=== PATIENT | male | born 1945 | race Caucasian/White ===

== ENCOUNTER 2019-04-01 13:31 | Outpatient (REF) | payer MEDICARE, OTHER, SELFPAY ==
[2019-04-01 14:47] LABS: TSH (W/Ref FT4) 1.94 uIU/mL (0.358-3.74)
[2019-04-02 11:17] LABS: Lyme Ab w Rflx to Lyme Confirm Negative
== END 2019-04-01 13:51 ==
LOC: NCHCN 13:31
PROVIDERS: PCP Family Medicine; Visit Provider Family Medicine
DX: R53.83 Other fatigue (principal); W57.XXXA Bitten or stung by nonvenomous insect and other nonvenomous arthropods, initial encounter; T14.8XXA Other injury of unspecified body region, initial encounter
CPT/HCPCS: 84443; 86618

== ENCOUNTER 2019-05-22 12:26 | Emergency (ER) | payer MEDICARE, OTHER, SELFPAY ==
[2019-05-22 12:30] VITALS: BP 161/96; PULSE 77; RESP 14; TEMP 36.2; O2SAT 97
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
[2019-05-22] MEDS: Bacitracin 30 GM TUBE TP (12:43)
[2019-05-22] MEDS: HYDROcodone 5/Acetaminophen 325 TAB PO (12:43)
--- NOTE | 2019-05-22 14:03 | NUR.NOTE ---
Nursing Note: Wound cleaned with sterile soap and water. Excess skin and debris removed. Wound dried, Bacitracin applied followed by sterile Vaseline gauze, sterile ABD pads, and cling. Pt instructed on the use of antibiotic ointment and re-dressing the wound. PT verbalized understanding. DC instructions provided along with prescriptions.
== END 2019-05-22 14:00 | disposition home or self-care (01) ==
PROVIDERS: Emergency Provider Emergency Medicine; PCP Family Medicine
DX: T24.311A Burn of third degree of right thigh, initial encounter (principal); X04.XXXA Exposure to ignition of highly flammable material, initial encounter
CPT/HCPCS: 16020

== ENCOUNTER 2020-11-30 16:25 | Outpatient (REF) | payer MEDICARE, OTHER, SELFPAY ==
[2020-11-30 15:48] LABS: Hemoglobin A1C 5.7 % (<5.7)
[2020-11-30 15:56] LABS: BUN 15 mg/dL (7-18); CREATININE 0.9 mg/dL (0.70-1.30); Calcium 8.9 mg/dL (8.5-10.1); Calculated LDL 147 mg/dL (<100); Chloride 106 mmol/L (98-107); Cholesterol 248 mg/dL (<200); Glucose 109 mg/dL (74-106); HDL Cholesterol 77 mg/dL (40-60); Potassium 3.8 mmol/L (3.5-5.1); Sodium 142 mmol/L (136-145); Triglyceride 120 mg/dL (<150)
[2020-12-01 09:47] LABS: Hepatitis C Ab w Rflx HCV PCR Negative (Negative)
== END 2020-11-30 16:26 | disposition home or self-care (01) ==
LOC: NCHCN 16:25
PROVIDERS: PCP Family Medicine; Visit Provider Family Medicine
DX: R73.01 Impaired fasting glucose (principal); E78.5 Hyperlipidemia, unspecified; Z11.59 Encounter for screening for other viral diseases
CPT/HCPCS: 80048; 80061; 86803; 83036

== ENCOUNTER 2021-09-14 11:13 | Outpatient (REF) | payer MEDICARE, OTHER, SELFPAY ==
[2021-09-14 16:05] LABS: Hemoglobin A1C 5.5 % (<5.7)
[2021-09-14 16:07] LABS: Anion Gap 10.2 mmol/L (3-11); BUN 20 mg/dL (7-18); CO2 24.8 mmol/L (21.0-32.0); CREATININE 0.8 mg/dL (0.70-1.30); Calcium 9.1 mg/dL (8.5-10.1); Chloride 106 mmol/L (98-107); Glucose 114 mg/dL (74-106); Potassium 4.2 mmol/L (3.5-5.1); Sodium 141 mmol/L (136-145)
== END 2021-09-14 11:14 | disposition home or self-care (01) ==
LOC: NCHCN 11:13
PROVIDERS: PCP Family Medicine; Visit Provider Family Medicine
DX: R73.03 Prediabetes (principal); I10 Essential (primary) hypertension; Z00.00 Encounter for general adult medical examination without abnormal findings
CPT/HCPCS: 80048; 83036

== ENCOUNTER 2023-12-11 17:36 | Outpatient (REF) | payer MEDICARE, OTHER, SELFPAY ==
[2023-12-11 18:00] LABS: HCT 36.6 % (40.0-50.0); MCH 29.1 pg (27.0-33.0); MCHC 32.8 % (32.0-36.0); MCV 89 fL (80-95); MPV 9.8 fL (8.0-11.0); Platelet Count 251 10^3/uL (130-400); RBC 4.12 10^6/uL (4.36-5.78); RDW 14.4 % (11.8-14.1); RDW-SD 46.5 fL; WBC 6.41 10^3/uL (4.4-10.8)
[2023-12-11 18:42] LABS: Ferritin 54 ng/mL (26-388); Vitamin B12 172 pg/mL (193-986)
== END 2023-12-11 17:37 | disposition home or self-care (01) ==
LOC: NCHCN 17:36
PROVIDERS: PCP Family Medicine; Visit Provider Family Medicine
DX: D50.9 Iron deficiency anemia, unspecified (principal); E53.8 Deficiency of other specified B group vitamins
CPT/HCPCS: 85027; 82607; 82728

== ENCOUNTER 2024-06-12 16:14 | Outpatient (REF) | payer MEDICARE, OTHER, SELFPAY ==
[2024-06-12 19:27] LABS: HCT 36.1 % (40.0-50.0); HGB 11.2 g/dL (13.5-17.5); MCH 28.7 pg (27.0-33.0); MCV 93 fL (80-95); MPV 9.8 fL (8.0-11.0); Platelet Count 394 10^3/uL (130-400); RDW 14.7 % (11.8-14.1); RDW-SD 49.8 fL; WBC 10.95 10^3/uL (4.4-10.8)
[2024-06-12 20:06] LABS: Vitamin B12 1616 pg/mL (193-986)
[2024-06-17 10:21] LABS: Methylmalonic Acid 0.18 nmol/mL (<=0.40)
== END 2024-06-12 16:15 | disposition home or self-care (01) ==
LOC: NCHCN 16:14
PROVIDERS: PCP Family Medicine; Visit Provider Family Medicine
DX: E53.9 Vitamin B deficiency, unspecified (principal)
CPT/HCPCS: 80186; 85027; 82607

== ENCOUNTER 2024-09-11 15:15 | Outpatient (REF) | payer MEDICARE, OTHER, SELFPAY ==
--- OUTSIDE RECORDS SUMMARY | 2024-09-11 15:18 | XMS_ITS | Encounter Summary ---
Author Organization [place] [address] Care Team Providers Care Preschool Program Director Name Role Phone Kennedi Shaver MD Primary Care Provider [phone] Encounter Details Date Type Department Care Team (Latest Contact Info) Description 07/21/2024 Travel Social History Tobacco Use Types Packs/Day Years Used Date Smoking Tobacco: Former Cigarettes 1977 Smokeless Tobacco: Never Alcohol Use Standard Drinks/Week Comments Yes 14 (1 standard drink = 0.6 oz pu re alcohol) 1 drink a day IPV Inpatient Questions Answer Date Recorded Does Anyone Try to Keep You From Having Contact with Others or Doing Things Outside Your Home? no 05/29/2024 Feels Threatened by Someone no 05/02 Feels Unsafe at Home or Work/School no 05/29/2024 Physical Signs of Abuse Present no 05/29/2024 Sex and Gender Information Value Date Recorded Sex Assigned at Not on file Gender Identity Not on file Sexual Orientation Not on file documented as of this encounter Plan of Treatment Upcoming Encounters Date Type Department Care Team (Latest Contact Info) Description 09/29/2024 4:30 PM [facility] Hospital [facility] [place] [phone] Lizet Wilkes MD [facility] [place] [address] 09/29/2024 4:30 PM EST - 09/29/2024 5:00 PM EST Surgery Gastroenterology at [place] [phone] Lizet Wilkes MD [facility] [place] [address] EGD, UPPER GI ENDOSCOPY (WRVU 2.09) 11/09/2024 10:00 AM EST Laboratory Appointment Lab at [facility] Hematology Oncology [address] [place], [place] [phone] 11/09/2024 11:00 AM EST Office Visit Hematology and Oncology at [place] [phone] Faith Caba MD [facility] DR HEMATOLOGY [place] [address] 11/09/2024 12:00 PM EST Appointment Hematology [place] [phone] Scheduled Procedures Name Priority Associated Diagnoses Date/Ti me EGD, UPPER GI ENDOSCOPY (WRVU 2.09) Gastroesophageal reflux disease with esophagitis, unspecified whether hemorrhage 09/29/2024 4:30 PM EST documented as of this encounter Goals Goal Patient Goal Type Associated Problems Recent Progress Patient-Stated? Author [facility] Medication Compliance and Understanding Patient Facing Action Plan Curly Nicolas, [facility] Note: The patient? s goal is to continue positive results of oral chemotherapy by maintaining improved labs PSA or stable scans in clinic for the upcoming year. documented as of this encounter Visit Diagnoses Not on filedocumented in this encounter Care Teams Preschool Program Director Relationship Specialty Start Date End Date Kennedi Shaver MD [facility] [address] [place] [address] PCP - General Family Medicine 06/25/24 documented as of this encounter
--- OUTSIDE RECORDS SUMMARY | 2024-09-11 15:18 | XMS_ITS | Encounter Summary ---
Author Organization [facility] [place] [address] Care Team Providers Care Wax Coating Machine Tender Name Role Phone Kennedi Sahver MD Primary Care Provider [phone] Reason for Visit * Reason Comments Follow-up Encounter Details Date Type Department Care Team (Late st Contact Info) Description 04/28/2024 2:30 PM EDT Office Visit Hematology [place] [phone] HEMATOLOGY AND ONCOLOGY [place], [place] [id number] Neoplasm of prostate, 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; Androgen deprivation therapy; Osteopenia, unspecified location; Anemia, unspecified type Social History Tobacco Use Types Packs/Day Years Used Date Smoking Tobacco: Former Cigarettes 1977 Smokeless Tobacco: Never Alcohol Use Standard Drinks/Week Comments Yes 14 (1 standard drink = 0.6 oz pu re alcohol) 1 drink a day [facility] Inpatient Questions Answer Date Recorded Does Anyone Try to Keep You From Having Contact with Others or Doing Things Outside Your Home? no 12/19/2022 Feels Threatened by Someone Not on file 11/29 Feels Unsafe at Home Not on file 12/19/2022 Physical Signs of Abuse Present Not on file 12/19/2022 Sex and Gender Information Value Date Recorded Sex Assigned at Not on file Gender Identity Not on file Sexual Orientation Not on file documented as of this encounter Last Filed Vital Signs Vital Sign Reading Time Taken Comments Blood Pressure 122/60 04/28/2024 2:22 PM EDT Pulse 89 04/28/2024 2:22 PM EDT Temperature 37.1 ??C (98.8 ??F) 04/28/2024 2:22 PM ED T Respiratory Rate 18 04/28/2024 2:22 PM EDT Oxygen Saturation 98% 04/28/2024 2:22 PM EDT Inhaled Oxygen Concentration - - Weight 80.5 kg (177 lb 7.5 oz) 04/28/2024 2:22 P M EDT Height 179.2 cm (5' 10.55) 04/28/2024 2:22 PM E DT Body Mass Index 25.07 04/28/2024 2:22 PM EDT documented in this encounter Progress Notes * Deborah Hector, BARTOLO - 04/28/2024 2:30 PM EDT Images from the original note were not included. [facility] Medicine Medical Oncology [place] [id number] ONCOLOGY FOLLOW UP VISIT DIAGNOSIS: Metastatic prostate cancer to bone and LNs ONCOLOGIC HX: P/w years of worsening LUTS initially responsive to finasteride but then progressed In December 2016, p/w L facial tingling and new painless subcut nodule Chest X-ray was normal CBC and on 01/18/2017 was normal US of neck on 02/05/17 showed multiple abnormal LNs largest 4.9 x 2.8 x 1.6 cm. MRi on 02/08/17 corroborated above with node cmpressing and slightly narrowed L jugular v. CT Chest/Abd/Pelvis on 02/19/17 showed enlarged aortocaval and para-aortic nodes (up to 3.9 x 2.8 cm), enlarged irregular prostate gland, and indeterminate small sclerotic focus in theposterior right iliac wing. PSA on 02/19/2016 was 207 (on finasteride). CBC and CMP was normal with AlkPhos 100 and Cr 0.98 Bone Scan on 02/26/17: intensely increased activity in the superolateral aspect of the right orbit, the distal aspect of the shaft of the right femur, and right seventh rib Level V node Bx on 03/04/2017: Clusters of epithelioid cells with NKX 3.1 immunoreactivity compatibe with metastatic prostate. TTF1 was negative Started on casodex and lupron injection 7.5 mg on 03/20/2017 Added abiraterone/pred 04/2017 PSA Ramesh is undetectable (achieved since 09/2018) DXA 10/10/21: osteopenia, referred to Endo 12/2023- stopped taking abiraterone/prednisone due to swallowing difficulties Chart review: > 10 minutes spent reviewing chart prior to visit -03/17/24 Upper endoscopy: large hiatal, esophagitis, and stricture at the GE junction were found, biopsies taken. Alli fundoplication intact. -Colonoscopy:severe diverticulosis from sigmoid to cecum, 5 polyps removed Path: DIAGNOSIS A - GE Junction bx, biopsy (Multiple): - Squamocolumnar junctional mucosa (cardia type) with ulceration, mild chronic inflammation and reactive changes. - There is no evidence of intestinal metaplasia. B - Esophageal bxs, biopsy (Multiple): - Ulcerative esophagitis. C - Ascending colon polyps 10mm, 6mm, resection: - Fragments of sessile serrated polyp/adenoma(s). D - Transverse colon polyp 5mm, 4mm, resection: - Fragments of tubular adenoma(s). E - Sigmoid colon polyp 4mm, resection: - Hyperplastic polyp. HPI: Chidi is here for f/u. He has been off the edmar/pred x 3 months now and is a bit anxious to see what his PSA is. Had the above GI work up. Is supposed to have f/u in a month. Taking pantoprazole BID now. Swallowing is still compromised, but if he's slow and focused, and washes food down, he's okay.No urinary or bowel concerns. Decreased energy. Takes Provigil, helps w/energy, allows him to choose when to write. 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 REVIEW OF SYSTEMS: -Both knees hurting more -Chronic R upper arm/shoulder pain, takes Tylenol, feels it's residual from COVID shot As noted above; all other systems were reviewed and found to be negative. PAST MEDICAL HISTORY: 1. As above 2. GERD and Sol's esophagus S/p Alli Fundoplication 3. ELevated fasting glusoce 4. S/p distant appendectomy 5. S/p tonsilectomy 6. Hypertension MEDS: Medications 04/28/24 4412 Medication Sig Taking? predniSONE (Deltasone) 5 mg tablet Take 1 tablet by mouth daily. Yes irbesartan (AVAPRO) 75 mg Tablet Take 75 mg by mouth every evening. Yes finasteride (Proscar) 5 mg Tablet Take 1 tablet by mouth daily. Yes tamsulosin (Flomax) 0.4 mg Capsule Take 1 capsule by mouth daily. Yes Provigil 100 mg Tablet take 1 tablet by mouth once daily Yes pantoprazole EC (Protonix) 40 mg Tablet, Delayed Release (E.C.) take 1 tablet by mouth twice a day Yes zolpidem (AMBIEN) 10 mg Tablet take 1 tablet by mouth at bedtime Yes leuprolide acetate (LUPRON DEPOT IM) Inject into the muscle. Once every 3 months, dosage unknown Yes abiraterone (Zytiga) 500 mg tablet Take 2 tablets (1,000 mg) by mouth daily. Brand name only. Indications: metastatic castration-sensitive prostate cancer Patient not taking: Reported on 04/28/2024 acetaminophen (Tylenol) 500 mg tablet Take 2 tablets by mouth every 8 hours. Continue the Tylenol around the clock for 10 days after surgery, (12/29/22). Then may take if needed per package insert. Do not take more than 3,000 mg of Tylenol in 24 hours. Patient not taking: Reported on 04/28/2024 ALLERGY: Allergies Allergen Reactions Lisinopril Other (See Comments) FAMILY HX: Reviewed no change SOCIAL HX: Reviewed - no change PHYSICAL EXAM: ECOG PS: 0 General: NAD, pleasant, well-appearing Eyes: Non-injected, anicteric. Resp: Effort normal. No respiratory distress. Skin: Skin is warm and dry. No rash or lesions noted on limited exam. No pallor. Musculoskeletal: Ambulatory without assist. Extremities: No distal edema noted. Neurological: Alert & oriented, no focal deficits. Psych: Conversant, normal mood and affect. Vitals reviewed. BP 122/60 (Patient Position: Sitting) Pulse 89 Temp 37.1 ??C (98.8 ??F) (Temporal) Resp 18 Ht 179.2 cm (5' 10.55) Wt 80.5 kg (177 lb 7.5 oz) SpO2 98% BMI 25.07 kg/m?? Wt Readings from Last 3 Encounters: 04/28/24 80.5 kg (177 lb 7.5 oz) 03/17/24 74.8 kg (165 lb) 01/28/24 80.5 kg (177 lb 7.5 oz) LABS: WBC 10.8, ANC 8.6 (incr), Hb 11.3 (decr), Plts 438 (incr) CMP normal PSA remains undetectable IMAGING STUDIES: No new ASSESSMENT AND PLAN: 78 y.o. M has metastatic prostate cancer with extensive disease involving nodes and bones. He started ADT in February, and added abiraterone in April,. He started having difficulties swallowing the abiraterone in the December,, so has been holding it (and the prednisone) since then due to swallowing issues. Clinically doing well, no sx relatable for cancer. PSA remains undetectable. He was reassured by this. Given swallowing issues, he cannot resume the abiraterone. I will discuss w/Dr. Caba to determine if he should switch therapy or just continue with the Lupron for now and monitoring PSA. Addendum: discussed case w/Dr. Caba who recommends, given pt's persistent swallowing issues, holding off on any additional/alternate oral therapy, continuing w/ADT alone, and monitoring PSA as planned. Anemia: Hb has dipped again. Hx of GI bleed.. No bleeding symptoms. He reports PCP is monitoring. Advise f/u with GI (reports was supposed to be scheduled next month for f/u, but no appts yet). Advised to call and schedule. Osteopenia on DEXA 10/10/2021. Taking Ca/D. Repeat DEXA scheduled for 04/3024/ F/u in 3 months for labs, visit, Lupron Mr. Carbone asked appropriate questions and verbalized good understanding of and agreement with theplan. I encouraged him to call anytime with questions or concerns and he agreed. Deborah Hector APRN Oncology documented in this encounter Plan of Treatment Upcoming Encounters Date Type Department Care Team (Latest Contact Info) Description 09/29/2024 4:30 PM EST Hospital Encounter [place] [phone] Lizet Wilkes MD [facility] [place] [address] 09/29/2024 4:30 PM EST - 09/29/2024 5:00 PM EST Surgery [place] [phone] Lizet Wilkes MD [facility] [place] [place] [address] EGD, UPPER GI ENDOSCOPY (WRVU 2.09) 11/09/2024 10:00 AM EST Laboratory Appointment [place] [facility] [address] [place] [phone] 11/09/2024 11:00 AM EST Office Visit Hematology [place] [phone] Faith Caba MD [facility] DR HEMATOLOGY [place] [address] 11/09/2024 12:00 PM EST Appointment Hematology [place] [phone] Scheduled Procedures Name Priority Associated Diagnoses Date/Ti me EGD, UPPER GI ENDOSCOPY (WRVU 2.09) Gastroesophageal reflux disease with esophagitis, unspecified whether hemorrhage 09/29/2024 4:30 PM EST documented as of this encounter Goals Goal Patient Goal Type Associated Problems Recent Progress Patient-Stated? Author DH Home Medication Compliance and Understanding Patient Facing Action Plan Curly Nicolas, [facility] Note: The patient? s goal is to continue positive results of oral chemotherapy by maintaining improved labs PSA or stable scans in clinic for the upcoming year. documented as of this encounter Results * (ABNORMAL) Testosterone, total (08/04/2024 11:59 AM EST) Pathologist [facility] Testosterone <0.12(L) 1.93 - 7.40 ng/ml 08/04/2024 12:58 PM EST [facility] Blood VENOUS BLOOD SPECIMEN / Unknown Venipuncture / Unknown 08/04/2024 11:59 AM EST 08/04/2024 11:59 AM EST Deborah Hector APRN CHEMISTRY ORDERABL ES Performing Organization Address [facility] Co de Phone Number [facility] [place] [address] * PSA (Ultrasensitive) (08/04/2024 11:59 AM EST) [facility] Prostate Specific Antigen (Ultrasensitive) <0.01 0.00-4.00 ng/mL ng/ml 08/04/2024 1:03 PM EST [facility] Comment:The reference interv al (0 - 4 ng/mL) is applicable to individuals with an intact prostate. Values within this reference interval may indicate recurrence in those who have undergone radical prostatectomy. This result was generated using a Kenneth Paz immunoassay. Results obtained from other methods or manufacturers cannot be used interchangeably with this method. Blood VENOUS BLOOD SPECIMEN / Unknown Venipuncture / Unknown 08/04/2024 11:59 AM EST 08/04/2024 11:59 AM EST Deborah Hector APRN CHEMISTRY ORDERABL ES Performing Organization Address [facility] Co de Phone Number [facility] [place] [address] * Comprehensive metabolic panel (08/04/2024 11:59 AM EST) Pathologist [facility] Glucose 105 65 - 199 mg/dL 08/04/2024 1:03 PM EST [facility] Comment:Glucose Concentratio n >=200 mg/dL plus symptoms is consistent with Diabetes Mellitus. Blood Urea Nitrogen 19 10 - 20 mg/dL 08/04/2024 1:[address] [facility] Creatinine 0.95 0.80 - 1.50 mg/dL 08/04/2024 1:[address] [facility] Sodium 138 135 - 145 mMol/L 08/04/2024 1:[address] [facility] Potassium 4.8 3.5 - 5.0 mMol/L 08/04/2024 1:[address] [facility] Chloride 104 98 - 107 mMol/L 08/04/2024 1:[address] [facility] Carbon Dioxide 24 22 - 31 mMol/L 08/04/2024 1:[address] [facility] Anion Gap 10 5 - 15 mMol/L 08/04/2024 1:[address] [facility] Calcium 9.2 8.5 - 10.5 mg/dL 08/04/2024 1:[address] [facility] Protein, Total 7.5 6.1 - 8.0 g/dL 08/04/2024 1:[address] [facility] Albumin 4.0 3.2 - 5.2 g/dL 08/04/2024 1:[address] [facility] Aspartate Aminotransferase 13 <=39 unit/L 08/04/2024 1:[address] [facility] Alanine Aminotransferase 7 0 - 55 unit/L 08/04/2024 1:[address] [facility] Alkaline Phosphatase 117 40 - 130 unit/L 08/04/2024 1:[address] [facility] Bilirubin, Total 0.3 <=1.3 mg/dL 08/04/2024 1:[address] [facility] Est Glomerular Filtration Rate - Male 81 mL/min/1. 73 m?? 08/04/2024 1:[address] [facility] Comment: This patient's estimated GFR was calculated using the 2020 CKD-EPI equation. The estimated GFR can vary from the measured GFR by up to 30% in the absence of rapidly changing kidney function. Assessment of the estimated GFR is not appropriate when creatinine concentrations are rapidly changing. For clinical situations in which a more precise estimate of GFR is necessary, consider alternative methods of GFR estimation such as a 24-hour urine creatinine clearance. Assignment of CKD stage 1 - 5 for patients with an eGFR near the transition point between stages may be based on clinical assessment of muscle mass and symptoms in addition to eGFR. Link: eGFR Calculator [employer] Fasting Status No 08/04/2024 1:[address] [facility] Blood VENOUS BLOOD SPECIMEN / Unknown Venipuncture / Unknown 08/04/2024 11:59 AM EST 08/04/2024 11:59 AM EST Deborah Hector CNA CAREGIVER CHEMISTRY ORDERABL ES [facility] [place] [address] * (ABNORMAL) CBC (with Diff) (08/04/2024 11:59 AM EST) White Blood Cell 9.63(H) 4.00 - 9.50 x10(3)/mc L 08/04/2024 12:[address] [facility] Red Blood Cell 3.80(L) 4.58 - 5.54 x10(6)/mc L 08/04/2024 12:[address] [facility] Hemoglobin 10.3(L) 13.7 - 16.5 g/dL 08/04/2024 12:[address] [facility] Hematocrit 33.0(L) 40.5 - 48.5 % 08/04/2024 12:[address] [facility] Mean Cell Volume 86.8 82.9 - 93.1 fL 08/04/2024 12:[address] [facility] Mean Cell Hemoglobin 27.1(L) 27.5 - 32.1 pg 08/04/2024 12:[address] [facility] Mean Cell Hemoglobin Concentration 31.2(L) 32.0 - 35.7 g/dL 08/04/2024 12:[address] [facility] Platelet 396(H) 145 - 357 x10(3)/mc L 08/04/2024 12:[address] [facility] Mean Platelet Volume 9.0 7.6 - 12.9 fL 08/04/2024 12:[address] [facility] RDW Standard Deviation 44.9 36.0 - 45.0 fL 08/04/2024 12:[address] [facility] RDW coefficient of variation 14.1(H) 11.4 - 13.8 % 08/04/2024 12:[address] [facility] NRBC% auto 0.0 % 08/04/2024 12:[address] [facility] NRBC Absolute <0.01 <0.01 x10(3)/mc L 08/04/2024 12:[address] [facility] Neutrophil % 71.9 % 08/04/2024 12:[address] [facility] Neutrophil Absolute (ANC) - Automated 6.93(H) 1.70 - 6.10 x10(3)/mc L 08/04/2024 12:[address] [facility] Lymph % 15.5 % 08/04/2024 12:[address] [facility] Lymph Absolute 1.49 0.90 - 3.20 x10(3)/mc L 08/04/2024 12:[address] [facility] Monocyte % 9.7 % 08/04/2024 12:[address] [facility] Monocyte Absolute 0.93(H) 0.30 - 0.90 x10(3)/mc L 08/04/2024 12:[address] [facility] Eos % 2.2 % 08/04/2024 12:[address] [facility] Eos Absolute 0.21 0.00 - 0.40 x10(3)/mc L 08/04/2024 12:[address] [facility] Basophil % 0.4 % 08/04/2024 12:26 PM EST [facility] Baso Absolute 0.04 0.00 - 0.10 x10(3)/mc L 08/04/2024 12:26 PM EST [facility] Immature Gran % 0.3 % 12:26 PM EST [facility] Immature Gran Absolute <0.04 0.00 - 0.04 x10(3)/mc L 08/04/2024 12:26 PM EST [facility] Blood VENOUS BLOOD SPECIMEN / Unknown Venipuncture / Unknown 08/04/2024 11:59 AM EST 08/04/2024 11:59 AM EST Deborah Hector CNA CAREGIVER HEMATOLOGY ORDERAB LES Performing Organization Address City/State/[facility] Co de Phone Number [facility] [place] [address] documented in this encounter Visit Diagnoses Diagnosis Neoplasm of prostate, 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 Androgen deprivation therapy Encounter for therapeutic drug monitoring Osteopenia, unspecified location Anemia, unspecified type Gastroesophageal reflux disease with esophagitis, unspecified whether hemorrhage documented in this encounter Care Teams Wax Coating Machine Tender Relationship Specialty Start Date End Date Kennedi Shaver MD [address] [place] [address] PCP - General Family Medicine 08/02/20 06/24/24 documented as of this encounter
--- OUTSIDE RECORDS SUMMARY | 2024-09-11 15:18 | XMS_ITS | Encounter Summary ---
Author Organization [facility] Address [facility] [place] [address] Care Team Providers Care Furniture Polisher Name Role Phone Kenndei Shaver MD Primary Care Provider Encounter Details Date Type Department Care Team (Latest Contact Info) Description 07/21/2024 3:15 PM EDT - 07/21/2024 11:59 PM EDT Hospital Encounter XRay at [address] [place] [phone] Dev Mathis MD [facility] OR[place]OP[place] [address] Right shoulder pain, unspecified chronicity Discharge Disposition: Home Social History Tobacco Use Types Packs/Day Years Used Date Smoking Tobacco: Former Cigarettes 1977 Smokeless Tobacco: Never Alcohol Use Standard Drinks/Week Comments Yes 14 (1 standard drink = 0.6 oz pu re alcohol) 1 drink a day [facility] Inpatient Questions Answer Date Recorded Does Anyone [...] on file documented as of this encounter Medications at Time of Discharge Medication Sig Dispensed Refills Start Date End Date FeroSuL 325 mg (65 mg iron) tablet Take 1 tablet by mouth Daily at Noon. 07/20/2024 mecobalamin, vitamin B12, 1,000 mcg Tablet, Rapid Dissolve Place 1 tablet under the tongue daily. 02/17/2024 sildenafiL (Viagra) 50 mg tablet Take 50 mg by mouth as needed. 06/14/2014 acetaminophen (Tylenol) 500 mg tablet Take 2 tablets by mouth every 8 hours. Continue the Tylenol around the clock for 10 days after surgery, (12/29/22). Then may take if needed per package insert. Do not take more than 3,000 mg of Tylenol in 24 hours. 12/20/2022 irbesartan (AVAPRO) 75 mg Tablet Take 75 mg by mouth every evening. 09/24/2022 finasteride (Proscar) 5 mg Tablet Take 1 tablet by mouth daily. 90 tablet 3 08/17/2022 tamsulosin (Flomax) 0.4 mg Capsule Take 1 capsule by mouth daily. 90 tablet 3 08/17/2022 Provigil 100 mg Tablet take 1 tablet by mouth once daily 09/22/2020 pantoprazole EC (Protonix) 40 mg Tablet, Delayed Release (E.C.) take 1 tablet by mouth twice a day 08/22/2020 zolpidem (AMBIEN) 10 mg Tablet take 1 tablet by mouth at bedtime 09/15/2020 leuprolide acetate (LUPRON DEPOT IM) Inject into the muscle. Once every 3 months, dosage unknown abiraterone (Zytiga) 500 mg tabletIndications:meta static castration-sensitive prostate cancer Take 2 tablets (1,000 mg) by mouth daily. Brand name only. Indications: metastatic castration-sensitive prostate cancer 60 tablet 11 09/25/2023 08/03/2024 predniSONE (Deltasone) 5 mg tablet Take 1 tablet by mouth daily. 30 tablet 11 09/25/2023 08/03/2024 documented as of this encounter Plan of Treatment Upcoming Encounters Date Type Department Care Team (Latest Contact Info) Description 09/29/2024 4:30 PM EST Hospital Encounter [place] [phone] Lizet Wilkes MD [facility] [place] [address] 09/29/2024 4:30 PM EST - 09/29/2024 5:00 PM EST [place] [phone] Lizet Wilkes MD [facility] [place] [address] EGD, UPPER GI ENDOSCOPY (WRVU 2.09) 11/09/2024 10:00 AM EST Laboratory Appointment Lab [place] [facility] [place] [address] [place] [phone] 11/09/2024 11:00 AM EST Office Visit Hematology [place] [phone] Faith Caba MD [facility] [address] [place] [address] 11/09/2024 12:00 PM EST Appointment Hematology and Oncology at [place] [phone] Scheduled Procedures Name Priority Associated Diagnoses Date/Ti nm EGD, UPPER GI ENDOSCOPY (WRVU 2.09) Gastroesophageal reflux disease with esophagitis, unspecified whether hemorrhage 09/29/2024 4:30 PM EST documented as of this encounter Goals Goal Patient Goal Type Associated Problems Recent Progress Patient-Stated? Author DH Home Medication Compliance and Understanding Patient Facing Action Plan Curly Nicolas, [facility] Note: The patient? s goal is to continue positive results of oral chemotherapy by maintaining improved labs PSA or stable scans in clinic for the upcoming year. 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 The glenohumeral joint is severely involved. Thank you for letting us participate in the care of this patient. ??If you are a health care provider and have any questions regarding this report, please contact the number below. ??For patients who have questions please contact the health home care coordinator that requested your imaging first. ? Narrative 07/21/2024 4:26 PM EDT EXAMINATION: XR SHOULDER RIGHT (GENERIC) CLINICAL HISTORY: right shoulder pain follow up M25.511, Pain in right shoulder TECHNIQUE: AP, Grashey, scapular Y and axillary of the right shoulder COMPARISON: January 17, 2024 FINDINGS: There is severe narrowing of the glenohumeral joint. Also seen is subchondral sclerosis and a large humeral head osteophyte. The acromioclavicular joint is moderately narrowed. There has been no change in appearance of the shoulder. Procedure Note German Hoffman MD - 07/21/2024 EXAMINATION: XR SHOULDER RIGHT (GENERIC) CLINICAL HISTORY: right shoulder pain follow up M25.511, Pain in right shoulder TECHNIQUE: AP, Grashey, scapular Y and axillary of the right shoulder COMPARISON: January 17, 2024 FINDINGS: There is severe narrowing of the glenohumeral joint. Also seen issubchondral sclerosis and a large humeral head osteophyte. The acromioclavicular joint is moderately narrowed. There has been no change in appearance of the shoulder. IMPRESSION Osteoarthritis of the right shoulder is present without change. Theglenohumeral joint is severely involved. Thank you for letting us participate in the care of this patient. If youare a health care provider and have any questions regarding this report,please contact the number below. For patients who have questions please contactthe health home care coordinator that requested your imaging first. Electronically signed by: German Hoffman MD, [facility]([phone]), at 07/21/2024 4:26 PM Dev Mathis MD IMG DX ORDERABLES documented in this encounter Visit Diagnoses Diagnosis Right shoulder pain, unspecified chronicity Gastroesophageal reflux disease with esophagitis, unspecified whether hemorrhage documented in this encounter Care Teams Furniture Polisher Relationship Specialty Start Date End Date Kennedi Shaver MD [address] [place] [address] PCP - General Family Medicine 06/25/24 documented as of this encounter
--- OUTSIDE RECORDS SUMMARY | 2024-09-11 15:18 | XMS_ITS | Encounter Summary ---
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 Social History Tobacco Use Types Packs/Day Years Used Date Smoking Tobacco: Former Cigarettes 1977 Smokeless Tobacco: Never Alcohol Use Standard Drinks/Week Comments Yes 14 (1 standard drink = 0.6 oz pu re alcohol) 1 drink a day [facility] Inpatient Questions Answer Date Recorded Does [...] 4:30 PM EST Hospital En[place] [phone] Lizet Wilkes MD [facility] [place] [address] 09/29/2024 4:30 PM EST - 09/29/2024 5:00 PM EST [place] [phone] Lizet Wilkes MD [facility] [address] EGD, UPPER GI ENDOSCOPY (WRVU 2.09) 11/09/2024 10:00 AM EST Laboratory Appointment Lab [place] [facility] [place] [address] [place] [address] [phone] 11/09/2024 11:00 AM EST Office Visit [place]ology [place] [phone] Faith Caba MD [facility] DR HEMATOLOGY [place] [address] 11/09/2024 12:00 PM EST Appointment [place]ematology [place] [phone] Scheduled Procedures Name Priority Associated Diagnoses Date/Ti ct EGD, UPPER GI ENDOSCOPY (WRVU 2.09) Gastroesophageal reflux disease with esophagitis, unspecified whether hemorrhage 09/29/2024 4:30 PM EST documented as of this encounter Goals Goal Patient Goal Type Associated Problems Recent Progress Patient-Stated? Author DH Home Medication Compliance and Understanding Patient Facing Action Plan Curly Nicolas, [facility] Note: The patient? s goal is to continue positive results of oral chemotherapy by maintaining improved labs PSA or stable scans in clinic for the upcoming year. 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 COMPREHENSIVE METABOLIC PANEL Routine 08/04/2024 11:59 AM EST Neoplasm of prostate, 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 documented in this encounter Results * (ABNORMAL) CBC (with Diff) (08/04/2024 11:59 AM EST) White Blood Cell 9.63(H) 4.00 - 9.50 x10(3)/mc L 08/04/2024 12:26 PM [facility] Red Blood Cell 3.80(L) 4.58 - 5.54 x10(6)/mc L 08/04/2024 12:26 PM [facility] Hemoglobin 10.3(L) 13.7 - 16.5 g/dL 08/04/2024 12:26 PM [facility] Hematocrit 33.0(L) 40.5 - 48.5 % 08/04/2024 12:26 PM [facility] Mean Cell Volume 86.8 82.9 - 93.1 fL 08/04/2024 12:26 PM [facility] Mean Cell Hemoglobin 27.1(L) 27.5 - 32.1 pg 08/04/2024 12:26 PM [facility] Mean Cell Hemoglobin Concentration 31.2(L) 32.0 - 35.7 g/dL 08/04/2024 12:26 PM [facility] Platelet 396(H) 145 - 357 x10(3)/mc L 08/04/2024 12:26 PM [facility] Mean Platelet Volume 9.0 7.6 - 12.9 fL 08/04/2024 12:26 PM [facility] RDW Standard Deviation 44.9 36.0 - 45.0 fL 08/04/2024 12:26 PM [facility] RDW coefficient of variation 14.1(H) 11.4 - 13.8 % 08/04/2024 12:26 PM [facility] NRBC% auto 0.0 % 08/04/2024 12:26 PM [facility] NRBC Absolute <0.01 <0.01 x10(3)/mc L 08/04/2024 12:26 PM [facility] Neutrophil % 71.9 % 08/04/2024 12:26 PM [facility] Neutrophil Absolute (ANC) - Automated 6.93(H) 1.70 - 6.10 x10(3)/mc L 08/04/2024 12:26 PM [facility] Lymph % 15.5 % 08/04/2024 12:26 PM [facility] Lymph Absolute 1.49 0.90 - 3.20 x10(3)/mc L 08/04/2024 12:26 PM [facility] Monocyte % 9.7 % 08/04/2024 12:26 PM [facility] Monocyte Absolute 0.93(H) 0.30 - 0.90 x10(3)/mc L 08/04/2024 12:26 PM [facility] Eos % 2.2 % 08/04/2024 12:26 PM [facility] Eos Absolute 0.21 0.00 - 0.40 x10(3)/mc L 08/04/2024 12:26 PM [facility] Basophil % 0.4 % 08/04/2024 12:26 PM [facility] Baso Absolute 0.04 0.00 - 0.10 x10(3)/mc L 08/04/2024 12:26 PM [facility] Immature Gran % 0.3 % 12:26 PM [facility] Immature Gran Absolute <0.04 0.00 - 0.04 x10(3)/mc L 08/04/2024 12:26 PM [facility] Blood VENOUS BLOOD SPECIMEN / Unknown Venipuncture / Unknown 08/04/2024 11:59 AM EST 08/04/2024 11:59 AM EST Deborah Hector GREENHOUSE WORKER HEMATOLOGY ORDERAB LES [facility] [place] [address] * Comprehensive metabolic panel (08/04/2024 11:59 AM EST) Glucose 105 65 - 199 mg/dL 08/04/2024 1:03 PM [facility] Comment:Glucose Concentratio n >=200 mg/dL plus symptoms is consistent with Diabetes Mellitus. Blood Urea Nitrogen 19 10 - 20 mg/dL 08/04/2024 1:03 PM [facility] Creatinine 0.95 0.80 - 1.50 mg/dL 08/04/2024 1:03 PM [facility] Sodium 138 135 - 145 mMol/L 08/04/2024 1:03 PM [facility] Potassium 4.8 3.5 - 5.0 mMol/L 08/04/2024 1:03 PM [facility] Chloride 104 98 - 107 mMol/L 08/04/2024 1:03 PM [facility] Carbon Dioxide 24 22 - 31 mMol/L 08/04/2024 1:03 PM [facility] Anion Gap 10 5 - 15 mMol/L 08/04/2024 1:03 PM [facility] Calcium 9.2 8.5 - 10.5 mg/dL 08/04/2024 1:03 PM [facility] Protein, Total 7.5 6.1 - 8.0 g/dL 08/04/2024 1:03 PM [facility] Albumin 4.0 3.2 - 5.2 g/dL 08/04/2024 1:03 PM [facility] Aspartate Aminotransferase 13 <=39 unit/L 08/04/2024 1:03 PM [facility] Alanine Aminotransferase 7 0 - 55 unit/L 08/04/2024 1:03 PM [facility] Alkaline Phosphatase 117 40 - 130 unit/L 08/04/2024 1:03 PM [facility] Bilirubin, Total 0.3 <=1.3 mg/dL 08/04/2024 1:03 PM [facility] Est Glomerular Filtration Rate - Male 81 mL/min/1. 73 m?? 08/04/2024 1:03 PM [facility] Comment: This patient's estimated GFR was [...] Foundation Fasting Status No 08/04/2024 1:03 PM [facility] Blood VENOUS BLOOD SPECIMEN / Unknown Venipuncture / Unknown 08/04/2024 11:59 AM EST 08/04/2024 11:59 AM EST Deborah Hector GREENHOUSE WORKER CHEMISTRY ORDERABL ES [facility] [place] [place] [address] * PSA (Ultrasensitive) (08/04/2024 11:59 AM EST) Prostate Specific Antigen (Ultrasensitive) <0.01 0.00-4.00 ng/mL ng/ml 08/04/2024 1:03 PM EST [facility] Comment:The reference interv al (0 [...] APRN CHEMISTRY ORDERABL ES Performing Organization Address [facility] Co de Phone Number [facility] [place] [address] * (ABNORMAL) Testosterone, total (08/04/2024 11:59 AM EST) Testosterone <0.12(L) 1.93 - 7.40 ng/ml 08/04/2024 12:58 PM EST [facility] Blood VENOUS BLOOD SPECIMEN / Unknown Venipuncture / Unknown 08/04/2024 11:59 AM EST 08/04/2024 11:59 AM EST Deborah Hector GREENHOUSE WORKER CHEMISTRY ORDERABL ES Performing Organization Address City/[facility]/ZIP Co de Phone Number [facility] [place] [address] documented in this encounter Visit Diagnoses Diagnosis Neoplasm of prostate, 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
--- OUTSIDE RECORDS SUMMARY | 2024-09-11 15:18 | XMS_ITS | Encounter Summary ---
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 Discharge Disposition: Home Social History Tobacco Use Types Packs/Day Years Used Date Smoking Tobacco: Former Cigarettes 1977 Smokeless Tobacco: Never Alcohol Use Standard Drinks/Week Comments Yes 14 (1 standard drink = 0.6 oz pu re alcohol) 1 drink a day [facility] Inpatient Questions Answer Date Recorded [...] Sig Dispensed Refills Start Date End Date mecobalamin, vitamin B12, 1,000 mcg Tablet, Rapid [...] 4:30 PM EST Hospital Encounter [place] [address] Lizet Wilkes MD [facility] [place] [address] 09/29/2024 4:30 PM EST - 09/29/2024 5:00 PM EST Surgery Gastroenterology at [place] [phone] Lizet Wilkes MD [facility] [place] [address] EGD, UPPER GI ENDOSCOPY (WRVU 2.09) 11/09/2024 10:00 AM EST Laboratory Appointment Lab at [facility] Hematology Oncology [address] [place] [phone] 11/09/2024 11:00 AM EST Office Visit Hematology [place] [phone] Faith Caba MD [facility] [place] [address] 11/09/2024 12:00 PM EST Appointment Hematology and Oncology at [place] [phone] Scheduled Procedures Name Priority Associated Diagnoses Date/Ti me EGD, UPPER GI ENDOSCOPY (WRVU 2.09) Gastroesophageal reflux disease with esophagitis, unspecified whether hemorrhage 09/29/2024 4:30 PM EST documented as of this encounter Goals Goal Patient Goal Type Associated Problems Recent Progress Patient-Stated? Author DH Home Medication Compliance and Understanding Patient Facing Action Plan Curly Nicolas, [facility] Note: The patient? s goal is to continue positive results of oral chemotherapy by maintaining improved labs PSA or stable scans in clinic for the upcoming year. documented as of this encounter Procedures Procedure Name Priority Date/Time Associated Diagnosis Comments HEMOGRAM Routine 04/28/2024 1:17 PM EDT Neoplasm of prostate, 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 DIFFERENTIAL, AUTOMATED Routine 04/28/2024 1:17 PM EDT Neoplasm of prostate, 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 CBC (WITH DIFF) Routine 04/28/2024 1:17 PM EDT Neoplasm of prostate, 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 TESTOSTERONE, TOTAL Routine 04/28/2024 1 :17 PM EDT Neoplasm of prostate, 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 PSA (ULTRASENSITIVE) Routine 04/28/2024 1:17 PM EDT Neoplasm of prostate, 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 COMPREHENSIVE METABOLIC PANEL Routine 04/28/2024 1:17 PM EDT Neoplasm of prostate, 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 documented in this encounter Results * (ABNORMAL) Differential, Automated (04/28/2024 1:17 PM EDT) Neutrophil % 79.8 % [facility] Neutrophil Absolute 8.60(H) 1.70 - 6.10 x10(3)/mc L [facility] Lymph % 9.7 % [facility] Lymphocytes Abs 1.0 0.9 - 3.2 x10(3)/mc L [facility] Monocyte % 7.0 % [facility] Monocyte Abs 0.8 0.3 - 0.9 x10(3)/mc L [facility] Eos % 2.0 % [facility] Eosinophils Abs 0.2 0.0 - 0.4 x10(3)/mc L [facility] Basophil % 0.4 % [facility] Baso Absolute 0.0 0.0 - 0.1 x10(3)/mc L [facility] Immature Gran % 1.10 % [facility] Comment: Immature granulocytes(IG's)percentage and absolute count will include metamyelocytes, myelocytes, and promyelocytes. Blood smears from CBCs yielding IG's will be scanned manually for concordance. If this scan disagrees with the automated IG or if promyelocytes are noted, a manual differential will be performed. Immature Gran Absolute 0.12(H) 0.00 - 0.04 x10(3)/mc L [facility] Blood 04/28/2024 1:17 PM EDT 04/28/2024 1:22 PM EDT Narrative Resulting Agency Comment Spec In Lab Deborah Hector RUBBER PRESS TENDER HEMATOLOGY ORDERAB LES [facility] [address] * (ABNORMAL) Hemogram (04/28/2024 1:17 PM EDT) White Blood Cell 10.8(H) 4.0 - 9.5 x10(3)/mc L [facility] Red Blood Cell 3.75(L) 4.58 - 5.54 x10(6)/mc L [facility] Hemoglobin 11.3(L) 13.7 - 16.5 g/dL [facility] Hematocrit 33.8(L) 40.5 - 48.5 % [facility] Mean Cell Volume 90.1 82.9 - 93.1 fL [facility] Mean Cell Hemoglobin 30.1 27.5 - 32.1 pg [facility] Mean Cell Hemoglobin Concentration 33.4 32.0 - 35.7 g/dL [facility] Platelet 438(H) 145 - 357 x10(3)/mc L [facility] RDW Standard Deviation 43.8 36.0 - 45.0 fL [facility] RDW coefficient of variation 13.2 11.4 - 13.8 % [facility] Mean Platelet Volume 8.2 7.6 - 12.9 fL [facility] NRBC% auto 0.0 % [facility] NRBC Absolute 0.000 0.000 - 0.000 x10(3)/mc L [facility] Blood 04/28/2024 1:17 PM EDT 04/28/2024 1:22 PM EDT Narrative Resulting Agency Comment Spec In Lab Deborah Hector RUBBER PRESS TENDER HEMATOLOGY ORDERAB LES [facility] [place] [address] * (ABNORMAL) Testosterone, total (04/28/2024 1:17 PM EDT) Testosterone <0.12(L) 1.93 - 7.40 ng/mL [facility] Comment: Pediatric Reference Ranges: ? Males (7 - 18 years) ?Females (8 - 18 years) Balwinder Stage ?ng/ml ? ng/ml ? 1 ? <0.03 ? <0.03 to 0.06 ? 2 ? <0.03 to 4.32 ? <0.03 to 0.10 ? 3 ?0.65 to 7.78 ? <0.03 to 0.24 ? 4 ?1.80 to 7.63 ? <0.03 to 0.27 ? 5 ?1.88 to 8.82 ?0.05 to 0.38 Stated reference ranges derived from review of Kenneth Paz Testosterone II 07/2022, v2.0 Blood 04/28/2024 1:17 PM EDT 04/28/2024 1:22 PM EDT Narrative Resulting Agency Comment Spec In Lab Deborah Hector RUBBER PRESS TENDER CHEMISTRY ORDERABL ES Performing Organization Address [facility] de Phone Number [facility] [place] [address] * PSA (Ultrasensitive) (04/28/2024 1:17 PM EDT) Prostate Specific Antigen (Ultrasensitive) <0.01 0.00 - 4.00 ng/mL [facility] Comment: PLEASE NOTE: The above reference interval is intended for healthy males with an intact prostate. Values within this reference interval may indicate recurrence in men who have undergone radical prostatectomy. This result was generated using a Kenneth Paz immunoassay. ??Results obtained from other methods or manufacturers cannot be used interchangeably with this method. Blood 04/28/2024 1:17 PM EDT 04/28/2024 1:22 PM EDT Narrative Resulting Agency Comment Spec In Lab Deborah Hector APRN CHEMISTRY ORDERABL ES Performing Organization Address [facility] de Phone Number [facility] [place] [address] * Comprehensive metabolic panel (non-fasting) (04/28/2024 1:17 PM EDT) Glucose 115 65 - 199 mg/dL [facility] Comment:Diabetes: >=200 mg/d L plus symptoms Blood Urea Nitrogen 13 10 - 20 mg/dL [facility] Creatinine 0.93 0.80 - 1.50 mg/dL [facility] Sodium 137 135 - 145 mmol/L [facility] Potassium 4.4 3.5 - 5.0 mmol/L [facility] Comment: Please note: ??Patients with WBC >100,000 may have falsely elevated Potassium levels. ??For accurate Potassium quantification in these patients send serum separator tube (gold top) for subsequent determinations. ??Contact the Clinical Chemistry Laboratory if there are any questions. Chloride 102 98 - 107 mmol/L [facility] Carbon Dioxide 22 22 - 31 mmol/L [facility] Anion Gap 13 5 - 15 mmol/L [facility] Calcium 9.0 8.5 - 10.5 mg/dL [facility] Protein, Total 6.7 6.1 - 8.0 g/dL [facility] Albumin 3.6 3.2 - 5.2 g/dL [facility] Aspartate Aminotransferase 18 0 - 39 unit/L [facility] Alanine Aminotransferase 10 0 - 55 unit/L [facility] Alkaline Phosphatase 107 40 - 130 unit/L [facility] Bilirubin, Total 0.3 0.2 - 1.3 mg/dL [facility] Est Glomerular Filtration Rate 84 >=60 mL/min/1. 73 m?? [facility] Comment: This patient's estimated GFR [...] urine creatinine clearance. Assignment of CKD stage 1-5 for patients with an eGFR near the transition point between stages may be based on clinical assessment of muscle mass and symptoms in addition to eGFR. Blood 04/28/2024 1:17 PM EDT 04/28/2024 1:22 PM EDT Narrative Resulting Agency Comment Spec In Lab Deborah Hector RUBBER PRESS TENDER CHEMISTRY ORDERABL ES [facility] [place] [address] documented in this encounter Visit Diagnoses Diagnosis Neoplasm of prostate, 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 Gastroesophageal reflux disease with esophagitis, unspecified whether hemorrhage documented in this encounter Care Teams Topper Press Operator Automatic Relationship Specialty Start Date End Date Kennedi Shaver MD [address] [facility] [address] [place] [address] PCP - General Family Medicine 08/02/20 06/24/24 documented as of this encounter
--- OUTSIDE RECORDS SUMMARY | 2024-09-11 15:18 | XMS_ITS | Encounter Summary ---
Author Organization [facility] [place] [address] Care Team Providers Care County Program Technician Name Role Phone Kennedi Shaver MD Primary Care Provider [phone] Encounter Details Date Type Department Care Team (Latest Contact Info) Description 08/04/2024 Travel Social History Tobacco Use Types Packs/Day [...] (Latest Contact Info) Description 09/29/2024 4:30 PM [facility] [place] [phone] Lizet Wilkes MD [facility] [place] [address] 09/29/2024 4:30 PM EST - 09/29/2024 5:00 PM EST Surgery Gastroenterology at [place] [phone] Lizet Wikles MD [facility] [address] EGD, UPPER GI ENDOSCOPY (WRVU 2.09) 11/09/2024 10:00 AM EST Laboratory Appointment Lab at [facility] Hematology Oncology [address] [place], [place] [phone] 11/09/2024 11:00 AM EST Office Visit Hematology and Oncology at [place] [phone] Faith Caba MD [facility] [address] [place] [address] 11/09/2024 12:00 PM EST Appointment Hematology [place] [address] Scheduled Procedures Name Priority Associated Diagnoses Date/Ti me EGD, UPPER GI ENDOSCOPY (WRVU 2.09) Gastroesophageal reflux disease with esophagitis, unspecified whether hemorrhage 09/29/2024 4:30 PM EST documented as of this encounter Goals Goal Patient Goal Type Associated Problems Recent Progress Patient-Stated? Author [facility] Medication Compliance and Understanding Patient Facing Action Plan Curly Nicolas, [facility] Note: The patient? s goal is to continue positive results of oral chemotherapy by maintaining improved labs PSA or stable scans in clinic for the upcoming year. documented as of this encounter Visit Diagnoses Not on filedocumented in this encounter Care Teams County Program Technician Relationship Specialty Start Date End Date Kennedi Shaver MD [facility] [address] [place] [address] PCP - General Family Medicine 06/25/24 documented as of this encounter
--- OUTSIDE RECORDS SUMMARY | 2024-09-11 15:18 | XMS_ITS ---
Author Organization [facility] [place] [address] Care Team Providers Care Route Sales Associate Name Role Phone Kennedi Shaver MD Primary Care Provider [phone] Active Problems Problem Noted Date Diagnosed Date 12/19/22 S/P right total knee arthroplasty (Dr. Tex contreras) 12/19/2022 GIRISH (obstructive sleep apnea) 11/15/2022 Acute blood loss anemia 08/16/2022 GI bleed 08/14/2022 Hypertension 03/14/2020 Hyperglycemia 11/27/2019 Overview (08/12/2024): 11/14/2020 - Comments only - Kennedi Shaver MD - A1C to be drawn in few weeks. Problem Code: R73.9; Problem Code Type: ICD-10; Neoplasm of prostate, distan t metastasis staging category M1c: distant metastasis with or without metastasis to bone 03/11/2017 Erectile dysfunction 10/20/2015 Overview (08/12/2024): Problem Code: N52.9; Problem Code Type: ICD-10; GERD (gastroesophageal reflux disease) 2 Sol's esophagus 01/17/2006 Hyperlipidemia 09/30/1959 Overview (08/12/2024): Problem Code: E78.5; Problem Code Type: ICD-10; Current Oncology Plans ?LEUPROLIDE (LUPRON DEPOT) 22.5 MG EVERY 3 MONTH* Plan Start Date:10/04/2020 Plan Provider:Faith Caba MD Linked Problems Neoplasm of prostate, distan t metastasis staging category M1c: distant metastasis with or without metastasis to bone Treatment Medications No medications scheduled. Past Plans Therapy Plan 1 Plan Name Start Date Discontinue Date Treatment Medications Discontinue Reason Plan Provider LEUPROLIDE (ELIGARD) INJECTION 22.5 MG EVERY 3 MONTH 07/05/2020 09/27/2020 No medications scheduled. Plan is Being Renewed Faith Caba MD ?LEUPROLID E (LUPRON DEPOT) 22.5 MG EVERY 3 MONTH 07/05/2020 06/21/2020 No medications scheduled. Plan is Being Renewed Faith Caba MD ?LEUPROLID E (LUPRON) 22.5 MG EVERY 3 MONTH 07/08/2018 06/07/2020 No medications scheduled. Plan is Being Renewed Faith Caba MD Radiation Treatments * No radiation treatments are documented for this patient in [facility]. Treatments may have been administered in another system.
--- OUTSIDE RECORDS SUMMARY | 2024-09-11 15:18 | XMS_ITS | Encounter Summary ---
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 Procedures TC LEUPROLIDE ACETATE, PER 1MG, INJECTION (LUPRON) Faith Caba MD [facility] [address] HEMATOLOGY [place] [address] [facility] [address] [place] [address] Referral ID Status Reason Start Date Expiration Date V isits Requested Visits Authorized [id number] Authorized 09/27/2020 09/29/2024 99 99 Encounter Details Date Type Department Care Team (Latest Contact Info) Description 04/28/2024 1:09 PM EDT - 04/28/2024 11:59 PM EDT Hospital Encounter [place]ology [place] [address] Neoplasm of prostate, 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 Birthdate: 1945 Admit date: 04/28/2024 Attending Physician: Christina att. providers found Access visit. See MAR and/or flowsheet. documented in this encounter Plan of Treatment Upcoming Encounters Date Type Department Care Team (Latest Contact Info) Description 09/29/2024 4:30 PM EST Hospital [place] [address] Lizet Wilkes MD [facility] [place] [address] 09/29/2024 4:30 PM EST - 09/29/2024 5:00 PM EST [place] [address] Lizet Wilkes MD [facility] [place] [address] EGD, UPPER GI ENDOSCOPY (WRVU 2.09) 11/09/2024 10:00 AM EST Laboratory Appointment Lab at [facility] Hematology Oncology [address] [place] [phone] 11/09/2024 11:00 AM EST Office Visit [place]ology [place] [address] Faith Caba MD [facility] [address] [place] [address] 11/09/2024 12:00 PM EST Appointment Hematology [place] [phone] Scheduled Procedures Name Priority Associated Diagnoses Date/Ti me EGD, UPPER GI ENDOSCOPY (WRVU 2.09) Gastroesophageal reflux disease with esophagitis, unspecified whether hemorrhage 09/29/2024 4:30 PM EST documented as of this encounter Goals Goal Patient Goal Type Associated Problems Recent Progress Patient-Stated? Author [facility] Medication Compliance and Understanding Patient Facing Action Plan Curly Nicolas, [facility] Note: The patient? s goal is to continue positive results of oral chemotherapy by maintaining improved labs PSA or stable scans in clinic for the upcoming year. 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 leuprolide IM injection site: R Gluteal (10/29/2023 12:22 PM), Routine, This agent is restricted to outpatient use. Is this drug being given as an outpatient? Yes Given 04/28/2024 3:14 PM EDT 22.5 mg Right Gluteal documented in this encounter Care Teams Counter Supply Worker Relationship Specialty Start Date End Date Kennedi Shaver MD [address] [place] [address] PCP - General Family Medicine 08/02/20 06/24/24 documented as of this encounter
--- OUTSIDE RECORDS SUMMARY | 2024-09-11 15:18 | XMS_ITS | Encounter Summary ---
[facility] Organization [facility] [place] [address] Care Team Providers Care Mold Holder Name Role Phone Kennedi Shaver MD Primary Care Provider Encounter Details Date Type Department Care Team (Late st Contact Info) Description 04/29/2024 Specialty [place] [phone] Brandt Rogers [facility] Social History Tobacco Use Types Packs/Day Years Used Date Smoking Tobacco: Former Cigarettes 1977 Smokeless Tobacco: Never Alcohol Use Standard Drinks/Week Comments Yes 14 (1 standard drink = 0.6 oz pu re alcohol) 1 drink a day [facility] Inpatient Questions Answer Date Recorded Does Anyone [...] on file documented as of this encounter Progress Notes * Brandt Rogers [facility] - 04/29/2024 1:24 PM EDT Clinical Management Plan: Discontinuation of Therapy Specialty Pharmacy Consultation; Brandt Rogers RPH Comprehensive Medication Management (CMM) Chidi Carbone [address] [place] [phone] Telephone Information: Work Phone Not on file. Is the patient transferring services to a different Specialty Pharmacy, discontinuing the medication, or modifying current Specialty services? Discontinuing Medication Medication: abiraterone Reason for discontinuation or transfer of services: Therapy discontinued Approximate date of discontinuation, modification, or transfer of services: 04/28/24 Patient's response to therapy: difficulty swallowing, condition is stable, has been off medication for past few months Summary of services provided by D- Specialty: Benefits investigation, medication access assistance, initial clinical assessment, follow up clinical assessment(s), refill management, care plan reviewprior to dispensing, and 22/04 access to an on-call specialty pharmacist Summary of on-going needs: None at this time Referral for additional services (if applicable): n/a Is patient aware of referral? N/a Instructions provided to patient about discharge/transfer: yes - discussed unenrollment with Chidi, who told me that at yesterday's appointment he was told he could stop therapy and plan will be reassessed again in 3 months Provider aware of discontinuation or transfer: Yes Patient understands no changes to current drug regimen were made at the appointment and that [facility] (summary located at top of note) for provider review and follow up. Of note, if transferring to another specialty pharmacy, a copy of patient's medication profile was offered to accepting pharmacy. Brandt Rogers RPH 04/29/24 1:24 PM documented in this encounter Miscellaneous Notes * Addendum Note - Brandt Rogers RPH - 04/29/2024 1:24 PM EDTAddended by: BRANDT ROGERS on: 08/03/2024 10:08 AM Modules accepted: Orders documented in this encounter Plan of Treatment Upcoming Encounters Date Type Department Care Team (Latest Contact Info) Description 09/29/2024 4:30 PM EST Hospital Encounter Gastroenterology at [place] [phone] Lizet Wilkes [facility] [place] [address] 09/29/2024 4:30 PM EST - 09/29/2024 5:00 PM EST Surgery [place] [phone] Lizet Wilkes MD [facility] [place] [address] EGD, UPPER GI ENDOSCOPY (WRVU 2.09) 11/09/2024 10:00 AM EST Laboratory Appointment Lab at [facility] Hematology Oncology [address] [place], [place] [phone] 11/09/2024 11:00 AM EST Office Visit Hematology and Oncology at [place] [phone] Faith Caba MD [facility] [address] [place] [address] 11/09/2024 12:00 PM EST Appointment Hematology and Oncology at [place] [phone] Scheduled Procedures Name Priority Associated Diagnoses Date/Ti ri EGD, UPPER GI ENDOSCOPY (WRVU 2.09) Gastroesophageal reflux disease with esophagitis, unspecified whether hemorrhage 09/29/2024 4:30 PM EST documented as of this encounter Goals Goal Patient Goal Type Associated Problems Recent Progress Patient-Stated? Author [facility] Medication Compliance and Understanding Patient Facing Action Plan Curly Nicolas, [facility] Note: The patient? s goal is to continue positive results of oral chemotherapy by maintaining improved labs PSA or stable scans in clinic for the upcoming year. documented as of this encounter Visit Diagnoses Not on filedocumented in this encounter Care Teams Mold Holder Relationship Specialty Start Date End Date Kennedi Shaver MD Joshua [address] [facility] [address] [place] [address] PCP - General Family Medicine 06/25/24 documented as of this encounter
--- OUTSIDE RECORDS SUMMARY | 2024-09-11 15:18 | XMS_ITS | Encounter Summary ---
[facility] Organization [facility] [place] [address] Care Team Providers Care Motor Room Controller Name Role Phone Kennedi Shaver MD Primary Care Provider [phone] Reason for Visit * Reason Comments Elbow Pain Encounter Details Date Type Department Care Team (Late st Contact Info) Description 05/29/2024 2:38 PM EDT - 05/29/2024 3:54 PM EDT [place] [id number] Mass of left upper extremity Discharge Disposition: Home Social History Tobacco Use [...] Sign Reading Time Taken Comments Blood Pressure 138/85 05/29/2024 2:32 PM EDT Pulse 71 05/29/2024 2:32 PM EDT Temperature 36.1 ??C (97 ??F) 05/29/2024 2:32 PM EDT Respiratory Rate 18 05/29/2024 2:32 PM EDT Oxygen Saturation 97% 05/29/2024 2:32 PM EDT Inhaled Oxygen Concentration - - Weight 78 kg (172 lb) 05/29/2024 2:32 PM EDT Height 177.8 cm (5' 10) 05/29/2024 2:32 PM EDT Body Mass Index 24.68 05/29/2024 2:32 PM EDT documented in this encounter Discharge Instructions * Discharge Instructions* Willem Kemp PA - 05/29/2024 3:36 PM EDT You were seen in the ED for a lump on your forearm. The x-ray did not show any evidence of a fracture. I do recommend you follow up with your PCP to consider more advanced imaging of this. Please return to the ED as needed for any concerns. documented in this encounter Medications at Time of Discharge [...] 09/25/2023 08/03/2024 documented as of this encounter ED Notes * Willem Kemp PA - 05/29/2024 3:54 PM EDT ED Provider Note HPI: Chidi Carbone is a 78 y.o. male who presents to the Emergency Department with left forearm swelling. He was getting a bone scan today for his prostate cancer and the provider there noticed the lump on his left forearm and told him come to the emergency department to have it evaluated. He denies any pain associated with the lump. He has full range of motion of his elbow and wrist. Denies any trauma to his forearm or elbow. He says that the swelling and lump has been there for a couple of weeks. ROS as per HPI Vitals: ED Triage Vitals [05/29/24 1432] BP: 138/85 Heart Rate: 71 Resp: 18 Temp: 36.1 ??C (97 ??F) Temp src: Temporal SpO2: 97 % O2 Device: n/a O2 Flow Rate (L/min): n/a Physical Exam Vitals and nursing note reviewed. Constitutional: Appearance: Normal appearance. He is well-developed. HENT: Head: Atraumatic. Eyes: Pupils: Pupils are equal, round, and reactive to light. Neck: Trachea: No tracheal deviation. Cardiovascular: Rate and Rhythm: Normal rate. Pulmonary: Effort: Pulmonary effort is normal. Musculoskeletal: General: Normal range of motion. Comments: Swelling noted to proximal forearm just distal to the elbow on the ulnar side. No overlying erythema or tenderness. Palpable radial pulse felt. Sensation intact to light touch in the fingers. Skin: General: Skin is warm and dry. Findings: No rash. Neurological: General: No focal deficit present. Mental Status: He is alert. Psychiatric: Mood and Affect: Mood normal. XR Forearm Left (Generic) Final Result 1. Insertional triceps calcific tendinopathy. 2. Soft tissue thickening overlying the olecranon process is nonspecific and could represent infectious/inflammatory process, mild olecranon bursitis, or focal soft tissue injury. 3. No underlying fracture or malalignment of the left elbow. No destructive bone lesion of the left elbow. 4. Distal to the olecranon process and the site of focal thickening over the olecranon process is an additional site of focal soft tissue thickening along the dorsal aspect of the proximal ulna. No underlying fracture of the radius or ulna. No underlying destructive bone lesion. This finding could represent focal soft tissue injury or focal infection/inflammation. An underlying soft tissue neoplastic lesion cannot be excluded on the basis of this radiographic appearance alone. If there is concern for an underlying soft tissue mass, MR with contrast is recommended for further evaluation. 5. 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 Thank you for letting us participate in the care of this patient. If you are a health care provider and have any questions regarding this report, please contact the number below. For patients who have questions please contact the health home health care case manager that requested your imaging first. Electronically signed by: Denise Johnson MD, [facility] ([phone]), at 05/29/2024 3:11 PM XR Elbow 3 Views Left (GENERIC) Final Result 1. Insertional triceps calcific tendinopathy. 2. Soft tissue thickening overlying the olecranon process is nonspecific and could represent infectious/inflammatory process, mild olecranon bursitis, or focal soft tissue injury. 3. No underlying fracture or malalignment of the left elbow. No destructive bone lesion of the left elbow. 4. Distal to the olecranon process and the site of focal thickening over the olecranon process is an additional site of focal soft tissue thickening along the dorsal aspect of the proximal ulna. No underlying fracture of the radius or ulna. No underlying destructive bone lesion. This finding could represent focal soft tissue injury or focal infection/inflammation. An underlying soft tissue neoplastic lesion cannot be excluded on the basis of this radiographic appearance alone. If there is concern for an underlying soft tissue mass, MR with contrast is recommended for further evaluation. 5. 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 Thank you for letting us participate in the care of this patient. If you are a health care provider and have any questions regarding this report, please contact the number below. For patients who have questions please contact the health home health care case manager that requested your imaging first. Electronically signed by: Denise Johnson MD, [facility] ([phone]), at 05/29/2024 3:11 PM Procedures Assessment and Plan: 78 y.o. male with hx of metastatic prostate cancer presents to the emergency department with a bumpthat he has noticed on his left proximal forearm on the ulnar side for the last several weeks. He denies any pain associated with the lump. Denies any numbness or tingling in his arm. Patient was getting a DEXA scan today for his prostate cancer and the tech there noticed it and recommended he cometo the ED for evaluation. Overall he has a reassuring exam without any neurologic deficits. His x-ray does not show any evidence of a fracture. I am concerned given his history of metastatic prostatecancer however that he needs further imaging which should be followed up with his primary care provider. Do not see any emergent indication for MRI or CT scan today as the lump has been there for several weeks and he has close follow-up with his primary care provider. Did this case involve critical care? No The visit findings, diagnosis, and care plan were discussed with the patient. The diagnosis and care plans discussions were outlined in the discharge instructions. The patient expressed understanding of the details of the visit, the return precautions and that he should returnto the ER at any time for worsening symptoms, new symptoms, or other concerns. he agrees with the follow- up plan. Willem Kemp PA 05/29/24 [id number] * Willem Kemp PA - 05/29/2024 2:33 PM EDT 78 y/o M presents to the ED with a lump on his left forearm. Was just at a dexascan appointment andwas sent here for evaluation of it. He denies any significant pain with this. No trauma to his leftarm. No redness, fevers or chills. X-ray left forearm and elbow ordered. Willem Kemp PA 05/29/24 1434 documented in this encounter Miscellaneous Notes * ED Triage - Lizet Harris RN - 05/29/2024 2:35 PM EDT Pt arrives ambulatory with stable gait. A&Ox4 speaking in full sentences. Pt reports L elbow mass noticed a week ago. Mild pain. Respirations even and non labored. Skin p/w/d. NAD at this time. documented in this encounter Plan of Treatment Upcoming Encounters Date Type Department Care Team (Latest Contact Info) Description 09/29/2024 4:30 PM EST Hospital Encounter [place] [address] Lizet Wilkes MD [facility] [place] [address] 09/29/2024 4:30 PM EST - 09/29/2024 5:00 PM EST [place] [address] Lizet Wilkes [facility] [place] [address] EGD, UPPER GI ENDOSCOPY (WRVU 2.09) 11/09/2024 10:00 AM EST Laboratory Appointment Lab at [facility] Hematology Oncology [address] [phone] 11/09/2024 11:00 AM EST Office Visit Hematology [place] [phone] Faith Caba MD [facility] HEMATOLOGY [facility]COLOGY [place] [id number] 11/09/2024 12:00 PM EST Appointment Hematology [place] [address] Scheduled Procedures Name Priority Associated Diagnoses Date/Ti me EGD, UPPER GI ENDOSCOPY (WRVU 2.09) Gastroesophageal reflux disease with esophagitis, unspecified whether hemorrhage 09/29/2024 4:30 PM EST documented as of this encounter Goals Goal Patient Goal Type Associated Problems Recent Progress Patient-Stated? Author [facility] Medication Compliance and Understanding Patient Facing Action Plan Curly Nicolas, [facility] Note: The patient? s goal is to continue positive results of oral chemotherapy by maintaining improved labs PSA or stable scans in clinic for the upcoming year. documented as of this encounter Procedures Procedure Name Priority Date/Time Associated Diagnosis Comments XR FOREARM LEFT STAT 05/29/2024 2:49 PM EDT XR ELBOW 3 VIEWS LEFT (GENERIC) STAT 05/29/2024 2:49 PM EDT documented in this encounter Results * XR Elbow 3 Views Left (GENERIC) (05/29/2024 2:49 PM EDT) WORKSTATION ID [id number] RAD Anatomical Region Laterality Modality Elbow Left Digital Radiogra phy Impressions 05/29/2024 3:11 PM EDT 1. ??Insertional triceps calcific tendinopathy. 2. ??Soft tissue thickening overlying the olecranon process is nonspecific and could represent infectious/inflammatory process, mild olecranon bursitis, or focal soft tissue injury. 3. ??No underlying fracture or malalignment of the left elbow. ??No destructive bone lesion of the left elbow. 4. ??Distal to the olecranon process and the site of focal thickening over the olecranon process is an additional site of focal soft tissue thickening along the dorsal aspect of the proximal ulna. ??No underlying fracture of the radius or ulna. ??No underlying destructive bone lesion. ??This finding could represent focal soft tissue injury or focal infection/inflammation. ??An underlying soft tissue neoplastic lesion cannot be excluded on the basis of this radiographic appearance alone. ??If there is concern for an underlying soft tissue mass, MR with contrast is recommended for further evaluation. 5. 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 Thank you for letting us participate in the care of this patient. ??If you are a health care provider and have any questions regarding this report, please contact the number below. ??For patients who have questions please contact the health home health care case manager that requested your imaging first. ? Electronically signed by: Denise Johnson MD, [facility] ([phone]), at 05/29/2024 3:11 PM Narrative 05/29/2024 3:11 PM EDT EXAMINATION: XR ELBOW 3 VIEWS LEFT (GENERIC), XR FOREARM LEFT (GENERIC) CLINICAL HISTORY: left elbow swelling (as entered by ordering provider in the order requisition) TECHNIQUE: AP, oblique, lateral views of the left elbow. PA and lateral views of the left forearm. COMPARISON: None FINDINGS: Elbow: There is soft tissue thickening overlying the olecranon process. ??There are ill-defined calcifications at the insertion of the triceps on the olecranon process. ??No osseous erosion. ??No bone destruction. ??No acute fracture. ??No elbow joint effusion. ??Normal elbow joint spaces. ??Normal alignment of the elbow joint. Forearm: Just distal to the soft tissue thickening overlying the olecranon process, there is an additional site of focal soft tissue thickening along the dorsal aspect of the proximal ulna. ??No underlying fracture of the radius or ulna. ??No underlying destructive bone lesion. 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 ??There is a large geode of the lunate. ??There is 1st carpal metacarpal joint space narrowing with subchondral sclerosis and marginal osteophyte formation. ??Is also joint space narrowing subchondral sclerosis the triscaphe joint. Procedure Note Denise Johnson MD - 05/29/2024 EXAMINATION: XR ELBOW 3 VIEWS LEFT (GENERIC), XR FOREARM LEFT (GENERIC) CLINICAL HISTORY: left elbow swelling (as entered by ordering provider inthe order requisition) TECHNIQUE: AP, oblique, lateral views of the left elbow. PA and lateral views of the left forearm. COMPARISON: None FINDINGS: Elbow: There is soft tissue thickening overlying the olecranon process.There are ill-defined calcifications at the insertion of the triceps on theolecranon process. No osseous erosion. No bone destruction. No acute fracture.No elbow joint effusion. Normal elbow joint spaces. Normal alignment of theelbow joint. Forearm: Just distal to the soft tissue thickening overlying theolecranon process, there is an additional site of focal soft tissue thickening alongthe dorsal aspect of the proximal ulna. No underlying fracture of the radiusor ulna. No underlying destructive bone lesion. There is chondrocalcinosis of the triangular fibrocartilage complex.There is a large geode of the lunate. There is 1st carpal metacarpal joint spacenarrowing with subchondral sclerosis and marginal osteophyte formation. Is alsojoint space narrowing subchondral sclerosis the triscaphe joint. IMPRESSION 1. Insertional triceps calcific tendinopathy. 2. Soft tissue thickening overlying the olecranon process is nonspecificand could represent infectious/inflammatory process, mild olecranon bursitis,or focal soft tissue injury. 3. No underlying fracture or malalignment of the left elbow. Nodestructive bone lesion of the left elbow. 4. Distal to the olecranon process and the site of focal thickening overthe olecranon process is an additional site of focal soft tissue thickeningalong the dorsal aspect of the proximal ulna. No underlying fracture of theradius or ulna. No underlying destructive bone lesion. This finding couldrepresent focal soft tissue injury or focal infection/inflammation. An underlyingsoft tissue neoplastic lesion cannot be excluded on the basis of thisradiographic appearance alone. If there is concern for an underlying soft tissue mass,MR with contrast is recommended for further evaluation. 5. CPPD associated arthropathy of the 1st carpometacarpal and triscaphejoints. Thank you for letting us participate in the care of this patient. If youare a health care provider and have any questions regarding this report,please contact the number below. For patients who have questions please contactthe health home health care case manager that requested your imaging first. Electronically signed by: Denise Johnson MD, [facility]([phone]), at 05/29/2024 3:11 PM Jamison Ugarte DO IMG DX ORDERABLES * XR Forearm Left (Generic) (05/29/2024 2:49 PM EDT) WORKSTATION ID [id number] RAD Anatomical Region Laterality Modality Forearm Left Digital Radiogra phy Impressions 05/29/2024 3:11 PM EDT 1. ??Insertional triceps calcific tendinopathy. 2. ??Soft tissue thickening overlying the olecranon process is nonspecific and could represent infectious/inflammatory process, mild olecranon bursitis, or focal soft tissue injury. 3. ??No underlying fracture or malalignment of the left elbow. ??No destructive bone lesion of the left elbow. 4. ??Distal to the olecranon process and the site of focal thickening over the olecranon process is an additional site of focal soft tissue thickening along the dorsal aspect of the proximal ulna. ??No underlying fracture of the radius or ulna. ??No underlying destructive bone lesion. ??This finding could represent focal soft tissue injury or focal infection/inflammation. ??An underlying soft tissue neoplastic lesion cannot be excluded on the basis of this radiographic appearance alone. ??If there is concern for an underlying soft tissue mass, MR with contrast is recommended for further evaluation. 5. 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 Thank you for letting us participate in the care of this patient. ??If you are a health care provider and have any questions regarding this report, please contact the number below. ??For patients who have questions please contact the health home health care case manager that requested your imaging first. ? Electronically signed by: Denise Johnson MD, [facility] ([phone]), at 05/29/2024 3:11 PM Narrative 05/29/2024 3:11 PM EDT EXAMINATION: XR ELBOW 3 VIEWS LEFT (GENERIC), XR FOREARM LEFT (GENERIC) CLINICAL HISTORY: left elbow swelling (as entered by ordering provider in the order requisition) TECHNIQUE: AP, oblique, lateral views of the left elbow. PA and lateral views of the left forearm. COMPARISON: None FINDINGS: Elbow: There is soft tissue thickening overlying the olecranon process. ??There are ill-defined calcifications at the insertion of the triceps on the olecranon process. ??No osseous erosion. ??No bone destruction. ??No acute fracture. ??No elbow joint effusion. ??Normal elbow joint spaces. ??Normal alignment of the elbow joint. Forearm: Just distal to the soft tissue thickening overlying the olecranon process, there is an additional site of focal soft tissue thickening along the dorsal aspect of the proximal ulna. ??No underlying fracture of the radius or ulna. ??No underlying destructive bone lesion. 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 ??There is a large geode of the lunate. ??There is 1st carpal metacarpal joint space narrowing with subchondral sclerosis and marginal osteophyte formation. ??Is also joint space narrowing subchondral sclerosis the triscaphe joint. Procedure Note Denise Johnson MD - 05/29/2024 EXAMINATION: XR ELBOW 3 VIEWS LEFT (GENERIC), XR FOREARM LEFT (GENERIC) CLINICAL HISTORY: left elbow swelling (as entered by ordering provider inthe order requisition) TECHNIQUE: AP, oblique, lateral views of the left elbow. PA and lateral views of the left forearm. COMPARISON: None FINDINGS: Elbow: There is soft tissue thickening overlying the olecranon process.There are ill-defined calcifications at the insertion of the triceps on theolecranon process. No osseous erosion. No bone destruction. No acute fracture.No elbow joint effusion. Normal elbow joint spaces. Normal alignment of theelbow joint. Forearm: Just distal to the soft tissue thickening overlying theolecranon process, there is an additional site of focal soft tissue thickening alongthe dorsal aspect of the proximal ulna. No underlying fracture of the radiusor ulna. No underlying destructive bone lesion. There is chondrocalcinosis of the triangular fibrocartilage complex.There is a large geode of the lunate. There is 1st carpal metacarpal joint spacenarrowing with subchondral sclerosis and marginal osteophyte formation. Is alsojoint space narrowing subchondral sclerosis the triscaphe joint. IMPRESSION 1. Insertional triceps calcific tendinopathy. 2. Soft tissue thickening overlying the olecranon process is nonspecificand could represent infectious/inflammatory process, mild olecranon bursitis,or focal soft tissue injury. 3. No underlying fracture or malalignment of the left elbow. Nodestructive bone lesion of the left elbow. 4. Distal to the olecranon process and the site of focal thickening overthe olecranon process is an additional site of focal soft tissue thickeningalong the dorsal aspect of the proximal ulna. No underlying fracture of theradius or ulna. No underlying destructive bone lesion. This finding couldrepresent focal soft tissue injury or focal infection/inflammation. An underlyingsoft tissue neoplastic lesion cannot be excluded on the basis of thisradiographic appearance alone. If there is concern for an underlying soft tissue mass,MR with contrast is recommended for further evaluation. 5. CPPD associated arthropathy of the 1st carpometacarpal and triscaphejoints. Thank you for letting us participate in the care of this patient. If youare a health care provider and have any questions regarding this report,please contact the number below. For patients who have questions please contactthe health home health care case manager that requested your imaging first. Electronically signed by: Denise Johnson MD, [facility]([phone]), at 05/29/2024 3:11 PM Jamison Ugarte DO IMG DX ORDERABLES documented in this encounter Visit Diagnoses Diagnosis Mass of left upper extremity Gastroesophageal reflux disease with esophagitis, unspecified whether hemorrhage documented in this encounter Care Teams Motor Room Controller Relationship Specialty Start Date End Date Kennedi Shaver MD [address] [place] [address] PCP - General Family Medicine 08/02/20 06/24/24 documented as of this encounter
--- OUTSIDE RECORDS SUMMARY | 2024-09-11 15:18 | XMS_ITS | Encounter Summary ---
Author Organization [place] [id number] Care Team Providers Care Prize Fighter Name Role Phone Kennedi Shaver MD Primary Care Provider [phone] Reason for Referral * Diagnostic Test (Routine) - Closed Specialty Diagnoses / Procedures Referred By Contac t Referred To Contact Radiology Diagnoses Soft tissue mass Procedures MRI Elbow wwo Contrast Left Regan Baez MD [facility] [place] [address] [place] [address] Referral ID Status Reason Start Date Expiration Date V isits Requested Visits Authorized [id number] Closed Specialty Service Requested 07/01/2024 12/30/2025 1 1 Reason for Visit * Diagnostic Test (Routine) - Closed Specialty Diagnoses / Procedures Referred By Blaine t Referred To Contact Radiology Diagnoses Soft tissue mass Procedures MRI Elbow wwo Contrast Left Regan Baez MD [facility] [place] [address] [facility] [place] [address] Referral ID Status Reason Start Date Expiration Date V isits Requested Visits Authorized [id number] Closed Specialty Service Requested 07/01/2024 12/30/2025 1 1 Encounter Details Date Type Department Care Team (Latest Contact Info) Description 07/08/2024 6:18 PM EDT - 07/08/2024 11:59 PM EDT [place] [address] Regan Baez MD [facility] DR [place] [address] Soft tissue mass Discharge Disposition: Home Social History Tobacco Use Types Packs/Day Years Used Date Smoking Tobacco: Former Cigarettes 1977 Smokeless Tobacco: Never Alcohol Use Standard Drinks/Week Comments Yes 14 (1 standard drink = 0.6 oz pu re alcohol) 1 drink a day [facility] Inpatient Questions Answer Date Recorded Does [...] 4:30 PM EST Hospital En[place] [address] Lizet Wilkes MD [facility] [place] [address] 09/29/2024 4:30 PM EST - 09/29/2024 5:00 PM EST [place] [address] Lizet Wilkes MD [facility] [place] [address] EGD, UPPER GI ENDOSCOPY (WRVU 2.09) 11/09/2024 10:00 AM EST Laboratory Appointment [place] [facility] [place] [address] [place] [phone] 11/09/2024 11:00 AM EST Office Visit Hematology [place] [address] Faith Caba MD [facility] DR HEMATOLOGY [place] [address] 11/09/2024 12:00 PM EST Appointment H[place]ology [place] [phone] Scheduled Procedures Name Priority Associated Diagnoses Date/Ti me EGD, UPPER GI ENDOSCOPY (WRVU 2.09) Gastroesophageal reflux disease with esophagitis, unspecified whether hemorrhage 09/29/2024 4:30 PM EST documented as of this encounter Goals Goal Patient Goal Type Associated Problems Recent Progress Patient-Stated? Author [facility] Medication Compliance and Understanding Patient Facing Action Plan Curly Nicolas, [facility] Note: The patient? s goal is to continue positive results of oral chemotherapy by maintaining improved labs PSA or stable scans in clinic for the upcoming year. documented as of this encounter Procedures Procedure Name Priority Date/Time Associated Diagnosis Comments MRI ELBOW LEFT WITH/WO CONTRAST Routine 07/08/2024 7:31 PM EDT Soft tissue mass documented in this encounter Results * MRI Elbow wwo Contrast Left (07/08/2024 7:31 PM EDT) WORKSTATION ID [id number] RAD Anatomical Region Laterality Modality Elbow Left Magnetic Resonan ce Impressions 07/08/2024 9:48 PM EDT 1. ??Palpable abnormality corresponds to marked olecranon bursitis with adjacent subcutaneous edema. Recommend follow-up to resolution by physical exam. 2. ??Mild tendinosis with low-grade interstitial tears of the common extensor tendon. Thank you for letting us participate in the care of this patient. ??If you are a health care provider and have any questions regarding this report, please contact the number below. ??For patients who have questions please contact the health child care attendant that requested your imaging first. ? Narrative 07/08/2024 9:48 PM EDT EXAMINATION: MRI ELBOW WWO CONTRAST LEFT CLINICAL HISTORY: soft tissue mass, thickening over the olecranon process and then along the dorsal aspect of proximal ulna M79.89, Other specified soft tissue disorders TECHNIQUE: Multiplanar, multisequential MR images were obtained of the left elbow performed before and after the intravenous administration of 16 cc of Dotarem contrast according to standard protocol. COMPARISON: Left elbow radiograph 05/29/2024 FINDINGS: Skin markers overlie the posterior elbow. 6.3 x 1.7 x 4.1 cm subcutaneous lesion posterior to the olecranon (CC x AP x TV, series 11,001 image 37, series 5001 image 16) that contains T2 hyperintense, T1 hypointense nonenhancing fluid. The lesion demonstrates peripheral enhancement, thin enhancing septations, and mild peripheral frond-like enhancement proximally (series 8001 image 57, series 11,001 image 55), most likely reflecting synovial thickening/synovitis. There is adjacent subcutaneous T2 hyperintense signal and enhancement. No abnormal enhancement or T2 hyperintense signal within the adjacent musculature. Minimal T2 hyperintense signal and enhancement at the posterior olecranon, likely reactive. No osseous erosions. No invasion of surrounding structures. Bones/Joints: ??No acute fracture or dislocation. The joint spaces and alignment are maintained without significant degenerative change. No joint effusion. Medial: Intact common flexor tendon. Intact ulnar collateral ligament. Lateral: Mild tendinosis with low-grade interstitial tears of the common extensor tendon. Intact radial collateral ligament, lateral ulnar collateral ligament and annular ligament. Biceps tendon: Intact. Triceps tendon: Intact. Nerves: Grossly normal morphology and signal intensity of the ulnar, median and radial nerves. Musculature: Normal muscle bulk and signal intensity. Subcutaneous tissues: As above. Procedure Note Ann Evans MD - 07/08/2024 EXAMINATION: MRI ELBOW WWO CONTRAST LEFT CLINICAL HISTORY: soft tissue mass, thickening over the olecranon processand then along the dorsal aspect of proximal ulna M79.89, Other specified soft tissue disorders TECHNIQUE: Multiplanar, multisequential MR images were obtained of theleft elbow performed before and after the intravenous administration of 16 ccof Dotarem contrast according to standard protocol. COMPARISON: Left elbow radiograph 05/29/2024 FINDINGS: Skin markers overlie the posterior elbow. 6.3 x 1.7 x 4.1 cm subcutaneous lesion posterior to the olecranon (CC x APx TV, series 11,001 image 37, series 5001 image 16) that contains [id number], T1 hypointense nonenhancing fluid. The lesion demonstrates peripheralenhancement, thin enhancing septations, and mild peripheral frond-like enhancementproximally (series 8001 image 57, series 11,001 image 55), most likely reflectingsynovial thickening/synovitis. There is adjacent subcutaneous T2 hyperintensesignal and enhancement. No abnormal enhancement or T2 hyperintense signal withinthe adjacent musculature. Minimal T2 hyperintense signal and enhancement atthe posterior olecranon, likely reactive. No osseous erosions. No invasionof surrounding structures. Bones/Joints: No acute fracture or dislocation. The joint spaces andalignment are maintained without significant degenerative change. No jointeffusion. Medial: Intact common flexor tendon. Intact ulnar collateral ligament. Lateral: Mild tendinosis with low-grade interstitial tears of the common extensor tendon. Intact radial collateral ligament, lateral ulnarcollateral ligament and annular ligament. Biceps tendon: Intact. Triceps tendon: Intact. Nerves: Grossly normal morphology and signal intensity of the ulnar,median and radial nerves. Musculature: Normal muscle bulk and signal intensity. Subcutaneous tissues: As above. IMPRESSION 1. Palpable abnormality corresponds to marked olecranon bursitis withadjacent subcutaneous edema. Recommend follow-up to resolution by physical exam. 2. Mild tendinosis with low-grade interstitial tears of the commonextensor tendon. Thank you for letting us participate in the care of this patient. If youare a health care provider and have any questions regarding this report,please contact the number below. For patients who have questions please contactthe health child care attendant that requested your imaging first. Regan Baez MD IMG MRI ORDERABLES documented in this encounter Visit Diagnoses Diagnosis Soft tissue mass Disorders of soft tissue, unspecified Gastroesophageal reflux disease with esophagitis, unspecified whether hemorrhage documented in this encounter Administered Medications Inactive Administered Medications - up to 3 most recent administrations Medication Order MAR Action Action Date Dose Rate Site gadoterate meglumine (Dotarem) (0.5 mMol/mL) injection solution 0-100 mL 0-100 mL, Intravenous, ONCE PRN, 1 dose, Starting on Sat07/08/24 at 1915, Until Sat07/08/24 at 191, Per Protocol, Radiology Contrast, Routine Given 07/08/2024 7:15 PM EDT 16 mLs documented in this encounter Care Teams Prize Fighter Relationship Specialty Start Date End Date Kennedi Shaver MD [facility] [address] [place] [address] PCP - General Family Medicine 06/25/24 documented as of this encounter
--- OUTSIDE RECORDS SUMMARY | 2024-09-11 15:18 | XMS_ITS | Encounter Summary ---
Author Organization [facility] [place] [address] Care Team Providers Care Airplane Designer Name Role Phone Kennedi Shaver MD Primary Care Provider [phone] Encounter Details Date Type Department Care Team (Late st Contact Info) Description 06/30/2024 Telephone [place] [address] Regan Baez MD [facility] [place] [address] Social History Tobacco Use Types Packs/Day Years Used Date Smoking Tobacco: Former Cigarettes 1977 Smokeless Tobacco: Never Alcohol Use Standard Drinks/Week Comments Yes 14 (1 standard drink = 0.6 oz pu re alcohol) 1 drink a day [facility] Inpatient Questions Answer Date Recorded [...] on file documented as of this encounter Miscellaneous Notes * Telephone Encounter - Honey Ramirez RN - 07/01/2024 10:38 AM EDT I called Chidi back this am. He would like to proceed with MRI first of Left elbow. Once the MRI is completed we will have Dr. Baez review and then discuss a plan with him. Chidi states he thinks he has an area on his spine that he would like to have looked at. I told Chidi that Dr. Baez doesn't see patients with spine issues. It would be best for Chidi to reach out to his PCP office to have a referral sent to a spine MD toevaluate this. Murillo verbalized agreement. Plan: MRI first, then review results and call Chidi with the a plan. * Telephone Encounter - Valerie Georges - 07/01/2024 10:13 AM EDT Patient returned call and was informed that the team is reaching out to him for discussion. He willbe available for that at # [phone] * Telephone Encounter - Honey Ramirez RN - 06/30/2024 7:20 PM EDT I have tried to contact Chidi several times to discuss his referral that was reviewed on 06/18. I tried again leora, his VM says his mailbox is full and unable to leave a message. Previous calls I was able to leave a message and have him call him in regards to the plan. I will contact the referring MD tomorrow to let them know we have been having difficulty getting a hold of the patient. documented in this encounter Plan of Treatment Upcoming Encounters Date Type Department Care Team (Latest Contact Info) Description 09/29/2024 4:30 PM [facility] Hospital Encounter Gastroenterology at [place] [phone] Lizet Wilkes MD [facility] [place] [address] 09/29/2024 4:30 PM EST - 09/29/2024 5:00 PM EST Surgery Gastroenterology at [place] [phone] Lizet Wilkes MD [facility] [place] [address] EGD, UPPER GI ENDOSCOPY (WRVU 2.09) 11/09/2024 10:00 AM EST Laboratory Appointment Lab at [facility] Hematology Oncology [address] [place] [address] 11/09/2024 11:00 AM EST Office Visit Hematology and Oncology at [place] [phone] Faith Caba MD [facility] DR HEMATOLOGY [place] [address] 11/09/2024 12:00 PM EST Appointment Hematology and Oncology at [address] Scheduled Procedures Name Priority Associated Diagnoses Date/Ti me EGD, UPPER GI ENDOSCOPY (WRVU 2.09) Gastroesophageal reflux disease with esophagitis, unspecified whether hemorrhage 09/29/2024 4:30 PM EST documented as of this encounter Goals Goal Patient Goal Type Associated Problems Recent Progress Patient-Stated? Author [facility] Medication Compliance and Understanding Patient Facing Action Plan Curly Nicolas, [facility] Note: The patient? s goal is to continue positive results of oral chemotherapy by maintaining improved labs PSA or stable scans in clinic for the upcoming year. documented as of this encounter Visit Diagnoses Not on filedocumented in this encounter Care Teams Airplane Designer Relationship Specialty Start Date End Date Kennedi Shaver MD [facility] [address] [place] [address] PCP - General Family Medicine 06/25/24 documented as of this encounter
--- OUTSIDE RECORDS SUMMARY | 2024-09-11 15:18 | XMS_ITS | Encounter Summary ---
Author Organization [facility] [place] [address] Care Team Providers Care Grain Shoveler Name Role Phone Kennedi Shaver MD Primary Care Provider [phone] Encounter Details Date Type Department Care Team (Latest Contact Info) Description 05/29/2024 1:34 PM EDT - 05/29/2024 2:37 PM EDT Hospital Encounter Mammography/[place] [address] Dioni Hector, [address] HEMATOLOGY AND ONCOLOGY [place], [place] [id number] Osteopenia, unspecified location; Age-related osteoporosis without current pathological fracture Discharge Disposition: Home Social History Tobacco Use Types Packs/Day Years Used Date Smoking Tobacco: Former Cigarettes 1977 Smokeless Tobacco: Never Alcohol Use Standard Drinks/Week Comments Yes 14 (1 standard drink = 0.6 oz pu re alcohol) 1 drink a day [facility] Inpatient Questions Answer Date Recorded Does [...] 4:30 PM EST Hospital Encounter Gastroenterology at [place] [phone] Lizet Wilkes MD [facility] [address] 09/29/2024 4:30 PM EST - 09/29/2024 5:00 PM EST Surgery Gastroenterology at [place] [phone] Lizet Wilkes MD [facility] [address] EGD, UPPER GI ENDOSCOPY (WRVU 2.09) 11/09/2024 10:00 AM EST Laboratory Appointment [place] [facility] [place] [address] [place], [place] [phone] 11/09/2024 11:00 AM EST Office Visit Hematology and Oncology at [place] [phone] Faith Caba MD [facility] DR HEMATOLOGY [place] [address] 11/09/2024 12:00 PM EST Appointment Hematology and Oncology at [place] [phone] Scheduled Procedures Name Priority Associated Diagnoses Date/Ti me EGD, UPPER GI ENDOSCOPY (WRVU 2.09) Gastroesophageal reflux disease with esophagitis, unspecified whether hemorrhage 09/29/2024 4:30 PM EST documented as of this encounter Goals Goal Patient Goal Type Associated Problems Recent Progress Patient-Stated? Author DH Home Medication Compliance and Understanding Patient Facing Action Plan Curly Nicolas, [facility] Note: The patient? s goal is to continue positive results of oral chemotherapy by maintaining improved labs PSA or stable scans in clinic for the upcoming year. documented as of this encounter Procedures Procedure Name Priority Date/Time Associated Diagnosis Comments DXA CENTRAL SPINE, HIP, AND/OR WHOLE BODY (GENERIC) Routine 05/29/2024 2:16 PM EDT Osteopenia, unspecified location Age-related osteoporosis without current pathological fracture documented in this encounter Results * DXA Central Spine, Hip, and/or Whole Body (Generic) (05/29/2024 2:16 PM EDT) the[employer]ench WORKSTATION ID [id number] DH RAD Anatomical Region Laterality Modality C-spine, Hip N/A Other Impressions 05/29/2024 2:20 PM EDT Measurements meet WHO criteria for osteoporosis. Bone mineral density measurements are decreased by 12.9% over 2.5 years. Prevent Fractures! PATIENTS NOT ON TREATMENT: For patients with osteopenia, *the fracture risk calculated by FRAX is displayed below*. Offer treatment for osteoporosis (calcium, vitamin D, and medication) if: T less than or equal to -2.5, after excluding or treating secondary causes FRAX gives a 10-year risk of hip fracture greater than or equal to 3% or major osteoporotic fracture (MOF) greater than or equal to 20% Fragility fracture, regardless of T score (fracture without trauma, or from trauma equivalent to falling from standing height or less) If not treating, repeat DXA at the following intervals: T greater than or equal to -1(normal): Repeat DXA in 10-15 years T -1.0 to -1.5 (mild osteopenia): Repeat DXA in 10-15 years T -1.5 to 2.0 (moderate osteopenia): Repeat DXA in 5 years T -2.0 to -2.5 (severe osteopenia): Repeat DXA in 2 years FOR MORE INFORMATION ON ASSESSMENT AND MANAGEMENT: See the Osteoporosis Clinician Guide at the [facility] Knowledge Map weblink (Clinical Resources) or on the intranet website: https://[facility]-intranet.[facility].org/intranet/docs/default-source/i-p-ktpksieee-ma -documents/txmbncuepgyl-xltuggmlg-eezen.pdf?sfvrsn=[email or web address] DXA data sheets with BMD measurements and plots are available in [employer] under the imaging tab. Paper copies will be sent to providers without E- access. If you have received this report without the data sheet and do not have access to [employer], please contact Radiology Bill Adjuster at [phone] Saturday thru Saturday 8am-4pm. ? Bone Density Report ? Name: ?AmandasoraidaChidi Age: ? 78 Sex: ? Male Ethnicity: ? White Date of : 1945 Referring Provider: DIONI HECTOR Study: Bone densitometry was performed. Model: Chogger A (S/N [id number]) FlockTAG version 13.6.0.5 Exam Date: May 29, 2024 Accession number: [id number] Bone Density: Region ? BMD ?T-score ??Z-score ? AP Spine(L1-L4) ?0.757 ?? -2.6 ? -1.9 ? Femoral Neck (Left) ?0.542 ?? -2.8 ? -1.4 ? Total Hip (Left) ? 0.606 ?? -2.8 ? -1.8 ? Total Forearm (Left) ? 0.421 ?? -2.9 ? -3.3 ? 1/3 Forearm (Left) ? 0.566 ?? -2.1 ? -2.8 ? UD Forearm (Left) ?0.292 ?? -2.6 ? -2.6 ? World Health Organization criteria for BMD impression classify patients as: Normal (T-score at or above -1.0), Osteopenia (T-score between -1.0 and -2.5), or Osteoporosis (T-score at or below -2.5). 10-year Fracture Risk: FRAX not reported because: ??Some T-score for Spine Total or Hip Total or Femoral Neck at or below -2.5 Previous Exams: Region ??Exam ? Age ??BMD ?? T-score ??BMD Change ? BMD Change ?Date ?g/cm2 ?vs Baseline ?vs Previous AP Spine (L1-L4) ? 05/29/2024 ??78 ??0.757 ?-2.6 ??-0.113 (-12.9% -0.113 (-12.9% ? 10/10/2021 ??75 ??0.870 ?-1.6 ? Total Hip(Left) ? 05/29/2024 ??78 ??0.606 ?-2.8 ??-0.066 (-9.8%) -0.066 (-9.8%) ? 10/10/2021 ??75 ??0.672 ?-2.2 ? 1/3 Forearm(Left) ? 05/29/2024 ??78 ??0.566 ?-2.1 ??-0.041 (-6.8%) -0.041 (-6.8%) ? 10/10/2021 ??75 ??0.608 ?-1.4 ? Thank you for letting us participate in the care of this patient. ??If you are a health care provider and have any questions regarding this report, please contact the number below. ??For patients who have questions please contact the health care connector that requested your imaging first. ? 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 (as entered by ordering provider) TECHNIQUE: Scans were acquired at the left forearm, lumbar spine and ??left hip using the [employer] Horizon A system. FINDINGS: Femoral neck BMD: 0.542 ? g/cm2 Lowest T-score at the diagnostic region of interest: T-score: -2.8, VIRGIE: left ??total hip, WHO diagnosis: ??osteoporosis ......... Comparison......... Previous scan:10/10/2021 Baseline scan:10/10/2021 Total spine: Compared to the previous, 0.113 ??g/cm2 (12.9 %) decrease. At [facility], least significant change for bone mineral density measurements at the spine region of interest: 0.031 g/cm2. Total hip: Compared to the previous, 0.066 ??g/cm2 (9.8 %) decrease. At [facility], least significant change for bone mineral density measurements at the left total hip region of interest: 0.025 g/cm2. 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 FINDINGS: Femoral neck BMD: 0.542 g/cm2 Lowest T-score at the diagnostic region of interest: T-score: -2.8, VIRGIE: left total hip, WHO diagnosis: osteoporosis ......... Comparison......... Previous scan:10/10/2021 Baseline scan:10/10/2021 Total spine: Compared to the previous, 0.113 g/cm2 (12.9 %) decrease. At [facility], least significant change for bonemineral density measurements at the spine region of interest: 0.031 g/cm2. Total hip: Compared to the previous, 0.066 g/cm2 (9.8 %) decrease. At [facility], least significant change for bonemineral density measurements at the left total hip region of interest: 0.025g/cm2. IMPRESSION Measurements meet WHO criteria for osteoporosis. Bone mineral density measurements are decreased by 12.9% over 2.5 years. Prevent Fractures! PATIENTS NOT ON TREATMENT: For patients with osteopenia, *the fracture risk calculated by FRAX isdisplayed below*. Offer treatment for osteoporosis (calcium, vitamin D, and medication)if: T less than or equal to -2.5, after excluding or treating secondarycauses FRAX gives a 10-year risk of hip fracture greater than or equal to 3% ormajor osteoporotic fracture (MOF) greater than or equal to 20% Fragility fracture, regardless of T score (fracture without trauma, orfrom trauma equivalent to falling from standing height or less) If not treating, repeat DXA at the following intervals: T greater than or equal to -1(normal): Repeat DXA in 10-15 years T -1.0 to -1.5 (mild osteopenia): Repeat DXA in 10-15 years T -1.5 to 2.0 (moderate osteopenia): Repeat DXA in 5 years T -2.0 to -2.5 (severe osteopenia): Repeat DXA in 2 years FOR MORE INFORMATION ON ASSESSMENT AND MANAGEMENT: See the Osteoporosis Clinician Guide at the [facility] Knowledge Map weblink(Clinical Resources) or on the intranet website: https://[facility]-intranet.[facility]una.org/intranet/docs/default-source/n-n-haymvfndb-ma -documents/gdlwjpfpgrzb-jpapvjvjn-ruilm.pdf?sfvrsn=[email or web address] DXA data sheets with BMD measurements and plots are available in [employer] the imaging tab. Paper copies will be sent to providers without [employer] access.If you have received this report without the data sheet and do not haveaccess to [employer], please contact Radiology Bill Adjuster at [phone] Saturday thruFriday 8am-4pm. Bone Density Report Name: Chidi Carbone Age: 78 Sex: Male Ethnicity: White Date of : 1945 Referring Provider: DIONI HECTOR Study: Bone densitometry was performed. Model: Chogger A (S/N [id number]) SW version 13.6.0.5 Exam Date: May 29, 2024 Accession number: [id number] Bone Density: Region BMD T-score Z-score AP Spine(L1-L4) 0.757 -2.6 -1.9 Femoral Neck (Left) 0.542 -2.8 -1.4 Total Hip (Left) 0.606 -2.8 -1.8 Total Forearm (Left) 0.421 -2.9 -3.3 1/3 Forearm (Left) 0.566 -2.1 -2.8 UD Forearm (Left) 0.292 -2.6 -2.6 World Health Organization criteria for BMD impression classify patients as: Normal (T-score at or above -1.0), Osteopenia (T-score between -1.0 and -2.5), or Osteoporosis (T-score at or below -2.5). 10-year Fracture Risk: FRAX not reported because: Some T-score for Spine Total or Hip Total or Femoral Neck at or below -2.5 Previous Exams: Region Exam Age BMD T-score BMD Change BMD Change Date g/cm2 vs Baseline vs Previous AP Spine (L1-L4) 05/29/2024 78 0.757 -2.6 -0.113 (-12.9% -0.113 (-12.9% 10/10/2021 75 0.870 -1.6 Total Hip(Left) 05/29/2024 78 0.606 -2.8 -0.066 (-9.8%) -0.066 (-9.8%) 10/10/2021 75 0.672 -2.2 1/3 Forearm(Left) 05/29/2024 78 0.566 -2.1 -0.041 (-6.8%) -0.041 (-6.8%) 10/10/2021 75 0.608 -1.4 Thank you for letting us participate in the care of this patient. If youare a health care provider and have any questions regarding this report,please contact the number below. For patients who have questions please contactthe health care connector that requested your imaging first. Dioni Hector MANAGER SECURITY AND SAF[employer]Y IMG DEXA ORDERABLE S documented in this encounter Visit Diagnoses Diagnosis Osteopenia, unspecified location Age-related osteoporosis without current pathological fracture Senile osteoporosis Gastroesophageal reflux disease with esophagitis, unspecified whether hemorrhage documented in this encounter Care Teams Grain Shoveler Relationship Specialty Start Date End Date Kennedi Shaver MD [address] [place] [address] PCP - General Family Medicine 08/02/20 06/24/24 documented as of this encounter
--- OUTSIDE RECORDS SUMMARY | 2024-09-11 15:18 | XMS_ITS | Encounter Summary ---
Author Organization [facility] [place] [address] Care Team Providers Care Logistics Planning Engineer Name Role Phone Kennedi Shaver MD Primary Care Provider [phone] Reason for Visit * Reason Comments Follow-up R SHOULDER PAIN Encounter Details Date Type Department Care Team (Late st Contact Info) Description 07/21/2024 2:30 PM EDT Office [place] [address] Marisa Rod PA [facility] [place] [address] Right shoulder pain, unspecified chronicity Social History Tobacco Use Types Packs/Day Years Used Date Smoking Tobacco: Former Cigarettes 1977 Smokeless Tobacco: Never Alcohol Use Standard Drinks/Week Comments Yes 14 (1 standard drink = 0.6 oz pu re alcohol) 1 drink a day [facility] Inpatient Questions Answer Date Recorded [...] Sign Reading Time Taken Comments Blood Pressure - - Pulse - - Temperature - - Respiratory Rate - - Oxygen Saturation - - Inhaled Oxygen Concentration - - Weight 78 kg (172 lb) 07/21/2024 2:29 PM EDT Height 179.1 cm (5' 10.5) 07/21/2024 2:29 PM ED T Body Mass Index 24.33 07/21/2024 2:29 PM EDT documented in this encounter Progress Notes * Marisa Rod PA - 07/21/2024 2:30 PM EDT Images from the original note were not included. Patient Name: Chidi Carbone AGE: 78 y.o. MR#: [id number] Date of Visit: 07/21/2024 Date of Injury/Onset: 1 year Chief Complaint: Right Shoulder Pain History of Present Illness: Mr. Carbone is a right hand dominant 78 y.o. male with a past history of Prostate Cancer in remission, GERD, GI bleed, Anemia, GIRISH, Bilateral TKA (2022, Dr. Melissa) who presents to clinic today for evaluation of the right shoulder. He reports atraumatic onset of shoulder pain x 1 year. Chidi locates their pain deep in the shoulder with associated popping and clicking. Pain is achy in nature. There is some radiation down the lateral arm. Chidi does not have a sense of instability of the shoulder. No numbness or tingling. Denies radiating pain to elbow or wrist. No neck pain. Chidi has tried tylenol daily for symptom relief. He has not had a previous injection. He does not have a history of prior injury or surgery to the shoulder. 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 Active with walking, light yard work. INTERVAL HISTORY 07/21/24: Mr. Carbone had an IR guided glenohumeral joint injection on 02/06. Gave him relief of symptoms for a couple hours however, the pain then swiftly returned. He feels he has also noticed that his superior shoulder protrudes more than it did before. He does not feel excessive pain in his superior shoulder. Most of the pain is in his lateral shoulder with some radiation down the bicep area. Of note, patient was recently seen in the ER for soft tissue swelling in the leftelbow. An MRI was performed which demonstrated likely olecranon bursitis. Patient does have a history of prostate cancer for which he is treated with multiple medications. Patient reports that he stopped his daily Zytiga medication about 3 to 6 months ago. He continues to take his Lupron medicine every 3 months. He is concerned about whether this medication alone is suppressing his prostate cancer. He stopped Zytiga medication as he could not tolerate it with his stomach. Medications and Allergies were reviewed in eD-H ROS: Pertinent items are noted in HPI. Past Medical Hx: Past Medical History: Diagnosis Date HTN (hypertension) Insomnia GIRISH (obstructive sleep apnea) Prostate cancer Past Surgical Hx: Past Surgical History: Procedure Laterality Date IR ARTERIOGRAM MESENTERIC 08/15/2022 IR Arteriogram Mesenteric 08/15/[address] [facility] INTERVENTIONL RAD PRO ARTHROPLASTY KNEE CONDYLE & PLATEAU MEDIAL & LAT COMPARTMENTS Right 12/19/2022 TOTAL KNEE ARTHROPLASTY (WRVU 19.6) performed by Julio Melissa MD at [facility] MAIN OR PRO COLONOSCOPY, DIAGNOSTIC N/A 04/19/2015 COLONOSCOPY, DIAGNOSTIC performed by Nino Rocha MD at [facility] ENDOSCOPY PRO COLONOSCOPY, DIAGNOSTIC N/A 08/16/2022 COLONOSCOPY, DIAGNOSTIC performed by Bubba Wallace MD at [facility] ENDOSCOPY PRO COLONOSCOPY, DIAGNOSTIC N/A 03/17/2024 COLONOSCOPY, DIAGNOSTIC (WRVU 3.26) performed by Marina Gardner MD at [facility] ENDOSCOPY PRO COLONOSCOPY, FLEX, W/CONTROL, BLEEDING 08/16/2022 COLONOSCOPY; W CONTROL OF BLEEDING, ANY METHOD performed by Bubba Wallace MD at [facility] ENDOSCOPY PRO COLONOSCOPY, REMV LESN, SNARE N/A 03/17/2024 COLONOSCOPY, POLYPECTOMY, REMOVAL LESION BY SNARE (WRVU 4.57) performed by Marina Gardnre MD at [facility] ENDOSCOPY PRO DRESSING CHANGE UNDER ANESTHESIA N/A 06/04/2019 DRESSING CHANGE (FOR OTHER THAN RAUSCH) UNDER ANES. (WRVU 0.86) performed by Rodri Villa MD at [facility] MAIN OR PRO EDG FLEXIBLE TRANSORAL ABLATE TUMOR POLYP/LESION W/DILATION & WIRE N/A 04/19/2015 EGD, TRANSORAL; WITH ABLATION OF TUMOR(S), POLYP(S), OR OTHER LESION(S) performed by Nino Rocha MD at [facility] ENDOSCOPY PRO LAPAROSCOPY SURG ESOPHAGOGASTRIC FUNDOPLASTY 03/08/2014 LAPAROSCOPIC MODESTO FUNDOPLASTY performed by Surendra Garcia MD at [facility] MAIN OR PRO PREP SITE TRUNK/ARM/LEG 1ST 100 SQ CM/1PCT Right 06/04/2019 SURGICAL PREP/CREATION RECIPIENT SITE, FIRST 100 SQ CM, LEGS (WRVU 3.65) performed by Rodri Villa MD at [facility] MAIN OR PRO SPLIT GRFT TRUNK, ARM, LEG <100SQCM Right 06/04/2019 SPLIT THICK SKIN GRAFT,100 SQ CM OR LESS, LEGS (WRVU 9.9) performed by Rodri Villa MD at [facility] MAIN OR PRO UPPER GI ENDOSCOPY, BIOPSY 11/27/2011 UPPER GASTROINTESTINAL ENDOSCOPY,WITH BIOPSY SINGLE OR MULTIPLE performed by NINO ROCHA I at [facility] ENDOSCOPY PRO UPPER GI ENDOSCOPY, BIOPSY 04/22/2012 UPPER GASTROINTESTINAL ENDOSCOPY,WITH BIOPSY SINGLE OR MULTIPLE performed by NINO ROCHA I at [facility] ENDOSCOPY PRO UPPER GI ENDOSCOPY, BIOPSY 05/12/2013 UPPER GASTROINTESTINAL ENDOSCOPY,WITH BIOPSY SINGLE OR MULTIPLE performed by Nino Rocha MD at [facility] ENDOSCOPY PRO UPPER GI ENDOSCOPY, BIOPSY 10/20/2013 UPPER GASTROINTESTINAL ENDOSCOPY,WITH BIOPSY SINGLE OR MULTIPLE performed by Nino Rocha MD at [facility] ENDOSCOPY PRO UPPER GI ENDOSCOPY, BIOPSY N/A 06/29/2015 EGD WITH BIOPSY performed by Nino Rocha MD at [facility] ENDOSCOPY PRO UPPER GI ENDOSCOPY, BIOPSY N/A 03/17/2024 EGD WITH BIOPSY (WRVU 2.39) performed by Marina Gardner MD at [facility] ENDOSCOPY PRO UPPER GI ENDOSCOPY, DIAGNOSTIC N/A 08/15/2022 EGD, UPPER GI ENDOSCOPY performed by Bubba Wallace MD at [facility] ENDOSCOPY PRO UPPER GI ENDOSCOPY, DIAGNOSTIC N/A 03/17/2024 EGD, UPPER GI ENDOSCOPY (WRVU 2.09) performed by Marina Gardner MD at [facility] ENDOSCOPY UPPER GI ENDOSCOPY, EXAM 02/13/2011 UPPER GI ENDOSCOPY performed by NINO ROCHA I at [facility] ENDOSCOPY UPPER GI ENDOSCOPY, EXAM 05/12/2013 UPPER GI ENDOSCOPY performed by Nino Rocha MD at [facility] ENDOSCOPY UPPER GI ENDOSCOPY, EXAM N/A 04/19/2015 UPPER GI ENDOSCOPY performed by Nino Rocha MD at [facility] ENDOSCOPY UPPER GI ENDOSCOPY, TUMOR ABLATN 04/22/2012 ENDOSCOPY, UPPER GI, W\ABLATION TUMOR\POLYP\LESION performed by NINO ROCHA I at [facility] ENDOSCOPY XR FLUORO INJECTION DRAINAGE JOINT LG RIGHT Right 02/07/2024 XR Fluoro Guided Joint Injection Large Right 02/07/[address] [facility] RAD XRAY Family Hx: Family History Problem Relation Age of Onset Diabetes Neg Hx Social Hx: Social History Tobacco Use Smoking Status Former Current packs/day: 0.00 Types: Cigarettes Start date: 1962 Quit date: 1977 Years since quittin.8 Smokeless Tobacco Never Social History Substance and Sexual Activity Alcohol Use Yes Alcohol/week: 14.0 standard drinks of alcohol Types: 7 Glasses of wine, 7 Shots of liquor per week Comment: 1 drink a day Objective: Ht 179.1 cm (5' 10.5) Wt 78 kg (172 lb) BMI 24.33 kg/m?? GENERAL: Well appearing, appropriate NEUROVASCULAR: Sensation intact to light touch in the Right upper extremity. Warm and well perfusedhand. SKIN: No significant abrasions or lesions about the shoulder. MUSCULOSKELETAL: Right Shoulder Examination Visible abnormality: yes, protrusion of the right distal clavicle Scapulothoracic Rhythm: Normal Rotator Cuff Atrophy: No Tenderness to palpation: No Palpable crepitus: Yes Range of motion Right Forward Elevation: 90 active, 100 passive with pain and crepitus External Rotation: 10 without lag, 20 passive with crepitus Internal Rotation: Buttock Strength Testing: Abduction: 5-/5 External Rotation: 5-/5 Resisted Internal Rotation: 5-/5 Rotator Cuff Testing Empty Can/Lilly's: Positive Bear Hug: Negative Belly Press: Equivocal Biceps/Labrum Groove TTP: Negative Speeds: Negative [place]'s: Negative AC Joint TTP: Negative Cross-body: Negative Impingement Neer's: limited by ROM Hawkin's: limited by ROM Osteoarthritis: Chondral Shear Test: Positive Cervical Range of motion: Normal Left elbow exam: Posterior elbow with soft tissue edema. No erythema, warmth, or drainage. Questionnaires: 07/21/2024 General Health, Prior Treatments, PreExisting Condition, Health Habits, About You PROMIS-10 General Health Good PROMIS-10 Quality of Life Good PROMIS-10 Physical Health Fair PROMIS-10 Mental Health Good PROMIS-10 Social Activity Good PROMIS-10 Everyday Activities Mostly PROMIS-10 Pain 3 PROMIS-10 Fatigue Moderate PROMIS-10 Social Roles Good PROMIS-10 Anxious or Depressed Rarely PROMIS PHYSICAL SCORE (range 16-68) 42.3 PROMIS MENTAL SCORE (range 21-68) 45.8 Treatments Tried Acetaminophen (e.g. Tylenol) 07/21/2024 [facility] Response ASES VAS-RIGHT 30 ASES ADL-RIGHT ARM 25 ASES RIGHT ARM 55 Diagnostic Studies: no new images today: prior images demonstrate osteoarthritis of the right glenohumeral joint. There is mild arthritis of the AC joint. Assessment/Plan: Chidi is a 78 y.o. year old male with history of Prostate CA with severe right glenohumeral arthritis and left elbow swelling. Unfortunately, he had little to no relief of symptoms from his prior glenohumeral joint injection. I again reviewed the arthritis ladder and patient is aware that the only definitive management that we have for arthritis is a shoulder replacement surgery. Patient is not interested in speaking further about shoulder replacement. We discussed the possibility of a subacromial injection which addresses a different location in the shoulder. We reviewed that this may or may not provide him with additional relief. However, it is a low risk injection overall and could provide him some benefit. Patient elected to move forward with subacromial injection. Please see injection note below. He will continue other conservative measures for arthritis. Regarding the subjective increased protrusion of his superior shoulder, this likely represents arthritis flare given he has AC joint osteoarthritis. However, given his history of prostate cancer, Iwould like to obtain additional x-rays today to rule out a more ominous finding. Regarding the soft tissue swelling in his contralateral elbow, MRI and physical exam are consistentwith olecranon bursitis. He does have a follow-up visit scheduled on August [address] Baez. I encouraged the patient to use compression over his left elbow in the meantime which often suffices to cure olecranon bursitis. I also encouraged him to avoid resting on his left elbow. Provided counseling on alarm symptoms for infection and when to go to ER. Questions solicited and answered. The patient verbalized understanding and agreement of the plan, he knows to contact us if they have any other questions or concerns. Plan as follows: Right shoulder - subacromial injection - xray after visit (will reach out with results and relay to Dr. Baez if any suspicious findings) Left elbow -compression -avoid resting elbow on hard surfaces - pt already has visit scheduled with Dr. Baez on 08/11 PROCEDURE NOTE: right Subacromial Joint Injection A time-out was performed and the right shoulder was confirmed to be the site of injection. The patient was confirmed to have no allergies to betadine, local anesthetics, or corticosteroids. Murillo was counseled about the potential risks of the procedure including infection, bleeding, steroid flare,transient increase in blood glucose, nerve/cartilage/tendon injury, and skin blanching at the injection site. There also is increased risk with repeated injections. The skin was prepped widely over the posterolateral of the shoulder with Chloraprep. Then, using sterile technique, a solution consisting of 4cc 2% lidocaine and 1 cc Kenalog 40 (40 mg) was injected just inferior and medial to the posterolateral corner of the acromion and directed toward the coracoid process using a 22 gauge needle. The needle was felt to slide just inferior to the acromion and the injection flowed freely into the subacromial space. The skin was cleaned with alcohol and a Band-Aid was applied. The patient tolerated the procedure well. Marisa Rod PA-C Department of Orthopaedic Surgery [facility] The above documentation was partially completed using [employer] voice recognition software. * Marisa Rod PA - 07/21/2024 2:30 PM EDT Called Mr. Carbone with post visit xray results which continue to demonstrate severe glenohumeral and AC joint arthritis. There is no evidence of obvious metastatic disease in the shoulder. Tried to leave , however, his mailbox was full. documented in this encounter Plan of Treatment Upcoming Encounters Date Type Department Care Team (Latest Contact Info) Description 09/29/2024 4:30 PM EST Hospital Encounter Gastroenterology at [place] [phone] Lizet Wilkes MD [facility] [place] [address] 09/29/2024 4:30 PM EST - 09/29/2024 5:00 PM EST Surgery [place] [phone] Lizet Wilkes MD [facility] [address] EGD, UPPER GI ENDOSCOPY (WRVU 2.09) 11/09/2024 10:00 AM EST Laboratory Appointment Lab at [facility] Hematology Oncology [address] [place] [phone] 11/09/2024 11:00 AM EST Office Visit Hematology and Oncology at [place] [phone] Faith Caba MD [facility] [address] [place] [address] 11/09/2024 12:00 PM EST Appointment Hematology [place] [phone] Scheduled Procedures Name Priority Associated Diagnoses Date/Ti me EGD, UPPER GI ENDOSCOPY (WRVU 2.09) Gastroesophageal reflux disease with esophagitis, unspecified whether hemorrhage 09/29/2024 4:30 PM EST documented as of this encounter Goals Goal Patient Goal Type Associated Problems Recent Progress Patient-Stated? Author [facility] Medication Compliance and Understanding Patient Facing Action Plan Curly Nicolas, [facility] Note: The patient? s goal is to continue positive results of oral chemotherapy by maintaining improved labs PSA or stable scans in clinic for the upcoming year. documented as of this encounter Results * XR Shoulder Right (Generic) (07/21/2024 3:32 PM EDT) WORKSTATION ID [id number] RAD Anatomical Region Laterality Modality Shoulder Right [...] who have questions please contact the health hospice home care coordinator that requested your imaging [...] patients who have questions please contactthe health hospice home care coordinator that requested your imaging first. Dev Mathis MD IMG DX ORDERABLES documented in this encounter Visit Diagnoses Diagnosis Right shoulder pain, unspecified chronicity Right shoulder pain, unspecified chronicity Gastroesophageal reflux disease with esophagitis, unspecified whether hemorrhage documented in this encounter Administered Medications Inactive Administered Medications - up to 3 most recent administrations Medication Order MAR Action Action Date Dose Rate Site lidocaine (pf) (Xylocaine) (20 mg/mL) 2% injection 4 mg 4 mg, Other, ONCE, 1 dose, On Sat07/21/24 at 1515, Intra-articular injection, Routine Given 07/21/2024 3:28 PM EDT 4 mg triamcinolone acetonide (Kenalog-40) (40 mg/mL) injection 40 mg 40 mg, Intra-articular, ONCE, 1 dose, On Sat07/21/24 at 1515, Routine Given 07/21/2024 3:28 PM EDT 40 mg documented in this encounter Care Teams Logistics Planning Engineer Relationship Specialty Start Date End Date Kennedi Shaver MD [facility] [address] [place] [address] PCP - General Family Medicine 06/25/24 documented as of this encounter
--- OUTSIDE RECORDS SUMMARY | 2024-09-11 15:18 | XMS_ITS | Encounter Summary ---
Author Organization [facility] [place] [address] Care Team Providers Care Security Compliance Specialist Name Role Phone Kennedi Shaver MD Primary Care Provider [phone] Encounter Details Date Type Department Care Team (Latest Contact Info) Description 04/28/2024 Travel Social History Tobacco Use Types Packs/Day [...] (Latest Contact Info) Description 09/29/2024 4:30 PM [facility] Hospital [place] [phone] Lizet Wilkes MD [facility] [place] [address] 09/29/2024 4:30 PM EST - 09/29/2024 5:00 PM EST Surgery Gastroenterology at [place] [phone] Lizet Wilkes MD [facility] [place] [address] EGD, UPPER GI ENDOSCOPY (WRVU 2.09) 11/09/2024 10:00 AM EST Laboratory Appointment Lab at [facility] Hematology Oncology [address] [place], [place] [phone] 11/09/2024 11:00 AM EST Office Visit Hematology and Oncology at [place] [phone] Faith Caba MD [facility] DR [place] [address] 11/09/2024 12:00 PM EST Appointment Hematology and Oncology at [place] [phone] Scheduled Procedures Name Priority Associated Diagnoses Date/Ti me EGD, UPPER GI ENDOSCOPY (WRVU 2.09) Gastroesophageal reflux disease with esophagitis, unspecified whether hemorrhage 09/29/2024 4:30 PM EST documented as of this encounter Goals Goal Patient Goal Type Associated Problems Recent Progress Patient-Stated? Author [facility] Medication Compliance and Understanding Patient Facing Action Plan Curly Nicolas, [facility] Note: The patient? s goal is to continue positive results of oral chemotherapy by maintaining improved labs PSA or stable scans in clinic for the upcoming year. documented as of this encounter Visit Diagnoses Not on filedocumented in this encounter Care Teams Security Compliance Specialist Relationship Specialty Start Date End Date Kennedi Shaver MD [facility] [address] [place] [address] PCP - General Family Medicine 08/02/20 06/24/24 documented as of this encounter
--- OUTSIDE RECORDS SUMMARY | 2024-09-11 15:18 | XMS_ITS | Encounter Summary ---
Author Organization [facility] [place] [address] Care Team Providers Care Bill Of Lading Clerk Name Role Phone Kennedi Shaver MD Primary Care Provider [phone] Encounter Details Date Type Department Care Team (Latest Contact Info) Description 05/29/2024 Travel Social History Tobacco Use Types Packs/Day [...] Contact Info) Description 09/29/2024 4:30 PM [facility] Hospital [facility] [place] [phone] Lizet Wilkes MD [facility] [place] [address] 09/29/2024 4:30 PM EST - 09/29/2024 5:00 PM EST Surgery Gastroenterology at [place] [phone] Lizet Wilkes MD [facility] [place] [address] EGD, UPPER GI ENDOSCOPY (WRVU 2.09) 11/09/2024 10:00 AM EST Laboratory Appointment Lab at [facility] [place] [address] [place], [place] [phone] 11/09/2024 11:00 AM EST Office Visit Hematology and Oncology at [place] [phone] Faith Caba MD [facility] [place] [address] 11/09/2024 12:00 PM EST Appointment Hematology [place] [phone] Scheduled Procedures Name Priority Associated Diagnoses Date/Ti me EGD, UPPER GI ENDOSCOPY (WRVU 2.09) Gastroesophageal reflux disease with esophagitis, unspecified whether hemorrhage 09/29/2024 4:30 PM EST documented as of this encounter Goals Goal Patient Goal Type Associated Problems Recent Progress Patient-Stated? Author [facility] Medication Compliance and Understanding Patient Facing Action Plan Curly Nicolas, [facility] Note: The patient? s goal is to continue positive results of oral chemotherapy by maintaining improved labs PSA or stable scans in clinic for the upcoming year. documented as of this encounter Visit Diagnoses Not on filedocumented in this encounter Care Teams Bill Of Lading Clerk Relationship Specialty Start Date End Date Kennedi Shaver MD [facility] [address] [place] [address] PCP - General Family Medicine 08/02/20 06/24/24 documented as of this encounter
--- OUTSIDE RECORDS SUMMARY | 2024-09-11 15:18 | XMS_ITS | Encounter Summary ---
Author Organization [facility] [place] [address] Care Team Providers Care Marketing Analytics Lead Name Role Phone Kennedi Shaver MD Primary Care Provider [phone] Encounter Details Date Type Department Care Team (Late st Contact Info) Description 08/04/2024 [place]ty [place] [address] Deborah Soares CPHT Social History Tobacco Use Types Packs/Day Years Used Date Smoking Tobacco: Former Cigarettes 1977 Smokeless Tobacco: Never Alcohol Use Standard Drinks/Week Comments Yes 14 (1 standard drink = 0.6 oz pu re alcohol) 1 drink [facility] Questions Answer Date Recorded Does [...] as of this encounter Progress Notes * Deborah Soares CPHT - 08/04/2024 11:59 PM EST The [facility] has completed a benefits investigation for Chidi Carbone to review their eligibility to fill at [facility]. Per patient's medication list they are prescribedAbiraterone and the medication is able to be filled at the [facility]. The patient was filling the medication through Specialty Pharmacy, but has discontinued the medication documented in this encounter Plan of Treatment Upcoming Encounters Date Type Department Care Team (Latest Contact Info) Description 09/29/2024 4:30 PM EST Hospital [place] [phone] Lizet Wilkes MD [facility] [place] [address] 09/29/2024 4:30 PM EST - 09/29/2024 5:00 PM EST [place] [address] Lizet Wilkes MD [facility] [place] [address] EGD, UPPER GI ENDOSCOPY (WRVU 2.09) 11/09/2024 10:00 AM EST Laboratory Appointment Lab at [facility] Hematology Oncology [address] [place] [phone] 11/09/2024 11:00 AM EST Office Visit [place] [phone] Fatih Caba MD [facility] [place] [address] 11/09/2024 12:00 PM EST Appointment [place] [phone] Scheduled Procedures Name Priority Associated Diagnoses Date/Ti me EGD, UPPER GI ENDOSCOPY (WRVU 2.09) Gastroesophageal reflux disease with esophagitis, unspecified whether hemorrhage 09/29/2024 4:30 PM EST documented as of this encounter Goals Goal Patient Goal Type Associated Problems Recent Progress Patient-Stated? Author DH Home Medication Compliance and Understanding Patient Facing Action Plan Curly Nicolas, [facility] Note: The patient? s goal is to continue positive results of oral chemotherapy by maintaining improved labs PSA or stable scans in clinic for the upcoming year. documented as of this encounter Visit Diagnoses Not on filedocumented in this encounter Care Teams Marketing Analytics Lead Relationship Specialty Start Date End Date Kennedi Shaver MD [facility] [address] [place] [address] PCP - General Family Medicine 06/25/24 documented as of this encounter
--- OUTSIDE RECORDS SUMMARY | 2024-09-11 15:18 | XMS_ITS | Encounter Summary ---
[place] [address] Care Team Providers Care Adapted Physical Education Specialist Name Role Phone Kennedi Shaver MD Primary Care Provider Reason for Referral * Diagnostic Test (Routine) - Closed Specialty Diagnoses / Procedures Referred By Blaine peralta Referred To Contact Radiology Diagnoses Soft tissue mass Procedures MRI Elbow wwo Contrast Left Regan Baez MD [facility] [place] [address] [place] [address] Referral ID Status Reason Start Date Expiration Date V isits Requested Visits Authorized [id number] Closed Specialty Service Requested 07/01/2024 12/30/2025 1 1 Encounter Details Date Type Department Care Team (Late st Contact Info) Description 07/01/2024 [place] [phone] Regan Baez MD [facility] [place] [address] Soft tissue mass Social History Tobacco Use Types Packs/Day Years [...] 4:30 PM EST Hospital Encounter Gastroenterology at [place] [phone] Lizet Wilkes MD [facility] [address] 09/29/2024 4:30 PM EST - 09/29/2024 5:00 PM EST [place] [phone] Lizet Wilkes MD [facility] [place] [address] EGD, UPPER GI ENDOSCOPY (WRVU 2.09) 11/09/2024 10:00 AM EST Laboratory Appointment Lab at [facility] Hematology Oncology [address] [place] [phone] 11/09/2024 11:00 AM EST Office Visit Hematology and Oncology at [place] [phone] Faith Caba MD [facility] DR HEMATOLOGY [place] [address] 11/09/2024 12:00 PM EST Appointment [place]ology [place] [phone] Scheduled Procedures Name Priority Associated Diagnoses Date/Ti me EGD, UPPER GI ENDOSCOPY (WRVU 2.09) Gastroesophageal reflux disease with esophagitis, unspecified whether hemorrhage 09/29/2024 4:30 PM EST documented as of this encounter Goals Goal Patient Goal Type Associated Problems Recent Progress Patient-Stated? Author Home Medication Compliance and Understanding Patient Facing Action Plan Curly Nicolas, [facility] Note: The patient? s goal is to continue positive results of oral chemotherapy by maintaining improved labs PSA or stable scans in clinic for the upcoming year. documented as of this encounter Results * MRI Elbow wwo Contrast Left (07/08/2024 7:31 PM EDT) Periscope WORKSTATION ID [id number] RAD Anatomical Region Laterality Modality Elbow Left [...] who have questions please contact the health respiratory care assistant that requested your imaging first. ? Electronically signed by: Ann Evans MD, [facility] ([phone]), at 07/08/2024 9:48 PM Narrative 07/08/2024 9:48 PM EDT EXAMINATION: MRI [...] 37, series 5001 image 16) that contains [id number], T1 hypointense nonenhancing fluid. The lesion demonstrates [...] patients who have questions please contactthe health respiratory care assistant that requested your imaging first. Electronically signed by: Ann Evans MD, [facility]([phone]), at 07/08/2024 9:48 PM Regan Baez MD IMG MRI ORDERABLES documented in this encounter Visit Diagnoses Diagnosis Soft tissue mass Disorders of soft tissue, unspecified Soft tissue mass Disorders of soft tissue, unspecified Gastroesophageal reflux disease with esophagitis, unspecified whether hemorrhage documented in this encounter Care Teams Adapted Physical Education Specialist Relationship Specialty Start Date End Date Kennedi Shaver MD [address] [facility] [address] [place] [address] PCP - General Family Medicine 06/25/24 documented as of this encounter
--- OUTSIDE RECORDS SUMMARY | 2024-09-11 15:18 | XMS_ITS | Encounter Summary ---
Author Organization [facility] [place] [address] Care Team Providers Care Technical Testing Engineer Name Role Phone Kennedi Shaver MD Primary Care Provider [phone] Reason for Visit * Reason Comments Establish Care LEFT ELBOW MASS, rig ht elbow pain * Consultation (Routine) - Authorized Specialty Diagnoses / Procedures Referred By Blaine peralta Referred To Contact Orthopaedics Diagnoses Mass of elbow region Soft mobile mass of left elbow, noted recently. Xrays done at [facility] during ER evaluation- non specific. Also still having pain in the right shoulder despite injection. Kennedi Shaver MD [address] [place] [address] [facility] [address] [place] [address] Regan Baez MD [facility] [place] [address] Referral ID Status Reason Start Date Expiration Date Visits Requested Visits Authorized [id number] Authorized Consult, Test & Treat PCP Updated and/or Approved 06/12/2024 12/13/2024 6 6 Encounter Details Date Type Department Care Team (Late st Contact Info) Description 08/11/2024 11:10 AM EST Office [place] [address] Regan Baez MD [facility] DR [place] [address] Bilateral olecranon bursitis Social History Tobacco Use Types Packs/Day Years [...] - Inhaled Oxygen Concentration - - Weight 75.8 kg (167 lb) 08/11/2024 11:06 AM EST Height 177.8 cm (5' 10) 08/11/2024 11:06 AM EST Body Mass Index 23.96 08/11/2024 11:06 AM EST documented in this encounter Progress Notes * Abby Neff PA - 08/11/2024 11:10 AM EST Images from the original note were not included. Orthopaedic Oncology Outpatient Consultation Note [facility] [place], [place] [address] FAX: [facility] Newsletter This is a consultation for patient Chidi Carbone at the request of Dr. Shaver. Reason for Consultation: soft tissue lesions of the bilateral elbows History of Present Condition: Chidi Carbone is a pleasant 78 y.o. male with a history of metastatic prostate cancer who visits the Orthopaedic Oncology clinic today. This lesion was discovered initially in the left elbow 3 months ago. Chidi reports insidious onset of the development of the lesion in his left elbow about 3 months ago. He went to the emergency room for evaluation of this. He notes that he does not have pain radiating down the arm and denies distal numbness or tingling. He has noticed that the left elbow mass has started decreasing in size. Recently, he has developed a similar mass in the right elbow as well. Hehas right shoulder pain, for which he is currently being treated as well. Mr. Carbone has also recently noticed a bump in his upper back. He cannot see it, but his has noticed it and he can feel it when he is sitting. Pertinent negatives: no weight loss, no fevers or chills, no constitutional symptoms. The intake form for Chidi Carbone was completed by him or his accompanying adult and scanned into the medical record. This form was reviewed in its entirety, please refer to it. Some of the relevantfeatures are included here. Past Medical History: Active Ambulatory Problems Diagnosis Date Noted GERD (gastroesophageal reflux disease) 11/27/2011 Neoplasm of prostate, 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 03/11/2017 Hypertension 03/14/2020 GI bleed 08/14/2022 Acute blood loss anemia 08/16/2022 GIRISH (obstructive sleep apnea) 11/15/2022 12/19/22 S/P right total knee arthroplasty (Dr. Melissa) 12/19/2022 Resolved Ambulatory Problems Diagnosis Date Noted No Resolved Ambulatory Problems Past Medical History: Diagnosis Date HTN (hypertension) Insomnia Prostate cancer Past Surgical History Past Surgical History: Procedure Laterality Date IR ARTERIOGRAM MESENTERIC 08/15/2022 IR Arteriogram Mesenteric 08/15/2022 Santo Duarte MD [facility] INTERVENTIONL RAD PRO ARTHROPLASTY KNEE CONDYLE & PLATEAU MEDIAL & LAT COMPARTMENTS Right 12/19/2022 TOTAL KNEE ARTHROPLASTY (WRVU 19.6) performed by Julio Melissa MD at [facility] MAIN OR PRO COLONOSCOPY, DIAGNOSTIC N/A 04/19/2015 COLONOSCOPY, DIAGNOSTIC performed by Nino Rocha MD at [facility] ENDOSCOPY PRO COLONOSCOPY, DIAGNOSTIC N/A 08/16/2022 COLONOSCOPY, DIAGNOSTIC performed by Bubba Wallace MD at [facility] ENDOSCOPY PRO COLONOSCOPY, DIAGNOSTIC N/A 03/17/2024 COLONOSCOPY, DIAGNOSTIC (WRVU 3.26) performed by Marina Gardner MD at [facility] ENDOSCOPY PRO COLONOSCOPY, FLEXIBLE W CONTROL BLEEDING, ANY METHOD 08/16/2022 COLONOSCOPY; W CONTROL OF BLEEDING, ANY METHOD performed by Bubba Wallace MD at [facility] ENDOSCOPY PRO COLONOSCOPY, REMV LESN, SNARE N/A 03/17/2024 COLONOSCOPY, POLYPECTOMY, REMOVAL LESION BY SNARE (WRVU 4.57) performed by Marina Gardner MD at [facility] ENDOSCOPY PRO DRESSING CHANGE UNDER ANESTHESIA N/A 06/04/2019 DRESSING CHANGE (FOR OTHER THAN RAUSCH) UNDER ANES. (WRVU 0.86) performed by Rodri Villa MD at [facility] MAIN OR [facility] EDG FLEXIBLE TRANSORAL ABLATE TUMOR POLYP/LESION W/DILATION & WIRE N/A 04/19/2015 EGD, TRANSORAL; WITH ABLATION OF TUMOR(S), POLYP(S), OR OTHER LESION(S) performed by Nino Rocha MD at [facility] ENDOSCOPY PRO LAPAROSCOPY SURG ESOPHAGOGASTRIC FUNDOPLASTY 03/08/2014 LAPAROSCOPIC MODESTO FUNDOPLASTY performed by Surendra Garcia MD at [facility] MAIN OR PRO PREP SITE TRUNK/ARM/LEG 1ST 100 SQ CM/1PCT Right 06/04/2019 SURGICAL PREP/CREATION RECIPIENT SITE, FIRST 100 SQ CM, LEGS (WRVU 3.65) performed by Rodri Villa MD at [facility] MAIN OR PRO SPLIT GRFT TRUNK, ARM, LEG <100SQCM Right 06/04/2019 SPLIT THICK SKIN GRAFT,100 SQ CM OR LESS, LEGS (WRVU 9.9) performed by Rodri Villa MD at [facility] MAIN OR PRO UPPER GI ENDOSCOPY, BIOPSY 11/27/2011 UPPER GASTROINTESTINAL ENDOSCOPY,WITH BIOPSY SINGLE OR MULTIPLE performed by NINO ROCHA I at [facility] ENDOSCOPY PRO UPPER GI ENDOSCOPY, BIOPSY 04/22/2012 UPPER GASTROINTESTINAL ENDOSCOPY,WITH BIOPSY SINGLE OR MULTIPLE performed by NINO ROCHA I at [facility] ENDOSCOPY PRO UPPER GI ENDOSCOPY, BIOPSY 05/12/2013 UPPER GASTROINTESTINAL ENDOSCOPY,WITH BIOPSY SINGLE OR MULTIPLE performed by Nino Rocha MD at [facility] ENDOSCOPY PRO UPPER GI ENDOSCOPY, BIOPSY 10/20/2013 UPPER GASTROINTESTINAL ENDOSCOPY,WITH BIOPSY SINGLE OR MULTIPLE performed by Nnio Rocha MD at [facility] ENDOSCOPY PRO UPPER GI ENDOSCOPY, BIOPSY N/A 06/29/2015 EGD WITH BIOPSY performed by Nino Rocha MD at [facility] ENDOSCOPY PRO UPPER GI ENDOSCOPY, BIOPSY N/A 03/17/2024 EGD WITH BIOPSY (WRVU 2.39) performed by Marina Gardner MD at [facility] ENDOSCOPY PRO UPPER GI ENDOSCOPY, DIAGNOSTIC N/A 08/15/2022 EGD, UPPER GI ENDOSCOPY performed by Bubba Wallace MD at [facility] ENDOSCOPY PRO UPPER GI ENDOSCOPY, DIAGNOSTIC N/A 03/17/2024 EGD, UPPER GI ENDOSCOPY (WRVU 2.09) performed by Marina Gardner MD at [facility] ENDOSCOPY UPPER GI ENDOSCOPY, EXAM 02/13/2011 UPPER GI ENDOSCOPY performed by NINO ROCHA I at [facility] ENDOSCOPY UPPER GI ENDOSCOPY, EXAM 05/12/2013 UPPER GI ENDOSCOPY performed by Nino Rocha MD at [facility] ENDOSCOPY UPPER GI ENDOSCOPY, EXAM N/A 04/19/2015 UPPER GI ENDOSCOPY performed by Nino Rocha MD at [facility] ENDOSCOPY UPPER GI ENDOSCOPY, TUMOR ABLATN 04/22/2012 ENDOSCOPY, UPPER GI, W\ABLATION TUMOR\POLYP\LESION performed by NINO ROCHA I at [facility] ENDOSCOPY XR FLUORO INJECTION DRAINAGE JOINT LG RIGHT Right 02/07/2024 XR Fluoro Guided Joint Injection Large Right 02/07/2024 Doris Cordova, [facility] RAD XRAY Social History - Relationship status - he is . Social History Tobacco Use Smoking Status Former Current packs/day: 0.00 Types: Cigarettes Start date: 1962 Quit date: 1977 Years since quittin.8 Smokeless Tobacco Never Social History Substance and Sexual Activity Alcohol Use Yes Alcohol/week: 14.0 standard drinks of alcohol Types: 7 Glasses of wine, 7 Shots of liquor per week Comment: 1 drink a day Family History Family History Problem Relation Age of Onset Diabetes Neg Hx Review of Systems: In addition to the findings in the past medial history and history of present illness, review of 14organ systems was positive for right shoulder pain. All other systems were negative. Physical Examination: Constitutional: BP Readings from Last 1 Encounters: 08/04/24 125/58 Pulse Readings from Last 1 Encounters: 08/04/24 96 Height: 177.8 cm (5' 10) Weight: 75.8 kg (167 lb) 177.8 cm (5' 10) Weight: 75.8 kg (167 lb) Body mass index is 23.96 kg/m??. Neurological/Psychiatric - he is alert and oriented to person, place, time, and situation. he is inno apparent distress. his affect was appropriate. his mood was positive. Sensation in the bilateral lower extremities showed normal sensation to light and dull touch in alldermatomal distributions. Cardiovascular: Peripheral pulses were 2+ (normal) for the radial arteries bilaterally. Capillary refill was <2 second in all the distal digits. There was no distal edema. Integumentary - in general his skin showed only age-appropriate findings. The skin overlying the lesion demonstrated no abnormalities. On exam of the bilateral elbows, there are soft, freely mobile masses over the olecranon. There areminimally tender. Musculoskeletal examination Bilateral elbows with 0 degrees of extension and 145 degrees of flexion. He has full, symmetric pronation and supination. Imaging Studies personally seen and interpreted by me: XR of the left elbow from 05/29/2024 shows soft tissue thickening overlying the olecranon process. There is also evidence of insertional triceps calcific tendinopathy. MRI of the left elbow from 07/08/2024 shows a T2 hyperintense T1 hypointense nonenhancing fluid collection in the subcutaneous tissue posterior to the olecranon. Laboratory Studies: Lab Results Component Value Date WBC 9.63 (H) 08/04/2024 HGB 10.3 (L) 08/04/2024 HCT 33.0 (L) 08/04/2024 PLATELET 396 (H) 08/04/2024 CREATININE 0.95 08/04/2024 BUN 19 08/04/2024 NA 138 08/04/2024 K 4.8 08/04/2024 INR 1.1 11/08/2022 Estimated Creatinine Clearance: 65.1 mL/min (by Cockcroft-Gault based on SCr of 0.95 mg/dL). Impression & Plan: Chidi Carbone is a pleasant 78 y.o. male who based upon his history, physical exam, and imaging studies appears to have bilateral olecranon bursitis. We discussed continued conservative and operative treatment options for him. Following our discussion, he would like to continue rest, ice, compression and elevation. He was given compression sleeves today. We will see him back as needed. Chidi Carbone received teaching today that included the differential diagnosis, natural history, and treatment options for the lesion that initiated this consultation, he demonstrated excellent understanding of the information conveyed. I answered all his questions to the best my ability, he demonstrated good comprehension of the answers, he will call with questions, concerns, or if he experiences any new symptoms or findings. Dr. Baez saw and evaluated the patient and agrees with the assessment and plan. ROSA Warner Please copy this note to: Kennedi Shaver MD [address] [place] [address] Kennedi Shaver MD [address] [place] [address] documented in this encounter Plan of Treatment Upcoming Encounters Date Type Department Care Team (Latest Contact Info) Description 09/29/2024 4:30 PM EST Hospital Encounter Gastroenterology at [place] [phone] Lizet Wilkes MD [facility] [place] [address] 09/29/2024 4:30 PM EST - 09/29/2024 5:00 PM EST Surgery Gastroenterology at [place] [phone] Lizet Wilkes MD [facility] [place] [address] EGD, UPPER GI ENDOSCOPY (WRVU 2.09) 11/09/2024 10:00 AM EST Laboratory Appointment Lab at [facility] Hematology Oncology [address] [place], [place] [phone] 11/09/2024 11:00 AM EST Office Visit Hematology and Oncology at [place] [phone] Faith Caba MD [facility] DR HEMATOLOGY [place] [address] 11/09/2024 12:00 PM EST Appointment [place] [phone] Scheduled Procedures Name Priority Associated [...] as of this encounter Visit Diagnoses Diagnosis Bilateral olecranon bursitis Gastroesophageal reflux disease with esophagitis, unspecified whether hemorrhage documented in this encounter Care Teams Technical Testing Engineer Relationship Specialty Start Date End Date Kennedi Shaver MD [facility] [address] [place] [address] PCP - General Family Medicine 06/25/24 documented as of this encounter
--- OUTSIDE RECORDS SUMMARY | 2024-09-11 15:18 | XMS_ITS | Encounter Summary ---
Author Organization [facility] [place] [address] Care Team Providers Care Manager Lighting Name Role Phone Kennedi Shaver MD Primary Care Provider [phone] Encounter Details Date Type Department Care Team (Late st Contact Info) Description 05/18/2024 Telephone [place]ematology [place] [phone] Michelle Sanchez RN Social History Tobacco Use Types Packs/Day Years Used Date Smoking Tobacco: Former Cigarettes 1977 Smokeless Tobacco: Never Alcohol Use Standard Drinks/Week Comments Yes 14 (1 standard drink = 0.6 oz pu re alcohol) 1 drink a day [facility] Inpatient Questions Answer Date Recorded Does Anyone [...] encounter Miscellaneous Notes * Telephone Encounter - Patricia James, RN - 05/18/2024 12:10 PM EDT Per Blanche Hector APRN: Thanks, Eliud. I don't think this is connected to his prostate cancer/tx. I would advise him to f/u with PCP and/or Urgent Care for evaluation. Above reviewed w/ pt. He had questions regarding DEXA scan which were answered to his apparent satisfaction. Pt verbalized understanding and agreement and knows to call clinic with any concerns and/or questions. * Telephone Encounter - Michelle Sanchez RN - 05/18/2024 8:38 AM EDT Received following message from loan secretary: Pt called and has had a lump appear on his elbow. He would like someone to look at it [phone] Chart review: Metastatic prostate to bone. T/C to patient: Reached voicemail at 0948. Left brief message containing contact information. T/C with patient who returned call: He reports that he felt some pain in his left elbow yesterday and then developed a lump that he nowestimates to extend out from elbow 1/2 and length is 1.5. He states there may be mild heat but heis unsure and thought there was mild redness earlier this am. It now blends in with his skin. No drainage. No bruising. Skin intact. He denies fevers or any other signs of illness. No impact on mobility of elbow joint. He describes it as hard, immobile, and affixed to the bone.He is not aware of any trauma or overuse of the joint. Next appointment is for DXA on 05/29/2024. His PCP is two hours away from him so he has not reached out to be seen yet. Plan: Avoid leaning/pressure on site and apply ice several times daily. Monitor for any signs of infection: redness, heat, drainage, fevers, worsening pain. Provider to be made aware and patient will receive call back to discuss recommendations. documented in this encounter Plan of Treatment Upcoming Encounters Date Type Department Care Team (Latest Contact Info) Description 09/29/2024 4:30 PM EST Hospital En[place] [phone] Lizet Wilkes MD [facility] [place] [address] 09/29/2024 4:30 PM EST - 09/29/2024 5:00 PM EST [place] [phone] Lizet Wilkes MD [facility] [place] [address] EGD, UPPER GI ENDOSCOPY (WRVU 2.09) 11/09/2024 10:00 AM EST Laboratory Appointment Lab at [facility] Hematology Oncology [address] [place] [phone] 11/09/2024 11:00 AM EST Office Visit [place]ology [place] [phone] Faith Caba MD [facility] DR HEMATOLOGY [place] [address] 11/09/2024 12:00 PM EST Appointment [place]ology [place] [phone] Scheduled Procedures Name Priority Associated Diagnoses Date/Ti me EGD, UPPER GI ENDOSCOPY (WRVU 2.09) Gastroesophageal reflux disease with esophagitis, unspecified whether hemorrhage 09/29/2024 4:30 PM EST documented as of this encounter Goals Goal Patient Goal Type Associated Problems Recent Progress Patient-Stated? Author [facility] Medication Compliance and Understanding Patient Facing Action Plan Curly Nicolas, [facility] Note: The patient? s goal is to continue positive results of oral chemotherapy by maintaining improved labs PSA or stable scans in clinic for the upcoming year. documented as of this encounter Visit Diagnoses Not on filedocumented in this encounter Care Teams Manager Lighting Relationship Specialty Start Date End Date Kennedi Shaver MD [facility] [address] [facility] [address] [place] [address] PCP - General Family Medicine 08/02/20 06/24/24 documented as of this encounter
--- OUTSIDE RECORDS SUMMARY | 2024-09-11 15:18 | XMS_ITS | Encounter Summary ---
Author Organization [facility] [place] [address] Care Team Providers Care Cd Manufacturing Supervisor Name Role Phone Kennedi Shaver MD Primary Care Provider [phone] Encounter Details Date Type Department Care Team (Latest Contact Info) Description 08/11/2024 Travel Social History Tobacco Use Types Packs/Day [...] (Latest Contact Info) Description 09/29/2024 4:30 PM [facility] Hospital [facility] [place] [phone] Lizet Wilkes MD [facility] [place] [address] 09/29/2024 4:30 PM EST - 09/29/2024 5:00 PM EST Surgery Gastroenterology at [place] [phone] Lizet Wilkes MD [facility] [place] [address] EGD, UPPER GI ENDOSCOPY (WRVU 2.09) 11/09/2024 10:00 AM EST Laboratory Appointment Lab [place] [facility] [place]ology Oncology [address] [place], [place] [phone] 11/09/2024 11:00 AM EST Office Visit Hematology and Oncology at [place] [phone] Faith Caba MD [facility] [place] [address] 11/09/2024 12:00 PM EST Appointment Hematology [place] [phone] Scheduled Procedures Name Priority Associated Diagnoses Date/Ti me EGD, UPPER GI ENDOSCOPY (WRVU 2.09) Gastroesophageal reflux disease with esophagitis, unspecified whether hemorrhage 09/29/2024 4:30 PM EST documented as of this encounter Goals Goal Patient Goal Type Associated Problems Recent Progress Patient-Stated? Author [facility] Medication Compliance and Understanding Patient Facing Action Plan Curly Nicolas, [facility] Note: The patient? s goal is to continue positive results of oral chemotherapy by maintaining improved labs PSA or stable scans in clinic for the upcoming year. documented as of this encounter Visit Diagnoses Not on filedocumented in this encounter Care Teams Cd Manufacturing Supervisor Relationship Specialty Start Date End Date Kennedi Shaver MD [facility] [address] [place] [address] PCP - General Family Medicine 06/25/24 documented as of this encounter
--- OUTSIDE RECORDS SUMMARY | 2024-09-11 15:18 | XMS_ITS | Encounter Summary ---
Author Organization [facility] [place] [address] Care Team Providers Care Commercial Litigation Paralegal Name Role Phone Kennedi Shaver MD Primary Care Provider [phone] Encounter Details Date Type Department Care Team (Late st Contact Info) Description 08/24/2024 Telephone [place] [phone] Leatha Bobo Social History Tobacco Use Types Packs/Day Years Used Date Smoking Tobacco: Former Cigarettes 1977 Smokeless Tobacco: Never Alcohol Use Standard Drinks/Week Comments Yes 14 (1 standard drink = 0.6 oz pu re alcohol) 1 drink a day [facility] Inpatient Questions Answer Date Recorded Does [...] encounter Miscellaneous Notes * Telephone Encounter - Leatha Bobo - 08/24/2024 2:31 PM EST Chidi Carbone [phone] Diagnosis/Indication: Follow-up severe esophagitis Please review patient chart to confirm if previous Endoscopy procedure was performed within system. If yes, take note of Anesthesia type used. If previous procedure found, and with MAC/propofol Anesthesia support was used, schedule this procedure with Anesthesia and skip the Anesthesia portion of questions. If not performed within system, not performed at all, or performed with IVCS, ask Anesthesia questions. SCHEDULING QUESTIONS (ask all patient these questions) Have you ever had a/an Upper Endoscopy before? Yes: Date 03-17-24 If yes, did you have any problems with the procedure (such as waking up during the procedure, pain or difficulties afterwards, etc.)? No What type of sedation was used: General Anesthesia (ASK ONLY FOR COLONOSCOPY PROCEDURES) Are you aware, or have you ever been told that you had a poor prep or failed prep with a previous colonoscopy? No If yes, assign the Extended MiraLAX Prep (ASK ONLY FOR COLONOSCOPY PROCEDURES) Do you have an ongoing history of constipation? (E.g., hard stools, >2 days without a bowel movement, straining or difficulty passing stool) No If yes, assign the Extended MiraLAX Prep Do you take any blood thinners or have you been diagnosed with a bleeding disorder that increases your risk of bleeding with procedures? No Do you have a Pacemaker or Defibrillator device? If yes, send pool message to Cardiology with patient information and date or procedure. No Do you have diabetes? If yes, call PCP/managing provider to discuss use of prep and any questions or concerns related to. No If yes, assign the Extended MiraLAX Prep Do you take any iron supplements or vitamins that contain iron? Yes Do you take a GLP-1 medication for diabetes and/or weight loss? All patients who say yes, regardless of procedure, must be on clear liquids day prior to procedure. If patient answers yes, you must note which medication and instruct to hold the medication prior to procedure for one dose. Brand names include Wegovy, Ozempic, Trulicity, Mounjaro, Zepbound, Rynelsus, Saxenda, Victoza, Byetta, Bydureon, Soliqua, Xultophy No Do you have a preference regarding the gender of your provider? No ANESTHESIA QUESTIONS (YES to any question, please book with Anesthesia support) Have you ever been diagnosed with Pulmonary Hypertension and/or Congential Heart Disease? No Have you been diagnosed with A-Fib (atrial fibrillation) that is NOT being well controled with medications? No Have you ever had an allergic or adverse reaction to Fentanyl or Versed? No Have you had a problem with sedation or anesthesia? (Waking up during procedure, extreme confusion after, etc.) No Do you have a diagnosis of Obstructive Sleep Apnea that requires the use of a c- pap machine? No Do you use an oxygen tank at home? No Do you use a rescue inhaler more than twice per day? (COPD, severe asthma) No Do you experience breathing problems when you lay flat for a period of time? No Do you regularly take prescription opioid pain medications on a daily basis? (Includes oxycodone, Percocet, Suboxone, methadone, etc.) No If yes, assign the Extended MiraLAX Prep SCHEDULING CONFIRMATIONS: Please note any and all parts of your conversation with the patient here. We offer all new patients an opportunity to have an appointment with one of our associate care providers to learn more about your upcoming procedure, ask questions and get answers. These appointmentsare offered via telehealth. Would you be interested in scheduling this appointment? (Only ask if NEW referral patient; skip this question if DH GI provider ordered the procedure.) No Is there any other information or concerns you would like to us to share with your care team in relation to your upcoming scheduled procedure? No You must have a responsible alliance party who will drive you to your procedure, stay on campus for the entire duration of your procedure, and drive you home from your procedure. Who will likely be your moving van driver for the procedure? *Please Verify the height and weight, and adjust if height and/or weight have changed* Estimated body mass index is 23.96 kg/m?? as calculated from the following: Height as of 08/11/24: 177.8 cm (5' 10). Weight as of 08/11/24: 75.8 kg (167 lb). Age:78 y.o. documented in this encounter Plan of Treatment Upcoming Encounters Date Type Department Care Team (Latest Contact Info) Description 09/29/2024 4:30 PM EST Hospital En[place] [phone] Lizet Wilkes MD [facility] [place] [address] 09/29/2024 4:30 PM EST - 09/29/2024 5:00 PM EST [place] [phone] Lizet Wilkes MD [facility] [place] [address] EGD, UPPER GI ENDOSCOPY (WRVU 2.09) 11/09/2024 10:00 AM EST Laboratory Appointment Lab at [facility] Hematology Oncology [address] [place] [phone] 11/09/2024 11:00 AM EST Office Visit Hematology [place] [phone] Faith Caba MD [facility] DR [place] [address] 11/09/2024 12:00 PM EST Appointment Hematology [place] [phone] Scheduled Procedures Name Priority Associated Diagnoses Date/Ti me EGD, UPPER GI ENDOSCOPY (WRVU 2.09) Gastroesophageal reflux disease with esophagitis, unspecified whether hemorrhage 09/29/2024 4:30 PM EST documented as of this encounter Goals Goal Patient Goal Type Associated Problems Recent Progress Patient-Stated? Author DH Home Medication Compliance and Understanding Patient Facing Action Plan Curly Nicolas, [facility] Note: The patient? s goal is to continue positive results of oral chemotherapy by maintaining improved labs PSA or stable scans in clinic for the upcoming year. documented as of this encounter Visit Diagnoses Not on filedocumented in this encounter Care Teams Commercial Litigation Paralegal Relationship Specialty Start Date End Date Kennedi Shaver MD [facility] [address] [place] [address] PCP - General Family Medicine 06/25/24 documented as of this encounter
--- OUTSIDE RECORDS SUMMARY | 2024-09-11 15:18 | XMS_ITS | Encounter Summary ---
Author Organization [facility] [place] [address] Care Team Providers Care Periodicals Clerk Name Role Phone Kennedi Shaver MD Primary Care Provider [phone] Encounter Details Date Type Department Care Team (Latest Contact Info) Description 07/08/2024 Travel Social History Tobacco Use Types Packs/Day [...] (Latest Contact Info) Description 09/29/2024 4:30 PM [facility] Hospital Encounter [facility]ology [facility] [place] [phone] Lizet Wilkes MD [facility] [place] [address] 09/29/2024 4:30 PM EST - 09/29/2024 5:00 PM EST Surgery Gastroenterology at [place] [phone] Lizet Wilkes MD [facility] [place] [address] EGD, UPPER GI ENDOSCOPY (WRVU 2.09) 11/09/2024 10:00 AM EST Laboratory Appointment Lab at [facility] Hematology Oncology [address] [place], [place] [phone] 11/09/2024 11:00 AM EST Office Visit Hematology and Oncology at [place] [phone] Faith Caba MD [facility] [place] [address] 11/09/2024 12:00 PM EST Appointment Hematology [place] [phone] Scheduled Procedures Name Priority Associated Diagnoses Date/Ti me EGD, UPPER GI ENDOSCOPY (WRVU 2.09) Gastroesophageal reflux disease with esophagitis, unspecified whether hemorrhage 09/29/2024 4:30 PM EST documented as of this encounter Goals Goal Patient Goal Type Associated Problems Recent Progress Patient-Stated? Author [facility] Medication Compliance and Understanding Patient Facing Action Plan Curly Nicolas, [facility] Note: The patient? s goal is to continue positive results of oral chemotherapy by maintaining improved labs PSA or stable scans in clinic for the upcoming year. documented as of this encounter Visit Diagnoses Not on filedocumented in this encounter Care Teams Periodicals Clerk Relationship Specialty Start Date End Date Kennedi Shaver MD [facility] [address] [place] [address] PCP - General Family Medicine 06/25/24 documented as of this encounter
--- OUTSIDE RECORDS SUMMARY | 2024-09-11 15:18 | XMS_ITS | Clinical Summary ---
Author Organization [facility] Address [facility] [place] [address] Care Team Providers Care Mine Technician Name Role Phone Kennedi Shaver MD Primary Care Provider [phone] Allergies Active Allergy Reactions Criticality Noted Date Comments Lisinopril Other (See Comments) High 06/28/2023 Medications Medication Sig Dispensed Refills Start Date End Date Status leuprolide acetate (LUPRON DEPOT IM) Inject into the muscle. Once every 3 months, dosage unknown Active Provigil 100 mg Tablet take 1 tablet by mouth once daily 09/22/2020 Active pantoprazole EC (Protonix) 40 mg Tablet, Delayed Release (E.C.) take 1 tablet by mouth twice a day 08/22/2020 Active zolpidem (AMBIEN) 10 mg Tablet take 1 tablet by mouth at bedtime 09/15/2020 Active finasteride (Proscar) 5 mg Tablet Take 1 tablet by mouth daily. 90 tablet 3 08/17/2022 Active tamsulosin (Flomax) 0.4 mg Capsule Take 1 capsule by mouth daily. 90 tablet 3 08/17/2022 Active irbesartan (AVAPRO) 75 mg Tablet Take 75 mg by mouth every evening. 09/24/2022 Active acetaminophen (Tylenol) 500 mg tablet Take 2 tablets by mouth every 8 hours. Continue the Tylenol around the clock for 10 days after surgery, (12/29/22). Then may take if needed per package insert. Do not take more than 3,000 mg of Tylenol in 24 hours. 12/20/2022 Active mecobalamin, vitamin B12, 1,000 mcg Tablet, Rapid Dissolve Place 1 tablet under the tongue daily. 02/17/2024 Active sildenafiL (Viagra) 50 mg tablet Take 50 mg by mouth as needed. 06/14/2014 Active FeroSuL 325 mg (65 mg iron) tablet Take 1 tablet by mouth Daily at Noon. 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 08/04/2024 12:00 PM EST Laboratory Appointment Lab at [facility] Hematology Oncology [address] [place], [place] [phone] Neoplasm of prostate, 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 08/04/2024 11:54 AM EST - 08/04/2024 11:59 PM EST Hospital Encounter Hematology and Oncology at [place] [phone] Neoplasm of prostate, 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 Discharge Disposition: Home 08/04/2024 Travel 08/04/2024 Specialty Pharmacy Pharmacy at [place] [phone] Deborah Soares [facility] 07/21/2024 3:15 PM EDT - 07/21/2024 11:59 PM EDT Hospital Encounter XRay at [address] [place] [phone] Dev Mathis MD Right shoulder pain, unspecified chronicity Discharge Disposition: Home 07/21/2024 2:30 PM EDT Office Visit Orthopaedics at [place] [phone] Marisa Rod PA Right shoulder pain, unspecified chronicity 07/21/2024 Travel 07/08/2024 6:18 PM EDT - 07/08/2024 11:59 PM EDT Hospital Encounter MRI at [place] [phone] Regan Baez MD Soft tissue mass Discharge Disposition: Home 07/08/2024 Travel 07/01/2024 Orders Only Orthopaedics at [place] [phone] Regan Baez MD Soft tissue mass 06/30/2024 Telephone Orthopaedics at [facility] [address] [place] [phone] Regan Baez MD from Last 3 Months Immunizations Name Administration Dates Next Due Covid-19 (Moderna Spikevax) 12yrs+ (7491-3193) 06/25/2023 Covid-19 Monovalent (Moderna Spikevax) 12yrs+ ([phone]) 07/29/2021,12/01/2020 Covid-19, Unknown Formulation 11/03/2020 Influenza (Fluzone HD) Triva lent High Dose 06/12/2024,08/11/2018 Influenza Adjuvanted (FluAd) Trivalent, PF 65yrs+ 07/03/2019 Influenza Quadrivalent (FluA d) Adjuvanted 05/17/2020 Influenza Quadrivalent with Preservative 06/25/2017 Influenza Unspecified Formulation 2021,07/26/2021,05/17/2020,07/03,07/26/2016,07/29/2015,10/21/2014 Pneumococcal 13-Valent Conju gate (Prevnar 13) 10/20/2015 Pneumococcal 20-Valent Conju gate (Prevnar 20) 12/11/2023 Pneumococcal 23-Valent Polys accharide (Pneumovax 23) 03/09/2014,07/17/2010 Rsv, Unspecified Vaccine 05/31/2023 Td Adult 06/18/2018 Tdap (Adacel, Boostrix) 02/22/2015,05/14/2008 Zoster LIVE (Zostavax) 10/04/2010 Zoster Recombinant (ShingRix) 03/28/2022, 020 Family History Medical History Relation Comments Diabetes Neg Hx Social History Tobacco Use Types Packs/Day Years Used Date Smoking Tobacco: Former Cigarettes 1977 Smokeless Tobacco: Never Tobacco Cessation:Counseling Given: Not Answered Alcohol Use Standard Drinks/Week Comments Yes 14 (1 standard drink = 0.6 oz pu re alcohol) 1 drink a day [facility] Inpatient Questions Answer Date Recorded Does [...] on file Sexual Orientation Not on file Last Filed Vital Signs Vital Sign Reading Time Taken Comments Blood Pressure 125/58 08/04/2024 12:59 PM EST Pulse 96 08/04/2024 12:59 PM EST Temperature 36.3 ??C (97.3 ??F) 08/04/2024 12:[address] Respiratory Rate 18 08/04/2024 12:59 PM EST Oxygen Saturation 98% 08/04/2024 12:59 PM EST Inhaled Oxygen Concentration - - Weight 75.8 kg (167 lb) 08/11/2024 11:06 AM EST Height 177.8 cm (5' 10) 08/11/2024 11:06 AM EST Body Mass Index 23.96 08/11/2024 11:06 AM EST Plan of Treatment Upcoming Encounters Date Type Department Care Team (Latest Contact Info) Description 09/29/2024 4:30 PM EST Hospital En[place] [phone] Lizet Wilkes MD [facility] [place] [address] 09/29/2024 4:30 PM EST - 09/29/2024 5:00 PM EST [place] [phone] Lizet Wilkes MD [facility] [place] [address] EGD, UPPER GI ENDOSCOPY (WRVU 2.09) 11/09/2024 10:00 AM EST Laboratory Appointment Lab at [facility] Hematology Oncology [address] [place] [phone] 11/09/2024 11:00 AM EST Office Visit H[place]ology [place] [phone] Faith Caba MD [facility] DR HEMATOLOGY [place] [address] 11/09/2024 12:00 PM EST Appointment H[place]ology [place] [phone] Scheduled Procedures Name Priority Associated Diagnoses Date/Ti me EGD, UPPER GI ENDOSCOPY (WRVU 2.09) Gastroesophageal reflux disease with esophagitis, unspecified whether hemorrhage 09/29/2024 4:30 PM EST Health Maintenance Due Date Last Done Comments CT Colonography 1945 FIT DNA 1945 FIT 1945 Sigmoidoscopy 1945 Hepatitis C Screening 1962 Colonoscopy 03/17/2027 03/17/2024, 02/28, 03/17/2024, Additional history exists Colorectal Cancer Screening 03/17/2027 Tetanus/Diphtheria/Pertussis Vaccines (4 - Td or Tdap) 06/18/2028 06/18/2018, 02/22/2015, 05/14/2008 Sigmoidoscopy (10 year) with FIT yearly 03/17/2034 03/17/2024, 03/17/2024, 03/17/2024, Additional history exists Zoster vaccine Completed 03/28/2022, 04/30, 10/04/2010 RSV Vaccine Completed 05/31/2023 Pneumoccocal Vaccine: 65+ Completed 2023, 10/20/2015, 03/09/2014, Additional history exists Covid-19 Vaccine Completed 06/12/2024, , 06/25/2023, Additional history exists Influenza (Flu) vaccine Completed 06/12/20, 07/13/2022, 07/26/2021, Additional history exists Goals Goal Patient Goal Type Associated Problems Recent Progress Patient-Stated? Author DH Home Medication Compliance and Understanding Patient Facing Action Plan Curly Nicolas, [facility] Note: The patient? s goal is to continue positive results of oral chemotherapy by maintaining improved labs PSA or stable scans in clinic for the upcoming year. Medical Devices Implanted Type Area Airconditioning Engineer Device Identifier Shelf Expiration Date Model / Serial / Lot Comp Femoral Knee Sz 6+ Right Yoan Ps Cocr ([id number]) (Autoreq) - [id number] Implanted:Qty: 1 on 12/19/2022 by Julio Melissa MD at [facility] IMPLANTS Right: Knee [employer] [place] - [employer] [place] [id number] 09/11/2027 02.12.002 6R / / [id number] Comp Patellar Knee Size 3 Resurfacing Uhmwpe Gmk E Cross ([id number]) (Autoreq) - [id number] Implanted:Qty: 1 on 12/19/2022 by Julio Melissa MD at [facility] IMPLANTS Right: Knee [employer] [place] - [employer] [place] [id number] 08/22/2027 02.12.E00 3RP / / [id number] Insert Tibial 10mm Sz 5 Rt Poly Gmk E Cross ([id number]) (Autoreq) - [id number] Implanted:Qty: 1 on 12/19/2022 by Julio Melissa MD at [facility] IMPLANTS Right: Knee [employer] [place] - [employer] [place] [id number] 08/27/2027 02.12.E05 10FR / / [id number] Baseplate Tibial Sz 5 Right Yoan Cocr Gmk ([id number]) (Autoreq) - [id number] Implanted:Qty: 1 on 12/19/2022 by Julio Melissa MD at [facility] IMPLANTS Right: Knee [employer] [place] - [employer] [id number] 10/01/2027 02.07.120 5R / / [id number] Procedures Procedure Name Priority Date/Time Associated Diagnosis Comments ORDS - PROVIDER CARE SCAN 09/11/2024 12:00 AM EST CBC (WITH DIFF) Routine 08/04/2024 11:59 AM [...] metastasis with or without metastasis to bone XR SHOULDER RIGHT Routine 07/21/2024 3:3 2 PM EDT Right shoulder pain, unspecified chronicity MRI ELBOW LEFT WITH/WO CONTRAST Routine 07/08/2024 7:31 PM EDT Soft tissue mass COLONOSCOPY Routine 03/17/2024 2:31 PM EDT from Last 3 Months or Most Recently Relevant to Health Maintenance Results * Scan Doc: Ords - Provider Care (09/11/2024 12:00 AM EST) Narrative 09/11/2024 12:00 AM EST Ordered by an unspecified provider. Scanning Provider MEDIA MGR SCAN EXT O RDR/RSLT * (ABNORMAL) CBC (with Diff) (08/04/2024 11:59 AM EST) White Blood Cell 9.63(H) 4.00 - 9.50 x10(3)/mc L 08/04/2024 12:26 PM [facility] Red Blood Cell 3.80(L) 4.58 - 5.54 x10(6)/mc L 08/04/2024 12:26 PM [facility] Hemoglobin 10.3(L) 13.7 - 16.5 g/dL 08/04/2024 12:26 PM [facility] Hematocrit 33.0(L) 40.5 - 48.5 % 08/04/2024 12:26 PM [facility] Mean Cell Volume 86.8 82.9 - 93.1 fL 08/04/2024 12:26 PM [facility] Mean Cell Hemoglobin 27.1(L) 27.5 - 32.1 pg 08/04/2024 12:26 PM [facility] Mean Cell Hemoglobin Concentration 31.2(L) 32.0 - 35.7 g/dL 08/04/2024 12:26 PM [facility] Platelet 396(H) 145 - 357 x10(3)/mc L 08/04/2024 12:26 PM [facility] Mean Platelet Volume 9.0 7.6 - 12.9 fL 08/04/2024 12:26 PM [facility] RDW Standard Deviation 44.9 36.0 - 45.0 fL 08/04/2024 12:26 PM [facility] RDW coefficient of variation 14.1(H) 11.4 - 13.8 % 08/04/2024 12:26 PM [facility] NRBC% auto 0.0 % 08/04/2024 12:26 PM [facility] NRBC Absolute <0.01 <0.01 x10(3)/mc L 08/04/2024 12:26 PM [facility] Neutrophil % 71.9 % 08/04/2024 12:26 PM [facility] Neutrophil Absolute (ANC) - Automated 6.93(H) 1.70 - 6.10 x10(3)/mc L 08/04/2024 12:26 PM [facility] Lymph % 15.5 % 08/04/2024 12:26 PM [facility] Lymph Absolute 1.49 0.90 - 3.20 x10(3)/mc L 08/04/2024 12:26 PM [facility] Monocyte % 9.7 % 08/04/2024 12:26 PM [facility] Monocyte Absolute 0.93(H) 0.30 - 0.90 x10(3)/mc L 08/04/2024 12:26 PM [facility] Eos % 2.2 % 08/04/2024 12:26 PM EST [facility] Eos Absolute 0.21 0.00 - 0.40 x10(3)/mc L 08/04/2024 12:26 PM EST [facility] Basophil % 0.4 % 08/04/2024 12:26 PM [facility] Baso Absolute 0.04 0.00 - 0.10 x10(3)/mc L 08/04/2024 12:26 PM EST [facility] Immature Gran % 0.3 % 12:26 PM EST [facility] Immature Gran Absolute <0.04 0.00 - 0.04 x10(3)/mc L 08/04/2024 12:26 PM [facility] Blood VENOUS BLOOD SPECIMEN / Unknown Venipuncture / Unknown 08/04/2024 11:59 AM EST 08/04/2024 11:59 AM EST Deborah Hector APRN [place] [address] * (ABNORMAL) Testosterone, total (08/04/2024 11:59 AM EST) Testosterone <0.12(L) 1.93 - 7.40 ng/ml 08/04/2024 12:58 PM EST [facility] Blood VENOUS BLOOD SPECIMEN / Unknown Venipuncture / Unknown 08/04/2024 11:59 AM EST 08/04/2024 11:59 AM EST Deborah Hector CONSTRUCTION PLANT OPERATOR [place] [address] * PSA (Ultrasensitive) (08/04/2024 11:59 AM EST) Prostate Specific Antigen (Ultrasensitive) <0.01 0.00-4.00 ng/mL ng/ml 08/04/2024 1:03 PM [facility] Comment:The reference interv al (0 [...] EST 08/04/2024 11:59 AM EST Deborah Hector CONSTRUCTION PLANT OPERATOR CHEMISTRY ORDERABL ES [facility] [place] [address] * Comprehensive metabolic panel (08/04/2024 11:59 AM EST) Glucose 105 65 - 199 mg/dL 08/04/2024 1:03 PM [facility] Comment:Glucose Concentratio n >=200 mg/dL plus symptoms is consistent with Diabetes Mellitus. Blood Urea Nitrogen 19 10 - 20 mg/dL 08/04/2024 1:03 PM [facility] Creatinine 0.95 0.80 - 1.50 mg/dL 08/04/2024 1:03 PM [facility] Sodium 138 135 - 145 mMol/L 08/04/2024 1:03 PM [facility] Potassium 4.8 3.5 - 5.0 mMol/L 08/04/2024 1:03 PM [facility] Chloride 104 98 - 107 mMol/L 08/04/2024 1:03 PM [facility] Carbon Dioxide 24 22 - 31 mMol/L 08/04/2024 1:03 PM [facility] Anion Gap 10 5 - 15 mMol/L 08/04/2024 1:03 PM [facility] Calcium 9.2 8.5 - 10.5 mg/dL 08/04/2024 1:03 PM [facility] Protein, Total 7.5 6.1 - 8.0 g/dL 08/04/2024 1:03 PM [facility] Albumin 4.0 3.2 - 5.2 g/dL 08/04/2024 1:03 PM [facility] Aspartate Aminotransferase 13 <=39 unit/L 08/04/2024 1:03 PM [facility] Alanine Aminotransferase 7 0 - 55 unit/L 08/04/2024 1:03 PM [facility] Alkaline Phosphatase 117 40 - 130 unit/L 08/04/2024 1:03 PM [facility] Bilirubin, Total 0.3 <=1.3 mg/dL 08/04/2024 1:03 PM [facility] Est Glomerular Filtration Rate - Male 81 mL/min/1. 73 m?? 08/04/2024 1:03 PM [facility] Comment: This patient's estimated GFR [...] Foundation Fasting Status No 08/04/2024 1:03 PM [facility] Blood VENOUS BLOOD SPECIMEN / Unknown Venipuncture / Unknown 08/04/2024 11:59 AM EST 08/04/2024 11:59 AM EST Deborah Hector CONSTRUCTION PLANT OPERATOR CHEMISTRY ORDERABL ES [facility] [place] [address] * XR Shoulder Right (Generic) (07/21/2024 3:32 PM EDT) WORKSTATION ID [id number] RAD Anatomical Region Laterality Modality Shoulder Right [...] who have questions please contact the health direct care provider that requested your imaging first. ? Electronically signed by: German Hoffman MD, [facility] ([phone]), at 07/21/2024 4:26 PM Narrative 07/21/2024 4:26 PM EDT EXAMINATION: XR [...] patients who have questions please contactthe health direct care provider that requested your imaging first. Electronically signed by: German Hoffman MD, [facility]([phone]), at 07/21/2024 4:26 PM Dev Mathis MD IMG DX ORDERABLES * MRI Elbow wwo Contrast Left (07/08/2024 7:31 PM EDT) [employer] Signature WORKSTATION ID [id number] RAD Anatomical Region Laterality Modality Elbow Left [...] who have questions please contact the health direct care provider that requested your imaging first. ? Narrative [...] 37, series 5001 image 16) that contains [id number], T1 hypointense nonenhancing fluid. The lesion demonstrates [...] patients who have questions please contactthe health direct care provider that requested your imaging first. Regan Baez MD IMG MRI ORDERABLES * COLONOSCOPY (03/17/2024 2:31 PM EDT) COLONOSCOPY [facility] Endoscopy Procedure Date: 03/17/2024 2:31 PM ? Patient Name: Chidi Hughes ? Date of : 1945 ? Age: 78 ? Order #: [id number] ? Instrument Name: [id number] ? Procedure: ? Colonoscopy Indications: ? History of known polyp not removed ? on prior exam. Providers: ? Malia Gardner MD, Sulaiman Thierry ? Isaac Mota Referring MD: ? Medicines: ? Midazolam 1 mg IV, Fentanyl 150 ? micrograms IV, plus residual ? medication from EGD Complications: ? No immediate complications. Procedure: ? Pre-Anesthesia Assessment: ? - Prior to the procedure, a History ? and Physical was performed, and ? patient medications and allergies ? were reviewed. The patient is ? competent. The risks and benefits ? of the procedure and the sedation ? options and risks were discussed ? with the patient. All questions ? were answered and informed consent ? was obtained. Patient ? identification and proposed ? procedure were verified by the ? physician in the pre-procedure area ? in the endoscopy suite. Mental ? Status Examination: alert and ? oriented. Airway Examination: ? normal oropharyngeal airway and ? neck mobility. Respiratory ? Examination: clear to auscultation. ? CV Examination: normal. ASA Grade ? Assessment: II - A patient with ? mild systemic disease. After ? reviewing the risks and benefits, ? the patient was deemed in ? satisfactory condition to undergo ? the procedure. The anesthesia plan ? was to use moderate sedation / ? analgesia (conscious sedation). ? Immediately prior to administration ? of medications, the patient was ? re-assessed for adequacy to receive ? sedatives. The heart rate, ? respiratory rate, oxygen ? saturations, blood pressure, ? adequacy of pulmonary ventilation, ? and response to care were monitored ? throughout the procedure. The ? physical status of the patient was ? re-assessed after the procedure. ? The procedure, indications, ? benefits, risks and alternatives ? were explained to the patient. ? Specifically discussed were ? potential complications including, ? but not limited to, bleeding, ? perforation, infection, missing a ? cancer, and adverse medication ? reactions. The patient was placed ? in the left lateral decubitus ? position, and a digital rectal exam ? was performed. The Colonoscope was ? inserted in the anus and under ? direct visualization, advanced to ? the terminal ileum, with ? identification of the appendiceal ? orifice and IC valve. Careful ? inspection was made as the ? colonoscope was withdrawn. The ? colonoscopy was technically ? difficult and complex due to ? multiple diverticula in the colon ? and significant looping. Successful ? completion of the procedure was ? aided by changing the patient to a ? supine position and applying ? abdominal pressure. The quality of ? the bowel preparation was evaluated ? using the BBPS ([place] Bowel ? Preparation Scale) with scores of: ? Right Colon = 2 (minor amount of ? residual staining, small fragments ? of stool and/or opaque liquid, but ? mucosa seen well) and Transverse ? Colon = 2 (minor amount of residual ? staining, small fragments of stool ? and/or opaque liquid, but mucosa ? seen well). The total BBPS score ? equals 4. The quality of the bowel ? preparation was good. Scope ? withdrawal time was 22 minutes. ? Findings: ? Multiple large-mouthed and medium-mouthed diverticula ? were found from sigmoid to cecum. ? A 4 mm polyp was found in the sigmoid colon. The ? polyp was sessile. The polyp was removed with a cold ? snare. Resection and retrieval were complete. ? Two sessile polyps were found in the transverse ? colon. The polyps were 4 to 5 mm in size. These ? polyps were removed with a cold snare. Resection and ? retrieval were complete. ? Two flat polyps were found in the ascending colon. ? The polyps were 6 to 10 mm in size. These polyps were ? removed with a lift and cut technique using a cold ? snare. Resection and retrieval were complete. ? The terminal ileum appeared normal. ? Moderate Sedation: ? I was present during the intraservice time as ? documented by the sedation RN. Impression: ?- Severe diverticulosis from ? sigmoid to cecum. ? - One 4 mm polyp in the sigmoid ? colon, removed with a cold snare. ? Resected and retrieved. ? - Two 4 to 5 mm polyps in the ? transverse colon, removed with a ? cold snare. Resected and retrieved. ? - Two 6 to 10 mm polyps in the ? ascending colon, removed using lift ? and cut and a cold snare. Resected ? and retrieved. ? - The examined portion of the ileum ? was normal. Recommendation: ?- Await pathology results to ? determine the appropriate interval ? until the next exam. The patient ? will be notified by mail. If ? results are not received within ? three weeks, please call our office ? at [phone]. ? Attending Participation: ? I personally performed the entire procedure. ? __ L. Santos Gardner MD 03/17/2024 4:31:15 PM Number of Addenda: 0 Note Initiated On: 03/17/2024 2:31 PM PROVATION 03/17/2024 2:31 PM EDT Unknown GENERAL SURGICAL ORD ERABLES PROVATION from Last 3 Months or Most Recently Relevant to Health Maintenance Advance Directives Documents on File Type Date Recorded Patient Engraver Steel Plate Expl anation Personal Engraver Steel Plate 03/28/2020 10:10 AM danish hughes Advance Directives and Living Will 05/22/2016 10:00 AM 8.11.16 Personal Engraver Steel Plate 11/09/2022 6:58 AM daughter Personal Engraver Steel Plate 11/09/2022 6:58 AM * Attempt Cardiopulmonary Resuscitation - Inpatient (Latest Code Status on File) Date Activated Date Inactivated Comments 12/19/2022 3:11 PM 12/20/2022 4:49 PM Question Answer Comments Code Status decision made by: Patient * Attempt Cardiopulmonary Resuscitation - Inpatient Date Activated Date Inactivated Comments 08/14/2022 4:21 PM 08/17/2022 7:48 PM Question Answer Comments Code Status decision made by: Patient * Full Code Date Activated Date Inactivated Comments 06/04/2019 5:43 AM 06/04/2019 5:22 PM Question Answer Comments Does patient have capacity to make decision: Yes * Full Code Date Activated Date Inactivated Comments 04/19/2015 3:00 PM 04/19/2015 8:07 PM Question Answer Comments Order Status: Initial Order Does patient have decision m aking capacity? Yes, Order is based on Patients wishes. * Full Code Date Activated Date Inactivated Comments 03/08/2014 7:22 PM 03/09/2014 6:36 PM Question Answer Comments Order Status: Initial Order Does patient have decision m aking capacity? Yes, Order is based on Patients wishes. Healthcare Agents on File Name Relationship Healthcare Agent [facility] Communication [facility] Health Care Agent [facility] C are Agent Care Teams Mine Technician Relationship Specialty Start Date End Date Kennedi Shaver MD [facility] [address] [place] [address] PCP - General Family Medicine 06/25/24
--- OUTSIDE RECORDS SUMMARY | 2024-09-11 15:18 | XMS_ITS | Encounter Summary ---
Author Organization [facility] [place] [address] Care Team Providers Care Global Marketing Operations Manager Name Role Phone Kennedi Shaver MD Primary Care Provider [phone] Reason for Referral * Consultation (Routine) - Closed Specialty Diagnoses / Procedures Referred By Blaine peralta Referred To Contact Endocrinology Diagnoses Osteoporosis, unspecified osteoporosis type, unspecified pathological fracture presence Deborah Hector APRN [address] [place] [address] [place] [address] [facility] [place] [address] [place] [phone] Referral ID Status Reason Start Date Expiration Date V isits Requested Visits Authorized [id number] Closed Consult, Test & Treat 05/29/2024 05/29/2025 1 1 Encounter Details Date Type Department Care Team (Late st Contact Info) Description 05/29/2024 Orders Only Hematology [place] [phone] Deborah Hector APRN [address] [place] [address] DR [place] [address] Osteoporosis, unspecified osteoporosis type, unspecified pathological fracture presence Social History Tobacco Use Types Packs/Day Years Used Date Smoking Tobacco: Former Cigarettes 1977 Smokeless Tobacco: Never Alcohol Use Standard Drinks/Week Comments Yes 14 (1 standard drink = 0.6 oz pu re alcohol) 1 drink a day [facility] Inpatient Questions Answer Date Recorded Does [...] 4:30 PM EST Hospital Encounter Gastroenterology at [place] [phone] Lizet Wilkes MD [facility] [address] 09/29/2024 4:30 PM EST - 09/29/2024 5:00 PM EST Surgery Gastroenterology at [place] [phone] Lizet Wilkes MD [facility] [place] [address] EGD, UPPER GI ENDOSCOPY (WRVU 2.09) 11/09/2024 10:00 AM EST Laboratory Appointment Lab at [facility] [place] [address] [place] [phone] 11/09/2024 11:00 AM EST Office Visit Hematology and Oncology at [place] [phone] Faith Caba MD [facility] HEMATOLOGY [place] [address] 11/09/2024 12:00 PM EST Appointment Hematology and Oncology at [facility] [place] [address] Scheduled Procedures Name Priority Associated Diagnoses Date/Ti me EGD, UPPER GI ENDOSCOPY (WRVU 2.09) Gastroesophageal reflux disease with esophagitis, unspecified whether hemorrhage 09/29/2024 4:30 PM EST Scheduled Referrals Name Type Priority Associated Diagnoses Orde r Schedule Referral to Endocrinology Outpatient Referral Routine Osteoporosis, unspecified osteoporosis type, unspecified pathological fracture presence Ordered: 05/29/2024 documented as of this encounter Goals Goal Patient Goal Type Associated Problems Recent Progress Patient-Stated? Author [facility] Medication Compliance and Understanding Patient Facing Action Plan Curly Nicolas, [facility] Note: The patient? s goal is to continue positive results of oral chemotherapy by maintaining improved labs PSA or stable scans in clinic for the upcoming year. documented as of this encounter Visit Diagnoses Diagnosis Osteoporosis, unspecified osteoporosis type, unspecified pathological fracture presence Gastroesophageal reflux disease with esophagitis, unspecified whether hemorrhage documented in this encounter Care Teams Global Marketing Operations Manager Relationship Specialty Start Date End Date Kennedi Shaver MD [facility] [address] [place] [address] PCP - General Family Medicine 08/02/20 06/24/24 documented as of this encounter
--- OUTSIDE RECORDS SUMMARY | 2024-09-11 15:18 | XMS_ITS | Encounter Summary ---
Author Organization [facility] Address [facility] [place] [address] Care Team Providers Care University Teacher Name Role Phone Kennedi Shaver MD Primary Care Provider [phone] Reason for Visit * Reason Comments Follow-up Encounter Details Date Type Department Care Team (Late st Contact Info) Description 08/04/2024 1:00 PM EST Office Visit Hematology [place] [address] Kenyatta Do APRN [facility] [place] [address] Neoplasm of prostate, 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 Social History Tobacco Use Types Packs/Day Years Used Date Smoking Tobacco: Former Cigarettes 1 1977 Smokeless Tobacco: Never Tobacco Cessation:Counseling Given: Not Answered Alcohol Use Standard Drinks/Week Comments Yes 14 (1 standard drink = 0.6 oz pu re alcohol) 1 drink a day [facility] Inpatient Questions Answer Date Recorded Does Anyone [...] Concentration - - Weight 75.8 kg (167 lb 1.7 oz) 08/04/2024 12:59 PM EST Height 177.4 cm (5' 9.84) 08/04/2024 12:[address] Body Mass Index 24.09 08/04/2024 12:59 PM EST documented in this encounter Progress Notes * Kenyatta Do, CHEMICAL UNIT OPERATOR - 08/04/2024 1:00 PM EST Images from the original note were not included. [facility] Medicine Medical Oncology [place] [id number] ONCOLOGY FOLLOW UP VISIT DIAGNOSIS: Metastatic prostate [...] stopped taking abiraterone/prednisone due to swallowing difficulties HPI: Chidi is here for f/u, unaccompanied. He has been off the edmar/pred for more than 6 months now and is feeling much better than before. He notes swallowing is still difficult with certain textures butis cognizant and washes food down with liquids. No urinary or bowel concerns. Decreased energy is slightly improved. He reports he was seen in ED shortly after his last visit here, for a lump on his f orearm (left). This was not painful and he was not sure where it came from. They did an Xray and I appeared to be inflammatory such as bursitis, there was no bone damage seen. He was referred to Ortho and had an MRI done also and he was able to meet with them a few weeks ago. Review of note shows he has been diagnosed with R glenohumeral arthritis, not much improvement from joint injection and bilat olecranon bursitis, which they advised RICE and compression sleeves. Otherwise, REVIEW OF SYSTEMS: -Both knees hurting more -Chronic R upper arm/shoulder pain, takes Tylenol, feels it's residual from COVID shot As noted above; all other systems were reviewed and found to be negative. PAST MEDICAL HISTORY: 1. As above 2. GERD and Sol's esophagus S/p Alli Fundoplication 3. ELevated fasting glusoce 4. S/p distant appendectomy 5. S/p tonsilectomy 6. Hypertension MEDS: Medications 08/04/24 1259 Medication Sig Taking? mecobalamin, vitamin B12, 1,000 mcg Tablet, Rapid Dissolve Place 1 tablet under the tongue daily. Yes sildenafiL (Viagra) 50 mg tablet Take 50 mg by mouth as needed. Yes acetaminophen (Tylenol) 500 mg tablet Take 2 tablets by mouth every 8 hours. Continue the Tylenol around the clock for 10 days after surgery, (12/29/22). Then may take if needed per package insert. Do not take more than 3,000 mg of Tylenol in 24 hours. Yes irbesartan (AVAPRO) 75 mg Tablet Take [...] Once every 3 months, dosage unknown Yes ALLERGY: Allergies Allergen Reactions Lisinopril Other (See [...] normal mood and affect. Vitals reviewed. BP 125/58 (Patient Position: Sitting) Pulse 96 Temp 36.3 ??C (97.3 ??F) (Temporal) Resp 18 Ht 177.4 cm (5' 9.84) Wt 75.8 kg (167 lb 1.7 oz) SpO2 98% BMI 24.09 kg/m?? Wt Readings from Last 3 Encounters: 08/04/24 75.8 kg (167 lb 1.7 oz) 07/21/24 78 kg (172 lb) 05/29/24 78 kg (172 lb) LABS: Recent Results (from the past 12 hour(s)) Testosterone, total Result Value Testosterone <0.12 (L) PSA (Ultrasensitive) Result Value Prostate Specific Antigen (Ultrasensitive) <0.01 Comprehensive metabolic panel Result Value Glucose 105 Blood Urea Nitrogen 19 Creatinine 0.95 Sodium 138 Potassium 4.8 Chloride 104 Carbon Dioxide 24 Anion Gap 10 Calcium 9.2 Protein, Total 7.5 Albumin 4.0 Aspartate Aminotransferase 13 Alanine Aminotransferase 7 Alkaline Phosphatase 117 Bilirubin, Total 0.3 Est Glomerular Filtration Rate - Male 81 Fasting Status No CBC (with Diff) Result Value White Blood Cell 9.63 (H) Red Blood Cell 3.80 (L) Hemoglobin 10.3 (L) Hematocrit 33.0 (L) Mean Cell Volume 86.8 Mean Cell Hemoglobin 27.1 (L) Mean Cell Hemoglobin Concentration 31.2 (L) Platelet 396 (H) Mean Platelet Volume 9.0 RDW Standard Deviation 44.9 RDW coefficient of variation 14.1 (H) NRBC% auto 0.0 NRBC Absolute <0.01 Neutrophil % 71.9 Neutrophil Absolute (ANC) - Automated 6.93 (H) Lymph % 15.5 Lymph Absolute 1.49 Monocyte % 9.7 Monocyte Absolute 0.93 (H) Eos % 2.2 Eos Absolute 0.21 Basophil % 0.4 Baso Absolute 0.04 Immature Gran % 0.3 Immature Gran Absolute <0.04 IMAGING STUDIES: DXA scan 05/29/24: FINDINGS: Femoral neck BMD: 0.542 g/cm2 Lowest T-score at the diagnostic region of interest: T-score: -2.8, VIRGIE: left total hip, WHO diagnosis: osteoporosis ASSESSMENT AND PLAN: 78 y.o. M has metastatic prostate cancer with extensive disease involving nodes and bones. He started ADT in February, and added abiraterone in April,. He started having difficulties swallowing the abiraterone in the December,, so has been holding it (and the prednisone) since then due to swallowing issues. He continues to do well without obvious signs of progression, various chronic ortho symptoms do notseem to be r/t osseous involvement, PSA remains undetectable. Reports ongoing pain in R shoulder and elbows, he is seeing ortho at for that and is taking Tylenol. He is avoiding NSAIDs given history of GI bleed. # Anemia: Hb has dipped again. Hx of GI bleed.. No bleeding symptoms. He reports PCP is monitoring.Advise f/u with GI (reports was supposed to be scheduled next month for f/u, but no appts yet). Advised to call and schedule. #Osteopenia worsened on recent DEXA in April 2024. It does note appear he has had bisphosphonate in the past- will review visit notes from endocrinology whom he is meeting today. Pt is taking Ca/D. - Proceed with Lupron today - F/u in 3 months for labs, visit with Anahi Zamora after - Consider adding Xgeva to 3 month intervals for osteopenia with history of bone mets, will await endo recs Mr. Carbone asked appropriate questions and verbalized good understanding of and agreement with theplan. I encouraged him to call anytime with questions or concerns and he agreed. Kenyatta Do, MSN, AGACNP-, AOCNP Oncology CHEMICAL UNIT OPERATOR Pager: [phone] documented in this encounter Plan of Treatment Upcoming Encounters Date Type Department Care Team (Latest Contact Info) Description 09/29/2024 4:30 PM EST Hospital Encounter [place] [address] Lizet Wilkes MD [facility] [place] [address] 09/29/2024 4:30 PM EST - 09/29/2024 5:00 PM EST Surgery [place] [address] Lizet Wilkes MD [facility] [place] [address] EGD, UPPER GI ENDOSCOPY (WRVU 2.09) 11/09/2024 10:00 AM EST Laboratory Appointment Lab at [facility] Hematology Oncology [address] [place] [phone] 11/09/2024 11:00 AM EST Office Visit Hematology [place] [phone] Faith Caba MD [facility] DR [place] [address] 11/09/2024 12:00 PM EST Appointment Hematology and Oncology at [facility] [place] [address] Scheduled Orders Name Type Priority Associated Diagnoses Orde r Schedule CBC (with Diff) Lab Routine Neoplasm of prostate, 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 Every 3 months for 4 Occurrences starting 08/04/2024 until 08/04/2025 PSA (Ultrasensitive) Lab Routine Neoplasm of prostate, 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 Every 3 months for 4 Occurrences starting 08/04/2024 until 08/04/2025 Testosterone, total Lab Routine Neoplasm of prostate, 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 Every 3 months for 4 Occurrences starting 08/04/2024 until 08/04/2025 Comprehensive metabolic panel Non-fasting Lab Routine Neoplasm of prostate, 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 Every 3 months for 4 Occurrences starting 08/04/2024 until 08/04/2025 Scheduled Procedures Name Priority Associated Diagnoses Date/Ti me EGD, UPPER GI ENDOSCOPY (WRVU 2.09) Gastroesophageal reflux disease with esophagitis, unspecified whether hemorrhage 09/29/2024 4:30 PM EST documented as of this encounter Goals Goal Patient Goal Type Associated Problems Recent Progress Patient-Stated? Author [facility] Medication Compliance and Understanding Patient Facing Action Plan Curly Nicolas, [facility] Note: The patient? s goal [...] hemorrhage documented in this encounter Care Teams University Teacher Relationship Specialty Start Date End Date Kennedi Shaver MD [facility] [address] [place] [address] PCP - General Family Medicine 06/25/24 documented as of this encounter
--- OUTSIDE RECORDS SUMMARY | 2024-09-11 15:18 | XMS_ITS | Encounter Summary ---
[place] [address] Care Team Providers Care Medical Translator Name Role Phone Kennedi Shaver MD Primary Care Provider [phone] Reason for Visit * Treatment/Therapy Plan Authorization (Routine) - Authorized Specialty Diagnoses / Procedures Referred By Blaine peralta Referred To Contact Diagnoses Neoplasm of prostate, 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 Procedures TC LEUPROLIDE ACETATE, PER 1MG, INJECTION (LUPRON) Faith Caba MD [facility] DR HEMATOLOGY [place] [address] [facility] Hem Onc [address] [place] [address] Referral ID Status Reason Start Date Expiration Date V isits Requested Visits Authorized [id number] Authorized 09/27/2020 09/29/2024 99 99 Encounter Details Date Type Department Care Team (Latest Contact Info) Description 08/04/2024 11:54 AM EST - 08/04/2024 11:59 PM EST Hospital Encounter Hematology [place] [address] Neoplasm of prostate, distant metastasis staging category [...] muscle. Once every 3 months, dosage unknown documented as of this encounter Progress Notes * Stephanie Woodson RN - 08/04/2024 2:05 PM EST Patient Name: Chidi Carbone Patient Age: 78 y.o. Birthdate: 1945 Admit date: 08/04/2024 Attending Physician: No att. providers found Access visit. See MAR and/or flowsheet.lupron given tolerated well. OK to treat per NURSING MANAGER documented in this encounter Plan of Treatment Upcoming Encounters Date Type Department Care Team (Latest Contact Info) Description 09/29/2024 4:30 PM EST Hospital En[place] [phone] Lizet Wilkes MD [facility] [place] [address] 09/29/2024 4:30 PM EST - 09/29/2024 5:00 PM EST [place] [phone] Lizet Wilkes MD [facility] [place] [address] EGD, UPPER GI ENDOSCOPY (WRVU 2.09) 11/09/2024 10:00 AM EST Laboratory Appointment Lab at [facility] Hematology Oncology [address] [place] [phone] 11/09/2024 11:00 AM EST Office Visit Hematology [place] [phone] Faith Caba MD [facility] DR HEMATOLOGY [place] [address] 11/09/2024 12:00 PM EST Appointment Hematology [place] [address] Scheduled Procedures Name Priority Associated Diagnoses Date/Ti me EGD, UPPER GI ENDOSCOPY (WRVU 2.09) Gastroesophageal reflux disease with esophagitis, unspecified whether hemorrhage 09/29/2024 4:30 PM EST documented as of this encounter Goals Goal Patient Goal Type Associated Problems Recent Progress Patient-Stated? Author [facility] Medication Compliance and Understanding Patient Facing Action Plan Curly Nicolas, [facility] Note: The patient? s goal is to [...] 22.5 mg, Intramuscular, ONCE, 1 dose, On Sat08/04/24 at 1415, Routine, This agent is restricted to outpatient use. Is this drug being given as an outpatient? Yes Given 08/04/2024 1:59 PM EST 22.5 mg Left Gluteal documented in this encounter Care Teams Medical Translator Relationship Specialty Start Date End Date Kennedi Shaver MD [facility] [address] [address] [place] [address] PCP - General Family Medicine 06/25/24 documented as of this encounter
--- OUTSIDE RECORDS SUMMARY | 2024-09-11 15:19 | XMS_ITS | Encounter Summary ---
Author Organization [facility] Address [facility] [address] Care Team Providers Care Light Truck Driver Name Role Phone Kennedi Shaver MD Primary Care Provider [phone] Encounter Details Date Type Department Care Team (Late st Contact Info) Description 12/31/2023 Orders [place] [address] Jessica Ramirez PA [facility] [place] [address] Right shoulder pain, unspecified chronicity Social History Tobacco Use Types Packs/Day Years Used Date Smoking Tobacco: Former Cigarettes 1977 Smokeless Tobacco: Never Alcohol Use Standard Drinks/Week Comments Not Currently 14 (1 standard drink = 0.6 oz pu re alcohol) 1 drink a day [facility] Inpatient Questions Answer Date Recorded Does Anyone [...] as of this encounter Progress Notes * Jessica Ramirez PA - 12/31/2023 9:20 PM EDT Based on my personal review of the patient's chart, medical history, and available imaging it is myassessment that new images will need to be obtained for appropriate clinical decision making. documented in this encounter Plan of Treatment Upcoming Encounters Date Type Department Care Team (Latest Contact Info) Description 09/29/2024 4:30 PM EST Hospital Encounter Gastroenterology at [place] [phone] Lizet Wilkes MD [facility] [place] [address] 09/29/2024 4:30 PM EST - 09/29/2024 5:00 PM EST Surgery [place] [phone] Lizet Wilkes MD [facility] [place] [address] EGD, UPPER GI ENDOSCOPY (WRVU 2.09) 11/09/2024 10:00 AM EST Laboratory Appointment Lab at [facility] Hematology Oncology [address] [place] [phone] 11/09/2024 11:00 AM EST Office Visit Hematology [place] [phone] Faith Caba MD [facility] [place] [address] 11/09/2024 12:00 PM EST Appointment Hematology and Oncology at [place] [phone] Scheduled Procedures Name Priority Associated Diagnoses Date/Ti me EGD, UPPER GI ENDOSCOPY (WRVU 2.09) Gastroesophageal reflux disease with esophagitis, unspecified whether hemorrhage 09/29/2024 4:30 PM EST documented as of this encounter Goals Goal Patient Goal Type Associated Problems Recent Progress Patient-Stated? Author Home Medication Compliance and Understanding Patient Facing Action Plan Curly Nicolas, [facility] Note: The patient? s goal is to continue positive results of oral chemotherapy by maintaining improved labs PSA or stable scans in clinic for the upcoming year. documented as of this encounter Results * XR Shoulder Right (Generic) (01/17/2024 2:40 PM EDT) WORKSTATION ID [id number] RAD Anatomical Region Laterality Modality Shoulder Right Digital Radiogra phy Impressions 01/17/2024 3:34 PM EDT 1. ??No acute fracture or dislocation 2. ??AC joint osteoarthropathy 3. ??Eccentric glenoid wear with moderate to severe narrowed glenohumeral joint space. Thank you for letting us participate in the care of this patient. ??If you are a health care provider and have any questions regarding this report, please contact the number below. ??For patients who have questions please contact the health director career services that requested your imaging first. ? Electronically signed by: Annabel Garsia MD, [facility] ([phone]), at 01/17/2024 3:34 PM Narrative 01/17/2024 3:34 PM EDT EXAMINATION: XR SHOULDER RIGHT (GENERIC) CLINICAL HISTORY: right shoulder pain, , entered by ordering service TECHNIQUE: 4 views COMPARISON: None FINDINGS: BONES: No acute fracture is present. Decreased bone mineralization AC JOINT: Normal AC joint alignment ??with lateral down sloped acromium and small osteophytes. GLENOHUMERAL JOINT: ?? Moderate to severely narrowed glenohumeral joint space on the axillary view with osteophyte formation, flattening of bone ends, subchondral cysts and subchondral sclerosis. ??The humeral head is slightly posteriorly translated. SOFT TISSUE: periarticular calcifications- none SURVEY: No opacity seen following brief survey of the soft tissues including lung parenchyma. Procedure Note Annabel Garsia MD - 01/17/2024 EXAMINATION: XR SHOULDER RIGHT (GENERIC) CLINICAL HISTORY: right shoulder pain, , entered by ordering service TECHNIQUE: 4 views COMPARISON: None FINDINGS: BONES: No acute fracture is present. Decreased bone mineralization AC JOINT: Normal AC joint alignment with lateral down sloped acromium and small osteophytes. GLENOHUMERAL JOINT: Moderate to severely narrowed glenohumeral joint space on the axillaryview with osteophyte formation, flattening of bone ends, subchondral cysts andsubchondral sclerosis. The humeral head is slightly posteriorly translated. SOFT TISSUE: periarticular calcifications- none SURVEY: No opacity seen following brief survey of the soft tissues includinglung parenchyma. IMPRESSION 1. No acute fracture or dislocation 2. AC joint osteoarthropathy 3. Eccentric glenoid wear with moderate to severe narrowed glenohumeraljoint space. Thank you for letting us participate in the care of this patient. If youare a health care provider and have any questions regarding this report,please contact the number below. For patients who have questions please contactthe health director career services that requested your imaging first. Electronically signed by: Annabel Garsia MD, [facility]([phone]), at 01/17/2024 3:34 PM Lawanda Swartz MD IMG DX ORDERABLES documented in this encounter Visit Diagnoses Diagnosis Right shoulder pain, unspecified chronicity Right shoulder pain, unspecified chronicity Gastroesophageal reflux disease with esophagitis, unspecified whether hemorrhage documented in this encounter Care Teams Light Truck Driver Relationship Specialty Start Date End Date Kennedi Shaver MD [facility] [address] [place] [address] PCP - General Family Medicine 08/02/20 06/24/24 documented as of this encounter
--- OUTSIDE RECORDS SUMMARY | 2024-09-11 15:19 | XMS_ITS | Encounter Summary ---
Author Organization [facility] [place] [address] Care Team Providers Care Concrete Mixer Truck Driver Name Role Phone Kennedi Shaver MD Primary Care Provider [phone] Encounter Details Date Type Department Care Team (Latest Contact Info) Description 02/07/2024 Travel Social History Tobacco Use Types Packs/Day [...] Contact Info) Description 09/29/2024 4:30 PM [facility] Hospital [place] [phone] Lizet Wilkes MD [facility] [place] [address] 09/29/2024 4:30 PM EST - 09/29/2024 5:00 PM EST [place] [address] Lizet Wilkes MD [facility] [place] [address] EGD, UPPER GI ENDOSCOPY (WRVU 2.09) 11/09/2024 10:00 AM EST Laboratory Appointment Lab at [facility] Hematology Oncology [address] [place] [phone] 11/09/2024 11:00 AM EST Office Visit [place] [phone] Faith Caba MD [facility] DR [place] [address] 11/09/2024 12:00 PM EST Appointment [place] [phone] Scheduled Procedures Name Priority Associated Diagnoses Date/Ti me EGD, UPPER GI ENDOSCOPY (WRVU 2.09) Gastroesophageal reflux disease with esophagitis, unspecified whether hemorrhage 09/29/2024 4:30 PM EST documented as of this encounter Goals Goal Patient Goal Type Associated Problems Recent Progress Patient-Stated? Author [facility] Medication Compliance and Understanding Patient Facing Action Plan Curly Nicolas, [facility] Note: The patient? s goal is to continue positive results of oral chemotherapy by maintaining improved labs PSA or stable scans in clinic for the upcoming year. documented as of this encounter Visit Diagnoses Not on filedocumented in this encounter Care Teams Concrete Mixer Truck Driver Relationship Specialty Start Date End Date Kennedi Shaver MD [facility] [address] [place] [address] PCP - General Family Medicine 08/02/20 06/24/24 documented as of this encounter
--- OUTSIDE RECORDS SUMMARY | 2024-09-11 15:19 | XMS_ITS | Encounter Summary ---
[place] [address] Care Team Providers Care Pool Hall Inspector Name Role Phone Kennedi Shaver MD Primary Care Provider [phone] Reason for Referral * Consultation (Routine) - Closed Specialty Diagnoses / Procedures Referred By Blaine peralta Referred To Contact Gastroenterology Diagnoses Polyp of colon, unspecified part of colon, unspecified type HAS HAD BARRETTS ESOPHAGUS FOR YEARS, W/O DYSPLASIA, LAST EGD/BX WAS 2013, AT THAT TIME RECOMMENDED REFERRAL TO DRU RM BUT NEVER DONE, HAS HAD COLO FOR GI BLEEDING 1-2 YRS AGO, SMALL POLYP NOTED BUT NOT BIOPSIED DUE TO ACUTE BLEEDING Kennedi Shaver MD [address] [place] [address] [facility] Endoscopy [address] [place] [address] Referral ID Status Reason Start Date Expiration Date V isits Requested Visits Authorized [id number] Closed Consult, Test & Treat PCP Updated and/or Approved 01/22/2024 01/21/2025 6 6 Encounter Details Date Type Department Care Team (Latest Contact Info) Description 01/22/2024 Transcribe Orders eDH Incoming Referrals [phone] Kennedi Shaver MD [facility] [address] [place] [address] Polyp of colon, unspecified part of colon, unspecified type Social History Tobacco Use Types Packs/Day Years Used Date Smoking Tobacco: Former Cigarettes 1977 Smokeless Tobacco: Never Alcohol Use Standard Drinks/Week Comments Not Currently 14 (1 standard drink = 0.6 oz pu re alcohol) 1 drink a day [facility] Inpatient Questions Answer Date Recorded Does Anyone [...] 4:30 PM EST Hospital Encounter [place] [phone] Lizet Wilkes MD [facility] [place] [address] 09/29/2024 4:30 PM EST - 09/29/2024 5:00 PM EST [place] [phone] Lizet Wilkes MD [facility] [place] [address] EGD, UPPER GI ENDOSCOPY (WRVU 2.09) 11/09/2024 10:00 AM EST Laboratory Appointment Lab at [facility] [place]ology Oncology [address] [place] [phone] 11/09/2024 11:00 AM EST Office Visit Hematology [place] [address] Faith Caba MD [facility] DR [place] [address] 11/09/2024 12:00 PM EST Appointment Hematology [place] [phone] Scheduled Procedures Name Priority Associated Diagnoses Date/Ti me EGD, UPPER GI ENDOSCOPY (WRVU 2.09) Gastroesophageal reflux disease with esophagitis, unspecified whether hemorrhage 09/29/2024 4:30 PM EST Scheduled Referrals Name Type Priority Associated Diagnoses Order Schedule Referral to Gastroenterology Outpatient Referral Routine Polyp of colon, unspecified part of colon, unspecified type Ordered: 01/22/2024 documented as of this encounter Goals Goal Patient Goal Type Associated Problems Recent Progress Patient-Stated? Author [facility] Medication Compliance and Understanding Patient Facing Action Plan Curly Nicolas, [facility] Note: The patient? s goal is to continue positive results of oral chemotherapy by maintaining improved labs PSA or stable scans in clinic for the upcoming year. documented as of this encounter Visit Diagnoses Diagnosis Polyp of colon, unspecified part of colon, unspecified type Gastroesophageal reflux disease with esophagitis, unspecified whether hemorrhage documented in this encounter Care Teams Pool Hall Inspector Relationship Specialty Start Date End Date Kennedi Shaver MD [facility] [address] [place] [address] PCP - General Family Medicine 08/02/20 06/24/24 documented as of this encounter
--- OUTSIDE RECORDS SUMMARY | 2024-09-11 15:19 | XMS_ITS | Encounter Summary ---
Author Organization [facility] [place] [address] Care Team Providers Care Director Security Management Name Role Phone Kennedi Shaver MD Primary Care Provider Encounter Details Date Type Department Care Team (Late st Contact Info) Description 03/16/2024 Telephone [place] [phone] Wendy Mendez Social History Tobacco Use Types Packs/Day Years [...] 4:30 PM EST Hospital En[place] [phone] Lizet Wilkes MD [facility] [place] [address] 09/29/2024 4:30 PM EST - 09/29/2024 5:00 PM EST [place] [phone] Lizet Wilkes MD [facility] [place] [address] EGD, UPPER GI ENDOSCOPY (WRVU 2.09) 11/09/2024 10:00 AM EST Laboratory Appointment Lab at [facility] Hematology Oncology [address] [place] [phone] 11/09/2024 11:00 AM EST Office Visit [place] [phone] Faith Caba MD [facility] DR HEMATOLOGY [place] [address] 11/09/2024 12:00 PM EST Appointment Hematology and Oncology at [place] [phone] Scheduled Procedures Name Priority Associated Diagnoses Date/Ti [...] on filedocumented in this encounter Care Teams Director Security Management Relationship Specialty Start Date End Date Kennedi Shaver MD [address] [place] [address] PCP - General Family Medicine 08/02/20 06/24/24 documented as of this encounter
--- OUTSIDE RECORDS SUMMARY | 2024-09-11 15:19 | XMS_ITS | Encounter Summary ---
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 Procedures TC LEUPROLIDE ACETATE, PER 1MG, INJECTION (LUPRON) Faith Caba MD [facility] [address] [place] [address] [facility] [address] [place] [address] Referral ID Status Reason Start Date Expiration Date V isits Requested Visits Authorized [id number] Authorized 09/27/2020 09/29/2024 99 99 Encounter Details Date Type Department Care Team (Latest Contact Info) Description 01/28/2024 9:39 AM EDT - 01/28/2024 11:59 PM EDT Hospital Encounter [place]ematology [place] [address] Neoplasm of prostate, distant metastasis staging category [...] Sig Dispensed Refills Start Date End Date sildenafiL (Viagra) 50 mg tablet Take 50 [...] of this encounter Progress Notes * Jessica Duque RN - 01/28/2024 11:54 AM EDT Patient Name: Chidi Carbone Patient Age: 78 y.o. Birthdate: 1945 Admit date: 01/28/2024 Attending Physician: No att. providers found Lupron administered. documented in this encounter Plan of Treatment Upcoming Encounters Date Type Department Care Team (Latest Contact Info) Description 09/29/2024 4:30 PM EST Hospital En[place] [address] Lizet Wilkes MD [facility] [place] [address] 09/29/2024 4:30 PM EST - 09/29/2024 5:00 PM EST [place] [phone] Lizet Wilkes MD [facility] [place] [address] EGD, UPPER GI ENDOSCOPY (WRVU 2.09) 11/09/2024 10:00 AM EST Laboratory Appointment Lab at [facility] Hematology Oncology [address] [place] [phone] 11/09/2024 11:00 AM EST Office Visit [place]ematology [place] [phone] Faith Caba MD [facility] DR [place] [address] 11/09/2024 12:00 PM EST Appointment Hematology [place] [phone] Scheduled Procedures Name Priority Associated Diagnoses Date/Ti me EGD, UPPER GI ENDOSCOPY (WRVU 2.09) Gastroesophageal reflux disease with esophagitis, unspecified whether hemorrhage 09/29/2024 4:30 PM EST documented as of this encounter Goals Goal Patient Goal Type Associated Problems Recent Progress Patient-Stated? Author [facility] Medication Compliance and Understanding Patient Facing Action Plan Curly Nicolas, [facility] Note: The patient? s [...] Date Dose Rate Site leuprolide (Lupron Depot) injection 22.5 mg 22.5 mg, Intramuscular, ONCE, 1 dose, On Sat01/28/24 at 1200, Last injection site was... leuprolide IM injection site: L Gluteal (07/29/2023 11:27 AM), Routine, This agent is restricted to outpatient use. Is this drug being given as an outpatient? Yes Given 01/28/2024 11:54 AM EDT 22.5 mg Left Gluteal documented in this encounter Care Teams Metalizing Machine Operator Relationship Specialty Start Date End Date Kennedi Shaver MD [address] [place] [address] PCP - General Family Medicine 08/02/20 06/24/24 documented as of this encounter
--- OUTSIDE RECORDS SUMMARY | 2024-09-11 15:19 | XMS_ITS | Encounter Summary ---
[place] [address] Care Team Providers Care Activated Sludge Operator Name Role Phone Kennedi Shaver MD Primary Care Provider [phone] Reason for Visit * Reason Comments Specialty Refill Management Encounter Details Date Type Department Care Team (Late st Contact Info) Description 11/14/2023 Specialty Pharm[place] [address] Radha Larson [facility] Social History Tobacco Use Types Packs/Day Years Used Date Smoking Tobacco: Former Cigarettes 1977 Smokeless Tobacco: Never Alcohol Use Standard Drinks/Week Comments Not Currently 14 (1 standard drink = 0.6 oz pu re alcohol) 1 drink a day [facility] Inpatient Questions Answer Date Recorded Does Anyone [...] as of this encounter Progress Notes * Radha Larson RPH - 11/14/2023 11:52 AM EST Clinical Management Plan: Refill Specialty Pharmacy Consultation; Radha Larson [facility] Medication Management (CMM) Chidi Carbone is a 77 y.o. (1945) male who was contacted in regard to a specialty medication refill reminder. The patient requested a refill of Zytiga. A review of the medication therapy was performed. The medication was refilled as scheduled, and all medication related questions and concerns were addressed. The specialty pharmacy staff will follow up with the patient 5-7 days prior to next refill. Was a change made to the Care Plan: no If yes, should the medication be held: No Assessment and Recommendations: Medication Management Method of Contact: Telephone Cognitive Ability: good Cognitive Impairment Status Verified this Year: no Allergies and Drug intolerance: No Known Allergies Medication Reconciliation Discrepancies (compared to [facility] med list) -n/a Specialty Pharmacy Refill Questionnaire More data exists 11/14/2023 Refill Questionnaire What is the name of the specialty medication you are refilling? Zytiga Are you taking any new medications? No Any new medical condition? No Any new allergies? No Any missed doses since your last fill? 1-2 Any new side effects that are bothersome? No What date will you need this fill by? 11/19/2023 Adherence: Specialty Med Adherence Patient Demonstrates Understanding of Importance of Adherence: Yes Educational Information or Adherence Tools Provided: Yes Patient Reported X Missed Doses in the Last Month: 0 Provider-Estimated Medication Adherence Level: 90-100% Adherence Tools Used: calendar Pt understands no changes to current drug regimen were made at the appointment and that [facility] is providing recommendations (summary located at top of note) for provider review and follow up. Radha Larson RPH 11/14/23 11:53 AM documented in this encounter Plan of Treatment Upcoming Encounters Date Type Department Care Team (Latest Contact Info) Description 09/29/2024 4:30 PM EST Hospital Encounter [place] [phone] Lizet Wilkes MD [facility] [place] [address] 09/29/2024 4:30 PM EST - 09/29/2024 5:00 PM EST Surgery Gastroenterology at [place] [phone] Lizet Wilkes MD [facility] [place] [address] EGD, UPPER GI ENDOSCOPY (WRVU 2.09) 11/09/2024 10:00 AM EST Laboratory Appointment Lab at [facility] Hematology Oncology [address] [place] [phone] 11/09/2024 11:00 AM EST Office Visit Hematology and Oncology at [place] [phone] Faith Caba MD [facility] DR HEMATOLOGY [place] [address] 11/09/2024 12:00 PM EST Appointment [place]ematology [place] [address] Scheduled Procedures Name Priority Associated Diagnoses Date/Ti me EGD, UPPER GI ENDOSCOPY (WRVU 2.09) Gastroesophageal reflux disease with esophagitis, unspecified whether hemorrhage 09/29/2024 4:30 PM EST documented as of this encounter Goals Goal Patient Goal Type Associated Problems Recent Progress Patient-Stated? Author [facility] Medication Compliance and Understanding Patient Facing Action Plan Curly Nicolas, [facility] Note: The patient? s goal is to continue positive results of oral chemotherapy by maintaining improved labs PSA or stable scans in clinic for the upcoming year. documented as of this encounter Visit Diagnoses Not on filedocumented in this encounter Care Teams Activated Sludge Operator Relationship Specialty Start Date End Date Kennedi Shaver MD [facility] [address] [place] [address] PCP - General Family Medicine 08/02/20 06/24/24 documented as of this encounter
--- OUTSIDE RECORDS SUMMARY | 2024-09-11 15:19 | XMS_ITS | Encounter Summary ---
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 Discharge Disposition: Home Social History Tobacco Use Types Packs/Day Years Used Date Smoking Tobacco: Former Cigarettes 1977 Smokeless Tobacco: Never Alcohol Use Standard Drinks/Week Comments Not Currently 14 (1 standard drink = 0.6 oz pu re alcohol) 1 drink a day [facility] Inpatient Questions Answer Date Recorded [...] 4:30 PM EST Hospital Encounter [place] [address] Lizet Wilkes MD [facility] [place] [address] 09/29/2024 4:30 PM EST - 09/29/2024 5:00 PM EST Surgery [place] [phone] Lizet Wilkes MD [facility] [place] [address] EGD, UPPER GI ENDOSCOPY (WRVU 2.09) 11/09/2024 10:00 AM EST Laboratory Appointment Lab at [facility] Hematology Oncology [address] [place] [phone] 11/09/2024 11:00 AM EST Office Visit Hematology [place] [address] Faith Caba MD [facility] [place] [address] 11/09/2024 12:00 PM EST Appointment Hematology [place] [phone] Scheduled Procedures Name Priority Associated Diagnoses Date/Ti me EGD, UPPER GI ENDOSCOPY (WRVU 2.09) Gastroesophageal reflux disease with esophagitis, unspecified whether hemorrhage 09/29/2024 4:30 PM EST documented as of this encounter Goals Goal Patient Goal Type Associated Problems Recent Progress Patient-Stated? Author DH Olga Medication Compliance and Understanding Patient Facing Action Plan Curly Nicolas, [facility] Note: The patient? s goal is to continue positive results of oral chemotherapy by maintaining improved labs PSA or stable scans in clinic for the upcoming year. 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 TESTOSTERONE, TOTAL Routine 01/28/2024 9 :48 AM EDT Neoplasm of prostate, 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 PSA (ULTRASENSITIVE) Routine 01/28/2024 9:48 AM EDT Neoplasm of prostate, 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 COMPREHENSIVE METABOLIC PANEL Routine 01/28/2024 9:48 AM EDT Neoplasm of prostate, 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 documented in this encounter Results * Differential, Automated (01/28/2024 9:48 AM EDT) Neutrophil % 64.6 % [facility] Neutrophil Absolute 3.37 1.70 - 6.10 x10(3)/[facility] Lymph % 17.5 % [facility] Lymphocytes Abs 0.9 0.9 - 3.2 x10(3)/[facility] Monocyte % 13.8 % [facility] Monocyte Abs 0.7 0.3 - 0.9 x10(3)/[facility] Eos % 3.5 % [facility] Eosinophils Abs 0.2 0.0 - 0.4 x10(3)/[facility] Basophil % 0.4 % [facility] Baso Absolute 0.0 0.0 - 0.1 x10(3)/[facility] Immature Gran % 0.20 % [facility] Comment: Immature granulocytes(IG's)percentage and absolute count will include metamyelocytes, myelocytes, and promyelocytes. Blood smears from CBCs yielding IG's will be scanned manually for concordance. If this scan disagrees with the automated IG or if promyelocytes are noted, a manual differential will be performed. Immature Gran Absolute 0.01 0.00 - 0.04 x10(3)/mcL [facility] Blood 01/28/2024 9:48 AM EDT 01/28/2024 9:56 AM EDT Narrative Resulting Agency Comment Spec In Lab Faith Caba MD HEMATOLOGY ORDERABLE S [facility] [place] [address] * (ABNORMAL) Hemogram (01/28/2024 9:48 AM EDT) White Blood Cell 5.2 4.0 - 9.5 x10(3)/ L [facility] Red Blood Cell 4.07(L) 4.58 - 5.54 x10(6)/[facility] Hemoglobin 12.6(L) 13.7 - 16.5 g/dL [facility] Hematocrit 36.5(L) 40.5 - 48.5 % [facility] Mean Cell Volume 89.7 82.9 - 93.1 [facility] Mean Cell Hemoglobin 31.0 27.5 - 32.1 pg [facility] Mean Cell Hemoglobin Concentration 34.5 32.0 - 35.7 g/dL [facility] Platelet 276 145 - 357 x10(3)/ L [facility] RDW Standard Deviation 44.6 36.0 - 45.0 [facility] RDW coefficient of variation 13.6 11.4 - 13.8 % [facility] Mean Platelet Volume 9.5 7.6 - 12.9 [facility] NRBC% auto 0.0 % [facility] NRBC Absolute 0.000 0.000 - 0.000 x10(3)/ L [facility] Blood 01/28/2024 9:48 AM EDT 01/28/2024 9:56 AM EDT Narrative Resulting Agency Comment Spec In Lab Faith Caba MD HEMATOLOGY ORDERABLE S [facility] [place] [address] * (ABNORMAL) Testosterone, total (01/28/2024 9:48 AM EDT) Testosterone <0.12(L) 1.93 - 7.40 ng/mL [facility] Comment: Pediatric Reference Ranges: ? Males [...] Kenneth Paz Testosterone II 07/2022, v2.0 Blood 01/28/2024 9:48 AM EDT 01/28/2024 9:56 AM EDT Narrative Resulting Agency Comment Spec In Lab Faith Caba MD CHEMISTRY ORDERABLES Performing Organization Address [facility] Co de Phone Number [facility] [place] [address] * PSA (Ultrasensitive) (01/28/2024 9:48 AM EDT) Prostate Specific Antigen (Ultrasensitive) <0.01 0.00 - 4.00 ng/mL [facility] Comment: PLEASE NOTE: The above reference interval is intended for healthy males with an intact prostate. Values within this reference interval may indicate recurrence in men who have undergone radical prostatectomy. This result was generated using a Kenneth Paz immunoassay. ??Results obtained from other methods or manufacturers cannot be used interchangeably with this method. Blood 01/28/2024 9:48 AM EDT 01/28/2024 9:56 AM EDT Narrative Resulting Agency Comment Spec In Lab Faith Caba MD CHEMISTRY ORDERABLES Performing Organization Address [facility] Co de Phone Number [facility] [place] [address] * Comprehensive metabolic panel (non-fasting) (01/28/2024 9:48 AM EDT) Glucose 112 65 - 199 mg/dL [facility] Comment:Diabetes: >=200 mg/d L plus symptoms Blood Urea Nitrogen 16 10 - 20 mg/dL [facility] Creatinine 0.81 0.80 - 1.50 mg/dL [facility] Sodium 142 135 - 145 mmol/L [facility] Potassium 4.0 3.5 - 5.0 mmol/L [facility] Comment: Please note: ??Patients with WBC >100,000 may have falsely elevated Potassium levels. ??For accurate Potassium quantification in these patients send serum separator tube (gold top) for subsequent determinations. ??Contact the Clinical Chemistry Laboratory if there are any questions. Chloride 106 98 - 107 mmol/L [facility] Carbon Dioxide 23 22 - 31 mmol/L [facility] Anion Gap 13 5 - 15 mmol/L [facility] Calcium 9.1 8.5 - 10.5 mg/dL [facility] Protein, Total 6.5 6.1 - 8.0 g/dL [facility] Albumin 4.2 3.2 - 5.2 g/dL [facility] Aspartate Aminotransferase 13 0 - 39 unit/L [facility] Alanine Aminotransferase 8 0 - 55 unit/L [facility] Alkaline Phosphatase 100 40 - 130 unit/L [facility] Bilirubin, Total 0.5 0.2 - 1.3 mg/dL [facility] Est Glomerular Filtration Rate 90 >=60 mL/min/1. 73 m?? [facility] Comment: This patient's estimated GFR was [...] and symptoms in addition to eGFR. 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
--- OUTSIDE RECORDS SUMMARY | 2024-09-11 15:19 | XMS_ITS | Encounter Summary ---
Author Organization [facility] Address [facility] [place] [address] Care Team Providers Care Manager Truck Name Role Phone Kennedi Shaver MD Primary Care Provider Encounter Details Date Type Department Care Team (Latest Contact Info) Description 03/17/2024 1:15 PM EDT - 03/17/2024 5:08 PM EDT Hospital [place] [phone] Marina Gardner MD [facility] [place] [address] Discharge Disposition: Home Social History Tobacco Use Types Packs/Day Years Used Date Smoking Tobacco: Former Cigarettes 1977 Smokeless Tobacco: Never Tobacco Cessation:Counseling Given: Not Answered Alcohol Use Standard Drinks/Week Comments Yes 14 (1 standard drink = 0.6 oz pu re alcohol) 1 drink a day [facility] Inpatient Questions Answer Date Recorded [...] Sign Reading Time Taken Comments Blood Pressure 157/101 03/17/2024 4:25 PM EDT Pulse 56 03/17/2024 4:10 PM EDT Temperature 36.7 ??C (98 ??F) 03/17/2024 2:08 PM EDT Respiratory Rate 18 03/17/2024 4:23 PM EDT Oxygen Saturation 97% 03/17/2024 4:25 PM EDT Inhaled Oxygen Concentration - - Weight 74.8 kg (165 lb) 03/17/2024 2:08 PM EDT Height 177.8 cm (5' 10) 03/17/2024 2:08 PM EDT Body Mass Index 23.68 03/17/2024 2:08 PM EDT documented in this encounter Discharge Instructions * Discharge Instructions* Sujey Cadena RN - 03/17/2024 4:26 PM EDT Upper Endoscopy (EGD) and Colonoscopy: What to Expect at Home Your Recovery After you have an EGD and colonoscopy, you will stay at the clinic for 1 to 2 hours until the medicines wear off. Then you can go home. But you will need to arrange for a ride. Your doctor will tell you when you can eat and do your other usual activities. Your doctor will talk to you about when you will need your next colonoscopy. Your doctor can help you decide how often you need to be checked. This will depend on the results of your test and your risk for colorectal cancer. You may have a sore throat for a day or two after the test. After the test, you may be bloated or have gas pains. You may need to pass gas. If a biopsy was done or a polyp was removed, you may have streaks of blood in your stool (feces) for a few days. Problems such as heavy rectal bleeding may notoccur until several weeks after the test. This isn't common. But it can happen after polyps are jono alex. This care sheet gives you a general idea about how long it will take for you to recover. But each person recovers at a different pace. Follow the steps below to get better as quickly as possible. How can you care for yourself at home? Activity Rest when you feel tired. You can do your normal activities when it feels okay to do so. Diet Follow your doctor's directions for eating. Unless your doctor has told you not to, drink plenty of fluids. This helps to replace the fluids that were lost during the colon prep. Do not drink alcohol. Medicines If you have a sore throat the day after the test, use an chmo-eba-zygqgbd spray or lozenges to numbyour throat. Warm salt water gargles can also help the discomfort. Your doctor will tell you if and when you can restart your medicines. He or she will also give you instructions about taking any new medicines. If you take blood thinners, such as warfarin (Coumadin), clopidogrel (Plavix), or aspirin, be sure to talk to your doctor. He or she will tell you if and when to start taking those medicines again. Make sure that you understand exactly what your doctor wants you to do. If polyps were removed or a biopsy was done during the test, your doctor may tell you not to take aspirin or other anti-inflammatory medicines for a few days. These include ibuprofen (Advil, Motrin) and naproxen (Aleve). Other instructions for patients who received sedation: You may have received medications during the procedure which effect your judgement and reaction time. For your safety, do not drive or operate machinery until the medicine wears off and you can think clearly. Your doctor may tell you not to drive or operate machinery until the day after your test. Do not sign legal documents or make major decisions until the medicine wears off and you can think clearly. The anesthesia can make it hard for you to fully understand what you are agreeing to. Be careful on stairs and when standing up quickly as you may be unsteady on your feet. IV site: Slight redness or tenderness is normal. You can use a warm compress if you would like. If tenderness and/or redness increase or if foul drainage occurs, please contact your doctor. Please call [phone] before 8pm Mon-Fri with problems, questions, or concerns. If you call after 8pm or on weekends, call the Hospital at [phone] and ask for the Escalator Constructor director oncology and the vending machine operator will contact that person for you. When should you call for help? Call 911 anytime you think you may need emergency care. For example, call if: You passed out (lost consciousness). You pass maroon or bloody stools. You have trouble breathing. Call your doctor now or seek immediate medical care if: You have pain that does not get better after you take pain medicine. You are sick to your stomach or cannot drink fluids. You have new or worse belly pain. You have blood in your stools. You have a fever. You cannot pass stools or gas. Your throat still hurts after a day or two. Your throat still hurts after a day or two. Watch closely for changes in your health, and be sure to contact your doctor if you have any problems. Where can you learn more? You can view health information on [employer], your personal patient account. Log in or sign up today. Content Version: 12.2 ?? 8510-8830 [employer]. Care instructions adapted under license by [facility]. If you have questions about a medical condition or this instruction, always ask your healthcare professional. [employer] disclaims any warranty or liability for your use of this information. 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 Melissa) Z96.651 EXAM: HEENT: Airway examined, oropharynx clear Mallampati Score: II (soft palate, uvula, fauces visible) LUNGS: Clear to auscultation HEART: Regular rate and rhythm, normal S1, S2 ABDOMEN: Normal bowel sounds, soft, non tender, non distended, A/P Proceed with the planned endoscopic procedure. ASA 2 - Patient with mild systemic disease with no functional limitations Sedation Plan: moderate (conscious sedation) Risks and benefits of the procedure explained to the patient. Consent signed. documented in this encounter Plan of Treatment Upcoming Encounters Date Type Department Care Team (Latest Contact Info) Description 09/29/2024 4:30 PM EST Hospital [place] [phone] Lizet Wilkes MD [facility] [place] [address] 09/29/2024 4:30 PM EST - 09/29/2024 5:00 PM EST [place] [phone] Lizet Wilkes MD [facility] [place] [address] EGD, UPPER GI ENDOSCOPY (WRVU 2.09) 11/09/2024 10:00 AM EST Laboratory Appointment Lab at [facility] Hematology Oncology [address] [place] [phone] 11/09/2024 11:00 AM EST Office Visit Hematology [place] [phone] Faith Caba MD [facility] [place] [address] 11/09/2024 12:00 PM EST Appointment Hematology [place] [phone] Scheduled Procedures Name Priority Associated Diagnoses Date/Ti me EGD, UPPER GI ENDOSCOPY (WRVU 2.09) Gastroesophageal reflux disease with esophagitis, unspecified whether hemorrhage 09/29/2024 4:30 PM EST documented as of this encounter Goals Goal Patient Goal Type Associated Problems Recent Progress Patient-Stated? Author [facility] Medication Compliance and Understanding Patient Facing Action Plan Curly Nicolas, [facility] Note: The patient? s goal is to continue positive results of oral chemotherapy by maintaining improved labs PSA or stable scans in clinic for the upcoming year. documented as of this encounter Procedures Procedure Name Priority Date/Time Associated Diagnosis Comments SPECIMEN TO PATHOLOGY Routine 03/17/2024 4:18 PM EDT SPECIMEN TO PATHOLOGY Routine 03/17/2024 4:18 PM EDT SPECIMEN TO PATHOLOGY Routine 03/17/2024 4:18 PM EDT SPECIMEN TO PATHOLOGY Routine 03/17/2024 4:18 PM EDT SPECIMEN TO PATHOLOGY Routine 03/17/2024 4:18 PM EDT SURGICAL PATHOLOGY REPORT Routine 03/17/2024 3:09 PM EDT Colonoscopy, Remv Lesn, Snare ([id number]) 03/17/2024 2:46 PM EDT Gastroesophageal reflux disease, unspecified whether esophagitis present Upper Gi Endoscopy, Biopsy ([id number]) 03/17/2024 2:46 PM EDT Gastroesophageal reflux disease, unspecified whether esophagitis present Colonoscopy, Diagnostic ([id number]) 03/17/2024 2:46 PM EDT Gastroesophageal reflux disease, unspecified whether esophagitis present Upper GI Endoscopy, Diagnostic ([id number]) 03/17/2024 2:46 PM EDT Gastroesophageal reflux disease, unspecified whether esophagitis present COLONOSCOPY Routine 03/17/2024 2:31 PM EDT documented in this encounter Results * Specimen to Pathology (03/17/2024 4:18 PM EDT) AP Specimen 03/17/2024 4:18 PM EDT 03/17/2024 4:18 PM EDT Narrative [facility] - 03/17/2024 4:18 PM EDT Specimen requisition ordered. ??Separate Pathology report to follow Marina Gardner MD PATHOLOGY/CYTOLOGY O RDERABLES [facility] [place] [address] * Specimen to Pathology (03/17/2024 4:18 PM EDT) AP Specimen 03/17/2024 4:18 PM EDT 03/17/2024 4:18 PM EDT Narrative [facility] - 03/17/2024 4:18 PM EDT Specimen requisition ordered. ??Separate Pathology report to follow L Santos Gardner MD PATHOLOGY/CYTOLOGY O LEE ANN Performing Organization Address [facility] Co de Phone Number [facility] [place] [address] * Specimen to Pathology (03/17/2024 4:18 PM EDT) AP Specimen 03/17/2024 4:18 PM EDT 03/17/2024 4:18 PM EDT Narrative [facility] - 03/17/2024 4:18 PM EDT Specimen requisition ordered. ??Separate Pathology report to follow L Santos Gardner MD PATHOLOGY/CYTOLOGY O LEE ANN Performing Organization Address [facility] Co de Phone Number [facility] [place] [address] * Specimen to Pathology (03/17/2024 4:18 PM EDT) AP Specimen 03/17/2024 4:18 PM EDT 03/17/2024 4:18 PM EDT Narrative [facility] - 03/17/2024 4:18 PM EDT Specimen requisition ordered. ??Separate Pathology report to follow L Santos Gardner MD PATHOLOGY/CYTOLOGY O LEE ANN Performing Organization Address [facility] [place] [address] * Specimen to Pathology (03/17/2024 4:18 PM EDT) AP Specimen 03/17/2024 4:18 PM EDT 03/17/2024 4:18 PM EDT Narrative [facility] - 03/17/2024 4:18 PM EDT Specimen requisition ordered. ??Separate Pathology report to follow L Santos Gardner MD PATHOLOGY/CYTOLOGY O LEE ANN [facility] [place] [address] * Surgical Pathology Report (03/17/2024 3:09 PM EDT) Final Diagnosis [id number] ? Location: 4T; EA06; A The signing pathologist has (i) examined the relevant preparation(s) for the specimen(s) and (ii) rendered or confirmed the diagnosis(es). . ?Surgical Pathology DIAGNOSIS A - GE Junction bx, biopsy (Multiple): - ??Squamocolumnar junctional mucosa (cardia type) with ulceration, mild chronic inflammation and reactive changes. - There is no evidence of intestinal metaplasia. B - Esophageal bxs, biopsy (Multiple): - Ulcerative esophagitis. C - Ascending colon polyps 10mm, 6mm, resection: - ??Fragments of sessile serrated polyp/adenoma(s). D - Transverse colon polyp 5mm, 4mm, resection: - ??Fragments of tubular adenoma(s). E - Sigmoid colon polyp 4mm, resection: - ??Hyperplastic polyp. CR-PX Electronically signed by: ?Shen MOON PhD, Cleopatra Verified: ??03/30/2024 15:50 ??Pathologist Performed at: ??-[facility] Dept. of Pathology, [place] [address] Electronic Maintenance Supervisor: Mely Ayala MD, FCAP, ??CLIA Certificate: [id number] ADDITIONAL STUDIES Immunohistochemistry Studies: Formalin-fixed, paraffin-embedded tissue sections are studied using the polymer technique with appropriate positive and negative controls. ?These IHC studies provide the pathologist with adjunctive diagnostic information. Antibody specificity has been verified by testing antibodies on a series of in-house tissues with known immunohistochemical performance characteristics. The clinical interpretation of any antibody positive staining or its absence is evaluated within the context of clinical presentation, morphology, histopathological criteria and other diagnostic tests. Block ? Antibody ?Result (Positive/Negative) B1 ? HSV1 ? Negative B1 ? HSV2 ? Negative B1 ? CMV ?Negative SPECIMEN(S) SUBMITTED A - GE Junction bx, biopsy (Multiple) B - Esophageal bxs, biopsy (Multiple) C - Ascending colon polyps 10mm, 6mm, resection (2) D - Transverse colon polyp 5mm, 4mm, resection (2) E - Sigmoid colon polyp 4mm, resection (1) CLINICAL INFORMATION 78-year-old male/EGD - colo/history of Sol's and known colon polyps . SPECIMEN PROCESSING A - Labeled/Fixative: GE junction BX, formalin. Quantity/Size: Three, ranging from 0.3 to 0.5 cm. Tissue Description: Soft, chamorro-pink tissues. Sections/Processing: Submitted in toto ??in 1 cassette labeled A1. B - Labeled/Fixative: Esophageal biopsies, formalin. Quantity/Size: Multiple, ranging from 0.2 to 0.5 cm. Tissue Description: Soft, chamorro-pink tissues. Sections/Processing: Submitted in toto ??in 2 cassettes labeled B1-B2. C - Labeled/Fixative: Ascending colon polyps 10 mm, 6 mm, formalin. Quantity/Size: Multiple, ranging from 0.4 x 0.3 x 0.1 cm to 0.9 x 0.7 x 0.2 cm. Tissue Description: Chamorro-pink polypoid tissue fragments. Sections/Processing: in 4 cassettes as follows: ?C1: ??Single tissue, inked trisected and entirely submitted ?C2: ??Single tissue inked trisected and entirely submitted ?C3: ??Single tissue, inked bisected and entirely submitted ?C4: ??Remaining tissue fragments submitted in toto D - Labeled/Fixative: Transverse colon polyp 5 mm, 4 mm, formalin. Quantity/Size: Multiple, ranging from 0.3 x 0.3 x 0.1 cm to 1 x 0.5 x 0.2 cm. Tissue Description: Chamorro-pink polypoid tissue fragments. Sections/Processing: in 2 cassettes as follows: ?D1: ??Single tissue, inked quadrisected and entirely submitted ?D2: ??Remaining tissue fragments submitted in toto E - Labeled/Fixative: Sigmoid colon polyp 4 mm, formalin. Quantity/Size: Single, 0.8 x 0.4 x 0.1 cm. Tissue Description: Chamorro-pink polypoid tissue. Sections/Processing: Inked, trisected and entirely submitted in 1 cassette labeled E1. ??SM 03/30/2024 3:50 PM EDT [facility] GI Biopsy 03/17/2024 3:09 PM EDT 03/17/2024 3:09 PM EDT GI Biopsy 03/17/2024 3:09 PM EDT 03/17/2024 3:09 PM EDT GI Biopsy 03/17/2024 3:09 PM EDT 03/17/2024 3:09 PM EDT GI Biopsy 03/17/2024 3:09 PM EDT 03/17/2024 3:09 PM EDT GI Biopsy 03/17/2024 3:09 PM EDT 03/17/2024 3:09 PM EDT L Santos Gardner MD PATHOLOGY/CYTOLOGY O RDERABLES [facility] [place] [address] * COLONOSCOPY (03/17/2024 2:31 PM EDT) COLONOSCOPY [facility] Endoscopy Procedure Date: 03/17/2024 2:31 PM ? Patient Name: Chidi Carbone ? Date of : 1945 ? Age: 78 ? Order #: [id number] ? Instrument Name: [id number] ? Procedure: ? Colonoscopy Indications: ? History of known polyp not removed ? on prior exam. Providers: ? Malia Gardner MD, James Keith ? Isaac Mota Referring : ? Medicines: ? Midazolam 1 mg IV, [...] preparation was evaluated ? using the BBPS ([place] Bowel ? Preparation Scale) with scores of: [...] weeks, please call our office ? at [phone]. ? Attending Participation: ? I personally performed the entire procedure. ? __ L. Santos Gardner MD 03/17/2024 4:31:15 PM Number of Addenda: 0 Note Initiated On: 03/17/2024 2:31 PM PROVATION 03/17/2024 2:31 PM EDT Unknown GENERAL SURGICAL ORD ERABLES PROVATION documented in this encounter Visit Diagnoses Not on filedocumented in this encounter Administered Medications Inactive Administered Medications - up to 3 most recent administrations Medication Order MAR Action Action Date Dose Rate Site lactated ringers infusion 100 mL/hr, Intravenous, CONTINUOUS, Starting on e 03/17/24 at 1430, Until e 03/17/24 at 1659, Endoscopy (Day of Procedure) New Bag 03/17/2024 2:32 PM EDT 100 mL/hr 100 mL/hr documented in this encounter Active and Recently Administered Medications Times are shown in EDT. Continuous Medication Order 03/15/2024 03/16/2024 03/17/2024 lactated ringers infusion (CANCELED) 100 mL/hr, Intravenous, CONTINUOUS, Starting on e 03/17/24 at 1430, Until e 03/17/24 at 1659, Endoscopy (Day of Procedure) 1432 (New Bag - Prov ider: Sally Hernandez LPN) PRN Medication Order 03/15/2024 03/16/2024 03/17/2024 benzocaine (Hurricane One) 20% spray (restricted to salome-procedural use) (CANCELED) PRN, Starting on e 03/17/24 at 1451, Until e 03/17/24 at 1910, Intra-Operative (Intra-Procedure) 1451 (Given - Provid er: Sulaiman Mota RN) fentaNYL (pf) (50 mcg/mL) multi-dose injection (CANCELED) PRN, Starting on e 03/17/24 at 1451, Until 03/17/24 at 1910, Intra-Operative (Intra-Procedure), Routine 1451 (Given - Provid er: Sulaiman Mota RN)1454 (Given - Provider: Sulaiman Mota RN)1503 (Given - Provider: Sulaiman Mota RN)1519 (Given - Provider: Sulaiman Mota, RN)1536 (Given - Provider: Sulaiman Mota RN)1541 (Given - Provider: Sulaiman Mota, RN) midazolam (pf) (Versed) (1 mg/mL) multi-dose injection (CANCELED) PRN, Starting on Sat03/17/24 at 1451, Until Sat03/17/24 at 1910, Intra-Operative (Intra-Procedure), Routine 1451 (Given - Provid er: Sulaiman Mota RN)1454 (Given - Provider: Sulaiman Mota RN)1457 (Given - Provider: Sulaiman Mota RN)1503 (Given - Provider: Sulaiman Mota RN)1508 (Given - Provider: Sulaiman Mota RN)1524 (Given - Provider: Sulaiman Mota RN) documented in this encounter Care Teams Manager Truck Relationship Specialty Start Date End Date Kennedi Shaver MD [address] [place] [address] PCP - General Family Medicine 08/02/20 06/24/24 documented as of this encounter
--- OUTSIDE RECORDS SUMMARY | 2024-09-11 15:19 | XMS_ITS | Encounter Summary ---
Author Organization [place] [address] Care Team Providers Care Oracle Scm Consultant Name Role Phone Kennedi Shaver MD Primary Care Provider [phone] Encounter Details Date Type Department Care Team (Latest Contact Info) Description 01/17/2024 Travel Social History Tobacco Use Types Packs/Day [...] (Latest Contact Info) Description 09/29/2024 4:[address] [facility] Hospital [place] [phone] Lizet Wilkes MD [facility] [place] [address] 09/29/2024 4:30 PM EST - 09/29/2024 5:00 PM EST [place] [phone] Lizet Wilkes MD [facility] [place] [address] EGD, UPPER GI ENDOSCOPY (WRVU 2.09) 11/09/2024 10:00 AM EST Laboratory Appointment Lab at [facility] Hematology Oncology [address] [place] [phone] 11/09/2024 11:00 AM EST Office Visit H[place]ology [place] [phone] Faith Caba MD [facility] DR [place]AT[place] [address] 11/09/2024 12:00 PM EST Appointment Hematology [place] [phone] Scheduled Procedures Name Priority Associated Diagnoses Date/Ti me EGD, UPPER GI ENDOSCOPY (WRVU 2.09) Gastroesophageal reflux disease with esophagitis, unspecified whether hemorrhage 09/29/2024 4:30 PM EST documented as of this encounter Goals Goal Patient Goal Type Associated Problems Recent Progress Patient-Stated? Author [facility] Medication Compliance and Understanding Patient Facing Action Plan Curly Nicolas, [facility] Note: The patient? s goal is to continue positive results of oral chemotherapy by maintaining improved labs PSA or stable scans in clinic for the upcoming year. documented as of this encounter Visit Diagnoses Not on filedocumented in this encounter Care Teams Oracle Scm Consultant Relationship Specialty Start Date End Date Kennedi Shaver MD [facility] [address] [place] [address] PCP - General Family Medicine 08/02/20 06/24/24 documented as of this encounter
--- OUTSIDE RECORDS SUMMARY | 2024-09-11 15:19 | XMS_ITS | Encounter Summary ---
Author Organization [facility] Address [facility] [place] [address] Care Team Providers Care Shopper'S Aide Name Role Phone Kennedi Shaver MD Primary Care Provider [phone] Reason for Referral * Diagnostic Test (Routine) - Closed Specialty Diagnoses / Procedures Referred By Blaine peralta Referred To Contact Radiology Diagnoses Osteoarthritis of right shoulder, unspecified osteoarthritis type Procedures XR Fluoro Guided Joint Injection Large Right Image Guided MSK Joint/Tendon Injection/Aspiration (Generic) Marisa Rod PA [facility] [place] [address] [facility] Rad Xray [address] [place] [address] [place] [address] Referral ID Status Reason Start Date Expiration Date V isits Requested Visits Authorized [id number] Closed Specialty Service Requested 01/17/2024 07/18/2025 1 1 Reason for Visit * Reason Comments Right Shoulder Pain R SHOULDER PAIN, GIVENS ITED VERTICAL MOTION NO KNOWN RECENT INJURY, DID INJURE YANIRA 25 YEARS AGO * Consultation (Routine) - Closed Specialty Diagnoses / Procedures Referred By Blaine peralta Referred To Contact Orthopaedics Diagnoses Right shoulder pain Several years of right shoulder pain, very limited ROM, wishes ortho referral prior to doing PT. No known injury. Thinks that it started after his first covid shot. Kennedi Shaver MD [facility] [address] [place] [address] [facility] [address] [place] [address] Referral ID Status Reason Start Date Expiration Date V isits Requested Visits Authorized [id number] Closed Consult, Test & Treat 12/12/2023 12/11/2024 1 1 Encounter Details Date Type Department Care Team (Latest Contact Info) Description 01/17/2024 3:30 PM EDT Office [place] [address] Lawanda Swartz MD [facility] [place] [address] Marisa Rod PA [facility] [place] [address] Osteoarthritis of right shoulder, unspecified osteoarthritis type Social History Tobacco Use Types Packs/Day Years Used Date Smoking Tobacco: Former Cigarettes 1 1977 Smokeless Tobacco: Never Alcohol Use Standard Drinks/Week Comments Not Currently 14 (1 standard drink = 0.6 oz pu re alcohol) 1 drink a day [facility] Inpatient Questions Answer Date Recorded Does [...] - - Weight 78 kg (172 lb) 01/17/2024 3:14 PM EDT Height 177.8 cm (5' 10) 01/17/2024 3:14 PM EDT Body Mass Index 24.68 01/17/2024 3:14 PM EDT documented in this encounter Progress Notes * Marisa Rod PA - 01/17/2024 3:30 PM EDT Images from the original note were not included. Patient Name: Chidi Carbone AGE: 78 y.o. MR#: [id number] Date of Visit: 01/17/2024 Date of Injury/Onset: 1 year Chief Complaint: [...] shoulder. 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 Active with walking, light yard work. Medications and Allergies were reviewed in eD-H ROS: Pertinent items are noted in HPI. Past Medical Hx: Past Medical History: Diagnosis Date HTN (hypertension) Insomnia GIRISH (obstructive sleep apnea) Prostate cancer Past Surgical Hx: Past Surgical History: Procedure Laterality Date IR ARTERIOGRAM MESENTERIC 08/15/2022 IR Arteriogram Mesenteric 08/15/2022 Santo Duarte MD [facility] INTERVENTIONL RAD PRO ARTHROPLASTY KNEE CONDYLE & PLATEAU MEDIAL & LAT COMPARTMENTS Right 12/19/2022 TOTAL KNEE ARTHROPLASTY (WRVU 19.6) performed by Julio Melissa MD at [facility] MAIN OR PRO COLONOSCOPY, DIAGNOSTIC N/A 04/19/2015 COLONOSCOPY, DIAGNOSTIC performed by Nino Rocha MD at [facility] ENDOSCOPY PRO COLONOSCOPY, DIAGNOSTIC N/A 08/16/2022 COLONOSCOPY, DIAGNOSTIC performed by Bubba Wallace MD at [facility] ENDOSCOPY PRO COLONOSCOPY, FLEX, W/CONTROL, BLEEDING 08/16/2022 COLONOSCOPY; W CONTROL OF BLEEDING, ANY METHOD performed by Bubba Wallace MD at [facility] ENDOSCOPY PRO DRESSING CHANGE UNDER ANESTHESIA N/A 06/04/2019 DRESSING CHANGE (FOR OTHER THAN RAUSCH) UNDER ANES. (WRVU 0.86) performed by Rodri Villa MD at [facility] MAIN OR [facility] EDG FLEXIBLE TRANSORAL ABLATE TUMOR POLYP/LESION W/DILATION & WIRE N/A 04/19/2015 EGD, TRANSORAL; WITH ABLATION OF TUMOR(S), POLYP(S), OR OTHER LESION(S) performed by Nino Rocha MD at [facility] ENDOSCOPY PRO LAPAROSCOPY SURG ESOPHAGOGASTRIC FUNDOPLASTY 03/08/2014 LAPAROSCOPIC MODESTO FUNDOPLASTY performed by Surendra Garcia MD at [facility] MAIN OR PRO PREP SITE TRUNK/ARM/LEG 1ST 100 SQ CM/1PCT Right 06/04/2019 SURGICAL PREP/CREATION RECIPIENT SITE, FIRST 100 SQ CM, LEGS (WRVU 3.65) performed by Rodri Villa MD at [facility] MAIN OR PRO SPLIT GRFT TRUNK, ARM, LEG <100SQCM Right 06/04/2019 SPLIT THICK SKIN GRAFT,100 SQ CM OR LESS, LEGS (WRVU 9.9) performed by Rodri Villa MD at [facility] MAIN OR PRO UPPER GI ENDOSCOPY, BIOPSY 11/27/2011 UPPER GASTROINTESTINAL ENDOSCOPY,WITH BIOPSY SINGLE OR MULTIPLE performed by NINO ROCHA I at [facility] ENDOSCOPY PRO UPPER GI ENDOSCOPY, BIOPSY 04/22/2012 UPPER GASTROINTESTINAL ENDOSCOPY,WITH BIOPSY SINGLE OR MULTIPLE performed by NINO ROCHA I at [facility] ENDOSCOPY PRO UPPER GI ENDOSCOPY, BIOPSY 05/12/2013 UPPER GASTROINTESTINAL ENDOSCOPY,WITH BIOPSY SINGLE OR MULTIPLE performed by Nino Rocha MD at [facility] ENDOSCOPY PRO UPPER GI ENDOSCOPY, BIOPSY 10/20/2013 UPPER GASTROINTESTINAL ENDOSCOPY,WITH BIOPSY SINGLE OR MULTIPLE performed by Nino Rocha MD at [facility] ENDOSCOPY PRO UPPER GI ENDOSCOPY, BIOPSY N/A 06/29/2015 EGD WITH BIOPSY performed by Nino Rocha MD at [facility] ENDOSCOPY PRO UPPER GI ENDOSCOPY, DIAGNOSTIC N/A 08/15/2022 EGD, UPPER GI ENDOSCOPY performed by Bubba Wallace MD at [facility] ENDOSCOPY UPPER GI ENDOSCOPY, EXAM 02/13/2011 UPPER GI ENDOSCOPY performed by NINO ROCHA I at [facility] ENDOSCOPY UPPER GI ENDOSCOPY, EXAM 05/12/2013 UPPER GI ENDOSCOPY performed by Nino Rocha MD at [facility] ENDOSCOPY UPPER GI ENDOSCOPY, EXAM N/A 04/19/2015 UPPER GI ENDOSCOPY performed by Nino Rocha MD at [facility] ENDOSCOPY UPPER GI ENDOSCOPY, TUMOR ABLATN 04/22/2012 ENDOSCOPY, UPPER GI, W\ABLATION TUMOR\POLYP\LESION performed by NINO ROCHA I at [facility] ENDOSCOPY Family Hx: Family History Problem Relation Age of Onset Diabetes Neg Hx Social Hx: Social History Tobacco Use Smoking Status Former Years: 15 Types: Cigarettes Quit date: 1977 Years since quittin.3 Smokeless Tobacco Never Social History Substance and Sexual Activity Alcohol Use Not Currently Alcohol/week: 14.0 standard drinks of alcohol Types: 14 Glasses of wine per week Comment: 1 drink a day Objective: There were no vitals taken for this visit. GENERAL: Well appearing, appropriate NEUROVASCULAR: Sensation intact to light touch in the Right upper extremity. Warm and well perfusedhand. SKIN: No significant abrasions or lesions about the shoulder. MUSCULOSKELETAL: Right Shoulder Examination Visible abnormality: No Scapulothoracic Rhythm: Normal Rotator Cuff Atrophy: No Tenderness to palpation: No Palpable crepitus: Yes Range of motion Right Forward Elevation: 100, 110 passive with pain External Rotation: 10 without lag, 20 passive with crepitus Internal Rotation: Buttock Strength Testing: Abduction: 5-/5 External Rotation: 5-/5 Resisted Internal Rotation: 5-/5 Rotator Cuff Testing Empty Can/Lilly's: Negative Bear Hug: Negative Belly Press: Equivocal Biceps/Labrum Groove TTP: Negative Speeds: Negative Plaquemines's: Negative AC Joint TTP: Negative Cross-body: Negative Impingement Neer's: limited by ROM Hawkin's: limited by ROM Osteoarthritis: Chondral Shear Test: Positive Cervical Range of motion: Normal Questionnaires: 07/19/2022 General Health, Prior Treatments, PreExisting Condition, Health Habits, About You PROMIS-10 General Health Good PROMIS-10 Quality of Life Very Good PROMIS-10 Physical Health Good PROMIS-10 Mental Health Very Good PROMIS-10 Social Activity Very Good PROMIS-10 Everyday Activities Moderately PROMIS-10 Pain 4 PROMIS-10 Fatigue Moderate PROMIS-10 Social Roles Very Good PROMIS-10 Anxious or Depressed Never PROMIS PHYSICAL SCORE (range 16-68) 39.8 PROMIS MENTAL SCORE (range 21-68) 56 Treatments Tried Walking aids (e.g.cane, walker) KOOS JR Scores 50.01 TKA Grade 2 Alzheimers or dementia No Cirrohosis or liver disease No HIV/AIDS No Pain in more than one joint in legs Yes Back or neck pain No Heart attack No Heart failure No Unclog/bypass leg arteries No Stroke, blood clot, TIA No Asthma No Emphysema, chronic bronchities, or COPD No Stomach ulcers/peptic ulcer disease No Diabetes No Poor kidney function No Rheumatic condtions No Cancer Yes Cancer spread Yes Leukemia or polycythemia vera No Lymphoma No Weight (lbs) 180 Height (feet) 6 feet Height (Inches) 0 BMI 24.41 (Normal) Ever used alcoholic beverages Yes Alcohol frequency Daily or almost daily WHO - Alcohol Advice 6 (You are at risk of health and other problems from your current pattern of alcohol use.) Live Alone No Marital situation Combined Household Income $35,000 to less than $50,000 Frisian, , No, not Frisian// Race White Health Literacy Extremely Currently working No Not working because: Retired 07/19/2022 [facility] Response KOOS JR Scores 50.01 Diagnostic Studies: I personally reviewed images which demonstrate osteoarthritis of the right glenohumeral joint. There is mild arthritis of the AC joint. Assessment/Plan: Chidi is a 78 y.o. year old male with 1 year of atraumatic right shoulder pain. His exam and x-rays today demonstrate osteoarthritis of the glenohumeral joint. We had a long discussion regarding the natural history and treatment options for this condition. I discussed the arthritis ladder with the patient. Initial treatment options include rest, ice, heat, voltaren gel, and glenohumeral joint injection. We discussed shoulder replacement which is the only definitive treatment option for glenohumeral arthritis. I provided information surrounding the procedure itself as well as the recovery timeline. As patient has not yet tried injection, he would like to start with glenohumeral injection. I feel this is quite reasonable. I'll follow up with him by phone about 6-8 weeks after injection to assesshis condition. Follow Up: He will follow up about 6 weeks after injection. Questions solicited and answered. The patient verbalized understanding and agreement of the plan, he knows to contact us if they have any other questions or concerns. Marisa Rod PA-C Department of Orthopaedic Surgery [facility] The above documentation was partially completed using [employer] voice recognition software. documented in this encounter Plan of Treatment Upcoming Encounters Date Type Department Care Team (Latest Contact Info) Description 09/29/2024 4:30 PM EST Hospital Encounter [place] [address] Lizet Wilkes MD [facility] [place] [address] 09/29/2024 4:30 PM EST - 09/29/2024 5:00 PM EST Surgery [place] [address] Lizet Wilkes MD [facility] [place] [address] EGD, UPPER GI ENDOSCOPY (WRVU 2.09) 11/09/2024 10:00 AM EST Laboratory Appointment Lab at [facility] Hematology Oncology [address] [place] [phone] 11/09/2024 11:00 AM EST Office Visit Hematology [place] [address] Faith Caba MD [facility] DR HEMATOLOGY [place] [address] 11/09/2024 12:00 PM EST Appointment Hematology [place] [address] Scheduled Procedures Name Priority Associated Diagnoses Date/Ti me EGD, UPPER GI ENDOSCOPY (WRVU 2.09) Gastroesophageal reflux disease with esophagitis, unspecified whether hemorrhage 09/29/2024 4:30 PM EST documented as of this encounter Goals Goal Patient Goal Type Associated Problems Recent Progress Patient-Stated? Author Home Medication Compliance and Understanding Patient Facing Action Plan Curly Nicolas, [facility] Note: The patient? s goal is to continue positive results of oral chemotherapy by maintaining improved labs PSA or stable scans in clinic for the upcoming year. documented as of this encounter Results * XR Fluoro Guided Joint Injection Large Right (02/07/2024 2:35 PM EDT) WORKSTATION ID [id number] RAD Anatomical Region Laterality Modality Right Radio Fluoroscop y Impressions 02/07/2024 3:39 PM EDT Technically successful right glenohumeral joint injection under fluoroscopy. Service Provider: ??Doris Cordova PA-C Attending of Record: Dr. Ann Evans MD Preliminary report signed by: ROSA Ku at 02/07/2024 3:20 PM I have personally reviewed the image(s) and the provider's interpretation and agree with the findings, Ann Evans MD at 02/07/2024 3:39 PM Thank you for letting us participate in the care of this patient. ??If you are a health care provider and have any questions regarding this report, please contact the number below. ??For patients who have questions please contact the health out of school hours care worker that requested your imaging first. ? Narrative 02/07/2024 3:39 PM EDT RIGHT GLENOHUMERAL JOINT INJECTION UNDER FLUOROSCOPY CLINICAL HISTORY: right shoulder oa TECHNIQUE: After an extensive conversation with the patient regarding risks and benefits, including but not limited to: infection, bleeding, an allergic reaction to injected medications, steroid flare, and pain/discomfort due to the procedure, oral and written consent were obtained.?A pre- procedural time-out was performed, including review of the patient's relevant electronic medical record and allergies, as per [facility] protocol. The patient was placed supine with the right arm in external rotation on the fluoroscopic table. ??The skin over the anterior right glenohumeral joint was prepped and draped in the usual sterile manner. 1% Lidocaine was used to achieve local anesthesia. Under fluoroscopic guidance, 22-gauge 1.5 inch needle was advanced into the joint space. ??A small amount of Omnipaque 300 was injected to document needle placement. ??A mixture of lidocaine, ropivacaine, and methyprednisolone was then injected. All needles were removed at the end of the procedure. A dry sterile dressing was placed over the injection site. FINDINGS: 1. ??Small amount of injected Omnipaque 300 in the right glenohumeral joint space. 2. ??PAIN SCORE: ??Before: 01/07. ??After: 0. 3. Fluoroscopy time: 0.08 minutes. 4. Medications: ?Subcutaneous: ??Lidocaine 1% - <5 ml. ?Intra-articular: ?Lidocaine 1% - 1 mL. ??Ropivacaine HCL ??0.5% - 4 mL. ??Methylprednisolone - 40 mg. 5. Images: 4 COMPLICATIONS: ??None immediate. POST-PROCEDURE CARE: Information regarding monitor of infection, post- procedural pain and management of steroid flare were reviewed with and provided to the patient. Procedure Note Ann Evans MD - 02/07/2024 RIGHT GLENOHUMERAL JOINT INJECTION UNDER FLUOROSCOPY CLINICAL HISTORY: right shoulder oa TECHNIQUE: After an extensive conversation with the patient regardingrisks and benefits, including but not limited to: infection, bleeding, an allergic reaction to injected medications, steroid flare, and pain/discomfort dueto the procedure, oral and written consent were obtained.?A pre- proceduraltime-out was performed, including review of the patient's relevant electronicmedical record and allergies, as per [facility] protocol. The patient was placed supine with the right arm in external rotation onthe fluoroscopic table. The skin over the anterior right glenohumeral jointwas prepped and draped in the usual sterile manner. 1% Lidocaine was used toachieve local anesthesia. Under fluoroscopic guidance, 22-gauge 1.5 inch needlewas advanced into the joint space. A small amount of Omnipaque 300 wasinjected to document needle placement. A mixture of lidocaine, ropivacaine, and methyprednisolone was then injected. All needles were removed at the endof the procedure. A dry sterile dressing was placed over the injection site. FINDINGS: 1. Small amount of injected Omnipaque 300 in the right glenohumeraljoint space. 2. PAIN SCORE: Before: 4/10. After: 0/10. 3. Fluoroscopy time: 0.08 minutes. 4. Medications: Subcutaneous: Lidocaine 1% - <5 ml. Intra-articular: Lidocaine 1% - 1 mL. Ropivacaine HCL 0.5% - 4 mL. Methylprednisolone - 40 mg. 5. Images: 4 COMPLICATIONS: None immediate. POST-PROCEDURE CARE: Information regarding monitor of infection, post- procedural pain and management of steroid flare were reviewed with andprovided to the patient. IMPRESSION Technically successful right glenohumeral joint injection under fluoroscopy. Service Provider: Doris Cordova PA-C Attending of Record: Dr. Ann Evans MD Preliminary report signed by: ROSA Ku at 02/07/2024 3:20 PM I have personally reviewed the image(s) and the provider's interpretationand agree with the findings, Ann Evans MD at 02/07/2024 3:39 PM Thank you for letting us participate in the care of this patient. If youare a health care provider and have any questions regarding this report,please contact the number below. For patients who have questions please contactthe health out of school hours care worker that requested your imaging first. Lawanda Swartz MD IMG FLUORO ORDERABLE S documented in this encounter Visit Diagnoses Diagnosis Osteoarthritis of right shoulder, unspecified osteoarthritis type Osteoarthritis of right shoulder, unspecified osteoarthritis type Gastroesophageal reflux disease with esophagitis, unspecified whether hemorrhage documented in this encounter Care Teams Shopper'S Aide Relationship Specialty Start Date End Date Kennedi Shaver MD [address] [facility] [address] [place] [address] PCP - General Family Medicine 08/02/20 06/24/24 documented as of this encounter
--- OUTSIDE RECORDS SUMMARY | 2024-09-11 15:19 | XMS_ITS | Encounter Summary ---
Author Organization [facility] Address [facility] [place] [address] Care Team Providers Care School Inspector Name Role Phone Kennedi Shaver MD Primary Care Provider [phone] Encounter Details Date Type Department Care Team (Late st Contact Info) Description 03/17/2024 2:30 PM EDT - 03/17/2024 3:45 PM EDT Surgery [place] [address] Marina Gardner MD [facility] DR [place] [address] EGD, UPPER GI ENDOSCOPY (WRVU 2.09) Social History Tobacco Use Types Packs/Day Years Used Date Smoking Tobacco: Former Cigarettes 1 - 1977 Smokeless Tobacco: Never Tobacco Cessation:Counseling Given: Not Answered Alcohol Use Standard Drinks/Week Comments Yes 14 (1 standard drink = 0.6 oz pu re alcohol) 1 drink a day [facility] Inpatient Questions Answer Date Recorded [...] Sign Reading Time Taken Comments Blood Pressure 152/76 03/17/2024 3:45 PM EDT Pulse 55 03/17/2024 3:45 PM EDT Temperature 36.7 ??C (98 ??F) 03/17/2024 2:08 PM EDT Respiratory Rate 15 03/17/2024 3:45 PM EDT Oxygen Saturation 99% 03/17/2024 3:45 PM EDT Inhaled Oxygen Concentration - - [...] the day after the test, use an wmsg-pza-yicnsws spray or lozenges to numbyour throat. Warm [...] occurs, please contact your doctor. Please call [phone] before 8pm Mon-Fri with problems, questions, or concerns. If you call after 8pm or on weekends, call the Hospital at [phone] and ask for the [employer] marine engineering consultant and the crusher machine operator will contact that person for [...] more? You can view health information on [employer], your personal patient account. Log in or sign up today. Content Version: 12.2 ?? [id number] [employer]. Care instructions adapted under license by [facility]. If you have questions about a medical condition or this instruction, always ask your healthcare professional. [employer] disclaims any warranty or liability for your [...] 4:30 PM EST Hospital Encounter [place] [phone] Lizet Wilkes MD [facility] [place] [address] 09/29/2024 4:30 PM EST - 09/29/2024 5:00 PM EST Surgery [place] [phone] Lizet Wilkes MD [facility] [place] [address] EGD, UPPER GI ENDOSCOPY (WRVU 2.09) 11/09/2024 10:00 AM EST Laboratory Appointment Lab at [facility] Hematology Oncology [address] [place] [phone] 11/09/2024 11:00 AM EST Office Visit Hematology [place] [phone] Faith Caba MD [facility] [place] [address] 11/09/2024 12:00 PM EST Appointment Hematology [place] [phone] Scheduled Procedures Name Priority Associated Diagnoses Date/Ti ia EGD, UPPER GI ENDOSCOPY (WRVU 2.09) Gastroesophageal reflux disease with esophagitis, unspecified whether hemorrhage 09/29/2024 4:30 PM EST documented as of this encounter Goals Goal Patient Goal Type Associated Problems Recent Progress Patient-Stated? Author DH Piggott Medication Compliance and Understanding Patient Facing Action Plan Curly Nicolas, [facility] Note: The patient? s goal [...] 3:09 PM EDT Colonoscopy, Remv Lesn, Snare ([id number]) 03/17/2024 2:46 PM EDT Gastroesophageal reflux disease, unspecified whether esophagitis present Upper Gi Endoscopy, Biopsy ([id number]) 03/17/2024 2:46 PM EDT Gastroesophageal reflux disease, unspecified whether esophagitis present Colonoscopy, Diagnostic ([id number]) 03/17/2024 2:46 PM EDT Gastroesophageal reflux disease, unspecified whether esophagitis present Upper GI Endoscopy, Diagnostic ([id number]) 03/17/2024 2:46 PM EDT Gastroesophageal reflux disease, unspecified whether esophagitis present COLONOSCOPY Routine 03/17/2024 2:31 PM EDT documented in this encounter Results * Specimen to Pathology (03/17/2024 4:18 PM EDT) AP Specimen 03/17/2024 4:18 PM EDT 03/17/2024 4:18 PM EDT Narrative [facility] - 03/17/2024 4:18 PM EDT Specimen requisition ordered. ??Separate Pathology report to follow Marina Gardner MD PATHOLOGY/CYTOLOGY O RDERABLES [facility] [place] [address] * Specimen to Pathology (03/17/2024 4:18 PM EDT) AP Specimen 03/17/2024 4:18 PM EDT 03/17/2024 4:18 PM EDT Narrative [facility] - 03/17/2024 4:18 PM EDT Specimen requisition ordered. ??Separate Pathology report to follow L Santos Gardner MD PATHOLOGY/CYTOLOGY O LEE ANN Performing Organization Address City/[facility]/[place] [address] * Specimen to Pathology (03/17/2024 4:18 PM EDT) AP Specimen 03/17/2024 4:18 PM EDT 03/17/2024 4:18 PM EDT Narrative [facility] - 03/17/2024 4:18 PM EDT Specimen requisition ordered. ??Separate Pathology report to follow L Santos Gardner MD PATHOLOGY/CYTOLOGY O LEE ANN Performing Organization Address City/[facility]/[place] [address] * Specimen to Pathology (03/17/2024 4:18 PM EDT) AP Specimen 03/17/2024 4:18 PM EDT 03/17/2024 4:18 PM EDT Narrative [facility] - 03/17/2024 4:18 PM EDT Specimen requisition ordered. ??Separate Pathology report to follow L Santos Gardner MD PATHOLOGY/CYTOLOGY O LEE ANN Performing Organization Address [facility]/[place] [address] * Specimen to Pathology (03/17/2024 4:18 PM EDT) AP Specimen 03/17/2024 4:18 PM EDT 03/17/2024 4:18 PM EDT Narrative [facility] - 03/17/2024 4:18 PM EDT Specimen requisition ordered. ??Separate Pathology report to follow L Santos Gardner MD PATHOLOGY/CYTOLOGY Jessica NANCE [facility] [place] [address] * Surgical Pathology Report (03/17/2024 3:09 PM EDT) Final Diagnosis [id number] ? Location: 4T; EA06; A The signing [...] [facility] Dept[facility] of Pathology, [place] [address] Gate Operator: Mely Ayala MD, FCAP, ??CLIA Certificate: [id number] ADDITIONAL STUDIES Immunohistochemistry Studies: Formalin-fixed, paraffin-embedded tissue [...] 0.3 to 0.5 cm. Tissue Description: Soft, vital-pink tissues. Sections/Processing: Submitted in toto ??in 1 cassette labeled A1. B - Labeled/Fixative: Esophageal biopsies, formalin. Quantity/Size: Multiple, ranging from 0.2 to 0.5 cm. Tissue Description: Soft, vital-pink tissues. Sections/Processing: Submitted in toto ??in 2 cassettes labeled B1-B2. C - Labeled/Fixative: Ascending colon polyps 10 mm, 6 mm, formalin. Quantity/Size: Multiple, ranging from 0.4 x 0.3 x 0.1 cm to 0.9 x 0.7 x 0.2 cm. Tissue Description: Vital-pink polypoid tissue fragments. Sections/Processing: in 4 cassettes [...] x 0.5 x 0.2 cm. Tissue Description: Vital-pink polypoid tissue fragments. Sections/Processing: in 2 cassettes as follows: ?D1: ??Single tissue, inked quadrisected and entirely submitted ?D2: ??Remaining tissue fragments submitted in toto E - Labeled/Fixative: Sigmoid colon polyp 4 mm, formalin. Quantity/Size: Single, 0.8 x 0.4 x 0.1 cm. Tissue Description: Vital-pink polypoid tissue. Sections/Processing: Inked, trisected and entirely submitted in 1 cassette labeled E1. ??SM 03/30/2024 3:50 PM EDT [facility] GI Biopsy 03/17/2024 3:09 PM EDT 03/17/2024 3:09 PM EDT GI Biopsy 03/17/2024 3:09 PM EDT 03/17/2024 3:09 PM EDT GI Biopsy 03/17/2024 3:09 PM EDT 03/17/2024 3:09 PM EDT GI Biopsy 03/17/2024 3:09 PM EDT 03/17/2024 3:09 PM EDT GI Biopsy 03/17/2024 3:09 PM EDT 03/17/2024 3:09 PM EDT L Santos Gardner MD PATHOLOGY/CYTOLOGY O RDERABLES [facility] [place] [address] * COLONOSCOPY (03/17/2024 2:31 PM EDT) COLONOSCOPY [facility] Procedure Date: 03/17/2024 2:31 PM ? Patient Name: Chidi Carbone ? Date of : 1945 ? Age: 78 ? Order #: [id number] ? Instrument Name: [id number] ? Procedure: ? Colonoscopy Indications: ? History of known polyp not removed ? on prior exam. Providers: ? Malia Gardner MD, Sulaiman Guadarrama ? Isaac Mota Referring : ? Medicines: [...] preparation was evaluated ? using the BBPS ([place] Bowel ? Preparation Scale) with scores of: [...] weeks, please call our office ? at [phone]. ? Attending Participation: ? I personally performed the entire procedure. ? __ L. Santos Gardner MD 03/17/2024 4:31:15 PM Number of Addenda: 0 Note Initiated On: 03/17/2024 2:31 PM PROVATION 03/17/2024 2:31 PM EDT Unknown GENERAL SURGICAL ORD ERABLES PROVATION documented in this encounter Visit Diagnoses Diagnosis Gastroesophageal reflux disease, unspecified whether esophagitis present Gastroesophageal reflux disease with esophagitis, unspecified whether hemorrhage documented in this encounter Administered Medications Inactive Administered Medications - up to 3 most recent administrations Medication Order MAR Action Action Date Dose Rate Site benzocaine (Hurricane One) 20% spray (restricted to salome-procedural use) PRN, Starting on Sat03/17/24 at 1451, Until Sat03/17/24 at 1910, Intra-Operative (Intra-Procedure) Given 03/17/2024 2:51 PM EDT 1 spray fentaNYL (pf) (50 mcg/mL) multi-dose injection PRN, Starting on Sat03/17/24 at 1451, Until Sat03/17/24 at 1910, Intra-Operative (Intra-Procedure), Routine Given 03/17/2024 3:41 PM EDT 50 mcg Given 03/17/2024 3:36 PM EDT 50 mcg Given 03/17/2024 3:19 PM EDT 50 mcg lactated ringers infusion 100 mL/hr, Intravenous, CONTINUOUS, Starting on Sat03/17/24 at 1430, Until Sat03/17/24 at 1659, Endoscopy (Day of Procedure) New Bag 03/17/2024 2:32 PM EDT 100 mL/hr 100 mL/hr midazolam (pf) (Versed) (1 mg/mL) multi-dose injection PRN, Starting on Sat03/17/24 at 1451, Until Sat03/17/24 at 1910, Intra-Operative (Intra-Procedure), Routine Given 03/17/2024 3:24 PM EDT 1 mg Given 03/17/2024 3:08 PM EDT 1 mg Given 03/17/2024 3:03 PM EDT 1 mg documented in this encounter Active and Recently Administered Medications Times are shown in EDT. Continuous Medication Order 03/15/2024 03/16/2024 03/17/2024 lactated ringers infusion (CANCELED) 100 mL/hr, Intravenous, CONTINUOUS, Starting on Sat03/17/24 at 1430, Until Sat03/17/24 at 1659, Endoscopy (Day of Procedure) 1432 (New Bag - Prov ider: Sally Hernandez LPN) PRN Medication Order 03/15/2024 03/16/2024 03/17/2024 benzocaine (Hurricane One) 20% spray (restricted to salome-procedural use) (CANCELED) PRN, Starting on Sat03/17/24 at 1451, Until Sat03/17/24 at 1910, Intra-Operative (Intra-Procedure) 1451 (Given - Provid er: Sulaiman Mota RN) fentaNYL (pf) (50 mcg/mL) multi-dose injection (CANCELED) PRN, Starting on Sat03/17/24 at 1451, Until Sat03/17/24 at 1910, Intra-Operative (Intra-Procedure), Routine 1451 (Given - Provid er: Sulaiman Mota RN)1454 (Given - Provider: Sulaiman Mota RN)1503 (Given - Provider: Sulaiman Mota RN)1519 (Given - Provider: Sulaiman Mota RN)1536 (Given - Provider: Sulaiman Mota RN)1541 (Given - Provider: Sulaiman Mota RN) midazolam (pf) (Versed) (1 mg/mL) multi-dose injection (CANCELED) PRN, Starting on Sat03/17/24 at 1451, Until Sat03/17/24 at 1910, Intra-Operative (Intra-Procedure), Routine 1451 (Given - Provid er: Sulaiman Mota RN)1454 (Given - Provider: Sulaiman Mota RN)1457 (Given - Provider: Sulaiman Mota RN)1503 (Given - Provider: Sulaiman Mota RN)1508 (Given - Provider: Sulaiman Mota RN)1524 (Given - Provider: Sulaiman Moat RN) documented in this encounter Care Teams School Inspector Relationship Specialty Start Date End Date Kennedi Shaver MD [address] [place] [address] PCP - General Family Medicine 08/02/20 06/24/24 documented as of this encounter
--- OUTSIDE RECORDS SUMMARY | 2024-09-11 15:19 | XMS_ITS | Encounter Summary ---
Author Organization [facility] [place] [address] Care Team Providers Care Glove Operator Name Role Phone Kennedi Shaver MD Primary Care Provider [phone] Encounter Details Date Type Department Care Team (Latest Contact Info) Description 01/28/2024 Travel Social History Tobacco Use Types Packs/Day [...] (Latest Contact Info) Description 09/29/2024 4:30 PM [facility] Hospital En[place] [phone] Lizet Wilkes MD [facility] [place] [address] 09/29/2024 4:30 PM EST - 09/29/2024 5:00 PM EST [place] [phone] Lizet Wilkes MD [facility] [place] [address] EGD, UPPER GI ENDOSCOPY (WRVU 2.09) 11/09/2024 10:00 AM EST Laboratory Appointment Lab at [facility] Hematology Oncology [address] [place] [phone] 11/09/2024 11:00 AM EST Office Visit [place]ology [place] [phone] Faith Caba MD [facility] DR [place] [address] 11/09/2024 12:00 PM EST Appointment Hematology [place] [phone] Scheduled Procedures Name Priority Associated Diagnoses Date/Ti me EGD, UPPER GI ENDOSCOPY (WRVU 2.09) Gastroesophageal reflux disease with esophagitis, unspecified whether hemorrhage 09/29/2024 4:30 PM EST documented as of this encounter Goals Goal Patient Goal Type Associated Problems Recent Progress Patient-Stated? Author [facility] Medication Compliance and Understanding Patient Facing Action Plan Curly Nicolas, [facility] Note: The patient? s goal is to continue positive results of oral chemotherapy by maintaining improved labs PSA or stable scans in clinic for the upcoming year. documented as of this encounter Visit Diagnoses Not on filedocumented in this encounter Care Teams Glove Operator Relationship Specialty Start Date End Date Kennedi Shaver MD [facility] [address] [place] [address] PCP - General Family Medicine 08/02/20 06/24/24 documented as of this encounter
--- OUTSIDE RECORDS SUMMARY | 2024-09-11 15:19 | XMS_ITS | Encounter Summary ---
Author Organization [facility] Address [facility] [place] [address] Care Team Providers Care Airport Operations Officer Name Role Phone Kennedi Shaver MD Primary Care Provider [phone] Reason for Visit * Reason Onset Date Comments Appointment 01/17/2024 Encounter Details Date Type Department Care Team (Late st Contact Info) Description 01/17/2024 Telephone [place] [phone] Marisa Rod PA [facility] [place] [address] Appointment Social History Tobacco Use Types Packs/Day Years Used Date Smoking Tobacco: Former Cigarettes 1977 Smokeless Tobacco: Never Alcohol Use Standard Drinks/Week Comments Not Currently 14 (1 standard drink = 0.6 oz pu re alcohol) 1 drink a day [facility] Inpatient Questions Answer Date Recorded Does Anyone [...] encounter Miscellaneous Notes * Telephone Encounter - Maggy Aguila - 01/17/2024 3:56 PM EDT Answered the safety questions for IMAGE GUIDED INJECTION RIGHT SHOULDER and sent for batch. documented in this encounter Plan of Treatment Upcoming Encounters Date Type Department Care Team (Latest Contact Info) Description 09/29/2024 4:30 PM EST Hospital Encounter Gastroenterology at [place] [phone] Lizet Wilkes MD [facility] [place] [address] 09/29/2024 4:30 PM EST - 09/29/2024 5:00 PM EST [place] [phone] Lizet Wilkes MD [facility] [place] [address] EGD, UPPER GI ENDOSCOPY (WRVU 2.09) 11/09/2024 10:00 AM EST Laboratory Appointment Lab at [facility] Hematology Oncology [address] [place] [phone] 11/09/2024 11:00 AM EST Office Visit Hematology [place] [phone] Faith Caba MD [facility] [place] [address] 11/09/2024 12:00 PM EST Appointment Hematology [place] [phone] Scheduled Procedures Name Priority Associated Diagnoses Date/Ti me EGD, UPPER GI ENDOSCOPY (WRVU 2.09) Gastroesophageal reflux disease with esophagitis, unspecified whether hemorrhage 09/29/2024 4:30 PM EST documented as of this encounter Goals Goal Patient Goal Type Associated Problems Recent Progress Patient-Stated? Author [facility] Home Medication Compliance and Understanding Patient Facing Action Plan Curly Nicolas, [facility] Note: The patient? s goal is to continue positive results of oral chemotherapy by maintaining improved labs PSA or stable scans in clinic for the upcoming year. documented as of this encounter Visit Diagnoses Not on filedocumented in this encounter Care Teams Airport Operations Officer Relationship Specialty Start Date End Date Kennedi Shaver MD [address] [facility] [address] [place] [address] PCP - General Family Medicine 08/02/20 06/24/24 documented as of this encounter
--- OUTSIDE RECORDS SUMMARY | 2024-09-11 15:19 | XMS_ITS | Encounter Summary ---
Author Organization [facility] Address [facility] [place] [address] Care Team Providers Care Edge Sawyer Name Role Phone Kennedi Shaver MD Primary Care Provider [phone] Reason for Referral * Diagnostic Test (Routine) - Closed Specialty Diagnoses / Procedures Referred By Contac t Referred To Contact Radiology Diagnoses Osteoarthritis of right shoulder, unspecified osteoarthritis type Procedures XR Fluoro Guided Joint Injection Large Right Image Guided MSK Joint/Tendon Injection/Aspiration (Generic) Marisa Rod PA [facility] [place] [address] [facility] Rad Xray [address] [place] [address] [place] [address] Referral ID Status Reason Start Date Expiration Date V isits Requested Visits Authorized [id number] Closed Specialty Service Requested 01/17/2024 07/18/2025 1 1 Reason for Visit * Diagnostic Test (Routine) - Closed Specialty Diagnoses / Procedures Referred By Contac t Referred To Contact Radiology Diagnoses Osteoarthritis of right shoulder, unspecified osteoarthritis type Procedures XR Fluoro Guided Joint Injection Large Right Image Guided MSK Joint/Tendon Injection/Aspiration (Generic) Marisa Rod PA [facility] [place] [address] [facility] Rad Xray [address] [place] [address] [place] [address] Referral ID Status Reason Start Date Expiration Date V isits Requested Visits Authorized [id number] Closed Specialty Service Requested 01/17/2024 07/18/2025 1 1 Encounter Details Date Type Department Care Team (Latest Contact Info) Description 02/07/2024 1:44 PM EDT - 02/07/2024 11:59 PM EDT Hospital Encounter XRay at [address] [place] [address] Lawanda Swartz MD [facility] [place] [address] Osteoarthritis of right shoulder, unspecified osteoarthritis type Discharge Disposition: Home Social History Tobacco Use Types Packs/Day Years Used Date Smoking Tobacco: Former Cigarettes 1 1977 Smokeless Tobacco: Never Alcohol Use Standard Drinks/Week Comments Not Currently 14 (1 standard drink = 0.6 oz pu re alcohol) 1 drink a day [facility] Inpatient Questions Answer Date Recorded Does Anyone [...] on file documented as of this encounter Discharge Instructions * Patient Instructions* Sulaiman Zavala - 02/07/2024 2:25 PM EDT Post Injection Patient Instructions You received an injection by Freya Cordova in the diagnostic section of radiology. Procedure: Right shoulder In the days following the injection: Low intensity movement and exercise of the affected joint. Avoid movements that worsen pain. No submersion of the injection site in water for 48 hours (pool/brito/hot tub, etc.), but you may shower as usual. Keep the injection site dry, clean and covered for 48 hours. If the dressing falls off, you may replace it with a Band-aid. During the first 48 hours following the injection you may experience mild discomfort at the injection site. If you experience pain or discomfort in the affected area, do the following: Apply cold compress to the affected area. No submersion of joint in water for 48-72 hours however showering is okay. If allowed by your physician, take an anti-inflammatory medication such as ibuprofen (example: Advil), Acetaminophen (example: Tylenol) or Aspirin. IMPORTANT The risk of infection exists whenever the skin is punctured. The risk can be minimized by keeping the injection site clean. However, be aware of the following signs of an infection: Redness and swelling at the injection site. Increased pain. Fever and/or chills. Decreased range of motion in the joint near the injection site. When to call the Radiology Department: Please call with any questions or concerns. If it is during regular office hours, please call [phone]. If it is after regular office hours, or on weekends or holidays, please call [phone] and ask to speak to the Senior Product Marketing Manager personal computer network engineer. Revised on 10/23/22 documented in this encounter Medications at Time [...] 1 tablet by mouth daily. 30 tablet 09/25/2023 08/03/2024 documented as of this encounter Plan of Treatment Upcoming Encounters Date Type Department Care Team (Latest Contact Info) Description 09/29/2024 4:30 PM EST Hospital Encounter [place] [phone] Lizet Wilkes MD [facility] [place] [address] 09/29/2024 4:30 PM EST - 09/29/2024 5:00 PM EST [place] [phone] Lizet Wilkes MD [facility] [place] [address] EGD, UPPER GI ENDOSCOPY (WRVU 2.09) 11/09/2024 10:00 AM EST Laboratory Appointment Lab at [facility] Hematology Oncology [address] [place] [phone] 11/09/2024 11:00 AM EST Office Visit Hematology [place] [phone] Faith Caba MD [facility] [place] [address] 11/09/2024 12:00 PM EST Appointment Hematology [place] [phone] Scheduled Procedures Name Priority Associated Diagnoses Date/Ti me EGD, UPPER GI ENDOSCOPY (WRVU 2.09) Gastroesophageal reflux disease with esophagitis, unspecified whether hemorrhage 09/29/2024 4:30 PM EST documented as of this encounter Goals Goal Patient Goal Type Associated Problems Recent Progress Patient-Stated? Author Home Medication Compliance and Understanding Patient Facing Action Plan Curly Nicolas, [facility] Note: The patient? s goal is to continue positive results of oral chemotherapy by maintaining improved labs PSA or stable scans in clinic for the upcoming year. documented as of this encounter Procedures Procedure Name Priority Date/Time Associated Diagnosis Comments XR FLUORO INJECTION DRAINAGE JOINT LG RIGHT Routine 02/07/2024 2:35 PM EDT Osteoarthritis of right shoulder, unspecified osteoarthritis type documented in this encounter Results * XR Fluoro Guided Joint Injection Large Right (02/07/2024 2:35 PM EDT) WORKSTATION ID [id number] RAD Anatomical Region Laterality Modality Right Radio [...] who have questions please contact the health patient care that requested your imaging first. ? Narrative [...] electronic medical record and allergies, as per [facility] protocol. The patient was placed supine with [...] relevant electronicmedical record and allergies, as per [facility] protocol. The patient was placed supine with [...] Cordova PA-C Attending of Record: Dr. Ann Eavns MD Preliminary report signed by: ROSA Ku [...] patients who have questions please contactthe health patient care that requested your imaging first. Lawanda Swartz MD IMG FLUORO ORDERABLE S documented in this encounter Visit Diagnoses Diagnosis Osteoarthritis of right shoulder, unspecified osteoarthritis type Gastroesophageal reflux disease with esophagitis, unspecified whether hemorrhage documented in this encounter Administered Medications Inactive Administered Medications - up to 3 most recent administrations Medication Order MAR Action Action Date Dose Rate Site iohexoL (Omnipaque) (300 mg/mL) solution 0-10 mL 0-10 mL, Intra-articular, ONCE, 1 dose, On Sat02/07/24 at 1445, Warning Vesicant/Irritant Medication , Radiology Contrast, Routine Given 02/07/2024 2:45 PM EDT 1 mL lidocaine (Xylocaine) 1% (10 mg/mL) injection 0-100 mg 0-100 mg (0-10 mL), Intra-articular, ONCE, 1 dose, On Sat02/07/24 at 1445, Radiology Protocol Medication, Routine Given 02/07/2024 2:45 PM EDT 1 mL methylPREDNISolone acetate (DEPO-Medrol) (40 mg/mL) injection 0-160 mg 0-160 mg, Intra-articular, ONCE, 1 dose, On Sat02/07/24 at 1445, Radiology Protocol Medication, Routine Given 02/07/2024 2:45 PM EDT 40 mg ROPivacaine (PF) (Naropin) 0.5% (5 mg/mL) injection 0-50 mg 0-50 mg (0-10 mL), Intra-articular, ONCE, 1 dose, On Sat02/07/24 at 1445, Radiology Protocol Medication, Routine Given 02/07/2024 2:45 PM EDT 4 mLs documented in this encounter Care Teams Edge Sawyer Relationship Specialty Start Date End Date Kennedi Shaver MD [address] [place] [address] PCP - General Family Medicine 08/02/20 06/24/24 documented as of this encounter
--- OUTSIDE RECORDS SUMMARY | 2024-09-11 15:19 | XMS_ITS | Encounter Summary ---
Author Organization [facility] [place] [address] Care Team Providers Care Tie Up Worker Name Role Phone Kennedi Shaver MD Primary Care Provider [phone] Encounter Details Date Type Department Care Team (Late st Contact Info) Description 02/19/2024 Specialty [place] [address] Radha Larson [facility] Social History Tobacco Use Types Packs/Day Years Used Date Smoking Tobacco: Former Cigarettes 1977 Smokeless Tobacco: Never Alcohol Use Standard Drinks/Week Comments Not Currently 14 (1 standard drink = 0.6 oz pu re alcohol) 1 drink a day [facility] Inpatient Questions Answer Date Recorded Does Anyone [...] this encounter Progress Notes * Radha Larson [facility] - 02/19/2024 1:02 PM EDT Specialty Pharmacy Consultation; Radha Larson [facility] Comprehensive Medication Management (CMM): Specialty Consult, Intervention Chidi Carbone Diagnosis: Metastatic Prostate Cancer Contact in person or via telephone: telephone Chidi Carbone is a 78 y.o. (1945) male who was contacted in regard to specialty medication intervention. Spoke with patient regarding Abiraterone Acetate. Medication Therapy Recommendations Neoplasm of prostate, 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 Current Medication: abiraterone (Zytiga) 500 mg tablet Rationale: Cannot swallow/administer medication - Adherence Recommendation: Change Medication - Zytiga 250 mg Tablet - uncoated tablets Status: Contact Provider - Awaiting Response Note: Chidi is having difficulty with swallowing the Zytiga 500 mg tablets, which only come as film-coated tablets. Chidi does not have difficulty with swallowing his other medications and does notbelieve his difficulty comes from tablet size. He believes the Zytiga 500 mg tablet is difficult toswallow because of the coating around the outside of the medication. Chidi may benefit from an uncoated formulation -- either the Zytiga 250 mg tablets, abiraterone generic 250 mg tablets, or abiraterone generic 500 mg tablets. The 250 mg tablets are 4 mm smaller than the 500 mg tablet formulations. Radha Larson Yan 02/19/24 1:18 PM documented in this encounter Plan of Treatment Upcoming Encounters Date Type Department Care Team (Latest Contact Info) Description 09/29/2024 4:30 PM EST Hospital Encounter [place] [phone] Lizet Wilkes MD [facility] [place] [address] 09/29/2024 4:30 PM EST - 09/29/2024 5:00 PM EST [place] [phone] Lizet Wilkes MD [facility] [place] [address] EGD, UPPER GI ENDOSCOPY (WRVU 2.09) 11/09/2024 10:00 AM EST Laboratory Appointment Lab at [facility] Hematology Oncology [address] [place] [phone] 11/09/2024 11:00 AM EST Office Visit Hematology [place] [phone] Faith Caba MD [facility] DR [place] [address] 11/09/2024 12:00 PM EST Appointment Hematology [place] [phone] Scheduled Procedures Name Priority Associated Diagnoses Date/Ti me EGD, UPPER GI ENDOSCOPY (WRVU 2.09) Gastroesophageal reflux disease with esophagitis, unspecified whether hemorrhage 09/29/2024 4:30 PM EST documented as of this encounter Goals Goal Patient Goal Type Associated Problems Recent Progress Patient-Stated? Author DH Home Medication Compliance and Understanding Patient Facing Action Plan Curly Nicolas, [facility] Note: The patient? s goal [...] hemorrhage documented in this encounter Care Teams Tie Up Worker Relationship Specialty Start Date End Date Kennedi Shaver MD [employer] [address] [place] [address] PCP - General Family Medicine 08/02/20 06/24/24 documented as of this encounter
--- OUTSIDE RECORDS SUMMARY | 2024-09-11 15:19 | XMS_ITS | Encounter Summary ---
Author Organization [facility] [place] [address] Care Team Providers Care Rubber And Plastics Worker Name Role Phone Kennedi Shaver MD Primary Care Provider [phone] Reason for Visit * Reason Comments Follow-up Encounter Details Date Type Department Care Team (Late st Contact Info) Description 10/29/2023 11:00 AM EST Office Visit Hematology [place] [address] Faith Caba MD [facility] DR [place]AT[place] [address] Neoplasm of prostate, 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 Social History Tobacco Use Types Packs/Day Years Used Date Smoking Tobacco: Former Cigarettes 1977 Smokeless Tobacco: Never Alcohol Use Standard Drinks/Week Comments Not Currently 14 (1 standard drink = 0.6 oz pu re alcohol) 1 drink a day [facility] Inpatient Questions Answer Date Recorded Does Anyone Try to Keep You From Having Contact with Others or Doing Things Outside Your Home? no 12/19/2022 Feels Threatened by Someone Not on file 03/2 10/2022 Feels Unsafe at Home Not on file 12/19/2022 Physical Signs of Abuse Present Not on file 12/19/2022 Sex and Gender Information Value Date Recorded Sex Assigned at Not on file Gender Identity Not on file Sexual Orientation Not on file documented as of this encounter Last Filed Vital Signs Vital Sign Reading Time Taken Comments Blood Pressure 151/63 10/29/2023 11:24 AM EST Pulse 86 10/29/2023 11:24 AM EST Temperature 36.1 ??C (97 ??F) 10/29/2023 11: 24 AM EST Respiratory Rate 13 10/29/2023 11:2 4 AM EST Oxygen Saturation 97% 10/29/2023 11: 24 AM EST Inhaled Oxygen Concentration - - Weight 80.6 kg (177 lb 11.1 oz) 024 11:24 AM EST with shoes Height 180.3 cm (5' 10.98) 10/29/2023 11:24 AM EST with shoes Body Mass Index 24.79 10/29/2023 11:24 AM EST documented in this encounter Progress Notes * Faith Caba MD - 10/29/2023 11:00 AM EST Images from the original note were not included. [facility] Medicine Medical Oncology [place] [phone] ONCOLOGY FOLLOW UP VISIT DIAGNOSIS: Metastatic prostate [...] 09/2018) DXA 10/10/21: osteopenia, referred to Endo HPI: Chidi is here for f/u. He cont to do better with ambulation since knee surgery. Denies any new pain or sx relate to the knee. He is finishing his new boowk in the next month. Has not had persistenceof Has present at his last visit No other pain. Minimal hot flushes. REVIEW OF SYSTEMS: As noted in HPI; all other systems were reviewed and found to be negative. PAST MEDICAL HISTORY: 1. As above 2. GERD and Sol's esophagus S/p Alli Fundoplication 3. ELevated fasting glusoce 4. S/p distant appendectomy 5. S/p tonsilectomy 6. Hypertension MEDS: Medications 11/06/23 1150 Medication Sig Taking? abiraterone (Zytiga) 500 mg tablet Take 2 tablets (1,000 mg) by mouth daily. Brand name only. Indications: metastatic castration-sensitive prostate cancer Yes predniSONE (Deltasone) 5 mg tablet Take 1 tablet by mouth daily. Yes acetaminophen (Tylenol) 500 mg tablet Take [...] every 3 months, dosage unknown Yes ALLERGY: No Known Allergies FAMILY HX: Reviewed no change SOCIAL HX: Reviewed - no change PHYSICAL EXAM: BP 151/63 (Patient Position: Sitting) Pulse 86 Temp 36.1 ??C (97 ??F) (Temporal) Resp 13 Ht180.3 cm (5' 10.98) Comment: with shoes Wt 80.6 kg (177 lb 11.1 oz) Comment: with shoes SpO2 97% BMI 24.79 kg/m?? ECOG PS: 0 General: NAD NCAT No cerval nodes RRR CTAB No rash No spinal tenderness to palpation Musculoskeletal: no spine ttp Neurological: Alert & oriented, no focal deficits. Psych: Conversant, normal mood and affect. LABS: Hb up to 12.5 (improving since surgery) otherwise unremarkable CMP normal PSA undetectable IMAGING STUDIES: No new ASSESSMENT AND PLAN: 77 y.o. M has metastatic prostate cancer with extensive disease involving nodes and bones. He is oncombination lupron+abiraterone in the first line therapy since Apr 2017. Clinically doing well, no sx relatable for cancer Recovering well from recent knee surgery both physically and with RBC coutnsd HE tolerates tx with manageable vasomotor sx PSA remains undetectable Labs reviewed and ok to cont ADT + Iveth/Pred Hb limproving we will monitor Osteoporosis: cont Ca and vit D I will revisit bone scan and consider prolia/reclast later this year F/u in 3 months for next labs/lupron/clinic Mr. Carbone asked appropriate questions and verbalized good understanding of and agreement with theplan. I encouraged him to call anytime with questions or concerns and he agreed. Faith Caba MD Oncology documented in this encounter Plan of Treatment Upcoming Encounters Date Type Department Care Team (Latest Contact Info) Description 09/29/2024 4:30 PM EST Hospital Encounter [place] [address] Lizet Wilkes MD [facility] [place] [address] 09/29/2024 4:30 PM EST - 09/29/2024 5:00 PM EST [place] [phone] Lizet Wilkes MD [facility] [place] [address] EGD, UPPER GI ENDOSCOPY (WRVU 2.09) 11/09/2024 10:00 AM EST Laboratory Appointment Lab at [facility] Hematology Oncology [address] [place] [phone] 11/09/2024 11:00 AM EST Office Visit H[place]ology [place] [phone] Faith Caba MD [facility] DR HEMATOLOGY [place] [address] 11/09/2024 12:00 PM EST Appointment [place] [phone] Scheduled Procedures Name Priority Associated Diagnoses Date/Ti me EGD, UPPER GI ENDOSCOPY (WRVU 2.09) Gastroesophageal reflux disease with esophagitis, unspecified whether hemorrhage 09/29/2024 4:30 PM EST documented as of this encounter Goals Goal Patient Goal Type Associated Problems Recent Progress Patient-Stated? Author DH Keller Medication Compliance and Understanding Patient Facing Action Plan Curly Nicolas, [facility] Note: The patient? s goal is to continue positive results of oral chemotherapy by maintaining improved labs PSA or stable scans in clinic for the upcoming year. documented as of this encounter Results * (ABNORMAL) Testosterone, total (01/28/2024 9:48 AM EDT) Testosterone <0.12(L) 1.93 - 7.40 ng/mL [facility] Comment: Pediatric Reference Ranges: ? [...] Caba MD CHEMISTRY ORDERABLES Performing Organization Address [facility]/State/ZIP Co de Phone Number [facility] [place] [address] * PSA (Ultrasensitive) (01/28/2024 9:48 AM EDT) Prostate Specific Antigen (Ultrasensitive) <0.01 0.00 - 4.00 ng/mL [facility] Comment: PLEASE NOTE: The above [...] In Lab Faith Caba MD CHEMISTRY ORDERABLES [facility] [place] [address] * Comprehensive metabolic panel (non-fasting) (01/28/2024 9:48 AM EDT) Pathologist [facility] Glucose 112 65 - 199 mg/dL [facility] Comment:Diabetes: >=200 mg/d L plus symptoms Blood Urea Nitrogen 16 10 - 20 mg/dL [facility] Creatinine 0.81 0.80 - 1.50 mg/dL [facility] Sodium 142 135 - 145 mmol/L [facility] Potassium 4.0 3.5 - 5.0 mmol/L [facility] Comment: Please note: ??Patients with WBC >100,000 may have falsely elevated Potassium levels. ??For accurate Potassium quantification in these patients send serum separator tube (gold top) for subsequent determinations. ??Contact the Clinical Chemistry Laboratory if there are any questions. Chloride 106 98 - 107 mmol/L [facility] Carbon Dioxide 23 22 - 31 mmol/L [facility] Anion Gap 13 5 - 15 mmol/L [facility] Calcium 9.1 8.5 - 10.5 mg/dL [facility] Protein, Total 6.5 6.1 - 8.0 g/dL [facility] Albumin 4.2 3.2 - 5.2 g/dL [facility] Aspartate Aminotransferase 13 0 - 39 unit/L [facility] Alanine Aminotransferase 8 0 - 55 unit/L [facility] Alkaline Phosphatase 100 40 - 130 unit/L [facility] Bilirubin, Total 0.5 0.2 - 1.3 mg/dL [facility] Est Glomerular Filtration Rate 90 >=60 mL/min/1. 73 m?? [facility] Comment: This patient's estimated GFR [...] In Lab Faith Caba MD CHEMISTRY ORDERABLES [facility] [place] [phone] documented in this encounter Visit Diagnoses Diagnosis Neoplasm of prostate, 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 Gastroesophageal reflux disease with esophagitis, unspecified whether hemorrhage documented in this encounter Care Teams Rubber And Plastics Worker Relationship Specialty Start Date End Date Kennedi Shaver MD [address] [place] [address] PCP - General Family Medicine 08/02/20 06/24/24 documented as of this encounter
--- OUTSIDE RECORDS SUMMARY | 2024-09-11 15:19 | XMS_ITS | Encounter Summary ---
Author Organization [facility] Address [facility] [place] [address] Care Team Providers Care Advertising Account Representative Name Role Phone Kennedi Shaver MD Primary Care Provider [phone] Encounter Details Date Type Department Care Team (Late st Contact Info) Description 03/17/2024 Orders [place] [address] Marina Gardner MD [facility] [place] [address] Gastroesophageal reflux disease with esophagitis, unspecified whether hemorrhage Social History Tobacco Use Types Packs/Day Years Used Date Smoking Tobacco: Former Cigarettes 1977 Smokeless Tobacco: Never Alcohol Use Standard Drinks/Week Comments Yes 14 (1 standard drink = 0.6 oz pu re alcohol) 1 drink a day [facility] Inpatient Questions Answer Date Recorded [...] 4:30 PM EST Hospital Encounter [place] [address] Lizet Wilkes MD [facility] [place] [address] 09/29/2024 4:30 PM EST - 09/29/2024 5:00 PM EST Surgery [place] [phone] Lizet Wilkes MD [facility] [place] [address] EGD, UPPER GI ENDOSCOPY (WRVU 2.09) 11/09/2024 10:00 AM EST Laboratory App[place] [facility] [place] [address] [place] [phone] 11/09/2024 11:00 AM EST Office Visit Hematology [place] [phone] Faith Caba MD [facility] DR HEMATOLOGY [place] [address] 11/09/2024 12:00 PM EST Appointment Hematology [place] [phone] Scheduled Orders Name Type Priority Associated Diagnoses Orde r Schedule ENDOSCOPY CASE REQUEST: EGD, UPPER GI ENDOSCOPY (WRVU 2.09) Procedures Routine Gastroesophageal reflux disease with esophagitis, unspecified whether hemorrhage Ordered: 03/17/2024 Scheduled Procedures Name Priority Associated Diagnoses Date/Ti me EGD, UPPER GI ENDOSCOPY (WRVU 2.09) Gastroesophageal reflux disease with esophagitis, unspecified whether hemorrhage 09/29/2024 4:30 PM EST documented as of this encounter Goals Goal Patient Goal Type Associated Problems Recent Progress Patient-Stated? Author [facility] Home Medication Compliance and Understanding Patient Facing Action Plan No Curly Andres, [facility] Note: The patient? s goal is to continue positive results of oral chemotherapy by maintaining improved labs PSA or stable scans in clinic for the upcoming year. documented as of this encounter Visit Diagnoses Diagnosis Gastroesophageal reflux disease with esophagitis, unspecified whether hemorrhage Gastroesophageal reflux disease with esophagitis, unspecified whether hemorrhage documented in this encounter Care Teams Advertising Account Representative Relationship Specialty Start Date End Date Kennedi Shaver MD [address] [place] [address] PCP - General Family Medicine 08/02/20 06/24/24 documented as of this encounter
--- OUTSIDE RECORDS SUMMARY | 2024-09-11 15:19 | XMS_ITS | Encounter Summary ---
Author Organization [facility] [place] [address] Care Team Providers Care Nailhead Setter Name Role Phone Kennedi Shaver MD Primary Care Provider [phone] Encounter Details Date Type Department Care Team (Late st Contact Info) Description 02/27/2024 Telephone [place] [address] Deborah Russo Social History Tobacco Use Types Packs/Day Years Used Date Smoking Tobacco: Former Cigarettes 1977 Smokeless Tobacco: Never Alcohol Use Standard Drinks/Week Comments Not Currently 14 (1 standard drink = 0.6 oz pu re alcohol) 1 drink a day [facility] Inpatient Questions Answer Date Recorded Does Anyone [...] encounter Miscellaneous Notes * Telephone Encounter - Deborah Russo - 02/27/2024 9:26 AM EDT Chidi Carbone [id number] Diagnosis/Indication: barretts Please review patient chart to confirm if [...] had a/an Upper Endoscopy before? Yes: Date 2021 If yes, did you have any problems [...] iron supplements or vitamins that contain iron? No Do you have a preference regarding [...] NEW referral patient; skip this question if GI provider ordered the procedure.) No Is there any other information or concerns you would like to us to share with your care team in relation to your upcoming scheduled procedure? No You must have a responsible libertarian who will drive you to your procedure, stay on campus for the entire duration of your procedure, and drive you home from your procedure. Who will likely be your lokie driver for the procedure? *Please Verify the height and weight, and adjust if height and/or weight have changed* Estimated body mass index is 25.46 kg/m?? as calculated from the following: Height as of 01/28/24: 177.8 cm (5' 10). Weight as of 01/28/24: 80.5 kg (177 lb 7.5 oz). *Patient must be scheduled for Anesthesia support if BMI is 40 or above* Age:78 y.o. documented in this encounter Plan of Treatment Upcoming Encounters Date Type Department Care Team (Latest Contact Info) Description 09/29/2024 4:30 PM EST Hospital Encounter [place] [address] Lizet Wilkes MD [facility] GASTROENTERMICKI [place] [address] 09/29/2024 4:30 PM EST - 09/29/2024 5:00 PM EST Surgery Gastroenterology at [place] [address] Lizte Wilkes MD [facility] [place] [place] [address] EGD, UPPER GI ENDOSCOPY (WRVU 2.09) 11/09/2024 10:00 AM EST Laboratory Appointment Lab at [facility] [place] Hematology Oncology [address] [place] [address] 11/09/2024 11:00 AM EST Office Visit Hematology and Oncology at [address] Faith Caba MD [facility] [address] [place] [address] 11/09/2024 12:00 PM EST Appointment Hematology and Oncology at [place] [address] Scheduled Procedures Name Priority Associated Diagnoses Date/Ti me EGD, UPPER GI ENDOSCOPY (WRVU 2.09) Gastroesophageal reflux disease with esophagitis, unspecified whether hemorrhage 09/29/2024 4:30 PM EST documented as of this encounter Goals Goal Patient Goal Type Associated Problems Recent Progress Patient-Stated? Author [facility] Medication Compliance and Understanding Patient Facing Action Plan Curly Nicolas, [facility] Note: The patient? s goal is to continue positive results of oral chemotherapy by maintaining improved labs PSA or stable scans in clinic for the upcoming year. documented as of this encounter Visit Diagnoses Not on filedocumented in this encounter Care Teams Nailhead Setter Relationship Specialty Start Date End Date Kennedi Shaver MD [facility] [address] [place] [address] PCP - General Family Medicine 08/02/20 06/24/24 documented as of this encounter
--- OUTSIDE RECORDS SUMMARY | 2024-09-11 15:19 | XMS_ITS | Encounter Summary ---
[place] [address] Care Team Providers Care Lab Coordinator Name Role Phone Kennedi Shaver MD Primary Care Provider [phone] Reason for Visit * Reason Comments Medication Refill Encounter Details Date Type Department Care Team (Late st Contact Info) Description 12/11/2023 Specialty [place] [address] Yenifer Seay, [facility] Social History Tobacco Use Types Packs/Day Years [...] as of this encounter Progress Notes * Yenifer Seay RPH - 12/11/2023 2:50 PM EDT Clinical Management Plan: Refill Specialty Pharmacy Consultation; Yenifer Seay RPH Comprehensive Medication Management (CMM) Chidi Carbone is a 78 y.o. (1945) [...] a change made to the Care Plan: No Allergies and Drug intolerance: No Known Allergies Medication Reconciliation Discrepancies (compared to [facility] med list) No Specialty Pharmacy Refill Questionnaire More data exists 12/11/2023 Refill Questionnaire What is the name of the specialty medication you are refilling? Zytiga Are you taking any new medications? No Any new medical condition? No Any new allergies? No Any new side effects that are bothersome? No What date will you need this fill by? 12/19/2023 Adherence: Any missed doses? No Patient understands no changes to current drug regimen were made. Yenifer Seay RPH 12/11/23 2:51 PM documented in this encounter Plan of Treatment Upcoming Encounters Date Type Department Care Team (Latest Contact Info) Description 09/29/2024 4:30 PM EST Hospital Encounter [place] [address] Lizet Wilkes MD [facility] [place] [address] 09/29/2024 4:30 PM EST - 09/29/2024 5:00 PM EST [place] [address] Lizet Wilkes MD [facility] [place] [address] EGD, UPPER GI ENDOSCOPY (WRVU 2.09) 11/09/2024 10:00 AM EST Laboratory Appointment [place] [facility] [place] [address] [place] [phone] 11/09/2024 11:00 AM EST Office Visit Hematology [place] [address] Faith Caba MD [facility] HEMATOLOGY [place] [address] 11/09/2024 12:00 PM EST Appointment Hematology [place] [phone] Scheduled Procedures Name Priority Associated Diagnoses Date/Ti me EGD, UPPER GI ENDOSCOPY (WRVU 2.09) Gastroesophageal reflux disease with esophagitis, unspecified whether hemorrhage 09/29/2024 4:30 PM EST documented as of this encounter Goals Goal Patient Goal Type Associated Problems Recent Progress Patient-Stated? Author DH Home Medication Compliance and Understanding Patient Facing Action Plan Curly Nicolas, [facility] Note: The patient? s goal is to continue positive results of oral chemotherapy by maintaining improved labs PSA or stable scans in clinic for the upcoming year. documented as of this encounter Visit Diagnoses Not on filedocumented in this encounter Care Teams Lab Coordinator Relationship Specialty Start Date End Date Kennedi Shaver MD [address] [place] [address] PCP - General Family Medicine 08/02/20 06/24/24 documented as of this encounter
--- OUTSIDE RECORDS SUMMARY | 2024-09-11 15:19 | XMS_ITS | Encounter Summary ---
[place] [address] Care Team Providers Care Steam Presser Name Role Phone Kennedi Shaver MD Primary Care Provider [phone] Reason for Visit * Reason Comments Medication Refill Medication Management Encounter Details Date Type Department Care Team (Late st Contact Info) Description 01/09/2024 Specialty [place] [address] Jaime Roberts, [facility] Social History Tobacco Use Types Packs/Day Years Used Date Smoking Tobacco: Former Cigarettes 1977 Smokeless Tobacco: Never Alcohol Use Standard Drinks/Week Comments Not Currently 14 (1 standard drink = 0.6 oz pu re alcohol) 1 drink a day [facility] Inpatient Questions Answer Date Recorded Does [...] as of this encounter Progress Notes * Jaiem Roberts [facility] - 01/09/2024 3:32 PM EDT Clinical Management Plan: Refill Specialty Pharmacy Consultation; Jaime Roberts Yan Comprehensive Medication Management (CMM) Chidi Carbone [...] Known Allergies Medication Reconciliation Discrepancies (compared to [facility] med list) No Specialty Pharmacy Refill Questionnaire More data exists 01/09/2024 Refill Questionnaire What is the name of the specialty medication you are refilling? Zytiga Are you taking any new medications? No Any new medical condition? No Any new allergies? No Any new side effects that are bothersome? No What date will you need this fill by? 01/18/2024 Adherence: Any missed doses? No Patient understands no changes to current drug regimen were made. Jaime Roberts RPH 01/09/24 3:34 PM documented in this encounter Plan of Treatment Upcoming Encounters Date Type Department Care Team (Latest Contact Info) Description 09/29/2024 4:30 PM EST Hospital En[place] [address] Lizet Wilkes MD [facility] [place] [address] 09/29/2024 4:30 PM EST - 09/29/2024 5:00 PM EST [place] [address] Lizet Wilkes MD [facility] [place] [address] EGD, UPPER GI ENDOSCOPY (WRVU 2.09) 11/09/2024 10:00 AM EST Laboratory [place]ment [place] [facility] [place] [address] [place] [phone] 11/09/2024 11:00 AM EST Office Visit H[place]ology [place] [address] Faith Caba MD [facility] DR HEMATOLOGY [place] [address] 11/09/2024 12:00 PM EST Appointment Hematology [place] [address] Scheduled Procedures Name Priority Associated [...] on filedocumented in this encounter Care Teams Steam Presser Relationship Specialty Start Date End Date Kennedi Shaver MD [facility] [address] [place] [address] PCP - General Family Medicine 08/02/20 06/24/24 documented as of this encounter
--- OUTSIDE RECORDS SUMMARY | 2024-09-11 15:19 | XMS_ITS | Encounter Summary ---
Author Organization [facility] [place] [address] Care Team Providers Care Tube Pusher Name Role Phone Kennedi Shaver MD Primary Care Provider Reason for Visit * Reason Comments Follow-up Encounter Details Date Type Department Care Team (Late st Contact Info) Description 01/28/2024 11:00 AM EDT Office Visit [place] [address] HEMATOLOGY AND ONCOLOGY [place], [place] [id number] Neoplasm of prostate, 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; Androgen deprivation therapy; Osteopenia, unspecified location; Anemia, unspecified type; Age-related osteoporosis without current pathological fracture Social History Tobacco Use Types Packs/Day Years Used Date Smoking Tobacco: Former Cigarettes 1977 Smokeless Tobacco: Never Alcohol Use Standard Drinks/Week Comments Not Currently 14 (1 standard drink = 0.6 oz pu re alcohol) 1 drink a day [facility] Inpatient Questions Answer Date Recorded Does [...] Sign Reading Time Taken Comments Blood Pressure 144/72 01/28/2024 11:20 AM EDT Pulse 82 01/28/2024 11:20 AM EDT Temperature 36.6 ??C (97.9 ??F) 01/28/2024 11:20 AM E DT Respiratory Rate 17 01/28/2024 11:20 AM EDT Oxygen Saturation 98% 01/28/2024 11:20 AM EDT Inhaled Oxygen Concentration - - Weight 80.5 kg (177 lb 7.5 oz) 01/28/2024 11:20 AM EDT Height 177.8 cm (5' 10) 01/28/2024 11:20 AM EDT Body Mass Index 25.46 01/28/2024 11:20 AM EDT documented in this encounter Progress Notes * Deborah Hector, BARTOLO - 01/28/2024 11:00 AM EDT Images from the original note were not included. [facility] Medicine Medical Oncology [place] [phone] ONCOLOGY FOLLOW UP VISIT DIAGNOSIS: Metastatic prostate [...] HPI: Chidi is here for f/u. He stopped taking his abiraterone and prednisone 5 days ago due to difficulty swallowing the pills - feels they get stick mid-way down his esophagus. No issues swallowing food, choking, or nausea. Is careful to chew his food thoroughly. Has had episodes of water coming back up after drinking. Has discussed w/PCP who suspects possible Alli flip and has referred him to GI.Feels tired today, but has otherwise been well. Ping has been sick, ? Flu. Chronic R shoulder pain/rotator cuff issues. Takes Tylenol prn w/effect. Well recovered from knee surgery. Rare hot flashes. REVIEW OF SYSTEMS: As noted in HPI; all other systems were reviewed and found to be negative. PAST MEDICAL HISTORY: 1. As above 2. GERD and Sol's esophagus S/p Alli Fundoplication 3. ELevated fasting glusoce 4. S/p distant appendectomy 5. S/p tonsilectomy 6. Hypertension MEDS: Medications 01/28/24 6603 Medication Sig Taking? abiraterone (Zytiga) 500 mg [...] General: NAD, pleasant, well-appearing Eyes: Non-injected, anicteric. Cardiovascular: RRR, no murmur. Resp: Effort normal. No respiratory distress. CTAB. Back: No abnormal curvature, spinal or CVA tenderness. Skin: Skin is warm and dry. No rash or lesions noted on limited exam. No pallor. Musculoskeletal: Normal range of motion, ambulatory without assist. Extremities: No distal edema noted. Neurological: Alert & oriented, no focal deficits. Psych: Conversant, normal mood and affect. Vitals reviewed. BP 144/72 (Patient Position: Sitting) Pulse 82 Temp 36.6 ??C (97.9 ??F) (Temporal) Resp 17 Ht 177.8 cm (5' 10) Wt 80.5 kg (177 lb 7.5 oz) SpO2 98% BMI 25.46 kg/m?? Wt Readings from Last 3 Encounters: 01/28/24 80.5 kg (177 lb 7.5 oz) 01/17/24 78 kg (172 lb) 10/29/23 80.6 kg (177 lb 11.1 oz) LABS: Hb stable (12.6), CBC otherwise unremarkable. CMP normal PSA remains undetectable IMAGING STUDIES: No new ASSESSMENT AND PLAN: 78 y.o. M has metastatic prostate cancer with extensive disease involving nodes and bones. He is oncombination lupron+abiraterone in the first line therapy since Apr 2017. Clinically doing well, no sx relatable for cancer. He continues tolerating therapy w/manageable vasomotor symptoms. PSA remains undetectable. He has been holding his edmar/pred x 5 days due to difficulty swallowing. His PCP has referred him back to GI for eval given his hx of GERD and Sol's esophagus, s/p Alli Fundoplication. I will message the Pharm to see if they have any suggestions foradministration in the meantime. Until he has improvement/adjustment, however, okay to continue to hold tx. Will continue w/Lupron as planned. Anemia: Hb stable over last 3 months after post-surgical recovery. No bleeding symptoms. He reportsPCP is monitoring. Osteopenia on DEXA 10/10/2021. He hasn't been taking Ca/D. I reviewed dosing/recommendations and recommend repeat DEXA at next visit. He agreed. F/u in 3 months for labs, DEXA, visit, Lupron Mr. Carbone asked appropriate questions and verbalized good understanding of and agreement with theplan. I encouraged him to call anytime with questions or concerns and he agreed. Deborah Hector APRN Oncology Addendum: ----- Message ----- From: Nazia Gaines [facility] Sent: 01/29/2024 11:53 AM EDT To: Deborah Hector APRN; Fatimah Morgan [facility] Good morning Blanche, I looked into it and unfortunately I don't have any great recommendations for helping with swallowing abiraterone. Per the kettle tender, it should not be crushed, split or chewed due to potentially adecrease in efficacy or mucosal irritation, and also likely due to the fact that it is a NIOSH group 1 agent. (https://www.meevl.Pluromed/media/attestation/products/zytiga/zytiga-crushin o-ryq-ktyulrfqu-tablets.pdf, https://www.sciencedirect.com/science/article/pii/V3160211181204212#zaw5vt1). I considered Yonsa, which is smaller and may be taken with food, but this only has an approval for castration-resistant mestatatic prostate cancer so I anticipate this would pose a pretty significantissue with insurance. I will keep an ear out and keep brainstorming and let you know if I come up with any suggestions! Thanks, Nazia Message sent to head gauge unit operator to request f/u w/pt to relay above info. documented in this encounter Plan of Treatment Upcoming Encounters Date Type Department Care Team (Latest Contact Info) Description 09/29/2024 4:30 PM EST Hospital Encounter Gastroenterology at [place] [phone] Lizet Wilkes MD [facility] [place] [address] 09/29/2024 4:30 PM EST - 09/29/2024 5:00 PM EST Surgery Gastroenterology at [place] [phone] Lizet Wilkes MD [facility] [place] [address] EGD, UPPER GI ENDOSCOPY (WRVU 2.09) 11/09/2024 10:00 AM EST Laboratory Appointment Lab [place] [facility] [place] On[facility] [address] [place], [place] [phone] 11/09/2024 11:00 AM EST Office Visit Hematology and Oncology at [place] [phone] Faith Caba MD [facility] [place] [address] 11/09/2024 12:00 PM EST Appointment Hematology and Oncology at [place] [phone] Scheduled Procedures Name Priority Associated Diagnoses Date/Ti me EGD, UPPER GI ENDOSCOPY (WRVU 2.09) Gastroesophageal reflux disease with esophagitis, unspecified whether hemorrhage 09/29/2024 4:30 PM EST documented as of this encounter Goals Goal Patient Goal Type Associated Problems Recent Progress Patient-Stated? Author [facility] Medication Compliance and Understanding Patient Facing Action Plan Curly Nicolas, [facility] Note: The patient? s goal is to continue positive results of oral chemotherapy by maintaining improved labs PSA or stable scans in clinic for the upcoming year. documented as of this encounter Results * DXA Central Spine, Hip, and/or Whole Body (Generic) (05/29/2024 2:16 PM EDT) NSC WORKSTATION ID [id number] [facility] Anatomical Region Laterality Modality C-spine, Hip N/A [...] See the Osteoporosis Clinician Guide at the [facility] Knowledge Map weblink (Clinical Resources) or on the intranet website: https://[facility]-intranet.[employer]/intranet/docs/default-source/m-h-ekjpcxpcj-ma -documents/exxssrisqyws-abdyitayi-rtbaz.pdf?sfvrsn=[email or web address]_2 DXA data sheets with BMD measurements and plots are available in E- under the imaging tab. Paper copies will be sent to providers without E-DH access. If you have received this report without the data sheet and do not have access to ESassor, please contact Radiology Wire Harness Design Engineer at [phone] Saturday thru Saturday 8am-4pm. ? Bone Density Report ? Name: ?Chidi Carbone Age: ? 78 Sex: ? Male Ethnicity: ? White Date of : 1945 Referring Provider: DEBORAH HECTOR Study: Bone densitometry was performed. Model: Episencial Jessica (S/N [id number]) SW version 13.6.0.5 Exam Date: May 29, 2024 Accession number: [id number] Bone Density: Region ? BMD ?T-score ??Z-score [...] questions please contact the health home care manager rn that requested your imaging first. ? Electronically signed by: Dneise Johnson MD, 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 (as entered by ordering provider) TECHNIQUE: Scans were acquired at the left forearm, lumbar spine and ??left hip using the Refresh Body A system. FINDINGS: Femoral neck BMD: 0.542 ? g/cm2 Lowest T-score at the diagnostic region of interest: T-score: -2.8, VIRGIE: left ??total hip, WHO diagnosis: ??osteoporosis ......... Comparison......... Previous scan:10/10/2021 Baseline scan:10/10/2021 Total spine: Compared to the previous, 0.113 ??g/cm2 (12.9 %) decrease. At [facility], least significant change for bone mineral density measurements at the spine region of interest: 0.031 g/cm2. Total hip: Compared to the previous, 0.066 ??g/cm2 (9.8 %) decrease. At [facility], least significant change for bone mineral density measurements at the left total hip region of interest: 0.025 g/cm2. Procedure Note Denise Johnson MD - 05/29/2024 EXAMINATION: DXA CENTRAL SPINE, HIP, AND/OR WHOLE BODY (GENERIC) CLINICAL HISTORY: 78 years Male Pt w/hx prostate cancer and osteopeniaon longwall machine operator helper ADT (as entered by ordering provider) TECHNIQUE: Scans were acquired at the left forearm, lumbar spine and lefthip using the Holo[employer] Horizon A system. FINDINGS: Femoral neck BMD: 0.542 g/cm2 Lowest T-score at the diagnostic region of interest: T-score: -2.8, VIRGIE: left total hip, WHO diagnosis: osteoporosis ......... Comparison......... Previous scan:10/10/2021 Baseline scan:10/10/2021 Total spine: Compared to the previous, 0.113 g/cm2 (12.9 %) decrease. At [facility], least significant change for bonemineral density measurements at the spine region of interest: 0.031 g/cm2. Total hip: Compared to the previous, 0.066 g/cm2 (9.8 %) decrease. At [facility], least significant change for bonemineral density [...] See the Osteoporosis Clinician Guide at the [facility] Knowledge Map weblink(Clinical Resources) or on the intranet website: https://[facility]-intranet.[place].org/intranet/docs/default-source/q-w-zegdqjmef-ma -documents/hqfppurfricb-hzohcoldd-mazrt.pdf?sfvrsn=36c50b1c_2 DXA data sheets with BMD measurements and plots are available in E-under the imaging tab. Paper copies will be sent to providers without EDevunity access.If you have received this report without the data sheet and do not haveaccess to EDevunity, please contact Radiology Wire Harness Design Engineer at [phone] Saturday thruFriday 8am-4pm. Bone Density Report Name: Chidi Carbone Age: 78 Sex: Male Ethnicity: White Date of : 1945 Referring Provider: DEBORAH HECTOR Study: Bone densitometry was performed. Model: Episencial A (S/N [id number]) [employer] version 13.6.0.5 Exam Date: May 29, 2024 Accession number: [id number] Bone Density: Region BMD T-score Z-score AP [...] have questions please contactthe health home care manager rn that requested your imaging first. Deborah Hector APRN IMG DEXA ORDERABLE S * (ABNORMAL) Testosterone, total (04/28/2024 1:17 PM [...] Agency Comment Spec In Lab Deborah Hector [employer] CHEMISTRY ORDERABL ES [facility] [place] [address] * PSA (Ultrasensitive) (04/28/2024 1:17 PM EDT) [...] Lab Deborah Hector APRN CHEMISTRY ORDERABL ES [facility] [place] [address] * Comprehensive metabolic panel (non-fasting) (04/28/2024 1:17 [...] LABORATORY Calcium 9.0 8.5 - 10.5 mg/dL [facility] Protein, Total 6.7 6.1 - [...] APRN CHEMISTRY ORDERABL ES Performing Organization Address City/State/[facility] Co de Phone Number [facility] [place] [address] documented in this encounter Visit Diagnoses Diagnosis Neoplasm of prostate, 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 Androgen deprivation therapy Encounter for therapeutic drug monitoring Osteopenia, unspecified location Anemia, unspecified type Age-related osteoporosis without current pathological fracture Senile osteoporosis Osteopenia, unspecified location Age-related osteoporosis without current pathological fracture Senile osteoporosis Gastroesophageal reflux disease with esophagitis, unspecified whether hemorrhage documented in this encounter Care Teams Tube Pusher Relationship Specialty Start Date End Date Kennedi Shaver MD [address] [place] [address] PCP - General Family Medicine 08/02/20 06/24/24 documented as of this encounter
--- OUTSIDE RECORDS SUMMARY | 2024-09-11 15:19 | XMS_ITS | Encounter Summary ---
Author Organization [facility] Address [facility] [place] [address] Care Team Providers Care Genetic Physician Name Role Phone Kennedi Shaver MD Primary Care Provider [phone] Encounter Details Date Type Department Care Team (Latest Contact Info) Description 01/17/2024 2:25 PM EDT - 01/17/2024 11:59 PM EDT Hospital Encounter XRay at [address] [place] [address] Lawanda Swartz MD [facility] [place] [address] Right shoulder pain, unspecified chronicity Discharge Disposition: Home Social History Tobacco Use Types Packs/Day Years Used Date Smoking Tobacco: Former Cigarettes 1977 Smokeless Tobacco: Never Alcohol Use Standard Drinks/Week Comments Not Currently 14 (1 standard drink = 0.6 oz pu re alcohol) 1 drink a day [facility] Inpatient Questions Answer Date Recorded Does Anyone [...] 4:30 PM EST Hospital Encounter [place] [address] Lizet Wilkes MD [facility] [place] [address] 09/29/2024 4:30 PM EST - 09/29/2024 5:00 PM EST Surgery Gastroenterology at [place] [phone] Lizet Wilkes MD [facility] [place] [address] EGD, UPPER GI ENDOSCOPY (WRVU 2.09) 11/09/2024 10:00 AM EST Laboratory Appointment Lab at [facility] Hematology Oncology [address] [place] [phone] 11/09/2024 11:00 AM EST Office Visit Hematology [place] [phone] Faith Caba MD [facility] DR HEMATOLOGY [place] [address] 11/09/2024 12:00 PM EST Appointment Hematology and Oncology at [place] [phone] Scheduled Procedures Name Priority Associated Diagnoses Date/Ti me EGD, UPPER GI ENDOSCOPY (WRVU 2.09) Gastroesophageal reflux disease with esophagitis, unspecified whether hemorrhage 09/29/2024 4:30 PM EST documented as of this encounter Goals Goal Patient Goal Type Associated Problems Recent Progress Patient-Stated? Author [facility] Medication Compliance and Understanding Patient Facing Action Plan Curly Nicolas, [facility] Note: The patient? s goal is to continue positive results of oral chemotherapy by maintaining improved labs PSA or stable scans in clinic for the upcoming year. documented as of this encounter Procedures Procedure Name Priority Date/Time Associated Diagnosis Comments XR SHOULDER RIGHT Routine 01/17/2024 2:4 0 PM EDT Right shoulder pain, unspecified chronicity documented in this encounter Results * XR Shoulder Right (Generic) (01/17/2024 2:40 PM EDT) WORKSTATION ID [id number] RAD Anatomical Region Laterality Modality Shoulder Right [...] who have questions please contact the health primary care md that requested your imaging first. ? Electronically signed by: Annabel Garsia MD, [facility] ([phone]), at 01/17/2024 3:34 PM Narrative 01/17/2024 3:34 [...] patients who have questions please contactthe health primary care md that requested your imaging first. Electronically signed by: Annabel Garsia MD, [facility]([phone]), at 01/17/2024 3:34 PM Lawanda Swartz MD IMG DX ORDERABLES documented in this encounter Visit Diagnoses Diagnosis Right shoulder pain, unspecified chronicity Gastroesophageal reflux disease with esophagitis, unspecified whether hemorrhage documented in this encounter Care Teams Genetic Physician Relationship Specialty Start Date End Date Kennedi Shaver MD [address] [place] [address] PCP - General Family Medicine 08/02/20 06/24/24 documented as of this encounter
--- OUTSIDE RECORDS SUMMARY | 2024-09-11 15:19 | XMS_ITS | Encounter Summary ---
Author Organization [facility] [place] [address] Care Team Providers Care Concrete Vibrator Operator Name Role Phone Kennedi Shaver MD Primary Care Provider [phone] Reason for Visit * Reason Onset Date Comments Other 01/29/2024 Questions 01/29/2024 Encounter Details Date Type Department Care Team (Late st Contact Info) Description 01/29/2024 Telephone Hematology and Oncology at [facility] [place] [address] Patricia James RN INFUSION ROOM Other; Questions Social History Tobacco Use Types Packs/Day Years Used Date Smoking Tobacco: Former Cigarettes 1977 Smokeless Tobacco: Never Alcohol Use Standard Drinks/Week Comments Not Currently 14 (1 standard drink = 0.6 oz pu re alcohol) 1 drink a day [facility] Inpatient Questions Answer Date Recorded [...] Miscellaneous Notes * Telephone Encounter - Patricia James RN - 01/29/2024 12:55 PM EDT Pt notified provider he was having issues w/ swallowing the abiraterone capsules d/t size. Pharmacist was consulted by CARRIAGE RIDER for suggestions while pt waited on being seen by GI. Per Nazia Gaines [facility]: I looked into it and unfortunately I don't have any great recommendations for helping with swallowing abiraterone. Per the forest officer, it should not be crushed, split or chewed due to potentially adecrease in efficacy or mucosal irritation, and also likely due to the fact that it is a [employer]OSH group 1 agent. (https://www.Tvoop/media/attestation/products/zytiga/zytiga-crushin p-kxo-bdgvoutfh-tablets.pdf, https://www.sciencedirect.com/science/article/pii/N6824976996036726#tyf0kj9). I considered Yonsa, which is smaller and may be taken with food, but this only has an approval for castration-resistant mestatatic prostate cancer so I anticipate this would pose a pretty significantissue with insurance. I will keep an ear out and keep brainstorming and let you know if I come up with any suggestions! Above reviewed w/ pt. All his questions answered to his apparent satisfaction. He is aware to call clinic w/any concerns/questions. documented in this encounter Plan of Treatment Upcoming Encounters Date Type Department Care Team (Latest Contact Info) Description 09/29/2024 4:30 PM EST Hospital Encounter [place] [address] Lizet Wilkes MD [facility] [place] [address] 09/29/2024 4:30 PM EST - 09/29/2024 5:00 PM EST Surgery Gastroenterology at [place] [phone] Lizet Wilkes MD [facility] [place] [address] EGD, UPPER GI ENDOSCOPY (WRVU 2.09) 11/09/2024 10:00 AM EST Laboratory Appointment Lab at [facility] Hematology Oncology [address] [place] [address] 11/09/2024 11:00 AM EST Office Visit Hematology and Oncology at [place] [address] Faith Caba MD [facility] DR HEMATOLOGY [place] [address] 11/09/2024 12:00 PM EST Appointment Hematology and Oncology at [place] [address] Scheduled Procedures Name Priority Associated Diagnoses Date/Ti me EGD, UPPER GI ENDOSCOPY (WRVU 2.09) Gastroesophageal reflux disease with esophagitis, unspecified whether hemorrhage 09/29/2024 4:30 PM EST documented as of this encounter Goals Goal Patient Goal Type Associated Problems Recent Progress Patient-Stated? Author [facility] Medication Compliance and Understanding Patient Facing Action Plan Curly Nicolas, [facility] Note: The patient? s goal is to continue positive results of oral chemotherapy by maintaining improved labs PSA or stable scans in clinic for the upcoming year. documented as of this encounter Visit Diagnoses Not on filedocumented in this encounter Care Teams Concrete Vibrator Operator Relationship Specialty Start Date End Date Kennedi Shaver MD [facility] [address] [place] [address] PCP - General Family Medicine 08/02/20 06/24/24 documented as of this encounter
--- OUTSIDE RECORDS SUMMARY | 2024-09-11 15:19 | XMS_ITS | Encounter Summary ---
Author Organization [facility] [place] [address] Care Team Providers Care Adjusto Writer Operator Name Role Phone Kennedi Shaver MD Primary Care Provider [phone] Reason for Visit * Reason Onset Date Comments Other 02/21/2024 Difficulty swall owing Encounter Details Date Type Department Care Team (Late st Contact Info) Description 02/21/2024 Telephone Hematology [place] [phone] Cassy Chamberlain, RN Other (Difficulty swallowing) Social History Tobacco Use Types Packs/Day Years Used Date Smoking Tobacco: Former Cigarettes 1977 Smokeless Tobacco: Never Alcohol Use Standard Drinks/Week Comments Not Currently 14 (1 standard drink = 0.6 oz pu re alcohol) 1 drink a day [facility] Inpatient Questions Answer Date Recorded Does [...] encounter Miscellaneous Notes * Telephone Encounter - Cassy Chamberlain Jessica, RN - 02/21/2024 7:20 AM EDTSummary: follow up swallow issues ----- Message from Faith Caba sent at 02/21/2024 1:05 AM EDT ----- Regarding: RE: Treatment Plan Clarification Thanks all good suggestions, but without clinical evaluation of the primary problem, I am not sure we can get very far with switching his meds. Triage, could you please check in with Chidi and see if we need to do anything. Ideally he should go through de PCP to expedite GI vs surgical work up if he has some underlying mechanical problem affecting his swallowing. Faith ----- Message ----- From: Deborah Hector APRN Sent: 02/20/2024 8:03 AM EDT To: Faith Caba MD; Radha Larson [facility] Subject: RE: Treatment Plan Clarification ThanksRadha. It seems worth trying the switch, but I'll defer to Dr. Caba. I'm not sure where things stand w/Chidi's GI follow-up (the thought was that this is related to his Alli possibly flipping, which may require surgical intervention). Blanche ----- Message ----- From: Radha Larson [facility] Sent: 02/19/2024 12:58 PM EDT To: Deborah Hector APRN; Faith Caba MD Subject: Treatment Plan Clarification Sc Dr. Caba and Blanche, I spoke with Chidi today and he let me know that he is still holding his abiraterone due to difficulties swallowing the medication. I wanted to confirm that you are okay with him continuing to hold this until his appointment in March. Also, I was comparing the 500 mg tablets to the 250 mg tablets online, and it looks like the [id number] mg tablets may be film-coated, while the 250 mg tablets are not. Chidi mentioned that his difficulty with swallowing his current medication feels like it may be related the coating around the tablets, so it is possible the 250 mg tablets may work better for him. They are also a little bit smaller, though the size difference may not make much of a difference. Call placed to patient and spoke to Chidi. Will be talking with GI and PCP next week. Chidi is in good spirits. He said his PCP is all over this and is getting him set up with an evaluation hopefully next week. He has not heard back with a date/time yet. Once he is evaluated and they have more information he will reach out to us to update and we can make a plan about the zytiga All questions answered to patient's apparent satisfaction. documented in this encounter Plan of Treatment Upcoming Encounters Date Type Department Care Team (Latest Contact Info) Description 09/29/2024 4:30 PM EST Hospital Encounter Gastroenterology at [place] [phone] Lizet Wilkes MD [facility] [place] [address] 09/29/2024 4:30 PM EST - 09/29/2024 5:00 PM EST Surgery Gastroenterology at [place] [phone] Lizet Wilkes MD [facility] [place] [address] EGD, UPPER GI ENDOSCOPY (WRVU 2.09) 11/09/2024 10:00 AM EST Laboratory Appointment Lab at [facility] Hematology Oncology [address] [place] [phone] 11/09/2024 11:00 AM EST Office Visit Hematology and Oncology at [place] [phone] Faith Caba MD [facility] DR HEMATOLOGY [place] [address] 11/09/2024 12:00 PM EST Appointment Hematology and Oncology at [place] [phone] Scheduled Procedures Name Priority Associated Diagnoses Date/Ti [...] on filedocumented in this encounter Care Teams Adjusto Writer Operator Relationship Specialty Start Date End Date Kennedi Shaver MD [facility] [address] [place] [address] PCP - General Family Medicine 08/02/20 06/24/24 documented as of this encounter
--- OUTSIDE RECORDS SUMMARY | 2024-09-11 15:19 | XMS_ITS | Encounter Summary ---
Author Organization [facility] [place] [address] Care Team Providers Care Supervisor Costuming Name Role Phone Kennedi Shaver MD Primary Care Provider [phone] Encounter Details Date Type Department Care Team (Late st Contact Info) Description 01/17/2024 Orders [place] [address] Doris Cordova PA [facility] [place] [address] Social History Tobacco Use Types Packs/Day Years Used Date Smoking Tobacco: Former Cigarettes 1977 Smokeless Tobacco: Never Alcohol Use Standard Drinks/Week Comments Not Currently 14 (1 standard drink = 0.6 oz pu re alcohol) 1 drink a day [facility] Inpatient Questions Answer Date Recorded Does [...] 4:30 PM EST Hospital Encounter [place] [phone] Lizet Wilkes MD [facility] [place] [address] 09/29/2024 4:30 PM EST - 09/29/2024 5:00 PM EST Surgery [place] [phone] Lizet Wilkes MD [facility] [place] [address] EGD, UPPER GI ENDOSCOPY (WRVU 2.09) 11/09/2024 10:00 AM EST Laboratory Appointment Lab [place] [facility] [place] Oncology [address] [place] [phone] 11/09/2024 11:00 AM EST Office Visit Hematology [place] [phone] Faith Caba MD [facility] DR [place] [address] 11/09/2024 12:00 PM EST Appointment Hematology [place] [phone] Scheduled Procedures Name Priority Associated Diagnoses Date/Ti hi EGD, UPPER GI ENDOSCOPY (WRVU 2.09) Gastroesophageal reflux disease with esophagitis, unspecified whether hemorrhage 09/29/2024 4:30 PM EST documented as of this encounter Goals Goal Patient Goal Type Associated Problems Recent Progress Patient-Stated? Author [facility] Medication Compliance and Understanding Patient Facing Action Plan Curly Nicolas, [facility] Note: The patient? s goal is to continue positive results of oral chemotherapy by maintaining improved labs PSA or stable scans in clinic for the upcoming year. documented as of this encounter Visit Diagnoses Not on filedocumented in this encounter Care Teams Supervisor Costuming Relationship Specialty Start Date End Date Kennedi Shaver MD [address] [facility] [address] [place] [address] PCP - General Family Medicine 08/02/20 06/24/24 documented as of this encounter
--- OUTSIDE RECORDS SUMMARY | 2024-09-11 15:19 | XMS_ITS | Encounter Summary ---
Author Organization [facility] [place] [address] Care Team Providers Care Middle Stitcher Name Role Phone Kennedi Shaver MD Primary Care Provider [phone] Encounter Details Date Type Department Care Team (Latest Contact Info) Description 10/29/2023 Travel Social History Tobacco Use Types Packs/Day [...] (Latest Contact Info) Description 09/29/2024 4:30 PM [facility] Hospital Encounter [place] [phone] Lizet Wilkes MD [facility] [place] [address] 09/29/2024 4:30 PM EST - 09/29/2024 5:00 PM EST Surgery [place] [phone] Lizet Wilkes MD [facility] [place] [address] EGD, UPPER GI ENDOSCOPY (WRVU 2.09) 11/09/2024 10:00 AM EST Laboratory Appointment Lab at [facility] Hematology Oncology [address] [place] [phone] 11/09/2024 11:00 AM EST Office Visit Hematology [place] [phone] Faith Caba MD [facility] DR HEMATOLOGY [place] [address] 11/09/2024 12:00 PM EST Appointment Hematology [place] [phone] Scheduled Procedures Name Priority Associated Diagnoses Date/Ti me EGD, UPPER GI ENDOSCOPY (WRVU 2.09) Gastroesophageal reflux disease with esophagitis, unspecified whether hemorrhage 09/29/2024 4:30 PM EST documented as of this encounter Goals Goal Patient Goal Type Associated Problems Recent Progress Patient-Stated? Author [facility] Medication Compliance and Understanding Patient Facing Action Plan Curly Nicolas, [facility] Note: The patient? s goal is to continue positive results of oral chemotherapy by maintaining improved labs PSA or stable scans in clinic for the upcoming year. documented as of this encounter Visit Diagnoses Not on filedocumented in this encounter Care Teams Middle Stitcher Relationship Specialty Start Date End Date Kennedi Shaver MD [facility] [address] [place] [address] PCP - General Family Medicine 08/02/20 06/24/24 documented as of this encounter
--- OUTSIDE RECORDS SUMMARY | 2024-09-11 15:19 | XMS_ITS | Encounter Summary ---
Author Organization [facility] [address] Care Team Providers Care Vice President Tax Name Role Phone Kennedi Shaver MD Primary Care Provider [phone] Reason for Visit * Treatment/Therapy Plan Authorization (Routine) - Authorized Specialty Diagnoses / Procedures Referred By Blaine peralta Referred To Contact Diagnoses Neoplasm of prostate, 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 Procedures TC LEUPROLIDE ACETATE, PER 1MG, INJECTION (LUPRON) Faith Caba MD [facility] [place] [address] [facility] Hem Onc [address] [place] [address] Referral ID Status Reason Start Date Expiration Date V isits Requested Visits Authorized [id number] Authorized 09/27/2020 09/29/2024 99 99 Encounter Details Date Type Department Care Team (Latest Contact Info) Description 10/29/2023 9:26 AM EST Hospital Encounter [place]ology [place] [phone] Neoplasm of prostate, distant metastasis staging category [...] as of this encounter Progress Notes * Alicia Jenkins RN - 10/29/2023 12:26 PM EST Patient Name: Chidi Carbone Patient Age: 77 y.o. Birthdate: 1945 Admit date: 10/29/2023 Attending Physician: No att. providers found Access visit. See MAR and/or flowsheet. Lupron given. Patient tolerated well. documented in this encounter Plan of Treatment Upcoming Encounters Date Type Department Care Team (Latest Contact Info) Description 09/29/2024 4:30 PM EST Hospital En[place] [phone] Lizet Wilkes MD [facility] [address] 09/29/2024 4:30 PM EST - 09/29/2024 5:00 PM EST [place] [phone] Lizet Wilkes MD [facility] [place] [address] EGD, UPPER GI ENDOSCOPY (WRVU 2.09) 11/09/2024 10:00 AM EST Laboratory Appointment Lab at [facility] Hematology Oncology [address] [place] [phone] 11/09/2024 11:00 AM EST Office Visit [place]ology [place] [phone] Faith Caba MD [facility] [place] [address] 11/09/2024 12:00 PM EST Appointment [place]ology [place] [phone] Scheduled Procedures Name Priority Associated Diagnoses Date/Ti me EGD, UPPER GI ENDOSCOPY (WRVU 2.09) Gastroesophageal reflux disease with esophagitis, unspecified whether hemorrhage 09/29/2024 4:30 PM EST documented as of this encounter Goals Goal Patient Goal Type Associated Problems Recent Progress Patient-Stated? Author [facility] Medication Compliance and Understanding Patient Facing [...] 22.5 mg, Intramuscular, ONCE, 1 dose, On Sat10/29/23 at 1215, Last injection site was... leuprolide IM injection site: R Gluteal (04/16/2023 11:31 AM), Routine, This agent is restricted to outpatient use. Is this drug being given as an outpatient? Yes Given 10/29/2023 12:22 PM EST 22.5 mg Right Gluteal documented in this encounter Care Teams Vice President Tax Relationship Specialty Start Date End Date Kennedi Shaver MD [facility] [address] [place] [address] PCP - General Family Medicine 08/02/20 06/24/24 documented as of this encounter
--- OUTSIDE RECORDS SUMMARY | 2024-09-11 15:20 | XMS_ITS | Encounter Summary ---
[place] [address] Care Team Providers Care Magnet Maker Name Role Phone Kennedi Shaver MD Primary Care Provider [phone] Reason for Visit * Treatment/Therapy Plan Authorization (Routine) - Authorized Specialty Diagnoses / Procedures Referred By Blaine peralta Referred To Contact Diagnoses Neoplasm of prostate, 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 Procedures TC LEUPROLIDE ACETATE, PER 1MG, INJECTION (LUPRON) Faith Caba MD [facility] [address] [place] [address] [facility] Hem Onc [address] [place] [address] Referral ID Status Reason Start Date Expiration Date V isits Requested Visits Authorized [id number] Authorized 09/27/2020 09/29/2024 99 99 Encounter Details Date Type Department Care Team (Latest Contact Info) Description 07/29/2023 8:59 AM EDT - 07/29/2023 11:59 PM EDT Hospital Encounter [place] [address] Neoplasm of prostate, distant metastasis staging category [...] muscle. Once every 3 months, dosage unknown predniSONE (Deltasone) 5 mg Tablet Take 1 tablet by mouth daily. 30 tablet 11 11/14/2022 09/20/2023 abiraterone (Zytiga) 500 mg TabletIndications:Neopl asm of prostate, 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 Take 2 tablets by mouth daily. Brand name only. 60 tablet 11 09/11/2022 09/20/2023 documented as of this encounter Progress Notes * Keanu Acosta, RN - 07/29/2023 11:33 AM EDT Patient Name: Chidi Carbone Patient Age: 77 y.o. Birthdate: 1945 Admit date: 07/29/2023 Attending Physician: No att. providers found Access visit. See MAR and/or flowsheet. Lupron administered in L gluteal, tolerated well. documented in this encounter Plan of Treatment Upcoming Encounters Date Type Department Care Team (Latest Contact Info) Description 09/29/2024 4:30 PM EST Hospital En[place] [address] Lizet Wilkes MD [facility] [place] [address] 09/29/2024 4:30 PM EST - 09/29/2024 5:00 PM EST [place] [address] Lizet Wilkes MD [facility] [place] [address] EGD, UPPER GI ENDOSCOPY (WRVU 2.09) 11/09/2024 10:00 AM EST Laboratory Appointment Lab at [facility] Hematology Oncology [address] [place] [phone] 11/09/2024 11:00 AM EST Office Visit [place]ology [place] [address] Faith Caba MD [facility] [address] [place] [address] 11/09/2024 12:00 PM EST Appointment Hematology and Oncology at [facility] [place] [phone] Scheduled Procedures Name Priority Associated Diagnoses Date/Ti [...] 22.5 mg, Intramuscular, ONCE, 1 dose, On 07/29/23 at 1130, Last injection site was... leuprolide IM injection site: R Gluteal (10/16/2022 11:20 AM) , Routine, This agent is restricted to outpatient use. Is this drug being given as an outpatient? Yes Given 07/29/2023 11:27 AM EDT 22.5 mg Left Gluteal documented in this encounter Care Teams Magnet Maker Relationship Specialty Start Date End Date Kennedi Shaver MD [address] [place] [address] PCP - General Family Medicine 08/02/20 06/24/24 documented as of this encounter
--- OUTSIDE RECORDS SUMMARY | 2024-09-11 15:20 | XMS_ITS | Encounter Summary ---
Author Organization [facility] Address [facility] [place] [address] Care Team Providers Care Power Grader Operator Name Role Phone Kennedi Shaver MD Primary Care Provider [phone] Encounter Details Date Type Department Care Team (Late st Contact Info) Description 04/16/2023 10:30 AM EDT Office Visit Hematology [place] [address] Faith Caba MD [facility] [address] [place] [address] Neoplasm of prostate, 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 Social History Tobacco Use Types Packs/Day Years Used Date Smoking Tobacco: Former Cigarettes 1977 Smokeless Tobacco: Never Alcohol Use Standard Drinks/Week Comments Not Currently 14 (1 standard drink = 0.6 oz pu re alcohol) 1 drink a day [facility] Inpatient Questions Answer Date Recorded Does Anyone [...] Sign Reading Time Taken Comments Blood Pressure 143/79 04/16/2023 10:23 AM EDT Pulse 78 04/16/2023 10:23 AM EDT Temperature 35.9 ??C (96.6 ??F) 04/16/2023 1 0:23 AM EDT Respiratory Rate 18 04/16/2023 10:2 3 AM EDT Oxygen Saturation 95% 04/16/2023 10: 23 AM EDT Inhaled Oxygen Concentration - - Weight 80.2 kg (176 lb 12.9 oz) 023 10:23 AM EDT Height 180 cm (5' 10.87) 04/16/2023 10 :23 AM EDT Body Mass Index 24.75 04/16/2023 10:23 AM EDT documented in this encounter Progress Notes * Faith Caba MD - 04/16/2023 10:30 AM EDT Images from the original note were not included. [facility] Medicine Medical Oncology [place] [id number] ONCOLOGY FOLLOW UP VISIT DIAGNOSIS: Metastatic prostate [...] 10/10/21: osteopenia, referred to Endo HPI: Chidi RTC for f/u. He is well No new sx to report. 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 Recovery from knee surgery was slower than he hopped, but he is is now making good progress. He plan to have L knee surrgery this fall. No other pain. Minimal hot flushes. Tori had ijury after falling d.u dog pulling her. She is also recovering. REVIEW OF SYSTEMS: As noted in HPI; all other systems were reviewed and found to be negative. PAST MEDICAL HISTORY: 1. As above 2. GERD and Sol's esophagus S/p Alli Fundoplication 3. ELevated fasting glusoce 4. S/p distant appendectomy 5. S/p tonsilectomy 6. Hypertension MEDS: Medications 04/16/23 1023 Medication Sig Taking? acetaminophen (Tylenol) 500 mg tablet Take 2 tablets by mouth every 8 hours. Continue the Tylenol around the clock for 10 days after surgery, (12/29/22). Then may take if needed per package insert. Do not take more than 3,000 mg of Tylenol in 24 hours. Yes predniSONE (Deltasone) 5 mg Tablet Take 1 tablet by mouth daily. Yes abiraterone (Zytiga) 500 mg Tablet Take 2 tablets by mouth daily. Brand name only. Yes finasteride (Proscar) 5 mg Tablet Take [...] Once every 3 months, dosage unknown Yes irbesartan (AVAPRO) 75 mg Tablet Take 75 mg by mouth every evening. ALLERGY: No Known Allergies FAMILY HX: Reviewed no change SOCIAL HX: Reviewed - no change PHYSICAL EXAM: BP 143/79 (Patient Position: Sitting) Pulse 78 Temp 35.9 ??C (96.6 ??F) (Temporal) Resp 18 Ht 180 cm (5' 10.87) Wt 80.2 kg (176 lb 12.9 oz) SpO2 95% BMI 24.75 kg/m?? ECOG PS: 0 General: NAD NCAT No cerval nodes RRR CTAB No rash No spinal tenderness to palpation Musculoskeletal: Ambulatory with cane. Neurological: Alert & oriented, no focal deficits. Psych: Conversant, normal mood and affect. LABS: Hb 13.5 improving since surgery CMP normal PSA undetectable IMAGING STUDIES: No new ASSESSMENT AND PLAN: 77 y.o. M has metastatic prostate cancer with extensive disease involving nodes and bones. He is oncombination lupron+abiraterone in the first line therapy since Apr 2017. Clinically doing well, without any sx to suggest disease progression Tolerating tx with manageable mild hot flushes PSA remains undetectable Labs reviewed and ok to cont ADT + Iveth/Pred Osteoporosis: cont Ca and vit D Need to re-establish with endocrinology F/u in 3 months Mr. Carbone asked appropriate questions and verbalized good understanding of and agreement with theplan. I encouraged him to call anytime with questions or concerns and he agreed. Faith Caba MD Oncology documented in this encounter Plan of Treatment Upcoming Encounters Date Type Department Care Team (Latest Contact Info) Description 09/29/2024 4:30 PM EST Hospital En[place] [address] Lizet Wilkes MD [facility] [place] [address] 09/29/2024 4:30 PM EST - 09/29/2024 5:00 PM EST Surgery Gastroenterology at [place] [phone] Lizet Wilkes MD [facility] [place] [place] [address] EGD, UPPER GI ENDOSCOPY (WRVU 2.09) 11/09/2024 10:00 AM EST Laboratory Appointment Lab at [facility] Hematology Oncology [address] [place] [phone] 11/09/2024 11:00 AM EST Office Visit Hematology [place] [phone] Faith Caba MD [facility] [place] [address] 11/09/2024 12:00 PM EST Appointment H[place]ology [place] [phone] Scheduled Procedures Name Priority Associated Diagnoses Date/Ti me EGD, UPPER GI ENDOSCOPY (WRVU 2.09) Gastroesophageal reflux disease with esophagitis, unspecified whether hemorrhage 09/29/2024 4:30 PM EST documented as of this encounter Goals Goal Patient Goal Type Associated Problems Recent Progress Patient-Stated? Author [facility] Medication Compliance and Understanding Patient Facing Action Plan Cruly Nicolas, [facility] Note: The patient? s goal is to continue positive results of oral chemotherapy by maintaining improved labs PSA or stable scans in clinic for the upcoming year. documented as of this encounter Results * (ABNORMAL) Testosterone, total (07/29/2023 9:08 AM EDT) Testosterone <0.12(L) 1.93 - 7.40 ng/mL [facility] Comment: Pediatric Reference Ranges: ? [...] Kenneth Paz Testosterone II 07/2022, v2.0 Blood 07/29/2023 9:08 AM EDT 07/29/2023 9:43 AM EDT Narrative Resulting Agency Comment Spec In Lab Faith Caba MD CHEMISTRY ORDERABLES [facility] [place] [address] * PSA (Ultrasensitive) (07/29/2023 9:08 AM EDT) Prostate Specific Antigen (Ultrasensitive) <0.01 0.00 - 4.00 ng/mL [facility] Comment: PLEASE NOTE: The above reference interval is intended for healthy males with an intact prostate. Values within this reference interval may indicate recurrence in men who have undergone radical prostatectomy. This result was generated using a Kenneth Paz immunoassay. ??Results obtained from other methods or manufacturers cannot be used interchangeably with this method. Blood 07/29/2023 9:08 AM EDT 07/29/2023 9:43 AM EDT Narrative Resulting Agency Comment Spec In Lab Faith Caba MD CHEMISTRY ORDERABLES [facility] [place] [address] * (ABNORMAL) Comprehensive metabolic panel (non-fasting) (07/29/2023 9:08 AM EDT) Glucose 151 65 - 199 mg/dL [facility] Comment:Diabetes: >=200 mg/d L plus symptoms Blood Urea Nitrogen 14 10 - 20 mg/dL [facility] Creatinine 0.82 0.80 - 1.50 mg/dL [facility] Sodium 142 135 - 145 mmol/L [facility] Potassium 4.2 3.5 - 5.0 mmol/L [facility] Comment: Please note: ??Patients with WBC >100,000 may have falsely elevated Potassium levels. ??For accurate Potassium quantification in these patients send serum separator tube (gold top) for subsequent determinations. ??Contact the Clinical Chemistry Laboratory if there are any questions. Chloride 104 98 - 107 mmol/L [facility] Carbon Dioxide 22 22 - 31 mmol/L [facility] Anion Gap 16(H) 5 - 15 mmol/L [facility] Calcium 9.3 8.5 - 10.5 mg/dL [facility] Protein, Total 6.8 6.1 - 8.0 g/dL [facility] Albumin 4.2 3.2 - 5.2 g/dL [facility] Aspartate Aminotransferase 12 0 - 39 unit/L [facility] Alanine Aminotransferase 8 0 - 55 unit/L [facility] Alkaline Phosphatase 137(H) 40 - 130 unit/L [facility] Bilirubin, Total 0.6 0.2 - 1.3 mg/dL [facility] Est Glomerular Filtration Rate 90 >=60 mL/min/1. 73 m?? [facility] Comment: This patient's estimated GFR [...] and symptoms in addition to eGFR. Blood 07/29/2023 9:08 AM EDT 07/29/2023 9:43 AM EDT Narrative Resulting Agency Comment Spec In Lab Faith Caba MD CHEMISTRY ORDERABLES Performing Organization Address City/State/[facility] Co de Phone Number [facility] [place] [address] documented in this encounter Visit Diagnoses Diagnosis Neoplasm of prostate, 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 Gastroesophageal reflux disease with esophagitis, unspecified whether hemorrhage documented in this encounter Care Teams Power Grader Operator Relationship Specialty Start Date End Date Kennedi Shaver MD [address] [place] [address] PCP - General Family Medicine 08/02/20 06/24/24 documented as of this encounter
--- OUTSIDE RECORDS SUMMARY | 2024-09-11 15:20 | XMS_ITS | Encounter Summary ---
Author Organization [facility] [place] [address] Care Team Providers Care Spiral Winding Machine Helper Name Role Phone Kennedi Shaver MD Primary Care Provider [phone] Reason for Visit * Reason Comments Specialty Refill Management Zytiga 500mg tabs Encounter Details Date Type Department Care Team (Late st Contact Info) Description 06/21/2023 Specialty [place] [address] Tuan Gil, TRAFFIC SIGNAL REPAIRER Social History Tobacco Use Types Packs/Day Years [...] as of this encounter Progress Notes * Tuan Gil - 06/21/2023 1:12 PM EDT Clinical Management Plan: Refill Specialty Pharmacy Consultation; Tuan Gil Comprehensive Medication Management (CMM) Chidi Carbone is a 77 y.o. (1945) male who was contacted in regard to a specialty medication refill reminder. Contact made with patient regarding Zytiga. A review of the medication therapy was performed. The medication was refilled as scheduled, and all medication related questions and concerns were addressed. The specialty pharmacy staff will follow up with the patient 5-7 days priorto next refill. Was a change made to the Care Plan: No Allergies and Drug intolerance: No Known Allergies Medication Reconciliation Discrepancies (compared to [facility] med list) No Specialty Pharmacy Refill Questionnaire More data exists 06/21/2023 Refill Questionnaire What is the name of the specialty medication you are refilling? Zytiga 500mg tabs Are you taking any new medications? No Any new medical condition? No Any new allergies? No Any new side effects that are bothersome? No What date will you need this fill by? 06/27/2023 Adherence: Any missed doses? No Patient understands no changes to current drug regimen were made. Tuan Gil 06/21/23 1:13 PM documented in this encounter Plan of Treatment Upcoming Encounters Date Type Department Care Team (Latest Contact Info) Description 09/29/2024 4:30 PM EST Hospital Encounter [place] [address] Lizet Wilkes MD [facility] [place] [address] 09/29/2024 4:30 PM EST - 09/29/2024 5:00 PM EST Surgery [place] [address] Lizet Wilkes MD [facility] [place] [address] EGD, UPPER GI ENDOSCOPY (WRVU 2.09) 11/09/2024 10:00 AM EST Laboratory Appointment Lab at [facility] Hematology Oncology [address] [place] [phone] 11/09/2024 11:00 AM EST Office Visit Hematology [place] [phone] Faith Caba MD [facility] DR HEMATOLOGY [place] [address] 11/09/2024 12:00 PM EST Appointment Hematology [place] [phone] Scheduled Procedures Name Priority Associated Diagnoses Date/Ti [...] on filedocumented in this encounter Care Teams Spiral Winding Machine Helper Relationship Specialty Start Date End Date Kennedi Shaver MD [facility] [address] [place] [address] PCP - General Family Medicine 08/02/20 06/24/24 documented as of this encounter
--- OUTSIDE RECORDS SUMMARY | 2024-09-11 15:20 | XMS_ITS | Encounter Summary ---
Author Organization [facility] [place] [address] Care Team Providers Care Java Programmer Analyst Name Role Phone Kennedi Shaver MD Primary Care Provider [phone] Encounter Details Date Type Department Care Team (Latest Contact Info) Description 07/29/2023 8:58 AM EDT Hospital Encounter Hematology [place] [address] Neoplasm of prostate, 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 Discharge Disposition: Home Social History Tobacco Use Types Packs/Day Years Used Date Smoking Tobacco: Former Cigarettes 1977 Smokeless Tobacco: Never Alcohol Use Standard Drinks/Week Comments Not Currently 14 (1 standard drink = 0.6 oz pu re alcohol) 1 drink a day [facility] Inpatient Questions Answer Date Recorded Does [...] 09/11/2022 09/20/2023 documented as of this encounter Plan of Treatment Upcoming Encounters Date Type Department Care Team (Latest Contact Info) Description 09/29/2024 4:30 PM EST Hospital Encounter [place] [address] Lizet Wilkes MD [facility] GASTROENTER[place]I [place] [address] 09/29/2024 4:30 PM EST - 09/29/2024 5:00 PM EST [place] [address] Lizet Wilkes MD [facility] [place] [place] [address] EGD, UPPER GI ENDOSCOPY (WRVU 2.09) 11/09/2024 10:00 AM EST Laboratory Appointment Lab [place] [facility] [place] On[place] [address] [place] [phone] 11/09/2024 11:00 AM EST Office Visit Hematology [place] [phone] Faith Caba MD [facility] [address] [place] [address] 11/09/2024 12:00 PM EST Appointment Hematology [place] [phone] Scheduled Procedures Name Priority Associated Diagnoses Date/Ti me EGD, UPPER GI ENDOSCOPY (WRVU 2.09) Gastroesophageal reflux disease with esophagitis, unspecified whether hemorrhage 09/29/2024 4:30 PM EST documented as of this encounter Goals Goal Patient Goal Type Associated Problems Recent Progress Patient-Stated? Author [facility] Medication Compliance and Understanding Patient Facing Action Plan Curly Nicolas, [facility] Note: The patient? s goal is to continue positive results of oral chemotherapy by maintaining improved labs PSA or stable scans in clinic for the upcoming year. documented as of this encounter Procedures Procedure Name Priority Date/Time Associated Diagnosis Comments HEMOGRAM Routine 07/29/2023 9:08 AM EDT Neoplasm of prostate, 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 DIFFERENTIAL, AUTOMATED Routine 07/29/2023 9:08 AM EDT Neoplasm of prostate, 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 CBC (WITH DIFF) Routine 07/29/2023 9:08 AM EDT Neoplasm of prostate, 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 TESTOSTERONE, TOTAL Routine 07/29/2023 9 :08 AM EDT Neoplasm of prostate, 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 PSA (ULTRASENSITIVE) Routine 07/29/2023 9:08 AM EDT Neoplasm of prostate, 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 COMPREHENSIVE METABOLIC PANEL Routine 07/29/2023 9:08 AM EDT Neoplasm of prostate, 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 documented in this encounter Results * (ABNORMAL) Differential, Automated (07/29/2023 9:08 AM EDT) Neutrophil % 85.1 % [facility] Neutrophil Absolute 8.97(H) 1.70 - 6.10 x10(3)/mc L [facility] Lymph % 7.3 % [facility] Lymphocytes Abs 0.8(L) 0.9 - 3.2 x10(3)/mc L [facility] Monocyte % 5.5 % [facility] Monocyte Abs 0.6 0.3 - 0.9 x10(3)/mc L [facility] Eos % 1.3 % [facility] Eosinophils Abs 0.1 0.0 - 0.4 x10(3)/mc L [facility] Basophil % 0.4 % [facility] Baso Absolute 0.0 0.0 - 0.1 x10(3)/mc L [facility] Immature Gran % 0.40 % [facility] Comment: Immature granulocytes(IG's)percentage and absolute count will include metamyelocytes, myelocytes, and promyelocytes. Blood smears from CBCs yielding IG's will be scanned manually for concordance. If this scan disagrees with the automated IG or if promyelocytes are noted, a manual differential will be performed. Immature Gran Absolute 0.04 0.00 - 0.04 x10(3)/mc L [facility] Blood 07/29/2023 9:08 AM EDT 07/29/2023 9:43 AM EDT Narrative Resulting Agency Comment Spec In Lab Faith Caba MD HEMATOLOGY ORDERABLE S [facility] [place] [place] [address] * (ABNORMAL) Hemogram (07/29/2023 9:08 AM EDT) White Blood Cell 10.5(H) 4.0 - 9.5 x10(3)/mc L [facility] Red Blood Cell 3.62(L) 4.58 - 5.54 x10(6)/mc L [facility] Hemoglobin 11.0(L) 13.7 - 16.5 g/dL [facility] Hematocrit 33.8(L) 40.5 - 48.5 % [facility] Mean Cell Volume 93.4(H) 82.9 - 93.1 fL [facility] Mean Cell Hemoglobin 30.4 27.5 - 32.1 pg [facility] Mean Cell Hemoglobin Concentration 32.5 32.0 - 35.7 g/dL [facility] Platelet 487(H) 145 - 357 x10(3)/mc L [facility] RDW Standard Deviation 46.6(H) 36.0 - 45.0 fL [facility] RDW coefficient of variation 13.8 11.4 - 13.8 % [facility] Mean Platelet Volume 9.1 7.6 - 12.9 fL [facility] NRBC% auto 0.0 % [facility] NRBC Absolute 0.000 0.000 - 0.000 x10(3)/mc L [facility] Blood 07/29/2023 9:08 AM EDT 07/29/2023 9:43 AM EDT Narrative Resulting Agency Comment Spec In Lab Faith Caba MD HEMATOLOGY ORDERABLE S Performing Organization Address City/[facility]/ZIP Co de Phone Number [facility] [place] [place] [address] * (ABNORMAL) Comprehensive metabolic panel (non-fasting) (07/29/2023 9:08 AM EDT) Glucose 151 65 - 199 mg/dL [facility] Comment:Diabetes: >=200 mg/d L plus symptoms Blood Urea Nitrogen 14 10 - 20 mg/dL [facility] Creatinine 0.82 0.80 - 1.50 mg/dL [facility] Sodium 142 135 - 145 mmol/L [facility] Potassium 4.2 3.5 - 5.0 mmol/L [facility] Comment: Please note: ??Patients with WBC >100,000 may have falsely elevated Potassium levels. ??For accurate Potassium quantification in these patients send serum separator tube (gold top) for subsequent determinations. ??Contact the Clinical Chemistry Laboratory if there are any questions. Chloride 104 98 - 107 mmol/L [facility] Carbon Dioxide 22 22 - 31 mmol/L [facility] Anion Gap 16(H) 5 - 15 mmol/L [facility] Calcium 9.3 8.5 - 10.5 mg/dL [facility] Protein, Total 6.8 6.1 - 8.0 g/dL [facility] Albumin 4.2 3.2 - 5.2 g/dL [facility] Aspartate Aminotransferase 12 0 - 39 unit/L [facility] Alanine Aminotransferase 8 0 - 55 unit/L [facility] Alkaline Phosphatase 137(H) 40 - 130 unit/L [facility] Bilirubin, Total 0.6 0.2 - 1.3 mg/dL [facility] Est Glomerular Filtration Rate 90 >=60 mL/min/1. 73 m?? [facility] Comment: This patient's estimated GFR was [...] Caba MD CHEMISTRY ORDERABLES Performing Organization Address [facility] de Phone Number [facility] [place] [place] [address] * PSA (Ultrasensitive) (07/29/2023 9:08 AM EDT) Prostate Specific Antigen (Ultrasensitive) <0.01 0.00 - 4.00 ng/mL [facility] Comment: PLEASE NOTE: The above reference [...] Caba MD CHEMISTRY ORDERABLES Performing Organization Address [facility] de Phone Number [facility] [place] [place] [address] * (ABNORMAL) Testosterone, total (07/29/2023 9:08 AM EDT) Testosterone <0.12(L) 1.93 - 7.40 ng/mL [facility] Comment: Pediatric Reference Ranges: ? Males [...] Stated reference ranges derived from review of YouTern Paz Testosterone II 07/2022, v2.0 Blood 07/29/2023 9:08 AM EDT 07/29/2023 9:43 AM EDT Narrative Resulting Agency Comment Spec In Lab Faith Caba MD CHEMISTRY ORDERABLES Performing Organization Address City/State/[facility] Co de Phone Number [facility] [place] [place] [address] documented in this encounter Visit Diagnoses Diagnosis Neoplasm of prostate, 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 Gastroesophageal reflux disease with esophagitis, unspecified whether hemorrhage documented in this encounter Care Teams Java Programmer Analyst Relationship Specialty Start Date End Date Kennedi Shaver MD [address] [place] [address] PCP - General Family Medicine 08/02/20 06/24/24 documented as of this encounter
--- OUTSIDE RECORDS SUMMARY | 2024-09-11 15:20 | XMS_ITS | Encounter Summary ---
[place] [address] Care Team Providers Care Youth Specialist Name Role Phone Kennedi Shaver MD Primary Care Provider [phone] Reason for Visit * Reason Onset Date Comments Medication Refill 09/26/2023 Encounter Details Date Type Department Care Team (Late st Contact Info) Description 09/20/2023 Refill [place]ology [place] [address] Faith Caba MD [facility] DR HEMATOLOGY [place] [address] Neoplasm of prostate, 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 Social History Tobacco Use Types Packs/Day Years Used Date Smoking Tobacco: Former Cigarettes 1977 Smokeless Tobacco: Never Alcohol Use Standard Drinks/Week Comments Not Currently 14 (1 standard drink = 0.6 oz pu re alcohol) 1 drink a day [facility] Inpatient Questions Answer Date Recorded [...] Telephone Encounter - Patricia James RN - 09/26/2023 8:29 AM EST Oral Chemotherapy Rx Refill Note (No Rx Change) 09/26/2023 Chidi Carbone, 1945 Prescription for oral chemotherapy zytiga was written by provider without any changes and e-prescribed to pharmacy to be filled. documented in this encounter Plan of Treatment Upcoming Encounters Date Type Department Care Team (Latest Contact Info) Description 09/29/2024 4:30 PM EST Hospital Encounter Gastroenterology at [place] [phone] Lizet Wilkes MD [facility] [place] [address] 09/29/2024 4:30 PM EST - 09/29/2024 5:00 PM EST [place] [phone] Lizet Wilkes MD [facility] [place] [address] EGD, UPPER GI ENDOSCOPY (WRVU 2.09) 11/09/2024 10:00 AM EST Laboratory Appointment Lab [place] [facility] [place] [facility] [place] [address] [place] [phone] 11/09/2024 11:00 AM EST Office Visit [place] [phone] Faith Caba MD [facility] DR HEMATOLOGY [place] [address] 11/09/2024 12:00 PM EST Appointment [place] [phone] Scheduled Procedures Name Priority Associated Diagnoses Date/Ti me EGD, UPPER GI ENDOSCOPY (WRVU 2.09) Gastroesophageal reflux disease with esophagitis, unspecified whether hemorrhage 09/29/2024 4:30 PM EST documented as of this encounter Goals Goal Patient Goal Type Associated Problems Recent Progress Patient-Stated? Author [facility] Medication Compliance and Understanding Patient Facing Action Plan Curly Nicolas, [facility] Note: The patient? s goal [...] hemorrhage documented in this encounter Care Teams Youth Specialist Relationship Specialty Start Date End Date Kennedi Shaver MD [facility] [address] [place] [address] PCP - General Family Medicine 08/02/20 06/24/24 documented as of this encounter
--- OUTSIDE RECORDS SUMMARY | 2024-09-11 15:20 | XMS_ITS | Encounter Summary ---
Author Organization [facility] [address] Care Team Providers Care Resource Paraprofessional Name Role Phone Kennedi Shaver MD Primary Care Provider [phone] Reason for Visit * Reason Comments Follow-up Encounter Details Date Type Department Care Team (Late st Contact Info) Description 07/29/2023 10:30 AM EDT Office Visit Hematology [place] [address] Faith Caba MD [facility] DR HEMATOLOGY [place] [address] Neoplasm of prostate, 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 Social History Tobacco Use Types Packs/Day Years Used Date Smoking Tobacco: Former Cigarettes 1977 Smokeless Tobacco: Never Alcohol Use Standard Drinks/Week Comments Not Currently 14 (1 standard drink = 0.6 oz pu re alcohol) 1 drink a day [facility] Inpatient Questions Answer Date Recorded [...] Sign Reading Time Taken Comments Blood Pressure 139/68 07/29/2023 10:10 AM EDT Pulse 86 07/29/2023 10:10 AM EDT Temperature 35.7 ??C (96.3 ??F) 07/29/2023 1 0:10 AM EDT Respiratory Rate 18 07/29/2023 10:1 0 AM EDT Oxygen Saturation 97% 07/29/2023 10: 10 AM EDT Inhaled Oxygen Concentration - - Weight 81.6 kg (179 lb 14.3 oz) 023 10:10 AM EDT Height 179.9 cm (5' 10.83) 07/29/2023 10:10 AM EDT Body Mass Index 25.21 07/29/2023 10:10 AM EDT documented in this encounter Progress Notes * Faith Caba MD - 07/29/2023 10:30 AM EDT Images from the original note were not included. [facility] Medicine Medical Oncology [place] [phone] ONCOLOGY FOLLOW UP VISIT DIAGNOSIS: Metastatic prostate [...] Endo HPI: Chidi is here for f/u. In the interim had planned left knee surgery. Feels the recovery is better than when he had the first right one done six months ago. Has intermittent L side occipital pain, no clear trigger and resolves on its own. No skin changes No other pain. Minimal hot flushes. REVIEW OF SYSTEMS: As noted in HPI; all other systems were reviewed and found to be negative. PAST MEDICAL HISTORY: 1. As above 2. GERD and Sol's esophagus S/p Alli Fundoplication 3. ELevated fasting glusoce 4. S/p distant appendectomy 5. S/p tonsilectomy 6. Hypertension MEDS: Medications 07/29/23 1010 Medication Sig Taking? acetaminophen (Tylenol) 500 mg [...] 75 mg by mouth every evening. Yes abiraterone (Zytiga) 500 mg Tablet Take [...] Reviewed - no change PHYSICAL EXAM: BP 139/68 (Patient Position: Sitting) Pulse 86 Temp 35.7 ??C (96.3 ??F) (Temporal) Resp 18 Ht 179.9 cm (5' 10.83) Wt 81.6 kg (179 lb 14.3 oz) SpO2 97% BMI 25.21 kg/m?? ECOG PS: 0 General: NAD NCAT No cerval nodes RRR CTAB No rash No spinal tenderness to palpation Musculoskeletal: Ambulatory with cane. No palpable mass or tenderness at site on ocipital pain (Just medial to and above insertion of SCM) Neurological: Alert & oriented, no focal deficits. Psych: Conversant, normal mood and affect. LABS: Hb 11 otherwise unremarkable CMP normal PSA undetectable IMAGING STUDIES: No new ASSESSMENT AND PLAN: 77 y.o. M has metastatic prostate cancer with extensive disease involving nodes and bones. He is oncombination lupron+abiraterone in the first line therapy since Apr 2017. Clinically doing well, without any sx to suggest disease progression. He is recovering from knee surgery Tolerating tx with manageable mild hot flushes that are tolerable to him PSA remains undetectable Labs reviewed and ok to cont ADT + Iveth/Pred Hb likely related to recent surgery - we will monitor Osteoporosis: cont Ca and vit D F/u in 3 months for next labs/lupron/clinic [...] 4:30 PM EST Hospital Encounter [place] [address] Lizet Wilkes MD [facility] [place] [address] 09/29/2024 4:30 PM EST - 09/29/2024 5:00 PM EST Surgery Gastroenterology at [place] [phone] Lizet Wilkes MD [facility] [place] [address] EGD, UPPER GI ENDOSCOPY (WRVU 2.09) 11/09/2024 10:00 AM EST Laboratory Appointment Lab at [facility] [place] [address] [place] [phone] 11/09/2024 11:00 AM EST Office Visit Hematology [place] [phone] Faith Caba MD [facility] DR [place] [address] 11/09/2024 12:00 PM EST Appointment Hematology [place] [phone] Scheduled Procedures Name Priority Associated Diagnoses Date/Ti me EGD, UPPER GI ENDOSCOPY (WRVU 2.09) Gastroesophageal reflux disease with esophagitis, unspecified whether hemorrhage 09/29/2024 4:30 PM EST documented as of this encounter Goals Goal Patient Goal Type Associated Problems Recent Progress Patient-Stated? Author [facility] [place] Medication Compliance and Understanding Patient Facing Action Plan Curly Nicolas, [facility] Note: The patient? s goal is to continue positive results of oral chemotherapy by maintaining improved labs PSA or stable scans in clinic for the upcoming year. documented as of this encounter Results * (ABNORMAL) Testosterone, total (10/29/2023 9:39 AM EST) Testosterone <0.12(L) 1.93 - 7.40 ng/mL [facility] Comment: Pediatric Reference Ranges: ? [...] Kenneth Paz Testosterone II 07/2022, v2.0 Blood 10/29/2023 9:39 AM EST 10/29/2023 9:44 AM EST Narrative Resulting Agency Comment Spec In Lab Faith Caba MD CHEMISTRY ORDERABLES [facility] [place] [address] * PSA (Ultrasensitive) (10/29/2023 9:39 AM EST) Prostate Specific Antigen (Ultrasensitive) <0.01 0.00 - 4.00 ng/mL [facility] Comment: PLEASE NOTE: The above reference interval is intended for healthy males with an intact prostate. Values within this reference interval may indicate recurrence in men who have undergone radical prostatectomy. This result was generated using a Kenneth Paz immunoassay. ??Results obtained from other methods or manufacturers cannot be used interchangeably with this method. Blood 10/29/2023 9:39 AM EST 10/29/2023 9:44 AM EST Narrative Resulting Agency Comment Spec In Lab Faith Caba MD CHEMISTRY ORDERABLES [facility] [place] [address] * (ABNORMAL) Comprehensive metabolic panel (non-fasting) (10/29/2023 9:39 AM EST) Glucose 117 65 - 199 mg/dL [facility] Comment:Diabetes: >=200 mg/d L plus symptoms Blood Urea Nitrogen 15 10 - 20 mg/dL [facility] Creatinine 0.76(L) 0.80 - 1.50 mg/dL [facility] Sodium 143 135 - 145 mmol/L [facility] Potassium 4.1 3.5 - 5.0 mmol/L [facility] Comment: Please note: ??Patients with WBC >100,000 may have falsely elevated Potassium levels. ??For accurate Potassium quantification in these patients send serum separator tube (gold top) for subsequent determinations. ??Contact the Clinical Chemistry Laboratory if there are any questions. Chloride 105 98 - 107 mmol/L [facility] Carbon Dioxide 25 22 - 31 mmol/L [facility] Anion Gap 13 5 - 15 mmol/L [facility] Calcium 9.4 8.5 - 10.5 mg/dL [facility] Protein, Total 6.9 6.1 - 8.0 g/dL [facility] Albumin 4.5 3.2 - 5.2 g/dL [facility] Aspartate Aminotransferase 15 0 - 39 unit/L [facility] Alanine Aminotransferase 8 0 - 55 unit/L [facility] Alkaline Phosphatase 110 40 - 130 unit/L [facility] Bilirubin, Total 0.6 0.2 - 1.3 mg/dL [facility] Est Glomerular Filtration Rate 92 >=60 mL/min/1. 73 m?? [facility] Comment: This patient's estimated GFR [...] and symptoms in addition to eGFR. Blood 10/29/2023 9:39 AM EST 10/29/2023 9:44 AM EST Narrative Resulting Agency Comment Spec In Lab Faith Caba MD CHEMISTRY ORDERABLES [facility] [place] [address] documented in this encounter Visit Diagnoses Diagnosis Neoplasm of prostate, 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 Gastroesophageal reflux disease with esophagitis, unspecified whether hemorrhage documented in this encounter Care Teams Resource Paraprofessional Relationship Specialty Start Date End Date Kennedi Shaver MD [address] [place] [address] PCP - General Family Medicine 08/02/20 06/24/24 documented as of this encounter
--- OUTSIDE RECORDS SUMMARY | 2024-09-11 15:20 | XMS_ITS | Encounter Summary ---
[place] [address] Care Team Providers Care Laboratory Clerk Name Role Phone Kennedi Shaver MD Primary Care Provider [phone] Reason for Visit * Reason Comments Medication Refill Patient Education Encounter Details Date Type Department Care Team (Late st Contact Info) Description 10/03/2023 Specialty [place] [address] Katalina Barney, [facility] Social History Tobacco Use Types Packs/Day [...] as of this encounter Progress Notes * Katalina Barney RPH - 10/03/2023 12:36 PM EST Specialty Pharmacy Consultation; Katalina Barney RPH Comprehensive Medication Management (CMM): Specialty Consult, Opt Out Chidi Carbone Diagnosis: 1. 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 Chidi Carbone is a 77 y.o. (1945) malewho was contacted in regard to specialty medication. Spoke with patient regarding abiraterone. A review of the medication therapy was performed. The medication was refilled as scheduled, and all medication related questions and concerns were addressed. The specialty pharmacy staff will follow up with the patient 7 days prior to next refill. Is the patient willing to proceed with the Clinical Assessment? No Summary and Recommendations: The patient was feeling well today and not experiencing any side effects such as nausea, rash, or edema. Med list reviewed with no major interactions identified. The patient is aware of the importance of lab follow up and infection prevention precautions as well as adherence to treatment. The patient was instructed to notify the clinic of any upcoming procedures or new medications and OTC products . Resources are available to the patient from the cancer center such as commutator inspector consultation or group social worker. Administration, allergies, dosage, safe storage reviewed. The pharmacy's contact information and operating hours with on-call services were given to the patient both verbally and in writing. 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 Melissa) Z96.651 Medications Reviewed: Yes Medications reconciled: No Allergies Reviewed: Yes Allergies reconciled: No Pharmacist follow-up needed: No Informed patient of specialty pharmacy services: Yes (Optional) Patient unenrolls from routine specialty pharmacy services (Y/N): Yes (Optional) If yes, services unenrolled from: Consults Welcome Packet and Rights and Responsibilities: Patient provided welcome packet/rights and responsibilities: Yes Date Confirmed: 11/14/22 Confirmation: Verbal -Patient is aware a licensed pharmacist is available 24 hours a day, 7 days a week to discuss medication-related questions or concerns: Yes -Patient verbalizes understanding of the common side effect profile of their medication. The patient is able to call 911 or seek urgent care if signs/symptoms of allergy or harmful adverse reactions occur: Yes Patient understands no changes to current drug regimen were made at the appointment and that the pharmacist is providing recommendations (summary located at top of note) for provider review and follow up. Katalina Barney RPH 10/03/2023 11:51 AM documented in this encounter Plan of Treatment Upcoming Encounters Date Type Department Care Team (Latest Contact Info) Description 09/29/2024 4:30 PM EST Hospital Encounter [place] [address] Lizet Wilkes MD [facility] [place] [address] 09/29/2024 4:30 PM EST - 09/29/2024 5:00 PM EST [place] [address] Lizet Wilkes MD [facility] [place] [address] EGD, UPPER GI ENDOSCOPY (WRVU 2.09) 11/09/2024 10:00 AM EST Laboratory Appointment Lab [place] [facility] [place] [address] [place] [phone] 11/09/2024 11:00 AM EST Office Visit Hematology [place] [address] Faith Caba MD [facility] DR HEMATOLOGY [place] [address] 11/09/2024 12:00 PM EST Appointment Hematology [place] [address] Scheduled Procedures Name Priority Associated Diagnoses Date/Ti ar EGD, UPPER GI ENDOSCOPY (WRVU 2.09) Gastroesophageal reflux disease with esophagitis, unspecified whether hemorrhage 09/29/2024 4:30 PM EST documented as of this encounter Goals Goal Patient Goal Type Associated Problems Recent Progress Patient-Stated? Author [facility] Medication Compliance and Understanding Patient Facing Action Plan Curly Nicolas, [facility] Note: The patient? s goal is [...] hemorrhage documented in this encounter Care Teams Laboratory Clerk Relationship Specialty Start Date End Date Kennedi Shaver MD [address] [place] [address] PCP - General Family Medicine 08/02/20 06/24/24 documented as of this encounter
--- OUTSIDE RECORDS SUMMARY | 2024-09-11 15:20 | XMS_ITS | Encounter Summary ---
Author Organization [facility] [place] [address] Care Team Providers Care Dry Press Operator Name Role Phone Kennedi Shaver MD Primary Care Provider [phone] Encounter Details Date Type Department Care Team (Late st Contact Info) Description 06/10/2023 Orders Only Hematology/Oncology at [address] [phone] Donna Bermudez P, ELECTRIC DISTRIBUTION CHECKER Social History Tobacco Use Types Packs/Day Years [...] 4:30 PM EST Hospital Encounter Gastroenterology at [place] [phone] Lizet Wilkes MD [facility] [place] [address] 09/29/2024 4:30 PM EST - 09/29/2024 5:00 PM EST Surgery Gastroenterology at [place] [phone] Lizet Wilkes MD [facility] [place] [place] [address] EGD, UPPER GI ENDOSCOPY (WRVU 2.09) 11/09/2024 10:00 AM EST Laboratory Appointment [place] [facility] [address] [place] [phone] 11/09/2024 11:00 AM EST Office Visit Hematology [place] [phone] Faith Caba MD [facility] [place] [address] 11/09/2024 12:00 PM EST Appointment Hematology and Oncology at [place] [phone] Scheduled Procedures Name Priority Associated Diagnoses Date/Ti [...] on filedocumented in this encounter Care Teams Dry Press Operator Relationship Specialty Start Date End Date Kennedi Shaver MD [address] [facility] [place] [address] PCP - General Family Medicine 08/02/20 06/24/24 documented as of this encounter
--- OUTSIDE RECORDS SUMMARY | 2024-09-11 15:20 | XMS_ITS | Encounter Summary ---
Author Organization [facility] [place] [address] Care Team Providers Care Job Site Superintendent Name Role Phone Kennedi Shaver MD Primary Care Provider [phone] Encounter Details Date Type Department Care Team (Late st Contact Info) Description 09/25/2023 Orders Only [place]ematology [place] [address] Conor Bishop MD [facility] DR HEMATOLOGY [place] [address] Social History Tobacco Use Types Packs/Day Years Used Date Smoking Tobacco: Former Cigarettes 1977 Smokeless Tobacco: Never Alcohol Use Standard Drinks/Week Comments Not Currently 14 (1 standard drink = 0.6 oz pu re alcohol) 1 drink a day [facility] Inpatient Questions Answer Date Recorded [...] 4:30 PM EST Hospital Encounter Gastroenterology at [place] [phone] Lizet Wilkes MD [facility] [place] [address] 09/29/2024 4:30 PM EST - 09/29/2024 5:00 PM EST Surgery [place] [phone] Lizet Wilkes MD [facility] [place] [address] EGD, UPPER GI ENDOSCOPY (WRVU 2.09) 11/09/2024 10:00 AM EST Laboratory Appointment Lab [place] [facility] [place] [address] [place] [phone] 11/09/2024 11:00 AM EST Office Visit Hematology [place] [phone] Faith Caba MD [facility] DR HEMATOLOGY [place] [address] 11/09/2024 12:00 PM EST Appointment Hematology [place] [phone] Scheduled Procedures Name Priority Associated Diagnoses Date/Ti me EGD, UPPER GI ENDOSCOPY (WRVU 2.09) Gastroesophageal reflux disease with esophagitis, unspecified whether hemorrhage 09/29/2024 4:30 PM EST documented as of this encounter Goals Goal Patient Goal Type Associated Problems Recent Progress Patient-Stated? Author DH [place] Medication Compliance and Understanding Patient Facing Action Plan Curly Nicolas, [facility] Note: The patient? s goal is to continue positive results of oral chemotherapy by maintaining improved labs PSA or stable scans in clinic for the upcoming year. documented as of this encounter Visit Diagnoses Not on filedocumented in this encounter Care Teams Job Site Superintendent Relationship Specialty Start Date End Date Kennedi Shaver MD [address] [place] [address] PCP - General Family Medicine 08/02/20 06/24/24 documented as of this encounter
--- OUTSIDE RECORDS SUMMARY | 2024-09-11 15:20 | XMS_ITS | Encounter Summary ---
[place] [address] Care Team Providers Care Windshield Technician Name Role Phone Kennedi Shaver MD Primary Care Provider [phone] Reason for Visit * Reason Comments Specialty Refill Management Encounter Details Date Type Department Care Team (Late st Contact Info) Description 04/19/2023 Specialty [place] [address] Radha Larson [facility] Social History Tobacco Use Types Packs/Day Years Used Date Smoking Tobacco: Former Cigarettes 1977 Smokeless Tobacco: Never Alcohol Use Standard Drinks/Week Comments Not Currently 14 (1 standard drink = 0.6 oz pu re alcohol) 1 drink a day [facility] Inpatient Questions Answer Date Recorded Does Anyone [...] this encounter Progress Notes * Radha Larson Yan - 04/19/2023 2:19 PM EDT Clinical Management Plan: Refill Specialty Pharmacy Consultation; Radha Larson [facility] Comprehensive Medication Management (CMM) Chidi Carbone is [...] Known Allergies Medication Reconciliation Discrepancies (compared to [facility] med list) No Specialty Pharmacy Refill Questionnaire More data exists 04/19/2023 Refill Questionnaire What is the name of the specialty medication you are refilling? Zytiga Are you taking any new medications? No Any new medical condition? No Any new allergies? No Any new side effects that are bothersome? No What date will you need this fill by? 04/26/2023 Adherence: Any missed doses? No Patient understands no changes to current drug regimen were made. Radha Larson Yan 04/19/23 2:20 PM documented in this encounter Plan of Treatment Upcoming Encounters Date Type Department Care Team (Latest Contact Info) Description 09/29/2024 4:30 PM EST Hospital En[place] [address] Lizet Wilkes MD [facility] [place] [address] 09/29/2024 4:30 PM EST - 09/29/2024 5:00 PM EST [place] [address] Lizet Wilkes MD [facility] [place] [address] EGD, UPPER GI ENDOSCOPY (WRVU 2.09) 11/09/2024 10:00 AM EST Laboratory Appointment Lab at [facility] Hematology Oncology [address] [place] [phone] 11/09/2024 11:00 AM EST Office Visit [place] [phone] Faith Caba MD [facility] DR [place] [address] 11/09/2024 12:00 PM EST Appointment Hematology [place] [phone] Scheduled Procedures Name Priority Associated Diagnoses Date/Ti [...] on filedocumented in this encounter Care Teams Windshield Technician Relationship Specialty Start Date End Date Kennedi Shaver MD [facility] [address] [place] [address] PCP - General Family Medicine 08/02/20 06/24/24 documented as of this encounter
--- OUTSIDE RECORDS SUMMARY | 2024-09-11 15:20 | XMS_ITS | Encounter Summary ---
[place] [address] Care Team Providers Care Hook And Eye Machine Operator Name Role Phone Kennedi Shaver MD Primary Care Provider [phone] Reason for Visit * Reason Comments Specialty Pharmacy Review Zytiga 500mg t ablet Encounter Details Date Type Department Care Team (Late st Contact Info) Description 07/29/2023 Specialty [place] [address] Deborah Soares, ROOM CLERK Social History Tobacco Use Types Packs/Day Years Used Date Smoking Tobacco: Former Cigarettes 1977 Smokeless Tobacco: Never Alcohol Use Standard Drinks/Week Comments Not Currently 14 (1 standard drink = 0.6 oz pu re alcohol) 1 drink a day [facility] Inpatient Questions Answer Date Recorded Does [...] this encounter Progress Notes * Deborah Soares - 07/29/2023 11:59 PM EDT The [facility] has completed a benefits investigation for Chidi Carbone to review their eligibility to fill at [facility]. Per patient's medication list they are prescribedZytiga 500mg tablet and the medication is currently filled through the [facility] The patient is currently filling the medication through Specialty Pharmacy with a $0 copay documented in this encounter Plan of Treatment Upcoming Encounters Date Type Department Care Team (Latest Contact Info) Description 09/29/2024 4:30 PM EST Hospital [place] [phone] Lizet Wilkes MD [facility] [place] [address] 09/29/2024 4:30 PM EST - 09/29/2024 5:00 PM EST [place] [phone] Lizet Wilkes MD [facility] [place] [address] EGD, UPPER GI ENDOSCOPY (WRVU 2.09) 11/09/2024 10:00 AM EST Laboratory Appointment Lab at [facility] Hematology Oncology [address] [place] [phone] 11/09/2024 11:00 AM EST Office Visit [place] [phone] Faith Caba MD [facility] DR HEMATOLOGY [place] [address] 11/09/2024 12:00 PM EST Appointment [place]ology [place] [address] Scheduled Procedures Name Priority Associated Diagnoses Date/Ti [...] on filedocumented in this encounter Care Teams Hook And Eye Machine Operator Relationship Specialty Start Date End Date Kennedi Shaver MD [facility] [address] [place] [address] PCP - General Family Medicine 08/02/20 06/24/24 documented as of this encounter
--- OUTSIDE RECORDS SUMMARY | 2024-09-11 15:20 | XMS_ITS | Encounter Summary ---
Author Organization [facility] Address [facility] [place] [address] Care Team Providers Care Eating Disorder Specialist Name Role Phone Kennedi Shaver MD Primary Care Provider [phone] Reason for Visit * Reason Comments Follow Up Surgery DOS: 12-19-22 Right T STACIE Melissa Encounter Details Date Type Department Care Team (Latest Contact Info) Description 04/11/2023 4:30 PM EDT Office [place] [address] Shi Sosa, PA [facility] DR [place] [address] S/P total knee arthroplasty, right; Primary osteoarthritis of both knees Social History Tobacco Use Types Packs/Day Years Used Date Smoking Tobacco: Former Cigarettes 1977 Smokeless Tobacco: Never Alcohol Use Standard Drinks/Week Comments Not Currently 14 (1 standard drink = 0.6 oz pu re alcohol) 1 drink a day [facility] Inpatient Questions Answer Date Recorded Does [...] - - Weight 78 kg (172 lb) 04/11/2023 4:25 PM EDT Height 179.1 cm (5' 10.5) 04/11/2023 4:25 PM ED T Body Mass Index 24.33 04/11/2023 4:25 PM EDT documented in this encounter Progress Notes * Shi Sosa PA - 04/11/2023 4:30 PM EDT Arthroplasty/Orthopaedic History: R TKA by Dr. Melissa 11/2022 HPI: Chidi Carbone is a very pleasant 77 y.o. year-old male and is now 3.5 months post right total knee replacement. The patient has been doing well and is progressing. Pain is controlled without any medications.. No fevers, chills, nausea, vomiting, or symptoms of infection. Chidi has been ambulating with no assistive device and a cane and finished working with PT. He is not taking narcotic pain medicine. R TKA 11/2021. He is doing well. Finished with cane. Knee is slightly sore after a long day. Taking tylenol prn. Finished PT. Getting back to his normal activities. Stiff in the morning. Better after exercises. Starting stationary bike at gym. 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 ROS: Denies: fever, chills, night sweats, nausea, or vomiting Ht 179.1 cm (5' 10.5) Wt 78 kg (172 lb) BMI 24.33 kg/m?? Physical Exam: Well-appearing male in no acute distress. Alert and Oriented x 3 and answers all questions appropriately. The incision is well healed, with no signs of infection. Post Op Right Knee Exam: Knee ROM: Extension:0 Flexion: 120 Alignment: 0-4 degrees Neutral Stability: A/P Translation <5mm. Varus <5mm Valgus <5mm Extension La degrees or less Patella Tracking: Normal Pulses Palpable: Right PT: Yes Right DP: did not test Motor/Sensory: Distal Motor: Normal Distal Sensory: Normal Quadriceps Strength: 4 X-RAYS: Past x-rays show a well-placed right knee prosthesis with no evidence of fracture, subsidence, loosening, or periprosthetic complication. Severe narrowing left medial joint space. Questionnaire Responses: 07/19/2022 1:59 PM [facility] Postop Visit KOOS JR Scores 50.01 07/19/2022 1:59 PM Orthopeadics [facility] Response KOOS JR Scores 50.01 07/19/2022 1:59 PM Spine [facility] Response KOOS JR Scores 50.01 ASSESSMENT/PLAN: Mr. Carbone is a 77 y.o. year old male status post right total knee replacement. Doing well postoperatively. Getting back to normal activities. Reassuring exam and history, xrays last time reassuring. Continue weightbearing as tolerated and working on range of motion. We will see him back in 9 months for repeat examination. New X-rays will be needed at that time. Patient may return to normal activities as his pain and function allow. Planning for L TKA Melissa 06/2023 at the [facility]. Sister who lives nearby will help him for 10 days, then his daughter will bring him back up to [place]. Wants HHPT again and I told him to call our office after surgery. Declined injection today because he wasn't sure of his exact surgery date and we discussed 3 month delay after injection. According to the AAOS Appropriate Use Criteria we do recommend antibiotic use prior to dental procedures for Chidi. Prostate cx. Discussed together. antibiotic: Amoxicillin (50mg/kg, maximum 2 gm) 1 hour prior to dental work; dose: 2 grams If Chidi has any changes in health status we recommend he contact our office prior to dental procedures for updated recommendations Signed: ROSA Ulloa 04/11/2023 documented in this encounter Plan of Treatment Upcoming Encounters Date Type Department Care Team (Latest Contact Info) Description 09/29/2024 4:[address] [facility] Hospital [place] [phone] [facility] [place] [address] 09/29/2024 4:30 PM EST - 09/29/2024 5:00 PM EST Surgery Gastroenterology at [place] [phone] [facility] [place] [address] EGD, UPPER GI ENDOSCOPY (WRVU 2.09) 11/09/2024 10:00 AM EST Laboratory Appointment Lab [place] [facility] [place] [address] [place] [address] [phone] 11/09/2024 11:00 AM EST Office Visit Hematology and Oncology at [place] [phone] [facility] [address] [place] [address] 11/09/2024 12:00 PM EST Appointment Hematology and Oncology at [place] [phone] Scheduled Procedures Name Priority Associated Diagnoses Date/Ti me EGD, UPPER GI ENDOSCOPY (WRVU 2.09) Gastroesophageal reflux disease with esophagitis, unspecified whether hemorrhage 09/29/2024 4:30 PM EST documented as of this encounter Goals Goal Patient Goal Type Associated Problems Recent Progress Patient-Stated? Author [facility] Medication Compliance and Understanding Patient Facing Action Plan Curly Nicolas, [facility] Note: The patient? s goal is to continue positive results of oral chemotherapy by maintaining improved labs PSA or stable scans in clinic for the upcoming year. documented as of this encounter Visit Diagnoses Diagnosis S/P total knee arthroplasty, right Primary osteoarthritis of both knees Primary localized osteoarthrosis, lower leg Gastroesophageal reflux disease with esophagitis, unspecified whether hemorrhage documented in this encounter Care Teams Eating Disorder Specialist Relationship Specialty Start Date End Date Kennedi Shaver MD [address] [place] [address] PCP - General Family Medicine 08/02/20 06/24/24 documented as of this encounter
--- OUTSIDE RECORDS SUMMARY | 2024-09-11 15:20 | XMS_ITS | Encounter Summary ---
Author Organization [facility] [place] [address] Care Team Providers Care Safety Physician Name Role Phone Kennedi Shaver MD Primary Care Provider [phone] Encounter Details Date Type Department Care Team (Latest Contact Info) Description 04/11/2023 Travel Social History Tobacco Use Types Packs/Day [...] (Latest Contact Info) Description 09/29/2024 4:30 PM [facility] Encounter [place] [phone] Lizet Wilkes MD [facility] [place] [address] 09/29/2024 4:30 PM EST - 09/29/2024 5:00 PM EST Surgery [place] [address] Lizet Wilkes MD [facility] [place] [address] EGD, UPPER GI ENDOSCOPY (WRVU 2.09) 11/09/2024 10:00 AM EST Laboratory Appointment Lab at [facility] Hematology Oncology [address] [place] [phone] 11/09/2024 11:00 AM EST Office Visit Hematology [place] [phone] Faith Caba MD [facility] DR [place] [address] 11/09/2024 12:00 PM EST Appointment Hematology [place] [phone] Scheduled Procedures Name Priority Associated Diagnoses Date/Ti me EGD, UPPER GI ENDOSCOPY (WRVU 2.09) Gastroesophageal reflux disease with esophagitis, unspecified whether hemorrhage 09/29/2024 4:30 PM EST documented as of this encounter Goals Goal Patient Goal Type Associated Problems Recent Progress Patient-Stated? Author [facility] Medication Compliance and Understanding Patient Facing Action Plan Curly Nicolas, [facility] Note: The patient? s goal is to continue positive results of oral chemotherapy by maintaining improved labs PSA or stable scans in clinic for the upcoming year. documented as of this encounter Visit Diagnoses Not on filedocumented in this encounter Care Teams Safety Physician Relationship Specialty Start Date End Date Kennedi Shaver MD [facility] [address] [place] [address] PCP - General Family Medicine 08/02/20 06/24/24 documented as of this encounter
--- OUTSIDE RECORDS SUMMARY | 2024-09-11 15:20 | XMS_ITS | Encounter Summary ---
[place] [address] Care Team Providers Care Valve Liner Rubber Name Role Phone Kennedi Shaver MD Primary Care Provider [phone] Reason for Referral * Consultation (ARNULFO) - Closed Specialty Diagnoses / Procedures Referred By Blaine peralta Referred To Contact Gastroenterology Diagnoses Polyp of colon, unspecified part of colon, unspecified type History of GI diverticular bleed Sol's esophagus without dysplasia Procedures Colonoscopy Sedation: IV Sedation TImeframe: within 6 Weeks -- C. Indication: Surveillance This procedure should be performed with: Any Endoscopist Kennedi Shaver MD [address] [place] [address] [facility] Endoscopy [address] [place] [address] Referral ID Status Reason Start Date Expiration Date V isits Requested Visits Authorized [id number] Closed Consult, Test & Treat PCP Updated and/or Approved 05/30/2023 05/29/2024 6 6 Encounter Details Date Type Department Care Team (Latest Contact Info) Description 05/30/2023 Transcribe Orders eDH Incoming Referrals [phone] Kennedi Shaver MD [facility] [address] [place] [address] Polyp of colon, unspecified part of colon, unspecified type; History of GI diverticular bleed; Sol's esophagus without dysplasia Social History Tobacco Use Types Packs/Day Years Used Date Smoking Tobacco: Former Cigarettes 1977 Smokeless Tobacco: Never Alcohol Use Standard Drinks/Week Comments Not Currently 14 (1 standard drink = 0.6 oz pu re alcohol) 1 drink a day [facility] Inpatient Questions Answer Date Recorded Does Anyone [...] 4:30 PM EST Hospital En[place] [phone] Lizet Wilkes MD [facility] [place] [address] 09/29/2024 4:30 PM EST - 09/29/2024 5:00 PM EST [place] [phone] Lizet Wilkes MD [facility] [place] [address] EGD, UPPER GI ENDOSCOPY (WRVU 2.09) 11/09/2024 10:00 AM EST Laboratory Appointment Lab at [facility] Hematology Oncology [address] [place] [phone] 11/09/2024 11:00 AM EST Office Visit Hematology [place] [address] Faith Caba MD [facility] [place] [address] 11/09/2024 12:00 PM EST Appointment Hematology [place] [address] Scheduled Procedures Name Priority Associated Diagnoses Date/Ti ca EGD, UPPER GI ENDOSCOPY (WRVU 2.09) Gastroesophageal reflux disease with esophagitis, unspecified whether hemorrhage 09/29/2024 4:30 PM EST Scheduled Referrals Name Type Priority Associated Diagnoses Order Schedule Referral to Gastroenterology Outpatient Referral Routine Polyp of colon, unspecified part of colon, unspecified type History of GI diverticular bleed Sol's esophagus without dysplasia Ordered: 05/30/2023 documented as of this encounter Goals Goal Patient Goal Type Associated Problems Recent Progress Patient-Stated? Author [facility] Medication Compliance and Understanding Patient Facing Action Plan Curly Nicolas, [facility] Note: The patient? s goal is to continue positive results of oral chemotherapy by maintaining improved labs PSA or stable scans in clinic for the upcoming year. documented as of this encounter Visit Diagnoses Diagnosis Polyp of colon, unspecified part of colon, unspecified type History of GI diverticular bleed Personal history of other diseases of digestive system Sol's esophagus without dysplasia Sol's esophagus Gastroesophageal reflux disease with esophagitis, unspecified whether hemorrhage documented in this encounter Care Teams Valve Liner Rubber Relationship Specialty Start Date End Date Kennedi Shaver MD [address] [place] [address] PCP - General Family Medicine 08/02/20 06/24/24 documented as of this encounter
--- OUTSIDE RECORDS SUMMARY | 2024-09-11 15:20 | XMS_ITS | Encounter Summary ---
Author Organization [facility] [place] [address] Care Team Providers Care Plaster Foreman Name Role Phone Kennedi Shaver MD Primary Care Provider [phone] Encounter Details Date Type Department Care Team (Latest Contact Info) Description 01/28/2023 1:30 PM EDT TH Visit (TeleHealth) [place] [address] Stephy Nelson MD [facility] [place] [address] PATIENT NOT SEEN Social History Tobacco Use Types Packs/Day Years Used Date Smoking Tobacco: Former Cigarettes 1 1977 Smokeless Tobacco: Never Alcohol Use Standard Drinks/Week Comments Not Currently 14 (1 standard drink = 0.6 oz pu re alcohol) IPV Inpatient Questions Answer Date Recorded Does [...] as of this encounter Progress Notes * Stephy Nelson MD - 01/28/2023 1:30 PM EDT This patient was not seen in this encounter. documented in this encounter Plan of Treatment Upcoming Encounters Date Type Department Care Team (Latest Contact Info) Description 09/29/2024 4:30 PM EST Hospital Encounter [place] [address] Lizet Wilkes MD [facility] [place] [address] 09/29/2024 4:30 PM EST - 09/29/2024 5:00 PM EST [place] [address] Lizet Wilkes MD [facility] [place] [address] EGD, UPPER GI ENDOSCOPY (WRVU 2.09) 11/09/2024 10:00 AM EST Laboratory Appointment Lab at [facility] Hematology Oncology [address] [place] [phone] 11/09/2024 11:00 AM EST Office Visit Hematology [place] [phone] Faith Caba MD [facility] DR HEMATOLOGY [place] [address] 11/09/2024 12:00 PM EST Appointment Hematology [place] [phone] Scheduled Procedures Name Priority Associated Diagnoses Date/Ti [...] as of this encounter Visit Diagnoses Diagnosis DH PATIENT NOT SEEN Gastroesophageal reflux disease with esophagitis, unspecified whether hemorrhage documented in this encounter Care Teams Plaster Foreman Relationship Specialty Start Date End Date Kennedi Shaver MD [address] [facility] [address] [place] [address] PCP - General Family Medicine 08/02/20 06/24/24 documented as of this encounter
--- OUTSIDE RECORDS SUMMARY | 2024-09-11 15:20 | XMS_ITS | Encounter Summary ---
[place] [address] Care Team Providers Care Adobe Layer Helper Name Role Phone Kennedi Shaver MD Primary Care Provider [phone] Reason for Visit * Reason Comments Medication Refill Encounter Details Date Type Department Care Team (Late st Contact Info) Description 05/21/2023 Specialty [place] [address] Katalina Barney RP Social History Tobacco Use Types Packs/Day Years Used Date Smoking Tobacco: Former Cigarettes 1977 Smokeless Tobacco: Never Alcohol Use Standard Drinks/Week Comments Not Currently 14 (1 standard drink = 0.6 oz pu re alcohol) 1 drink a day [facility] Inpatient Questions Answer Date [...] Progress Notes * Katalina Barney RPH - 05/21/2023 10:42 AM EDT Clinical Management Plan: Refill Specialty Pharmacy Consultation; Katalina Barney RPH Comprehensive Medication Management (CMM) Chidi Carbone [...] change made to the Care Plan: No - new Mirtaz Allergies and Drug intolerance: No Known Allergies Medication Reconciliation Discrepancies (compared to [facility] med list) No Specialty Pharmacy Refill Questionnaire More data exists 05/21/2023 Refill Questionnaire What is the name of the specialty medication you are refilling? Zytiga Are you taking any new medications? No Any new medical condition? No Any new allergies? No Any new side effects that are bothersome? No What date will you need this fill by? 05/27/2023 Adherence: Any missed doses? No Patient understands no changes to current drug regimen were made. Katalina Barney RPH 05/21/23 10:43 AM documented in this encounter Plan of Treatment Upcoming Encounters Date Type Department Care Team (Latest Contact Info) Description 09/29/2024 4:30 PM EST Hospital En[place] [address] Lizet Wilkes MD [facility] [place] [address] 09/29/2024 4:30 PM EST - 09/29/2024 5:00 PM EST [place] [address] Lizet Wilkes MD [facility] [place] [address] EGD, UPPER GI ENDOSCOPY (WRVU 2.09) 11/09/2024 10:00 AM EST Laboratory Appointment Lab at [facility] Hematology Oncology [address] [place] [phone] 11/09/2024 11:00 AM EST Office Visit Hematology [place] [address] Faith Caba MD [facility] [place] [address] 11/09/2024 12:00 PM EST Appointment Hematology [place] [address] Scheduled Procedures Name Priority Associated Diagnoses Date/Ti me EGD, UPPER GI ENDOSCOPY (WRVU 2.09) Gastroesophageal reflux disease with esophagitis, unspecified whether hemorrhage 09/29/2024 4:30 PM EST documented as of this encounter Goals Goal Patient Goal Type Associated Problems Recent Progress Patient-Stated? Author [facility] Medication Compliance and Understanding Patient Facing Action Plan Curly Nicolas, [facility] Note: The patient? s goal is to continue positive results of oral chemotherapy by maintaining improved labs PSA or stable scans in clinic for the upcoming year. documented as of this encounter Visit Diagnoses Not on filedocumented in this encounter Care Teams Adobe Layer Helper Relationship Specialty Start Date End Date Kennedi Shaver MD [facility] [address] [place] [address] PCP - General Family Medicine 08/02/20 06/24/24 documented as of this encounter
--- OUTSIDE RECORDS SUMMARY | 2024-09-11 15:20 | XMS_ITS | Encounter Summary ---
Author Organization [facility] Address [facility] [place] [address] Care Team Providers Care Dye Machine Tender Name Role Phone Kennedi Shaver MD Primary Care Provider [phone] Reason for Visit * Reason Onset Date Comments Pre Procedure Call 07/02/2023 Encounter Details Date Type Department Care Team (Late st Contact Info) Description 07/02/2023 Telephone Orthopaedics at [address] [phone] Shi Burger PA [facility] [place] [address] Pre Procedure Call Social History Tobacco Use Types Packs/Day Years [...] encounter Miscellaneous Notes * Telephone Encounter - Serena Dumont - 07/02/2023 12:27 PM EDT Patient called to advise he had mouth xrays performed and they do not show any signs of infection. Patient does not need call back, just wanted to relay the information. * Telephone Encounter - Shi Burger PA - 07/02/2023 9:33 AM EDT I spoke with Chidi. He has upcoming TKA with Dr. Tracy 07/12/[facility]. Chidi is concerned about tooth/gum soreness and potential infection in his mouth. Recommended he update Dr. Melissa's team and he has their number. If infection is found, TKA may need to be delayed. Chidi agreed to call Dr. Melissa's team to make them aware. * Telephone Encounter - Deb De La Cruz - 07/02/2023 9:10 AM EDT Who is calling: CHIDI CARBONE [phone] BEST PHONE # ( NO VOICEMAIL SET-UP SO PLEASE CALL AGAIN) Have you had Surgery? S/P RIGHT TKA 12/19/22 ([facility]) If so when? PENDING LEFT TKA ([facility]) IN [facility] 07/12/23 Who was the Surgeon? [facility] What is the question: PATIENT WOULD LIKE TO DISCUSS PRE-ANTIBOITIC PRIOR TO DENTIST APPT. PATIENT IS CONCERNED WITH A TOOTH - GUM AREA THAT IS PAINFUL AND THOUGHT IT SHOULD BE LOOKED @ PRIOR TO THE SURGERY IN 10 DAYS. PATIENT WAS HOPING TO CONNECT WITH SHI BURGER TO DISCUSS WHAT HE SHOULD DO PREFERRED PHARMACY: [place], [place] documented in this encounter Plan of Treatment Upcoming Encounters Date Type Department Care Team (Latest Contact Info) Description 09/29/2024 4:30 PM EST Hospital Encounter [place] [phone] Lizet Wilkes MD [facility] [place] [address] 09/29/2024 4:30 PM EST - 09/29/2024 5:00 PM EST [place] [phone] Lizet Wilkes MD [facility] [place] [address] EGD, UPPER GI ENDOSCOPY (WRVU 2.09) 11/09/2024 10:00 AM EST Laboratory Appointment Lab at [facility] Hematology Oncology [address] [place] [phone] 11/09/2024 11:00 AM EST Office Visit Hematology [place] [address] Faith Caba MD [facility] [address] [place] [address] 11/09/2024 12:00 PM EST Appointment Hematology [place] [phone] Scheduled Procedures Name Priority Associated Diagnoses Date/Ti me EGD, UPPER GI ENDOSCOPY (WRVU 2.09) Gastroesophageal reflux disease with esophagitis, unspecified whether hemorrhage 09/29/2024 4:30 PM EST documented as of this encounter Goals Goal Patient Goal Type Associated Problems Recent Progress Patient-Stated? Author [facility] Medication Compliance and Understanding Patient Facing Action Plan Curly Nicolas, [facility] Note: The patient? s goal is to continue positive results of oral chemotherapy by maintaining improved labs PSA or stable scans in clinic for the upcoming year. documented as of this encounter Visit Diagnoses Not on filedocumented in this encounter Care Teams Dye Machine Tender Relationship Specialty Start Date End Date Kennedi Shaver MD [facility] [address] [facility] [address] [place] [address] PCP - General Family Medicine 08/02/20 06/24/24 documented as of this encounter
--- OUTSIDE RECORDS SUMMARY | 2024-09-11 15:20 | XMS_ITS | Encounter Summary ---
Author Organization [facility] [place] [address] Care Team Providers Care Musical Instrument Maker Name Role Phone Kennedi Shaver MD Primary Care Provider [phone] Reason for Visit * Reason Comments Follow-up Post Op Joint Replacement DOS: 12-19-22 Right Yari Melissa Encounter Details Date Type Department Care Team (Late st Contact Info) Description 01/24/2023 10:40 AM EDT [place] [address] Julio Melissa MD 12/19/22 S/P right total knee arthroplasty (Dr. Melissa) Social History Tobacco Use Types Packs/Day Years Used Date Smoking Tobacco: Former Cigarettes 1977 Smokeless Tobacco: Never Alcohol Use Standard Drinks/Week Comments Not Currently 14 (1 standard drink = 0.6 oz pu re alcohol) [facility] Inpatient Questions Answer Date Recorded [...] Sign Reading Time Taken Comments Blood Pressure 131/62 01/24/2023 10:56 AM EDT Pulse 96 01/24/2023 10:56 AM EDT Temperature - - Respiratory Rate - - Oxygen Saturation - - Inhaled Oxygen Concentration - - Weight 78.9 kg (174 lb) 01/24/2023 10:56 AM EDT Height 177.8 cm (5' 10) 01/24/2023 10:56 AM EDT Body Mass Index 24.97 01/24/2023 10:56 AM EDT documented in this encounter Progress Notes * Shi Sosa PA - 01/24/2023 10:40 AM EDT Arthroplasty/Orthopaedic History: 1. R TKA by Dr. Melissa 11/2021 HPI: Chidi Carbone is a very pleasant 77 y.o. year-old male and is now 1 month post right total knee replacement. The patient has been doing well and is progressing. Pain is controlled with current analgesics. Medication(s) being used: acetaminophen.. No fevers, chills, nausea, vomiting, or symptoms of infection. Chidi has been ambulating with a cane and is working with PT. He is not taking narcotic pain medicine. Anticoagulation status Rivaroxaban 10mg qAM for 30 days He is doing good. PT is going excellent. ROM improving. Using a cane most of the time. Taking tylenol prn. ROS: Denies: fever, chills, night sweats, nausea, or vomiting BP 131/62 (BP Location (NBP): Left arm, Patient Position: Sitting, BP Cuff Sizes: Adult (25-34 cm)) Pulse 96 Ht 177.8 cm (5' 10) Wt 78.9 kg (174 lb) BMI 24.97 kg/m?? Physical Exam: Well-appearing male in no acute distress. Alert and Oriented x 3 and answers all questions appropriately. The incision is well healed, with no signs of infection. Post Op Right Knee Exam: Knee ROM: Extension:0 Flexion: 100 Alignment: 0-4 degrees Neutral Stability: A/P Translation <5mm. Varus <5mm Valgus <5mm Extension La degrees or less Patella Tracking: Normal Pulses Palpable: Right PT: Yes Right DP:Yes Motor/Sensory: Distal Motor: Normal Distal Sensory: Normal Quadriceps Strength: 4 X-RAYS: Multiple radiographic views were obtained at my request and reviewed with Chidi. X-rays show a well-placed right knee prosthesis with no evidence of fracture, subsidence, loosening, or periprosthetic complication. Questionnaire Responses: 07/19/2022 1:59 PM [facility] Postop Visit KOOS JR Scores 50.01 07/19/2022 1:59 PM Orthopeadics [facility] Response KOOS JR Scores 50.01 07/19/2022 1:59 PM Spine [facility] Response KOOS JR Scores 50.01 ASSESSMENT/PLAN: Mr. Carbone is a 77 y.o. year old male status post right total knee replacement. Doing well postoperatively. Continue PT. Continue weightbearing as tolerated and working on range of motion. We will see him back in 2 months for repeat examination. No new xrays in 2 months. If he is doing well, he may cancel. If he skips the second postop appt, can f/u in 1 year w/ new X-rays. Dr. Melissa will also see Chidi today. Patient may return to normal activities as his pain and function allow. According to the AAOS Appropriate Use Criteria we do recommend antibiotic use prior to dental procedures for Chidi. Hx prostate cancer 6 years ago. Says he is monitored q3 months so we discussed therisks and benefits of predental abx and will proceed for now. antibiotic: Amoxicillin (50mg/kg, maximum 2 gm) 1 hour prior to dental work; dose: 2 grams If Chidi has any changes in health status we recommend he contact our office prior to dental procedures for updated recommendations Signed: ROSA Ulloa 01/24/2023 documented in this encounter Plan of Treatment Upcoming Encounters Date Type Department Care Team (Latest Contact Info) Description 09/29/2024 4:30 PM EST Hospital [place] [address] Lizet Wilkes MD [facility] [address] 09/29/2024 4:30 PM EST - 09/29/2024 5:00 PM EST Surgery Gastroenterology at [place] [phone] Lizet Wilkes MD [facility] [place] [address] EGD, UPPER GI ENDOSCOPY (WRVU 2.09) 11/09/2024 10:00 AM EST Laboratory Appointment Lab at [facility] Hematology Oncology [address] [place] [phone] 11/09/2024 11:00 AM EST Office Visit [place] [phone] Faith Caba MD [facility] DR [place] [address] 11/09/2024 12:00 PM EST Appointment Hematology and Oncology at [place] [phone] Scheduled Procedures Name Priority Associated Diagnoses Date/Ti me EGD, UPPER GI ENDOSCOPY (WRVU 2.09) Gastroesophageal reflux disease with esophagitis, unspecified whether hemorrhage 09/29/2024 4:30 PM EST documented as of this encounter Goals Goal Patient Goal Type Associated Problems Recent Progress Patient-Stated? Author [facility] Medication Compliance and Understanding Patient Facing Action Plan Curly Nicolas, [facility] Note: The patient? s goal is to continue positive results of oral chemotherapy by maintaining improved labs PSA or stable scans in clinic for the upcoming year. documented as of this encounter Visit Diagnoses Diagnosis 12/19/22 S/P right total knee arthroplasty (Dr. Melissa) Gastroesophageal reflux disease with esophagitis, unspecified whether hemorrhage documented in this encounter Care Teams Musical Instrument Maker Relationship Specialty Start Date End Date Kennedi Shaver MD [facility] [address] [place] [address] PCP - General Family Medicine 08/02/20 06/24/24 documented as of this encounter
--- OUTSIDE RECORDS SUMMARY | 2024-09-11 15:20 | XMS_ITS | Encounter Summary ---
[place] [address] Care Team Providers Care Web Editor Name Role Phone Kennedi Shaver MD Primary Care Provider [phone] Reason for Visit * Reason Comments Medication Refill Encounter Details Date Type Department Care Team (Late st Contact Info) Description 07/18/2023 Specialty [place] [address] Sulaiman Leon, [facility] Social History Tobacco Use Types Packs/Day Years Used Date Smoking Tobacco: Former Cigarettes 1977 Smokeless Tobacco: Never Alcohol Use Standard Drinks/Week Comments Not Currently 14 (1 standard drink = 0.6 oz pu re alcohol) 1 drink a day [facility] Inpatient Questions Answer Date Recorded Does [...] as of this encounter Progress Notes * Sulaiman Leon [facility] - 07/18/2023 4:03 PM EDT Clinical Management Plan: Refill Specialty Pharmacy Consultation; Sulaiman Leon [facility] Comprehensive Medication Management (CMM) Chidi Carbone is a 77 y.o. (1945) male who was contacted in regard to a specialty medication refill reminder. Contact made with patient regarding ZYTIGA. A review of the medication therapy was performed. The medication was refilled as scheduled, and all medication related questions and concerns were addressed. The specialty pharmacy staff will follow up with the patient 5-7 days priorto next refill. Was a change made to the Care Plan: No Allergies and Drug intolerance: No Known Allergies Medication Reconciliation Discrepancies (compared to [facility] med list) No Specialty Pharmacy Refill Questionnaire More data exists 07/18/2023 Refill Questionnaire What is the name of the specialty medication you are refilling? ZYTIGA Are you taking any new medications? No Any new medical condition? No Any new allergies? No Any new side effects that are bothersome? No What date will you need this fill by? 07/27/2023 Adherence: Any missed doses? No Patient understands no changes to current drug regimen were made. Sulaiman Leon RPH 07/18/23 4:10 PM documented in this encounter Plan of Treatment Upcoming Encounters Date Type Department Care Team (Latest Contact Info) Description 09/29/2024 4:30 PM EST Hospital En[place] [address] Lizet Wilkes MD [facility] [place] [address] 09/29/2024 4:30 PM EST - 09/29/2024 5:00 PM EST [place] [address] Lizet Wilkes MD [facility] [place] [address] EGD, UPPER GI ENDOSCOPY (WRVU 2.09) 11/09/2024 10:00 AM EST Laboratory Appointment Lab at [facility] Hematology Oncology [address] [place] [phone] 11/09/2024 11:00 AM EST Office Visit [place]ology [place] [phone] Faith Caba MD [facility] DR HEMATOLOGY [place] [address] 11/09/2024 12:00 PM EST Appointment Hematology [place] [phone] Scheduled Procedures Name Priority Associated Diagnoses Date/Ti me EGD, UPPER GI ENDOSCOPY (WRVU 2.09) Gastroesophageal reflux disease with esophagitis, unspecified whether hemorrhage 09/29/2024 4:30 PM EST documented as of this encounter Goals Goal Patient Goal Type Associated Problems Recent Progress Patient-Stated? Author [facility] [place] Medication Compliance and Understanding Patient Facing Action Plan Curly Nicolas, [facility] Note: The patient? s goal is to continue positive results of oral chemotherapy by maintaining improved labs PSA or stable scans in clinic for the upcoming year. documented as of this encounter Visit Diagnoses Not on filedocumented in this encounter Care Teams Web Editor Relationship Specialty Start Date End Date Kennedi Shaver MD [facility] [address] [place] [address] PCP - General Family Medicine 08/02/20 06/24/24 documented as of this encounter
--- OUTSIDE RECORDS SUMMARY | 2024-09-11 15:20 | XMS_ITS | Encounter Summary ---
Author Organization [facility] [place] [address] Care Team Providers Care Building Carpenter Helper Name Role Phone Kennedi Shaver MD Primary Care Provider [phone] Encounter Details Date Type Department Care Team (Latest Contact Info) Description 07/29/2023 Travel Social History Tobacco Use Types Packs/Day [...] (Latest Contact Info) Description 09/29/2024 4:30 PM [facility] Hospital [place] [phone] Lizet Wilkes MD [facility] [place] [address] 09/29/2024 4:30 PM EST - 09/29/2024 5:00 PM EST [place] [address] Lizet Wilkes MD [facility] [place] [address] EGD, UPPER GI ENDOSCOPY (WRVU 2.09) 11/09/2024 10:00 AM EST Laboratory Appointment Lab at [facility] Hematology Oncology [address] [place] [phone] 11/09/2024 11:00 AM EST Office Visit [place] [phone] Faith Caba MD [facility] DR HEMATOLOGY [place] [address] 11/09/2024 12:00 PM EST Appointment [place]ology [place] [phone] Scheduled Procedures Name Priority Associated Diagnoses Date/Ti me EGD, UPPER GI ENDOSCOPY (WRVU 2.09) Gastroesophageal reflux disease with esophagitis, unspecified whether hemorrhage 09/29/2024 4:30 PM EST documented as of this encounter Goals Goal Patient Goal Type Associated Problems Recent Progress Patient-Stated? Author [facility] Medication Compliance and Understanding Patient Facing Action Plan Curly Nicolas, [facility] Note: The patient? s goal is to continue positive results of oral chemotherapy by maintaining improved labs PSA or stable scans in clinic for the upcoming year. documented as of this encounter Visit Diagnoses Not on filedocumented in this encounter Care Teams Building Carpenter Helper Relationship Specialty Start Date End Date Kennedi Shaver MD [facility] [address] [place] [address] PCP - General Family Medicine 08/02/20 06/24/24 documented as of this encounter
--- OUTSIDE RECORDS SUMMARY | 2024-09-11 15:20 | XMS_ITS | Encounter Summary ---
[place] [address] Care Team Providers Care Groundwater Consultant Name Role Phone Kennedi Shaver MD Primary Care Provider [phone] Reason for Visit * Reason Comments Specialty Pharmacy Review Zytiga 500mg t ablet Encounter Details Date Type Department Care Team (Late st Contact Info) Description 04/16/2023 Specialty [place] [address] Deborah Soares, MOTOR [employer] Social History Tobacco Use Types Packs/Day Years Used Date Smoking Tobacco: Former Cigarettes 1977 Smokeless Tobacco: Never Alcohol Use Standard Drinks/Week Comments Not Currently 14 (1 standard drink = 0.6 oz pu re alcohol) 1 drink a day [facility] Inpatient Questions Answer Date Recorded Does [...] encounter Progress Notes * Deborah Soares - 04/16/2023 11:59 PM EDT The [facility] has completed a benefits investigation for Chidi Carbone to review their eligibility to fill at [facility]. Per patient's medication list they are prescribedZytiga 500mg tablet and the medication is able to be filled at the [facility]. The patient is currently filling the medication through Specialty Pharmacy with a $26.17 documented in this encounter Plan of Treatment Upcoming Encounters Date Type Department Care Team (Latest Contact Info) Description 09/29/2024 4:30 PM EST Hospital Encounter [place] [address] Lizet Wilkes MD [facility] [place] [address] 09/29/2024 4:30 PM EST - 09/29/2024 5:00 PM EST [place] [address] Lizet Wilkes MD [facility] [place] [address] EGD, UPPER GI ENDOSCOPY (WRVU 2.09) 11/09/2024 10:00 AM EST Laboratory Appointment Lab at [facility] Hematology Oncology [address] [place] [phone] 11/09/2024 11:00 AM EST Office Visit Hematology [place] [address] Faith Caba MD [facility] DR HEMATOLOGY [place] [address] 11/09/2024 12:00 PM EST Appointment Hematology [place] [phone] Scheduled Procedures Name Priority Associated Diagnoses Date/Ti [...] on filedocumented in this encounter Care Teams Groundwater Consultant Relationship Specialty Start Date End Date Kennedi Shaver MD [facility] [address] [place] [address] PCP - General Family Medicine 08/02/20 06/24/24 documented as of this encounter
--- OUTSIDE RECORDS SUMMARY | 2024-09-11 15:20 | XMS_ITS | Encounter Summary ---
[place] [address] Care Team Providers Care Floatman Name Role Phone Kennedi Shaver MD Primary Care Provider [phone] Encounter Details Date Type Department Care Team (Late st Contact Info) Description 03/19/2023 11:59 PM EDT Anesthesia Event [place] [address] Pavel Diallo MD [facility] [place] [address] Anesthesia Record Procedure Summary Procedure Name Responsible Anesthesiologist Anesthesia Start Time Anesthesia Stop Time EGD, UPPER GI ENDOSCOPY (WRVU 2.09) (Trunk) Events No events on file. Meds * Agents No agents on file. * Blood No blood administrations on file. Lines, Drains, and Airways Type Details Placement Removal Incision 08/15/22; 0748; Righ t, anterior; groin; non-laparascopic puncture; mesenteric arteriogram w/ dr wilson 08/15/22 0748 by Sintia Carpio hot baller 08/17/22; 1048; Righ t, distal, lower, posterior; arm; skin tear 08/17/22 1048 by Faye Sahu RN Incision 12/19/22; 1040; Righ t, anterior; knee 12/19/22 1040 by Fely Ho RN documented in this encounter Social History Tobacco Use Types Packs/Day Years Used Date Smoking Tobacco: Former Cigarettes 1 1977 Smokeless Tobacco: Never Alcohol Use Standard Drinks/Week Comments Not Currently 14 (1 standard drink = 0.6 oz pu re alcohol) DH IPV Inpatient Questions Answer Date Recorded [...] on file documented as of this encounter OR Notes * Anesthesia Preprocedure Evaluation - Pavel Diallo MD - 03/18/2023 4:22 PM EDT Pre-Anesthesia Evaluation for: Chidi Carbone a 77 y.o. male. Procedure(s): TOTAL KNEE ARTHROPLASTY (WRVU 19.6) MODIFIER,GMK SPHERE EFFICIENCY CR KNEE,MEDACTA Patient Active Problem List Diagnosis Date Noted ??? 12/19/22 S/P right total knee arthroplasty (Dr. Melissa) 12/19/2022 ??? GIRISH (obstructive sleep apnea) 11/15/2022 ??? Acute blood loss anemia 08/16/2022 ??? GI bleed 08/14/2022 ??? Hypertension 03/14/2020 ??? 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 GERD (gastroesophageal reflux disease) 11/27/2011 Past Medical History: Diagnosis Date ??? HTN (hypertension) ??? Insomnia ??? GIRISH (obstructive sleep apnea) ??? Prostate cancer Past Surgical History: Procedure Laterality Date ??? IR ARTERIOGRAM MESENTERIC 08/15/2022 IR Arteriogram Mesenteric 08/15/2022 Santo Wilson MD [facility] INTERVENTIONL RAD ? ? PRO ARTHROPLASTY KNEE CONDYLE & PLATEAU MEDIAL & LAT COMPARTMENTS Right 12/19/2022 TOTAL KNEE ARTHROPLASTY (WRVU 19.6) performed by Julio Melissa MD at [facility] MAIN OR ??? PRO COLONOSCOPY, DIAGNOSTIC N/A 04/19/2015 COLONOSCOPY, DIAGNOSTIC performed by Nino Rocha MD at [facility] ENDOSCOPY ??? PRO COLONOSCOPY, DIAGNOSTIC N/A 08/16/2022 COLONOSCOPY, DIAGNOSTIC performed by Bubba Wallace MD at [facility] ENDOSCOPY ??? PRO COLONOSCOPY, FLEX, W/CONTROL, BLEEDING 08/16/2022 COLONOSCOPY; W CONTROL OF BLEEDING, ANY METHOD performed by Bubba Wallace MD at [facility] ENDOSCOPY ??? PRO DRESSING CHANGE UNDER ANESTHESIA N/A 06/04/2019 DRESSING CHANGE (FOR OTHER THAN RAUSCH) UNDER ANES. (WRVU 0.86) performed by Rodri Villa MD at [facility] MAIN OR ? ? PRO EDG FLEXIBLE TRANSORAL ABLATE TUMOR POLYP/LESION W/DILATION & WIRE N/A 04/19/2015 EGD, TRANSORAL; WITH ABLATION OF TUMOR(S), POLYP(S), OR OTHER LESION(S) performed by Nino Rocha MD at [facility] ENDOSCOPY ??? PRO LAP, ESOPHAGOGAST FUNDOPLASTY 03/08/2014 LAPAROSCOPIC MODESTO FUNDOPLASTY performed by Surendra Garcia MD at [facility] MAIN OR ??? PRO PREP SITE TRUNK/ARM/LEG 1ST 100 SQ CM/1PCT Right 06/04/2019 SURGICAL PREP/CREATION RECIPIENT SITE, FIRST 100 SQ CM, LEGS (WRVU 3.65) performed by Rodri Villa MD at [facility] MAIN OR ? ? PRO SPLIT GRFT TRUNK, ARM, LEG <100SQCM Right 06/04/2019 SPLIT THICK SKIN GRAFT,100 SQ CM OR LESS, LEGS (WRVU 9.9) performed by Rodri Villa MD at [facility] MAIN OR ??? PRO UPPER GI ENDOSCOPY, BIOPSY 11/27/2011 UPPER GASTROINTESTINAL ENDOSCOPY,WITH BIOPSY SINGLE OR MULTIPLE performed by NINO ROCHA I at [facility] ENDOSCOPY ??? PRO UPPER GI ENDOSCOPY, BIOPSY 04/22/2012 UPPER GASTROINTESTINAL ENDOSCOPY,WITH BIOPSY SINGLE OR MULTIPLE performed by NINO ROCHA I at [facility] ENDOSCOPY ??? PRO UPPER GI ENDOSCOPY, BIOPSY 05/12/2013 UPPER GASTROINTESTINAL ENDOSCOPY,WITH BIOPSY SINGLE OR MULTIPLE performed by Nino Rocha MD at [facility] ENDOSCOPY ??? PRO UPPER GI ENDOSCOPY, BIOPSY 10/20/2013 UPPER GASTROINTESTINAL ENDOSCOPY,WITH BIOPSY SINGLE OR MULTIPLE performed by Nino Rocha MD at [facility] ENDOSCOPY ??? PRO UPPER GI ENDOSCOPY, BIOPSY N/A 06/29/2015 EGD WITH BIOPSY performed by Nino Rocha MD at [facility] ENDOSCOPY ??? PRO UPPER GI ENDOSCOPY, DIAGNOSTIC N/A 08/15/2022 EGD, UPPER GI ENDOSCOPY performed by Bubba Wallace MD at [facility] ENDOSCOPY ??? UPPER GI ENDOSCOPY, EXAM 02/13/2011 UPPER GI ENDOSCOPY performed by NINO ROCHA I at [facility] ENDOSCOPY ??? UPPER GI ENDOSCOPY, EXAM 05/12/2013 UPPER GI ENDOSCOPY performed by Nino Rocha MD at [facility] ENDOSCOPY ??? UPPER GI ENDOSCOPY, EXAM N/A 04/19/2015 UPPER GI ENDOSCOPY performed by Nino Rocha MD at [facility] ENDOSCOPY ??? UPPER GI ENDOSCOPY, TUMOR ABLATN 04/22/2012 ENDOSCOPY, UPPER GI, W\ABLATION TUMOR\POLYP\LESION performed by NINO ROCHA I at [facility] ENDOSCOPY Social History Tobacco Use ??? Smoking status: Former Years: 15.00 Types: Cigarettes Quit date: 1977 Years since quittin.4 ??? Smokeless tobacco: Never Substance Use Topics ??? Alcohol use: Not Currently Alcohol/week: 14.0 standard drinks Types: 14 Glasses of wine per week Social History Substance and Sexual Activity Drug Use No No Known Allergies Medications: MAR and/or home medications have been reviewed. Physical Exam: Preprocedure Vitals Current as of 12/18/22 1614 No BP, pulse, respiration, SpO2, or temperature recorded. Height: 180.3 cm (5' 11) (07/19/22) Weight: 81.6 kg (180 lb) (07/19/22) BMI: 25.1 IBW: 75.3 kg (165 lb 14.8 oz) Airway Assessment: Mallampati: I TM distance: >3 FB Neck ROM: full Cardiovascular Assessment: system normal Pulmonary Assessment: unlabored breathing Dental Assessment: - normal exam Misc Assessment: IV access: Peripheral line Last Filed Perioperative Cognitive Screening Value Time User AD8 Total Score: 1 11/08/2022 3:00 PM Reynaldo Drew RN AD8 Informant: Patient 11/08/2022 3:00 PM Reynaldo Drew, RN CFS Frailty Score: 4 11/08/2022 3:00 PM Reynaldo Drew RN MiniCOG Total Score: 5 11/08/2022 1:12 PM Ayde Tilley RN Anesthesia Plan: ASA 3 spinal, with a(n) intravenous induction 77 y.o. gentleman with GIB for EGD f/u esophagitis, colonoscopy f/u polyps after diverticular bleed Chart and labs reviewed PMH of GERD, esophagitis on PPI, diverticulosis c/b LGIB, HTN on ARB, GIRISH-CSA on CPAP (8-15 cmH2O) / modafinil, ETOH use disorder, hormone-relapsed prostate ca on abiraterone / finasteride Past Anesthesia History: - Airway history: previously EMV, G1V with VL, G3V with Mac 4 / Mil 2 easy iGel 5 insertion - Anesthetic exposures: numerous prior GA / MAC - Anesthetic complications: no personal or family hx anesthetic complications Activity Tolerance: >4 METs No Known Allergies EKG (11/09/22): NSR, borderline LVH Assessment/Plan: ASA 3 MAC/IV Propofol sedation; routine monitors Region - Other Informed Consent: Anesthesia Screening documented in this encounter Plan of Treatment Upcoming Encounters Date Type Department Care Team (Latest Contact Info) Description 09/29/2024 4:30 PM EST Hospital Encounter [place] [address] Lizet Wilkes MD [facility] [place] [address] 09/29/2024 4:30 PM EST - 09/29/2024 5:00 PM EST Surgery [place] [phone] Lizet Wilkes MD [facility] [place] [address] EGD, UPPER GI ENDOSCOPY (WRVU 2.09) 11/09/2024 10:00 AM EST Laboratory Appointment Lab at [facility] Hematology Oncology [address] [place] [phone] 11/09/2024 11:00 AM EST Office Visit Hematology [place] [address] Faith Caba MD [facility] DR HEMATOLOGY [place] [address] 11/09/2024 12:00 PM EST Appointment Hematology [place] [address] Scheduled Procedures Name Priority Associated Diagnoses Date/Ti me EGD, UPPER GI ENDOSCOPY (WRVU 2.09) Gastroesophageal reflux disease with esophagitis, unspecified whether hemorrhage 09/29/2024 4:30 PM EST documented as of this encounter Goals Goal Patient Goal Type Associated Problems Recent Progress Patient-Stated? Author [facility] Medication Compliance and Understanding Patient Facing Action Plan Curly Nicolas, [facility] Note: The patient? s goal is to continue positive results of oral chemotherapy by maintaining improved labs PSA or stable scans in clinic for the upcoming year. documented as of this encounter Visit Diagnoses Not on filedocumented in this encounter Care Teams Floatman Relationship Specialty Start Date End Date Kennedi Shaver MD [facility] [address] [place] [address] PCP - General Family Medicine 08/02/20 06/24/24 documented as of this encounter
--- OUTSIDE RECORDS SUMMARY | 2024-09-11 15:20 | XMS_ITS | Encounter Summary ---
Author Organization [facility] [place] [address] Care Team Providers Care Landscape Architecture Teacher Name Role Phone Kennedi Shaver MD Primary Care Provider Reason for Visit * Reason Onset Date Comments Post-op Problem 02/20/2023 Leg pain and pos sible infection Encounter Details Date Type Department Care Team (Late st Contact Info) Description 02/20/2023 [place] [phone] Julio Melissa MD Post-op Problem (Leg pain and possible infection) Social History Tobacco Use Types Packs/Day Years Used Date Smoking Tobacco: Former Cigarettes 1977 Smokeless Tobacco: Never Alcohol Use Standard Drinks/Week Comments Not Currently 14 (1 standard drink = 0.6 oz pu re alcohol) [facility] Inpatient Questions Answer Date Recorded [...] encounter Miscellaneous Notes * Telephone Encounter - Poonam De León LPN - 02/20/2023 4:02 PM EDT Spoke with Chidi, who states he thinks he may have overdone his activity today, as this is more than he is normally used to doing. When he returned home, a doctor friend of his had assessed his kneeand encouraged him to call the clinic. Chidi's knee is a little bit more swollen than normal and painful at the top portion of the incision. He denies any chills fevers sweats rigors or any signs and symptoms of infection such as redness or drainage. We did discuss modalities to decrease the swelling and pain in his knee. I encouraged him to rest ice compress and elevate his knee. Chidi is in agreement with this plan and will call tomorrow if these modalities do not work to help reduce the pain and swelling. * Telephone Encounter - Esdras Rg - 02/20/2023 2:50 PM EDTSummary: Leg pain just above knee cap, swelling and redness Caller: Mr. Chidi Carbone Best Return Contact: Procedure:DOS: 12-19-22 Right TKA Surgeon: Dr. Melissa Questions: I have a friend who is a doctor who saw my knee and said I need to get it looked at right away because it is red and swollen. I have had pain since the surgery but didn't think much of it and now it has become somewhat worse and I have taken Tylenol, but thought it may be because I gave it a bit of a workout today shopping and driving to [place]. Onset of increased pain: More sensitive over the past few days Pain Level: Two to three Location of pain: Two inches north of the knee cap Location of warmth and redness: above the knee cap to the end of the scar He would also like it noted that [place] is only 20 minutes away and not sure if anything could be done there. documented in this encounter Plan of Treatment Upcoming Encounters Date Type Department Care Team (Latest Contact Info) Description 09/29/2024 4:30 PM EST Hospital En[place] [phone] Lizet Wilkes MD [facility] [place] [address] 09/29/2024 4:30 PM EST - 09/29/2024 5:00 PM EST [place] [phone] Lizet Wilkes MD [facility] [place] [address] EGD, UPPER GI ENDOSCOPY (WRVU 2.09) 11/09/2024 10:00 AM EST Laboratory Appointment Lab at [facility] Hematology Oncology [address] [place] [phone] 11/09/2024 11:00 AM EST Office Visit Hematology [place] [phone] Faith Caba MD [facility] DR [place] [address] 11/09/2024 12:00 PM EST Appointment Hematology [place] [phone] Scheduled Procedures Name Priority Associated Diagnoses Date/Ti me EGD, UPPER GI ENDOSCOPY (WRVU 2.09) Gastroesophageal reflux disease with esophagitis, unspecified whether hemorrhage 09/29/2024 4:30 PM EST documented as of this encounter Goals Goal Patient Goal Type Associated Problems Recent Progress Patient-Stated? Author [facility] Medication Compliance and Understanding Patient Facing Action Plan Curly Nicolas, [facility] Note: The patient? s goal is to continue positive results of oral chemotherapy by maintaining improved labs PSA or stable scans in clinic for the upcoming year. documented as of this encounter Visit Diagnoses Not on filedocumented in this encounter Care Teams Landscape Architecture Teacher Relationship Specialty Start Date End Date Kennedi Shaver MD [address] [facility] [address] [place] [address] PCP - General Family Medicine 08/02/20 06/24/24 documented as of this encounter
--- OUTSIDE RECORDS SUMMARY | 2024-09-11 15:20 | XMS_ITS | Encounter Summary ---
Author Organization [facility] [place] [address] Care Team Providers Care Accounting System Expert Name Role Phone Kennedi Shaver MD Primary Care Provider [phone] Encounter Details Date Type Department Care Team (Late st Contact Info) Description 08/28/2023 Specialty [place] [address] Francis Palacio, [facility] Social History Tobacco Use Types Packs/Day Years Used Date Smoking Tobacco: Former Cigarettes 1977 Smokeless Tobacco: Never Alcohol Use Standard Drinks/Week Comments Not Currently 14 (1 standard drink = 0.6 oz pu re alcohol) 1 drink a day [facility] Inpatient Questions Answer Date [...] as of this encounter Progress Notes * Francis Palacio - 08/28/2023 1:06 PM EST Clinical Management Plan: Refill Specialty Pharmacy Consultation; Francis Palacio Comprehensive Medication Management (CMM) Chidi Carbone is a 77 y.o. (1945) male who was contacted in regard to a specialty medication refill reminder. Contact made with patient regarding Zytiga 500 mg tablets. A review of the medication therapy was performed. The medication was refilled as scheduled, and all medication relatedquestions and concerns were addressed. The specialty pharmacy staff will follow up with the patient5-7 days prior to next refill. Was a change made to the Care Plan: No Allergies and Drug intolerance: No Known Allergies Medication Reconciliation Discrepancies (compared to [facility] med list) No Specialty Pharmacy Refill Questionnaire More data exists 08/28/2023 Refill Questionnaire What is the name of the specialty medication you are refilling? Zytiga Are you taking any new medications? No Any new medical condition? No Any new allergies? No Any new side effects that are bothersome? No What date will you need this fill by? 09/03/2023 Adherence: Any missed doses? No Patient understands no changes to current drug regimen were made. Francis Palacio 08/28/23 1:08 PM * Francis Palacio - 08/28/2023 1:06 PM EST The last refill of Zytiga was used on refill date 08/28/2023. Please pend a new rx for future fillsto be placed on file to provider Wyatt Barriga. Thank you, Francis Palacio 08/28/23 1:09 PM documented in this encounter Plan of Treatment Upcoming Encounters Date Type Department Care Team (Latest Contact Info) Description 09/29/2024 4:30 PM EST Hospital Encounter [place] [address] Lizet Wilkes MD [facility] [place] [address] 09/29/2024 4:30 PM EST - 09/29/2024 5:00 PM EST Surgery Gastroenterology at [place] [address] Lizet Wilkes MD [facility] [place] [address] EGD, UPPER GI ENDOSCOPY (WRVU 2.09) 11/09/2024 10:00 AM EST Laboratory Appointment Lab at [facility] Hematology Oncology [address] [place] [phone] 11/09/2024 11:00 AM EST Office Visit [place]ology [place] [address] Faith Caba MD [facility] [place] [address] 11/09/2024 12:00 PM EST Appointment Hematology and Oncology at [place] [address] Scheduled Procedures Name Priority Associated Diagnoses Date/Ti [...] on filedocumented in this encounter Care Teams Accounting System Expert Relationship Specialty Start Date End Date Kennedi Shaver MD [facility] [address] [place] [address] PCP - General Family Medicine 08/02/20 06/24/24 documented as of this encounter
--- OUTSIDE RECORDS SUMMARY | 2024-09-11 15:20 | XMS_ITS | Encounter Summary ---
Author Organization [facility] [place] [address] Care Team Providers Care Maintenance Mechanic Engine Name Role Phone Kennedi Shaver MD Primary Care Provider [phone] Encounter Details Date Type Department Care Team (Latest Contact Info) Description 04/16/2023 Travel Social History Tobacco Use Types Packs/Day [...] (Latest Contact Info) Description 09/29/2024 4:30 PM [facility] Hospital Encounter [place] [phone] Lizet Wilkes MD [facility] [place] [address] 09/29/2024 4:30 PM EST - 09/29/2024 5:00 PM EST Surgery [place] [address] Lizet Wilkes MD [facility] [place] [address] EGD, UPPER GI ENDOSCOPY (WRVU 2.09) 11/09/2024 10:00 AM EST Laboratory Appointment Lab at [facility] Hematology Oncology [address] [place] [phone] 11/09/2024 11:00 AM EST Office Visit Hematology [place] [phone] Faith Caba MD [facility] DR HEMATOLOGY [place] [address] 11/09/2024 12:00 PM EST Appointment Hematology [place] [phone] Scheduled Procedures Name Priority Associated Diagnoses Date/Ti me EGD, UPPER GI ENDOSCOPY (WRVU 2.09) Gastroesophageal reflux disease with esophagitis, unspecified whether hemorrhage 09/29/2024 4:30 PM EST documented as of this encounter Goals Goal Patient Goal Type Associated Problems Recent Progress Patient-Stated? Author [facility] Medication Compliance and Understanding Patient Facing Action Plan Curly Nicolas, [facility] Note: The patient? s goal is to continue positive results of oral chemotherapy by maintaining improved labs PSA or stable scans in clinic for the upcoming year. documented as of this encounter Visit Diagnoses Not on filedocumented in this encounter Care Teams Maintenance Mechanic Engine Relationship Specialty Start Date End Date Kennedi Shaver MD [facility] [address] [place] [address] PCP - General Family Medicine 08/02/20 06/24/24 documented as of this encounter
--- OUTSIDE RECORDS SUMMARY | 2024-09-11 15:20 | XMS_ITS | Encounter Summary ---
[place] [address] Care Team Providers Care Hide Grader Name Role Phone Kennedi Shaver MD Primary Care Provider [phone] Reason for Visit * Reason Comments Specialty Refill Management Encounter Details Date Type Department Care Team (Late st Contact Info) Description 02/22/2023 Specialty [place] [address] Radha Larson, [facility] Social History Tobacco Use Types Packs/Day Years Used Date Smoking Tobacco: Former Cigarettes 1977 Smokeless Tobacco: Never Alcohol Use Standard Drinks/Week Comments Not Currently 14 (1 standard drink = 0.6 oz pu re alcohol) [facility] Inpatient Questions Answer Date [...] as of this encounter Progress Notes * Martinez Rosen, [facility] - 02/22/2023 9:17 AM EDT Clinical Management Plan: Refill Specialty Pharmacy Consultation; Martinez Rosen [facility] Comprehensive Medication Management (CMM) Chidi Carbone is a 77 y.o. (1945) male who was contacted in regard to a specialty medication refill reminder. Contact made with patient regarding abiraterone (Zytiga) 500 mg tablets. A review of the medication therapy was performed. The medication was refilled as scheduled, and all medication related questions and concerns were addressed. The specialty pharmacy staff will follow up with the patient 5-7 days prior to next refill. Was a change made to the Care Plan: No Allergies and Drug intolerance: No Known Allergies Medication Reconciliation Discrepancies (compared to [facility] med list) No Specialty Pharmacy Refill Questionnaire 02/22/2023 Refill Questionnaire What is the name of the specialty medication you are refilling? Abiraterone (Zytiga) Are you taking any new medications? No Any new medical condition? Yes Please explain Recent TKA Any new allergies? No Any new side effects that are bothersome? No What date will you need this fill by? 02/27/2023 Adherence: Any missed doses? No Patient understands no changes to current drug regimen were made. Martinez Rosen [facility] 02/22/23 9:21 AM documented in this encounter Plan of Treatment Upcoming Encounters Date Type Department Care Team (Latest Contact Info) Description 09/29/2024 4:30 PM EST Hospital En[place] [address] Lizet Wilkes MD [facility] [place] [address] 09/29/2024 4:30 PM EST - 09/29/2024 5:00 PM EST [place] [address] Lizet Wilkes MD [facility] [place] [address] EGD, UPPER GI ENDOSCOPY (WRVU 2.09) 11/09/2024 10:00 AM EST Laboratory Appointment Lab at [facility] Hematology Oncology [address] [place], [place] [phone] 11/09/2024 11:00 AM EST Office Visit Hematology [place] [phone] Faith Caba MD [facility] DR HEMATOLOGY [place] [address] 11/09/2024 12:00 PM EST Appointment Hematology [place] [phone] Scheduled Procedures Name Priority Associated [...] on filedocumented in this encounter Care Teams Hide Grader Relationship Specialty Start Date End Date Kennedi Shaver MD [address] [place] [address] PCP - General Family Medicine 08/02/20 06/24/24 documented as of this encounter
--- OUTSIDE RECORDS SUMMARY | 2024-09-11 15:20 | XMS_ITS | Encounter Summary ---
Author Organization [facility] [place] [address] Care Team Providers Care Watch Mechanic Name Role Phone Kennedi Shaver MD Primary Care Provider [phone] Encounter Details Date Type Department Care Team (Latest Contact Info) Description 04/16/2023 9:13 AM EDT - 04/16/2023 11:59 PM EDT Hospital Encounter [place] [address] Neoplasm of prostate, distant metastasis staging category [...] 4:30 PM EST Hospital [place] [address] Lizet Wilkes MD [facility] [place] [address] 09/29/2024 4:30 PM EST - 09/29/2024 5:00 PM EST [place] [phone] Lizet Wilkes MD [facility] [address] [place] [address] EGD, UPPER GI ENDOSCOPY (WRVU 2.09) 11/09/2024 10:00 AM EST Laboratory Appointment Lab at [facility] Hematology Oncology [address] [place] [phone] 11/09/2024 11:00 AM EST Office Visit [place] [phone] Faith Caba MD [facility] DR HEMATOLOGY [place] [address] 11/09/2024 12:00 PM EST Appointment Hematology [place] [phone] Scheduled Procedures Name Priority Associated Diagnoses Date/Ti me EGD, UPPER GI ENDOSCOPY (WRVU 2.09) Gastroesophageal reflux disease with esophagitis, unspecified whether hemorrhage 09/29/2024 4:30 PM EST documented as of this encounter Goals Goal Patient Goal Type Associated Problems Recent Progress Patient-Stated? Author [facility] Home Medication Compliance and Understanding Patient Facing Action Plan Curly Nicolas, [facility] Note: The patient? s goal is to continue positive results of oral chemotherapy by maintaining improved labs PSA or stable scans in clinic for the upcoming year. documented as of this encounter Procedures Procedure Name Priority Date/Time Associated Diagnosis Comments HEMOGRAM Routine 04/16/2023 9:25 AM EDT Neoplasm of prostate, 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 DIFFERENTIAL, AUTOMATED Routine 04/16/2023 9:25 AM EDT Neoplasm of prostate, 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 CBC (WITH DIFF) Routine 04/16/2023 9:25 AM EDT Neoplasm of prostate, 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 PSA (ULTRASENSITIVE) Routine 04/16/2023 9:25 AM EDT Neoplasm of prostate, 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 COMPREHENSIVE METABOLIC PANEL Routine 04/16/2023 9:25 AM EDT Neoplasm of prostate, 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 documented in this encounter Results * Differential, Automated (04/16/2023 9:25 AM EDT) Neutrophil % 74.3 % [facility] Neutrophil Absolute 5.56 1.70 - 6.10 x10(3)/[facility] Lymph % 15.5 % [facility] Lymphocytes Abs 1.2 0.9 - 3.2 x10(3)/[facility] Monocyte % 7.5 % [facility] Monocyte Abs 0.6 0.3 - 0.9 x10(3)/[facility] Eos % 1.9 % [facility] Eosinophils Abs 0.1 0.0 - 0.4 x10(3)/[facility] Basophil % 0.5 % [facility] Baso Absolute 0.0 0.0 - 0.1 x10(3)/[facility] Immature Gran % 0.30 % [facility] Comment: Immature granulocytes(IG's)percentage and absolute count will include metamyelocytes, myelocytes, and promyelocytes. Blood smears from CBCs yielding IG's will be scanned manually for concordance. If this scan disagrees with the automated IG or if promyelocytes are noted, a manual differential will be performed. Immature Gran Absolute 0.02 0.00 - 0.04 x10(3)/[facility] Blood 04/16/2023 9:25 AM EDT 04/16/2023 9:49 AM EDT Narrative Resulting Agency Comment Spec In Lab Donna P Bermudez PIT CRANE OPERATOR HEMATOLOGY ORDERABLE S [facility] [place] [address] * (ABNORMAL) Hemogram (04/16/2023 9:25 AM EDT) White Blood Cell 7.5 4.0 - 9.5 x10(3)/mc L [facility] Red Blood Cell 4.57(L) 4.58 - 5.54 x10(6)/mc L [facility] Hemoglobin 13.5(L) 13.7 - 16.5 g/dL [facility] Hematocrit 41.0 40.5 - 48.5 % [facility] Mean Cell Volume 89.7 82.9 - 93.1 fL [facility] Mean Cell Hemoglobin 29.5 27.5 - 32.1 pg [facility] Mean Cell Hemoglobin Concentration 32.9 32.0 - 35.7 g/dL [facility] Platelet 263 145 - 357 x10(3)/mc L [facility] RDW Standard Deviation 45.1(H) 36.0 - 45.0 fL [facility] RDW coefficient of variation 13.7 11.4 - 13.8 % [facility] Mean Platelet Volume 9.3 7.6 - 12.9 fL [facility] NRBC% auto 0.0 % [facility] NRBC Absolute 0.000 0.000 - 0.000 x10(3)/ L [facility] Blood 04/16/2023 9:25 AM EDT 04/16/2023 9:49 AM EDT Narrative Resulting Agency Comment Spec In Lab Donna Bermudez APRN HEMATOLOGY ORDERABLE S Performing Organization Address City/[facility]/ZIP Co de Phone Number [facility] [place] [address] * Comprehensive metabolic panel (non-fasting) (04/16/2023 9:25 AM EDT) Glucose 118 65 - 199 mg/dL [facility] Comment:Diabetes: >=200 mg/d L plus symptoms Blood Urea Nitrogen 19 10 - 20 mg/dL [facility] Creatinine 0.87 0.80 - 1.50 mg/dL [facility] Sodium 142 135 - 145 mmol/L [facility] Potassium 4.1 3.5 - 5.0 mmol/L [facility] Comment: Please note: ??Patients with WBC >100,000 may have falsely elevated Potassium levels. ??For accurate Potassium quantification in these patients send serum separator tube (gold top) for subsequent determinations. ??Contact the Clinical Chemistry Laboratory if there are any questions. Chloride 105 98 - 107 mmol/L [facility] Carbon Dioxide 25 22 - 31 mmol/L [facility] Anion Gap 12 5 - 15 mmol/L [facility] Calcium 9.4 8.5 - 10.5 mg/dL [facility] Protein, Total 6.6 6.1 - 8.0 g/dL [facility] Albumin 4.3 3.2 - 5.2 g/dL [facility] Aspartate Aminotransferase 14 0 - 39 unit/L [facility] Alanine Aminotransferase 8 0 - 55 unit/L [facility] Alkaline Phosphatase 102 40 - 130 unit/L [facility] Bilirubin, Total 0.6 0.2 - 1.3 mg/dL [facility] Est Glomerular Filtration Rate 88 >=60 mL/min/1. 73 m?? [facility] Comment: This patient's estimated GFR was [...] and symptoms in addition to eGFR. Blood 04/16/2023 9:25 AM EDT 04/16/2023 9:49 AM EDT Narrative Resulting Agency Comment Spec In Lab Donna Bermudez APRN CHEMISTRY ORDERABLES [facility] [place] [address] * PSA (Ultrasensitive) (04/16/2023 9:25 AM EDT) Prostate Specific Antigen (Ultrasensitive) <0.01 0.00 - 4.00 ng/mL [facility] Comment: PLEASE NOTE: The above reference interval is intended for healthy males with an intact prostate. Values within this reference interval may indicate recurrence in men who have undergone radical prostatectomy. This result was generated using a Kenneth Paz immunoassay. ??Results obtained from other methods or manufacturers cannot be used interchangeably with this method. Blood 04/16/2023 9:25 AM EDT 04/16/2023 9:49 AM EDT Narrative Resulting Agency Comment Spec In Lab Donna Bermudez PIT CRANE OPERATOR CHEMISTRY ORDERABLES [facility] [place] [address] documented in this encounter Visit Diagnoses Diagnosis Neoplasm of prostate, 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 Gastroesophageal reflux disease with esophagitis, unspecified whether hemorrhage documented in this encounter Care Teams Watch Mechanic Relationship Specialty Start Date End Date Kennedi Shaver MD [address] [place] [address] PCP - General Family Medicine 08/02/20 06/24/24 documented as of this encounter
--- OUTSIDE RECORDS SUMMARY | 2024-09-11 15:20 | XMS_ITS | Encounter Summary ---
Author Organization [facility] [place] [address] Care Team Providers Care Travertine Installer Name Role Phone Kennedi Shaver MD Primary Care Provider [phone] Reason for Visit * Reason Onset Date Comments Questions 01/23/2023 Encounter Details Date Type Department Care Team (Late st Contact Info) Description 01/23/2023 Telephone [place] [address] Julio Melissa MD Questions Social History Tobacco Use Types Packs/Day Years Used Date Smoking Tobacco: Former Cigarettes 1977 Smokeless Tobacco: Never Alcohol Use Standard Drinks/Week Comments Yes 14 (1 standard drink = 0.6 oz pu re alcohol) [facility] Inpatient Questions Answer Date [...] Encounter - Poonam De León LPN - 01/23/2023 1:03 PM EDT Returned call to [facility] to let them know that we have not received any plan of care documents and to please refax them to our office. * Telephone Encounter - Bri Morales - 01/23/2023 12:08 PM EDT Name of person calling: [facility] person is calling from?: [facility] Was this a new injury? NO Have you had Surgery?YES If so when? 12/19/22 Who was the Surgeon?LOPEZ What is the question: They have not received back the signed plan of care that was FAXed on January 05. Please call to let them know if we recieved it. Best number to reach the caller: [phone] documented in this encounter Plan of Treatment Upcoming Encounters Date Type Department Care Team (Latest Contact Info) Description 09/29/2024 4:30 PM EST Hospital Encounter [place] [phone] Lizet Wilkes MD [facility] [place] [address] 09/29/2024 4:30 PM EST - 09/29/2024 5:00 PM EST [place] [phone] Lizet Wilkes MD [facility] [place] [address] EGD, UPPER GI ENDOSCOPY (WRVU 2.09) 11/09/2024 10:00 AM EST Laboratory Appointment Lab at [facility] Hematology Oncology [address] [place] [phone] 11/09/2024 11:00 AM EST Office Visit H[place]ology [place] [phone] Faith Caba MD [facility] [address] [place] [address] 11/09/2024 12:00 PM EST Appointment Hematology [place] [phone] Scheduled Procedures Name Priority Associated Diagnoses Date/Ti me EGD, UPPER GI ENDOSCOPY (WRVU 2.09) Gastroesophageal reflux disease with esophagitis, unspecified whether hemorrhage 09/29/2024 4:30 PM EST documented as of this encounter Goals Goal Patient Goal Type Associated Problems Recent Progress Patient-Stated? Author [facility] Medication Compliance and Understanding Patient Facing Action Plan Curly Nicolas, [facility] Note: The patient? s goal is to continue positive results of oral chemotherapy by maintaining improved labs PSA or stable scans in clinic for the upcoming year. documented as of this encounter Visit Diagnoses Not on filedocumented in this encounter Care Teams Travertine Installer Relationship Specialty Start Date End Date Kennedi Shaver MD [facility] [address] [facility] [address] [place] [address] PCP - General Family Medicine 08/02/20 06/24/24 documented as of this encounter
--- OUTSIDE RECORDS SUMMARY | 2024-09-11 15:20 | XMS_ITS | Encounter Summary ---
Author Organization [facility] [place] [address] Care Team Providers Care Field Support Technician Name Role Phone Kennedi Shaver MD Primary Care Provider [phone] Reason for Visit * Treatment/Therapy Plan Authorization (Routine) - Authorized Specialty Diagnoses / Procedures Referred By Blaine peralta Referred To Contact Diagnoses Neoplasm of prostate, 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 Procedures TC LEUPROLIDE ACETATE, PER 1MG, INJECTION (LUPRON) Faith Caba MD [facility] [address] [place] [address] [facility] Hem Onc [address] [place] [address] Referral ID Status Reason Start Date Expiration Date V isits Requested Visits Authorized [id number] Authorized 09/27/2020 09/29/2024 99 99 Encounter Details Date Type Department Care Team (Latest Contact Info) Description 04/16/2023 9:12 AM EDT Hospital Encounter [place] [phone] Neoplasm of prostate, distant metastasis staging category [...] of this encounter Progress Notes * Yenifer Dominguez RN - 04/16/2023 11:32 AM EDT Patient Name: Chidi Carbone Patient Age: 77 y.o. Birthdate: 1945 Admit date: 04/16/2023 Attending Physician: No att. providers found Access visit. See MAR and/or flowsheet. Lupron injection given documented in this encounter Plan of Treatment Upcoming Encounters Date Type Department Care Team (Latest Contact Info) Description 09/29/2024 4:30 PM EST Hospital Encounter Gastroenterology at [place] [phone] Lizet Wilkes MD [facility] [place] [address] 09/29/2024 4:30 PM EST - 09/29/2024 5:00 PM EST [place] [phone] Lizet Wilkes MD [facility] [place] [address] EGD, UPPER GI ENDOSCOPY (WRVU 2.09) 11/09/2024 10:00 AM EST Laboratory Appointment Lab at [facility] Hematology Oncology [address] [place] [phone] 11/09/2024 11:00 AM EST Office Visit [place]ology [place] [phone] aFith Caba MD [facility] DR [place] [address] 11/09/2024 12:00 PM EST Appointment [place]ematology [place] [phone] Scheduled Procedures Name Priority Associated Diagnoses Date/Ti me EGD, UPPER GI ENDOSCOPY (WRVU 2.09) Gastroesophageal reflux disease with esophagitis, unspecified whether hemorrhage 09/29/2024 4:30 PM EST documented as of this encounter Goals Goal Patient Goal Type Associated Problems Recent Progress Patient-Stated? Author [facility] Medication Compliance and Understanding Patient Facing [...] 22.5 mg, Intramuscular, ONCE, 1 dose, On Sat04/16/23 at 1130, Last injection site was... leuprolide IM injection site: R Gluteal (10/16/2022 11:20 AM) , Routine, This agent is restricted to outpatient use. Is this drug being given as an outpatient? Yes Given 04/16/2023 11:31 AM EDT 22.5 mg Right Gluteal documented in this encounter Care Teams Field Support Technician Relationship Specialty Start Date End Date Kennedi Shaver MD [address] [place] [address] PCP - General Family Medicine 08/02/20 06/24/24 documented as of this encounter
--- OUTSIDE RECORDS SUMMARY | 2024-09-11 15:20 | XMS_ITS | Encounter Summary ---
Author Organization [facility] Address [facility] [place] [address] Care Team Providers Care Instrument Repair Specialist Name Role Phone Kennedi Shaver MD Primary Care Provider [phone] Encounter Details Date Type Department Care Team (Latest Contact Info) Description 01/24/2023 9:55 AM EDT - 01/24/2023 11:59 PM EDT Hospital Encounter XRay at [address] [place] [address] Julio Melissa MD S/P total knee arthroplasty, right Discharge Disposition: Home Social History Tobacco Use Types Packs/Day Years Used Date Smoking Tobacco: Former Cigarettes 1977 Smokeless Tobacco: Never Alcohol Use Standard Drinks/Week Comments Not Currently 14 (1 standard drink = 0.6 oz pu re alcohol) [facility] Inpatient Questions Answer [...] muscle. Once every 3 months, dosage unknown rivaroxaban (Xarelto) 10 mg tablet Take 1 tablet by mouth daily. Take for 30 days after surgery. Last day = 01/18/23 29 tablet 12/21/2022 04/16/2023 predniSONE (Deltasone) 5 mg Tablet Take 1 [...] EST Hospital Encounter [place] [phone] Lizet Wilkes MD [facility] [place] [address] 09/29/2024 4:30 PM EST - 09/29/2024 5:00 PM EST Surgery [place] [phone] Lizet Wilkes MD [facility] [place] [address] EGD, UPPER GI ENDOSCOPY (WRVU 2.09) 11/09/2024 10:00 AM EST Laboratory Appointment Lab at [facility] Hematology Oncology [address] [place] [phone] 11/09/2024 11:00 AM EST Office Visit Hematology [place] [phone] Faith Caba MD [facility] DR HEMATOLOGY [place] [address] 11/09/2024 12:00 PM EST Appointment Hematology and Oncology at [place] [phone] Scheduled Procedures Name Priority Associated Diagnoses Date/Ti me EGD, UPPER GI ENDOSCOPY (WRVU 2.09) Gastroesophageal reflux disease with esophagitis, unspecified whether hemorrhage 09/29/2024 4:30 PM EST documented as of this encounter Goals Goal Patient Goal Type Associated Problems Recent Progress Patient-Stated? Author [facility] Medication Compliance and Understanding Patient Facing Action Plan Curly Nicolas, [facility] Note: The patient? s goal is to continue positive results of oral chemotherapy by maintaining improved labs PSA or stable scans in clinic for the upcoming year. documented as of this encounter Procedures Procedure Name Priority Date/Time Associated Diagnosis Comments XR KNEE STANDING ALIGNMENT AP LAT SKYLINE RIGHT Routine 01/24/2023 10:46 AM EDT S/P total knee arthroplasty, right documented in this encounter Results * XR Knee Standing Alignment AP Lat [place] Right (01/24/2023 10:46 AM EDT) Anatomical Region Laterality Modality Knee Right Digital Radiogra phy Impressions 01/24/2023 11:46 AM EDT 1. ??Uncomplicated right total knee arthroplasty. Nonspecific right knee joint effusion and soft tissue swelling. 2. ??Slight lateral subluxation of the right patella. 3. ??Unchanged low-grade chondroid lesion of the distal right femur with no aggressive radiographic features. 4. ??Unchanged left knee osteoarthropathy. 5. ??Neutral alignment of the right knee and varus alignment of the left knee. Thank you for letting us participate in the care of this patient. ??If you are a health care provider and have any questions regarding this report, please contact the number below. ??For patients who have questions please contact the health pediatric acute care unit nurse that requested your imaging first. ? Narrative 01/24/2023 11:46 AM EDT EXAMINATION: XR KNEE STANDING ALIGNMENT AP LAT SKYLINE RIGHT CLINICAL HISTORY: s/p R TKA Evaluate new TKA (as entered by ordering provider in the order requisition) TECHNIQUE: Separate images of the pelvis, knees and feet were acquired in the AP projection with the patient standing. ??These images were stitched together to form a composite image of the pelvis and legs. AP and sunrise views of bilateral knees, lateral view the right knee. COMPARISON: Right knee radiographs 12/22/2022. Bilateral knee radiographs 07/19/2022. Left knee radiographs 10/20/2007, which includes AP and Gibson views of the right knee for comparison. Leg length views 10/20/2007. FINDINGS: There is diffuse osseous demineralization. Mechanical axes of the right leg passes through the central tibial tray. Mechanical axis left leg passes through the medial tibial plateau. Unchanged mild bilateral hip joint space narrowing. Unchanged small ossicles adjacent to the lateral margins of the bilateral acetabula. There is a catheter calcification of the upper right thigh. Bilateral tibiotalar joint spaces are preserved. Right knee: Status post right total knee arthroplasty. Nonspecific anterior knee soft tissue swelling and knee joint effusion. No periprosthetic fracture or bone resorption. Slight lateral subluxation of the patella. There is a 2.5 cm superior-inferior, 2.5 cm medial-lateral, and 2.0 cm AP collection of ring and arc calcifications in the medullary space of the right distal femur. No endosteal scalloping, cortical destruction, or periostitis. This finding measured 2.9 cm superior-inferior and 2.2 cm medial-lateral on September 2007 and 2.7 cm superior-inferior by 2.4 cm medial-lateral by 2.4 cm AP on November 2022. Slight differences in measurement likely correspond to (and projection and the degree of geometric magnification. The size of the lesion is essentially similar when compared to these prior studies. Left knee: Unchanged severe medial compartment narrowing with subchondral sclerosis and marginal osteophyte formation. Procedure Note Denise Johnson MD - 01/24/2023 EXAMINATION: XR KNEE STANDING ALIGNMENT AP LAT SKYLINE RIGHT CLINICAL HISTORY: s/p R TKA Evaluate new TKA (as entered by orderingprovider in the order requisition) TECHNIQUE: Separate images of the pelvis, knees and feet were acquired inthe AP projection with the patient standing. These images were stitched togetherto form a composite image of the pelvis and legs. AP and sunrise views ofbilateral knees, lateral view the right knee. COMPARISON: Right knee radiographs 12/22/2022. Bilateral knee radiographs 07/19/2022. Left knee radiographs 10/20/2007, which includes AP andRosenberg views of the right knee for comparison. Leg length views 10/20/2007. FINDINGS: There is diffuse osseous demineralization. Mechanical axes of the right leg passes through the central tibial tray. Mechanical axis left leg passes through the medial tibial plateau. Unchanged mild bilateral hip joint space narrowing. Unchanged smallossicles adjacent to the lateral margins of the bilateral acetabula. There is a catheter calcification of the upper right thigh. Bilateral tibiotalar joint spaces are preserved. Right knee: Status post right total knee arthroplasty. Nonspecificanterior knee soft tissue swelling and knee joint effusion. No periprosthetic fractureor bone resorption. Slight lateral subluxation of the patella. There is a 2.5 cm superior-inferior, 2.5 cm medial-lateral, and 2.0 cmAP collection of ring and arc calcifications in the medullary space of theright distal femur. No endosteal scalloping, cortical destruction, orperiostitis. This finding measured 2.9 cm superior-inferior and 2.2 cm medial-lateralon September 2007 and 2.7 cm superior-inferior by 2.4 cm medial-lateral by 2.4cm AP on November 2022. Slight differences in measurement likely correspond to(and projection and the degree of geometric magnification. The size of thelesion is essentially similar when compared to these prior studies. Left knee: Unchanged severe medial compartment narrowing withsubchondral sclerosis and marginal osteophyte formation. IMPRESSION 1. Uncomplicated right total knee arthroplasty. Nonspecific right kneejoint effusion and soft tissue swelling. 2. Slight lateral subluxation of the right patella. 3. Unchanged low-grade chondroid lesion of the distal right femur withno aggressive radiographic features. 4. Unchanged left knee osteoarthropathy. 5. Neutral alignment of the right knee and varus alignment of the leftknee. Thank you for letting us participate in the care of this patient. If youare a health care provider and have any questions regarding this report,please contact the number below. For patients who have questions please contactthe health pediatric acute care unit nurse that requested your imaging first. Julio Melissa MD IMG DX ORDERABLES documented in this encounter Visit Diagnoses Diagnosis S/P total knee arthroplasty, right Gastroesophageal reflux disease with esophagitis, unspecified whether hemorrhage documented in this encounter Care Teams Instrument Repair Specialist Relationship Specialty Start Date End Date Kennedi Shaver MD [address] [place] [address] [address] [place] [id number] PCP - General Family Medicine 08/02/20 06/24/24 documented as of this encounter
--- OUTSIDE RECORDS SUMMARY | 2024-09-11 15:20 | XMS_ITS | Encounter Summary ---
[place] [address] Care Team Providers Care Rn Case Management Name Role Phone Kennedi Shaver MD Primary Care Provider [phone] Reason for Visit * Reason Comments Medication Refill Encounter Details Date Type Department Care Team (Late st Contact Info) Description 03/25/2023 Specialty [place] [phone] Sulaiman Leon, [facility] Social History Tobacco Use Types Packs/Day Years Used Date Smoking Tobacco: Former Cigarettes 1977 Smokeless Tobacco: Never Alcohol Use Standard Drinks/Week Comments Not Currently 14 (1 standard drink = 0.6 oz pu re alcohol) [facility] Inpatient Questions Answer Date Recorded Does [...] this encounter Progress Notes * Sulaiman Leon [facility] - 03/25/2023 4:19 PM EDT Clinical Management Plan: Refill Specialty Pharmacy Consultation; Sulaiman Leon [facility] Comprehensive Medication Management (CMM) Chidi Carbone is [...] Known Allergies Medication Reconciliation Discrepancies (compared to [facility] med list) No Specialty Pharmacy Refill Questionnaire More data exists 03/25/2023 Refill Questionnaire What is the name of the specialty medication you are refilling? ZYTIGA Are you taking any new medications? No Any new medical condition? No Any new allergies? No Any new side effects that are bothersome? No What date will you need this fill by? 04/01/2023 Adherence: Any missed doses? No Patient understands no changes to current drug regimen were made. Sulaiman Leon RPH 03/25/23 4:20 PM documented in this encounter Plan of Treatment Upcoming Encounters Date Type Department Care Team (Latest Contact Info) Description 09/29/2024 4:30 PM EST Hospital Encounter [place] [phone] Lizet Wilkes MD [facility] [place] [address] [place] [address] 09/29/2024 4:30 PM EST - 09/29/2024 5:00 PM EST Surgery [place] [phone] Lizet Wilkes MD [facility] [place] [address] EGD, UPPER GI ENDOSCOPY (WRVU 2.09) 11/09/2024 10:00 AM EST Laboratory Appointment Lab at [facility] Hematology Oncology [address] [place] [phone] 11/09/2024 11:00 AM EST Office Visit Hematology [place] [phone] Faith Caba MD [facility] [address] [place] [address] 11/09/2024 12:00 PM EST Appointment Hematology [place] [phone] Scheduled Procedures Name Priority Associated Diagnoses Date/Ti me EGD, UPPER GI ENDOSCOPY (WRVU 2.09) Gastroesophageal reflux disease with esophagitis, unspecified whether hemorrhage 09/29/2024 4:30 PM EST documented as of this encounter Goals Goal Patient Goal Type Associated Problems Recent Progress Patient-Stated? Author [facility] Medication Compliance and Understanding Patient Facing Action Plan Curly Nicolas, [facility] Note: The patient? s goal is to continue positive results of oral chemotherapy by maintaining improved labs PSA or stable scans in clinic for the upcoming year. documented as of this encounter Visit Diagnoses Not on filedocumented in this encounter Care Teams Rn Case Management Relationship Specialty Start Date End Date Kennedi Shaver MD [facility] [address] [place] [address] PCP - General Family Medicine 08/02/20 06/24/24 documented as of this encounter
--- OUTSIDE RECORDS SUMMARY | 2024-09-11 15:20 | XMS_ITS | Encounter Summary ---
Author Organization [facility] [place] [address] Care Team Providers Care Department Operations Manager Name Role Phone Kennedi Shaver MD Primary Care Provider [phone] Encounter Details Date Type Department Care Team (Latest Contact Info) Description 01/24/2023 Travel Social History Tobacco Use Types Packs/Day Years Used Date Smoking Tobacco: Former Cigarettes 1977 Smokeless Tobacco: Never Alcohol Use Standard Drinks/Week Comments Not Currently 14 (1 standard drink = 0.6 oz pu re alcohol) [facility] Inpatient Questions Answer Date Recorded [...] (Latest Contact Info) Description 09/29/2024 4:30 PM [facility] Hospital En[place] [phone] Lizet Wilkes MD [facility] [place] [address] 09/29/2024 4:30 PM EST - 09/29/2024 5:00 PM EST Surgery Gastroenterology at [place] [phone] Lizet Wilkes MD [facility] [place] [address] EGD, UPPER GI ENDOSCOPY (WRVU 2.09) 11/09/2024 10:00 AM EST Laboratory Appointment Lab at [facility] Hematology Oncology [address] [place] [phone] 11/09/2024 11:00 AM EST Office Visit Hematology and Oncology at [place] [phone] Faith Caba MD [facility] DR HEMATOLOGY [place] [address] 11/09/2024 12:00 PM EST Appointment Hematology [place] [phone] Scheduled Procedures Name Priority Associated Diagnoses Date/Ti me EGD, UPPER GI ENDOSCOPY (WRVU 2.09) Gastroesophageal reflux disease with esophagitis, unspecified whether hemorrhage 09/29/2024 4:30 PM EST documented as of this encounter Goals Goal Patient Goal Type Associated Problems Recent Progress Patient-Stated? Author [facility] Medication Compliance and Understanding Patient Facing Action Plan Curly Nicolas, [facility] Note: The patient? s goal is to continue positive results of oral chemotherapy by maintaining improved labs PSA or stable scans in clinic for the upcoming year. documented as of this encounter Visit Diagnoses Not on filedocumented in this encounter Care Teams Department Operations Manager Relationship Specialty Start Date End Date Kennedi Shaver MD [facility] [address] [place] [address] PCP - General Family Medicine 08/02/20 06/24/24 documented as of this encounter
--- OUTSIDE RECORDS SUMMARY | 2024-09-11 15:20 | XMS_ITS | Encounter Summary ---
Author Organization [facility] [place] [address] Care Team Providers Care Supervisor [employer] Name Role Phone Kennedi Shaver MD Primary Care Provider [phone] Encounter Details Date Type Department Care Team (Latest Contact Info) Description 10/29/2023 9:27 AM EST - 10/29/2023 11:59 PM [facility] Hospital Encounter [place]ology [place] [address] Neoplasm of prostate, distant metastasis staging category [...] 4:30 PM EST Hospital [place] [address] Lizet Wilkes MD [facility] [place] [address] 09/29/2024 4:30 PM EST - 09/29/2024 5:00 PM EST [place] [phone] Lizet Wilkes MD [facility] [place] [address] EGD, UPPER GI ENDOSCOPY (WRVU 2.09) 11/09/2024 10:00 AM EST Laboratory Appointment [place] [facility] [place] [address] [place] [address] [phone] 11/09/2024 11:00 AM EST Office Visit [place]ology [place] [phone] Faith Caba MD [facility] DR HEMATOLOGY [place] [address] 11/09/2024 12:00 PM EST Appointment Hematology [place] [phone] Scheduled Procedures Name Priority Associated Diagnoses Date/Ti me EGD, UPPER GI ENDOSCOPY (WRVU 2.09) Gastroesophageal reflux disease with esophagitis, unspecified whether hemorrhage 09/29/2024 4:30 PM EST documented as of this encounter Goals Goal Patient Goal Type Associated Problems Recent Progress Patient-Stated? Author DH [place] Medication Compliance and Understanding Patient Facing Action Plan Curly Nicolas, [facility] Note: The patient? s goal is to continue positive results of oral chemotherapy by maintaining improved labs PSA or stable scans in clinic for the upcoming year. 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 DIFFERENTIAL, AUTOMATED Routine 10/29/2023 9:39 AM EST Neoplasm of prostate, 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 CBC (WITH DIFF) Routine 10/29/2023 9:39 AM EST Neoplasm of prostate, 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 TESTOSTERONE, TOTAL Routine 10/29/2023 9 :39 AM EST Neoplasm of prostate, 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 PSA (ULTRASENSITIVE) Routine 10/29/2023 9:39 AM EST Neoplasm of prostate, 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 COMPREHENSIVE METABOLIC PANEL Routine 10/29/2023 9:39 AM EST Neoplasm of prostate, 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 Monocyte Abs 0.7 0.3 - 0.9 x10(3)/[facility] Eos % 1.7 % [facility] Eosinophils Abs 0.1 0.0 - 0.4 x10(3)/[facility] Basophil % 0.4 % [facility] Baso Absolute 0.0 0.0 - 0.1 x10(3)/[facility] Immature Gran % 0.30 % [facility] Comment: Immature granulocytes(IG's)percentage and absolute count will include metamyelocytes, myelocytes, and promyelocytes. Blood smears from CBCs yielding IG's will be scanned manually for concordance. If this scan disagrees with the automated IG or if promyelocytes are noted, a manual differential will be performed. Immature Gran Absolute 0.02 0.00 - 0.04 x10(3)/[facility] Blood 10/29/2023 9:39 AM EST 10/29/2023 9:44 AM EST Narrative Resulting Agency Comment Spec In Lab Faith Caba MD HEMATOLOGY ORDERABLE S Performing Organization Address City/[facility]/ZIP Co de Phone Number [facility] [place] [address] * (ABNORMAL) Hemogram (10/29/2023 9:39 AM EST) White Blood Cell 6.9 4.0 - 9.5 x10(3)/mc L [facility] Red Blood Cell 4.30(L) 4.58 - 5.54 x10(6)/mc L [facility] Hemoglobin 12.5(L) 13.7 - 16.5 g/dL [facility] Hematocrit 37.9(L) 40.5 - 48.5 % [facility] Mean Cell Volume 88.1 82.9 - 93.1 fL [facility] Mean Cell Hemoglobin 29.1 27.5 - 32.1 pg [facility] Mean Cell Hemoglobin Concentration 33.0 32.0 - 35.7 g/dL [facility] Platelet 261 145 - 357 x10(3)/mc L [facility] RDW Standard Deviation 45.1(H) 36.0 - 45.0 fL [facility] RDW coefficient of variation 14.0(H) 11.4 - 13.8 % [facility] Mean Platelet Volume 9.4 7.6 - 12.9 fL [facility] NRBC% auto 0.0 % [facility] NRBC Absolute 0.000 0.000 - 0.000 x10(3)/mc L [facility] Blood 10/29/2023 9:39 AM EST 10/29/2023 9:44 AM EST Narrative Resulting Agency Comment Spec In Lab Faith Caba MD HEMATOLOGY ORDERABLE S Performing Organization Address [facility]/[facility] Co de Phone Number [facility] [place] [address] * (ABNORMAL) Comprehensive metabolic panel (non-fasting) (10/29/2023 9:39 AM EST) Glucose 117 65 - 199 mg/dL [facility] Comment:Diabetes: >=200 mg/d L plus symptoms Blood Urea Nitrogen 15 10 - 20 mg/dL [facility] Creatinine 0.76(L) 0.80 - 1.50 mg/dL [facility] Sodium 143 135 - 145 mmol/L [facility] Potassium 4.1 3.5 - 5.0 mmol/L [facility] Comment: Please note: ??Patients with WBC >100,000 may have falsely elevated Potassium levels. ??For accurate Potassium quantification in these patients send serum separator tube (gold top) for subsequent determinations. ??Contact the Clinical Chemistry Laboratory if there are any questions. Chloride 105 98 - 107 mmol/L [facility] Carbon Dioxide 25 22 - 31 mmol/L [facility] Anion Gap 13 5 - 15 mmol/L [facility] Calcium 9.4 8.5 - 10.5 mg/dL [facility] Protein, Total 6.9 6.1 - 8.0 g/dL [facility] Albumin 4.5 3.2 - 5.2 g/dL [facility] Aspartate Aminotransferase 15 0 - 39 unit/L [facility] Alanine Aminotransferase 8 0 - 55 unit/L [facility] Alkaline Phosphatase 110 40 - 130 unit/L [facility] Bilirubin, Total 0.6 0.2 - 1.3 mg/dL [facility] Est Glomerular Filtration Rate 92 >=60 mL/min/1. 73 m?? [facility] Comment: This patient's estimated GFR was [...] Caba MD CHEMISTRY ORDERABLES Performing Organization Address City/State/[facility] de Phone Number [facility] [place] [address] * PSA (Ultrasensitive) (10/29/2023 9:39 AM EST) Prostate Specific Antigen (Ultrasensitive) <0.01 0.00 - 4.00 ng/mL [facility] Comment: PLEASE NOTE: The above reference [...] Caba MD CHEMISTRY ORDERABLES Performing Organization Address [facility] de Phone Number [facility] [place] [address] * (ABNORMAL) Testosterone, total (10/29/2023 9:39 AM EST) Testosterone <0.12(L) 1.93 - 7.40 ng/mL [facility] Comment: Pediatric Reference Ranges: ? Males [...] Stated reference ranges derived from review of [facility] Testosterone II 07/2022, v2.0 Blood 10/29/2023 9:39 AM EST 10/29/2023 9:44 AM EST Narrative Resulting Agency Comment Spec In Lab aFith Caba MD CHEMISTRY ORDERABLES [facility] [place] [address] documented in this encounter Visit Diagnoses Diagnosis Neoplasm of prostate, 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 Gastroesophageal reflux disease with esophagitis, unspecified whether hemorrhage documented in this encounter Care Teams Supervisor [employer] Relationship Specialty Start Date End Date Kennedi Shaver MD [address] [place] [address] PCP - General Family Medicine 08/02/20 06/24/24 documented as of this encounter
--- OUTSIDE RECORDS SUMMARY | 2024-09-11 15:21 | XMS_ITS | Encounter Summary ---
[place] [address] Care Team Providers [facility] [employer] Name Role Phone Kennedi Shaver MD Primary Care Provider [phone] Reason for Visit * Auth/Cert (Routine) Specialty Diagnoses / Procedures Referred By Blaine t Referred To Contact Diagnoses Right knee osteoarthritis Procedures PRO ARTHROPLASTY KNEE CONDYLE & PLATEAU MEDIAL & LAT COMPARTMENTS TOTAL KNEE ARTHROPLASTY (WRVU 20.72) MODIFIER,GMK SPHERE EFFICIENCY CR KNEE,MEDACTA Julio Melissa MD [facility] Referral ID Status Reason Start Date Expiration Date Visits Re quested Visits Authorized [id number] 1 1 Encounter Details Date Type Department Care Team (Late st Contact Info) Description 12/19/2022 10:22 AM EDT - 12/19/2022 1:07 PM EDT Surgery [place] [address] Julio Melissa MD TOTAL KNEE ARTHROPLASTY (WRVU 19.6) Social History Tobacco Use Types Packs/Day Years [...] Sign Reading Time Taken Comments Blood Pressure 131/70 12/19/2022 1:00 PM EDT Pulse 43 12/19/2022 1:00 PM EDT Temperature 36.4 ??C (97.5 ??F) 12/19/2022 12:20 PM E DT Respiratory Rate 15 12/19/2022 1:00 PM EDT Oxygen Saturation 97% 12/19/2022 1:00 PM EDT Inhaled Oxygen Concentration - - Weight 82.6 kg (182 lb 3.2 oz) 12/19/2022 8:30 A M EDT Height 177.8 cm (5' 10) 12/19/2022 8:30 AM EDT Body Mass Index 26.14 12/19/2022 8:30 AM EDT documented in this encounter Discharge Instructions * Patient Instructions* Doris Pearson APRN - 12/19/2022 12:49 PM EDT Activity: 1. Your weight-bearing status is - weight bearing as tolerated of right leg. 2. Remember to use a walker or crutches at all times for balance and protection. Your physical therapist may progress you to using a cane when appropriate. 3. Flexion AND extension are important to work on at home. You should NOT place a pillow under youroperative knee. To help with extension you can place a pillow under your heel or lower leg or placed lengthwise along the operative leg. Again DO NOT place a pillow under the operated knee for comfort. Anti-coagulation: Rivaroxaban - You have been discharged on rivaroxaban (Xarelto) 10mg daily for 30days from surgery. This medication will help decrease your chance of developing a blood clot. Afteryour dose on 01/18/23, stop the rivaroxaban. Diet: Resume your usual diet but increase your intake of fluids and fiber while you are on narcoticpain meds to prevent constipation. Driving: None until you are cleared to do so by your Orthopedic surgeon. You should not drive whileyou are on narcotic pain meds as they can affect your judgment and reaction time. Call your surgeonwith any questions/concerns. Medications: 1. The pain medication you are on can cause constipation so increase your intake of fluids and fiber while you are on them. The stool softener, Pericolace, that has been prescribed can also be taken to facilitate a bowel movement. You can also take an kdvn-ujo-txyoxnv medication, Miralax if needed to combat constipation. 2. If you need a renewal on your narcotic pain medication, you need to give the Orthopedic clinic enough time to process your request. This can take up to three days, so plan accordingly. 3. Continue acetaminophen (Tylenol) 1,000mg every 8 hours around the clock until 12/29/22, (for ten days after your surgery). This can be effective in controlling pain along with your other medications. After that you can take Tylenol as needed per package insert. Do not take more than 3,000mg of acetaminophen in a 24 hour period. 4. You have been discharged on a short acting narcotic, oxycodone. You will be on this medication for a limited period of time only. Take the smallest dose possible to control your pain. As your painimproves take smaller, less frequent doses. You may break the tablet to achieve a smaller dose. 5. Because or your history of a GI bleed, you should not plan to take NSAIDs regularly. Please use sparingly only if needed for additional pain control. 6. Continue your pantoprazole as before surgery. Shower (internal sutures): 1. You can shower but remember your activity limitations and always have a chair available for balance and protection. DO NOT submerge the dressing/incision. 2. (Mepilex) Do not let water run over the operative dressing. If it becomes wet lightly pat the dressing dry. DO NOT submerge the incision. When this operative dressing is removed you can let water gently run over the incision. Wound (Mepilex): 1. You do NOT have any external susan or sutures in place. Your sutures are internal and will be absorbed over time. 2. You have a Mepilex dressing in place. Do not lift the edge of the Mepilex dressing to inspect the incision, it will not re-adhere. Remove your operative dressing 7 days after your surgery (12/26/22). When it is removed you can leave the incision open to air or cover it with a light dressing. Somepatients have an additional item called Prineo on their skin. If you have this it will appear as a mesh dressing directly over the incision. Please leave this in place until your follow up with orthopedics. 3. If you have lots of drainage when you get home (and it is before 12/26/22), remove the operative dressing and replace it with dry sterile gauze. Continue with daily dressing changes (and as needed)until the drainage stops, then remove the dressing and leave the incision open to air or lightly covered. Misc: Remember that ICE and elevation are very important after surgery to help decrease swelling and control pain. Use ICE for 20-30 minutes at a time and keep your leg elevated as much as possible. Call your doctor ([phone]) if you develop: Fever greater than 100.5 Severe nausea or vomiting Increasing pain that is not controlled by pain medications Increasing redness, swelling, or drainage from incisions Change in sensation FOLLOW-UP APPOINTMENTS: 1. [place] [facility] [place] indicated below in Future Appointment and Orders. 2. You will need to have x-rays prior to your follow-up appointment on 01/24. Please come to Radiology, desk 3T, 1 hour BEFORE that appointment for those x-rays. Future Appointments Date Time Provider Department Center 01/15/2023 9:00 AM LABORATORY, TE[place] [facility] [place] [facility] [place] 01/15/2023 10:00 AM Faith Caba MD [facility] [place] [facility] [place] 01/15/2023 11:00 AM ACCESS ROOM [facility] [place] [facility] [place] 01/24/2023 10:00 AM [facility] DX ROOM 1 Xray [facility] Rad 01/24/2023 10:40 AM Julio Melissa MD [facility] [place] [address] [place] [address] If you have questions or concerns: Saturday through Saturday, 8 AM - 5 PM, please call Dr. Julio Melissa MD's office at . If it is after 5 PM, the weekend, or holidays, please call and ask to speak with theOrthopedic resident on-call. * Attachments The following attachments cannot be sent through Care Everywhere. * Direct Oral Anticoagulants: Non-Vitamin K Antagonist (Moroccan) documented in this encounter Medications at Time [...] muscle. Once every 3 months, dosage unknown oxyCODONE (Roxicodone) 5 mg tablet Take 1-2 tablets by mouth every 4 hours as needed for Pain (Acute post-op surgical pain). 42 tablet 12/20/2022 12/25/2022 rivaroxaban (Xarelto) 10 mg tablet Take 1 tablet by mouth daily. Take for 30 days after surgery. Last day = 01/18/23 29 tablet 12/21/2022 04/16/2023 polyethylene glycoL (Miralax) 17 gram oral powder packet Take 17 g by mouth 2 times daily as needed (constipation). 12/20/2022 01/24/2023 senna-docusate (Pericolace) 8.6-50 mg Tablet Take 2 tablets by mouth 2 times daily as needed for Constipation. 12/20/2022 01/24/2023 predniSONE (Deltasone) 5 mg Tablet Take 1 tablet by mouth daily. 30 tablet 11 11/14/2022 09/20/2023 abiraterone (Zytiga) 500 mg TabletIndications:Neopl asm of prostate, 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 Take 2 tablets by mouth daily. Brand name only. 60 tablet 11 09/11/2022 09/20/2023 documented as of this encounter Progress Notes * Uli Ríos RN - 12/20/2022 2:44 PM EDT [facility] Short Stay Unit Discharge Note All relevant discharge milestones have been met by the patent. After Visit Summary and discharge teaching reviewed with the patient. IV access has been discontinued. All personal belongings have been returned to the patient/family upon their departure from the unit. Patient has been discharged to home The patient has been discharged without VNA services. Given paperwork for [facility].No D/C summary avail to be sent. * Katalina Arias, PT - 12/20/2022 10:11 AM EDT Physical Therapy Evaluation Patient profile: Chidi Carbone is a 77 y.o. male admitted on 12/19/2022 for Right Total Knee Arthroplasty. Patient with the following active problems: Past Medical History: Diagnosis Date ??? HTN (hypertension) ??? Insomnia ??? GIRISH (obstructive sleep apnea) ??? Prostate cancer Active Non-Hospital Problems Diagnosis ??? GIRISH (obstructive sleep apnea) ??? Acute blood loss anemia ??? GI bleed ??? Hypertension ??? 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 GERD (gastroesophageal reflux disease) Past Surgical History: Procedure Laterality Date ??? IR ARTERIOGRAM MESENTERIC 08/15/2022 IR Arteriogram Mesenteric 08/15/2022 Santo Duarte MD [facility] INTERVENTIONL RAD ? ? PRO ARTHROPLASTY KNEE CONDYLE & PLATEAU MEDIAL & LAT COMPARTMENTS Right 12/19/2022 TOTAL KNEE ARTHROPLASTY (WRVU 19.6) performed by Julio Melissa MD at [facility] MAIN OR ??? PRO COLONOSCOPY, DIAGNOSTIC N/A 04/19/2015 COLONOSCOPY, DIAGNOSTIC performed by Nino Rocha MD at [facility] ENDOSCOPY ??? PRO COLONOSCOPY, DIAGNOSTIC N/A 08/16/2022 COLONOSCOPY, DIAGNOSTIC performed by Bubba Wallace MD at [facility] ENDOSCOPY ??? PRO COLONOSCOPY, FLEX, W/CONTROL, BLEEDING 08/16/2022 COLONOSCOPY; W CONTROL OF BLEEDING, ANY METHOD performed by Bubba Wallace MD at [facility] ENDOSCOPY ??? PRO DRESSING CHANGE UNDER ANESTHESIA N/A 06/04/2019 DRESSING CHANGE (FOR OTHER THAN RAUSCH) UNDER ANES. (WRVU 0.86) performed by Rodri Villa MD at [facility] MAIN OR ? ? PRO EDG FLEXIBLE TRANSORAL ABLATE TUMOR POLYP/LESION W/DILATION & WIRE N/A 04/19/2015 EGD, TRANSORAL; WITH ABLATION OF TUMOR(S), POLYP(S), OR OTHER LESION(S) performed by Nino Rocha MD at [facility] ENDOSCOPY ??? PRO LAP, ESOPHAGOGAST FUNDOPLASTY 03/08/2014 LAPAROSCOPIC MODESTO FUNDOPLASTY performed by Surendra Garcia MD at [facility] MAIN OR ??? PRO PREP SITE TRUNK/ARM/LEG 1ST 100 SQ CM/1PCT Right 06/04/2019 SURGICAL PREP/CREATION RECIPIENT SITE, FIRST 100 SQ CM, LEGS (WRVU 3.65) performed by Rodri Villa MD at [facility] MAIN OR ? ? PRO SPLIT GRFT TRUNK, ARM, LEG <100SQCM Right 06/04/2019 SPLIT THICK SKIN GRAFT,100 SQ CM OR LESS, LEGS (WRVU 9.9) performed by Rodri Villa MD at [facility] MAIN OR ??? PRO UPPER GI ENDOSCOPY, BIOPSY 11/27/2011 UPPER GASTROINTESTINAL ENDOSCOPY,WITH BIOPSY SINGLE OR MULTIPLE performed by NINO ROCHA I at [facility] ENDOSCOPY ??? PRO UPPER GI ENDOSCOPY, BIOPSY 04/22/2012 UPPER GASTROINTESTINAL ENDOSCOPY,WITH BIOPSY SINGLE OR MULTIPLE performed by NINO ROCHA I at [facility] ENDOSCOPY ??? PRO UPPER GI ENDOSCOPY, BIOPSY 05/12/2013 UPPER GASTROINTESTINAL ENDOSCOPY,WITH BIOPSY SINGLE OR MULTIPLE performed by Nino Rocha MD at [facility] ENDOSCOPY ??? PRO UPPER GI ENDOSCOPY, BIOPSY 10/20/2013 UPPER GASTROINTESTINAL ENDOSCOPY,WITH BIOPSY SINGLE OR MULTIPLE performed by Nino Rocha MD at [facility] ENDOSCOPY ??? PRO UPPER GI ENDOSCOPY, BIOPSY N/A 06/29/2015 EGD WITH BIOPSY performed by Nino Rocha MD at [facility] ENDOSCOPY ??? PRO UPPER GI ENDOSCOPY, DIAGNOSTIC N/A 08/15/2022 EGD, UPPER GI ENDOSCOPY performed by Bubba Wallace MD at [facility] ENDOSCOPY ??? UPPER GI ENDOSCOPY, EXAM 02/13/2011 UPPER GI ENDOSCOPY performed by NINO ROCHA I at [facility] ENDOSCOPY ??? UPPER GI ENDOSCOPY, EXAM 05/12/2013 UPPER GI ENDOSCOPY performed by Nino Rocha MD at [facility] ENDOSCOPY ??? UPPER GI ENDOSCOPY, EXAM N/A 04/19/2015 UPPER GI ENDOSCOPY performed by Nino Rocha MD at [facility] ENDOSCOPY ??? UPPER GI ENDOSCOPY, TUMOR ABLATN 04/22/2012 ENDOSCOPY, UPPER GI, W\ABLATION TUMOR\POLYP\LESION performed by NINO ROCHA I at [facility] ENDOSCOPY Social History: Home set-up: Pt lives with his in a multi-level home. They have set up a bed for him on the first level, where there's a half bath. His daughter will be staying with him until Saturday, and his sister will come to provide assist on Saturday. Bathroom Set-up: 1/2 bath on 1st level, walk-in shower with shower chair on 2nd level. Stairs: 6STE with wide B rails Baseline Mobility: Pt is typically independent with ADLs, IADLs, and mobility. He ambulates withouta device in the home, and uses a cane in the community. 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 Equipment at home: cane, FWW, commode Fall history: none reported Precautions/Special Considerations: at risk to fall, WBAT RLE Mobility and Positioning Recommendations: ?? Pt. to utilize FWW and 1 assist for ambulation and transfers with nursing. ?? Please encourage up to chair for meal times as able. ?? Pt encouraged to ambulate frequently with staff, getting into the bathroom for toileting and walking out in the [place] >/= 3 times daily as able. Subjective: ???Wow I really didn't think it would hurt this much?? Objective: Pt seen for evaluation today. 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 CGA from lower height w/c Stand to Sit: SBA, VCs for hand placement, dec ecc control Gait: Distance: 50' Device used: FWW Level of assist: SBA Gait mechanics: demo's antalgic gait, dec gait speed, dec step length, heavy reliance on UE support, forward flexed posture. Stairs: negotiated x6 stairs with step-to, side-stepping pattern with BUE support on R rail, heavy reliance on UE support, forward flexed posture. Poor control initially on ascent with R SLS, improved on later reps Balance: Sitting Static: good Sitting Dynamic: good Standing Static: fair with FWW Standing Dynamic / Gait: fair with FWW Therex: provided with post-operative TKA exercise handout, pt is familiar with and verbalizes understanding of exercises. Education: patient has been educated on Bed mobility, Transfers, Assistive device/technique, Stairs, Exercise, Positioning, Safety , Precautions/protocol, Gait , Activity pacing/Energy conservation, Role of therapy, Balance and Discharge planning and verbalizes understanding. Patient status, treatment, and mobility recommendations discussed with nursing. Assessment: Chidi Carbone was seen today for physical therapy evaluation. Pt presents s/p R TKA.He reports significantly increased pain this day vs immediately post-op, but despite that, was agreeable to participate in mobility. Upon evaluation, patient presents with decreased strength, decreased ROM, impaired balance, impaired activity tolerance, pain, impaired gait mechanics and impaired endurance, resulting in functional limitation. Patient was limited by pain and fatigue this day, but with family support and home health services, will be able to return home once medically ready. No further skilled inpatient PT needs at this time. Discharge Recommendations: Based on the current findings, Anticipated Discharge Disposition (PT): home with supervision, home with home health when medically ready for hospital discharge. Discharge recommendation is based on the patient's current physical impairments, prior functional status, potential to return to prior level of function, patient motivation, reported home support, potential for functional gains, current level of endurance, reported home environment and anticipated trajectory of progress and may change based on patient progress during this hospitalization. Consult Recommendations: No other consults recommended at this time. Equipment needs: Anticipated Equipment Needs at Discharge (PT): None Plan: Therapy Frequency (PT): evaluation only. Patient/family understand and agree with plan as stated above. 2017 PT Evaluation Code Rationale: ?? Diagnosis & Pertinent Co-Morbidities, personal factors, and present illness affecting Plan of Care: (see above); Additional personal factors or co- morbidities that impact plan: ?? Total # of Factors: 0 1-2 3+ X ?? Examination of body system impairments, functional limitations and behaviors, and/or participation restrictions. Addressing 1-2 elements Addressing 3 + elements X Addressing 4 + elements ?? Clinical presentation: See assessment above. Stable/Uncomplicated Evolving/Fluctuating Symptoms Unstable/Unpredictable X- pain ?? Clinical decision making of moderate complexity based on pt's functional performance as outlinedin this evaluation. Time IN / OUT: Total Minutes, Physical Therapy: 43 Billing Code: mod complexity eval Katalina Arias PT Pager: [phone] Physical Therapy Inpatient Rehabilitation Department * Radha Owen MD - 12/20/2022 5:07 AM EDT ORTHOPAEDIC SURGERY INPATIENT PROGRESS NOTE Patient Name: Chidi Carbone Age: 77 y.o. Surgery/Issue: Right Total Knee Arthroplasty Attending: Dr. Melissa Date of surgery: 12/19/2022 SUBJECTIVE / INTERVAL HISTORY: Pain well controlled. Denies CP, SOB, nausea, vomiting, numbness/weakness. Tolerating PO, yet to void. AM labs in process FOCUSED REVIEW OF SYSTEMS: as above. Active Hospital Problems Diagnosis ??? S/P total knee arthroplasty, right Resolved Hospital Problems No resolved problems to display. Active Non-Hospital Problems Diagnosis ??? GIRISH (obstructive sleep apnea) ??? Acute blood loss anemia ??? GI bleed ??? Hypertension ??? 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 GERD (gastroesophageal reflux disease) MEDICATIONS: ??? ferrous sulfate EC (FeroSul) tablet 325 mg ??? finasteride (Proscar) tablet 5 mg ??? losartan (Cozaar) tablet 25 mg ??? pantoprazole EC (Protonix) tablet 40 mg ??? predniSONE (Deltasone) tablet 5 mg ??? modafiniL (Provigil) tablet 100 mg ??? zolpidem (Ambien) tablet 10 mg ??? sodium chloride 0.9 % (flush) (BD PosiFlush Normal Saline 0.9) flush 5 mL ??? sodium chloride 0.9 % (flush) (BD PosiFlush Normal Saline 0.9) flush 5-20 mL ??? lidocaine (Xylocaine) 1% (10 mg/mL) injection 3 mg ??? senna-docusate (Pericolace) 8.6-50 mg per tablet 2 tablet ??? acetaminophen (Tylenol) tablet 1,000 mg ??? polyethylene glycoL (Miralax) packet 17 g ??? bisacodyl EC (Dulcolax) tablet 10 mg ??? bisacodyL (Dulcolax) suppository 10 mg ??? rivaroxaban (Xarelto) tablet 10 mg ??? povidone-iodine (Betadine Ophthalmic Prep) 5 % ophthalmic solution ??? QSsgfkvfanp-JAZXXLVljvz-vnpATUtwi-ketorolac (BABAR) (2.46 mg-0.005 mg-0.0008 mg-0.3 mg/mL) salome-articular inj soln in sodium chloride ??? MEDICATION NONFORMULARY REQUEST 1,000 mg ??? lidocaine (Lidoderm) 5% patch 1 patch ??? tamsulosin (Flomax) capsule 0.4 mg ??? oxyCODONE (Roxicodone) tablet 5 mg OBJECTIVE: Temp: [36.1 ??C (97 ??F)-36.8 ??C (98.2 ??F)] Heart Rate: [42-63] Resp: [12-22] BP: (107-153)/(66-107) Intake/Output Summary (Last 24 hours) at 12/20/2022 0507 Last data filed at 12/20/2022 0401 Gross per 24 hour Intake 1280 ml Output 1650 ml Net -370 ml Body mass index is 26.14 kg/m??. Exam: General: NAD, awake/alert CV: RRR assessed peripherally Resp: Breathing comfortably on RA RLE: Dressing c/d/i. In cryocuff. Motor intact to EHL, FHL, TA. Sensation intact in foot/calf. Brisk capillary refill distally. Lab Results Component Value Date NA 142 11/08/2022 K 4.5 11/08/2022 CL 108 (H) 11/08/2022 CO2 21 (L) 11/08/2022 BUN 21 (H) 11/08/2022 CREATININE 0.94 11/08/2022 GLUCOSE 98 11/08/2022 CALCIUM 9.1 11/08/2022 Lab Results Component Value Date WBC 6.0 11/08/2022 HGB 10.2 (L) 11/08/2022 HCT 33.1 (L) 11/08/2022 MCV 80.5 (L) 11/08/2022 PLATELET 287 11/08/2022 Lab Results Component Value Date INR 1.1 11/08/2022 ASSESSMENT / PLAN: Chidi Carbone is a 77 y.o. male 1 Day Post-Op s/p R TKA. Progressing well with stable vitals. Discharge pending evaluation by PT/OT on POD1. Activity: WBAT Closure: Resorbable sutures Dressing: mepilex x 7d Anticoagulation: Rivaroxaban 10 mg qAM for 30 days Antibiotics: periop Consults: PT/OT Dispo: pending PT/OT eval Follow-up: as scheduled Radha Owen MD 12/20/2022 Future Appointments Date Time Provider Department Center 01/15/2023 9:00 AM LABORATORY, TE[place] [facility] [place] [facility] [place] 01/15/2023 10:00 AM Faith Caba MD [facility] [place] [facility] [place] 01/15/2023 11:00 AM ACCESS ROOM [facility] [place] [place] [facility] [place] 01/24/2023 10:00 AM [facility] DX ROOM 1 MH Xray [facility] Rad 01/24/2023 10:40 AM Julio Melissa MD [facility] [place] [place] [facility] [place] Associated attestation - Julio Melissa MD - 12/20/2022 8:22 AM EDT Patient seen and examined on rounds. Agree with resident note. In brief, patient doing well this morning. Patient notes that he is urinated. His pain is controlled with pain medication. He is neurovascular intact. Likely discharge home today. Julio Melissa M.D. [place] Department of Orthopaedics * Martín Ramos RN - 12/19/2022 1:40 PM EDT VSS. SINUS BRADYCARDIA IN 40S OKAY PER ANESTHESIA. * Bertha Arrington MD - 12/19/2022 12:44 PM EDT ORTHOPAEDIC SURGERY INPATIENT PROGRESS NOTE Patient Name: Chidi Carbone Age: 77 y.o. Surgery/Issue: Right Total Knee Arthroplasty Attending: Dr. Melissa Date of surgery: 12/19/2022 SUBJECTIVE / INTERVAL HISTORY: Pain well controlled. Denies CP, SOB, nausea, vomiting, numbness/weakness. Tolerating PO, yet to void. FOCUSED REVIEW OF SYSTEMS: as above. Active Hospital Problems Diagnosis ??? S/P total knee arthroplasty, right Resolved Hospital Problems No resolved problems to display. Active Non-Hospital Problems Diagnosis ??? GIRISH (obstructive sleep apnea) ??? Acute blood loss anemia ??? GI bleed ??? Hypertension ??? 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 GERD (gastroesophageal reflux disease) MEDICATIONS: ??? [START ON 12/20/2022] ferrous sulfate EC (FeroSul) tablet 325 mg ??? finasteride (Proscar) tablet 5 mg ??? losartan (Cozaar) tablet 25 mg ??? pantoprazole EC (Protonix) tablet 40 mg ??? predniSONE (Deltasone) tablet 5 mg ??? modafiniL (Provigil) tablet 100 mg ??? zolpidem (Ambien) tablet 10 mg ??? sodium chloride 0.9 % (flush) (BD PosiFlush Normal Saline 0.9) flush 5 mL ??? sodium chloride 0.9 % (flush) (BD PosiFlush Normal Saline 0.9) flush 5-20 mL ??? lidocaine (Xylocaine) 1% (10 mg/mL) injection 3 mg ??? senna-docusate (Pericolace) 8.6-50 mg per tablet 2 tablet ??? acetaminophen (Tylenol) tablet 1,000 mg ??? traMADoL (Ultram) tablet 25 mg OR traMADoL (Ultram) tablet 50 mg ??? polyethylene glycoL (Miralax) packet 17 g ??? bisacodyl EC (Dulcolax) tablet 10 mg ??? bisacodyL (Dulcolax) suppository 10 mg ??? [START ON 12/20/2022] rivaroxaban (Xarelto) tablet 10 mg ??? povidone-iodine (Betadine Ophthalmic Prep) 5 % ophthalmic solution ??? DDeyojwuwcz-XMLUXFKvjht-sglZDZbbw-ketorolac (BABAR) (2.46 mg-0.005 mg-0.0008 mg-0.3 mg/mL) salome-articular inj soln in sodium chloride ??? [START ON 12/20/2022] MEDICATION NONFORMULARY REQUEST 1,000 mg ??? lidocaine (Lidoderm) 5% patch 1 patch ??? tamsulosin (Flomax) capsule 0.4 mg OBJECTIVE: Temp: [36.1 ??C (97 ??F)-36.8 ??C (98.2 ??F)] Heart Rate: [42-63] Resp: [12-22] BP: (111-153)/(69-107) Intake/Output Summary (Last 24 hours) at 12/19/20222056 Last data filed at 12/19/2022 1920 Gross per 24 hour Intake 1160 ml Output 1150 ml Net 10 ml Body mass index is 26.14 kg/m??. Exam: General: NAD, awake/alert CV: RRR assessed peripherally Resp: Breathing comfortably on RA RLE: Dressing c/d/i. In cryocuff. Motor intact to EHL, FHL, TA. Sensation intact in foot/calf. Brisk capillary refill distally. Lab Results Component Value Date NA 142 11/08/2022 K 4.5 11/08/2022 CL 108 (H) 11/08/2022 CO2 21 (L) 11/08/2022 BUN 21 (H) 11/08/2022 CREATININE 0.94 11/08/2022 GLUCOSE 98 11/08/2022 CALCIUM 9.1 11/08/2022 Lab Results Component Value Date WBC 6.0 11/08/2022 HGB 10.2 (L) 11/08/2022 HCT 33.1 (L) 11/08/2022 MCV 80.5 (L) 11/08/2022 PLATELET 287 11/08/2022 Lab Results Component Value Date INR 1.1 11/08/2022 ASSESSMENT / PLAN: Chidi Carbone is a 77 y.o. male Day of Surgery s/p R TKA. Progressing well with stable vitals. Discharge pending evaluation by PT/OT on POD1. Activity: WBAT Closure: Resorbable sutures Dressing: mepilex x 7d Anticoagulation: Rivaroxaban 10 mg qAM for 30 days Antibiotics: periop Consults: PT/OT Dispo: pending PT/OT eval Follow-up: as scheduled Bertha Arrington MD 12/19/2022 Future Appointments Date Time Provider Department Center 01/15/2023 9:00 AM [place], [place] [facility] [place] [address] [place] [address] 01/15/2023 10:00 AM Faith Caba MD [facility] [place] [facility] [place]/15/2023 11:00 AM ACCESS ROOM [facility] [place] [address] [place] [address] 01/24/2023 10:00 AM [facility] DX ROOM 1 Xray [facility] Rad 01/24/2023 10:40 AM Julio Melissa MD [facility] [place] [address] [place] [address] * Taylor Brown RN - 12/19/2022 12:37 PM EDT 1220: Break coverage done, vs's, patient complaining of pain right shoulder, no change from pre op,heating pad placed on shoulder, no complaints of incisional pain, bladder scan 775, will straight cath patient. documented in this encounter H&P Notes * Julio Melissa MD - 12/19/2022 9:11 AM EDT The patient's history and physical exam have been reviewed and completed. There has been no interval change from that of the pre-operative history and physical exam done within the last 30 days. documented in this encounter Miscellaneous Notes * Care Management - Sulaiman Perez RN - 12/20/2022 12:55 PM EDT The Patient has been provided a list of Home Health Agencies/DME vendors which serve their preferred geographic area. A letter describing our affiliations was reviewed with them and they were educated about their right to choose where referrals are placed. Patient requests referral to: [facility] ([place]) [address], [address] [place] [address] [facility] [place] [address] [place] [address] Expected date of discharge: 12/20 Referral routed to the Customer Service Cashier for matching with agency/vendor and to provide any required information. * Initial Assessments - Dev Alejandre OT - 12/20/2022 9:28 AM EDT Occupational Therapy Evaluation Patient profile: Chidi Carbone is a 77 y.o. male admitted on 12/19/2022 for Right Total Knee Arthroplasty. Past Medical History: Diagnosis Date ??? HTN (hypertension) ??? Insomnia ??? GIRISH (obstructive sleep apnea) ??? Prostate cancer Past Surgical History: Procedure Laterality Date ??? IR ARTERIOGRAM MESENTERIC 08/15/2022 IR Arteriogram Mesenteric 08/15/2022 Santo Duarte MD [facility] INTERVENTIONL RAD ? ? PRO ARTHROPLASTY KNEE CONDYLE & PLATEAU MEDIAL & LAT COMPARTMENTS Right 12/19/2022 TOTAL KNEE ARTHROPLASTY (WRVU 19.6) performed by Julio Melissa MD at [facility] MAIN OR ??? PRO COLONOSCOPY, DIAGNOSTIC N/A 04/19/2015 COLONOSCOPY, DIAGNOSTIC performed by Nino Rocha MD at [facility] ENDOSCOPY ??? PRO COLONOSCOPY, DIAGNOSTIC N/A 08/16/2022 COLONOSCOPY, DIAGNOSTIC performed by Bubba Wallace MD at [facility] ENDOSCOPY ??? PRO COLONOSCOPY, FLEX, W/CONTROL, BLEEDING 08/16/2022 COLONOSCOPY; W CONTROL OF BLEEDING, ANY METHOD performed by Bubba Wallace MD at [facility] ENDOSCOPY ??? PRO DRESSING CHANGE UNDER ANESTHESIA N/A 06/04/2019 DRESSING CHANGE (FOR OTHER THAN RAUSCH) UNDER ANES. (WRVU 0.86) performed by Rodri Villa MD at [facility] MAIN OR ? ? PRO EDG FLEXIBLE TRANSORAL ABLATE TUMOR POLYP/LESION W/DILATION & WIRE N/A 04/19/2015 EGD, TRANSORAL; WITH ABLATION OF TUMOR(S), POLYP(S), OR OTHER LESION(S) performed by Nino Rocha MD at [facility] ENDOSCOPY ??? PRO LAP, ESOPHAGOGAST FUNDOPLASTY 03/08/2014 LAPAROSCOPIC MODESTO FUNDOPLASTY performed by Surendra Garcia MD at [facility] MAIN OR ??? PRO PREP SITE TRUNK/ARM/LEG 1ST 100 SQ CM/1PCT Right 06/04/2019 SURGICAL PREP/CREATION RECIPIENT SITE, FIRST 100 SQ CM, LEGS (WRVU 3.65) performed by Rodri Villa MD at [facility] MAIN OR ? ? PRO SPLIT GRFT TRUNK, ARM, LEG <100SQCM Right 06/04/2019 SPLIT THICK SKIN GRAFT,100 SQ CM OR LESS, LEGS (WRVU 9.9) performed by Rodri Villa MD at [facility] MAIN OR ??? PRO UPPER GI ENDOSCOPY, BIOPSY 11/27/2011 UPPER GASTROINTESTINAL ENDOSCOPY,WITH BIOPSY SINGLE OR MULTIPLE performed by NINO ROCHA I at [facility] ENDOSCOPY ??? PRO UPPER GI ENDOSCOPY, BIOPSY 04/22/2012 UPPER GASTROINTESTINAL ENDOSCOPY,WITH BIOPSY SINGLE OR MULTIPLE performed by NINO ROCHA I at [facility] ENDOSCOPY ??? PRO UPPER GI ENDOSCOPY, BIOPSY 05/12/2013 UPPER GASTROINTESTINAL ENDOSCOPY,WITH BIOPSY SINGLE OR MULTIPLE performed by Nino Rocha MD at [facility] ENDOSCOPY ??? PRO UPPER GI ENDOSCOPY, BIOPSY 10/20/2013 UPPER GASTROINTESTINAL ENDOSCOPY,WITH BIOPSY SINGLE OR MULTIPLE performed by Nino Rocha MD at [facility] ENDOSCOPY ??? PRO UPPER GI ENDOSCOPY, BIOPSY N/A 06/29/2015 EGD WITH BIOPSY performed by Nino Rocha MD at [facility] ENDOSCOPY ??? PRO UPPER GI ENDOSCOPY, DIAGNOSTIC N/A 08/15/2022 EGD, UPPER GI ENDOSCOPY performed by Bubba Wallace MD at [facility] ENDOSCOPY ??? UPPER GI ENDOSCOPY, EXAM 02/13/2011 UPPER GI ENDOSCOPY performed by NINO ROCHA I at [facility] ENDOSCOPY ??? UPPER GI ENDOSCOPY, EXAM 05/12/2013 UPPER GI ENDOSCOPY performed by Nino Rocha MD at [facility] ENDOSCOPY ??? UPPER GI ENDOSCOPY, EXAM N/A 04/19/2015 UPPER GI ENDOSCOPY performed by Nino Rocha MD at [facility] ENDOSCOPY ??? UPPER GI ENDOSCOPY, TUMOR ABLATN 04/22/2012 ENDOSCOPY, UPPER GI, W\ABLATION TUMOR\POLYP\LESION performed by NINO ROCHA I at [facility] ENDOSCOPY Social History: Patient lives w/ his who he reports is an unreliable caregiver; however, his dter and then sister will be staying with him during the early stages of recovery. Home Setup: 7 SWATHI w/ a rail, once in the pt is all set up on the first level. Walk-in shower up stairs w/ shower seat. 1/2 bath on 1st floor. DME: FWW, (dter plans to get a commode), cane Baseline ADL/Mobility: Pt independent ADLs/IADLs, uses a cane for long distances/out of the home. 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 Precautions/Special Considerations: WBAT RLE, fall Subjective: This hurts more today than it did last night. Objective: Seen today for OT evaluation. Cognitive Status/Behavior: ?? Behavior / Mood: alert and cooperative ?? Alert and oriented to: person, place, time and situation ?? Follows commands: 75% of the time, requires increased time and requires repetition ?? Attention: WFL ?? Safety awareness: WFL and fully aware of deficits following education Vision & Perception: ?? WNL/WFL ?? corrective lenses for reading ?? corrective lenses for distance ?? corrective lenses multimedia instructional designer Communication: WFL Range of motion, strength, coordination: Hand dominance: right Bilateral UEs are within functional limitations LE limitations: LLE decreased strength w/ plan to TKA in future, RLE decreased strength, ROM, flexibility Sensation: subjectively intact to baseline, denies numbness/tingling Activities of Daily Living: Self-feeding: Independent Grooming: Pt set up and performed grooming tasks at EOB/bed level. Pt and dter have table set up near bed on first floor where pt will perform grooming vs use of kitchen sink. Dressing: Pt demonstrated the ability to doff socks, don underpants, pants, slippers w/ use of marine gear keeper, shoe horn while donning R slipper. Pt donned shirt in seated position following verbal cues for safety. Bathing: Pt plans to sponge bath at the kitchen sink until he is able to progress up the stairs w/ VNA PT. Pt verbalized understanding of stepping pattern in and out of shower and demonstrated understanding performing stairs w/ PT. Toileting: Transfer: conditional independence w/ FWW Hygiene: pt demonstrated UE ROM needed for independence w/ salome-care Functional Mobility: Supine to sit: independent Sit to stand: conditional independence w/ FWW Ambulation: conditional independence w/ FWW ~ 60' Stand to sit: conditional independence w/ FWW Sit to supine: independent Balance: Sitting balance: good Standing balance: fair w/ FWW Vitals: stable on RA Pain: 7/10 R knee following mobility Skin: dressing c/d/i Education: patient have been educated on Role of occupational therapy/rehabilitation, Transfers, Assistive device/technique, Adaptive equipment training, ADL, Positioning, Safety, Precautions/Protocol, Functional Mobility, Activity pacing/Energy conservation, Home Management, Balance, Recommendations and Discharge planning and verbalizes and demonstrates understanding. Patient status, treatment, and mobility recommendations discussed with nursing. Assessment: Pt has been seen for occupational therapy evaluation. Chidi Carbone presents with the following performance skill deficits and client factors: increased pain, decreased activity tolerance, decreased flexibility/ROM, decreased strength, decreased sitting/standing balance, precautions/bracing and compromised mobility status. These performance deficits have led to activity limitationsand participation restrictions in the following areas of occupation: dressing, bathing, grooming, toileting, transfers/mobility, rest/sleep, home management, leisure, driving and community mobility. However, despite the deficits listed above pt demonstrates the ability to perform bed mobility, all aspects of dressing, and short distance functional mobility w/ use of FWW. Pt educated on modified techniques, DME, and safety performing ADLs/IADLs, pt verbalized/demonstrated understanding. Anticipate that pt will return home with assistance from his family once medically ready. Do not anticipate further OT needs while hospitalized. Equipment Recommendations: Equipment Needs Upon Discharge (OT): None Anticipated Discharge Disposition (OT): home with supervision Other Recommendations: ?? Utilize upright chair position using bed features or transfer to recliner chair as appropriate with SBA w/ FWW, ambulate as tolerated ?? Encourage participation in ADL's by providing set up A on tray table and physical assist only asneeded Plan: OT: Therapy Frequency (OT): evaluation only Total Minutes, Occupational Therapy: 42 (eval + pa, [phone]) OT Evaluation Code Rationale: ?? Diagnosis & Pertinent Co-Morbidities affecting Plan of Care: see PMHx ?? Occupational Profile & Client History: Brief Expanded Extensive x ?? Assessment of Occupational Performance: 1-3 performance deficits 3-5 performance deficits x 5 + performance deficits ?? Clinical Decision Making: Low Moderate High x Clinical decision making of moderate complexity using standardized patient assessment instrument and measurable assessment of functional outcome. Pager: [phone] Dev Alejandre OT 12/20/2022 Occupational Therapy Rehabilitation Department * Op Note - Julio Melissa MD - 12/19/2022 10:40 AM EDT [facility] [place] Patient Name: Chidi Carbone : [id number] MR#: [id number] Case Date: 12/19/2022 Surgeon: Surgeon(s) and Role: * Julio Melissa MD - Primary Radha Owen MD - Resident Preoperative diagnosis: Right knee osteoarthritis Postoperative diagnosis: Right knee osteoarthritis Procedure(s) (LRB): TOTAL KNEE ARTHROPLASTY (WRVU 19.6) (Right) MODIFIER,GMK SPHERE EFFICIENCY CR KNEE,MEDACTA (Right) Anesthesia: Spinal with adductor canal block Estimated blood loss: 200 cc Fluids: 800 cc Urine output: Due to void Drains: None Tourniquet time: 0 minutes Complications: None Implants: All implants from Medacta knee system #1: Size 6+ Femoral Sphere component #2: Size 5 tibial fixed component #3: Size 3 patella component #4: Size 5 x 10 mm CR Flex polyethylene insert #5: medium viscosity cement Findings: Tricompartmental knee oa with stable CR TKA. Indications for procedure: Patient is a 77-year-old male with right knee osteoarthritis. After exhausting conservative measures, the patient elected to proceed with total knee arthroplasty. The risksand benefits of this procedure were reviewed in depth and patient received medical clearance prior to procedure. Description of events: The patient was seen in the same day surgery area where informed consent was confirmed and the appropriate right lower extremity was marked with my initials. This was confirmed by the patient as the correct side. The patient was brought back to the operating room and placed on the operating room table in the supine position. A timeout was performed per policy identifying the correct side, patient identity, and procedure. Preoperative antibiotics were given prior to incision. A spinal anesthetic was provided by the anesthesia staff. The patient had nonsterile tourniquets placed about the upper thigh. The knee was prepped and draped in usual sterile fashion using ChloraPrep. TXA was given prior to incision. An incision was based over the patella. Sharp 10 blade was used to incise skin. Full-thickness medial and lateral flaps risen. A medial parapatellar quad splitting arthrotomy was performed. The anterior lateral aspect of this femur was cleared of soft tissue. Proximal medial tibial peel was taken to the mid coronal line. Patella fat pad was removed with protection of the patella tendon. The patella was then everted the knee was flexed up with careful attention to not put excess stress on the extensor mechanism. Attention was then turned to preparing the femur. The distal femur was entered in the appropriate position and the distal femoral cutting jig was placed to make an 8 mm distal cut with 6 degree valgus cut. Distal femoral cutting jig was pinned to place the distal femoral cut was made without complication. Attention was then turned to preparing our tibia. External tibial cutting jig was placed and the appropriate slope, position on tibia. 10 mm were taken off the less affected side. This was pinned into place and the proximal tibial cut was made without complication. This was removed and medial osteophytes were removed about the proximal tibia. Temporary sizing of the tibia was undertaken at this point. The extension space was then checked and found to be excellent. The 3 degrees external rotation sizing guide was placed and found to be a 6= size and was pinned inposition. The 4-in-1 cutting block was then applied and anterior, posterior, chamfers cuts were made. Residual bone was removed and then osteophytes were removed. The flexion space was then checked and found to be excellent. A size 6+ femoral trial, size 5 tibial tray, and size 10 mm polyethylene was placed and the knee was reduced and brought through a range of motion and found to be stable to both varus and valgus stress at both 0 degrees, 30 degrees, and 90 degrees of flexion. There was no lift off with flexion. The patella was then prepared using the patellar clamp with the appropriate resection. The patella was then sized for a size 3 patella. Lollipop was held in place and peg holes were drilled. Trial was placed and the knee was brought through range of motion and found to have excellent tracking. Implants were removed and the tibia was then pinned in the appropriate external rotation and the smoke stack and punch were performed. All components were removed the knee was copiously irrigated with normal saline. Components were opened and then inserted in the following fashion tibia, femur, polyethylene insert. The knee was brought to full extension and the patella button was placed with the patellar clamp. Cement was allowed to polymerize. Hemostasis was obtained with electrocautery. The knee was copiously irrigated with normal saline. Remaining cement was removed. A strata fix barbed suture was then used to close the arthrotomy. Afterclosure of the arthrotomy, the knee was flexed up and found to be watertight and tracking well. Knee flexion with arthrotomy closed was found to be 120??. The knee was once again copiously irrigated with normal saline and the subcutaneous used tissues were approximated with 0 and 2-0 Vicryl suturesin a buried interrupted fashion. Skin was closed with Monocryl and Dermabond. The wound was washed and dried Mepilex dressing was applied The patient was awoken from anesthesia without combination. Transferred to the PACU in stable condition. At the end the case all sponge, needle counts were correct times 2 there are no immediate competitions known. Plan: Patient will be weight bearing as tolerated on the surgical extremity without precaution. Patient will use DVT prophylaxis for 30 days. Dressing will remain in place for 7 days. Patient will likely be discharged to home with VNA services or rehabilitation stay. Follow-up will be in 4 weeks for wound check and x-rays. Surgical Infection Prevention Bundle Used? N/A Attestation: Case Date: 12/19/2022 I was present and I participated during the entire procedure (does not need to include opening and closing). Julio Melissa MD 12/19/2022 documented in this encounter Plan of Treatment Upcoming Encounters Date Type Department Care Team (Latest Contact Info) Description 09/29/2024 4:30 PM EST Hospital En[place] [address] Lizet Wilkes MD [facility] [place] [address] 09/29/2024 4:30 PM EST - 09/29/2024 5:00 PM EST [place] [address] Lizet Wilkes MD [facility] [place] [address] EGD, UPPER GI ENDOSCOPY (WRVU 2.09) 11/09/2024 10:00 AM EST Laboratory Appointment Lab [place] [facility] [place] [address] [place] [phone] 11/09/2024 11:00 AM EST Office Visit [place] [phone] Faith Caba MD [facility] DR [place] [address] 11/09/2024 12:00 PM EST Appointment Hematology [place] [address] Scheduled Procedures Name Priority Associated Diagnoses Date/Ti me EGD, UPPER GI ENDOSCOPY (WRVU 2.09) Gastroesophageal reflux disease with esophagitis, unspecified whether hemorrhage 09/29/2024 4:30 PM EST Scheduled Referrals Name Type Priority Associated Diagnoses Orde r Schedule Referral to Home Health Outpatient Referral Routine 12/19/22 S/P right total knee arthroplasty (Dr. Melissa) Ordered: 12/20/2022 documented as of this encounter Goals Goal Patient Goal Type Associated Problems Recent Progress Patient-Stated? Author Home Medication Compliance and Understanding Patient Facing Action Plan Curly Nicolas, [facility] Note: The patient? s goal is to continue positive results of oral chemotherapy by maintaining improved labs PSA or stable scans in clinic for the upcoming year. documented as of this encounter Procedures Procedure Name Priority Date/Time Associated Diagnosis Comments IMPLANTABLE DEVICES SCAN 12/24/2022 3:05 PM EDT HEMOGRAM Routine 12/20/2022 4:39 AM EDT DIFFERENTIAL, AUTOMATED Routine 12/20/2022 4:39 AM EDT HC CBC,PLT & AUTO DIFF Routine 12/20/2022 4:39 AM EDT BASIC METABOLIC PANEL Routine 12/20/2022 4:39 AM EDT MODIFIER,GMK SPHERE EFFICIENCY CR KNEE,MEDACTA 12/19/2022 10:22 AM EDT Primary osteoarthritis of both knees Arthroplasty Knee Condyle & Plateau Medial & Lat Compartments ([id number]) 12/19/2022 10:22 AM EDT Primary osteoarthritis of both knees TOTAL KNEE ARTHROPLASTY Routine 12/19/2022 8:17 AM EDT Primary osteoarthritis of both knees documented in this encounter Results * SCAN DOC: IMPLANTABLE DEVICES (12/24/2022 3:05 PM EDT) Narrative 12/24/2022 3:05 PM EDT Ordered by an unspecified provider. Scanning Provider MEDIA MGR SCAN EXT O RDR/RSLT * Differential, Automated (12/20/2022 4:39 AM EDT) Neutrophil % 71.8 % [facility] Neutrophil Absolute 5.07 1.70 - 6.10 x10(3)/[facility] LABORATORY Lymph % 12.5 % [facility] Lymphocytes Abs 0.9 0.9 - 3.2 x10(3)/[facility] LABORATORY Monocyte % 13.3 % [facility] Monocyte Abs 0.9 0.3 - 0.9 x10(3)/[facility] LABORATORY Eos % 1.8 % [facility] Eosinophils Abs 0.1 0.0 - 0.4 x10(3)/[facility] LABORATORY Basophil % 0.3 % [facility] Baso Absolute 0.0 0.0 - 0.1 x10(3)/[facility] LABORATORY Immature Gran % 0.30 % [facility] Comment: Immature granulocytes(IG's)percentage and absolute count will include metamyelocytes, myelocytes, and promyelocytes. Blood smears from CBCs yielding IG's will be scanned manually for concordance. If this scan disagrees with the automated IG or if promyelocytes are noted, a manual differential will be performed. Immature Gran Absolute 0.02 0.00 - 0.04 x10(3)/[facility] LABORATORY Blood 12/20/2022 4:39 AM EDT 12/20/2022 5:17 AM EDT Narrative Resulting Agency Comment Spec In Lab Radha Owen MD HEMATOLOGY ORDERABLE S [facility] [place] [address] * (ABNORMAL) Hemogram (12/20/2022 4:39 AM EDT) White Blood Cell 7.1 4.0 - 9.5 x10(3)/mc L [facility] Red Blood Cell 3.63(L) 4.58 - 5.54 x10(6)/mc L [facility] Hemoglobin 9.6(L) 13.7 - 16.5 g/dL [facility] Hematocrit 30.0(L) 40.5 - 48.5 % [facility] Mean Cell Volume 82.6(L) 82.9 - 93.1 fL [facility] Mean Cell Hemoglobin 26.4(L) 27.5 - 32.1 pg [facility] Mean Cell Hemoglobin Concentration 32.0 32.0 - 35.7 g/dL [facility] Platelet 202 145 - 357 x10(3)/mc L [facility] RDW Standard Deviation 63.6(H) 36.0 - 45.0 fL [facility] RDW coefficient of variation 21.6(H) 11.4 - 13.8 % [facility] Mean Platelet Volume 9.7 7.6 - 12.9 fL [facility] NRBC% auto 0.0 % [facility] NRBC Absolute 0.000 0.000 - 0.000 x10(3)/ L [facility] Blood 12/20/2022 4:39 AM EDT 12/20/2022 5:17 AM EDT Narrative Resulting Agency Comment Spec In Lab Radha Owen MD HEMATOLOGY ORDERABLE S [facility] [place] [address] * (ABNORMAL) Basic Metabolic Panel (non-fasting) (12/20/2022 4:39 AM EDT) Glucose 121 65 - 199 mg/dL [facility] Comment:Diabetes: >=200 mg/d L plus symptoms Blood Urea Nitrogen 20 10 - 20 mg/dL [facility] Creatinine 0.85 0.80 - 1.50 mg/dL [facility] Sodium 141 135 - 145 mmol/L [facility] Potassium 3.9 3.5 - 5.0 mmol/L [facility] Comment: Please note: ??Patients with WBC >100,000 may have falsely elevated Potassium levels. ??For accurate Potassium quantification in these patients send serum separator tube (gold top) for subsequent determinations. ??Contact the Clinical Chemistry Laboratory if there are any questions. Chloride 109(H) 98 - 107 mmol/L [facility] Carbon Dioxide 23 22 - 31 mmol/L [facility] Anion Gap 9 5 - 15 mmol/L [facility] Calcium 8.4(L) 8.5 - 10.5 mg/dL [facility] Est Glomerular Filtration Rate 89 >=60 mL/min/1. 73 m?? [facility] Comment: This patient's estimated GFR [...] and symptoms in addition to eGFR. Blood 12/20/2022 4:39 AM EDT 12/20/2022 5:17 AM EDT Narrative Resulting Agency Comment Spec In Lab Julio Melissa MD CHEMISTRY ORDERABLES [facility] [place] [address] documented in this encounter Visit Diagnoses Diagnosis S/P total knee arthroplasty, right- Primary Primary osteoarthritis of both knees Primary localized osteoarthrosis, lower leg 12/19/22 S/P right total knee arthroplasty (Dr. Melissa) Primary osteoarthritis of both knees Primary localized osteoarthrosis, lower leg Gastroesophageal reflux disease with esophagitis, unspecified whether hemorrhage documented in this encounter Admitting Diagnoses Diagnosis S/P total knee arthroplasty, right documented in this encounter Administered Medications Inactive Administered Medications - up to 3 most recent administrations Medication Order MAR Action Action Date Dose Rate Site acetaminophen (Tylenol) tablet 1,000 mg 1,000 mg, Oral, ONCE, 1 dose, On Sat12/19/22 at 0845, Administer on arrival in Same Day Program, Day of Surgery (Day of Procedure), Routine Given 12/19/2022 8:39 AM EDT 1,000 mg acetaminophen (Tylenol) tablet 1,000 mg 1,000 mg, Oral, EVERY 8 HOURS SCHEDULED, First dose on Sat12/19/22 at 1600, Until Discontinued, Maximum dose of acetaminophen is 4,000 mg from all sources in 24 hours. When ordered for pain, acetaminophen should be given even when other ordered pain medications are indicated. , Routine Given 12/20/2022 12:54 PM EDT 1,000 mg Given 12/20/2022 5:05 AM EDT 1,000 mg Given 12/19/2022 9:52 PM EDT 1,000 mg celecoxib (CeleBREX) capsule 400 mg 400 mg, Oral, ONCE, 1 dose, On Sat12/19/22 at 0845, Administer on arrival to Same Day Program, Day of Surgery (Day of Procedure), Routine Given 12/19/2022 8:40 AM EDT 400 mg finasteride (Proscar) tablet 5 mg 5 mg, Oral, DAILY, First dose on Sat12/19/22 at 1600, Until Discontinued, DO NOT SPLIT, CRUSH OR OPEN, Routine Given 12/20/2022 9:01 AM EDT 5 mg HYDROmorphone (Dilaudid) (2 mg/mL) multi-dose injection solution 0.4 mg 0.4 mg, Intravenous, EVERY 10 MIN PRN, Starting on Sat12/19/22 at 1203, Until Sat12/19/22 at 1508, Pain, For Moderate to Severe Pain (6-10 out of 10), Hold for respiratory rate less than 10 per minute. Maximum dose 3 mg over one hour including administrations in the OR. If multiple pain medications are ordered, start with HYDROmorphone or morphine and use fentaNYL for breakthrough pain., PACU Recovery, Routine Given 12/19/2022 2:17 PM EDT 0.4 mg Given 12/19/2022 2:07 PM EDT 0.4 mg Given 12/19/2022 1:56 PM EDT 0.4 mg lactated ringers infusion 1,000 mL, at 100 mL/hr, Intravenous, CONTINUOUS, Starting on Sat12/19/22 at 0845, Until Sat12/19/22 at 1508, Day of Surgery (Day of Procedure) New Bag 12/19/2022 2:04 PM EDT 1,000 mLs 100 mL/hr New Bag 12/19/2022 9:21 AM EDT 1,000 mLs 100 mL/hr lidocaine (Lidoderm) 5% patch 1 patch 1 patch, Transdermal, Administer over 12 Hours, EVERY 24 HOURS, First dose on Sat12/19/22 at 1800, Until Discontinued, Apply patch(es) for 12 hours, and then remove for 12 hours., Routine Patch Applied 12/19/2022 6:29 PM EDT 1 patch 19- Surgical Site losartan (Cozaar) tablet 25 mg 25 mg, Oral, DAILY, First dose on Sat12/19/22 at 1600, Until Discontinued Given 12/20/2022 9:02 AM EDT 25 mg modafiniL (Provigil) tablet 100 mg 100 mg, Oral, DAILY, First dose on Sat12/19/22 at 1600, Until Discontinued, Routine Given 12/20/2022 10:11 AM EDT 100 mg oxyCODONE (Roxicodone) tablet 5 mg 5 mg, Oral, EVERY 6 HOURS PRN, Starting on Sat12/19/22 at 2111, Until Sat12/20/22 at 0748, Pain, Routine Given 12/20/2022 5:05 AM EDT 5 mg Given 12/19/2022 9:52 PM EDT 5 mg oxyCODONE (Roxicodone) tablet 5-10 mg 5-10 mg, Oral, EVERY 4 HOURS PRN, Starting on Sat12/20/22 at 0800, Until Sat12/20/22 at 1649, Pain, mild to moderate pain (1-5) take 5 mg, moderate to severe pain (6-10) take 10 mg, Routine Given 12/20/2022 12:54 PM EDT 10 mg Given 12/20/2022 9:03 AM EDT 5 mg pantoprazole EC (Protonix) tablet 40 mg 40 mg, Oral, 2 TIMES DAILY, First dose on Sat12/19/22 at 2100, Until Discontinued, DO NOT CRUSH OR OPEN, Routine Given 12/20/2022 9:01 AM EDT 40 mg Given 12/19/2022 8:15 PM EDT 40 mg povidone-iodine (Betadine Ophthalmic Prep) 5 % ophthalmic solution ONCE PRN, Starting on Sat12/19/22 at 1052, Until Sat12/20/22 at 1649, Intra-Operative (Intra-Procedure), Routine Given 12/19/2022 10:52 AM EDT 30 mLs 19- Surgical Site predniSONE (Deltasone) tablet 5 mg 5 mg, Oral, DAILY, First dose on Sat12/19/22 at 1600, Until Discontinued, Routine Given 12/20/2022 9:15 AM EDT 5 mg rivaroxaban (Xarelto) tablet 10 mg 10 mg, Oral, DAILY, First dose on Sat12/20/22 at 0900, Until Discontinued, Routine, Restricted anticoagulant, choose the most appropriate response: Approved indication of hip/knee replacement DVT prophylaxis Given 12/20/2022 9:02 AM EDT 10 mg SIcfnuchdjv-XCZXSIJjedx-youZX Dine-ketorolac (BABAR) (2.46 mg-0.005 mg-0.0008 mg-0.3 mg/mL) salome-articular inj soln in sodium chloride ONCE PRN, Starting on Sat12/19/22 at 1130, Until Sat12/20/22 at 1649, Intra-Operative (Intra-Procedure), Routine Given 12/19/2022 11:30 AM EDT 50 mLs 19- Surgical Site senna-docusate (Pericolace) 8.6-50 mg per tablet 2 tablet 2 tablet, Oral, 2 TIMES DAILY, First dose on Sat12/19/22 at 2100, Until Discontinued, Routine Given 12/19/2022 8:15 PM EDT 2 tablets sodium chloride 0.9 % (flush) (BD PosiFlush Normal Saline 0.9) flush 5 mL 5 mL, Intravenous, 2 TIMES DAILY, First dose on Sat12/19/22 at 2100, Until Discontinued, Recovery (Recovery-Hospital Unit), Routine Given 12/20/2022 9:14 AM EDT 5 mLs Given 12/19/2022 8:15 PM EDT 5 mLs tamsulosin (Flomax) capsule 0.4 mg 0.4 mg, Oral, DAILY, First dose (after last reorder) on Sat12/19/22 at 2100, Until Discontinued, DO NOT CRUSH OR OPEN, Routine Given 12/19/2022 8:15 PM EDT 0.4 mg traMADoL (Ultram) tablet 25 mg 25 mg, Oral, EVERY 6 HOURS PRN, Starting on Sat12/19/22 at 1510, Until Sat12/19/22 at 2112, Pain, mild pain (1-3), Routine Given 12/19/2022 8:14 PM EDT 25 mg zolpidem (Ambien) tablet 10 mg 10 mg, Oral, NIGHTLY, First dose on Sat12/19/22 at 2100, Until Discontinued, Routine Given 12/19/2022 9:52 PM EDT 10 mg documented in this encounter Active and Recently Administered Medications Times are shown in EDT. Scheduled Medication Order 12/18/2022 12/19/2022 12/20/2022 acetaminophen (Tylenol) tablet 1,000 mg (COMPLETED) 1,000 mg, Oral, ONCE, 1 dose, On Sat12/19/22 at 0845, Administer on arrival in Same Day Program, Day of Surgery (Day of Procedure), Routine 0839 (Given - Provider: Lucie Roberto RN) acetaminophen (Tylenol) tablet 1,000 mg 1,000 mg, Oral, EVERY 8 HOURS SCHEDULED, First dose on Sat12/19/22 at 1600, Until Discontinued, Maximum dose of acetaminophen is 4,000 mg from all sources in 24 hours. When ordered for pain, acetaminophen should be given even when other ordered pain medications are indicated. , Routine 1620 (Given - Provider: Lucie Harper LPN)2152 (Given - Provider: Jane Gonzalez LPN) 0505 (Given - Provider: Jane Gonzalez LPN)1254 (Given - Provider: Ana Melara LPN)1400 (Canceled Entry - Provider: Ana Melara LPN - Reason: Order parameters not met) ceFAZolin (Ancef) 2 g vial attach to sodium chloride 0.9% 100 mL Mini-Bag Plus (COMPLETED) 2 g, Intravenous, EVERY 4 HOURS, 1 dose, First dose on Sat12/19/22 at 0845, Administer over 30 Minutes, Redose after 4 hours., Day of Surgery (Day of Procedure), Indication for (Active or Suspected): Prophylaxis 1029 (New Bag - Provider: Edwardo Thao CRNA) celecoxib (CeleBREX) capsule 400 mg (COMPLETED) 400 mg, Oral, ONCE, 1 dose, On Sat12/19/22 at 0845, Administer on arrival to Same Day Program, Day of Surgery (Day of Procedure), Routine 0840 (Given - Provider: Lucie Roberto RN) ferrous sulfate EC (FeroSul) tablet 325 mg 325 mg, Oral, DAILY WITH BREAKFAST, First dose on Sat12/20/22 at 0800, Until Discontinued, DO NOT CRUSH OR OPEN. Take with food or water. , Routine 0800 (Not Given - Provider: Uli Ríos RN - Reason: Patient/family refused) finasteride (Proscar) tablet 5 mg 5 mg, Oral, DAILY, First dose on Sat12/19/22 at 1600, Until Discontinued, DO NOT SPLIT, CRUSH OR OPEN, Routine 1600 (Not Given - Provider: Lucie Harper LPN - Reason: See comment - Comment: patient states he took this medication in the morning) 0901 (Given - Provider: Uli Ríos RN) lidocaine (Lidoderm) 5% patch 1 patch 1 patch, Transdermal, Administer over 12 Hours, EVERY 24 HOURS, First dose on Sat12/19/22 at 1800, Until Discontinued, Apply patch(es) for 12 hours, and then remove for 12 hours., Routine 1829 (Patch Applied - Provider: Lucie Harper LPN) 0557 (Patch Removed - Provider: Jane Gonzalez LPN) losartan (Cozaar) tablet 25 mg 25 mg, Oral, DAILY, First dose on Sat12/19/22 at 1600, Until Discontinued 1600 (Not Given - Provider: Lucie Harper LPN - Reason: Patient/family refused) 0902 (Given - Provider: Uli Ríos RN) MEDICATION NONFORMULARY REQUEST 1,000 mg 1,000 mg, Oral, DAILY, First dose on Sat12/20/22 at 0900, Until Discontinued 0900 (Not Given - Provider: Uli Ríos RN - Reason: See comment - Comment: Not in formulary- pt will take at home) modafiniL (Provigil) tablet 100 mg 100 mg, Oral, DAILY, First dose on Sat12/19/22 at 1600, Until Discontinued, Routine 1600 (Not Given - Provider: Lucie Harper LPN - Reason: Patient/family refused) 1011 (Given - Provider: Lydia Villarreal RN - Comment: recieved from [employer]) pantoprazole EC (Protonix) tablet 40 mg 40 mg, Oral, 2 TIMES DAILY, First dose on Sat12/19/22 at 2100, Until Discontinued, DO NOT CRUSH OR OPEN, Routine 2014 (Given - Provider: Jane Gonzalez LPN) 0901 (Given - Provider: Uli Ríos RN) predniSONE (Deltasone) tablet 5 mg 5 mg, Oral, DAILY, First dose on Sat12/19/22 at 1600, Until Discontinued, Routine 1600 (Not Given - Provider: Lucie Harper LPN - Reason: See comment - Comment: patient took medication this morning) 0915 (Given - Provider: Uli Ríos RN) rivaroxaban (Xarelto) tablet 10 mg 10 mg, Oral, DAILY, First dose on Sat12/20/22 at 0900, Until Discontinued, Routine, Restricted anticoagulant, choose the most appropriate response: Approved indication of hip/knee replacement DVT prophylaxis 901 (Given - Provid er: Uli Ríos RN) senna-docusate (Pericolace) 8.6-50 mg per tablet 2 tablet 2 tablet, Oral, 2 TIMES DAILY, First dose on Sat12/19/22 at 2100, Until Discontinued, Routine 2014 (Given - Provider: Jane Gonzalez LPN) 0900 (Not Given - Provider: Uli Ríos RN - Reason: Patient/family refused) sodium chloride 0.9 % (flush) (BD PosiFlush Normal Saline 0.9) flush 5 mL 5 mL, Intravenous, 2 TIMES DAILY, First dose on Sat12/19/22 at 2100, Until Discontinued, Recovery (Recovery-Hospital Unit), Routine 2014 (Given - Provider: Jane Gonzalez LPN) 0914 (Given - Provider: Uli Ríos RN) tamsulosin (Flomax) capsule 0.4 mg 0.4 mg, Oral, DAILY, First dose (after last reorder) on Sat12/19/22 at 2100, Until Discontinued, DO NOT CRUSH OR OPEN, Routine 2014 (Given - Provider: Jane Gonzalez LPN) tranexamic acid (Cyklokapron) (100 mg/mL) infusion 1,000 mg (COMPLETED) 1,000 mg, Intravenous, ONCE, 1 dose, On Sat12/19/22 at 0845, The maximum infusion rate for Tranexamic Acid is 100 mg/min., Day of Surgery (Day of Procedure), STAT 1029 (Given - Provider: Edwardo Thao CRNA) zolpidem (Ambien) tablet 10 mg 10 mg, Oral, NIGHTLY, First dose on Sat12/19/22 at 2100, Until Discontinued, Routine 2151 (Given - Provider: Jane Gonzalez LPN) Continuous Medication Order 12/18/2022 12/19/2022 12/20/2022 lactated ringers infusion (CANCELED) 1,000 mL, at 100 mL/hr, Intravenous, CONTINUOUS, Starting on Sat12/19/22 at 0845, Until Sat12/19/22 at 1508, Day of Surgery (Day of Procedure) 0921 (New Bag - Provider: Lucie Roberto, NUZHAT)1404 (New Bag - Provider: Martín Kincaid RN)1619 (Stopped - Provider: Lucie Harper LPN) PRN Medication Order 12/18/2022 12/19/2022 12/20/2022 bisacodyL (Dulcolax) suppository 10 mg 10 mg, Rectal, DAILY PRN, Starting on Sat12/19/22 at 1510, Until Yudi 12/20/22 at 1649, Constipation, Administer if no bowel movement within 48 hours to achieve: (1) One bowel movement at least every 48 hours, AND (2) without straining. If multiple PRN bowel medications ordered, start with polyethylene glycoL, then lactulose, then oral bisacodyL, then bisacodyL suppository, then magnesium citrate, then tap water enema. Multiple medications may be given concomitantly for constipation., Routine bisacodyl EC (Dulcolax) tablet 10 mg 10 mg, Oral, 2 TIMES DAILY PRN, Starting on Sat12/19/22 at 1510, Until Yudi 12/20/22 at 1649, Constipation, DO NOT CRUSH OR OPEN Administer if no bowel movement within 48 hours to achieve: (1) One bowel movement at least every 48 hours, AND (2) without straining. If multiple PRN bowel medications ordered, start with polyethylene glycoL, then lactulose, then oral bisacodyL, then bisacodyL suppository, then magnesium citrate, then tap water enema. Multiple medications may be given concomitantly for constipation., Routine HYDROmorphone (Dilaudid) (2 mg/mL) multi-dose injection solution 0.4 mg (CANCELED)(Linked Group 1) 0.4 mg, Intravenous, EVERY 10 MIN PRN, Starting on Sat12/19/22 at 1203, Until Sat12/19/22 at 1508, Pain, For Moderate to Severe Pain (6-10 out of 10), Hold for respiratory rate less than 10 per minute. Maximum dose 3 mg over one hour including administrations in the OR. If multiple pain medications are ordered, start with HYDROmorphone or morphine and use fentaNYL for breakthrough pain., PACU Recovery, Routine 1356 (Given - Provider: Martín Kincaid RN)1407 (Given - Provider: Martín Kincaid RN)1417 (Given - Provider: Martín Kincaid RN) lidocaine (Xylocaine) 1% (10 mg/mL) injection 3 mg 3 mg (0.3 mL), Subcutaneous, ONCE PRN, 1 dose, Starting on Sat12/19/22 at 1510, Until Yudi 12/20/22 at 1649, for discomfort with PIV insertion, Recovery (Recovery-Hospital Unit), Routine oxyCODONE (Roxicodone) tablet 5 mg (CANCELED) 5 mg, Oral, EVERY 6 HOURS PRN, Starting on Sat12/19/22 at 2111, Until Yudi 12/20/22 at 0748, Pain, Routine 2152 (Given - Provider: Jane Gonzalez LPN) 0505 (Given - Provider: Jane Gonzalez LPN) oxyCODONE (Roxicodone) tablet 5-10 mg 5-10 mg, Oral, EVERY 4 HOURS PRN, Starting on Sat12/20/22 at 0800, Until Sat12/20/22 at 1649, Pain, mild to moderate pain (1-5) take 5 mg, moderate to severe pain (6-10) take 10 mg, Routine 0903 (Given - Provid er: Uli Ríos RN)1254 (Given - Provider: Ana Melara LPN - Comment: instructed to give by RN, Uli Ríos) polyethylene glycoL (Miralax) packet 17 g 17 g, Oral, DAILY PRN, Starting on Sat12/19/22 at 1510, Until Sat12/20/22 at 1649, Constipation, Administer if no bowel movement within 48 hours to achieve: (1) One bowel movement at least every 48 hours, AND (2) without straining. If multiple PRN bowel medications ordered, start with polyethylene glycoL, then lactulose, then oral bisacodyL, then bisacodyL suppository, then magnesium citrate, then tap water enema. Multiple medications may be given concomitantly for constipation., Routine povidone-iodine (Betadine Ophthalmic Prep) 5 % ophthalmic solution (CANCELED) ONCE PRN, Starting on Sat12/19/22 at 1052, Until Sat12/20/22 at 1649, Intra-Operative (Intra-Procedure), Routine 1052 (Given - Provider: Julio Melissa MD - Comment: mixed with 500ml 0.9% NACL) BGacnwkjynd-VTEHDHUsvoz-buoQ IDine-ketorolac (BABAR) (2.46 mg-0.005 mg-0.0008 mg-0.3 mg/mL) salome-articular inj soln in sodium chloride (CANCELED) ONCE PRN, Starting on Sat12/19/22 at 1130, Until Sat12/20/22 at 1649, Intra-Operative (Intra-Procedure), Routine 1130 (Given - Provider: Julio Melissa MD - Comment: Right knee) sodium chloride 0.9 % (flush) (BD PosiFlush Normal Saline 0.9) flush 5-20 mL 5-20 mL, Intravenous, EVERY 1 MIN PRN, Starting on Sat12/19/22 at 1510, Until Sat12/20/22 at 1649, flush, Flush pertains to all indwelling lines. Flush per protocol found in the job aid using the link provided on this medication record., Recovery (Recovery-Hospital Unit), Routine traMADoL (Ultram) tablet 25 mg (CANCELED)(Linked Group 2) 25 mg, Oral, EVERY 6 HOURS PRN, Starting on Sat12/19/22 at 1510, Until Sat12/19/22 at 2112, Pain, mild pain (1-3), Routine 2013 (Given - Provider: Jane Gonzalez LPN) Linked Groups Order Group 1: HYDROmorphone (Dilaudid) (2 mg/mL) multi-dose injection solution 0.2 mg (CANCELED) 0.2 mg, Intravenous, EVERY 10 MIN PRN, Starting on Sat12/19/22 at 1203, Until Sat12/19/22 at 1508, Pain, For Mild to Moderate Pain (1-5 out of 10), Hold for respiratory rate less than 10 per minute. Maximum dose 3 mg over one hour including administrations in the OR. If multiple pain medications are ordered, start with HYDROmorphone or morphine and use fentaNYL for breakthrough pain., PACU Recovery, Routine Or HYDROmorphone (Dilaudid) (2 mg/mL) multi-dose injection solution 0.4 mg (CANCELED)Jump to med 0.4 mg, Intravenous, EVERY 10 MIN PRN, Starting on Sat12/19/22 at 1203, Until Sat12/19/22 at 1508, Pain, For Moderate to Severe Pain (6-10 out of 10), Hold for respiratory rate less than 10 per minute. Maximum dose 3 mg over one hour including administrations in the OR. If multiple pain medications are ordered, start with HYDROmorphone or morphine and use fentaNYL for breakthrough pain., PACU Recovery, Routine Group 2: traMADoL (Ultram) tablet 25 mg (CANCELED)Jump to med 25 mg, Oral, EVERY 6 HOURS PRN, Starting on Sat12/19/22 at 1510, Until Sat12/19/22 at 2112, Pain, mild pain (1-3), Routine Or traMADoL (Ultram) tablet 50 mg (CANCELED) 50 mg, Oral, EVERY 6 HOURS PRN, Starting on Sat12/19/22 at 1510, Until Sat12/19/22 at 2112, Pain, moderate to severe pain (4-10), Routine documented in this encounter Care Teams [employer] Relationship Specialty Start Date End Date Kennedi Shaver MD [address] [facility] [address] [place] [address] PCP - General Family Medicine 08/02/20 06/24/24 documented as of this encounter
--- OUTSIDE RECORDS SUMMARY | 2024-09-11 15:21 | XMS_ITS | Encounter Summary ---
Author Organization [facility] [place] [address] Care Team Providers Care Multimedia Editor Name Role Phone Kennedi Shaver MD Primary Care Provider [phone] Reason for Visit * Reason Onset Date Comments Pain 12/25/2022 Encounter Details Date Type Department Care Team (Late st Contact Info) Description 12/25/2022 Telephone [place] [phone] Julio Melissa MD Pain Social History Tobacco Use Types Packs/Day Years Used Date Smoking Tobacco: Former Cigarettes 1977 Smokeless Tobacco: Never Alcohol Use Standard Drinks/Week Comments Yes 14 (1 standard drink = 0.6 oz pu re alcohol) [facility] Inpatient Questions Answer Date Recorded Does Anyone [...] encounter Miscellaneous Notes * Telephone Encounter - Renetta Pappas RN - 12/25/2022 11:45 AM EDT Images from the original note were not included. Medication Refill Request Surgery/Injury/Provider: 12/19/[address] Melissa Medication being requested:Oxycodone Query: Last refill or Original Rx: Seen within 30 days (if no, than when): Follow Up: 01/24/23 [facility] How is this medication being used currently: patient is taking one tablet every 4 hours on occasionat night time has taken 2 tablets. Pain level: 5 Mostly when standing up and walking. /10 Bowel concerns: none reviewed importance of hydration and nutrition with this patient as his appetite a bit decreased. Other pain medications used and how: Tylenol Yes tid Gabapentin No Naproxen No OTHER Xarelto Medication Taper Plan: Taper to the lowest effective maintenance dose. Continue additional scheduled pain medication along with RICE. Teaching done regarding: taking nonnarcotic pain medications, taking the least amount of opioid needed for the least amount of time for adequate pain management and tapering of opioids with verbalized understanding by the patient. Requested Prescription to be sent electronically to [facility] (location). Prescription prepped and pended for Rody LEE (provider) review. The patient knows how to contact orthopaedics if any further questions or concerns occur. Renetta Pappas RN [facility] Ortho Team * Telephone Encounter - Joaquina Diego - 12/25/2022 10:55 AM EDT Name of person calling: Gisel Facility person is calling from?: RITESHMYA Was this a new injury? NO Have you had Surgery?YES If so when?12/19/22 Who was the Surgeon?DR MELISSA What is the question: Gisel called in stating Chidi has 1 more pill of his Oxycodone left . Chidi is still having intense pain normally at night. He is struggling with brain fog and would like more medication to be placed for his pain [facility] Best number to reach the caller: Gisel [phone] Chidi [phone] documented in this encounter Plan of Treatment Upcoming Encounters Date Type Department Care Team (Latest Contact Info) Description 09/29/2024 4:30 PM EST Hospital Encounter [place] [phone] Lizet Wilkes MD [facility] [place] [address] 09/29/2024 4:30 PM EST - 09/29/2024 5:00 PM EST Surgery [place] [phone] Lizet Wilkes MD [facility] [place] [address] EGD, UPPER GI ENDOSCOPY (WRVU 2.09) 11/09/2024 10:00 AM EST Laboratory Appointment Lab at [facility] Hematology Oncology [address] [place] [phone] 11/09/2024 11:00 AM EST Office Visit Hematology [place] [phone] Faith Caba MD [facility] [place] [address] 11/09/2024 12:00 PM EST Appointment Hematology [place] [phone] Scheduled Procedures Name Priority Associated Diagnoses Date/Ti [...] hemorrhage documented in this encounter Care Teams Multimedia Editor Relationship Specialty Start Date End Date Kennedi Shaver MD [address] [facility] [address] [place] [address] PCP - General Family Medicine 08/02/20 06/24/24 documented as of this encounter
--- OUTSIDE RECORDS SUMMARY | 2024-09-11 15:21 | XMS_ITS | Encounter Summary ---
Author Organization [facility] [place] [address] Care Team Providers Care School Age Lead Teacher Name Role Phone Kennedi Shaver MD Primary Care Provider [phone] Encounter Details Date Type Department Care Team (Late st Contact Info) Description 11/19/2022 [place]phone [place] [address] Rabia Wright, RN Social History Tobacco Use Types Packs/Day Years Used Date Smoking Tobacco: Former Cigarettes 1977 Smokeless Tobacco: Never Alcohol Use Standard Drinks/Week Comments Yes 14 (1 standard drink = 0.6 oz pu re alcohol) Sex and Gender Information Value Date Recorded Sex Assigned at Not on file Gender Identity Not on file Sexual Orientation Not on file documented as of this encounter Miscellaneous Notes * Telephone Encounter - Rabia Wright RN - 11/19/2022 9:11 AM EST Incoming VM from RN at PCP office (Dr Shaver) regarding [place] and EGD follow up from last year. Both reports from 07/2022 recommend follow up within a few months. Forwarded documented in this encounter Plan of Treatment Upcoming Encounters Date Type Department Care Team (Latest Contact Info) Description 09/29/2024 4:30 PM EST Hospital Encounter Gastroenterology at [place] [phone] Lizet Wilkes MD [facility] [place] [address] 09/29/2024 4:30 PM EST - 09/29/2024 5:00 PM EST [place] [phone] Lizet Wilkes MD [facility] [place] [address] EGD, UPPER GI ENDOSCOPY (WRVU 2.09) 11/09/2024 10:00 AM EST Laboratory Appointment Lab at [facility] Hematology Oncology [address] [place] [phone] 11/09/2024 11:00 AM EST Office Visit Hematology and Oncology at [place] [phone] Faith Caba MD [facility] [address] [place] [address] 11/09/2024 12:00 PM EST Appointment Hematology [place] [phone] Scheduled Procedures Name Priority Associated Diagnoses Date/Ti me EGD, UPPER GI ENDOSCOPY (WRVU 2.09) Gastroesophageal reflux disease with esophagitis, unspecified whether hemorrhage 09/29/2024 4:30 PM EST documented as of this encounter Goals Goal Patient Goal Type Associated Problems Recent Progress Patient-Stated? Author [facility] Medication Compliance and Understanding Patient Facing Action Plan Curly Nicolas, [facility] Note: The patient? s goal is to continue positive results of oral chemotherapy by maintaining improved labs PSA or stable scans in clinic for the upcoming year. documented as of this encounter Visit Diagnoses Not on filedocumented in this encounter Care Teams School Age Lead Teacher Relationship Specialty Start Date End Date Kennedi Shaver MD [address] [facility] [address] [place] [address] PCP - General Family Medicine 08/02/20 06/24/24 documented as of this encounter
--- OUTSIDE RECORDS SUMMARY | 2024-09-11 15:21 | XMS_ITS | Encounter Summary ---
[place] [address] Care Team Providers Care Outreach Liaison Name Role Phone Kennedi Shaver MD Primary Care Provider [phone] Reason for Visit * Reason Comments Specialty Pharmacy Review Zytiga 500mg t ablet Encounter Details Date Type Department Care Team (Late st Contact Info) Description 01/15/2023 Specialty [place] [address] Deborah Soares, [employer] Social History Tobacco Use Types Packs/Day Years Used Date Smoking Tobacco: Former Cigarettes 1977 Smokeless Tobacco: Never Alcohol Use Standard Drinks/Week Comments Yes 14 (1 standard drink = 0.6 oz pu re alcohol) [facility] Inpatient Questions Answer Date [...] encounter Progress Notes * Deborah Soares - 01/15/2023 11:59 PM EDT The [facility] has completed a benefits investigation for Chidi Carbone to review their eligibility to fill at [facility]. Per patient's medication list they are prescribedZytiga 500mg tablet and the medication is able to be filled at the [facility]. The patient is currently filling the medication through Specialty Pharmacy with a $38.70 copay. documented in this encounter Plan of Treatment Upcoming Encounters Date Type Department Care Team (Latest Contact Info) Description 09/29/2024 4:30 PM EST Hospital [place] [phone] Lizet Wilkes MD [facility] [place] [address] 09/29/2024 4:30 PM EST - 09/29/2024 5:00 PM EST [place] [phone] Lizet Wilkes MD [facility] [place] [address] EGD, UPPER GI ENDOSCOPY (WRVU 2.09) 11/09/2024 10:00 AM EST Laboratory Appointment Lab at [facility] Hematology Oncology [address] [place] [phone] 11/09/2024 11:00 AM EST Office Visit [place]ematology [place] [phone] Faith Caba MD [facility] [place] [address] 11/09/2024 12:00 PM EST Appointment Hematology [place] [phone] Scheduled Procedures Name Priority Associated Diagnoses Date/Ti me EGD, UPPER GI ENDOSCOPY (WRVU 2.09) Gastroesophageal reflux disease with esophagitis, unspecified whether hemorrhage 09/29/2024 4:30 PM EST documented as of this encounter Goals Goal Patient Goal Type Associated Problems Recent Progress Patient-Stated? Author [facility] Medication Compliance and Understanding Patient Facing Action Plan Curly Nicolas, [facility] Note: The patient? s goal is to continue positive results of oral chemotherapy by maintaining improved labs PSA or stable scans in clinic for the upcoming year. documented as of this encounter Visit Diagnoses Not on filedocumented in this encounter Care Teams Outreach Liaison Relationship Specialty Start Date End Date Kennedi Shaver MD [facility] [address] [place] [address] PCP - General Family Medicine 08/02/20 06/24/24 documented as of this encounter
--- OUTSIDE RECORDS SUMMARY | 2024-09-11 15:21 | XMS_ITS | Encounter Summary ---
Author Organization [facility] [place] [address] Care Team Providers Care Lead Generator Name Role Phone Kennedi Shaver MD Primary Care Provider [phone] Encounter Details Date Type Department Care Team (Latest Contact Info) Description 01/15/2023 Travel Social History Tobacco Use Types Packs/Day Years Used Date Smoking Tobacco: Former Cigarettes 1977 Smokeless Tobacco: Never Alcohol Use Standard Drinks/Week Comments Yes 14 (1 standard drink = 0.6 oz pu re alcohol) [facility] Inpatient Questions Answer Date Recorded Does Anyone [...] [facility] Hospital Encounter [place] [phone] Lizet Wilkes MD [facility] [place] [address] 09/29/2024 4:30 PM EST - 09/29/2024 5:00 PM EST Surgery Gastroenterology at [place] [phone] Lizet Wilkes MD [facility] [place] [address] EGD, UPPER GI ENDOSCOPY (WRVU 2.09) 11/09/2024 10:00 AM EST Laboratory Appointment Lab at [facility] Hematology Oncology [address] [place], [place] [phone] 11/09/2024 11:00 AM EST Office Visit Hematology and Oncology at [place] [phone] Faith Caba MD [facility] DR HEMATOLOGY [place] [address] 11/09/2024 12:00 PM EST Appointment Hematology [place] [phone] Scheduled Procedures Name Priority Associated Diagnoses Date/Ti me EGD, UPPER GI ENDOSCOPY (WRVU 2.09) Gastroesophageal reflux disease with esophagitis, unspecified whether hemorrhage 09/29/2024 4:30 PM EST documented as of this encounter Goals Goal Patient Goal Type Associated Problems Recent Progress Patient-Stated? Author [facility] Medication Compliance and Understanding Patient Facing Action Plan Curly Nicolas, [facility] Note: The patient? s goal is to continue positive results of oral chemotherapy by maintaining improved labs PSA or stable scans in clinic for the upcoming year. documented as of this encounter Visit Diagnoses Not on filedocumented in this encounter Care Teams Lead Generator Relationship Specialty Start Date End Date Kennedi Shaver MD [facility] [address] [place] [address] PCP - General Family Medicine 08/02/20 06/24/24 documented as of this encounter
--- OUTSIDE RECORDS SUMMARY | 2024-09-11 15:21 | XMS_ITS | Encounter Summary ---
Author Organization [facility] [place] [address] Care Team Providers Care Geomatics Professor Name Role Phone Kennedi Shaver MD Primary Care Provider Reason for Visit * Auth/Cert (Routine) Specialty Diagnoses / Procedures Referred By Blaine t Referred To Contact Diagnoses Right knee osteoarthritis Procedures PRO ARTHROPLASTY KNEE CONDYLE & PLATEAU MEDIAL & LAT COMPARTMENTS TOTAL KNEE ARTHROPLASTY (WRVU 20.72) MODIFIER,GMK SPHERE EFFICIENCY CR KNEE,MEDACTA Julio Melissa MD [facility] Referral ID Status Reason Start Date Expiration Date Visits Re quested Visits Authorized [id number] 1 1 Encounter Details Date Type Department Care Team (Late st Contact Info) Description 12/19/2022 10:13 AM EDT Anesthesia [place] [address] Gene Lebron MD [facility] [place] [address] Anesthesia Record Procedure Summary Procedure Name Responsible Anesthesiologist Anesthesia Start Time Anesthesia Stop Time TOTAL KNEE ARTHROPLASTY (WRVU 19.6) (Right: Knee) Gene Lebron MD 12/19/22 1013 12/19/22 1225 Events Date Time Event Comment 12/19/2022 0948 1013 AN Verify 1013 Start 1018 Spinal 1022 An Start Data 1030 Anesthesia Ready 1057 Quick Note Pt occassionall y moving arms and obstructing airway 1058 An Intubation 1210 Extubation/LMA Out 1215 an stop data 1225 Recovery or ICU Handoff Jessica ent care was transferred to the destination unit staff after review of the patient's medical history, current anesthetic/surgical status and plan, according to the Provider Handoff Checklist. 1225 Stop Meds Name Total fentaNYL 100 mcg Propofol 50 mg Propofol INF 1,056.45 mg BUpivacaine 0.5% 20 mL Famotidine 20 mg tranexamic acid (Cyklokapron) (100 mg/mL ) infusion 1,000 mg 1,000 mg ceFAZolin (Ancef) 2 g vial a ttach to sodium chloride 0.9% 100 mL Mini-Bag Plus 2 g Mepivacaine (PF) 2% 60 mg Ondansetron 4 mg Lactated Ringers 800 mL * Agents Name O2 Air N2O O2 Auxiliary Flowmeter 1 * Blood No blood administrations on file. Lines, Drains, and Airways Type Details Placement Removal Incision 08/15/22; 0748; Righ t, anterior; groin; non-laparascopic puncture; mesenteric arteriogram w/ dr wilson 08/15/22 0748 by Sintia Carpio RN Wound 08/17/22; 1048; Righ t, distal, lower, posterior; arm; skin tear 08/17/22 1048 by Faye Sahu RN Incision 12/19/22; 1040; Righ t, anterior; knee 12/19/22 1040 by Fely Ho RN (RETIRED) Peripheral IV Line - Single Lumen 12/19/22; 0920; brachial vein, left; [id number] catheter system; 20 gauge; intradermal injection, tolerated well; no longer indicated, removed per policy/procedure, catheter/device intact; 12/20/22; 1408 12/19/22 0920 by Lucie Roberto RN 12/20/22 1408 by Susanna Marroquin LNA documented in this encounter Social History Tobacco [...] of this encounter OR Notes * Anesthesia Postprocedure Evaluation - Gene Lebron MD - 12/19/2022 1:46 PM EDT Department of Anesthesiology Post-procedure Note Patient: Chidi Carbone Procedure Summary Date: 12/19/22 Room / Location: [facility] OR [address] [place] [address] MAIN OR Anesthesia Start: 3 Anesthesia Stop: 1225 Procedures: TOTAL KNEE ARTHROPLASTY (WRVU 19.6) (Right: Knee) MODIFIER,GMK SPHERE EFFICIENCY CR KNEE,MEDACTA (Right) Diagnosis: Primary osteoarthritis of both knees (Right knee osteoarthritis) Surgeons: Julio Melissa MD Responsible Provider: Gene Lebron MD Anesthesia Type: spinal ASA Status: 3 All Anesthesia Providers: Anesthesiologist: Gene Lebron MD HARMONIC ANALYST: Edwardo Thao CRNA Vitals Value Taken Time BP 156/82 12/19/22 1345 Temp 36.4 ??C (97.5 ??F) 12/19/22 1220 Pulse 48 12/19/22 1346 Resp 16 12/19/22 1346 SpO2 97 % 12/19/22 1346 Pain Level 4 12/19/22 1220 Vitals shown include unvalidated device data. Patient Location: PACU/[facility] Level of Consciousness: Awake and Alert Pain Management: Satisfactory Analgesia PONV: None Cardiovascular Status: Hemodynamically Stable Respiratory Status: Stable Respiratory Status Postoperative Fluid Status: Intravascular EUvolemia Possible Anesthetic Complications: NONE apparent at time of evaluation Final Primary Anesthesia Type: Spinal (The anesthetic type performed was the same as planned.) Comments: Doing well in recovery, spinal is wearing off LMA inserted during the case bc of airway obstruction (Known GIRISH) GENE LEBRON MD * Anesthesia Procedure Notes - Edwardo Thao CRNA - 12/19/2022 10:39 AM EDT Associated Order(s): Neuraxial Block Procedure: Neuraxial Block Primary Anesthetic Type: Spinal The patient was greeted. The sedation plan, its benefits, risks and alternatives were discussed with the patient. The patient has consented to the procedure. The medical history and chart were reviewed. The timeout was performed. Start time: 12/19/2022 10:13 AM End time: 12/19/2022 10:18 AM Patient Location: Block Room Patient Prep Position: Sitting Prep: Hand Hygiene, Hat, Mask, Sterile Gloves, Chlorhexidine and Patient Draped Injection technique: single-shot Skin Anesthetic Lidocaine 1% 3 ml Procedure Technique Level of needle insertion: L2-3 Needle approach: midline Needle Type: Pencan Gauge: 25 Needle length: 3.5 in Number of attempts: 1 Medications: Date/Time: 12/19/2022 10:13 AM Mepivacaine (PF) 2% - Intrathecal 60 mg - 12/19/2022 10:18:00 AM Events/Notes Events: None Resident/HARMONIC ANALYST: Edwardo Thao CRNA Second Resident/HARMONIC ANALYST: SRNA: Fellow: Attending Physician: Gene Lebron MD ~~~~~~~~~~~~~~~~~~~~~~~~~~~~~~~~~~~~~~~~~~~~~~~~~~~~~~~~~~~~ * Anesthesia Procedure Notes - Mary Galeano - 12/19/2022 9:45 AM EDT Associated Order(s): Anesthesia Block Anesthesia Block Date/Time: 12/19/2022 9:39 AM Performed by: Mary Galeano MD Authorized by: Edwardo Kelley MD Start Time: 12/19/2022 9:39 AM End Time: 12/19/2022 9:44 AM Patient Location: Block Room The patient was greeted; the risks and benefits of the procedure were reviewed. Indication: Post-op Pain Control Post-op pain management at the request of surgeon. Block Type: Adductor canal block Laterality: Right Position: Supine Prep: Chlorhexidine, patient draped and mask, cap, sterile gloves, hand hygeine Skin Anesthetic: Skin Anesthetic: Lidocaine 1% dose: 4 Block Technique: SonoPlex 21 10 cm Ultrasound Guided: YES and in-plane Ultrasound Image Saved Ultrasound guidance was used to identify the targeted neuronal structure. Ultrasound was also used to identify needle position and to identify tissue (bone, muscle, and blood vessels) to prevent inadvertent intraneural or intravascular needle placement and injection. The spread of local anesthetic was confirmed with live ultrasound imaging. Single-Shot: Single-shot Local Anesthetic Volume(s) Injected for Nerve Block: BUpivacaine 0.5% - Perineural 20 mL - 12/19/2022 9:39:00 AM Staff: Resident/HARMONIC ANALYST:: Mary Galeano MD Fellow:: Surendra Ramirez MD Attending Physician:: Edwardo Kelley MD Notes: Performed under sterile technique with light sedation. Target structures, needle, and local anesthetic spread were visualized under US guidance for the duration of the procedure. Administered bupivacaine 0.5% 20 mL to saphenous nerve. Negative aspirations every 5 cc. No blood aspirated, no pain on i njection, no paresthesias. No needle to nerve contact was observed on ultrasound. Vital signs stable. Patient in communication throughout, tolerated procedure without issue. * Anesthesia Preprocedure Evaluation - Gene Lebron MD - 12/18/2022 4:14 PM EDT Pre-Anesthesia Evaluation for: Chidi Carbone a 77 y.o. male. Procedure(s): TOTAL KNEE ARTHROPLASTY (WRVU 19.6) MODIFIER,GMK SPHERE EFFICIENCY CR KNEE,MEDACTA Patient Active Problem List Diagnosis Date Noted ??? GIRISH (obstructive sleep apnea) 11/15/2022 ??? [...] IR Arteriogram Mesenteric 08/15/2022 Santo Wilson MD [facility] INTERVENTIONL RAD ??? PRO COLONOSCOPY, DIAGNOSTIC N/A 04/19/2015 COLONOSCOPY, DIAGNOSTIC performed by Nino Rocha MD at [facility] ENDOSCOPY ??? PRO COLONOSCOPY, DIAGNOSTIC N/A 08/16/2022 COLONOSCOPY, DIAGNOSTIC performed by Bubba Wallace MD at [facility] ENDOSCOPY ??? PRO COLONOSCOPY, FLEX, W/CONTROL, BLEEDING 08/16/2022 COLONOSCOPY; W CONTROL OF BLEEDING, ANY METHOD performed by Bubba Wallace MD at [facility] ENDOSCOPY ??? PRO DRESSING CHANGE UNDER ANESTHESIA N/A 06/04/2019 DRESSING CHANGE (FOR OTHER THAN RAUSCH) UNDER ANES. (WRVU 0.86) performed by Rodri Villa MD at [facility] MAIN OR ? ? PRO EDG FLEXIBLE TRANSORAL ABLATE TUMOR POLYP/LESION W/DILATION & WIRE N/A 04/19/2015 EGD, TRANSORAL; WITH ABLATION OF TUMOR(S), POLYP(S), OR OTHER LESION(S) performed by Nino Rocha MD at [facility] ENDOSCOPY ??? PRO LAP, ESOPHAGOGAST FUNDOPLASTY 03/08/2014 LAPAROSCOPIC MODESTO FUNDOPLASTY performed by Surendra Garcia MD at [facility] MAIN OR ??? PRO PREP SITE TRUNK/ARM/LEG 1ST 100 SQ CM/1PCT Right 06/04/2019 SURGICAL PREP/CREATION RECIPIENT SITE, FIRST 100 SQ CM, LEGS (WRVU 3.65) performed by Rodri Villa MD at [facility] MAIN OR ? ? PRO SPLIT GRFT TRUNK, ARM, LEG <100SQCM Right 06/04/2019 SPLIT THICK SKIN GRAFT,100 SQ CM OR LESS, LEGS (WRVU 9.9) performed by Rodri Villa MD at [facility] MAIN OR ??? PRO UPPER GI ENDOSCOPY, BIOPSY 11/27/2011 UPPER GASTROINTESTINAL ENDOSCOPY,WITH BIOPSY SINGLE OR MULTIPLE performed by NINO ROCHA I at [facility] ENDOSCOPY ??? PRO UPPER GI ENDOSCOPY, BIOPSY 04/22/2012 UPPER GASTROINTESTINAL ENDOSCOPY,WITH BIOPSY SINGLE OR MULTIPLE performed by NINO ROCHA I at [facility] ENDOSCOPY ??? PRO UPPER GI ENDOSCOPY, BIOPSY 05/12/2013 UPPER GASTROINTESTINAL ENDOSCOPY,WITH BIOPSY SINGLE OR MULTIPLE performed by Nino Rocha MD at [facility] ENDOSCOPY ??? PRO UPPER GI ENDOSCOPY, BIOPSY 10/20/2013 UPPER GASTROINTESTINAL ENDOSCOPY,WITH BIOPSY SINGLE OR MULTIPLE performed by Nino Rocha MD at [facility] ENDOSCOPY ??? PRO UPPER GI ENDOSCOPY, BIOPSY N/A 06/29/2015 EGD WITH BIOPSY performed by Nino Rocha MD at [facility] ENDOSCOPY ??? PRO UPPER GI ENDOSCOPY, DIAGNOSTIC N/A 08/15/2022 EGD, UPPER GI ENDOSCOPY performed by Bubba Wallace MD at [facility] ENDOSCOPY ??? UPPER GI ENDOSCOPY, EXAM 02/13/2011 UPPER GI ENDOSCOPY performed by NINO ROCHA I at [facility] ENDOSCOPY ??? UPPER GI ENDOSCOPY, EXAM 05/12/2013 UPPER GI ENDOSCOPY performed by Nino Rocha MD at [facility] ENDOSCOPY ??? UPPER GI ENDOSCOPY, EXAM N/A 04/19/2015 UPPER GI ENDOSCOPY performed by Nino Rocha MD at [facility] ENDOSCOPY ??? UPPER GI ENDOSCOPY, TUMOR ABLATN 04/22/2012 ENDOSCOPY, UPPER GI, W\ABLATION TUMOR\POLYP\LESION performed by NINO ROCHA I at [facility] ENDOSCOPY Social History Tobacco Use ??? Smoking status: Former Years: 15.00 Types: Cigarettes Quit date: 1977 Years since quittin.2 ??? Smokeless tobacco: Never Substance Use Topics ??? Alcohol use: Yes Alcohol/week: 14.0 standard drinks Types: 14 Glasses [...] AD8 Informant: Patient 11/08/2022 3:00 PM Reynaldo Drew RN CFS Frailty Score: 4 11/08/2022 3:00 PM Reynaldo Drew RN MiniCOG Total Score: 5 11/08/2022 1:12 PM Ayde Tilley RN Anesthesia Plan: ASA 3 spinal, with a(n) intravenous induction 77 y.o. 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 Past Anesthesia History: - Airway history: previously EMV, G1V with VL, G3V with Mac 4 / Mil 2 easy iGel 5 insertion - Anesthetic exposures: numerous prior GA / MAC - Anesthetic complications: no personal or family hx anesthetic complications Activity Tolerance: >4 METs NPO status appropriate No Known Allergies EKG (11/09/22): NSR, borderline LVH Labs reviewed, relevant studies: Plan: SAB / propofol MAC (GA / ETT vs LMA backup), PIVx1 Preop LE PNB for postop pain control OR attending Patient seen and examined pre-op All questions answered GENE LEBRON MD Region - Other Informed Consent: Anesthetic plan and risks discussed with patient. Use of blood products discussed with patient who. Plan discussed with attending and resident. Anesthesia Screening documented in this encounter Miscellaneous Notes * Addendum Note - Edwardo Kelley MD - 12/19/2022 3:43 PM EDT Addendum created 12/19/22 1543 by Edwardo Kelley MD Attestation recorded in Intraprocedure, Cosign clinical note, Flowsheet accepted, Intraprocedure Attestations filed documented in this encounter Plan of Treatment Upcoming Encounters Date Type Department Care Team (Latest Contact Info) Description 09/29/2024 4:30 PM EST Hospital En[place] [phone] Lizet Wilkes MD [facility] [place] [address] 09/29/2024 4:30 PM EST - 09/29/2024 5:00 PM EST [place] [phone] Lizet Wilkes MD [facility] [place] [address] EGD, UPPER GI ENDOSCOPY (WRVU 2.09) 11/09/2024 10:00 AM EST Laboratory Appointment Lab at [facility] Hematology Oncology [address] [place] [phone] 11/09/2024 11:00 AM EST Office Visit [place]ology [place] [phone] Faith Caba MD [facility] DR HEMATOLOGY [place] [address] 11/09/2024 12:00 PM EST Appointment [place]ology [place] [phone] Scheduled Procedures Name Priority Associated Diagnoses Date/Ti me EGD, UPPER GI ENDOSCOPY (WRVU 2.09) Gastroesophageal reflux disease with esophagitis, unspecified whether hemorrhage 09/29/2024 4:30 PM EST documented as of this encounter Goals Goal Patient Goal Type Associated Problems Recent Progress Patient-Stated? Author DH Home Medication Compliance and Understanding Patient Facing Action Plan No Curly Andres, [facility] Note: The patient? s goal is to continue positive results of oral chemotherapy by maintaining improved labs PSA or stable scans in clinic for the upcoming year. documented as of this encounter Procedures Procedure Name Priority Date/Time Associated Diagnosis Comments ANE NEURAXIAL APS USE Routine 12/19/2022 10:13 AM EDT ANESTHESIA BLOCK Routine 12/19/2022 9:39 AM EDT documented in this encounter Results * Neuraxial Block (12/19/2022 10:13 AM EDT) Narrative Edwardo Thao CRNA - 12/19/2022 10:13 AM EDT Edwardo Thao CRNA ? 12/19/2022 10:41 AM Procedure: ?? Neuraxial Block Primary Anesthetic Type: Spinal The patient was greeted. The sedation plan, its benefits, risks and alternatives were discussed with the patient. ??The patient has consented to the procedure. ??The medical history and chart were reviewed. ??The timeout was performed. Start time: 12/19/2022 10:13 AM End time: 12/19/2022 10:18 AM Patient Location: Block Room Patient Prep Position: Sitting Prep: Hand Hygiene, Hat, Mask, Sterile Gloves, Chlorhexidine and Patient Draped Injection technique: single-shot Skin Anesthetic Lidocaine 1% ??3 ml Procedure Technique Level of needle insertion: L2-3 Needle approach: midline Needle Type: Pencan Gauge: 25 Needle length: 3.5 in Number of attempts: 1 Medications: Date/Time: ??12/19/2022 10:13 AM Mepivacaine (PF) 2% - Intrathecal 60 mg - 12/19/2022 10:18:00 AM Events/Notes Events: ??None Resident/HARMONIC ANALYST: ? Edwardo Thao CRNA Second Resident/HARMONIC ANALYST: SRNA: ? Fellow: ? Attending Physician: ? Gene Lebron MD ~~~~~~~~~~~~~~~~~~~~~~~~~~~~~~~~~~~~~~~~~~~~~~~~~~~~~~~~~~~~ Gene Lebron MD INTAKE COUNSELOR GS * Anesthesia Block (12/19/2022 9:39 AM EDT) Narrative Edwardo Kelley MD - 12/19/2022 9:39 AM EDT Mary Galeano MD ? 12/19/2022 ??9:47 AM Anesthesia Block Date/Time: 12/19/2022 9:39 AM Performed by: Mary Galeano MD Authorized by: Edwardo Kelley MD Start Time: ??12/19/2022 9:39 AM End Time: ??12/19/2022 9:44 AM Patient Location: ??Block Room The patient was greeted; the risks and benefits of the procedure were reviewed. ?? Indication: ??Post-op Pain Control Post-op pain management at the request of surgeon. ?? Block Type: ??Adductor canal block Laterality: ??Right Position: ??Supine Prep: ??Chlorhexidine, patient draped and mask, cap, sterile gloves, hand hygeine Skin Anesthetic: ??Skin Anesthetic: ??Lidocaine 1% ??dose: ??4 Block Technique: ?? SonoPlex ?? 21 ?? 10 cm ??Ultrasound Guided: ??YES and in-plane ??Ultrasound Image Saved ?Ultrasound guidance was used to identify the targeted neuronal structure. Ultrasound was also used to identify needle position and to identify tissue (bone, muscle, and blood vessels) to prevent inadvertent intraneural or intravascular needle placement and injection. The spread of local anesthetic was confirmed with live ultrasound imaging. ?Single-Shot: ??Single-shot Local Anesthetic Volume(s) Injected for Nerve Block: ?? BUpivacaine 0.5% - Perineural 20 mL - 12/19/2022 9:39:00 AM Staff: ??Resident/HARMONIC ANALYST:: ??Mary Galeano MD ??Fellow:: ??Surendra Ramirez MD ??Attending Physician:: ??Edwardo Kelley MD Notes: ?? Performed under sterile technique with light sedation. Target structures, needle, and local anesthetic spread were visualized under US guidance for the duration of the procedure. Administered bupivacaine 0.5% 20 mL to saphenous nerve. Negative aspirations every 5 cc. No blood aspirated, no pain on injection, no paresthesias. No needle to nerve contact was observed on ultrasound. Vital signs stable. Patient in communication throughout, tolerated procedure without issue. Edwardo Kelley MD INTAKE COUNSELOR CHGS documented in this encounter Visit Diagnoses Not on filedocumented in this encounter Administered Medications Inactive Administered Medications - up to 3 most recent administrations Medication Order MAR Action Action Date Dose Rate Site BUpivacaine (pf) (Marcaine) (5 mg/mL) 0.5% injection Perineural, Starting on Sat12/19/22 at 0939, Until Sat12/19/22 at 0939, Anesthesia Intra-op, Routine Given 12/19/2022 9:39 AM EDT 20 mLs ceFAZolin (Ancef) 2 g vial attach to sodium chloride 0.9% 100 mL Mini-Bag Plus 2 g, Intravenous, EVERY 4 HOURS, 1 dose, First dose on Sat12/19/22 at 0845, Administer over 30 Minutes, Redose after 4 hours., Day of Surgery (Day of Procedure), Indication for (Active or Suspected): Prophylaxis New Bag 12/19/2022 10:29 AM EDT 2 g famotidine (Pepcid) (10 mg/mL) injection Intravenous, PRN, Starting on Sat12/19/22 at 1012, Until Sat12/19/22 at 1248, Anesthesia Intra-op, Routine Given 12/19/2022 10:12 AM EDT 20 mg fentaNYL (pf) (50 mcg/mL) multi-dose injection Intravenous, PRN, Starting on Sat12/19/22 at 1055, Until Sat12/19/22 at 1248, Anesthesia Intra-op, Routine Given 12/19/2022 11:50 AM EDT 50 mcg Given 12/19/2022 10:55 AM EDT 50 mcg lactated ringers infusion Intravenous, CONTINUOUS PRN, Starting on Sat12/19/22 at 1135, Until Sat12/19/22 at 1248, Anesthesia Intra-op New Bag 12/19/2022 11:35 AM EDT mepivacaine (PF) (Carbocaine (PF)) 20 mg/mL (2 %) injection Intrathecal, Starting on Sat12/19/22 at 1018, Until Sat12/19/22 at 1018, Anesthesia Intra-op, Routine Given 12/19/2022 10:18 AM EDT 60 mg ondansetron (pf) (Zofran) (2 mg/mL) injection Intravenous, PRN, Starting on Sat12/19/22 at 1139, Until Sat12/19/22 at 1248, Anesthesia Intra-op, Routine Given 12/19/2022 11:39 AM EDT 4 mg propofoL (Diprivan) (10 mg/mL) infusion Intravenous, CONTINUOUS PRN, Starting on Sat12/19/22 at 1033, Until Sat12/19/22 at 1248, Anesthesia Intra-op, Routine Rate/Dose Change 12/19/2022 11:10 AM EDT 120 mcg/kg/min 59.472 mL/hr Rate/Dose Change 12/19/2022 10:55 AM EDT 150 mcg/kg/min 74 .34 mL/hr New Bag 12/19/2022 10:33 AM EDT 70 mcg/kg/min 34.692 mL /hr propofoL (Diprivan) 10 mg/mL bolus injection (Anesthesia) Intravenous, PRN, Starting on Sat12/19/22 at 1033, Until Sat12/19/22 at 1248, Anesthesia Intra-op Given 12/19/2022 10:33 AM EDT 50 mg tranexamic acid (Cyklokapron) (100 mg/mL) infusion 1,000 mg 1,000 mg, Intravenous, ONCE, 1 dose, On Sat12/19/22 at 0845, The maximum infusion rate for Tranexamic Acid is 100 mg/min., Day of Surgery (Day of Procedure), STAT Given 12/19/2022 10:29 AM EDT 1,0 00 mg documented in this encounter Care Teams Geomatics Professor Relationship Specialty Start Date End Date Kennedi Shaver MD [facility] [address] [place] [address] PCP - General Family Medicine 08/02/20 06/24/24 documented as of this encounter
--- OUTSIDE RECORDS SUMMARY | 2024-09-11 15:21 | XMS_ITS | Encounter Summary ---
Author Organization [facility] [place] [address] Care Team Providers Care Anesthesia Director Name Role Phone Kennedi Shaver MD Primary Care Provider [phone] Encounter Details Date Type Department Care Team (Late st Contact Info) Description 11/15/2022 Telephone Hematology [place] [phone] Wyatt Barriga PA [facility] [address] [place] [address] Social History Tobacco Use Types Packs/Day Years [...] encounter Miscellaneous Notes * Telephone Encounter - Wyatt Barriga PA - 11/15/2022 11:34 AM EST 3rd phone call to pt for today: We reviewed result of Bone scan on 11/12/22-- Stable disease. No new sites of disease Plan. Continue current treatment regimen. Follow-up in December for next Lupron inj Wyatt Barriga PA-C Medical Oncology documented in this encounter Plan of Treatment Upcoming Encounters Date Type Department Care Team (Latest Contact Info) Description 09/29/2024 4:30 PM EST Hospital Encounter Gastroenterology at [place] [phone] Lizet Wilkes MD [facility] [place] [address] 09/29/2024 4:30 PM EST - 09/29/2024 5:00 PM EST [place] [phone] Lizet Wilkes MD [facility] [place] [address] EGD, UPPER GI ENDOSCOPY (WRVU 2.09) 11/09/2024 10:00 AM EST Laboratory Appointment Lab at [facility] [place] [address] [place] [phone] 11/09/2024 11:00 AM EST Office Visit Hematology and Oncology at [place] [phone] Faith Caba MD [facility] [place] [address] 11/09/2024 12:00 PM EST Appointment Hematology and Oncology at [place] [phone] Scheduled Procedures Name Priority Associated Diagnoses Date/Ti me EGD, UPPER GI ENDOSCOPY (WRVU 2.09) Gastroesophageal reflux disease with esophagitis, unspecified whether hemorrhage 09/29/2024 4:30 PM EST documented as of this encounter Goals Goal Patient Goal Type Associated Problems Recent Progress Patient-Stated? Author DH Home Medication Compliance and Understanding Patient Facing Action Plan Curly Nicolas, [facility] Note: The patient? s goal is to continue positive results of oral chemotherapy by maintaining improved labs PSA or stable scans in clinic for the upcoming year. documented as of this encounter Visit Diagnoses Not on filedocumented in this encounter Care Teams Anesthesia Director Relationship Specialty Start Date End Date Kennedi Shaver MD [facility] [address] [facility] [address] [place] [address] PCP - General Family Medicine 08/02/20 06/24/24 documented as of this encounter
--- OUTSIDE RECORDS SUMMARY | 2024-09-11 15:21 | XMS_ITS | Encounter Summary ---
Author Organization [facility] [place] [address] Care Team Providers Care Survey Chief Name Role Phone Kennedi Shaver MD Primary Care Provider [phone] Encounter Details Date Type Department Care Team (Late st Contact Info) Description 01/09/2023 Telephone [place] [address] Sujey Jackson Social History Tobacco Use Types Packs/Day Years Used Date Smoking Tobacco: Former Cigarettes 1977 Smokeless Tobacco: Never Alcohol Use Standard Drinks/Week Comments Yes 14 (1 standard drink = 0.6 oz pu re alcohol) [facility] Inpatient Questions Answer Date Recorded Does Anyone [...] encounter Miscellaneous Notes * Telephone Encounter - Sujey Jackson - 01/09/2023 1:05 PM EDT Chidi Carbone [id number] Diagnosis/Indication: egd to follow up esophagitis, colonoscopy to follow up polyps after divertiocular bleed Please review patient chart to confirm if [...] SCHEDULING QUESTIONS (ask all patient these questions) 1. Have you ever had a/an Upper Endoscopy & Colonoscopy before? Yes: Date EGD 08/16/22 [place] 08/16/22 If yes, did you have any problems with the procedure (such as waking up during the procedure, pain or difficulties afterwards, etc.)? No What type of sedation was used: General Anesthesia 2. Do you take any blood thinners or have you been diagnosed with a bleeding disorder that increases your risk of bleeding with procedures? Yes: Type: Xarelto 3. Do you have a Pacemaker or Defibrillator device? If yes, send pool message to Cardiology with patient information and date or procedure. No 4. Are you a diabetic? If yes, call PCP/managing provider to discuss use of prep and any questions or concerns related to. No 5. Do you take any iron supplements or vitamins that contain iron? No 6. Do you have a preference regarding the gender of your provider? No ANESTHESIA QUESTIONS (YES to any question, please book with Anesthesia support) 7. Have you ever been diagnosed with Pulmonary Hypertension and/or Congential Heart Disease? No 8. Have you been diagnosed with A-Fib (atrial fibrillation) that is NOT being well controled with medications? No 9. Have you ever had an allergic or adverse reaction to Fentanyl or Versed? No 10. Have you had a problem with sedation or anesthesia? (Waking up during procedure, extreme confusion after, etc.) No 11. Do you have a diagnosis of Obstructive Sleep Apnea that requires the use of a c-pap machine? Yes 12. Do you use an oxygen tank at home? No 13. Do you use a rescue inhaler more than twice per day? (COPD, severe asthma) No 14. Do you experience breathing problems when you lay flat for a period of time? No 15. Do you take prescription narcotic pain medications, including suboxone or methodone? No SCHEDULING CONFIRMATIONS: Please note any and all parts of your conversation with the patient here. 16. We offer all new patients an opportunity to have an appointment with one of our associate care providers to learn more about your upcoming procedure, ask questions and get answers. These appointments are offered via telehealth. Would you be interested in scheduling this appointment? (Only ask if NEW referral patient; skip this question if GI provider ordered the procedure.) No 17. Is there any other information or concerns you would like to us to share with your care team inrelation to your upcoming scheduled procedure? No 18. You must have a responsible libertarian who will drive you to your procedure, stay on campus for the entire duration of your procedure, and drive you home from your procedure. Who will likely be your dump truck driver for the procedure? *Please Verify the height and weight, and adjust if height and/or weight have changed* Estimated body mass index is 26.14 kg/m?? as calculated from the following: Height as of 12/19/22: 177.8 cm (5' 10). Weight as of 12/19/22: 82.6 kg (182 lb 3.2 oz). *Delete if not needed* Height: 5'10 Weight: 175 BMI: 25.1 Age:77 y.o. documented in this encounter Plan of Treatment Upcoming Encounters Date Type Department Care Team (Latest Contact Info) Description 09/29/2024 4:30 PM EST Hospital En[place] [address] Lizet Wilkes MD [facility] [place] [address] 09/29/2024 4:30 PM EST - 09/29/2024 5:00 PM EST [place] [address] Lizet Wilkes MD [facility] [place] [address] EGD, UPPER GI ENDOSCOPY (WRVU 2.09) 11/09/2024 10:00 AM EST Laboratory Appointment [place] [facility] [place] [address] [place] [phone] 11/09/2024 11:00 AM EST Office Visit H[place]ology [place] [phone] Faith Caba MD [facility] DR HEMATOLOGY [place] [address] 11/09/2024 12:00 PM EST Appointment Hematology [place] [phone] Scheduled Procedures Name Priority Associated Diagnoses Date/Ti me EGD, UPPER GI ENDOSCOPY (WRVU 2.09) Gastroesophageal reflux disease with esophagitis, unspecified whether hemorrhage 09/29/2024 4:30 PM EST documented as of this encounter Goals Goal Patient Goal Type Associated Problems Recent Progress Patient-Stated? Author DH [place] Medication Compliance and Understanding Patient Facing Action Plan Curly Nicolas, [facility] Note: The patient? s goal is to continue positive results of oral chemotherapy by maintaining improved labs PSA or stable scans in clinic for the upcoming year. documented as of this encounter Visit Diagnoses Not on filedocumented in this encounter Care Teams Survey Chief Relationship Specialty Start Date End Date Kennedi Shaver MD [facility] [address] [place] [address] PCP - General Family Medicine 08/02/20 06/24/24 documented as of this encounter
--- OUTSIDE RECORDS SUMMARY | 2024-09-11 15:21 | XMS_ITS | Encounter Summary ---
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 Hem Onc [address] [place] [address] Referral ID Status Reason Start Date Expiration Date V isits Requested Visits Authorized [id number] Authorized 09/27/2020 09/29/2024 99 99 Encounter Details Date Type Department Care Team (Latest Contact Info) Description 01/15/2023 11:00 AM EDT - 01/15/2023 11:59 PM EDT Hospital Encounter Hematology [place] [address] Neoplasm of prostate, distant metastasis staging category [...] months, dosage unknown oxyCODONE (Roxicodone) 5 mg tabletIndications:S/P total knee arthroplasty, right Take 1 tablet by mouth every 4 hours as needed for Pain. 38 tablet 12/25/2022 01/24/2023 rivaroxaban (Xarelto) 10 mg tablet Take 1 [...] of this encounter Progress Notes * Deborah Jacobo RN - 01/15/2023 11:31 AM EDT Patient Name: Chidi Carbone Patient Age: 77 y.o. Birthdate: 1945 Admit date: 01/15/2023 Attending Physician: No att. providers found Here for lupron injection,tolerated well documented in this encounter Plan of Treatment Upcoming Encounters Date Type Department Care Team (Latest Contact Info) Description 09/29/2024 4:30 PM EST Hospital Encounter [place] [address] Lizet Wilkes MD [facility] [address] 09/29/2024 4:30 PM EST - 09/29/2024 5:00 PM EST Surgery Gastroenterology at [place] [phone] Lizet Wilkes MD [facility] [place] [address] EGD, UPPER GI ENDOSCOPY (WRVU 2.09) 11/09/2024 10:00 AM EST Laboratory Appointment Lab at [facility] Hematology Oncology [address] [place], [place] [phone] 11/09/2024 11:00 AM EST Office Visit Hematology and Oncology at [place] [phone] Faith Caba MD [facility] [address] [place] [address] 11/09/2024 12:00 PM EST Appointment Hematology and Oncology at [place] [phone] Scheduled Procedures Name Priority Associated Diagnoses Date/Ti ms EGD, UPPER GI ENDOSCOPY (WRVU 2.09) Gastroesophageal reflux disease with esophagitis, unspecified whether hemorrhage 09/29/2024 4:30 PM EST documented as of this encounter Goals Goal Patient Goal Type Associated Problems Recent Progress Patient-Stated? Author [facility] Medication Compliance and Understanding Patient Facing Action Plan Curly Nicolas, [facility] Note: The patient? s goal [...] 22.5 mg, Intramuscular, ONCE, 1 dose, On Sat01/15/23 at 1130, , Routine, This agent is restricted to outpatient use. Is this drug being given as an outpatient? Yes Given 01/15/2023 11:22 AM EDT 22.5 mg Left Gluteal documented in this encounter Care Teams Harmonic Analyst Relationship Specialty Start Date End Date Kennedi Shaver MD [facility] [address] [facility] [address] [place] [address] PCP - General Family Medicine 08/02/20 06/24/24 documented as of this encounter
--- OUTSIDE RECORDS SUMMARY | 2024-09-11 15:21 | XMS_ITS | Encounter Summary ---
Author Organization [facility] [place] [address] Care Team Providers Care Hall Worker Name Role Phone Kennedi Shaver MD Primary Care Provider [phone] Encounter Details Date Type Department Care Team (Latest Contact Info) Description 11/15/2022 9:30 AM EST TH Visit (TeleHealth) Hematology [place] [address] Wyatt Barriga PA [facility] DR HEMATOLOGY [place] [address] Neoplasm of prostate, distant metastasis staging category [...] as of this encounter Progress Notes * Wyatt Barriga PA - 11/15/2022 9:30 AM EST NO SHOW TH VISIT Telephone call 2x to patient today for follow-up visit. No answer. Patient mailbox is full and could not leave a message. Will reschedule. He Last received Lupron 10/16/2022. Next due January 08, 2023. Last DEXA scan showed osteopenia. Continue taking calcium and vitamin D Wyatt Barriga PA-C Medical Oncology documented in this encounter Plan of Treatment Upcoming Encounters Date Type Department Care Team (Latest Contact Info) Description 09/29/2024 4:30 PM EST Hospital Encounter Gastroenterology at [place] [phone] Lizet Wilkes MD [facility] [place] [address] 09/29/2024 4:30 PM EST - 09/29/2024 5:00 PM EST Surgery Gastroenterology at [place] [phone] Lizet Wilkes MD [facility] [place] [address] EGD, UPPER GI ENDOSCOPY (WRVU 2.09) 11/09/2024 10:00 AM EST Laboratory Appointment Lab at [facility] [place] [place] Hematology Oncology [address] [place] [phone] 11/09/2024 11:00 AM EST Office Visit Hematology [place] [phone] Faith Caba MD [facility] [address] 11/09/2024 12:00 PM EST Appointment Hematology [place] [phone] Scheduled Procedures Name Priority Associated Diagnoses Date/Ti [...] hemorrhage documented in this encounter Care Teams Hall Worker Relationship Specialty Start Date End Date Kennedi Shaver MD [address] [place] [address] PCP - General Family Medicine 08/02/20 06/24/24 documented as of this encounter
--- OUTSIDE RECORDS SUMMARY | 2024-09-11 15:21 | XMS_ITS | Encounter Summary ---
[place] [address] Care Team Providers Care Sales And Customer Relations Rep Name Role Phone Kennedi Shaver MD Primary Care Provider [phone] Reason for Visit * Reason Comments Specialty Refill Management Encounter Details Date Type Department Care Team (Late st Contact Info) Description 01/10/2023 Specialty [place] [address] Radha Larson [facility] Social History Tobacco Use Types Packs/Day Years Used Date Smoking Tobacco: Former Cigarettes 1977 Smokeless Tobacco: Never Alcohol Use Standard Drinks/Week Comments Yes 14 (1 standard drink = 0.6 oz pu re alcohol) [facility] Inpatient Questions Answer Date [...] this encounter Progress Notes * Radha Larson [facility] - 01/10/2023 3:21 PM EDT Clinical Management Plan: Refill Specialty Pharmacy Consultation; Radha Larson [facility] Medication Management (CMM) Chidi Carbone is a 77 y.o. (1945) male who was contacted in regard to a specialty medication refill reminder. Contact made with patient regarding abiraterone. A review of the medication therapy was performed. The medication was refilled as scheduled, and all medication related questionsand concerns were addressed. The specialty pharmacy staff will follow up with the patient 5-7 days prior to next refill. Was a change made to the Care Plan: no If yes, should the medication be held: No Assessment and Recommendations: Medication Management Type of Medication Management: targeted medication review Referred By: provider Recipient: beneficiary Provider: plan sponsor pharmacist Visit Type: Misc Follow-up Time Spent: 1-15 min Method of Contact: by telephone Cognitive Ability: good Cognitive Impairment Status Verified this Year: no Allergies and Drug intolerance: No Known Allergies Medication Reconciliation Discrepancies (compared to [facility] med list) -n/a Specialty Pharmacy Refill Questionnaire 01/16/2023 Refill Questionnaire What is the name of the specialty medication you are refilling? abiraterone Are you taking any new medications? No Any new medical condition? No Any new allergies? No Any missed doses since your last fill? 1-2 Any new side effects that are bothersome? No What date will you need this fill by? 01/23/2023 Adherence: Specialty Med Adherence Patient Demonstrates Understanding of Importance of Adherence: Yes Educational Information or Adherence Tools Provided: Yes Patient Reported X Missed Doses in the Last Month: 2 If >0, reason for missed doses: memory Provider-Estimated Medication Adherence Level: 90-100% Adherence Tools Used: calendar Pt understands no changes to current drug regimen were made at the appointment and that [facility] is providing recommendations (summary located at top of note) for provider review and follow up. Radha Larson RPH 01/16/23 12:12 PM documented in this encounter Plan of Treatment Upcoming Encounters Date Type Department Care Team (Latest Contact Info) Description 09/29/2024 4:30 PM EST Hospital Encounter [place] [phone] Lizet Wilkes MD [facility] [place] [address] 09/29/2024 4:30 PM EST - 09/29/2024 5:00 PM EST [place] [phone] Lizet Wilkes MD [facility] [place] [address] EGD, UPPER GI ENDOSCOPY (WRVU 2.09) 11/09/2024 10:00 AM EST Laboratory Appointment Lab at [facility] Hematology Oncology [address] [place] [phone] 11/09/2024 11:00 AM EST Office Visit Hematology [place] [phone] Faith Caba MD [facility] DR HEMATOLOGY [place] [address] 11/09/2024 12:00 PM EST Appointment Hematology and Oncology at [place] [phone] Scheduled Procedures Name Priority Associated Diagnoses Date/Ti ri EGD, UPPER GI ENDOSCOPY (WRVU 2.09) Gastroesophageal reflux disease with esophagitis, unspecified whether hemorrhage 09/29/2024 4:30 PM EST documented as of this encounter Goals Goal Patient Goal Type Associated Problems Recent Progress Patient-Stated? Author [facility] Home Medication Compliance and Understanding Patient Facing Action Plan Curly Nicolas, [facility] Note: The patient? s goal is to continue positive results of oral chemotherapy by maintaining improved labs PSA or stable scans in clinic for the upcoming year. documented as of this encounter Visit Diagnoses Not on filedocumented in this encounter Care Teams Sales And Customer Relations Rep Relationship Specialty Start Date End Date Sivakumar, Kennedi C, MD [address] [place] [address] PCP - General Family Medicine 08/02/20 06/24/24 documented as of this encounter
--- OUTSIDE RECORDS SUMMARY | 2024-09-11 15:21 | XMS_ITS | Encounter Summary ---
Author Organization [facility] Address [facility] [place] [address] Care Team Providers Care Respiratory Therapy Aide Name Role Phone Kennedi Shaver MD Primary Care Provider [phone] Reason for Referral * Home Health Care (Routine) - Closed Specialty Diagnoses / Procedures Referred By Blaine peralta Referred To Contact Diagnoses S/P total knee arthroplasty, right Julio Melissa MD [facility] [place] [address] [address] Referral ID Status Reason Start Date Expiration Date V isits Requested Visits Authorized [id number] Closed Consult, Test & Treat 12/20/2022 06/18/2023 999 999 Reason for Visit * Auth/Cert (Routine) Specialty Diagnoses / Procedures Referred By Blaine peralta Referred To Contact Diagnoses Right knee osteoarthritis Procedures PRO ARTHROPLASTY KNEE CONDYLE & PLATEAU MEDIAL & LAT COMPARTMENTS TOTAL KNEE ARTHROPLASTY (WRVU 20.72) MODIFIER,GMK SPHERE EFFICIENCY CR KNEE,MEDACTA Julio Melissa MD [facility] Referral ID Status Reason Start Date Expiration Date Visits Re quested Visits Authorized [id number] 1 1 Encounter Details Date Type Department Care Team (Latest Contact Info) Description 12/19/2022 8:12 AM EDT - 12/20/2022 2:48 PM EDT Hospital Encounter [place] [address] Julio Melissa MD Primary osteoarthritis of both knees; 12/19/22 S/P right total knee arthroplasty (Dr. Melissa) Discharge Disposition: Home Social History Tobacco Use [...] Sign Reading Time Taken Comments Blood Pressure 128/65 12/20/2022 11:29 AM EDT Pulse 50 12/19/2022 3:00 PM EDT Temperature 36.8 ??C (98.2 ??F) 12/20/2022 11:29 AM E DT Respiratory Rate 16 12/20/2022 11:29 AM EDT Oxygen Saturation 96% 12/20/2022 11:29 AM EDT Inhaled Oxygen Concentration - - Weight 82.6 kg (182 lb 3.2 oz) 12/19/2022 8:30 A M EDT Height 177.8 cm (5' 10) 12/19/2022 8:30 AM EDT Body Mass Index 26.14 12/19/2022 8:30 AM EDT documented in this encounter Discharge Instructions * Patient Instructions* Doris Pearson, BARTOLO - 12/19/2022 12:49 PM EDT Activity: 1. [...] bowel movement. You can also take an bofd-dsv-rrnyqcu medication, Miralax if needed to combat constipation. [...] as much as possible. Call your doctor ([phone]) if you develop: Fever greater than 100.5 Severe nausea or vomiting Increasing pain that is not controlled by pain medications Increasing redness, swelling, or drainage from incisions Change in sensation FOLLOW-UP APPOINTMENTS: 1. You will have follow-up appointments at [facility] as indicated below in Future Appointment and Orders. 2. You will need to have x-rays prior to your follow-up appointment on 01/24. Please come to Radiology, desk 3T, 1 hour BEFORE that appointment for those x-rays. Future Appointments Date Time Provider Department Center 01/15/2023 9:00 AM LABORATORY, TECH [facility] INF 3K [facility] 01/15/2023 10:00 AM Faith Caba MD [facility] HEM ONC [facility] 01/15/2023 11:00 AM ACCESS ROOM [facility] INF 3K [facility] 01/24/2023 10:00 AM [facility] DX ROOM 1 MH Xray [facility] Rad 01/24/2023 10:40 AM Julio Melissa MD [facility] ORTH [address] [place] [address] If you have questions or concerns: Saturday through Saturday, 8 AM - 5 PM, please call Dr. Julio Melissa MD's office at . If it is after 5 PM, the weekend, or holidays, please call and ask to speak with theOrthopedic resident on-call. * Attachments The following attachments cannot be sent through Care Everywhere. * Direct Oral Anticoagulants: Non-Vitamin K Antagonist (Congolese) documented in this encounter Medications at Time [...] Ríos RN - 12/20/2022 2:44 PM EDT [facility] Short Stay Unit Discharge Note All relevant discharge milestones have been met by the patent. After Visit Summary and discharge teaching reviewed with the patient. IV access has been discontinued. All personal belongings have been returned to the patient/family upon their departure from the unit. Patient has been discharged to home The patient has been discharged without VNA services. Given paperwork for Chavo.No D/C summary avail to be sent. * Katalina Arias PT - 12/20/2022 10:11 AM EDT Physical [...] IR Arteriogram Mesenteric 08/15/2022 Santo Duarte MD [facility] INTERVENTIONL RAD ? ? PRO ARTHROPLASTY KNEE CONDYLE & PLATEAU MEDIAL & LAT COMPARTMENTS Right 12/19/2022 TOTAL KNEE ARTHROPLASTY (WRVU 19.6) performed by Julio Melissa MD at [facility] MAIN OR ??? PRO COLONOSCOPY, DIAGNOSTIC N/A 04/19/2015 COLONOSCOPY, DIAGNOSTIC performed by Nino Rocha MD at [facility] ENDOSCOPY ??? PRO COLONOSCOPY, DIAGNOSTIC N/A 08/16/2022 COLONOSCOPY, DIAGNOSTIC performed by Bubba Wallace MD at [facility] ENDOSCOPY ??? PRO COLONOSCOPY, FLEX, W/CONTROL, BLEEDING 08/16/2022 COLONOSCOPY; W CONTROL OF BLEEDING, ANY METHOD performed by Bubba Wallace MD at [facility] ENDOSCOPY ??? PRO DRESSING CHANGE UNDER ANESTHESIA N/A 06/04/2019 DRESSING CHANGE (FOR OTHER THAN RAUSCH) UNDER ANES. (WRVU 0.86) performed by Rodri Villa MD at [facility] MAIN OR ? ? PRO EDG FLEXIBLE TRANSORAL ABLATE TUMOR POLYP/LESION W/DILATION & WIRE N/A 04/19/2015 EGD, TRANSORAL; WITH ABLATION OF TUMOR(S), POLYP(S), OR OTHER LESION(S) performed by Nino Rocha MD at [facility] ENDOSCOPY ??? PRO LAP, ESOPHAGOGAST FUNDOPLASTY 03/08/2014 LAPAROSCOPIC MODESTO FUNDOPLASTY performed by Surendra Garcia MD at [facility] MAIN OR ??? PRO PREP SITE TRUNK/ARM/LEG 1ST 100 SQ CM/1PCT Right 06/04/2019 SURGICAL PREP/CREATION RECIPIENT SITE, FIRST 100 SQ CM, LEGS (WRVU 3.65) performed by Rodri Villa MD at [facility] MAIN OR ? ? PRO SPLIT GRFT TRUNK, ARM, LEG <100SQCM Right 06/04/2019 SPLIT THICK SKIN GRAFT,100 SQ CM OR LESS, LEGS (WRVU 9.9) performed by Rodri Villa MD at [facility] MAIN OR ??? PRO UPPER GI ENDOSCOPY, BIOPSY 11/27/2011 UPPER GASTROINTESTINAL ENDOSCOPY,WITH BIOPSY SINGLE OR MULTIPLE performed by NINO ROCHA I at [facility] ENDOSCOPY ??? PRO UPPER GI ENDOSCOPY, BIOPSY 04/22/2012 UPPER GASTROINTESTINAL ENDOSCOPY,WITH BIOPSY SINGLE OR MULTIPLE performed by NINO ROCHA I at [facility] ENDOSCOPY ??? PRO UPPER GI ENDOSCOPY, BIOPSY 05/12/2013 UPPER GASTROINTESTINAL ENDOSCOPY,WITH BIOPSY SINGLE OR MULTIPLE performed by Nino Rocha MD at [facility] ENDOSCOPY ??? PRO UPPER GI ENDOSCOPY, BIOPSY 10/20/2013 UPPER GASTROINTESTINAL ENDOSCOPY,WITH BIOPSY SINGLE OR MULTIPLE performed by Nino Rocha MD at [facility] ENDOSCOPY ??? PRO UPPER GI ENDOSCOPY, BIOPSY N/A 06/29/2015 EGD WITH BIOPSY performed by Nino Rocha MD at [facility] ENDOSCOPY ??? PRO UPPER GI ENDOSCOPY, DIAGNOSTIC N/A 08/15/2022 EGD, UPPER GI ENDOSCOPY performed by Bubba Wallace MD at [facility] ENDOSCOPY ??? UPPER GI ENDOSCOPY, EXAM 02/13/2011 UPPER GI ENDOSCOPY performed by NINO ROCHA I at [facility] ENDOSCOPY ??? UPPER GI ENDOSCOPY, EXAM 05/12/2013 UPPER GI ENDOSCOPY performed by Nion Rocha MD at [facility] ENDOSCOPY ??? UPPER GI ENDOSCOPY, EXAM N/A 04/19/2015 UPPER GI ENDOSCOPY performed by Nino Rocha MD at [facility] ENDOSCOPY ??? UPPER GI ENDOSCOPY, TUMOR ABLATN 04/22/2012 ENDOSCOPY, UPPER GI, W\ABLATION TUMOR\POLYP\LESION performed by NINO ROCHA I at [facility] ENDOSCOPY Social History: Home set-up: Pt lives [...] in the community. 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 Time IN / OUT: 5546-0437 Total Minutes, Physical Therapy: 43 Billing Code: mod complexity eval Katalina Arias, PT Pager: [phone] Physical Therapy Inpatient Rehabilitation Department * Radha [...] Ophthalmic Prep) 5 % ophthalmic solution ??? BMznylqwmix-CJYMJDSaunq-bkdIVLrrh-ketorolac (BABAR) (2.46 mg-0.005 mg-0.0008 mg-0.3 mg/mL) salome-articular [...] Department Center 01/15/2023 9:00 AM LABORATORY, TECH [facility] INF 3K [facility] 01/15/2023 10:00 AM Faith Caba MD [facility] HEM ONC [facility] 01/15/2023 11:00 AM ACCESS ROOM [facility] INF 3K [facility] 01/24/2023 10:00 AM [facility] DX ROOM 1 MH Xray [facility] Rad 01/24/2023 10:40 AM Julio Melissa MD [facility] ORTH 3C [facility] Associated attestation - Julio Melissa MD - 12/20/2022 8:22 AM EDT Patient seen and examined on rounds. Agree with resident note. In brief, patient doing well this morning. Patient notes that he is urinated. His pain is controlled with pain medication. He is neurovascular intact. Likely discharge home today. Julio Melissa M.D. [place] Department of Orthopaedics * Martín Ramos RN [...] Ophthalmic Prep) 5 % ophthalmic solution ??? IVpdoawooig-JVYIOGUdpcc-jtpUQViod-ketorolac (BABAR) (2.46 mg-0.005 mg-0.0008 mg-0.3 mg/mL) salome-articular [...] Department Center 01/15/2023 9:00 AM LABORATORY, TECH [facility] INF 3K [facility] 01/15/2023 10:00 AM Faith Caba MD [facility] HEM ONC [facility] 01/15/2023 11:00 AM ACCESS ROOM [facility] INF 3K [facility] 01/24/2023 10:00 AM [facility] DX ROOM 1 MH Xray [facility] Rad 01/24/2023 10:40 AM Julio Melissa MD [facility] ORTH [address] [place] [address] * Taylor Brown RN - 12/19/2022 12:37 [...] referrals are placed. Patient requests referral to: [facility] ([place]) [address], [address] [place] [address] [facility] [place] [address] [place] [address] Expected date of discharge: 12/20 Referral routed to the Litigation Legal Secretary for matching with agency/vendor and to provide any required information. * Initial Assessments - Dev Alejandre, OT - 12/20/2022 9:28 AM EDT Occupational Therapy Evaluation Patient profile: Chidi Carbone is a 77 y.o. male admitted on 12/19/2022 for Right Total Knee Arthroplasty. Past Medical History: Diagnosis Date ??? HTN (hypertension) ??? Insomnia ??? GIRISH (obstructive sleep apnea) ??? Prostate cancer Past Surgical History: Procedure Laterality Date ??? IR ARTERIOGRAM MESENTERIC 08/15/2022 IR Arteriogram Mesenteric 08/15/2022 Santo Duarte MD [facility] INTERVENTIONL RAD ? ? PRO ARTHROPLASTY KNEE CONDYLE & PLATEAU MEDIAL & LAT COMPARTMENTS Right 12/19/2022 TOTAL KNEE ARTHROPLASTY (WRVU 19.6) performed by Julio Melissa MD at [facility] MAIN OR ??? PRO COLONOSCOPY, DIAGNOSTIC N/A 04/19/2015 COLONOSCOPY, DIAGNOSTIC performed by Nino Rocha MD at [facility] ENDOSCOPY ??? PRO COLONOSCOPY, DIAGNOSTIC N/A 08/16/2022 COLONOSCOPY, DIAGNOSTIC performed by Bubba Wallace MD at [facility] ENDOSCOPY ??? PRO COLONOSCOPY, FLEX, W/CONTROL, BLEEDING 08/16/2022 COLONOSCOPY; W CONTROL OF BLEEDING, ANY METHOD performed by Bubba Wallace MD at [facility] ENDOSCOPY ??? PRO DRESSING CHANGE UNDER ANESTHESIA N/A 06/04/2019 DRESSING CHANGE (FOR OTHER THAN RAUSCH) UNDER ANES. (WRVU 0.86) performed by Rodri Villa MD at [facility] MAIN OR ? ? PRO EDG FLEXIBLE TRANSORAL ABLATE TUMOR POLYP/LESION W/DILATION & WIRE N/A 04/19/2015 EGD, TRANSORAL; WITH ABLATION OF TUMOR(S), POLYP(S), OR OTHER LESION(S) performed by Nino Rocha MD at [facility] ENDOSCOPY ??? PRO LAP, ESOPHAGOGAST FUNDOPLASTY 03/08/2014 LAPAROSCOPIC MODESTO FUNDOPLASTY performed by Surendra Garcia MD at [facility] MAIN OR ??? PRO PREP SITE TRUNK/ARM/LEG 1ST 100 SQ CM/1PCT Right 06/04/2019 SURGICAL PREP/CREATION RECIPIENT SITE, FIRST 100 SQ CM, LEGS (WRVU 3.65) performed by Rodri Villa MD at [facility] MAIN OR ? ? PRO SPLIT GRFT TRUNK, ARM, LEG <100SQCM Right 06/04/2019 SPLIT THICK SKIN GRAFT,100 SQ CM OR LESS, LEGS (WRVU 9.9) performed by Rodri Villa MD at [facility] MAIN OR ??? PRO UPPER GI ENDOSCOPY, BIOPSY 11/27/2011 UPPER GASTROINTESTINAL ENDOSCOPY,WITH BIOPSY SINGLE OR MULTIPLE performed by NINO ROCHA I at [facility] ENDOSCOPY ??? PRO UPPER GI ENDOSCOPY, BIOPSY 04/22/2012 UPPER GASTROINTESTINAL ENDOSCOPY,WITH BIOPSY SINGLE OR MULTIPLE performed by NINO ROCHA I at [facility] ENDOSCOPY ??? PRO UPPER GI ENDOSCOPY, BIOPSY 05/12/2013 UPPER GASTROINTESTINAL ENDOSCOPY,WITH BIOPSY SINGLE OR MULTIPLE performed by Nino Rocha MD at [facility] ENDOSCOPY ??? PRO UPPER GI ENDOSCOPY, BIOPSY 10/20/2013 UPPER GASTROINTESTINAL ENDOSCOPY,WITH BIOPSY SINGLE OR MULTIPLE performed by Nino Rocha MD at [facility] ENDOSCOPY ??? PRO UPPER GI ENDOSCOPY, BIOPSY N/A 06/29/2015 EGD WITH BIOPSY performed by Nino Rocha MD at [facility] ENDOSCOPY ??? PRO UPPER GI ENDOSCOPY, DIAGNOSTIC N/A 08/15/2022 EGD, UPPER GI ENDOSCOPY performed by Bubba Wallace MD at [facility] ENDOSCOPY ??? UPPER GI ENDOSCOPY, EXAM 02/13/2011 UPPER GI ENDOSCOPY performed by NINO ROCHA I at [facility] ENDOSCOPY ??? UPPER GI ENDOSCOPY, EXAM 05/12/2013 UPPER GI ENDOSCOPY performed by Nino Rocha MD at [facility] ENDOSCOPY ??? UPPER GI ENDOSCOPY, EXAM N/A 04/19/2015 UPPER GI ENDOSCOPY performed by Nino Rocha MD at [facility] ENDOSCOPY ??? UPPER GI ENDOSCOPY, TUMOR ABLATN 04/22/2012 ENDOSCOPY, UPPER GI, W\ABLATION TUMOR\POLYP\LESION performed by NINO ROCHA I at [facility] ENDOSCOPY Social History: Patient lives w/ his who he reports is an unreliable caregiver; however, his dter and then sister will be staying with him during the early stages of recovery. Home Setup: 7 SWATHI w/ a rail, once in the pt is all set up on the first level. Walk-in shower up stairs w/ shower seat. 1/ bath on 1st floor. DME: FWW, (dter plans to get a commode), cane Baseline ADL/Mobility: Pt independent ADLs/IADLs, uses a cane for long distances/out of the home. 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 Precautions/Special Considerations: WBAT [...] corrective lenses for distance ?? 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 Pt [...] Total Minutes, Occupational Therapy: 42 (eval + hi, [phone]) OT Evaluation Code Rationale: ?? Diagnosis & [...] and measurable assessment of functional outcome. Pager: [phone] Dev Alejandre OT 12/20/2022 Occupational Therapy Rehabilitation Department * Op Note - Julio Melissa MD - 12/19/2022 10:40 AM EDT [facility] Operative Note Patient Name: Chidi Carbone : [id number] MR#: [id number] Case Date: 12/19/2022 Surgeon: Surgeon(s) and Role: [...] then sized for a size 3 patella. Rosalie was held in place and peg holes [...] (Latest Contact Info) Description 09/29/2024 4:30 PM [facility] Hospital Encounter [place] [address] Lizet Wilkes MD [facility] [place] [address] 09/29/2024 4:30 PM EST - 09/29/2024 5:00 PM EST Surgery [place] [address] Lizet Wilkes MD [facility] [place] [address] EGD, UPPER GI ENDOSCOPY (WRVU 2.09) 11/09/2024 10:00 AM EST Laboratory Appointment Lab at [facility] Hematology Oncology [address] [place] [phone] 11/09/2024 11:00 AM EST Office Visit Hematology [place] [address] Faith Caba MD [facility] [address] [place] [address] 11/09/2024 12:00 PM EST Appointment Hematology [place] [address] Scheduled Procedures Name Priority Associated Diagnoses Date/Ti [...] Understanding Patient Facing Action Plan Curly Nicolas, [facility] Note: The patient? s goal [...] Condyle & Plateau Medial & Lat Compartments (28591) 12/19/2022 10:22 AM EDT Primary osteoarthritis of [...] 4:39 AM EDT) Neutrophil % 71.8 % [facility] LABORATORY Neutrophil Absolute 5.07 1.70 - 6.10 x10(3)/[facility] LABORATORY Lymph % 12.5 % [facility] LAB[facility] Lymphocytes Abs 0.9 0.9 - 3.2 x10(3)/[facility] LABORATORY Monocyte % 13.3 % [facility] LABORAT[facility] Monocyte Abs 0.9 0.3 - 0.9 x10(3)/[facility] LABORATORY Eos % 1.8 % [facility] LABORATORY Eosinophils Abs 0.1 0.0 - 0.4 x10(3)/[facility] LABORATORY Basophil % 0.3 % [facility] LABORAT[facility] Baso Absolute 0.0 0.0 - 0.1 x10(3)/[facility] LABORATORY Immature Gran % 0.30 % [facility]ORY Comment: Immature granulocytes(IG's)percentage and absolute count will include metamyelocytes, myelocytes, and promyelocytes. Blood smears from CBCs yielding IG's will be scanned manually for concordance. If this scan disagrees with the automated IG or if promyelocytes are noted, a manual differential will be performed. Immature Gran Absolute 0.02 0.00 - 0.04 x10(3)/mcL [facility] LABORATORY Blood 12/20/2022 4:39 AM EDT 12/20/2022 5:17 AM EDT Narrative Resulting Agency Comment Spec In Lab Radha Owen MD HEMATOLOGY ORDERABLE S [facility] [place] [address] * (ABNORMAL) Hemogram (12/20/2022 4:39 AM EDT) White Blood Cell 7.1 4.0 - 9.5 x10(3)/mc L [facility] LABORATORY Red Blood Cell 3.63(L) 4.58 - 5.54 x10(6)/mc L [facility]ORY Hemoglobin 9.6(L) 13.7 - 16.5 g/dL [facility] LABORATORY Hematocrit 30.0(L) 40.5 - 48.5 % [facility] Mean Cell Volume 82.6(L) 82.9 - 93.1 fL [facility] Mean Cell Hemoglobin 26.4(L) 27.5 - 32.1 pg [facility] Mean Cell Hemoglobin Concentration 32.0 32.0 - 35.7 g/dL [facility] Platelet 202 145 - 357 x10(3)/mc L [facility] RDW Standard Deviation 63.6(H) 36.0 - 45.0 fL [facility] RDW coefficient of variation 21.6(H) 11.4 - 13.8 % [facility] Mean Platelet Volume 9.7 7.6 - 12.9 fL [facility]AT[facility] NRBC% auto 0.0 % [facility] LAB[facility] NRBC Absolute 0.000 0.000 - 0.000 x10(3)/mc L [facility] Blood 12/20/2022 4:39 AM EDT 12/20/2022 5:17 AM EDT Narrative Resulting Agency Comment Spec In Lab Radha Owen MD HEMATOLOGY ORDERABLE S [facility] LABORATORY [address] [place] [address] * (ABNORMAL) Basic Metabolic Panel (non-fasting) (12/20/2022 4:39 AM EDT) Glucose 121 65 - 199 mg/dL [facility] Comment:Diabetes: >=200 mg/d L plus symptoms Blood Urea Nitrogen 20 10 - 20 mg/dL [facility] Creatinine 0.85 0.80 - 1.50 mg/dL [facility] Sodium 141 135 - 145 mmol/L [facility] Potassium 3.9 3.5 - 5.0 mmol/L [facility] Comment: Please note: ??Patients with WBC >100,000 may have falsely elevated Potassium levels. ??For accurate Potassium quantification in these patients send serum separator tube (gold top) for subsequent determinations. ??Contact the Clinical Chemistry Laboratory if there are any questions. Chloride 109(H) 98 - 107 mmol/L [facility] Carbon Dioxide 23 22 - 31 mmol/L [facility] Anion Gap 9 5 - 15 mmol/L [facility] Calcium 8.4(L) 8.5 - 10.5 mg/dL [facility] Est Glomerular Filtration Rate 89 >=60 mL/min/1. 73 m?? [facility] Comment: This patient's estimated GFR [...] In Lab Julio Melissa MD CHEMISTRY ORDERABLES [facility] [place] [address] documented in this encounter Visit Diagnoses Diagnosis 12/19/22 S/P right total knee arthroplasty (Dr. Melissa)- Primary Primary osteoarthritis of both knees Primary [...] Until Yudi 12/20/22 at 0748, Pain, Routine Given 12/20/2022 5:05 [...] Given 12/19/2022 8:15 PM EDT 40 mg predniSONE (Deltasone) tablet 5 mg 5 mg, [...] Given 12/20/2022 9:02 AM EDT 10 mg senna-docusate (Pericolace) 8.6-50 mg per tablet 2 [...] Lydia Villarreal RN - Comment: recieved from [employer]) pantoprazole EC (Protonix) tablet 40 mg 40 mg, Oral, 2 TIMES DAILY, First dose on Sat12/19/22 at 2100, Until Discontinued, DO NOT CRUSH OR OPEN, Routine 2014 (Given - Provider: Jane Gonzalez LPN) 0901 (Given - Provider: Uli Ríos, NUZHAT) predniSONE (Deltasone) tablet 5 mg 5 mg, [...] Procedure) 0921 (New Bag - Provider: Lucie Roberto RN)1404 (New Bag - Provider: Martín Kincaid RN)1619 [...] PRN, Starting on Sat12/19/22 at 1510, Until 12/20/22 at 1649, Constipation, DO NOT CRUSH [...] dose, Starting on Sat12/19/22 at 1510, Until Sat12/20/22 at 1649, for discomfort with PIV insertion, Recovery (Recovery-Hospital Unit), Routine oxyCODONE (Roxicodone) tablet 5 mg (CANCELED) 5 mg, Oral, EVERY 6 HOURS PRN, Starting on Sat12/19/22 at 2111, Until Sat12/20/22 at 0748, Pain, Routine 2152 (Given - [...] PRN, Starting on Sat12/19/22 at 1052, Until Yudi 12/20/22 at 1649, Intra-Operative (Intra-Procedure), Routine 1052 (Given - Provider: Julio Melissa MD - Comment: mixed with 500ml 0.9% NACL) FKhplvhfcib-OUASUNBgtle-ghbM IDine-ketorolac (BABAR) (2.46 mg-0.005 mg-0.0008 mg-0.3 mg/mL) [...] at 1510, Until Yudi 12/20/22 at 1649, flush, Flush pertains to all indwelling lines. Flush per protocol found in the job aid using the link provided on this medication record., Recovery (Recovery-Hospital Unit), Routine traMADoL (Ultram) tablet 25 mg (CANCELED)(Linked Group 2) 25 mg, Oral, EVERY 6 HOURS PRN, Starting on Sat12/19/22 at 1510, Until Sat12/19/22 at 2111, Pain, mild pain (1-3), Routine 2013 (Given [...] on Sat12/19/22 at 1510, Until Sat12/19/22 at 211, Pain, mild pain (1-3), Routine Or traMADoL (Ultram) tablet 50 mg (CANCELED) 50 mg, Oral, EVERY 6 HOURS PRN, Starting on Sat12/19/22 at 1510, Until Sat12/19/22 at 2112, Pain, moderate to severe pain (4-10), Routine documented in this encounter Care Teams Respiratory Therapy Aide Relationship Specialty Start Date End Date Kennedi Shaver MD [facility] [address] [place] [address] PCP - General Family Medicine 08/02/20 06/24/24 documented as of this encounter
--- OUTSIDE RECORDS SUMMARY | 2024-09-11 15:21 | XMS_ITS | Encounter Summary ---
[place] [address] Care Team Providers Care Warehouse Receiver Name Role Phone Kennedi Shaver MD Primary Care Provider Encounter Details Date Type Department Care Team (Late st Contact Info) Description 11/26/2022 [place] [address] Julio Melissa MD Social History Tobacco Use Types Packs/Day Years [...] encounter Miscellaneous Notes * Telephone Encounter - Nury Sánchez - 11/26/2022 2:43 PM EST Unable to return pts call the mail box is full documented in this encounter Plan of Treatment Upcoming Encounters Date Type Department Care Team (Latest Contact Info) Description 09/29/2024 4:30 PM EST Hospital [place] [address] Lizet Wilkes MD [facility] [place] [address] 09/29/2024 4:30 PM EST - 09/29/2024 5:00 PM EST Surgery Gastroenterology at [place] [phone] Lizet Wilkes MD [facility] [place] [address] EGD, UPPER GI ENDOSCOPY (WRVU 2.09) 11/09/2024 10:00 AM EST Laboratory Appointment Lab at [facility] Hematology Oncology [address] [place], [place] [phone] 11/09/2024 11:00 AM EST Office Visit [place] [phone] Faith Caba MD [facility] DR HEMATOLOGY [place] [address] 11/09/2024 12:00 PM EST Appointment Hematology and Oncology at [place] [phone] Scheduled Procedures Name Priority Associated Diagnoses Date/Ti me EGD, UPPER GI ENDOSCOPY (WRVU 2.09) Gastroesophageal reflux disease with esophagitis, unspecified whether hemorrhage 09/29/2024 4:30 PM EST documented as of this encounter Goals Goal Patient Goal Type Associated Problems Recent Progress Patient-Stated? Author [facility] Medication Compliance and Understanding Patient Facing Action Plan Curly Nicolas, [facility] Note: The patient? s goal is to continue positive results of oral chemotherapy by maintaining improved labs PSA or stable scans in clinic for the upcoming year. documented as of this encounter Visit Diagnoses Not on filedocumented in this encounter Care Teams Warehouse Receiver Relationship Specialty Start Date End Date Kennedi Shaver MD [address] [place] [address] PCP - General Family Medicine 08/02/20 06/24/24 documented as of this encounter
--- OUTSIDE RECORDS SUMMARY | 2024-09-11 15:21 | XMS_ITS | Encounter Summary ---
Author Organization [facility] [place] [address] Care Team Providers Care Canal Equipment Mechanic Name Role Phone Kennedi Shaver MD Primary Care Provider [phone] Encounter Details Date Type Department Care Team (Latest Contact Info) Description 11/12/2022 Travel Social History Tobacco Use Types Packs/Day [...] 4:30 PM EST Hospital En[place] [address] Lizet Wilkes MD [facility] [place] [address] 09/29/2024 4:30 PM EST - 09/29/2024 5:00 PM EST [place] [address] Lizet Wilkes MD [facility] [place] [address] EGD, UPPER GI ENDOSCOPY (WRVU 2.09) 11/09/2024 10:00 AM EST Laboratory Appointment Lab at [facility] Hematology Oncology [address] [place] [address] 11/09/2024 11:00 AM EST Office Visit Hematology and Oncology at [place] [address] Faith Caba MD [facility] DR HEMATOLOGY [place] [address] 11/09/2024 12:00 PM EST Appointment Hematology and Oncology at [place] [address] Scheduled Procedures Name Priority Associated Diagnoses Date/Ti me EGD, UPPER GI ENDOSCOPY (WRVU 2.09) Gastroesophageal reflux disease with esophagitis, unspecified whether hemorrhage 09/29/2024 4:30 PM EST documented as of this encounter Goals Goal Patient Goal Type Associated Problems Recent Progress Patient-Stated? Author [facility] Medication Compliance and Understanding Patient Facing Action Plan Curly Nicolas, [facility] Note: The patient? s goal is to continue positive results of oral chemotherapy by maintaining improved labs PSA or stable scans in clinic for the upcoming year. documented as of this encounter Visit Diagnoses Not on filedocumented in this encounter Care Teams Canal Equipment Mechanic Relationship Specialty Start Date End Date Kennedi Shaver MD [facility] [address] [place] [address] PCP - General Family Medicine 08/02/20 06/24/24 documented as of this encounter
--- OUTSIDE RECORDS SUMMARY | 2024-09-11 15:21 | XMS_ITS | Encounter Summary ---
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 Procedures NM Bone Scan Whole Body Wyatt Barriga PA [facility] DR [place] [address] [place] [address] Referral ID Status Reason Start Date Expiration Date V isits Requested Visits Authorized [id number] Closed Specialty Service Requested 10/27/2022 04/26/2024 1 1 Encounter Details Date Type Department Care Team (Latest Contact Info) Description 11/12/2022 12:47 PM EST - 11/12/2022 11:59 PM EST Hospital [place] [address] Faith Caba MD [facility] [place] [address] Discharge Disposition: Home Social History Tobacco Use [...] daily as needed for Constipation. 12/20/2022 01/24/2023 ferrous sulfate 325 mg (65 mg iron) Tablet Take 325 mg by mouth every other day. 12/20/2022 abiraterone (Zytiga) 500 mg TabletIndications:Neopl asm of prostate, 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 Take 2 tablets by mouth daily. Brand name only. 60 tablet 11 09/11/2022 09/20/2023 predniSONE (Deltasone) 5 mg Tablet Take 1 tablet by mouth daily. 30 tablet 11 08/17/2022 11/14/2022 documented as of this encounter Plan of Treatment Upcoming Encounters Date Type Department Care Team (Latest Contact Info) Description 09/29/2024 4:30 PM EST Hospital Encounter [place] [address] Lizet Wilkes MD [facility] [place] [address] 09/29/2024 4:30 PM EST - 09/29/2024 5:00 PM EST [place] [address] Lizet Wilkes MD [facility] [place] [address] EGD, UPPER GI ENDOSCOPY (WRVU 2.09) 11/09/2024 10:00 AM EST Laboratory Appointment Lab at [facility] Hematology Oncology [address] [place] [phone] 11/09/2024 11:00 AM EST Office Visit Hematology [place] [address] Faith Caba MD [facility] DR [place]AT[place] [address] 11/09/2024 12:00 PM EST Appointment Hematology and Oncology at [facility] [place] [address] Scheduled Procedures Name Priority Associated Diagnoses Date/Ti me EGD, UPPER GI ENDOSCOPY (WRVU 2.09) Gastroesophageal reflux disease with esophagitis, unspecified whether hemorrhage 09/29/2024 4:30 PM EST documented as of this encounter Goals Goal Patient Goal Type Associated Problems Recent Progress Patient-Stated? Author [facility] Medication Compliance and Understanding Patient Facing Action Plan Curly Nicolas, [facility] Note: The patient? s goal is to continue positive results of oral chemotherapy by maintaining improved labs PSA or stable scans in clinic for the upcoming year. 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 No new sites of disease. I have personally reviewed the image(s) and the resident's interpretation and agree with the findings, German Hoffman MD at 11/14/2022 10:23 AM Thank you for letting us participate in the care of this patient. ??If you are a health care provider and have any questions regarding this report, please contact the number below. ??For patients who have questions please contact the health human services care specialist that requested your imaging first. ? Electronically signed by: German Hoffman MD, [facility] ([phone]), at 11/14/2022 10:23 AM Narrative 11/14/2022 10:23 AM EST EXAMINATION: NM BONE SCAN WHOLE BODY CLINICAL HISTORY: Prostate cancer bone pain TECHNIQUE: Three hours following the intravenous administration of 24.5 mCi of technetium-99m MDP, planar images of the skeleton in anterior and posterior projection were obtained. COMPARISON: Bone scan 02/26/2017, CT abdomen and pelvis 08/15/2022 FINDINGS: Abnormal foci of MDP uptake within the superolateral aspect of the right orbit and distal right femoral metadiaphysis, have almost completely resolved. MDP uptake within the bilateral medial knee compartments consistent with benign arthropathy. Degenerative disease is present at the left side of L4-5. Normal renally excreted activity in the kidneys and in the urinary bladder. Procedure Note German Hoffman MD - 11/14/2022 EXAMINATION: NM BONE SCAN WHOLE BODY CLINICAL HISTORY: Prostate cancer bone pain TECHNIQUE: Three hours following the intravenous administration of 24.5mCi of technetium-99m MDP, planar images of the skeleton in anterior andposterior projection were obtained. COMPARISON: Bone scan 02/26/2017, CT abdomen and pelvis 08/15/2022 FINDINGS: Abnormal foci of MDP uptake within the superolateral aspect of the rightorbit and distal right femoral metadiaphysis, have almost completely resolved. MDP uptake within the bilateral medial knee compartments consistent withbenign arthropathy. Degenerative disease is present at the left side of L4-5. Normal renally excreted activity in the kidneys and in the urinarybladder. IMPRESSION Near complete resolution of MDP avid osseous lesions in the superolateralaspect of the right orbit and right distal femoral metadiaphysis. No new sites of disease. I have personally reviewed the image(s) and the resident's interpretationand agree with the findings, German Hoffman MD at 11/14/2022 10:23 AM Thank you for letting us participate in the care of this patient. If youare a health care provider and have any questions regarding this report,please contact the number below. For patients who have questions please contactthe health human services care specialist that requested your imaging first. Electronically signed by: German Hoffman MD, [facility]([phone]), at 11/14/2022 10:23 AM Faith Caba MD IMG NM ORDERABLES documented in this encounter Visit Diagnoses Not on filedocumented in this encounter Care Teams Celery Stripper Relationship Specialty Start Date End Date Kennedi Shaver MD [address] [place] [address] PCP - General Family Medicine 08/02/20 06/24/24 documented as of this encounter
--- OUTSIDE RECORDS SUMMARY | 2024-09-11 15:21 | XMS_ITS | Encounter Summary ---
Author Organization [facility] [place] [address] Care Team Providers Care Infantry Officer Name Role Phone Kennedi Shaver MD Primary Care Provider [phone] Encounter Details Date Type Department Care Team (Late st Contact Info) Description 11/20/2022 Orders Only [place] [phone] Bubba Wallace MD [facility] [place] [address] Gastrointestinal hemorrhage, unspecified gastrointestinal hemorrhage type Social History Tobacco Use Types Packs/Day [...] (Latest Contact Info) Description 09/29/2024 4:30 PM [facility] Hospital Encounter [place] [phone] Lizet Wilkes MD [facility] [place] [address] 09/29/2024 4:30 PM EST - 09/29/2024 5:00 PM EST Surgery Gastroenterology at [place] [phone] Lizet Wilkes MD [facility] [address] EGD, UPPER GI ENDOSCOPY (WRVU 2.09) 11/09/2024 10:00 AM EST Laboratory Appointment Lab at [facility] Hematology Oncology [address] [place], [place] [phone] 11/09/2024 11:00 AM EST Office Visit Hematology and Oncology at [place] [phone] Faith Caba MD [facility] DR [place] [address] 11/09/2024 12:00 PM EST Appointment Hematology [place] [address] Scheduled Procedures Name Priority Associated Diagnoses Date/Ti me EGD, UPPER GI ENDOSCOPY (WRVU 2.09) Gastroesophageal reflux disease with esophagitis, unspecified whether hemorrhage 09/29/2024 4:30 PM EST documented as of this encounter Goals Goal Patient Goal Type Associated Problems Recent Progress Patient-Stated? Author [facility] Medication Compliance and Understanding Patient Facing Action Plan Curly Nicolas, [facility] Note: The patient? s goal is to continue positive results of oral chemotherapy by maintaining improved labs PSA or stable scans in clinic for the upcoming year. documented as of this encounter Visit Diagnoses Diagnosis Gastrointestinal hemorrhage, unspecified gastrointestinal hemorrhage type Gastroesophageal reflux disease with esophagitis, unspecified whether hemorrhage documented in this encounter Care Teams Infantry Officer Relationship Specialty Start Date End Date Kennedi Shaver MD [address] [place] [address] PCP - General Family Medicine 08/02/20 06/24/24 documented as of this encounter
--- OUTSIDE RECORDS SUMMARY | 2024-09-11 15:21 | XMS_ITS | Encounter Summary ---
[place] [address] Care Team Providers Care Dyehouse Worker Name Role Phone Kennedi Shavre MD Primary Care Provider [phone] Reason for Visit * Reason Comments Medication Refill Encounter Details Date Type Department Care Team (Late st Contact Info) Description 12/14/2022 Specialty [place] [address] Katalina Barney RPH Social History Tobacco Use Types Packs/Day Years [...] Progress Notes * Katalina Barney RPH - 12/14/2022 8:53 AM EDT Clinical Management Plan: Refill Specialty Pharmacy Consultation; Katalina Barney RPH Comprehensive Medication Management (CMM) Chidi Carbone Mr. Chidi Carbone is a 77 y.o. [...] Known Allergies Medication Reconciliation Discrepancies (compared to [facility] med list) No Specialty Pharmacy Refill Questionnaire 12/14/2022 Refill Questionnaire What is the name of the specialty medication you are refilling? Zytiga Are you taking any new medications? No Any new medical condition? No Any new allergies? No Any new side effects that are bothersome? No What date will you need this fill by? 12/22/2022 Multiple values from one day are sorted in reverse-chronological order Adherence: Any missed doses? No Patient understands no changes to current drug regimen were made. Katalina Barney RPH 12/14/22 11:33 AM documented in this encounter Plan of Treatment Upcoming Encounters Date Type Department Care Team (Latest Contact Info) Description 09/29/2024 4:30 PM EST Hospital Encounter [place] [address] Lizet Wilkes MD [facility] [place] [address] 09/29/2024 4:30 PM EST - 09/29/2024 5:00 PM EST [place] [address] Lizet Wilkes MD [facility] [place] [address] EGD, UPPER GI ENDOSCOPY (WRVU 2.09) 11/09/2024 10:00 AM EST Laboratory Appointment Lab at [facility] [place] Oncology [address] [place] [phone] 11/09/2024 11:00 AM EST Office Visit Hematology and Oncology at [place] [phone] Faith Caba MD [facility] DR [place] [address] 11/09/2024 12:00 PM EST Appointment Hematology [place] [address] Scheduled Procedures Name Priority Associated Diagnoses Date/Ti me EGD, UPPER GI ENDOSCOPY (WRVU 2.09) Gastroesophageal reflux disease with esophagitis, unspecified whether hemorrhage 09/29/2024 4:30 PM EST documented as of this encounter Goals Goal Patient Goal Type Associated Problems Recent Progress Patient-Stated? Author [facility] Medication Compliance and Understanding Patient Facing Action Plan Curly Nicolas, [facility] Note: The patient? s goal is to continue positive results of oral chemotherapy by maintaining improved labs PSA or stable scans in clinic for the upcoming year. documented as of this encounter Visit Diagnoses Not on filedocumented in this encounter Care Teams Dyehouse Worker Relationship Specialty Start Date End Date Kennedi Shaver MD [facility] [place] [address] PCP - General Family Medicine 08/02/20 06/24/24 documented as of this encounter
--- OUTSIDE RECORDS SUMMARY | 2024-09-11 15:21 | XMS_ITS | Encounter Summary ---
[place] [address] Care Team Providers Care Engrosser Name Role Phone Kennedi Shaver MD Primary Care Provider [phone] Reason for Visit * Reason Comments Medication Refill Encounter Details Date Type Department Care Team (Late st Contact Info) Description 11/13/2022 Specialty [place] [address] Katalina Barney RPH Social History Tobacco Use [...] Progress Notes * Katalina Barney RPH - 11/13/2022 10:05 AM EST Clinical Management Plan: Refill Specialty Pharmacy Consultation; Katalina Barney RPH Comprehensive Medication Management (CMM) Chidi Jessica Raf Mr. Chidi Carbone is a 76 y.o. (1945) male who was contacted in regard to a specialty medication refill reminder. Contact made with patient regarding Abiraterone. A review of the medication therapy was performed. The medication was refilled as scheduled, and all medication related questionsand concerns were addressed. The specialty pharmacy staff will follow up with the patient 5-7 days prior to next refill. Was a change made to the Care Plan: No Allergies and Drug intolerance: No Known Allergies Medication Reconciliation Discrepancies (compared to [facility] med list) No Specialty Pharmacy Refill Questionnaire Refill Questionnaire 11/14/2022 What is the name of the specialty medication you are refilling? Zytiga Are you taking any new medications? No Any new medical condition? No Any new allergies? No Any new side effects that are bothersome? No What date will you need this fill by? 11/21/2022 Adherence: Any missed doses? No Patient understands no changes to current drug regimen were made. Katalina Barney RPH 11/14/22 10:45 AM documented in this encounter Plan of Treatment Upcoming Encounters Date Type Department Care Team (Latest Contact Info) Description 09/29/2024 4:30 PM EST Hospital Encounter [place] [address] Lizet Wilkes MD [facility] [place] [address] 09/29/2024 4:30 PM EST - 09/29/2024 5:00 PM EST Surgery [place] [address] Lizet Wilkes MD [facility] [place] [address] EGD, UPPER GI ENDOSCOPY (WRVU 2.09) 11/09/2024 10:00 AM EST Laboratory Appointment Lab [place] [facility] [place] On[place] [address] [place] [phone] 11/09/2024 11:00 AM EST Office Visit Hematology [place] [address] Faith Caba MD [facility] [address] [place] [address] 11/09/2024 12:00 PM EST Appointment Hematology [place] [address] Scheduled Procedures Name Priority Associated Diagnoses Date/Ti me EGD, UPPER GI ENDOSCOPY (WRVU 2.09) Gastroesophageal reflux disease with esophagitis, unspecified whether hemorrhage 09/29/2024 4:30 PM EST documented as of this encounter Goals Goal Patient Goal Type Associated Problems Recent Progress Patient-Stated? Author [facility] Medication Compliance and Understanding Patient Facing Action Plan Curly Nicolas, [facility] Note: The patient? s goal is to continue positive results of oral chemotherapy by maintaining improved labs PSA or stable scans in clinic for the upcoming year. documented as of this encounter Visit Diagnoses Not on filedocumented in this encounter Care Teams Engrosser Relationship Specialty Start Date End Date Kennedi Shaver MD [facility] [address] [facility] [address] [place] [address] PCP - General Family Medicine 08/02/20 06/24/24 documented as of this encounter
--- OUTSIDE RECORDS SUMMARY | 2024-09-11 15:21 | XMS_ITS | Encounter Summary ---
Author Organization [facility] [place] [place] [address] Care Team Providers Care Dump Operator Name Role Phone Kennedi Shaver MD Primary Care Provider Encounter Details Date Type Department Care Team (Late st Contact Info) Description 11/14/2022 Refill [place] [phone] Wyatt Barriga PA [facility] DR HEMATOLOGY [place] [address] Social History Tobacco Use Types Packs/Day Years [...] (Latest Contact Info) Description 09/29/2024 4:30 PM [facility] Hospital [place] [phone] Lizet Wilkes MD [facility] [place] [address] 09/29/2024 4:30 PM EST - 09/29/2024 5:00 PM EST Surgery Gastroenterology at [place] [phone] Lizet Wilkes MD [facility] [place] [address] EGD, UPPER GI ENDOSCOPY (WRVU 2.09) 11/09/2024 10:00 AM EST Laboratory Appointment Lab at [facility] Hematology Oncology [address] [place] [address] 11/09/2024 11:00 AM EST Office Visit Hematology and Oncology at [place] [phone] Faith Caba MD [facility] DR HEMATOLOGY [place] [address] 11/09/2024 12:00 PM EST Appointment Hematology [place] [address] Scheduled Procedures Name Priority Associated Diagnoses Date/Ti me EGD, UPPER GI ENDOSCOPY (WRVU 2.09) Gastroesophageal reflux disease with esophagitis, unspecified whether hemorrhage 09/29/2024 4:30 PM EST documented as of this encounter Goals Goal Patient Goal Type Associated Problems Recent Progress Patient-Stated? Author [facility] Medication Compliance and Understanding Patient Facing Action Plan Curly iNcolas, [facility] Note: The patient? s goal is to continue positive results of oral chemotherapy by maintaining improved labs PSA or stable scans in clinic for the upcoming year. documented as of this encounter Visit Diagnoses Not on filedocumented in this encounter Care Teams Dump Operator Relationship Specialty Start Date End Date Kennedi Shaver MD [facility] [address] [place] [address] PCP - General Family Medicine 08/02/20 06/24/24 documented as of this encounter
--- OUTSIDE RECORDS SUMMARY | 2024-09-11 15:21 | XMS_ITS | Encounter Summary ---
Author Organization Formerly [facility] [place] [address] Care Team Providers Care Ms Sql Developer Name Role Phone Kennedi Shaver MD Primary Care Provider [phone] Encounter Details Date Type Department Care Team (Late st Contact Info) Description 01/22/2023 Orders [place] [address] Julio Melissa MD S/P total knee arthroplasty, right Social History Tobacco Use Types Packs/Day Years Used Date Smoking Tobacco: Former Cigarettes 1977 Smokeless Tobacco: Never Alcohol Use Standard Drinks/Week Comments Yes 14 (1 standard drink = 0.6 oz pu re alcohol) [facility] Inpatient Questions Answer Date Recorded Does [...] 4:30 PM EST Hospital Encounter Gastroenterology at [place] [phone] Lizet Wilkes MD [facility] [address] 09/29/2024 4:30 PM EST - 09/29/2024 5:00 PM EST Surgery Gastroenterology at [place] [phone] Lizet Wilkes MD [facility] [place] [address] EGD, UPPER GI ENDOSCOPY (WRVU 2.09) 11/09/2024 10:00 AM EST Laboratory Appointment Lab at [facility] Hematology Oncology [address] [place] [phone] 11/09/2024 11:00 AM EST Office Visit Hematology and Oncology at [place] [phone] Faith Caba MD [facility] [address] [place] [address] 11/09/2024 12:00 PM EST Appointment Hematology and Oncology at [place] [phone] Scheduled Procedures Name Priority Associated Diagnoses Date/Ti sd EGD, UPPER GI ENDOSCOPY (WRVU 2.09) Gastroesophageal reflux disease with esophagitis, unspecified whether hemorrhage 09/29/2024 4:30 PM EST documented as of this encounter Goals Goal Patient Goal Type Associated Problems Recent Progress Patient-Stated? Author DH Home Medication Compliance and Understanding Patient Facing Action Plan Curly Nicolas, [facility] Note: The patient? s goal is to continue positive results of oral chemotherapy by maintaining improved labs PSA or stable scans in clinic for the upcoming year. documented as of this encounter Results * XR Knee Standing Alignment AP Lat [place] Right (01/24/2023 10:46 AM EDT) Anatomical Region [...] please contact the health home health care provider that requested your imaging first. ? Electronically signed by: Denise Johnson MD, [facility] ([phone]), at 01/24/2023 11:46 AM Narrative 01/24/2023 11:46 AM EDT EXAMINATION: XR [...] questions please contactthe health home health care provider that requested your imaging first. Electronically signed by: Denise Johnson MD, [facility]([phone]), at 01/24/2023 11:46 AM Julio Melissa MD IMG DX ORDERABLES documented in this encounter Visit Diagnoses Diagnosis S/P total knee arthroplasty, right S/P total knee arthroplasty, right Gastroesophageal reflux disease with esophagitis, unspecified whether hemorrhage documented in this encounter Care Teams Ms Sql Developer Relationship Specialty Start Date End Date Kennedi Shaver MD [facility] HALLE ECHEVARRIA [address] [place] [id number] PCP - General Family Medicine 08/02/20 06/24/24 documented as of this encounter
--- OUTSIDE RECORDS SUMMARY | 2024-09-11 15:21 | XMS_ITS | Encounter Summary ---
Author Organization [facility] [place] [address] Care Team Providers Care Roof Fitter Name Role Phone Kennedi Shaver MD Primary Care Provider [phone] Encounter Details Date Type Department Care Team (Late st Contact Info) Description 11/15/2022 11:00 AM EST TH Visit (TeleHealth) Sleep Center at [address] [phone] Ida Lucero APRN [facility] [place] [address] GIRISH (obstructive sleep apnea) Social History Tobacco Use Types Packs/Day Years [...] Sign Reading Time Taken Comments Blood Pressure 143/82 11/14/2022 3:00 PM EST taken on 11/14/22 Pulse - - Temperature - - Respiratory Rate - - Oxygen Saturation - - Inhaled Oxygen Concentration - - Weight 81.6 kg (180 lb) 11/14/2022 3:00 PM EST Height 179.1 cm (5' 10.5) 11/14/2022 3 :00 PM EST Body Mass Index 25.46 11/14/2022 3:00 PM EST documented in this encounter Progress Notes * Nic Ida A, PLATEMAKER - 11/15/2022 11:00 AM EST Sleep Medicine Telemedicine Follow-Up Note Patient is currently located [place] in [place] Patient provided verbal consent prior to initiation of this encounter and expressed understanding that the telemedicine visit may be billed similar to a clinic visit. A telehealth visit was necessary due to the ongoing COVID-19 public health emergency. CC: Mr. Chidi Carbone is a 76 y.o. male seen for telemedicine follow-up of obstructive sleep apnea. HPI: Sleep Study 05/03/20: Obstructive sleep apnea of a severe??degree was noted with oxygen desaturations??to a low of??85%.??The overall AHI was 53/hr with a CMS AHI of 20/hr. Events were somewhat more frequent while supine and more likely to be associated with cyclic oxygen desaturations in that position. There was evidence of prominent sleep onset central apneas but overall, central apneas accounted for <??5/hr of events. The mean SpO2 was 93% with 4 min spent at or below 88%. ??Snoring was observed. Weight: 192 lbs Treatment: AutoCPAP Device: DS-not sure if he has registered his unit for the [facility] recall Pressure: 8-15 cm, increased from 5-15 cm Oct 2020 Pressure Intolerance: maybe Supplemental oxygen: no Interface/Mask: Nasal pillows Difficulty tolerating mask interface: it's OK Chin Strap: no HCC: RR Update: When last seen in in Oct 2020 his autoCPAP pressures were increased to 8-15 cm. He did not return for f/u. A CPAP DL is not available today. Sounds like he hasn't been using the CPAP much since the recall was announced. He takes 10 mg of Ambien for insomnia and also 100 mg of provigil per day for increased concentration both are prescribed by an outside provider. He has underlying HTN. Is having knee surgery November 28, 2022 and needs to be using CPAP for the surgery. Symptoms: Patient-reported last 4 scores: [facility] 03/14/2020 11/15/2022 [facility] 3 (Low Risk) 0 (Low Risk) Insomnia Severity Index 2 (No clinically significant insomnia) - Snoring: no Naps: no Involuntary Dozing: no Sleepiness or Drowsiness when driving: no Sleep Pattern: Bedtime: 11p, takes Ambien nightly, is asleep within 20 minutes Position: laterally or supine Rise time: 5a Awakenings: off CPAP wakes once, on CPAP wakes not sure how many times Card Data Download: not available today Previous Card Data Download: Date Range: 08/19-11/20 Pressure: 5-15 cm Residual AHI: 10.3 Avg Vibratory Snore Index: 0.9 Avg% Night in Large Leak: 2.2% Average Usage (Days Used/Hours): 4hrs 26 min Days of usage: 69/84 % Days used > 4 hours: 52% Current Outpatient Medications: ??? predniSONE (Deltasone) 5 mg Tablet, Take 1 tablet by mouth daily., Disp: 30 tablet, Rfl: 11 ??? irbesartan (AVAPRO) 75 mg Tablet, Take 75 mg by mouth every evening., Disp: , Rfl: ??? ferrous sulfate 325 mg (65 mg iron) Tablet, Take 325 mg by mouth every other day., Disp: , Rfl: ??? abiraterone (Zytiga) 500 mg Tablet, Take 2 tablets by mouth daily. Brand name only., Disp: 60 tablet, Rfl: 11 ??? finasteride (Proscar) 5 mg Tablet, Take 1 tablet by mouth daily., Disp: 90 tablet, Rfl: 3 ??? tamsulosin (Flomax) 0.4 mg Capsule, Take 1 capsule by mouth daily., Disp: 90 tablet, Rfl: 3 ??? Provigil 100 mg Tablet, take 1 tablet by mouth once daily, Disp: , Rfl: ??? pantoprazole EC (Protonix) 40 mg Tablet, Delayed Release (E.C.), take 1 tablet by mouth twice aday, Disp: , Rfl: ??? zolpidem (AMBIEN) 10 mg Tablet, take 1 tablet by mouth at bedtime, Disp: , Rfl: ??? leuprolide acetate (LUPRON DEPOT IM), Inject into the muscle. Once every 3 months, dosage unknown, Disp: , Rfl: Active Ambulatory Problems Diagnosis Date Noted ??? GERD (gastroesophageal reflux disease) 11/27/2011 ??? 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 Hypertension 03/14/2020 ??? GI bleed 08/14/2022 ??? Acute blood loss anemia 08/16/2022 Resolved Ambulatory Problems Diagnosis Date Noted ??? No Resolved Ambulatory Problems No Additional Past Medical History GIRISH ROS: Constitutional: Weight change: patient not weighed today, based on most recent weight in [facility] weight has been- Wt Readings from Last 3 Encounters: 11/14/22 81.6 kg (180 lb) 11/08/22 79.8 kg (176 lb) 10/16/22 82.1 kg (181 lb) ENT: Nasal Obstruction: no : Nocturia: no Time spent: total time of visit was 20 minutes, including face to face counseling, chart review anddocumentation Assessment: Mr. Chidi Carbone is a 76 y.o. male seen for obstructive sleep apnea. The data download is not available today. Patient has not been using CPAP regularly since the recall, he thinks. He will restart autoCPAP now and mail the SD card so I can assess if a pressure changes are needed. Seems recently when he attempted the 8-15 cm pressure range he woke due to pressure intolerances. Recommendations: Restart autoCPAP 8-15 cm Confirm CPAP is registered with [facility] for the recall Mail SD card to the office for assessment Call Transmit company for questions on machine, supply replacements, billing, and for confirming compliance met Driving safety discussed, recommend patient not drive if drowsy, if drowsy while driving, pull overand nap. Follow-up: TBD The patient indicates understanding of these issues and agrees with the plan. IDA LUCERO APRN documented in this encounter Plan of Treatment Upcoming Encounters Date Type Department Care Team (Latest Contact Info) Description 09/29/2024 4:30 PM EST Hospital Encounter [place]astroenterology at [place] [phone] Lizet Wilkes MD [facility] [place] [address] 09/29/2024 4:30 PM EST - 09/29/2024 5:00 PM EST Surgery Gastroenterology at [place] [phone] Lizet Wilkes MD [facility] [place] [address] EGD, UPPER GI ENDOSCOPY (WRVU 2.09) 11/09/2024 10:00 AM EST Laboratory Appointment Lab at [facility] Hematology Oncology [address] [place], [place] [phone] 11/09/2024 11:00 AM EST Office Visit Hematology and Oncology at [place] [phone] Faith Caba MD [facility] [place] [address] 11/09/2024 12:00 PM EST Appointment Hematology and Oncology at [place] [phone] Scheduled Procedures Name Priority Associated Diagnoses Date/Ti me EGD, UPPER GI ENDOSCOPY (WRVU 2.09) Gastroesophageal reflux disease with esophagitis, unspecified whether hemorrhage 09/29/2024 4:30 PM EST documented as of this encounter Goals Goal Patient Goal Type Associated Problems Recent Progress Patient-Stated? Author DH Home Medication Compliance and Understanding Patient Facing Action Plan Curly Nicolas, [facility] Note: The patient? s goal is to continue positive results of oral chemotherapy by maintaining improved labs PSA or stable scans in clinic for the upcoming year. documented as of this encounter Visit Diagnoses Diagnosis GIRISH (obstructive sleep apnea) Obstructive sleep apnea (adult) (pediatric) Gastroesophageal reflux disease with esophagitis, unspecified whether hemorrhage documented in this encounter Care Teams Roof Fitter Relationship Specialty Start Date End Date Kennedi Shaver MD [facility] HALLE CALERO [facility] [address] [place] [address] PCP - General Family Medicine 08/02/20 06/24/24 documented as of this encounter
--- OUTSIDE RECORDS SUMMARY | 2024-09-11 15:21 | XMS_ITS | Encounter Summary ---
Author Organization [facility] [place] [address] Care Team Providers Care Insole Tape Stitcher Uco Name Role Phone Kennedi Shaver MD Primary Care Provider [phone] Encounter Details Date Type Department Care Team (Late st Contact Info) Description 12/22/2022 9:25 PM EDT Ancillary Procedure Radiology Library at [facility] [place] [phone] Kennedi Shaver MD [address] [place] [address] [facility] [address] [place], [place] [id number] Social History Tobacco Use Types Packs/Day Years Used Date Smoking Tobacco: Former Cigarettes 1977 Smokeless Tobacco: Never Alcohol Use Standard Drinks/Week Comments Yes 14 (1 standard drink = 0.6 oz pu re alcohol) [facility] Inpatient Questions Answer Date [...] 4:30 PM EST Hospital Encounter [place] [phone] Lizet Wilkes MD [facility] [place] [address] 09/29/2024 4:30 PM EST - 09/29/2024 5:00 PM EST Surgery [place] [phone] Lizet Wilkes MD [facility] [place] [address] EGD, UPPER GI ENDOSCOPY (WRVU 2.09) 11/09/2024 10:00 AM EST Laboratory Appointment Lab at [facility] Hematology Oncology [address] [place] [phone] 11/09/2024 11:00 AM EST Office Visit Hematology [place] [phone] Faith Caba MD [facility] DR [place] [address] 11/09/2024 12:00 PM EST Appointment Hematology [place] [phone] Scheduled Procedures Name Priority Associated Diagnoses Date/Ti me EGD, UPPER GI ENDOSCOPY (WRVU 2.09) Gastroesophageal reflux disease with esophagitis, unspecified whether hemorrhage 09/29/2024 4:30 PM EST documented as of this encounter Goals Goal Patient Goal Type Associated Problems Recent Progress Patient-Stated? Author DH [place] Medication Compliance and Understanding Patient Facing Action Plan Curly Nicolas, [facility] Note: The patient? s goal is to continue positive results of oral chemotherapy by maintaining improved labs PSA or stable scans in clinic for the upcoming year. documented as of this encounter Procedures Procedure Name Priority Date/Time Associated Diagnosis Comments FILM LIBRARY STORAGE ONLY DX KNEE Routine 12/22/2022 9:15 PM EDT documented in this encounter Results * Film Library- Storage Only DX Knee (12/22/2022 9:15 PM EDT) Narrative [facility] - 12/22/2022 9:15 PM EDT This exam is auto-finalizing. It's purpose is for storage only. Kennedi Shaver MD IMG FILM LIBRARY ORD ERABLES [place], [place] documented in this encounter Visit Diagnoses Not on filedocumented in this encounter Care Teams Insole Tape Stitcher Uco Relationship Specialty Start Date End Date Kennedi Shaver MD [facility] HALLE ECHEVARRIA [address] [place] [address] PCP - General Family Medicine 08/02/20 06/24/24 documented as of this encounter
--- OUTSIDE RECORDS SUMMARY | 2024-09-11 15:21 | XMS_ITS | Encounter Summary ---
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 Discharge Disposition: Home Social History Tobacco Use Types Packs/Day Years Used Date Smoking Tobacco: Former Cigarettes 1977 Smokeless Tobacco: Never Alcohol Use Standard Drinks/Week Comments Yes 14 (1 standard drink = 0.6 oz pu re alcohol) [facility] Inpatient Questions Answer Date Recorded Does [...] 4:30 PM EST Hospital Encounter Gastroenterology at [place] [phone] Lizet Wilkes MD [facility] [place] [address] 09/29/2024 4:30 PM EST - 09/29/2024 5:00 PM EST Surgery Gastroenterology at [place] [phone] Lizet Wilkes MD [facility] [place] [address] EGD, UPPER GI ENDOSCOPY (WRVU 2.09) 11/09/2024 10:00 AM EST Laboratory Appointment Lab at [facility] Hematology Oncology [address] [place], [place] [phone] 11/09/2024 11:00 AM EST Office Visit Hematology and Oncology at [place] [phone] Faith Caba MD [facility] DR HEMATOLOGY [place] [address] 11/09/2024 12:00 PM EST Appointment Hematology and Oncology at [place] [phone] Scheduled Procedures Name Priority Associated Diagnoses Date/Ti me EGD, UPPER GI ENDOSCOPY (WRVU 2.09) Gastroesophageal reflux disease with esophagitis, unspecified whether hemorrhage 09/29/2024 4:30 PM EST documented as of this encounter Goals Goal Patient Goal Type Associated Problems Recent Progress Patient-Stated? Author Home Medication Compliance and Understanding Patient Facing Action Plan Curly Nicolas, [facility] Note: The patient? s goal is to continue positive results of oral chemotherapy by maintaining improved labs PSA or stable scans in clinic for the upcoming year. documented as of this encounter Procedures Procedure Name Priority Date/Time Associated Diagnosis Comments HEMOGRAM Routine 01/15/2023 9:26 AM EDT Neoplasm of prostate, 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 DIFFERENTIAL, AUTOMATED Routine 01/15/2023 9:26 AM EDT Neoplasm of prostate, 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 HC CBC,PLT & AUTO DIFF Routine 9:26 AM EDT Neoplasm of prostate, 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 HC PROSTATE SPECIFIC ANTIGEN Routine 01/15/2023 9:26 AM EDT Neoplasm of prostate, 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 COMPREHENSIVE METABOLIC PANEL Routine 01/15/2023 9:26 AM EDT Neoplasm of prostate, 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 documented in this encounter Results * (ABNORMAL) Differential, Automated (01/15/2023 9:26 AM EDT) Neutrophil % 81.5 % [facility] Neutrophil Absolute 7.43(H) 1.70 - 6.10 x10(3)/mc L [facility] Lymph % 9.8 % [facility] Lymphocytes Abs 0.9 0.9 - 3.2 x10(3)/mc L [facility] Monocyte % 6.7 % [facility] Monocyte Abs 0.6 0.3 - 0.9 x10(3)/mc L [facility] Eos % 1.3 % [facility] Eosinophils Abs 0.1 0.0 - 0.4 x10(3)/mc L [facility] Basophil % 0.4 % [facility] Baso Absolute 0.0 0.0 - 0.1 x10(3)/mc L [facility] Immature Gran % 0.30 % [facility] Comment: Immature granulocytes(IG's)percentage and absolute count will include metamyelocytes, myelocytes, and promyelocytes. Blood smears from CBCs yielding IG's will be scanned manually for concordance. If this scan disagrees with the automated IG or if promyelocytes are noted, a manual differential will be performed. Immature Gran Absolute 0.03 0.00 - 0.04 x10(3)/mc L [facility] Blood 01/15/2023 9:26 AM EDT 01/15/2023 9:32 AM EDT Narrative Resulting Agency Comment Spec In Lab Donna Mika Bermudez MANAGER PAYMENT HEMATOLOGY ORDERABLE S Performing Organization Address City/State/[facility] Co de Phone Number [facility] [place] [address] * (ABNORMAL) Hemogram (01/15/2023 9:26 AM EDT) White Blood Cell 9.1 4.0 - 9.5 x10(3)/mc L [facility] Red Blood Cell 3.96(L) 4.58 - 5.54 x10(6)/mc L [facility] Hemoglobin 10.8(L) 13.7 - 16.5 g/dL [facility] Hematocrit 33.6(L) 40.5 - 48.5 % [facility] Mean Cell Volume 84.8 82.9 - 93.1 fL [facility] Mean Cell Hemoglobin 27.3(L) 27.5 - 32.1 pg [facility] Mean Cell Hemoglobin Concentration 32.1 32.0 - 35.7 g/dL [facility] Platelet 252 145 - 357 x10(3)/mc L [facility] RDW Standard Deviation 60.7(H) 36.0 - 45.0 fL [facility] RDW coefficient of variation 19.7(H) 11.4 - 13.8 % [facility] Mean Platelet Volume 10.2 7.6 - 12.9 fL [facility] NRBC% auto 0.0 % [facility] NRBC Absolute 0.000 0.000 - 0.000 x10(3)/mc L [facility] Blood 01/15/2023 9:26 AM EDT 01/15/2023 9:32 AM EDT Narrative Resulting Agency Comment Spec In Lab Donna Bermudez APRN HEMATOLOGY ORDERABLE S Performing Organization Address [facility] Co de Phone Number [facility] [place] [address] * PSA (Ultrasensitive) (01/15/2023 9:26 AM EDT) Prostate Specific Antigen (Ultrasensitive) <0.01 0.00 - 4.00 ng/mL [facility] Comment: PLEASE NOTE: The above reference interval is intended for healthy males with an intact prostate. Values within this reference interval may indicate recurrence in men who have undergone radical prostatectomy. This result was generated using a Kenneth Paz immunoassay. ??Results obtained from other methods or manufacturers cannot be used interchangeably with this method. Blood 01/15/2023 9:26 AM EDT 01/15/2023 9:32 AM EDT Narrative Resulting Agency Comment Spec In Lab Donna Bermudez APRN CHEMISTRY ORDERABLES Performing Organization Address [facility] de Phone Number [facility] [place] [address] * (ABNORMAL) Comprehensive metabolic panel (non-fasting) (01/15/2023 9:26 AM EDT) Glucose 112 65 - 199 mg/dL [facility] Comment:Diabetes: >=200 mg/d L plus symptoms Blood Urea Nitrogen 16 10 - 20 mg/dL [facility] Creatinine 0.75(L) 0.80 - 1.50 mg/dL [facility] Sodium 140 135 - 145 mmol/L [facility] Potassium 4.0 3.5 - 5.0 mmol/L [facility] Comment: Please note: ??Patients with WBC >100,000 may have falsely elevated Potassium levels. ??For accurate Potassium quantification in these patients send serum separator tube (gold top) for subsequent determinations. ??Contact the Clinical Chemistry Laboratory if there are any questions. Chloride 105 98 - 107 mmol/L [facility] Carbon Dioxide 21(L) 22 - 31 mmol/L [facility] Anion Gap 14 5 - 15 mmol/L [facility] Calcium 9.0 8.5 - 10.5 mg/dL [facility] Protein, Total 6.9 6.1 - 8.0 g/dL [facility] Albumin 4.3 3.2 - 5.2 g/dL [facility] Aspartate Aminotransferase Not Perf 0 - 39 [facility] Comment:Unable to quantitate due to sample hemolysis. Sample redraw suggested. Alanine Aminotransferase 7 0 - 55 unit/L [facility] Alkaline Phosphatase 126 40 - 130 unit/L [facility] Bilirubin, Total 0.5 0.2 - 1.3 mg/dL [facility] Est Glomerular Filtration Rate 92 >=60 mL/min/1. 73 m?? [facility] Comment: This patient's estimated GFR [...] and symptoms in addition to eGFR. Blood 01/15/2023 9:26 AM EDT 01/15/2023 9:32 AM EDT Narrative Resulting Agency Comment Spec In Lab Donna Bermudez MANAGER PAYMENT CHEMISTRY ORDERABLES [facility] [place] [address] documented in this encounter Visit Diagnoses Diagnosis Neoplasm of prostate, 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 Gastroesophageal reflux disease with esophagitis, unspecified whether hemorrhage documented in this encounter Care Teams Surgical Dental Assistant Relationship Specialty Start Date End Date Kennedi Shaver MD [address] [place] [address] PCP - General Family Medicine 08/02/20 06/24/24 documented as of this encounter
--- OUTSIDE RECORDS SUMMARY | 2024-09-11 15:21 | XMS_ITS | Encounter Summary ---
[place] [address] Care Team Providers Care Licensed Funeral Director Name Role Phone Kennedi Shaver MD Primary Care Provider [phone] Encounter Details Date Type Department Care Team (Late st Contact Info) Description 11/14/2022 Notes [place] [phone] Aria Parker RN Social History Tobacco Use Types Packs/Day [...] as of this encounter Progress Notes * Aria Parker RN - 11/14/2022 7:56 PM EST High Risk Interdisciplinary Geriatric Surgery Conference Report Patient: Chidi Carbone Date of Conference: Surgery Automotive Machinist: Anesthesia Automotive Machinist: Nursing Automotive Machinist: Case Management/Social Work Rep: Geriatric Medicine Automotive Machinist: Psychiatry Automotive Machinist: 11/14/2022 Reny Ingram/Kayla Salinas Procedure Details as of: 11/08/2022 Planned Procedure TOTAL KNEE ARTHROPLASTY (WRVU 20.72), MODIFIER,GMK SPHERE EFFICIENCY CR KNEE,MEDACTA Procedure Date 11/28/2022 Surgeon BENEDICT MARROQUIN Brief History of Present Illness: Chidi Carbone is a 76 y.o. male. Patient's recent notable history includes: OA; prostate cancer; GERD; HTN; acute blood loss anemia; GIRISH (CPAP machine was recalled, not currently using); GI bleed (07/2022); anemia; BMI 24. Overall Health & Treatment Goals: N/a Postoperative Care Planning: Patient lives in [place], [place] (1 hour) with [place]. 7 steps to enter multi-level home with kitchen/bath on main level and bedroom/bathroom on 2nd floor. Daybed on main level that he can use after surgery. Daughter Pushpa will be coming to bring him to surgery and stay with them for 4-5 days after discharge. Preoperative Geriatric Vulnerability Screening Results: Age > 85: No Risk Screening Date: 11/08/2022 Impaired Cognition per Mini-Cog (Elective Screen): No Impaired Cognition per AD8 (Elective Screen): No Frailty (Elective Screen): Positive Delirium Risk (Elective Screen): At risk Impaired Mobility (Elective Screen): Yes Impaired Functional Status (Elective Screen): Yes, partially impaired/dependent Malnutrition: Negative Difficulty Swallowing: Negative Palliative Care Consult Indicated: Not assessed Overall High Risk Assessment: Positive Advanced Directives: On file in eDH?: Y DPOA Activated (If yes, provide contact information): NO Preoperative Code Status: Full Code Notes / Comments for Patient Admission: Overall Interdisciplinary Assessment: Proceed with surgery without any further workup / intervention Anesthesia Recommendation: Use high risk geriatric anesthesia pathway Impaired Cognition: N/A Delirium Risk: Implement postoperative delirium prevention pathway Impaired Functional Status: PT/OT consultation with visit POD1 Impaired Mobility: PT/OT consultation with visit POD1 Malnutrition: N/A Difficulty Swallowing: N/A Palliative Care: N/A Other: Communication Plan: Note signed and available in eDH, Note routed to surgeon and Note routed to PCP Please consider use of the Postoperative Geriatric Surgery [place] Order set for standard recommendations regarding delirium prevention and pain management. Specific recommendations include: - Patient is at increased risk for delirium due to current non-compliance with CPAP and use of Ambien. - Please note 11/08 Kisha Simms PA office visit recommendations for post-op med parameters and avoidance of NSAIDS and aspirin due to recent GI bleed. - If stay is extended, advise monitoring for s/s of ETOH withdrawal. - Please note patient lives in a multi-level home with FOS to enter home, and FOS within home, and should receive PT stairs evaluation prior to discharge. - Patient has been advised to schedule f/u with PCP within 7 days of discharge. Thank you for allowing us to participate in the care of Mr. Carobne. Please consider a consult to Gerontology service (pager [phone]), if indicated, and do not hesitate to contact the V program with further questions or concerns. documented in this encounter Plan of Treatment Upcoming Encounters Date Type Department Care Team (Latest Contact Info) Description 09/29/2024 4:30 PM EST Hospital En[place] [address] Lizet Wilkes MD [facility] [place] [address] 09/29/2024 4:30 PM EST - 09/29/2024 5:00 PM EST [place] [address] Lizet Wilkes MD [facility] [place] [address] EGD, UPPER GI ENDOSCOPY (WRVU 2.09) 11/09/2024 10:00 AM EST Laboratory Appointment Lab at [facility] Hematology Oncology [address] [place] [phone] 11/09/2024 11:00 AM EST Office Visit Hematology [place] [address] Faith Caba MD [facility] DR HEMATOLOGY [place] [address] 11/09/2024 12:00 PM EST Appointment Hematology and Oncology at [facility] [place] [address] Scheduled Procedures Name Priority Associated Diagnoses Date/Ti me EGD, UPPER GI ENDOSCOPY (WRVU 2.09) Gastroesophageal reflux disease with esophagitis, unspecified whether hemorrhage 09/29/2024 4:30 PM EST documented as of this encounter Goals Goal Patient Goal Type Associated Problems Recent Progress Patient-Stated? Author DH Home Medication Compliance and Understanding Patient Facing Action Plan Curly Nicolas, [facility] Note: The patient? s goal is to continue positive results of oral chemotherapy by maintaining improved labs PSA or stable scans in clinic for the upcoming year. documented as of this encounter Visit Diagnoses Not on filedocumented in this encounter Care Teams Licensed Funeral Director Relationship Specialty Start Date End Date Kennedi hSaver MD [address] [place] [address] PCP - General Family Medicine 08/02/20 06/24/24 documented as of this encounter
--- OUTSIDE RECORDS SUMMARY | 2024-09-11 15:21 | XMS_ITS | Encounter Summary ---
Author Organization [facility] [place] [address] Care Team Providers Care Club Steward Name Role Phone Kennedi Shaver MD Primary Care Provider [phone] Encounter Details Date Type Department Care Team (Late st Contact Info) Description 12/22/2022 Telephone [place] [address] Radha Owen MD [facility] [place] [address] Social History Tobacco Use Types Packs/Day Years [...] encounter Miscellaneous Notes * Telephone Encounter - Radha Owen MD - 12/22/2022 10:14 PM EDT Ortho Transfer Center Call Spoke to Maurice Jelena at [facility] due to concern for fever to 101.2 and swelling + erythema of R knee. He is s/p R TKA 12/19/22. XR WBC 13.4, ESR 100 CRP 25.78. R knee XR show normal post op knee with well positioned, well aligned implants. Images sent by provider show normal post op knee with expected postoperative swelling. Patient is taking rivaroxaban as prescribed and a ultrasound was done of the lower extremity to evaluate for DVT which was negative. XR of chest was done as well as UA which were negative per provider. The patient decided to go home with their family and will come back to [facility] if he fevers again. He was sent home with an incentive spirometer. Radha Owen MD documented in this encounter Plan of Treatment Upcoming Encounters Date Type Department Care Team (Latest Contact Info) Description 09/29/2024 4:30 PM EST Hospital Encounter [place] [address] Lizet Wilkes MD [facility] [place] [address] 09/29/2024 4:30 PM EST - 09/29/2024 5:00 PM EST [place] [address] Lizet Wilkes MD [facility] [place] [address] EGD, UPPER GI ENDOSCOPY (WRVU 2.09) 11/09/2024 10:00 AM EST Laboratory Appointment Lab at [facility] Hematology Oncology [address] [place] [phone] 11/09/2024 11:00 AM EST Office Visit Hematology [place] [address] Faith Caba MD [facility] [place] [address] 11/09/2024 12:00 PM EST Appointment Hematology [place] [address] Scheduled Procedures Name Priority Associated [...] on filedocumented in this encounter Care Teams Club Steward Relationship Specialty Start Date End Date Kennedi Shaver MD [facility] [address] [facility] [address] [place] [address] PCP - General Family Medicine 08/02/20 06/24/24 documented as of this encounter
--- OUTSIDE RECORDS SUMMARY | 2024-09-11 15:21 | XMS_ITS | Encounter Summary ---
Author Organization [facility] [place] [address] Care Team Providers Care Chief Executive Name Role Phone Kennedi Shaver MD Primary Care Provider [phone] Reason for Visit * Reason Comments Follow-up Encounter Details Date Type Department Care Team (Late st Contact Info) Description 01/15/2023 10:00 AM EDT Office Visit Hematology [place] [address] Faith Caba MD [facility] [place] [address] Wyatt Barriga PA [facility] [place] [address] Neoplasm of prostate, distant metastasis staging category [...] Sign Reading Time Taken Comments Blood Pressure 147/65 01/15/2023 10:12 AM EDT Pulse 90 01/15/2023 10:12 AM EDT Temperature 36.5 ??C (97.7 ??F) 01/15/2023 10:12 AM E DT Respiratory Rate 16 01/15/2023 10:12 AM EDT Oxygen Saturation 98% 01/15/2023 10:12 AM EDT Inhaled Oxygen Concentration - - Weight 79.2 kg (174 lb 9.7 oz) 01/15/2023 10:12 AM EDT Height 177.6 cm (5' 9.92) 01/15/2023 10:12 AM E DT Body Mass Index 25.11 01/15/2023 10:12 AM EDT documented in this encounter Progress Notes * Faith Caba MD - 01/15/2023 10:00 AM EDT Images from the original note were not included. [facility] Medicine [place] [address] ONCOLOGY FOLLOW UP VISIT DIAGNOSIS: Metastatic prostate [...] 10/10/21: osteopenia, referred to Endo HPI: Chidi Carbone presents today for follow up. He is recovering from knee surgery last month. No able to ambulate indpendently with a cane. Minimal residual pain on the R, but notes L knee pain whichis now more noticeable since having the R knee surgery. No other pain. Minimal hot flushes. 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 PAST MEDICAL HISTORY: 1. As above 2. GERD and Sol's esophagus S/p Alli Fundoplication 3. ELevated fasting glusoce 4. S/p distant appendectomy 5. S/p tonsilectomy 6. Hypertension MEDS: Medications 01/16/23 1211 Medication Sig Taking? rivaroxaban (Xarelto) 10 mg tablet Take 1 tablet by mouth daily. Take for 30 days after surgery. Last day = 01/18/23 Yes acetaminophen (Tylenol) 500 mg tablet Take 2 tablets by mouth every 8 hours. Continue the Tylenol around the clock for 10 days after surgery, (12/29/22). Then may take if needed per package insert. Do not take more than 3,000 mg of Tylenol in 24 hours. Yes polyethylene glycoL (Miralax) 17 gram oral powder packet Take 17 g by mouth 2 times daily as needed(constipation). Yes senna-docusate (Pericolace) 8.6-50 mg Tablet Take 2 tablets by mouth 2 times daily as needed for Constipation. Yes predniSONE (Deltasone) 5 mg Tablet Take [...] Once every 3 months, dosage unknown Yes oxyCODONE (Roxicodone) 5 mg tablet Take 1 tablet by mouth every 4 hours as needed for Pain. Patient not taking: Reported on 01/15/2023 ALLERGY: No Known Allergies FAMILY HX: Reviewed no change SOCIAL HX: Reviewed - no change PHYSICAL EXAM: BP 147/65 (Patient Position: Sitting) Pulse 90 Temp 36.5 ??C (97.7 ??F) (Temporal) Resp 16 Ht 177.6 cm (5' 9.92) Wt 79.2 kg (174 lb 9.7 oz) SpO2 98% BMI 25.11 kg/m?? ECOG PS: 0 General: NAD NCAT No cerval nodes RRR CTAB No rash No spinal tendernedd Musculoskeletal: Ambulatory with cane. Neurological: Alert & oriented, no focal deficits. Psych: Conversant, normal mood and affect. LABS: Hb 10.8 improving since surgery CMP normal PSA undetectable IMAGING STUDIES: No new ASSESSMENT AND PLAN: 77 y.o. M has metastatic prostate cancer with extensive disease involving nodes and bones. He is oncombination lupron+abiraterone in the first line therapy since Apr 2017. Clinically doing well, without any sx to suggest disease progression Tolerating tx with manageable mild hot flushes PSA remains undetectable Cont ADT + Iveth/Pred Osteoporosis: Hcont Ca and vit D H has not followed with endocrinology F/u in 3 months Mr. Carbone asked appropriate questions and verbalized good understanding of and agreement with theplan. I encouraged him to call anytime with questions or concerns and he agreed. Faith Caba MD Oncology documented in this encounter Plan of Treatment Upcoming Encounters Date Type Department Care Team (Latest Contact Info) Description 09/29/2024 4:30 PM EST Hospital Encounter Gastroenterology at [place] [phone] Lizet Wilkes MD [facility] [place] [address] 09/29/2024 4:30 PM EST - 09/29/2024 5:00 PM EST Surgery Gastroenterology at [place] [phone] Lizet Wilkes MD [facility] [place] [address] EGD, UPPER GI ENDOSCOPY (WRVU 2.09) 11/09/2024 10:00 AM EST Laboratory Appointment Lab at [facility] Hematology Oncology [address] [place], [place] [phone] 11/09/2024 11:00 AM EST Office Visit Hematology [place] [phone] Faith Caba MD [facility] DR HEMATOLOGY [place] [address] 11/09/2024 12:00 PM EST Appointment Hematology [place] [phone] Scheduled Procedures Name Priority Associated [...] hemorrhage documented in this encounter Care Teams Chief Executive Relationship Specialty Start Date End Date Kennedi Shaver MD [address] [place] [address] PCP - General Family Medicine 08/02/20 06/24/24 documented as of this encounter
--- OUTSIDE RECORDS SUMMARY | 2024-09-11 15:21 | XMS_ITS | Encounter Summary ---
Author Organization [facility] [place] [address] Care Team Providers Care Operations Associate Name Role Phone Kennedi Shaver MD Primary Care Provider [phone] Encounter Details Date Type Department Care Team (Late st Contact Info) Description 12/22/2022 Telephone [place] [address] Radha Owen MD [facility] [place] [address] Social History Tobacco Use Types Packs/Day Years Used Date Smoking Tobacco: Former Cigarettes 1977 Smokeless Tobacco: Never Alcohol Use Standard Drinks/Week Comments Yes 14 (1 standard drink = 0.6 oz pu re alcohol) [facility] Inpatient Questions Answer Date Recorded Does [...] 4:30 PM EST Hospital Encounter [place] [phone] Lizet Wilkes MD [facility] [place] [address] 09/29/2024 4:30 PM EST - 09/29/2024 5:00 PM EST Surgery [place] [phone] Lizet Wilkes MD [facility] [place] [address] EGD, UPPER GI ENDOSCOPY (WRVU 2.09) 11/09/2024 10:00 AM EST Laboratory Appointment Lab at [facility] Hematology Oncology [address] [place] [phone] 11/09/2024 11:00 AM EST Office Visit Hematology [place] [phone] Faith Caba MD [facility] DR [place] [address] 11/09/2024 12:00 PM EST Appointment Hematology [place] [phone] Scheduled Procedures Name Priority Associated Diagnoses Date/Ti me EGD, UPPER GI ENDOSCOPY (WRVU 2.09) Gastroesophageal reflux disease with esophagitis, unspecified whether hemorrhage 09/29/2024 4:30 PM EST documented as of this encounter Goals Goal Patient Goal Type Associated Problems Recent Progress Patient-Stated? Author DH [place] Medication Compliance and Understanding Patient Facing Action Plan Curly Nicolas, [facility] Note: The patient? s goal is to continue positive results of oral chemotherapy by maintaining improved labs PSA or stable scans in clinic for the upcoming year. documented as of this encounter Visit Diagnoses Not on filedocumented in this encounter Care Teams Operations Associate Relationship Specialty Start Date End Date Kennedi Shaver MD [address] [facility] 1 [place] [address] PCP - General Family Medicine 08/02/20 06/24/24 documented as of this encounter
--- OUTSIDE RECORDS SUMMARY | 2024-09-11 15:21 | XMS_ITS | Encounter Summary ---
Author Organization [facility] [place] [address] Care Team Providers Care Gas Engine Mechanic Name Role Phone Kennedi Shaver MD Primary Care Provider [phone] Reason for Visit * Reason Onset Date Comments Post-op Problem 12/27/2022 Encounter Details Date Type Department Care Team (Late st Contact Info) Description 12/27/2022 Telephone [place] [address] Julio Melissa MD Post-op Problem Social History Tobacco Use Types Packs/Day Years [...] encounter Miscellaneous Notes * Telephone Encounter - Dev Werner - 12/27/2022 3:19 PM EDT Patient had not been taking stool softeners for the last few days and has only had small BMs. She advised to call PCP or Ortho if no change in the next 24h. She advised use of stool softeners and increased water intake. No visit is planned for tomorrow. No other orthopaedic concerns. Called patient to confirm no ortho issues. None at this time. Patient is low energy but has not hadmuch to eat the last few days. Patient's pain is well controlled with acetaminophen and is no longer taking the opioid medications. I encouraged him atht he is doing all of the right things and that he should be starting to feel better after his meal. He was very appreciative for the call and agrees with the prospect of turing the corner soon. I advised him to reach out to his PCp with any worsening symptoms or if there are no changes. If he does not receive assistance from them, I encouraged him to call us back and we will assist in any way we can. * Telephone Encounter - Sussy Lester - 12/27/2022 11:17 AM EDT Summary: Post op Concern Images from the original note were not included. Who is calling? REYES WITH [facility] Best call back number: [phone] Best time to call back between 8:00 am & 5:00 pm: ANYTIME Can we leave a message? yes When was your procedure? 12/19/2022 Who was your surgeon? LOPEZ What procedure did you have done? What is the question you would like to ask the clinical care team? Reyes is calling after seeing the patient today with some concerns. No appetite with abdominal pain. She is hearing some bowel sounds but nothing is normal. The patient has tried Mirilax with little result , Reyes sent the patients sister to apple picking supervisor the stool softenerto see if that helps. Reyes feels he is very dehydrated and not feeling well. Your message will be forwarded to the clinical care team for review. documented in this encounter Plan of Treatment Upcoming Encounters Date Type Department Care Team (Latest Contact Info) Description 09/29/2024 4:30 PM EST Hospital Encounter [place] [phone] Lizet Wilkes MD [facility] [place] [address] 09/29/2024 4:30 PM EST - 09/29/2024 5:00 PM EST Surgery [place] [phone] Lizet Wilkes MD [facility] [place] [address] EGD, UPPER GI ENDOSCOPY (WRVU 2.09) 11/09/2024 10:00 AM EST Laboratory Appointment Lab at [facility] Hematology Oncology [address] [place] [phone] 11/09/2024 11:00 AM EST Office Visit Hematology [place] [phone] Faith Caba MD [facility] DR [place] [address] 11/09/2024 12:00 PM EST Appointment Hematology [place] [phone] Scheduled Procedures Name Priority Associated Diagnoses Date/Ti me EGD, UPPER GI ENDOSCOPY (WRVU 2.09) Gastroesophageal reflux disease with esophagitis, unspecified whether hemorrhage 09/29/2024 4:30 PM EST documented as of this encounter Goals Goal Patient Goal Type Associated Problems Recent Progress Patient-Stated? Author DH [place] Medication Compliance and Understanding Patient Facing Action Plan Curly Nicolas, [facility] Note: The patient? s goal is to continue positive results of oral chemotherapy by maintaining improved labs PSA or stable scans in clinic for the upcoming year. documented as of this encounter Visit Diagnoses Not on filedocumented in this encounter Care Teams Gas Engine Mechanic Relationship Specialty Start Date End Date Kennedi Shaver MD [address] [place] [address] PCP - General Family Medicine 08/02/20 06/24/24 documented as of this encounter
--- OUTSIDE RECORDS SUMMARY | 2024-09-11 15:21 | XMS_ITS | Encounter Summary ---
Author Organization [place] [address] Care Team Providers Care Change Management Coordinator Name Role Phone Kennedi Shaver MD Primary Care Provider [phone] Encounter Details Date Type Department Care Team (Late st Contact Info) Description 12/22/2022 9:20 PM EDT Ancillary Procedure Radiology Library at [facility] [place] [address] Kennedi Shaver MD [address] [place] [address] [facility] 1 [place] [address] Social History Tobacco Use Types Packs/Day Years Used Date Smoking Tobacco: Former Cigarettes 1977 Smokeless Tobacco: Never Alcohol Use Standard Drinks/Week Comments Yes 14 (1 standard drink = 0.6 oz pu re alcohol) [facility] [...] 4:30 PM EST Hospital Encounter [place] [address] Lizet Wilkes MD [facility] [place] [address] 09/29/2024 4:30 PM EST - 09/29/2024 5:00 PM EST Surgery [place] [phone] Lizet Wilkes MD [facility] [place] [address] EGD, UPPER GI ENDOSCOPY (WRVU 2.09) 11/09/2024 10:00 AM EST Laboratory Appointment Lab at [facility] Hematology Oncology [address] [place] [phone] 11/09/2024 11:00 AM EST Office Visit Hematology [place] [phone] Faith Caba MD [facility] DR HEMATOLOGY [place] [address] 11/09/2024 12:00 PM EST Appointment Hematology [place] [phone] Scheduled Procedures Name Priority Associated Diagnoses Date/Ti me EGD, UPPER GI ENDOSCOPY (WRVU 2.09) Gastroesophageal reflux disease with esophagitis, unspecified whether hemorrhage 09/29/2024 4:30 PM EST documented as of this encounter Goals Goal Patient Goal Type Associated Problems Recent Progress Patient-Stated? Author DH [place] Medication Compliance and Understanding Patient Facing Action Plan Curly Nicolas, [facility] Note: The patient? s goal is to continue positive results of oral chemotherapy by maintaining improved labs PSA or stable scans in clinic for the upcoming year. documented as of this encounter Procedures Procedure Name Priority Date/Time Associated Diagnosis Comments FILM LIBRARY STORAGE ONLY DX CHEST Routine 12/22/2022 9:15 PM EDT documented in this encounter Results * Film Library- Storage Only DX Chest (12/22/2022 9:15 PM EDT) Narrative [facility] - 12/22/2022 9:15 PM EDT This exam is auto-finalizing. It's purpose is for storage only. Kennedi Shaver MD IMG FILM LIBRARY ORD ERABLES [place], [place] documented in this encounter Visit Diagnoses Not on filedocumented in this encounter Care Teams Change Management Coordinator Relationship Specialty Start Date End Date Kennedi Shaver MD [facility] [address] [place] [address] PCP - General Family Medicine 08/02/20 06/24/24 documented as of this encounter
--- OUTSIDE RECORDS SUMMARY | 2024-09-11 15:22 | XMS_ITS | Encounter Summary ---
Author Organization [facility] [place] [address] Care Team Providers Care Site Physician Name Role Phone Kennedi Shaver MD Primary Care Provider [phone] Encounter Details Date Type Department Care Team (Late st Contact Info) Description 10/12/2022 Telephone [place] [phone] Julio Melissa MD Social History Tobacco Use [...] (Latest Contact Info) Description 09/29/2024 4:30 PM [facility] Hospital [place] [phone] Lizet Wilkes MD [facility] [place] [address] 09/29/2024 4:30 PM EST - 09/29/2024 5:00 PM EST Surgery Gastroenterology at [place] [address] Lizet Wilkes MD [facility] [place] [address] EGD, UPPER GI ENDOSCOPY (WRVU 2.09) 11/09/2024 10:00 AM EST Laboratory Appointment Lab at [facility] Hematology Oncology [address] [place] [phone] 11/09/2024 11:00 AM EST Office Visit [place]ology [place] [phone] Faith Caba MD [facility] DR HEMATOLOGY [place] [address] 11/09/2024 12:00 PM EST Appointment Hematology and Oncology at [place] [phone] Scheduled Procedures Name Priority Associated Diagnoses Date/Ti [...] on filedocumented in this encounter Care Teams Site Physician Relationship Specialty Start Date End Date Kennedi Shaver MD [facility] [address] [place] [address] PCP - General Family Medicine 08/02/20 06/24/24 documented as of this encounter
--- OUTSIDE RECORDS SUMMARY | 2024-09-11 15:22 | XMS_ITS | Encounter Summary ---
Author Organization [facility] [place] [address] Care Team Providers Care Senior Maintenance Mechanic Name Role Phone Kennedi Shaver MD Primary Care Provider [phone] Encounter Details Date Type Department Care Team (Late st Contact Info) Description 10/11/2022 [place] [address] Julio Melissa MD Social History Tobacco Use [...] encounter Miscellaneous Notes * Telephone Encounter - Mone Sargent - 10/11/2022 9:16 AM EST I left a message for patient to see if they wanted to move up on the surgery schedule as Dr MELISSA had a cancellation. I asked patient to call me back directly at [phone]. Thank you documented in this encounter Plan of Treatment Upcoming Encounters Date Type Department Care Team (Latest Contact Info) Description 09/29/2024 4:30 PM EST Hospital Encounter Gastroenterology at [place] [phone] Lizet Wilkes MD [facility] [place] [address] 09/29/2024 4:30 PM EST - 09/29/2024 5:00 PM EST [place] [phone] Lizet Wilkes MD [facility] [place] [address] EGD, UPPER GI ENDOSCOPY (WRVU 2.09) 11/09/2024 10:00 AM EST Laboratory Appointment Lab at [facility] Hematology Oncology [address] [place] [phone] 11/09/2024 11:00 AM EST Office Visit Hematology and Oncology at [place] [phone] Faith Caba MD [facility] DR [place] [address] 11/09/2024 12:00 PM EST Appointment [place]ematology [place] [phone] Scheduled Procedures Name Priority Associated Diagnoses Date/Ti [...] on filedocumented in this encounter Care Teams Senior Maintenance Mechanic Relationship Specialty Start Date End Date Kennedi Shaver MD [address] [facility] 1 [place] [address] PCP - General Family Medicine 08/02/20 06/24/24 documented as of this encounter
--- OUTSIDE RECORDS SUMMARY | 2024-09-11 15:22 | XMS_ITS | Encounter Summary ---
[place] [address] Care Team Providers Care Circle Saw Operator Name Role Phone Kennedi Shaver MD Primary Care Provider [phone] Reason for Referral * Diagnostic Test (Routine) - Closed Specialty Diagnoses / Procedures Referred By Blaine peralta Referred To Contact Radiology Diagnoses Neoplasm of prostate, 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 Procedures NM Bone Scan Whole Body Wyatt Barriga PA [facility] [address] [place] [address] [place] [address] Referral ID Status Reason Start Date Expiration Date V isits Requested Visits Authorized [id number] Closed Specialty Service Requested 10/27/2022 04/26/2024 1 1 Encounter Details Date Type Department Care Team (Late st Contact Info) Description 10/27/2022 Orders Only Hematology [place] [phone] Wyatt Barriga PA [facility] [address] [place] [address] Neoplasm of prostate, distant metastasis staging category [...] 4:30 PM EST Hospital En[place] [phone] Lizet Wilkes MD [facility] [place] [address] 09/29/2024 4:30 PM EST - 09/29/2024 5:00 PM EST [place] [phone] Lizet Wilkes MD [facility] [place] [address] EGD, UPPER GI ENDOSCOPY (WRVU 2.09) 11/09/2024 10:00 AM EST Laboratory Appointment Lab at [facility] Hematology Oncology [address] [place] [phone] 11/09/2024 11:00 AM EST Office Visit [place]ematology [place] [phone] Faith Caba MD [facility] [place] [address] 11/09/2024 12:00 PM EST Appointment [place]ology [place] [phone] Scheduled Procedures Name Priority Associated Diagnoses Date/Ti [...] documented as of this encounter Results * NM Bone Scan [...] who have questions please contact the health clinical manager home care that requested your imaging first. ? Electronically signed by: German Hoffman MD, [facility] ([phone]), at 11/14/2022 10:23 AM Narrative 11/14/2022 10:23 [...] patients who have questions please contactthe health clinical manager home care that requested your imaging first. 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
--- OUTSIDE RECORDS SUMMARY | 2024-09-11 15:22 | XMS_ITS | Encounter Summary ---
[place] [address] Care Team Providers Care Director Regulatory Compliance Name Role Phone Kennedi Shaver MD Primary Care Provider [phone] Encounter Details Date Type Department Care Team (Late st Contact Info) Description 11/09/2022 Telephone [place] [phone] Aria Parker RN Social History Tobacco Use [...] encounter Miscellaneous Notes * Telephone Encounter - Aria Parker RN - 11/09/2022 9:17 AM EST CARES Geriatric Surgery Intake Chidi Lopez Karriemyranda is 76 y.o. Referral Source: PCC Intended Surgery: right total knee arthroplasty Date of Surgery: 11/28/2022 Kennedi Shaver MD - has appt within next week Has ability to have Telehealth appointment PHONE CM Initial Assessment: Source of information: Patient Readmission within the last 30 days: no previous admission in last 30 days Decision Maker: Self Order of surrogacy information: Advanced directive: Yes, on file Who is your DPOA-HC: Spouse Did you serve in the : No Are you enrolled in the VA for your healthcare: Are you here under your VA benefit: Current or prior mental health history: Living Environment: People in home: spouse Current living arrangements: home/apartment/condo Home accessibility (concerns, stairs, handicapped accessibility, etc.): 7 steps to enter multi-level home with kitchen/bathroom on main level, and FOS to 2nd floor bedroom/bathroom. Able to stay on main level after surgery. Resource/environmental concerns: none Environment concerns: Financial concerns: Home accessibility concerns: Transportation: no concerns Current care provided by: self Caregiver phone number: Provides primary care for: no one Caregiver if needed: spouse Primary caregiver(s) name: Quality of family relationships: supportive Able to return to prior arrangement at discharge or after rehab: yes Current outpatient/agency/support: none Functional Status: Current functional status: Prior functional status: Assistive Equipment Equipment currently used at home: cane - straight Patient/Family Anticipated Discharge: Patient/family anticipates transition to : home with family / other Patient/family anticipated services at transition: rehabilitation services Transportation anticipated: family or friend will provide Concerns to be addressed: no discharge needs identified Advance Directives 2015; DPOA Danish and daughter Pushpa. Preoperative Geriatric Vulnerability Screening Results: Age > 85: No Risk Screening Date: 11/08/2022 Planned Procedure TOTAL KNEE ARTHROPLASTY (WRVU 20.72), MODIFIER,GMK SPHERE EFFICIENCY CR KNEE,MEDACTA Planned Surgeon BENEDICT MARROQUIN Planned Procedure Date 11/28/2022 Impaired Cognition per Mini-Cog (Elective Screen): No Impaired Cognition per AD8 (Elective Screen): No Frailty (Elective Screen): Positive Delirium Risk (Elective Screen): At risk Impaired Mobility (Elective Screen): Yes Impaired Functional Status (Elective Screen): Yes, partially impaired/dependent Malnutrition: Negative Difficulty Swallowing: Negative Palliative Care Consult Indicated: Not assessed Patient would like to speak with surgeon again: No Overall High Risk Assessment: Positive documented in this encounter Plan of Treatment Upcoming Encounters Date Type Department Care Team (Latest Contact Info) Description 09/29/2024 4:30 PM EST Hospital Encounter Gastroenterology at [place] [phone] Lizet Wilkes MD [facility] [place] [address] 09/29/2024 4:30 PM EST - 09/29/2024 5:00 PM EST Surgery Gastroenterology at [place] [phone] Lizet Wilkes MD [facility] [place] [address] EGD, UPPER GI ENDOSCOPY (WRVU 2.09) 11/09/2024 10:00 AM EST Laboratory Appointment [facility] [place] [facility] [place] [address] [place] [phone] 11/09/2024 11:00 AM EST Office Visit Hematology and Oncology at [place] [phone] Faith Caba MD [facility] DR HEMATOLOGY [place] [address] 11/09/2024 12:00 PM EST Appointment Hematology [place] [phone] Scheduled Procedures Name Priority Associated Diagnoses Date/Ti me EGD, UPPER GI ENDOSCOPY (WRVU 2.09) Gastroesophageal reflux disease with esophagitis, unspecified whether hemorrhage 09/29/2024 4:30 PM EST documented as of this encounter Goals Goal Patient Goal Type Associated Problems Recent Progress Patient-Stated? Author DH Home Medication Compliance and Understanding Patient Facing Action Plan Curly Nicolas, [facility] Note: The patient? s goal is to continue positive results of oral chemotherapy by maintaining improved labs PSA or stable scans in clinic for the upcoming year. documented as of this encounter Visit Diagnoses Not on filedocumented in this encounter Care Teams Director Regulatory Compliance Relationship Specialty Start Date End Date Kennedi Shaver MD [address] [place] [address] PCP - General Family Medicine 08/02/20 06/24/24 documented as of this encounter
--- OUTSIDE RECORDS SUMMARY | 2024-09-11 15:22 | XMS_ITS | Encounter Summary ---
[place] [address] Care Team Providers Care Television Picture Tube Rebuilder Name Role Phone Kennedi Shaver MD Primary Care Provider [phone] Reason for Referral * Diagnostic Test (Routine) - Closed Specialty Diagnoses / Procedures Referred By Contac t Referred To Contact Radiology Diagnoses Neoplasm of prostate, 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 Procedures NM Bone Scan Whole Body Wyatt Barriga PA [facility] [place] [address] [place] [address] Referral ID Status Reason Start Date Expiration Date V isits Requested Visits Authorized [id number] Closed Specialty Service Requested 10/27/2022 04/26/2024 1 1 Reason for Visit * Diagnostic Test (Routine) - Closed Specialty Diagnoses / Procedures Referred By Contac t Referred To Contact Radiology Diagnoses Neoplasm of prostate, 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 Procedures NM Bone Scan Whole Body Wyatt Barriga PA [facility] DR HEMATOLOGY [place] [address] [facility] [place] [address] Referral ID Status Reason Start Date Expiration Date V isits Requested Visits Authorized [id number] Closed Specialty Service Requested 10/27/2022 04/26/2024 1 1 Encounter Details Date Type Department Care Team (Latest Contact Info) Description 11/12/2022 9:40 AM EST - 11/12/2022 12:46 PM [facility] Hospital Encounter [place] [phone] Faith Caba MD [facility] DR HEMATOLOG[place] [address] Neoplasm of prostate, distant metastasis staging category [...] 4:30 PM EST Hospital Encounter [place] [address] Lizet Wilkes MD [facility] [place] [address] 09/29/2024 4:30 PM EST - 09/29/2024 5:00 PM EST Surgery Gastroenterology at [place] [phone] Lizet Wilkes MD [facility] [place] [address] EGD, UPPER GI ENDOSCOPY (WRVU 2.09) 11/09/2024 10:00 AM EST Laboratory Appointment Lab [place] [facility] [place] [address] [place] [phone] 11/09/2024 11:00 AM EST Office Visit Hematology [place] [phone] Faith Caba MD [facility] DR [place] [address] 11/09/2024 12:00 PM EST Appointment Hematology [place] [phone] Scheduled Procedures Name Priority Associated Diagnoses Date/Ti me EGD, UPPER GI ENDOSCOPY (WRVU 2.09) Gastroesophageal reflux disease with esophagitis, unspecified whether hemorrhage 09/29/2024 4:30 PM EST documented as of this encounter Goals Goal Patient Goal Type Associated Problems Recent Progress Patient-Stated? Author [facility] Medication Compliance and Understanding Patient Facing Action Plan Curly Nicolas, [facility] Note: The patient? s goal [...] who have questions please contact the health tire care manager that requested your imaging first. ? Electronically signed by: German Hoffman MD, [facility] ([phone]), at 11/14/2022 10:23 AM Narrative 11/14/2022 10:23 [...] patients who have questions please contactthe health tire care manager that requested your imaging first. 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 Gastroesophageal reflux disease with esophagitis, unspecified whether hemorrhage documented in this encounter Administered Medications Inactive Administered Medications - up to 3 most recent administrations Medication Order MAR Action Action Date Dose Rate Site technetium (Tc-99m) methylene diphosphonate (MDP) injection 0-30 mCi 0-30 mCi, Intravenous, ONCE PRN, 1 dose, Starting on Sat11/12/22 at 1033, Until Sat11/12/22 at 1025, Per Protocol, Radiology Contrast, Routine Given 11/12/2022 10:25 AM EST 24.5 mCi Right Arm documented in this encounter Care Teams Television Picture Tube Rebuilder Relationship Specialty Start Date End Date Kennedi Shaver MD [facility] [address] [place] [address] PCP - General Family Medicine 08/02/20 06/24/24 documented as of this encounter
--- OUTSIDE RECORDS SUMMARY | 2024-09-11 15:22 | XMS_ITS | Encounter Summary ---
[place] [address] Care Team Providers Care Card Tape Converter Operator Name Role Phone Kennedi Shaver MD Primary Care Provider [phone] Reason for Visit * Reason Comments Patient Education Encounter Details Date Type Department Care Team (Late st Contact Info) Description 09/17/2022 Specialty [place] [address] Katalina Barney RPH Social History Tobacco Use [...] Progress Notes * Katalina Barney RPH - 09/17/2022 3:24 PM EST Specialty Pharmacy Consultation; Katalina Barney RPH Comprehensive Medication Management (CMM): Specialty Consult, Opt Out Chidi Lopez Raf Diagnosis: Prostate cancer Therapy Start Date: Contact in person or via telephone: phone Mr. Chidi Carbone is a 76 y.o. (1945) male who was contacted in regard to specialty medication. Spoke with patient regarding Zytiga. A review of [...] patient from the cancer center such as radiology physician consultation or delinquency prevention social worker. Administration, allergies, dosage, safe storage reviewed. The pharmacy's contact information and operating hours with on-call services were given to the patient both verbally and in writing. Economic Assessment: Patient is agreeable to medication copay: Yes Copay Amount: $0 Day Supply: 30 Date Needed: 09/21/22 Therapy Assessment: Appropriate Therapy: Yes Current Medication Dosing/Route/Frequency: Zytiga 1000mg PO QD Additional equipment/supplies required: No Care Plan Reviewed and Approved by Pharmacist : Yes Problem List: Patient Active Problem List Diagnosis Code ??? GERD (gastroesophageal reflux disease) K21.9 ??? 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 Hypertension I10 ??? GI bleed K92.2 ??? Acute blood loss anemia D62 Medications Reviewed: Yes Medications reconciled: No Allergies Reviewed: Yes Allergies reconciled: No Pharmacist follow-up needed: No Informed patient of specialty pharmacy services: Yes Welcome Packet and Rights and Responsibilities: Patient provided welcome packet/rights and responsibilities: Yes -Patient is aware a licensed pharmacist is [...] review and follow up. Katalina Barney RPH 09/27/22 7:14 PM documented in this encounter Plan of Treatment Upcoming Encounters Date Type Department Care Team (Latest Contact Info) Description 09/29/2024 4:30 PM EST Hospital Encounter Gastroenterology at [place] [phone] Lizet Wilkes MD [facility] [place] [address] 09/29/2024 4:30 PM EST - 09/29/2024 5:00 PM EST Surgery [place] [phone] Lizet Wilkes MD [facility] [place] [address] EGD, UPPER GI ENDOSCOPY (WRVU 2.09) 11/09/2024 10:00 AM EST Laboratory Appointment [place] [facility] [place] [address] [place] [phone] 11/09/2024 11:00 AM EST Office Visit Hematology and Oncology at [place] [phone] Faith Caba MD [facility] DR HEMATOLOGY [place] [address] 11/09/2024 12:00 PM EST Appointment Hematology [place] [phone] Scheduled Procedures Name Priority Associated Diagnoses Date/Ti me EGD, UPPER GI ENDOSCOPY (WRVU 2.09) Gastroesophageal reflux disease with esophagitis, unspecified whether hemorrhage 09/29/2024 4:30 PM EST documented as of this encounter Goals Goal Patient Goal Type Associated Problems Recent Progress Patient-Stated? Author DH Home Medication Compliance and Understanding Patient Facing Action Plan No Curly Andres, [facility] Note: The patient? s goal is to continue positive results of oral chemotherapy by maintaining improved labs PSA or stable scans in clinic for the upcoming year. documented as of this encounter Visit Diagnoses Not on filedocumented in this encounter Care Teams Card Tape Converter Operator Relationship Specialty Start Date End Date Kennedi Shaver MD [facility] [address] [facility] [address] [place] [address] PCP - General Family Medicine 08/02/20 06/24/24 documented as of this encounter
--- OUTSIDE RECORDS SUMMARY | 2024-09-11 15:22 | XMS_ITS | Encounter Summary ---
Author Organization [facility] [place] [address] Care Team Providers Care Concrete Vault Maker Name Role Phone Kennedi Shaver MD Primary Care Provider [phone] Reason for Visit * Reason Onset Date Comments Medication Refill 09/11/2022 Encounter Details Date Type Department Care Team (Late st Contact Info) Description 09/11/2022 Refill [place]ematology [place] [phone] Patricia James HORSE IDENTIFIER ROOM Neoplasm of prostate, distant metastasis staging category [...] Telephone Encounter - Patricia James RN - 09/11/2022 10:20 AM EST Message received from Katalina Barney Yan: Mr Carbone's insurance will change next month and he will no longer be able to fill with [facility]. He would like to use our pharmacy if you could send it our way. Script for [email or web address] pended to provider for review, signature and escribe. documented in this encounter Plan of Treatment Upcoming Encounters Date Type Department Care Team (Latest Contact Info) Description 09/29/2024 4:30 PM EST Hospital [place] [phone] Lizet Wilkes MD [facility] [place] [address] 09/29/2024 4:30 PM EST - 09/29/2024 5:00 PM EST [place] [phone] Lizet Wilkes MD [facility] [place] [address] EGD, UPPER GI ENDOSCOPY (WRVU 2.09) 11/09/2024 10:00 AM EST Laboratory Appointment Lab at [facility] Hematology Oncology [address] [place] [phone] 11/09/2024 11:00 AM EST Office Visit [place]ology [place] [phone] Faith Caba MD [facility] DR [place] [address] 11/09/2024 12:00 PM EST Appointment Hematology [place] [phone] Scheduled Procedures Name Priority Associated Diagnoses Date/Ti [...] hemorrhage documented in this encounter Care Teams Concrete Vault Maker Relationship Specialty Start Date End Date Kennedi Shaver MD [address] [place] [address] PCP - General Family Medicine 08/02/20 06/24/24 documented as of this encounter
--- OUTSIDE RECORDS SUMMARY | 2024-09-11 15:22 | XMS_ITS | Encounter Summary ---
[place] [address] Care Team Providers Care Dog Control Officer Name Role Phone Kennedi Shaver MD Primary Care Provider [phone] Reason for Visit * Reason Comments Medication Refill Patient Education Encounter Details Date Type Department Care Team (Late st Contact Info) Description 10/15/2022 Specialty Pharmacy [place] [address] Katalina Barney RPH Social History Tobacco Use [...] Progress Notes * Katalina Barney RPH - 10/15/2022 4:24 PM EST Specialty Pharmacy Consultation; Katalina Barney RPH Comprehensive Medication Management (CMM): Specialty Consult, Opt Out Chidi Carbone Diagnosis: Prostate cancer Therapy Start Date: ~2016 Contact in person or via telephone: phone [...] patient from the cancer center such as automobile service station attendant consultation or social media sr strategy manager. Administration, allergies, dosage, safe storage reviewed. The pharmacy's contact information and operating hours with on-call services were given to the patient both verbally and in writing. Economic Assessment: Patient is agreeable to medication copay: Yes Copay Amount: $0 Day Supply: 30 Date Needed: 10/23/22 Therapy Assessment: Appropriate Therapy: Yes Current Medication [...] review and follow up. Katalina Barney RPH 10/15/22 5:35 PM documented in this encounter Plan of Treatment Upcoming Encounters Date Type Department Care Team (Latest Contact Info) Description 09/29/2024 4:30 PM EST Hospital Encounter Gastroenterology at [place] [phone] Lizet Wilkes MD [facility] [address] 09/29/2024 4:30 PM EST - 09/29/2024 5:00 PM EST Surgery [place] [phone] Lizet Wilkes MD [facility] [address] EGD, UPPER GI ENDOSCOPY (WRVU 2.09) 11/09/2024 10:00 AM EST Laboratory Appointment Lab [place] [facility] [place] [address] [place] [phone] 11/09/2024 11:00 AM EST Office Visit Hematology and Oncology at [place] [phone] Faith Caba MD [facility] [place] [address] 11/09/2024 12:00 PM EST Appointment Hematology [place] [phone] Scheduled Procedures Name Priority Associated Diagnoses Date/Ti [...] on filedocumented in this encounter Care Teams Dog Control Officer Relationship Specialty Start Date End Date Kennedi Shaver MD [facility] [address] [facility] [address] [place] [address] PCP - General Family Medicine 08/02/20 06/24/24 documented as of this encounter
--- OUTSIDE RECORDS SUMMARY | 2024-09-11 15:22 | XMS_ITS | Encounter Summary ---
Author Organization [facility] [place] [address] Care Team Providers Care Odd Piece Checker Name Role Phone Kennedi Shaver MD Primary Care Provider [phone] Encounter Details Date Type Department Care Team (Latest Contact Info) Description 11/08/2022 Travel Social History Tobacco Use Types Packs/Day [...] 4:30 PM EST Hospital Encounter [place] [address] Lizet Wilkes MD [facility] [place] [address] 09/29/2024 4:30 PM EST - 09/29/2024 5:00 PM EST Surgery [place] [address] Lizet Wilkes MD [facility] [place] [address] EGD, UPPER GI ENDOSCOPY (WRVU 2.09) 11/09/2024 10:00 AM EST Laboratory Appointment Lab at [facility] Hematology Oncology [address] [place] [address] 11/09/2024 11:00 AM EST Office Visit Hematology and Oncology at [place] [address] Faith Caba MD [facility] [place] [address] 11/09/2024 12:00 PM EST Appointment Hematology and Oncology at [place] [address] Scheduled Procedures Name Priority Associated Diagnoses Date/Ti me EGD, UPPER GI ENDOSCOPY (WRVU 2.09) Gastroesophageal reflux disease with esophagitis, unspecified whether hemorrhage 09/29/2024 4:30 PM EST documented as of this encounter Goals Goal Patient Goal Type Associated Problems Recent Progress Patient-Stated? Author [facility] Medication Compliance and Understanding Patient Facing Action Plan Curly Nicolas, [facility] Note: The patient? s goal is to continue positive results of oral chemotherapy by maintaining improved labs PSA or stable scans in clinic for the upcoming year. documented as of this encounter Visit Diagnoses Not on filedocumented in this encounter Care Teams Odd Piece Checker Relationship Specialty Start Date End Date Kennedi Shaver MD [facility] [address] [place] [address] PCP - General Family Medicine 08/02/20 06/24/24 documented as of this encounter
--- OUTSIDE RECORDS SUMMARY | 2024-09-11 15:22 | XMS_ITS | Encounter Summary ---
Author Organization [facility] [place] [address] Care Team Providers Care Studio Data Analyst Name Role Phone Kennedi Shaver MD Primary Care Provider [phone] Reason for Referral * Consultation (Routine) - Closed Specialty Diagnoses / Procedures Referred By Blaine peralta Referred To Contact General Surgery Diagnoses Primary osteoarthritis of both knees Mildred Flowers APRN [address] [place] [address] [place] [address] [facility] [place] [facility] [address] [place] [address] Referral ID Status Reason Start Date Expiration Date V isits Requested Visits Authorized [id number] Closed Consult, Test & Treat 11/08/2022 11/08/2023 1 1 Encounter Details Date Type Department Care Team (Latest Contact Info) Description 11/08/2022 3:00 PM EST Clinical [place] [address] Primary osteoarthritis of both knees (Primary Dx) Social History Tobacco Use Types Packs/Day Years [...] as of this encounter Progress Notes * Reynaldo Drew RN - 11/08/2022 3:00 PM EST PAT questionnaire reviewed with patient while in Pre Admission testing. Pre- operative instruction booklet reviewed. Patient verbalizes a good understanding of all information reviewed. PLAN: Testing: Labs EKG Special medication instructions: Per ortho, instructions were provided. Clearfast 1 bottle given to patient with instructions to drink 3 hours prior to surgery. Procedure date: 11/28/22 Julio Melissa MD Preoperative Geriatric Vulnerability Screen: Surgery Details: Surgeon: Julio Melissa MD Planned Procedure: TOTAL KNEE ARTHROPLASTY (WRVU 20.72), MODIFIER,GMK SPHERE EFFICIENCY CR KNEE,MEDACTA Date of Planned Procedure: 11/28/2022 Final Risk Assessment: Is the patient high risk?: Yes Screening Results: Age >= 85: No Impaired Cognition per Mini-Cog: No Impaired Cognition per AD8: No Frailty Screen: Positive Impaired Mobility: Yes Delirium Risk: Cognitive Impairment / Frailty Screen Positive in Clinic Impaired Functional Status: Yes, partially impaired/dependent Malnutrition: No Difficulty Swallowing: No Palliative Care Consult may be indicated: Not assessed Additional Notes/Comments: Patient would like to speak with surgeon again: No @[email or web address]@@NOTEBPA([id number])@ documented in this encounter Plan of Treatment Upcoming Encounters Date Type Department Care Team (Latest Contact Info) Description 09/29/2024 4:30 PM EST Hospital Encounter [place] [address] Lizet Wilkes MD [facility] [place] [address] 09/29/2024 4:30 PM EST - 09/29/2024 5:00 PM EST Surgery [place] [address] Lizet Wilkes MD [facility] [place] [address] EGD, UPPER GI ENDOSCOPY (WRVU 2.09) 11/09/2024 10:00 AM EST Laboratory Appointment Lab at [facility] Hematology Oncology [address] [place] [phone] 11/09/2024 11:00 AM EST Office Visit Hematology [place] [phone] Faith Caba MD [facility] DR [place]EMATOLOG[place] [address] 11/09/2024 12:00 PM EST Appointment Hematology [place] [phone] Scheduled Procedures Name Priority Associated Diagnoses Date/Ti me EGD, UPPER GI ENDOSCOPY (WRVU 2.09) Gastroesophageal reflux disease with esophagitis, unspecified whether hemorrhage 09/29/2024 4:30 PM EST Scheduled Referrals Name Type Priority Associated Diagnoses Orde r Schedule Amb Referral to Geriatric Surgery Program Outpatient Referral Routine Primary osteoarthritis of both knees Ordered: 11/08/2022 documented as of this encounter Goals Goal [...] Procedure Name Priority Date/Time Associated Diagnosis Comments EKG 12-LEAD Routine 11/08/2022 3:02 PM EST Primary osteoarthritis of both knees documented in this encounter Results * EKG 12 Lead (11/08/2022 3:02 PM EST) Ventricular rate 66 BPM MUSE SYSTEM Atrial Rate 66 BPM MUSE SYSTEM P-R Interval 182 ms MUSE SYSTEM QRS Duration 82 ms MUSE SYSTEM Q-T Interval 408 ms MUSE SYSTEM QTC Calculated (Bezet) 427 ms MUSE SYSTEM Calculated P [place] 27 degrees MUSE SYSTEM Calculated R [place] -14 degrees MUSE SYSTEM Calculated T M[place] 15 degrees MUSE SYSTEM INTERPRETATION Normal sinus rhythm Minimal voltage criteria for LVH, may be normal variant ( R in aVL ) Borderline ECG When compared with ECG of 14-AUG-2022 11:47, Premature ventricular complexes are no longer Present Confirmed by Thanh Andre ([id number]) on 11/09/2022 4:33:51 PM MUSE SYSTEM 11/08/2022 3:02 PM EST 11/09/2022 4:33 PM EST Julio Melissa MD ECG ORDERABLES MUSE SYSTEM documented in this encounter Visit Diagnoses Diagnosis Primary osteoarthritis of both knees- Primary Primary localized osteoarthrosis, lower leg Gastroesophageal reflux disease with esophagitis, unspecified whether hemorrhage documented in this encounter Care Teams Studio Data Analyst Relationship Specialty Start Date End Date Kennedi Shaver MD [address] [place], [place] [address]Y [address] [place] [address] PCP - General Family Medicine 08/02/20 06/24/24 documented as of this encounter
--- OUTSIDE RECORDS SUMMARY | 2024-09-11 15:22 | XMS_ITS | Encounter Summary ---
Author Organization [facility] [place] [address] Care Team Providers Care Workforce Development Program Director Name Role Phone Kennedi Shaver MD Primary Care Provider [phone] Reason for Referral * Physical Therapy (Routine) - Closed Specialty Diagnoses / Procedures Referred By Blaine peralta Referred To Contact Physical Therapy Diagnoses Primary osteoarthritis of both knees Julio Melissa MD [facility] [place] [address] Rehab, [facility] [address] [place] [address] Referral ID Status Reason Start Date Expiration Date V isits Requested Visits Authorized [id number] Closed Evaluate and Treat 11/08/2022 05/07/2023 12 12 Encounter Details Date Type Department Care Team (Latest Contact Info) Description 11/08/2022 1:00 PM EST [place] [address] Julio Melissa MD Primary osteoarthritis of both knees Social History [...] Sign Reading Time Taken Comments Blood Pressure 152/79 11/08/2022 1:10 PM EST Pulse 89 11/08/2022 1:10 PM EST Temperature - - Respiratory Rate - - Oxygen Saturation 96% 11/08/2022 1:10 PM EST Inhaled Oxygen Concentration - - Weight 79.8 kg (176 lb) 11/08/2022 1:10 PM EST Height 179.1 cm (5' 10.5) 11/08/2022 1:10 PM ES T Body Mass Index 24.9 11/08/2022 1:10 PM EST documented in this encounter Progress Notes * Julio Melissa MD - 11/08/2022 1:00 PM EST Arthroplasty History/Previous Orthopaedic Surgery: 1. None This note is recorded by Ayde Beth RN acting as a scribe for Dr. Aletha Melissa. PREOPERATIVE VISIT Interval History: Chidi Carbone is a pleasant 76 y.o. year old male being seen today to discuss a right total kneereplacement. His history was once again discussed and is outlined in a previous note. They have reviewed their options and at this point are expressing a desire to proceed with surgery. Physical Exam: Exam is previously documented in a note and is essentially unchanged. Knee Exam: Range of motion 5 degrees from full extension to 100 o. Inspection of his skin on the operative side demonstrates No skin breakdown or open wounds. Significant Medical Comorbidities Patient Active Problem List Diagnosis Code ??? GERD (gastroesophageal reflux disease) K21.9 ??? 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 Hypertension I10 ??? GI bleed K92.2 ??? Acute blood loss anemia D62 VITALS: BP Readings from Last 1 Encounters: 11/08/22 152/79 Pulse Readings from Last 1 Encounters: 11/08/22 89 Height: 179.1 cm (5' 10.5) Weight: 79.8 kg (176 lb) Body mass index is 24.9 kg/m??. Relevant Lab Studies Lab Results Component Value Date WBC 6.0 11/08/2022 HGB 10.2 (L) 11/08/2022 HCT 33.1 (L) 11/08/2022 PLATELET 287 11/08/2022 CREATININE 0.94 11/08/2022 BUN 21 (H) 11/08/2022 NA 142 11/08/2022 K 4.5 11/08/2022 INR 1.1 11/08/2022 No results for input(s): HA1C in the last 7068 hours. No results for input(s): ALBUMIN in the last 168 hours. Estimated Creatinine Clearance: 69.1 mL/min (based on SCr of 0.94 mg/dL). TJA Clotting and Bleeding Assessment Genetic predisposition or history of DVT or PE: No Hypercoaguable state?: No History of bleeding disorder?: No GI bleed or history of hemorrhagic stroke within the past 2 years: Yes (GI Bleed at [facility]) Patient on lifelong anticoagulant for other reasons: No Discharge anticoagulation plan: ASA 81mg BID for 30 days Infection Prevention Patient demonstrated appropriate skin integrity/infection knowledge level after instructions provided: Yes Patient demonstrated appropriate dental prophylaxis knowledge level after instructions provided: Yes Patient demonstrated appropriate understanding of chlorhexideine wash and mupirocin ointment: Yes General Assessment Total joint preparedness for surgery: 1:1, Force Online Patient understands when to call the office pre-op and post-op: Verbalizes understanding Assistive device(s) used pre-op: Other (see comments) (Snake Cane) Patient currently on narcotics: No Patient has narcotic agreement signed: No Assessment and Plan: This is a pleasant 76 y.o. year-old male who presents for a preoperative appointment today for consideration of a right total knee replacement. We had a discussion regarding the risks and benefits ofsurgery. I indicated that in my opinion, this is a treatment option most likely to restore a more normal, pain- free level of function and that we have exhausted reasonable non-operative alternatives.I discussed how I perform the procedure and all of their questions were answered. We discussed the risks of a total knee arthroplasty: Bleeding, infection, scar formation, dislocation, leg length inequality, persistent pain, stiffness, bursitis, failure/wear/loosening/breakage of implants, implant malposition, need for additional/future surgery, fracture, clot formation, embolus, stroke, nerve palsy, blood vessel injury, skin numbness, anesthetic and/or medical complications, . We reviewed options for postoperative DVT prophylaxis, based on AAOS guidelines. We discussed the pros and cons of different anticoagulants in terms of effectiveness and clot / embolus preventions vs. risks of bleeding and wound complications. We also reviewed their preferences regarding use of blood products and confirmed that while we would endeavor to minimize the risks of needing any transfusions, if circumstances were such that one ormore were indeed required, he would NOT refuse a blood transfusion. Chidi Carbone will be prescribed a prescription opioid for the treatment of acute post-operativepain related to orthopedic surgery. Chidi Carbone was advised to take the smallest dose possibleto control their pain and as their pain improves to take smaller doses and increase the time between doses. The Acute Opioid Therapy Informed Consent form has been completed and sent to medical records for scanning to chart. Opioid Risk Assessment 11/08/2022 DAST-10 Risk Assessment None (0) Some recent data might be hidden Opioid PDMP 11/08/2022 05/29/2019 [place] PDMP Query Date 11/08/2022 06/04/2019 [place] PDMP Query Date 11/08/2022 06/04/2019 [place] PDMP Query Date 11/08/2022 - In addition to this medication, non-opioid medications will be prescribed for adjunct treatment of their pain. Non-pharmacological treatment such as ice, elevation and activity modification was recommended as appropriate. Chidi Carbone was instructed to administer Mupirocin into the nares twice daily starting 5 days prior to surgical date. Additional instructions were given to him at the time the medication was dispensed. He was also given chlorhexidine soap to use the night before and the morning of surgery. We discussed with the patient the possible discharge scenarios. The patient will require VNA services post-op: no, patient will discharge home with outpatient PT scheduled within 3-5 days post operatively. Prep for Surgery Advance Directive: Has one (on file in [facility]D-[facility]) Recommend referral to Patient Financial Services: No Living arrangement: House Home layout: Multi-level, Stairs to enter w/ rails, Able to live on main level Number of stairs within home: 13 Who will provide post-op care and support: Daughter, , and Sister Who will provide transportation home: Daughter (Mukesh) Patient's desired discharge disposition: Home Outpatient PT preference: TBD Discharge barriers and challenges: None The patient prefers two-wheeled walker to help with post-operative ambulation. A DME order has beenplaced. Recommendations from perioperative orthopaedic providers: Pending Note Post operative orthopaedic anti-coagulation plan: ASA 81 mg BID for 30 days Chronic anti-coagulation: no Does patient have metal allergy? No Expedited Discharge Candidate?: NO We will avoid discharge on Naprosyn secondary to concern for potential adverse events due to recentGI Bleed Any remaining questions were solicited from the patient and answered. Mr. Carbone wishes to proceedaccordingly and informed consent was subsequently obtained for a right total knee replacement. I have personally evaluated the patient and agree with the above note as recorded by NUZHAT Weiss MD 11/10/2022 documented in this encounter Plan of Treatment Upcoming Encounters Date Type Department Care Team (Latest Contact Info) Description 09/29/2024 4:30 PM EST Hospital En[place] [phone] Lizet Wilkes MD [facility] [place] [address] 09/29/2024 4:30 PM EST - 09/29/2024 5:00 PM EST [place] [address] Lizet Wilkes MD [facility] [place] [address] EGD, UPPER GI ENDOSCOPY (WRVU 2.09) 11/09/2024 10:00 AM EST Laboratory Appointment Lab at [facility] Hematology Oncology [address] [place] [phone] 11/09/2024 11:00 AM EST Office Visit [place] [address] Faith Caba MD [facility] [place] [address] 11/09/2024 12:00 PM EST Appointment Hematology [place] [address] Scheduled Procedures Name Priority Associated Diagnoses Date/Ti me EGD, UPPER GI ENDOSCOPY (WRVU 2.09) Gastroesophageal reflux disease with esophagitis, unspecified whether hemorrhage 09/29/2024 4:30 PM EST Scheduled Referrals Name Type Priority Associated Diagnoses Orde r Schedule Referral to Physical Therapy Outpatient Referral Routine Primary osteoarthritis of both [...] as of this encounter Visit Diagnoses Diagnosis Primary osteoarthritis of both knees Primary localized osteoarthrosis, lower leg Gastroesophageal reflux disease with esophagitis, unspecified whether hemorrhage documented in this encounter Administered Medications Inactive Administered Medications - up to 3 most recent administrations Medication Order MAR Action Action Date Dose Rate Site mupirocin (Bactroban) 2 % ointment 1 each 1 each, Topical (Top), 2 TIMES DAILY, First dose on Yudi 11/08/22 at 1345, 10 doses, Last dose on Sat11/12/22 at 2100, Apply two times daily to nares for 5 days prior to surgery Given 11/08/2022 1:24 PM EST 1 each documented in this encounter Care Teams Workforce Development Program Director Relationship Specialty Start Date End Date Kennedi Shaver MD [address] [place] [address] PCP - General Family Medicine 08/02/20 06/24/24 documented as of this encounter
--- OUTSIDE RECORDS SUMMARY | 2024-09-11 15:22 | XMS_ITS | Encounter Summary ---
Author Organization [facility]ly [facility] [place] [address] Care Team Providers Care Tankage Grinder Operator Name Role Phone Kennedi Shaver MD Primary Care Provider [phone] Encounter Details Date Type Department Care Team (Latest Contact Info) Description 11/08/2022 2:40 PM EST Laboratory [place] [address] Primary osteoarthritis of both knees; Pain of right lower extremity ; Encounter for long-term (current) use of medications ; Preop examination; Osteoarthritis of right knee, unspecified osteoarthritis type Social History Tobacco Use [...] 4:30 PM EST Hospital Encounter [place] [address] Lizet Wilkes MD [facility] [place] [address] 09/29/2024 4:30 PM EST - 09/29/2024 5:00 PM EST Surgery [place] [phone] Lizet Wilkes MD [facility] [place] [address] EGD, UPPER GI ENDOSCOPY (WRVU 2.09) 11/09/2024 10:00 AM EST Laboratory Appointment Lab at [facility] Hematology Oncology [address] [place] [phone] 11/09/2024 11:00 AM EST Office Visit Hematology [place] [phone] Faith Caba MD [facility] [place] [address] 11/09/2024 12:00 PM EST Appointment Hematology [place] [phone] Scheduled Procedures Name Priority Associated Diagnoses Date/Ti me EGD, UPPER GI ENDOSCOPY (WRVU 2.09) Gastroesophageal reflux disease with esophagitis, unspecified whether hemorrhage 09/29/2024 4:30 PM EST documented as of this encounter Goals Goal Patient Goal Type Associated Problems Recent Progress Patient-Stated? Author [facility] Medication Compliance and Understanding Patient Facing Action Plan Curly Nicolas, [facility] Note: The patient? s goal is to continue positive results of oral chemotherapy by maintaining improved labs PSA or stable scans in clinic for the upcoming year. documented as of this encounter Procedures Procedure Name Priority Date/Time Associated Diagnosis Comments HEMOGRAM Routine 11/08/2022 2:54 PM EST Primary osteoarthritis of both knees Encounter for long-term (current) use of medications DIFFERENTIAL, AUTOMATED Routine 11/08/2022 2:54 PM EST Primary osteoarthritis of both knees Encounter for long-term (current) use of medications HC PARTIAL THROMBOPLASTIN TIME Routine 11/08/2022 2:54 PM EST Primary osteoarthritis of both knees HC PROTHROMBIN TIME Routine 11/08/2022 2 :54 PM EST Primary osteoarthritis of both knees Pain of right lower extremity RETICULOCYTE COUNT Routine 11/08/2022 2: 54 PM EST HC CBC,PLT & AUTO DIFF Routine 2:54 PM EST Primary osteoarthritis of both knees Encounter for long-term (current) use of medications BASIC METABOLIC PANEL Routine 11/08/2022 2:54 PM EST Primary osteoarthritis of both knees documented in this encounter Results * (ABNORMAL) Reticulocyte Count (11/08/2022 2:54 PM EST) Reticulocyte % 0.6(L) 0.7 - 2.6 % [facility] Retic Abs # 0.030 0.030 - 0.120 x10(6)/mcL [facility] Immature Retic% 5.9 0.0 - 15.6 % [facility] Reticulated Hgb 22.6(L) 31.3 - 40.2 pg [facility] Blood Venous Draw / Unknown 11/08/2022 2:54 PM EST 11/08/2022 3:20 PM EST Narrative Resulting Agency Comment Spec In Lab Mendez LEE HEMATOLOGY ORDERABLE S [facility] [place] [address] * (ABNORMAL) Differential, Automated (11/08/2022 2:54 PM EST) Neutrophil % 75.5 % [facility] Neutrophil Absolute 4.54 1.70 - 6.10 x10(3)/mc L [facility] Lymph % 13.8 % [facility] Lymphocytes Abs 0.8(L) 0.9 - 3.2 x10(3)/mc L [facility] Monocyte % 9.8 % [facility] Monocyte Abs 0.6 0.3 - 0.9 x10(3)/ L [facility] Eos % 0.2 % [facility] Eosinophils Abs 0.0 0.0 - 0.4 x10(3)/[facility] Basophil % 0.5 % [facility] Baso Absolute 0.0 0.0 - 0.1 x10(3)/[facility] Immature Gran % 0.20 % [facility] Comment: Immature granulocytes(IG's)percentage and absolute count will include metamyelocytes, myelocytes, and promyelocytes. Blood smears from CBCs yielding IG's will be scanned manually for concordance. If this scan disagrees with the automated IG or if promyelocytes are noted, a manual differential will be performed. Immature Gran Absolute 0.01 0.00 - 0.04 x10(3)/[facility] Blood 11/08/2022 2:54 PM EST 11/08/2022 3:20 PM EST Narrative Resulting Agency Comment Spec In Lab Julio Melissa MD HEMATOLOGY ORDERABLE S [facility] [place] [address] * (ABNORMAL) Hemogram (11/08/2022 2:54 PM EST) White Blood Cell 6.0 4.0 - 9.5 x10(3)/ L [facility] Red Blood Cell 4.11(L) 4.58 - 5.54 x10(6)/[facility] Hemoglobin 10.2(L) 13.7 - 16.5 g/dL [facility] Hematocrit 33.1(L) 40.5 - 48.5 % [facility] Mean Cell Volume 80.5(L) 82.9 - 93.1 fL [facility] Mean Cell Hemoglobin 24.8(L) 27.5 - 32.1 pg [facility] Mean Cell Hemoglobin Concentration 30.8(L) 32.0 - 35.7 g/dL [facility] Platelet 287 145 - 357 x10(3)/mc L [facility] RDW Standard Deviation 44.9 36.0 - 45.0 fL [facility] RDW coefficient of variation 15.3(H) 11.4 - 13.8 % [facility] Mean Platelet Volume 10.1 7.6 - 12.9 fL [facility] NRBC% auto 0.0 % [facility] NRBC Absolute 0.000 0.000 - 0.000 x10(3)/mc L [facility] Blood 11/08/2022 2:54 PM EST 11/08/2022 3:20 PM EST Narrative Resulting Agency Comment Spec In Lab Julio Melissa MD HEMATOLOGY ORDERABLE S Performing Organization Address City/State/[facility] Co de Phone Number [facility] [place] [address] * (ABNORMAL) Basic Metabolic Panel (non-fasting) (11/08/2022 2:54 PM EST) Glucose 98 65 - 199 mg/dL [facility] Comment:Diabetes: >=200 mg/d L plus symptoms Blood Urea Nitrogen 21(H) 10 - 20 mg/dL [facility] Creatinine 0.94 0.80 - 1.50 mg/dL [facility] Sodium 142 135 - 145 mmol/L [facility] Potassium 4.5 3.5 - 5.0 mmol/L [facility] Comment: Please note: ??Patients with WBC >100,000 may have falsely elevated Potassium levels. ??For accurate Potassium quantification in these patients send serum separator tube (gold top) for subsequent determinations. ??Contact the Clinical Chemistry Laboratory if there are any questions. Chloride 108(H) 98 - 107 mmol/L [facility] Carbon Dioxide 21(L) 22 - 31 mmol/L [facility] Anion Gap 13 5 - 15 mmol/L [facility] Calcium 9.1 8.5 - 10.5 mg/dL [facility] Est Glomerular Filtration Rate 83 >=60 mL/min/1. 73 m?? [facility] Comment: This patient's estimated GFR [...] and symptoms in addition to eGFR. Blood 11/08/2022 2:54 PM EST 11/08/2022 3:20 PM EST Narrative Resulting Agency Comment Spec In Lab Julio Melissa MD CHEMISTRY ORDERABLES Performing Organization Address [facility] Co de Phone Number [facility] [place] [address] * Prothrombin Time (11/08/2022 2:54 PM EST) Prothrombin Time 12.1 9.4 - 12.5 sec [facility] International Normalization Ratio 1.1 [facility] Comment: An INR <2.0 indicates adequate procoagulant activity for hemostasis in most patients without underlying bleeding disorders, though the INR may not adequately reflect hemostatic capacity in patients with liver disease and synthetic impairment. The recommended target INR range for therapeutic anticoagulation is 2.0 ? 3.0 for most applications, though lower and higher ranges may be appropriate depending on clinical circumstances. Blood 11/08/2022 2:54 PM EST 11/08/2022 3:20 PM EST Narrative Resulting Agency Comment Spec In Lab Julio Melissa MD HEMATOLOGY ORDERABLE S Performing Organization Address [facility] Co de Phone Number [facility] [place] [address] * APTT (11/08/2022 2:54 PM EST) Partial Thromboplastin Time 32 25 - 37 sec [facility] Comment: The PTT is NOT appropriate for heparin monitoring. Use the Anti-Xa level for heparin monitoring (HEP UFH) or LMWH monitoring (HEP LMW). A PTT less than 37 seconds generally indicates adequate hemostasis. Blood 11/08/2022 2:54 PM EST 11/08/2022 3:20 PM EST Narrative Resulting Agency Comment Spec In Lab Julio Melissa MD HEMATOLOGY ORDERABLE S [facility] [place] [address] documented in this encounter Visit Diagnoses Diagnosis Primary osteoarthritis of both knees Primary localized osteoarthrosis, lower leg Pain of right lower extremity Encounter for long-term (current) use of medications Encounter for long-term (current) use of other medications Preop examination Preoperative examination, unspecified Osteoarthritis of right knee, unspecified osteoarthritis type Gastroesophageal reflux disease with esophagitis, unspecified whether hemorrhage documented in this encounter Care Teams Tankage Grinder Operator Relationship Specialty Start Date End Date Kennedi Shaver MD [address] [place] [address] PCP - General Family Medicine 08/02/20 06/24/24 documented as of this encounter
--- OUTSIDE RECORDS SUMMARY | 2024-09-11 15:22 | XMS_ITS | Encounter Summary ---
Author Organization [facility] [place] [address] Care Team Providers Care Analyst Name Role Phone Kennedi Shaver MD Primary Care Provider [phone] Encounter Details Date Type Department Care Team (Latest Contact Info) Description 10/16/2022 Travel Social History Tobacco Use Types Packs/Day [...] 4:30 PM EST Hospital [place] [phone] Lizet Wilkes MD [facility] [place] [address] 09/29/2024 4:30 PM EST - 09/29/2024 5:00 PM EST [place] [phone] Lizet Wilkes MD [facility] [place] [address] EGD, UPPER GI ENDOSCOPY (WRVU 2.09) 11/09/2024 10:00 AM EST Laboratory Appointment Lab at [facility] [place] Hematology Oncology [address] [place] [address] 11/09/2024 11:00 AM EST Office Visit Hematology and Oncology at [place] [address] Faith Caba MD [facility] DR HEMATOLOGY [place] [address] 11/09/2024 12:00 PM EST Appointment Hematology and Oncology at [place] [address] Scheduled Procedures Name Priority Associated Diagnoses Date/Ti me EGD, UPPER GI ENDOSCOPY (WRVU 2.09) Gastroesophageal reflux disease with esophagitis, unspecified whether hemorrhage 09/29/2024 4:30 PM EST documented as of this encounter Goals Goal Patient Goal Type Associated Problems Recent Progress Patient-Stated? Author [facility] Medication Compliance and Understanding Patient Facing Action Plan Curly Nicolas, [facility] Note: The patient? s goal is to continue positive results of oral chemotherapy by maintaining improved labs PSA or stable scans in clinic for the upcoming year. documented as of this encounter Visit Diagnoses Not on filedocumented in this encounter Care Teams Analyst Relationship Specialty Start Date End Date Kennedi Shaver MD [facility] [address] [place] [address] PCP - General Family Medicine 08/02/20 06/24/24 documented as of this encounter
--- OUTSIDE RECORDS SUMMARY | 2024-09-11 15:22 | XMS_ITS | Encounter Summary ---
Author Organization [facility] [place] [address] Care Team Providers Care Clin Nurse Spec Name Role Phone Kennedi Shaver MD Primary Care Provider [phone] Encounter Details Date Type Department Care Team (Latest Contact Info) Description 10/16/2022 8:46 AM EST - 10/16/2022 11:59 PM EST Hospital Encounter Hematology [place] [address] Neoplasm of prostate, distant metastasis staging category [...] daily as needed for Constipation. 12/20/2022 01/24/2023 abiraterone (Zytiga) 500 mg TabletIndications:Neopl asm of [...] 4:30 PM EST Hospital Encounter [place] [phone] Lizet Wilkes MD [facility] [place] [address] 09/29/2024 4:30 PM EST - 09/29/2024 5:00 PM EST Surgery [place] [phone] Lizet Wilkes MD [facility] [place] [address] EGD, UPPER GI ENDOSCOPY (WRVU 2.09) 11/09/2024 10:00 AM EST Laboratory Appointment Lab at [facility] Hematology Oncology [address] [place] [phone] 11/09/2024 11:00 AM EST Office Visit Hematology [place] [phone] Faith Caba MD [facility] [place] [address] 11/09/2024 12:00 PM EST Appointment Hematology [place] [phone] Scheduled Procedures Name Priority Associated Diagnoses Date/Ti co EGD, UPPER GI ENDOSCOPY (WRVU 2.09) Gastroesophageal [...] Priority Date/Time Associated Diagnosis Comments HEMOGRAM Routine 10/16/2022 9:01 AM EST Neoplasm of prostate, 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 DIFFERENTIAL, AUTOMATED Routine 10/16/2022 9:01 AM EST Neoplasm of prostate, 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 HC CBC,PLT & AUTO DIFF Routine 9:01 AM EST Neoplasm of prostate, 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 HC PROSTATE SPECIFIC ANTIGEN Routine 10/16/2022 9:01 AM EST Neoplasm of prostate, 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 COMPREHENSIVE METABOLIC PANEL Routine 10/16/2022 9:01 AM EST Neoplasm of prostate, 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 documented in this encounter Results * Differential, Automated (10/16/2022 9:01 AM EST) Neutrophil % 60.8 % [facility] Neutrophil Absolute 4.28 1.70 - 6.10 x10(3)/[facility] Lymph % 21.9 % [facility] Lymphocytes Abs 1.5 0.9 - 3.2 x10(3)/[facility] Monocyte % 12.2 % [facility] Monocyte Abs 0.9 0.3 - 0.9 x10(3)/[facility] Eos % 4.1 % [facility] Eosinophils Abs 0.3 0.0 - 0.4 x10(3)/[facility] Basophil % 0.7 % [facility] Baso Absolute 0.0 0.0 - 0.1 x10(3)/[facility] Immature Gran % 0.30 % [facility] Comment: Immature granulocytes(IG's)percentage and absolute count will include metamyelocytes, myelocytes, and promyelocytes. Blood smears from CBCs yielding IG's will be scanned manually for concordance. If this scan disagrees with the automated IG or if promyelocytes are noted, a manual differential will be performed. Immature Gran Absolute 0.02 0.00 - 0.04 x10(3)/mcL [facility] Blood 10/16/2022 9:01 AM EST 10/16/2022 9:04 AM EST Narrative Resulting Agency Comment Spec In Lab Donna Bermudez APRN HEMATOLOGY ORDERABLE S Performing Organization Address City/[facility]/ZIP Co de Phone Number [facility] [place] [address] * (ABNORMAL) Hemogram (10/16/2022 9:01 AM EST) White Blood Cell 7.0 4.0 - 9.5 x10(3)/mc L [facility] Red Blood Cell 4.07(L) 4.58 - 5.54 x10(6)/mc L [facility] Hemoglobin 10.3(L) 13.7 - 16.5 g/dL [facility] Hematocrit 33.3(L) 40.5 - 48.5 % [facility] Mean Cell Volume 81.8(L) 82.9 - 93.1 fL [facility] Mean Cell Hemoglobin 25.3(L) 27.5 - 32.1 pg [facility] Mean Cell Hemoglobin Concentration 30.9(L) 32.0 - 35.7 g/dL [facility] Platelet 279 145 - 357 x10(3)/mc L [facility] RDW Standard Deviation 41.9 36.0 - 45.0 fL [facility] RDW coefficient of variation 14.2(H) 11.4 - 13.8 % [facility] Mean Platelet Volume 9.3 7.6 - 12.9 fL [facility] NRBC% auto 0.0 % [facility] NRBC Absolute 0.000 0.000 - 0.000 x10(3)/mc L [facility] Blood 10/16/2022 9:01 AM EST 10/16/2022 9:04 AM EST Narrative Resulting Agency Comment Spec In Lab Donna Bermudez APRN HEMATOLOGY ORDERABLE S Performing Organization Address City/[facility]/ZIP Co de Phone Number [facility] [place] [address] * PSA (Ultrasensitive) (10/16/2022 9:01 AM EST) Prostate Specific Antigen (Ultrasensitive) <0.01 0.00 - 4.00 ng/mL [facility] Comment: PLEASE NOTE: The above reference interval is intended for healthy males with an intact prostate. Values within this reference interval may indicate recurrence in men who have undergone radical prostatectomy. This result was generated using a Kenneth Paz immunoassay. ??Results obtained from other methods or manufacturers cannot be used interchangeably with this method. Blood 10/16/2022 9:01 AM EST 10/16/2022 9:04 AM EST Narrative Resulting Agency Comment Spec In Lab Donna Bermudez APRN CHEMISTRY ORDERABLES [facility] [place] [address] * Comprehensive metabolic panel (non-fasting) (10/16/2022 9:01 AM EST) Glucose 108 65 - 199 mg/dL [facility] Comment:Diabetes: >=200 mg/d L plus symptoms Blood Urea Nitrogen 16 10 - 20 mg/dL [facility] Creatinine 0.87 0.80 - 1.50 mg/dL [facility] Sodium 142 135 - 145 mmol/L [facility] Potassium 4.1 3.5 - 5.0 mmol/L [facility] Comment: Please note: ??Patients with WBC >100,000 may have falsely elevated Potassium levels. ??For accurate Potassium quantification in these patients send serum separator tube (gold top) for subsequent determinations. ??Contact the Clinical Chemistry Laboratory if there are any questions. Chloride 106 98 - 107 mmol/L [facility] Carbon Dioxide 26 22 - 31 mmol/L [facility] Anion Gap 10 5 - 15 mmol/L [facility] Calcium 9.3 8.5 - 10.5 mg/dL [facility] Protein, Total 6.5 6.1 - 8.0 g/dL [facility] Albumin 4.2 3.2 - 5.2 g/dL [facility] Aspartate Aminotransferase 15 0 - 39 unit/L [facility] Alanine Aminotransferase 9 0 - 55 unit/L [facility] Alkaline Phosphatase 95 40 - 130 unit/L [facility] Bilirubin, Total 0.5 0.2 - 1.3 mg/dL [facility] Est Glomerular Filtration Rate 89 >=60 mL/min/1. 73 m?? [facility] Comment: This patient's estimated GFR was [...] and symptoms in addition to eGFR. Blood 10/16/2022 9:01 AM EST 10/16/2022 9:04 AM EST Narrative Resulting Agency Comment Spec In Lab Donna Bermudez APRN CHEMISTRY ORDERABLES [facility] [place] [address] documented in this encounter Visit Diagnoses Diagnosis Neoplasm of prostate, 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 Gastroesophageal reflux disease with esophagitis, unspecified whether hemorrhage documented in this encounter Care Teams Clin Nurse Spec Relationship Specialty Start Date End Date Kennedi Shaver MD [address] [place] [address] PCP - General Family Medicine 08/02/20 06/24/24 documented as of this encounter
--- OUTSIDE RECORDS SUMMARY | 2024-09-11 15:22 | XMS_ITS | Encounter Summary ---
[place] [address] Care Team Providers Care Jboss Developer Name Role Phone Kennedi Shaver MD Primary Care Provider [phone] Reason for Visit * Treatment/Therapy Plan Authorization (Routine) - Authorized Specialty Diagnoses / Procedures Referred By Blaine peralta Referred To Contact Diagnoses Neoplasm of prostate, 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 Procedures TC LEUPROLIDE ACETATE, PER 1MG, INJECTION (LUPRON) Faith Caba MD [facility] DR HEMATOLOGY [place] [address] [facility] Hem Onc [address] [place] [address] Referral ID Status Reason Start Date Expiration Date V isits Requested Visits Authorized [id number] Authorized 09/27/2020 09/29/2024 99 99 Encounter Details Date Type Department Care Team (Latest Contact Info) Description 10/16/2022 8:46 AM EST - 10/16/2022 11:59 PM EST Hospital Encounter [place] [address] Neoplasm of prostate, distant metastasis staging category [...] 08/17/2022 11/14/2022 documented as of this encounter Progress Notes * Alicia Jenkins RN - 10/16/2022 11:23 AM EST Patient Name: Chidi Carbone Patient Age: 76 y.o. Birthdate: 1945 Admit date: 10/16/2022 Attending Physician: No att. providers found Access visit. See MAR and/or flowsheet. Lupron given. Patient tolerated well. documented in this encounter Plan of Treatment Upcoming Encounters Date Type Department Care Team (Latest Contact Info) Description 09/29/2024 4:30 PM EST Hospital En[place] [address] Lizet Wilkes MD [facility] [place] [address] 09/29/2024 4:30 PM EST - 09/29/2024 5:00 PM EST [place] [address] Lizet Wilkes MD [facility] [place] [address] EGD, UPPER GI ENDOSCOPY (WRVU 2.09) 11/09/2024 10:00 AM EST Laboratory Appointment Lab at [facility] [place] [address] [place] [phone] 11/09/2024 11:00 AM EST Office Visit [place] [phone] Faith Caba MD [facility] [place] [address] 11/09/2024 12:00 PM EST Appointment [place] [phone] Scheduled Procedures Name Priority Associated Diagnoses Date/Ti me EGD, UPPER GI ENDOSCOPY (WRVU 2.09) Gastroesophageal reflux disease with esophagitis, unspecified whether hemorrhage 09/29/2024 4:30 PM EST documented as of this encounter Goals Goal Patient Goal Type Associated Problems Recent Progress Patient-Stated? Author [facility] Medication Compliance and Understanding Patient Facing Action Plan Curly Nicolas, [facility] Note: The patient? s goal is to [...] 22.5 mg, Intramuscular, ONCE, 1 dose, On Sat10/16/22 at 1130, , Routine, This agent is restricted to outpatient use. Is this drug being given as an outpatient? Yes Given 10/16/2022 11:20 AM EST 22.5 mg Right Gluteal documented in this encounter Care Teams Jboss Developer Relationship Specialty Start Date End Date Kennedi Shaver MD [address] [place] [address] PCP - General Family Medicine 08/02/20 06/24/24 documented as of this encounter
--- OUTSIDE RECORDS SUMMARY | 2024-09-11 15:22 | XMS_ITS | Encounter Summary ---
Author Organization [facility] [place] [address] Care Team Providers Care Sql Application Developer Name Role Phone Kennedi Shaver MD Primary Care Provider [phone] Encounter Details Date Type Department Care Team (Late st Contact Info) Description 08/22/2022 Telephone [place] [address] Denise Vega Social History Tobacco Use Types Packs/Day Years [...] encounter Miscellaneous Notes * Telephone Encounter - Denise Vega - 08/22/2022 10:38 AM EST Called pt to schedule a FUV with Dr. Nelson but the mailbox was full, letter has been sent to pt documented in this encounter Plan of Treatment Upcoming Encounters Date Type Department Care Team (Latest Contact Info) Description 09/29/2024 4:30 PM EST Hospital Encounter Gastroenterology at [place] [phone] Lizet Wilkes MD [facility] [place] [address] 09/29/2024 4:30 PM EST - 09/29/2024 5:00 PM EST Surgery Gastroenterology at [place] [phone] Lizet Wilkes MD [facility] [place] [address] EGD, UPPER GI ENDOSCOPY (WRVU 2.09) 11/09/2024 10:00 AM EST Laboratory Appointment [place] [facility] [place] [address] [place] [phone] 11/09/2024 11:00 AM EST Office Visit Hematology [place] [phone] Faith Caba MD [facility] [place] [address] 11/09/2024 12:00 PM EST Appointment Hematology and Oncology at [place] [phone] Scheduled Procedures Name Priority Associated Diagnoses Date/Ti [...] on filedocumented in this encounter Care Teams Sql Application Developer Relationship Specialty Start Date End Date Kennedi Shaver MD [facility] [address] [facility] [address] [place] [address] PCP - General Family Medicine 08/02/20 06/24/24 documented as of this encounter
--- OUTSIDE RECORDS SUMMARY | 2024-09-11 15:22 | XMS_ITS | Encounter Summary ---
Author Organization [facility] [place] [address] Care Team Providers Care Emr Specialist Name Role Phone Kennedi Shaver MD Primary Care Provider Reason for Visit * Reason Comments Specialty Pharmacy Review Abiraterone 50 0mg tablet Encounter Details Date Type Department Care Team (Late st Contact Info) Description 10/16/2022 Specialty [place] [address] Deborah Soares, [facility] Social History Tobacco Use Types Packs/Day [...] encounter Progress Notes * Deborah Soares - 10/16/2022 11:59 PM EST The [facility] has completed a benefits investigation for Chidi Lopez Raf to review their eligibility to fill [facility]. Per patient's medication list they are prescribedAbiraterone 500mg tablet and the medication is able to be filled at the [facility]. The patient is currently filling the medication through Specialty Pharmacy with a $0 copay. documented in this encounter Plan of Treatment Upcoming Encounters Date Type Department Care Team (Latest Contact Info) Description 09/29/2024 4:30 PM EST Hospital En[place] [phone] Lizet Wilkes MD [facility] [place] [address] 09/29/2024 4:30 PM EST - 09/29/2024 5:00 PM EST [place] [phone] Lizet Wilkes MD [facility] [place] [address] EGD, UPPER GI ENDOSCOPY (WRVU 2.09) 11/09/2024 10:00 AM EST Laboratory Appointment Lab at [facility] [place] [address] [place] [phone] 11/09/2024 11:00 AM EST Office Visit Hematology [place] [phone] Faith Caba MD [facility] [place] [address] 11/09/2024 12:00 PM EST Appointment Hematology [place] [phone] Scheduled Procedures Name Priority Associated Diagnoses Date/Ti [...] on filedocumented in this encounter Care Teams Emr Specialist Relationship Specialty Start Date End Date Kennedi Shaver MD [facility] [address] [facility] [address] [place] [address] PCP - General Family Medicine 08/02/20 06/24/24 documented as of this encounter
--- OUTSIDE RECORDS SUMMARY | 2024-09-11 15:22 | XMS_ITS | Encounter Summary ---
Author Organization [facility] [place] [address] Care Team Providers Care Organ Tuner Name Role Phone Kennedi Shaver MD Primary Care Provider [phone] Reason for Visit * Reason Comments Follow-up Encounter Details Date Type Department Care Team (Late st Contact Info) Description 10/16/2022 10:00 AM EST Office Visit [place]ology [place] [address] Faith Caba MD [facility] DR HEMATOLOGY [place] [address] Nena Duque, [facility] HEMATOLOGY/[place] [address] Wyatt Barriga, [facility] DR HEMATOLOGY [place] [address] Neoplasm of prostate, 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; Androgen deprivation therapy Social History Tobacco Use Types Packs/Day Years [...] Sign Reading Time Taken Comments Blood Pressure 145/86 10/16/2022 9:57 AM EST Pulse 82 10/16/2022 9:57 AM EST Temperature 36.7 ??C (98 ??F) 10/16/2022 9:57 AM EST Respiratory Rate 18 10/16/2022 9:57 AM EST Oxygen Saturation 97% 10/16/2022 9:57 AM EST Inhaled Oxygen Concentration - - Weight 82.1 kg (181 lb) 10/16/2022 9:57 AM EST Height 176.9 cm (5' 9.65) 10/16/2022 9:57 AM ES T Body Mass Index 26.24 10/16/2022 9:57 AM EST documented in this encounter Progress Notes * Wyatt Barriga PA - 10/16/2022 10:00 AM EST Images from the original note were not included. N [facility] HEM ONC [facility] [phone] ?? ONCOLOGY FOLLOW UP VISIT DIAGNOSIS: Metastatic prostate [...] presents today for follow up. He is doing well. He continues with abiraterone prednisone and he is here today for lupron. Ongoing knees pain scheduled for Right knee replacement 11/28/22 followed by orthopedics.His PSA remains undetectable. doing well no concerning symptoms.. He denies any shortness of breath, chest pain or cough. His appetite is good. He has no issues with his bowels. ROS is othewise negative. Admit Had GI bleed 2 months --Dr. Wallace REVIEW OF SYSTEMS: As noted in HPI; all other systems were reviewed and found to be negative. PAST MEDICAL HISTORY: 1. As above 2. GERD and Sol's esophagus S/p Alli Fundoplication 3. ELevated fasting glusoce 4. S/p distant appendectomy 5. S/p tonsilectomy 6. Hypertension MEDS: Medications 10/16/22 1000 Medication Sig Taking? abiraterone (Zytiga) 500 mg Tablet Take 2 tablets by mouth daily. Brand name only. Yes finasteride (Proscar) 5 mg Tablet Take 1 tablet by mouth daily. Yes tamsulosin (Flomax) 0.4 mg Capsule Take 1 capsule by mouth daily. Yes predniSONE (Deltasone) 5 mg Tablet Take 1 tablet by mouth daily. Yes Provigil 100 mg [...] Reviewed - no change PHYSICAL EXAM: BP 145/86 (Patient Position: Sitting) Pulse 82 Temp 36.7 ??C (98 ??F) (Temporal) Resp 18 Ht176.9 cm (5' 9.65) Wt 82.1 kg (181 lb) SpO2 97% BMI 26.24 kg/m?? ECOG PS: 0 General: NAD NCAT No cerval nodes RRR CTAB No rash No spinal tendernedd Musculoskeletal: Ambulatory without assist. Neurological: Alert & oriented, no focal deficits. Psych: Conversant, normal mood and affect. LABS: Recent Results (from the past 72 hour(s)) Comprehensive metabolic panel (non-fasting) Result Value Ref Range Glucose Lvl 108 65 - 199 mg/dL BUN 16 10 - 20 mg/dL Creatinine 0.87 0.80 - 1.50 mg/dL Sodium 142 135 - 145 mmol/L Potassium 4.1 3.5 - 5.0 mmol/L Chloride 106 98 - 107 mmol/L CO2 26 22 - 31 mmol/L Anion Gap 10 5 - 15 mmol/L Calcium 9.3 8.5 - 10.5 mg/dL Total Protein 6.5 6.1 - 8.0 g/dL Albumin 4.2 3.2 - 5.2 g/dL AST 15 0 - 39 unit/L ALT 9 0 - 55 unit/L Alk Phos 95 40 - 130 unit/L Total Bilirubin 0.5 0.2 - 1.3 mg/dL Estimated GFR 89 >=60 mL/min/1.73 m?? PSA (Ultrasensitive) Result Value Ref Range PSA Total (Ultrasensitive) <0.01 0.00 - 4.00 ng/mL Hemogram Result Value Ref Range WBC 7.0 4.0 - 9.5 x10(3)/mcL RBC 4.07 (L) 4.58 - 5.54 x10(6)/mcL Hemoglobin 10.3 (L) 13.7 - 16.5 g/dL Hematocrit 33.3 (L) 40.5 - 48.5 % MCV 81.8 (L) 82.9 - 93.1 fL MCH 25.3 (L) 27.5 - 32.1 pg MCHC 30.9 (L) 32.0 - 35.7 g/dL Platelets 279 145 - 357 x10(3)/mcL RDWSD 41.9 36.0 - 45.0 fL RDWCV 14.2 (H) 11.4 - 13.8 % MPV 9.3 7.6 - 12.9 fL nRBC % Auto 0.0 % nRBC Abs Auto 0.000 0.000 - 0.000 x10(3)/mcL Differential, Automated Result Value Ref Range Neutrophils % 60.8 % Neutr Abs (ANC) 4.28 1.70 - 6.10 x10(3)/mcL Lymphocytes % 21.9 % Lymphocytes Abs 1.5 0.9 - 3.2 x10(3)/mcL Monocytes % 12.2 % Monocyte Abs 0.9 0.3 - 0.9 x10(3)/mcL Eosinophils % 4.1 % Eosinophils Abs 0.3 0.0 - 0.4 x10(3)/mcL Basophils % 0.7 % Basophils Abs 0.0 0.0 - 0.1 x10(3)/mcL Immature Gran % 0.30 % Julisa Gran Abs 0.02 0.00 - 0.04 x10(3)/mcL IMAGING STUDIES: No new ASSESSMENT AND PLAN: 76 y.o. M has metastatic prostate cancer with extensive disease involving nodes and bones. He is oncombination lupron+abiraterone in the first line therapy. Clinically doing well, without any sx to suggest disease progression Tolerating tx with manageable hot flushes PSA remains undetectable Cont ADT + Iveth/Pred Osteoporosis: He was seen by Dr. Nelson and in reading his notes, bone sparing agent was recommended but not clear why this was not started. Chidi is taking calcium and vitamin D. I will check with Dr Nelson. F/u in 3 months Mr. Carbone asked appropriate questions and verbalized good understanding of and agreement with theplan. I encouraged him to call anytime with questions or concerns and he agreed. [facility] documented in this encounter Plan of Treatment Upcoming Encounters Date Type Department Care Team (Latest Contact Info) Description 09/29/2024 4:30 PM EST Hospital En[place] [phone] Lizet Wilkes MD [facility] [place] [address] 09/29/2024 4:30 PM EST - 09/29/2024 5:00 PM EST Surgery Gastroenterology at [place] [phone] Lizet Wilkes MD [facility] [place] [address] EGD, UPPER GI ENDOSCOPY (WRVU 2.09) 11/09/2024 10:00 AM EST Laboratory Appointment Lab at [facility] [place] Hematology Oncology [address] [place] [phone] 11/09/2024 11:00 AM EST Office Visit Hematology and Oncology at [place] [phone] Faith Caba MD [facility] DR HEMATOLOGY [place] [address] 11/09/2024 12:00 PM EST Appointment Hematology and Oncology at [place] [phone] Scheduled Procedures Name Priority Associated Diagnoses Date/Ti me EGD, UPPER GI ENDOSCOPY (WRVU 2.09) Gastroesophageal reflux disease with esophagitis, unspecified whether hemorrhage 09/29/2024 4:30 PM EST documented as of this encounter Goals Goal Patient Goal Type Associated Problems Recent Progress Patient-Stated? Author [facility] Medication Compliance and Understanding Patient Facing Action [...] deprivation therapy Encounter for therapeutic drug monitoring Gastroesophageal reflux disease with esophagitis, unspecified whether hemorrhage documented in this encounter Care Teams Organ Tuner Relationship Specialty Start Date End Date Kennedi Shaver MD [address] [place] [address] PCP - General Family Medicine 08/02/20 06/24/24 documented as of this encounter
--- OUTSIDE RECORDS SUMMARY | 2024-09-11 15:22 | XMS_ITS | Encounter Summary ---
[place] [address] Care Team Providers Care Cash Accountant Name Role Phone Kennedi Shaver MD Primary Care Provider [phone] Reason for Visit * Reason Comments Medication Refill Encounter Details Date Type Department Care Team (Late st Contact Info) Description 09/17/2022 Refill Hematology [place] [address] HEMATOLOGY AND ONCOLOGY [place], [place] [address] Neoplasm of prostate, distant metastasis staging category [...] 4:30 PM EST Hospital En[place] [address] Lizet Wilkes MD [facility] [place] [address] 09/29/2024 4:30 PM EST - 09/29/2024 5:00 PM EST Surgery Gastroenterology at [place] [phone] Lizet Wilkes MD [facility] [place] [address] EGD, UPPER GI ENDOSCOPY (WRVU 2.09) 11/09/2024 10:00 AM EST Laboratory Appointment [place] [facility] [address] [place], [place] [phone] 11/09/2024 11:00 AM EST Office Visit Hematology and Oncology at [place] [phone] Faith Caba MD [facility] [place] [address] 11/09/2024 12:00 PM EST Appointment Hematology and Oncology at [place] [phone] Scheduled Procedures Name Priority Associated Diagnoses Date/Ti [...] hemorrhage documented in this encounter Care Teams Cash Accountant Relationship Specialty Start Date End Date Kennedi Shaver MD [facility] [address] [facility] 1 [place] [address] PCP - General Family Medicine 08/02/20 06/24/24 documented as of this encounter
--- OUTSIDE RECORDS SUMMARY | 2024-09-11 15:22 | XMS_ITS | Encounter Summary ---
Author Organization [facility] [place] [address] Care Team Providers Care Substance Abuse Rn Name Role Phone Kennedi Shaver MD Primary Care Provider [phone] Encounter Details Date Type Department Care Team (Latest Contact Info) Description 11/08/2022 1:40 PM EST Office [place] [phone] Mendez Beard PA [facility] [place] [address] Preop examination; Osteoarthritis of right knee, unspecified osteoarthritis type; Anemia, unspecified type Social History Tobacco Use Types Packs/Day Years Used Date Smoking Tobacco: Former Cigarettes 3 1977 Smokeless Tobacco: Never Alcohol Use Standard Drinks/Week Comments Yes 14 (1 standard drink = 0.6 oz pu re alcohol) Sex and Gender Information Value Date Recorded Sex Assigned at Not on file Gender Identity Not on file Sexual Orientation Not on file documented as of this encounter Progress Notes * Mendez Beard PA - 11/08/2022 1:40 PM EST Images from the original note were not included. CC: Chidi Carbone is a 76 y.o. male with the following problems and medications that is being seen in the clinic for consultation at the request of his surgeon Dr. Julio Melissa for preoperative risk stratification and management recommendations in anticipation of right total knee arthroplasty for symptomatic OA. HPI - Pain: Location - right knee; Quality - aching and sharp; Onset - gradual; Duration - ~2 years; Intensity - moderate to severe; Aggravating factors - stairs; Alleviating factors - NSAIDs, APAP, rest; Associated - instability and using a cane all the time. Patient Active Problem List Diagnosis Code ??? GERD (gastroesophageal reflux disease) K21.9 ??? 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 Hypertension I10 ??? GI bleed K92.2 ??? Acute blood loss anemia D62 Current Outpatient Medications Medication Sig Dispense Refill ??? irbesartan (AVAPRO) 75 mg Tablet Take 75 mg by mouth every evening. ??? ferrous sulfate 325 mg (65 mg iron) Tablet Take 325 mg by mouth every other day. ??? abiraterone (Zytiga) 500 mg Tablet Take 2 tablets by mouth daily. Brand name only. 60 tablet 11 ??? finasteride (Proscar) 5 mg Tablet Take 1 tablet by mouth daily. 90 tablet 3 ??? tamsulosin (Flomax) 0.4 mg Capsule Take 1 capsule by mouth daily. 90 tablet 3 ??? predniSONE (Deltasone) 5 mg Tablet Take 1 tablet by mouth daily. 30 tablet 11 ??? Provigil 100 mg Tablet take 1 tablet by mouth once daily ??? pantoprazole EC (Protonix) 40 mg Tablet, Delayed Release (E.C.) take 1 tablet by mouth twice a day ??? zolpidem (AMBIEN) 10 mg Tablet take 1 tablet by mouth at bedtime ??? leuprolide acetate (LUPRON DEPOT IM) Inject into the muscle. Once every 3 months, dosage unknown Current Facility-Administered Medications Medication Dose Route Frequency Provider Last Rate Last Admin ??? mupirocin (Bactroban) 2 % ointment 1 each 1 each Topical (Top) BID Julio Melissa MD 1 each at11/08/22 1324 Social History Occupational History ??? Not on file Tobacco Use ??? Smoking status: Former Years: 15.00 Types: Cigarettes Quit date: 1977 Years since quittin.1 ??? Smokeless tobacco: Never Vaping Use ??? Vaping Use: Never used Substance and Sexual Activity ??? Alcohol use: Yes Alcohol/week: 14.0 standard drinks Types: 14 Glasses of wine per week ??? Drug use: No ??? Sexual activity: Not on file Family History Problem Relation Age of Onset ??? Diabetes Neg Hx Review of Systems Constitutional: Negative for chills, diaphoresis, fever, lightheadedness, or JOHNSON. Respiratory: GIRISH with CPAP recall and this has not yet been replaced; plans to restart CPAP use anduse through the surgical timeframe; will follow-up with sleep center for any additional advice and possible replacement unit. Negative for cough, shortness of breath and wheezing. Cardiovascular: Negative for chest pain, palpitations and leg swelling. Gastrointestinal: Hx of rectal bleed on regimented NSAID use; discontinued NSAIDs and this issue has resolved; had been hospitalized for this with several units of blood received; discharged with recommendation to avoid NSAIDs and ASA; will communicate with Dr. Wallace re Aspirin use post-operativelyvs other DVT PPx option. GERD controlled with Protonix. Negative for abdominal pain, anal bleeding and blood in stool. Endocrine: Negative for polydipsia and polyphagia. Genitourinary: Negative for dysuria, flank pain and hematuria. Skin: Negative for pallor and rash. Allergic/Immunologic: Negative for environmental allergies and immunocompromised state. Neurological: Negative for syncope and speech difficulty. Hematological: Prostate cancer diagnosed about 5 years ago; has been controlled with hormone therapy (abiraterone daily and Lupron once every 3 month injections); managed by Dr. Caba Negative for adenopathy; most recent clinical visit note reviewed and no signs or symptoms of disease progression seen; plan for DEXA scan and further management of osteoporosis. Does not bruise/bleed easily. Psychiatric/Behavioral: Negative for confusion, decreased concentration and dysphoric mood. Allergies: No Known Allergies Physical Exam: Last Set of Vitals and Range over past 24 hours: Last value Range last 24 hrs Heart Rate Heart Rate: [89] Blood Pressure BP: (152)/(79) SpO2 SpO2: [96 %] Estimated body mass index is 24.9 kg/m?? as calculated from the following: Height as of an earlier encounter on 11/08/22: 179.1 cm (5' 10.5). Weight as of an earlier encounter on 11/08/22: 79.8 kg (176 lb). Physical Exam Constitutional: He is oriented to person, place, and time. He appears well- developed. No distress. HENT: Head: Normocephalic and atraumatic. Eyes: Right eye exhibits no discharge. Left eye exhibits no discharge. No scleral icterus. Neck: Neck supple. No JVD present. Cardiovascular: Normal rate, regular rhythm. Exam reveals no gallop and no friction rub. /6 systolic murmur heard. Pulmonary/Chest: Effort normal and breath sounds normal. No stridor. No respiratory distress. He has no wheezes, no rales. He exhibits no spinal tenderness. Abdominal: Soft. Bowel sounds are normal. No HSM percussed or palpated. There is no tenderness to palpation of CVA. There is no rebound and no guarding of the abdomen. Musculoskeletal: He exhibits no edema in [place] Bilaterally. RLE: Sensation to light touch intact; Knee ROM from ~ 0 degrees from full extension to ~>90 degrees flexion; DF/PF 5/5; DP pulse 2+. Neurological: He is alert and oriented to person, place, and time. He exhibits no resting or intentional tremors, dystonia or dysmetria. Skin: Skin is warm and dry. He is not diaphoretic. No pallor. Psychiatric: He has a normal mood and affect. His behavior is normal. Judgment and thought content normal. Lab Results Component Value Date WBC 6.0 11/08/2022 RBC 4.11 (L) 11/08/2022 HGB 10.2 (L) 11/08/2022 HCT 33.1 (L) 11/08/2022 MCV 80.5 (L) 11/08/2022 MCH 24.8 (L) 11/08/2022 MCHC 30.8 (L) 11/08/2022 PLATELET 287 11/08/2022 RDWCV 15.3 (H) 11/08/2022 Lab Results Component Value Date NA 142 11/08/2022 K 4.5 11/08/2022 CL 108 (H) 11/08/2022 CO2 21 (L) 11/08/2022 BUN 21 (H) 11/08/2022 CREATININE 0.94 11/08/2022 GLUCOSE 98 11/08/2022 CALCIUM 9.1 11/08/2022 Lab Results Component Value Date PT 12.1 11/08/2022 INR 1.1 11/08/2022 PTT 32 11/08/2022 Reticulated Hgb 22.6 Estimated Creatinine Clearance: 74.6 mL/min (based on SCr of 0.87 mg/dL). EKG 11/08/22 (image reviewed): Normal sinus rhythm Minimal voltage criteria for LVH, may be normal variant ( R in aVL ) Borderline ECG When compared with ECG of 14-AUG-2022 11:47, Premature ventricular complexes are no longer Present Xray bilateral knees 07/19/22: IMPRESSION 1. Progression of Advanced osteoarthropathy of both knees with severe loss of medial joint spaces, osteophyte formation and intra-articular bodies in RIGHT knee joint. 2. Bilateral chondrocalcinosis 3. Chondroid lesion in distal femoral shaft with nonaggressive features, unchanged since 2007. ?? Thank you for letting us participate in the care of this patient. If you are a health care provider and have any questions regarding this report, please contact the number below. For patients who have questions please contact the health care center manager that requested your imaging first. A/P: Diagnosis: 1. Preop examination Hemogram 2. Osteoarthritis of right knee, unspecified osteoarthritis type Hemogram Murillo A Holaday is a 76 y.o. male who presents to clinic for preoperative surgical risk evaluationand planning. GIRISH with CPAP recall and this has not yet been replaced; plans to restart CPAP use and use through the surgical timeframe; will follow-up with sleep center for any additional advice andpossible replacement unit. Hx of rectal bleed on regimented NSAID use; discontinued NSAIDs and thisissue has resolved; had been hospitalized for this with several units of blood received; dischargedwith recommendation to avoid NSAIDs and ASA; will communicate with Dr. Wallace regarding Aspirin use post-operatively vs other DVT PPx option. GERD controlled with Protonix. Prostate cancer with metastasis diagnosed about 5 years ago; has been controlled with hormone therapy (abiraterone + prednisonedaily and Lupron once every 3 month injections); managed by Dr. Caba Negative for adenopathy; most recent clinical visit note reviewed and no signs or symptoms of disease progression seen; plan for DEXA scan and further management of osteoporosis. Hgb 10.2 today which is down from 10.3 about 3 weeks ago; he had recent diverticular bleed which he was hospitalized for and had cauterization of the bleed, and his Hgb was increasing on iron; now anemia is persisting at just above 10; he is possibly not absorbing his oral iron on Protonix; have added on Reticulated Hgb which is low at 22.6; willcommunicate with PCP for ordering IV Venofer 200mg every other day for 5 days prior to surgery to increase his Hgb level; he may also need continued IV Iron post-op ~every other month as maintenance.The patient's daughter and will be at home to help with recovery. The patient elects to proceed with planned surgery. I reviewed the association of GIRISH with perioperative complications and suboptimal outcomes of arthroplasty and reiterated continued CPAP compliance. This additional risk is NOT incorporated into the estimate below based on NSQIP methodology. Major Risk Factor per the Revised Cardiac Risk Index (Bold if present) - There is no history of CAD, CHF, CVA or TIA, DM2 on insulin, or a Creatinine >2. Risk diagnosis for MACE (major adverse cardiovascular event = Myocardial infarction, pulmonary edema, ventricular fibrillation, primary cardiac arrest, or complete heart block.) : Low <1%. Based on the ACC/AHA 2014 guideline no further cardiovascular testing is indicated. ARISCAT/CANET Score - estimates the risk of postoperative pulmonary complications as being low ~3.5%. Per the ACS NSQIP calculator I estimated the following: Patient instructions: Continue Abiraterone, Finasteride, Flomax, Prednisone, Pantoprazole, Ambien Don't take irbesartan on the morning of surgery Don't take Provigil on the morning of surgery Don't take vit/supp on the morning of surgery Patient to follow-up with PCP for IV Iron infusions (200mg Venofer every other day for 5 days for total of 1g IV Iron) prior to upcoming knee surgery due to anemia RECOMMENDATION: Anemia- Patient to have IV Iron infusions through PCP, Dr. Shaver prior to planned knee surgery on 11/28/22; suggest 200mg Venofer every other day for 5 days (total of 1g IV Iron) Continue irbesartan (hold for SBP <120); Abiraterone, Finasteride, Flomax, Prednisone, Pantoprazole, Ambien, Provigil Caution regarding NSAIDS and Asprin use given recent GI bleed (see noted I eDH from July 2022);suggest DOAC for DVT PPx Patient is at intermediate risk for adrenal insufficiency. Stress dose steroids are NOT routinely indicated. IF patient has persistent hypotension - administer 50mg IV SoluCortef bolus followed by 25mg IV q 8 hours x 2 doses GIRISH; diligent CPAP use post-operatively to include daytime naps; minimize opiates and/or gabapentinoids (minimize/avoid evening dosing) use and maximize non-opiate adjuncts; elevate head of bed to 30degrees; diligent IS use post-operatively Other orders per Dr. Julio Melissa Do any of the following risk factors exist: yes - anemia (HgB < 12) or significant blood disease (chronic leukemia or myeloma) yes - Age > 75 Is this patient a candidate for expedited recovery after total joint replacement no RAPT 06/11 which suggests likely needs short stay in hospital and then can be discharged home. documented in this encounter Plan of Treatment Upcoming Encounters Date Type Department Care Team (Latest Contact Info) Description 09/29/2024 4:30 PM EST Hospital En[place] [phone] Lizet Wilkes MD [facility] [place] [address] 09/29/2024 4:30 PM EST - 09/29/2024 5:00 PM EST [place] [address] Lizet Wilkes MD [facility] [place] [address] EGD, UPPER GI ENDOSCOPY (WRVU 2.09) 11/09/2024 10:00 AM EST Laboratory Appointment Lab at [facility] Hematology Oncology [address] [place] [phone] 11/09/2024 11:00 AM EST Office Visit [place] [phone] Fatih Caba MD [facility] [address] [place] [address] 11/09/2024 12:00 PM EST Appointment [place] [phone] Scheduled Orders Name Type Priority Associated Diagnoses Orde r Schedule Hemogram Lab Routine Preop examination Osteoarthritis of right knee, unspecified osteoarthritis type Expected: 11/08/2022, Expires: 02/05/2023 Scheduled Procedures Name Priority Associated Diagnoses Date/Ti ks EGD, UPPER GI ENDOSCOPY (WRVU 2.09) Gastroesophageal reflux disease with esophagitis, unspecified whether hemorrhage 09/29/2024 4:30 PM EST documented as of this encounter Goals Goal Patient Goal Type Associated Problems Recent Progress Patient-Stated? Author DH Home Medication Compliance and Understanding Patient Facing Action Plan Curly Nicolas, [facility] Note: The patient? s goal is to continue positive results of oral chemotherapy by maintaining improved labs PSA or stable scans in clinic for the upcoming year. documented as of this encounter Visit Diagnoses Diagnosis Preop examination Preoperative examination, unspecified Osteoarthritis of right knee, unspecified osteoarthritis type Anemia, unspecified type Gastroesophageal reflux disease with esophagitis, unspecified whether hemorrhage documented in this encounter Care Teams Substance Abuse Rn Relationship Specialty Start Date End Date Kennedi Shaver MD [facility] [address] [place] [address] PCP - General Family Medicine 08/02/20 06/24/24 documented as of this encounter
--- OUTSIDE RECORDS SUMMARY | 2024-09-11 15:23 | XMS_ITS | Encounter Summary ---
Author Organization [place] [address] Care Team Providers Care Assembler Bonding Name Role Phone Kennedi Shaver MD Primary Care Provider [phone] Reason for Visit * Auth/Cert (Routine) Specialty Diagnoses / Procedures Referred By Blaine t Referred To Contact Diagnoses GI bleed [place] [address] [place] Referral ID Status Reason Start Date Expiration Date Visits Re quested Visits Authorized [id number] 1 1 Encounter Details Date Type Department Care Team (Latest Contact Info) Description 08/14/2022 11:40 AM EST - 08/17/2022 5:47 PM EST Hospital Encounter 3 [place] [address] Mendez Hartley MD [facility] [place] [address] [place] [address] GI bleed (Primary Dx); Neoplasm of prostate, distant metastasis staging category [...] Sign Reading Time Taken Comments Blood Pressure 146/79 08/17/2022 10:50 AM EST Pulse 81 08/17/2022 8:30 AM EST Temperature 37 ??C (98.6 ??F) 08/17/2022 10:50 AM EST Respiratory Rate 20 08/17/2022 10:50 AM EST Oxygen Saturation 95% 08/17/2022 10:50 AM EST Inhaled Oxygen Concentration - - Weight 80.7 kg (178 lb) 08/16/2022 2:12 PM EST Height 177.8 cm (5' 10) 08/16/2022 2:12 PM EST Body Mass Index 25.54 08/16/2022 2:12 PM EST documented in this encounter Discharge Summaries * Harrison Rose MD - 08/17/2022 10:11 AM EST Inpatient - Discharge Summary Patient Name: Chidi Carbone Patient Age: 76 y.o. Birthdate: 1945 Admit date: 08/14/2022 Discharge date and time: 08/17/2022 Attending Physician: Milton Soto MD Code Status: Full Code Follow-up Recommendations: #Grade C Esophagitis - repeat EGD in 2-3 months to evaluate healing - PPI BID - Avoid NSAIDs #LGIB 2/2 Diverticular bleed - Avoid NSAIDs - Avoid Aspirin - repeat colonoscopy in 1-2 months for polyp removal - Recommend f/u CBC #5mm sessile polyp - Follow up with GI - Follow up colonoscopy Discharge Diagnoses (Hospital Problems) and Secondary Diagnoses (Chronic Problems): Active Hospital Problems Diagnosis ??? GI bleed ??? Acute blood loss anemia Resolved Hospital Problems No resolved problems to display. Procedures: Colonoscopy 08/16: ?The terminal ileum appeared normal. ?There was a visible vessel on the rim of a small ?diverticulum in the ascending. To prevent bleeding ?one hemostatic clip was successfully placed. ?Multiple small and large-mouthed diverticula were ?found throughout the entire colon ?A 5 mm polyp was found in the ascending colon. The ?polyp was sessile. Polypectomy was not attempted. ?The retroflexed view of the distal rectum and anal ?verge was normal and showed no anal or rectal ?abnormalities. EGD 08/15 ?LA Grade C (one or more mucosal breaks continuous ?between tops of 2 or more mucosal folds, less than ?75% circumference) esophagitis with no bleeding was ?found in the distal esophagus. ?Evidence of a [place] fundoplication was found in the ?gastric fundus. The wrap appeared loose. ?The examined duodenum was normal. IR mesenteric angiogram 08/15 History of Presentation (per 08/14/2022 Admission H&P): Patient is a 76 y/o w/ PMHx of Metastatic prostatic cancer, bilateral knee OA here for bright red blood in stool. Patient first experienced sharp LLQ pain on 08/10 PM with subsequent bright red bloodin stool. Patient had an additional episode later before seeking medical attention at [facility]. Patient was found to have hgb of 10 on 08/10, then 8 on 08/11 with a baseline of 13 07/10 . Patient was discharged on Saturday 08/11 after having no additional episodes. Over the weekend patient had normal BM w/o hematochezia. He reported self resolving vertigo after discharge as well as intermittent lightheadedness, generalized weakness and mild RAMIREZ. Patient this AM 08/14 experienced another episode of hematochezia. Patient denied further LLQ abdominal pain, JOHNSON, nausea, vomiting, CP, palpitation or any prior hx of GIB. Hospital Course: Chidi Carbone was admitted to the Medicine Service on 08/14/2022. The following acute and chronic medical issues were identified during this phase of their hospitalization, and managed as summarized below by problem: #Diverticular Bleed Patient presented to for hematochezia after recent discharge from OSH for hematochezia. Patient's H&H on admission was 7.4 from baseline of 07/10/22 of 12.9. He was asymptomatic for anemia on admission. Patient continued to have large hematochezia output until 08/15. He received total of 3u RBC 08/14 and 08/15 before Hgb stabilized at 8. Patient underwent CTAP 08/15 but was unrevealing, mesenteric angiogram with IR on 08/15 was also unrevealing. Patient underwent EGD and only found esophagitis on 08/15. Patient underwent colonoscopy 08/16 and a visible vessel in a diverticulum in the ascending colon was found and was clipped. Patient's Hgb was 7.1 on the morning of admission without f urther episodes of hematochezia, HDS, asymptomatic denying palpitations, dizziness, orthostatic symptoms, hematochezia. Patient was transfused with 1 additional unit of RBC prior to discharge. Patient received 4u RBC in total this admission. #Grade C Esophagitis Found on EGD. Follow up outpatient in 2 months with another EGD. Continue BID PPI. #5 mm sessile polyp Found on colonoscopy in ascending colon w/o attempt for polypectomy. Will follow up outpatient withGI and colonoscopy. Important Studies and Lab Data: DISCHARGE BASIC LABS Recent Labs 08/17/22 1313 08/17/22 0122 08/16/22 1755 08/16/22 0737 08/16/22 0142 08/15/22 1419 08/15/22 0618 WBC -- 5.3 -- -- 5.4 -- 6.0 HGB 9.5* 7.1* 7.1* 7.4* < > 7.9* < > 7.8* 7.8* HCT 28.0* 20.8* 20.8* 21.4* < > 22.9* < > 23.4* 23.4* PLATELET -- 203 -- -- 193 -- 187 < > = values in this interval not displayed. Recent Labs 08/17/22 0122 08/16/22 1320 08/16/22 0142 08/15/22 0618 NA 144 142 142 143 K 3.8 3.3* 3.0* 3.4* CL 112* 106 107 112* CO2 27 24 24 21* BUN 9* 8* 10 16 CREATININE 0.74* 0.81 0.76* 0.57* MAGNESIUM 0.76 -- 0.74 0.78 PHOS 3.6 -- 3.3 3.5 No results for input(s): BILITOT, BILIDIR, AST, ALT, ALKPHOS in the last 168 hours. No results for input(s): INR, PTT in the last 168 hours. Pertinent radiology/diagnostic studies: CTAP 08/15 FINDINGS: GI Tract: Pre-contrast: No bowel dilatation. Of note there are several hyperdense foci scattered throughout the small and large bowel, for example in the lower rectum (axial series 8, image 624) and within the right hemicolon (axial series 8, image 468). ?? Arterial phase: No active contrast extravasation. ?? Portal venous phase: No pooling of contrast or evidence of active contrast extravasation. Patient is status post fundoplication with small hiatal hernia above the wrap. There are multiple nondilated fluid-filled loops of small and large bowel. Diverticulosis without secondary signs of diverticulitis. Moderate volume of liquid stool throughout the colon. There is hyperemia of the anal mucosa. ?? Lung bases: No focal consolidation. No pleural effusions.. Aortic valve calcifications are noted. Low-attenuation of the blood pool relative to the myocardium consistent with anemia. ?? Liver: Normal in size and attenuation. Subcentimeter hypoattenuating (on all phases) lesion in the left hepatic lobe, too small to further characterize but favored to represent a benign cyst. Bile ducts: Non-dilated Gallbladder: No calcified gallstones. Normal caliber wall. Pancreas: Normal attenuation without ductal dilatation or focal lesion. Spleen: Normal. Adrenals: Normal. Kidneys: Normal symmetric nephrograms. No collecting system dilatation. Multiple parapelvic cysts are noted bilaterally. No nephroureteral calculi. ?? Urinary Bladder: There are small calculi along the posterior bladder wall margin. Small right superior bladder diverticuli. Lymph Nodes: [No pathologically enlarged lymph nodes. Vasculature: No abdominal aortic aneurysm. No dissection. The celiac, SMA and bilateral renal arteries and CHET are widely patent. The hepatic veins and portal vein are patent. Normal caliber of the IVC. Abdominal wall: Normal. Peritoneum: No free fluid. No loculated collection to suggest abscess. No free air. No focal mesenteric edema. ?? Reproductive organs: Unchanged prostatomegaly with coarse calcifications. ?? Osseous structures: Unchanged sclerotic foci in the L2 vertebral body, anterior L3 vertebral body there is diffuse osseous demineralization. Subtle irregularity of the right posterior 11th rib (axialseries 5 image 39), not present on most recent available imaging of 02/19/2017. ?? IMPRESSION 1. No evidence of active GI bleeding. 2. Hyperemia of the anal mucosa without definitive bleeding. Please correlate with physical exam findings to exclude hemorrhoids. 3. Subtle irregularity of the right posterior 11th rib, may represent a nondisplaced fracture. Please correlate with pin point tenderness on physical exam. There is no associated suspicious lesion at this irregularity, clinical concern for site of prostatic metastasis, recommend further evaluation with nuclear medicine bone scan. 4. Recurrent small hiatal hernia status post [place]. IR Arteriogram Mesenteric 08/15 Impression: No evidence of active arterial GI bleeding involving the superior mesenteric, inferior mesenteric, or celiac arteries. Discharge Conditions/Prognosis: Upon discharge the pt is hemodynamically stable, fully ambulatory without requiring supplemental oxygen, afebrile and pain free. Discharge to: home without services Discharge Medications: Your Medications Continued medications, unchanged Dose Details abiraterone 500 mg Tab Commonly known as: Zytiga Take 2 tablets by mouth daily. Brand name only. 1,000 mg Quantity: 60 tablet Refills: 11 finasteride 5 mg Tab Commonly known as: Proscar Take 1 tablet by mouth daily. 5 mg Quantity: 90 tablet Refills: 3 LUPRON DEPOT IM Inject into the muscle. Once every 3 months, dosage unknown Refills: 0 pantoprazole EC 40 mg Tbec Commonly known as: Protonix take 1 tablet by mouth twice a day Refills: 0 predniSONE 5 mg Tab Commonly known as: Deltasone Take 1 tablet by mouth daily. 5 mg Quantity: 30 tablet Refills: 11 ProvigiL 100 mg Tab take 1 tablet by mouth once daily Generic drug: modafiniL Refills: 0 tamsulosin 0.4 mg Cap Commonly known as: Flomax Take 1 capsule by mouth daily. 0.4 mg Quantity: 90 tablet Refills: 3 zolpidem 10 mg Tab Commonly known as: AMBIEN take 1 tablet by mouth at bedtime Refills: 0 Updated Allergies/ADRs: No Known Allergies Instructions Given to Patient at Discharge: Patient Instructions Instruction after leaving the hospital Why you were hospitalized: You were hospitalized for a lower GI bleed. You underwent a colonoscopy that found the likely source of bleeding from an outpouching in your colon called a diverticulus. You received a total of 4 units of blood while in the hospital. You also underwent a upper endoscopy that found some irritation in your esophagus. You should have a repeat colonoscopy and endoscopy in afew months to evaluate for healing. It is highly advised that you do not take any more NSAIDs such as Aleve (naproxen) or Advil (ibuprofen). Call your doctor or seek medical attention if you develop the following: Call your doctor or seek medical attention if you experience any alarming symptoms. This may include, but is not limited to, bright red blood in your stool, black tarry stool, fever, chest pain, severe shortness of breath, nausea with vomiting, persistent decrease in your urinary output, severe pain, or any other concerning symptoms. Activity level: As tolerated. Diet: No new restrictions. Recommend a high fiber diet to maintain bowel regularity. Driving: Please do not drive if you feel lightheaded, dizzy, faint, or taking any opioids/narcotics(i.e oxycodone). It is advisable that you do not drive till you follow-up with your primary care physician. Shower/Bath: No new restrictions. Patient Instructions: - Please attend all follow-up appointments. - Please take all medications as prescribed. Changes in Your Medications: New Medications: Your Medications Continued medications, unchanged Dose Details abiraterone 500 mg Tab Commonly known as: Zytiga Take 2 tablets by mouth daily. Brand name only. 1,000 mg Quantity: 60 tablet Refills: 11 finasteride 5 mg Tab Commonly known as: Proscar Take 1 tablet by mouth daily. 5 mg Quantity: 90 tablet Refills: 3 LUPRON DEPOT IM Inject into the muscle. Once every 3 months, dosage unknown Refills: 0 pantoprazole EC 40 mg Tbec Commonly known as: Protonix take 1 tablet by mouth twice a day Refills: 0 predniSONE 5 mg Tab Commonly known as: Deltasone Take 1 tablet by mouth daily. 5 mg Quantity: 30 tablet Refills: 11 ProvigiL 100 mg Tab take 1 tablet by mouth once daily Generic drug: modafiniL Refills: 0 tamsulosin 0.4 mg Cap Commonly known as: Flomax Take 1 capsule by mouth daily. 0.4 mg Quantity: 90 tablet Refills: 3 zolpidem 10 mg Tab Commonly known as: AMBIEN take 1 tablet by mouth at bedtime Refills: 0 Follow-Up Appointments Future Appointments Date Time Provider Department Center 10/16/2022 9:00 AM LABORATORY, [place] [facility] [place] [place] [facility] 10/16/2022 10:00 AM Faith Caba MD [facility] [place] [facility] 10/16/2022 11:00 AM ACCESS ROOM [address] Date and Time Provider and Specialty Location 08/24/2022 at 10:40am Kennedi Shaver MD , PCP [address] / [facility] [id number] Your Inpatient Doctor(s) at [facility] [place] MD Harrison Fay MD Your Primary Care Provider: MD [address] / [facility] [id number] For questions regarding this document or issues relating to this hospitalization on the Hospital Medicine Service, please contact the on-call Hospitalist through the [facility] Clinical Scientist . DO NOT attempt to contact your care team through the nurse's station. General Instructions [facility] Interventional Radiology Post Angiography Instructions Procedure: Mesenteric Arteriogram Puncture Site: Right Groin 08/15/22 Physician: Dr Duarte 1. At home we advise you to rest quietly in bed or on the couch with your hip straight until the next morning. Until the next morning you may get up only to go to the bathroom. 2. Resume your previous diet. Drink 6-8 ounces of fluid per hour for the next 8 hours. Avoid alcoholic or caffeinated beverages for 24 hours. 3. Avoid strenuous activity for the next 48 hours, particularly in the next 24 hours. Stair climbing should be kept to a minimum. Do not lift objects heavier than 10-15 pounds for the next 48 hours Avoid straining for bowel movements as you can pop open the clot that has formed on the artery. 4. If you develop bulging under the skin or bleeding at the puncture site, put direct pressure on the puncture site for 15 minutes and call your doctor. If the bleeding persists, reapply pressure, and go to your local Emergency Department. 5. If you notice a sudden change in the feeling (numbness, tingling and/or pain) of your leg on theside of the puncture call your doctor. 6. You may develop a bruise at the puncture site. This should go away within a week to 10 days. If a bulge develops after the first three days, call your doctor or the Radiology/Vascular Department here. Report signs of infection (redness, swelling, discharge, soreness, or fever) to your doctor. 7. Leave the bandage on for 24-48 hours. You may shower the following day after the procedure. You should NOT swim or tub bathe for [address] for 24 hours after the procedure. Do not sign any important documents or smoke unattended for 24 hours. You may return to work with the above restrictions on . 9. If you have any questions or concerns, please call Interventional Radiology Department at until 6pm. After 6pm, or on weekends or hoildays, call and ask for the vice president underwriting nutrition faculty member. OR Vascular Department at until 4:45pm. After 4:45pm call and ask for the Vascular resident nutrition faculty member. 10. If you are a diabetic and take Metformin or Janumet, Do not take it for 2 days after the procedure. You have received medication during your procedure to help lesson anxiety and keep you comfortable and which affects judgement and reaction time. We recommend that you do not drive, operate equipment, sign any important documents, or smoke unattended for 24 hours following your procedure. Because of the sedation please be careful on stairs, as you may be unsteady on your feet. You may resume your regular diet as tolerated. IV site -- slight redness, or tenderness is normal, you can use a warm compress. If tenderness and redness increases or foul drainage occurs, please contact your M. D. Revised 07/16/19 Future Appointments and Orders Future Appointments and Orders Future Appointments Provider Department Dept Phone 10/16/2022 9:00 AM LABORATORY, TECH H[place]ology [place]cology [place] [facility] [place]rive at: [facility] [phone] 10/16/2022 10:00 AM Faith Caba MD Hematology and Oncology at [facility] [place]rive at: [facility] [phone] 10/16/2022 11:00 AM ACCESS ROOM Hematology and Oncology at [facility] [place]rive at: [facility] [phone] Provider Contact Information: Kennedi Shaver MD [address] / [facility] [id number] Discharge References/Attachments: Discharge References/Attachments None documented in this encounter Discharge Instructions * Discharge Instructions* Sintia Carpio RN - 08/15/2022 7:52 AM EST [facility] Interventional Radiology Post Angiography Instructions Procedure: Mesenteric Arteriogram Puncture Site: Right Groin 08/15/22 Physician: Dr Duarte 1. At home we advise you to rest quietly in bed or on the couch with your hip straight until the next morning. Until the next morning you may get up only to go to the bathroom. 2. Resume your previous diet. Drink 6-8 ounces of fluid per hour for the next 8 hours. Avoid alcoholic or caffeinated beverages for 24 hours. 3. Avoid strenuous activity for the next 48 hours, particularly in the next 24 hours. Stair climbing should be kept to a minimum. Do not lift objects heavier than 10-15 pounds for the next 48 hours Avoid straining for bowel movements as you can pop open the clot that has formed on the artery. 4. If you develop bulging under the skin or bleeding at the puncture site, put direct pressure on the puncture site for 15 minutes and call your doctor. If the bleeding persists, reapply pressure, and go to your local Emergency Department. 5. If you notice a sudden change in the feeling (numbness, tingling and/or pain) of your leg on theside of the puncture call your doctor. 6. You may develop a bruise at the puncture site. This should go away within a week to 10 days. If a bulge develops after the first three days, call your doctor or the Radiology/Vascular Department here. Report signs of infection (redness, swelling, discharge, soreness, or fever) to your doctor. 7. Leave the bandage on for 24-48 hours. You may shower the following day after the procedure. You should NOT swim or tub bathe for [address] for 24 hours after the procedure. Do not sign any important documents or smoke unattended for 24 hours. You may return to work with the above restrictions on . 9. If you have any questions or concerns, please call Interventional Radiology Department at until 6pm. After 6pm, or on weekends or hoildays, call and ask for the vice president underwriting nutrition faculty member. OR Vascular Department at until 4:45pm. After 4:45pm call [phone] and ask for the Vascular resident nutrition faculty member. 10. If you are a diabetic and take Metformin or Janumet, Do not take it for 2 days after the procedure. You have received medication during your procedure to help lesson anxiety and keep you comfortable and which affects judgement and reaction time. We recommend that you do not drive, operate equipment, sign any important documents, or smoke unattended for 24 hours following your procedure. Because of the sedation please be careful on stairs, as you may be unsteady on your feet. You may resume your regular diet as tolerated. IV site -- slight redness, or tenderness is normal, you can use a warm compress. If tenderness and redness increases or foul drainage occurs, please contact your M. D. Revised 07/16/19 * Patient Instructions* Harrison Rose MD - 08/17/2022 8:03 AM EST Instruction after leaving the hospital Why you were hospitalized: You were hospitalized for a lower GI bleed. You underwent a colonoscopy that found the likely source of bleeding from an outpouching in your colon called a diverticulus. You received a total of 4 units of blood while in the hospital. You also underwent a upper endoscopy that found some irritation in your esophagus. You should have a repeat colonoscopy and endoscopy in afew months to evaluate for healing. It is highly advised that you do not take any more NSAIDs such as Aleve (naproxen) or Advil (ibuprofen). Call your doctor or seek medical attention if you develop the following: Call your doctor or seek medical attention if you experience any alarming symptoms. This may include, but is not limited to, bright red blood in your stool, black tarry stool, fever, chest pain, severe shortness of breath, nausea with vomiting, persistent decrease in your urinary output, severe pain, or any other concerning symptoms. Activity level: As tolerated. Diet: No new restrictions. Recommend a high fiber diet to maintain bowel regularity. Driving: Please do not drive if you feel lightheaded, dizzy, faint, or taking any opioids/narcotics(i.e oxycodone). It is advisable that you do not drive till you follow-up with your primary care physician. Shower/Bath: No new restrictions. Patient Instructions: - Please attend all follow-up appointments. - Please take all medications as prescribed. Changes in Your Medications: New Medications: Your Medications Continued medications, unchanged Dose Details abiraterone 500 mg Tab Commonly known as: Zytiga Take 2 tablets by mouth daily. Brand name only. 1,000 mg Quantity: 60 tablet Refills: 11 finasteride 5 mg Tab Commonly known as: Proscar Take 1 tablet by mouth daily. 5 mg Quantity: 90 tablet Refills: 3 LUPRON DEPOT IM Inject into the muscle. Once every 3 months, dosage unknown Refills: 0 pantoprazole EC 40 mg Tbec Commonly known as: Protonix take 1 tablet by mouth twice a day Refills: 0 predniSONE 5 mg Tab Commonly known as: Deltasone Take 1 tablet by mouth daily. 5 mg Quantity: 30 tablet Refills: 11 ProvigiL 100 mg Tab take 1 tablet by mouth once daily Generic drug: modafiniL Refills: 0 tamsulosin 0.4 mg Cap Commonly known as: Flomax Take 1 capsule by mouth daily. 0.4 mg Quantity: 90 tablet Refills: 3 zolpidem 10 mg Tab Commonly known as: AMBIEN take 1 tablet by mouth at bedtime Refills: 0 Follow-Up Appointments Future Appointments Date Time Provider Department Center 10/16/2022 9:00 AM LABORATORY, [place] [facility] [place] [facility] 10/16/2022 10:00 AM Faith Caba MD [facility] [place] [facility] 10/16/2022 11:00 AM ACCESS ROOM [facility] [place] [place] [address] [place] [address] Date and Time Provider and Specialty Location 08/24/2022 at 10:40am Kennedi Shaver MD , PCP [address] / [facility] [address] Your Inpatient Doctor(s) at [facility]: MD Harrison Fay MD Your Primary Care Provider: MD [address] / [facility] [id number] For questions regarding this document or issues relating to this hospitalization on the Hospital Medicine Service, please contact the on-call Hospitalist through the [facility] [place] . DO NOT attempt to contact your care team through the nurse's station. documented in this encounter Medications at Time [...] mg of Tylenol in 24 hours. 12/20/2022 finasteride (Proscar) 5 mg Tablet Take 1 [...] daily. Brand name only. 60 tablet 11 08/17/2022 09/11/2022 predniSONE (Deltasone) 5 mg Tablet Take 1 tablet by mouth daily. 30 tablet 11 08/17/2022 11/14/2022 documented as of this encounter Progress Notes * Milton Soto MD - 08/17/2022 5:47 PM EST Hospital Medicine - Attending Day of Discharge Documentation Discharge diagnosis Active Hospital Problems Diagnosis ??? GI bleed ??? Acute blood loss anemia Resolved Hospital Problems No resolved problems to display. Secondary Issues Active Non-Hospital Problems Diagnosis ??? Hypertension ??? 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 GERD (gastroesophageal reflux disease) I have personally seen and examined the patient and they are ready for discharge. I spent <30 minutes (Day of Discharge Code 14038) involved in the final examination of the patient, discussion of the hospital stay, instructions for continuing care to all relevant caregivers, and preparation of discharge records, prescriptions and referral forms. Plans ? Discharge to home ? Follow-up scheduled with PCP ? Please see the Discharge Summary for complete details of any medication changes and additional plans. MILTON SOTO MD 08/24/2022 * Faye Sahu RN - 08/17/2022 3:14 PM EST Pt PIV removed without difficulty, catheter intact. AVS printed and reviewed with pt and spouse. All questions answered. Pt to be transported home via private transport. * Olesya Zimmerman PA - 08/17/2022 7:01 AM EST Interventional Radiology Inpatient Progress Note Admitted 08/14/2022 Procedure(s): Mesenteric angiography without intervention Post-procedure day: #2 24 Hour Events: No acute events overnight. -Colonoscopy yesterday- diverticulosis with no active bleeding, visible vessel in the ascending colon which was noted to be a plausible source of recent bleeding s/p clipping Last Value 24 Hour Range Temperature 36.7 ??C (98.1 ??F) Temp: [36.4 ??C (97.5 ??F)-36.9 ??C (98.4 ??F)] Heart Rate 68 Heart Rate: [68] Blood Pressure 118/70 BP: (111-141)/(60-75) Respiratory Rate 16 Resp: [16-18] SpO2 94 % SpO2: [90 %-100 %] Labs: Reviewed-- Recent Labs 08/17/22 0122 08/16/22 1755 08/16/22 1320 08/16/22 0737 08/16/22 0142 08/15/22 1419 08/15/22 0618 WBC 5.3 -- -- -- 5.4 -- 6.0 HGB 7.1* 7.1* 7.4* 8.4* < > 7.9* < > 7.8* 7.8* HCT 20.8* 20.8* 21.4* 24.8* < > 22.9* < > 23.4* 23.4* PLATELET 203 -- -- -- 193 -- 187 < > = values in this interval not displayed. Assessment: 76 y.o. male with PMH of prostate CA currently admitted to medical floor for BRBPR withCT GI Bleed with suspicious findings s/p mesenteric angiogram without intervention POD #2. Hemoglobin has downtrended from 8.4 to 7.1. Last transfusion was prior to IR procedure. Vital signs are stable. There have been no further bloody BMs. Colonoscopy yesterday showed diverticulosis and no activebleeding with clipping of a visible vessel. Plan: IR will sign-off at this time. Please call with further questions and concerns. Olesya Zimmerman PA-C Interventional Radiology IR Provider #[id number] * Emani Gray MD - 08/17/2022 6:46 AM EST Images from the original note were not included. DIVISION OF GASTROENTEROLOGY & HEPATOLOGY CONSULT PROGRESS NOTE REQUESTING PROVIDER: Milton Soto MD NAME: Chidi Carbone : 1945 HPI: 76 y.o./ w/ PMH of OA, prostate ca in remission (previous tx w/Lupron, no radiation), who presentedto the ED d/t BRBPR and feeling light-headed c/f LGIB INTERVAL: -s/p colonoscopy w/identification of bleeding diverticular vessel - clip placed -remains HDS - Hgb 8.4 --> 7.4 --> 7.1 this AM - 1 BM recorded after colonoscopy, no mention of blood - Pt doing well this AM, notes he is eating, feeling better and had 1 normal BM ROS: 10-system ROS negative other than that noted above PAST MEDICAL & SURGICAL HX: No past medical history on file. Past Surgical History: Procedure Laterality Date ??? IR ARTERIOGRAM MESENTERIC 08/15/2022 IR Arteriogram Mesenteric 08/15/2022 Santo Duarte MD [facility] INTERVENTIONL RAD ??? PRO COLONOSCOPY, DIAGNOSTIC N/A 04/19/2015 COLONOSCOPY, DIAGNOSTIC performed by Paula Rocha MD at [facility] ENDOSCOPY ??? PRO DRESSING CHANGE UNDER ANESTHESIA N/A 06/04/2019 DRESSING CHANGE (FOR OTHER THAN RAUSCH) UNDER ANES. (WRVU 0.86) performed by Rodri Villa MD at [facility] MAIN OR ? ? PRO EDG FLEXIBLE TRANSORAL ABLATE TUMOR POLYP/LESION W/DILATION & WIRE N/A 04/19/2015 EGD, TRANSORAL; WITH ABLATION OF TUMOR(S), POLYP(S), OR OTHER LESION(S) performed by Paula Rocha MD at [facility] ENDOSCOPY ??? PRO LAP, ESOPHAGOGAST FUNDOPLASTY 03/08/2014 LAPAROSCOPIC MODESTO FUNDOPLASTY performed by Surendra Garcia MD at [facility] MAIN OR ??? PRO PREP SITE TRUNK/ARM/LEG 1ST 100 SQ CM/1PCT Right 06/04/2019 SURGICAL PREP/CREATION RECIPIENT SITE, FIRST 100 SQ CM, LEGS (WRVU 3.65) performed by Rodri Villa MD at [facility] MAIN OR ? ? PRO SPLIT GRFT TRUNK, ARM, LEG <100SQCM Right 06/04/2019 SPLIT THICK SKIN GRAFT,100 SQ CM OR LESS, LEGS (WRVU 9.9) performed by Rodri Villa MD at [facility] MAIN OR ??? PRO UPPER GI ENDOSCOPY, BIOPSY 11/27/2011 UPPER GASTROINTESTINAL ENDOSCOPY,WITH BIOPSY SINGLE OR MULTIPLE performed by PAULA ROCHA I at [facility] ENDOSCOPY ??? PRO UPPER GI ENDOSCOPY, BIOPSY 04/22/2012 UPPER GASTROINTESTINAL ENDOSCOPY,WITH BIOPSY SINGLE OR MULTIPLE performed by PAULA ROCHA I at [facility] ENDOSCOPY ??? PRO UPPER GI ENDOSCOPY, BIOPSY 05/12/2013 UPPER GASTROINTESTINAL ENDOSCOPY,WITH BIOPSY SINGLE OR MULTIPLE performed by Paula Rocha MD at [facility] ENDOSCOPY ??? PRO UPPER GI ENDOSCOPY, BIOPSY 10/20/2013 UPPER GASTROINTESTINAL ENDOSCOPY,WITH BIOPSY SINGLE OR MULTIPLE performed by Paula Rocha MD at [facility] ENDOSCOPY ??? PRO UPPER GI ENDOSCOPY, BIOPSY N/A 06/29/2015 EGD WITH BIOPSY performed by Paula Rocha MD at [facility] ENDOSCOPY ??? PRO UPPER GI ENDOSCOPY, DIAGNOSTIC N/A 08/15/2022 EGD, UPPER GI ENDOSCOPY performed by Bubba Wallace MD at [facility] ENDOSCOPY ??? UPPER GI ENDOSCOPY, EXAM 02/13/2011 UPPER GI ENDOSCOPY performed by PAULA ROCHA I at [facility] ENDOSCOPY ??? UPPER GI ENDOSCOPY, EXAM 05/12/2013 UPPER GI ENDOSCOPY performed by Paula Rocha MD at [facility] ENDOSCOPY ??? UPPER GI ENDOSCOPY, EXAM N/A 04/19/2015 UPPER GI ENDOSCOPY performed by Paula Rocha MD at [facility] ENDOSCOPY ??? UPPER GI ENDOSCOPY, TUMOR ABLATN 04/22/2012 ENDOSCOPY, UPPER GI, W\ABLATION TUMOR\POLYP\LESION performed by PAULA ROCHA I at [facility] ENDOSCOPY SOCIAL HX: Social History Socioeconomic History ??? Marital status: Spouse name: Not on file ??? Number of children: Not on file ??? Years of education: Not on file ??? Highest education level: Not on file Occupational History ??? Not on file Tobacco Use ??? Smoking status: Former Years: 15.00 Types: Cigarettes Quit date: 1977 Years since quittin.9 ??? Smokeless tobacco: Never Vaping Use ??? Vaping Use: Never used Substance and Sexual Activity ??? Alcohol use: Yes Alcohol/week: 14.0 standard drinks Types: 14 Glasses of wine per week ??? Drug use: No ??? Sexual activity: Not on file Other Topics Concern ??? Not on file Social History Narrative ??? Not on file Social Determinants of Health Financial Resource Strain: Not on file Food Insecurity: Not on file Transportation Needs: Not on file Physical Activity: Not on file Housing Stability: Not on file FAMILY HX: Family History Problem Relation Age of Onset ??? Diabetes Neg Hx MEDICATIONS Medication list personally reviewed Home Meds: Medications Prior to Admission Medication Sig Dispense Refill Last Dose ??? abiraterone (Zytiga) 500 mg Tablet Take 1,000 mg by mouth daily. Brand name only. 60 tablet 11 08/14/2022 ??? Provigil 100 mg Tablet take 1 tablet by mouth once daily 08/14/2022 ??? pantoprazole EC (Protonix) 40 mg Tablet, Delayed Release (E.C.) take 1 tablet by mouth twice a day 08/13/2022 ??? zolpidem (AMBIEN) 10 mg Tablet take 1 tablet by mouth at bedtime 08/13/2022 ??? leuprolide acetate (LUPRON DEPOT IM) Inject into the muscle. Once every 3 months, dosage unknown Past Month ??? tamsulosin (FLOMAX) 0.4 mg Capsule Take 0.4 mg by mouth daily. 08/13/2022 ??? finasteride (PROSCAR) 5 mg Tablet Take 5 mg by mouth daily. 08/13/2022 ??? predniSONE (DELTASONE) 5 mg Tablet Take 1 tablet by mouth daily. 30 tablet 11 08/14/2022 Current Meds: Scheduled: Drips: PRN: Allergies: No Known Allergies OBJECTIVE Vitals: T Temp: [36.4 ??C (97.5 ??F)-36.9 ??C (98.4 ??F)] HR Heart Rate: [68] BP BP: (111-141)/(60-75) RR Resp: [16-18] SpO2 SpO2: [90 %-100 %] 08/16 0701 - 08/17 0700 In: - Out: 1800 Wt Last 80.7 kg (178 lb) Admit 80.74 kg Physical Exam: CONST: Awake, alert, no acute distress HEENT: sclerae anicteric, moist mucous membranes, no oral thrush RESP: normal RR, air entry equal bilaterally, no rales/rhonchi CARDIAC: RRR, normal S1/S2, no appreciable murmurs GI: abdomen soft, non-tender, non-distended, normoactive bowel sounds, tympanic to percussion MSK: legs warm, palpable pulses b/l, no significant edema SKIN: No jaundice, rash, or bruising NEURO: Grossly intact, moves all extremities, no asterixis PSYCH: Pleasant, appropriate affect Labs: Labs personally reviewed in eD CBC: Recent Labs 08/17/22 0122 08/16/22 1755 08/16/22 1320 08/16/22 0737 08/16/22 0142 08/15/22 1807 08/15/22 1419 08/15/22 0618 08/14/22 1814 08/14/22 1734 08/14/22 1205 WBC 5.3 -- -- -- 5.4 -- -- 6.0 -- 5.2 6.7 HGB 7.1* 7.1* 7.4* 8.4* 7.3* 7.9* 8.1* 8.1* 7.8* 7.8* < > 6.1* 7.4* PLATELET 203 -- -- -- 193 -- -- 187 -- 213 250 MCV 87.0 -- -- -- 85.8 -- -- 88.0 -- 90.6 89.8 RDWCV 14.5* -- -- -- 14.6* -- -- 14.0* -- 12.8 12.9 < > = values in this interval not displayed. COAG: No results for input(s): PTT, INR, PT in the last 168 hours. CHEM: Recent Labs 08/17/22 0122 08/16/22 1320 08/16/22 0142 08/15/22 0618 08/14/22 1205 CREATININE 0.74* 0.81 0.76* 0.57* 0.85 BUN 9* 8* 10 16 19 NA 144 142 142 143 143 K 3.8 3.3* 3.0* 3.4* 3.5 CL 112* 106 107 112* 109* CO2 27 24 24 21* 24 MAGNESIUM 0.76 -- 0.74 0.78 -- CALCIUM 7.9* 8.5 8.0* 7.8* 8.7 HEPATIC: No results for input(s): BILITOT, BILIDIR, ALKPHOS, AST, ALT, ALBUMIN, LIPASE in the last 168 hours. Invalid input(s): TPROT INFLAMM: No results for input(s): CRP in the last 168 hours. IMAGING: Reports and images personally reviewed in [facility]. Images independently interpreted. IR Arteriogram Mesenteric Final Result Impression: No evidence of active arterial GI bleeding involving the superior mesenteric, inferior mesenteric, or celiac arteries. Uneventful closure device right common femoral artery. Thank you for letting us participate in the care of this patient. If you are a health care provider and have any questions regarding this report, please contact the number below. For patients who have questions please contact the health healthcare marketer that requested your imaging first. Electronically signed by: Santo Duarte MD, [facility] ([phone]), at 08/15/2022 4:[address] Abdomen & Pelvis wwo Contrast (GI BLEED) Final Result 1. No evidence of active GI bleeding. 2. Hyperemia of the anal mucosa without definitive bleeding. Please correlate with physical exam findings to exclude hemorrhoids. 3. Subtle irregularity of the right posterior 11th rib, may represent a nondisplaced fracture. Please correlate with pin point tenderness on physical exam. There is no associated suspicious lesion at this irregularity, clinical concern for site of prostatic metastasis, recommend further evaluation with nuclear medicine bone scan. 4. Recurrent small hiatal hernia status post [place]. Preliminary report signed by: Glenroy Castillo at 08/15/2022 6:47 AM I have personally reviewed the image(s) and the resident's interpretation and agree with the findings, Tr Rivera MD at 08/15/2022 7:44 AM Thank you for letting us participate in the care of this patient. If you are a health care provider and have any questions regarding this report, please contact the number below. For patients who have questions please contact the health healthcare marketer that requested your imaging first. SCOPY: Reports and images personally reviewed in [facility] 03/2015 Colonoscopy: Impression: ?- The examined portion of the ileum ?was normal. ?- Moderate diverticulosis in the ?entire examined colon. ?- The examination was otherwise ?normal. ?- No specimens collected. 05/2015 EGD: - Z-line regular, 35 cm from the ?incisors. Treated with radiofrequency ?ablation. Biopsied. ?- An anti-reflux surgical site was ?found. ?- Normal examined duodenum. ASSESSMENT & PLAN: 76 yo M w/ PMH of OA, prostate ca in remission (previous tx w/Lupron, no radiation), who presented to the ED d/t BRBPR and feeling light-headed ultimately c/f LGIB. Now s/p colonoscopy w/identification of diverticular bleed - We were able to localize the vessel inthe diverticulum that was bleeding and placed a clip in the ascending colon. Overall he appears to be doing much better w/only 1BM since which was normal, tolerating PO and appears much more awake and alert today. We discussed with him he will need outpt colonoscopy shortly for polyps identified during colonoscopy for bleeding (generally avoid taking out polyps when scoping for bleeding purposes). Pt amenable to this plan, we will arrange. We will sign off, please page or call if any concerns. Recommendations: - Will need outpt colonoscopy in next 1-2 mo for CRC screening (at least 1 polyp seen during colonoscopy for diverticular bleed) - we will arrange Patient seen with Dr. Rodrigo Gray MD PGY-4, Gastroenterology Associated attestation - Bubba Wallace MD - 08/17/2022 9:34 AM EST I have independently seen and examined the patient, and have reviewed the resident???s above note, and agree with the documented history, physical findings, and study results; my evaluation of the patient is below: I met with Mr Raf helm agree with the plan as outlined by Dr Isaac Wallace MD * Denzel Arboleda RN - 08/17/2022 2:45 AM EST [facility]West Progress Note Gas/BM: Positive for flatus and BM Pain: Denies pain NG/Nausea: Denies nausea Diet: Tolerating regular diet Voiding: Adequate UOP Mobility: Independent, OOB to bathroom, pt states I use a cane unless it's just the bathroom Central Line/Drain/VAC/Ostomy: N/A Skin/Incision: R groin puncture, dressing intact; scattered scarring Tele: N/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 Fall precautions in place, belongings within reach. Will continue to monitor for patient needs and safety. * Denise Blas RN - 08/16/2022 5:40 PM EST OUTCOME EVALUATION NOTE: OUTCOME SUMMARY: No reports of SOB, chest pain, or n/v throughout shift. Pain controlled adequately with scheduled and PRN medications, see MAR. Pt A&Ox4 throughout shift. Pt finished bowel prep this morning. Colonoscopy done this afternoon, bleeding vessel found and clipped. Clears, then regular diet upon return. Clears tolerated. K and Hemogram trended this shift, q6 H/H. Chemo precautions initiated for home medication administration. VSS, will continue to monitor. PLAN MOVING FORWARD: Pain control Mobilize H/H trending K trending Advance diet D/c planning INDIVIDUALIZED FALL PREVENTION INTERVENTIONS: Patient-specific fall risk factors per assessment: [current deficits]: Hospital environment, pain, pain medications Assistance [level of assistance required for transfers and ambulation]: SBA Supervision [direct monitoring required during toileting and ADLs]: Eyes on, hands on Surveillance [continuous indirect monitoring]: JIGNESH Stevenson, bed alarm * Milton Soto MD - 08/16/2022 7:17 AM EST Inpatient Medicine Progress Note Active Hospital Problems: Hospital Day 2 days Active Hospital Problems Diagnosis ??? GI bleed ??? Acute blood loss anemia Resolved Hospital Problems No resolved problems to display. ID: 76 y.o. male with PMH of Metastatic prostate cancer, bilateral knee OA, and diverticulosis on apast colonoscopy here for hematochezia. Overnight Events: 1800 - hg 8.1 1920 - pt complains of nausea with bowel prep, advised nurse to give prn zofran 2200 - pt continues to be nauseous and cannot tolerate prep, added ativan 0.5 mg q6 for 2 doses 0040- nausea returned, one time dose of ativan 0.5 mg given 0120 - s/p 3 L prep, BM still murky, pt cannot tolerate more prep at this time. Asked nurse to update on BM. 0250 - K was 3, pt too nauseous for po K, ordered IV K 10 mEq q2 hrs for 4 doses. Recheck ordered for 11AM. 0450 - per nurse, pt has not yet finished prep, he states that he wanted to sleep at 3 AM due to being too tired. Advised nurse to encourage prep intake to ensure colonoscopy can be done today. 0600 - spoke to GI, pt still not well prepped, recommend 1 more liter of prep and more ativan with plans to do colonoscpy this afternoon. 1L prep ordered, last dose of ativan was given at 0451, did not order next ativan dose Subjective: Patient reported he feels ok. Denied dizziness, CP, SOB, changes in vision, palpitation, abdominal pain. Reported he was able to rest well overnight. Nursing reported his stool is dark watery w/o anysediments and pt only able to tolerate nausea with ativan Consults: Physical Exam: Last value Range last 24 hrs Temperature Temp: 36.9 ??C (98.4 ??F) Temp: [36.1 ??C (97 ??F)-37 ??C (98.6 ??F)] Heart Rate Heart Rate: 62 Heart Rate: [62] Blood Pressure BP: 132/68 BP: (110-146)/(66-93) Respiratory Rate Resp: 16 Resp: [14-18] SpO2 SpO2: 95 % SpO2: [94 %-100 %] IO 08/15 0701 - 08/16 0700 In: 4450 [P.O.:4100; I.V.:150] Out: 1345 Wt (last/admit) 80.7 kg (178 lb) 80.74 kg Ins/Outs: Intake/Output Summary (Last 24 hours) at 08/16/2022 0926 Last data filed at 08/16/2022 0600 Gross per 24 hour Intake 4450 ml Output 745 ml Net 3705 ml General: NAD, sleepy but able to answer appropriately Lungs: CTAB Heart: RRR systolic murmur Abdomen: soft nontender, BS+, no masses Extremities: no edema Labs: Laboratory: CBC: Recent Labs 08/16/22 0737 08/16/22 0142 08/15/22 1807 08/15/22 1419 08/15/22 0618 08/14/22 1814 08/14/22 1734 WBC -- 5.4 -- -- 6.0 -- 5.2 HGB 7.3* 7.9* 8.1* < > 7.8* 7.8* < > 6.1* PLATELET -- 193 -- -- 187 -- 213 < > = values in this interval not displayed. Chemistry: Recent Labs 08/16/22 0142 08/15/22 0618 08/14/22 1205 NA 142 143 143 K 3.0* 3.4* 3.5 CL 107 112* 109* CO2 24 21* 24 BUN 10 16 19 CREATININE 0.76* 0.57* 0.85 GLUCOSE 111 109 112 Recent Labs 08/16/22 0142 08/15/22 0618 08/14/22 1205 CALCIUM 8.0* 7.8* 8.7 MAGNESIUM 0.74 0.78 -- PHOS 3.3 3.5 -- LFT's: Recent Labs 07/10/22 0847 04/10/22 0854 01/09/22 0935 BILITOT 0.9 0.9 0.8 ALBUMIN 4.3 4.4 4.3 ALKPHOS 97 91 99 ALT 10 15 10 AST 16 17 16 Coags: No results for input(s): PT, INR, PTT, FIBRINOGEN, DDIMER in the last 168 hours. Invalid input(s): THROMBIN TIME Cardiac enzymes: No results for input(s): TROPONINT, CK, PROBNP in the last 7068 hours. Endocrine: No results for input(s): TSH, CORTISOL in the last 7068 hours. Invalid input(s): [id number] No results for input(s): HA1C in the last 7068 hours. Heme: No results for input(s): LDH, HAPTOGLOBIN, URICACID in the last 168 hours. Lipids: Imaging/Studies: Scheduled Medications: ??? potassium chloride 10 mEq Intravenous Q2H ??? polyethylene glycol (GoLYTELY) with electrolytes BOWEL PREP powder for solution 2,000 mL Oral Once ??? finasteride 5 mg Oral Nightly ??? predniSONE 5 mg Oral Daily ??? tamsulosin 0.4 mg Oral Nightly ??? sodium chloride 0.9 % (flush) 5 mL Intravenous BID ??? pantoprazole EC 40 mg Oral BID ??? abiraterone 1,000 mg Oral Daily PRN Medications: prochlorperazine, zolpidem, polyethylene glycol (GoLYTELY) with electrolytes BOWEL PREP powder for solution, sodium chloride 0.9 % (flush), lidocaine, melatonin, Oral Chemotherapy Assessment: 76 y.o. male w/ PMHx of Metastatic prostatic cancer, bilateral knee OA here for hematochezia. Patient was planned for colonoscopy and undergoing bowel prep 08/14 PM. Patient continued to experience Large volume hematochezia 08/14PM and 08/15 AM. Patient underwent CTAP and mesenteric angiogramwhich was inconclusive. EGD was also unrevealing except for esophagitis. Patient received 3u RBC intotal. Patient's Hgb has stabilized around 8 starting 08/15 PM and has not required further transfusion. Patient has remained HDS. GI rec colonoscopy 08/16 PM, avoid NSAIDs, PPI BID, 2 mo outpatient EGD f/u. Patient's stool output now is w/o ky blood. Patient had hypokalemia ovn: will replete and recheck Summary of Today's Plan (08/16/22): - Bowel prep for colonoscopy PM Plan by problem: # LGIB GI Consulted --Upper endoscopy was unrevealing except for esophagitis --Avoid NSAIDs, PPI BID --colonoscopy today 08/16 PM Continue Hgb q6-8 hr Will give compazine instead of ativan for nausea Outpatient: #Esophagitis 2 mo outpatient EGD f/u # PPx: - GI: Protonix 40 mg BID - Diet: NPO - Lines/Tubes: - Dispo: pending - Alternative Medical Decision Maker: and daughter - Code Status: Full code Jacy Jordan MD Internal Medicine, PGY1 ?? M2 Hospital Medicine Service Attending Documentation ?? I certify that the patient requires: [x] inpatient care status due to acute lower GI bleed with acute blood loss anemia requiring close monitoring and multiple blood transfusions thus far. [ ] Observation Care ?? Please see Dr. Jordan's note for details of the patient history of presentation and data. I have examined the patient myself and personally reviewed all studies. I have discussed, reviewed and agree with the documented History, Physical findings, Assessment and Plan of care. MILTON SOTO MD 08/16/2022 * Olesya Zimmerman PA - 08/16/2022 7:03 AM EST Interventional Radiology Inpatient Progress Note Admitted 08/14/2022 Procedure(s): Mesenteric angiography without intervention Post-procedure day: #1 Time of patient encounter: 09:00 24 Hour Events: No acute events overnight. 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 Labs: Reviewed-- Recent Labs 08/16/22 0737 08/16/22 0142 08/15/22 1807 08/15/22 1419 08/15/22 0618 08/14/22 1814 08/14/22 1734 WBC -- 5.4 -- -- 6.0 -- 5.2 HGB 7.3* 7.9* 8.1* < > 7.8* 7.8* < > 6.1* HCT 21.5* 22.9* 23.1* < > 23.4* 23.4* < > 18.3* PLATELET -- 193 -- -- 187 -- 213 < > = values in this interval not displayed. Assessment: 76 y.o. male with PMH of prostate CA currently admitted to medical floor for BRBPR withCT GI Bleed with suspicious findings s/p mesenteric angiogram without intervention POD #1. Access site looks well. Yesterday morning, patient went for EGD that showed esophagitis without active bleeding. Last bloody BM was yesterday afternoon. Hemoglobin is stable in high 7s/low 8s. Last RBC transfusion was prior to IR procedure. Vital signs are stable. Patient is scheduled for colonoscopy this morning. Plan: IR will continue to follow. Monitor R groin access site. Please page with further questions and concerns. Olesya CHOIC Interventional Radiology IR Provider #[id number] * Emani rGay MD - 08/16/2022 6:09 AM EST Images from the original note were not included. DIVISION OF GASTROENTEROLOGY & HEPATOLOGY CONSULT PROGRESS NOTE REQUESTING PROVIDER: Milton Soto MD NAME: Chidi Carbone : 1945 HPI: 76 y.o./ w/ PMH of OA, prostate ca in remission (previous tx w/Lupron, no radiation), who presentedto the ED d/t BRBPR and feeling light-headed c/f LGIB INTERVAL: - Pt to IR for potential embolization - no bleeding seen, no embolization - S/p EGD w/o etiology for anemia - Challenging prep overnight, pending colo today - Hgb 6.7 --> 7.8 --> 8.1 --> 7.9 in last 24 hrs - No episodes of large melena; continues to have blood mixed stools ROS: 10-system ROS negative other than that noted above PAST MEDICAL & SURGICAL HX: No past medical history on file. Past Surgical History: Procedure Laterality Date ??? IR ARTERIOGRAM MESENTERIC 08/15/2022 IR Arteriogram Mesenteric 08/15/2022 Santo Duarte MD [facility] INTERVENTIONL RAD ??? PRO COLONOSCOPY, DIAGNOSTIC N/A 04/19/2015 COLONOSCOPY, DIAGNOSTIC performed by Paula Rocha MD at [facility] ENDOSCOPY ??? PRO DRESSING CHANGE UNDER ANESTHESIA N/A 06/04/2019 DRESSING CHANGE (FOR OTHER THAN RAUSCH) UNDER ANES. (WRVU 0.86) performed by Rodri Villa MD at [facility] MAIN OR ? ? PRO EDG FLEXIBLE TRANSORAL ABLATE TUMOR POLYP/LESION W/DILATION & WIRE N/A 04/19/2015 EGD, TRANSORAL; WITH ABLATION OF TUMOR(S), POLYP(S), OR OTHER LESION(S) performed by Paula Rocha MD at [facility] ENDOSCOPY ??? PRO LAP, ESOPHAGOGAST FUNDOPLASTY 03/08/2014 LAPAROSCOPIC MODESTO FUNDOPLASTY performed by Surendra Garcia MD at [facility] MAIN OR ??? PRO PREP SITE TRUNK/ARM/LEG 1ST 100 SQ CM/1PCT Right 06/04/2019 SURGICAL PREP/CREATION RECIPIENT SITE, FIRST 100 SQ CM, LEGS (WRVU 3.65) performed by Rodri Villa MD at [facility] MAIN OR ? ? PRO SPLIT GRFT TRUNK, ARM, LEG <100SQCM Right 06/04/2019 SPLIT THICK SKIN GRAFT,100 SQ CM OR LESS, LEGS (WRVU 9.9) performed by Rodri Villa MD at [facility] MAIN OR ??? PRO UPPER GI ENDOSCOPY, BIOPSY 11/27/2011 UPPER GASTROINTESTINAL ENDOSCOPY,WITH BIOPSY SINGLE OR MULTIPLE performed by PAULA ROCHA I at [facility] ENDOSCOPY ??? PRO UPPER GI ENDOSCOPY, BIOPSY 04/22/2012 UPPER GASTROINTESTINAL ENDOSCOPY,WITH BIOPSY SINGLE OR MULTIPLE performed by PAULA ROCHA I at [facility] ENDOSCOPY ??? PRO UPPER GI ENDOSCOPY, BIOPSY 05/12/2013 UPPER GASTROINTESTINAL ENDOSCOPY,WITH BIOPSY SINGLE OR MULTIPLE performed by Paula Rocha MD at [facility] ENDOSCOPY ??? PRO UPPER GI ENDOSCOPY, BIOPSY 10/20/2013 UPPER GASTROINTESTINAL ENDOSCOPY,WITH BIOPSY SINGLE OR MULTIPLE performed by Paula Rocha MD at [facility] ENDOSCOPY ??? PRO UPPER GI ENDOSCOPY, BIOPSY N/A 06/29/2015 EGD WITH BIOPSY performed by Paula Rocha MD at [facility] ENDOSCOPY ??? UPPER GI ENDOSCOPY, EXAM 02/13/2011 UPPER GI ENDOSCOPY performed by PAULA ROCHA I at [facility] ENDOSCOPY ??? UPPER GI ENDOSCOPY, EXAM 05/12/2013 UPPER GI ENDOSCOPY performed by Paula Rocha MD at [facility] ENDOSCOPY ??? UPPER GI ENDOSCOPY, EXAM N/A 04/19/2015 UPPER GI ENDOSCOPY performed by Paula Rocha MD at [facility] ENDOSCOPY ??? UPPER GI ENDOSCOPY, TUMOR ABLATN 04/22/2012 ENDOSCOPY, UPPER GI, W\ABLATION TUMOR\POLYP\LESION performed by PAULA ROCHA I at [facility] ENDOSCOPY SOCIAL HX: Social History Socioeconomic History ??? Marital status: Spouse name: Not on file ??? Number of children: Not on file ??? Years of education: Not on file ??? Highest education level: Not on file Occupational History ??? Not on file Tobacco Use ??? Smoking status: Former Years: 15.00 Types: Cigarettes Quit date: 1977 Years since quittin.9 ??? Smokeless tobacco: Never Vaping Use ??? Vaping Use: Never used Substance and Sexual Activity ??? Alcohol use: Yes Alcohol/week: 14.0 standard drinks Types: 14 Glasses of wine per week ??? Drug use: No ??? Sexual activity: Not on file Other Topics Concern ??? Not on file Social History Narrative ??? Not on file Social Determinants of Health Financial Resource Strain: Not on file Food Insecurity: Not on file Transportation Needs: Not on file Physical Activity: Not on file Housing Stability: Not on file FAMILY HX: Family History Problem Relation Age of Onset ??? Diabetes Neg Hx MEDICATIONS Medication list personally reviewed Home Meds: Medications Prior to Admission Medication Sig Dispense Refill Last Dose ??? abiraterone (Zytiga) 500 mg Tablet Take 1,000 mg by mouth daily. Brand name only. 60 tablet 11 08/14/2022 ??? Provigil 100 mg Tablet take 1 tablet by mouth once daily 08/14/2022 ??? pantoprazole EC (Protonix) 40 mg Tablet, Delayed Release (E.C.) take 1 tablet by mouth twice a day 08/13/2022 ??? zolpidem (AMBIEN) 10 mg Tablet take 1 tablet by mouth at bedtime 08/13/2022 ??? leuprolide acetate (LUPRON DEPOT IM) Inject into the muscle. Once every 3 months, dosage unknown Past Month ??? tamsulosin (FLOMAX) 0.4 mg Capsule Take 0.4 mg by mouth daily. 08/13/2022 ??? finasteride (PROSCAR) 5 mg Tablet Take 5 mg by mouth daily. 08/13/2022 ??? predniSONE (DELTASONE) 5 mg Tablet Take 1 tablet by mouth daily. 30 tablet 11 08/14/2022 Current Meds: Scheduled: Drips: PRN: Allergies: No Known Allergies OBJECTIVE Vitals: T Temp: [36.1 ??C (97 ??F)-37 ??C (98.6 ??F)] HR Heart Rate: [59-68] BP BP: (110-158)/(66-93) RR Resp: [11-21] SpO2 SpO2: [94 %-100 %] 08/15 0701 - 08/16 0700 In: 4450 [P.O.:4100; I.V.:150] Out: 1345 Wt Last 80.7 kg (178 lb) Admit 80.74 kg Physical Exam: CONST: Awake, alert, no acute distress HEENT: sclerae anicteric, moist mucous membranes, no oral thrush RESP: normal RR, air entry equal bilaterally, no rales/rhonchi CARDIAC: RRR, normal S1/S2, no appreciable murmurs GI: abdomen soft, non-tender, non-distended, normoactive bowel sounds, tympanic to percussion MSK: legs warm, palpable pulses b/l, no significant edema SKIN: No jaundice, rash, or bruising NEURO: Grossly intact, moves all extremities, no asterixis PSYCH: Pleasant, appropriate affect Labs: Labs personally reviewed in [facility] CBC: Recent Labs 08/16/22 0142 08/15/22 1807 08/15/22 1419 08/15/22 0618 08/15/22 0050 08/14/22 2213 08/14/22 1814 08/14/22 1734 08/14/22 1205 WBC 5.4 -- -- 6.0 -- -- -- 5.2 6.7 HGB 7.9* 8.1* 8.1* 7.8* 7.8* 6.5* 6.9* 6.6* 6.1* 7.4* PLATELET 193 -- -- 187 -- -- -- 213 250 MCV 85.8 -- -- 88.0 -- -- -- 90.6 89.8 RDWCV 14.6* -- -- 14.0* -- -- -- 12.8 12.9 COAG: No results for input(s): PTT, INR, PT in the last 168 hours. CHEM: Recent Labs 08/16/22 0142 08/15/22 0618 08/14/22 1205 CREATININE 0.76* 0.57* 0.85 BUN 10 16 19 NA 142 143 143 K 3.0* 3.4* 3.5 CL 107 112* 109* CO2 24 21* 24 MAGNESIUM 0.74 0.78 -- CALCIUM 8.0* 7.8* 8.7 HEPATIC: No results for input(s): BILITOT, BILIDIR, ALKPHOS, AST, ALT, ALBUMIN, LIPASE in the last 168 hours. Invalid input(s): TPROT INFLAMM: No results for input(s): CRP in the last 168 hours. IMAGING: Reports and images personally reviewed in [facility]. Images independently interpreted. IR Arteriogram Mesenteric Final Result Impression: No evidence of active arterial GI bleeding involving the superior mesenteric, inferior mesenteric, or celiac arteries. Uneventful closure device right common femoral artery. Thank you for letting us participate in the care of this patient. If you are a health care provider and have any questions regarding this report, please contact the number below. For patients who have questions please contact the health healthcare marketer that requested your imaging first. Electronically signed by: Santo Duarte MD, [facility] ([phone]), at 08/15/2022 4:[address] Abdomen & Pelvis wwo Contrast (GI BLEED) Final Result 1. No evidence of active GI bleeding. 2. Hyperemia of the anal mucosa without definitive bleeding. Please correlate with physical exam findings to exclude hemorrhoids. 3. Subtle irregularity of the right posterior 11th rib, may represent a nondisplaced fracture. Please correlate with pin point tenderness on physical exam. There is no associated suspicious lesion at this irregularity, clinical concern for site of prostatic metastasis, recommend further evaluation with nuclear medicine bone scan. 4. Recurrent small hiatal hernia status post [place]. Preliminary report signed by: Glenroy Castillo at 08/15/2022 6:47 AM I have personally reviewed the image(s) and the resident's interpretation and agree with the findings, Tr Rivera MD at 08/15/2022 7:44 AM Thank you for letting us participate in the care of this patient. If you are a health care provider and have any questions regarding this report, please contact the number below. For patients who have questions please contact the health healthcare marketer that requested your imaging first. SCOPY: Reports and images personally reviewed in eD 03/2015 Colonoscopy: Impression: ?- The examined portion of the ileum ?was normal. ?- Moderate diverticulosis in the ?entire examined colon. ?- The examination was otherwise ?normal. ?- No specimens collected. 05/2015 EGD: - Z-line regular, 35 cm from the ?incisors. Treated with radiofrequency ?ablation. Biopsied. ?- An anti-reflux surgical site was ?found. ?- Normal examined duodenum. ASSESSMENT & PLAN: 76 yo M w/ PMH of OA, prostate ca in remission (previous tx w/Lupron, no radiation), who presented to the ED d/t BRBPR and feeling light-headed ultimately c/f LGIB. Overall, suspicion has been high for diverticular bleed given the associated abd pain and episode of BRBPR after this, paired with the fact it slowed or essentially stopped the day after admission. He is s/p IR w/o embolization given no active bleeding. Continued to have BRBPR today, now s/p colonoscopy. While usually the rate of finding diverticular bleeds is low (given they stop and start), we were able to localize the vessel in the diverticulum that was bleeding and placed a clip - this was in the ascending colon. Would continue to trend H/H and transfuse Hgb < 7. Please let us know if any other significant BRBPR. If he becomes unstable, would try to repeat CT GI bleed protocol with po tential IR intervention. Recommendations: - Trend H/H - 2 large bore IVs - Transfuse Hgb < 7 - If unstable, repeat CT GI bleed protocol - Please let us know if any significant BRBPR - Will need outpt colonoscopy in next 1-2 mo for CRC screening (at least 1 polyp seen during colonoscopy for diverticular bleed) - we will arrange Patient seen with Dr. Rodrigo Gray MD PGY-4, Gastroenterology Associated attestation - Bubba Wallace MD - 08/17/2022 9:29 AM EST I have independently seen and examined the patient, and have reviewed the resident???s above note, and agree with the documented history, physical findings, and study results; my evaluation of the patient is below: I met with Mr Raf in follow up who was eating breakfast without further overt bleeding. I agree with he plan as outlined by DR Isaac Wallace MD * Starla Warner RN - 08/15/2022 9:25 PM EST Pt unable to tolerate bowel prep after 1x PRN IV nausea med given. MD notified. Pt unable to tolerate prep again. 1x Ativan dose given. Starla Warner RN * Marisa Pascual RN - 08/15/2022 3:25 PM EST OUTCOME EVALUATION NOTE: OUTCOME SUMMARY: VSS on RA, A&Ox4. Patient reporting 0/10 pain. Pt to IR for arteriogram in AM, dressing to R groin CDI. Pt to Endo for endoscopy in afternoon, pt returned and diet adjusted to clear liquids untilmidnight- then NPO. Pt tolerating clear liquids diet well. Able to ambulate to bathroom for BMx 3- ky blood (team aware). Patient cooperative with care and resting between care. No adverse events this shift. 1800- pt given bowel prep- dry heaving and nauseated. MD notified and ordered IV Zofran to be givenand pt to continue PO bowel prep. Will continue to monitor and help patient reach d/c goals. PLAN MOVING FORWARD: Pain control Mobilize D/c planning Bowel Prep NPO @ midnight INDIVIDUALIZED FALL PREVENTION: Patient is currently a high risk to Fall. Patient educated on bed/chair alarm, demonstrates proper use of call lundy and verbalizes understanding of fall preventions implemented. Patient-specific fall risk factors per assessment: [current deficits]: Pain, Medications, Hospital Environment. Assistance [level of assistance required for transfers and ambulation]: SBA w/ cane Supervision [direct monitoring required during toileting and ADLs]: Eyes on per unit protocol when OOB/with ADL's Surveillance [continuous indirect monitoring]: Amena Stevenson [place], Nurse Knowledge Exchange * Martinez Galaviz - 08/15/2022 2:50 PM EST Clerical Associate Encounter Note Patient Name: Chidi Carbone : [id number] MR#: [id number] Admit Date: 08/14/2022 11:40 AM Hospital Day 1 day Narrative:Visited to introduce and assess acceptance of Clerical Associate services. Assessment: Patient was awake, alert, oriented and in bed. Patient coping positively with stresses of illness/hospitalization at this time. Patient says that he is hoping to get better and has familycare and support and seems to be thankful. Intervention and Outcome:Provided emotional, spiritual support and listening presence. Clerical Associate services accepted. Conversation to build trusting relationship. Provided pastoral presence. Provided spiritual guidance. Follow-up: yes Time in Direct Care:10 Mins Martinez Galaviz 08/15/2022 * Sintia Carpio RN - 08/15/2022 6:31 AM EST ANGIO NURSING DATABASE Name: Chidi Carbone Date of : 1945 AGE: 76 y.o. Address: [address] [address] (home) Mobile: Telephone Information: Referring Provider: No ref. provider found REASON FOR VISIT: There are no answered order specific questions. No data recorded No Known Allergies Pertinent PMH: Patient Active Problem List Diagnosis Code ??? GERD (gastroesophageal reflux disease) K21.9 ??? 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 Hypertension I10 ??? GI bleed K92.2 Date/Procedure Meds Given/Comments 08/15/22 Mesenteric Arteriogram 100 mcg Fentanyl IV, 2 mg Versed IV 0730 to procedure room 2 via stretcher. Onto table supine. All monitors, O2, safety strap in place.Meds per protocol. Arterial Puncture Post Procedure Time of Arterial Puncture: 0750 Site: Right Groin Closure device used: Starclose Time sheath removed: 822 Time of hemostasis: 826 Hematoma present?: No Anticipated up time: Laboratory Results: Lab Results Component Value Date CREATININE 0.85 08/14/2022 Lab Results Component Value Date K 3.5 08/14/2022 Lab Results Component Value Date PLATELET 213 08/14/2022 * Milton Soto MD - 08/15/2022 6:23 AM EST Inpatient Medicine Progress Note Active Hospital Problems: Hospital Day 1 day Active Hospital Problems Diagnosis ??? GI bleed ??? Acute blood loss anemia Resolved Hospital Problems No resolved problems to display. Ovn Events: 2300 - paged bc pt was anxious about large volume hematochezia. Nursing noted 1L of output from theprep. Pt states that he is feeling weak and lightheaded, and was concerned about the bloody BM. Paged GI - recommended continuing prep and transfusions, and contact IR for earlier intervention. Reassured patient and advised to continue drinking prep for colonoscopy tomorrow. Reassured that we will continue transfusing him if needed. 2315- post-transfusion H&H 6.9, another unit of blood ordered. 0020 - life safety was called due to large volume blood (500 - 1L of blood no stool), stat HH ordered, stopped prep, IR paged, recommended stat CT gi bleed and possible procedure after. CT ordered. 0050 - stat HH resulted at 6.5, another unit of blood ordered NPO midnight Golytely was DCed at 0301 No oral intake recorded ovn No beverages or drinks at bedside per nurse Likely patient's last oral intake was no later than 0301 IR aware of patient, procedure if CT gi protocol shows bleed 0640: IR CT inconclusive: IR will consent and take patient to mesenteric angio Received 3x unit of RBC in total ID: 76 y.o. male with PMH of Metastatic prostatic cancer, bilateral knee OA here for hematochezia. Interval Events: Denied dizziness, CP, SOB, changes in vision, palpitation, abdominal pain. Reported he was able to rest well overnight Consults: Physical Exam: Last value Range last 24 hrs Temperature Temp: 36.3 ??C (97.4 ??F) Temp: [36.3 ??C (97.4 ??F)-37.3 ??C (99.1 ??F)] Heart Rate Heart Rate: 59 Heart Rate: [59-87] Blood Pressure BP: 142/72 BP: (114-176)/(57-128) Respiratory Rate Resp: 16 Resp: [11-21] SpO2 SpO2: 96 % SpO2: [94 %-100 %] IO 08/14 0701 - 08/15 0700 In: 1048 Out: 2000 Wt (last/admit) 80.7 kg (178 lb) 80.74 kg Ins/Outs: Intake/Output Summary (Last 24 hours) at 08/15/2022 1034 Last data filed at 08/15/2022 0701 Gross per 24 hour Intake 1048 ml Output 2600 ml Net -1552 ml General: NAD, Oriented Lungs: CTAB Heart: RRR systolic murmur Abdomen: soft nontender, BS+, no masses Extremities: no edema Labs: Laboratory: CBC: Recent Labs 08/15/22 0618 08/15/22 0050 08/14/22 2213 08/14/22 1814 08/14/22 1734 08/14/22 1205 WBC 6.0 -- -- -- 5.2 6.7 HGB 7.8* 7.8* 6.5* 6.9* < > 6.1* 7.4* PLATELET 187 -- -- -- 213 250 < > = values in this interval not displayed. Chemistry: Recent Labs 08/15/22 0618 08/14/22 1205 07/10/22 0847 NA 143 143 141 K 3.4* 3.5 4.0 CL 112* 109* 105 CO2 21* 24 26 BUN 16 19 20 CREATININE 0.57* 0.85 0.90 GLUCOSE 109 112 103 Recent Labs 08/15/22 0618 08/14/22 1205 07/10/22 0847 CALCIUM 7.8* 8.7 9.0 MAGNESIUM 0.78 -- -- PHOS 3.5 -- -- LFT's: Recent Labs 07/10/22 0847 04/10/22 0854 01/09/22 0935 BILITOT 0.9 0.9 0.8 ALBUMIN 4.3 4.4 4.3 ALKPHOS 97 91 99 ALT 10 15 10 AST 16 17 16 Coags: No results for input(s): PT, INR, PTT, FIBRINOGEN, DDIMER in the last 168 hours. Invalid input(s): THROMBIN TIME Cardiac enzymes: No results for input(s): TROPONINT, CK, PROBNP in the last 7068 hours. Endocrine: No results for input(s): TSH, CORTISOL in the last 7068 hours. Invalid input(s): [id number] No results for input(s): HA1C in the last 7068 hours. Heme: No results for input(s): LDH, HAPTOGLOBIN, URICACID in the last 168 hours. Lipids: Imaging/Studies: Scheduled Medications: ??? finasteride 5 mg Oral Nightly ??? predniSONE 5 mg Oral Daily ??? tamsulosin 0.4 mg Oral Nightly ??? zolpidem 10 mg Oral Nightly ??? sodium chloride 0.9 % (flush) 5 mL Intravenous BID ??? pantoprazole EC 40 mg Oral BID ??? abiraterone 1,000 mg Oral Daily Infusing Medications: PRN Medications: sodium chloride 0.9 % (flush), lidocaine, melatonin, ondansetron, Oral Chemotherapy Assessment: 76 y.o. male w/ PMHx of Metastatic prostatic cancer, bilateral knee OA here for hematochezia. Patient was planned for colonoscopy and undergoing bowel prep 08/14 PM. Patient continued to experience hematochezia. Hgb post infusion 2300 08/14 6.9. However, patient began experiencing large output hematochezia.early AM 08/15 during prep with associated drop in Hgb. Prep was stopped 0301 08/15. Patient Hgb 0050 6.5 and transfused. Patient received 3x unit of blood in total. IR was consulted and patient underwent CTAP and was inconclusive for source of bleed. Patient underwent mesenteric arteriogram but no active bleed was found and no embolization performed. Discussed with GI. GI rec upperendoscopy for possible UGIB. Upper endoscopy performed and was unrevealing except for esophagitis. Gi rec repreping patient for colonoscopy tonight, avoid NSAIDs, PPI BID, 2 mo outpatient EGD f/u. Summary of Today's Plan (08/15/22): - Upper endoscopy per GI - Bowel prep tonight for colonoscopy Plan by problem: #GIB 2/2 to diverticulosis vs AVM vs internal hemorrhoids GI Consulted --Upper endoscopy was unrevealing except for esophagitis --Avoid NSAIDs, continue PPI BID --Re-prep tonight for colonoscopy tomorrow 08/16 Continue Hgb q6-8 hr COLONOSCOPY PREP - Clear liquid diet (no red-colored products)??now?? - 2L golytely to start at 6pm and finish by 8pm, then 2L more golytely at 11pm to finish by 1am. Ptto drink 12oz every 10-15 minutes until the intended volume is completed. If patient is nauseous, treat with zofran and put prep on ice to be sipped through straw. - After prep begins, diet should be NPO other than prep/meds with sips. At DE, patient should be strict NPO. - Night float to please check on prep at 1am and continue prep until clear Outpatient: #Esophagitis 2 mo outpatient EGD f/u # PPx: - GI: Protonix 40 mg BID - Diet: NPO - Lines/Tubes: - Dispo: pending - Alternative Medical Decision Maker: and daughter - Code Status: Full code Jacy Jordan MD Internal Medicine, PGY1 M2 [facility] Medicine Service Attending Documentation I certify that the patient requires: [x] inpatient care status due to acute lower GI bleed with acute blood loss anemia requiring close monitoring and multiple blood transfusions thus far. [ ] Observation Care Please see Dr. Jordan's note for details of the patient history of presentation and data. I have examined the patient myself and personally reviewed all studies. I have discussed, reviewed and agree with the documented History, Physical findings, Assessment and Plan of care. MILTON SOTO MD 08/16/2022 * Systrom, Emani Pillai MD - 08/15/2022 5:51 AM EST Images from the original note were not included. DIVISION OF GASTROENTEROLOGY & HEPATOLOGY CONSULT PROGRESS NOTE REQUESTING PROVIDER: Milton Soto MD NAME: Chidi Carbone : 1945 HPI: 76 y.o./ w/ PMH of OA, prostate ca in remission (previous tx w/Lupron, no radiation), who presentedto the ED d/t BRBPR and feeling light-headed c/f LGIB INTERVAL: - 500cc-1000cc stool w/blood, followed by 1L BRBPR - life safety called, dizziness - CT GI bleed performed, no active extrav - Pt to IR for potential embolization - no bleeding seen, no embolization - Hgb 7.4 --> 6.1 -->6.6 --> 6.9 --> 6.5 overnight; s/p 3 units up to 7.8 this AM - Did not complete prep for colonoscopy ROS: 10-system ROS negative other than that noted above PAST MEDICAL & SURGICAL HX: No past medical history on file. Past Surgical History: Procedure Laterality Date ??? PRO COLONOSCOPY, DIAGNOSTIC N/A 04/19/2015 COLONOSCOPY, DIAGNOSTIC performed by Paula Rocha MD at [facility] ENDOSCOPY ??? PRO DRESSING CHANGE UNDER ANESTHESIA N/A 06/04/2019 DRESSING CHANGE (FOR OTHER THAN RAUSCH) UNDER ANES. (WRVU 0.86) performed by Rodri Villa MD at [facility] MAIN OR ? ? PRO EDG FLEXIBLE TRANSORAL ABLATE TUMOR POLYP/LESION W/DILATION & WIRE N/A 04/19/2015 EGD, TRANSORAL; WITH ABLATION OF TUMOR(S), POLYP(S), OR OTHER LESION(S) performed by Paula Rocha MD at [facility] ENDOSCOPY ??? PRO LAP, ESOPHAGOGAST FUNDOPLASTY 03/08/2014 LAPAROSCOPIC MODESTO FUNDOPLASTY performed by Surendra Garcia MD at [facility] MAIN OR ??? PRO PREP SITE TRUNK/ARM/LEG 1ST 100 SQ CM/1PCT Right 06/04/2019 SURGICAL PREP/CREATION RECIPIENT SITE, FIRST 100 SQ CM, LEGS (WRVU 3.65) performed by Rodri Villa MD at [facility] MAIN OR ? ? PRO SPLIT GRFT TRUNK, ARM, LEG <100SQCM Right 06/04/2019 SPLIT THICK SKIN GRAFT,100 SQ CM OR LESS, LEGS (WRVU 9.9) performed by Rodri Villa MD at [facility] MAIN OR ??? PRO UPPER GI ENDOSCOPY, BIOPSY 11/27/2011 UPPER GASTROINTESTINAL ENDOSCOPY,WITH BIOPSY SINGLE OR MULTIPLE performed by PAULA ROCHA I at [facility] ENDOSCOPY ??? PRO UPPER GI ENDOSCOPY, BIOPSY 04/22/2012 UPPER GASTROINTESTINAL ENDOSCOPY,WITH BIOPSY SINGLE OR MULTIPLE performed by PAULA ROCHA I at [facility] ENDOSCOPY ??? PRO UPPER GI ENDOSCOPY, BIOPSY 05/12/2013 UPPER GASTROINTESTINAL ENDOSCOPY,WITH BIOPSY SINGLE OR MULTIPLE performed by Paula Rocha MD at [facility] ENDOSCOPY ??? PRO UPPER GI ENDOSCOPY, BIOPSY 10/20/2013 UPPER GASTROINTESTINAL ENDOSCOPY,WITH BIOPSY SINGLE OR MULTIPLE performed by Paula Rocha MD at [facility] ENDOSCOPY ??? PRO UPPER GI ENDOSCOPY, BIOPSY N/A 06/29/2015 EGD WITH BIOPSY performed by Paula Rocha MD at [facility] ENDOSCOPY ??? UPPER GI ENDOSCOPY, EXAM 02/13/2011 UPPER GI ENDOSCOPY performed by PAULA ROCHA I at [facility] ENDOSCOPY ??? UPPER GI ENDOSCOPY, EXAM 05/12/2013 UPPER GI ENDOSCOPY performed by Paula Rocha MD at [facility] ENDOSCOPY ??? UPPER GI ENDOSCOPY, EXAM N/A 04/19/2015 UPPER GI ENDOSCOPY performed by Paula Rocha MD at [facility] ENDOSCOPY ??? UPPER GI ENDOSCOPY, TUMOR ABLATN 04/22/2012 ENDOSCOPY, UPPER GI, W\ABLATION TUMOR\POLYP\LESION performed by PAULA ROCHA I at [facility] ENDOSCOPY SOCIAL HX: Social History Socioeconomic History ??? Marital status: Spouse name: Not on file ??? Number of children: Not on file ??? Years of education: Not on file ??? Highest education level: Not on file Occupational History ??? Not on file Tobacco Use ??? Smoking status: Former Years: 15. Types: Cigarettes Quit date: 1977 Years since quittin.9 ??? Smokeless tobacco: Never Vaping Use ??? Vaping Use: Never used Substance and Sexual Activity ??? Alcohol use: Yes Alcohol/week: 14.0 standard drinks Types: 14 Glasses of wine per week ??? Drug use: No ??? Sexual activity: Not on file Other Topics Concern ??? Not on file Social History Narrative ??? Not on file Social Determinants of Health Financial Resource Strain: Not on file Food Insecurity: Not on file Transportation Needs: Not on file Physical Activity: Not on file Housing Stability: Not on file FAMILY HX: Family History Problem Relation Age of Onset ??? Diabetes Neg Hx MEDICATIONS Medication list personally reviewed Home Meds: Medications Prior to Admission Medication Sig Dispense Refill Last Dose ??? abiraterone (Zytiga) 500 mg Tablet Take 1,000 mg by mouth daily. Brand name only. 60 tablet 11 08/14/2022 ??? Provigil 100 mg Tablet take 1 tablet by mouth once daily 08/14/2022 ??? pantoprazole EC (Protonix) 40 mg Tablet, Delayed Release (E.C.) take 1 tablet by mouth twice a day 08/13/2022 ??? zolpidem (AMBIEN) 10 mg Tablet take 1 tablet by mouth at bedtime 08/13/2022 ??? leuprolide acetate (LUPRON DEPOT IM) Inject into the muscle. Once every 3 months, dosage unknown Past Month ??? tamsulosin (FLOMAX) 0.4 mg Capsule Take 0.4 mg by mouth daily. 08/13/2022 ??? finasteride (PROSCAR) 5 mg Tablet Take 5 mg by mouth daily. 08/13/2022 ??? predniSONE (DELTASONE) 5 mg Tablet Take 1 tablet by mouth daily. 30 tablet 11 08/14/2022 Current Meds: Scheduled: Drips: PRN: Allergies: No Known Allergies OBJECTIVE Vitals: T Temp: [36.4 ??C (97.6 ??F)-37.3 ??C (99.1 ??F)] HR Heart Rate: [65-87] BP BP: (114-176)/(57-128) RR Resp: [14-18] SpO2 SpO2: [94 %-100 %] 08/14 0701 - 08/15 0700 In: 1048 Out: 1999 Wt Last 80.7 kg (178 lb) Admit 80.74 kg Physical Exam: CONST: Awake, alert, no acute distress HEENT: sclerae anicteric, moist mucous membranes, no oral thrush RESP: normal RR, air entry equal bilaterally, no rales/rhonchi CARDIAC: RRR, normal S1/S2, no appreciable murmurs GI: abdomen soft, non-tender, non-distended, normoactive bowel sounds, tympanic to percussion MSK: legs warm, palpable pulses b/l, no significant edema SKIN: No jaundice, rash, or bruising NEURO: Grossly intact, moves all extremities, no asterixis PSYCH: Pleasant, appropriate affect Labs: Labs personally reviewed in eD CBC: Recent Labs 08/15/22 0050 08/14/22 2213 08/14/22 1814 08/14/22 1734 08/14/22 1205 WBC -- -- -- 5.2 6.7 HGB 6.5* 6.9* 6.6* 6.1* 7.4* PLATELET -- -- -- 213 250 MCV -- -- -- 90.6 89.8 RDWCV -- -- -- 12.8 12.9 COAG: No results for input(s): PTT, INR, PT in the last 168 hours. CHEM: Recent Labs 08/14/22 1205 CREATININE 0.85 BUN 19 NA 143 K 3.5 CL 109* CO2 24 CALCIUM 8.7 HEPATIC: No results for input(s): BILITOT, BILIDIR, ALKPHOS, AST, ALT, ALBUMIN, LIPASE in the last 168 hours. Invalid input(s): TPROT INFLAMM: No results for input(s): CRP in the last 168 hours. IMAGING: Reports and images personally reviewed in eD. Images independently interpreted. CT Abdomen & Pelvis wwo Contrast (GI BLEED) (Results Pending) ENDOSCOPY: Reports and images personally reviewed in [facility] 03/2015 Colonoscopy: Impression: ?- The examined portion of the ileum ?was normal. ?- Moderate diverticulosis in the ?entire examined colon. ?- The examination was otherwise ?normal. ?- No specimens collected. 05/2015 EGD: - Z-line regular, 35 cm from the ?incisors. Treated with radiofrequency ?ablation. Biopsied. ?- An anti-reflux surgical site was ?found. ?- Normal examined duodenum. ASSESSMENT & PLAN: 76 yo M w/ PMH of OA, prostate ca in remission (previous tx w/Lupron, no radiation), who presented to the ED d/t BRBPR and feeling light-headed ultimately c/f LGIB. Overall, this is highly suspicious for a diverticular bleed given the associated abd pain and episode of BRBPR after this, paired with the fact it has slowed or essentially stopped. Overnight with worsening BRBPR and significant Hgb drop, though reassuringly remained HDS - normotensive and not tachycardic. Given his significant NSAID use and potential for a brisk UGIB, will plan to take him for EGD today to ensure this is not a bleed from an ulcer. Pending this and his clinical course, could try to re-prep again for colonoscopy for diverticular vs hemorrhoidal bleed. Trend H/H, transfuse for Hgb < 7. Pt knows to avoid all NSAIDs going forward. As above, EGD today. Recommendations: - Trend H/H - 2 large bore IVs - Transfuse Hgb < 7 - NPO now; EGD this AM - Pending course, would consider re-prep and colonoscopy - Avoid NSAIDS going forward Patient staffed with Dr. Rodrigo Gray MD PGY-4, Gastroenterology Associated attestation - Bubba Wallace MD - 08/15/2022 9:44 AM EST I have independently seen and examined the patient, and have reviewed the resident???s above note, and agree with the documented history, physical findings, and study results; my evaluation of the patient is below: I agree with the plan as outlined by DR Isaac Wallace MD * Rodri Felix RN - 08/15/2022 12:22 AM EST Life Safety Program Consult Note Called to see Chidi Carbone who is a 76 y.o.male by RN for GI bleed BRBPR. Admission Date/Time 08/14/2022 11:40 AM Hospital Day 1 day Problem List: Active Hospital Problems Diagnosis ??? GI bleed Resolved Hospital Problems No resolved problems to display. Active Non-Hospital Problems Diagnosis ??? Hypertension ??? 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 GERD (gastroesophageal reflux disease) No Known Allergies 24 hour Events: PER Internal Medicine note Patient is a 76 y/o w/ PMHx of Metastatic prostatic cancer, bilateral knee OA here for bright red blood in stool. Patient first experienced sharp LLQ pain on 08/10 PM with subsequent bright red bloodin stool. Patient had an additional episode later before seeking medical attention at [facility]. Patient was found to have hgb of 10 on 08/10, then 8 on 08/11 with a baseline of 13 07/10 . Patient was discharged on Saturday 08/11 after having no additional episodes. Over the weekend patient had normal BM w/o hematochezia. He reported self resolving vertigo after discharge as well as intermittent lightheadedness, generalized weakness and mild RAMIREZ. Patient this AM 08/14 experienced another episode of hematochezia. Patient denied further LLQ abdominal pain, JOHNSON, nausea, vomiting, CP, palpitation or any prior hx of GIB. ?? Subjective: Pt lying in bed c/o dizziness and BRBPR receiving a unit of PRBC. Objective: Vital Signs: Last value Range last 8 hrs Temperature Temp: 36.9 ??C (98.4 ??F) Temp: [36.7 ??C (98.1 ??F)-37.3 ??C (99.1 ??F)] Heart Rate Heart Rate: 76 Heart Rate: [76-79] Blood Pressure BP: 124/63 BP: (114-176)/(63-90) Respiratory Rate Resp: 18 Resp: [14-18] SpO2 SpO2: 94 % SpO2: [94 %-100 %] Intake/Output Summary (Last 24 hours) at 08/15/2022 0022 Last data filed at 08/15/2022 0000 Gross per 24 hour Intake 352 ml Output 2000 ml Net -1648 ml Current vascular access, and airway: # 20 RAC - PRBC infusing Respiratory: WNL 18 and regular Cardiovascular: 76 regular GI: BRBPR-RN measured 1L of output Neuro:WNL Current Medications: Infusions: ??? sodium chloride 0.9% Stopped (08/14/221927) Scheduled medications: ??? finasteride 5 mg Oral Nightly ??? predniSONE 5 mg Oral Daily ??? tamsulosin 0.4 mg Oral Nightly ??? zolpidem 10 mg Oral Nightly ??? sodium chloride 0.9 % (flush) 5 mL Intravenous BID ??? pantoprazole EC 40 mg Oral BID ??? polyethylene glycol (GoLYTELY) with electrolytes BOWEL PREP powder for solution 2,000 mL Oral Once ??? abiraterone 1,000 mg Oral Daily PRN Medications: sodium chloride 0.9 % (flush), lidocaine, melatonin, ondansetron, Oral Chemotherapy Laboratory: Lab Results Component Value Date WBC 5.2 08/14/2022 Hemoglobin 6.9 (L) 08/14/2022 Hematocrit 21.2 (L) 08/14/2022 Platelets 213 08/14/2022 Potassium 3.5 08/14/2022 Calcium 8.7 08/14/2022 CO2 24 08/14/2022 BUN 19 08/14/2022 Creatinine 0.85 08/14/2022 Studies: Labs:STAT H&H Radiology: N/A Other: Provider contacting IR, Betsy prep stopped per MD Assessment: Upon LSRN arrival pt on bedside commode and assisted back into bed without incident by unit staff. Primary RN measured BM volume as 1000ml BRBPR with no stool. Betsy prep stopped per primary MD request. VSS Temp 36.9C HR regular 76 BP 124/63 RR 18and regular SpO2 94% on RA. Primary MD contactedIR, IR suggest CT abdomen and pelvis wwo contrast ( GI Bleed). Plan: Awaiting CT scan Remain on Floor Continue to monitor at this time + Please contact LSRN with any further questions or concerns pager # [phone] Rodri Felix RN 12:22 AM August 15, 2022 documented in this encounter H&P Notes * Emani Gray MD - 08/16/2022 6:11 AM EST Gastroenterology and Hepatology Pre-Procedure History and Physical Exam Procedure: Colonoscopy: Indication: BRBPR Patient Active Problem List Diagnosis Code ??? GERD (gastroesophageal reflux disease) K21.9 ??? 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 Hypertension I10 ??? GI bleed K92.2 EXAM: HEENT: Airway examined, oropharynx clear Mallampati Score: II (soft palate, uvula, fauces visible) LUNGS: Clear to auscultation HEART: Regular rate and rhythm, normal S1, S2 ABDOMEN: Normal bowel sounds, soft, non tender, non distended A/P: Proceed with the planned endoscopic procedure. ASA 3 - Patient with moderate systemic disease with functional limitations Sedation Plan: anesthesia Risks and benefits of the procedure explained to the patient. Consent form signed and included in the patient's chart. Emani Gray PGY-4, Gastroenterology * Emani Gray MD - 08/15/2022 8:44 AM EST Gastroenterology and Hepatology Pre-Procedure History and Physical Exam Procedure: EGD: Indication: BRBPR Patient Active Problem List Diagnosis Code ??? GERD (gastroesophageal reflux disease) K21.9 ??? 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 Hypertension I10 ??? GI bleed K92.2 EXAM: HEENT: Airway examined, oropharynx clear Mallampati Score: II (soft palate, uvula, fauces visible) LUNGS: Clear to auscultation HEART: Regular rate and rhythm, normal S1, S2 ABDOMEN: Normal bowel sounds, soft, non tender, non distended A/P: Proceed with the planned endoscopic procedure. ASA 2 - Patient with mild systemic disease with no functional limitations Sedation Plan: anesthesia Risks and benefits of the procedure explained to the patient. Consent form signed and included in the patient's chart. Emani Gray PGY-4, Gastroenterology * Yanira Tran MD - 08/15/2022 6:56 AM EST Images from the original note were not included. INTERVENTIONAL RADIOLOGY FOCUSED H&P and PRE-PROCEDURE NOTE: PCP: Kennedi Shaver MD Referring Provider: No ref. provider found Planned procedure: IR mesenteric angiogram with possible intervention Procedure Indication: BRBPR with suspicious findings on CT There are no answered order specific questions. Presenting Diagnosis/ Complaint: Chidi Carbone is a 76 y.o. male with history of metastatic prostate cancer who presented with BRBPR complicated by current colonoscopy prep. CT GI bleed with suspicious findings. IR has been consulted for mesenteric angiogram with possible intervention. Past Medical/Surgical History: Patient Active Problem List Diagnosis Code ??? GERD (gastroesophageal reflux disease) K21.9 ??? 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 Hypertension I10 ??? GI bleed K92.2 No past medical history on file. Past Surgical History: Procedure Laterality Date ??? PRO COLONOSCOPY, DIAGNOSTIC N/A 04/19/2015 COLONOSCOPY, DIAGNOSTIC performed by Paula Rocha MD at [facility] ENDOSCOPY ??? PRO DRESSING CHANGE UNDER ANESTHESIA N/A 06/04/2019 DRESSING CHANGE (FOR OTHER THAN RAUSCH) UNDER ANES. (WRVU 0.86) performed by Rodri Villa MD at [facility] MAIN OR ? ? PRO EDG FLEXIBLE TRANSORAL ABLATE TUMOR POLYP/LESION W/DILATION & WIRE N/A 04/19/2015 EGD, TRANSORAL; WITH ABLATION OF TUMOR(S), POLYP(S), OR OTHER LESION(S) performed by Paula Rocha MD at [facility] ENDOSCOPY ??? PRO LAP, ESOPHAGOGAST FUNDOPLASTY 03/08/2014 LAPAROSCOPIC MODESTO FUNDOPLASTY performed by Surendra Garcia MD at [facility] MAIN OR ??? PRO PREP SITE TRUNK/ARM/LEG 1ST 100 SQ CM/1PCT Right 06/04/2019 SURGICAL PREP/CREATION RECIPIENT SITE, FIRST 100 SQ CM, LEGS (WRVU 3.65) performed by Rodri Villa MD at [facility] MAIN OR ? ? PRO SPLIT GRFT TRUNK, ARM, LEG <100SQCM Right 06/04/2019 SPLIT THICK SKIN GRAFT,100 SQ CM OR LESS, LEGS (WRVU 9.9) performed by Rodri Villa MD at [facility] MAIN OR ??? PRO UPPER GI ENDOSCOPY, BIOPSY 11/27/2011 UPPER GASTROINTESTINAL ENDOSCOPY,WITH BIOPSY SINGLE OR MULTIPLE performed by PAULA ROCHA I at [facility] ENDOSCOPY ??? PRO UPPER GI ENDOSCOPY, BIOPSY 04/22/2012 UPPER GASTROINTESTINAL ENDOSCOPY,WITH BIOPSY SINGLE OR MULTIPLE performed by PAULA ROCHA I at [facility] ENDOSCOPY ??? PRO UPPER GI ENDOSCOPY, BIOPSY 05/12/2013 UPPER GASTROINTESTINAL ENDOSCOPY,WITH BIOPSY SINGLE OR MULTIPLE performed by Paula Rocha MD at [facility] ENDOSCOPY ??? PRO UPPER GI ENDOSCOPY, BIOPSY 10/20/2013 UPPER GASTROINTESTINAL ENDOSCOPY,WITH BIOPSY SINGLE OR MULTIPLE performed by Paula Rocha MD at [facility] ENDOSCOPY ??? PRO UPPER GI ENDOSCOPY, BIOPSY N/A 06/29/2015 EGD WITH BIOPSY performed by Paula Rocha MD at [facility] ENDOSCOPY ??? UPPER GI ENDOSCOPY, EXAM 02/13/2011 UPPER GI ENDOSCOPY performed by PAULA ROCHA I at [facility] ENDOSCOPY ??? UPPER GI ENDOSCOPY, EXAM 05/12/2013 UPPER GI ENDOSCOPY performed by Paula Rocha MD at [facility] ENDOSCOPY ??? UPPER GI ENDOSCOPY, EXAM N/A 04/19/2015 UPPER GI ENDOSCOPY performed by Paula Rocha MD at [facility] ENDOSCOPY ??? UPPER GI ENDOSCOPY, TUMOR ABLATN 04/22/2012 ENDOSCOPY, UPPER GI, W\ABLATION TUMOR\POLYP\LESION performed by PAULA ROCHA I at [facility] ENDOSCOPY Medications: No current facility-administered medications on file prior to encounter. Current Outpatient Medications on File Prior to Encounter Medication Sig Dispense Refill ??? abiraterone (Zytiga) 500 mg Tablet Take 1,000 mg by mouth daily. Brand name only. 60 tablet 11 ??? Provigil 100 mg Tablet take 1 tablet by mouth once daily ??? pantoprazole EC (Protonix) 40 mg Tablet, Delayed Release (E.C.) take 1 tablet by mouth twice a day ??? zolpidem (AMBIEN) 10 mg Tablet take 1 tablet by mouth at bedtime ??? leuprolide acetate (LUPRON DEPOT IM) Inject into the muscle. Once every 3 months, dosage unknown ??? tamsulosin (FLOMAX) 0.4 mg Capsule Take 0.4 mg by mouth daily. ??? finasteride (PROSCAR) 5 mg Tablet Take 5 mg by mouth daily. ??? predniSONE (DELTASONE) 5 mg Tablet Take 1 tablet by mouth daily. 30 tablet 11 Allergies: Patient has no known allergies. Social History and Habits: Social History Socioeconomic History ??? Marital status: Spouse name: Not on file ??? Number of children: Not on file ??? Years of education: Not on file ??? Highest education level: Not on file Occupational History ??? Not on file Tobacco Use ??? Smoking status: Former Years: .00 Types: Cigarettes Quit date: 1977 Years since quittin.9 ??? Smokeless tobacco: Never Vaping Use ??? Vaping Use: Never used Substance and Sexual Activity ??? Alcohol use: Yes Alcohol/week: 14.0 standard drinks Types: 14 Glasses of wine per week ??? Drug use: No ??? Sexual activity: Not on file Other Topics Concern ??? Not on file Social History Narrative ??? Not on file Social Determinants of Health Financial Resource Strain: Not on file Food Insecurity: Not on file Transportation Needs: Not on file Physical Activity: Not on file Housing Stability: Not on file Significant Family History: Family History Problem Relation Age of Onset ??? Diabetes Neg Hx Pertinent ROS: as per HPI Labs: Lab Results Component Value Date WBC 5.2 08/14/2022 HCT 19.6 (L) 08/15/2022 PLATELET 213 08/14/2022 BUN 19 08/14/2022 CREATININE 0.85 08/14/2022 ALKPHOS 97 07/10/2022 AST 16 07/10/2022 ALBUMIN 4.3 07/10/2022 BILIDIR 0.1 03/20/2017 BILITOT 0.9 07/10/2022 ALT 10 07/10/2022 PROT 6.5 07/10/2022 Imaging: Physical Exam: Pending (to be performed in angio the day of procedure) ASA: Pending (to be assessed in angio the day of procedure) Mallampati Class: Pending (to be assessed in angio the day of procedure) Assessment: Chidi Carbone is a 76 y.o. male with history of metastatic prostate cancer who presented with BRBPR complicated by current colonoscopy prep. CT GI bleed with suspicious findings. IR has been consulted for mesenteric angiogram with possible intervention. Plan Planned procedure: IR mesenteric angiogram with possible intervention Labs to be performed day of procedure: No labs Sedation: Moderate (Conscious sedation) Prophylactic antibiotic : None Contrast: Omnipaque Additional medications for procedure: Lidocaine Position: Supine Consent: Completed Medications to discontinue (and days held): None Cytopathology presence needed: No Yanira Tran MD Interventional Radiology, PGY-4 08/15/22 6:56 AM * Santo Duarte MD - 08/15/2022 6:45 AM EST INTERVENTIONAL RADIOLOGY FOCUSED H&P: Procedure: Update to H&P: The patient's history and physical exam have been reviewed and completed. There has been NO interval change from that of the pre-procedural note done within the last 30 days. There is NO change in the procedural plan. Ongoing bleeding with some suspicious areas on CT, will proceed to angio this am Physical Exam: Cardiovascular: Regular, Normal Pulmonary: Breath sounds clear to auscultation Meds: Current medications reviewed. No medications held. Labs: No new relevant labs. The planned procedure (and sedation plan if appropriate) , its benefits and risks, and alternativeswere discussed with the patient. The patient consented to the procedure. PRE-SEDATION ASSESSMENT: Sedation Plan: moderate (conscious sedation) ASA: 2: Patient with mild systemic disease Mallampati: II: tonsillar pillars are blocked by the tongue Confirm NPO status: Yes History of anesthetic complications: No Current medications reviewed: Yes Allergies reviewed: Yes Source Note - Emani Gray MD - 08/14/2022 2:11 PM EST Images from the original note were not included. DIVISION OF GASTROENTEROLOGY & HEPATOLOGY INITIAL CONSULT REQUESTING PROVIDER: Mendez Hartley MD NAME: Chidi Carbone : 1945 HPI: 76 y.o./ w/ PMH of OA, prostate ca in remission (previous tx w/Lupron, no radiation), who presentedto the ED d/t BRBPR and feeling light-headed. As for recent hx, he presented to [place] on 08/09 with rectal bleeding and abdominal pain. At thattime, he felt light-headed, weak, and had 1 episode of filling toilet bowl with blood. He had sharpLLQ pain associated with this. Hgb was 10 on arrival to [place], dropped to 8 during hospitalization - he was admitted, observed, and this remained stable. He was told to re-present if any recurent sx.-He had not had BM since Saturday (3 days ago), but then this AM had a large BM w/blood and clot in the toilet. As such, he presented here. Hgb on arrival was 7.4, and there was crimson blood in vaulton rectal exam per ED. Of note, pt has been taking 600mg ibuprofen TID for last several months d/t MSK pain. He is not on any anticoagulation. As above, never had radiation for prostate Ca. Has previously had colonoscopy in 2014 - this showed polyps, diverticulosis, but no hemorrhoids. Has also had several EGDs in past for Sol's esophagus. He is feeling okay now, and feels that things have slowed down. Denies fevers, chills, night sweats. No SOB or CP. No N/V or epigastric pain. He last ate at 8pm on 08/13, has been on liquids since. ROS: 10-system ROS negative other than that noted above PAST MEDICAL & SURGICAL HX: No past medical history on file. Past Surgical History: Procedure Laterality Date ??? PRO COLONOSCOPY, DIAGNOSTIC N/A 04/19/2015 COLONOSCOPY, DIAGNOSTIC performed by Paula Rocha MD at [facility] ENDOSCOPY ??? PRO DRESSING CHANGE UNDER ANESTHESIA N/A 06/04/2019 DRESSING CHANGE (FOR OTHER THAN RAUSCH) UNDER ANES. (WRVU 0.86) performed by Rodri Villa MD at [facility] MAIN OR ? ? PRO EDG FLEXIBLE TRANSORAL ABLATE TUMOR POLYP/LESION W/DILATION & WIRE N/A 04/19/2015 EGD, TRANSORAL; WITH ABLATION OF TUMOR(S), POLYP(S), OR OTHER LESION(S) performed by Paula Rocha MD at [facility] ENDOSCOPY ??? PRO LAP, ESOPHAGOGAST FUNDOPLASTY 03/08/2014 LAPAROSCOPIC MODESTO FUNDOPLASTY performed by Surendra Garcia MD at [facility] MAIN OR ??? PRO PREP SITE TRUNK/ARM/LEG 1ST 100 SQ CM/1PCT Right 06/04/2019 SURGICAL PREP/CREATION RECIPIENT SITE, FIRST 100 SQ CM, LEGS (WRVU 3.65) performed by Rodri Villa MD at [facility] MAIN OR ? ? PRO SPLIT GRFT TRUNK, ARM, LEG <100SQCM Right 06/04/2019 SPLIT THICK SKIN GRAFT,100 SQ CM OR LESS, LEGS (WRVU 9.9) performed by Rodri Villa MD at [facility] MAIN OR ??? PRO UPPER GI ENDOSCOPY, BIOPSY 11/27/2011 UPPER GASTROINTESTINAL ENDOSCOPY,WITH BIOPSY SINGLE OR MULTIPLE performed by PAULA ROCHA I at [facility] ENDOSCOPY ??? PRO UPPER GI ENDOSCOPY, BIOPSY 04/22/2012 UPPER GASTROINTESTINAL ENDOSCOPY,WITH BIOPSY SINGLE OR MULTIPLE performed by PAULA ROCHA I at [facility] ENDOSCOPY ??? PRO UPPER GI ENDOSCOPY, BIOPSY 05/12/2013 UPPER GASTROINTESTINAL ENDOSCOPY,WITH BIOPSY SINGLE OR MULTIPLE performed by Paula Rocha MD at [facility] ENDOSCOPY ??? PRO UPPER GI ENDOSCOPY, BIOPSY 10/20/2013 UPPER GASTROINTESTINAL ENDOSCOPY,WITH BIOPSY SINGLE OR MULTIPLE performed by Paula Rocha MD at [facility] ENDOSCOPY ??? PRO UPPER GI ENDOSCOPY, BIOPSY N/A 06/29/2015 EGD WITH BIOPSY performed by Paula Rocha MD at [facility] ENDOSCOPY ??? UPPER GI ENDOSCOPY, EXAM 02/13/2011 UPPER GI ENDOSCOPY performed by PAULA ROCHA I at [facility] ENDOSCOPY ??? UPPER GI ENDOSCOPY, EXAM 05/12/2013 UPPER GI ENDOSCOPY performed by Paula Rocha MD at [facility] ENDOSCOPY ??? UPPER GI ENDOSCOPY, EXAM N/A 04/19/2015 UPPER GI ENDOSCOPY performed by Paula Rocha MD at [facility] ENDOSCOPY ??? UPPER GI ENDOSCOPY, TUMOR ABLATN 04/22/2012 ENDOSCOPY, UPPER GI, W\ABLATION TUMOR\POLYP\LESION performed by PAULA ROCHA I at [facility] ENDOSCOPY SOCIAL HX: Social History Socioeconomic History ??? Marital status: Spouse name: Not on file ??? Number of children: Not on file ??? Years of education: Not on file ??? Highest education level: Not on file Occupational History ??? Not on file Tobacco Use ??? Smoking status: Former Years: 15.00 Types: Cigarettes Quit date: 1978 Years since quittin.9 ??? Smokeless tobacco: Never Vaping Use ??? Vaping Use: Never used Substance and Sexual Activity ??? Alcohol use: Yes Alcohol/week: 14.0 standard drinks Types: 14 Glasses of wine per week ??? Drug use: No ??? Sexual activity: Not on file Other Topics Concern ??? Not on file Social History Narrative ??? Not on file Social Determinants of Health Financial Resource Strain: Not on file Food Insecurity: Not on file Transportation Needs: Not on file Physical Activity: Not on file Housing Stability: Not on file FAMILY HX: Family History Problem Relation Age of Onset ??? Diabetes Neg Hx MEDICATIONS Medication list personally reviewed Home Meds: (Not in a hospital admission) Current Meds: Scheduled: Drips: PRN: Allergies: No Known Allergies OBJECTIVE Vitals: T Temp: [36.4 ??C (97.6 ??F)] HR Heart Rate: [65-87] BP BP: (133-141)/(75-128) RR Resp: [14-18] SpO2 SpO2: [96 %-99 %] IO No intake/output data recorded. Wt Last 80.7 kg (178 lb) Admit 80.74 kg Physical Exam: CONST: Awake, alert, no acute distress HEENT: sclerae anicteric, moist mucous membranes, no oral thrush RESP: normal RR, air entry equal bilaterally, no rales/rhonchi CARDIAC: RRR, normal S1/S2, no appreciable murmurs GI: abdomen soft, non-tender, non-distended, normoactive bowel sounds, tympanic to percussion MSK: legs warm, palpable pulses b/l, no significant edema SKIN: No jaundice, rash, or bruising NEURO: Grossly intact, moves all extremities, no asterixis PSYCH: Pleasant, appropriate affect Labs: Labs personally reviewed in eDH CBC: Recent Labs 08/14/22 1205 WBC 6.7 HGB 7.4* PLATELET 250 MCV 89.8 RDWCV 12.9 COAG: No results for input(s): PTT, INR, PT in the last 168 hours. CHEM: Recent Labs 08/14/22 1205 CREATININE 0.85 BUN 19 NA 143 K 3.5 CL 109* CO2 24 CALCIUM 8.7 HEPATIC: No results for input(s): BILITOT, BILIDIR, ALKPHOS, AST, ALT, ALBUMIN, LIPASE in the last 168 hours. Invalid input(s): TPROT INFLAMM: No results for input(s): CRP in the last 168 hours. IMAGING: Reports and images personally reviewed in eD. Images independently interpreted. No orders to display ENDOSCOPY: Reports and images personally reviewed in [facility] 03/2015 Colonoscopy: Impression: ?- The examined portion of the ileum ?was normal. ?- Moderate diverticulosis in the ?entire examined colon. ?- The examination was otherwise ?normal. ?- No specimens collected. 05/2015 EGD: - Z-line regular, 35 cm from the ?incisors. Treated with radiofrequency ?ablation. Biopsied. ?- An anti-reflux surgical site was ?found. ?- Normal examined duodenum. ASSESSMENT & PLAN: 76 yo M w/ PMH of OA, prostate ca in remission (previous tx w/Lupron, no radiation), who presented to the ED d/t BRBPR and feeling light-headed ultimately c/f LGIB. Overall, this is highly suspicious for a diverticular bleed given the associated abd pain and episode of BRBPR after this, paired with the fact it has slowed or essentially stopped. We discussed withpt that other things on the differential include radiation proctitis iso his prostate ca, though pthas never had radiation, as well as hemorrhoids but he has not had a history of these. Additionally, discussed that significant NSAID use could have led to ulcer, but if this were from upper GI source we would expect him to be very unstable and likely hypotensive. Could also be a colonic ulcer, though more rare. Nonetheless, we discussed with pt, makes sense to admit him for observation and prep him for colonoscopy tomorrow for further evaluation. It is interesting that CT at [place] mentioned inflammation in intestines, and wonder if this was diverticular inflammation. Would trend H/H, transfuse for Hgb < 7. Pt knows to avoid all NSAIDs going forward. We will plan for colonoscopy 08/15. Recommendations: - 2 large bore IVs - Trend H/H - Start prep tonight (see below) for colonoscopy 08/15 - Avoid NSAIDs - If hemodynamically unstable or large amounts of hematochezia, recommend CT GI bleed protocol COLONOSCOPY PREP - Clear liquid diet (no red-colored products) now - 2L golytely to start at 6pm and finish by 8pm, then 2L more golytely at 11pm to finish by 1am. Ptto drink 12oz every 10-15 minutes until the intended volume is completed. If patient is nauseous, treat with zofran and put prep on ice to be sipped through straw. - After prep begins, diet should be NPO other than prep/meds with sips. At [place], patient should be strict NPO. - Night float to please check on prep at 1am and continue prep until clear Patient seen with Dr. Rodrigo Gray MD PGY-4, Gastroenterology * Milton Soto MD - 08/14/2022 3:22 PM EST Internal Medicine Admission History and Physical Patient Name: Chidi Carbone Service: Responsible Attending: Brittany Rose MD PCP: Kennedi Shaver MD PCP phone #: [phone] Chief Complaint: GIB History of Present Illness: Patient is a 76 y/o w/ PMHx of Metastatic prostatic cancer, bilateral knee OA here for bright red blood in stool. Patient first experienced sharp LLQ pain on 08/10 PM with subsequent bright red bloodin stool. Patient had an additional episode later before seeking medical attention at [facility]. Patient was found to have hgb of 10 on 08/10, then 8 on 08/11 with a baseline of 13 07/10 . Patient was discharged on Saturday 08/11 after having no additional episodes. Over the weekend patient had normal BM w/o hematochezia. He reported self resolving vertigo after discharge as well as intermittent lightheadedness, generalized weakness and mild RAMIREZ. Patient this AM 08/14 experienced another episode of hematochezia. Patient denied further LLQ abdominal pain, JOHNSON, nausea, vomiting, CP, palpitation or any prior hx of GIB. Review of Systems as per HPI Past Medical History/Problem List Patient Active Problem List Diagnosis Code ??? GERD (gastroesophageal reflux disease) K21.9 ??? 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 Hypertension I10 ??? GI bleed K92.2 No past medical history on file. Meds: No current facility-administered medications on file prior to encounter. Current Outpatient Medications on File Prior to Encounter Medication Sig Dispense Refill ??? abiraterone (Zytiga) 500 mg Tablet Take 1,000 mg by mouth daily. Brand name only. 60 tablet 11 ??? Provigil 100 mg Tablet take 1 tablet by mouth once daily ??? pantoprazole EC (Protonix) 40 mg Tablet, Delayed Release (E.C.) take 1 tablet by mouth twice a day ??? zolpidem (AMBIEN) 10 mg Tablet take 1 tablet by mouth at bedtime ??? leuprolide acetate (LUPRON DEPOT IM) Inject into the muscle. Once every 3 months, dosage unknown ??? tamsulosin (FLOMAX) 0.4 mg Capsule Take 0.4 mg by mouth daily. ??? finasteride (PROSCAR) 5 mg Tablet Take 5 mg by mouth daily. ??? predniSONE (DELTASONE) 5 mg Tablet Take 1 tablet by mouth daily. 30 tablet 11 Allergies: No Known Allergies Past Surgical History Past Surgical History: Procedure Laterality Date ??? PRO COLONOSCOPY, DIAGNOSTIC N/A 04/19/2015 COLONOSCOPY, DIAGNOSTIC performed by Paula Rocha MD at [facility] ENDOSCOPY ??? PRO DRESSING CHANGE UNDER ANESTHESIA N/A 06/04/2019 DRESSING CHANGE (FOR OTHER THAN RAUSCH) UNDER ANES. (WRVU 0.86) performed by Rodri Villa MD at [facility] MAIN OR ? ? PRO EDG FLEXIBLE TRANSORAL ABLATE TUMOR POLYP/LESION W/DILATION & WIRE N/A 04/19/2015 EGD, TRANSORAL; WITH ABLATION OF TUMOR(S), POLYP(S), OR OTHER LESION(S) performed by Paula Rocha MD at [facility] ENDOSCOPY ??? PRO LAP, ESOPHAGOGAST FUNDOPLASTY 03/08/2014 LAPAROSCOPIC MODESTO FUNDOPLASTY performed by Surendra Garcia MD at [facility] MAIN OR ??? PRO PREP SITE TRUNK/ARM/LEG 1ST 100 SQ CM/1PCT Right 06/04/2019 SURGICAL PREP/CREATION RECIPIENT SITE, FIRST 100 SQ CM, LEGS (WRVU 3.65) performed by Rodri Villa MD at [facility] MAIN OR ? ? PRO SPLIT GRFT TRUNK, ARM, LEG <100SQCM Right 06/04/2019 SPLIT THICK SKIN GRAFT,100 SQ CM OR LESS, LEGS (WRVU 9.9) performed by Rodri Villa MD at [facility] MAIN OR ??? PRO UPPER GI ENDOSCOPY, BIOPSY 11/27/2011 UPPER GASTROINTESTINAL ENDOSCOPY,WITH BIOPSY SINGLE OR MULTIPLE performed by PAULA ROCHA I at [facility] ENDOSCOPY ??? PRO UPPER GI ENDOSCOPY, BIOPSY 04/22/2012 UPPER GASTROINTESTINAL ENDOSCOPY,WITH BIOPSY SINGLE OR MULTIPLE performed by PAULA ROCHA I at [facility] ENDOSCOPY ??? PRO UPPER GI ENDOSCOPY, BIOPSY 05/12/2013 UPPER GASTROINTESTINAL ENDOSCOPY,WITH BIOPSY SINGLE OR MULTIPLE performed by Paula Rocha MD at [facility] ENDOSCOPY ??? PRO UPPER GI ENDOSCOPY, BIOPSY 10/20/2013 UPPER GASTROINTESTINAL ENDOSCOPY,WITH BIOPSY SINGLE OR MULTIPLE performed by Paula Rocha MD at [facility] ENDOSCOPY ??? PRO UPPER GI ENDOSCOPY, BIOPSY N/A 06/29/2015 EGD WITH BIOPSY performed by Paula Rocha MD at [facility] ENDOSCOPY ??? UPPER GI ENDOSCOPY, EXAM 02/13/2011 UPPER GI ENDOSCOPY performed by PAULA ROCHA I at [facility] ENDOSCOPY ??? UPPER GI ENDOSCOPY, EXAM 05/12/2013 UPPER GI ENDOSCOPY performed by Paula Rocha MD at [facility] ENDOSCOPY ??? UPPER GI ENDOSCOPY, EXAM N/A 04/19/2015 UPPER GI ENDOSCOPY performed by Paula Rocha MD at [facility] ENDOSCOPY ??? UPPER GI ENDOSCOPY, TUMOR ABLATN 04/22/2012 ENDOSCOPY, UPPER GI, W\ABLATION TUMOR\POLYP\LESION performed by PAULA ROCHA I at [facility] ENDOSCOPY Family History: Family History Problem Relation Age of Onset ??? Diabetes Neg Hx Social History: Social History Tobacco Use ??? Smoking status: Former Years: 15.00 Types: Cigarettes Quit date: 1977 Years since quittin.9 ??? Smokeless tobacco: Never Vaping Use ??? Vaping Use: Never used Substance Use Topics ??? Alcohol use: Yes Alcohol/week: 14.0 standard drinks Types: 14 Glasses of wine per week ??? 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 Examination: General: Pleasant, alert, appropriate, in NAD. Cardiac: Normal S1 and S2, Regular rate and rhythm;systolic murmur Respiratory: Nonlabored. Clear to auscultation bilaterally; No wheezes or crackles Abd: + BS; soft, non-tender, non-distended, no masses, no HSM Ext: No edema Neuro: Alert and orientated, no-focal deficit Skin: No rashs, no lesions, no petechiae Laboratory: CBC: Recent Labs 08/14/22 1205 07/10/22 0847 04/10/22 0854 WBC 6.7 6.4 9.1 HGB 7.4* 12.9* 13.2* PLATELET 250 242 246 Chemistry: Recent Labs 08/14/22 1205 07/10/22 0847 04/10/22 0854 NA 143 141 137 K 3.5 4.0 4.0 CL 109* 105 102 CO2 24 26 23 BUN 19 20 17 CREATININE 0.85 0.90 0.91 GLUCOSE 112 103 144 Recent Labs 08/14/22 1205 07/10/22 0847 04/10/22 0854 CALCIUM 8.7 9.0 9.2 LFT's: Recent Labs 07/10/22 0847 04/10/22 0854 01/09/22 0935 BILITOT 0.9 0.9 0.8 ALBUMIN 4.3 4.4 4.3 ALKPHOS 97 91 99 ALT 10 15 10 AST 16 17 16 Coags: No results for input(s): PT, INR, PTT, FIBRINOGEN, DDIMER in the last 168 hours. Invalid input(s): THROMBIN TIME Cardiac enzymes: No results for input(s): TROPONINT, CK in the last 7068 hours. Endocrine: No results for input(s): TSH, CORTISOL in the last 7068 hours. Invalid input(s): [id number] Heme: No results for input(s): LDH, HAPTOGLOBIN, URICACID in the last 168 hours. Microbiology: Microbiology Results (Last 30 days) No results found for the last 720 hours. ASSESSMENT: Chidi Carbone is a 76 y.o. male admitted for GI bleed [K92.2] on HD# 0. Patient reported a hx ofmultiple episodes of hematochezia that started on 08/10 and is symptomatic of anemia. He was found to have rapidly declining Hbg from baseline of 13 to 7.4 08/14. Patient also reported he takes 3x ibuprofen BID for his knee pain. In patient's last colonoscopy in 04/19/2015, he was found to have moderate diverticulosis in the entire examined colon. Patient is HDS at this time. Patient's hematochezia is likely an LGIB 2/2 to diverticulosis exacerbated by NSAIDs use. However, other common cause of LGIB cannot be r/osuch as AV malformation, internal hemorrhoids, etc. This is unlikely to be an UGIB as he is experiencing hematochezia with stable HD, no nausea, vomiting, or coffee ground emesis. Planning for colonoscopy tomorrow with bowel prep tonight. Will closely monitor his Hgb q6-8 hrs. Patient has been consented and type and screen ordered. Given patient hx of blood loss and symptomatic for anemia we will start fluids on him. PLAN: # Admit to Medicine #LGIB Plan for colonoscopy tomorrow 08/15 Bowel prep until clear stools Clear liquid diet Hgb q6-8 hr Transfuse PRN Hgb<7 # PPx: - GI: Protonix 40 mg BID - Diet: Clear liquid - Lines/Tubes: - Dispo: pending - Alternative Medical Decision Maker: and daughter - Code Status: Full code Jacy Jordan MD Internal Medicine Pager # [phone] Attending Staff Admission Documentation I have examined the patient myself on 08/14/2022 and reviewed all labs and studies personally. Please see Dr. Jordan's documentation for details of the patient history of presentation and data. I have discussed, reviewed and agree with the documented history with ROS, physical findings, labs/studies, assessment and plan of care. MILTON SOTO MD 08/15/2022 documented in this encounter ED Notes * Claudette Kline RN - 08/14/2022 1:15 PM EST Pt relaxing on stretcher. Visitor at bedside. Pt waiting for GI consult. * Nikhil Dozier MD - 08/14/2022 12:44 PM EST Images from the original note were not included. ED Resident Note HPI: Chidi Carbone is a pleasant 76 y.o. male with history of prostate cancer currently in remission who presents to the Emergency Department with chief concern of new onset rectal bleed. He reports that he passed a large volume of red blood with his stool with a bowel movement Alex afternoon (08/10/2022). He notes that this was a large amount of blood that seemed to fill the toilet bowl.Patient notes that this prompted him to present to outside hospital ([place] in [place]), at which time hewas found to have a hemoglobin at presentation of approximately 10 and subsequently found to have adrop in hemoglobin to approximately 8. After approximately 24 hours of observation he was found to have a stable hemoglobin of still approximately 8 and discharged home with close return precautions.During his visit an abdominal CT was performed with requests placed to [place] to share his resultsof the [place] [facility] [place]. Patient subsequently noted fatigue and dizziness while at home but otherwise had no repeat bleedingor bowel movements until this morning 08/14, wherein he noted passing a significant volume of bloodand clots along with his bowel movement today. This prompted him to present to the ED for further work-up. He denies abdominal pain, nausea, vomiting, fevers, chills, myalgias, arthralgias, or any other symptoms at present. Patient reports that he has been taking ibuprofen 600 mg approximately 3 times daily over the last several months for musculoskeletal pain (right knee). Patient notes history of prostate cancer currently in remission and being controlled with abiraterone, leuprolide, and prednisone. Patient reports that he lives at home with his . 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 Patient reports 1 martini and a glass of wine most nights of the week. Patient denies tobacco or other recreational substance use. Of note patient takes Ambien on a nightly basis for insomnia, and has done so consistently for several years. Patient denies history or family history of bleeding and/or clotting disorders. Patient last underwent colonoscopy approximately 5 years ago, at which time several small benign polyps were identified and recommendation to return in 5 years for repeat colonoscopy. Patient rescheduled to have colonoscopy earlier this year, was lost to follow-up with [facility]. Discussed with: Patient Did you discuss: 1. Resuscitation goals No 2. Expectations/Fears No Did your conversation change the patient's disposition? No Pt was seen under the supervision of an attending physician. Review of Systems Constitutional: Positive for fatigue. Negative for activity change, chills and fever. HENT: Negative for congestion and sore throat. Eyes: Negative. Respiratory: Negative for cough, chest tightness and shortness of breath. Cardiovascular: Negative for chest pain, palpitations and leg swelling. Gastrointestinal: Positive for blood in stool. Negative for abdominal pain, constipation, diarrhea,nausea, rectal pain and vomiting. Endocrine: Negative for polyuria. Genitourinary: Negative for dysuria and flank pain. Musculoskeletal: Negative for arthralgias and myalgias. Skin: Negative. Allergic/Immunologic: Negative. Neurological: Positive for dizziness, weakness (generalized) and light- headedness. Negative for syncope. Hematological: Does not bruise/bleed easily. Pertinent positives and negatives are included in the HPI, otherwise at least ten systems were reviewed and negative. Past Medical and Surgical Histories, Social History, Medications, Allergies were reviewed in the chart. Vitals: ED Triage Vitals [08/14/22 1127] BP: (!) 141/128 Heart Rate: 87 Resp: 18 Temp: 36.4 ??C (97.6 ??F) Temp src: Temporal SpO2: 96 % O2 Device: RA O2 Flow Rate (L/min): n/a Physical Exam Constitutional: Appearance: Normal appearance. He is not ill-appearing or diaphoretic. HENT: Head: Normocephalic and atraumatic. Nose: No congestion or rhinorrhea. Mouth/Throat: Mouth: Mucous membranes are moist. Eyes: General: No scleral icterus. Conjunctiva/sclera: Conjunctivae normal. Cardiovascular: Rate and Rhythm: Normal rate and regular rhythm. Heart sounds: No murmur heard. No friction rub. No gallop. Pulmonary: Effort: Pulmonary effort is normal. No respiratory distress. Breath sounds: Normal breath sounds. No stridor. No wheezing, rhonchi or rales. Abdominal: General: Abdomen is flat. Bowel sounds are normal. There is no distension. Palpations: Abdomen is soft. There is no mass. Tenderness: There is no abdominal tenderness. There is no guarding or rebound. Hernia: No hernia is present. Genitourinary: Musculoskeletal: General: No swelling or tenderness. Normal range of motion. Right lower leg: No edema. Left lower leg: No edema. Skin: General: Skin is warm and dry. Coloration: Skin is pale. Neurological: General: No focal deficit present. Mental Status: He is alert and oriented to person, place, and time. Psychiatric: Mood and Affect: Mood normal. Behavior: Behavior normal. ED Course: I have reviewed labs and imaging, images and available reports, and they are significant for: Concern for lower GI bleed. However, given history of significant NSAID use over the previous months there is concern for associated upper GI bleed even in the absence of melena. Last 3 wbc, hgb, hct plt Recent Labs 08/14/22 1205 07/10/22 0847 04/10/22 0854 WBC 6.7 6.4 9.1 HGB 7.4* 12.9* 13.2* HCT 22.0* 37.7* 38.9* PLATELET 250 242 246 Last 3 Lytes Recent Labs 08/14/22 1205 07/10/22 0847 04/10/22 0854 NA 143 141 137 K 3.5 4.0 4.0 CL 109* 105 102 CO2 24 26 23 BUN 19 20 17 CREATININE 0.85 0.90 0.91 GLUCOSE 112 103 144 No orders to display ED Course as of 08/14/22 1648 SatAug 14, 2022 1600 Plan for patient to admit to inpatient care anticipation of upper and lower endoscopy tomorrow. He would like to try clears for PO intake at present (requests chicken broth). Plan for NPO and bowel prep upon hospitalization. 164 Repeat CBC ordered to assess for ongoing hemoglobin drop Procedures Assessment and Plan: 76 y.o. male with history of prostate cancer presents with chief concern of new hematochezia. Overall patient appears clinically stable with no tachycardia or hypotension, however hemoglobin of 7.4, which is down from reported hemoglobin of 10 over the weekend, is concerning for ongoing lower GI bleed in need of endoscopic intervention. Crimson color of blood suggests lower GI bleed, however significant NSAID use does raise concern for upper GI bleed. Per discussion with GI, plan to admit patient to internal medicine with plan for upper and lower endoscopy in the morning. The visit findings, diagnosis, and care plan were discussed with the patient. Nikhil Dozier MD Resident 08/14/223 Associated attestation - Mendez Hartley MD - 08/17/2022 12:21 PM EST ED ATTENDING ATTESTATION NOTE The patient was seen in conjunction with the resident physician. I have independently performed thekey portions of the history and physical exam. I have reviewed the nursing notes, vital signs, and all diagnostic studies personally including labs, imaging studies and EKGs. I have discussed the details of the case with the resident and agree with the assessment and plan as described in the resident note unless noted otherwise. Brief Summary: 76-year-old male admitted 3 days ago to outside hospital for rectal bleeding. Was reportedly discharged with stable hemoglobin of 8. He reports fatigue over the weekend and then recurrent rectal bleeding with clots this morning. He reports mild lightheadedness but no syncope. No chest pain or shortness of breath. Mild left lower quadrant discomfort but no epigastric discomfort, nausea or vomiting. He is not anticoagulated. On exam he is nontoxic. His abdomen is benign except for some mild left lower quadrant tenderness. On rectal exam there is blood visible in the vault per resident. Case was reviewed with gastroenterology and hospital medicine he will be admitted. Final Assessment: Lower GI bleed. No indication for emergent transfusion. Admitted with plan for colonoscopy tomorrow. * Claudette Kline RN - 08/14/2022 11:44 AM EST Pt reported rectal bleeding began on Saturday, pt called the ambulance and went to [facility] and was discharged Saturday. Pt reported two bright red stool stools yesterday. Pt declines bloody stool Saturday and Saturday. Pt reports dizziness, short of breath, weakness and fatigue. Pt reported abdominal pain on Saturday before having a bowel movement but denies any abdominal pain since. * Jamison Ugarte DO - 08/14/2022 11:27 AM EST Telehealth [id number] Note: The following documentation is provided in my role as a TeleEmergency Physician and reflects a live audiovisual interaction. Brief HPI: Pt at [facility] Saturday- significant volume. Pt evaluated with labs. Hg 10-[address] scan which showed inflammation of intestines. Pt had another bloody stool this am with coagulated blood, clots x 2. Pt is light headed today. No pain or fever today. Pt is able to eat and drink. Brief Physical Exam: Vital signs reviewed General appearance: well appearing and ambulatory. Tests Ordered: labs Preliminary testing was ordered. The patient is awaiting a bed in the Emergency Department. Jamison Ugarte DO 08/14/22 1133 documented in this encounter Miscellaneous Notes * Plan of Care - Starla Warner RN - 08/16/2022 7:55 AM EST OUTCOME EVALUATION NOTE: OUTCOME SUMMARY: *See previous note about colonoscopy prep + nausea meds* *Critical K of 3.0 this AM, IV K replacement* Pt A&Ox4, VSS on RA. Pt pain adequately controlled with scheduled pain medications and PRN (seeMAR). As of 0700, pt drank 4L prep, per MD needs to drink another 1L (drink at bedside) due to BM still murky brown watery. Last BM 08/15. Bed/chair alarm settings appropriate for patient. Call lundy in reach, sleeping between care, will continue to monitor and help patient reach d/c goals. PLAN MOVING FORWARD: NPO - colonoscopy today Monitor H&H Monitor I&Os Pain control Mobilize / PT/OT D/c planning INDIVIDUALIZED FALL PREVENTION: Patient is currently a high risk to Fall. Patient educated on bed/chair alarm, demonstrates proper use of call lundy and verbalizes understanding of fall preventions implemented. Patient-specific fall risk factors per assessment: [current deficits]: Bleeding precautions, Lines/Drains, Pain, Medications, Hospital Environment. Assistance [level of assistance required for transfers and ambulation]: SBA cane Supervision [direct monitoring required during toileting and ADLs]: Hands on / Eyes on with ADL's Surveillance [continuous indirect monitoring]: Bed/chair alarm, Masimo, Purposeful Rounding, Nurse Knowledge Exchange Patient-specific fall prevention interventions for sensory deficits provided, if applicable: n/a * Brief Op Note - Santo Duarte MD - 08/15/2022 8:33 AM EST INTERVENTIONAL RADIOLOGY BRIEF PROCEDURE NOTE Patient Name: Chidi Carbone : 1945 Case Date: 08/15/2022 Operators: Attending: All Staff: Staff Role Santo Duarte MD Visitor Shawna Tanner X-Ray Technologist Yanira Tran MD Visitor Post-operative diagnosis/Indication: Name of Procedure Performed: Planned procedure: IR mesenteric angiogram with possible intervention Description of the procedure: mesenteric angio Findings of the procedure: No active bleeding, no embolization performed EBL: <10 mL Specimens: None Complications: No immediate Plan/Disposition: IR Recovery then back to floor. FULL PROCEDURE NOTE TO FOLLOW IN IMAGE REPORT * Plan of Care - Emani Mathis RN - 08/15/2022 4:37 AM EST OUTCOME EVALUATION NOTE: OUTCOME SUMMARY: Pt admitted from ED at 2100 for GI bleed with plan for colonoscopy tomorrow, 1 unit PRBCs complete upon transfer. Promptly after transfer, pt began having large volume BRBPR (500cc x2) followed by a liter of frankblood with no bowel movement. Patient bowel prepping at this time with Golytely. Pt then very nauseous, vomiting, dizzy, weak. Life Safety RN and Ottoniel Baker MD, at bedside throughout this time. Bowel prep stopped. 2 units PRBCs given overnight. GI bleed protocol CT done. IR notified, consulted. Second large bore IV placed. Skin intact on transfer. Pt A&Ox4. RA. VSS. Mobilizes with a 1-assist. , Ilyag, called by patient and updated. PLAN MOVING FORWARD: Pending IR plan Blood transfusions as needed INDIVIDUALIZED FALL PREVENTION INTERVENTIONS: Patient-specific fall risk factors per assessment: [current deficits]: Impaired mobility. Bleeding.Tethers. Hospital environment. Assistance [level of assistance required for transfers and ambulation]: 2-assist Supervision [direct monitoring required during toileting and ADLs]: Hands-on for ADLs Surveillance [continuous indirect monitoring]: Masimo. Call lundy within reach. Bed alarm. Pt able to make needs known. Purposeful hourly rounding. * Initial Assessments - Vandana Villavicencio RN - 08/14/2022 4:46 PM ESTSummary: CM Initial Assessment Office of Care Management Initial Assessment Vandana Villavicencio RN reviewed record and discussed patient with Care Team. Source of Information: Team, bedside nurse, medical record, and Patient Introduced self/reviewed role; services accepted. Reason for Hospitalization: Per GI note: 76 yo M w/ PMH of OA, prostate ca in remission (previous tx w/Lupron, no radiation), who presented to the ED d/t BRBPR and feeling light-headed ultimately c/fLGIB. Covid Vaccination Status: 1st, 2nd & booster Last COVID test: Past medical History: No past medical history on file. Hospitalizations Within the Past 30 Days: no previous admission in last 30 days Current Decision-Making Capacity: Self Advance Care Planning: Attempt Cardiopulmonary Resuscitation - Inpatient Received -Advanced Directive: Yes, on file Who is your DPOA-HC?: Spouse (Danish Betancur, .) Current Coping/Education/Information Needs: Pt is understanding about the plan of care. Current Functional Ability: Independent Functional Status Prior to Admission: Independent, Patient Drives Self Prior ADLs & IADLs: Independent with all ADLs & IADLs Home Environment: Others in the home: spouse. Current Living Arrangements: home/apartment/condo. Accessibility Concerns:Pt lives in a 3 story house with 7 steps to enter. Pt's bedroom is upstairs.Pt denies problems with the stairs.. Resource / Environmental Concerns: Resource/Environmental Concerns: none Current DME: cane - straight Home Address confirmed as: [facility] [address] [address] Social & Family Supports: All names listed below confirmed with patient as current and correct Extended Emergency Contact Information Primary Emergency Contact: Danish Betancur Address: [facility] [address] [place] [address] [place] Relation: Spouse Secondary Emergency Contact: Pushpa Carbone Address: [address] [place] [address] [place] Relation: Child Current Care Provided by: self Provides Primary Care For: no one Caregiver if needed: spouse Quality of Family relationships: helpful, supportive, involved Community Resources being provided currently: none Behavioral Health History: Pt denies. Substance Use/Abuse listed: Social History Tobacco Use Smoking Status Former ??? Years: 15.00 ??? Types: Cigarettes ??? Quit date: 1977 ??? Years since quittin.9 Smokeless Tobacco Never In the past year have you used an illegal drug or used a prescription medication for non-medical reasons?: No 0 No problems reported 1-2 Low level 3-5 Moderate level 6-8 Substantial level 9- 10 Severe level In the past year have you had 5 or more drinks a day containing alcohol?: No 0 to 7 points: Low risk 8 to 15 points: Medium risk 16 to 19 points: High risk 20 to 40 points: Addiction likely Other Pertinent/Service Specific Information: none Health/Prescription Coverage: Primary Insurance: MEDICARE Payor: MEDICARE / Plan: MEDICARE PART A & B / Product Type: *No Product type* / Secondary Insurance: CIGNA Secondary Insurance? (Only Medicare A&B): Yes ; Prescription Coverage: Yes [facility] [address] [address] [id number] [address] [id number] - [facility] [address] [address] [facility] Home Delivery - [facility] [address] [facility] [address] [facility] [place] [address] [place] Status: Patient is a : No Primary Care Provider: Kennedi Shaver MD [phone] Patient/Caregiver Goals of Treatment: Pt anticipates on returning home upon discharge. Potential Needs for Transition of Care: none Agency Referrals: Not Applicable Transportation: no concerns Transportation Anticipated: family or friend will provide (Pt has a friend who will come and pick him up.) Concerns to be Addressed: no discharge needs identified Assessment: Patient is admitted to Medicine service for GI Bleed. Plan: Clear liquid diet. Prep to be started for colonoscopy. A member of the Care Management team will continue to monitor progress, follow for continuity of care and assist with transition of care planning. Vandana Villavicencio RN, BSN program engineer Office of Care Management Pager: [phone] * Consult Note - Lily Francis [facility] - 08/14/2022 4:24 PM EST Clinical Pharmacist Review; Lily Francis [facility], PharmD Geriatric ED Medication Reconciliation Patient: Chidi Carbone 76 y.o. male 1945 Summary of Med-Related Recommendations: The following are my recommendations for PCP's consideration: 1. Consider initiating losartan at 12.5 mg daily; patient was experiencing dizziness from irbesartan and was discontinued Allergies and Drug intolerance: No Known Allergies Reconciled Medication List: Current Facility-Administered Medications Medication Dose Route Frequency Provider Last Rate Last Admin ??? [START ON 08/15/2022] abiraterone (Zytiga) Tab 1,000 mg 1,000 mg Oral Daily Harrison Rose MD ??? finasteride (Proscar) tablet 5 mg 5 mg Oral Nightly Harrison Rose MD ??? [START ON 08/15/2022] predniSONE (Deltasone) tablet 5 mg 5 mg Oral Daily Harrison Rose MD ??? tamsulosin (Flomax) capsule 0.4 mg 0.4 mg Oral Nightly Harrison Rose MD ??? zolpidem (Ambien) tablet 10 mg 10 mg Oral Nightly Harrison Rose MD ??? sodium chloride 0.9 % (flush) (BD PosiFlush Normal Saline 0.9) flush 5 mL 5 mL Intravenous BID Harrison Rose MD ??? sodium chloride 0.9 % (flush) (BD PosiFlush Normal Saline 0.9) flush 5-20 mL 5-20 mL Intravenous Q1 Min PRN Harrison Rose MD ??? lidocaine (Xylocaine) 1% (10 mg/mL) injection 3 mg 0.3 mL Subcutaneous Once PRN Harrison Rose MD ??? melatonin tablet 3 mg 3 mg Oral Nightly PRN Harrison Rose MD ??? polyethylene glycoL (GoLYTELY) BOWEL PREP powder for solution JUG (236g diluted to 4000 mL) 2,000 mL 2,000 mL Oral Once PRN Harrison Rose MD ??? sodium chloride 0.9% infusion 100 mL/hr Intravenous Continuous Harrison Rose MD ??? ondansetron (pf) (Zofran) (2 mg/mL) injection 8 mg 8 mg Intravenous Q8H PRN Harrison Rose MD ??? pantoprazole EC (Protonix) tablet 40 mg 40 mg Oral BID Harrison Rose MD Current Outpatient Medications Medication Sig Dispense Refill ??? abiraterone (Zytiga) 500 mg Tablet Take 1,000 mg by mouth daily. Brand name only. 60 tablet 11 ??? Provigil 100 mg Tablet take 1 tablet by mouth once daily ??? pantoprazole EC (Protonix) 40 mg Tablet, Delayed Release (E.C.) take 1 tablet by mouth twice a day ??? zolpidem (AMBIEN) 10 mg Tablet take 1 tablet by mouth at bedtime ??? leuprolide acetate (LUPRON DEPOT IM) Inject into the muscle. Once every 3 months, dosage unknown ??? tamsulosin (FLOMAX) 0.4 mg Capsule Take 0.4 mg by mouth daily. ??? finasteride (PROSCAR) 5 mg Tablet Take 5 mg by mouth daily. ??? predniSONE (DELTASONE) 5 mg Tablet Take 1 tablet by mouth daily. 30 tablet 11 Medication list is up to date and reconciled Reviewed with patient Changes made to home medication list: 1. Additions: ?? None 2. Deletions: ?? Irbesartan 75 mg 3. Changes: ?? none ??? Adherence tools used: [] Pillbox [x] Calendar [] Blister packaging [] Alarm [] Family/caregiver [] None [] Other: Adherence issues identified: None Beer's List Review: Medication Risk Recommendation zolpidem This medication is associated with delirium, falls, fractures, increased emergency room visits/hospitalizations and motor vehicle crashes in older adults. Patient made aware of risks and adverse effects. Counseled patient to notify his PCP if he experiences any adverse effects Pertinent Drug Interactions: none Patient experiencing side effects from medications? no Liyl Francis [facility] 08/14/22 Duration: 30 minutes * Consult Note - Emani Gray MD - 08/14/2022 2:11 PM EST Images from the original note were not included. DIVISION OF GASTROENTEROLOGY & HEPATOLOGY INITIAL CONSULT REQUESTING PROVIDER: Mendez Hartely MD NAME: Chidi Carbone : 1945 HPI: 76 y.o./ w/ PMH of OA, prostate ca in remission (previous tx w/Lupron, no radiation), who presentedto the ED d/t BRBPR and feeling light-headed. As for recent hx, he presented to [place] on 08/09 with rectal bleeding and abdominal pain. At thattime, he felt light-headed, weak, and had 1 episode of filling toilet bowl with blood. He had sharpLLQ pain associated with this. Hgb was 10 on arrival to [place], dropped to 8 during hospitalization - he was admitted, observed, and this remained stable. He was told to re-present if any recurent sx.-He had not had BM since Saturday (3 days ago), but then this AM had a large BM w/blood and clot in the toilet. As such, he presented here. Hgb on arrival was 7.4, and there was crimson blood in vaulton rectal exam per ED. Of note, pt has been taking 600mg ibuprofen TID for last several months d/t MSK pain. He is not on any anticoagulation. As above, never had radiation for prostate Ca. Has previously had colonoscopy in 2014 - this showed polyps, diverticulosis, but no hemorrhoids. Has also had several EGDs in past for Sol's esophagus. He is feeling okay now, and feels that things have slowed down. Denies fevers, chills, night sweats. No SOB or CP. No N/V or epigastric pain. He last ate at 8pm on 08/13, has been on liquids since. ROS: 10-system ROS negative other than that noted above PAST MEDICAL & SURGICAL HX: No past medical history on file. Past Surgical History: Procedure Laterality Date ??? PRO COLONOSCOPY, DIAGNOSTIC N/A 04/19/2015 COLONOSCOPY, DIAGNOSTIC performed by Paula Rocha MD at [facility] ENDOSCOPY ??? PRO DRESSING CHANGE UNDER ANESTHESIA N/A 06/04/2019 DRESSING CHANGE (FOR OTHER THAN RAUSCH) UNDER ANES. (WRVU 0.86) performed by Rodri Villa MD at [facility] MAIN OR ? ? PRO EDG FLEXIBLE TRANSORAL ABLATE TUMOR POLYP/LESION W/DILATION & WIRE N/A 04/19/2015 EGD, TRANSORAL; WITH ABLATION OF TUMOR(S), POLYP(S), OR OTHER LESION(S) performed by Paula Rocha MD at [facility] ENDOSCOPY ??? PRO LAP, ESOPHAGOGAST FUNDOPLASTY 03/08/2014 LAPAROSCOPIC MODESTO FUNDOPLASTY performed by Surendra Garcia MD at [facility] MAIN OR ??? PRO PREP SITE TRUNK/ARM/LEG 1ST 100 SQ CM/1PCT Right 06/04/2019 SURGICAL PREP/CREATION RECIPIENT SITE, FIRST 100 SQ CM, LEGS (WRVU 3.65) performed by Rodri Villa MD at [facility] MAIN OR ? ? PRO SPLIT GRFT TRUNK, ARM, LEG <100SQCM Right 06/04/2019 SPLIT THICK SKIN GRAFT,100 SQ CM OR LESS, LEGS (WRVU 9.9) performed by Rodri Villa MD at [facility] MAIN OR ??? PRO UPPER GI ENDOSCOPY, BIOPSY 11/27/2011 UPPER GASTROINTESTINAL ENDOSCOPY,WITH BIOPSY SINGLE OR MULTIPLE performed by PAULA ROCHA I at [facility] ENDOSCOPY ??? PRO UPPER GI ENDOSCOPY, BIOPSY 04/22/2012 UPPER GASTROINTESTINAL ENDOSCOPY,WITH BIOPSY SINGLE OR MULTIPLE performed by PAULA ROCHA I at [facility] ENDOSCOPY ??? PRO UPPER GI ENDOSCOPY, BIOPSY 05/12/2013 UPPER GASTROINTESTINAL ENDOSCOPY,WITH BIOPSY SINGLE OR MULTIPLE performed by Paula Rocha MD at [facility] ENDOSCOPY ??? PRO UPPER GI ENDOSCOPY, BIOPSY 10/20/2013 UPPER GASTROINTESTINAL ENDOSCOPY,WITH BIOPSY SINGLE OR MULTIPLE performed by Paula Rocha MD at [facility] ENDOSCOPY ??? PRO UPPER GI ENDOSCOPY, BIOPSY N/A 06/29/2015 EGD WITH BIOPSY performed by Paula Rocha MD at [facility] ENDOSCOPY ??? UPPER GI ENDOSCOPY, EXAM 02/13/2011 UPPER GI ENDOSCOPY performed by PAULA ROCHA I at [facility] ENDOSCOPY ??? UPPER GI ENDOSCOPY, EXAM 05/12/2013 UPPER GI ENDOSCOPY performed by Paula Rocha MD at [facility] ENDOSCOPY ??? UPPER GI ENDOSCOPY, EXAM N/A 04/19/2015 UPPER GI ENDOSCOPY performed by Paula Rocha MD at [facility] ENDOSCOPY ??? UPPER GI ENDOSCOPY, TUMOR ABLATN 04/22/2012 ENDOSCOPY, UPPER GI, W\ABLATION TUMOR\POLYP\LESION performed by PAULA ROCHA I at [facility] ENDOSCOPY SOCIAL HX: Social History Socioeconomic History ??? Marital status: Spouse name: Not on file ??? Number of children: Not on file ??? Years of education: Not on file ??? Highest education level: Not on file Occupational History ??? Not on file Tobacco Use ??? Smoking status: Former Years: 15.00 Types: Cigarettes Quit date: 1977 Years since quittin.9 ??? Smokeless tobacco: Never Vaping Use ??? Vaping Use: Never used Substance and Sexual Activity ??? Alcohol use: Yes Alcohol/week: 14.0 standard drinks Types: 14 Glasses of wine per week ??? Drug use: No ??? Sexual activity: Not on file Other Topics Concern ??? Not on file Social History Narrative ??? Not on file Social Determinants of Health Financial Resource Strain: Not on file Food Insecurity: Not on file Transportation Needs: Not on file Physical Activity: Not on file Housing Stability: Not on file FAMILY HX: Family History Problem Relation Age of Onset ??? Diabetes Neg Hx MEDICATIONS Medication list personally reviewed Home Meds: (Not in a hospital admission) Current Meds: Scheduled: Drips: PRN: Allergies: No Known Allergies OBJECTIVE Vitals: T Temp: [36.4 ??C (97.6 ??F)] HR Heart Rate: [65-87] BP BP: (133-141)/(75-128) RR Resp: [14-18] SpO2 SpO2: [96 %-99 %] IO No intake/output data recorded. Wt Last 80.7 kg (178 lb) Admit 80.74 kg Physical Exam: CONST: Awake, alert, no acute distress HEENT: sclerae anicteric, moist mucous membranes, no oral thrush RESP: normal RR, air entry equal bilaterally, no rales/rhonchi CARDIAC: RRR, normal S1/S2, no appreciable murmurs GI: abdomen soft, non-tender, non-distended, normoactive bowel sounds, tympanic to percussion MSK: legs warm, palpable pulses b/l, no significant edema SKIN: No jaundice, rash, or bruising NEURO: Grossly intact, moves all extremities, no asterixis PSYCH: Pleasant, appropriate affect Labs: Labs personally reviewed in eDH CBC: Recent Labs 08/14/22 1205 WBC 6.7 HGB 7.4* PLATELET 250 MCV 89.8 RDWCV 12.9 COAG: No results for input(s): PTT, INR, PT in the last 168 hours. CHEM: Recent Labs 08/14/22 1205 CREATININE 0.85 BUN 19 NA 143 K 3.5 CL 109* CO2 24 CALCIUM 8.7 HEPATIC: No results for input(s): BILITOT, BILIDIR, ALKPHOS, AST, ALT, ALBUMIN, LIPASE in the last 168 hours. Invalid input(s): TPROT INFLAMM: No results for input(s): CRP in the last 168 hours. IMAGING: Reports and images personally reviewed in eDH. Images independently interpreted. No orders to display ENDOSCOPY: Reports and images personally reviewed in eD 03/2015 Colonoscopy: Impression: ?- The examined portion of the ileum ?was normal. ?- Moderate diverticulosis in the ?entire examined colon. ?- The examination was otherwise ?normal. ?- No specimens collected. 05/2015 EGD: - Z-line regular, 35 cm from the ?incisors. Treated with radiofrequency ?ablation. Biopsied. ?- An anti-reflux surgical site was ?found. ?- Normal examined duodenum. ASSESSMENT & PLAN: 76 yo M w/ PMH of OA, prostate ca in remission (previous tx w/Lupron, no radiation), who presented to the ED d/t BRBPR and feeling light-headed ultimately c/f LGIB. Overall, this is highly suspicious for a diverticular bleed given the associated abd pain and episode of BRBPR after this, paired with the fact it has slowed or essentially stopped. We discussed withpt that other things on the differential include radiation proctitis iso his prostate ca, though pthas never had radiation, as well as hemorrhoids but he has not had a history of these. Additionally, discussed that significant NSAID use could have led to ulcer, but if this were from upper GI source we would expect him to be very unstable and likely hypotensive. Could also be a colonic ulcer, though more rare. Nonetheless, we discussed with pt, makes sense to admit him for observation and prep him for colonoscopy tomorrow for further evaluation. It is interesting that CT at [place] mentioned inflammation in intestines, and wonder if this was diverticular inflammation. Would trend H/H, transfuse for Hgb < 7. Pt knows to avoid all NSAIDs going forward. We will plan for colonoscopy 08/15. Recommendations: - 2 large bore IVs - Trend H/H - Start prep tonight (see below) for colonoscopy 08/15 - Avoid NSAIDs - If hemodynamically unstable or large amounts of hematochezia, recommend CT GI bleed protocol COLONOSCOPY PREP - Clear liquid diet (no red-colored products) now - 2L golytely to start at 6pm and finish by 8pm, then 2L more golytely at 11pm to finish by 1am. Ptto drink 12oz every 10-15 minutes until the intended volume is completed. If patient is nauseous, treat with zofran and put prep on ice to be sipped through straw. - After prep begins, diet should be NPO other than prep/meds with sips. At DE, patient should be strict NPO. - Night float to please check on prep at 1am and continue prep until clear Patient seen with Dr. Rodrigo Gray MD PGY-4, Gastroenterology Associated attestation - Bubba Wallace MD - 08/14/2022 4:14 PM EST I have independently seen and examined the patient, and have reviewed the resident???s above note, and agree with the documented history, physical findings, and study results; my evaluation of the patient is below: I met with Mr Carbone in the ED and agree with the plan as outlined by Dr Isaac Wallace MD * ED Triage - Dena Don RN - 08/14/2022 11:28 AM EST Pt rec'd via ambulation w/ steady gait and use of cane. States seen at [place] 08/09 for rectal bldg where my blood levels were low and they kept me for observation. They did a CT and said they saw inflammation of my intestine. Presents today stating BRRB x1 and intermittent abdominal pain. Denies blood thinners. Intermittent dizziness. Vss; a&ox3; w/p/d. documented in this encounter Plan of Treatment Upcoming Encounters Date Type Department Care Team (Latest Contact Info) Description 09/29/2024 4:30 PM EST Hospital Encounter [place] [address] Lizet Wilkes MD [facility] [place] [address] 09/29/2024 4:30 PM EST - 09/29/2024 5:00 PM EST [place] [phone] Lizet Wilkes MD [facility] [place] [address] EGD, UPPER GI ENDOSCOPY (WRVU 2.09) 11/09/2024 10:00 AM EST Laboratory Appointment [place] [facility] [place] [address] [place] [phone] 11/09/2024 11:00 AM EST Office Visit Hematology [place] [address] Faith Caba MD [facility] DR HEMATOLOGY [place] [address] 11/09/2024 12:00 PM EST Appointment Hematology [place] [address] Scheduled Procedures Name Priority Associated Diagnoses Date/Ti me EGD, UPPER GI ENDOSCOPY (WRVU 2.09) Gastroesophageal reflux disease with esophagitis, unspecified whether hemorrhage 09/29/2024 4:30 PM EST documented as of this encounter Goals Goal Patient Goal Type Associated Problems Recent Progress Patient-Stated? Author [facility] Medication Compliance and Understanding Patient Facing Action Plan Curly Nicolas, [facility] Note: The patient? s goal is to continue positive results of oral chemotherapy by maintaining improved labs PSA or stable scans in clinic for the upcoming year. documented as of this encounter Procedures Procedure Name Priority Date/Time Associated Diagnosis Comments HC VENIPUNCTURE Routine 08/17/2022 1:13 PM EST TRANSFUSE RED BLOOD CELLS Routine 08/17/2022 8:30 AM EST PREPARE RBC Routine 08/17/2022 8:00 AM EST TYPE AND SCREEN VALIDITY Routine 08/17/2022 1:22 AM EST ABORH RECHECK STATUS Routine 08/17/2022 1:22 AM EST HEMOGRAM Routine 08/17/2022 1:22 AM EST DIFFERENTIAL, AUTOMATED Routine 08/17/2022 1:22 AM EST HC HEMOGLOBIN, BLOOD Routine 08/17/2022 1:22 AM EST ABO/RH TYPING Routine 08/17/2022 1:22 AM EST HC CBC,PLT & AUTO DIFF Routine 08/17/2022 1:22 AM EST ANTIBODY SCREEN Routine 08/17/2022 1:22 AM EST HC ABO-MICROTITER Routine 08/17/2022 1:2 2 AM EST HC PHOSPHORUS, SERUM Routine 08/17/2022 1:22 AM EST HC MAGNESIUM, SERUM Routine 08/17/2022 1 :22 AM EST BASIC METABOLIC PANEL Routine 08/17/2022 1:22 AM EST HC VENIPUNCTURE Routine 08/16/2022 5:55 PM EST Colonoscopy, Flexible W Control Bleeding, Any Method ([id number]) 08/16/2022 2:41 PM EST anemia Colonoscopy, Diagnostic ([id number]) 08/16/2022 2:41 PM EST anemia COLONOSCOPY Routine 08/16/2022 2:28 PM EST HC HEMOGLOBIN, BLOOD Routine 08/16/2022 1:20 PM EST HC VENIPUNCTURE Routine 08/16/2022 1:20 PM EST HC VENIPUNCTURE Routine 08/16/2022 7:37 AM EST HEMOGRAM Routine 08/16/2022 1:42 AM EST DIFFERENTIAL, AUTOMATED Routine 08/16/2022 1:42 AM EST HC CBC,PLT & AUTO DIFF Routine 08/16/2022 1:42 AM EST HC PHOSPHORUS, SERUM Routine 08/16/2022 1:42 AM EST HC MAGNESIUM, SERUM Routine 08/16/2022 1 :42 AM EST BASIC METABOLIC PANEL Routine 08/16/2022 1:42 AM EST HC VENIPUNCTURE Routine 08/15/2022 6:07 PM EST HC VENIPUNCTURE Routine 08/15/2022 2:19 PM EST Upper GI Endoscopy, Diagnostic ([id number]) 08/15/2022 12:58 PM EST anemia UPPER GI ENDOSCOPY Routine 08/15/2022 11 :41 AM EST IR ARTERIOGRAM MESENTERIC STAT 08/15/2022 8:36 AM EST HEMOGRAM Routine 08/15/2022 6:18 AM EST DIFFERENTIAL, AUTOMATED Routine 08/15/2022 6:18 AM EST HC VENIPUNCTURE Routine 08/15/2022 6:18 AM EST HC CBC,PLT & AUTO DIFF Routine 08/15/2022 6:18 AM EST HC PHOSPHORUS, SERUM Routine 08/15/2022 6:18 AM EST HC MAGNESIUM, SERUM Routine 08/15/2022 6 :18 AM EST BASIC METABOLIC PANEL Routine 08/15/2022 6:18 AM EST TRANSFUSE RED BLOOD CELLS Routine 08/15/2022 2:15 AM EST PREPARE RBC Routine 08/15/2022 2:[address] ABDOMEN AND PELVIS WWO CONTRAST (GI BLEED) STAT 08/15/2022 1:39 AM EST HC HEMOGLOBIN, BLOOD STAT 08/15/2022 12:50 AM EST TRANSFUSE RED BLOOD CELLS Routine 08/14/2022 11:40 PM EST PREPARE RBC Routine 08/14/2022 10:50 PM EST HC HEMOGLOBIN, BLOOD Routine 08/14/2022 10:13 PM EST TRANSFUSE RED BLOOD CELLS Routine 08/14/2022 6:43 PM EST HC HEMOGLOBIN, BLOOD Routine 08/14/2022 6:14 PM EST PREPARE RBC STAT 08/14/2022 6:00 PM EST HEMOGRAM STAT 08/14/2022 5:34 PM EST DIFFERENTIAL, AUTOMATED STAT 08/14/2022 5:34 PM EST HC CBC,PLT & AUTO DIFF STAT 08/14/2022 5:34 PM EST TYPE AND SCREEN VALIDITY STAT 08/14/2022 12:05 PM EST ABORH RECHECK STATUS STAT 08/14/2022 12:05 PM EST HEMOGRAM STAT 08/14/2022 12:05 PM EST DIFFERENTIAL, AUTOMATED STAT 08/14/2022 12:05 PM EST ABO/RH TYPING STAT 08/14/2022 12:05 PM EST HC CBC,PLT & AUTO DIFF STAT 08/14/2022 12:05 PM EST ANTIBODY SCREEN STAT 08/14/2022 12:05 PM EST HC ABO-MICROTITER STAT 08/14/2022 12: 05 PM EST BASIC METABOLIC PANEL STAT 08/14/2022 12:05 PM EST EKG 12-LEAD STAT 08/14/2022 11:47 AM EST LAB SCAN 08/14/2022 12:00 AM EST documented in this encounter Results * (ABNORMAL) Hemoglobin and Hematocrit, blood (08/17/2022 1:13 PM EST) Hemoglobin 9.5(L) 13.7 - 16.5 g/dL [facility] Hematocrit 28.0(L) 40.5 - 48.5 % [facility] Blood 08/17/2022 1:13 PM EST 08/17/2022 1:18 PM EST Narrative Resulting Agency Comment Spec In Lab Milton Soto MD HEMATOLOGY ORDERAB LES Performing Organization Address City/[facility]/ZIP Co de Phone Number [facility] [place] [address] * Transfuse RBC (08/17/2022 10:50 AM EST) Milton Soto MD NURSING TREATMENT ORDERABLES - BLOOD ADMIN * Transfuse RBC (08/17/2022 10:50 AM EST) Milton Soto MD NURSING TREATMENT ORDERABLES - BLOOD ADMIN * Prepare RBC (08/17/2022 8:00 AM EST) Dispensed? Yes [facility] Blood 08/17/2022 8:00 AM EST 08/17/2022 8:00 AM EST Milton Soto MD BLOOD BANK PRODUCT ORDERABLES Performing Organization Address City/[facility]/ZIP Co de Phone Number [facility] [place] [address] * Type and Screen Validity (08/17/2022 1:22 AM EST) T&S only valid at [facility] Comment:This Type and Screen result is only valid at the [facility] Blood 08/17/2022 1:22 AM EST 08/17/2022 1:41 AM EST Narrative Resulting Agency Comment Spec In Lab Ottoniel Baker MD BLOOD BANK LAB ORDER MONALISA [facility] [place] [address] * ABORH Recheck Status (08/17/2022 1:22 AM EST) ABORH Type Recheck Completed [facility] Blood 08/17/2022 1:22 AM EST 08/17/2022 1:41 AM EST Narrative Resulting Agency Comment Spec In Lab Ottoniel Baker MD BLOOD BANK LAB ORDER MONALISA [facility] [place] [address] * Antibody screen (08/17/2022 1:22 AM EST) Ab Screen Interp Negative [facility] Expires at [id number] on: 08/20/2022 [facility] Blood 08/17/2022 1:22 AM EST 08/17/2022 1:41 AM EST Narrative Resulting Agency Comment Spec In Lab Ottoniel Baker MD BLOOD BANK LAB ORDER MONALISA Performing Organization Address City/[facility]/ZIP Co de Phone Number [facility] [place] [address] * ABO/Rh Typing (08/17/2022 1:22 AM EST) ABORH Type O Pos [facility] Blood 08/17/2022 1:22 AM EST 08/17/2022 1:41 AM EST Narrative Resulting Agency Comment Spec In Lab Ottoniel Baker MD BLOOD BANK LAB ORDER MONALISA [facility] [place] [address] * Differential, Automated (08/17/2022 1:22 AM EST) Neutrophil % 60.0 % [facility] Neutrophil Absolute 3.19 1.70 - 6.10 x10(3)/[facility] Lymph % 23.7 % [facility] Lymphocytes Abs 1.3 0.9 - 3.2 x10(3)/[facility] Monocyte % 11.5 % [facility] Monocyte Abs 0.6 0.3 - 0.9 x10(3)/[facility] Eos % 3.8 % [facility] Eosinophils Abs 0.2 0.0 - 0.4 x10(3)/[facility] Basophil % 0.8 % [facility] Baso Absolute 0.0 0.0 - 0.1 x10(3)/[facility] Immature Gran % 0.20 % [facility] Comment: Immature granulocytes(IG's)percentage and absolute count will include metamyelocytes, myelocytes, and promyelocytes. Blood smears from CBCs yielding IG's will be scanned manually for concordance. If this scan disagrees with the automated IG or if promyelocytes are noted, a manual differential will be performed. Immature Gran Absolute 0.01 0.00 - 0.04 x10(3)/[facility] Blood 08/17/2022 1:22 AM EST 08/17/2022 1:30 AM EST Narrative Resulting Agency Comment Spec In Lab Ottoniel Baker MD HEMATOLOGY ORDERABLE S Performing Organization Address City/State/[facility] Co de Phone Number [facility] [place] [address] * (ABNORMAL) Hemogram (08/17/2022 1:22 AM EST) White Blood Cell 5.3 4.0 - 9.5 x10(3)/ L [facility] Red Blood Cell 2.39(L) 4.58 - 5.54 x10(6)/ L [facility] Hemoglobin 7.1(L) 13.7 - 16.5 g/dL [facility] Hematocrit 20.8(L) 40.5 - 48.5 % [facility] Mean Cell Volume 87.0 82.9 - 93.1 fL [facility] Mean Cell Hemoglobin 29.7 27.5 - 32.1 pg [facility] Mean Cell Hemoglobin Concentration 34.1 32.0 - 35.7 g/dL [facility] Platelet 203 145 - 357 x10(3)/mc L [facility] RDW Standard Deviation 46.1(H) 36.0 - 45.0 fL [facility] RDW coefficient of variation 14.5(H) 11.4 - 13.8 % [facility] Mean Platelet Volume 9.2 7.6 - 12.9 fL [facility] NRBC% auto 0.0 % [facility] NRBC Absolute 0.000 0.000 - 0.000 x10(3)/mc L [facility] Blood 08/17/2022 1:22 AM EST 08/17/2022 1:30 AM EST Narrative Resulting Agency Comment Spec In Lab Ottoniel Bkaer MD HEMATOLOGY ORDERABLE S Performing Organization Address [facility] Co de Phone Number [facility] [place] [address] * Phosphorus (08/17/2022 1:22 AM EST) Phosphorus 3.6 2.5 - 4.5 mg/dL [facility] Blood 08/17/2022 1:22 AM EST 08/17/2022 1:30 AM EST Narrative Resulting Agency Comment Spec In Lab Milton Soto MD CHEMISTRY ORDERABL ES Performing Organization Address [facility] Co de Phone Number [facility] [place] [address] * Magnesium (08/17/2022 1:22 AM EST) Magnesium 0.76 0.69 - 1.07 mmol/L [facility] Blood 08/17/2022 1:22 AM EST 08/17/2022 1:30 AM EST Narrative Resulting Agency Comment Spec In Lab Milton Soto MD CHEMISTRY ORDERABL ES [facility] [place] [address] * (ABNORMAL) Basic Metabolic Panel (non-fasting) (08/17/2022 1:22 AM EST) Glucose 97 65 - 199 mg/dL [facility] Comment:Diabetes: >=200 mg/d L plus symptoms Blood Urea Nitrogen 9(L) 10 - 20 mg/dL [facility] Creatinine 0.74(L) 0.80 - 1.50 mg/dL [facility] Sodium 144 135 - 145 mmol/L [facility] Potassium 3.8 3.5 - 5.0 mmol/L [facility] Comment: Please note: ??Patients with WBC >100,000 may have falsely elevated Potassium levels. ??For accurate Potassium quantification in these patients send serum separator tube (gold top) for subsequent determinations. ??Contact the Clinical Chemistry Laboratory if there are any questions. Chloride 112(H) 98 - 107 mmol/L [facility] Carbon Dioxide 27 22 - 31 mmol/L [facility] Anion Gap 5 5 - 15 mmol/L [facility] Calcium 7.9(L) 8.5 - 10.5 mg/dL [facility] Est Glomerular Filtration Rate 93 >=60 mL/min/1. 73 m?? [facility] Comment: This patient's estimated GFR [...] and symptoms in addition to eGFR. Blood 08/17/2022 1:22 AM EST 08/17/2022 1:30 AM EST Narrative Resulting Agency Comment Spec In Lab Milton Soto MD CHEMISTRY ORDERABL ES Performing Organization Address [facility]/ZIP Co de Phone Number [facility] [place] [address] * (ABNORMAL) Hemoglobin and Hematocrit, blood (08/17/2022 1:22 AM EST) Hemoglobin 7.1(L) 13.7 - 16.5 g/dL [facility] Hematocrit 20.8(L) 40.5 - 48.5 % [facility] Blood 08/17/2022 1:22 AM EST 08/17/2022 1:30 AM EST Narrative Resulting Agency Comment Spec In Lab Milton Soto MD HEMATOLOGY ORDERAB LES Performing Organization Address [facility] Co de Phone Number [facility] [place] [address] * (ABNORMAL) Hemoglobin and Hematocrit, blood (08/16/2022 5:55 PM EST) Hemoglobin 7.4(L) 13.7 - 16.5 g/dL [facility] Hematocrit 21.4(L) 40.5 - 48.5 % [facility] Blood 08/16/2022 5:55 PM EST 08/16/2022 6:05 PM EST Narrative Resulting Agency Comment Spec In Lab Milton Soto MD HEMATOLOGY ORDERAB LES Performing Organization Address City/[facility]/ZIP Co de Phone Number [facility] [place] [address] * COLONOSCOPY (08/16/2022 2:28 PM EST) COLONOSCOPY [facility] Endoscopy Procedure Date: 08/16/2022 2:28 PM ? Patient Name: Chidi Carbone ? Date of : 1945 ? Age: 76 ? Order #: [id number] ? Instrument Name: [id number] ? Procedure: ? Colonoscopy Indications: ? Hematochezia Providers: ? Bubba Wallace, Chad Alcala, ? Adrienne Gonzalez, Audit Partner, ? Emani Gray Referring MD: ?Kennedi Shaver MD Medicines: ? Propofol per Anesthesia Complications: ? No immediate complications. Procedure: ? The procedure, indications, ? benefits, risks [...] direct visualization, advanced to ? the terminal ileum. Careful ? inspection was made as the ? colonoscope was withdrawn. ? Findings: ? The terminal ileum appeared normal. ? There was a visible vessel on the rim of a small ? diverticulum in the ascending. To prevent bleeding ? one hemostatic clip was successfully placed. ? Multiple small and large-mouthed diverticula were ? found throughout the entire colon ? A 5 mm polyp was found in the ascending colon. The ? polyp was sessile. Polypectomy was not attempted. ? The retroflexed view of the distal rectum and anal ? verge was normal and showed no anal or rectal ? abnormalities. ? Moderate Sedation: ? Not applicable - See Anesthesia documentation Impression: ?- The examined portion of the ileum ? was normal. ? - Visible vessel on the rim of a ? small diverticulum in the ascending ? colon; plausible source of recent ? bleeding; clipped to prevent ? bleeding ? - Diverticulosis throughout the ? entire colon. ? - One 5 mm polyp in the ascending ? colon. Resection not attempted. ? - The distal rectum and anal verge ? are normal on retroflexion view. ? - No specimens collected. Recommendation: ?- [facility] to [facility] ? for ongoing care. ? - Clear liquid diet today. ? - Observe clinical course ? - Repeat colonoscopy in next few ? months for polyp ? surveillance/resec tion. ? Procedure Code(s): ? --- Professional --- ? 97029, Colonoscopy, flexible; ? diagnostic, including collection of ? specimen(s) by brushing or washing, ? when performed (separate procedure) Diagnosis Code(s): ? --- Professional --- ? K57.30, Diverticulosis of large ? intestine without perforation or ? abscess without bleeding ? K92.1, Melena (includes ? Hematochezia) ? D12.2, Benign neoplasm of ascending ? colon ? --- Technical --- ? K57.30, Diverticulosis of large ? intestine without perforation or ? abscess without bleeding ? K92.1, Melena (includes ? Hematochezia) ? D12.2, Benign neoplasm of ascending ? colon CPT copyright 2020 [employer]. All rights reserved. The codes documented in this report are preliminary and upon plant physiologist review may be revised to meet current compliance requirements. Attending Participation: ? I was present and participated during the entire ? procedure, including non-bello portions. ? Bubba Wallace, 08/16/2022 3:25:28 PM Number of Addenda: 0 Note Initiated On: 08/16/2022 2:28 PM [employer] 08/16/2022 2:28 PM EST Kennedi Shaver MD GENERAL SURGICAL ORD ERABLES Performing Organization Address [facility] Co de Phone Number [employer] * (ABNORMAL) Hemoglobin and Hematocrit, blood (08/16/2022 1:20 PM EST) Hemoglobin 8.4(L) 13.7 - 16.5 g/dL [facility] Hematocrit 24.8(L) 40.5 - 48.5 % [facility] Blood 08/16/2022 1:20 PM EST 08/16/2022 1:30 PM EST Narrative Resulting Agency Comment Spec In Lab Milton Soto MD HEMATOLOGY ORDERAB LES [facility] [place] [address] * (ABNORMAL) Basic Metabolic Panel (non-fasting) (08/16/2022 1:20 PM EST) Glucose 110 65 - 199 mg/dL [facility] Comment:Diabetes: >=200 mg/d L plus symptoms Blood Urea Nitrogen 8(L) 10 - 20 mg/dL [facility] Creatinine 0.81 0.80 - 1.50 mg/dL [facility] Sodium 142 135 - 145 mmol/L [facility] Potassium 3.3(L) 3.5 - 5.0 mmol/L [facility] Comment: Please note: ??Patients with WBC >100,000 may have falsely elevated Potassium levels. ??For accurate Potassium quantification in these patients send serum separator tube (gold top) for subsequent determinations. ??Contact the Clinical Chemistry Laboratory if there are any questions. Chloride 106 98 - 107 mmol/L [facility] Carbon Dioxide 24 22 - 31 mmol/L [facility] Anion Gap 12 5 - 15 mmol/L [facility] Calcium 8.5 8.5 - 10.5 mg/dL [facility] Est Glomerular Filtration Rate 91 >=60 mL/min/1. 73 m?? [facility] Comment: This patient's estimated GFR [...] and symptoms in addition to eGFR. Blood 08/16/2022 1:20 PM EST 08/16/2022 1:30 PM EST Narrative Resulting Agency Comment Spec In Lab Milton Soto MD CHEMISTRY ORDERABL ES Performing Organization Address City/[facility]/ZIP Co de Phone Number [facility] [place] [address] * (ABNORMAL) Hemoglobin and Hematocrit, blood (08/16/2022 7:37 AM EST) Pathologist [facility] Hemoglobin 7.3(L) 13.7 - 16.5 g/dL [facility] Hematocrit 21.5(L) 40.5 - 48.5 % [facility] Blood 08/16/2022 7:37 AM EST 08/16/2022 7:57 AM EST Narrative Resulting Agency Comment Spec In Lab Milton Soto MD HEMATOLOGY ORDERAB LES Performing Organization Address [facility] Co de Phone Number [facility] [place] [address] * Differential, Automated (08/16/2022 1:42 AM EST) [facility] Neutrophil % 65.8 % [facility] Neutrophil Absolute 3.58 1.70 - 6.10 x10(3)/[facility] Lymph % 18.0 % [facility] Lymphocytes Abs 1.0 0.9 - 3.2 x10(3)/[facility] Monocyte % 12.3 % [facility] Monocyte Abs 0.7 0.3 - 0.9 x10(3)/[facility] Eos % 2.9 % [facility] Eosinophils Abs 0.2 0.0 - 0.4 x10(3)/[facility] Basophil % 0.6 % [facility] Baso Absolute 0.0 0.0 - 0.1 x10(3)/[facility] Immature Gran % 0.40 % [facility] Comment: Immature granulocytes(IG's)percentage and absolute count will include metamyelocytes, myelocytes, and promyelocytes. Blood smears from CBCs yielding IG's will be scanned manually for concordance. If this scan disagrees with the automated IG or if promyelocytes are noted, a manual differential will be performed. Immature Gran Absolute 0.02 0.00 - 0.04 x10(3)/mcL [facility] Blood 08/16/2022 1:42 AM EST 08/16/2022 1:56 AM EST Narrative Resulting Agency Comment Spec In Lab Ottoniel Baker MD HEMATOLOGY ORDERABLE S [facility] [place] [address] * (ABNORMAL) Hemogram (08/16/2022 1:42 AM EST) White Blood Cell 5.4 4.0 - 9.5 x10(3)/mc L [facility] Red Blood Cell 2.67(L) 4.58 - 5.54 x10(6)/[facility] Hemoglobin 7.9(L) 13.7 - 16.5 g/dL [facility] Hematocrit 22.9(L) 40.5 - 48.5 % [facility] Mean Cell Volume 85.8 82.9 - 93.1 [facility] Mean Cell Hemoglobin 29.6 27.5 - 32.1 pg [facility] Mean Cell Hemoglobin Concentration 34.5 32.0 - 35.7 g/dL [facility] Platelet 193 145 - 357 x10(3)/[facility] RDW Standard Deviation 45.9(H) 36.0 - 45.0 [facility] RDW coefficient of variation 14.6(H) 11.4 - 13.8 % [facility] Mean Platelet Volume 9.5 7.6 - 12.9 [facility] NRBC% auto 0.0 % [facility] NRBC Absolute 0.000 0.000 - 0.000 x10(3)/ L [facility] Blood 08/16/2022 1:42 AM EST 08/16/2022 1:56 AM EST Narrative Resulting Agency Comment Spec In Lab Ottoniel Baker MD HEMATOLOGY ORDERABLE S Performing Organization Address [facility] Co de Phone Number [facility] [place] [address] * Phosphorus (08/16/2022 1:42 AM EST) Phosphorus 3.3 2.5 - 4.5 mg/dL [facility] Blood 08/16/2022 1:42 AM EST 08/16/2022 1:56 AM EST Narrative Resulting Agency Comment Spec In Lab Milton Soto MD CHEMISTRY ORDERABL ES Performing Organization Address [facility] de Phone Number [facility] [place] [address] * Magnesium (08/16/2022 1:42 AM EST) Magnesium 0.74 0.69 - 1.07 mmol/L [facility] Blood 08/16/2022 1:42 AM EST 08/16/2022 1:56 AM EST Narrative Resulting Agency Comment Spec In Lab Milton Soto MD CHEMISTRY ORDERABL ES Performing Organization Address [facility] de Phone Number [facility] [place] [address] * (ABNORMAL) Basic Metabolic Panel (non-fasting) (08/16/2022 1:42 AM EST) Glucose 111 65 - 199 mg/dL [facility] Comment:Diabetes: >=200 mg/d L plus symptoms Blood Urea Nitrogen 10 10 - 20 mg/dL [facility] Creatinine 0.76(L) 0.80 - 1.50 mg/dL [facility] Sodium 142 135 - 145 mmol/L [facility] Potassium 3.0(Criti milan) 3.5 - 5.0 mmol/L [facility] Comment: Called by: , Read back by: Starla Warner, Date/Time:08/16/22 02:27. Please note: ??Patients with WBC >100,000 may have falsely elevated Potassium levels. ??For accurate Potassium quantification in these patients send serum separator tube (gold top) for subsequent determinations. ??Contact the Clinical Chemistry Laboratory if there are any questions. Chloride 107 98 - 107 mmol/L [facility] Carbon Dioxide 24 22 - 31 mmol/L [facility] Anion Gap 11 5 - 15 mmol/L [facility] Calcium 8.0(L) 8.5 - 10.5 mg/dL [facility] Est Glomerular Filtration Rate 93 >=60 mL/min/1. 73 m?? [facility] Comment: This patient's estimated GFR [...] and symptoms in addition to eGFR. Blood 08/16/2022 1:42 AM EST 08/16/2022 1:56 AM EST Narrative Resulting Agency Comment Spec In Lab Milton Soto MD CHEMISTRY ORDERABL ES [facility] [place] [address] * (ABNORMAL) Hemoglobin and Hematocrit, blood (08/15/2022 6:07 PM EST) Hemoglobin 8.1(L) 13.7 - 16.5 g/dL [facility] Hematocrit 23.1(L) 40.5 - 48.5 % [facility] Blood 08/15/2022 6:07 PM EST 08/15/2022 6:12 PM EST Narrative Resulting Agency Comment Spec In Lab Milton Soto MD HEMATOLOGY ORDERAB LES Performing Organization Address [facility] de Phone Number [facility] [place] [address] * (ABNORMAL) Hemoglobin and Hematocrit, blood (08/15/2022 2:19 PM EST) Hemoglobin 8.1(L) 13.7 - 16.5 g/dL [facility] Hematocrit 24.0(L) 40.5 - 48.5 % [facility] Blood 08/15/2022 2:19 PM EST 08/15/2022 2:30 PM EST Narrative Resulting Agency Comment Spec In Lab Milton Soto MD HEMATOLOGY ORDERAB LES Performing Organization Address [facility] de Phone Number [facility] [place] [address] * UPPER GI ENDOSCOPY (08/15/2022 11:41 AM EST) UPPER GI ENDOSCOPY [facility] Endoscopy Procedure Date: 08/15/2022 11:41 AM ? Patient Name: Chidi Carbone ? Date of : 1945 ? Age: 76 ? Order #: [id number] ? Instrument Name: [id number] ? Procedure: ? Upper GI endoscopy Indications: ? Hematochezia Providers: ? Emani Tipton, ? Adin Kang, NUZHAT, Addy Miranda Referring MD: ? Medicines: ? Propofol per Anesthesia Complications: ? No immediate complications. Procedure: ? [...] by the ? physician in the pre-procedure ? area. Mental Status Examination: ? alert and oriented. Airway ? Examination: normal oropharyngeal ? airway and neck mobility. ? Respiratory Examination: clear to ? auscultation. CV Examination: ? normal. Prophylactic Antibiotics: ? The patient does not require ? prophylactic antibiotics. Prior ? Anticoagulants: The patient has ? taken no anticoagulant or ? antiplatelet agents. ASA Grade ? Assessment: III - A patient with ? severe systemic disease. After ? reviewing the risks and benefits, ? the patient was deemed in ? satisfactory condition to undergo ? the procedure. The anesthesia plan ? was to use monitored anesthesia ? care (MAC). Immediately prior to ? administration of medications, the ? patient was re-assessed for ? adequacy to receive sedatives. The ? heart rate, respiratory rate, ? oxygen saturations, blood pressure, ? adequacy of pulmonary [...] cancer, and adverse medication ? reactions. The Endoscope was ? introduced through the mouth, and ? advanced to the second part of ? duodenum The patient tolerated the ? procedure well. ? Findings: ? LA Grade C (one or more mucosal breaks continuous ? between tops of 2 or more mucosal folds, less than ? 75% circumference) esophagitis with no bleeding was ? found in the distal esophagus. ? Evidence of a [place] fundoplication was found in the ? gastric fundus. The wrap appeared loose. ? The examined duodenum was normal. ? Moderate Sedation: ? Not applicable - See Anesthesia documentation Impression: ?- LA Grade C esophagitis with no ? bleeding. ? - A [place] fundoplication was ? found. The wrap appears loose. ? - Normal examined duodenum. ? - No specimens collected. Recommendation: ?- Return patient to hospital [facility] ? for ongoing care. ? - Use a proton pump inhibitor PO ? BID. ? - No aspirin, ibuprofen, naproxen, ? or other non-steroidal ? anti-inflammatory drugs. ? - Prep for colonoscopy tomorrow ? - EGD in 2-3 months to confirm ? healing. ? Procedure Code(s): ? --- Professional --- ? 02353, Esophagogastroduod enoscopy, ? flexible, transoral; diagnostic, ? including collection of specimen(s) ? by brushing or washing, when ? performed (separate procedure) Diagnosis Code(s): ? --- Professional --- ? K92.1, Melena (includes ? Hematochezia) ? Z98.890, Other specified ? postprocedural states ? K20.90, Esophagitis, unspecified ? without bleeding ? --- Technical --- ? K92.1, Melena (includes ? Hematochezia) ? Z98.890, Other specified ? postprocedural states ? K20.90, Esophagitis, unspecified ? without bleeding CPT copyright 2020 [employer]. All rights reserved. The codes documented in this report are preliminary and upon plant physiologist review may be revised to meet current compliance requirements. Attending Participation: ? I was present and participated during the entire ? procedure, including non-bello portions. ? Bubba Wallace, 08/15/2022 1:16:02 PM Number of Addenda: 0 Note Initiated On: 08/15/2022 11:41 AM PROVATION 08/15/2022 11:4 1 AM EST Unknown GENERAL SURGICAL ORD ERABLES PROVATION * IR Arteriogram Mesenteric (08/15/2022 8:36 AM EST) Anatomical Region Laterality Modality X-Ray Angiograph y Impressions 08/15/2022 4:31 PM EST Impression: No evidence of active arterial GI bleeding involving the superior mesenteric, inferior mesenteric, or celiac arteries. Uneventful closure device right common femoral artery. Thank you for letting us participate in the care of this patient. ??If you are a health care provider and have any questions regarding this report, please contact the number below. ??For patients who have questions please contact the health healthcare marketer that requested your imaging first. ? Electronically signed by: Santo Duarte MD, [facility] ([phone]), at 08/15/2022 4:31 PM Narrative 08/15/2022 4:31 PM EST Preoperative Diagnosis: ? Lower GI bleeding. Postoperative Diagnosis: ?? Same. Procedure Performed: Right femoral arteriotomy. Selective catheterization superior mesenteric artery. Superior mesenteric angiogram. Selective catheterization celiac artery. Celiac artery angiogram. Selective catheterization in care mesenteric artery. Inferior mesenteric artery angiogram. Closure device right common femoral arteriotomy. Estimated Blood Loss: Less than 25 cc. Fluoroscopy time: 11.7 min Anesthesia: 1. Conscious sedation with titrated Fentanyl with or without Versed during continuous hemodynamic monitoring including pulse oximetry, heart rate and blood pressure was provided by an independent qualified trained Nurse. ?? I, the physician spent 30 minutes of face to face sedation time with the patient. Please see nursing notes for exact medication dosages. 2. 1% lidocaine, local. The patient was informed of the risks, benefits, and alternatives to the procedure and gave written consent, which was then placed in the chart. Appropriate time-out was performed prior to the procedure. First or second generation cephalosporin was not ordered for antimicrobial prophylaxis as it is not indicated or strongly backed by the medical literature. Additional DVT prophylaxis was not provided due to the short nature of the procedure, the lack of general anesthesia, and is not strongly backed by the medical literature for this patient population undergoing this type of minimally invasive image guided procedure. ??First or second generation cephalosporin was not ordered for antimicrobial prophylaxis as it is not indicated or strongly backed by the medical literature. Description of Procedure: ??All elements of maximal sterile barrier technique were met including cap, mask, sterile gown, sterile gloves, large sterile sheet, hand hygiene and 2% chlorhexidine for cutaneous antisepsis. ??Local anesthetic was administered. ?? Using Seldinger technique, the right femoral artery was punctured, and a wire was advanced to the abdominal aorta. A 5-Portuguese sheath was advanced over the wire and secured within the right groin. Using a Sos Omni selective catheter, the superior mesenteric artery was catheterized, and a superior mesenteric artery angiogram was performed in multiple projections. There is no evidence of active arterial bleeding. The superior mesenteric artery is widely patent. The catheter was then used to slightly catheterize the celiac artery, and a celiac angiogram was performed. These images demonstrate a widely patent celiac, left gastric, and splenic artery. The gastroduodenal artery is widely patent. There is no evidence of active bleeding. The hepatic artery is widely patent. The catheter was then used to selectively catheterize the inferior mesenteric artery. An inferior mesenteric artery angiogram was performed in multiple projections. These images demonstrate a widely patent inferior mesenteric artery. There is no evidence of active bleeding or extravasation. The inferior mesenteric artery is widely patent. Following review of images at the catheters and wires were removed. A femoral angiogram was performed through the side port of the sheath. These images demonstrate a widely patent femoral artery. The sheath was then exchanged over wire for a 6 Portuguese StarClose sheath, and the arteriotomy was closed per protocol using the StarClose device without complication. There was immediate hemostasis, and a good pulse within the groin at the end of the procedure. Findings: ??No evidence of active arterial GI bleeding involving the superior mesenteric, inferior mesenteric, or celiac arteries or branches. Procedure Note Santo Duarte MD - 08/15/2022 Preoperative Diagnosis: Lower GI bleeding. Postoperative Diagnosis: Same. Procedure Performed: Right femoral arteriotomy. Selective catheterization superior mesenteric artery. Superiormesenteric angiogram. Selective catheterization celiac artery. Celiac artery angiogram. Selective catheterization in care mesenteric artery. Inferior mesentericartery angiogram. Closure device right common femoral arteriotomy. Estimated Blood Loss: Less than 25 cc. Fluoroscopy time: 11.7 min Anesthesia: 1. Conscious sedation with titrated Fentanyl with or without Versedduring continuous hemodynamic monitoring including pulse oximetry, heart rate andblood pressure was provided by an independent qualified trained Nurse. I,the physician spent 30 minutes of face to face sedation time with the patient. Please see nursing notes for exact medication dosages. 2. 1% lidocaine, local. The patient was informed of the risks, benefits, and alternatives to the procedure and gave written consent, which was then placed in the chart. Appropriate time-out was performed prior to the procedure. First or second generation cephalosporin was not ordered forantimicrobial prophylaxis as it is not indicated or strongly backed by the medicalliterature. Additional DVT prophylaxis was not provided due to the short nature ofthe procedure, the lack of general anesthesia, and is not strongly backed bythe medical literature for this patient population undergoing this type ofminimally invasive image guided procedure. First or second generation cephalosporinwas not ordered for antimicrobial prophylaxis as it is not indicated orstrongly backed by the medical literature. Description of Procedure: All elements of maximal sterile barriertechnique were met including cap, mask, sterile gown, sterile gloves, large sterilesheet, hand hygiene and 2% chlorhexidine for cutaneous antisepsis. Localanesthetic was administered. Using Seldinger technique, the right femoral arterywas punctured, and a wire was advanced to the abdominal aorta. A 5-Frenchsheath was advanced over the wire and secured within the right groin. Using a Sos Omni selective catheter, the superior mesenteric artery was catheterized, and a superior mesenteric artery angiogram was performedin multiple projections. There is no evidence of active arterial bleeding.The superior mesenteric artery is widely patent. The catheter was then used to slightly catheterize the celiac artery, keturah celiac angiogram was performed. These images demonstrate a widely patentceliac, left gastric, and splenic artery. The gastroduodenal artery is widelypatent. There is no evidence of active bleeding. The hepatic artery is widelypatent. The catheter was then used to selectively catheterize the inferiormesenteric artery. An inferior mesenteric artery angiogram was performed inmultiple projections. These images demonstrate a widely patent inferiormesenteric artery. There is no evidence of active bleeding or extravasation. Theinferior mesenteric artery is widely patent. Following review of images at the catheters and wires were removed. A femoral angiogram was performed through the side port of the sheath.These images demonstrate a widely patent femoral artery. The sheath was thenexchanged over wire for a 6 Portuguese StarClose sheath, and the arteriotomy was closedper protocol using the StarClose device without complication. There wasimmediate hemostasis, and a good pulse within the groin at the end of theprocedure. Findings: No evidence of active arterial GI bleeding involving thesuperior mesenteric, inferior mesenteric, or celiac arteries or branches. IMPRESSION Impression: No evidence of active arterial GI bleeding involving the superiormesenteric, inferior mesenteric, or celiac arteries. Uneventful closure device right common femoral artery. Thank you for letting us participate in the care of this patient. If youare a health care provider and have any questions regarding this report,please contact the number below. For patients who have questions please contactthe health healthcare marketer that requested your imaging first. Electronically signed by: Santo Duarte MD, [facility]([phone]), at 08/15/2022 4:31 PM Santo Duarte MD [facility] [place] * Differential, Automated (08/15/2022 6:18 AM EST) Neutrophil % 68.8 % [facility] Neutrophil Absolute 4.10 1.70 - 6.10 x10(3)/[facility] Lymph % 17.6 % [facility] Lymphocytes Abs 1.0 0.9 - 3.2 x10(3)/[facility] Monocyte % 10.1 % [facility] Monocyte Abs 0.6 0.3 - 0.9 x10(3)/[facility] Eos % 2.5 % [facility] Eosinophils Abs 0.2 0.0 - 0.4 x10(3)/[facility] Basophil % 0.7 % [facility] Baso Absolute 0.0 0.0 - 0.1 x10(3)/[facility] Immature Gran % 0.30 % [facility] Comment: Immature granulocytes(IG's)percentage and absolute count will include metamyelocytes, myelocytes, and promyelocytes. Blood smears from CBCs yielding IG's will be scanned manually for concordance. If this scan disagrees with the automated IG or if promyelocytes are noted, a manual differential will be performed. Immature Gran Absolute 0.02 0.00 - 0.04 x10(3)/[facility] Blood 08/15/2022 6:18 AM EST 08/15/2022 6:48 AM EST Narrative Resulting Agency Comment Spec In Lab Harrison Rose MD HEMATOLOGY ORDERABLE S Performing Organization Address City/State/[facility] Co de Phone Number [facility] [place] [address] * (ABNORMAL) Hemogram (08/15/2022 6:18 AM EST) White Blood Cell 6.0 4.0 - 9.5 x10(3)/mc L [facility] Red Blood Cell 2.66(L) 4.58 - 5.54 x10(6)/mc L [facility] Hemoglobin 7.8(L) 13.7 - 16.5 g/dL [facility] Hematocrit 23.4(L) 40.5 - 48.5 % [facility] Mean Cell Volume 88.0 82.9 - 93.1 fL [facility] Mean Cell Hemoglobin 29.3 27.5 - 32.1 pg [facility] Mean Cell Hemoglobin Concentration 33.3 32.0 - 35.7 g/dL [facility] Platelet 187 145 - 357 x10(3)/mc L [facility] RDW Standard Deviation 44.5 36.0 - 45.0 fL [facility] RDW coefficient of variation 14.0(H) 11.4 - 13.8 % [facility] Mean Platelet Volume 9.8 7.6 - 12.9 fL [facility] NRBC% auto 0.0 % [facility] NRBC Absolute 0.000 0.000 - 0.000 x10(3)/mc L [facility] Blood 08/15/2022 6:18 AM EST 08/15/2022 6:48 AM EST Narrative Resulting Agency Comment Spec In Lab Harrison Rose MD HEMATOLOGY ORDERABLE S Performing Organization Address [facility] Co de Phone Number [facility] [place] [address] * Phosphorus (08/15/2022 6:18 AM EST) Phosphorus 3.5 2.5 - 4.5 mg/dL [facility] Blood 08/15/2022 6:18 AM EST 08/15/2022 6:48 AM EST Narrative Resulting Agency Comment Spec In Lab Milton Soto MD CHEMISTRY ORDERABL ES Performing Organization Address [facility] Co de Phone Number [facility] [place] [address] * Magnesium (08/15/2022 6:18 AM EST) Magnesium 0.78 0.69 - 1.07 mmol/L [facility] Blood 08/15/2022 6:18 AM EST 08/15/2022 6:48 AM EST Narrative Resulting Agency Comment Spec In Lab Milton Soto MD CHEMISTRY ORDERABL ES Performing Organization Address [facility] Co de Phone Number [facility] [place] [address] * (ABNORMAL) Basic Metabolic Panel (non-fasting) (08/15/2022 6:18 AM EST) Glucose 109 65 - 199 mg/dL [facility] Comment:Diabetes: >=200 mg/d L plus symptoms Blood Urea Nitrogen 16 10 - 20 mg/dL [facility] Creatinine 0.57(L) 0.80 - 1.50 mg/dL [facility] Sodium 143 135 - 145 mmol/L [facility] Potassium 3.4(L) 3.5 - 5.0 mmol/L [facility] Comment: Please note: ??Patients with WBC >100,000 may have falsely elevated Potassium levels. ??For accurate Potassium quantification in these patients send serum separator tube (gold top) for subsequent determinations. ??Contact the Clinical Chemistry Laboratory if there are any questions. Chloride 112(H) 98 - 107 mmol/L [facility] Carbon Dioxide 21(L) 22 - 31 mmol/L [facility] Anion Gap 10 5 - 15 mmol/L [facility] Calcium 7.8(L) 8.5 - 10.5 mg/dL [facility] Comment:result rechecked-MRM Est Glomerular Filtration Rate 101 >=60 mL/min/1. 73 m?? [facility] Comment: This patient's estimated GFR [...] and symptoms in addition to eGFR. Blood 08/15/2022 6:18 AM EST 08/15/2022 6:48 AM EST Narrative Resulting Agency Comment Spec In Lab Milton Soto MD CHEMISTRY ORDERABL ES [facility] [place] [address] * (ABNORMAL) Hemoglobin and Hematocrit, blood (08/15/2022 6:18 AM EST) Hemoglobin 7.8(L) 13.7 - 16.5 g/dL [facility] Hematocrit 23.4(L) 40.5 - 48.5 % [facility] Blood 08/15/2022 6:18 AM EST 08/15/2022 6:48 AM EST Narrative Resulting Agency Comment Spec In Lab Milton Soto MD [place] [address] * Transfuse RBC (08/15/2022 3:59 AM EST) Milton Soto MD NURSING TREATMENT ORDERABLES - BLOOD ADMIN * Transfuse RBC (08/15/2022 3:59 AM EST) Milton Soto MD NURSING TREATMENT ORDERABLES - BLOOD ADMIN * Transfuse RBC (08/15/2022 2:20 AM EST) Milton Soto MD NURSING TREATMENT ORDERABLES - BLOOD ADMIN * Transfuse RBC (08/15/2022 2:20 AM EST) Milton Soto MD NURSING TREATMENT ORDERABLES - BLOOD ADMIN * Prepare RBC (08/15/2022 2:00 AM EST) Dispensed? Yes [facility] Blood 08/15/2022 2:00 AM EST 08/15/2022 2:00 AM EST Milton Soto MD BLOOD [place] [address] * CT Abdomen & Pelvis wwo Contrast (GI BLEED) (08/15/2022 1:39 AM EST) Anatomical Region Laterality Modality Abdomen, Pelvis Computed Tomogra phy Impressions 08/15/2022 7:44 AM EST 1. ??No evidence of active GI bleeding. 2. ??Hyperemia of the anal mucosa without definitive bleeding. Please correlate with physical exam findings to exclude hemorrhoids. 3. ??Subtle irregularity of the right posterior 11th rib, may represent a nondisplaced fracture. Please correlate with pin point tenderness on physical exam. There is no associated suspicious lesion at this irregularity, clinical concern for site of prostatic metastasis, recommend further evaluation with nuclear medicine bone scan. 4. ??Recurrent small hiatal hernia status post [place]. Preliminary report signed by: Glenroy Castillo at 08/15/2022 6:47 AM I have personally reviewed the image(s) and the resident's interpretation and agree with the findings, Tr Rivera MD at 08/15/2022 7:44 AM Thank you for letting us participate in the care of this patient. ??If you are a health care provider and have any questions regarding this report, please contact the number below. ??For patients who have questions please contact the health healthcare marketer that requested your imaging first. ? Narrative 08/15/2022 7:44 AM EST EXAMINATION: CT ABDOMEN AND PELVIS WWO CONTRAST (GI BLEED) CLINICAL HISTORY: 76 yo male with pmhx of metastatic prostate cancer who presented with large volume hematochezia, please evaluate for possible site of bleed TECHNIQUE: Helical CT of the abdomen and pelvis was performed before and after the intravenous administration contrast utilizing GI bleed protocol. Administered 125.0 ml of OMNIPAQUE 350.00 mg/ml. Oral contrast was not administered. COMPARISON: CT chest abdomen pelvis 02/19/2017. Nuclear medicine bone scan 02/26/2017 FINDINGS: GI Tract: Pre-contrast: No bowel dilatation. Of note there are several hyperdense foci scattered throughout the small and large bowel, for example in the lower rectum (axial series 8, image 624) and within the right hemicolon (axial series 8, image 468). Arterial phase: No active contrast extravasation. Portal venous phase: No pooling of contrast or evidence of active contrast extravasation. Patient is status post fundoplication with small hiatal hernia above the wrap. There are multiple nondilated fluid-filled loops of small and large bowel. Diverticulosis without secondary signs of diverticulitis. Moderate volume of liquid stool throughout the colon. There is hyperemia of the anal mucosa. Lung bases: No focal consolidation. No pleural effusions.. Aortic valve calcifications are noted. Low-attenuation of the blood pool relative to the myocardium consistent with anemia. Liver: Normal in size and attenuation. Subcentimeter hypoattenuating (on all phases) lesion in the left hepatic lobe, too small to further characterize but favored to represent a benign cyst. Bile ducts: Non-dilated Gallbladder: No calcified gallstones. Normal caliber wall. Pancreas: Normal attenuation without ductal dilatation or focal lesion. Spleen: Normal. Adrenals: Normal. Kidneys: Normal symmetric nephrograms. No collecting system dilatation. Multiple parapelvic cysts are noted bilaterally. No nephroureteral calculi. Urinary Bladder: There are small calculi along the posterior bladder wall margin. Small right superior bladder diverticuli. Lymph Nodes: [No pathologically enlarged lymph nodes. Vasculature: No abdominal aortic aneurysm. No dissection. The celiac, SMA and bilateral renal arteries and CHET are widely patent. The hepatic veins and portal vein are patent. Normal caliber of the IVC. Abdominal wall: Normal. Peritoneum: No free fluid. No loculated collection to suggest abscess. No free air. No focal mesenteric edema. Reproductive organs: Unchanged prostatomegaly with coarse calcifications. Osseous structures: Unchanged sclerotic foci in the L2 vertebral body, anterior L3 vertebral body there is diffuse osseous demineralization. Subtle irregularity of the right posterior 11th rib (axial series 5 image 39), not present on most recent available imaging of 02/19/2017. Procedure Note Tr Rivera MD - 08/15/2022 EXAMINATION: CT ABDOMEN AND PELVIS WWO CONTRAST (GI BLEED) CLINICAL HISTORY: 76 yo male with pmhx of metastatic prostate cancer who presented with large volume hematochezia, please evaluate for possiblesite of bleed TECHNIQUE: Helical CT of the abdomen and pelvis was performed before andafter the intravenous administration contrast utilizing GI bleed protocol. Administered 125.0 ml of OMNIPAQUE 350.00 mg/ml. Oral contrast was not administered. COMPARISON: CT chest abdomen pelvis 02/19/2017. Nuclear medicine bone scan 02/26/2017 FINDINGS: GI Tract: Pre-contrast: No bowel dilatation. Of note there are several hyperdensefoci scattered throughout the small and large bowel, for example in the lowerrectum (axial series 8, image 624) and within the right hemicolon (axial series8, image 468). Arterial phase: No active contrast extravasation. Portal venous phase: No pooling of contrast or evidence of activecontrast extravasation. Patient is status post fundoplication with small hiatal hernia above thewrap. There are multiple nondilated fluid-filled loops of small and largebowel. Diverticulosis without secondary signs of diverticulitis. Moderate volumeof liquid stool throughout the colon. There is hyperemia of the analmucosa. Lung bases: No focal consolidation. No pleural effusions.. Aortic valve calcifications are noted. Low-attenuation of the blood pool relative tothe myocardium consistent with anemia. Liver: Normal in size and attenuation. Subcentimeter hypoattenuating (onall phases) lesion in the left hepatic lobe, too small to further characterizebut favored to represent a benign cyst. Bile ducts: Non-dilated Gallbladder: No calcified gallstones. Normal caliber wall. Pancreas: Normal attenuation without ductal dilatation or focal lesion. Spleen: Normal. Adrenals: Normal. Kidneys: Normal symmetric nephrograms. No collecting system dilatation.Multiple parapelvic cysts are noted bilaterally. No nephroureteral calculi. Urinary Bladder: There are small calculi along the posterior bladderwall margin. Small right superior bladder diverticuli. Lymph Nodes: [No pathologically enlarged lymph nodes. Vasculature: No abdominal aortic aneurysm. No dissection. The celiac, SMAand bilateral renal arteries and CHET are widely patent. The hepatic veins andportal vein are patent. Normal caliber of the IVC. Abdominal wall: Normal. Peritoneum: No free fluid. No loculated collection to suggest abscess. Nofree air. No focal mesenteric edema. Reproductive organs: Unchanged prostatomegaly with coarsecalcifications. Osseous structures: Unchanged sclerotic foci in the L2 vertebral body,anterior L3 vertebral body there is diffuse osseous demineralization. Subtleirregularity of the right posterior 11th rib (axial series 5 image 39), not present onmost recent available imaging of 02/19/2017. IMPRESSION 1. No evidence of active GI bleeding. 2. Hyperemia of the anal mucosa without definitive bleeding. Pleasecorrelate with physical exam findings to exclude hemorrhoids. 3. Subtle irregularity of the right posterior 11th rib, may represent a nondisplaced fracture. Please correlate with pin point tenderness onphysical exam. There is no associated suspicious lesion at this irregularity,clinical concern for site of prostatic metastasis, recommend further evaluationwith nuclear medicine bone scan. 4. Recurrent small hiatal hernia status post [place]. Preliminary report signed by: Glenroy Castillo at 08/15/2022 6:47 AM I have personally reviewed the image(s) and the resident's interpretationand agree with the findings, Tr Rivera MD at 08/15/2022 7:44 AM Thank you for letting us participate in the care of this patient. If youare a health care provider and have any questions regarding this report,please contact the number below. For patients who have questions please contactthe health healthcare marketer that requested your imaging first. Milton Soto MD IMG CT ORDERABLES * (ABNORMAL) Hemoglobin and Hematocrit, blood (08/15/2022 12:50 AM EST) Hemoglobin 6.5(L) 13.7 - 16.5 g/dL [facility] Hematocrit 19.6(L) 40.5 - 48.5 % [facility] Blood 08/15/2022 12:5 0 AM EST 08/15/2022 1:03 AM EST Narrative Resulting Agency Comment Spec In Lab Milton Soto MD HEMATOLOGY ORDERAB LES Performing Organization Address City/[facility]/ZIP Co de Phone Number [facility] [place] [address] * Prepare RBC (08/14/2022 10:50 PM EST) Dispensed? Yes [facility] Blood 08/14/2022 10:5 0 PM EST 08/14/2022 10:52 PM EST Milton Soto MD BLOOD BANK PRODUCT ORDERABLES Performing Organization Address City/[facility]/ZIP Co de Phone Number [facility] [place] [address] * (ABNORMAL) Hemoglobin and Hematocrit, blood (08/14/2022 10:13 PM EST) Hemoglobin 6.9(L) 13.7 - 16.5 g/dL [facility] Hematocrit 21.2(L) 40.5 - 48.5 % [facility] Blood 08/14/2022 10:1 3 PM EST 08/14/2022 10:18 PM EST Narrative Resulting Agency Comment Spec In Lab Milton Soot MD HEMATOLOGY ORDERAB LES Performing Organization Address City/[facility]/ZIP Co de Phone Number [facility] [place] [address] * Transfuse RBC (08/14/2022 9:28 PM EST) Milton Soto MD NURSING TREATMENT ORDERABLES - BLOOD ADMIN * Transfuse RBC (08/14/2022 9:28 PM EST) Milton Soto MD NURSING TREATMENT ORDERABLES - BLOOD ADMIN * (ABNORMAL) Hemoglobin and Hematocrit, blood (08/14/2022 6:14 PM EST) Hemoglobin 6.6(L) 13.7 - 16.5 g/dL [facility] Hematocrit 19.7(L) 40.5 - 48.5 % [facility] Blood 08/14/2022 6:14 PM EST 08/14/2022 6:47 PM EST Narrative Resulting Agency Comment Spec In Lab Milton Soto MD HEMATOLOGY ORDERAB LES Performing Organization Address [facility] [place] [address] * Prepare RBC (08/14/2022 6:00 PM EST) Dispensed? Yes [facility] Blood 08/14/2022 6:00 PM EST 08/14/2022 5:58 PM EST Milton Soto MD BLOOD BANK PRODUCT ORDERABLES Performing Organization Address [facility] [place] [address] * Differential, Automated (08/14/2022 5:34 PM EST) Neutrophil % 57.9 % [facility] Neutrophil Absolute 3.04 1.70 - 6.10 x10(3)/[facility] Lymph % 25.6 % [facility] Lymphocytes Abs 1.3 0.9 - 3.2 x10(3)/[facility] Monocyte % 11.3 % [facility] Monocyte Abs 0.6 0.3 - 0.9 x10(3)/[facility] Eos % 4.0 % [facility] Eosinophils Abs 0.2 0.0 - 0.4 x10(3)/[facility] Basophil % 0.8 % [facility] Baso Absolute 0.0 0.0 - 0.1 x10(3)/[facility] Immature Gran % 0.40 % [facility] Comment: Immature granulocytes(IG's)percentage and absolute count will include metamyelocytes, myelocytes, and promyelocytes. Blood smears from CBCs yielding IG's will be scanned manually for concordance. If this scan disagrees with the automated IG or if promyelocytes are noted, a manual differential will be performed. Immature Gran Absolute 0.02 0.00 - 0.04 x10(3)/mcL [facility] Blood 08/14/2022 5:34 PM EST 08/14/2022 5:34 PM EST Narrative Resulting Agency Comment Spec In Lab Nikhil Dozier MD HEMATOLOGY ORDERAB LES [facility] [place] [address] * (ABNORMAL) Hemogram (08/14/2022 5:34 PM EST) White Blood Cell 5.2 4.0 - 9.5 x10(3)/mc L [facility] Red Blood Cell 2.02(L) 4.58 - 5.54 x10(6)/mc L [facility] Hemoglobin 6.1(L) 13.7 - 16.5 g/dL [facility] Hematocrit 18.3(L) 40.5 - 48.5 % [facility] Mean Cell Volume 90.6 82.9 - 93.1 fL [facility] Mean Cell Hemoglobin 30.2 27.5 - 32.1 pg [facility] Mean Cell Hemoglobin Concentration 33.3 32.0 - 35.7 g/dL [facility] Platelet 213 145 - 357 x10(3)/mc L [facility] RDW Standard Deviation 42.5 36.0 - 45.0 [facility] RDW coefficient of variation 12.8 11.4 - 13.8 % [facility] Mean Platelet Volume 9.6 7.6 - 12.9 fL [facility] NRBC% auto 0.0 % [facility] NRBC Absolute 0.000 0.000 - 0.000 x10(3)/mc L [facility] Blood 08/14/2022 5:34 PM EST 08/14/2022 5:34 PM EST Narrative Resulting Agency Comment Spec In Lab Nikhil Dozier MD HEMATOLOGY ORDERAB LES [facility] [place] [address] * Type and Screen Validity (08/14/2022 12:05 PM EST) T&S only valid at [facility] Comment:This Type and Screen result is only valid at the [facility] Blood 08/14/2022 12:0 5 PM EST 08/14/2022 12:44 PM EST Narrative Resulting Agency Comment Spec In Lab Jamison Ugarte [employer] BLOOD BANK LAB ORDER MONALISA Performing Organization Address City/[facility]/ZIP Co de Phone Number [facility] [place] [address] * ABORH Recheck Status (08/14/2022 12:05 PM EST) ABORH Recheck Order Order Placed [facility] ABORH Type Recheck Complete [facility] Blood 08/14/2022 12:0 5 PM EST 08/14/2022 12:44 PM EST Narrative Resulting Agency Comment Spec In Lab Jamison P Shanel DO BLOOD BANK LAB ORDER MONALISA [facility] [place] [address] * Antibody screen (08/14/2022 12:05 PM EST) Ab Screen Interp Negative [facility] Expires at [id number] on: 08/17/2022 [facility] Blood 08/14/2022 12:0 5 PM EST 08/14/2022 12:44 PM EST Narrative Resulting Agency Comment Spec In Lab Jamison Mika [facility] BLOOD BANK LAB ORDER MONALISA [facility] [place] [address] * ABO/Rh Typing (08/14/2022 12:05 PM EST) ABORH Type O Pos [facility] Blood 08/14/2022 12:0 5 PM EST 08/14/2022 12:44 PM EST Narrative Resulting Agency Comment Spec In Lab Jamison P [facility] BLOOD BANK LAB ORDER MONALISA Performing Organization Address City/[facility] Co de Phone Number [facility] [place] [address] * Differential, Automated (08/14/2022 12:05 PM EST) Neutrophil % 64.1 % [facility] Neutrophil Absolute 4.30 1.70 - 6.10 x10(3)/[facility] Lymph % 22.6 % [facility] Lymphocytes Abs 1.5 0.9 - 3.2 x10(3)/[facility] Monocyte % 9.5 % [facility] Monocyte Abs 0.6 0.3 - 0.9 x10(3)/[facility] Eos % 3.1 % [facility] Eosinophils Abs 0.2 0.0 - 0.4 x10(3)/[facility] Basophil % 0.4 % [facility] Baso Absolute 0.0 0.0 - 0.1 x10(3)/[facility] Immature Gran % 0.30 % [facility] Comment: Immature granulocytes(IG's)percentage and absolute count will include metamyelocytes, myelocytes, and promyelocytes. Blood smears from CBCs yielding IG's will be scanned manually for concordance. If this scan disagrees with the automated IG or if promyelocytes are noted, a manual differential will be performed. Immature Gran Absolute 0.02 0.00 - 0.04 x10(3)/mcL [facility] Blood 08/14/2022 12:0 5 PM EST 08/14/2022 12:36 PM EST Narrative Resulting Agency Comment Spec In Lab Jamison Ugarte DO HEMATOLOGY ORDERABLE S [facility] [place] [address] * (ABNORMAL) Hemogram (08/14/2022 12:05 PM EST) White Blood Cell 6.7 4.0 - 9.5 x10(3)/mc L [facility] Red Blood Cell 2.45(L) 4.58 - 5.54 x10(6)/mc L [facility] Hemoglobin 7.4(L) 13.7 - 16.5 g/dL [facility] Hematocrit 22.0(L) 40.5 - 48.5 % [facility] Mean Cell Volume 89.8 82.9 - 93.1 fL [facility] Mean Cell Hemoglobin 30.2 27.5 - 32.1 pg [facility] Mean Cell Hemoglobin Concentration 33.6 32.0 - 35.7 g/dL [facility] Platelet 250 145 - 357 x10(3)/mc L [facility] RDW Standard Deviation 42.4 36.0 - 45.0 [facility] RDW coefficient of variation 12.9 11.4 - 13.8 % [facility] Mean Platelet Volume 9.7 7.6 - 12.9 fL [facility] NRBC% auto 0.0 % [facility] NRBC Absolute 0.000 0.000 - 0.000 x10(3)/mc L [facility] Blood 08/14/2022 12:0 5 PM EST 08/14/2022 12:36 PM EST Narrative Resulting Agency Comment Spec In Lab Jamison Ugarte DO HEMATOLOGY ORDERABLE S [facility] [place] [address] * (ABNORMAL) Basic Metabolic Panel (non-fasting) (08/14/2022 12:05 PM EST) Glucose 112 65 - 199 mg/dL [facility] Comment:Diabetes: >=200 mg/d L plus symptoms Blood Urea Nitrogen 19 10 - 20 mg/dL [facility] Creatinine 0.85 0.80 - 1.50 mg/dL [facility] Sodium 143 135 - 145 mmol/L [facility] Potassium 3.5 3.5 - 5.0 mmol/L [facility] Comment: Please note: ??Patients with WBC >100,000 may have falsely elevated Potassium levels. ??For accurate Potassium quantification in these patients send serum separator tube (gold top) for subsequent determinations. ??Contact the Clinical Chemistry Laboratory if there are any questions. Chloride 109(H) 98 - 107 mmol/L [facility] Carbon Dioxide 24 22 - 31 mmol/L [facility] Anion Gap 10 5 - 15 mmol/L [facility] Calcium 8.7 8.5 - 10.5 mg/dL [facility] Est Glomerular Filtration Rate 89 >=60 mL/min/1. 73 m?? [facility] Comment: This patient's estimated GFR [...] and symptoms in addition to eGFR. Blood 08/14/2022 12:0 5 PM EST 08/14/2022 12:36 PM EST Narrative Resulting Agency Comment Spec In Lab Jamison Ugarte DO CHEMISTRY ORDERABLES [facility] [place] [address] * EKG 12 Lead (08/14/2022 11:47 AM EST) Ventricular rate 74 BPM MUSE SYSTEM Atrial Rate 74 BPM MUSE SYSTEM P-R Interval 178 ms MUSE SYSTEM QRS Duration 78 ms MUSE SYSTEM Q-T Interval 392 ms MUSE SYSTEM QTC Calculated (Bezet) 435 ms MUSE SYSTEM Calculated P Reed 41 degrees MUSE SYSTEM Calculated R Reed -10 degrees MUSE SYSTEM Calculated T Reed 3 degrees MUSE SYSTEM INTERPRETATION Sinus rhythm with frequent Premature ventricular complexes Minimal voltage criteria for LVH, may be normal variant ( R in aVL ) Nonspecific ST abnormality Abnormal ECG No previous ECGs available Confirmed by Thanh Andre ([id number]) on 08/14/2022 1:09:20 PM MUSE SYSTEM 08/14/2022 11:4 7 AM EST 08/14/2022 1:09 PM EST Jamison Ugarte DO ECG ORDERABLES MUSE SYSTEM * SCAN DOC: LAB (08/14/2022 12:00 AM EST) Narrative 08/14/2022 12:00 AM EST Ordered by an unspecified provider. Scanning Provider MEDIA MGR SCAN EXT O RDR/RSLT documented in this encounter Visit Diagnoses Diagnosis GI bleed- Primary Hemorrhage of gastrointestinal tract, unspecified GI bleed Hemorrhage of gastrointestinal tract, unspecified Neoplasm of prostate, 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 Acute blood loss anemia Acute posthemorrhagic anemia Gastroesophageal reflux disease with esophagitis, unspecified whether hemorrhage documented in this encounter Admitting Diagnoses Diagnosis GI bleed Hemorrhage of gastrointestinal tract, unspecified documented in this encounter Administered Medications Inactive Administered Medications - up to 3 most recent administrations Medication Order MAR Action Action Date Dose Rate Site abiraterone (Zytiga) Tab 1,000 mg 1,000 mg, Oral, DAILY, First dose on Sat08/15/22 at 0900, Until Discontinued Given 08/17/2022 9:10 AM EST 1,000 mg Given 08/16/2022 9:31 AM EST 1,000 mg fentaNYL (pf) (50 mcg/mL) multi-dose injection 25-50 mcg 25-50 mcg, Intravenous, EVERY 3 MIN PRN, Starting on Sat08/15/22 at 0728, Until Sat08/15/22 at 1010, Pain, per unit protocol, For use in Interventional Radiology (IR) only for procedural sedation with direct provider supervision and verbal order. - Start dose: 50 mcg (reduce dose to 25 mcg if history of sedation sensitivity). - Titration dose: 25-50 mcg IV, (based on patient response) every 3 minutes PRN to maintain procedural pain less than 2 per Pain Scale. Maximum dose: 50 mcg/dose, 250 mcg/hour, Angio/IR (Intra-Procedure), Routine Given 08/15/2022 8:00 AM EST 25 mcg Given 08/15/2022 7:55 AM EST 25 mcg Given 08/15/2022 7:44 AM EST 50 mcg finasteride (Proscar) tablet 5 mg 5 mg, Oral, NIGHTLY, First dose on Sat08/14/22 at 2100, Until Discontinued, DO NOT SPLIT, CRUSH OR OPEN, Routine Given 08/16/2022 9:07 PM EST 5 mg iohexoL (Omnipaque) (350 mg/mL) solution 0-200 mL 0-200 mL, Intravenous, ONCE PRN, 1 dose, Starting on Sat08/15/22 at 0127, Until Sat08/15/22 at 0139, Per Protocol, Warning Vesicant/Irritant Medication , Radiology Contrast, Routine Given 08/15/2022 1:39 AM EST 125 mLs iohexoL (Omnipaque) (350 mg/mL) solution 150 mL 150 mL, Intra-arterial, ONCE PRN, 1 dose, Starting on Sat08/15/22 at 0850, Until Sat08/15/22 at 0851, Per Protocol, Warning Vesicant/Irritant Medication , Angio/IR (Intra-Procedure), Routine Given 08/15/2022 8:51 AM EST 125 mLs lidocaine (Xylocaine) 1% (10 mg/mL) injection 10 mg 10 mg, Subcutaneous, ONCE, 1 dose, On Sat08/15/22 at 0815, For use in Interventional Radiology (IR) only for procedure with direct provider supervision and verbal order., Angio/IR (Intra-Procedure), Routine Given 08/15/2022 7:47 AM EST 10 mg LORazepam (Ativan) tablet 0.5 mg 0.5 mg, Oral, EVERY 6 HOURS PRN, 2 doses, Starting on Sat08/15/22 at 2204, Until Sat08/16/22 at 0451, Nausea, Routine Given 08/16/2022 4:51 AM EST 0.5 mg Given 08/15/2022 10:30 PM EST 0.5 mg LORazepam (Ativan) tablet 0.5 mg 0.5 mg, Oral, ONCE, 1 dose, On Sat08/16/22 at 0130, Routine Given 08/16/2022 1:05 AM EST 0.5 mg magnesium sulfate 2 g in sterile water 50 mL infusion 2 g, Intravenous, ONCE, 1 dose, On Sat08/17/22 at 0845, Administer over 120 Minutes New Bag 08/17/2022 8:25 AM EST 2 g 25 mL/hr midazolam (Versed) (1 mg/mL) injection 0.5-1 mg 0.5-1 mg, Intravenous, EVERY 3 MIN PRN, Starting on Sat08/15/22 at 0728, Until Sat08/15/22 at 1010, Sedation, For use in Interventional Radiology (IR) only for procedural sedation with direct provider supervision and verbal order. - Start dose: 1 mg (Reduce dose to 0.5 mg if history of sedation sensitivity). - Titration dose: 0.5 mg - 1 mg (based on patient response) every 3 minutes PRN to obtain RASS score of -3. Maximum dose: 1 mg/dose, 5 mg/hour., Angio/IR (Intra-Procedure), Routine Given 08/15/2022 8:00 AM EST 0.5 mg Given 08/15/2022 7:55 AM EST 0.5 mg Given 08/15/2022 7:44 AM EST 1 mg ondansetron (pf) (Zofran) (2 mg/mL) injection 8 mg 8 mg, Intravenous, EVERY 8 HOURS PRN, Starting on Sat08/14/22 at 1622, Until Sat08/16/22 at 0821, Nausea Given 08/15/2022 7:38 PM EST 8 mg Oral Chemotherapy (Inpatient Use Only) Oral pantoprazole EC (Protonix) tablet 40 mg 40 mg, Oral, 2 TIMES DAILY, First dose on Sat08/14/22 at 2100, Until Discontinued, DO NOT CRUSH OR OPEN Given 08/17/2022 8:24 AM EST 40 mg Given 08/16/2022 9:07 PM EST 40 mg Given 08/16/2022 9:31 AM EST 40 mg polyethylene glycoL (GoLYTELY) BOWEL PREP powder for solution JUG (236g diluted to 4000 mL) 1,000 mL 1,000 mL, Oral, ONCE, 1 dose, On Sat08/16/22 at 0700, This package contains polyethylene glycol 236 g to be dissolved in 4000 mL., Routine Given 08/16/2022 7:40 AM EST 1,000 mLs polyethylene glycoL (GoLYTELY) BOWEL PREP powder for solution JUG (236g diluted to 4000 mL) 2,000 mL 2,000 mL, Oral, ONCE, 1 dose, On Sat08/14/22 at 1800, A patient is considered clear and ready for the procedure only if the rectal effluent is clear as water. If not, up to an additional 2 Liters of PEG solution may be given within the timeframe above. Finish the first 2L by 8pm. If need to give additional, finish by 1am. This package contains polyethylene glycol 236 g to be dissolved in 4000 mL., Routine Given 08/14/2022 6:11 PM EST 2,000 mLs polyethylene glycoL (GoLYTELY) BOWEL PREP powder for solution JUG (236g diluted to 4000 mL) 2,000 mL 2,000 mL, Oral, ONCE PRN, 1 dose, Starting on Sat08/15/22 at 1800, Until Sat08/17/22 at 1948, If not clear see Admin Inst:, A patient is considered clear and ready for the procedure only if the rectal effluent is clear as water. If not, up to an additional 2 Liters of PEG solution may be given within the timeframe above. Finish the first 2L by 8pm. If need to give additional, finish by 1am. This package contains polyethylene glycol 236 g to be dissolved in 4000 mL., Routine polyethylene glycoL (GoLYTELY) BOWEL PREP powder for solution JUG (236g diluted to 4000 mL) 4,000 mL 4,000 mL, Oral, ONCE, 1 dose, On Sat08/15/22 at 1830, This package contains polyethylene glycol 236 g to be dissolved in 4000 mL., Routine Given 08/15/2022 6:29 PM EST 4,000 mLs potassium chloride 10 mEq in sterile water 100 mL infusion 10 mEq, Intravenous, EVERY 2 HOURS, 4 doses, First dose on Sat08/16/22 at 0345, Last dose on Sat08/16/22 at 0945, Administer over 60 Minutes, Warning Vesicant/Irritant Medication New Bag 08/16/2022 9:37 AM EST 10 mEq 100 mL/hr New Bag 08/16/2022 7:40 AM EST 10 mEq 100 mL/hr New Bag 08/16/2022 4:50 AM EST 10 mEq 100 mL/hr potassium chloride ER (K-Dur/Klor-Con) tablet 40 mEq 40 mEq, Oral, EVERY 4 HOURS, 2 doses, First dose on Sat08/16/22 at 1715, Last dose on Sat08/16/22 at 2115, Routine Given 08/16/2022 9:06 PM EST 40 mEq Given 08/16/2022 4:45 PM EST 40 mEq potassium chloride ER (K-Dur/Klor-Con) tablet 40 mEq 40 mEq, Oral, ONCE, 1 dose, On Sat08/17/22 at 0845, Routine Given 08/17/2022 8:25 AM EST 40 mEq predniSONE (Deltasone) tablet 5 mg 5 mg, Oral, DAILY, First dose on Sat08/15/22 at 0900, Until Discontinued, Routine Given 08/17/2022 8:24 AM EST 5 mg Given 08/16/2022 9:31 AM EST 5 mg prochlorperazine (Compazine) (5 mg/mL) injection 10 mg 10 mg, Intravenous, EVERY 6 HOURS PRN, Starting on Sat08/16/22 at 0821, Until Sat08/17/22 at 1948, Nausea, Vomiting, Routine Given 08/16/2022 9:31 AM EST 10 mg sodium chloride 0.9 % (flush) (BD PosiFlush Normal Saline 0.9) flush 5 mL 5 mL, Intravenous, 2 TIMES DAILY, First dose on Sat08/14/22 at 2100, Until Discontinued, Routine Given 08/17/2022 8:25 AM EST 5 mLs Given 08/16/2022 9:07 PM EST 5 mLs Given 08/16/2022 9:13 AM EST 5 mLs sodium chloride 0.9% infusion 100 mL/hr, Intravenous, CONTINUOUS, Starting on Sat08/14/22 at 1624, Until Sat08/15/22 at 0223 New Bag 08/14/2022 4:24 PM EST 100 mL/hr 100 mL/hr tamsulosin (Flomax) capsule 0.4 mg 0.4 mg, Oral, NIGHTLY, First dose on Sat08/14/22 at 2100, Until Discontinued, DO NOT CRUSH OR OPEN, Routine Given 08/16/2022 9:07 PM EST 0.4 mg zolpidem (Ambien) tablet 10 mg 10 mg, Oral, NIGHTLY PRN, Starting on Sat08/15/22 at 1100, Until Sat08/17/22 at 1948, Sleep, Routine Given 08/16/2022 9:11 PM EST 10 mg documented in this encounter Active and Recently Administered Medications Times are shown in EST. Scheduled Medication Order 08/15/2022 08/16/2022 08/17/2022 abiraterone (Zytiga) Tab 1,000 mg 1,000 mg, Oral, DAILY, First dose on Sat08/15/22 at 0900, Until Discontinued 0900 (Hold - Provider: Marisa Pascual RN - Reason: Per MD Order - Comment: per Fang- hold meds)1148 (NOV Hold - Provider: Admin Adt - Reason: Transfer to a Procedural area)1354 (NOV Unhold - Provider: Admin Adt) 0931 (Given - Provider: Denise Blas RN)1411 (NOV Hold - Provider: Admin Adt - Reason: Transfer to a Procedural area)1552 (NOV Unhold - Provider: Admin Adt) 0910 (Given - Provider: Faye Sahu RN) finasteride (Proscar) tablet 5 mg 5 mg, Oral, NIGHTLY, First dose on Sat08/14/22 at 2100, Until Discontinued, DO NOT SPLIT, CRUSH OR OPEN, Routine 1148 (NOV Hold - Provider: Admin Adt - Reason: Transfer to a Procedural area)1354 (NOV Unhold - Provider: Admin Adt)2100 (Not Given - Provider: Starla Warner RN - Reason: NPO - Comment: NPO - HOLD MEDS) 1411 (NOV Hold - Provider: Admin Adt - Reason: Transfer to a Procedural area)1552 (NOV Unhold - Provider: Admin Adt)2107 (Given - Provider: Denzel Arboleda RN) lidocaine (Xylocaine) 1% (10 mg/mL) injection 10 mg (COMPLETED) 10 mg, Subcutaneous, ONCE, 1 dose, On Sat08/15/22 at 0815, For use in Interventional Radiology (IR) only for procedure with direct provider supervision and verbal order., Angio/IR (Intra-Procedure), Routine 0747 (Given - Provider: Yanira Tran MD) LORazepam (Ativan) tablet 0.5 mg (COMPLETED) 0.5 mg, Oral, ONCE, 1 dose, On Sat08/16/22 at 0130, Routine 0105 (Given - Provider: Starla Warner RN) magnesium sulfate 2 g in sterile water 50 mL infusion (COMPLETED) 2 g, Intravenous, ONCE, 1 dose, On Sat08/17/22 at 0845, Administer over 120 Minutes 0825 (New Bag - Provider: Faye Sahu RN)1025 (Stopped - Provider: Faye Sahu RN) pantoprazole EC (Protonix) tablet 40 mg 40 mg, Oral, 2 TIMES DAILY, First dose on Sat08/14/22 at 2100, Until Discontinued, DO NOT CRUSH OR OPEN 0900 (Hold - Provider: Marisa Pascual RN - Reason: Per Order - Comment: per Fang- hold meds)1148 (NOV Hold - Provider: Admin Adt - Reason: Transfer to a Procedural area)1354 (NOV Unhold - Provider: Admin Adt)2100 (Not Given - Provider: Starla Warner RN - Reason: NPO - Comment: NPO - HOLD MEDS) 0931 (Given - Provider: Denise Blas RN)1411 (NOV Hold - Provider: Admin Adt - Reason: Transfer to a Procedural area)1552 (NOV Unhold - Provider: Admin Adt)2107 (Given - Provider: Denzel Arboleda RN) 0824 (Given - Provider: Faye Sahu RN) polyethylene glycoL (GoLYTELY) BOWEL PREP powder for solution JUG (236g diluted to 4000 mL) 1,000 mL (COMPLETED) 1,000 mL, Oral, ONCE, 1 dose, On Sat08/16/22 at 0700, This package contains polyethylene glycol 236 g to be dissolved in 4000 mL., Routine 07 (Given - Provider: Starla Warner RN) polyethylene glycoL (GoLYTELY) BOWEL PREP powder for solution JUG (236g diluted to 4000 mL) 4,000 mL (COMPLETED) 4,000 mL, Oral, ONCE, 1 dose, On Sat08/15/22 at 1830, This package contains polyethylene glycol 236 g to be dissolved in 4000 mL., Routine 182 (Given - Provider: Marisa Pascual RN) potassium chloride 10 mEq in sterile water 100 mL infusion (COMPLETED) 10 mEq, Intravenous, EVERY 2 HOURS, 4 doses, First dose on Sat08/16/22 at 0345, Last dose on Sat08/16/22 at 0945, Administer over 60 Minutes, Warning Vesicant/Irritant Medication 0344 (New Bag - Provider: Starla Warner RN)0444 (Stopped - Provider: Starla Warner RN)0450 (New Bag - Provider: Starla Warner RN)0550 (Stopped - Provider: Starla Warner RN)0740 (New Bag - Provider: Starla Warner RN)0840 (Stopped - Provider: Denise Blas RN)0937 (New Bag - Provider: Denise Blas RN)1037 (Stopped - Provider: Denise Blas RN) potassium chloride ER (K-Dur/Klor-Con) tablet 40 mEq (COMPLETED) 40 mEq, Oral, EVERY 4 HOURS, 2 doses, First dose on Sat08/16/22 at 1715, Last dose on Sat08/16/22 at 2115, Routine 1645 (Given - Provider: Denise Blas RN)210 (Given - Provider: Denzel Arboleda RN) potassium chloride ER (K-Dur/Klor-Con) tablet 40 mEq (COMPLETED) 40 mEq, Oral, ONCE, 1 dose, On Sat08/17/22 at 0845, Routine 0825 (Given - Provider: Faye Sahu, NUZHAT) predniSONE (Deltasone) tablet 5 mg 5 mg, Oral, DAILY, First dose on Sat08/15/22 at 0900, Until Discontinued, Routine 0900 (Hold - Provider: Marisa Pascual RN - Reason: Per MD Order - Comment: per MD [facility] meds)1148 ([facility] Hold - Provider: Admin Adt - Reason: Transfer to a Procedural area)1354 ([facility] Unhold - Provider: Admin Adt) 0931 (Given - Provider: Denise Blas RN)1411 ([facility] Hold - Provider: Admin Adt - Reason: Transfer to a Procedural area)1552 ([facility] Unhold - Provider: Admin Adt) 0824 (Given - Provider: Faye Sahu RN) sodium chloride 0.9 % (flush) (BD PosiFlush Normal Saline 0.9) flush 5 mL 5 mL, Intravenous, 2 TIMES DAILY, First dose on Sat08/14/22 at 2100, Until Discontinued, Routine 0900 (Due)1148 ([facility] Hold - Provider: Admin Adt - Reason: Transfer to a Procedural area)1354 ([facility] Unhold - Provider: Admin Adt)2100 (Given - Provider: Starla Warner RN) 0913 (Given - Provider: Denise Blas RN)1411 ([facility] Hold - Provider: Admin Adt - Reason: Transfer to a Procedural area)1552 ([facility] Unhold - Provider: Admin Adt)2107 (Given - Provider: Denzel Arboleda RN) 0825 (Given - Provider: Faye Sahu RN) tamsulosin (Flomax) capsule 0.4 mg 0.4 mg, Oral, NIGHTLY, First dose on Sat08/14/22 at 2100, Until Discontinued, DO NOT CRUSH OR OPEN, Routine 1148 (NOV Hold - Provider: Admin Adt - Reason: Transfer to a Procedural area)1354 (NOV Unhold - Provider: Admin Adt)2100 (Not Given - Provider: Starla Warner RN - Reason: NPO - Comment: NPO - HOLD MEDS) 1411 (NOV Hold - Provider: Admin Adt - Reason: Transfer to a Procedural area)1552 (NOV Unhold - Provider: Admin Adt)2107 (Given - Provider: Denzel Arboleda RN) Continuous Medication Order 08/15/2022 08/16/2022 08/17/2022 lactated ringers infusion (CANCELED) 100 mL/hr, Intravenous, CONTINUOUS, Starting on Yudi 08/16/22 at 1430, Until Yudi 08/16/22 at 1552, Endoscopy (Day of Procedure) 1440 (New Bag - Provider: Neris Winn CRNA)1552 (Stopped - Provider: Denise Blas RN) PRN Medication Order 08/15/2022 08/16/2022 08/17/2022 fentaNYL (pf) (50 mcg/mL) multi-dose injection 25-50 mcg (CANCELED) 25-50 mcg, Intravenous, EVERY 3 MIN PRN, Starting on Sat08/15/22 at 0728, Until Sat08/15/22 at 1010, Pain, per unit protocol, For use in Interventional Radiology (IR) only for procedural sedation with direct provider supervision and verbal order. - Start dose: 50 mcg (reduce dose to 25 mcg if history of sedation sensitivity). - Titration dose: 25-50 mcg IV, (based on patient response) every 3 minutes PRN to maintain procedural pain less than 2 per Pain Scale. Maximum dose: 50 mcg/dose, 250 mcg/hour, Angio/IR (Intra-Procedure), Routine 0744 (Given - Provider: Sintia Carpio, NUZHAT)0755 (Given - Provider: Sintia Carpio RN)0800 (Given - Provider: Sintia Carpio RN) iohexoL (Omnipaque) (350 mg/mL) solution 0-200 mL (COMPLETED) 0-200 mL, Intravenous, ONCE PRN, 1 dose, Starting on Sat08/15/22 at 0127, Until Sat08/15/22 at 0139, Per Protocol, Warning Vesicant/Irritant Medication , Radiology Contrast, Routine 0139 (Given - Provider: Addy Rodriguez) iohexoL (Omnipaque) (350 mg/mL) solution 150 mL (COMPLETED) 150 mL, Intra-arterial, ONCE PRN, 1 dose, Starting on Sat08/15/22 at 0850, Until Sat08/15/22 at 0851, Per Protocol, Warning Vesicant/Irritant Medication , Angio/IR (Intra-Procedure), Routine 0851 (Given - Provider: Loi Espino V) lidocaine (Xylocaine) 1% (10 mg/mL) injection 3 mg 3 mg (0.3 mL), Subcutaneous, ONCE PRN, 1 dose, Starting on Sat08/14/22 at 1622, Until Sat08/17/22 at 1948, for discomfort with PIV insertion, Routine 1148 ([facility] Hold - Provider: Admin Adt - Reason: Transfer to a Procedural area)1354 ([facility] Unhold - Provider: Admin Adt) 1411 ([facility] Hold - Provider: Admin Adt - Reason: Transfer to a Procedural area)1552 ([facility] Unhold - Provider: Admin Adt) LORazepam (Ativan) tablet 0.5 mg (COMPLETED) 0.5 mg, Oral, EVERY 6 HOURS PRN, 2 doses, Starting on Sat08/15/22 at 2204, Until Sat08/16/22 at 0451, Nausea, Routine 2230 (Given - Provider: Tori Foreman RN) 0451 (Given - Provider: Starla Warner RN) melatonin tablet 3 mg 3 mg, Oral, NIGHTLY PRN, Starting on Sat08/14/22 at 1622, Until Sat08/17/22 at 1948, Sleep, Routine 1148 ([facility] Hold - Provider: Admin Adt - Reason: Transfer to a Procedural area)1354 ([facility] Unhold - Provider: Admin Adt) 1411 ([facility] Hold - Provider: Admin Adt - Reason: Transfer to a Procedural area)1552 ([facility] Unhold - Provider: Admin Adt) midazolam (Versed) (1 mg/mL) injection 0.5-1 mg (CANCELED) 0.5-1 mg, Intravenous, EVERY 3 MIN PRN, Starting on Sat08/15/22 at 0728, Until Sat08/15/22 at 1010, Sedation, For use in Interventional Radiology (IR) only for procedural sedation with direct provider supervision and verbal order. - Start dose: 1 mg (Reduce dose to 0.5 mg if history of sedation sensitivity). - Titration dose: 0.5 mg - 1 mg (based on patient response) every 3 minutes PRN to obtain RASS score of -3. Maximum dose: 1 mg/dose, 5 mg/hour., Angio/IR (Intra-Procedure), Routine 0744 (Given - Provider: Sintia Carpio, RN)0755 (Given - Provider: Sintia Carpio, RN)0800 (Given - Provider: Sintia Carpio, RN) ondansetron (pf) (Zofran) (2 mg/mL) injection 8 mg (CANCELED) 8 mg, Intravenous, EVERY 8 HOURS PRN, Starting on Sat08/14/22 at 1622, Until Sat08/16/22 at 0821, Nausea 1148 ([facility] Hold - Provider: Admin Adt - Reason: Transfer to a Procedural area)1354 ([facility] Unhold - Provider: Admin Adt)1938 (Given - Provider: Marisa Pascual RN) Oral Chemotherapy (Inpatient Use Only) Oral 1148 ([facility] Hold - Provider: Admin Adt - Reason: Transfer to a Procedural area)1354 ([facility] Unhold - Provider: Admin Adt) 1411 ([facility] Hold - Provider: Admin Adt - Reason: Transfer to a Procedural area)1552 ([facility] Unhold - Provider: Admin Adt) polyethylene glycoL (GoLYTELY) BOWEL PREP powder for solution JUG (236g diluted to 4000 mL) 2,000 mL 2,000 mL, Oral, ONCE PRN, 1 dose, Starting on Sat08/15/22 at 1800, Until Sat08/17/22 at 1948, If not clear see Admin Inst:, A patient is considered clear and ready for the procedure only if the rectal effluent is clear as water. If not, up to an additional 2 Liters of PEG solution may be given within the timeframe above. Finish the first 2L by 8pm. If need to give additional, finish by 1am. This package contains polyethylene glycol 236 g to be dissolved in 4000 mL., Routine 1411 ([facility] Hold - Provider: Admin Adt - Reason: Transfer to a Procedural area)1552 ([facility] Unhold - Provider: Admin Adt) prochlorperazine (Compazine) (5 mg/mL) injection 10 mg 10 mg, Intravenous, EVERY 6 HOURS PRN, Starting on Yudi 08/16/22 at 0821, Until Sat08/17/22 at 1948, Nausea, Vomiting, Routine 0931 (Given - Provider: Denise Blas RN)1411 ([facility] Hold - Provider: Admin Adt - Reason: Transfer to a Procedural area)1552 ([facility] Unhold - Provider: Admin Adt) sodium chloride 0.9 % (flush) (BD PosiFlush Normal Saline 0.9) flush 5-20 mL 5-20 mL, Intravenous, EVERY 1 MIN PRN, Starting on 08/14/22 at 1622, Until Sat08/17/22 at 1948, flush, Flush pertains to all indwelling lines. Flush per protocol found in the job aid using the link provided on this medication record., Routine 1148 ([facility] Hold - Provider: Admin Adt - Reason: Transfer to a Procedural area)1354 ([facility] Unhold - Provider: Admin Adt) 1411 ([facility] Hold - Provider: Admin Adt - Reason: Transfer to a Procedural area)1552 ([facility] Unhold - Provider: Admin Adt) zolpidem (Ambien) tablet 10 mg 10 mg, Oral, NIGHTLY PRN, Starting on 08/15/22 at 1100, Until Sat08/17/22 at 1948, Sleep, Routine 1148 ([facility] Hold - Provider: Admin Adt - Reason: Transfer to a Procedural area)1354 ([facility] Unhold - Provider: Admin Adt) 1411 ([facility] Hold - Provider: Admin Adt - Reason: Transfer to a Procedural area)1552 ([facility] Unhold - Provider: Admin Adt)2111 (Given - Provider: Denzel Arboleda, NUZHAT) documented in this encounter Care Teams Assembler Bonding Relationship Specialty Start Date End Date Kennedi Shaver MD [facility] [address] [place] [address] PCP - General Family Medicine 08/02/20 06/24/24 documented as of this encounter
--- OUTSIDE RECORDS SUMMARY | 2024-09-11 15:23 | XMS_ITS | Encounter Summary ---
Author [facility] [place] [address] Care Team Providers Care Senior Business Objects Developer Name Role Phone Kennedi Shaver MD Primary Care Provider [phone] Encounter Details Date Type Department Care Team (Late st Contact Info) Description 08/15/2022 Orders [place] [phone] Emani Gray MD [facility] [place] [address] Gastroesophageal reflux disease, unspecified whether esophagitis present Social History Tobacco Use Types Packs/Day Years [...] [facility] Hospital En[place] [phone] Lizet Wilkes MD [facility] [place] [address] 09/29/2024 4:30 PM EST - 09/29/2024 5:00 PM EST Surgery [place] [phone] Lizet Wilkes MD [facility] [place] [address] EGD, UPPER GI ENDOSCOPY (WRVU 2.09) 11/09/2024 10:00 AM EST Laboratory Appointment Lab at [facility] Hematology Oncology [address] [place] [phone] 11/09/2024 11:00 AM EST Office Visit Hematology [place] [phone] Faith Caba MD [facility] [address] [place]EM[place]OLOGY [place] [address] 11/09/2024 12:00 PM EST Appointment Hematology [place] [phone] Scheduled Procedures Name Priority Associated Diagnoses Date/Ti [...] hemorrhage documented in this encounter Care Teams Senior Business Objects Developer Relationship Specialty Start Date End Date Kennedi Shaver MD [address] [place] [address] PCP - General Family Medicine 08/02/20 06/24/24 documented as of this encounter
--- OUTSIDE RECORDS SUMMARY | 2024-09-11 15:23 | XMS_ITS | Encounter Summary ---
Author Organization [facility] [place] [address] Care Team Providers Care Reexaminer Name Role Phone Kennedi Shaver MD Primary Care Provider [phone] Reason for Visit * Auth/Cert (Routine) Specialty Diagnoses / Procedures Referred By Blaine peralta Referred To Contact Diagnoses GI bleed Milton Soto MD [facility] [place] [address] [facility] Referral ID Status Reason Start Date Expiration Date Visits Re quested Visits Authorized [id number] 1 1 Encounter Details Date Type Department Care Team (Late st Contact Info) Description 08/15/2022 12:59 PM EST Anesthesia [place] [phone] Rigo Hanna DO [facility] [place] [address] Anesthesia Record Procedure Summary Procedure Name Responsible Anesthesiologist Anesthesia Start Time Anesthesia Stop Time EGD, UPPER GI ENDOSCOPY (WRVU 2.09) (Trunk) Rigo Hanna DO 08/15/22 1259 08/15/22 1321 Events Date Time Event Comment 08/15/2022 1249 1259 AN Verify 1259 Start 1259 An Start Data 1302 An Induction 1303 Anesthesia Ready 1317 an stop data 1321 Recovery or ICU Handoff Jessica ent care was transferred to the destination unit staff after review of the patient's medical history, current anesthetic/surgical status and plan, according to the Provider Handoff Checklist. 1321 Stop Meds Name Total Propofol INF 169.47 mg Lactated Ringers 150 mL * Agents Name O2 * Blood No blood administrations on file. Lines, Drains, and Airways Type Details Placement Removal Incision 08/15/22; 0748; Righ t, anterior; groin; non-laparascopic puncture; mesenteric arteriogram w/ dr wilson 08/15/22 0748 by Sintia Carpio RN NPWT 06/04/19; 1222; calf ; LDA not present upon assessment; 08/16/22; 1320 06/04/19 1222 by July Dow RN 08/16/22 1320 by Debra Esposito LNA (RETIRED) Peripheral IV Line - Single Lumen 08/14/22; median cubital vein (antecubital fossa), right; anks-mki-tgetge catheter system; 20 gauge, 1 in length; no longer indicated, removed per physician; 08/17/22; 1511 08/14/22 0000 by Mendez Burris RN 08/17/22 1511 by Faye Sahu RN (RETIRED) Peripheral IV Line - Single Lumen 08/15/22; 0050; cephalic vein (lateral side of arm), right; pmup-soq-elpfsk catheter system; Anatomical Landmarks; 18 gauge; LSRN; removed inadvertently, catheter/device intact; 08/17/22; 1047 08/15/22 0050 by Rodri Felix RN 08/17/22 1047 by Faye Sahu RN documented in this encounter Social History [...] OR Notes * Anesthesia Postprocedure Evaluation - Rigo Hanna DO - 08/15/2022 2:10 PM EST Department of Anesthesiology Post-procedure Note Patient: Chidi Carbone Procedure Summary Date: 08/15/22 Room / Location: [facility] ENDO 3 / [facility] ENDOSCOPY Anesthesia Start: 1259 Anesthesia Stop: 1321 Procedure: EGD, UPPER GI ENDOSCOPY (Trunk) Diagnosis: (anemia) Surgeons: Bubba Wallace MD Responsible Provider: Rigo Hanna DO Anesthesia Type: MAC ASA Status: 2 All Anesthesia Providers: Anesthesiologist: Rigo Hanna DO SIGNAL TECHNICIAN: Addy Angela CRNA Vitals Value Taken Time BP 147/67 08/15/22 1340 Temp Pulse Resp 18 08/15/22 1330 SpO2 97 % 08/15/22 1343 Pain Level 0 08/15/22 1330 Vitals shown include unvalidated device data. Patient Location: PACU/[facility] Level of Consciousness: Awake and Alert Pain Management: Satisfactory Analgesia PONV: None Cardiovascular Status: Hemodynamically Stable Respiratory Status: Room Air and Stable Respiratory Status Postoperative Fluid Status: Intravascular EUvolemia Possible Anesthetic Complications: NONE apparent at time of evaluation Final Primary Anesthesia Type: MAC (The anesthetic type performed was the same as planned.) Comments: * Anesthesia Preprocedure Evaluation - Rigo Hanna DO - 08/15/2022 10:54 AM EST Pre-Anesthesia Evaluation for: Chidi Carbone a 76 y.o. male. Procedure(s): EGD, UPPER GI ENDOSCOPY Patient Active Problem List Diagnosis Date Noted ??? *GI bleed 08/14/2022 ??? Hypertension 03/14/2020 ??? 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 GERD (gastroesophageal reflux disease) 11/27/2011 No past medical history on file. Past Surgical History: Procedure Laterality Date ??? PRO COLONOSCOPY, DIAGNOSTIC N/A 04/19/2015 COLONOSCOPY, DIAGNOSTIC performed by Nino Rocha MD at [facility] ENDOSCOPY ??? PRO DRESSING CHANGE UNDER ANESTHESIA N/A 06/04/2019 DRESSING CHANGE (FOR OTHER THAN RAUSCH) UNDER ANES. (WRVU 0.86) performed by Rodri Villa MD at [facility] MAIN OR ? ? PRO EDG FLEXIBLE TRANSORAL ABLATE TUMOR POLYP/LESION W/DILATION & WIRE N/A 04/19/2015 EGD, TRANSORAL; WITH ABLATION OF TUMOR(S), POLYP(S), OR OTHER LESION(S) performed by Nino Rocha MD at [facility] ENDOSCOPY ??? PRO LAP, ESOPHAGOGAST FUNDOPLASTY 03/08/2014 LAPAROSCOPIC [place]O FUNDOPLASTY performed by Surendra Garcia MD at [facility] MAIN OR ??? PRO PREP SITE TRUNK/ARM/LEG 1ST 100 SQ CM/1PCT Right 06/04/2019 SURGICAL PREP/CREATION RECIPIENT SITE, FIRST 100 SQ CM, LEGS (WRVU 3.65) performed by Rodri Villa MD at [facility] MAIN OR ? ? PRO SPLIT GRFT TRUNK, ARM, LEG <100SQCM Right 06/04/2019 SPLIT THICK SKIN GRAFT,100 SQ CM OR LESS, LEGS (WRVU 9.9) performed by Rodri Villa MD at [facility] MAIN OR ??? PRO UPPER GI ENDOSCOPY, BIOPSY 11/27/2011 UPPER GASTROINTESTINAL ENDOSCOPY,WITH BIOPSY SINGLE OR MULTIPLE performed by NINO ROCHA I at [facility] ENDOSCOPY ??? PRO UPPER GI ENDOSCOPY, BIOPSY 04/22/2012 UPPER GASTROINTESTINAL ENDOSCOPY,WITH BIOPSY SINGLE OR MULTIPLE performed by NINO ROCHA I at [facility] ENDOSCOPY ??? PRO UPPER GI ENDOSCOPY, BIOPSY 05/12/2013 UPPER GASTROINTESTINAL ENDOSCOPY,WITH BIOPSY SINGLE OR MULTIPLE performed by Nino Rocha MD at [facility] ENDOSCOPY ??? PRO UPPER GI ENDOSCOPY, BIOPSY 10/20/2013 UPPER GASTROINTESTINAL ENDOSCOPY,WITH BIOPSY SINGLE OR MULTIPLE performed by Nino Rocha MD at [facility] ENDOSCOPY ??? PRO UPPER GI ENDOSCOPY, BIOPSY N/A 06/29/2015 EGD WITH BIOPSY performed by Nino Rocha MD at [facility] ENDOSCOPY ??? UPPER GI ENDOSCOPY, EXAM 02/13/2011 UPPER GI ENDOSCOPY performed by NINO ROCHA I at [facility] ENDOSCOPY ??? UPPER GI ENDOSCOPY, EXAM 05/12/2013 UPPER GI ENDOSCOPY performed by Nino Rocha MD at [facility] ENDOSCOPY ??? UPPER GI ENDOSCOPY, EXAM N/A 04/19/2015 UPPER GI ENDOSCOPY performed by Nino Rocha MD at [facility] ENDOSCOPY ??? UPPER GI ENDOSCOPY, TUMOR ABLATN 04/22/2012 ENDOSCOPY, UPPER GI, W\ABLATION TUMOR\POLYP\LESION performed by NINO ROCHA I at [facility] ENDOSCOPY Social History Tobacco Use ??? Smoking status: Former Years: 15.00 Types: Cigarettes Quit date: 1977 Years since quittin.9 ??? Smokeless tobacco: Never Substance Use Topics ??? Alcohol use: Yes Alcohol/week: 14.0 standard drinks Types: 14 Glasses of wine per week Social History Substance and Sexual Activity Drug Use No No Known Allergies Medications: MAR and/or home medications have been reviewed. Physical Exam: Preprocedure Vitals Current as of 08/15/22 1054 BP: 127/76 Pulse: 59 Resp: 16 SpO2: 96 Temp: 37 ??C (98.6 ??F) Height: 177.8 cm (5' 10) (08/14/22) Weight: 80.7 kg (178 lb) (08/14/22) BMI: 25.54 IBW: 73 kg (160 lb 15 oz) Last edited 08/15/22 1025 by OM Currently displaying vitals information from multiple entries within 180 minutes of most recent vitals. Airway Assessment: Mallampati: II TM distance: >3 FB Neck ROM: full Cardiovascular Assessment: Rhythm: regular Rate: normal (+) murmur Pulmonary Assessment: breath sounds clear to auscultation Dental Assessment: Misc Assessment: IV access: Peripheral line Last Filed Perioperative Cognitive Screening None Anesthesia Plan: ASA 2 MAC, with a(n) intravenous induction 76 yr old male for EGD. PMH: recent hospitalization for BRBPR. PMH: prostate cancer, GERD, GIRISH- uses CPAP and htn. S/p mesenteric angiogram which was negative. No cardiopulmonary ds. However, patient has systolic murmur which he says he was unaware that he has one. He is totally asymptomatic. Denies CP, SOB, syncope or cyanosis. Patient will follow up with his primary care. CBC Lab Results Component Value Date WBC 6.0 08/15/2022 Hemoglobin 7.8 (L) 08/15/2022 Hemoglobin 7.8 (L) 08/15/2022 Hematocrit 23.4 (L) 08/15/2022 Hematocrit 23.4 (L) 08/15/2022 Platelets 187 08/15/2022 08/15/22 0618 NA 143 K 3.4* CL 112* CO2 21* BUN 16 CREATININE 0.57* GLUCOSE 109 NPO Region - Other Informed Consent: Anesthetic plan and risks discussed with patient. Plan discussed with SIGNAL TECHNICIAN and attending. Anesthesia Screening documented in this encounter Plan of Treatment Upcoming Encounters Date Type Department Care Team (Latest Contact Info) Description 09/29/2024 4:30 PM EST Hospital En[place] [phone] Lizet Wilkes MD [facility] [place] [address] 09/29/2024 4:30 PM EST - 09/29/2024 5:00 PM EST [place] [phone] Lizet Wilkes MD [facility] [place] [address] EGD, UPPER GI ENDOSCOPY (WRVU 2.09) 11/09/2024 10:00 AM EST Laboratory Appointment Lab at [facility] Hematology Oncology [address] [place] [phone] 11/09/2024 11:00 AM EST Office Visit [place] [phone] Faith Caba MD [facility] [place] [address] 11/09/2024 12:00 PM EST Appointment [place] [phone] Scheduled Procedures Name Priority Associated Diagnoses Date/Ti wa EGD, UPPER GI ENDOSCOPY (WRVU 2.09) Gastroesophageal [...] Date Dose Rate Site lactated ringers infusion Intravenous, CONTINUOUS PRN, Starting on Sat08/15/22 at 1254, Until Sat08/15/22 at 1321, Anesthesia Intra-op New Bag 08/15/2022 12:54 PM EST propofoL (Diprivan) (10 mg/mL) infusion Intravenous, CONTINUOUS PRN, Starting on Sat08/15/22 at 1302, Until Sat08/15/22 at 1321, Anesthesia Intra-op, Routine Rate/Dose Change 08/15/2022 1:11 PM EST 100 mcg/kg/min 48.42 mL/hr Rate/Dose Change 08/15/2022 1:06 PM EST 200 mcg/kg/min 96. 84 mL/hr New Bag 08/15/2022 1:02 PM EST 250 mcg/kg/min 121.05 mL /hr documented in this encounter Care Teams Reexaminer Relationship Specialty Start Date End Date Kennedi Shaver MD [address] [place] [address] PCP - General Family Medicine 08/02/20 06/24/24 documented as of this encounter
--- OUTSIDE RECORDS SUMMARY | 2024-09-11 15:23 | XMS_ITS | Encounter Summary ---
Author Organization [facility] annie [place] [id number] Care Team Providers Care Machine Scallop Cutter Name Role Phone Kennedi Shaver MD Primary Care Provider [phone] Reason for Visit * Auth/Cert (Routine) Specialty Diagnoses / Procedures Referred By Blaine t Referred To Contact Diagnoses GI bleed Milton Soto MD [facility] [place] [address] [facility] Referral ID Status Reason Start Date Expiration Date Visits Re quested Visits Authorized [id number] 1 1 Encounter Details Date Type Department Care Team (Late st Contact Info) Description 08/16/2022 2:40 PM EST Anesthesia [place] [phone] Vicky Quinn MD [facility] [place] [address] Neris Winn CRNA [facility] [place] [address] Anesthesia Record Procedure Summary Procedure Name Responsible Anesthesiologist Anesthesia Start Time Anesthesia Stop Time COLONOSCOPY, DIAGNOSTIC (WRVU 3.26) (Trunk) Vicky Quinn MD 08/16/22 1440 08/16/22 1524 Events Date Time Event Comment 08/16/2022 1433 1440 AN Verify 1440 Start 1440 An Start Data 1445 An Induction 1446 Quick Note [place], Break 1453 Anesthesia Ready 1524 an stop data 1524 Recovery or ICU Handoff Jessica ent care was transferred to the destination unit staff after review of the patient's medical history, current anesthetic/surgical status and plan, according to the Provider Handoff Checklist. 1524 Stop Meds Name Total Propofol 40 mg Propofol INF 355.08 mg lactated ringers infusion 0 mL * Agents Name O2 Air N2O O2 Auxiliary Flowmeter 1 * Blood No blood administrations on file. Lines, Drains, and Airways Type Details Placement Removal Incision 08/15/22; 0748; Righ t, anterior; groin; non-laparascopic puncture; mesenteric arteriogram w/ dr wilson 08/15/22 0748 by Sintia Carpio, RN (RETIRED) Peripheral IV Line - Single Lumen 08/14/22; median cubital vein (antecubital fossa), right; [id number] catheter system; 20 gauge, 1 in length; no longer indicated, removed per physician; 08/17/22; 1511 08/14/22 0000 by Mendez Burris RN 08/17/22 1511 by Faye Sahu RN (RETIRED) Peripheral IV Line - Single Lumen 08/15/22; 0050; cephalic vein (lateral side of arm), right; [id number] catheter system; Anatomical Landmarks; 18 gauge; LSRN; [...] OR Notes * Anesthesia Postprocedure Evaluation - Vicky Quinn MD - 08/16/2022 3:40 PM EST Department of Anesthesiology Post-procedure Note Patient: Chidi Carbone Procedure Summary Date: 08/16/22 Room / Location: [facility] ENDO 3 / [facility] ENDOSCOPY Anesthesia Start: 1440 Anesthesia Stop: 1524 Procedures: COLONOSCOPY, DIAGNOSTIC (Trunk) COLONOSCOPY; W CONTROL OF BLEEDING, ANY METHOD Diagnosis: (anemia) Surgeons: Bubba Wallace MD Responsible Provider: Vicky Quinn MD Anesthesia Type: MAC ASA Status: 2 All Anesthesia Providers: Anesthesiologist: Vicky Quinn MD BODY BUMPER: Neris Winn CRNA Vitals Value Taken Time BP 116/68 08/16/22 1530 Temp Pulse Resp SpO2 98 % 08/16/22 1539 Pain Level Vitals shown include unvalidated device data. Patient Location: PACU/[facility] Level of Consciousness: Awake and Alert Pain Management: Satisfactory Analgesia PONV: None Cardiovascular Status: At Baseline and Hemodynamically Stable Respiratory Status: At Baseline and Room Air Postoperative Fluid Status: Intravascular EUvolemia Possible Anesthetic Complications: NONE apparent at time of evaluation Final Primary Anesthesia Type: MAC (The anesthetic type performed was the same as planned.) Comments: VICKY QUINN MD * Anesthesia Preprocedure Evaluation - Vicky Quinn MD - 08/16/2022 2:30 PM EST Pre-Anesthesia Evaluation for: Chidi Carbone a 76 y.o. male. Procedure(s): COLONOSCOPY, DIAGNOSTIC Patient Active Problem List Diagnosis Date Noted ??? Acute blood loss anemia 08/16/2022 ??? *GI bleed 08/14/2022 ??? Hypertension 03/14/2020 ??? 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 GERD (gastroesophageal reflux disease) 11/27/2011 No past medical history on file. Past Surgical History: Procedure Laterality Date ??? IR ARTERIOGRAM MESENTERIC 08/15/2022 IR Arteriogram Mesenteric 08/15/2022 Santo Wilson MD [facility] INTERVENTIONL RAD ??? PRO COLONOSCOPY, DIAGNOSTIC N/A 04/19/2015 COLONOSCOPY, DIAGNOSTIC performed by Nino Rocha MD at [facility] ENDOSCOPY ??? PRO DRESSING CHANGE UNDER ANESTHESIA N/A 06/04/2019 DRESSING CHANGE (FOR OTHER THAN RAUSCH) UNDER ANES. (WRVU 0.86) performed by Rodri Villa MD at [facility] MAIN OR ? ? PRO EDG FLEXIBLE TRANSORAL ABLATE TUMOR POLYP/LESION W/DILATION & WIRE N/A 04/19/2015 EGD, TRANSORAL; WITH ABLATION OF TUMOR(S), POLYP(S), OR OTHER LESION(S) performed by Nino Rocha MD at [facility] ENDOSCOPY ??? PRO LAP, ESOPHAGOGAST FUNDOPLASTY 03/08/2014 LAPAROSCOPIC MODESTO FUNDOPLASTY performed by Surendra Garcia MD at [facility] MAIN OR ??? PRO PREP SITE TRUNK/ARM/LEG 1ST 100 SQ CM/1PCT Right 06/04/2019 SURGICAL PREP/CREATION RECIPIENT SITE, FIRST 100 SQ CM, LEGS (WRVU 3.65) performed by Rodri Villa MD at [facility] MAIN OR ? ? PRO SPLIT GRFT TRUNK, ARM, LEG <100SQCM Right 06/04/2019 SPLIT THICK SKIN GRAFT,100 SQ CM OR LESS, LEGS (WRVU 9.9) performed by Rodri Villa MD at [facility] MAIN OR ??? PRO UPPER GI ENDOSCOPY, BIOPSY 11/27/2011 UPPER GASTROINTESTINAL ENDOSCOPY,WITH BIOPSY SINGLE OR MULTIPLE performed by NINO ROCHA I at [facility] ENDOSCOPY ??? PRO UPPER GI ENDOSCOPY, BIOPSY 04/22/2012 UPPER GASTROINTESTINAL ENDOSCOPY,WITH BIOPSY SINGLE OR MULTIPLE performed by NINO ROCHA I at [facility] ENDOSCOPY ??? PRO UPPER GI ENDOSCOPY, BIOPSY 05/12/2013 UPPER GASTROINTESTINAL ENDOSCOPY,WITH BIOPSY SINGLE OR MULTIPLE performed by Nino Rocha MD at [facility] ENDOSCOPY ??? PRO UPPER GI ENDOSCOPY, BIOPSY 10/20/2013 UPPER GASTROINTESTINAL ENDOSCOPY,WITH BIOPSY SINGLE OR MULTIPLE performed by Nino Rocha MD at [facility] ENDOSCOPY ??? PRO UPPER GI ENDOSCOPY, BIOPSY N/A 06/29/2015 EGD WITH BIOPSY performed by Nino Rocha MD at [facility] ENDOSCOPY ??? PRO UPPER GI ENDOSCOPY, DIAGNOSTIC N/A 08/15/2022 EGD, UPPER GI ENDOSCOPY performed by Bubba Wallace MD at [facility] ENDOSCOPY ??? UPPER GI ENDOSCOPY, EXAM 02/13/2011 UPPER GI ENDOSCOPY performed by NINO ROCHA I at [facility] ENDOSCOPY ??? UPPER GI ENDOSCOPY, EXAM 05/12/2013 UPPER GI ENDOSCOPY performed by Nino Rocha MD at [facility] ENDOSCOPY ??? UPPER GI ENDOSCOPY, EXAM N/A 04/19/2015 UPPER GI ENDOSCOPY performed by Nino Rocha MD at [facility] ENDOSCOPY ??? UPPER GI ENDOSCOPY, TUMOR ABLATN 04/22/2012 ENDOSCOPY, UPPER GI, W\ABLATION TUMOR\POLYP\LESION performed by NINO ROCHA I at [facility] ENDOSCOPY Social History Tobacco Use ??? [...] Physical Exam: Preprocedure Vitals Current as of 08/16/22 1430 BP: 141/75 Pulse: 68 Resp: 18 SpO2: 93 Temp: 36.9 ??C (98.4 ??F) Height: 177.8 cm (5' 10) (08/16/22) Weight: 80.7 kg (178 lb) (08/16/22) BMI: 25.54 IBW: 73 kg (160 lb 15 oz) Last edited 08/16/22 1412 by KN Currently displaying vitals information from multiple entries within 180 minutes of most recent vitals. Airway Assessment: Mallampati: II TM distance: >3 FB Neck ROM: full Cardiovascular Assessment: Rhythm: regular Rate: normal Pulmonary Assessment: unlabored breathing Dental Assessment: - normal exam Misc Assessment: IV access: Peripheral line Last Filed Perioperative Cognitive Screening None Anesthesia Plan: ASA 2 MAC, with a(n) intravenous induction 76 yr old male for colo, s/p negative EGD yesterday with propofol. Has been in hospital for GIB of unclear etiology requiring blood transfusions. PMH: prostate cancer, GERD, GIRISH- uses CPAP and htn. S/p mesenteric angiogram which was negative. NPO, no issue with anesthesia. Region - Other Informed Consent: Anesthetic plan and risks discussed with patient. Plan discussed with BODY BUMPER. Anesthesia Screening documented in this encounter Plan of Treatment Upcoming Encounters Date Type Department Care Team (Latest Contact Info) Description 09/29/2024 4:30 PM EST Hospital Encounter Gastroenterology at [place] [phone] Lizet Wilkes MD [facility] [place] [address] 09/29/2024 4:30 PM EST - 09/29/2024 5:00 PM EST Surgery [place] [phone] Lizet Wilkes MD [facility] [place] [address] EGD, UPPER GI ENDOSCOPY (WRVU 2.09) 11/09/2024 10:00 AM EST Laboratory Appointment Lab at [facility] Hematology Oncology [address] [place] [phone] 11/09/2024 11:00 AM EST Office Visit Hematology and Oncology at [place] [phone] Faith Caba MD [facility] DR HEMATOLOGY [place] [address] 11/09/2024 12:00 PM EST Appointment Hematology [place] [phone] Scheduled Procedures Name Priority Associated Diagnoses Date/Ti [...] infusion 100 mL/hr, Intravenous, CONTINUOUS, Starting on Yudi 08/16/22 at 1430, Until Yudi 08/16/22 at 1552, Endoscopy (Day of Procedure) New Bag 08/16/2022 2:40 PM EST 125 mL/hr propofoL (Diprivan) (10 mg/mL) infusion Intravenous, CONTINUOUS PRN, Starting on Yudi 08/16/22 at 1445, Until Yudi 08/16/22 at 1524, Anesthesia Intra-op, Routine Rate/Dose Change 08/16/2022 2:52 PM EST 150 mcg/kg/min 72.63 mL/hr New Bag 08/16/2022 2:45 PM EST 200 mcg/kg/min 96.84 mL/ hr propofoL (Diprivan) 10 mg/mL bolus injection (Anesthesia) Intravenous, PRN, Starting on Yudi 08/16/22 at 1445, Until Yudi 08/16/22 at 1524, Anesthesia Intra-op Given 08/16/2022 2:45 PM EST 40 mg documented in this encounter Care Teams Machine Scallop Cutter Relationship Specialty Start Date End Date Kennedi Shaver MD [facility] [address] [place] [address] PCP - General Family Medicine 08/02/20 06/24/24 documented as of this encounter
--- OUTSIDE RECORDS SUMMARY | 2024-09-11 15:23 | XMS_ITS | Encounter Summary ---
Author Organization [facility] [place] [address] Care Team Providers Care Teaching Assistant Name Role Phone Kennedi Shaver MD Primary Care Provider [phone] Reason for Visit * Auth/Cert (Routine) Specialty Diagnoses / Procedures Referred By Blaine peralta Referred To Contact Diagnoses GI bleed Milton Soto MD [facility] [place] [address] [facility] Referral ID Status Reason Start Date Expiration Date Visits Re quested Visits Authorized [id number] 1 1 Encounter Details Date Type Department Care Team (Late st Contact Info) Description 08/16/2022 2:15 PM EST - 08/16/2022 3:00 PM EST Surgery [place] [id number] Bubba Wallace MD [facility] [place] [address] COLONOSCOPY, DIAGNOSTIC (WRVU 3.26) Social History Tobacco Use Types Packs/Day Years [...] Sign Reading Time Taken Comments Blood Pressure 141/75 08/16/2022 2:12 PM EST Pulse 68 08/16/2022 2:12 PM EST Temperature 36.9 ??C (98.4 ??F) 08/16/2022 11:[address] Respiratory Rate 18 08/16/2022 11:20 AM EST Oxygen Saturation 93% 08/16/2022 2:12 PM EST Inhaled Oxygen Concentration - - [...] episode later before seeking medical attention at [facility]. Patient was found to have hgb of [...] Department Center 10/16/2022 9:00 AM LABORATORY, TECH [facility] [place] [facility] 10/16/2022 10:00 AM Faith Caba MD [facility] [place] [facility] 10/16/2022 11:00 AM ACCESS ROOM [address] Date and Time Provider and Specialty Location 08/24/2022 at 10:40am Kennedi Shaver MD , PCP [address] / [facility] [id number] Your Inpatient Doctor(s) at [facility]: MD Harrison Fay MD Your Primary Care Provider: MD [address] / [facility] [id number] For questions regarding this document or issues relating to this hospitalization on the Hospital Medicine Service, please contact the on-call Hospitalist through the [facility] . DO NOT attempt to contact your care team through the nurse's station. General Instructions [facility] Interventional Radiology Post Angiography Instructions Procedure: Mesenteric [...] or hoildays, call and ask for the campus president medical office professional instructor. OR Vascular Department at until 4:45pm. After 4:45pm call and ask for the Vascular resident medical office professional instructor. 10. If you are a diabetic and [...] AM LABORATORY, TECH Hematology and Oncology at [facility] Arrive at: Retread Mold Operator Area [phone] 10/16/2022 10:00 AM Faith Caba MD Hematology and Oncology at [facility] Arrive at: Retread Mold Operator Area 3K [phone] 10/16/2022 11:00 AM ACCESS ROOM Hematology and Oncology at [facility] Arrive at: Retread Mold Operator Area 3K [phone] Provider Contact Information: MD Joshua [address] / [facility] [address] Discharge References/Attachments: Discharge References/Attachments None documented in this encounter Discharge Instructions * Discharge Instructions* Sintia Carpio RN - 08/15/2022 7:52 AM EST [facility] Interventional Radiology Post Angiography Instructions Procedure: Mesenteric [...] or hoildays, call and ask for the campus president medical office professional instructor. OR Vascular Department at until 4:45pm. After 4:45pm call [phone] and ask for the Vascular resident medical office professional instructor. 10. If you are a diabetic and [...] Department Center 10/16/2022 9:00 AM LABORATORY, TECH [facility] [place]F [facility]K [facility] 10/16/2022 10:00 AM Faith Caba MD [facility] [place]EM ONC [facility] 10/16/2022 11:00 AM ACCESS ROOM [facility]K [facility] Date and Time Provider and Specialty Location 08/24/2022 at 10:40am Kennedi Shaver MD , PCP [address] / [facility] [address] Your Inpatient Doctor(s) at [facility]: MD Harrison Fay MD Your Primary Care Provider: MD Joshua [address] / [facility] [address] For questions regarding this document or issues relating to this hospitalization on the Hospital Medicine Service, please contact the on-call Hospitalist through the [facility] . DO NOT attempt to contact your [...] spent <30 minutes (Day of Discharge Code 91657) involved in the final examination of the [...] call with further questions and concerns. Olesya CHOIC Interventional Radiology IR Provider #[id number] * Systrom, Emani Pillai MD - 08/17/2022 6:46 AM EST Images [...] IR Arteriogram Mesenteric 08/15/2022 Santo Duarte MD [facility] INTERVENTIONL RAD ??? PRO COLONOSCOPY, DIAGNOSTIC N/A 04/19/2015 COLONOSCOPY, DIAGNOSTIC performed by Paula Rocha MD at [facility] ENDOSCOPY ??? PRO DRESSING CHANGE UNDER ANESTHESIA N/A 06/04/2019 DRESSING CHANGE (FOR OTHER THAN RAUSCH) UNDER ANES. (WRVU 0.86) performed by Rodri Villa MD at [facility] MAIN OR ? ? PRO EDG FLEXIBLE TRANSORAL ABLATE TUMOR POLYP/LESION W/DILATION & WIRE N/A 04/19/2015 EGD, TRANSORAL; WITH ABLATION OF TUMOR(S), POLYP(S), OR OTHER LESION(S) performed by Paula Rocha MD at [facility] ENDOSCOPY ??? PRO LAP, ESOPHAGOGAST FUNDOPLASTY 03/08/2014 LAPAROSCOPIC MODESTO FUNDOPLASTY performed by Surendra Garcia MD at [facility] MAIN OR ??? PRO PREP SITE TRUNK/ARM/LEG 1ST 100 SQ CM/1PCT Right 06/04/2019 SURGICAL PREP/CREATION RECIPIENT SITE, FIRST 100 SQ CM, LEGS (WRVU 3.65) performed by Rodri Villa MD at [facility] MAIN OR ? ? PRO SPLIT GRFT TRUNK, ARM, LEG <100SQCM Right 06/04/2019 SPLIT THICK SKIN GRAFT,100 SQ CM OR LESS, LEGS (WRVU 9.9) performed by Rodri Villa MD at [facility] MAIN OR ??? PRO UPPER GI ENDOSCOPY, BIOPSY 11/27/2011 UPPER GASTROINTESTINAL ENDOSCOPY,WITH BIOPSY SINGLE OR MULTIPLE performed by PAULA ROCHA I at [facility] ENDOSCOPY ??? PRO UPPER GI ENDOSCOPY, BIOPSY 04/22/2012 UPPER GASTROINTESTINAL ENDOSCOPY,WITH BIOPSY SINGLE OR MULTIPLE performed by PAULA ROCHA I at [facility] ENDOSCOPY ??? PRO UPPER GI ENDOSCOPY, BIOPSY 05/12/2013 UPPER GASTROINTESTINAL ENDOSCOPY,WITH BIOPSY SINGLE OR MULTIPLE performed by Paula Rocha MD at [facility] ENDOSCOPY ??? PRO UPPER GI ENDOSCOPY, BIOPSY 10/20/2013 UPPER GASTROINTESTINAL ENDOSCOPY,WITH BIOPSY SINGLE OR MULTIPLE performed by Paula Rocha MD at [facility] ENDOSCOPY ??? PRO UPPER GI ENDOSCOPY, BIOPSY N/A 06/29/2015 EGD WITH BIOPSY performed by Paula Rocha MD at [facility] ENDOSCOPY ??? PRO UPPER GI ENDOSCOPY, DIAGNOSTIC N/A 08/15/2022 EGD, UPPER GI ENDOSCOPY performed by Bubba Wallace MD at [facility] ENDOSCOPY ??? UPPER GI ENDOSCOPY, EXAM 02/13/2011 UPPER GI ENDOSCOPY performed by PAULA ROCHA I at [facility] ENDOSCOPY ??? UPPER GI ENDOSCOPY, EXAM 05/12/2013 UPPER GI ENDOSCOPY performed by Paula Rocha MD at [facility] ENDOSCOPY ??? UPPER GI ENDOSCOPY, EXAM N/A 04/19/2015 UPPER GI ENDOSCOPY performed by Paula Rocha MD at [facility] ENDOSCOPY ??? UPPER GI ENDOSCOPY, TUMOR ABLATN 04/22/2012 ENDOSCOPY, UPPER GI, W\ABLATION TUMOR\POLYP\LESION performed by PAULA ROCHA I at [facility] ENDOSCOPY SOCIAL HX: Social History Socioeconomic History [...] [16-18] SpO2 SpO2: [90 %-100 %] 08/16 07 - 08/17 0700 In: - Out: 1800 [...] personally reviewed in eDH CBC: Recent Labs 08/17/22 0122 08/16/22 1755 [...] who have questions please contact the health career technical supervisor that requested your imaging first. Electronically signed by: Santo Duarte MD, [facility] ([phone]), at 08/15/2022 4:[address] Abdomen & [...] who have questions please contact the health career technical supervisor that requested your imaging first. Electronically signed by: Tr Rivera MD, 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 Fall precautions [...] in the last 7068 hours. 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 Olesya CHOIC Interventional Radiology IR Provider #[id number] * Systrom, Emani Pillai MD - 08/16/2022 6:09 AM EST Images [...] IR Arteriogram Mesenteric 08/15/2022 Santo Duarte MD [facility] INTERVENTIONL RAD ??? PRO COLONOSCOPY, DIAGNOSTIC N/A 04/19/2015 COLONOSCOPY, DIAGNOSTIC performed by Paula Rocha MD at [facility] ENDOSCOPY ??? PRO DRESSING CHANGE UNDER ANESTHESIA N/A 06/04/2019 DRESSING CHANGE (FOR OTHER THAN RAUSCH) UNDER ANES. (WRVU 0.86) performed by Rodri Villa MD at [facility] MAIN OR ? ? PRO EDG FLEXIBLE TRANSORAL ABLATE TUMOR POLYP/LESION W/DILATION & WIRE N/A 04/19/2015 EGD, TRANSORAL; WITH ABLATION OF TUMOR(S), POLYP(S), OR OTHER LESION(S) performed by Paula Rocha MD at [facility] ENDOSCOPY ??? PRO LAP, ESOPHAGOGAST FUNDOPLASTY 03/08/2014 LAPAROSCOPIC MODESTO FUNDOPLASTY performed by Surendra Garcia MD at [facility] MAIN OR ??? PRO PREP SITE TRUNK/ARM/LEG 1ST 100 SQ CM/1PCT Right 06/04/2019 SURGICAL PREP/CREATION RECIPIENT SITE, FIRST 100 SQ CM, LEGS (WRVU 3.65) performed by Rodri Villa MD at [facility] MAIN OR ? ? PRO SPLIT GRFT TRUNK, ARM, LEG <100SQCM Right 06/04/2019 SPLIT THICK SKIN GRAFT,100 SQ CM OR LESS, LEGS (WRVU 9.9) performed by Rodri Villa MD at [facility] MAIN OR ??? PRO UPPER GI ENDOSCOPY, BIOPSY 11/27/2011 UPPER GASTROINTESTINAL ENDOSCOPY,WITH BIOPSY SINGLE OR MULTIPLE performed by PAULA ROCHA I at [facility] ENDOSCOPY ??? PRO UPPER GI ENDOSCOPY, BIOPSY 04/22/2012 UPPER GASTROINTESTINAL ENDOSCOPY,WITH BIOPSY SINGLE OR MULTIPLE performed by PAULA ORCHA I at [facility] ENDOSCOPY ??? PRO UPPER GI ENDOSCOPY, BIOPSY 05/12/2013 UPPER GASTROINTESTINAL ENDOSCOPY,WITH BIOPSY SINGLE OR MULTIPLE performed by Paula Rocha MD at [facility] ENDOSCOPY ??? PRO UPPER GI ENDOSCOPY, BIOPSY 10/20/2013 UPPER GASTROINTESTINAL ENDOSCOPY,WITH BIOPSY SINGLE OR MULTIPLE performed by Paula Rocha MD at [facility] ENDOSCOPY ??? PRO UPPER GI ENDOSCOPY, BIOPSY N/A 06/29/2015 EGD WITH BIOPSY performed by Paula Rocha MD at [facility] ENDOSCOPY ??? UPPER GI ENDOSCOPY, EXAM 02/13/2011 UPPER GI ENDOSCOPY performed by PAULA ROCHA I at [facility] ENDOSCOPY ??? UPPER GI ENDOSCOPY, EXAM 05/12/2013 UPPER GI ENDOSCOPY performed by Paula Rocha MD at [facility] ENDOSCOPY ??? UPPER GI ENDOSCOPY, EXAM N/A 04/19/2015 UPPER GI ENDOSCOPY performed by Paula Rocha MD at [facility] ENDOSCOPY ??? UPPER GI ENDOSCOPY, TUMOR ABLATN 04/22/2012 ENDOSCOPY, UPPER GI, W\ABLATION TUMOR\POLYP\LESION performed by PAULA ROCHA I at [facility] ENDOSCOPY SOCIAL HX: Social History Socioeconomic History [...] personally reviewed in eDH CBC: Recent Labs 08/16/22 0142 08/15/22 1807 [...] who have questions please contact the health career technical supervisor that requested your imaging first. Electronically signed by: Santo Duarte MD, [facility] ([phone]), at 08/15/2022 4:[address] Abdomen & [...] who have questions please contact the health career technical supervisor that requested your imaging first. Electronically signed by: Tr Rivera MD, [facility] ([phone]), at 08/15/2022 7:44 AM ENDOSCOPY: Reports and images personally reviewed in eDH 03/2015 Colonoscopy: Impression: ?- The examined portion [...] below: I met with Mr Carbone in follow up who was eating breakfast without further overt bleeding. I agree with he plan as outlined by DR Isaac Wallace MD * Starla Warner RN - 08/15/2022 9:25 PM EST Pt unable to tolerate bowel prep after 1x PRN IV nausea med given. notified. Pt unable to tolerate prep again. [...] given bowel prep- dry heaving and nauseated. notified and ordered IV Zofran to be [...] ADL's Surveillance [continuous indirect monitoring]: Amena Stevenson Rounding, Nurse Knowledge Exchange * Martinez prado - 08/15/2022 2:50 PM EST Pivot End Polisher Encounter Note Patient Name: Chidi Carbone : [id number] MR#: [id number] Admit Date: 08/14/2022 11:40 AM Hospital Day 1 day Narrative:Visited to introduce and assess acceptance of Pivot End Polisher services. Assessment: Patient was awake, alert, oriented and in bed. Patient coping positively with stresses of illness/hospitalization at this time. Patient says that he is hoping to get better and has familycare and support and seems to be thankful. Intervention and Outcome:Provided emotional, spiritual support and listening presence. Pivot End Polisher services accepted. Conversation to build trusting relationship. Provided pastoral presence. Provided spiritual guidance. Follow-up: yes Time in Direct Care:10 Mins Martinez Galaviz 08/15/2022 * Sintia Carpio RN - 08/15/2022 6:31 AM EST ANGIO NURSING DATABASE Name: Chidi Carbone Date of : 1945 AGE: 76 y.o. Address: [address] [address] (home) Mobile: Telephone Information: Referring Provider: No [...] we will continue transfusing him if needed. 5- post-transfusion H&H 6.9, another unit of blood [...] in the last 7068 hours. Invalid input(s): [id number] No results for input(s): HA1C in the [...] associated drop in Hgb. Prep was stopped 03008/15. Patient Hgb 0050 6.5 and transfused. Patient [...] NPO other than prep/meds with sips. [place], patient should be strict NPO. - Night float to please check on prep at 1am and continue prep until clear Outpatient: #Esophagitis 2 mo outpatient EGD f/u # PPx: - GI: Protonix 40 mg BID - Diet: NPO - Lines/Tubes: - Dispo: pending - Alternative Medical Decision Maker: and daughter - Code Status: Full code Jacy Jordan MD Internal Medicine, PGY1 M2 Hospital Medicine Service Attending Documentation I certify [...] DIAGNOSTIC performed by Paula Rocha MD at [facility] ENDOSCOPY ??? PRO DRESSING CHANGE UNDER ANESTHESIA N/A 06/04/2019 DRESSING CHANGE (FOR OTHER THAN RAUSCH) UNDER ANES. (WRVU 0.86) performed by Rodri Villa MD at [facility] MAIN OR ? ? PRO EDG FLEXIBLE TRANSORAL ABLATE TUMOR POLYP/LESION W/DILATION & WIRE N/A 04/19/2015 EGD, TRANSORAL; WITH ABLATION OF TUMOR(S), POLYP(S), OR OTHER LESION(S) performed by Paula Rocha MD at [facility] ENDOSCOPY ??? PRO LAP, ESOPHAGOGAST FUNDOPLASTY 03/08/2014 LAPAROSCOPIC MODESTO FUNDOPLASTY performed by Surendra Garcia MD at [facility] MAIN OR ??? PRO PREP SITE TRUNK/ARM/LEG 1ST 100 SQ CM/1PCT Right 06/04/2019 SURGICAL PREP/CREATION RECIPIENT SITE, FIRST 100 SQ CM, LEGS (WRVU 3.65) performed by Rodri Villa MD at [facility] MAIN OR ? ? PRO SPLIT GRFT TRUNK, ARM, LEG <100SQCM Right 06/04/2019 SPLIT THICK SKIN GRAFT,100 SQ CM OR LESS, LEGS (WRVU 9.9) performed by Rodri Villa MD at [facility] MAIN OR ??? PRO UPPER GI ENDOSCOPY, BIOPSY 11/27/2011 UPPER GASTROINTESTINAL ENDOSCOPY,WITH BIOPSY SINGLE OR MULTIPLE performed by PAULA ROCHA I at [facility] ENDOSCOPY ??? PRO UPPER GI ENDOSCOPY, BIOPSY 04/22/2012 UPPER GASTROINTESTINAL ENDOSCOPY,WITH BIOPSY SINGLE OR MULTIPLE performed by PAULA ROCHA I at [facility] ENDOSCOPY ??? PRO UPPER GI ENDOSCOPY, BIOPSY 05/12/2013 UPPER GASTROINTESTINAL ENDOSCOPY,WITH BIOPSY SINGLE OR MULTIPLE performed by Paula Rocha MD at [facility] ENDOSCOPY ??? PRO UPPER GI ENDOSCOPY, BIOPSY 10/20/2013 UPPER GASTROINTESTINAL ENDOSCOPY,WITH BIOPSY SINGLE OR MULTIPLE performed by Paula Rocha MD at [facility] ENDOSCOPY ??? PRO UPPER GI ENDOSCOPY, BIOPSY N/A 06/29/2015 EGD WITH BIOPSY performed by Paula Rocha MD at [facility] ENDOSCOPY ??? UPPER GI ENDOSCOPY, EXAM 02/13/2011 UPPER GI ENDOSCOPY performed by PAULA ROCHA I at [facility] ENDOSCOPY ??? UPPER GI ENDOSCOPY, EXAM 05/12/2013 UPPER GI ENDOSCOPY performed by Paula Rocha MD at [facility] ENDOSCOPY ??? UPPER GI ENDOSCOPY, EXAM N/A 04/19/2015 UPPER GI ENDOSCOPY performed by Paula Rocha MD at [facility] ENDOSCOPY ??? UPPER GI ENDOSCOPY, TUMOR ABLATN 04/22/2012 ENDOSCOPY, UPPER GI, W\ABLATION TUMOR\POLYP\LESION performed by PAULA ROCHA I at [facility] ENDOSCOPY SOCIAL HX: Social History Socioeconomic History [...] appropriate affect Labs: Labs personally reviewed in [facility] CBC: Recent Labs 08/15/22 0050 08/14/22 2213 [...] episode [facility] Patient was found to have hgb of [...] any further questions or concerns pager # [phone] Rodri Felix RN 12:22 AM August 15, [...] DIAGNOSTIC performed by Paula Rocha MD at [facility] ENDOSCOPY ??? PRO DRESSING CHANGE UNDER ANESTHESIA N/A 06/04/2019 DRESSING CHANGE (FOR OTHER THAN RAUSCH) UNDER ANES. (WRVU 0.86) performed by Rodri Villa MD at [facility] MAIN OR ? ? PRO EDG FLEXIBLE TRANSORAL ABLATE TUMOR POLYP/LESION W/DILATION & WIRE N/A 04/19/2015 EGD, TRANSORAL; WITH ABLATION OF TUMOR(S), POLYP(S), OR OTHER LESION(S) performed by Paula Rocha MD at [facility] ENDOSCOPY ??? PRO LAP, ESOPHAGOGAST FUNDOPLASTY 03/08/2014 LAPAROSCOPIC MODESTO FUNDOPLASTY performed by Surendra Garcia MD at [facility] MAIN OR ??? PRO PREP SITE TRUNK/ARM/LEG 1ST 100 SQ CM/1PCT Right 06/04/2019 SURGICAL PREP/CREATION RECIPIENT SITE, FIRST 100 SQ CM, LEGS (WRVU 3.65) performed by Rodri Villa MD at [facility] MAIN OR ? ? PRO SPLIT GRFT TRUNK, ARM, LEG <100SQCM Right 06/04/2019 SPLIT THICK SKIN GRAFT,100 SQ CM OR LESS, LEGS (WRVU 9.9) performed by Rodri Villa MD at [facility] MAIN OR ??? PRO UPPER GI ENDOSCOPY, BIOPSY 11/27/2011 UPPER GASTROINTESTINAL ENDOSCOPY,WITH BIOPSY SINGLE OR MULTIPLE performed by PAULA ROCHA I at [facility] ENDOSCOPY ??? PRO UPPER GI ENDOSCOPY, BIOPSY 04/22/2012 UPPER GASTROINTESTINAL ENDOSCOPY,WITH BIOPSY SINGLE OR MULTIPLE performed by PAULA ROCHA I at [facility] ENDOSCOPY ??? PRO UPPER GI ENDOSCOPY, BIOPSY 05/12/2013 UPPER GASTROINTESTINAL ENDOSCOPY,WITH BIOPSY SINGLE OR MULTIPLE performed by Paula Rocha MD at [facility] ENDOSCOPY ??? PRO UPPER GI ENDOSCOPY, BIOPSY 10/20/2013 UPPER GASTROINTESTINAL ENDOSCOPY,WITH BIOPSY SINGLE OR MULTIPLE performed by Paula Rocha MD at [facility] ENDOSCOPY ??? PRO UPPER GI ENDOSCOPY, BIOPSY N/A 06/29/2015 EGD WITH BIOPSY performed by Paula Rocha MD at [facility] ENDOSCOPY ??? UPPER GI ENDOSCOPY, EXAM 02/13/2011 UPPER GI ENDOSCOPY performed by PAULA ROCHA I at [facility] ENDOSCOPY ??? UPPER GI ENDOSCOPY, EXAM 05/12/2013 UPPER GI ENDOSCOPY performed by Paula Rocha MD at [facility] ENDOSCOPY ??? UPPER GI ENDOSCOPY, EXAM N/A 04/19/2015 UPPER GI ENDOSCOPY performed by Paula Rocha MD at [facility] ENDOSCOPY ??? UPPER GI ENDOSCOPY, TUMOR ABLATN 04/22/2012 ENDOSCOPY, UPPER GI, W\ABLATION TUMOR\POLYP\LESION performed by PAULA ROCHA I at [facility] ENDOSCOPY Medications: No current facility-administered medications on [...] As for recent hx, he presented to [place] on 08/09 with rectal bleeding and abdominal pain. At thattime, he felt light-headed, weak, and had 1 episode of filling toilet bowl with blood. He had sharpLLQ pain associated with this. Hgb was 10 on arrival to [place], dropped to 8 during hospitalization - he [...] DIAGNOSTIC performed by Paula Rocha MD at [facility] ENDOSCOPY ??? PRO DRESSING CHANGE UNDER ANESTHESIA N/A 06/04/2019 DRESSING CHANGE (FOR OTHER THAN RAUSCH) UNDER ANES. (WRVU 0.86) performed by Rodri Villa MD at [facility] MAIN OR ? ? PRO EDG FLEXIBLE TRANSORAL ABLATE TUMOR POLYP/LESION W/DILATION & WIRE N/A 04/19/2015 EGD, TRANSORAL; WITH ABLATION OF TUMOR(S), POLYP(S), OR OTHER LESION(S) performed by Paula Rocha MD at [facility] ENDOSCOPY ??? PRO LAP, ESOPHAGOGAST FUNDOPLASTY 03/08/2014 LAPAROSCOPIC MODESTO FUNDOPLASTY performed by Surendra Garcia MD at [facility] MAIN OR ??? PRO PREP SITE TRUNK/ARM/LEG 1ST 100 SQ CM/1PCT Right 06/04/2019 SURGICAL PREP/CREATION RECIPIENT SITE, FIRST 100 SQ CM, LEGS (WRVU 3.65) performed by Rodri Villa MD at [facility] MAIN OR ? ? PRO SPLIT GRFT TRUNK, ARM, LEG <100SQCM Right 06/04/2019 SPLIT THICK SKIN GRAFT,100 SQ CM OR LESS, LEGS (WRVU 9.9) performed by Rodri Villa MD at [facility] MAIN OR ??? PRO UPPER GI ENDOSCOPY, BIOPSY 11/27/2011 UPPER GASTROINTESTINAL ENDOSCOPY,WITH BIOPSY SINGLE OR MULTIPLE performed by PAULA ROCHA I at [facility] END[facility]COPY ??? PRO UPPER GI ENDOSCOPY, BIOPSY 04/22/2012 UPPER GASTROINTESTINAL ENDOSCOPY,WITH BIOPSY SINGLE OR MULTIPLE performed by PAULA ROCHA I at [facility]COPY ??? PRO UPPER GI ENDOSCOPY, BIOPSY 05/12/2013 UPPER GASTROINTESTINAL ENDOSCOPY,WITH BIOPSY SINGLE OR MULTIPLE performed by Paula Rocha MD at [facility] END[facility]COPY ??? PRO UPPER GI ENDOSCOPY, BIOPSY 10/20/2013 UPPER GASTROINTESTINAL ENDOSCOPY,WITH BIOPSY SINGLE OR MULTIPLE performed by Paula Rocha MD at [facility] END[facility]COPY ??? PRO UPPER GI ENDOSCOPY, BIOPSY N/A 06/29/2015 EGD WITH BIOPSY performed by Paula Rocha MD at [facility] ENDOSCOPY ??? UPPER GI ENDOSCOPY, EXAM 02/13/2011 UPPER GI ENDOSCOPY performed by PAULA ROCHA I at [facility]COPY ??? UPPER GI ENDOSCOPY, EXAM 05/12/2013 UPPER GI ENDOSCOPY performed by Paula Rocha MD at [facility] END[facility]COPY ??? UPPER GI ENDOSCOPY, EXAM N/A 04/19/2015 UPPER GI ENDOSCOPY performed by Paula Rocha MD at [facility] END[facility]COPY ??? UPPER GI ENDOSCOPY, TUMOR ABLATN 04/22/2012 ENDOSCOPY, UPPER GI, W\ABLATION TUMOR\POLYP\LESION performed by PAULA ROCHA I at [facility] END[facility]COPY SOCIAL HX: Social History Socioeconomic History [...] ENDOSCOPY: Reports and images personally reviewed in eDH 03/2015 Colonoscopy: Impression: ?- The examined portion [...] evaluation. It is interesting that CT at [facility] mentioned inflammation in intestines, and wonder if [...] NPO other than prep/meds with sips. At [place], patient should be strict NPO. - Night float to please check on prep at 1am and continue prep until clear Patient seen with Dr. Rodrigo Gray MD PGY-4, Gastroenterology * Milton Soto MD - 08/14/2022 3:22 PM EST Internal Medicine Admission History and Physical Patient Name: Chidi Carbone Service: Responsible Attending: Brittany Rose MD PCP: Kennedi Shaver MD PCP phone #: [phone] Chief Complaint: GIB History of Present Illness: Patient is a 76 y/o w/ PMHx of Metastatic prostatic cancer, bilateral knee OA here for bright red blood in stool. Patient first experienced sharp LLQ pain on 08/10 PM with subsequent bright red bloodin stool. Patient had an additional episode later before seeking medical attention at [facility]. Patient was found to have hgb of [...] DIAGNOSTIC performed by Paula Rocha MD at [facility] ENDOSCOPY ??? PRO DRESSING CHANGE UNDER ANESTHESIA N/A 06/04/2019 DRESSING CHANGE (FOR OTHER THAN RAUSCH) UNDER ANES. (WRVU 0.86) performed by Rodri Villa MD at [facility] MAIN OR ? ? PRO EDG FLEXIBLE TRANSORAL ABLATE TUMOR POLYP/LESION W/DILATION & WIRE N/A 04/19/2015 EGD, TRANSORAL; WITH ABLATION OF TUMOR(S), POLYP(S), OR OTHER LESION(S) performed by Paula Rocha MD at [facility] ENDOSCOPY ??? PRO LAP, ESOPHAGOGAST FUNDOPLASTY 03/08/2014 LAPAROSCOPIC MODESTO FUNDOPLASTY performed by Surendra Garcia MD at [facility] MAIN OR ??? PRO PREP SITE TRUNK/ARM/LEG 1ST 100 SQ CM/1PCT Right 06/04/2019 SURGICAL PREP/CREATION RECIPIENT SITE, FIRST 100 SQ CM, LEGS (WRVU 3.65) performed by Rodri Villa MD at [facility] MAIN OR ? ? PRO SPLIT GRFT TRUNK, ARM, LEG <100SQCM Right 06/04/2019 SPLIT THICK SKIN GRAFT,100 SQ CM OR LESS, LEGS (WRVU 9.9) performed by Rodri Villa MD at [facility] MAIN OR ??? PRO UPPER GI ENDOSCOPY, BIOPSY 11/27/2011 UPPER GASTROINTESTINAL ENDOSCOPY,WITH BIOPSY SINGLE OR MULTIPLE performed by PAULA ROCHA I at [facility] ??? PRO UPPER GI ENDOSCOPY, BIOPSY 04/22/2012 UPPER GASTROINTESTINAL ENDOSCOPY,WITH BIOPSY SINGLE OR MULTIPLE performed by PAULA ROCHA I at [facility] ??? PRO UPPER GI ENDOSCOPY, BIOPSY 05/12/2013 UPPER GASTROINTESTINAL ENDOSCOPY,WITH BIOPSY SINGLE OR MULTIPLE performed by Paula Rocha MD at [facility]COPY ??? PRO UPPER GI ENDOSCOPY, BIOPSY 10/20/2013 UPPER GASTROINTESTINAL ENDOSCOPY,WITH BIOPSY SINGLE OR MULTIPLE performed by Paula Rocha MD at [facility] END[facility]COPY ??? PRO UPPER GI ENDOSCOPY, BIOPSY N/A 06/29/2015 EGD WITH BIOPSY performed by Paula Rocha MD at [facility] END[facility]COPY ??? UPPER GI ENDOSCOPY, EXAM 02/13/2011 UPPER GI ENDOSCOPY performed by PAULA ROCHA I at [facility]COPY ??? UPPER GI ENDOSCOPY, EXAM 05/12/2013 UPPER GI ENDOSCOPY performed by Paula Rocha MD at [facility]COPY ??? UPPER GI ENDOSCOPY, EXAM N/A 04/19/2015 UPPER GI ENDOSCOPY performed by Paula Rocha MD at [facility] ??? UPPER GI ENDOSCOPY, TUMOR ABLATN 04/22/2012 ENDOSCOPY, UPPER GI, W\ABLATION TUMOR\POLYP\LESION performed by PAULA ROCHA I at [facility] END[facility] Family History: Family History Problem Relation [...] ??? 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 Invalid input(s): [id number] Heme: No results for input(s): LDH, HAPTOGLOBIN, [...] Jacy Jordan MD Internal Medicine Pager # [phone] Attending Staff Admission Documentation I have examined [...] prompted him to present to outside hospital ([facility] in [place]), at which time hewas found to have a hemoglobin at presentation of approximately 10 and subsequently found to have adrop in hemoglobin to approximately 8. After approximately 24 hours of observation he was found to have a stable hemoglobin of still approximately 8 and discharged home with close return precautions.During his visit an abdominal CT was performed with requests placed to [facility] to share his resultsof the study with [facility] this afternoon. Patient subsequently noted fatigue and [...] with his . 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 Patient reports 1 martini and a glass [...] display ED Course as of 08/14/22 1648 Tue Aug 14, 2022 1600 Plan for patient to admit to inpatient care anticipation of upper and lower endoscopy tomorrow. He would like to try clears for PO intake at present (requests chicken broth). Plan for NPO and bowel prep upon hospitalization. 1646 Repeat CBC ordered to assess for ongoing [...] with the patient. Nikhil Dozier MD Resident 08/14/22 1654 Associated attestation - Mendez Hartley MD - [...] pt called the ambulance and went to [facility] and was discharged Saturday. Pt reported two bright red stool stools yesterday. Pt declines bloody stool Saturday and Saturday. Pt reports dizziness, short of breath, weakness and fatigue. Pt reported abdominal pain on Saturday before having a bowel movement but denies any abdominal pain since. * Jamison Ugarte DO - 08/14/2022 11:27 AM EST Telehealth Sstsonql-xx-Mhpuep Note: The following documentation is provided in my role as a TeleEmergency Physician and reflects a live audiovisual interaction. Brief HPI: Pt at [facility] Saturday- significant volume. Pt evaluated with [...] cane - straight Home Address confirmed as: [facility] [address] [facility] [facility] [address] Social & Family Supports: All names listed below confirmed with patient as current and correct Extended Emergency Contact Information Primary Emergency Contact: PipeDanish Garcia Address: [facility] [address] [place] [address] [place] Mobile Relation: Spouse Secondary Emergency Contact: Pushpa Carbone Address: [address] [place] [address] [facility] Mobile Relation: Child Current Care Provided by: [...] Yes ; Prescription Coverage: Yes Preferred Pharmacy: [facility] - [place], [place] - [address] [facility] [address] [facility] [address] [id number] - [place], [place] - [address] [address] [id number] - [place], [place] - [address] [facility] [address] [facility] [phone] [facility] - [place], [place] - [address] [facility] [address] [facility] [address] [place] Status: Patient is a : No Primary Care Provider: Kennedi Shaver MD [phone] Patient/Caregiver Goals of Treatment: Pt anticipates on [...] of care planning. Vandana Villavicencio RN, BSN geothermal operating engineer Office of Care Management Pager: [phone] * Consult Note - Lily Francis RPH - 08/14/2022 4:24 PM EST Clinical Pharmacist Review; Lily Francis [facility], PharmD Geriatric ED Medication Reconciliation Patient: Chidi [...] Patient experiencing side effects from medications? no Lily Francis RPH 08/14/22 Duration: 30 minutes * Consult Note [...] As for recent hx, he presented to [facility] on 08/09 with rectal bleeding and abdominal pain. At thattime, he felt light-headed, weak, and had 1 episode of filling toilet bowl with blood. He had sharpLLQ pain associated with this. Hgb was 10 on arrival to [facility], dropped to 8 during hospitalization - he [...] DIAGNOSTIC performed by Paula Rocha MD at [facility] ENDOSCOPY ??? PRO DRESSING CHANGE UNDER ANESTHESIA N/A 06/04/2019 DRESSING CHANGE (FOR OTHER THAN RAUSCH) UNDER ANES. (WRVU 0.86) performed by Rodri Villa MD at [facility] MAIN OR ? ? PRO EDG FLEXIBLE TRANSORAL ABLATE TUMOR POLYP/LESION W/DILATION & WIRE N/A 04/19/2015 EGD, TRANSORAL; WITH ABLATION OF TUMOR(S), POLYP(S), OR OTHER LESION(S) performed by Paula Rocha MD at [facility] ENDOSCOPY ??? PRO LAP, ESOPHAGOGAST FUNDOPLASTY 03/08/2014 LAPAROSCOPIC MODESTO FUNDOPLASTY performed by Surendra Garcia MD at [facility] MAIN OR ??? PRO PREP SITE TRUNK/ARM/LEG 1ST 100 SQ CM/1PCT Right 06/04/2019 SURGICAL PREP/CREATION RECIPIENT SITE, FIRST 100 SQ CM, LEGS (WRVU 3.65) performed by Rodri Villa MD at [facility] MAIN OR ? ? PRO SPLIT GRFT TRUNK, ARM, LEG <100SQCM Right 06/04/2019 SPLIT THICK SKIN GRAFT,100 SQ CM OR LESS, LEGS (WRVU 9.9) performed by Rodri Villa MD at [facility] MAIN OR ??? PRO UPPER GI ENDOSCOPY, BIOPSY 11/27/2011 UPPER GASTROINTESTINAL ENDOSCOPY,WITH BIOPSY SINGLE OR MULTIPLE performed by PAULA ROCHA I at [facility] ??? PRO UPPER GI ENDOSCOPY, BIOPSY 04/22/2012 UPPER GASTROINTESTINAL ENDOSCOPY,WITH BIOPSY SINGLE OR MULTIPLE performed by PAULA ROCHA I at [facility] ??? PRO UPPER GI ENDOSCOPY, BIOPSY 05/12/2013 UPPER GASTROINTESTINAL ENDOSCOPY,WITH BIOPSY SINGLE OR MULTIPLE performed by Paula Rocha MD at [facility] ??? PRO UPPER GI ENDOSCOPY, BIOPSY 10/20/2013 UPPER GASTROINTESTINAL ENDOSCOPY,WITH BIOPSY SINGLE OR MULTIPLE performed by Paula Rocha MD at [facility] ??? PRO UPPER GI ENDOSCOPY, BIOPSY N/A 06/29/2015 EGD WITH BIOPSY performed by Paula Rocha MD at [facility] ??? UPPER GI ENDOSCOPY, EXAM 02/13/2011 UPPER GI ENDOSCOPY performed by PAULA ROCHA I at [facility] ??? UPPER GI ENDOSCOPY, EXAM 05/12/2013 UPPER GI ENDOSCOPY performed by Paula Rocha MD at [facility] ??? UPPER GI ENDOSCOPY, EXAM N/A 04/19/2015 UPPER GI ENDOSCOPY performed by Paula Rocha MD at [facility] ??? UPPER GI ENDOSCOPY, TUMOR ABLATN 04/22/2012 ENDOSCOPY, UPPER GI, W\ABLATION TUMOR\POLYP\LESION performed by PAULA ROCHA I at [facility] SOCIAL HX: Social History Socioeconomic History [...] ENDOSCOPY: Reports and images personally reviewed in [facility] 03/2015 Colonoscopy: Impression: ?- The examined portion [...] evaluation. It is interesting that CT at [facility] mentioned inflammation in intestines, and wonder if [...] NPO other than prep/meds with sips. At [place], patient should be strict NPO. - Night [...] Wallace MD * ED Triage - Dena Don, RN - 08/14/2022 11:28 AM EST Pt rec'd via ambulation w/ steady gait and use of cane. States seen at [facility] 08/09 for rectal bldg where my blood [...] 4:30 PM EST Hospital Encounter [place] [address] Lizet Wilkes MD [facility] [place] [address] 09/29/2024 4:30 PM EST - 09/29/2024 5:00 PM EST Surgery [place] [address] Lizet Wilkes MD [facility] [place] [address] EGD, UPPER GI ENDOSCOPY (WRVU 2.09) 11/09/2024 10:00 AM EST Laboratory Appointment Lab at [facility] Hematology Oncology [address] [place] [phone] 11/09/2024 11:00 AM EST Office Visit Hematology [place] [phone] Faith Caba MD [facility] DR [place] [address] 11/09/2024 12:00 PM EST Appointment Hematology [place] [phone] Scheduled Procedures Name Priority Associated Diagnoses Date/Ti me EGD, UPPER GI ENDOSCOPY (WRVU 2.09) Gastroesophageal reflux disease with esophagitis, unspecified whether hemorrhage 09/29/2024 4:30 PM EST documented as of this encounter Goals Goal Patient Goal Type Associated Problems Recent Progress Patient-Stated? Author [facility] Medication Compliance and Understanding Patient Facing [...] Colonoscopy, Flexible W Control Bleeding, Any Method (27285) 08/16/2022 2:41 PM EST anemia Colonoscopy, Diagnostic (91355) 08/16/2022 2:41 PM EST anemia COLONOSCOPY Routine [...] HC VENIPUNCTURE Routine 08/15/2022 2:19 PM EST UPPER GI ENDOSCOPY Routine 08/15/2022 11 :41 [...] EST) Hemoglobin 9.5(L) 13.7 - 16.5 g/dL [facility] Hematocrit 28.0(L) 40.5 - 48.5 % [facility] Blood 08/17/2022 1:13 PM EST 08/17/2022 1:18 PM EST Narrative Resulting Agency Comment Spec In Lab Milton Soto MD HEMATOLOGY ORDERAB LES Performing Organization Address City/[facility]/ZIP Co de Phone Number [facility] [place] [address] * Transfuse RBC (08/17/2022 10:50 AM EST) Milton Soto MD NURSING TREATMENT ORDERABLES - BLOOD ADMIN * Transfuse RBC (08/17/2022 10:50 AM EST) Milton Soto MD NURSING TREATMENT ORDERABLES - BLOOD ADMIN * Prepare RBC (08/17/2022 8:00 AM EST) Dispensed? Yes [facility] Blood 08/17/2022 8:00 AM EST 08/17/2022 8:00 AM EST Milton Soto MD BLOOD BANK PRODUCT ORDERABLES Performing Organization Address City/[facility]/ZIP Co de Phone Number [facility] [place] [address] * Type and Screen Validity (08/17/2022 1:22 AM EST) T&S only valid at [facility] LABORATORY Comment:This Type and Screen result is only valid at the [facility] Hospital Blood 08/17/2022 1:22 AM EST 08/17/2022 1:41 AM EST Narrative Resulting Agency Comment Spec In Lab Ottoniel Baker MD BLOOD BANK LAB ORDER MONALISA Performing Organization Address City/[facility]/ZIP Co de Phone Number [facility] [place] [address] * ABORH Recheck Status (08/17/2022 1:22 AM EST) ABORH Type Recheck Completed [facility] Blood 08/17/2022 1:22 AM EST 08/17/2022 1:41 AM EST Narrative Resulting Agency Comment Spec In Lab Ottoniel Baker MD BLOOD BANK LAB ORDER MONALISA [facility] [place] [address] * Antibody screen (08/17/2022 1:22 AM EST) Ab Screen Interp Negative [facility] Expires at [id number] on: 08/20/2022 [facility] Blood 08/17/2022 1:22 AM EST 08/17/2022 1:41 AM EST Narrative Resulting Agency Comment Spec In Lab Ottoniel Baker MD BLOOD BANK LAB ORDER MONALISA Performing Organization Address City/[facility]/ZIP Co de Phone Number [facility] [place] [address] * ABO/Rh Typing (08/17/2022 1:22 AM EST) ABORH Type O Pos [facility] Blood 08/17/2022 1:22 AM EST 08/17/2022 1:41 AM EST Narrative Resulting Agency Comment Spec In Lab Ottoniel Baker MD BLOOD BANK LAB ORDER MONALISA Performing Organization Address City/[facility]/ZIP Co de Phone Number [facility] [place] [address] * Differential, Automated (08/17/2022 1:22 AM EST) Neutrophil % 60.0 % [facility] Neutrophil Absolute 3.19 1.70 - 6.10 x10(3)/[facility] Lymph % 23.7 % [facility] Lymphocytes Abs 1.3 0.9 - 3.2 x10(3)/[facility]ORY Monocyte % 11.5 % [facility] Monocyte Abs 0.6 0.3 - 0.9 x10(3)/[facility]ORY Eos % 3.8 % [facility] Eosinophils Abs 0.2 0.0 - 0.4 x10(3)/[facility]ORY Basophil % 0.8 % [facility] Baso Absolute 0.0 0.0 - 0.1 x10(3)/[facility] Immature Gran % 0.20 % [facility] Comment: Immature granulocytes(IG's)percentage and absolute count will include metamyelocytes, myelocytes, and promyelocytes. Blood smears from CBCs yielding IG's will be scanned manually for concordance. If this scan disagrees with the automated IG or if promyelocytes are noted, a manual differential will be performed. Immature Gran Absolute 0.01 0.00 - 0.04 x10(3)/[facility] Blood 08/17/2022 1:22 AM EST 08/17/2022 1:30 AM EST Narrative Resulting Agency Comment Spec In Lab Ottoniel Baker MD HEMATOLOGY ORDERABLE S [facility] [place] [address] * (ABNORMAL) Hemogram (08/17/2022 1:22 AM EST) White Blood Cell 5.3 4.0 - 9.5 x10(3)/mc L [facility] Red Blood Cell 2.39(L) 4.58 - 5.54 x10(6)/mc L [facility] Hemoglobin 7.1(L) 13.7 - 16.5 g/dL [facility] Hematocrit 20.8(L) 40.5 - 48.5 % [facility] Mean Cell Volume 87.0 82.9 - 93.[address] [facility] Mean Cell Hemoglobin 29.7 27.5 - 32.[address] [facility] Mean Cell Hemoglobin Concentration 34.1 32.0 - 35.7 g/dL [facility] Platelet 203 145 - 357 x10(3)/mc L [facility] RDW Standard Deviation 46.1(H) 36.0 - 45.[address] [facility] RDW coefficient of variation 14.5(H) 11.4 - 13.8 % [facility] Mean Platelet Volume 9.2 7.6 - 12.[address] [facility] NRBC% auto 0.0 % [facility] NRBC Absolute 0.000 0.000 - 0.000 x10(3)/mc L [facility] Blood 08/17/2022 1:22 AM EST 08/17/2022 1:30 AM EST Narrative Resulting Agency Comment Spec In Lab Ottoniel Baker MD HEMATOLOGY ORDERABLE S Performing Organization Address [facility] de Phone Number [facility] [place] [address] * Phosphorus (08/17/2022 1:22 AM EST) Phosphorus 3.6 2.5 - 4.5 mg/dL [facility] Blood 08/17/2022 1:22 AM EST 08/17/2022 1:30 AM EST Narrative Resulting Agency Comment Spec In Lab Milton Soto MD CHEMISTRY ORDERABL ES Performing Organization Address [facility] Co de Phone Number [facility] [place] [address] * Magnesium (08/17/2022 1:22 AM EST) Magnesium 0.76 0.69 - 1.07 mmol/L [facility] Blood 08/17/2022 1:22 AM EST 08/17/2022 1:30 AM EST Narrative Resulting Agency Comment Spec In Lab Milton Soto MD CHEMISTRY ORDERABL ES Performing Organization Address [facility]/ZIP Co de Phone Number [facility] [place] [address] * (ABNORMAL) Basic Metabolic Panel (non-fasting) (08/17/2022 1:22 AM EST) Glucose 97 65 - 199 mg/dL [facility] Comment:Diabetes: >=200 mg/d L plus symptoms Blood Urea Nitrogen 9(L) 10 - 20 mg/dL [facility] Creatinine 0.74(L) 0.80 - 1.50 mg/dL [facility] Sodium 144 135 - 145 mmol/L [facility] Potassium 3.8 3.5 - 5.0 mmol/L [facility] Comment: Please note: ??Patients with WBC >100,000 may have falsely elevated Potassium levels. ??For accurate Potassium quantification in these patients send serum separator tube (gold top) for subsequent determinations. ??Contact the Clinical Chemistry Laboratory if there are any questions. Chloride 112(H) 98 - 107 mmol/L [facility] Carbon Dioxide 27 22 - 31 mmol/L [facility] Anion Gap 5 5 - 15 mmol/L [facility] Calcium 7.9(L) 8.5 - 10.5 mg/dL [facility] Est Glomerular Filtration Rate 93 >=60 mL/min/1. 73 m?? [facility] Comment: This patient's estimated GFR [...] MD CHEMISTRY ORDERABL ES Performing Organization Address [facility] de Phone Number [facility] [place] [address] * (ABNORMAL) Hemoglobin and Hematocrit, blood (08/17/2022 1:22 AM EST) Hemoglobin 7.1(L) 13.7 - 16.5 g/dL [facility] Hematocrit 20.8(L) 40.5 - 48.5 % [facility] Blood 08/17/2022 1:22 AM EST 08/17/2022 1:30 AM EST Narrative Resulting Agency Comment Spec In Lab Milton Soto MD HEMATOLOGY ORDERAB LES Performing Organization Address [facility] de Phone Number [facility] [place] [address] * (ABNORMAL) Hemoglobin and Hematocrit, blood (08/16/2022 5:55 PM EST) Hemoglobin 7.4(L) 13.7 - 16.5 g/dL [facility] Hematocrit 21.4(L) 40.5 - 48.5 % [facility] Blood 08/16/2022 5:55 PM EST 08/16/2022 6:05 PM EST Narrative Resulting Agency Comment Spec In Lab Milton Soto MD HEMATOLOGY ORDERAB LES Performing Organization Address [facility] Co de Phone Number [facility] [place] [address] * COLONOSCOPY (08/16/2022 2:28 PM EST) COLONOSCOPY [facility] Endoscopy Procedure Date: 08/16/2022 2:28 PM ? Patient Name: Chidi Carbone ? Date of : 1945 ? Age: 76 ? Order #: [id number] ? Instrument Name: [id number] ? Procedure: ? Colonoscopy Indications: ? Hematochezia Providers: ? Chad Tipton, ? Adrienne Gonzalez, Monogram Maker, ? Emani Systrom Referring MD: ?Kennedi Shaver MD Medicines: ? [...] Procedure Code(s): ? --- Professional --- ? 24852, Colonoscopy, flexible; ? diagnostic, including collection of [...] of ascending ? colon CPT copyright 2020 [employer]. All rights reserved. The codes documented in this report are preliminary and upon journeyman apprentice electricians review may be revised to meet current compliance requirements. Attending Participation: ? I was present and participated during the entire ? procedure, including non-bello portions. ? Bubba Wallace, 08/16/2022 3:25:28 PM Number of Addenda: 0 Note Initiated On: 08/16/2022 2:28 PM [facility] 08/16/2022 2:28 PM EST Kennedi Shaver MD GENERAL SURGICAL ORD ERABLES Performing Organization Address City/[facility]/ZIP Co de Phone Number [facility] * (ABNORMAL) Hemoglobin and Hematocrit, blood (08/16/2022 1:20 PM EST) Hemoglobin 8.4(L) 13.7 - 16.5 g/dL [facility] Hematocrit 24.8(L) 40.5 - 48.5 % [facility] Blood 08/16/2022 1:20 PM EST 08/16/2022 1:30 PM EST Narrative Resulting Agency Comment Spec In Lab Milton Soto MD HEMATOLOGY ORDERAB LES [facility] [place] [address] * (ABNORMAL) Basic Metabolic Panel (non-fasting) (08/16/2022 1:20 PM EST) Glucose 110 65 - 199 mg/dL [facility] Comment:Diabetes: >=200 mg/d L plus symptoms Blood Urea Nitrogen 8(L) 10 - 20 mg/dL [facility] Creatinine 0.81 0.80 - 1.50 mg/dL [facility] Sodium 142 135 - 145 mmol/L [facility] Potassium 3.3(L) 3.5 - 5.0 mmol/L [facility] Comment: Please note: ??Patients with WBC >100,000 may have falsely elevated Potassium levels. ??For accurate Potassium quantification in these patients send serum separator tube (gold top) for subsequent determinations. ??Contact the Clinical Chemistry Laboratory if there are any questions. Chloride 106 98 - 107 mmol/L [facility] Carbon Dioxide 24 22 - 31 mmol/L [facility] Anion Gap 12 5 - 15 mmol/L [facility] Calcium 8.5 8.5 - 10.5 mg/dL [facility] Est Glomerular Filtration Rate 91 >=60 mL/min/1. 73 m?? [facility] Comment: This patient's estimated GFR [...] Lab Milton Soto MD CHEMISTRY ORDERABL ES [facility] [place] [address] * (ABNORMAL) Hemoglobin and Hematocrit, blood (08/16/2022 7:37 AM EST) Hemoglobin 7.3(L) 13.7 - 16.5 g/dL [facility] Hematocrit 21.5(L) 40.5 - 48.5 % [facility] Blood 08/16/2022 7:37 AM EST 08/16/2022 7:57 AM EST Narrative Resulting Agency Comment Spec In Lab Milton Soto MD HEMATOLOGY ORDERAB LES [facility] [place] [address] * Differential, Automated (08/16/2022 1:42 AM EST) Neutrophil % 65.8 % [facility] Neutrophil Absolute 3.58 1.70 - 6.10 x10(3)/[facility] Lymph % 18.0 % [facility] Lymphocytes Abs 1.0 0.9 - 3.2 x10(3)/[facility] Monocyte % 12.3 % [facility] Monocyte Abs 0.7 0.3 - 0.9 x10(3)/[facility] Eos % 2.9 % [facility] Eosinophils Abs 0.2 0.0 - 0.4 x10(3)/[facility] Basophil % 0.6 % [facility] Baso Absolute 0.0 0.0 - 0.1 x10(3)/[facility] Immature Gran % 0.40 % [facility] Comment: Immature granulocytes(IG's)percentage and absolute count will include metamyelocytes, myelocytes, and promyelocytes. Blood smears from CBCs yielding IG's will be scanned manually for concordance. If this scan disagrees with the automated IG or if promyelocytes are noted, a manual differential will be performed. Immature Gran Absolute 0.02 0.00 - 0.04 x10(3)/[facility] Blood 08/16/2022 1:42 AM EST 08/16/2022 1:56 AM EST Narrative Resulting Agency Comment Spec In Lab Ottoniel Baker MD HEMATOLOGY ORDERABLE S [facility] [place] [address] * (ABNORMAL) Hemogram (08/16/2022 1:42 AM EST) White Blood Cell 5.4 4.0 - 9.5 x10(3)/mc L [facility] Red Blood Cell 2.67(L) 4.58 - 5.54 x10(6)/mc L [facility] Hemoglobin 7.9(L) 13.7 - 16.5 g/dL [facility] Hematocrit 22.9(L) 40.5 - 48.5 % [facility] Mean Cell Volume 85.8 82.9 - 93.[address] [facility] Mean Cell Hemoglobin 29.6 27.5 - 32.[address] [facility] Mean Cell Hemoglobin Concentration 34.5 32.0 - 35.7 g/dL [facility] Platelet 193 145 - 357 x10(3)/mc L [facility] RDW Standard Deviation 45.9(H) 36.0 - 45.0 [facility] RDW coefficient of variation 14.6(H) 11.4 - 13.8 % [facility] Mean Platelet Volume 9.5 7.6 - 12.9 [facility] NRBC% auto 0.0 % [facility] NRBC Absolute 0.000 0.000 - 0.000 x10(3)/mc L [facility] LABORATORY Blood 08/16/2022 1:42 AM EST 08/16/2022 1:56 AM EST Narrative Resulting Agency Comment Spec In Lab Ottoniel Baker MD HEMATOLOGY ORDERABLE S [facility] [place] [address] * Phosphorus (08/16/2022 1:42 AM EST) Phosphorus 3.3 2.5 - 4.5 mg/dL [facility] Blood 08/16/2022 1:42 AM EST 08/16/2022 1:56 AM EST Narrative Resulting Agency Comment Spec In Lab Milton Soto MD CHEMISTRY ORDERABL ES Performing Organization Address [facility]/ZIP Co de Phone Number [facility] [place] [address] * Magnesium (08/16/2022 1:42 AM EST) Magnesium 0.74 0.69 - 1.07 mmol/L [facility] Blood 08/16/2022 1:42 AM EST 08/16/2022 1:56 AM EST Narrative Resulting Agency Comment Spec In Lab Milton Soto MD CHEMISTRY ORDERABL ES Performing Organization Address [facility] Co de Phone Number [facility] [place] [address] * (ABNORMAL) Basic Metabolic Panel (non-fasting) (08/16/2022 1:42 AM EST) Pathologist [facility] Glucose 111 65 - 199 mg/dL [facility] Comment:Diabetes: >=200 mg/d L plus symptoms Blood Urea Nitrogen 10 10 - 20 mg/dL [facility] Creatinine 0.76(L) 0.80 - 1.50 mg/dL [facility] Sodium 142 135 - 145 mmol/L [facility] Potassium 3.0(Criti milan) 3.5 - 5.0 mmol/L [facility] Comment: Called by: JUNAID, Read back by: Starla Warner, Date/Time:08/16/22 02:27. Please note: ??Patients with WBC >100,000 may have falsely elevated Potassium levels. ??For accurate Potassium quantification in these patients send serum separator tube (gold top) for subsequent determinations. ??Contact the Clinical Chemistry Laboratory if there are any questions. Chloride 107 98 - 107 mmol/L [facility] Carbon Dioxide 24 22 - 31 mmol/L [facility] Anion Gap 11 5 - 15 mmol/L [facility] Calcium 8.0(L) 8.5 - 10.5 mg/dL [facility] Est Glomerular Filtration Rate 93 >=60 mL/min/1. 73 m?? [facility] Comment: This patient's estimated GFR [...] MD CHEMISTRY ORDERABL ES Performing Organization Address City/[facility]/ZIP Co de Phone Number [facility] [place] [address] * (ABNORMAL) Hemoglobin and Hematocrit, blood (08/15/2022 6:07 PM EST) Hemoglobin 8.1(L) 13.7 - 16.5 g/dL [facility] Hematocrit 23.1(L) 40.5 - 48.5 % [facility] Blood 08/15/2022 6:07 PM EST 08/15/2022 6:12 PM EST Narrative Resulting Agency Comment Spec In Lab Milton Soto MD HEMATOLOGY ORDERAB LES [facility] [place] [address] * (ABNORMAL) Hemoglobin and Hematocrit, blood (08/15/2022 2:19 PM EST) Hemoglobin 8.1(L) 13.7 - 16.5 g/dL [facility] Hematocrit 24.0(L) 40.5 - 48.5 % [facility] Blood 08/15/2022 2:19 PM EST 08/15/2022 2:30 PM EST Narrative Resulting Agency Comment Spec In Lab Milton Soto MD HEMATOLOGY ORDERAB LES Performing Organization Address City/State/[facility] Co de Phone Number [facility] [place] [address] * UPPER GI ENDOSCOPY (08/15/2022 11:41 AM EST) UPPER GI ENDOSCOPY [facility] Endoscopy Procedure Date: 08/15/2022 11:41 AM ? Patient Name: Chidi Carbone ? N: [id number] ? Date of : 1945 ? Age: 76 ? Order #: [id number] ? Instrument Name: [id number] ? Procedure: ? Upper GI endoscopy Indications: ? Hematochezia Providers: ? Bubba Wallace, Emani Gray, ? Adin Kang RN, Addy Oconnor MD: ? Medicines: ? Propofol per Anesthesia [...] Procedure Code(s): ? --- Professional --- ? 29212, Esophagogastroduod enoscopy, ? flexible, transoral; diagnostic, ? [...] unspecified ? without bleeding CPT copyright 2020 [employer]. All rights reserved. The codes documented in this report are preliminary and upon journeyman apprentice electricians review may be revised to meet current [...] who have questions please contact the health career technical supervisor that requested your imaging first. ? Electronically signed by: Santo Duarte MD, [facility] ([phone]), at 08/15/2022 4:31 PM Narrative 08/15/2022 4:31 [...] was advanced to the abdominal aorta. A 5-Lithuanian sheath was advanced over the wire and [...] then exchanged over wire for a 6 Lithuanian StarClose sheath, and the arteriotomy was closed [...] was thenexchanged over wire for a 6 [place]ian StarClose sheath, and the arteriotomy was closedper [...] patients who have questions please contactthe health career technical supervisor that requested your imaging first. Electronically signed by: Santo Duarte MD, [facility]([phone]), at 08/15/2022 4:31 PM Santo Duarte MD [facility] IR ORDERABLES * Differential, Automated (08/15/2022 6:18 AM EST) Neutrophil % 68.8 % [facility] Neutrophil Absolute 4.10 1.70 - 6.10 x10(3)/[facility]ORATORY Lymph % 17.6 % [facility] Lymphocytes Abs 1.0 0.9 - 3.2 x10(3)/[facility]OR[facility] Monocyte % 10.1 % [facility] Monocyte Abs 0.6 0.3 - 0.9 x10(3)/[facility] Eos % 2.5 % [facility] Eosinophils Abs 0.2 0.0 - 0.4 x10(3)/[facility] Basophil % 0.7 % [facility] Baso Absolute 0.0 0.0 - 0.1 x10(3)/[facility] Immature Gran % 0.30 % [facility] Comment: Immature granulocytes(IG's)percentage and absolute count will include metamyelocytes, myelocytes, and promyelocytes. Blood smears from CBCs yielding IG's will be scanned manually for concordance. If this scan disagrees with the automated IG or if promyelocytes are noted, a manual differential will be performed. Immature Gran Absolute 0.02 0.00 - 0.04 x10(3)/mcL [facility] Blood 08/15/2022 6:18 AM EST 08/15/2022 6:48 AM EST Narrative Resulting Agency Comment Spec In Lab Harrison Rose MD HEMATOLOGY ORDERABLE S [facility] [place] [address] * (ABNORMAL) Hemogram (08/15/2022 6:18 AM EST) White Blood Cell 6.0 4.0 - 9.5 x10(3)/mc L [facility] Red Blood Cell 2.66(L) 4.58 - 5.54 x10(6)/mc L [facility] Hemoglobin 7.8(L) 13.7 - 16.5 g/dL [facility] Hematocrit 23.4(L) 40.5 - 48.5 % [facility] Mean Cell Volume 88.0 82.9 - 93.1 [facility] Mean Cell Hemoglobin 29.3 27.5 - 32.[address] [facility] Mean Cell Hemoglobin Concentration 33.3 32.0 - 35.7 g/dL [facility] Platelet 187 145 - 357 x10(3)/mc L [facility] RDW Standard Deviation 44.5 36.0 - 45.0 [facility] RDW coefficient of variation 14.0(H) 11.4 - 13.8 % [facility] Mean Platelet Volume 9.8 7.6 - 12.[address] [facility] NRBC% auto 0.0 % [facility] NRBC Absolute 0.000 0.000 - 0.000 x10(3)/ L [facility] Blood 08/15/2022 6:18 AM EST 08/15/2022 6:48 AM EST Narrative Resulting Agency Comment Spec In Lab Harrison Rose MD HEMATOLOGY ORDERABLE S Performing Organization Address [facility] Co de Phone Number [facility] [place] [address] * Phosphorus (08/15/2022 6:18 AM EST) Phosphorus 3.5 2.5 - 4.5 mg/dL [facility] Blood 08/15/2022 6:18 AM EST 08/15/2022 6:48 AM EST Narrative Resulting Agency Comment Spec In Lab Milton Soto MD CHEMISTRY ORDERABL ES Performing Organization Address [facility] Phone Number [facility] [place] [address] * Magnesium (08/15/2022 6:18 AM EST) Magnesium 0.78 0.69 - 1.07 mmol/L [facility] Blood 08/15/2022 6:18 AM EST 08/15/2022 6:48 AM EST Narrative Resulting Agency Comment Spec In Lab Milton Soto MD CHEMISTRY ORDERABL ES Performing Organization Address [facility] de Phone Number [facility] [place] [address] * (ABNORMAL) Basic Metabolic Panel (non-fasting) (08/15/2022 6:18 AM EST) Glucose 109 65 - 199 mg/dL [facility] Comment:Diabetes: >=200 mg/d L plus symptoms Blood Urea Nitrogen 16 10 - 20 mg/dL [facility] Creatinine 0.57(L) 0.80 - 1.50 mg/dL [facility] Sodium 143 135 - 145 mmol/L [facility] Potassium 3.4(L) 3.5 - 5.0 mmol/L [facility] Comment: Please note: ??Patients with WBC >100,000 may have falsely elevated Potassium levels. ??For accurate Potassium quantification in these patients send serum separator tube (gold top) for subsequent determinations. ??Contact the Clinical Chemistry Laboratory if there are any questions. Chloride 112(H) 98 - 107 mmol/L [facility] Carbon Dioxide 21(L) 22 - 31 mmol/L [facility] Anion Gap 10 5 - 15 mmol/L [facility] Calcium 7.8(L) 8.5 - 10.5 mg/dL [facility] Comment:result rechecked-[facility] Est Glomerular Filtration Rate 101 >=60 mL/min/1. 73 m?? [facility] Comment: This patient's estimated GFR [...] Lab Milton Soto MD CHEMISTRY ORDERABL ES [facility] [place] [address] * (ABNORMAL) Hemoglobin and Hematocrit, blood (08/15/2022 6:18 AM EST) Hemoglobin 7.8(L) 13.7 - 16.5 g/dL [facility] Hematocrit 23.4(L) 40.5 - 48.5 % [facility] Blood 08/15/2022 6:18 AM EST 08/15/2022 6:48 AM EST Narrative Resulting Agency Comment Spec In Lab Milton Soto MD HEMATOLOGY ORDERAB LES Performing Organization Address City/[facility]/[place] [address] * Transfuse RBC (08/15/2022 3:59 AM EST) [...] RBC (08/15/2022 2:00 AM EST) Dispensed? Yes [facility] Blood 08/15/2022 2:00 AM EST 08/15/2022 2:00 AM EST Milton Soto MD BLOOD BANK PRODUCT ORDERABLES Performing Organization Address City/[facility]/[place] [address] * CT Abdomen & Pelvis wwo Contrast [...] who have questions please contact the health career technical supervisor that requested your imaging first. ? Electronically signed by: Tr Rivera MD, [facility] ([phone]), at 08/15/2022 7:44 AM Narrative 08/15/2022 7:44 AM EST EXAMINATION: CT [...] patients who have questions please contactthe health career technical supervisor that requested your imaging first. Electronically signed by: Tr Rivera MD, [facility]([phone]), at 08/15/2022 7:44 AM Milton Soto MD IMG CT ORDERABLES * (ABNORMAL) Hemoglobin and Hematocrit, blood (08/15/2022 12:50 AM EST) Pathologist [facility] Hemoglobin 6.5(L) 13.7 - 16.5 g/dL [facility] Hematocrit 19.6(L) 40.5 - 48.5 % [facility] Blood 08/15/2022 12:5 0 AM EST 08/15/2022 1:03 AM EST Narrative Resulting Agency Comment Spec In Lab Milton Soto MD HEMATOLOGY ORDERAB LES [facility] [place] [address] * Prepare RBC (08/14/2022 10:50 PM EST) Pathologist [facility] Dispensed? Yes [facility] Blood 08/14/2022 10:5 0 PM EST 08/14/2022 10:52 PM EST Milton Soto MD BLOOD BANK PRODUCT ORDERABLES Performing Organization Address [facility] [place] [address] * (ABNORMAL) Hemoglobin and Hematocrit, blood (08/14/2022 10:13 PM EST) Hemoglobin 6.9(L) 13.7 - 16.5 g/dL [facility] Hematocrit 21.2(L) 40.5 - 48.5 % [facility] Blood 08/14/2022 10:1 3 PM EST 08/14/2022 10:18 PM EST Narrative Resulting Agency Comment Spec In Lab Milton Soto MD HEMATOLOGY ORDERAB LES Performing Organization Address [facility] de Phone Number [facility] [place] [address] * Transfuse RBC (08/14/2022 9:28 PM EST) Milton Soto MD NURSING TREATMENT ORDERABLES - BLOOD ADMIN * Transfuse RBC (08/14/2022 9:28 PM EST) Milton Soto MD NURSING TREATMENT ORDERABLES - BLOOD ADMIN * (ABNORMAL) Hemoglobin and Hematocrit, blood (08/14/2022 6:14 PM EST) Hemoglobin 6.6(L) 13.7 - 16.5 g/dL [facility] Hematocrit 19.7(L) 40.5 - 48.5 % [facility] Blood 08/14/2022 6:14 PM EST 08/14/2022 6:47 PM EST Narrative Resulting Agency Comment Spec In Lab Milton Soto MD [place] [address] * Prepare RBC (08/14/2022 6:00 PM EST) Dispensed? Yes [facility] Blood 08/14/2022 6:00 PM EST 08/14/2022 5:58 PM EST Milton Soto MD BLOOD BANK PRODUCT ORDERABLES [facility] [place] [address] * Differential, Automated (08/14/2022 5:34 PM EST) [facility] Neutrophil % 57.9 % [facility] Neutrophil Absolute 3.04 1.70 - 6.10 x10(3)/[facility]OR[facility] Lymph % 25.6 % [facility] Lymphocytes Abs 1.3 0.9 - 3.2 x10(3)/[facility] Monocyte % 11.3 % [facility] Monocyte Abs 0.6 0.3 - 0.9 x10(3)/[facility] Eos % 4.0 % [facility] Eosinophils Abs 0.2 0.0 - 0.4 x10(3)/[facility] Basophil % 0.8 % [facility] Baso Absolute 0.0 0.0 - 0.1 x10(3)/[facility] Immature Gran % 0.40 % [facility] Comment: Immature granulocytes(IG's)percentage and absolute count will include metamyelocytes, myelocytes, and promyelocytes. Blood smears from CBCs yielding IG's will be scanned manually for concordance. If this scan disagrees with the automated IG or if promyelocytes are noted, a manual differential will be performed. Immature Gran Absolute 0.02 0.00 - 0.04 x10(3)/mcL [facility] Blood 08/14/2022 5:34 PM EST 08/14/2022 5:34 PM EST Narrative Resulting Agency Comment Spec In Lab Nikhil Dozier MD HEMATOLOGY ORDERAB LES [facility] [place] [address] * (ABNORMAL) Hemogram (08/14/2022 5:34 PM EST) White Blood Cell 5.2 4.0 - 9.5 x10(3)/mc L [facility] Red Blood Cell 2.02(L) 4.58 - 5.54 x10(6)/mc L [facility] Hemoglobin 6.1(L) 13.7 - 16.5 g/dL [facility] Hematocrit 18.3(L) 40.5 - 48.5 % [facility] Mean Cell Volume 90.6 82.9 - 93.[address] [facility] Mean Cell Hemoglobin 30.2 27.5 - 32.[address] [facility] Mean Cell Hemoglobin Concentration 33.3 32.0 - 35.7 g/dL [facility] Platelet 213 145 - 357 x10(3)/mc L [facility] RDW Standard Deviation 42.5 36.0 - 45.[address] [facility] RDW coefficient of variation 12.8 11.4 - 13.8 % [facility] Mean Platelet Volume 9.6 7.6 - 12.[address] [facility] NRBC% auto 0.0 % [facility] NRBC Absolute 0.000 0.000 - 0.000 x10(3)/mc L [facility] Blood 08/14/2022 5:34 PM EST 08/14/2022 5:34 PM EST Narrative Resulting Agency Comment Spec In Lab Nikhil Dozier MD HEMATOLOGY ORDERAB LES [facility] [place] [address] * Type and Screen Validity (08/14/2022 12:05 PM EST) T&S only valid at [facility] LABORATORY Comment:This Type and Screen result is only valid at the [facility] Blood 08/14/2022 12:0 5 PM EST 08/14/2022 12:44 PM EST Narrative Resulting Agency Comment Spec In Lab Jamison Ugarte DO BLOOD BANK LAB ORDER MONALISA Performing Organization Address City/[facility]/ZIP Co de Phone Number [facility] [place] [address] * ABORH Recheck Status (08/14/2022 12:05 PM EST) ABORH Recheck Order Order Placed [facility] ABORH Type Recheck Complete [facility] Blood 08/14/2022 12:0 5 PM EST 08/14/2022 12:44 PM EST Narrative Resulting Agency Comment Spec In Lab Jamison Ugarte DO BLOOD BANK LAB ORDER MONALISA Performing Organization Address City/[facility]/ZIP Co de Phone Number [facility] [place] [address] * Antibody screen (08/14/2022 12:05 PM EST) Ab Screen Interp Negative [facility] Expires at [id number] on: 08/17/2022 [facility] Blood 08/14/2022 12:0 5 PM EST 08/14/2022 12:44 PM EST Narrative Resulting Agency Comment Spec In Lab Jamison Ugarte DO BLOOD BANK LAB ORDER MONALISA [facility] [place] [address] * ABO/Rh Typing (08/14/2022 12:05 PM EST) ABORH Type O Pos [facility] Blood 08/14/2022 12:0 5 PM EST 08/14/2022 12:44 PM EST Narrative Resulting Agency Comment Spec In Lab Jamison Ugarte BLOOD BANK LAB ORDER MONALISA [facility] [place] [address] * Differential, Automated (08/14/2022 12:05 PM EST) Neutrophil % 64.1 % [facility] Neutrophil Absolute 4.30 1.70 - 6.10 x10(3)/[facility]ORAT[facility] Lymph % 22.6 % [facility] Lymphocytes Abs 1.5 0.9 - 3.2 x10(3)/[facility] Monocyte % 9.5 % [facility] Monocyte Abs 0.6 0.3 - 0.9 x10(3)/[facility] Eos % 3.1 % [facility] Eosinophils Abs 0.2 0.0 - 0.4 x10(3)/[facility] Basophil % 0.4 % [facility] Baso Absolute 0.0 0.0 - 0.1 x10(3)/[facility] Immature Gran % 0.30 % [facility] Comment: Immature granulocytes(IG's)percentage and absolute count will include metamyelocytes, myelocytes, and promyelocytes. Blood smears from CBCs yielding IG's will be scanned manually for concordance. If this scan disagrees with the automated IG or if promyelocytes are noted, a manual differential will be performed. Immature Gran Absolute 0.02 0.00 - 0.04 x10(3)/[facility] Blood 08/14/2022 12:0 5 PM EST 08/14/2022 12:36 PM EST Narrative Resulting Agency Comment Spec In Lab Jamison Ugarte DO HEMATOLOGY ORDERABLE S [facility] [place] [address] * (ABNORMAL) Hemogram (08/14/2022 12:05 PM EST) White Blood Cell 6.7 4.0 - 9.5 x10(3)/mc L [facility] Red Blood Cell 2.45(L) 4.58 - 5.54 x10(6)/mc L [facility] Hemoglobin 7.4(L) 13.7 - 16.5 g/dL [facility] Hematocrit 22.0(L) 40.5 - 48.5 % [facility] Mean Cell Volume 89.8 82.9 - 93.1 [facility] Mean Cell Hemoglobin 30.2 27.5 - 32.[address] [facility] Mean Cell Hemoglobin Concentration 33.6 32.0 - 35.7 g/dL [facility] Platelet 250 145 - 357 x10(3)/mc L [facility] RDW Standard Deviation 42.4 36.0 - 45.0 [facility] RDW coefficient of variation 12.9 11.4 - 13.8 % [facility] Mean Platelet Volume 9.7 7.6 - 12.9 [facility] NRBC% auto 0.0 % [facility] NRBC Absolute 0.000 0.000 - 0.000 x10(3)/[facility] LABORATORY Blood 08/14/2022 12:0 5 PM EST 08/14/2022 12:36 PM EST Narrative Resulting Agency Comment Spec In Lab Jamison Ugarte DO HEMATOLOGY ORDERABLE S [facility] [place] [address] * (ABNORMAL) Basic Metabolic Panel (non-fasting) (08/14/2022 12:05 PM EST) Glucose 112 65 - 199 mg/dL [facility] Comment:Diabetes: >=200 mg/d L plus symptoms Blood Urea Nitrogen 19 10 - 20 mg/dL [facility] Creatinine 0.85 0.80 - 1.50 mg/dL [facility] Sodium 143 135 - 145 mmol/L [facility] Potassium 3.5 3.5 - 5.0 mmol/L [facility] Comment: Please note: ??Patients with WBC >100,000 may have falsely elevated Potassium levels. ??For accurate Potassium quantification in these patients send serum separator tube (gold top) for subsequent determinations. ??Contact the Clinical Chemistry Laboratory if there are any questions. Chloride 109(H) 98 - 107 mmol/L [facility] Carbon Dioxide 24 22 - 31 mmol/L [facility] Anion Gap 10 5 - 15 mmol/L [facility] Calcium 8.7 8.5 - 10.5 mg/dL [facility] Est Glomerular Filtration Rate 89 >=60 mL/min/1. 73 m?? [facility] Comment: This patient's estimated GFR [...] In Lab Jamison Ugarte DO CHEMISTRY ORDERABLES [facility] [place] [address] * EKG 12 Lead (08/14/2022 11:47 AM EST) Ventricular rate 74 BPM MUSE SYSTEM Atrial Rate 74 BPM MUSE SYSTEM P-R Interval 178 ms MUSE SYSTEM QRS Duration 78 ms MUSE SYSTEM Q-T Interval 392 ms MUSE SYSTEM QTC Calculated (Bezet) 435 ms MUSE SYSTEM Calculated P [place] 41 degrees MUSE SYSTEM Calculated R [place] -10 degrees MUSE SYSTEM Calculated T [place] 3 degrees MUSE SYSTEM INTERPRETATION Sinus rhythm with frequent Premature ventricular complexes Minimal voltage criteria for LVH, may be normal variant ( R in aVL ) Nonspecific ST abnormality Abnormal ECG No previous ECGs available Confirmed by Thanh Andre ([id number]) on 08/14/2022 1:09:20 PM MUSE SYSTEM 08/14/2022 11:4 7 AM EST 08/14/2022 1:09 PM EST Jamison Ugarte DO ECG ORDERABLES Performing Organization Address City/[facility]/ZIP Co de Phone Number MUSE SYSTEM * SCAN DOC: LAB (08/14/2022 12:00 AM EST) Narrative 08/14/2022 12:00 AM EST Ordered by an unspecified provider. Scanning Provider MEDIA MGR SCAN EXT O RDR/RSLT documented in this encounter Visit Diagnoses Not on filedocumented in this encounter Admitting Diagnoses Diagnosis GI [...] Given 08/16/2022 9:31 AM EST 1,000 mg finasteride (Proscar) tablet 5 mg 5 mg, Oral, NIGHTLY, First dose on Sat08/14/22 at 2100, Until Discontinued, DO NOT SPLIT, CRUSH OR OPEN, Routine Given 08/16/2022 9:07 PM EST 5 mg Oral Chemotherapy (Inpatient Use Only) Oral [...] to be dissolved in 4000 mL., Routine predniSONE (Deltasone) tablet 5 mg 5 mg, [...] Given 08/16/2022 9:13 AM EST 5 mLs tamsulosin (Flomax) capsule 0.4 mg [...] Order - Comment: per Fang- hold meds)1148 ([facility] Hold - Provider: Admin Adt - Reason: Transfer to a Procedural area)1354 ([facility] Unhold - Provider: Admin Adt) 0931 (Given - Provider: Denise Blas RN)1411 ([facility] Hold - Provider: Admin Adt - Reason: Transfer to a Procedural area)1552 ([facility] [place] Unhold - Provider: Admin Adt) 0910 (Given - Provider: Faye Sahu RN) finasteride (Proscar) tablet 5 mg 5 mg, Oral, NIGHTLY, First dose on Sat08/14/22 at 2100, Until Discontinued, DO NOT SPLIT, CRUSH OR OPEN, Routine 1148 ([facility] [place] Hold - Provider: Admin Adt - Reason: Transfer to a Procedural area)1354 ([facility] [place] Unhold - Provider: Admin Adt)2100 (Not Given - Provider: Starla Warner RN - Reason: NPO - Comment: NPO - HOLD MEDS) 1411 ([facility] [place] Hold - Provider: Admin Adt - Reason: Transfer to a Procedural area)1552 ([facility] [place] Unhold - Provider: Admin Adt)2107 (Given - [...] Order - Comment: per Fang- hold meds)1148 ([facility] Hold - Provider: Admin Adt - Reason: Transfer to a Procedural area)1354 (MAR Unhold - Provider: Admin Adt)2100 (Not Given - Provider: Starla Warner RN - Reason: NPO - Comment: NPO - HOLD MEDS) 0931 (Given - Provider: Denise Blas RN)1411 (MAR Hold - Provider: Admin Adt - Reason: Transfer to a Procedural area)1552 (MAR Unhold - Provider: Admin Adt)2107 (Given - Provider: Denzel Arboleda RN) 0824 (Given - Provider: Faye Sahu RN) polyethylene glycoL (GoLYTELY) BOWEL PREP powder for solution JUG (236g diluted to 4000 mL) 1,000 mL (COMPLETED) 1,000 mL, Oral, ONCE, 1 dose, On Sat08/16/22 at 0700, This package contains polyethylene glycol 236 g to be dissolved in 4000 mL., Routine 0740 (Given - Provider: Starla Warner RN) polyethylene glycoL (GoLYTELY) BOWEL PREP powder for solution JUG (236g diluted to 4000 mL) 4,000 mL (COMPLETED) 4,000 mL, Oral, ONCE, 1 dose, On Sat08/15/22 at 1830, This package contains polyethylene glycol 236 g to be dissolved in 4000 mL., Routine 1829 (Given - Provider: Marisa Pascual RN) potassium [...] Routine 1645 (Given - Provider: Denise Blas RN)2106 (Given - Provider: Denzel Arboleda RN) potassium chloride ER (K-Dur/Klor-Con) tablet 40 mEq (COMPLETED) 40 mEq, Oral, ONCE, 1 dose, On Sat08/17/22 at 0845, Routine 0825 (Given - Provider: Faye Sahu RN) predniSONE (Deltasone) tablet 5 mg 5 mg, Oral, DAILY, First dose on Sat08/15/22 at 0900, Until Discontinued, Routine 0900 (Hold - Provider: Marisa Pascual RN - Reason: Per MD Order - Comment: per Fanolivia- hold meds)1148 ([facility] [place] Hold - Provider: Admin Adt - Reason: Transfer to a Procedural area)1354 ([facility] [place] Unhold - Provider: Admin Adt) 0931 (Given - Provider: Denise Blas, RN)141 ([facility] [place] Hold - Provider: Admin Adt - Reason: Transfer to a Procedural area)155 ([facility] [place] Unhold - Provider: Admin Adt) 0824 (Given - Provider: Faye Sahu, NUZHAT) sodium chloride 0.9 % (flush) (BD PosiFlush Normal Saline 0.9) flush 5 mL 5 mL, Intravenous, 2 TIMES DAILY, First dose on Sat08/14/22 at 2100, Until Discontinued, Routine 0900 (Due)1148 ([facility] [place] Hold - Provider: Admin Adt - Reason: Transfer to a Procedural area)1354 ([facility] [place] Unhold - Provider: Admin Adt)2100 (Given - Provider: Starla Warner RN) 0913 (Given - Provider: Denise Blas RN)141 ([facility] [place] Hold - Provider: Admin Adt - Reason: Transfer to a Procedural area)155 ([facility] [place] Unhold - Provider: Admin Adt)210 (Given - Provider: Denzel Arboleda RN) 0825 (Given - Provider: Faye Sahu RN) tamsulosin (Flomax) capsule 0.4 mg 0.4 mg, Oral, NIGHTLY, First dose on Sat08/14/22 at 2100, Until Discontinued, DO NOT CRUSH OR OPEN, Routine 1148 ([facility] [place] Hold - Provider: Admin Adt - Reason: Transfer to a Procedural area)1354 ([facility] [place] Unhold - Provider: Admin Adt)2100 (Not Given - Provider: Starla Warner RN - Reason: NPO - Comment: NPO - HOLD MEDS) 141 ([facility] [place] Hold - Provider: Admin Adt - Reason: Transfer to a Procedural area)155 ([facility] [place] Unhold - Provider: Admin Adt)210 (Given - Provider: Denzel Arboleda RN) Continuous Medication Order 08/15/2022 08/16/2022 08/17/2022 lactated ringers infusion (CANCELED) 100 mL/hr, Intravenous, CONTINUOUS, Starting on Yudi 08/16/22 at 1430, Until Yudi 08/16/22 at 1552, Endoscopy (Day of Procedure) 1440 (New Bag - Provider: Neris Winn CRNA)1552 (Stopped - Provider: Denise Blas, NUZHAT) PRN Medication Order 08/15/2022 08/16/2022 08/17/2022 fentaNYL [...] Routine 0744 (Given - Provider: Sintia Carpio, NZUHAT)0755 (Given - Provider: Sintia Carpio, NUZHAT)0800 (Given - Provider: Sintia Carpio, NUZHAT) iohexoL (Omnipaque) (350 mg/mL) solution 0-200 mL [...] for discomfort with PIV insertion, Routine 1148 ([facility] [place] Hold - Provider: Admin Adt - Reason: Transfer to a Procedural area)1354 ([facility] [place] Unhold - Provider: Admin Adt) 1411 ([facility] [place] Hold - Provider: Admin Adt - Reason: Transfer to a Procedural area)1552 ([facility] [place] Unhold - Provider: Admin Adt) LORazepam (Ativan) [...] Until Sat08/17/22 at 1948, Sleep, Routine 1148 ([facility] [place] Hold - Provider: Admin Adt - Reason: Transfer to a Procedural area)1354 ([facility] [place] Unhold - Provider: Admin Adt) 1411 ([facility] [place] Hold - Provider: Admin Adt - Reason: Transfer to a Procedural area)1552 ([facility] [place] Unhold - Provider: Admin Adt) midazolam (Versed) [...] Sintia Carpio, NUZHAT)0755 (Given - Provider: Sintia Carpio, RN)0800 (Given - Provider: Sintia Carpio, RN) ondansetron (pf) (Zofran) (2 mg/mL) injection 8 mg (CANCELED) 8 mg, Intravenous, EVERY 8 HOURS PRN, Starting on Sat08/14/22 at 1622, Until Sat08/16/22 at 0821, Nausea 1148 ([facility] [place] Hold - Provider: Admin Adt - Reason: Transfer to a Procedural area)1354 ([facility] [place] Unhold - Provider: Admin Adt)1938 (Given - Provider: Marisa Pascual RN) Oral Chemotherapy (Inpatient Use Only) Oral 1148 ([facility] [place] Hold - Provider: Admin Adt - Reason: Transfer to a Procedural area)1354 ([facility] [place] Unhold - Provider: Admin Adt) 1411 ([facility] [place] Hold - Provider: Admin Adt - Reason: Transfer to a Procedural area)1552 ([facility] [place] Unhold - Provider: Admin Adt) polyethylene glycoL [...] be dissolved in 4000 mL., Routine 1411 ([facility] [place] Hold - Provider: Admin Adt - Reason: Transfer to a Procedural area)1552 ([facility] [place] Unhold - Provider: Admin Adt) prochlorperazine (Compazine) (5 mg/mL) injection 10 mg 10 mg, Intravenous, EVERY 6 HOURS PRN, Starting on Sat08/16/22 at 0821, Until Sat08/17/22 at 1948, Nausea, Vomiting, Routine 0931 (Given - Provider: Denise Blas RN)1411 ([facility] [place] Hold - Provider: Admin Adt - Reason: Transfer to a Procedural area)1552 ([facility] [place] Unhold - Provider: Admin Adt) sodium chloride 0.9 % (flush) (BD PosiFlush Normal Saline 0.9) flush 5-20 mL 5-20 mL, Intravenous, EVERY 1 MIN PRN, Starting on Sat08/14/22 at 1622, Until Sat08/17/22 at 1948, flush, Flush pertains to all indwelling lines. Flush per protocol found in the job aid using the link provided on this medication record., Routine 1148 (NOV Hold - Provider: Admin Adt - Reason: Transfer to a Procedural area)1354 (NOV Unhold - Provider: Admin Adt) 1411 (NOV Hold - Provider: Admin Adt - Reason: Transfer to a Procedural area)1552 (NOV Unhold - Provider: Admin Adt) zolpidem (Ambien) tablet 10 mg 10 mg, Oral, NIGHTLY PRN, Starting on Sat08/15/22 at 1100, Until Sat08/17/22 at 1948, Sleep, Routine 1148 (NOV Hold - Provider: Admin Adt - Reason: Transfer to a Procedural area)1354 (NOV Unhold - Provider: Admin Adt) 1411 (NOV Hold - Provider: Admin Adt - Reason: Transfer to a Procedural area)1552 ([facility] [place] Unhold - Provider: Admin Adt)2111 (Given - Provider: Denzel Arboleda RN) documented in this encounter Care Teams Teaching Assistant Relationship Specialty Start Date End Date Kennedi Shaver MD [facility] [address] [place] [address] PCP - General Family Medicine 08/02/20 06/24/24 documented as of this encounter
--- OUTSIDE RECORDS SUMMARY | 2024-09-11 15:23 | XMS_ITS | Encounter Summary ---
[place] [address] Care Team Providers Care Supervisor Real Estate Office Name Role Phone Kennedi Shaver MD Primary Care Provider [phone] Encounter Details Date Type Department Care Team (Late st Contact Info) Description 08/16/2022 Orders [place] [phone] Emani Gray MD [facility] [place] [address] Gastrointestinal hemorrhage, unspecified gastrointestinal hemorrhage type Social [...] (Latest Contact Info) Description 09/29/2024 4:30 PM [facility] Hospital [place] [address] Lizet Wilkes MD [facility] [place] [address] 09/29/2024 4:30 PM EST - 09/29/2024 5:00 PM EST [place] [address] Lizet Wilkes MD [facility] [address] EGD, UPPER GI ENDOSCOPY (WRVU 2.09) 11/09/2024 10:00 AM EST Laboratory Appointment [place] [facility] [address] [place] [phone] 11/09/2024 11:00 AM EST Office Visit Hematology [place] [phone] Faith Caba MD [facility] [address] [place] [address] 11/09/2024 12:00 PM EST Appointment [place] [address] Scheduled Procedures Name Priority Associated Diagnoses Date/Ti me EGD, UPPER GI ENDOSCOPY (WRVU 2.09) Gastroesophageal reflux disease with esophagitis, unspecified whether hemorrhage 09/29/2024 4:30 PM EST documented as of this encounter Goals Goal Patient Goal Type Associated Problems Recent Progress Patient-Stated? Author [facility] Medication Compliance and Understanding Patient Facing [...] documented in this encounter Care Teams Supervisor Real Estate Office Relationship Specialty Start Date End Date Kennedi Shaver MD [address] [place] [address] PCP - General Family Medicine 08/02/20 06/24/24 documented as of this encounter
--- OUTSIDE RECORDS SUMMARY | 2024-09-11 15:24 | XMS_ITS | Encounter Summary ---
[place] [address] Care Team Providers Care Tyre Builder Name Role Phone Kennedi Shaver MD Primary Care Provider [phone] Reason for Visit * Reason Comments Knee Pain NXR // BILAT CHRONIC KNEE PAIN, OTOOLE'S CYSTNo Covid symptoms * Consultation (Routine) - Closed Specialty Diagnoses / Procedures Referred By Blaine peralta Referred To Contact Orthopaedics Diagnoses Pain in both knees, unspecified chronicity Kennedi Shaver MD [address] [place] [address] [address] [place] [address] [facility] [address] [place] [phone] Referral ID Status Reason Start Date Expiration Date V isits Requested Visits Authorized [id number] Closed Consult, Test & Treat PCP Updated and/or Approved 06/29/2022 06/29/2023 12 12 Encounter Details Date Type Department Care Team (Latest Contact Info) Description 07/19/2022 2:10 PM EDT Office [place] [phone] Julio Melissa MD Pain in both knees, unspecified chronicity; Primary osteoarthritis of both knees; Encounter for long-term (current) use of medications ; Pain of right lower extremity Social History Tobacco Use Types Packs/Day Years [...] Sign Reading Time Taken Comments Blood Pressure 143/71 07/19/2022 2:09 PM EDT Pulse 75 07/19/2022 2:09 PM EDT Temperature - - Respiratory Rate - - Oxygen Saturation - - Inhaled Oxygen Concentration - - Weight 81.6 kg (180 lb) 07/19/2022 2:09 PM EDT Height 180.3 cm (5' 11) 07/19/2022 2:09 PM EDT Body Mass Index 25.1 07/19/2022 2:09 PM EDT documented in this encounter Progress Notes * Julio Melissa MD - 07/19/2022 2:10 PM EDT History of present illness: Patient is a 76-year-old male presents with bilateral right greater than left knee pain for many years. Notes has been progressive over the last few months. He notes pain globally about the knee. 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 He notes walking stairs are difficult. He has no pain at night. He has significantlyreduced his activity level and had to modify his activity. He uses ibuprofen for benefit. He has not had physical therapy or steroid injections in his knee. He has no history of surgery on his knee. Of note he is not diabetic does not smoke no metal allergy no blood clot history of blood thinner history. Allergies: No known drug allergies Social: Nondrinker occasional drinker, retired to [employer], lives in [facility] Exam: Sitting no apparent distress Examination of bilateral knees are similar. Patient has varus malalignment. Patient's knees have noscars ecchymosis or cutaneous skin lesions. There is no large effusion present. 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 His right knee range of motion is from 5 degrees from full extension to 100 degrees of flexion. His left knee has 5 degrees of motion from full extension and 110 degrees of flexion. His hips are range of motion is smooth without pain. His patella tracks centrally. He stable to varus valgus stress, neurovascular distally intact. Multiple views of bilateral knees show advanced medial joint space narrowing, patellofemoral joint changes, KL grade 4 varus knee OA bilaterally Assessment/plan: Patient is a 76-year-old male with clinical and radiographic evidence of end-stagebilateral right greater than left knee OA. At this point, I discussed treatment options including nonoperative and operative management. I discussed the role of injections and anti-inflammatories. I discussed the surgical solution a total knee replacement. I discussed the pure elective nature of knee replacement. At this point, patient would like to pursue knee replacement. I had a long discussion with him regarding knee replacement, preoperative postoperative care. Patient is thinking he like to move forward in October at . I think he could certainly be a same-day overnight surgery with possible same-day discharge. I will see patient 1 to 2 weeks prior to surgery. Preoperative evaluation. He will need to see Dr. Williamson for history and physical. documented in this encounter Plan of Treatment Upcoming Encounters Date Type Department Care Team (Latest Contact Info) Description 09/29/2024 4:30 PM EST Hospital Encounter [place] [address] Lizet Wilkes MD [facility] [place] [address] 09/29/2024 4:30 PM EST - 09/29/2024 5:00 PM EST Surgery [place] [address] Lizet Wilkes MD [facility] [place] [address] EGD, UPPER GI ENDOSCOPY (WRVU 2.09) 11/09/2024 10:00 AM EST Laboratory Appointment Lab at [facility] Hematology Oncology [address] [place] [phone] 11/09/2024 11:00 AM EST Office Visit Hematology [place] [phone] Faith Caba MD [facility] [place] [address] 11/09/2024 12:00 PM EST Appointment Hematology [place] [phone] Scheduled Procedures Name Priority Associated Diagnoses Date/Ti me EGD, UPPER GI ENDOSCOPY (WRVU 2.09) Gastroesophageal reflux disease with esophagitis, unspecified whether hemorrhage 09/29/2024 4:30 PM EST documented as of this encounter Goals Goal Patient Goal Type Associated Problems Recent Progress Patient-Stated? Author [facility] Medication Compliance and Understanding Patient Facing Action Plan Curly Nioclas, [facility] Note: The patient? s goal is to continue positive results of oral chemotherapy by maintaining improved labs PSA or stable scans in clinic for the upcoming year. documented as of this encounter Results * EKG 12 Lead (11/08/2022 3:02 PM EST) Ventricular rate 66 BPM MUSE SYSTEM Atrial Rate 66 BPM MUSE SYSTEM P-R Interval 182 ms MUSE SYSTEM QRS Duration 82 ms MUSE SYSTEM Q-T Interval 408 ms MUSE SYSTEM QTC Calculated (Bezet) 427 ms MUSE SYSTEM Calculated P [place] 27 degrees MUSE SYSTEM Calculated R [place] -14 degrees MUSE SYSTEM Calculated T [place] 15 degrees MUSE SYSTEM INTERPRETATION Normal sinus rhythm Minimal voltage criteria for LVH, may be normal variant ( R in aVL ) Borderline ECG When compared with ECG of 14-AUG-2022 11:47, Premature ventricular complexes are no longer Present Confirmed by Thanh Andre ([id number]) on 11/09/2022 4:33:51 PM MUSE SYSTEM 11/08/2022 3:02 PM EST 11/09/2022 4:33 PM EST Julio Melissa MD ECG ORDERABLES Performing Organization Address City/[facility]/ZIP Co de Phone Number MUSE SYSTEM * APTT (11/08/2022 2:54 PM EST) Partial Thromboplastin Time 32 25 - 37 sec [facility] Comment: The PTT is NOT appropriate for heparin monitoring. Use the Anti-Xa level for heparin monitoring (HEP UFH) or LMWH monitoring (HEP LMW). A PTT less than 37 seconds generally indicates adequate hemostasis. Blood 11/08/2022 2:54 PM EST 11/08/2022 3:20 PM EST Narrative Resulting Agency Comment Spec In Lab Julio Melissa MD HEMATOLOGY ORDERABLE S Performing Organization Address [facility] de Phone Number [facility] [place] [place] [address] * Prothrombin Time (11/08/2022 2:54 PM EST) Prothrombin Time 12.1 9.4 - 12.5 sec [facility] International Normalization Ratio 1.1 [facility] Comment: An INR <2.0 indicates [...] MD HEMATOLOGY ORDERABLE S Performing Organization Address [facility] Co de Phone Number [facility] [place] [address] * (ABNORMAL) Basic Metabolic Panel (non-fasting) (11/08/2022 2:54 PM EST) Glucose 98 65 - 199 mg/dL [facility] Comment:Diabetes: >=200 mg/d L plus symptoms Blood Urea Nitrogen 21(H) 10 - 20 mg/dL [facility] Creatinine 0.94 0.80 - 1.50 mg/dL [facility] Sodium 142 135 - 145 mmol/L [facility] Potassium 4.5 3.5 - 5.0 mmol/L [facility] Comment: Please note: ??Patients with WBC >100,000 may have falsely elevated Potassium levels. ??For accurate Potassium quantification in these patients send serum separator tube (gold top) for subsequent determinations. ??Contact the Clinical Chemistry Laboratory if there are any questions. Chloride 108(H) 98 - 107 mmol/L [facility] Carbon Dioxide 21(L) 22 - 31 mmol/L [facility] Anion Gap 13 5 - 15 mmol/L [facility] Calcium 9.1 8.5 - 10.5 mg/dL [facility] Est Glomerular Filtration Rate 83 >=60 mL/min/1. 73 m?? [facility] Comment: This patient's estimated GFR [...] In Lab Julio Melissa MD CHEMISTRY ORDERABLES [facility] [place] [address] * XR Knee Standing Alignment AP Lat [place] Bilat (07/19/2022 3:08 PM EDT) Anatomical Region Laterality Modality Bilateral Digital Radiogra phy Impressions 07/19/2022 4:36 PM EDT 1. ??Progression of Advanced osteoarthropathy of both knees with severe loss of medial joint spaces, osteophyte formation and intra-articular bodies in RIGHT knee joint. 2. ??Bilateral chondrocalcinosis 3. ??Chondroid lesion in distal femoral shaft with nonaggressive features, unchanged since 2007. Thank you for letting us participate in the care of this patient. ??If you are a health care provider and have any questions regarding this report, please contact the number below. ??For patients who have questions please contact the health pulmonary care nurse that requested your imaging first. ? Electronically signed by: Annabel Garsia MD, [facility] ([phone]), at 07/19/2022 4:36 PM Narrative 07/19/2022 4:36 PM EDT EXAMINATION: XR KNEE STANDING ALIGNMENT AP LAT [place] SK[place] BILAT CLINICAL HISTORY: knee pain TECHNIQUE: Standing AP , PA Gibson and skyline views of both knees and lateral view of the right knee. COMPARISON: Radiographs, March 2008. FINDINGS: Exam 1 - Standing alignment The right weight bearing axis is 37 mm medial to tibial eminence. The left weight bearing axis is 34 mm medial to tibial eminence. Exam 2: Bones: No acute fracture is present. RIGHT femur-chondroid lesion in distal femoral shaft, similar in appearance and size to 2008. The lesion is well-circumscribed. No associated endosteal scalloping, periostitis or pathologic fracture. Knee Joints: No dislocation is seen. Severe loss of bilateral medial joint spaces with qdbq-ad-xvex morphology, flattening of bone ends, subchondral sclerosis and osteophyte formation, 6 progressed since 2008. Bilateral small effusions. RIGHT Well-corticated small ossifications surrounding the RIGHT medial posterior joint space represent intra-articular bodies located either in the joint space or in a popliteal cyst. Soft tissue: Bilateral chondrocalcinosis. Procedure Note Annabel Garsia MD - 07/19/2022 EXAMINATION: XR KNEE STANDING ALIGNMENT AP LAT [place] SK[place] BILAT CLINICAL HISTORY: knee pain TECHNIQUE: Standing AP , PA Gibson and skyline views of both knees and lateralview of the right knee. COMPARISON: Radiographs, March 2008. FINDINGS: Exam 1 - Standing alignment The right weight bearing axis is 37 mm medial to tibial eminence. The left weight bearing axis is 34 mm medial to tibial eminence. Exam 2: Bones: No acute fracture is present. RIGHT femur-chondroid lesion in distal femoral shaft, similar inappearance and size to 2008. The lesion is well-circumscribed. No associated endosteal scalloping, periostitis or pathologic fracture. Knee Joints: No dislocation is seen. Severe loss of bilateral medial joint spaces with lfdz-pj-vciglwxogzwacz, flattening of bone ends, subchondral sclerosis and osteophyte formation,6 progressed since 2007. Bilateral small effusions. RIGHT Well-corticated small ossifications surrounding the RIGHT medial posteriorjoint space represent intra-articular bodies located either in the joint spaceor in a popliteal cyst. Soft tissue: Bilateral chondrocalcinosis. IMPRESSION 1. Progression of Advanced osteoarthropathy of both knees with severeloss of medial joint spaces, osteophyte formation and intra-articular bodies inRIGHT knee joint. 2. Bilateral chondrocalcinosis 3. Chondroid lesion in distal femoral shaft with nonaggressivefeatures, unchanged since 2007. Thank you for letting us participate in the care of this patient. If youare a health care provider and have any questions regarding this report,please contact the number below. For patients who have questions please contactthe health pulmonary care nurse that requested your imaging first. Julio Melissa MD IMG DX ORDERABLES documented in this encounter Visit Diagnoses Diagnosis Pain in both knees, unspecified chronicity Primary osteoarthritis of both knees Primary localized osteoarthrosis, lower leg Encounter for long-term (current) use of medications Encounter for long-term (current) use of other medications Pain of right lower extremity Pain in both knees, unspecified chronicity Gastroesophageal reflux disease with esophagitis, unspecified whether hemorrhage documented in this encounter Care Teams Tyre Builder Relationship Specialty Start Date End Date Kennedi Shaver MD [address] [place] [address] PCP - General Family Medicine 08/02/20 06/24/24 documented as of this encounter
--- OUTSIDE RECORDS SUMMARY | 2024-09-11 15:24 | XMS_ITS | Encounter Summary ---
Author Organization [facility] [place] [address] Care Team Providers Care Service Or Work Dispatcher Name Role Phone Kennedi Shaver MD Primary Care Provider [phone] Reason for Visit * Reason Comments Specialty Pharmacy Review Abiraterone Encounter Details Date Type Department Care Team (Late st Contact Info) Description 01/09/2022 Specialty [place] [address] Zac Rubin, HARRIETT Social History Tobacco Use Types Packs/Day Years [...] as of this encounter Progress Notes * Zac Rubin CPHT - 01/09/2022 11:59 PM EDT [facility] has completed a benefits investigation for Chidi Patelsoraida to review their eligibility to fill [facility]. Per patient's medication list they are prescribedAbiraterone 500mg Tablet and the medication is able to be filled at [facility]. The patient fills the medication through [facility]. documented in this encounter Plan of Treatment Upcoming Encounters Date Type Department Care Team (Latest Contact Info) Description 09/29/2024 4:30 PM EST Hospital Encounter [place] [phone] Lizet Wilkes MD [facility] [place] [address] 09/29/2024 4:30 PM EST - 09/29/2024 5:00 PM EST [place] [phone] Lizet Wilkes MD [facility] [place] [address] EGD, UPPER GI ENDOSCOPY (WRVU 2.09) 11/09/2024 10:00 AM EST Laboratory Appointment Lab at [facility] [place] [address] [place] [phone] 11/09/2024 11:00 AM EST Office Visit Hematology [place] [phone] Fatih Caba MD [facility] [place] [address] 11/09/2024 12:00 PM EST Appointment Hematology [place] [phone] Scheduled Procedures Name Priority Associated [...] on filedocumented in this encounter Care Teams Service Or Work Dispatcher Relationship Specialty Start Date End Date Kennedi Shaver MD [facility]ERO [facility] [address] [place] [address] PCP - General Family Medicine 08/02/20 06/24/24 documented as of this encounter
--- OUTSIDE RECORDS SUMMARY | 2024-09-11 15:24 | XMS_ITS | Encounter Summary ---
Author Organization [facility] [place] [address] Care Team Providers Care Armature And Rotor Winder Name Role Phone Kennedi Shaver MD Primary Care Provider [phone] Encounter Details Date Type Department Care Team (Latest Contact Info) Description 10/10/2021 7:58 AM EST - 10/10/2021 8:36 AM EST Hospital Encounter [place]ology [place] [address] Neoplasm of prostate, distant metastasis staging category [...] 50 mg by mouth as needed. 06/14/2014 Provigil 100 mg Tablet take 1 tablet by mouth once daily 09/22/2020 pantoprazole EC (Protonix) 40 mg Tablet, Delayed Release (E.C.) take 1 tablet by mouth twice a day 08/22/2020 zolpidem (AMBIEN) 10 mg Tablet take 1 tablet by mouth at bedtime 09/15/2020 leuprolide acetate (LUPRON DEPOT IM) Inject into the muscle. Once every 3 months, dosage unknown abiraterone (Zytiga) 500 mg TabletIndications:Neopla sm of prostate, 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 Take 1,000 mg by mouth daily. Brand name only. 60 tablet 11 09/12/2021 08/17/2022 lisinopriL (Prinivil;Zestril) 5 mg Tablet Take 10 mg by mouth daily. 11/14/2020 07/19/2022 augmented betamethasone dipropionate (DIPROLENE-AF) 0.05 % OintmentIndications:Numm ular eczema Apply topically to affected areas on the right leg and foot twice daily for up to 2 weeks, then take 1 week off. Repeat cycle as needed. 50 g 1 12/08/2020 01/09/2022 tamsulosin (FLOMAX) 0.4 mg Capsule Take 0.4 mg by mouth daily. 10/15/2018 08/17/2022 finasteride (PROSCAR) 5 mg Tablet Take 5 mg by mouth daily. 06/06/2018 08/17/2022 predniSONE (DELTASONE) 5 mg Tablet Take 1 tablet by mouth daily. 30 tablet 11 05/06/2018 08/17/2022 documented as of this encounter Plan of Treatment Upcoming Encounters Date Type Department Care Team (Latest Contact Info) Description 09/29/2024 4:30 PM EST Hospital [place] [phone] Lizet Wilkes MD [facility] [place] [address] 09/29/2024 4:30 PM EST - 09/29/2024 5:00 PM EST [place] [phone] Lizet Wilkes MD [facility] [place] [address] EGD, UPPER GI ENDOSCOPY (WRVU 2.09) 11/09/2024 10:00 AM EST Laboratory Appointment Lab at [facility] Hematology Oncology [address] [place] [phone] 11/09/2024 11:00 AM EST Office Visit [place]ology [place] [phone] Faith Caba MD [facility] [place] [address] 11/09/2024 12:00 PM EST Appointment [place]ology [place] [phone] Scheduled Procedures Name Priority Associated Diagnoses Date/Ti me EGD, UPPER GI ENDOSCOPY (WRVU 2.09) Gastroesophageal reflux disease with esophagitis, unspecified whether hemorrhage 09/29/2024 4:30 PM EST documented as of this encounter Goals Goal Patient Goal Type Associated Problems Recent Progress Patient-Stated? Author [facility] Medication Compliance and Understanding Patient Facing Action Plan Curly Nicolas, [facility] Note: The patient? s goal is to continue positive results of oral chemotherapy by maintaining improved labs PSA or stable scans in clinic for the upcoming year. documented as of this encounter Procedures Procedure Name Priority Date/Time Associated Diagnosis Comments HEMOGRAM Routine 10/10/2021 8:05 AM EST Neoplasm of prostate, 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 DIFFERENTIAL, AUTOMATED Routine 10/10/2021 8:05 AM EST Neoplasm of prostate, 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 HC CBC,PLT & AUTO DIFF Routine 8:05 AM EST Neoplasm of prostate, 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 HC VENIPUNCTURE Routine 10/10/2021 8:05 AM EST Neoplasm of prostate, 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 COMPREHENSIVE METABOLIC PANEL Routine 10/10/2021 8:05 AM EST Neoplasm of prostate, 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 documented in this encounter Results * Differential, Automated (10/10/2021 8:05 AM EST) Neutrophil % 64.7 % [facility] Neutrophil Absolute 4.21 1.70 - 6.10 x10(3)/[facility] Lymph % 19.3 % [facility] Lymphocytes Abs 1.3 0.9 - 3.2 x10(3)/[facility] Monocyte % 11.0 % [facility] Monocyte Abs 0.7 0.3 - 0.9 x10(3)/[facility] Eos % 3.8 % [facility] Eosinophils Abs 0.2 0.0 - 0.4 x10(3)/[facility] Basophil % 0.6 % [facility] Baso Absolute 0.0 0.0 - 0.1 x10(3)/[facility] Immature Gran % 0.60 % [facility] Comment: Immature granulocytes(IG's)percentage and absolute count will include metamyelocytes, myelocytes, and promyelocytes. Blood smears from CBCs yielding IG's will be scanned manually for concordance. If this scan disagrees with the automated IG or if promyelocytes are noted, a manual differential will be performed. Immature Gran Absolute 0.04 0.00 - 0.04 x10(3)/[facility] Blood 10/10/2021 8:05 AM EST 10/10/2021 8:16 AM EST Narrative Resulting Agency Comment Spec In Lab Deborah Hector GRINDER MACH[employer] KNIFE SETTER HEMATOLOGY ORDERAB LES [facility] [place] [address] * (ABNORMAL) Hemogram (10/10/2021 8:05 AM EST) [facility] White Blood Cell 6.5 4.0 - 9.5 x10(3)/ L [facility] Red Blood Cell 4.41(L) 4.58 - 5.54 x10(6)/[facility] Hemoglobin 13.4(L) 13.7 - 16.5 g/dL [facility] Hematocrit 40.1(L) 40.5 - 48.5 % [facility] Mean Cell Volume 90.9 82.9 - 93.1 fL [facility] Mean Cell Hemoglobin 30.4 27.5 - 32.1 pg [facility] Mean Cell Hemoglobin Concentration 33.4 32.0 - 35.7 g/dL [facility] Platelet 259 145 - 357 x10(3)/[facility] RDW Standard Deviation 41.9 36.0 - 45.0 [facility] RDW coefficient of variation 12.7 11.4 - 13.8 % [facility] Mean Platelet Volume 9.7 7.6 - 12.9 [facility] NRBC% auto 0.0 % [facility] NRBC Absolute 0.000 0.000 - 0.000 x10(3)/[facility] Blood 10/10/2021 8:05 AM EST 10/10/2021 8:16 AM EST Narrative Resulting Agency Comment Spec In Lab Deborah Hector [employer]ACH[employer] KNIFE SETTER HEMATOLOGY ORDERAB LES [facility] [place] [address] * Comprehensive metabolic panel (non-fasting) (10/10/2021 8:05 AM EST) [facility] Glucose 109 65 - 199 mg/dL [facility] Comment:Diabetes: >=200 mg/d L plus symptoms Blood Urea Nitrogen 17 10 - 20 mg/dL [facility] Creatinine 0.94 0.80 - 1.50 mg/dL [facility] Sodium 141 135 - 145 mmol/L [facility] Potassium 4.0 3.5 - 5.0 mmol/L [facility] Comment: Please note: ??Patients with WBC >100,000 may have falsely elevated Potassium levels. ??For accurate Potassium quantification in these patients send serum separator tube (gold top) for subsequent determinations. ??Contact the Clinical Chemistry Laboratory if there are any questions. Chloride 105 98 - 107 mmol/L [facility] Carbon Dioxide 24 22 - 31 mmol/L [facility] Anion Gap 12 5 - 15 mmol/L [facility] Calcium 9.1 8.5 - 10.5 mg/dL [facility] Protein, Total 6.5 6.1 - 8.0 g/dL [facility] Albumin 4.3 3.2 - 5.2 g/dL [facility] Aspartate Aminotransferase 16 0 - 39 unit/L [facility] Alanine Aminotransferase 11 0 - 55 unit/L [facility] Alkaline Phosphatase 111 40 - 130 unit/L [facility] Bilirubin, Total 0.9 0.2 - 1.3 mg/dL [facility] Est Glomerular Filtration Rate 78 >=60 mL/min/1. 73 m?? [facility] Comment: This patient? s estimated glomerular filtration rate (eGFR) is between 78 mL/min/1.73 m2 (patients with less muscle mass per kg body weight) and 91 mL/min/1.73 m2 (patients with more muscle mass per kg body weight) as determined by the CKD-EPI equation. Assessment of eGFR is not appropriate when creatinine concentrations are rapidly changing. For clinical decisions where creatinine clearance will affect therapy, a 24-hour urine creatinine clearance may be advised. Assignment of CKD stage 1 - 5 for patients with an eGFR near the transition point between stages may be based on clinical assessment of muscle mass and symptoms in addition to eGFR. Blood 10/10/2021 8:05 AM EST 10/10/2021 8:16 AM EST Narrative Resulting Agency Comment Spec In Lab Deborah Hector GRINDER MACHINE KNIFE SETTER CHEMISTRY ORDERABL ES Performing Organization Address [facility] Co de Phone Number [facility] [place] [address] * PSA (Ultrasensitive) (10/10/2021 8:05 AM EST) Prostate Specific Antigen (Ultrasensitive ) <0.01 0.00 - 4.00 ng/mL [facility] Comment: PLEASE NOTE: The above reference interval is intended for healthy males with an intact prostate. Values within this reference interval may indicate recurrence in men who have undergone radical prostatectomy. 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
--- OUTSIDE RECORDS SUMMARY | 2024-09-11 15:24 | XMS_ITS | Encounter Summary ---
Author Organization [facility] [place] [address] Care Team Providers Care Senior Accounting Analyst Name Role Phone Kennedi Shaver MD Primary Care Provider [phone] Encounter Details Date Type Department Care Team (Late st Contact Info) Description 10/23/2021 Telephone [place] [phone] Denise Doty Social History Tobacco Use Types Packs/Day Years [...] Miscellaneous Notes * Telephone Encounter - Denise Doty - 10/23/2021 1:04 PM EST Call made to patient per request from provider Patient needs: to confirm change in date. Time and provider for upcoming new patient appointment LVM for patient to call GI clinic to confirm and discuss. Ok to contact this principal technical writer to explain to the patitent documented in this encounter Plan of Treatment Upcoming Encounters Date Type Department Care Team (Latest Contact Info) Description 09/29/2024 4:30 PM EST Hospital Encounter Gastroenterology at [place] [phone] Lizet Wilkes MD [facility] [place] [address] 09/29/2024 4:30 PM EST - 09/29/2024 5:00 PM EST [place] [phone] Lizet Wilkes MD [facility] [place]STR[place]I [place] [phone] EGD, UPPER GI ENDOSCOPY (WRVU 2.09) 11/09/2024 10:00 AM EST Laboratory Appointment Lab at [facility] Hematology Oncology [address] [place] [phone] 11/09/2024 11:00 AM EST Office Visit Hematology [place] [phone] Faith Caba MD [facility] DR HEMATOLOGY [place] [address] 11/09/2024 12:00 PM EST Appointment Hematology [place] [phone] Scheduled Procedures Name Priority Associated [...] filedocumented in this encounter Care Teams Senior Accounting Analyst Relationship Specialty Start Date End Date Kennedi Shaver MD [address] [place] [address] PCP - General Family Medicine 08/02/20 06/24/24 documented as of this encounter
--- OUTSIDE RECORDS SUMMARY | 2024-09-11 15:24 | XMS_ITS | Encounter Summary ---
[place] [address] Care Team Providers Care Geospatial Developer Name Role Phone Kennedi Shaver MD Primary Care Provider [phone] Reason for Visit * Treatment/Therapy Plan Authorization (Routine) - Authorized Specialty Diagnoses / Procedures Referred By Blaine peralta Referred To Contact Diagnoses Neoplasm of prostate, 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 Procedures TC LEUPROLIDE ACETATE, PER 1MG, INJECTION (LUPRON) Faith Caba MD [facility] DR HEMATOLOGY [place] [address] [facility] Hem Onc [address] [place] [address] Referral ID Status Reason Start Date Expiration Date V isits Requested Visits Authorized [id number] Authorized 09/27/2020 09/29/2024 99 99 Encounter Details Date Type Department Care Team (Latest Contact Info) Description 04/10/2022 8:47 AM EDT - 04/10/2022 11:59 PM EDT Hospital Encounter Hematology [place] [phone] Neoplasm of prostate, distant metastasis staging category [...] months, dosage unknown abiraterone (Zytiga) 500 mg TabletIndications:Neopl asm of prostate, 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 Take 1,000 mg by mouth daily. Brand name only. 60 tablet 11 09/12/2021 08/17/2022 lisinopriL (Prinivil;Zestril) 5 mg Tablet Take 10 mg by mouth daily. 11/14/2020 07/19/2022 tamsulosin (FLOMAX) 0.4 mg Capsule Take 0.4 mg by mouth daily. 10/15/2018 08/17/2022 finasteride (PROSCAR) 5 mg Tablet Take 5 mg by mouth daily. 06/06/2018 08/17/2022 predniSONE (DELTASONE) 5 mg Tablet Take 1 tablet by mouth daily. 30 tablet 11 05/06/2018 08/17/2022 documented as of this encounter Progress Notes * Loi Alcaraz RN - 04/10/2022 11:15 AM EDT Patient Name: Chidi Carbone Patient Age: 76 y.o. Birthdate: 1945 Admit date: 04/10/2022 Attending Physician: No att. providers found Murillo Jessica Carbone is a 76 y.o. male who presents to [facility] today for a medication injection of Lupron. This patient meets criteria per their therapy plan to receive treatment at this date/time. Permission to treat from provider confirmed. See MAR for complete administration details. Injection administered to Right Glute. Tolerated well. documented in this encounter Plan of Treatment Upcoming Encounters Date Type Department Care Team (Latest Contact Info) Description 09/29/2024 4:30 PM EST Hospital Encounter Gastroenterology at [place] [phone] Lizet Wilkes MD [facility] [place] [address] 09/29/2024 4:30 PM EST - 09/29/2024 5:00 PM EST Surgery [place] [phone] Lizet Wilkes MD [facility] [place] [address] EGD, UPPER GI ENDOSCOPY (WRVU 2.09) 11/09/2024 10:00 AM EST Laboratory Appointment Lab at [facility] [place] Hematology Oncology [address] [place] [phone] 11/09/2024 11:00 AM EST Office Visit Hematology [place] [phone] Faith Caba MD [facility] [place] [address] 11/09/2024 12:00 PM EST Appointment Hematology and Oncology at [place] [phone] Scheduled Procedures Name Priority Associated Diagnoses Date/Ti [...] 22.5 mg, Intramuscular, ONCE, 1 dose, On Sat04/10/22 at 1100, Routine, This agent is restricted to outpatient use. Is this drug being given as an outpatient? Yes Given 04/10/2022 11:13 AM EDT 22.5 mg Right Gluteal documented in this encounter Care Teams Geospatial Developer Relationship Specialty Start Date End Date Kennedi Shaver MD [address] [place] [address] PCP - General Family Medicine 08/02/20 06/24/24 documented as of this encounter
--- OUTSIDE RECORDS SUMMARY | 2024-09-11 15:24 | XMS_ITS | Encounter Summary ---
Author Organization [facility] [place] [address] Care Team Providers Care Professor Of Journalism Name Role Phone Kennedi Shaver MD Primary Care Provider [phone] Encounter Details Date Type Department Care Team (Late st Contact Info) Description 01/09/2022 10:30 AM EDT Office Visit Hematology [place] [phone] Faith Caba MD [facility] [address] HEMATOLOGY [place] [address] Deborah Hector, [address] [place] [address] Nadira Palomo MD [facility] HEMATOLOGY/[place] [address] Neoplasm of prostate, 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; Androgen deprivation therapy; Encounter for monitoring androgen deprivation therapy; Osteopenia, unspecified location; Primary hypertension Social History Tobacco Use Types Packs/Day Years [...] Sign Reading Time Taken Comments Blood Pressure 158/83 01/09/2022 10:14 AM EDT Pulse 80 01/09/2022 10:14 AM EDT Temperature 36.9 ??C (98.5 ??F) 01/09/2022 10:14 AM E DT Respiratory Rate 22 01/09/2022 10:14 AM EDT Oxygen Saturation 97% 01/09/2022 10:14 AM EDT Inhaled Oxygen Concentration - - Weight 85.8 kg (189 lb 3.2 oz) 01/09/2022 10:14 AM EDT Height 179 cm (5' 10.47) 01/09/2022 10:14 AM ED T Body Mass Index 26.78 01/09/2022 10:14 AM EDT documented in this encounter Progress Notes * Deborah Hector, OFFICIAL COURT REPORTER - 01/09/2022 10:30 AM EDT Images from the original note were not included. N [facility] HEM ONC [facility] [phone] ?? ONCOLOGY FOLLOW UP VISIT DIAGNOSIS: Metastatic [...] 10/10/21: osteopenia, referred to Endo HPI: Chidi Jessica Carbone presents today for follow up and consideration of Lupron. -No interval health issues. -Continues taking edmar/pred as directed. -Temperature fluctuates/mild hot flashes; remembers when they were not mild -Still noting decreased energy but stays somewhat active, walking dog, etc. -No urinary or bowel concerns -Chronic bilat knee pain; no pain otherwise -Manages BP with PCP. Had been on increased dose of lisinopril (10 mg) but developed cough, has been off med x 2 weeks -Saw Dr. Nelson for osteopenia, has increase dietary calcium intake as directed, planning for labs/follow up and possible zoledronic acid treatment. - Tori is doing well -Chidi continues to enjoy writing REVIEW OF SYSTEMS: As noted in HPI; all other systems were reviewed and found to be negative. PAST MEDICAL HISTORY: 1. As above 2. GERD and Sol's esophagus S/p Alli Fundoplication 3. ELevated fasting glusoce 4. S/p distant appendectomy 5. S/p tonsilectomy 6. Hypertension MEDS: Medications 01/09/22 1019 Medication Sig Taking? abiraterone (Zytiga) 500 mg Tablet Take 1,000 mg by mouth daily. Brand name only. Yes lisinopriL (Prinivil;Zestril) 5 mg Tablet Take 10 mg by mouth daily. Yes Provigil 100 mg Tablet take 1 tablet by mouth once daily Yes zolpidem (AMBIEN) 10 mg Tablet take 1 tablet by mouth at bedtime Yes leuprolide acetate (LUPRON DEPOT IM) Inject into the muscle. Once every 3 months, dosage unknown Yes tamsulosin (FLOMAX) 0.4 mg Capsule Yes finasteride (PROSCAR) 5 mg Tablet Yes predniSONE (DELTASONE) 5 mg Tablet Take 1 tablet by mouth daily. Yes pantoprazole EC (Protonix) 40 mg Tablet, Delayed Release (E.C.) take 1 tablet by mouth twice a day ALLERGY: No Known Allergies FAMILY HX: Reviewed no change SOCIAL HX: Reviewed - no change PHYSICAL EXAM: BP 158/83 (Patient Position: Sitting) Pulse 80 Temp 36.9 ??C (98.5 ??F) (Temporal) Resp 22 Ht 179 cm (5' 10.47) Wt 85.8 kg (189 lb 3.2 oz) SpO2 97% BMI 26.78 kg/m?? ECOG PS: 0 General: NAD, pleasant, well-appearing Resp: Effort normal. No respiratory distress. Musculoskeletal: Ambulatory without assist. Neurological: Alert & oriented, no focal deficits. Psych: Conversant, normal mood and affect. Vitals reviewed. LABS: Recent Results (from the past 24 hour(s)) Comprehensive metabolic panel (non-fasting) Result Value Ref Range Glucose Lvl 115 65 - 199 mg/dL BUN 17 10 - 20 mg/dL Creatinine 0.93 0.80 - 1.50 mg/dL Sodium 139 135 - 145 mmol/L Potassium 4.1 3.5 - 5.0 mmol/L Chloride 104 98 - 107 mmol/L CO2 24 22 - 31 mmol/L Anion Gap 11 5 - 15 mmol/L Calcium 9.4 8.5 - 10.5 mg/dL Total Protein 6.4 6.1 - 8.0 g/dL Albumin 4.3 3.2 - 5.2 g/dL AST 16 0 - 39 unit/L ALT 10 0 - 55 unit/L Alk Phos 99 40 - 130 unit/L Total Bilirubin 0.8 0.2 - 1.3 mg/dL Estimated GFR 79 >=60 mL/min/1.73 m?? PSA (Ultrasensitive) Result Value Ref Range PSA Total (Ultrasensitive) <0.01 0.00 - 4.00 ng/mL Hemogram Result Value Ref Range WBC 6.3 4.0 - 9.5 x10(3)/mcL RBC 4.08 (L) 4.58 - 5.54 x10(6)/mcL Hemoglobin 12.8 (L) 13.7 - 16.5 g/dL Hematocrit 37.0 (L) 40.5 - 48.5 % MCV 90.7 82.9 - 93.1 fL MCH 31.4 27.5 - 32.1 pg MCHC 34.6 32.0 - 35.7 g/dL Platelets 229 145 - 357 x10(3)/mcL RDWSD 42.3 36.0 - 45.0 fL RDWCV 12.9 11.4 - 13.8 % MPV 10.0 7.6 - 12.9 fL nRBC % Auto 0.0 % nRBC Abs Auto 0.000 0.000 - 0.000 x10(3)/mcL Differential, Automated Result Value Ref Range Neutrophils % 72.1 % Neutr Abs (ANC) 4.54 1.70 - 6.10 x10(3)/mcL Lymphocytes % 15.1 % Lymphocytes Abs 1.0 0.9 - 3.2 x10(3)/mcL Monocytes % 9.9 % Monocyte Abs 0.6 0.3 - 0.9 x10(3)/mcL Eosinophils % 2.1 % Eosinophils Abs 0.1 0.0 - 0.4 x10(3)/mcL Basophils % 0.5 % Basophils Abs 0.0 0.0 - 0.1 x10(3)/mcL Immature Gran % 0.30 % Julisa Gran Abs 0.02 0.00 - 0.04 x10(3)/mcL IMAGING STUDIES: No new ASSESSMENT AND PLAN: 76 y.o. M has metastatic prostate cancer with extensive disease involving nodes and bones. He is oncombination lupron+abiraterone in the first line therapy. He has excellent response with PSA undetectable and maintained since 2019. Clinically he is doing very well with no disease related sx and no significant AEs Labs reviewed and ok to cont current therapy. Hypertension: Advised f/u with PCP re management and SEs of lisinopril millie given that abiraterone can contribute to hypertension. Osteoporosis: Continue f/u and mgmt per Dr. Nelson. Bilat knee pain: Contine f/u with PCP Plan: -continue edmar/pred -continue ADT, due for Lupron today -RTC in 3 months for labs, visit and Lupron Mr. Carbone asked appropriate questions and verbalized good understanding of and agreement with theplan. I encouraged him to call anytime with questions or concerns and he agreed. Deborah Hector APRN Oncology documented in this encounter Plan of Treatment Upcoming Encounters Date Type Department Care Team (Latest Contact Info) Description 09/29/2024 4:30 PM EST Hospital Encounter Gastroenterology at [place] [phone] Lizet Wilkes MD [facility] [place] [address] 09/29/2024 4:30 PM EST - 09/29/2024 5:00 PM EST Surgery [place] [phone] Lizet Wilkes MD [facility] [place] [address] EGD, UPPER GI ENDOSCOPY (WRVU 2.09) 11/09/2024 10:00 AM EST Laboratory Appointment Lab at [facility] Hematology Oncology [address] [place], [place] [phone] 11/09/2024 11:00 AM EST Office Visit Hematology and Oncology at [place] [phone] Faith Caba MD [facility] DR HEMATOLOGY [place] [address] 11/09/2024 12:00 PM EST Appointment Hematology [place] [phone] Scheduled Procedures Name Priority Associated [...] documented as of this encounter Results * PSA (Ultrasensitive) (04/10/2022 8:54 AM EDT) Prostate Specific Antigen (Ultrasensitive) <0.01 0.00 - 4.00 ng/mL [facility] Comment: PLEASE NOTE: The above reference interval is intended for healthy males with an intact prostate. Values within this reference interval may indicate recurrence in men who have undergone radical prostatectomy. This result was generated using a Kenneth Paz immunoassay. ??Results obtained from other methods or manufacturers cannot be used interchangeably with this method. Blood 04/10/2022 8:54 AM EDT 04/10/2022 8:58 AM EDT Narrative Resulting Agency Comment Spec In Lab Deborah Hector APRN CHEMISTRY ORDERABL ES [facility] [place] [address] * Comprehensive metabolic panel (non-fasting) (04/10/2022 8:54 AM EDT) Glucose 144 65 - 199 mg/dL [facility] Comment:Diabetes: >=200 mg/d L plus symptoms Blood Urea Nitrogen 17 10 - 20 mg/dL [facility] Creatinine 0.91 0.80 - 1.50 mg/dL [facility] Sodium 137 135 - 145 mmol/L [facility] Potassium 4.0 3.5 - 5.0 mmol/L [facility] Comment: Please note: ??Patients with WBC >100,000 may have falsely elevated Potassium levels. ??For accurate Potassium quantification in these patients send serum separator tube (gold top) for subsequent determinations. ??Contact the Clinical Chemistry Laboratory if there are any questions. Chloride 102 98 - 107 mmol/L [facility] Carbon Dioxide 23 22 - 31 mmol/L [facility] Anion Gap 12 5 - 15 mmol/L [facility] Calcium 9.2 8.5 - 10.5 mg/dL [facility] Protein, Total 6.6 6.1 - 8.0 g/dL [facility] Albumin 4.4 3.2 - 5.2 g/dL [facility] Aspartate Aminotransferase 17 0 - 39 unit/L [facility] Alanine Aminotransferase 15 0 - 55 unit/L [facility] Alkaline Phosphatase 91 40 - 130 unit/L [facility] Bilirubin, Total 0.9 0.2 - 1.3 mg/dL [facility] Est Glomerular Filtration Rate 87 >=60 mL/min/1. 73 m?? [facility] Comment: This patient's estimated GFR [...] and symptoms in addition to eGFR. Blood 04/10/2022 8:54 AM EDT 04/10/2022 8:58 AM EDT Narrative Resulting Agency Comment Spec In Lab Deborah Hector OFFICIAL COURT REPORTER CHEMISTRY ORDERABL ES [facility] [place] [address] documented in this encounter Visit Diagnoses Diagnosis Neoplasm of prostate, 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 Androgen deprivation therapy Encounter for therapeutic drug monitoring Encounter for monitoring androgen deprivation therapy Encounter for therapeutic drug monitoring Osteopenia, unspecified location Primary hypertension Unspecified essential hypertension Gastroesophageal reflux disease with esophagitis, unspecified whether hemorrhage documented in this encounter Care Teams Professor Of Journalism Relationship Specialty Start Date End Date Kennedi Shaver MD [address] [place] [address] PCP - General Family Medicine 08/02/20 06/24/24 documented as of this encounter
--- OUTSIDE RECORDS SUMMARY | 2024-09-11 15:24 | XMS_ITS | Encounter Summary ---
Author Organization [facility] [place] [address] Care Team Providers Care Glue Maker Name Role Phone Kennedi Shaver MD Primary Care Provider [phone] Encounter Details Date Type Department Care Team (Late st Contact Info) Description 08/06/2022 Telephone [place] [phone] Julio [place] MD Social History Tobacco Use [...] * Telephone Encounter - Mone Sargent - 08/06/2022 12:32 PM EST I called and left a message for patient to call [phone] directly and schedule surgery with Dr. MELISSA. documented in this encounter Plan of Treatment Upcoming Encounters Date Type Department Care Team (Latest Contact Info) Description 09/29/2024 4:30 PM EST Hospital Encounter [place] [phone] Lizet Wilkes MD [facility] [place] [address] 09/29/2024 4:30 PM EST - 09/29/2024 5:00 PM EST [place] [phone] Lizet Wilkes MD [facility] [place] [address] EGD, UPPER GI ENDOSCOPY (WRVU 2.09) 11/09/2024 10:00 AM EST Laboratory Appointment Lab at [facility] Hematology Oncology [address] [place] [phone] 11/09/2024 11:00 AM EST Office Visit Hematology [place] [phone] Faith Caba MD [facility] DR [place] [address] 11/09/2024 12:00 PM EST Appointment Hematology [place] [phone] Scheduled Procedures Name Priority Associated Diagnoses Date/Ti ky EGD, UPPER GI ENDOSCOPY (WRVU 2.09) Gastroesophageal [...] on filedocumented in this encounter Care Teams Glue Maker Relationship Specialty Start Date End Date Kennedi Shaver MD [address] [facility] [address] [place] [address] PCP - General Family Medicine 08/02/20 06/24/24 documented as of this encounter
--- OUTSIDE RECORDS SUMMARY | 2024-09-11 15:24 | XMS_ITS | Encounter Summary ---
[place] [address] Care Team Providers Care Social Welfare Clerk Name Role Phone Kennedi Shaver MD Primary Care Provider [phone] Reason for Visit * Treatment/Therapy Plan Authorization (Routine) - Authorized Specialty Diagnoses / Procedures Referred By Blaine peralta Referred To Contact Diagnoses Neoplasm of prostate, 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 Procedures TC LEUPROLIDE ACETATE, PER 1MG, INJECTION (LUPRON) Faith Caba MD [facility] [address] [place]Y [place] [address] [facility] Hem Onc [address] [place] [address] Referral ID Status Reason Start Date Expiration Date V isits Requested Visits Authorized [id number] Authorized 09/27/2020 09/29/2024 99 99 Encounter Details Date Type Department Care Team (Latest Contact Info) Description 10/10/2021 7:58 AM EST - 10/10/2021 8:36 AM EST Hospital Encounter Hematology [place] [phone] Neoplasm of prostate, distant metastasis staging category [...] Progress Notes * Stephanie Woodson RN - 10/10/2021 11:10 AM EST Patient Name: Chidi Carbone Patient Age: 75 y.o. Birthdate: 1945 Admit date: 10/10/2021 Attending Physician: No att. providers found Access visit. See MAR and/or flowsheet.lupron given. documented in this encounter Plan of Treatment Upcoming Encounters Date Type Department Care Team (Latest Contact Info) Description 09/29/2024 4:30 PM EST Hospital Encounter Gastroenterology at [place] [phone] [facility] [place] [address] 09/29/2024 4:30 PM EST - 09/29/2024 5:00 PM EST Surgery Gastroenterology at [place] [phone] [facility] [place] [address] EGD, UPPER GI ENDOSCOPY (WRVU 2.09) 11/09/2024 10:00 AM EST Laboratory Appointment Lab at [facility] Hematology Oncology [address] [place] [phone] 11/09/2024 11:00 AM EST Office Visit Hematology and Oncology at [place] [phone] [facility] [address] [place]AT[place]Y [place] [address] 11/09/2024 12:00 PM EST Appointment Hematology and Oncology at [place] [phone] Scheduled Procedures Name Priority Associated Diagnoses Date/Ti [...] 22.5 mg, Intramuscular, ONCE, 1 dose, On Sat10/10/21 at 1115, Routine, This agent is restricted to outpatient use. Is this drug being given as an outpatient? Yes Given 10/10/2021 11:06 AM EST 22.5 mg Right Gluteal documented in this encounter Care Teams Social Welfare Clerk Relationship Specialty Start Date End Date Kennedi Shaver MD [facility] [address] [place] [address] PCP - General Family Medicine 08/02/20 06/24/24 documented as of this encounter
--- OUTSIDE RECORDS SUMMARY | 2024-09-11 15:24 | XMS_ITS | Encounter Summary ---
Author Organization Formerly [facility] [place] [address] Care Team Providers Care Stud Sheep Farmer Name Role Phone Kennedi Shaver MD Primary Care Provider [phone] Reason for Referral * Consultation (Routine) - Closed Specialty Diagnoses / Procedures Referred By Blaine peralta Referred To Contact Endocrinology Diagnoses Osteoporosis, unspecified osteoporosis type, unspecified pathological fracture presence Deborah Hector APRN [address] [place] [address] [place] [address] Stephy Nelson MD [facility] [place] [address] Referral ID Status Reason Start Date Expiration Date V isits Requested Visits Authorized [id number] Closed Consult, Test & Treat 10/10/2021 10/10/2022 1 1 Reason for Visit * Reason Comments Follow-up Encounter Details Date Type Department Care Team (Late st Contact Info) Description 10/10/2021 10:30 AM EST Office Visit Hematology [place] [address] Faith Caba MD [facility] DR HEMATOLOGY [place] [address] Deborah Hector, [address] [place] [address] [facility] HEMATOLOGY/[place] [address] Neoplasm of prostate, 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; Androgen deprivation therapy; Encounter for monitoring androgen deprivation therapy; Osteoporosis, unspecified osteoporosis type, unspecified pathological fracture presence; Prostate cancer metastatic to multiple sites Social History Tobacco Use Types Packs/Day Years [...] Sign Reading Time Taken Comments Blood Pressure 153/68 10/10/2021 9:31 AM EST Pulse 84 10/10/2021 9:31 AM EST Temperature 36.2 ??C (97.2 ??F) 10/10/2021 9:31 AM ES T Respiratory Rate 20 10/10/2021 9:31 AM EST Oxygen Saturation 96% 10/10/2021 9:31 AM EST Inhaled Oxygen Concentration - - Weight 86.5 kg (190 lb 12.8 oz) 10/10/2021 9:31 AM EST Height 179.7 cm (5' 10.75) 10/10/2021 9:[address] Body Mass Index 26.8 10/10/2021 9:31 AM EST documented in this encounter Progress Notes * Deborah Hector APRN - 10/10/2021 10:30 AM EST Images from the original note were not included. N [facility] ON[facility] [phone] ?? ONCOLOGY FOLLOW UP VISIT DIAGNOSIS: Metastatic [...] PSA Ramesh is undetectable (achieved since 09/2018) HPI: Chidi Carbone presents today for follow up and consideration of Lupron. Had DXA earlier today. -No interval health issues. -Continues taking edmar/pred as directed. -Chronic bilateral knee pain, takes Advil -Knee pain limiting mobility. -No new urinary or bowel symptoms. -BP stable, takes lisinopril per PCP. -Occasional LLQ pain, sometimes wraps around to back. Started about a month ago. Not constant. No noticeable pattern in terms of time of day, associated activity, diet, etc. None at present. -No pain otherwise. 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 PAST MEDICAL HISTORY: 1. As above 2. GERD and Sol's esophagus S/p Alli Fundoplication 3. ELevated fasting glusoce 4. S/p distant appendectomy 5. S/p tonsilectomy 6. Hypertension MEDS: Medications 10/10/21 0928 Medication Sig Taking? abiraterone (Zytiga) 500 mg Tablet Take 1,000 mg by mouth daily. Brand name only. Yes lisinopriL (Prinivil;Zestril) 5 mg Tablet Take 5 mg by mouth daily. Yes zolpidem (AMBIEN) 10 mg Tablet take 1 tablet by mouth at bedtime Yes leuprolide acetate (LUPRON DEPOT IM) Inject into the muscle. Once every 3 months, dosage unknown Yes tamsulosin (FLOMAX) 0.4 mg Capsule Yes finasteride (PROSCAR) 5 mg Tablet Yes predniSONE (DELTASONE) 5 mg Tablet Take 1 tablet by mouth daily. Yes augmented betamethasone dipropionate (DIPROLENE-AF) 0.05 % Ointment Apply topically to affected areas on the right leg and foot twice daily for up to 2 weeks, then take 1 week off. Repeat cycle as needed. Patient not taking: Reported on 04/11/2021 Provigil 100 mg Tablet take 1 tablet by mouth once daily pantoprazole EC (Protonix) 40 mg Tablet, Delayed Release (E.C.) take 1 tablet by mouth twice a day ALLERGY: No Known Allergies FAMILY HX: Reviewed no change SOCIAL HX: Reviewed - no change PHYSICAL EXAM: BP 153/68 (Patient Position: Sitting) Pulse 84 Temp 36.2 ??C (97.2 ??F) (Temporal) Resp 20 Ht 179.7 cm (5' 10.75) Wt 86.5 kg (190 lb 12.8 oz) SpO2 96% BMI 26.80 kg/m?? ECOG PS: 0 General: NAD, pleasant, well-appearing Head: NCAT Neck: Normal ROM, supple. Cardiovascular: RRR, no murmur. Resp: Effort normal. No respiratory distress. CTAB. Abdomen: Soft, NT, ND, no palpable masses. Skin: Skin is warm and dry. No rash or lesions noted on limited exam. No pallor. Musculoskeletal: Normal range of motion, ambulatory without assist. Extremities: No distal edema noted. Neurological: Alert & oriented, no focal deficits. Heme: No cervical or supraclavicular adenopathy. Psych: Conversant, normal mood and affect. Vitals reviewed. LABS: Recent Results (from the past 24 hour(s)) PSA (Ultrasensitive) Result Value Ref Range PSA Total (Ultrasensitive) <0.01 0.00 - 4.00 ng/mL Comprehensive metabolic panel (non-fasting) Result Value Ref Range Glucose Lvl 109 65 - 199 mg/dL BUN 17 10 - 20 mg/dL Creatinine 0.94 0.80 - 1.50 mg/dL Sodium 141 135 - 145 mmol/L Potassium 4.0 3.5 - 5.0 mmol/L Chloride 105 98 - 107 mmol/L CO2 24 22 - 31 mmol/L Anion Gap 12 5 - 15 mmol/L Calcium 9.1 8.5 - 10.5 mg/dL Total Protein 6.5 6.1 - 8.0 g/dL Albumin 4.3 3.2 - 5.2 g/dL AST 16 0 - 39 unit/L ALT 11 0 - 55 unit/L Alk Phos 111 40 - 130 unit/L Total Bilirubin 0.9 0.2 - 1.3 mg/dL Estimated GFR 78 >=60 mL/min/1.73 m?? Hemogram Result Value Ref Range WBC 6.5 4.0 - 9.5 x10(3)/mcL RBC 4.41 (L) 4.58 - 5.54 x10(6)/mcL Hemoglobin 13.4 (L) 13.7 - 16.5 g/dL Hematocrit 40.1 (L) 40.5 - 48.5 % MCV 90.9 82.9 - 93.1 fL MCH 30.4 27.5 - 32.1 pg MCHC 33.4 32.0 - 35.7 g/dL Platelets 259 145 - 357 x10(3)/mcL RDWSD 41.9 36.0 - 45.0 fL RDWCV 12.7 11.4 - 13.8 % MPV 9.7 7.6 - 12.9 fL nRBC % Auto 0.0 % nRBC Abs Auto 0.000 0.000 - 0.000 x10(3)/mcL Differential, Automated Result Value Ref Range Neutrophils % 64.7 % Neutr Abs (ANC) 4.21 1.70 - 6.10 x10(3)/mcL Lymphocytes % 19.3 % Lymphocytes Abs 1.3 0.9 - 3.2 x10(3)/mcL Monocytes % 11.0 % Monocyte Abs 0.7 0.3 - 0.9 x10(3)/mcL Eosinophils % 3.8 % Eosinophils Abs 0.2 0.0 - 0.4 x10(3)/mcL Basophils % 0.6 % Basophils Abs 0.0 0.0 - 0.1 x10(3)/mcL Immature Gran % 0.60 % Julisa Gran Abs 0.04 0.00 - 0.04 x10(3)/mcL IMAGING STUDIES: DXA - official report pending. Imaging reviewed, shows osteoporosis in FA, spine and femoral head. ASSESSMENT AND PLAN: 75 y.o. M has metastatic prostate cancer with extensive disease involving nodes and bones. He is oncombination lupron+abiraterone in the first line therapy. He has excellent response with PSA undetectable and maintained since 2019. Clinically he is doing very well with no disease related sx and no significant AEs Labs reviewed and ok to cont current therapy. Hypertension: well controlled on lisinopril Osteoporosis: Today's DXA shows osteoporosis in forearm, spine and femoral head. As noted previously, ADT increases bone turnover and decreases bone mineral density, thereby increasing the risk of clinical bone fractures. Recommended referral to Endo for further work up and consideration of treatment. He agrees. For now, recommend resuming dietary calcium intake (food and supplements) of 1000 to 1200 mg daily, and supplemental vitamin D 800 to 1000 international units daily, as well as weight bearing exercise, and decreased alcohol consumption. He does not smoke. Bilat knee pain: recommend f/u with PCP millie given mobility limitations, importance of staying active moving forward in terms of bone and overall health. LLQ pain: unclear etiology, labs and exam reassuring. Advised to call if persists/worsens and discuss w/PCP. Plan: -continue edmar/pred -continue ADT, due for Lupron today -Referral to Endo -RTC in 3 months for labs, visit [...] EST Hospital Encounter Gastroenterology at [place] [phone] Lizet Wilkes MD [facility] [place] [address] 09/29/2024 4:30 PM EST - 09/29/2024 5:00 PM EST [place] [phone] Lizet Wilkes MD [facility] [place] [address] EGD, UPPER GI ENDOSCOPY (WRVU 2.09) 11/09/2024 10:00 AM EST Laboratory Appointment Lab at [facility] Hematology Oncology [address] [place] [phone] 11/09/2024 11:00 AM EST Office Visit Hematology and Oncology at [place] [phone] Faith Caba MD [facility] [place] [address] 11/09/2024 12:00 PM EST Appointment Hematology [place] [phone] Scheduled Procedures Name Priority Associated Diagnoses Date/Ti me EGD, UPPER GI ENDOSCOPY (WRVU 2.09) Gastroesophageal reflux disease with esophagitis, unspecified whether hemorrhage 09/29/2024 4:30 PM EST Scheduled Referrals Name Type Priority Associated Diagnoses Orde r Schedule Referral to Endocrinology Outpatient Referral Routine Osteoporosis, unspecified osteoporosis type, unspecified pathological fracture presence Ordered: 10/10/2021 documented as of this encounter Goals Goal [...] of this encounter Results * PSA (Ultrasensitive) (01/09/2022 9:35 AM EDT) Prostate Specific Antigen (Ultrasensitive ) <0.01 0.00 - 4.00 ng/mL [facility] Comment: PLEASE NOTE: The above reference interval is intended for healthy males with an intact prostate. Values within this reference interval may indicate recurrence in men who have undergone radical prostatectomy. Blood 01/09/2022 9:35 AM EDT 01/09/2022 9:42 AM EDT Narrative Resulting Agency Comment Spec In Lab Deborah Hector INVESTMENT ANALYST CHEMISTRY ORDERABL ES [facility] [place] [address] * Comprehensive metabolic panel (non-fasting) (01/09/2022 9:35 AM EDT) Glucose 115 65 - 199 mg/dL [facility] Comment:Diabetes: >=200 mg/d L plus symptoms Blood Urea Nitrogen 17 10 - 20 mg/dL [facility] Creatinine 0.93 0.80 - 1.50 mg/dL [facility] Sodium 139 135 - 145 mmol/L [facility] Potassium 4.1 3.5 - 5.0 mmol/L [facility] Comment: Please note: ??Patients with WBC >100,000 may have falsely elevated Potassium levels. ??For accurate Potassium quantification in these patients send serum separator tube (gold top) for subsequent determinations. ??Contact the Clinical Chemistry Laboratory if there are any questions. Chloride 104 98 - 107 mmol/L [facility] Carbon Dioxide 24 22 - 31 mmol/L [facility] Anion Gap 11 5 - 15 mmol/L [facility] Calcium 9.4 8.5 - 10.5 mg/dL [facility] Protein, Total 6.4 6.1 - 8.0 g/dL [facility] Albumin 4.3 3.2 - 5.2 g/dL [facility] Aspartate Aminotransferase 16 0 - 39 unit/L [facility] Alanine Aminotransferase 10 0 - 55 unit/L [facility] Alkaline Phosphatase 99 40 - 130 unit/L [facility] Bilirubin, Total 0.8 0.2 - 1.3 mg/dL [facility] Est Glomerular Filtration Rate 79 >=60 mL/min/1. 73 m?? [facility] Comment: This patient? s estimated glomerular filtration rate (eGFR) is between 79 mL/min/1.73 m2 (patients with less muscle mass [...] and symptoms in addition to eGFR. Blood 01/09/2022 9:35 AM EDT 01/09/2022 9:42 AM EDT Narrative Resulting Agency Comment Spec In Lab Deborah Hector APRN CHEMISTRY ORDERABL ES [facility] [place] [address] documented in this encounter Visit Diagnoses Diagnosis Neoplasm of prostate, 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 Androgen deprivation therapy Encounter for therapeutic drug monitoring Encounter for monitoring androgen deprivation therapy Encounter for therapeutic drug monitoring Osteoporosis, unspecified osteoporosis type, unspecified pathological fracture presence Prostate cancer metastatic to multiple sites Malignant neoplasm of prostate Gastroesophageal reflux disease with esophagitis, unspecified whether hemorrhage documented in this encounter Care Teams Stud Sheep Farmer Relationship Specialty Start Date End Date Kennedi Shaver MD [address] [place] [address] PCP - General Family Medicine 08/02/20 06/24/24 documented as of this encounter
--- OUTSIDE RECORDS SUMMARY | 2024-09-11 15:24 | XMS_ITS | Encounter Summary ---
[place] [address] Care Team Providers Care Concrete Mixer Name Role Phone Kennedi Shaver MD Primary Care Provider [phone] Encounter Details Date Type Department Care Team (Latest Contact Info) Description 07/10/2022 8:41 AM EDT Hospital Encounter Hematology [place] [phone] Neoplasm of prostate, distant metastasis staging category [...] 4:30 PM EST Hospital En[place] [phone] Lizet Wilkes MD [facility] [place] [address] 09/29/2024 4:30 PM EST - 09/29/2024 5:00 PM EST [place] [phone] Lizet Wilkes MD [facility] [place] [address] EGD, UPPER GI ENDOSCOPY (WRVU 2.09) 11/09/2024 10:00 AM EST Laboratory Appointment Lab at [facility] Hematology Oncology [address] [place] [phone] 11/09/2024 11:00 AM EST Office Visit Hematology [place] [phone] Faith Caba MD [facility] DR HEMATOLOGY [place] [address] 11/09/2024 12:00 PM EST Appointment Hematology [place] [phone] Scheduled Procedures Name Priority Associated Diagnoses Date/Ti me EGD, UPPER GI ENDOSCOPY (WRVU 2.09) Gastroesophageal reflux disease with esophagitis, unspecified whether hemorrhage 09/29/2024 4:30 PM EST documented as of this encounter Goals Goal Patient Goal Type Associated Problems Recent Progress Patient-Stated? Author [facility] Medication Compliance and Understanding Patient Facing Action Plan Curly Nicolas, [facility] Note: The patient? s goal is to continue positive results of oral chemotherapy by maintaining improved labs PSA or stable scans in clinic for the upcoming year. documented as of this encounter Procedures Procedure Name Priority Date/Time Associated Diagnosis Comments HEMOGRAM Routine 07/10/2022 8:47 AM EDT Neoplasm of prostate, 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 DIFFERENTIAL, AUTOMATED Routine 07/10/2022 8:47 AM EDT Neoplasm of prostate, 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 HC CBC,PLT & AUTO DIFF Routine 8:47 AM EDT Neoplasm of prostate, 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 HC PROSTATE SPECIFIC ANTIGEN Routine 07/10/2022 8:47 AM EDT Neoplasm of prostate, 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 COMPREHENSIVE METABOLIC PANEL Routine 07/10/2022 8:47 AM EDT Neoplasm of prostate, 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 documented in this encounter Results * Differential, Automated (07/10/2022 8:47 AM EDT) Pathologist [facility] Neutrophil % 60.5 % [facility] Neutrophil Absolute 3.84 1.70 - 6.10 x10(3)/[facility] Lymph % 22.2 % [facility] Lymphocytes Abs 1.4 0.9 - 3.2 x10(3)/[facility] Monocyte % 11.8 % [facility] [place] Monocyte Abs 0.8 0.3 - 0.9 x10(3)/[facility] Eos % 4.6 % [facility] Eosinophils Abs 0.3 0.0 - 0.4 x10(3)/[facility] Basophil % 0.6 % [facility] Baso Absolute 0.0 0.0 - 0.1 x10(3)/[facility] Immature Gran % 0.30 % [facility] Comment: Immature granulocytes(IG's)percentage and absolute count will include metamyelocytes, myelocytes, and promyelocytes. Blood smears from CBCs yielding IG's will be scanned manually for concordance. If this scan disagrees with the automated IG or if promyelocytes are noted, a manual differential will be performed. Immature Gran Absolute 0.02 0.00 - 0.04 x10(3)/[facility] Blood 07/10/2022 8:47 AM EDT 07/10/2022 8:59 AM EDT Narrative Resulting Agency Comment Spec In Lab Faith Caba MD HEMATOLOGY ORDERABLE S [facility] [place] [address] * (ABNORMAL) Hemogram (07/10/2022 8:47 AM EDT) White Blood Cell 6.4 4.0 - 9.5 x10(3)/mc L [facility] Red Blood Cell 4.17(L) 4.58 - 5.54 x10(6)/mc L [facility] Hemoglobin 12.9(L) 13.7 - 16.5 g/dL [facility] Hematocrit 37.7(L) 40.5 - 48.5 % [facility] Mean Cell Volume 90.4 82.9 - 93.1 fL [facility] Mean Cell Hemoglobin 30.9 27.5 - 32.1 pg [facility] Mean Cell Hemoglobin Concentration 34.2 32.0 - 35.7 g/dL [facility] Platelet 242 145 - 357 x10(3)/mc L [facility] RDW Standard Deviation 43.1 36.0 - 45.0 fL [facility] RDW coefficient of variation 13.0 11.4 - 13.8 % [facility] Mean Platelet Volume 9.6 7.6 - 12.9 fL [facility] NRBC% auto 0.0 % [facility] NRBC Absolute 0.000 0.000 - 0.000 x10(3)/mc L [facility] Blood 07/10/2022 8:47 AM EDT 07/10/2022 8:59 AM EDT Narrative Resulting Agency Comment Spec In Lab Faith Caba MD HEMATOLOGY ORDERABLE S Performing Organization Address City/State/[facility] Co de Phone Number [facility] [place] [address] * PSA (Ultrasensitive) (07/10/2022 8:47 AM EDT) Prostate Specific Antigen (Ultrasensitive) <0.01 0.00 - 4.00 ng/mL [facility] [...] be used interchangeably with this method. Blood 07/10/2022 8:47 AM EDT 07/10/2022 8:59 AM EDT Narrative Resulting Agency Comment Spec In Lab Faith Caba MD CHEMISTRY ORDERABLES [facility] [place] [place] [address] * Comprehensive metabolic panel (non-fasting) (07/10/2022 8:47 AM EDT) Glucose 103 65 - 199 mg/dL [facility] Comment:Diabetes: >=200 mg/d L plus symptoms Blood Urea Nitrogen 20 10 - 20 mg/dL [facility] Creatinine 0.90 0.80 - 1.50 mg/dL [facility] [...] mmol/L [facility] Carbon Dioxide 26 22 - 31 mmol/L [facility] Anion Gap 10 5 - 15 mmol/L [facility] Calcium 9.0 8.5 - 10.5 mg/dL [facility] Protein, Total 6.5 6.1 - 8.0 g/dL [facility] Albumin 4.3 3.2 - 5.2 g/dL [facility] Aspartate Aminotransferase 16 0 - 39 unit/L [facility] Alanine Aminotransferase 10 0 - 55 unit/L [facility] Alkaline Phosphatase 97 40 - 130 unit/L [facility] Bilirubin, Total 0.9 0.2 - 1.3 mg/dL [facility] Est Glomerular Filtration Rate 88 >=60 mL/min/1. 73 m?? [facility] Comment: This patient's estimated [...] and symptoms in addition to eGFR. Blood 07/10/2022 8:47 AM EDT 07/10/2022 8:59 AM EDT Narrative Resulting Agency Comment Spec In Lab Faith Caba MD CHEMISTRY ORDERABLES [facility] [place] [address] documented in this encounter Visit Diagnoses Diagnosis Neoplasm of prostate, 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 Gastroesophageal reflux disease with esophagitis, unspecified whether hemorrhage documented in this encounter Care Teams Concrete Mixer Relationship Specialty Start Date End Date Kennedi Shaver MD [address] [place] [address] PCP - General Family Medicine 08/02/20 06/24/24 documented as of this encounter
--- OUTSIDE RECORDS SUMMARY | 2024-09-11 15:24 | XMS_ITS | Encounter Summary ---
Author Organization [facility] [place] [address] Care Team Providers Care Choral Teacher Name Role Phone Kennedi Shaver MD Primary Care Provider [phone] Encounter Details Date Type Department Care Team (Latest Contact Info) Description 01/18/2022 4:10 PM EDT - 01/18/2022 11:59 PM EDT [place] [address] Osteoporosis, unspecified osteoporosis type, unspecified pathological fracture presence; Malignant neoplasm of prostate Discharge Disposition: Home Social History Tobacco Use [...] 4:30 PM EST Hospital Encounter [place] [address] Lizet Wilkes MD [facility] [place] [address] 09/29/2024 4:30 PM EST - 09/29/2024 5:00 PM EST Surgery [place] [address] Lizet Wilkes MD [facility] [place] [address] EGD, UPPER GI ENDOSCOPY (WRVU 2.09) 11/09/2024 10:00 AM EST Laboratory Appointment Lab [place] [facility] [place] On[place] [address] [place] [phone] 11/09/2024 11:00 AM EST Office Visit Hematology [place] [address] Faith Caba MD [facility] DR [place] [address] 11/09/2024 12:00 PM EST Appointment Hematology [place] [address] Scheduled Procedures Name Priority Associated Diagnoses Date/Ti me EGD, UPPER GI ENDOSCOPY (WRVU 2.09) Gastroesophageal reflux disease with esophagitis, unspecified whether hemorrhage 09/29/2024 4:30 PM EST documented as of this encounter Goals Goal Patient Goal Type Associated Problems Recent Progress Patient-Stated? Author [facility] Medication Compliance and Understanding Patient Facing Action Plan Curly Nicolas, [facility] Note: The patient? s goal is to continue positive results of oral chemotherapy by maintaining improved labs PSA or stable scans in clinic for the upcoming year. documented as of this encounter Procedures Procedure Name Priority Date/Time Associated Diagnosis Comments U24 HRS AND VOLUME Routine 01/18/2022 5: 50 AM EDT HC CALCIUM QUANTITATIVE, URINE TIME SPEC 24 HR Routine 01/18/2022 5:50 AM EDT Osteoporosis, unspecified osteoporosis type, unspecified pathological fracture presence Malignant neoplasm of prostate HC CREATININE - NON BLOOD Routine 01/18/2022 5:50 AM EDT Osteoporosis, unspecified osteoporosis type, unspecified pathological fracture presence Malignant neoplasm of prostate documented in this encounter Results * U24 Hrs and Volume (01/18/2022 5:50 AM EDT) Hours Collected 24 hour(s) [facility] Total Volume 1,[address] [facility] Urine 01/18/2022 5:50 AM EDT 01/18/2022 6:03 PM EDT Narrative Resulting Agency Comment Spec In Lab Stephy Nelson MD CHEMISTRY ORDERABLES Performing Organization Address [facility] Co de Phone Number [facility] [place] [address] * Calcium, urine, 24 hour (01/18/2022 5:50 AM EDT) Ca Concentration, U24 15.7 mg/dL [facility] Calcium, 24 Hour Urine 274.8 50.0 - 300.0 mg/24hr [facility] Comment:Reference Range: 50. 0-300.0 mg/24 hour based on diet. Urine 01/18/2022 5:50 AM EDT 01/18/2022 6:03 PM EDT Narrative Resulting Agency Comment Spec In Lab Stephy Nelson MD URINE ORDERABLES Performing Organization Address [facility] Co de Phone Number [facility] [place] [address] * Creatinine, urine, 24 hour (01/18/2022 5:50 AM EDT) Cre Concentration, U24 65 mg/dL [facility] Creatinine, 24 Hour Urine 1.14 1.00 - 2.40 g/24hr [facility] Urine 01/18/2022 5:50 AM EDT 01/18/2022 6:03 PM EDT Narrative Resulting Agency Comment Spec In Lab Stephy Nelson MD URINE ORDERABLES Performing Organization Address City/[facility] Co de Phone Number [facility] [place] [address] documented in this encounter Visit Diagnoses Diagnosis Osteoporosis, unspecified osteoporosis type, unspecified pathological fracture presence Malignant neoplasm of prostate Gastroesophageal reflux disease with esophagitis, unspecified whether hemorrhage documented in this encounter Care Teams Choral Teacher Relationship Specialty Start Date End Date Kennedi Shaver MD [address] [place] [address] PCP - General Family Medicine 08/02/20 06/24/24 documented as of this encounter
--- OUTSIDE RECORDS SUMMARY | 2024-09-11 15:24 | XMS_ITS | Encounter Summary ---
Author Organization [facility] [place] [address] Care Team Providers Care Data Analysis Manager Name Role Phone Kennedi Shaver MD Primary Care Provider [phone] Encounter Details Date Type Department Care Team (Late st Contact Info) Description 04/10/2022 10:00 AM EDT Office Visit Hematology [place] [address] Faith Caba MD [facility] [address] [place] [address] Deborah Hector, [address] HEMATOLOGY [place] [address] Neoplasm of prostate, distant metastasis staging category [...] Sign Reading Time Taken Comments Blood Pressure 156/87 04/10/2022 9:48 AM EDT Pulse 73 04/10/2022 9:48 AM EDT Temperature 36.4 ??C (97.5 ??F) 04/10/2022 9:48 AM ED T Respiratory Rate 18 04/10/2022 9:48 AM EDT Oxygen Saturation 97% 04/10/2022 9:48 AM EDT Inhaled Oxygen Concentration - - Weight 82.8 kg (182 lb 9.6 oz) 04/10/2022 9:48 A M EDT Height 179.8 cm (5' 10.79) 04/10/2022 9:48 AM E DT Body Mass Index 25.62 04/10/2022 9:48 AM EDT documented in this encounter Progress Notes * Faith Caba MD - 04/10/2022 10:00 AM EDT Images from the original note were not included. N [facility] [place] [phone] ?? ONCOLOGY FOLLOW UP VISIT DIAGNOSIS: Metastatic [...] for follow up. He is doing well. 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 No new sx to report. Energy is stable with some day when he is more fatigued but able to finish almost all planned activities/tasks. Hot flushes are tolerable. No new pain. Appetite, wt stable. Mentally doing very well since Tori is doing really well currently. 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 PAST MEDICAL HISTORY: 1. As above 2. GERD and Sol's esophagus S/p Alli Fundoplication 3. ELevated fasting glusoce 4. S/p distant appendectomy 5. S/p tonsilectomy 6. Hypertension MEDS: Medications 04/10/22 0957 Medication Sig Taking? abiraterone (Zytiga) 500 mg Tablet Take 1,000 mg by mouth daily. Brand name only. Yes Provigil 100 mg Tablet take 1 [...] Take 1 tablet by mouth daily. Yes lisinopriL (Prinivil;Zestril) 5 mg Tablet Take 10 mg by mouth daily. pantoprazole EC (Protonix) 40 mg Tablet, Delayed Release (E.C.) take 1 tablet by mouth twice a day ALLERGY: No Known Allergies FAMILY HX: Reviewed no change SOCIAL HX: Reviewed - no change PHYSICAL EXAM: BP 156/87 (Patient Position: Sitting) Pulse 73 Temp 36.4 ??C (97.5 ??F) (Temporal) Resp 18 Ht 179.8 cm (5' 10.79) Wt 82.8 kg (182 lb 9.6 oz) SpO2 97% BMI 25.62 kg/m?? ECOG PS: 0 General: NAD NCAT No cerval nodes RRR CTAB No rash No spinal tendernedd Musculoskeletal: Ambulatory without assist. Neurological: Alert & oriented, no focal deficits. Psych: Conversant, normal mood and affect. LABS: Hb up to 13.2 otherwise normal CBC/Diff, normal CMP PSA undetectable IMAGING STUDIES: No new ASSESSMENT [...] why this was not started. Chidi is a little hesistant due to potential for AEs.I will ask Dr Nelson to weigh in otherwise plan on starting him at our nest visit. He is back to taking Ca + Vit D F/u in 3 months Mr. Carbone asked appropriate questions and verbalized good understanding of and agreement with theplan. I encouraged him to call anytime with questions or concerns and he agreed. Faith Caba MD Oncology documented in this encounter Plan of Treatment Upcoming Encounters Date Type Department Care Team (Latest Contact Info) Description 09/29/2024 4:30 PM EST Hospital Encounter [place] [address] Lizet Wilkes MD [facility] [place] [address] 09/29/2024 4:30 PM EST - 09/29/2024 5:00 PM EST Surgery [place] [address] Lizet Wilkes MD [facility] [place] [address] EGD, UPPER GI ENDOSCOPY (WRVU 2.09) 11/09/2024 10:00 AM EST Laboratory Appointment [place] [facility] [place] [address] [place] [phone] 11/09/2024 11:00 AM EST Office Visit Hematology [place] [phone] Faith Caba MD [facility] [place] [address] 11/09/2024 12:00 PM EST Appointment Hematology [place] [phone] Scheduled Procedures Name Priority Associated Diagnoses Date/Ti me EGD, UPPER GI ENDOSCOPY (WRVU 2.09) Gastroesophageal reflux disease with esophagitis, unspecified whether hemorrhage 09/29/2024 4:30 PM EST documented as of this encounter Goals Goal Patient Goal Type Associated Problems Recent Progress Patient-Stated? Author [facility] Medication Compliance and Understanding Patient Facing Action Plan Curly Nicolas, [facility] Note: The patient? s goal is to continue positive results of oral chemotherapy by maintaining improved labs PSA or stable scans in clinic for the upcoming year. documented as of this encounter Results * PSA (Ultrasensitive) (07/10/2022 8:47 AM EDT) Prostate Specific Antigen (Ultrasensitive) <0.01 0.00 - 4.00 ng/mL [facility] Comment: PLEASE NOTE: The [...] In Lab Faith Caba MD CHEMISTRY ORDERABLES [facility] [place] [address] * Comprehensive metabolic panel (non-fasting) (07/10/2022 8:47 AM EDT) Glucose 103 65 - 199 mg/dL [facility] Comment:Diabetes: >=200 mg/d L plus symptoms Blood Urea Nitrogen 20 10 - 20 mg/dL [facility] Creatinine 0.90 0.80 - 1.50 mg/dL [facility] Sodium 141 135 - 145 mmol/L [facility] Potassium 4.0 3.5 - 5.0 mmol/L [facility] Comment: Please note: ??Patients with WBC >100,000 may have falsely elevated Potassium levels. ??For accurate Potassium quantification in these patients send serum separator tube (gold top) for subsequent determinations. ??Contact the Clinical Chemistry Laboratory if there are any questions. Chloride 105 98 - 107 mmol/L [facility] Carbon Dioxide 26 22 - 31 mmol/L [facility] Anion Gap 10 5 - 15 mmol/L [facility] Calcium 9.0 8.5 - 10.5 mg/dL [facility] Protein, Total 6.5 6.1 - 8.0 g/dL [facility] Albumin 4.3 3.2 - 5.2 g/dL [facility] Aspartate Aminotransferase 16 0 - 39 unit/L [facility] Alanine Aminotransferase 10 0 - 55 unit/L [facility] Alkaline Phosphatase 97 40 - 130 unit/L [facility] Bilirubin, Total 0.9 0.2 - 1.3 mg/dL [facility] Est Glomerular Filtration Rate 88 >=60 mL/min/1. 73 m?? 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
--- OUTSIDE RECORDS SUMMARY | 2024-09-11 15:24 | XMS_ITS | Encounter Summary ---
Author Organization [facility] [place] [address] Care Team Providers Care Tank Farm Operator Name Role Phone Kennedi Shaver MD Primary Care Provider [phone] Encounter Details Date Type Department Care Team (Latest Contact Info) Description 01/09/2022 9:08 AM EDT - 01/09/2022 9:11 AM EDT Hospital Encounter Hematology [place] [address] Neoplasm of prostate, distant metastasis staging category [...] 4:30 PM EST Hospital En[place] [address] Lizet Wilkes MD [facility] [place] [address] 09/29/2024 4:30 PM EST - 09/29/2024 5:00 PM EST [place] [address] Lizet Wilkes MD [facility] [place] [address] EGD, UPPER GI ENDOSCOPY (WRVU 2.09) 11/09/2024 10:00 AM EST Laboratory Appointment Lab at [facility] [place] Hematology Oncology [address] [place] [phone] 11/09/2024 11:00 AM EST Office Visit Hematology [place] [address] Faith Caba MD [facility] [place] [address] 11/09/2024 12:00 PM EST Appointment Hematology [place] [address] Scheduled Procedures Name Priority Associated Diagnoses Date/Ti me EGD, UPPER GI ENDOSCOPY (WRVU 2.09) Gastroesophageal reflux disease with esophagitis, unspecified whether hemorrhage 09/29/2024 4:30 PM EST documented as of this encounter Goals Goal Patient Goal Type Associated Problems Recent Progress Patient-Stated? Author [facility] Medication Compliance and Understanding Patient Facing Action Plan Curly Nicolas, [facility] Note: The patient? s goal is to continue positive results of oral chemotherapy by maintaining improved labs PSA or stable scans in clinic for the upcoming year. documented as of this encounter Procedures Procedure Name Priority Date/Time Associated Diagnosis Comments HEMOGRAM Routine 01/09/2022 9:35 AM EDT Neoplasm of prostate, 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 DIFFERENTIAL, AUTOMATED Routine 01/09/2022 9:35 AM EDT Neoplasm of prostate, 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 HC VENIPUNCTURE Routine 01/09/2022 9:35 AM EDT Neoplasm of prostate, 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 HC PROSTATE SPECIFIC ANTIGEN Routine 01/09/2022 9:35 AM EDT Neoplasm of prostate, 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 COMPREHENSIVE METABOLIC PANEL Routine 01/09/2022 9:35 AM EDT Neoplasm of prostate, 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 documented in this encounter Results * Differential, Automated (01/09/2022 9:35 AM EDT) Pathologist [facility] Neutrophil % 72.1 % [facility] Neutrophil Absolute 4.54 1.70 - 6.10 x10(3)/[facility] Lymph % 15.1 % [facility] Lymphocytes Abs 1.0 0.9 - 3.2 x10(3)/[facility] Monocyte % 9.9 % [facility] Monocyte Abs 0.6 0.3 - 0.9 x10(3)/[facility] Eos % 2.1 % [facility] Eosinophils Abs 0.1 0.0 - 0.4 x10(3)/[facility] Basophil % 0.5 % [facility] Baso Absolute 0.0 0.0 - 0.1 x10(3)/[facility] Immature Gran % 0.30 % [facility] Comment: Immature granulocytes(IG's)percentage and absolute count will include metamyelocytes, myelocytes, and promyelocytes. Blood smears from CBCs yielding IG's will be scanned manually for concordance. If this scan disagrees with the automated IG or if promyelocytes are noted, a manual differential will be performed. Immature Gran Absolute 0.02 0.00 - 0.04 x10(3)/[facility] Blood 01/09/2022 9:35 AM EDT 01/09/2022 9:42 AM EDT Narrative Resulting Agency Comment Spec In Lab Deborah Hector STOCK PARTS INSPECTOR HEMATOLOGY ORDERAB LES [facility] [place] [address] * (ABNORMAL) Hemogram (01/09/2022 9:35 AM EDT) Pathologist [facility] White Blood Cell 6.3 4.0 - 9.5 x10(3)/ L [facility] Red Blood Cell 4.08(L) 4.58 - 5.54 x10(6)/ L [facility] Hemoglobin 12.8(L) 13.7 - 16.5 g/dL [facility] Hematocrit 37.0(L) 40.5 - 48.5 % [facility] Mean Cell Volume 90.7 82.9 - 93.1 fL [facility] Mean Cell Hemoglobin 31.4 27.5 - 32.1 pg [facility] Mean Cell Hemoglobin Concentration 34.6 32.0 - 35.7 g/dL [facility] Platelet 229 145 - 357 x10(3)/[facility] RDW Standard Deviation 42.3 36.0 - 45.0 [facility] RDW coefficient of variation 12.9 11.4 - 13.8 % [facility] Mean Platelet Volume 10.0 7.6 - 12.9 [facility] NRBC% auto 0.0 % [facility] NRBC Absolute 0.000 0.000 - 0.000 x10(3)/[facility] Blood 01/09/2022 9:35 AM EDT 01/09/2022 9:42 AM EDT Narrative Resulting Agency Comment Spec In Lab Deborah Hector STOCK PARTS INSPECTOR HEMATOLOGY ORDERAB LES Performing Organization Address City/State/[facility] Co de Phone Number [facility] [place] [address] * PSA (Ultrasensitive) (01/09/2022 9:35 AM EDT) Prostate Specific Antigen (Ultrasensitive ) <0.01 0.00 - 4.00 ng/mL [facility] Comment: PLEASE NOTE: The above reference interval is intended for healthy males with an intact prostate. Values within this reference interval may indicate recurrence in men who have undergone radical prostatectomy. Blood 01/09/2022 9:35 AM EDT 01/09/2022 9:42 AM EDT Narrative Resulting Agency Comment Spec In Lab Deborah Hector STOCK PARTS INSPECTOR CHEMISTRY ORDERABL ES [facility] [place] [address] * Comprehensive metabolic panel (non-fasting) (01/09/2022 9:35 AM EDT) Glucose 115 65 - 199 mg/dL [facility] Comment:Diabetes: >=200 mg/d L plus symptoms Blood Urea Nitrogen 17 10 - 20 mg/dL [facility] Creatinine 0.93 0.80 - 1.50 mg/dL [facility] Sodium 139 135 - 145 mmol/L [facility] Potassium 4.1 3.5 - 5.0 mmol/L [facility] Comment: Please note: ??Patients with WBC >100,000 may have falsely elevated Potassium levels. ??For accurate Potassium quantification in these patients send serum separator tube (gold top) for subsequent determinations. ??Contact the Clinical Chemistry Laboratory if there are any questions. Chloride 104 98 - 107 mmol/L [facility] Carbon Dioxide 24 22 - 31 mmol/L [facility] Anion Gap 11 5 - 15 mmol/L [facility] Calcium 9.4 8.5 - 10.5 mg/dL [facility] Protein, Total 6.4 6.1 - 8.0 g/dL [facility] Albumin 4.3 3.2 - 5.2 g/dL [facility] Aspartate Aminotransferase 16 0 - 39 unit/L [facility] Alanine Aminotransferase 10 0 - 55 unit/L [facility] Alkaline Phosphatase 99 40 - 130 unit/L [facility] Bilirubin, Total 0.8 0.2 - 1.3 mg/dL [facility] Est Glomerular Filtration Rate 79 >=60 mL/min/1. 73 m?? [facility] Comment: This patient? s [...] Lab Deborah Hector APRN CHEMISTRY ORDERABL ES [facility] [place] [id number] documented in this encounter Visit Diagnoses Diagnosis Neoplasm of prostate, 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 Gastroesophageal reflux disease with esophagitis, unspecified whether hemorrhage documented in this encounter Care Teams Tank Farm Operator Relationship Specialty Start Date End Date Kennedi Shaver MD [address] [place] [address] PCP - General Family Medicine 08/02/20 06/24/24 documented as of this encounter
--- OUTSIDE RECORDS SUMMARY | 2024-09-11 15:24 | XMS_ITS | Encounter Summary ---
Author Organization [facility] [place] [address] Care Team Providers Care Crime Scene Investigator Name Role Phone Kennedi Shaver MD Primary Care Provider [phone] Encounter Details Date Type Department Care Team (Latest Contact Info) Description 08/14/2022 Travel Social History Tobacco Use Types Packs/Day [...] 4:30 PM EST Hospital En[place] [address] Lizet Wilkes MD [facility] [place] [address] 09/29/2024 4:30 PM EST - 09/29/2024 5:00 PM EST Surgery [place] [address] Lizet Wilkes MD [facility] [place] [address] EGD, UPPER GI ENDOSCOPY (WRVU 2.09) 11/09/2024 10:00 AM EST Laboratory Appointment Lab at [facility] Hematology Oncology [address] [place] [address] 11/09/2024 11:00 AM EST Office Visit Hematology and Oncology at [place] [address] Faith Caba MD [facility] [address] [place] [address] 11/09/2024 12:00 PM EST Appointment Hematology and Oncology at [place] [address] Scheduled Procedures Name Priority Associated Diagnoses Date/Ti me EGD, UPPER GI ENDOSCOPY (WRVU 2.09) Gastroesophageal reflux disease with esophagitis, unspecified whether hemorrhage 09/29/2024 4:30 PM EST documented as of this encounter Goals Goal Patient Goal Type Associated Problems Recent Progress Patient-Stated? Author [facility] Medication Compliance and Understanding Patient Facing Action Plan Curly Nicolas, [facility] Note: The patient? s goal is to continue positive results of oral chemotherapy by maintaining improved labs PSA or stable scans in clinic for the upcoming year. documented as of this encounter Visit Diagnoses Not on filedocumented in this encounter Care Teams Crime Scene Investigator Relationship Specialty Start Date End Date Kennedi Shaver MD [facility] [address] [place] [address] PCP - General Family Medicine 08/02/20 06/24/24 documented as of this encounter
--- OUTSIDE RECORDS SUMMARY | 2024-09-11 15:24 | XMS_ITS | Encounter Summary ---
[facility] [place] [address] Care Team Providers Care Porcelain Enameler Name Role Phone Kennedi Shaver MD Primary Care Provider [phone] Reason for Visit * Auth/Cert (Routine) Specialty Diagnoses / Procedures Referred By Blaine peralta Referred To Contact Diagnoses GI bleed Martha Soto MD [facility] [address] [facility] Referral ID Status Reason Start Date Expiration Date Visits Re quested Visits Authorized [id number] 1 1 Encounter Details Date Type Department Care Team (Late st Contact Info) Description 08/15/2022 11:30 AM EST - 08/15/2022 12:00 PM EST [place] [address] Bubba Wallace MD [facility] [place] [address] EGD, UPPER GI ENDOSCOPY (WRVU 2.09) Social [...] Sign Reading Time Taken Comments Blood Pressure 143/74 08/15/2022 11:51 AM EST Pulse 62 08/15/2022 11:51 AM EST Temperature 36.1 ??C (97 ??F) 08/15/2022 11:51 AM EST Respiratory Rate 18 08/15/2022 11:51 AM EST Oxygen Saturation 97% 08/15/2022 11:51 AM EST Inhaled Oxygen Concentration - - Weight 80.7 kg (178 lb) 08/14/2022 9:32 PM EST Height 177.8 cm (5' 10) 08/14/2022 9:32 PM EST Body Mass Index 25.54 08/16/2022 2:12 PM EST documented in this encounter Discharge Summaries * Harrison Rose MD - 08/17/2022 10:11 AM EST Inpatient - Discharge Summary Patient Name: Chidi Carbone Patient Age: 76 y.o. Birthdate: 1945 Admit date: 08/14/2022 Discharge date and time: 08/17/2022 Attending Physician: Martha Soto MD Code Status: Full Code Follow-up [...] later before seeking medical attention at [facility] [place]. Patient was found to have hgb of [...] Department Center 10/16/2022 9:00 AM LABORATORY, TECH [facility] INF 3K [facility] 10/16/2022 10:00 AM Faith Caba MD [facility] HEM ONC [facility] 10/16/2022 11:00 AM ACCESS ROOM [address] Date and Time Provider and Specialty Location 08/24/2022 at 10:40am Kennedi Shaver MD , PCP [address] / [facility] [id number] Your Inpatient Doctor(s) at [facility]: MD Harrison Fay MD Your Primary Care Provider: MD [address] / [facility] [id number] For questions regarding this document or issues relating to this hospitalization on the Hospital Medicine Service, please contact the on-call Hospitalist through the [facility] Switch Repairer . DO NOT attempt to contact your care team through the nurse's station. General Instructions [facility] Interventional Radiology Post Angiography Instructions Procedure: [...] or hoildays, call and ask for the residential solar sales consultant information clerk cashier. OR Vascular Department at until 4:45pm. After 4:45pm call and ask for the Vascular resident information clerk cashier. 10. If you are a diabetic and [...] AM LABORATORY, TECH Hematology and Oncology at [facility] Arrive at: [facility] [phone] 10/16/2022 10:00 AM Faith Caba MD Hematology and Oncology at [facility] Arrive at: [facility] 3K [phone] 10/16/2022 11:00 AM ACCESS ROOM Hematology and Oncology at [facility] Arrive at: [facility] 3K [phone] Provider Contact Information: MD Joshua [address] / [facility] [id number] Discharge References/Attachments: Discharge References/Attachments None documented in this encounter Discharge Instructions * Discharge Instructions* Sintia Carpio RN - 08/15/2022 7:52 AM EST [facility] Interventional Radiology Post Angiography Instructions Procedure: [...] or hoildays, call and ask for the residential solar sales consultant information clerk cashier. OR Vascular Department at until 4:45pm. After 4:45pm call and ask for the Vascular resident information clerk cashier. 10. If you are a diabetic and [...] Department Center 10/16/2022 9:00 AM LABORATORY, TECH [facility] INF 3K [facility] 10/16/2022 10:00 AM Faith Caba MD [facility] HEM ONC [facility] 10/16/2022 11:00 AM ACCESS ROOM [facility] INF 3K [facility] Date and Time Provider and Specialty Location 08/24/2022 at 10:40am Kennedi Shaver MD , PCP [address] / [facility] [id number] Your Inpatient Doctor(s) at [facility]: MD Harrison Fay MD Your Primary Care Provider: MD Joshua [address] / [facility] [id number] For questions regarding this document or issues relating to this hospitalization on the Hospital Medicine Service, please contact the on-call Hospitalist through the [facility] Switch Repairer . DO NOT attempt to contact your [...] as of this encounter Progress Notes * Martha Soto MD - 08/17/2022 5:47 PM EST [...] spent <30 minutes (Day of Discharge Code 20840) involved in the final examination of the patient, discussion of the hospital stay, instructions for continuing care to all relevant caregivers, and preparation of discharge records, prescriptions and referral forms. Plans ? Discharge to home ? Follow-up scheduled with PCP ? Please see the Discharge Summary for complete details of any medication changes and additional plans. MARTHA SOTO MD 08/24/2022 * Faye Sahu RN [...] concerns. Olesya CHOIC Interventional Radiology IR Provider #[id number] * Systrom, Emani Pillai MD - 08/17/2022 6:46 AM EST Images from the original note were not included. DIVISION OF GASTROENTEROLOGY & HEPATOLOGY CONSULT PROGRESS NOTE REQUESTING PROVIDER: Martha Soto MD NAME: Chidi Carbone : 1945 [...] IR Arteriogram Mesenteric 08/15/2022 Santo Duarte MD [facility] INTERVENTIONL RAD ??? PRO COLONOSCOPY, DIAGNOSTIC N/A 04/19/2015 COLONOSCOPY, DIAGNOSTIC performed by Nino Rocha MD at [facility] ENDOSCOPY ??? PRO DRESSING CHANGE UNDER ANESTHESIA N/A 06/04/2019 DRESSING CHANGE (FOR OTHER THAN RAUSCH) UNDER ANES. (WRVU 0.86) performed by Rodri Villa MD at [facility] MAIN OR ? ? PRO EDG FLEXIBLE TRANSORAL ABLATE TUMOR POLYP/LESION W/DILATION & WIRE N/A 04/19/2015 EGD, TRANSORAL; WITH ABLATION OF TUMOR(S), POLYP(S), OR OTHER LESION(S) performed by Nino Rocha MD at [facility] ENDOSCOPY ??? PRO LAP, ESOPHAGOGAST FUNDOPLASTY 03/08/2014 LAPAROSCOPIC MODESTO FUNDOPLASTY performed by Surendra Garcia MD at [facility] MAIN OR ??? PRO PREP SITE TRUNK/ARM/LEG 1ST 100 SQ CM/1PCT Right 06/04/2019 SURGICAL PREP/CREATION RECIPIENT SITE, FIRST 100 SQ CM, LEGS (WRVU 3.65) performed by Rodri Villa MD at [facility] MAIN OR ? ? PRO SPLIT GRFT TRUNK, ARM, LEG <100SQCM Right 06/04/2019 SPLIT THICK SKIN GRAFT,100 SQ CM OR LESS, LEGS (WRVU 9.9) performed by Rodri Villa MD at [facility] MAIN OR ??? PRO UPPER GI ENDOSCOPY, BIOPSY 11/27/2011 UPPER GASTROINTESTINAL ENDOSCOPY,WITH BIOPSY SINGLE OR MULTIPLE performed by NINO ROCHA I at [facility] ENDOSCOPY ??? PRO UPPER GI ENDOSCOPY, BIOPSY 04/22/2012 UPPER GASTROINTESTINAL ENDOSCOPY,WITH BIOPSY SINGLE OR MULTIPLE performed by NINO ROCHA I at [facility] ENDOSCOPY ??? PRO UPPER GI ENDOSCOPY, BIOPSY 05/12/2013 UPPER GASTROINTESTINAL ENDOSCOPY,WITH BIOPSY SINGLE OR MULTIPLE performed by Nino Rocha MD at [facility] ENDOSCOPY ??? PRO UPPER GI ENDOSCOPY, BIOPSY 10/20/2013 UPPER GASTROINTESTINAL ENDOSCOPY,WITH BIOPSY SINGLE OR MULTIPLE performed by Nino Rocha MD at [facility] ENDOSCOPY ??? PRO UPPER GI ENDOSCOPY, BIOPSY N/A 06/29/2015 EGD WITH BIOPSY performed by Nino Rocha MD at [facility] ENDOSCOPY ??? PRO UPPER GI ENDOSCOPY, DIAGNOSTIC N/A 08/15/2022 EGD, UPPER GI ENDOSCOPY performed by Bubba Wallace MD at [facility] ENDOSCOPY ??? UPPER GI ENDOSCOPY, EXAM 02/13/2011 UPPER GI ENDOSCOPY performed by NINO ROCHA I at [facility] ENDOSCOPY ??? UPPER GI ENDOSCOPY, EXAM 05/12/2013 UPPER GI ENDOSCOPY performed by Nino Rocha MD at [facility] ENDOSCOPY ??? UPPER GI ENDOSCOPY, EXAM N/A 04/19/2015 UPPER GI ENDOSCOPY performed by Nino Rocha MD at [facility] ENDOSCOPY ??? UPPER GI ENDOSCOPY, TUMOR ABLATN 04/22/2012 ENDOSCOPY, UPPER GI, W\ABLATION TUMOR\POLYP\LESION performed by NINO ROCHA I at [facility] ENDOSCOPY SOCIAL HX: Social History [...] questions please contact the health home care specialist that requested your imaging first. Electronically signed by: Santo Duarte MD, [facility] ([phone]), at 08/15/2022 4:[address] Abdomen & [...] questions please contact the health home care specialist that requested your imaging first. Electronically signed by: Tr Rivera MD, [facility] ([phone]), at 08/15/2022 7:44 AM ENDOSCOPY: Reports and [...] puncture, dressing intact; scattered scarring Tele: N/A Curator Of Collections: N/A Progress Note: A/Ox4, VSS. Fall precautions [...] indirect monitoring]: JIGNESH Stevenson, bed alarm * Martha Soto MD - 08/16/2022 7:17 AM EST [...] in the last 7068 hours. Invalid input(s): [id number] No results for input(s): HA1C in the [...] Physical findings, Assessment and Plan of care. MARTHA SOTO MD 08/16/2022 * Olesya Zimmerman PA [...] B/L ABD Non tender, nondistended ACCESS R SLATER APPRENTICE- Clean, dry and intact, no surrounding erythema, [...] concerns. Olesya CHOIC Interventional Radiology IR Provider #[id number] * Systrom, Emani Pillai MD - 08/16/2022 6:09 AM EST Images from the original note were not included. DIVISION OF GASTROENTEROLOGY & HEPATOLOGY CONSULT PROGRESS NOTE REQUESTING PROVIDER: Martha Soto MD NAME: Chidi Carbone : 1945 [...] IR Arteriogram Mesenteric 08/15/2022 Santo Duarte MD [facility] INTERVENTIONL RAD ??? PRO COLONOSCOPY, DIAGNOSTIC N/A 04/19/2015 COLONOSCOPY, DIAGNOSTIC performed by Nino Rocha MD at [facility] ENDOSCOPY ??? PRO DRESSING CHANGE UNDER ANESTHESIA N/A 06/04/2019 DRESSING CHANGE (FOR OTHER THAN RAUSCH) UNDER ANES. (WRVU 0.86) performed by Rodri Villa MD at [facility] MAIN OR ? ? PRO EDG FLEXIBLE TRANSORAL ABLATE TUMOR POLYP/LESION W/DILATION & WIRE N/A 04/19/2015 EGD, TRANSORAL; WITH ABLATION OF TUMOR(S), POLYP(S), OR OTHER LESION(S) performed by Nino Rocha MD at [facility] ENDOSCOPY ??? PRO LAP, ESOPHAGOGAST FUNDOPLASTY 03/08/2014 LAPAROSCOPIC MODESTO FUNDOPLASTY performed by Surendra Garcia MD at [facility] MAIN OR ??? PRO PREP SITE TRUNK/ARM/LEG 1ST 100 SQ CM/1PCT Right 06/04/2019 SURGICAL PREP/CREATION RECIPIENT SITE, FIRST 100 SQ CM, LEGS (WRVU 3.65) performed by Rodri Villa MD at [facility] MAIN OR ? ? PRO SPLIT GRFT TRUNK, ARM, LEG <100SQCM Right 06/04/2019 SPLIT THICK SKIN GRAFT,100 SQ CM OR LESS, LEGS (WRVU 9.9) performed by Rodri Villa MD at [facility] MAIN OR ??? PRO UPPER GI ENDOSCOPY, BIOPSY 11/27/2011 UPPER GASTROINTESTINAL ENDOSCOPY,WITH BIOPSY SINGLE OR MULTIPLE performed by NINO ROCHA I at [facility] ENDOSCOPY ??? PRO UPPER GI ENDOSCOPY, BIOPSY 04/22/2012 UPPER GASTROINTESTINAL ENDOSCOPY,WITH BIOPSY SINGLE OR MULTIPLE performed by NINO ROCHA I at [facility] ENDOSCOPY ??? PRO UPPER GI ENDOSCOPY, BIOPSY 05/12/2013 UPPER GASTROINTESTINAL ENDOSCOPY,WITH BIOPSY SINGLE OR MULTIPLE performed by Nino Rocha MD at [facility] ENDOSCOPY ??? PRO UPPER GI ENDOSCOPY, BIOPSY 10/20/2013 UPPER GASTROINTESTINAL ENDOSCOPY,WITH BIOPSY SINGLE OR MULTIPLE performed by Nino Rocha MD at [facility] ENDOSCOPY ??? PRO UPPER GI ENDOSCOPY, BIOPSY N/A 06/29/2015 EGD WITH BIOPSY performed by Nino Rocha MD at [facility] ENDOSCOPY ??? UPPER GI ENDOSCOPY, EXAM 02/13/2011 UPPER GI ENDOSCOPY performed by NINO ROCHA I at [facility] ENDOSCOPY ??? UPPER GI ENDOSCOPY, EXAM 05/12/2013 UPPER GI ENDOSCOPY performed by Nino Rocha MD at [facility] ENDOSCOPY ??? UPPER GI ENDOSCOPY, EXAM N/A 04/19/2015 UPPER GI ENDOSCOPY performed by Nino Rocha MD at [facility] ENDOSCOPY ??? UPPER GI ENDOSCOPY, TUMOR ABLATN 04/22/2012 ENDOSCOPY, UPPER GI, W\ABLATION TUMOR\POLYP\LESION performed by NINO ROCHA I at [facility] ENDOSCOPY SOCIAL HX: Social History [...] questions please contact the health home care specialist that requested your imaging first. Electronically signed by: Santo Duarte MD, [facility] ([phone]), at 08/15/2022 4:[address] Abdomen & [...] questions please contact the health home care specialist that requested your imaging first. Electronically signed by: Tr Rivera MD, [facility] ([phone]), at 08/15/2022 7:44 AM ENDOSCOPY: Reports and [...] Martinez prado - 08/15/2022 2:50 PM EST Client Integration Manager Encounter Note Patient Name: Chidi Carbone : [id number] MR#: [id number] Admit Date: 08/14/2022 11:40 AM Hospital Day 1 day Narrative:Visited to introduce and assess acceptance of Client Integration Manager services. Assessment: Patient was awake, alert, oriented and in bed. Patient coping positively with stresses of illness/hospitalization at this time. Patient says that he is hoping to get better and has familycare and support and seems to be thankful. Intervention and Outcome:Provided emotional, spiritual support and listening presence. Client Integration Manager services accepted. Conversation to build trusting relationship. Provided pastoral presence. Provided spiritual guidance. Follow-up: yes Time in Direct Care:10 Mins Martinez Galaviz 08/15/2022 * Sintia Carpio RN - 08/15/2022 6:31 AM EST ANGIO NURSING DATABASE Name: Chidi Carbone Date of : 1945 AGE: 76 y.o. Address: [address] [address] (home) Mobile: Telephone Information: Referring Provider: No [...] Component Value Date PLATELET 213 08/14/2022 * Martha Soto MD - 08/15/2022 6:23 AM EST [...] in the last 7068 hours. Invalid input(s): [id number] No results for input(s): HA1C in the [...] NPO other than prep/meds with sips. At [place], patient should be strict NPO. - Night [...] Physical findings, Assessment and Plan of care. MARTHA SOTO MD 08/16/2022 * Systrom, Emani Pillai MD - 08/15/2022 5:51 AM EST Images from the original note were not included. DIVISION OF GASTROENTEROLOGY & HEPATOLOGY CONSULT PROGRESS NOTE REQUESTING PROVIDER: Martha Soto MD NAME: Chidi Carbone : 1945 [...] DIAGNOSTIC performed by Nino Rocha MD at [facility] ENDOSCOPY ??? PRO DRESSING CHANGE UNDER ANESTHESIA N/A 06/04/2019 DRESSING CHANGE (FOR OTHER THAN RAUSCH) UNDER ANES. (WRVU 0.86) performed by Rodri Villa MD at [facility] MAIN OR ? ? PRO EDG FLEXIBLE TRANSORAL ABLATE TUMOR POLYP/LESION W/DILATION & WIRE N/A 04/19/2015 EGD, TRANSORAL; WITH ABLATION OF TUMOR(S), POLYP(S), OR OTHER LESION(S) performed by Nino Rocha MD at [facility] ENDOSCOPY ??? PRO LAP, ESOPHAGOGAST FUNDOPLASTY 03/08/2014 LAPAROSCOPIC MODESTO FUNDOPLASTY performed by Surendra Garcia MD at [facility] MAIN OR ??? PRO PREP SITE TRUNK/ARM/LEG 1ST 100 SQ CM/1PCT Right 06/04/2019 SURGICAL PREP/CREATION RECIPIENT SITE, FIRST 100 SQ CM, LEGS (WRVU 3.65) performed by Rodri Villa MD at [facility] MAIN OR ? ? PRO SPLIT GRFT TRUNK, ARM, LEG <100SQCM Right 06/04/2019 SPLIT THICK SKIN GRAFT,100 SQ CM OR LESS, LEGS (WRVU 9.9) performed by Rodri Villa MD at [facility] MAIN OR ??? PRO UPPER GI ENDOSCOPY, BIOPSY 11/27/2011 UPPER GASTROINTESTINAL ENDOSCOPY,WITH BIOPSY SINGLE OR MULTIPLE performed by NINO ROCHA I at [facility] ENDOSCOPY ??? PRO UPPER GI ENDOSCOPY, BIOPSY 04/22/2012 UPPER GASTROINTESTINAL ENDOSCOPY,WITH BIOPSY SINGLE OR MULTIPLE performed by NINO ROCHA I at [facility] ENDOSCOPY ??? PRO UPPER GI ENDOSCOPY, BIOPSY 05/12/2013 UPPER GASTROINTESTINAL ENDOSCOPY,WITH BIOPSY SINGLE OR MULTIPLE performed by Nino Rocha MD at [facility] ENDOSCOPY ??? PRO UPPER GI ENDOSCOPY, BIOPSY 10/20/2013 UPPER GASTROINTESTINAL ENDOSCOPY,WITH BIOPSY SINGLE OR MULTIPLE performed by Nino Rocha MD at [facility] ENDOSCOPY ??? PRO UPPER GI ENDOSCOPY, BIOPSY N/A 06/29/2015 EGD WITH BIOPSY performed by Nino Rocha MD at [facility] ENDOSCOPY ??? UPPER GI ENDOSCOPY, EXAM 02/13/2011 UPPER GI ENDOSCOPY performed by NINO ROCHA I at [facility] ENDOSCOPY ??? UPPER GI ENDOSCOPY, EXAM 05/12/2013 UPPER GI ENDOSCOPY performed by Nino Rocha MD at [facility] ENDOSCOPY ??? UPPER GI ENDOSCOPY, EXAM N/A 04/19/2015 UPPER GI ENDOSCOPY performed by Nino Rocha MD at [facility] ENDOSCOPY ??? UPPER GI ENDOSCOPY, TUMOR ABLATN 04/22/2012 ENDOSCOPY, UPPER GI, W\ABLATION TUMOR\POLYP\LESION performed by NINO ROCHA I at [facility] ENDOSCOPY SOCIAL HX: Social History [...] appropriate affect Labs: Labs personally reviewed in [facility] CBC: Recent Labs 08/15/22 0050 08/14/22 2213 [...] [facility]. Patient was found to have hgb [...] any further questions or concerns pager # [phone] Rodri Felix RN 12:22 AM August 15, [...] DIAGNOSTIC performed by Nino Rocha MD at [facility] ENDOSCOPY ??? PRO DRESSING CHANGE UNDER ANESTHESIA N/A 06/04/2019 DRESSING CHANGE (FOR OTHER THAN RAUSCH) UNDER ANES. (WRVU 0.86) performed by Rodri Villa MD at [facility] MAIN OR ? ? PRO EDG FLEXIBLE TRANSORAL ABLATE TUMOR POLYP/LESION W/DILATION & WIRE N/A 04/19/2015 EGD, TRANSORAL; WITH ABLATION OF TUMOR(S), POLYP(S), OR OTHER LESION(S) performed by Nino Rocha MD at [facility] ENDOSCOPY ??? PRO LAP, ESOPHAGOGAST FUNDOPLASTY 03/08/2014 LAPAROSCOPIC MODESTO FUNDOPLASTY performed by Surendra Garcia MD at [facility] MAIN OR ??? PRO PREP SITE TRUNK/ARM/LEG 1ST 100 SQ CM/1PCT Right 06/04/2019 SURGICAL PREP/CREATION RECIPIENT SITE, FIRST 100 SQ CM, LEGS (WRVU 3.65) performed by Rodri Villa MD at [facility] MAIN OR ? ? PRO SPLIT GRFT TRUNK, ARM, LEG <100SQCM Right 06/04/2019 SPLIT THICK SKIN GRAFT,100 SQ CM OR LESS, LEGS (WRVU 9.9) performed by Rodri Villa MD at [facility] MAIN OR ??? PRO UPPER GI ENDOSCOPY, BIOPSY 11/27/2011 UPPER GASTROINTESTINAL ENDOSCOPY,WITH BIOPSY SINGLE OR MULTIPLE performed by NINO ROCHA I at [facility] ENDOSCOPY ??? PRO UPPER GI ENDOSCOPY, BIOPSY 04/22/2012 UPPER GASTROINTESTINAL ENDOSCOPY,WITH BIOPSY SINGLE OR MULTIPLE performed by NINO ROCHA I at [facility] ENDOSCOPY ??? PRO UPPER GI ENDOSCOPY, BIOPSY 05/12/2013 UPPER GASTROINTESTINAL ENDOSCOPY,WITH BIOPSY SINGLE OR MULTIPLE performed by Nino Rocha MD at [facility] ENDOSCOPY ??? PRO UPPER GI ENDOSCOPY, BIOPSY 10/20/2013 UPPER GASTROINTESTINAL ENDOSCOPY,WITH BIOPSY SINGLE OR MULTIPLE performed by Nino Rocha MD at [facility] ENDOSCOPY ??? PRO UPPER GI ENDOSCOPY, BIOPSY N/A 06/29/2015 EGD WITH BIOPSY performed by Nino Rocha MD at [facility] ENDOSCOPY ??? UPPER GI ENDOSCOPY, EXAM 02/13/2011 UPPER GI ENDOSCOPY performed by NINO ROCHA I at [facility] ENDOSCOPY ??? UPPER GI ENDOSCOPY, EXAM 05/12/2013 UPPER GI ENDOSCOPY performed by Nino Rocha MD at [facility] ENDOSCOPY ??? UPPER GI ENDOSCOPY, EXAM N/A 04/19/2015 UPPER GI ENDOSCOPY performed by Nino Rocha MD at [facility] ENDOSCOPY ??? UPPER GI ENDOSCOPY, TUMOR ABLATN 04/22/2012 ENDOSCOPY, UPPER GI, W\ABLATION TUMOR\POLYP\LESION performed by NINO ROCHA I at [facility] ENDOSCOPY Medications: No current facility-administered [...] As for recent hx, he presented to [place] on 08/09 with rectal bleeding and abdominal pain. At thattime, he felt light-headed, weak, and had 1 episode of filling toilet bowl with blood. He had sharpLLQ pain associated with this. Hgb was 10 on arrival to [place], dropped to 8 during hospitalization - he [...] DIAGNOSTIC performed by Nino Rocha MD at [facility] ENDOSCOPY ??? PRO DRESSING CHANGE UNDER ANESTHESIA N/A 06/04/2019 DRESSING CHANGE (FOR OTHER THAN RAUSCH) UNDER ANES. (WRVU 0.86) performed by Rodri Villa MD at [facility] MAIN OR ? ? PRO EDG FLEXIBLE TRANSORAL ABLATE TUMOR POLYP/LESION W/DILATION & WIRE N/A 04/19/2015 EGD, TRANSORAL; WITH ABLATION OF TUMOR(S), POLYP(S), OR OTHER LESION(S) performed by Nino Rocha MD at [facility] ENDOSCOPY ??? PRO LAP, ESOPHAGOGAST FUNDOPLASTY 03/08/2014 LAPAROSCOPIC MODESTO FUNDOPLASTY performed by Surendra Garcia MD at [facility] MAIN OR ??? PRO PREP SITE TRUNK/ARM/LEG 1ST 100 SQ CM/1PCT Right 06/04/2019 SURGICAL PREP/CREATION RECIPIENT SITE, FIRST 100 SQ CM, LEGS (WRVU 3.65) performed by Rodri Villa MD at [facility] MAIN OR ? ? PRO SPLIT GRFT TRUNK, ARM, LEG <100SQCM Right 06/04/2019 SPLIT THICK SKIN GRAFT,100 SQ CM OR LESS, LEGS (WRVU 9.9) performed by Rodri Villa MD at [facility] MAIN OR ??? PRO UPPER GI ENDOSCOPY, BIOPSY 11/27/2011 UPPER GASTROINTESTINAL ENDOSCOPY,WITH BIOPSY SINGLE OR MULTIPLE performed by NINO ROCHA I at [facility] ENDOSCOPY ??? PRO UPPER GI ENDOSCOPY, BIOPSY 04/22/2012 UPPER GASTROINTESTINAL ENDOSCOPY,WITH BIOPSY SINGLE OR MULTIPLE performed by NINO ROCHA I at [facility] ENDOSCOPY ??? PRO UPPER GI ENDOSCOPY, BIOPSY 05/12/2013 UPPER GASTROINTESTINAL ENDOSCOPY,WITH BIOPSY SINGLE OR MULTIPLE performed by Nino Rocha MD at [facility] ENDOSCOPY ??? PRO UPPER GI ENDOSCOPY, BIOPSY 10/20/2013 UPPER GASTROINTESTINAL ENDOSCOPY,WITH BIOPSY SINGLE OR MULTIPLE performed by Nino Rocha MD at [facility] ENDOSCOPY ??? PRO UPPER GI ENDOSCOPY, BIOPSY N/A 06/29/2015 EGD WITH BIOPSY performed by Nino Rocha MD at [facility] ENDOSCOPY ??? UPPER GI ENDOSCOPY, EXAM 02/13/2011 UPPER GI ENDOSCOPY performed by NINO ROCHA I at [facility] ENDOSCOPY ??? UPPER GI ENDOSCOPY, EXAM 05/12/2013 UPPER GI ENDOSCOPY performed by Nino Rocha MD at [facility] ENDOSCOPY ??? UPPER GI ENDOSCOPY, EXAM N/A 04/19/2015 UPPER GI ENDOSCOPY performed by Nino Rocha MD at [facility] ENDOSCOPY ??? UPPER GI ENDOSCOPY, TUMOR ABLATN 04/22/2012 ENDOSCOPY, UPPER GI, W\ABLATION TUMOR\POLYP\LESION performed by NINO ROCHA I at [facility] ENDOSCOPY SOCIAL HX: Social History [...] evaluation. It is interesting that CT at [place] mentioned inflammation in intestines, and wonder if [...] NPO other than prep/meds with sips. At [place], patient should be strict NPO. - Night float to please check on prep at 1am and continue prep until clear Patient seen with Dr. Rodrigo Gray MD PGY-4, Gastroenterology * Martha Soto MD - 08/14/2022 3:22 PM EST Internal Medicine Admission History and Physical Patient Name: Chidi Carbone Service: Responsible Attending: Brittany Rose MD PCP: Kennedi Shaver MD PCP phone #: [phone] Chief Complaint: GIB History of Present Illness: Patient is a 76 y/o w/ PMHx of Metastatic prostatic cancer, bilateral knee OA here for bright red blood in stool. Patient first experienced sharp LLQ pain on 08/10 PM with subsequent bright red bloodin stool. Patient had an additional episode later before seeking medical attention at [facility] [place]. Patient was found to have hgb of [...] DIAGNOSTIC performed by Nino Rocha MD at [facility] ENDOSCOPY ??? PRO DRESSING CHANGE UNDER ANESTHESIA N/A 06/04/2019 DRESSING CHANGE (FOR OTHER THAN RAUSCH) UNDER ANES. (WRVU 0.86) performed by Rodri Villa MD at [facility] MAIN OR ? ? PRO EDG FLEXIBLE TRANSORAL ABLATE TUMOR POLYP/LESION W/DILATION & WIRE N/A 04/19/2015 EGD, TRANSORAL; WITH ABLATION OF TUMOR(S), POLYP(S), OR OTHER LESION(S) performed by Nino Rocha MD at [facility] ENDOSCOPY ??? PRO LAP, ESOPHAGOGAST FUNDOPLASTY 03/08/2014 LAPAROSCOPIC MODESTO FUNDOPLASTY performed by Surendra Garcia MD at [facility] MAIN OR ??? PRO PREP SITE TRUNK/ARM/LEG 1ST 100 SQ CM/1PCT Right 06/04/2019 SURGICAL PREP/CREATION RECIPIENT SITE, FIRST 100 SQ CM, LEGS (WRVU 3.65) performed by Rodri Villa MD at [facility] MAIN OR ? ? PRO SPLIT GRFT TRUNK, ARM, LEG <100SQCM Right 06/04/2019 SPLIT THICK SKIN GRAFT,100 SQ CM OR LESS, LEGS (WRVU 9.9) performed by Rodri Villa MD at [facility] MAIN OR ??? PRO UPPER GI ENDOSCOPY, BIOPSY 11/27/2011 UPPER GASTROINTESTINAL ENDOSCOPY,WITH BIOPSY SINGLE OR MULTIPLE performed by NINO ROCHA I at [facility] ENDOSCOPY ??? PRO UPPER GI ENDOSCOPY, BIOPSY 04/22/2012 UPPER GASTROINTESTINAL ENDOSCOPY,WITH BIOPSY SINGLE OR MULTIPLE performed by NINO ROCHA I at [facility] ENDOSCOPY ??? PRO UPPER GI ENDOSCOPY, BIOPSY 05/12/2013 UPPER GASTROINTESTINAL ENDOSCOPY,WITH BIOPSY SINGLE OR MULTIPLE performed by Nino Rocha MD at [facility] ENDOSCOPY ??? PRO UPPER GI ENDOSCOPY, BIOPSY 10/20/2013 UPPER GASTROINTESTINAL ENDOSCOPY,WITH BIOPSY SINGLE OR MULTIPLE performed by Nino Rocha MD at [facility] ENDOSCOPY ??? PRO UPPER GI ENDOSCOPY, BIOPSY N/A 06/29/2015 EGD WITH BIOPSY performed by Nino Rocha MD at [facility] ENDOSCOPY ??? UPPER GI ENDOSCOPY, EXAM 02/13/2011 UPPER GI ENDOSCOPY performed by NINO ROCHA I at [facility] ENDOSCOPY ??? UPPER GI ENDOSCOPY, EXAM 05/12/2013 UPPER GI ENDOSCOPY performed by Nino Rocha MD at [facility] ENDOSCOPY ??? UPPER GI ENDOSCOPY, EXAM N/A 04/19/2015 UPPER GI ENDOSCOPY performed by Nino Rocha MD at [facility] ENDOSCOPY ??? UPPER GI ENDOSCOPY, TUMOR ABLATN 04/22/2012 ENDOSCOPY, UPPER GI, W\ABLATION TUMOR\POLYP\LESION performed by NINO ROCHA I at [facility] ENDOSCOPY Family History: [...] ??? 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 Invalid input(s): [id number] Heme: No results for input(s): LDH, HAPTOGLOBIN, [...] Jacy Jordan MD Internal Medicine Pager # [phone] Attending Staff Admission Documentation I have examined the patient myself on 08/14/2022 and reviewed all labs and studies personally. Please see Dr. Jordan's documentation for details of the patient history of presentation and data. I have discussed, reviewed and agree with the documented history with ROS, physical findings, labs/studies, assessment and plan of care. MARTHA SOTO MD 08/15/2022 documented in this encounter [...] prompted him to present to outside hospital ([facility] in [place]), at which time hewas found to have a hemoglobin at presentation of approximately 10 and subsequently found to have adrop in hemoglobin to approximately 8. After approximately 24 hours of observation he was found to have a stable hemoglobin of still approximately 8 and discharged home with close return precautions.During his visit an abdominal CT was performed with requests placed to [facility] to share his resultsof the study with [facility] this afternoon. Patient subsequently noted fatigue and [...] with his . 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 Patient reports 1 martini and a glass [...] pt called the ambulance and went to [facility] and was discharged Saturday. Pt reported two bright red stool stools yesterday. Pt declines bloody stool Saturday and Saturday. Pt reports dizziness, short of breath, weakness and fatigue. Pt reported abdominal pain on Saturday before having a bowel movement but denies any abdominal pain since. * Jamison Ugarte DO - 08/14/2022 11:27 AM EST Telehealth [id number] Note: The following documentation is provided in my role as a TeleEmergency Physician and reflects a live audiovisual interaction. Brief HPI: Pt at [facility] Saturday- significant volume. Pt evaluated with labs. [...] cane - straight Home Address confirmed as: [facility] [address] [facility] [address] Social & Family Supports: All names listed below confirmed with patient as current and correct Extended Emergency Contact Information Primary Emergency Contact: PipeDanish Garcia Address: [facility] [address] [place] [address] [place] Mobile Relation: Spouse Secondary Emergency Contact: Pushpa Carbone Address: [address] [place] [address] [facility] Mobile Relation: Child Current Care Provided [...] Yes ; Prescription Coverage: Yes Preferred Pharmacy: [facility] - [place], [place] - [address] [facility] [address] [facility] [address] [id number] - [place], [place] - [address] [address] [id number] - [place], [place] - [address] [facility] [address] [facility] [address] [facility] - [place], [place] - [address] [facility] [address] [facility] [address] [place] Status: Patient is a : No Primary Care Provider: Kennedi Shaver MD [phone] Patient/Caregiver Goals of Treatment: Pt anticipates on [...] of care planning. Vandana Villavicencio RN, BSN ladle repairman Office of Care Management Pager: [phone] * Consult Note - Lily Francis RPH - 08/14/2022 4:24 PM EST Clinical Pharmacist Review; Lily Francis [facility], PharmD Geriatric ED Medication Reconciliation Patient: [...] mg 8 mg Intravenous Q8H PRN Harrison Roes MD ??? pantoprazole EC (Protonix) tablet 40 [...] As for recent hx, he presented to [facility] on 08/09 with rectal bleeding and abdominal pain. At thattime, he felt light-headed, weak, and had 1 episode of filling toilet bowl with blood. He had sharpLLQ pain associated with this. Hgb was 10 on arrival to [facility], dropped to 8 during hospitalization - he [...] DIAGNOSTIC performed by Nino Rocha MD at [facility] ENDOSCOPY ??? PRO DRESSING CHANGE UNDER ANESTHESIA N/A 06/04/2019 DRESSING CHANGE (FOR OTHER THAN RAUSCH) UNDER ANES. (WRVU 0.86) performed by Rodri Villa MD at [facility] MAIN OR ? ? PRO EDG FLEXIBLE TRANSORAL ABLATE TUMOR POLYP/LESION W/DILATION & WIRE N/A 04/19/2015 EGD, TRANSORAL; WITH ABLATION OF TUMOR(S), POLYP(S), OR OTHER LESION(S) performed by Nino Rocha MD at [facility] ENDOSCOPY ??? PRO LAP, ESOPHAGOGAST FUNDOPLASTY 03/08/2014 LAPAROSCOPIC MODESTO FUNDOPLASTY performed by Surendra Garcia MD at [facility] MAIN OR ??? PRO PREP SITE TRUNK/ARM/LEG 1ST 100 SQ CM/1PCT Right 06/04/2019 SURGICAL PREP/CREATION RECIPIENT SITE, FIRST 100 SQ CM, LEGS (WRVU 3.65) performed by Rodri Villa MD at [facility] MAIN OR ? ? PRO SPLIT GRFT TRUNK, ARM, LEG <100SQCM Right 06/04/2019 SPLIT THICK SKIN GRAFT,100 SQ CM OR LESS, LEGS (WRVU 9.9) performed by Rodri Villa MD at [facility] MAIN OR ??? PRO UPPER GI ENDOSCOPY, BIOPSY 11/27/2011 UPPER GASTROINTESTINAL ENDOSCOPY,WITH BIOPSY SINGLE OR MULTIPLE performed by NINO ROCHA I at [facility] ENDOSCOPY ??? PRO UPPER GI ENDOSCOPY, BIOPSY 04/22/2012 UPPER GASTROINTESTINAL ENDOSCOPY,WITH BIOPSY SINGLE OR MULTIPLE performed by NINO ROCHA I at [facility] ENDOSCOPY ??? PRO UPPER GI ENDOSCOPY, BIOPSY 05/12/2013 UPPER GASTROINTESTINAL ENDOSCOPY,WITH BIOPSY SINGLE OR MULTIPLE performed by Nino Rocha MD at [facility] ENDOSCOPY ??? PRO UPPER GI ENDOSCOPY, BIOPSY 10/20/2013 UPPER GASTROINTESTINAL ENDOSCOPY,WITH BIOPSY SINGLE OR MULTIPLE performed by Nino Rocha MD at [facility] ENDOSCOPY ??? PRO UPPER GI ENDOSCOPY, BIOPSY N/A 06/29/2015 EGD WITH BIOPSY performed by Nino Rocha MD at [facility] ENDOSCOPY ??? UPPER GI ENDOSCOPY, EXAM 02/13/2011 UPPER GI ENDOSCOPY performed by NINO ROCHA I at [facility] ENDOSCOPY ??? UPPER GI ENDOSCOPY, EXAM 05/12/2013 UPPER GI ENDOSCOPY performed by Nino Rocha MD at [facility] ENDOSCOPY ??? UPPER GI ENDOSCOPY, EXAM N/A 04/19/2015 UPPER GI ENDOSCOPY performed by Nino Rocha MD at [facility] ENDOSCOPY ??? UPPER GI ENDOSCOPY, TUMOR ABLATN 04/22/2012 ENDOSCOPY, UPPER GI, W\ABLATION TUMOR\POLYP\LESION performed by NINO ROCHA I at [facility] ENDOSCOPY SOCIAL HX: Social History [...] ENDOSCOPY: Reports and images personally reviewed in [facility] 03/2015 Colonoscopy: Impression: ?- The examined portion [...] evaluation. It is interesting that CT at [facility] mentioned inflammation in intestines, and wonder if [...] NPO other than prep/meds with sips. At [place], patient should be strict NPO. - Night [...] and use of cane. States seen at [facility] 08/09 for rectal bldg where my blood [...] 4:30 PM EST Hospital [place] [address] Lizet Wilkes MD [facility] [place] [address] 09/29/2024 4:30 PM EST - 09/29/2024 5:00 PM EST [place] [address] Lizet Wilkes MD [facility] [place] [place] [address] EGD, UPPER GI ENDOSCOPY (WRVU 2.09) 11/09/2024 10:00 AM EST Laboratory Appointment Lab at [facility] Hematology Oncology [address] [place] [phone] 11/09/2024 11:00 AM EST Office Visit [place]ology [place] [phone] Faith Caba MD [facility] [place] [address] 11/09/2024 12:00 PM EST Appointment Hematology [place] [phone] Scheduled Procedures Name Priority Associated Diagnoses Date/Ti me EGD, UPPER GI ENDOSCOPY (WRVU 2.09) Gastroesophageal reflux disease with esophagitis, unspecified whether hemorrhage 09/29/2024 4:30 PM EST documented as of this encounter Goals Goal Patient Goal Type Associated Problems Recent Progress Patient-Stated? Author [facility] Medication Compliance and Understanding Patient Facing [...] HC VENIPUNCTURE Routine 08/16/2022 5:55 PM EST COLONOSCOPY Routine 08/16/2022 2:28 PM EST HC [...] 2:19 PM EST Upper GI Endoscopy, Diagnostic (68348) 08/15/2022 12:58 PM EST anemia UPPER GI [...] EST) Hemoglobin 9.5(L) 13.7 - 16.5 g/dL [facility] Hematocrit 28.0(L) 40.5 - 48.5 % [facility] Blood 08/17/2022 1:13 PM EST 08/17/2022 1:18 PM EST Narrative Resulting Agency Comment Spec In Lab Martha Soto MD HEMATOLOGY ORDERAB LES Performing Organization Address City/[facility]/ZIP Co de Phone Number [facility] [place] [address] * Transfuse RBC (08/17/2022 10:50 AM EST) Martha Soto MD NURSING TREATMENT ORDERABLES - BLOOD ADMIN * Transfuse RBC (08/17/2022 10:50 AM EST) Martha Soto MD NURSING TREATMENT ORDERABLES - BLOOD ADMIN * Prepare RBC (08/17/2022 8:00 AM EST) Dispensed? Yes [facility] Blood 08/17/2022 8:00 AM EST 08/17/2022 8:00 AM EST Martha Soto MD BLOOD BANK PRODUCT ORDERABLES Performing Organization Address [facility] Co de Phone Number [facility] [place] [address] * Type and Screen Validity (08/17/2022 1:22 AM EST) T&S only valid at [facility] LABORATORY Comment:This Type and Screen result is only valid at the [facility] Blood 08/17/2022 1:22 AM EST 08/17/2022 1:41 AM EST Narrative Resulting Agency Comment Spec In Lab Ottoniel Baker MD BLOOD BANK LAB ORDER MONALISA Performing Organization Address City/[facility] Co de Phone Number [facility] [place] [address] * ABORH Recheck Status (08/17/2022 1:22 AM EST) ABORH Type Recheck Completed [facility] Blood 08/17/2022 1:22 AM EST 08/17/2022 1:41 AM EST Narrative Resulting Agency Comment Spec In Lab Ottoniel Baker MD BLOOD BANK LAB ORDER MONALISA [facility] [place] [address] * Antibody screen (08/17/2022 1:22 AM EST) Ab Screen Interp Negative [facility] Expires at [id number] on: 08/20/2022 [facility] Blood 08/17/2022 1:22 AM EST 08/17/2022 1:41 AM EST Narrative Resulting Agency Comment Spec In Lab Ottoniel Baker MD BLOOD BANK LAB ORDER MONALISA Performing Organization Address City/[facility]/ZIP Co de Phone Number [facility] [place] [address] * ABO/Rh Typing (08/17/2022 1:22 AM EST) ABORH Type O Pos [facility] Blood 08/17/2022 1:22 AM EST 08/17/2022 1:41 AM EST Narrative Resulting Agency Comment Spec In Lab Ottoniel Baker MD BLOOD BANK LAB ORDER MONALISA Performing Organization Address City/[facility]/ZIP Co de Phone Number [facility] [place] [address] * Differential, Automated (08/17/2022 1:22 AM EST) Neutrophil % 60.0 % [facility] Neutrophil Absolute 3.19 1.70 - 6.10 x10(3)/[facility] LABORATORY Lymph % 23.7 % [facility] Lymphocytes Abs 1.3 0.9 - 3.2 x10(3)/[facility] LABORATORY Monocyte % 11.5 % [facility] Monocyte Abs 0.6 0.3 - 0.9 x10(3)/[facility] LABORATORY Eos % 3.8 % [facility] Eosinophils Abs 0.2 0.0 - 0.4 x10(3)/[facility] LABORATORY Basophil % 0.8 % [facility] Baso Absolute 0.0 0.0 - 0.1 x10(3)/[facility] LABORATORY Immature Gran % 0.20 % [facility] Comment: Immature granulocytes(IG's)percentage and absolute count will include metamyelocytes, myelocytes, and promyelocytes. Blood smears from CBCs yielding IG's will be scanned manually for concordance. If this scan disagrees with the automated IG or if promyelocytes are noted, a manual differential will be performed. Immature Gran Absolute 0.01 0.00 - 0.04 x10(3)/[facility] LAB[facility] Blood 08/17/2022 1:22 AM EST 08/17/2022 1:30 AM EST Narrative Resulting Agency Comment Spec In Lab Ottoniel Baker MD HEMATOLOGY ORDERABLE S Performing Organization Address City/State/[facility] Co de Phone Number [facility] [place] [address] * (ABNORMAL) Hemogram (08/17/2022 1:22 AM EST) White Blood Cell 5.3 4.0 - 9.5 x10(3)/mc L [facility] Red Blood Cell 2.39(L) 4.58 - 5.54 x10(6)/ L [facility] Hemoglobin 7.1(L) 13.7 - 16.5 g/dL [facility] Hematocrit 20.8(L) 40.5 - 48.5 % [facility] Mean Cell Volume 87.0 82.9 - 93.1 fL [facility] Mean Cell Hemoglobin 29.7 27.5 - 32.1 pg [facility] Mean Cell Hemoglobin Concentration 34.1 32.0 - 35.7 g/dL [facility] Platelet 203 145 - 357 x10(3)/ L [facility] RDW Standard Deviation 46.1(H) 36.0 - 45.0 fL [facility] RDW coefficient of variation 14.5(H) 11.4 - 13.8 % [facility] Mean Platelet Volume 9.2 7.6 - 12.9 fL [facility] NRBC% auto 0.0 % [facility] NRBC Absolute 0.000 0.000 - 0.000 x10(3)/mc L [facility] Blood 08/17/2022 1:22 AM EST 08/17/2022 1:30 AM EST Narrative Resulting Agency Comment Spec In Lab Ottoniel Baker MD HEMATOLOGY ORDERABLE S Performing Organization Address City/[facility]/ZIP Co de Phone Number [facility] [place] [address] * Phosphorus (08/17/2022 1:22 AM EST) Phosphorus 3.6 2.5 - 4.5 mg/dL [facility] Blood 08/17/2022 1:22 AM EST 08/17/2022 1:30 AM EST Narrative Resulting Agency Comment Spec In Lab Martha Soto MD CHEMISTRY ORDERABL ES Performing Organization Address City/[facility] Co de Phone Number [facility] [place] [address] * Magnesium (08/17/2022 1:22 AM EST) Magnesium 0.76 0.69 - 1.07 mmol/L [facility] Blood 08/17/2022 1:22 AM EST 08/17/2022 1:30 AM EST Narrative Resulting Agency Comment Spec In Lab Martha Soto MD CHEMISTRY ORDERABL ES Performing Organization Address City/[facility]/ZIP Co de Phone Number [facility] [place] [address] * (ABNORMAL) Basic Metabolic Panel (non-fasting) (08/17/2022 1:22 AM EST) Glucose 97 65 - 199 mg/dL [facility] Comment:Diabetes: >=200 mg/d L plus symptoms Blood Urea Nitrogen 9(L) 10 - 20 mg/dL [facility] Creatinine 0.74(L) 0.80 - 1.50 mg/dL [facility] Sodium 144 135 - 145 mmol/L [facility] Potassium 3.8 3.5 - 5.0 mmol/L [facility] Comment: Please note: ??Patients with WBC >100,000 may have falsely elevated Potassium levels. ??For accurate Potassium quantification in these patients send serum separator tube (gold top) for subsequent determinations. ??Contact the Clinical Chemistry Laboratory if there are any questions. Chloride 112(H) 98 - 107 mmol/L [facility] Carbon Dioxide 27 22 - 31 mmol/L [facility] Anion Gap 5 5 - 15 mmol/L [facility] Calcium 7.9(L) 8.5 - 10.5 mg/dL [facility] Est Glomerular Filtration Rate 93 >=60 mL/min/1. 73 m?? [facility] Comment: This patient's estimated [...] Narrative Resulting Agency Comment Spec In Lab Martha Soto MD CHEMISTRY ORDERABL ES [facility] [place] [address] * (ABNORMAL) Hemoglobin and Hematocrit, blood (08/17/2022 1:22 AM EST) Hemoglobin 7.1(L) 13.7 - 16.5 g/dL [facility] Hematocrit 20.8(L) 40.5 - 48.5 % [facility] Blood 08/17/2022 1:22 AM EST 08/17/2022 1:30 AM EST Narrative Resulting Agency Comment Spec In Lab Martha Soto MD HEMATOLOGY ORDERAB LES Performing Organization Address [facility] Co de Phone Number [facility] [place] [address] * (ABNORMAL) Hemoglobin and Hematocrit, blood (08/16/2022 5:55 PM EST) Hemoglobin 7.4(L) 13.7 - 16.5 g/dL [facility] Hematocrit 21.4(L) 40.5 - 48.5 % [facility] Blood 08/16/2022 5:55 PM EST 08/16/2022 6:05 PM EST Narrative Resulting Agency Comment Spec In Lab Martha Soto MD HEMATOLOGY ORDERAB LES Performing Organization Address City/[facility]/ZIP Co de Phone Number [facility] [place] [address] * COLONOSCOPY (08/16/2022 2:28 PM EST) COLONOSCOPY [facility] Endoscopy Procedure Date: 08/16/2022 2:28 PM ? Patient Name: Chidi Carbone ? Date of : 1945 ? Age: 76 ? Order #: [id number] ? Instrument Name: [id number] ? Procedure: ? Colonoscopy Indications: ? Hematochezia Providers: ? Chad Tipton, ? Adrienne Gonzalez, Luster Applicator, ? Emani Systrom Referring MD: ?Kennedi Shaver [...] Procedure Code(s): ? --- Professional --- ? 03114, Colonoscopy, flexible; ? diagnostic, including collection of [...] neoplasm of ascending ? colon CPT copyright 2021 [employer]. All rights reserved. The codes documented in this report are preliminary and upon e learning specialist review may be revised to meet current compliance requirements. Attending Participation: ? I was present and participated during the entire ? procedure, including non-bello portions. ? Bubba Montenegro Rodrigo, 08/16/2022 3:25:28 PM Number of Addenda: 0 Note Initiated On: 08/16/2022 2:28 PM [facility] 08/16/2022 2:28 PM EST Kennedi Shaver MD GENERAL SURGICAL ORD ERABLES Performing Organization Address City/[facility]/ZIP Co de Phone Number [facility] * (ABNORMAL) Hemoglobin and Hematocrit, blood (08/16/2022 1:20 PM EST) Hemoglobin 8.4(L) 13.7 - 16.5 g/dL [facility] Hematocrit 24.8(L) 40.5 - 48.5 % [facility] Blood 08/16/2022 1:20 PM EST 08/16/2022 1:30 PM EST Narrative Resulting Agency Comment Spec In Lab Martha Soto MD HEMATOLOGY ORDERAB LES Performing Organization Address City/[facility]/ZIP Co de Phone Number [facility] [place] [address] * (ABNORMAL) Basic Metabolic Panel (non-fasting) (08/16/2022 1:20 PM EST) Glucose 110 65 - 199 mg/dL [facility] Comment:Diabetes: >=200 mg/d L plus symptoms Blood Urea Nitrogen 8(L) 10 - 20 mg/dL [facility] Creatinine 0.81 0.80 - 1.50 mg/dL [facility] Sodium 142 135 - 145 mmol/L [facility] Potassium 3.3(L) 3.5 - 5.0 mmol/L [facility] Comment: Please note: ??Patients with WBC >100,000 may have falsely elevated Potassium levels. ??For accurate Potassium quantification in these patients send serum separator tube (gold top) for subsequent determinations. ??Contact the Clinical Chemistry Laboratory if there are any questions. Chloride 106 98 - 107 mmol/L [facility] Carbon Dioxide 24 22 - 31 mmol/L [facility] Anion Gap 12 5 - 15 mmol/L [facility] Calcium 8.5 8.5 - 10.5 mg/dL [facility] Est Glomerular Filtration Rate 91 >=60 mL/min/1. 73 m?? [facility] Comment: This patient's estimated [...] Narrative Resulting Agency Comment Spec In Lab Martha Soto MD CHEMISTRY ORDERABL ES [facility] [place] [address] * (ABNORMAL) Hemoglobin and Hematocrit, blood (08/16/2022 7:37 AM EST) Hemoglobin 7.3(L) 13.7 - 16.5 g/dL [facility] Hematocrit 21.5(L) 40.5 - 48.5 % [facility] Blood 08/16/2022 7:37 AM EST 08/16/2022 7:57 AM EST Narrative Resulting Agency Comment Spec In Lab Martha Soto MD HEMATOLOGY ORDERAB LES [facility] [place] [address] * Differential, Automated (08/16/2022 1:42 AM EST) Neutrophil % 65.8 % [facility] Neutrophil Absolute 3.58 1.70 - 6.10 x10(3)/[facility] LABORATORY Lymph % 18.0 % [facility] LABORATORY Lymphocytes Abs 1.0 0.9 - 3.2 x10(3)/[facility] LABORATORY Monocyte % 12.3 % [facility] LABORATORY Monocyte Abs 0.7 0.3 - 0.9 x10(3)/[facility] LABORATORY Eos % 2.9 % [facility] LABORATORY Eosinophils Abs 0.2 0.0 - 0.4 x10(3)/[facility] LABORATORY Basophil % 0.6 % [facility] LABORATORY Baso Absolute 0.0 0.0 - 0.1 x10(3)/[facility] LABORATORY Immature Gran % 0.40 % [facility] LABORATORY Comment: Immature granulocytes(IG's)percentage and absolute count will include metamyelocytes, myelocytes, and promyelocytes. Blood smears from CBCs yielding IG's will be scanned manually for concordance. If this scan disagrees with the automated IG or if promyelocytes are noted, a manual differential will be performed. Immature Gran Absolute 0.02 0.00 - 0.04 x10(3)/[facility] LABORATORY Blood 08/16/2022 1:42 AM EST 08/16/2022 1:56 AM EST Narrative Resulting Agency Comment Spec In Lab Ottoniel Baker MD HEMATOLOGY ORDERABLE S [facility] [place] [place] [address] * (ABNORMAL) Hemogram (08/16/2022 1:42 AM EST) White Blood Cell 5.4 4.0 - 9.5 x10(3)/mc L [facility] LABORATORY Red Blood Cell 2.67(L) 4.58 - 5.54 x10(6)/mc L [facility] LABORATORY Hemoglobin 7.9(L) 13.7 - 16.5 g/dL [facility] LABORATORY Hematocrit 22.9(L) 40.5 - 48.5 % [facility] LABORATORY Mean Cell Volume 85.8 82.9 - 93.1 fL [facility] LABORATORY Mean Cell Hemoglobin 29.6 27.5 - 32.1 pg [facility] LABOR[facility]ORY Mean Cell Hemoglobin Concentration 34.5 32.0 - 35.7 g/dL [facility] LABORATORY Platelet 193 145 - 357 x10(3)/mc L [facility] LABORATORY RDW Standard Deviation 45.9(H) 36.0 - 45.0 fL [facility] LABORATORY RDW coefficient of variation 14.6(H) 11.4 - 13.8 % [facility] LABOR[facility] Mean Platelet Volume 9.5 7.6 - 12.9 fL [facility] LABORATORY NRBC% auto 0.0 % [facility] LABORATORY NRBC Absolute 0.000 0.000 - 0.000 x10(3)/mc L [facility] LABORATORY Blood 08/16/2022 1:42 AM EST 08/16/2022 1:56 AM EST Narrative Resulting Agency Comment Spec In Lab Ottoniel Baker MD HEMATOLOGY ORDERABLE S [facility] [place] [place] [address] * Phosphorus (08/16/2022 1:42 AM EST) Phosphorus 3.3 2.5 - 4.5 mg/dL [facility] LABORATORY Blood 08/16/2022 1:42 AM EST 08/16/2022 1:56 AM EST Narrative Resulting Agency Comment Spec In Lab Martha Soto MD CHEMISTRY ORDERABL ES Performing Organization Address [facility] Co de Phone Number [facility] [place] [place] [address] * Magnesium (08/16/2022 1:42 AM EST) Magnesium 0.74 0.69 - 1.07 mmol/L [facility] LABORATORY Blood 08/16/2022 1:42 AM EST 08/16/2022 1:56 AM EST Narrative Resulting Agency Comment Spec In Lab Martha Soto MD CHEMISTRY ORDERABL ES Performing Organization Address [facility] Co de Phone Number [facility] [place] [place] [address] * (ABNORMAL) Basic Metabolic Panel (non-fasting) (08/16/2022 1:42 AM EST) [facility] Glucose 111 65 - 199 mg/dL [facility] LABORATORY Comment:Diabetes: >=200 mg/d L plus symptoms Blood Urea Nitrogen 10 10 - 20 mg/dL [facility] LABORATORY Creatinine 0.76(L) 0.80 - 1.50 mg/dL [facility] LABORATORY Sodium 142 135 - 145 mmol/L [facility] LABORATORY Potassium 3.0(Criti milan) 3.5 - 5.0 mmol/L [facility] LABORATORY Comment: Called by: , Read back by: Starla Warner, Date/Time:08/16/22 02:27. Please note: ??Patients with WBC >100,000 may have falsely elevated Potassium levels. ??For accurate Potassium quantification in these patients send serum separator tube (gold top) for subsequent determinations. ??Contact the Clinical Chemistry Laboratory if there are any questions. Chloride 107 98 - 107 mmol/L [facility] LABORATORY Carbon Dioxide 24 22 - 31 mmol/L [facility] LABOR[facility] Anion Gap 11 5 - 15 mmol/L [facility]OR[facility]ORY Calcium 8.0(L) 8.5 - 10.5 mg/dL [facility] LABOR[facility] Est Glomerular Filtration Rate 93 >=60 mL/min/1. 73 m?? [facility] LABORATORY Comment: This patient's estimated [...] Narrative Resulting Agency Comment Spec In Lab Martha Soto MD CHEMISTRY ORDERABL ES Performing Organization Address [facility]/ZIP Co de Phone Number [facility] [place] [place] [address] * (ABNORMAL) Hemoglobin and Hematocrit, blood (08/15/2022 6:07 PM EST) Hemoglobin 8.1(L) 13.7 - 16.5 g/dL [facility] LABORATORY Hematocrit 23.1(L) 40.5 - 48.5 % [facility] LABORATORY Blood 08/15/2022 6:07 PM EST 08/15/2022 6:12 PM EST Narrative Resulting Agency Comment Spec In Lab Martha Soto MD HEMATOLOGY ORDERAB LES [facility] [place] [place] [address] * (ABNORMAL) Hemoglobin and Hematocrit, blood (08/15/2022 2:19 PM EST) Hemoglobin 8.1(L) 13.7 - 16.5 g/dL [facility] LABORATORY Hematocrit 24.0(L) 40.5 - 48.5 % [facility] LABORATORY Blood 08/15/2022 2:19 PM EST 08/15/2022 2:30 PM EST Narrative Resulting Agency Comment Spec In Lab Martha Soto MD HEMATOLOGY ORDERAB LES [facility] [place] [place] [address] * UPPER GI ENDOSCOPY (08/15/2022 11:41 AM EST) Pathologist [facility] UPPER GI ENDOSCOPY [facility] Endoscopy Procedure Date: 08/15/2022 11:41 AM ? Patient Name: Chidi Carbone ? N: [id number] ? Date of : 1945 ? Age: 76 ? Order #: [id number] ? Instrument Name: [id number] ? Procedure: ? Upper GI endoscopy Indications: ? Hematochezia Providers: ? Bubba Wallace, Emani Gray, ? Adin Kang RN, Addy Miranda Referring MD: ? Medicines: ? [...] Procedure Code(s): ? --- Professional --- ? 11734, Esophagogastroduod enoscopy, ? flexible, transoral; diagnostic, ? [...] unspecified ? without bleeding CPT copyright 2020 [employer]. All rights reserved. The codes documented in this report are preliminary and upon e learning specialist review may be revised to meet current [...] questions please contact the health home care specialist that requested your imaging first. ? Electronically signed by: Santo Duarte MD, [facility] ([phone]), at 08/15/2022 4:31 PM Narrative 08/15/2022 4:31 [...] was advanced to the abdominal aorta. A 5-Singaporean sheath was advanced over the wire and [...] then exchanged over wire for a 6 [place]an StarClose sheath, and the arteriotomy was closed [...] was thenexchanged over wire for a 6 [place]an StarClose sheath, and the arteriotomy was closedper [...] have questions please contactthe health home care specialist that requested your imaging first. Electronically signed by: Santo Duarte MD, [facility]([phone]), at 08/15/2022 4:31 PM Santo Duarte MD IM IR ORDERABLES * Differential, Automated (08/15/2022 6:18 AM EST) Neutrophil % 68.8 % [facility] LABORATORY Neutrophil Absolute 4.10 1.70 - 6.10 x10(3)/[facility] LABORATORY Lymph % 17.6 % [facility] LABORATORY Lymphocytes Abs 1.0 0.9 - 3.2 x10(3)/[facility] LABORATORY Monocyte % 10.1 % [facility] Monocyte Abs 0.6 0.3 - 0.9 x10(3)/[facility] LABORATORY Eos % 2.5 % [facility] LABORATORY Eosinophils Abs 0.2 0.0 - 0.4 x10(3)/[facility] LABORATORY Basophil % 0.7 % [facility] LABORATORY Baso Absolute 0.0 0.0 - 0.1 x10(3)/[facility] LABORATORY Immature Gran % 0.30 % [facility] LABORATORY Comment: Immature granulocytes(IG's)percentage and absolute count will include metamyelocytes, myelocytes, and promyelocytes. Blood smears from CBCs yielding IG's will be scanned manually for concordance. If this scan disagrees with the automated IG or if promyelocytes are noted, a manual differential will be performed. Immature Gran Absolute 0.02 0.00 - 0.04 x10(3)/mcL [facility] LABORATORY Blood 08/15/2022 6:18 AM EST 08/15/2022 6:48 AM EST Narrative Resulting Agency Comment Spec In Lab Harrison Rose MD HEMATOLOGY ORDERABLE S [facility] [place] [place] [address] * (ABNORMAL) Hemogram (08/15/2022 6:18 AM EST) White Blood Cell 6.0 4.0 - 9.5 x10(3)/ L [facility] LABORATORY Red Blood Cell 2.66(L) 4.58 - 5.54 x10(6)/[facility] LABORATORY Hemoglobin 7.8(L) 13.7 - 16.5 g/dL [facility] LABORATORY Hematocrit 23.4(L) 40.5 - 48.5 % [facility] LABORATORY Mean Cell Volume 88.0 82.9 - 93.1 [facility] LABORATORY Mean Cell Hemoglobin 29.3 27.5 - 32.1 pg [facility] LABORATORY Mean Cell Hemoglobin Concentration 33.3 32.0 - 35.7 g/dL [facility] LABORATORY Platelet 187 145 - 357 x10(3)/[facility] LABORATORY RDW Standard Deviation 44.5 36.0 - 45.0 [facility] LABORATORY RDW coefficient of variation 14.0(H) 11.4 - 13.8 % [facility] LABORATORY Mean Platelet Volume 9.8 7.6 - 12.9 [facility] LABORATORY NRBC% auto 0.0 % [facility] LABORATORY NRBC Absolute 0.000 0.000 - 0.000 x10(3)/[facility] LABORATORY Blood 08/15/2022 6:18 AM EST 08/15/2022 6:48 AM EST Narrative Resulting Agency Comment Spec In Lab Harrison Rose MD HEMATOLOGY ORDERABLE S Performing Organization Address [facility]/ZIP Co de Phone Number [facility] [place] [place] [address] * Phosphorus (08/15/2022 6:18 AM EST) Phosphorus 3.5 2.5 - 4.5 mg/dL [facility] LABORATORY Blood 08/15/2022 6:18 AM EST 08/15/2022 6:48 AM EST Narrative Resulting Agency Comment Spec In Lab Martha Soto MD CHEMISTRY ORDERABL ES Performing Organization Address [facility] Co de Phone Number [facility] [place] [address] * Magnesium (08/15/2022 6:18 AM EST) Magnesium 0.78 0.69 - 1.07 mmol/L [facility] LABORATORY Blood 08/15/2022 6:18 AM EST 08/15/2022 6:48 AM EST Narrative Resulting Agency Comment Spec In Lab Martha Soto MD CHEMISTRY ORDERABL ES Performing Organization Address [facility] Co de Phone Number [facility] [place] [address] * (ABNORMAL) Basic Metabolic Panel (non-fasting) (08/15/2022 6:18 AM EST) Glucose 109 65 - 199 mg/dL [facility] LABORATORY Comment:Diabetes: >=200 mg/d L plus symptoms Blood Urea Nitrogen 16 10 - 20 mg/dL [facility] LABORATORY Creatinine 0.57(L) 0.80 - 1.50 mg/dL [facility] LABORATORY Sodium 143 135 - 145 mmol/L [facility] LABORATORY Potassium 3.4(L) 3.5 - 5.0 mmol/L [facility] LABORATORY Comment: Please note: ??Patients with WBC >100,000 may have falsely elevated Potassium levels. ??For accurate Potassium quantification in these patients send serum separator tube (gold top) for subsequent determinations. ??Contact the Clinical Chemistry Laboratory if there are any questions. Chloride 112(H) 98 - 107 mmol/L [facility] LABORATORY Carbon Dioxide 21(L) 22 - 31 mmol/L [facility]OR[facility] Anion Gap 10 5 - 15 mmol/L [facility] LABORATORY Calcium 7.8(L) 8.5 - 10.5 mg/dL [facility] LABORATORY Comment:result rechecked-[facility] Est Glomerular Filtration Rate 101 >=60 mL/min/1. 73 m?? [facility] LABORATORY Comment: This patient's estimated [...] Narrative Resulting Agency Comment Spec In Lab Martha Soto MD CHEMISTRY ORDERABL ES [facility] [place] [place] [address] * (ABNORMAL) Hemoglobin and Hematocrit, blood (08/15/2022 6:18 AM EST) Hemoglobin 7.8(L) 13.7 - 16.5 g/dL [facility] LABORATORY Hematocrit 23.4(L) 40.5 - 48.5 % [facility] LABORATORY Blood 08/15/2022 6:18 AM EST 08/15/2022 6:48 AM EST Narrative Resulting Agency Comment Spec In Lab Martha Soto MD HEMATOLOGY ORDERAB LES Performing Organization Address City/[facility]/ZIP Co de Phone Number [facility] [place] [place] [address] * Transfuse RBC (08/15/2022 3:59 AM EST) Martha Soto MD NURSING TREATMENT ORDERABLES - BLOOD ADMIN * Transfuse RBC (08/15/2022 3:59 AM EST) Martha Soto MD NURSING TREATMENT ORDERABLES - BLOOD ADMIN * Transfuse RBC (08/15/2022 2:20 AM EST) Martha Soto MD NURSING TREATMENT ORDERABLES - BLOOD ADMIN * Transfuse RBC (08/15/2022 2:20 AM EST) Martha Soto MD NURSING TREATMENT ORDERABLES - BLOOD ADMIN * Prepare RBC (08/15/2022 2:00 AM EST) Dispensed? Yes [facility] LABORATORY Blood 08/15/2022 2:00 AM EST 08/15/2022 2:00 AM EST Martha Soto MD BLOOD BANK PRODUCT ORDERABLES Performing Organization Address City/[facility] Co de Phone Number [facility] [place] [address] * CT Abdomen & Pelvis wwo Contrast [...] questions please contact the health home care specialist that requested your imaging first. ? Electronically signed by: Tr Rivera MD, [facility] ([phone]), at 08/15/2022 7:44 AM Narrative 08/15/2022 7:44 [...] status post [place]. Preliminary report signed by: lGenroy Castillo at 08/15/2022 6:47 AM I have [...] have questions please contactthe health home care specialist that requested your imaging first. Electronically signed by: Tr Rivera MD, [facility]([phone]), at 08/15/2022 7:44 AM Martha Soto MD IMG CT ORDERABLES * (ABNORMAL) Hemoglobin and Hematocrit, blood (08/15/2022 12:50 AM EST) Hemoglobin 6.5(L) 13.7 - 16.5 g/dL [facility] Hematocrit 19.6(L) 40.5 - 48.5 % [facility] Blood 08/15/2022 12:5 0 AM EST 08/15/2022 1:03 AM EST Narrative Resulting Agency Comment Spec In Lab Martha Soto MD HEMATOLOGY ORDERAB LES [facility] [place] [address] * Prepare RBC (08/14/2022 10:50 PM EST) Dispensed? Yes [facility] Blood 08/14/2022 10:5 0 PM EST 08/14/2022 10:52 PM EST Martha Soto MD BLOOD BANK PRODUCT ORDERABLES Performing Organization Address [facility] [place] [address] * (ABNORMAL) Hemoglobin and Hematocrit, blood (08/14/2022 10:13 PM EST) Hemoglobin 6.9(L) 13.7 - 16.5 g/dL [facility] Hematocrit 21.2(L) 40.5 - 48.5 % [facility] Blood 08/14/2022 10:1 3 PM EST 08/14/2022 10:18 PM EST Narrative Resulting Agency Comment Spec In Lab Martha Soto MD HEMATOLOGY ORDERAB LES Performing Organization Address [facility] [place] [address] * Transfuse RBC (08/14/2022 9:28 PM EST) Martha Soto MD NURSING TREATMENT ORDERABLES - BLOOD ADMIN * Transfuse RBC (08/14/2022 9:28 PM EST) Martha Soto MD NURSING TREATMENT ORDERABLES - BLOOD ADMIN * (ABNORMAL) Hemoglobin and Hematocrit, blood (08/14/2022 6:14 PM EST) Hemoglobin 6.6(L) 13.7 - 16.5 g/dL [facility] Hematocrit 19.7(L) 40.5 - 48.5 % [facility] Blood 08/14/2022 6:14 PM EST 08/14/2022 6:47 PM EST Narrative Resulting Agency Comment Spec In Lab Martha Soto MD HEMATOLOGY ORDERAB LES Performing Organization Address City/[facility] Co de Phone Number [facility] [place] [address] * Prepare RBC (08/14/2022 6:00 PM EST) Dispensed? Yes [facility] Blood 08/14/2022 6:00 PM EST 08/14/2022 5:58 PM EST Martha Soto MD BLOOD BANK PRODUCT ORDERABLES [facility] [place] [address] * Differential, Automated (08/14/2022 5:34 PM EST) Neutrophil % 57.9 % [facility] Neutrophil Absolute 3.04 1.70 - 6.10 x10(3)/[facility] LABORATORY Lymph % 25.6 % [facility] Lymphocytes Abs 1.3 0.9 - 3.2 x10(3)/[facility] LABORATORY Monocyte % 11.3 % [facility] Monocyte Abs 0.6 0.3 - 0.9 x10(3)/[facility] LABORATORY Eos % 4.0 % [facility] Eosinophils Abs 0.2 0.0 - 0.4 x10(3)/[facility] LABORATORY Basophil % 0.8 % [facility] Baso Absolute 0.0 0.0 - 0.1 x10(3)/[facility] LABORATORY Immature Gran % 0.40 % [facility]ORY Comment: Immature granulocytes(IG's)percentage and absolute count will include metamyelocytes, myelocytes, and promyelocytes. Blood smears from CBCs yielding IG's will be scanned manually for concordance. If this scan disagrees with the automated IG or if promyelocytes are noted, a manual differential will be performed. Immature Gran Absolute 0.02 0.00 - 0.04 x10(3)/[facility] LABORATORY Blood 08/14/2022 5:34 PM EST 08/14/2022 5:34 PM EST Narrative Resulting Agency Comment Spec In Lab Nikhil Dozier MD HEMATOLOGY ORDERAB LES Performing Organization Address City/[facility]/ZIP Co de Phone Number [facility] [place] [address] * (ABNORMAL) Hemogram (08/14/2022 5:34 PM EST) White Blood Cell 5.2 4.0 - 9.5 x10(3)/mc L [facility] Red Blood Cell 2.02(L) 4.58 - 5.54 x10(6)/mc L [facility] Hemoglobin 6.1(L) 13.7 - 16.5 g/dL [facility] Hematocrit 18.3(L) 40.5 - 48.5 % [facility] Mean Cell Volume 90.6 82.9 - 93.1 fL [facility] Mean Cell Hemoglobin 30.2 27.5 - 32.1 pg [facility] Mean Cell Hemoglobin Concentration 33.3 32.0 - 35.7 g/dL [facility] Platelet 213 145 - 357 x10(3)/mc L [facility] RDW Standard Deviation 42.5 36.0 - 45.0 fL [facility] RDW coefficient of variation 12.8 11.4 - 13.8 % [facility] Mean Platelet Volume 9.6 7.6 - 12.9 fL [facility] NRBC% auto 0.0 % [facility] NRBC Absolute 0.000 0.000 - 0.000 x10(3)/mc L [facility] Blood 08/14/2022 5:34 PM EST 08/14/2022 5:34 PM EST Narrative Resulting Agency Comment Spec In Lab Nikhil Dozier MD HEMATOLOGY ORDERAB LES [facility] [place] [address] * Type and Screen Validity (08/14/2022 12:05 PM EST) T&S only valid at [facility] LABORATORY Comment:This Type and Screen result is only valid at the [facility] Blood 08/14/2022 12:0 5 PM EST 08/14/2022 12:44 PM EST Narrative Resulting Agency Comment Spec In Lab Jamison Ugarte DO BLOOD BANK LAB ORDER MONALISA [facility] [place] [address] * ABORH Recheck Status (08/14/2022 12:05 PM EST) ABORH Recheck Order Order Placed [facility] ABORH Type Recheck Complete [facility] Blood 08/14/2022 12:0 5 PM EST 08/14/2022 12:44 PM EST Narrative Resulting Agency Comment Spec In Lab Jamison Ugarte DO BLOOD BANK LAB ORDER MONALISA [facility] [place] [place] [address] * Antibody screen (08/14/2022 12:05 PM EST) Ab Screen Interp Negative [facility] Expires at [id number] on: 08/17/2022 [facility] Blood 08/14/2022 12:0 5 PM EST 08/14/2022 12:44 PM EST Narrative Resulting Agency Comment Spec In Lab Jamison Ugarte DO BLOOD BANK LAB ORDER MONALISA [facility] [place] [place] [address] * ABO/Rh Typing (08/14/2022 12:05 PM EST) ABORH Type O Pos [facility] Blood 08/14/2022 12:0 5 PM EST 08/14/2022 12:44 PM EST Narrative Resulting Agency Comment Spec In Lab Jamison Ugarte DO BLOOD BANK LAB ORDER MONALISA [facility] [place] [place] [address] * Differential, Automated (08/14/2022 12:05 PM EST) Neutrophil % 64.1 % [facility] Neutrophil Absolute 4.30 1.70 - 6.10 x10(3)/[facility] LABORATORY Lymph % 22.6 % [facility] Lymphocytes Abs 1.5 0.9 - 3.2 x10(3)/[facility] LABORATORY Monocyte % 9.5 % [facility] Monocyte Abs 0.6 0.3 - 0.9 x10(3)/[facility] LABORATORY Eos % 3.1 % [facility] Eosinophils Abs 0.2 0.0 - 0.4 x10(3)/[facility] LABORATORY Basophil % 0.4 % [facility] Baso Absolute 0.0 0.0 - 0.1 x10(3)/[facility] LABORATORY Immature Gran % 0.30 % [facility] Comment: Immature granulocytes(IG's)percentage and absolute count will include metamyelocytes, myelocytes, and promyelocytes. Blood smears from CBCs yielding IG's will be scanned manually for concordance. If this scan disagrees with the automated IG or if promyelocytes are noted, a manual differential will be performed. Immature Gran Absolute 0.02 0.00 - 0.04 x10(3)/[facility] LABORATORY Blood 08/14/2022 12:0 5 PM EST 08/14/2022 12:36 PM EST Narrative Resulting Agency Comment Spec In Lab Jamison Ugarte DO HEMATOLOGY ORDERABLE S [facility] [place] [address] * (ABNORMAL) Hemogram (08/14/2022 12:05 PM EST) White Blood Cell 6.7 4.0 - 9.5 x10(3)/mc L [facility] Red Blood Cell 2.45(L) 4.58 - 5.54 x10(6)/mc L [facility] Hemoglobin 7.4(L) 13.7 - 16.5 g/dL [facility] Hematocrit 22.0(L) 40.5 - 48.5 % [facility] Mean Cell Volume 89.8 82.9 - 93.1 fL [facility] Mean Cell Hemoglobin 30.2 27.5 - 32.1 pg [facility] Mean Cell Hemoglobin Concentration 33.6 32.0 - 35.7 g/dL [facility] Platelet 250 145 - 357 x10(3)/mc L [facility] RDW Standard Deviation 42.4 36.0 - 45.0 [facility] RDW coefficient of variation 12.9 11.4 - 13.8 % [facility] Mean Platelet Volume 9.7 7.6 - 12.9 fL [facility] NRBC% auto 0.0 % [facility] NRBC Absolute 0.000 0.000 - 0.000 x10(3)/mc L [facility] Blood 08/14/2022 12:0 5 PM EST 08/14/2022 12:36 PM EST Narrative Resulting Agency Comment Spec In Lab Jamison Ugarte DO HEMATOLOGY ORDERABLE S [facility] [place] [address] * (ABNORMAL) Basic Metabolic Panel (non-fasting) (08/14/2022 12:05 PM EST) Glucose 112 65 - 199 mg/dL [facility] Comment:Diabetes: >=200 mg/d L plus symptoms Blood Urea Nitrogen 19 10 - 20 mg/dL [facility] Creatinine 0.85 0.80 - 1.50 mg/dL [facility] Sodium 143 135 - 145 mmol/L [facility] Potassium 3.5 3.5 - 5.0 mmol/L [facility] Comment: Please note: ??Patients with WBC >100,000 may have falsely elevated Potassium levels. ??For accurate Potassium quantification in these patients send serum separator tube (gold top) for subsequent determinations. ??Contact the Clinical Chemistry Laboratory if there are any questions. Chloride 109(H) 98 - 107 mmol/L [facility] Carbon Dioxide 24 22 - 31 mmol/L [facility] Anion Gap 10 5 - 15 mmol/L [facility] Calcium 8.7 8.5 - 10.5 mg/dL [facility] Est Glomerular Filtration Rate 89 >=60 mL/min/1. 73 m?? [facility] Comment: This patient's estimated [...] In Lab Jamison Ugarte DO CHEMISTRY ORDERABLES [facility] [place] [address] * EKG 12 Lead (08/14/2022 11:47 AM EST) Ventricular rate 74 BPM MUSE SYSTEM Atrial Rate 74 BPM MUSE SYSTEM P-R Interval 178 ms MUSE SYSTEM QRS Duration 78 ms MUSE SYSTEM Q-T Interval 392 ms MUSE SYSTEM QTC Calculated (Bezet) 435 ms MUSE SYSTEM Calculated P [place] 41 degrees MUSE SYSTEM Calculated R [place] -10 degrees MUSE SYSTEM Calculated T [place] 3 degrees MUSE SYSTEM INTERPRETATION Sinus rhythm with frequent Premature ventricular complexes Minimal voltage criteria for LVH, may be normal variant ( R in aVL ) Nonspecific ST abnormality Abnormal ECG No previous ECGs available Confirmed by Thanh Andre ([id number]) on 08/14/2022 1:09:20 PM MUSE SYSTEM 08/14/2022 [...] Per MD Order - Comment: per Fang- [facility] meds)1148 ([facility] Hold - Provider: Admin Adt - Reason: Transfer to a Procedural area)1354 ([facility] Unhold - Provider: Admin Adt) 0931 (Given - Provider: Denise Blas RN)1411 ([facility] Hold - Provider: Admin Adt - Reason: Transfer to a Procedural area)1552 ([facility] Unhold - Provider: Admin Adt) 0910 (Given - Provider: Faye Sahu RN) finasteride (Proscar) tablet 5 mg 5 mg, Oral, NIGHTLY, First dose on Sat08/14/22 at 2100, Until Discontinued, DO NOT SPLIT, CRUSH OR OPEN, Routine 1148 ([facility] Hold - Provider: Admin Adt - Reason: Transfer to a Procedural area)1354 ([facility] Unhold - Provider: Admin Adt)2100 (Not Given - Provider: Starla Warner RN - Reason: NPO - Comment: NPO - HOLD MEDS) 1411 ([facility] Hold - Provider: Admin Adt - Reason: Transfer to a Procedural area)1552 ([facility] Unhold - Provider: Admin Adt)2107 (Given - [...] 0130, Routine 0105 (Given - Provider: Starla Warner, NUZHAT) magnesium sulfate 2 g in sterile water 50 mL infusion (COMPLETED) 2 g, Intravenous, ONCE, 1 dose, On Sat08/17/22 at 0845, Administer over 120 Minutes 0825 (New Bag - Provider: Faye Sahu RN)1025 (Stopped - Provider: Faye Sahu, NUZHAT) pantoprazole EC (Protonix) tablet 40 mg 40 [...] Provider: Admin Adt)2100 (Not Given - Provider: tSarla Warner RN - Reason: NPO - Comment: NPO - HOLD MEDS) 0931 (Given - Provider: Denise Blas RN)1411 ([facility] Hold - Provider: Admin Adt - Reason: Transfer to a Procedural area)1552 ([facility] Unhold - Provider: Admin Adt)2107 (Given - [...] Procedural area)1354 ([facility] Unhold - Provider: Admin Adt) 0931 (Given - Provider: Denise Blas RN)1411 ([facility] Hold - Provider: Admin Adt - Reason: Transfer to a Procedural area)155 ([facility] Unhold - Provider: Admin Adt) 0824 (Given - Provider: Faye Sahu, NUZHAT) sodium chloride 0.9 % (flush) (BD PosiFlush Normal Saline 0.9) flush 5 mL 5 mL, Intravenous, 2 TIMES DAILY, First dose on Sat08/14/22 at 2100, Until Discontinued, Routine 0900 (Due)1148 ([facility] Hold - Provider: Admin Adt - Reason: Transfer to a Procedural area)1354 ([facility] Unhold - Provider: Admin Adt)2100 (Given - Provider: Starla Warner RN) 0913 (Given - Provider: Denise Blas RN)1411 ([facility] Hold - Provider: Admin Adt - Reason: Transfer to a Procedural area)155 ([facility] Unhold - Provider: Admin Adt)210 (Given - Provider: Denzel Arboleda RN) 0825 (Given - Provider: Faye Sahu RN) tamsulosin (Flomax) capsule 0.4 mg 0.4 mg, Oral, NIGHTLY, First dose on Sat08/14/22 at 2100, Until Discontinued, DO NOT CRUSH OR OPEN, Routine 1148 ([facility] Hold - Provider: Admin Adt - Reason: Transfer to a Procedural area)1354 ([facility] Unhold - Provider: Admin Adt)2100 (Not Given - Provider: Starla Warner RN - Reason: NPO - Comment: NPO - HOLD MEDS) 1411 ([facility] Hold - Provider: Admin Adt - Reason: Transfer to a Procedural area)155 ([facility] Unhold - Provider: Admin Adt)210 (Given - Provider: Denzel Arboleda RN) Continuous Medication Order 08/15/2022 08/16/2022 08/17/2022 lactated ringers infusion (CANCELED) 100 mL/hr, Intravenous, CONTINUOUS, Starting on Yudi 08/16/22 at 1430, Until Yudi 08/16/22 at 1552, Endoscopy (Day of Procedure) 1440 (New Bag - Provider: Neris Winn CRNA)155 (Stopped - Provider: Denise Blas RN) PRN [...] Carpio, NUZHAT)0755 (Given - Provider: Sintia Carpio, NUZHAT)0800 (Given - Provider: Sintia Carpio RN) iohexoL [...] for discomfort with PIV insertion, Routine 1148 (NOV Hold - Provider: Admin Adt - Reason: Transfer to a Procedural area)1354 ([facility] Unhold - Provider: Admin Adt) 1411 ([facility] Hold - Provider: Admin Adt - Reason: Transfer to a Procedural area)1552 ([facility] Unhold - Provider: Admin Adt) LORazepam (Ativan) [...] Until Sat08/17/22 at 1948, Sleep, Routine 1148 ([facility] Hold - Provider: Admin Adt - Reason: Transfer to a Procedural area)1354 ([facility] Unhold - Provider: Admin Adt) 1411 ([facility] Hold - Provider: Admin Adt - Reason: Transfer to a Procedural area)1552 ([facility] Unhold - Provider: Admin Adt) midazolam (Versed) [...] Carpio, NUZHAT)0755 (Given - Provider: Sintia Carpio, NUZHAT)0800 (Given - Provider: Sintia Carpio, NUZAHT) ondansetron (pf) (Zofran) (2 mg/mL) injection 8 mg (CANCELED) 8 mg, Intravenous, EVERY 8 HOURS PRN, Starting on Sat08/14/22 at 1622, Until Sat08/16/22 at 0821, Nausea 1148 ([facility] Hold - Provider: Admin Adt - Reason: Transfer to a Procedural area)1354 ([facility] Unhold - Provider: Admin Adt)1938 (Given - Provider: Marisa Pascual RN) Oral Chemotherapy (Inpatient Use Only) Oral 1148 ([facility] Hold - Provider: Admin Adt - Reason: Transfer to a Procedural area)1354 ([facility] Unhold - Provider: Admin Adt) 1411 ([facility] Hold - Provider: Admin Adt - Reason: Transfer to a Procedural area)1552 ([facility] Unhold - Provider: Admin Adt) polyethylene glycoL (GoLYTELY) BOWEL PREP powder for solution JUG (236g diluted to 4000 mL) 2,000 mL 2,000 mL, Oral, ONCE PRN, 1 dose, Starting on 08/15/22 at 1800, Until Sat08/17/22 at 1948, If [...] be dissolved in 4000 mL., Routine 1411 ([facility] Hold - Provider: Admin Adt - Reason: Transfer to a Procedural area)1552 ([facility] Unhold - Provider: Admin Adt) prochlorperazine (Compazine) (5 mg/mL) injection 10 mg 10 mg, Intravenous, EVERY 6 HOURS PRN, Starting on Yudi 08/16/22 at 0821, Until Sat08/17/22 at 1948, Nausea, Vomiting, Routine 0931 (Given - Provider: Denise Blas RN)1411 ([facility] Hold - Provider: Admin Adt - Reason: Transfer to a Procedural area)1552 ([facility] Unhold - Provider: Admin Adt) sodium chloride 0.9 % (flush) (BD PosiFlush Normal Saline 0.9) flush 5-20 mL 5-20 mL, Intravenous, EVERY 1 MIN PRN, Starting on 08/14/22 at 1622, Until Sat08/17/22 at 1948, flush, Flush pertains to all indwelling lines. Flush per protocol found in the job aid using the link provided on this medication record., Routine 1148 ([facility] Hold - Provider: Admin Adt - Reason: [...] Procedural area)1552 (NOV Unhold - Provider: Admin Adt)2111 (Given - Provider: Denzel Arboleda, NUZHAT) documented in this encounter Care Teams Porcelain Enameler Relationship Specialty Start Date End Date Kennedi Shaver MD [address] [place] [address] PCP - General Family Medicine 08/02/20 06/24/24 documented as of this encounter
--- OUTSIDE RECORDS SUMMARY | 2024-09-11 15:24 | XMS_ITS | Encounter Summary ---
Author Organization [facility] [address] Care Team Providers Care Client Delivery Specialist Name Role Phone Kennedi Shaver MD Primary Care Provider [phone] Reason for Visit * Reason Comments Specialty Pharmacy Review Abiraterone 50 0mg tablet Encounter Details Date Type Department Care Team (Late st Contact Info) Description 07/10/2022 Specialty [place] [address] Deborah Soares, [facility] Social History Tobacco Use Types Packs/Day [...] encounter Progress Notes * Deborah Soares - 07/10/2022 11:59 PM EDT [facility] has completed a benefits investigation for Murillo Jessica Raf to review their eligibility to fill at [facility]. Per patient's medication list they are prescribedAbiraterone 500mg tablet and the medication is able to be filled at [facility]. The patient is eligible to fill the medication through Specialty Pharmacy with a $0 copay. Currently filling with [facility] Specialty. The patient has declined multiple time to filling with . documented in this encounter Plan of Treatment Upcoming Encounters Date Type Department Care Team (Latest Contact Info) Description 09/29/2024 4:30 PM EST Hospital Encounter [place] [phone] Lizet Wilkes MD [facility] [place] [address] 09/29/2024 4:30 PM EST - 09/29/2024 5:00 PM EST Surgery [place] [phone] Lizet Wilkes MD [facility] [place] [address] EGD, UPPER GI ENDOSCOPY (WRVU 2.09) 11/09/2024 10:00 AM EST Laboratory Appointment Lab at [place] Hematology Oncology [address] [place] [phone] 11/09/2024 11:00 AM EST Office Visit Hematology [place] [phone] Faith Caba MD [facility] DR [place] [address] 11/09/2024 12:00 PM EST Appointment Hematology [place] [phone] Scheduled Procedures Name Priority Associated Diagnoses Date/Ti me EGD, UPPER GI ENDOSCOPY (WRVU 2.09) Gastroesophageal reflux disease with esophagitis, unspecified whether hemorrhage 09/29/2024 4:30 PM EST documented as of this encounter Goals Goal Patient Goal Type Associated Problems Recent Progress Patient-Stated? Author DH Home Medication Compliance and Understanding Patient Facing Action Plan No Curly Andres, [facility] Note: The patient? s goal is to continue positive results of oral chemotherapy by maintaining improved labs PSA or stable scans in clinic for the upcoming year. documented as of this encounter Visit Diagnoses Not on filedocumented in this encounter Care Teams Client Delivery Specialist Relationship Specialty Start Date End Date Kennedi Shaver MD [facility] [address] [place] [address] PCP - General Family Medicine 08/02/20 06/24/24 documented as of this encounter
--- OUTSIDE RECORDS SUMMARY | 2024-09-11 15:24 | XMS_ITS | Encounter Summary ---
[place] [address] Care Team Providers Care Bindery Helper Name Role Phone Kennedi Shaver MD Primary Care Provider [phone] Reason for Referral * Consultation (Routine) - Closed Specialty Diagnoses / Procedures Referred By Blaine peralta Referred To Contact Orthopaedics Diagnoses Pain in both knees, unspecified chronicity Kennedi Shaver MD [address] [place] [address] [facility] Orthopa[facility]ics [address] [place] [phone] Referral ID Status Reason Start Date Expiration Date V isits Requested Visits Authorized [id number] Closed Consult, Test & Treat PCP Updated and/or Approved 06/29/2022 06/29/2023 12 12 Encounter Details Date Type Department Care Team (Latest Contact Info) Description 06/29/2022 Transcribe Orders eDH Incoming Referrals [phone] Kennedi Shaver MD [address] [place] [address] Pain in both knees, unspecified chronicity Social History Tobacco Use Types [...] 4:30 PM EST Hospital Encounter Gastroenterology at [address] Lizet Wilkes MD [facility] [place] [address] 09/29/2024 4:30 PM EST - 09/29/2024 5:00 PM EST Surgery Gastroenterology at [place] [phone] Lizet Wilkes MD [facility] [place] [address] EGD, UPPER GI ENDOSCOPY (WRVU 2.09) 11/09/2024 10:00 AM EST Laboratory Appointment Lab at [facility] Hematology Oncology [address] [place], [place] [phone] 11/09/2024 11:00 AM EST Office Visit Hematology and Oncology at [place] [address] Faith Caba MD [facility] [place] [address] 11/09/2024 12:00 PM EST Appointment Hematology and Oncology at [place] [phone] Scheduled Procedures Name Priority Associated Diagnoses Date/Ti me EGD, UPPER GI ENDOSCOPY (WRVU 2.09) Gastroesophageal reflux disease with esophagitis, unspecified whether hemorrhage 09/29/2024 4:30 PM EST Scheduled Referrals Name Type Priority Associated Diagnoses Orde r Schedule Referral to Orthopaedics Outpatient Referral Routine Pain in both knees, unspecified chronicity Ordered: 06/29/2022 documented as of this encounter Goals Goal Patient Goal Type Associated Problems Recent Progress Patient-Stated? Author DH Home Medication Compliance and Understanding Patient Facing Action Plan Curly Nicolas, [facility] Note: The patient? s goal is to continue positive results of oral chemotherapy by maintaining improved labs PSA or stable scans in clinic for the upcoming year. documented as of this encounter Visit Diagnoses Diagnosis Pain in both knees, unspecified chronicity Gastroesophageal reflux disease with esophagitis, unspecified whether hemorrhage documented in this encounter Care Teams Bindery Helper Relationship Specialty Start Date End Date Kennedi Shaver MD [address] [place] [address] PCP - General Family Medicine 08/02/20 06/24/24 documented as of this encounter
--- OUTSIDE RECORDS SUMMARY | 2024-09-11 15:24 | XMS_ITS | Encounter Summary ---
[place] [address] Care Team Providers Care Diamond Driller Helper Name Role Phone Kennedi Shaver MD Primary Care Provider [phone] Reason for Visit * Treatment/Therapy Plan Authorization (Routine) - Authorized Specialty Diagnoses / Procedures Referred By Blaien peralta Referred To Contact Diagnoses Neoplasm of prostate, 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 Procedures TC LEUPROLIDE ACETATE, PER 1MG, INJECTION (LUPRON) Faith Caba MD [facility] [address] [place] [address] [facility] Hem Onc [address] [place] [address] Referral ID Status Reason Start Date Expiration Date V isits Requested Visits Authorized [id number] Authorized 09/27/2020 09/29/2024 99 99 Encounter Details Date Type Department Care Team (Latest Contact Info) Description 07/10/2022 8:41 AM EDT - 07/10/2022 11:59 PM EDT Hospital Encounter [place] [phone] Neoplasm of prostate, distant metastasis staging category [...] Progress Notes * Stephanie Woodson RN - 07/10/2022 10:53 AM EDT Patient Name: Chidi Carbone Patient Age: 76 y.o. Birthdate: 1945 Admit date: 07/10/2022 Attending Physician: No att. providers found Access visit. See MAR and/or flowsheet. documented in this encounter Plan of Treatment Upcoming Encounters Date Type Department Care Team (Latest Contact Info) Description 09/29/2024 4:30 PM EST Hospital Encounter Gastroenterology at [place] [phone] Lizet Wilkes MD [facility] [place] [address] 09/29/2024 4:30 PM EST - 09/29/2024 5:00 PM EST Surgery Gastroenterology at [place] [phone] Lizet Wilkes MD [facility] [place] [address] EGD, UPPER GI ENDOSCOPY (WRVU 2.09) 11/09/2024 10:00 AM EST Laboratory Appointment Lab at [facility] Hematology Oncology [address] [place], [place] [phone] 11/09/2024 11:00 AM EST Office Visit Hematology and Oncology at [place] [phone] Faith Caba MD [facility] [address] [place] [address] 11/09/2024 12:00 PM EST Appointment Hematology and Oncology at [place] [phone] Scheduled Procedures Name Priority Associated Diagnoses Date/Ti me EGD, UPPER GI ENDOSCOPY (WRVU 2.09) Gastroesophageal reflux disease with esophagitis, unspecified whether hemorrhage 09/29/2024 4:30 PM EST documented as of this encounter Goals Goal Patient Goal Type Associated Problems Recent Progress Patient-Stated? Author DH Home Medication Compliance and Understanding Patient Facing Action Plan Curly Nicolas, [facility] Note: The patient? s goal [...] 22.5 mg, Intramuscular, ONCE, 1 dose, On Sat07/10/22 at 1045, Routine, This agent is restricted to outpatient use. Is this drug being given as an outpatient? Yes Given 07/10/2022 10:46 AM EDT 22.5 mg Left Gluteal documented in this encounter Care Teams Diamond Driller Helper Relationship Specialty Start Date End Date Kennedi Shaver MD [facility] [address] [place] [address] PCP - General Family Medicine 08/02/20 06/24/24 documented as of this encounter
--- OUTSIDE RECORDS SUMMARY | 2024-09-11 15:24 | XMS_ITS | Encounter Summary ---
Author Organization [facility] [place] [address] Care Team Providers Care English Division Chair Name Role Phone Kennedi Shaver MD Primary Care Provider [phone] Encounter Details Date Type Department Care Team (Latest Contact Info) Description 01/09/2022 11:15 AM EDT Laboratory Appointment Lab [address] [place] [phone] Osteoporosis, unspecified osteoporosis type, unspecified pathological fracture presence; Malignant neoplasm of prostate Social History Tobacco Use Types Packs/Day Years [...] 4:30 PM EST Hospital Encounter [place] [phone] Lizet Wilkes MD [facility] [place] [address] 09/29/2024 4:30 PM EST - 09/29/2024 5:00 PM EST Surgery Gastroenterology at [place] [phone] Lizet Wilkes MD [facility] [place] [address] EGD, UPPER GI ENDOSCOPY (WRVU 2.09) 11/09/2024 10:00 AM EST Laboratory Appointment Lab at [facility] Hematology Oncology [address] [place] [phone] 11/09/2024 11:00 AM EST Office Visit Hematology [place] [phone] Faith Caba MD [facility] [address] [place] [address] 11/09/2024 12:00 PM EST Appointment Hematology [place] [phone] Scheduled Procedures Name Priority Associated Diagnoses Date/Ti me EGD, UPPER GI ENDOSCOPY (WRVU 2.09) Gastroesophageal reflux disease with esophagitis, unspecified whether hemorrhage 09/29/2024 4:30 PM EST documented as of this encounter Goals Goal Patient Goal Type Associated Problems Recent Progress Patient-Stated? Author [facility] Medication Compliance and Understanding Patient Facing Action Plan Curly Nicolas, [facility] Note: The patient? s goal is to continue positive results of oral chemotherapy by maintaining improved labs PSA or stable scans in clinic for the upcoming year. documented as of this encounter Procedures Procedure Name Priority Date/Time Associated Diagnosis Comments HC PARATHYROID HORMONE(PTH INTACT Routine 01/09/2022 11:23 AM EDT Osteoporosis, unspecified osteoporosis type, unspecified pathological fracture presence Malignant neoplasm of prostate HC CALCIUM, SERUM Routine 01/09/2022 11: 23 AM EDT Osteoporosis, unspecified osteoporosis type, unspecified pathological fracture presence Malignant neoplasm of prostate documented in this encounter Results * PTH (01/09/2022 11:23 AM EDT) Parathyroid Hormone 38 15 - 65 pg/mL [facility] Blood 01/09/2022 11:2 3 AM EDT 01/09/2022 11:35 AM EDT Narrative Resulting Agency Comment Spec In Lab Stephy Nelson MD CHEMISTRY ORDERABLES Performing Organization Address City/[facility]/ZIP Co de Phone Number [facility] [place] [address] * Calcium (01/09/2022 11:23 AM EDT) Calcium 9.4 8.5 - 10.5 mg/dL [facility] Blood 01/09/2022 11:2 3 AM EDT 01/09/2022 11:35 AM EDT Narrative Resulting Agency Comment Spec In Lab Stephy Nelson MD CHEMISTRY ORDERABLES Performing Organization Address City/[facility]/ZIP Co de Phone Number [facility] [place] [address] documented in this encounter Visit Diagnoses Diagnosis Osteoporosis, unspecified osteoporosis type, unspecified pathological fracture presence Malignant neoplasm of prostate Gastroesophageal reflux disease with esophagitis, unspecified whether hemorrhage documented in this encounter Care Teams English Division Chair Relationship Specialty Start Date End Date Kennedi Shaver MD [address] [place] [address] PCP - General Family Medicine 08/02/20 06/24/24 documented as of this encounter
--- OUTSIDE RECORDS SUMMARY | 2024-09-11 15:24 | XMS_ITS | Encounter Summary ---
Author Organization [facility] [place] [address] Care Team Providers Care Cnc Supervisor Name Role Phone Kennedi Shaver MD Primary Care Provider [phone] Encounter Details Date Type Department Care Team (Latest Contact Info) Description 04/10/2022 8:47 AM EDT - 04/10/2022 11:59 PM EDT Hospital Encounter Hematology [place] [address] Neoplasm of prostate, distant metastasis staging category [...] 4:30 PM EST Hospital Encounter [place] [address] Lizet Wilkes MD [facility] [place] [address] 09/29/2024 4:30 PM EST - 09/29/2024 5:00 PM EST Surgery [place] [address] Lizet Wilkes MD [facility] [place] [address] EGD, UPPER GI ENDOSCOPY (WRVU 2.09) 11/09/2024 10:00 AM EST Laboratory Appointment Lab at [facility] Hematology Oncology [address] [place] [phone] 11/09/2024 11:00 AM EST Office Visit Hematology [place] [address] Faith Caba MD [facility] [address] [place] [address] 11/09/2024 12:00 PM EST Appointment Hematology [place] [address] Scheduled Procedures Name Priority Associated Diagnoses Date/Ti me EGD, UPPER GI ENDOSCOPY (WRVU 2.09) Gastroesophageal reflux disease with esophagitis, unspecified whether hemorrhage 09/29/2024 4:30 PM EST documented as of this encounter Goals Goal Patient Goal Type Associated Problems Recent Progress Patient-Stated? Author [facility] Medication Compliance and Understanding Patient Facing Action Plan Curly Nicolas, [facility] Note: The patient? s goal is to continue positive results of oral chemotherapy by maintaining improved labs PSA or stable scans in clinic for the upcoming year. documented as of this encounter Procedures Procedure Name Priority Date/Time Associated Diagnosis Comments HEMOGRAM Routine 04/10/2022 8:54 AM EDT Neoplasm of prostate, 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 DIFFERENTIAL, AUTOMATED Routine 04/10/2022 8:54 AM EDT Neoplasm of prostate, 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 HC CBC,PLT & AUTO DIFF Routine 8:54 AM EDT Neoplasm of prostate, 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 HC PROSTATE SPECIFIC ANTIGEN Routine 04/10/2022 8:54 AM EDT Neoplasm of prostate, 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 COMPREHENSIVE METABOLIC PANEL Routine 04/10/2022 8:54 AM EDT Neoplasm of prostate, 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 documented in this encounter Results * (ABNORMAL) Differential, Automated (04/10/2022 8:54 AM EDT) Pathologist [facility] Neutrophil % 74.9 % [facility] Neutrophil Absolute 6.84(H) 1.70 - 6.10 x10(3)/ L [facility] Lymph % 14.7 % [facility] Lymphocytes Abs 1.3 0.9 - 3.2 x10(3)/ L [facility] Monocyte % 7.0 % [facility] Monocyte Abs 0.6 0.3 - 0.9 x10(3)/[facility] Eos % 2.1 % [facility] Eosinophils Abs 0.2 0.0 - 0.4 x10(3)/[facility] Basophil % 0.4 % [facility] Baso Absolute 0.0 0.0 - 0.1 x10(3)/ L [facility] Immature Gran % 0.90 % [facility] Comment: Immature granulocytes(IG's)percentage and absolute count will include metamyelocytes, myelocytes, and promyelocytes. Blood smears from CBCs yielding IG's will be scanned manually for concordance. If this scan disagrees with the automated IG or if promyelocytes are noted, a manual differential will be performed. Immature Gran Absolute 0.08(H) 0.00 - 0.04 x10(3)/ L [facility] Blood 04/10/2022 8:54 AM EDT 04/10/2022 8:58 AM EDT Narrative Resulting Agency Comment Spec In Lab Deborah Hector BIRTH CERTIFICATE CLERK HEMATOLOGY ORDERAB LES [facility] [place] [address] * (ABNORMAL) Hemogram (04/10/2022 8:54 AM EDT) [facility] White Blood Cell 9.1 4.0 - 9.5 x10(3)/[facility] Red Blood Cell 4.36(L) 4.58 - 5.54 x10(6)/[facility] Hemoglobin 13.2(L) 13.7 - 16.5 g/dL [facility] Hematocrit 38.9(L) 40.5 - 48.5 % [facility] Mean Cell Volume 89.2 82.9 - 93.1 fL [facility] Mean Cell Hemoglobin 30.3 27.5 - 32.1 pg [facility] Mean Cell Hemoglobin Concentration 33.9 32.0 - 35.7 g/dL [facility] Platelet 246 145 - 357 x10(3)/[facility] RDW Standard Deviation 42.2 36.0 - 45.0 [facility] RDW coefficient of variation 12.8 11.4 - 13.8 % [facility] Mean Platelet Volume 9.8 7.6 - 12.9 [facility] NRBC% auto 0.0 % [facility] NRBC Absolute 0.000 0.000 - 0.000 x10(3)/[facility] Blood 04/10/2022 8:54 AM EDT 04/10/2022 8:58 AM EDT Narrative Resulting Agency Comment Spec In Lab Deborah Hector BIRTH CERTIFICATE CLERK HEMATOLOGY ORDERAB LES [facility] [place] [address] * Comprehensive metabolic panel (non-fasting) (04/10/2022 8:54 AM EDT) Glucose 144 65 - 199 mg/dL [facility] Comment:Diabetes: >=200 mg/d L plus symptoms Blood Urea Nitrogen 17 10 - 20 mg/dL [facility] Creatinine 0.91 0.80 - 1.50 mg/dL [facility] Sodium 137 135 - 145 mmol/L [facility] Potassium 4.0 3.5 - 5.0 mmol/L [facility] Comment: Please note: ??Patients with WBC >100,000 may have falsely elevated Potassium levels. ??For accurate Potassium quantification in these patients send serum separator tube (gold top) for subsequent determinations. ??Contact the Clinical Chemistry Laboratory if there are any questions. Chloride 102 98 - 107 mmol/L [facility] Carbon Dioxide 23 22 - 31 mmol/L [facility] Anion Gap 12 5 - 15 mmol/L [facility] Calcium 9.2 8.5 - 10.5 mg/dL [facility] Protein, Total 6.6 6.1 - 8.0 g/dL [facility] Albumin 4.4 3.2 - 5.2 g/dL [facility] Aspartate Aminotransferase 17 0 - 39 unit/L [facility] Alanine Aminotransferase 15 0 - 55 unit/L [facility] Alkaline Phosphatase 91 40 - 130 unit/L [facility] Bilirubin, Total 0.9 0.2 - 1.3 mg/dL [facility] Est Glomerular Filtration Rate 87 >=60 mL/min/1. 73 m?? [facility] [...] Agency Comment Spec In Lab Deborah Hector BIRTH CERTIFICATE CLERK CHEMISTRY ORDERABL ES Performing Organization Address [facility] Co de Phone Number [facility] [place] [address] * PSA (Ultrasensitive) (04/10/2022 8:54 AM EDT) [...] Agency Comment Spec In Lab Deborah Hector BIRTH CERTIFICATE CLERK CHEMISTRY ORDERABL ES Performing Organization Address [facility] Co de Phone Number [facility] [place] [address] documented in this encounter Visit Diagnoses Diagnosis Neoplasm of prostate, 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 Gastroesophageal reflux disease with esophagitis, unspecified whether hemorrhage documented in this encounter Care Teams Cnc Supervisor Relationship Specialty Start Date End Date Kennedi Shaver MD [address] [place] [address] PCP - General Family Medicine 08/02/20 06/24/24 documented as of this encounter
--- OUTSIDE RECORDS SUMMARY | 2024-09-11 15:24 | XMS_ITS | Encounter Summary ---
Author Organization [facility] Address [facility] [place] [address] Care Team Providers Care Swat Team Member Name Role Phone Kennedi Shaver MD Primary Care Provider [phone] Encounter Details Date Type Department Care Team (Latest Contact Info) Description 07/19/2022 2:25 PM EDT - 07/19/2022 11:59 PM EDT Hospital Encounter XRay at [address] [place] [address] Kennedi Shaver MD [address] [place] [address] [id number] Pain in both knees, unspecified chronicity Discharge Disposition: Home Social History [...] mg of Tylenol in 24 hours. 12/20/2022 Provigil 100 mg Tablet take 1 tablet [...] name only. 60 tablet 11 09/12/2021 08/17/2022 tamsulosin (FLOMAX) 0.4 mg Capsule Take 0.4 [...] 4:30 PM EST Hospital [place] [address] Lizet Wilkes MD [facility] [place] [address] 09/29/2024 4:30 PM EST - 09/29/2024 5:00 PM EST [place] [phone] Lizet Wilkes MD [facility] [place] [address] EGD, UPPER GI ENDOSCOPY (WRVU 2.09) 11/09/2024 10:00 AM EST Laboratory Appointment Lab at [facility] Hematology Oncology [address] [place] [phone] 11/09/2024 11:00 AM EST Office Visit [place]ology [place] [phone] Faith Caba MD [facility] DR HEMATOLOGY [place] [address] 11/09/2024 12:00 PM EST Appointment [place]ematology [place] [address] Scheduled Orders Name Type Priority Associated Diagnoses Orde r Schedule XR Knee 1-2 Views Left (Generic) Imaging Routine Pain in both knees, unspecified chronicity 1 Occurrences starting 07/19/2022 until 07/19/2022 XR Knee 1-2 Views Right (Generic) Imaging Routine Pain in both knees, unspecified chronicity 1 Occurrences starting 07/19/2022 until 07/19/2022 Scheduled Procedures Name Priority Associated Diagnoses Date/Ti [...] Comments XR KNEE STANDING ALIGNMENT AP LAT [place] SKYLINE BILAT Routine 07/19/2022 3:08 PM EDT Pain in both knees, unspecified chronicity documented in this encounter Results * XR Knee Standing Alignment AP Lat [place] Bilat (07/19/2022 3:08 PM EDT) Anatomical Region [...] have questions please contact the health career resource specialist that requested your imaging first. ? Electronically signed by: Annabel Garsia MD, [facility] ([phone]), at 07/19/2022 4:36 PM Narrative 07/19/2022 4:36 [...] loss of bilateral medial joint spaces with awhl-by-znlk morphology, flattening of bone ends, subchondral sclerosis and osteophyte formation, 6 progressed since 2007. Bilateral small effusions. RIGHT [...] loss of bilateral medial joint spaces with rwdh-oy-vexdqwugduhkac, flattening of bone ends, subchondral sclerosis and [...] who have questions please contactthe health career resource specialist that requested your imaging first. Julio Melissa MD IMG DX ORDERABLES documented in this encounter Visit Diagnoses Diagnosis Pain in both knees, unspecified chronicity Gastroesophageal reflux disease with esophagitis, unspecified whether hemorrhage documented in this encounter Care Teams Swat Team Member Relationship Specialty Start Date End Date Kennedi Shaver MD [facility] [address] [place] [address] PCP - General Family Medicine 08/02/20 06/24/24 documented as of this encounter
--- OUTSIDE RECORDS SUMMARY | 2024-09-11 15:24 | XMS_ITS | Encounter Summary ---
Author Organization [facility] [place] [address] Care Team Providers Care Cadworx Piping Designer Name Role Phone Kennedi Shaver MD Primary Care Provider [phone] Reason for Visit * Reason Comments Follow-up Encounter Details Date Type Department Care Team (Late st Contact Info) Description 07/10/2022 10:00 AM EDT Office Visit Hematology [place] [address] Faith Caba MD [facility] [address] [place] [address] Geoffrey Bermudez APRN Wright, Heather N, [facility] HEMATOLOGY/[place] [address] Neoplasm of prostate, distant metastasis staging category [...] Sign Reading Time Taken Comments Blood Pressure 156/85 07/10/2022 9:54 AM EDT Pulse 79 07/10/2022 9:54 AM EDT Temperature 36.4 ??C (97.5 ??F) 07/10/2022 9:54 AM ED T Respiratory Rate 17 07/10/2022 9:54 AM EDT Oxygen Saturation 97% 07/10/2022 9:54 AM EDT Inhaled Oxygen Concentration - - Weight 83.3 kg (183 lb 10.3 oz) 07/10/2022 9:54 AM EDT Height 178.3 cm (5' 10.2) 07/10/2022 9:54 AM ED T Body Mass Index 26.2 07/10/2022 9:54 AM EDT documented in this encounter Patient Instructions * Patient Instructions* Geoffrey Bermudez APRN - 07/10/2022 10:00 AM EDT He will return in 3 months with labs prior and lupron injection documented in this encounter Progress Notes * Geoffrey Bermudez APRN - 07/10/2022 10:00 AM EDT Images from the original note were not included. N [facility] ONC [facility] [phone] ?? ONCOLOGY FOLLOW UP VISIT DIAGNOSIS: [...] and he is here today for lupron. He had Covid in april. He has recovered from this and is feeling better. He is having more pain in his knees and will be seeing orthopedics in about 10 days. He is taking ibuprofen for his knees when they really bother him. 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 This is really painful at times. He denies any other pain. He denies any shortness of breath, chest pain or cough. His appetite is good. He has no issues with his bowels. ROS is othewise negative. REVIEW OF SYSTEMS: As noted in HPI; all other systems were reviewed and found to be negative. PAST MEDICAL HISTORY: 1. As above 2. GERD and Sol's esophagus S/p Alli Fundoplication 3. ELevated fasting glusoce 4. S/p distant appendectomy 5. S/p tonsilectomy 6. Hypertension MEDS: Medications 07/10/22 1971 Medication Sig Taking? irbesartan (AVAPRO) 75 mg Tablet take 1 tablet by mouth once daily TO REPLACE THE LISINOPRIL DUE TOCOUGH Yes abiraterone (Zytiga) 500 mg Tablet Take 1,000 [...] Reviewed - no change PHYSICAL EXAM: BP 156/85 (Patient Position: Sitting) Pulse 79 Temp 36.4 ??C (97.5 ??F) (Temporal) Resp 17 Ht 178.3 cm (5' 10.2) Wt 83.3 kg (183 lb 10.3 oz) SpO2 97% BMI 26.20 kg/m?? ECOG PS: 0 General: NAD NCAT No cerval nodes RRR CTAB No rash No spinal tendernedd Musculoskeletal: Ambulatory without assist. Neurological: Alert & oriented, no focal deficits. Psych: Conversant, normal mood and affect. LABS: Recent Results (from the past 72 hour(s)) Comprehensive metabolic panel (non-fasting) Result Value Ref Range Glucose Lvl 103 65 - 199 mg/dL BUN 20 10 - 20 mg/dL Creatinine 0.90 0.80 - 1.50 mg/dL Sodium 141 135 - 145 mmol/L Potassium 4.0 3.5 - 5.0 mmol/L Chloride 105 98 - 107 mmol/L CO2 26 22 - 31 mmol/L Anion Gap 10 5 - 15 mmol/L Calcium 9.0 8.5 - 10.5 mg/dL Total Protein 6.5 6.1 - 8.0 g/dL Albumin 4.3 3.2 - 5.2 g/dL AST 16 0 - 39 unit/L ALT 10 0 - 55 unit/L Alk Phos 97 40 - 130 unit/L Total Bilirubin 0.9 0.2 - 1.3 mg/dL Estimated GFR 88 >=60 mL/min/1.73 m?? PSA (Ultrasensitive) Result Value Ref Range PSA Total (Ultrasensitive) <0.01 0.00 - 4.00 ng/mL Hemogram Result Value Ref Range WBC 6.4 4.0 - 9.5 x10(3)/mcL RBC 4.17 (L) 4.58 - 5.54 x10(6)/mcL Hemoglobin 12.9 (L) 13.7 - 16.5 g/dL Hematocrit 37.7 (L) 40.5 - 48.5 % MCV 90.4 82.9 - 93.1 fL MCH 30.9 27.5 - 32.1 pg MCHC 34.2 32.0 - 35.7 g/dL Platelets 242 145 - 357 x10(3)/mcL RDWSD 43.1 36.0 - 45.0 fL RDWCV 13.0 11.4 - 13.8 % MPV 9.6 7.6 - 12.9 fL nRBC % Auto 0.0 % nRBC Abs Auto 0.000 0.000 - 0.000 x10(3)/mcL Differential, Automated Result Value Ref Range Neutrophils % 60.5 % Neutr Abs (ANC) 3.84 1.70 - 6.10 x10(3)/mcL Lymphocytes % 22.2 % Lymphocytes Abs 1.4 0.9 - 3.2 x10(3)/mcL Monocytes % 11.8 % Monocyte Abs 0.8 0.3 - 0.9 x10(3)/mcL Eosinophils % 4.6 % Eosinophils Abs 0.3 0.0 - 0.4 x10(3)/mcL Basophils % 0.6 [...] with questions or concerns and he agreed. GEOFFREY BERMUDEZ APRN Oncology documented in this encounter Plan of Treatment Upcoming Encounters Date Type Department Care Team (Latest Contact Info) Description 09/29/2024 4:30 PM EST Hospital Encounter Gastroenterology at [place] [phone] Lizet Wilkes MD [facility] [place] [address] 09/29/2024 4:30 PM EST - 09/29/2024 5:00 PM EST Surgery [place] [phone] Lizet Wilkes MD [facility] [place] [address] EGD, UPPER GI ENDOSCOPY (WRVU 2.09) 11/09/2024 10:00 AM EST Laboratory Appointment Lab at [facility] Hematology Oncology [address] [place], [place] [phone] 11/09/2024 11:00 AM EST Office Visit Hematology and Oncology at [place] [phone] Faith Caba MD [facility] DR [place] [address] 11/09/2024 12:00 PM EST Appointment Hematology [place] [phone] Scheduled Procedures Name Priority Associated Diagnoses Date/Ti me EGD, UPPER GI ENDOSCOPY (WRVU 2.09) Gastroesophageal reflux disease with esophagitis, unspecified whether hemorrhage 09/29/2024 4:30 PM EST documented as of this encounter Goals Goal Patient Goal Type Associated Problems Recent Progress Patient-Stated? Author [facility] Medication Compliance and Understanding Patient Facing Action Plan No Rozolsky, Richard, [facility] Note: The patient? s goal [...] hemorrhage documented in this encounter Care Teams Cadworx Piping Designer Relationship Specialty Start Date End Date Kennedi Shaver MD [facility] [address] [place] [address] PCP - General Family Medicine 08/02/20 06/24/24 documented as of this encounter
--- OUTSIDE RECORDS SUMMARY | 2024-09-11 15:24 | XMS_ITS | Encounter Summary ---
Author Organization [facility] Address [facility] [place] [address] Care Team Providers Care Grain Drier Operator Name Role Phone Kennedi Shaver MD Primary Care Provider [phone] Reason for Visit * Consultation (Routine) - Closed Specialty Diagnoses / Procedures Referred By Blaine peralta Referred To Contact Endocrinology Diagnoses Osteoporosis, unspecified osteoporosis type, unspecified pathological fracture presence Deborah Hector, SEGMENT ASSEMBLER [address] [place] [address] [place] [address] Stephy Nelson MD [facility] [place] [address] Referral ID Status Reason Start Date Expiration Date V isits Requested Visits Authorized [id number] Closed Consult, Test & Treat 10/10/2021 10/10/2022 1 1 Encounter Details Date Type Department Care Team (Latest Contact Info) Description 10/17/2021 2:00 PM EST TH Visit (TeleHealth) [place] [phone] Stephy Nelson MD [facility] [place] [address] Osteoporosis, unspecified osteoporosis type, unspecified pathological fracture [...] Progress Notes * Stephy Nelson MD - 10/17/2021 2:00 PM EST Date of Visit: 10/17/2021 Patient Name: Chidi Carbone : 1945 PCP: Kennedi Shaver MD Reason for Referral We are asked to consult on Mr Chidi Carbone, 75yo man, for osteoporosis by Deborah Hector. He has not had any minimal minimal trauma fracture. Pt has hx of metastatic prostate cancer, 02/2017 PSA 237, now <0.01. Pt is abiredarone for it. His last BMD by [facility] DXA done on 09/2021 LS - 1.6 SD LFN -2.3 SD LH -2.2SD Distal 10/02 -1.4SD on T score 01/2017 bone scan showed: There are two foci of abnormal activity raising concern for metastases. These are located in the right frontal bone and in the distal shaft of the right Femur. Other risk factors for fracture/osteoporosis are: [] Yes [x] No Smoking, if yes, how long [] Yes [x] No Drinking alcohol. If yes, how much [x] Yes [] No Exercise If yes how long and what kind of exercise, walks 20min a day [x] Yes [] No Stomach or bowel surgery. If yes, When and what kind, had stomach ablation [] Yes [x] No Loose bowel movements. If yes, how frequently and how long [] Yes [x] No Loss of height [x] Yes [] No History of kidney stones? If yes, when and how many episodes?,x2 in 70s [] Yes [x] No Kidney or liver problems? If yes, what kind and how long? Average time spent outside in direct sun a day [] 0-5 min [] 5-10 min [] 11-15 min [] 16-20 min [] 21-25 min [] 26-30 min [x] >30 min Daily calcium intake: [] 0-100 mg [] 101-200 mg [] 201-300 mg [x] 301-400 mg from diet [] 401-500 mg [] 501-600 mg [] 601-700 mg [] 701-900 mg [x] 901-1100 mg this week started Ca pills 500mg BID [] 5812-1978 mg [] 1120-3870 mg [] Above 1500 mg Medications: Current Outpatient Medications on File Prior to Visit Medication Sig Dispense Refill ??? abiraterone (Zytiga) 500 mg Tablet Take 1,000 mg by mouth daily. Brand name only. 60 tablet 11 ??? lisinopriL (Prinivil;Zestril) 5 mg Tablet Take 5 mg by mouth daily. ??? augmented betamethasone dipropionate (DIPROLENE-AF) 0.05 % Ointment Apply topically to affectedareas on the right leg and foot twice daily for up to 2 weeks, then take 1 week off. Repeat cycle as needed. (Patient not taking: Reported on 04/11/2021) 50 g 1 ??? Provigil 100 mg Tablet take 1 [...] unknown ??? tamsulosin (FLOMAX) 0.4 mg Capsule ??? finasteride (PROSCAR) 5 mg Tablet ??? predniSONE (DELTASONE) 5 mg Tablet Take 1 tablet by mouth daily. 30 tablet 11 No current facility-administered medications on file prior to visit. [x] Yes [] No Glucocorticoid dose. When first prescribed? now [] Yes [x] No Cyclosporine dose. When first prescribed? [] Yes [x] No Phenobarbital and phenytoin. When first prescribed? [] Yes [x] No Rosiglitazone, pioglitazone. When first prescribed? [x] Yes [] No PPI. When first prescribed? [] Yes [x] No SSRI. When first prescribed? [] Yes [x] No Thiaizdes, loop diuretics. When first prescribed? [] Yes [x] No Estrogens, testosterone. When first prescribed? [] Yes [x] No Calcitonin. When first prescribed? [] Yes [x] No Aromatase inhibitors (breast CA). When first prescribed? [x] Yes [] No Androgen deprivation therapy (prostate CA). When first prescribed? [] Yes [x] No Alendronate, risedronate, ibandronate. When first prescribed? PMH: Patient Active Problem List Diagnosis Code ??? GERD (gastroesophageal reflux disease) K21.9 ??? 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 Hypertension I10 Allergy: No Known Allergies Family history: No family history on file. Hip fracture in parents: no Osteopenia/Osteoporosis: arm fx in mom in her 90s Hyperthyroidism/Hyperparathyrodism: no Social History: Social History Socioeconomic History ??? Marital status: Spouse name: Not on file ??? Number of children: Not on file ??? Years of education: Not on file ??? Highest education level: Not on file Occupational History ??? Not on file Tobacco Use ??? Smoking status: Former Smoker Years: 15.00 Quit date: 1977 Years since quittin.0 ??? Smokeless tobacco: Never Used Vaping Use ??? Vaping Use: Never used [...] on file Housing Stability: Not on file Physical Examination: Appearance: well hydrated, well nourished, oriented x 3, in nad. Labs 09/2021 CBC and Chem 10 in good range. Assessment and Plan 1. Metastatic pr cancer/ADT+prednisone use//osteoporosis: Mr Murillo A Holaday has osteoporosis, takes prednisone due to abireatarone use, has low Ca intake. A. As patient's Ca intake is 300 mg from food, but he loves dairy, just not using it, will start and do 24h urine ca in 2-3 weeks. B. Patient also doesn't have Vitamin D done; goal is 30 ng/ml and above. Will check 25, Vit D now and continue 2000U vit D, has been on it for last week. C. Will order BMD by DXA 11/2022 D. If 25 Vit D, PTH and 24h urine in good range plan to treat with zolendronic acid. E. I will schedule patient for outpatient visit at 12 weeks. Thank you for allowing me to participate in the care of this very pleasant patient. I spend 60min in chart review, labs, DXA, discussing osteoporosis and writing my note. Sincerely, Stephy Nelson MD Professor documented in this encounter Plan of Treatment Upcoming Encounters Date Type Department Care Team (Latest Contact Info) Description 09/29/2024 4:30 PM EST Hospital En[place] [phone] Lizet Wilkes MD [facility] [place] [address] 09/29/2024 4:30 PM EST - 09/29/2024 5:00 PM EST [place] [address] Lizet Wilkes MD [facility] [place] [address] EGD, UPPER GI ENDOSCOPY (WRVU 2.09) 11/09/2024 10:00 AM EST Laboratory Appointment Lab at [facility] Hematology Oncology [address] [place] [phone] 11/09/2024 11:00 AM EST Office Visit [place] [phone] Faith Caba MD [facility] DR HEMATOLOGY AND ONCOLOGY [place] [phone] 11/09/2024 12:00 PM EST Appointment [place]ology [place] [address] Scheduled Procedures Name Priority Associated Diagnoses Date/Ti me EGD, UPPER GI ENDOSCOPY (WRVU 2.09) Gastroesophageal reflux disease with esophagitis, unspecified whether hemorrhage 09/29/2024 4:30 PM EST documented as of this encounter Goals Goal Patient Goal Type Associated Problems Recent Progress Patient-Stated? Author [facility] Medication Compliance and Understanding Patient Facing Action Plan Curly Nicolas [facility] Note: The patient? s goal is to continue positive results of oral chemotherapy by maintaining improved labs PSA or stable scans in clinic for the upcoming year. documented as of this encounter Results * Creatinine, urine, 24 hour (01/18/2022 5:50 AM EDT) Cre Concentration, U24 65 mg/dL [facility] Creatinine, 24 Hour Urine 1.14 1.00 - 2.40 g/24hr [facility] Urine 01/18/2022 5:50 AM EDT 01/18/2022 6:03 PM EDT Narrative Resulting Agency Comment Spec In Lab Stephy Nelson MD URINE ORDERABLES [facility] [place] [address] * Calcium, urine, 24 hour (01/18/2022 5:50 AM EDT) Ca Concentration, U24 15.7 mg/dL [facility] Calcium, 24 Hour Urine 274.8 50.0 - 300.0 mg/24hr [facility] Comment:Reference Range: 50. 0-300.0 mg/24 hour based on diet. Urine 01/18/2022 5:50 AM EDT 01/18/2022 6:03 PM EDT Narrative Resulting Agency Comment Spec In Lab Stephy Nelson MD URINE ORDERABLES Performing Organization Address City/[facility]/ZIP Co de Phone Number [facility] [place] [address] * Calcium (01/09/2022 11:23 AM EDT) Calcium 9.4 8.5 - 10.5 mg/dL [facility] Blood 01/09/2022 11:2 3 AM EDT 01/09/2022 11:35 AM EDT Narrative Resulting Agency Comment Spec In Lab Stephy Nelson MD CHEMISTRY ORDERABLES Performing Organization Address [facility] Co de Phone Number [facility] [place] [address] * PTH (01/09/2022 11:23 AM EDT) Parathyroid Hormone 38 15 - 65 pg/mL [facility] Blood 01/09/2022 11:2 3 AM EDT 01/09/2022 11:35 AM EDT Narrative Resulting Agency Comment Spec In Lab Stephy Nelson MD CHEMISTRY ORDERABLES Performing Organization Address City/[facility] Co de Phone Number [facility] [place] [address] documented in this encounter Visit Diagnoses Diagnosis Osteoporosis, unspecified osteoporosis type, unspecified pathological fracture presence Malignant neoplasm of prostate Gastroesophageal reflux disease with esophagitis, unspecified whether hemorrhage documented in this encounter Care Teams Grain Drier Operator Relationship Specialty Start Date End Date Kennedi Shaver MD [address] [place] [address] PCP - General Family Medicine 08/02/20 06/24/24 documented as of this encounter
--- OUTSIDE RECORDS SUMMARY | 2024-09-11 15:24 | XMS_ITS | Encounter Summary ---
[place] [address] Care Team Providers Care Chief Radiology Name Role Phone Kennedi Shaver MD Primary Care Provider [phone] Reason for Visit * Treatment/Therapy Plan Authorization (Routine) - Authorized Specialty Diagnoses / Procedures Referred By Blaine peralta Referred To Contact Diagnoses Neoplasm of prostate, 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 Procedures TC LEUPROLIDE ACETATE, PER 1MG, INJECTION (LUPRON) Faith Caba MD [facility] DR HEMATOLOGY [place] [address] [facility] [address] [place] [address] Referral ID Status Reason Start Date Expiration Date V isits Requested Visits Authorized [id number] Authorized 09/27/2020 09/29/2024 99 99 Encounter Details Date Type Department Care Team (Latest Contact Info) Description 01/09/2022 9:12 AM EDT - 01/09/2022 11:59 PM EDT Hospital Encounter Hematology [place] [address] Neoplasm of prostate, distant metastasis staging category [...] Progress Notes * Stephanie Woodson RN - 01/09/2022 11:03 AM EDT Patient Name: Chidi Carbone Patient Age: 76 y.o. Birthdate: 1945 Admit date: 01/09/2022 Attending Physician: No att. providers found Access visit. See MAR and/or flowsheet. documented in this encounter Plan of Treatment Upcoming Encounters Date Type Department Care Team (Latest Contact Info) Description 09/29/2024 4:30 PM EST Hospital Encounter Gastroenterology at [place] [phone] [facility] [place] [address] 09/29/2024 4:30 PM EST - 09/29/2024 5:00 PM EST Surgery Gastroenterology at [place] [phone] [facility] [place] [address] EGD, UPPER GI ENDOSCOPY (WRVU 2.09) 11/09/2024 10:00 AM EST Laboratory Appointment Lab at [facility] Hematology Oncology [address] [place], [place] [phone] 11/09/2024 11:00 AM EST Office Visit Hematology and Oncology at [place] [phone] [facility] DR [place] [address] 11/09/2024 12:00 PM EST Appointment Hematology and Oncology at [place] [phone] Scheduled Procedures Name Priority Associated Diagnoses Date/Ti [...] 22.5 mg, Intramuscular, ONCE, 1 dose, On Sat01/09/22 at 1115, Routine, This agent is restricted to outpatient use. Is this drug being given as an outpatient? Yes Given 01/09/2022 10:58 AM EDT 22.5 mg Left Gluteal documented in this encounter Care Teams Chief Radiology Relationship Specialty Start Date End Date Kennedi Shaver MD [facility] [address] [place] [address] PCP - General Family Medicine 08/02/20 06/24/24 documented as of this encounter
--- OUTSIDE RECORDS SUMMARY | 2024-09-11 15:24 | XMS_ITS | Encounter Summary ---
Author Organization [facility] [place] [address] Care Team Providers Care Biological Sciences Instructor Name Role Phone Kennedi Shaver MD Primary Care Provider Reason for Visit * Reason Comments Specialty Pharmacy Review Zytiga Tablet Encounter Details Date Type Department Care Team (Late st Contact Info) Description 04/10/2022 Specialty [place] [address] Sintia Bond, [facility] Social History Tobacco Use Types Packs/Day [...] as of this encounter Progress Notes * Sintia Bond - 04/10/2022 11:59 PM EDT The [facility] has completed a benefits investigation for Chidi Carbone to review their eligibility to fill at [facility]. Per patient's medication list they are prescribedZytiga 500mg tablet and the medication is able to be filled at the [facility]. documented in this encounter Plan of Treatment Upcoming Encounters Date Type Department Care Team (Latest Contact Info) Description 09/29/2024 4:30 PM EST Hospital Encounter [place] [address] Lizet Wilkes MD [facility] [place] [address] 09/29/2024 4:30 PM EST - 09/29/2024 5:00 PM EST Surgery [place] [phone] Lizet Wilkes MD [facility] [place] [address] EGD, UPPER GI ENDOSCOPY (WRVU 2.09) 11/09/2024 10:00 AM EST Laboratory Appointment Lab at [place] Hematology Oncology [address] [place] [phone] 11/09/2024 11:00 AM EST Office Visit Hematology [place] [phone] Faith Caba MD [facility] [place] [address] 11/09/2024 12:00 PM EST Appointment Hematology [place] [phone] Scheduled Procedures Name Priority Associated Diagnoses Date/Ti me EGD, UPPER GI ENDOSCOPY (WRVU 2.09) Gastroesophageal reflux disease with esophagitis, unspecified whether hemorrhage 09/29/2024 4:30 PM EST documented as of this encounter Goals Goal Patient Goal Type Associated Problems Recent Progress Patient-Stated? Author [facility] Medication Compliance and Understanding Patient Facing Action Plan Curly Nicolas, RPH Note: The patient? s goal is to continue positive results of oral chemotherapy by maintaining improved labs PSA or stable scans in clinic for the upcoming year. documented as of this encounter Visit Diagnoses Not on filedocumented in this encounter Care Teams Biological Sciences Instructor Relationship Specialty Start Date End Date Kennedi Shaver MD [address] [place] [address] PCP - General Family Medicine 08/02/20 06/24/24 documented as of this encounter
--- OUTSIDE RECORDS SUMMARY | 2024-09-11 15:25 | XMS_ITS | Encounter Summary ---
[place] [address] Care Team Providers Care Tooling Specialist Name Role Phone Kennedi Shaver MD Primary Care Provider Encounter Details Date Type Department Care Team (Late st Contact Info) Description 01/10/2021 9:00 AM EDT Office Visit [place] [address] Faith Caba MD [facility] [address] [place] [address] Prostate cancer metastatic to multiple sites Social [...] Sign Reading Time Taken Comments Blood Pressure 114/73 01/10/2021 8:39 AM EDT Pulse 80 01/10/2021 8:39 AM EDT Temperature 36 ??C (96.8 ??F) 01/10/2021 8:39 AM EDT Respiratory Rate 15 01/10/2021 8:39 AM EDT Oxygen Saturation 98% 01/10/2021 8:39 AM EDT Inhaled Oxygen Concentration - - Weight 84.9 kg (187 lb 3.2 oz) 01/10/2021 8:39 A M EDT Height 178.9 cm (5' 10.43) 01/10/2021 8:39 AM E DT Body Mass Index 26.53 01/10/2021 8:39 AM EDT documented in this encounter Progress Notes * Faith Caba MD - 01/10/2021 9:00 AM EDT Images from the original note were not included. N [facility] HEM ONC [facility] [phone] ?? ONCOLOGY FOLLOW UP VISIT DIAGNOSIS: Metastatic [...] 09/2018) HPI: Chidi Carbone presents today for f/u. Has been well. However notes depression episode that his of going through, which has been hard on him. Doing his best to support her. 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 On ROS, has rare hot flushes that are manageable. Denies pain, urinary sx. REVIEW OF SYSTEMS: As noted in HPI/Interval History; all other systems were reviewed and found to be negative. PAST MEDICAL HISTORY: 1. As above 2. GERD and Sol's esophagus S/p Alli Fundoplication 3. ELevated fasting glusoce 4. S/p distant appendectomy 5. S/p tonsilectomy MEDS: Medications 01/10/21 0104 Medication Sig Taking? lisinopriL (Prinivil;Zestril) 5 mg Tablet Take 5 mg by mouth daily. Yes augmented betamethasone dipropionate (DIPROLENE-AF) 0.05 % Ointment Apply topically to affected areas on the right leg and foot twice daily for up to 2 weeks, then take 1 week off. Repeat cycle as needed. Yes abiraterone (Zytiga) 500 mg Tablet Take 1,000 mg by mouth daily. Yes Provigil 100 [...] Take 1 tablet by mouth daily. Yes ALLERGY: No Known Allergies FAMILY HX: Reviewed no change SOCIAL HX: Reviewed - no change PHYSICAL EXAM: BP 114/73 (Patient Position: Sitting) Pulse 80 Temp 36 ??C (96.8 ??F) (Temporal) Resp 15 Ht178.9 cm (5' 10.43) Wt 84.9 kg (187 lb 3.2 oz) SpO2 98% BMI 26.53 kg/m?? PS=0 Constitutional: Well appearing NCAT Eyes: Non-injected, anicteric. Resp: CTAB RRR Skin: no rash Musculoskeltal: no spine tenderness LABS: Recent Results (from the past 24 hour(s)) Hemogram Result Value Ref Range WBC 6.4 4.0 - 9.5 x10(3)/mcL RBC 4.30 (L) 4.58 - 5.54 x10(6)/mcL Hemoglobin 12.8 (L) 13.7 - 16.5 gm/dL Hematocrit 39.6 (L) 40.5 - 48.5 % MCV 92.1 82.9 - 93.1 fL MCH 29.8 27.5 - 32.1 pg MCHC 32.3 32.0 - 35.7 gm/dL Platelets 250 145 - 357 x10(3)/mcL RDWSD 43.3 36.0 - 45.0 fL RDWCV 12.7 11.4 - 13.8 % MPV 10.0 7.6 - 12.9 fL nRBC % Auto 0.0 % nRBC Abs Auto 0.000 0.000 - 0.000 x10(3)/mcL Differential, Automated Result Value Ref Range Neutrophils % 64.3 % Neutr Abs (ANC) 4.14 1 - 6 x10(3)/mcL Lymphocytes % 19.9 % Lymphocytes Abs 1.3 0.9 - 3.2 x10(3)/mcL Monocytes % 11.0 % Monocyte Abs 0.7 0.3 - 0.9 x10(3)/mcL Eosinophils % 3.9 % Eosinophils Abs 0.2 0.0 - 0.4 x10(3)/mcL Basophils % 0.6 % Basophils Abs 0.0 0.0 - 0.1 x10(3)/mcL Immature Gran % 0.30 % Julisa Gran Abs 0.02 0.00 - 0.04 x10(3)/mcL IMAGING STUDIES: No new ASSESSMENT AND PLAN: 75 y.o. M has metastatic prostate cancer with extensive disease involving nodes and bones. He is oncombination lupron+zytiga as first line therapy and has maintained excellent clinical response. PSAremains undetectable. Clinically, no sx related to disease and AEs are manageable. Offered support for what he is going through. We are available to help if there is Hypertension: started lisinopril and BP better Mr. Carbone asked appropriate questions and verbalized good understanding of and agreement with theplan. I encouraged him to call anytime with questions or concerns and he agreed. Faith Caba MD documented in this encounter Plan of Treatment Upcoming Encounters Date Type Department Care Team (Latest Contact Info) Description 09/29/2024 4:30 PM EST Hospital Encounter Gastroenterology at [place] [phone] Lizet Wilkes MD [facility] [place] [address] 09/29/2024 4:30 PM EST - 09/29/2024 5:00 PM EST Surgery Gastroenterology at [place] [phone] Lizet Wilkes MD [facility] [place] [address] EGD, UPPER GI ENDOSCOPY (WRVU 2.09) 11/09/2024 10:00 AM EST Laboratory Appointment Lab at [facility] Hematology Oncology [address] [place] [phone] 11/09/2024 11:00 AM EST Office Visit Hematology and Oncology at [place] [phone] Faith Caba MD [facility] DR [place] [address] 11/09/2024 12:00 PM EST Appointment [place] [phone] Scheduled Procedures Name Priority Associated [...] of this encounter Results * PSA (Ultrasensitive) (04/11/2021 9:21 AM EDT) Pathologist [facility] Prostate Specific Antigen (Ultrasensitive ) <0.01 0.00 - 4.00 ng/mL [facility] Comment: PLEASE NOTE: The above reference interval is intended for healthy males with an intact prostate. Values within this reference interval may indicate recurrence in men who have undergone radical prostatectomy. Blood 04/11/2021 9:21 AM EDT 04/11/2021 9:27 AM EDT Narrative Resulting Agency Comment Spec In Lab Faith Caba MD CHEMISTRY ORDERABLES [facility] [place] [address] * Comprehensive metabolic panel (non-fasting) (04/11/2021 9:21 AM EDT) [facility] Glucose 110 65 - 199 mg/dL [facility] Comment:Diabetes: >=200 mg/d L plus symptoms Blood Urea Nitrogen 16 10 - 20 mg/dL [facility] Creatinine 0.96 0.80 - 1.50 mg/dL [facility] Sodium 141 135 - 145 mmol/L [facility] Potassium 4.4 3.5 - 5.0 mmol/L [facility] Comment: Please note: ??Patients with WBC >100,000 may have falsely elevated Potassium levels. ??For accurate Potassium quantification in these patients send serum separator tube (gold top) for subsequent determinations. ??Contact the Clinical Chemistry Laboratory if there are any questions. Chloride 104 98 - 107 mmol/L [facility] Carbon Dioxide 25 22 - 31 mmol/L [facility] Anion Gap 12 5 - 15 mmol/L [facility] Calcium 9.2 8.5 - 10.5 mg/dL [facility] Protein, Total 6.9 6.1 - 8.0 gm/dL [facility] Albumin 4.4 3.2 - 5.2 gm/dL [facility] Aspartate Aminotransferase 16 0 - 39 unit/L [facility] Alanine Aminotransferase 11 0 - 55 unit/L [facility] Alkaline Phosphatase 109 40 - 130 unit/L [facility] Bilirubin, Total 1.1 0.2 - 1.3 mg/dL [facility] Est Glomerular Filtration Rate 76 >=60 mL/min/1. 73 m?? [facility] Comment: This patient? s estimated glomerular filtration rate (eGFR) is between 76 mL/min/1.73 m2 (patients with less muscle mass per kg body weight) and 89 mL/min/1.73 m2 (patients with more muscle mass [...] and symptoms in addition to eGFR. Blood 04/11/2021 9:21 AM EDT 04/11/2021 9:27 AM EDT Narrative Resulting Agency Comment Spec In Lab Faith Caba MD CHEMISTRY ORDERABLES [facility] [place] [address] documented in this encounter Visit Diagnoses Diagnosis Prostate cancer metastatic to multiple sites Malignant neoplasm of prostate Gastroesophageal reflux disease with esophagitis, unspecified whether hemorrhage documented in this encounter Care Teams Tooling Specialist Relationship Specialty Start Date End Date Kennedi Shaver MD [facility] [address] [place] [address] PCP - General Family Medicine 08/02/20 06/24/24 documented as of this encounter
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
--- OUTSIDE RECORDS SUMMARY | 2024-09-11 15:25 | XMS_ITS | Encounter Summary ---
Author Organization [facility] [place] [address] [address] Care Team Providers Care Tube Building Machine Operator Name Role Phone Kennedi Shaver MD Primary Care Provider [phone] Reason for Visit * Reason Comments Follow-up Encounter Details Date Type Department Care Team (Late st Contact Info) Description 04/11/2021 10:30 AM EDT Office Visit Hematology [place] [address] Faith Caba MD [facility] [address] [place] [address] [address] [place] [address] Neoplasm of prostate, distant metastasis staging category [...] Sign Reading Time Taken Comments Blood Pressure 163/90 04/11/2021 10:32 AM EDT Pulse 78 04/11/2021 10:32 AM EDT Temperature 37.1 ??C (98.8 ??F) 04/11/2021 10:32 AM E DT Respiratory Rate 18 04/11/2021 10:32 AM EDT Oxygen Saturation 94% 04/11/2021 10:32 AM EDT Inhaled Oxygen Concentration - - Weight 84.8 kg (187 lb) 04/11/2021 10:32 AM EDT Height 178.3 cm (5' 10.2) 04/11/2021 10:32 AM E DT Body Mass Index 26.68 04/11/2021 10:32 AM EDT documented in this encounter Progress Notes * Faith Caba MD - 04/11/2021 10:30 AM EDT Images from the original note were not included. N [facility] HEM ONC [facility] [address] ?? ONCOLOGY FOLLOW UP VISIT DIAGNOSIS: Metastatic [...] HPI: Chidi Carbone presents today for f/u. Overall doing better since our last visit - mainly relatedto his 's major depressive episode. She is finally recovering and able to keep stable medication regimen. 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 Otherwise denies new sx. Notes heat intolerance but no ky hot flushes. On ROS, Denies pain, urinary sx. Has some slight decline in energy reserve but this is not slowing him down significantly. REVIEW OF SYSTEMS: As noted in HPI/Interval History; all other systems were reviewed and found to be negative. PAST MEDICAL HISTORY: 1. As above 2. GERD and Sol's esophagus S/p Alli Fundoplication 3. ELevated fasting glusoce 4. S/p distant appendectomy 5. S/p tonsilectomy MEDS: Medications 04/11/21 1032 Medication Sig Taking? abiraterone (Zytiga) 500 mg Tablet Take 1,000 mg by mouth daily. Brand name only. Yes lisinopriL (Prinivil;Zestril) 5 mg Tablet Take 5 mg by mouth daily. Yes Provigil 100 [...] needed. Patient not taking: Reported on 04/11/2021 pantoprazole EC (Protonix) 40 mg Tablet, Delayed Release (E.C.) take 1 tablet by mouth twice a day ALLERGY: No Known Allergies FAMILY HX: Reviewed no change SOCIAL HX: Reviewed - no change PHYSICAL EXAM: BP 163/90 (Patient Position: Sitting) Pulse 78 Temp 37.1 ??C (98.8 ??F) (Temporal) Resp 18 Ht 178.3 cm (5' 10.2) Wt 84.8 kg (187 lb) SpO2 94% BMI 26.68 kg/m?? PS=0 Constitutional: Well appearing NCAT Eyes: Non-injected, anicteric. Resp: CTAB RRR Skin: no rash Musculoskeltal: no spine tenderness LABS: Recent Results (from the past 24 hour(s)) PSA (Ultrasensitive) Result Value Ref Range PSA Total (Ultrasensitive) <0.01 0.00 - 4.00 ng/mL Comprehensive metabolic panel (non-fasting) Result Value Ref Range Glucose Lvl 110 65 - 199 mg/dL BUN 16 10 - 20 mg/dL Creatinine 0.96 0.80 - 1.50 mg/dL Sodium 141 135 - 145 mmol/L Potassium 4.4 3.5 - 5.0 mmol/L Chloride 104 98 - 107 mmol/L CO2 25 22 - 31 mmol/L Anion Gap 12 5 - 15 mmol/L Calcium 9.2 8.5 - 10.5 mg/dL Total Protein 6.9 6.1 - 8.0 gm/dL Albumin 4.4 3.2 - 5.2 gm/dL AST 16 0 - 39 unit/L ALT 11 0 - 55 unit/L Alk Phos 109 40 - 130 unit/L Total Bilirubin 1.1 0.2 - 1.3 mg/dL Estimated GFR 76 >=60 mL/min/1.73 m?? Hemogram Result Value Ref Range WBC 7.3 4.0 - 9.5 x10(3)/mcL RBC 4.41 (L) 4.58 - 5.54 x10(6)/mcL Hemoglobin 13.3 (L) 13.7 - 16.5 gm/dL Hematocrit 39.1 (L) 40.5 - 48.5 % MCV 88.7 82.9 - 93.1 fL MCH 30.2 27.5 - 32.1 pg MCHC 34.0 32.0 - 35.7 gm/dL Platelets 238 145 - 357 x10(3)/mcL RDWSD 42.8 36.0 - 45.0 fL RDWCV 13.1 11.4 - 13.8 % MPV 9.7 7.6 - 12.9 fL nRBC % Auto 0.0 % nRBC Abs Auto 0.000 0.000 - 0.000 x10(3)/mcL Differential, Automated Result Value Ref Range Neutrophils % 72.3 % Neutr Abs (ANC) 5.26 1 - 6 x10(3)/mcL Lymphocytes % 16.4 % Lymphocytes Abs 1.2 0.9 - 3.2 x10(3)/mcL Monocytes % 8.7 % Monocyte Abs 0.6 0.3 - 0.9 x10(3)/mcL Eosinophils % 1.9 % Eosinophils Abs 0.1 0.0 - 0.4 x10(3)/mcL Basophils % 0.4 % Basophils Abs 0.0 0.0 - 0.1 [...] disease related sx and no significant AEs I suspect some of his low energy is related to ADT/edmar in addition to age We will discuss and plan dexa later this year Labs reviewed and ok to cont current therapy. Hypertension: started lisinopril and BP better Mr. Carbone asked appropriate questions and verbalized good understanding of and agreement with theplan. I encouraged him to call anytime with questions or concerns and he agreed. Faith Caba MD documented in this encounter Plan of Treatment Upcoming Encounters Date Type Department Care Team (Latest Contact Info) Description 09/29/2024 4:30 PM EST Hospital Encounter [place] [address] Lizet Wilkes MD [facility] [place] [address] 09/29/2024 4:30 PM EST - 09/29/2024 5:00 PM EST Surgery [place] [phone] Lizet Wilkes MD [facility] [place] [address] EGD, UPPER GI ENDOSCOPY (WRVU 2.09) 11/09/2024 10:00 AM EST Laboratory Appointment Lab at [facility] Hematology Oncology [address] [place] [phone] 11/09/2024 11:00 AM EST Office Visit Hematology [place] [phone] Faith Caba MD [facility] [address] [place] [address] 11/09/2024 12:00 PM EST Appointment Hematology [place] [phone] Scheduled Procedures Name Priority Associated Diagnoses Date/Ti [...] of this encounter Results * PSA (Ultrasensitive) (07/11/2021 8:00 AM EDT) Prostate Specific Antigen (Ultrasensitive ) <0.01 0.00 - 4.00 ng/mL [facility] Comment: PLEASE NOTE: The above reference interval is intended for healthy males with an intact prostate. Values within this reference interval may indicate recurrence in men who have undergone radical prostatectomy. Blood 07/11/2021 8:00 AM EDT 07/11/2021 8:09 AM EDT Narrative Resulting Agency Comment Spec In Lab Faith Caba MD CHEMISTRY ORDERABLES [facility] [place] [address] * Comprehensive metabolic panel (non-fasting) (07/11/2021 8:00 AM EDT) Glucose 106 65 - 199 mg/dL [facility] Comment:Diabetes: >=200 mg/d L plus symptoms Blood Urea Nitrogen 17 10 - 20 mg/dL [facility] Creatinine 0.84 0.80 - 1.50 mg/dL [facility] Sodium 142 135 - 145 mmol/L [facility] Potassium 3.9 3.5 - 5.0 mmol/L [facility] Comment: Please note: ??Patients with WBC >100,000 may have falsely elevated Potassium levels. ??For accurate Potassium quantification in these patients send serum separator tube (gold top) for subsequent determinations. ??Contact the Clinical Chemistry Laboratory if there are any questions. Chloride 106 98 - 107 mmol/L [facility] Carbon Dioxide 27 22 - 31 mmol/L [facility] Anion Gap 9 5 - 15 mmol/L [facility] Calcium 9.0 8.5 - 10.5 mg/dL [facility] Protein, Total 6.4 6.1 - 8.0 g/dL [facility] Albumin 4.2 3.2 - 5.2 g/dL [facility] Aspartate Aminotransferase 14 0 - 39 unit/L [facility] Alanine Aminotransferase 12 0 - 55 unit/L [facility] Alkaline Phosphatase 98 40 - 130 unit/L [facility] Bilirubin, Total 0.8 0.2 - 1.3 mg/dL [facility] Est Glomerular Filtration Rate 85 >=60 mL/min/1. 73 m?? [facility] Comment: This patient? s estimated glomerular filtration rate (eGFR) is between 85 mL/min/1.73 m2 (patients with less muscle mass per kg body weight) and 99 mL/min/1.73 m2 (patients with more muscle mass [...] and symptoms in addition to eGFR. Blood 07/11/2021 8:00 AM EDT 07/11/2021 8:09 AM EDT Narrative Resulting Agency Comment Spec In Lab Faith Caba MD CHEMISTRY ORDERABLES Performing Organization Address City/State/[facility] Co de Phone Number [facility] [place] [address] documented in this encounter Visit Diagnoses Diagnosis Neoplasm of prostate, 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 Gastroesophageal reflux disease with esophagitis, unspecified whether hemorrhage documented in this encounter Care Teams Tube Building Machine Operator Relationship Specialty Start Date End Date Kennedi Shaver MD [address] [place] [address] PCP - General Family Medicine 08/02/20 06/24/24 documented as of this encounter
--- OUTSIDE RECORDS SUMMARY | 2024-09-11 15:25 | XMS_ITS | Encounter Summary ---
[place] [address] Care Team Providers Care Newspaper Editor Managing Name Role Phone Kennedi Shaver MD Primary Care Provider [phone] Encounter Details Date Type Department Care Team (Late st Contact Info) Description 03/30/2021 Orders Only Hematology [place] [address] HEMATOLOGY AND ONCOLOGY [place], [place] [address] Neoplasm of prostate, distant metastasis staging category [...] (Latest Contact Info) Description 09/29/2024 4:30 PM [facility] Hospital Encounter [place] [address] Lizet Wilkes MD [facility] [place] [address] 09/29/2024 4:30 PM EST - 09/29/2024 5:00 PM EST Surgery Gastroenterology at [place] [phone] Lizet Wilkes MD [facility] [place] [address] EGD, UPPER GI ENDOSCOPY (WRVU 2.09) 11/09/2024 10:00 AM EST Laboratory Appointment [place] [facility] [place] [address] [place], [place] [phone] 11/09/2024 11:00 AM EST Office Visit Hematology and Oncology at [place] [phone] Faith Caba MD [facility] DR HEMATOLOGY [place] [address] 11/09/2024 12:00 PM EST Appointment Hematology and Oncology at [place] [phone] Scheduled Procedures Name Priority Associated Diagnoses Date/Ti [...] hemorrhage documented in this encounter Care Teams Newspaper Editor Managing Relationship Specialty Start Date End Date Kennedi Shaver MD [address] [facility] [address] [place] [address] PCP - General Family Medicine 08/02/20 06/24/24 documented as of this encounter
--- OUTSIDE RECORDS SUMMARY | 2024-09-11 15:25 | XMS_ITS | Encounter Summary ---
Author Organization [facility] [place] [address] Care Team Providers Care Proof Inspector Name Role Phone Kennedi Shaver MD Primary Care Provider [phone] Reason for Visit * Reason Comments Specialty Pharmacy Review Abiraterone Encounter Details Date Type Department Care Team (Late st Contact Info) Description 04/11/2021 Specialty [place] [address] Joaquina Farrell Social History Tobacco Use Types Packs/Day Years [...] as of this encounter Progress Notes * Joaquina Farrell - 04/11/2021 1:42 PM EDT The - Specialty Pharmacy has completed a benefits investigation for Chidi Carbone to review their eligibility to fill at [facility]. Per patient's medication list they are prescribedABIRTAERONE and the medication is able to be filled at the [facility]. Fills with [facility]. documented in this encounter Plan of Treatment Upcoming Encounters Date Type Department Care Team (Latest Contact Info) Description 09/29/2024 4:30 PM EST Hospital Encounter [place] [phone] Lizet Wilkes MD [facility] [place] [address] 09/29/2024 4:30 PM EST - 09/29/2024 5:00 PM EST Surgery [place] [phone] Lizet Wilkes MD [facility] [place] [address] EGD, UPPER GI ENDOSCOPY (WRVU 2.09) 11/09/2024 10:00 AM EST Laboratory Appointment Lab at [facility] [place]ology Oncology [address] [place] [phone] 11/09/2024 11:00 AM EST Office Visit Hematology [place] [phone] Faith Caba MD [facility] [address] [place] [address] 11/09/2024 12:00 PM EST Appointment Hematology [place] [phone] Scheduled Procedures Name Priority Associated Diagnoses Date/Ti me EGD, UPPER GI ENDOSCOPY (WRVU 2.09) Gastroesophageal reflux disease with esophagitis, unspecified whether hemorrhage 09/29/2024 4:30 PM EST documented as of this encounter Goals Goal Patient Goal Type Associated Problems Recent Progress Patient-Stated? Author [facility] [place] Medication Compliance and Understanding Patient Facing Action Plan Curly Nicolas, [facility] Note: The patient? s goal is to continue positive results of oral chemotherapy by maintaining improved labs PSA or stable scans in clinic for the upcoming year. documented as of this encounter Visit Diagnoses Not on filedocumented in this encounter Care Teams Proof Inspector Relationship Specialty Start Date End Date Kennedi Shaver MD [address] [place] [address] PCP - General Family Medicine 08/02/20 06/24/24 documented as of this encounter
--- OUTSIDE RECORDS SUMMARY | 2024-09-11 15:25 | XMS_ITS | Encounter Summary ---
Author Organization [facility] [place] [address] Care Team Providers Care Book Cutter Name Role Phone Kennedi Shaver MD Primary Care Provider [phone] Reason for Visit * Reason Comments Follow-up Encounter Details Date Type Department Care Team (Late st Contact Info) Description 10/04/2020 10:30 AM EST Office Visit Hematology [place] [address] Faith Caba MD [facility] [address] [place] [address] [address] HEMATOLOGY [place] [address] Prostate cancer metastatic to multiple sites; Hypertension, unspecified type Social History Tobacco Use Types Packs/Day Years Used Date Smoking Tobacco: Former Cigarettes Smokeless Tobacco: Never Alcohol Use Standard Drinks/Week Comments Yes 14 (1 standard drink = 0.6 oz pu re alcohol) Sex and Gender Information Value Date Recorded Sex Assigned at Not on file Gender Identity Not on file Sexual Orientation Not on file documented as of this encounter Last Filed Vital Signs Vital Sign Reading Time Taken Comments Blood Pressure 177/81 10/04/2020 10:19 AM EST Pulse 103 10/04/2020 10:19 AM EST Temperature 36.8 ??C (98.2 ??F) 10/04/2020 10:[address] Respiratory Rate 17 10/04/2020 10:19 AM EST Oxygen Saturation 98% 10/04/2020 10:19 AM EST Inhaled Oxygen Concentration - - Weight 87.1 kg (192 lb) 10/04/2020 10:19 AM EST Height 183.7 cm (6' 0.32) 10/04/2020 10:[address] Body Mass Index 25.81 10/04/2020 10:19 AM EST documented in this encounter Progress Notes * Deborah Hector, [place] - 10/04/2020 10:30 AM EST Images from the original note were not included. N [facility] HEM ONC [facility] [phone] ?? ONCOLOGY FOLLOW UP VISIT DIAGNOSIS: [...] 09/2018) HPI: Chidi Carbone presents today for f/u and scheduled Lupron injection. He continues taking abiraterone/prednisone as directed. Doing well. Occ hot flushes but not as intense. Manages with removing clothing, stepping outside. No new urinary symptoms. Continues with Flomax. Started recently on cpap for sleep apnea. Still adjusting. Continues with stimulant medication per PCP - this helps with fatigue. 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 Occ L low back pain which he associates with physical activity, takes ibuprofen with effect. A little surprised to see elevated BP today though thinks it's because he took stimulant medication, then drove, then just being in clinic. Monitored BP/kept track for PCP recently and BPs generally in 140s/150s. PCP did not feel anti-hypertensive med warranted. No other focal complaints. REVIEW OF SYSTEMS: As noted in HPI/Interval History; all other systems were reviewed and found to be negative. PAST MEDICAL HISTORY: 1. As above 2. GERD and Sol's esophagus S/p Alli Fundoplication 3. ELevated fasting glusoce 4. S/p distant appendectomy 5. S/p tonsilectomy MEDS: Medications 10/04/20 1059 Medication Sig Taking? Provigil 100 mg Tablet take 1 tablet by mouth once daily Yes Zytiga 500 mg Tablet TAKE 2 TABLETS BY MOUTH EVERY DAY Yes tamsulosin (FLOMAX) 0.4 mg Capsule Yes predniSONE (DELTASONE) 5 mg Tablet Take 1 tablet by mouth daily. Yes pantoprazole EC (Protonix) 40 mg Tablet, Delayed Release (E.C.) take 1 tablet by mouth twice a day zolpidem (AMBIEN) 10 mg Tablet take 1 tablet by mouth at bedtime leuprolide acetate (LUPRON DEPOT IM) Inject into the muscle. Once every 3 months, dosage unknown finasteride (PROSCAR) 5 mg Tablet ALLERGY: No Known Allergies FAMILY HX: Reviewed no change SOCIAL HX: Reviewed - no change PHYSICAL EXAM: BP 177/81 (Patient Position: Sitting) Pulse (!) 103 Temp 36.8 ??C (98.2 ??F) (Temporal) Resp 17 Ht 183.7 cm (6' 0.32) Wt 87.1 kg (192 lb) SpO2 98% BMI 25.81 kg/m?? PS=0 Constitutional: NAD, masked, appears well Eyes: Non-injected, anicteric. Resp: Normal respiratory effort, no distress. Skin: Warm and dry, no rash or lesions noted on limited exam. No pallor Musculoskeltal: Ambulatory with normal gait, no assistive device needed. LABS: CBC unremarkable (Hgb roughly stable at 12.9), CMP wnl, PSA remains undetectable IMAGING STUDIES: No new ASSESSMENT AND PLAN: 74 y.o. M has metastatic prostate cancer with extensive disease involving nodes and bones. He is oncombination lupron+zytiga as first line therapy and has maintained excellent clinical response. PSAremains undetectable. He is asymptomatic from his prostate cancer. Assuming he continues trend, we will continue with current regimen. Due for Lupron today. We'll plan to see him back in 3 months forlabs, visit and next injection. Hypertension: Pt reports regular monitoring per PCP, has not warranted medication. Is aware abiraterone can contribute to hypertension. Agrees to cont monitoring. Mr. Carbone asked appropriate questions and verbalized good understanding of and agreement with theplan. I encouraged him to call anytime with questions or concerns and he agreed. Deborah Hector APRN documented in this encounter Plan of Treatment Upcoming Encounters Date Type Department Care Team (Latest Contact Info) Description 09/29/2024 4:30 PM EST Hospital En[place] [phone] Lizet Wilkes MD [facility] [place] [address] 09/29/2024 4:30 PM EST - 09/29/2024 5:00 PM EST [place] [phone] Lizet Wilkes MD [facility] [place] [address] EGD, UPPER GI ENDOSCOPY (WRVU 2.09) 11/09/2024 10:00 AM EST Laboratory Appointment [place] [facility] [place] [address] [place] [phone] 11/09/2024 11:00 AM EST Office Visit [place] [phone] Faith Caba MD [facility] [address] [place] [address] 11/09/2024 12:00 PM EST Appointment Hematology and Oncology at [place] [phone] Scheduled Procedures Name Priority Associated Diagnoses Date/Ti me EGD, UPPER GI ENDOSCOPY (WRVU 2.09) Gastroesophageal reflux disease with esophagitis, unspecified whether hemorrhage 09/29/2024 4:30 PM EST documented as of this encounter Goals Goal Patient Goal Type Associated Problems Recent Progress Patient-Stated? Author [facility] Medication Compliance and Understanding Patient Facing Action Plan Curly Nicolas, [facility] Note: The patient? s goal is to continue positive results of oral chemotherapy by maintaining improved labs PSA or stable scans in clinic for the upcoming year. documented as of this encounter Results * PSA (Ultrasensitive) (01/10/2021 8:11 AM EDT) Prostate Specific Antigen (Ultrasensitive ) <0.01 0.00 - 4.00 ng/mL [facility] Comment: PLEASE NOTE: The above reference interval is intended for healthy males with an intact prostate. Values within this reference interval may indicate recurrence in men who have undergone radical prostatectomy. Blood specimen (specimen) 01/10/2021 8:11 AM EDT 01/10/2021 8:42 AM EDT Narrative Resulting Agency Comment Spec In Lab Deborah P Hector CONTACT ASSEMBLER CHEMISTRY ORDERABL ES [facility] [place] [address] * Comprehensive metabolic panel (non-fasting) (01/10/2021 8:11 AM EDT) Glucose 108 65 - 199 mg/dL [facility] Comment:Diabetes: >=200 mg/d L plus symptoms Blood Urea Nitrogen 19 10 - 20 mg/dL [facility] Creatinine 0.94 0.80 - 1.50 mg/dL [facility] Sodium 142 135 - 145 mmol/L [facility] Potassium 4.1 3.5 - 5.0 mmol/L [facility] Comment: Please note: ??Patients with WBC >100,000 may have falsely elevated Potassium levels. ??For accurate Potassium quantification in these patients send serum separator tube (gold top) for subsequent determinations. ??Contact the Clinical Chemistry Laboratory if there are any questions. Chloride 106 98 - 107 mmol/L [facility] Carbon Dioxide 26 22 - 31 mmol/L [facility] Anion Gap 10 5 - 15 mmol/L [facility] Calcium 9.1 8.5 - 10.5 mg/dL [facility] Protein, Total 6.8 6.1 - 8.0 gm/dL [facility] Albumin 4.5 3.2 - 5.2 gm/dL [facility] Aspartate Aminotransferase 15 0 - 39 unit/L [facility] Alanine Aminotransferase 10 0 - 55 unit/L [facility] Alkaline Phosphatase 106 40 - 130 unit/L [facility] Bilirubin, Total 0.9 0.2 - 1.3 mg/dL [facility] Est Glomerular Filtration Rate 78 >=60 mL/min/1. 73 m?? [facility] Comment: This patient? s estimated [...] and symptoms in addition to eGFR. Blood specimen (specimen) 01/10/2021 8:11 AM EDT 01/10/2021 8:42 AM EDT Narrative Resulting Agency Comment Spec In Lab Deborah Hector APRN CHEMISTRY ORDERABL ES [facility] [place] [address] documented in this encounter Visit Diagnoses Diagnosis Prostate cancer metastatic to multiple sites Malignant neoplasm of prostate Hypertension, unspecified type Gastroesophageal reflux disease with esophagitis, unspecified whether hemorrhage documented in this encounter Care Teams Book Cutter Relationship Specialty Start Date End Date Kennedi Shaver MD [address] [place], [place] [address] [place] [address] PCP - General Family Medicine 08/02/20 06/24/24 documented as of this encounter
--- OUTSIDE RECORDS SUMMARY | 2024-09-11 15:25 | XMS_ITS | Encounter Summary ---
Author Organization [facility] [place] [address] Care Team Providers Care Senior Private Client Advisor Name Role Phone Kennedi Shaver MD Primary Care Provider [phone] Reason for Visit * Reason Onset Date Comments Reminder Appointment 12/14/2020 Encounter Details Date Type Department Care Team (Late st Contact Info) Description 12/14/2020 Telephone [place] [address] Ann Marie Ruiz CMA GASTROENTEROLOGY DEPT Reminder Appointment Social History Tobacco Use Types Packs/Day [...] encounter Miscellaneous Notes * Telephone Encounter - Ann Marie Ruiz CMA - 12/14/2020 9:38 AM EDT Called patient to review medications and allergies for their upcoming gastroenterology Type of Appointment: Telehealth appointment. Reach Patient during MA Check: No, Did not leave a message Notes for the provider: Notes for the nurse: Mail box was full documented in this encounter Plan of Treatment Upcoming Encounters Date Type Department Care Team (Latest Contact Info) Description 09/29/2024 4:30 PM EST Hospital Encounter [place] [address] Lizet Wilkes MD [facility] [place] [address] 09/29/2024 4:30 PM EST - 09/29/2024 5:00 PM EST [place] [phone] Lizet Wilkes MD [facility] [place] [address] EGD, UPPER GI ENDOSCOPY (WRVU 2.09) 11/09/2024 10:00 AM EST Laboratory Appointment Lab at [facility] Hematology Oncology [address] [place] [phone] 11/09/2024 11:00 AM EST Office Visit Hematology [place] [phone] Faith Caba MD [facility] [place] [address] 11/09/2024 12:00 PM EST Appointment Hematology [place] [phone] Scheduled Procedures Name Priority Associated Diagnoses Date/Ti [...] filedocumented in this encounter Care Teams Senior Private Client Advisor Relationship Specialty Start Date End Date Kennedi Shaver MD [address] [place] [address] PCP - General Family Medicine 08/02/20 06/24/24 documented as of this encounter
--- OUTSIDE RECORDS SUMMARY | 2024-09-11 15:25 | XMS_ITS | Encounter Summary ---
Author Organization [facility] Address One [facility] [place] [address] Care Team Providers Care Tooling Specialist Name Role Phone Kennedi Shaver MD Primary Care Provider [phone] Reason for Referral * Diagnostic Test (Routine) - Closed Specialty Diagnoses / Procedures Referred By Blaine t Referred To Contact Radiology Diagnoses Neoplasm of prostate, 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 Androgen deprivation therapy Asymptomatic menopausal state At risk for osteopenia Procedures DXA Central Spine, Hip, and/or Whole Body (Generic) Deborah Hector APRN [address] [place] [address] DR HEM[place]Y [place] [address] [facility] Rad Xray [address] [place] [address] [place] [address] Referral ID Status Reason Start Date Expiration Date V isits Requested Visits Authorized [id number] Closed Specialty Service Requested 07/11/2021 01/09/2023 1 1 Reason for Visit * Diagnostic Test (Routine) - Closed Specialty Diagnoses / Procedures Referred By Contalice t Referred To Contact Radiology Diagnoses Neoplasm of prostate, 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 Androgen deprivation therapy Asymptomatic menopausal state At risk for osteopenia Procedures DXA Central Spine, Hip, and/or Whole Body (Generic) Deborah Hector [address] [place] [address] [facility] Rad Xray [address] [place] [address] [place] [phone] Referral ID Status Reason Start Date Expiration Date V isits Requested Visits Authorized [id number] Closed Specialty Service Requested 07/11/2021 01/09/2023 1 1 Encounter Details Date Type Department Care Team (Latest Contact Info) Description 10/10/2021 8:37 AM EST - 10/10/2021 11:59 PM [facility] Hospital Encounter XRay at [address] [place] [phone] HEMATOLOGY AND ONCOLOGY [place], [place] [id number] Neoplasm of prostate, 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; Androgen deprivation therapy; Asymptomatic menopausal state; At risk for osteopenia Discharge Disposition: Home Social History Tobacco Use [...] 4:30 PM EST Hospital Encounter [place] [address] Lizet Wilkes MD [facility] [place] [address] 09/29/2024 4:30 PM EST - 09/29/2024 5:00 PM EST Surgery [place] [address] Lizet Wilkes MD [facility] [place] [address] EGD, UPPER GI ENDOSCOPY (WRVU 2.09) 11/09/2024 10:00 AM EST Laboratory Appointment [place] [facility] [place] [address] [place] [phone] 11/09/2024 11:00 AM EST Office Visit Hematology [place] [phone] Faith Caba MD [facility] DR [place] [address] 11/09/2024 12:00 PM EST Appointment Hematology [place] [phone] Scheduled Procedures Name Priority Associated Diagnoses Date/Ti me EGD, UPPER GI ENDOSCOPY (WRVU 2.09) Gastroesophageal reflux disease with esophagitis, unspecified whether hemorrhage 09/29/2024 4:30 PM EST documented as of this encounter Goals Goal Patient Goal Type Associated Problems Recent Progress Patient-Stated? Author [facility] Medication Compliance and Understanding Patient Facing Action Plan Curly Nicolas, [facility] Note: The patient? s goal is to continue positive results of oral chemotherapy by maintaining improved labs PSA or stable scans in clinic for the upcoming year. documented as of this encounter Procedures Procedure Name Priority Date/Time Associated Diagnosis Comments DXA CENTRAL SPINE, HIP, AND/OR WHOLE BODY (GENERIC) Routine 10/10/2021 9:00 AM EST Neoplasm of prostate, 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 Androgen deprivation therapy Asymptomatic menopausal state At risk for osteopenia documented in this encounter Results * DXA Central Spine, Hip, and/or Whole Body (Generic) (10/10/2021 9:00 AM EST) Anatomical Region Laterality Modality C-spine, Hip N/A Other Impressions 10/10/2021 9:27 AM EST Measurements meet WHO criteria for osteopenia. Estimating Fracture Risk: ? The relationship between bone mineral density (BMD) and risk of fracture is well established. As BMD decreases, risk increases. Quantifying risk is difficult and is usually limited to estimation of the relative risk - a term which may have limited value when trying to discuss an individual's risk. Estimating the absolute risk for a patient requires an understanding of the incidence rate in a given population and consideration of multiple, partially independent, risk factors in addition to BMD. ? The World Health Organization (WHO) has developed a fracture risk prediction tool that calculates a ten-year risk of major osteoporotic fracture based on femoral neck bone density measurements and nine clinical risk factors for individuals who have not been treated for osteoporosis. This is available through an interactive web-based interface (http://www.shef.ac.uk/FRAX/) and can be used to estimate a given patient's absolute risk of major osteoporotic fracture or hip fracture over the next 10 years. These estimates may prove useful when discussing risk with a patient. It is important, however, to understand the tool's limitations and how a given individual's risk might differ from the tool's estimate. The tool does not take into account the dose-response associated with most risk factors. For example, the significant increase in risk associated with multiple prior fractures compared to a single prior fracture is not taken into account. Similarly, the location of a previous fracture, the amount of glucocorticoids and number of cigarettes smoked are not considered. These limitations are discussed in a Frequently Asked Questions section of the FRAX website which you are encouraged to review. ? DEXA data sheets with BMD measurements and plots are available in [employer] under the imaging tab. Paper copies will be sent to providers without [employer] access. If you have received this report without the data sheet and do not have access to [employer], please contact Radiology Strategic Buyer at [phone] Saturday thru Saturday 8am-4pm. Thank you for letting us participate in the care of this patient. ??If you are a health care provider and have any questions regarding this report, please contact the number below. ??For patients who have questions please contact the health special needs child caregiver that requested your imaging first. ? Narrative 10/10/2021 9:27 AM EST EXAMINATION: DXA SPINE HIP AND OR WHOLE BODY CLINICAL HISTORY: 75 years Male (as entered by ordering provider) TECHNIQUE: Scans were acquired at the lumbar spine and left hip and left forearm using the [employer] Horizon A system. COMPARISON: None FINDINGS: Femoral neck BMD: 0.592 g/cm2 Lowest T-score at a diagnostic region of interest: T-score: -2.3, VIRGIE: Left femoral neck, WHO diagnosis: ??osteopenia. Procedure Note James Romo MD - 10/13/2021 EXAMINATION: DXA SPINE HIP AND OR WHOLE BODY CLINICAL HISTORY: 75 years Male (as entered by ordering provider) TECHNIQUE: Scans were acquired at the lumbar spine and left hip and leftforearm using the [employer] Horizon A system. COMPARISON: None FINDINGS: Femoral neck BMD: 0.592 g/cm2 Lowest T-score at a diagnostic region of interest: T-score: -2.3, VIRGIE: Left femoral neck, WHO diagnosis: osteopenia. IMPRESSION Measurements meet WHO criteria for osteopenia. Estimating Fracture Risk: ? The relationship between bone mineral density (BMD) and risk of fractureis well established. As BMD decreases, risk increases. Quantifying risk isdifficult and is usually limited to estimation of the relative risk - a term which mayhave limited value when trying to discuss an individual's risk. Estimatingthe absolute risk for a patient requires an understanding of the incidencerate in a given population and consideration of multiple, partially independent,risk factors in addition to BMD. ? The World Health Organization (WHO) has developed a fracture riskprediction tool that calculates a ten-year risk of major osteoporotic fracture basedon femoral neck bone density measurements and nine clinical risk factorsfor individuals who have not been treated for osteoporosis. This isavailable through an interactive web-based interface (http://www.shef.ac.uk/FRAX/)and can be used to estimate a given patient's absolute risk of majorosteoporotic fracture or hip fracture over the next 10 years. These estimates mayprove useful when discussing risk with a patient. It is important, however, to understand the tool's limitations and how a given individual's risk mightdiffer from the tool's estimate. The tool does not take into account thedose-response associated with most risk factors. For example, the significant increasein risk associated with multiple prior fractures compared to a single priorfracture is not taken into account. Similarly, the location of a previous fracture,the amount of glucocorticoids and number of cigarettes smoked are notconsidered. These limitations are discussed in a Frequently Asked Questions sectionof the FRAX website which you are encouraged to review. ? DEXA data sheets with BMD measurements and plots are available in [employer]under the imaging tab. Paper copies will be sent to providers without [employer] access.If you have received this report without the data sheet and do not haveaccess to [employer], please contact Radiology Strategic Buyer at [phone] Saturday thruFriday 8am-4pm. Thank you for letting us participate in the care of this patient. If youare a health care provider and have any questions regarding this report,please contact the number below. For patients who have questions please contactthe health special needs child caregiver that requested your imaging first. Deborah P Hector YOGA INSTRUCTOR IMG DEXA ORDERABLE S documented in this encounter Visit Diagnoses Diagnosis Neoplasm of prostate, 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 Androgen deprivation therapy Encounter for therapeutic drug monitoring Asymptomatic menopausal state Asymptomatic postmenopausal status (age-related) (natural) At risk for osteopenia Other specified conditions influencing health status Gastroesophageal reflux disease with esophagitis, unspecified whether hemorrhage documented in this encounter Care Teams Tooling Specialist Relationship Specialty Start Date End Date Kennedi Shaver MD [facility] [address] [facility] [address] [place] [address] PCP - General Family Medicine 08/02/20 06/24/24 documented as of this encounter
--- OUTSIDE RECORDS SUMMARY | 2024-09-11 15:25 | XMS_ITS | Encounter Summary ---
Author Organization [facility] [place] [address] Care Team Providers Care Crown Ceramist Name Role Phone Kennedi Shaver MD Primary Care Provider [phone] Encounter Details Date Type Department Care Team (Late st Contact Info) Description 10/19/2020 Notes Only Sleep Center at [address] [phone] E[facility] Social History Tobacco Use Types Packs/Day [...] as of this encounter Progress Notes * Erika Jacobson [facility] - 10/19/2020 2:50 PM EST Patient called his DME is sending him a new modem to install He will call me once it's connected. documented in this encounter Plan of Treatment Upcoming Encounters Date Type Department Care Team (Latest Contact Info) Description 09/29/2024 4:30 PM EST Hospital Encounter Gastroenterology at [place] [phone] Lizet Wilkes MD [facility] [place] [address] 09/29/2024 4:30 PM EST - 09/29/2024 5:00 PM EST Surgery [place] [phone] Lizet Wilkes MD [facility] [place] [address] EGD, UPPER GI ENDOSCOPY (WRVU 2.09) 11/09/2024 10:00 AM EST Laboratory Appointment [facility] [place] [facility] [place] [address] [place] [phone] 11/09/2024 11:00 AM EST Office Visit Hematology [place] [phone] Faith Caba MD [facility] DR [place] [address] 11/09/2024 12:00 PM EST Appointment Hematology [place] [phone] Scheduled Procedures Name Priority Associated Diagnoses Date/Ti me EGD, UPPER GI ENDOSCOPY (WRVU 2.09) Gastroesophageal reflux disease with esophagitis, unspecified whether hemorrhage 09/29/2024 4:30 PM EST documented as of this encounter Goals Goal Patient Goal Type Associated Problems Recent Progress Patient-Stated? Author [facility] Medication Compliance and Understanding Patient Facing Action Plan Curly Nicolas, [facility] Note: The patient? s goal is to continue positive results of oral chemotherapy by maintaining improved labs PSA or stable scans in clinic for the upcoming year. documented as of this encounter Visit Diagnoses Not on filedocumented in this encounter Care Teams Crown Ceramist Relationship Specialty Start Date End Date Kennedi Shaver MD [facility] [address] [facility] [address] [place] [address] PCP - General Family Medicine 08/02/20 06/24/24 documented as of this encounter
--- OUTSIDE RECORDS SUMMARY | 2024-09-11 15:25 | XMS_ITS | Encounter Summary ---
[place] [address] Care Team Providers Care Electric Vehicle Electrician Name Role Phone Kennedi Shaver MD Primary Care Provider [phone] Encounter Details Date Type Department Care Team (Late st Contact Info) Description 09/12/2021 Orders Only [place]ematology [place] [address] HEMATOLOGY AND ONCOLOGY [place], [place] [address] Neoplasm of prostate, distant metastasis staging category [...] (Latest Contact Info) Description 09/29/2024 4:30 PM [facility] Hospital En[place] [address] Lizet Wilkes MD [facility] [place] [address] 09/29/2024 4:30 PM EST - 09/29/2024 5:00 PM EST Surgery Gastroenterology at [place] [phone] Lizet Wilkes MD [facility] [place] [address] EGD, UPPER GI ENDOSCOPY (WRVU 2.09) 11/09/2024 10:00 AM EST Laboratory Appointment [place] [facility] [place] [address] [place], [place] [phone] 11/09/2024 11:00 AM EST Office Visit Hematology and Oncology at [place] [phone] Faith Caba MD [facility] DR [place] [address] 11/09/2024 12:00 PM EST Appointment Hematology and Oncology at [place] [phone] Scheduled Procedures Name Priority Associated Diagnoses Date/Ti [...] hemorrhage documented in this encounter Care Teams Electric Vehicle Electrician Relationship Specialty Start Date End Date Kennedi Shaver MD [address] [facility] 1 [place] [address] PCP - General Family Medicine 08/02/20 06/24/24 documented as of this encounter
--- OUTSIDE RECORDS SUMMARY | 2024-09-11 15:25 | XMS_ITS | Encounter Summary ---
Author Organization [facility] [place] [address] Care Team Providers Care Sap Director Name Role Phone Kennedi Shaver MD Primary Care Provider [phone] Reason for Visit * Reason Onset Date Comments Nevus 10/11/2020 Encounter Details Date Type Department Care Team (Late st Contact Info) Description 10/11/2020 Telephone Hematology [place] [phone] Patricia James RN INFUSION ROOM Nevus Social History Tobacco Use Types Packs/Day Years [...] Telephone Encounter - Patricia James RN - 10/11/2020 11:12 AM EST Message received from bilingual secretary: Chidi is calling with a concerning mole that has changed in last than a week. ??It turned red and has now spread out He would like this run by Sarah Hector on what to do about it. ?? [phone] ??- He is having trouble with his phone, but wants you to keep trying him. Spoke w/ pt who stated that a few days after his last appt a mole on his arm got red and turned into a bump and today it has flattened out and disappeared into a purplish lesion. Denies any other complaints or concerns, feeling well otherwise. Plan: encouraged pt to see PCP or derm for eval and potential biopsy Pt verbalized agreement with plan and knows to call clinic with any concerns and/or questions. Pt stated that he would contact his PCP to be seen. documented in this encounter Plan of Treatment Upcoming Encounters Date Type Department Care Team (Latest Contact Info) Description 09/29/2024 4:30 PM EST Hospital Encounter [place] [phone] Lizet Wilkes MD [facility] [place] [address] 09/29/2024 4:30 PM EST - 09/29/2024 5:00 PM EST Surgery [place] [phone] Lizet Wilkes MD [facility] [place] [address] EGD, UPPER GI ENDOSCOPY (WRVU 2.09) 11/09/2024 10:00 AM EST Laboratory Appointment Lab at [facility] Hematology Oncology [address] [place] [phone] 11/09/2024 11:00 AM EST Office Visit Hematology [place] [phone] Faith Caba MD [facility] DR HEMATOLOGY [place] [address] 11/09/2024 12:00 PM EST Appointment Hematology [place] [phone] Scheduled Procedures Name Priority Associated [...] on filedocumented in this encounter Care Teams Sap Director Relationship Specialty Start Date End Date Kennedi Shaver MD [address] [place] [address] PCP - General Family Medicine 08/02/20 06/24/24 documented as of this encounter
--- OUTSIDE RECORDS SUMMARY | 2024-09-11 15:25 | XMS_ITS | Encounter Summary ---
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 Androgen deprivation therapy Asymptomatic menopausal state At risk for osteopenia Procedures DXA Central Spine, Hip, and/or Whole Body (Generic) Deborah Hector APRN [address] [place] [address] DR [place] [address] [facility] Rad Xray [address] [place] [address] [place] [address] Referral ID Status Reason Start Date Expiration Date V isits Requested Visits Authorized [id number] Closed Specialty Service Requested 07/11/2021 01/09/2023 1 1 Reason for Visit * Reason Comments Follow-up Encounter Details Date Type Department Care Team ([facility] Contact Info) Description 07/11/2021 9:00 AM EDT Office Visit Hematology [place] [address] Deborah Hector APRN [address] [place] [address] DR HEMATOLOGY [place] [address] Neoplasm of prostate, 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; Hypertension, unspecified type; Androgen deprivation therapy; Encounter for monitoring androgen deprivation therapy; Asymptomatic menopausal state; At risk for osteopenia Social History Tobacco Use Types Packs/Day Years [...] Sign Reading Time Taken Comments Blood Pressure 155/73 07/11/2021 8:22 AM EDT Pulse 80 07/11/2021 8:22 AM EDT Temperature 36.4 ??C (97.6 ??F) 07/11/2021 8:22 AM ED T Respiratory Rate 18 07/11/2021 8:22 AM EDT Oxygen Saturation 98% 07/11/2021 8:22 AM EDT Inhaled Oxygen Concentration - - Weight 85.2 kg (187 lb 12.8 oz) 07/11/2021 8:22 AM EDT Height 179 cm (5' 10.47) 07/11/2021 8:22 AM EDT Body Mass Index 26.59 07/11/2021 8:22 AM EDT documented in this encounter Progress Notes * Deborah Hector APRN - 07/11/2021 9:00 AM EDT Images from the original note were not included. [facility] HEM ONC [facility] [address] ?? ONCOLOGY FOLLOW UP VISIT DIAGNOSIS: [...] for follow up and consideration of Lupron. No interval health issues. Takes edmar/pred as directed. Chronic bilateral knee pain, takes Advil once/day with effect. No pain otherwise. No new urinary symptoms - good flow with tamsulosin, no dysuria or hematuria. Bowels regular. Monitors BP at home - generally in 130s systolic, always a bit higher when he comes to clinic(150s). Takes lisinopril per PCP. Energy is good. Stays active with golf, dog walking, chores around the house. 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 continues w/med adjustment for depression. REVIEW OF SYSTEMS: As noted in HPI; all other systems were reviewed and found to be negative. PAST MEDICAL HISTORY: 1. As above 2. GERD and Sol's esophagus S/p Alli Fundoplication 3. ELevated fasting glusoce 4. S/p distant appendectomy 5. S/p tonsilectomy 6. Hypertension MEDS: Medications 07/11/21 0822 Medication Sig Taking? abiraterone (Zytiga) 500 mg [...] needed. Patient not taking: Reported on 04/11/2021 ALLERGY: No Known Allergies FAMILY HX: Reviewed no change SOCIAL HX: Reviewed - no change PHYSICAL EXAM: BP 155/73 (Patient Position: Sitting) Pulse 80 Temp 36.4 ??C (97.6 ??F) (Temporal) Resp 18 Ht 179 cm (5' 10.47) Wt 85.2 kg (187 lb 12.8 oz) SpO2 98% BMI 26.59 kg/m?? ECOG PS: 0 General: NAD, pleasant, well-appearing Head: NCAT Neck: Normal ROM, supple. Cardiovascular: RRR, no murmur. Resp: Effort normal. No respiratory distress. CTAB. Skin: Skin is warm and dry. No [...] (non-fasting) Result Value Ref Range Glucose Lvl 106 65 - 199 mg/dL BUN 17 10 - 20 mg/dL Creatinine 0.84 0.80 - 1.50 mg/dL Sodium 142 135 - 145 mmol/L Potassium 3.9 3.5 - 5.0 mmol/L Chloride 106 98 - 107 mmol/L CO2 27 22 - 31 mmol/L Anion Gap 9 5 - 15 mmol/L Calcium 9.0 8.5 - 10.5 mg/dL Total Protein 6.4 6.1 - 8.0 g/dL Albumin 4.2 3.2 - 5.2 g/dL AST 14 0 - 39 unit/L ALT 12 0 - 55 unit/L Alk Phos 98 40 - 130 unit/L Total Bilirubin 0.8 0.2 - 1.3 mg/dL Estimated GFR 85 >=60 mL/min/1.73 m?? Hemogram Result Value Ref Range WBC 6.5 4.0 - 9.5 x10(3)/mcL RBC 4.27 (L) 4.58 - 5.54 x10(6)/mcL Hemoglobin 13.0 (L) 13.7 - 16.5 g/dL Hematocrit 39.1 (L) 40.5 - 48.5 % MCV 91.6 82.9 - 93.1 fL MCH 30.4 27.5 - 32.1 pg MCHC 33.2 32.0 - 35.7 g/dL Platelets 237 145 - 357 x10(3)/mcL RDWSD 43.4 36.0 - 45.0 fL RDWCV 13.0 11.4 - 13.8 % MPV 9.6 7.6 - 12.9 fL nRBC % Auto 0.0 % nRBC Abs Auto 0.000 0.000 - 0.000 x10(3)/mcL Differential, Automated Result Value Ref Range Neutrophils % 59.6 % Neutr Abs (ANC) 3.88 1.70 - 6.10 x10(3)/mcL Lymphocytes % 24.6 % Lymphocytes Abs 1.6 0.9 - 3.2 x10(3)/mcL Monocytes % 10.9 % Monocyte Abs 0.7 0.3 - 0.9 x10(3)/mcL Eosinophils % 3.7 % Eosinophils Abs 0.2 0.0 - 0.4 x10(3)/mcL Basophils % 0.6 % Basophils Abs 0.0 0.0 - 0.1 x10(3)/mcL Immature Gran % 0.60 % Julisa Gran Abs 0.04 0.00 - 0.04 x10(3)/mcL IMAGING STUDIES: No [...] current therapy. Hypertension: well controlled on lisinopril Risk for osteopenia/osteoporosis and risk of bone fractures with ADT: ADT increases bone turnover and decreases bone mineral density, thereby increasing the risk of clinical bone fractures. For all men on long-term ADT, we recommend a) obtaining a DXA scan; b) dietary calcium intake (food and supplements) of 1000 to 1200 mg daily; and c) supplemental vitamin D 800 to 1000 international units daily, as well as weight bearing exercise, decreased alcohol consumption, and smoking cessation. He agrees to undergo DXA scan in conjunction with next visit. He is not taking Ca and D at this time. I reviewed recommendations and provided written handouts. He does not smoke. Drinks ~3 units of ETOH daily. Reviewed guidelines for ETOH per USPTF - no more than 2 drinks/day, no more than 14/week for men. Plan: -continue edmar/pred -continue ADT, due for Lupron today -start Ca and D supplements -RTC in 3 months for labs, DXA, visit and Lupron Mr. Carbone asked appropriate questions and verbalized good understanding of and agreement with theplan. I encouraged him to call anytime with questions or concerns and he agreed. Deborah Hector APRN Oncology documented in this encounter Plan of Treatment Upcoming Encounters Date Type Department Care Team (Latest Contact Info) Description 09/29/2024 4:30 PM EST Hospital En[place] [address] Lizet Wilkes MD [facility] [place] [address] 09/29/2024 4:30 PM EST - 09/29/2024 5:00 PM EST Surgery Gastroenterology at [place] [phone] Lizet Wilkes MD [facility] [place] [address] EGD, UPPER GI ENDOSCOPY (WRVU 2.09) 11/09/2024 10:00 AM EST Laboratory Appointment [place] [facility] [place] [address] [place], [place] [phone] 11/09/2024 11:00 AM EST Office Visit Hematology and Oncology at [place] [phone] Faith Cbaa MD [facility] DR [place] [address] 11/09/2024 12:00 PM EST Appointment Hematology [place] [address] Scheduled Procedures Name Priority Associated [...] BMD measurements and plots are available in [facility] under the imaging tab. Paper copies will be sent to providers without E- access. If you have received this report without the data sheet and do not have access to [facility], please contact Radiology Saw Repairer at [phone] Saturday thru Saturday 8am-4pm. Thank you for letting us participate in the care of this patient. ??If you are a health care provider and have any questions regarding this report, please contact the number below. ??For patients who have questions please contact the health primary care md that requested your imaging first. ? Narrative 10/10/2021 9:27 AM EST EXAMINATION: DXA SPINE HIP AND OR WHOLE BODY CLINICAL HISTORY: 75 years Male (as entered by ordering provider) TECHNIQUE: Scans were acquired at the lumbar spine and left hip and left forearm using the [employer]PATH A system. COMPARISON: None FINDINGS: Femoral neck [...] and left hip and leftforearm using the [employer] Horizon A system. COMPARISON: None FINDINGS: Femoral [...] BMD measurements and plots are available in EV[facility] Burtonunder the imaging tab. Paper copies will be sent to providers without MOGL access.If you have received this report without the data sheet and do not haveaccess to [facility], please contact Radiology Saw Repairer at [phone] Saturday thruFriday 8am-4pm. Thank you for letting us participate in the care of this patient. If youare a health care provider and have any questions regarding this report,please contact the number below. For patients who have questions please contactthe health primary care md that requested your imaging first. Deborah Hector APRN IMG DEXA ORDERABLE S * PSA (Ultrasensitive) (10/10/2021 8:05 AM EST) Prostate Specific Antigen (Ultrasensitive ) <0.01 0.00 - 4.00 ng/mL [facility] Comment: PLEASE NOTE: The above reference interval is intended for healthy males with an intact prostate. Values within this reference interval may indicate recurrence in men who have undergone radical prostatectomy. Blood 10/10/2021 8:05 AM EST 10/10/2021 8:16 AM EST Narrative Resulting Agency Comment Spec In Lab Deborah Hector APRN CHEMISTRY ORDERABL ES [facility] [place] [phone] * Comprehensive metabolic panel (non-fasting) (10/10/2021 8:05 AM EST) Glucose 109 65 - 199 mg/dL [facility] Comment:Diabetes: >=200 mg/d L plus symptoms Blood Urea Nitrogen 17 10 - 20 mg/dL [facility] Creatinine 0.94 0.80 - 1.50 mg/dL [facility] Sodium 141 135 - 145 mmol/L [facility] Potassium 4.0 3.5 - 5.0 mmol/L [facility] Comment: Please note: ??Patients with WBC >100,000 may have falsely elevated Potassium levels. ??For accurate Potassium quantification in these patients send serum separator tube (gold top) for subsequent determinations. ??Contact the Clinical Chemistry Laboratory if there are any questions. Chloride 105 98 - 107 mmol/L [facility] Carbon Dioxide 24 22 - 31 mmol/L [facility] Anion Gap 12 5 - 15 mmol/L [facility] Calcium 9.1 8.5 - 10.5 mg/dL [facility] Protein, Total 6.5 6.1 - 8.0 g/dL [facility] Albumin 4.3 3.2 - 5.2 g/dL [facility] Aspartate Aminotransferase 16 0 - 39 unit/L [facility] Alanine Aminotransferase 11 0 - 55 unit/L [facility] Alkaline Phosphatase 111 40 - 130 unit/L [facility] Bilirubin, Total 0.9 0.2 - 1.3 mg/dL [facility] Est Glomerular Filtration Rate 78 >=60 mL/min/1. 73 m?? [facility] Comment: This patient? s estimated [...] Lab Deborah Hector APRN CHEMISTRY ORDERABL ES [facility] [place] [address] documented in this encounter Visit Diagnoses Diagnosis Neoplasm of prostate, 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 Hypertension, unspecified type Androgen deprivation therapy Encounter for therapeutic drug monitoring Encounter for monitoring androgen deprivation therapy Encounter for therapeutic drug monitoring Asymptomatic menopausal state Asymptomatic postmenopausal status (age-related) (natural) At risk for osteopenia Other specified conditions influencing health status Neoplasm of prostate, 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
--- OUTSIDE RECORDS SUMMARY | 2024-09-11 15:25 | XMS_ITS | Encounter Summary ---
Author Organization [facility] [place] [address] Care Team Providers Care Tanning Wheel Operator Name Role Phone Kennedi Shaver MD Primary Care Provider [phone] Encounter Details Date Type Department Care Team (Latest Contact Info) Description 01/10/2021 8:00 AM EDT - 01/10/2021 8:01 AM EDT Hospital Encounter [place]ology [place] [address] Prostate cancer metastatic to multiple sites Discharge Disposition: Home Social History Tobacco Use [...] muscle. Once every 3 months, dosage unknown lisinopriL (Prinivil;Zestril) 5 mg Tablet Take 10 mg by mouth daily. 11/14/2020 07/19/2022 augmented betamethasone dipropionate (DIPROLENE-AF) 0.05 % OintmentIndications:Numm ular eczema Apply topically to affected areas on the right leg and foot twice daily for up to 2 weeks, then take 1 week off. Repeat cycle as needed. 50 g 1 12/08/2020 01/09/2022 abiraterone (Zytiga) 500 mg TabletIndications:Neopla sm of prostate, 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 Take 1,000 mg by mouth daily. 60 tablet 11 2020 03/30/2021 tamsulosin (FLOMAX) 0.4 mg Capsule Take 0.4 [...] 4:30 PM EST Hospital [place] [address] Lizet Wilkes MD [facility] [place] [address] 09/29/2024 4:30 PM EST - 09/29/2024 5:00 PM EST [place] [address] Lizet Wilkes MD [facility] [place] [address] EGD, UPPER GI ENDOSCOPY (WRVU 2.09) 11/09/2024 10:00 AM EST Laboratory Appointment [place] [facility] [place] [address] [place] [phone] 11/09/2024 11:00 AM EST Office Visit [place]ology [place] [address] Faith Caba MD [facility] DR HEMATOLOGY [place] [address] 11/09/2024 12:00 PM EST Appointment [place]ematology [place] [phone] Scheduled Procedures Name Priority Associated Diagnoses Date/Ti me EGD, UPPER GI ENDOSCOPY (WRVU 2.09) Gastroesophageal reflux disease with esophagitis, unspecified whether hemorrhage 09/29/2024 4:30 PM EST documented as of this encounter Goals Goal Patient Goal Type Associated Problems Recent Progress Patient-Stated? Author [facility] Medication Compliance and Understanding Patient Facing Action Plan Curly Nicolas, [facility] Note: The patient? s goal is to continue positive results of oral chemotherapy by maintaining improved labs PSA or stable scans in clinic for the upcoming year. documented as of this encounter Procedures Procedure Name Priority Date/Time Associated Diagnosis Comments HEMOGRAM Routine 01/10/2021 8:11 AM EDT Prostate cancer metastatic to multiple sites DIFFERENTIAL, AUTOMATED Routine 01/10/2021 8:11 AM EDT Prostate cancer metastatic to multiple sites HC CBC,PLT & AUTO DIFF Routine 8:11 AM EDT Prostate cancer metastatic to multiple sites HC VENIPUNCTURE Routine 01/10/2021 8:11 AM EDT Prostate cancer metastatic to multiple sites COMPREHENSIVE METABOLIC PANEL Routine 01/10/2021 8:11 AM EDT Prostate cancer metastatic to multiple sites documented in this encounter Results * Differential, Automated (01/10/2021 8:11 AM EDT) Pathologist [facility] Neutrophil % 64.3 % [facility] Neutrophil Absolute 4.14 1.70 - 6.10 x10(3)/[facility] Lymph % 19.9 % [facility] Lymphocytes Abs 1.3 0.9 - 3.2 x10(3)/[facility] Monocyte % 11.0 % [facility] Monocyte Abs 0.7 0.3 - 0.9 x10(3)/[facility] Eos % 3.9 % [facility] Eosinophils Abs 0.2 0.0 - 0.4 x10(3)/[facility] Basophil % 0.6 % [facility] Baso Absolute 0.0 0.0 - 0.1 x10(3)/[facility] Immature Gran % 0.30 % [facility] Comment: Immature granulocytes(IG's)percentage and absolute count will include metamyelocytes, myelocytes, and promyelocytes. Blood smears from CBCs yielding IG's will be scanned manually for concordance. If this scan disagrees with the automated IG or if promyelocytes are noted, a manual differential will be performed. Immature Gran Absolute 0.02 0.00 - 0.04 x10(3)/[facility] Blood specimen (specimen) 01/10/2021 8:11 AM EDT 01/10/2021 8:42 AM EDT Narrative Resulting Agency Comment Spec In Lab Deborah Hector FREIGHT HANDLER HEMATOLOGY ORDERAB LES [facility] [place] [address] * (ABNORMAL) Hemogram (01/10/2021 8:11 AM EDT) [facility] White Blood Cell 6.4 4.0 - 9.5 x10(3)/mc L [facility] Red Blood Cell 4.30(L) 4.58 - 5.54 x10(6)/ L [facility] Hemoglobin 12.8(L) 13.7 - 16.5 gm/dL [facility] Hematocrit 39.6(L) 40.5 - 48.5 % [facility] Mean Cell Volume 92.1 82.9 - 93.1 fL [facility] Mean Cell Hemoglobin 29.8 27.5 - 32.1 pg [facility] Mean Cell Hemoglobin Concentration 32.3 32.0 - 35.7 gm/dL [facility] Platelet 250 145 - 357 x10(3)/[facility] LABORATORY RDW Standard Deviation 43.3 36.0 - 45.0 [facility] RDW coefficient of variation 12.7 11.4 - 13.8 % [facility] Mean Platelet Volume 10.0 7.6 - 12.9 [facility] LABORATORY NRBC% auto 0.0 % [facility] NRBC Absolute 0.000 0.000 - 0.000 x10(3)/[facility]AT[facility] Blood specimen (specimen) 01/10/2021 8:11 AM EDT 01/10/2021 8:42 AM EDT Narrative Resulting Agency Comment Spec In Lab Deborah Hectro APRN HEMATOLOGY ORDERAB LES [facility] [place] [address] * Comprehensive metabolic panel (non-fasting) (01/10/2021 8:11 AM EDT) Glucose 108 65 - 199 mg/dL [facility] Comment:Diabetes: >=200 mg/d L plus symptoms Blood Urea Nitrogen 19 10 - 20 mg/dL [facility] Creatinine 0.94 0.80 - 1.50 mg/dL [facility] Sodium 142 135 - 145 mmol/L [facility] Potassium 4.1 3.5 - 5.0 mmol/L [facility] Comment: Please note: ??Patients with WBC >100,000 may have falsely elevated Potassium levels. ??For accurate Potassium quantification in these patients send serum separator tube (gold top) for subsequent determinations. ??Contact the Clinical Chemistry Laboratory if there are any questions. Chloride 106 98 - 107 mmol/L [facility] Carbon Dioxide 26 22 - 31 mmol/L [facility] Anion Gap 10 5 - 15 mmol/L [facility] Calcium 9.1 8.5 - 10.5 mg/dL [facility] Protein, Total 6.8 6.1 - 8.0 gm/dL [facility] Albumin 4.5 3.2 - 5.2 gm/dL [facility] Aspartate Aminotransferase 15 0 - 39 unit/L [facility] Alanine Aminotransferase 10 0 - 55 unit/L [facility] Alkaline Phosphatase 106 40 - 130 unit/L [facility] Bilirubin, Total 0.9 0.2 - 1.3 mg/dL [facility] Est Glomerular Filtration Rate 78 >=60 mL/min/1. 73 m?? [facility] Comment: This patient? s estimated [...] Agency Comment Spec In Lab Deborah Hector FREIGHT HANDLER CHEMISTRY ORDERABL ES Performing Organization Address City/[facility]/ZIP Co de Phone Number [facility] [place] [address] * PSA (Ultrasensitive) (01/10/2021 8:11 AM EDT) Prostate Specific Antigen (Ultrasensitive ) <0.01 0.00 - 4.00 ng/mL [facility] Comment: PLEASE NOTE: The above reference interval is intended for healthy males with an intact prostate. Values within this reference interval may indicate recurrence in men who have undergone radical prostatectomy. Blood specimen (specimen) 01/10/2021 8:11 AM EDT 01/10/2021 8:42 AM EDT Narrative Resulting Agency Comment Spec In Lab Deborah Hector FREIGHT HANDLER CHEMISTRY ORDERABL ES Performing Organization Address [facility] Co de Phone Number [facility] [place] [address] documented in this encounter Visit Diagnoses Diagnosis Prostate cancer metastatic to multiple sites Malignant neoplasm of prostate Gastroesophageal reflux disease with esophagitis, unspecified whether hemorrhage documented in this encounter Care Teams Tanning Wheel Operator Relationship Specialty Start Date End Date Kennedi Shaver MD [address] [place] [address] PCP - General Family Medicine 08/02/20 06/24/24 documented as of this encounter
--- OUTSIDE RECORDS SUMMARY | 2024-09-11 15:25 | XMS_ITS | Encounter Summary ---
Author Organization [facility] [place] [address] Care Team Providers Care Product Management Manager Name Role Phone Kennedi Shaver MD Primary Care Provider [phone] Reason for Visit * Reason Comments Specialty Pharmacy Review Zytiga Encounter Details Date Type Department Care Team (Late Contact Info) Description 01/03/2021 Specialty [place] [phone] Joaquina Farrell Social History Tobacco Use Types [...] (Latest Contact Info) Description 09/29/2024 4:30 PM [facility] Hospital [place] [phone] Lizet Wilkes MD [facility] [place] [address] 09/29/2024 4:30 PM EST - 09/29/2024 5:00 PM EST [place] [phone] Lizet Wilkes MD [facility] DR GASTRO[place] [address] EGD, UPPER GI ENDOSCOPY (WRVU 2.09) 11/09/2024 10:00 AM EST Laboratory Appointment [place] [facility] [place] [address] [place], [place] [phone] 11/09/2024 11:00 AM EST Office Visit Hematology and Oncology at [place] [phone] Faith Caba MD [facility] DR HEMATOLOGY [place] [address] 11/09/2024 12:00 PM EST Appointment Hematology and Oncology at [place] [phone] Scheduled Procedures Name Priority Associated Diagnoses Date/Ti me EGD, UPPER GI ENDOSCOPY (WRVU 2.09) Gastroesophageal reflux disease with esophagitis, unspecified whether hemorrhage 09/29/2024 4:30 PM EST documented as of this encounter Goals Goal Patient Goal Type Associated Problems Recent Progress Patient-Stated? Author [facility] [place] Medication Compliance and Understanding Patient Facing Action Plan Curly Nicolas, [facility] Note: The patient? s goal is to continue positive results of oral chemotherapy by maintaining improved labs PSA or stable scans in clinic for the upcoming year. documented as of this encounter Visit Diagnoses Not on filedocumented in this encounter Care Teams Product Management Manager Relationship Specialty Start Date End Date Kennedi Shaver MD [address] [place] [address] PCP - General Family Medicine 08/02/20 06/24/24 documented as of this encounter
--- OUTSIDE RECORDS SUMMARY | 2024-09-11 15:25 | XMS_ITS | Encounter Summary ---
[place] [address] Care Team Providers Care Healthcare Administrator Name Role Phone Kennedi Shaver MD Primary Care Provider [phone] Reason for Visit * Treatment/Therapy Plan Authorization (Routine) - Authorized Specialty Diagnoses / Procedures Referred By Blaine peralta Referred To Contact Diagnoses Neoplasm of prostate, 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 Procedures TC LEUPROLIDE ACETATE, PER 1MG, INJECTION (LUPRON) Faith Caba MD [facility] [address] [place] [address] [facility] [address] [place] [address] Referral ID Status Reason Start Date Expiration Date V isits Requested Visits Authorized [id number] Authorized 09/27/2020 09/29/2024 99 99 Encounter Details Date Type Department Care Team (Latest Contact Info) Description 10/04/2020 9:12 AM EST - 10/04/2020 11:59 PM EST Hospital Encounter [place] [address] Neoplasm of prostate, distant metastasis staging category [...] muscle. Once every 3 months, dosage unknown Zytiga 500 mg Tablet TAKE 2 TABLETS BY MOUTH EVERY DAY 60 tablet 11 05/23/2020 2020 tamsulosin (FLOMAX) 0.4 mg Capsule Take 0.4 mg by mouth daily. 10/15/2018 08/17/2022 finasteride (PROSCAR) 5 mg Tablet Take 5 mg by mouth daily. 06/06/2018 08/17/2022 predniSONE (DELTASONE) 5 mg Tablet Take 1 tablet by mouth daily. 30 tablet 11 05/06/2018 08/17/2022 documented as of this encounter Progress Notes * Stephanie Woodson RN - 10/04/2020 11:10 AM EST Patient Name: Chidi Carbone Patient Age: 74 y.o. Birthdate: 1945 Admit date: 10/04/2020 Attending Physician: No att. providers found Access visit. See MAR and/or flowsheet.lupron given. Tolerated well documented in this encounter Plan of Treatment Upcoming Encounters Date Type Department Care Team (Latest Contact Info) Description 09/29/2024 4:30 PM EST Hospital En[place] [phone] Lizet Wilkes MD [facility] [place] [address] 09/29/2024 4:30 PM EST - 09/29/2024 5:00 PM EST [place] [phone] Lizet Wilkes MD [facility] [place] [address] EGD, UPPER GI ENDOSCOPY (WRVU 2.09) 11/09/2024 10:00 AM EST Laboratory Appointment Lab at [facility] Hematology Oncology [address] [place] [phone] 11/09/2024 11:00 AM EST Office Visit [place] [phone] Faith Caba MD [facility] DR [place] [address] 11/09/2024 12:00 PM EST Appointment [place] [phone] Scheduled Procedures Name Priority Associated Diagnoses Date/Ti la EGD, UPPER GI ENDOSCOPY (WRVU 2.09) Gastroesophageal [...] 22.5 mg, Intramuscular, ONCE, 1 dose, On Sat10/04/20 at 1115, Routine, This agent is restricted to outpatient use. Is this drug being given as an outpatient? Yes Given 10/04/2020 11:02 AM EST 22.5 mg Left Gluteal documented in this encounter Care Teams Healthcare Administrator Relationship Specialty Start Date End Date Kennedi Shaver MD [address] [place] [address] PCP - General Family Medicine 08/02/20 06/24/24 documented as of this encounter
--- OUTSIDE RECORDS SUMMARY | 2024-09-11 15:25 | XMS_ITS | Encounter Summary ---
Author Organization [facility] [place] [address] Care Team Providers Care Local Sales Associate Name Role Phone Kennedi Shaver MD Primary Care Provider [phone] Encounter Details Date Type Department Care Team (Latest Contact Info) Description 04/11/2021 8:47 AM EDT - 04/11/2021 11:59 PM EDT Hospital Encounter Hematology [place] [address] Prostate cancer metastatic to multiple sites Discharge [...] daily. Brand name only. 60 tablet 11 03/30/2021 09/12/2021 lisinopriL (Prinivil;Zestril) 5 mg Tablet Take 10 [...] 4:30 PM EST Hospital Encounter [place] [address] Lizet Wilkes MD [facility] [place] [address] 09/29/2024 4:30 PM EST - 09/29/2024 5:00 PM EST Surgery [place] [address] Lizet Wilkes MD [facility] [place] [address] EGD, UPPER GI ENDOSCOPY (WRVU 2.09) 11/09/2024 10:00 AM EST Laboratory Appointment [facility] [place] [facility] [place] [address] [place] [phone] 11/09/2024 11:00 AM EST Office Visit Hematology [place] [phone] Faith Caba MD [facility] [place] [address] 11/09/2024 12:00 PM EST Appointment Hematology [place] [phone] Scheduled Procedures Name Priority Associated Diagnoses Date/Ti me EGD, UPPER GI ENDOSCOPY (WRVU 2.09) Gastroesophageal reflux disease with esophagitis, unspecified whether hemorrhage 09/29/2024 4:30 PM EST documented as of this encounter Goals Goal Patient Goal Type Associated Problems Recent Progress Patient-Stated? Author [facility] Medication Compliance and Understanding Patient Facing Action Plan Curly Nicolas, [facility] Note: The patient? s goal is to continue positive results of oral chemotherapy by maintaining improved labs PSA or stable scans in clinic for the upcoming year. documented as of this encounter Procedures Procedure Name Priority Date/Time Associated Diagnosis Comments HEMOGRAM Routine 04/11/2021 9:21 AM EDT Prostate cancer metastatic to multiple sites DIFFERENTIAL, AUTOMATED Routine 04/11/2021 9:21 AM EDT Prostate cancer metastatic to multiple sites HC CBC,PLT & AUTO DIFF Routine 9:21 AM EDT Prostate cancer metastatic to multiple sites HC PROSTATE SPECIFIC ANTIGEN Routine 04/11/2021 9:21 AM EDT Prostate cancer metastatic to multiple sites COMPREHENSIVE METABOLIC PANEL Routine 04/11/2021 9:21 AM EDT Prostate cancer metastatic to multiple sites documented in this encounter Results * Differential, Automated (04/11/2021 9:21 AM EDT) Neutrophil % 72.3 % [facility] Neutrophil Absolute 5.26 1.70 - 6.10 x10(3)/[facility] Lymph % 16.4 % [facility] Lymphocytes Abs 1.2 0.9 - 3.2 x10(3)/[facility] LAB[facility] Monocyte % 8.7 % [facility] Monocyte Abs 0.6 0.3 - 0.9 x10(3)/[facility] LAB[facility] Eos % 1.9 % [facility] Eosinophils Abs 0.1 0.0 - 0.4 x10(3)/[facility] Basophil % 0.4 % [facility] Baso Absolute 0.0 0.0 - 0.1 x10(3)/[facility] LABOR[facility] Immature Gran % 0.30 % [facility] Comment: Immature granulocytes(IG's)percentage and absolute count will include metamyelocytes, myelocytes, and promyelocytes. Blood smears from CBCs yielding IG's will be scanned manually for concordance. If this scan disagrees with the automated IG or if promyelocytes are noted, a manual differential will be performed. Immature Gran Absolute 0.02 0.00 - 0.04 x10(3)/[facility] Blood 04/11/2021 9:21 AM EDT 04/11/2021 9:27 AM EDT Narrative Resulting Agency Comment Spec In Lab Faith Caba MD HEMATOLOGY ORDERABLE S [facility] [address] * (ABNORMAL) Hemogram (04/11/2021 9:21 AM EDT) White Blood Cell 7.3 4.0 - 9.5 x10(3)/[facility] LABORATORY Red Blood Cell 4.41(L) 4.58 - 5.54 x10(6)/[facility] Hemoglobin 13.3(L) 13.7 - 16.5 gm/dL [facility] Hematocrit 39.1(L) 40.5 - 48.5 % [facility] Mean Cell Volume 88.7 82.9 - 93.1 [facility] Mean Cell Hemoglobin 30.2 27.5 - 32.1 pg [facility] Mean Cell Hemoglobin Concentration 34.0 32.0 - 35.7 gm/dL [facility] Platelet 238 145 - 357 x10(3)/[facility] LABORAT[facility] RDW Standard Deviation 42.8 36.0 - 45.0 [facility] RDW coefficient of variation 13.1 11.4 - 13.8 % [facility] Mean Platelet Volume 9.7 7.6 - 12.9 [facility] NRBC% auto 0.0 % [facility] NRBC Absolute 0.000 0.000 - 0.000 x10(3)/[facility] Blood 04/11/2021 9:21 AM EDT 04/11/2021 9:27 AM EDT Narrative Resulting Agency Comment Spec In Lab Faith Caba MD HEMATOLOGY ORDERABLE S [facility] [place] [address] * Comprehensive metabolic panel (non-fasting) (04/11/2021 9:21 AM EDT) Glucose 110 65 - 199 mg/dL [facility] Comment:Diabetes: >=200 mg/d L plus symptoms Blood Urea Nitrogen 16 10 - 20 mg/dL [facility] Creatinine 0.96 0.80 - 1.50 mg/dL [facility] Sodium 141 135 - 145 mmol/L [facility] Potassium 4.4 3.5 - 5.0 mmol/L [facility] Comment: Please note: ??Patients with WBC >100,000 may have falsely elevated Potassium levels. ??For accurate Potassium quantification in these patients send serum separator tube (gold top) for subsequent determinations. ??Contact the Clinical Chemistry Laboratory if there are any questions. Chloride 104 98 - 107 mmol/L [facility] Carbon Dioxide 25 22 - 31 mmol/L [facility] Anion Gap 12 5 - 15 mmol/L [facility] Calcium 9.2 8.5 - 10.5 mg/dL [facility] Protein, Total 6.9 6.1 - 8.0 gm/dL [facility] Albumin 4.4 3.2 - 5.2 gm/dL [facility] Aspartate Aminotransferase 16 0 - 39 unit/L [facility] Alanine Aminotransferase 11 0 - 55 unit/L [facility] Alkaline Phosphatase 109 40 - 130 unit/L [facility] Bilirubin, Total 1.1 0.2 - 1.3 mg/dL [facility] Est Glomerular Filtration Rate 76 >=60 mL/min/1. 73 m?? [facility] Comment: This patient? s estimated [...] In Lab Faith Caba MD CHEMISTRY ORDERABLES [facility] [place] [address] * PSA (Ultrasensitive) (04/11/2021 9:21 AM EDT) Prostate Specific Antigen (Ultrasensitive ) <0.01 0.00 - 4.00 ng/mL [facility] Comment: PLEASE NOTE: The above reference interval is intended for healthy males with an intact prostate. Values within this reference interval may indicate recurrence in men who have undergone radical prostatectomy. Blood 04/11/2021 9:21 AM EDT 04/11/2021 9:27 AM EDT Narrative Resulting Agency Comment Spec In Lab Faith Caba MD CHEMISTRY ORDERABLES Performing Organization Address City/[facility] Co de Phone Number [facility] [place] [address] documented in this encounter Visit Diagnoses Diagnosis Prostate cancer metastatic to multiple sites Malignant neoplasm of prostate Gastroesophageal reflux disease with esophagitis, unspecified whether hemorrhage documented in this encounter Care Teams Local Sales Associate Relationship Specialty Start Date End Date Kennedi Shaver MD [address] [place] [address] PCP - General Family Medicine 08/02/20 06/24/24 documented as of this encounter
--- OUTSIDE RECORDS SUMMARY | 2024-09-11 15:25 | XMS_ITS | Encounter Summary ---
[place] [address] Care Team Providers Care Leather Grainer Name Role Phone Kennedi Shaver MD Primary Care Provider [phone] Encounter Details Date Type Department Care Team (Late st Contact Info) Description 2020 Orders Only Hematology [place] [phone] Faith Caba MD [facility] DR HEMATOLOGY [place] [address] Neoplasm of prostate, distant metastasis staging category [...] [facility] Hospital Encounter [place] [address] Lizet Wilkes MD [facility] [place] [address] 09/29/2024 4:30 PM EST - 09/29/2024 5:00 PM EST Surgery Gastroenterology at [place] [phone] Lizet Wilkes MD [facility] [place] [address] EGD, UPPER GI ENDOSCOPY (WRVU 2.09) 11/09/2024 10:00 AM EST Laboratory Appointment Lab at [facility] [place] On[place] [address] [place] [phone] 11/09/2024 11:00 AM EST Office Visit Hematology and Oncology at [place] [phone] Faith Caba MD [facility] DR HEMATOLOGY [place] [address] 11/09/2024 12:00 PM EST Appointment Hematology and Oncology at [place] [phone] Scheduled Procedures Name Priority Associated Diagnoses Date/Ti me EGD, UPPER GI ENDOSCOPY (WRVU 2.09) Gastroesophageal reflux disease with esophagitis, unspecified whether hemorrhage 09/29/2024 4:30 PM EST documented as of this encounter Goals Goal Patient Goal Type Associated Problems Recent Progress Patient-Stated? Author [facility] Medication Compliance and Understanding Patient Facing Action [...] hemorrhage documented in this encounter Care Teams Leather Grainer Relationship Specialty Start Date End Date Kennedi Shaver MD [address] [facility] [address] [place] [address] PCP - General Family Medicine 08/02/20 06/24/24 documented as of this encounter
--- OUTSIDE RECORDS SUMMARY | 2024-09-11 15:25 | XMS_ITS | Encounter Summary ---
[place] [address] Care Team Providers Care Geodetic Engineer Name Role Phone Kennedi Shaver MD Primary Care Provider [phone] Reason for Visit * Treatment/Therapy Plan Authorization (Routine) - Authorized Specialty Diagnoses / Procedures Referred By Blaine peralta Referred To Contact Diagnoses Neoplasm of prostate, 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 Procedures TC LEUPROLIDE ACETATE, PER 1MG, INJECTION (LUPRON) Faith Caba MD [facility] DR HEMATOLOGY [place] [address] [facility] [address] [place] [address] Referral ID Status Reason Start Date Expiration Date V isits Requested Visits Authorized [id number] Authorized 09/27/2020 09/29/2024 99 99 Encounter Details Date Type Department Care Team (Latest Contact Info) Description 01/10/2021 8:02 AM EDT - 01/10/2021 11:59 PM EDT Hospital Encounter [place] [address] Neoplasm of prostate, distant metastasis staging category [...] Progress Notes * Alicia Jenkins RN - 01/10/2021 9:51 AM EDT Patient Name: Chidi Carbone Patient Age: 75 y.o. Birthdate: 1945 Admit date: 01/10/2021 Attending Physician: No att. providers found Access visit. See MAR and/or flowsheet. eligard given. Patient tolerated well. documented in this encounter Plan of Treatment Upcoming Encounters Date Type Department Care Team (Latest Contact Info) Description 09/29/2024 4:30 PM EST Hospital [place] [address] Lizet Wilkes MD [facility] [place] [address] 09/29/2024 4:30 PM EST - 09/29/2024 5:00 PM EST [place] [phone] Lizet Wilkes MD [facility] [place] [address] EGD, UPPER GI ENDOSCOPY (WRVU 2.09) 11/09/2024 10:00 AM EST Laboratory Appointment [place] [facility] [place] [address] [place] [phone] 11/09/2024 11:00 AM EST Office Visit [place] [phone] Faith Caba MD [facility] [place]OLOGY [place] [address] 11/09/2024 12:00 PM EST Appointment [place] [address] Scheduled Procedures Name Priority Associated Diagnoses Date/Ti me EGD, UPPER GI ENDOSCOPY (WRVU 2.09) Gastroesophageal reflux disease with esophagitis, unspecified whether hemorrhage 09/29/2024 4:30 PM EST documented as of this encounter Goals Goal Patient Goal Type Associated Problems Recent Progress Patient-Stated? Author [facility] Medication Compliance and Understanding Patient [...] Action Action Date Dose Rate Site leuprolide (3 month) (Eligard) injection 22.5 mg 22.5 mg, Subcutaneous, ONCE, 1 dose, On Sat01/10/21 at 0945, Routine, This agent is restricted to outpatient use. Is this drug being given as an outpatient? Yes Given 01/10/2021 9:49 AM EDT 22.5 mg Abdominal Tissue documented in this encounter Care Teams Geodetic Engineer Relationship Specialty Start Date End Date Kennedi Shaver MD [address] [place] [address] PCP - General Family Medicine 08/02/20 06/24/24 documented as of this encounter
--- OUTSIDE RECORDS SUMMARY | 2024-09-11 15:25 | XMS_ITS | Encounter Summary ---
[place] [address] Care Team Providers Care Fur Dry Cleaner Name Role Phone Kennedi Shaver MD Primary Care Provider [phone] Encounter Details Date Type Department Care Team (Late st Contact Info) Description 10/12/2020 10:30 AM EST TH Visit (TeleHealth) Sleep Center at [address] [phone] Erika Jacobson [facility] (obstructive sleep apnea) Social History Tobacco [...] Progress Notes * Erika Jacobson [facility] - 10/12/2020 10:30 AM EST Sleep Medicine Clinical Health Specialist Brief Follow-Up Note HPI:Mr Chidi Carbone is a 74 y.o. male seen for follow-up of obstructive sleep apnea.Patient presents today for follow-up in PAP clinic: Date: Mr. Wood gives verbal consent to the telephone/tele-health clinic visit. He understands this visit may be billed to a similar clinic visit. Patient is at home in [facility]. Excerpt provided by Dr. Padilla Sleep Study Date: 05/03/20 Obstructive sleep apnea of a severe degree was noted with oxygen desaturations to a low of 85 %. The overall AHI was 53/hr with a CMS AHI of 20/hr. Events were somewhat more frequent while supine andmore likely to be associated with cyclic oxygen desaturations in that position. There was evidence of prominent sleep onset central apneas but overall, central apneas accounted for < 5/hr of events. The mean SpO2 was 93% with 4 min spent at or below 88%. Snoring was observed. Weight: 192# Patient RTC (telephone) to assess adherence and tolerance Treatment: CPAP Pressure: 5-15 cm Interface: Resmed dream wear nasal pillows Fit: good Chin Strap: no HCC: RR Insurance: medicare Snoring: no Dry Mouth/Throat: no Mouth Breathing: no Symptom Benefit: Reubens: Sleep quality: Sleep meds: Ambien for 10-15 years BT: 1030-11 pm, affixes mask Latency: not long Nocturia: wakes once/night-no change that he's aware of RT: between 6-8 am, feeling pretty good in the mornings-less groggy. Daytime Symptoms: less sleepiness, clear headed, no longer drowsy. (his PCP started him on stimulant modafinil same time he started PAP) Involuntary Dozing: no Napping: not anymore Driving: Sleepiness or drowsiness no and never did Caffeine: 1 cup coffee morning Alcohol: yes but has reduced alcohol intake gemai with at 5 pm then has 1-2 glasses of wine with dinner ROS: ENT: Nasal Obstruction: no clear Constitutional: Date: 05/03/20 Study weight: 192# Current weight: patient reported 185-190# There were no vitals filed for this visit. Assessment: Mr. Chidi Carbone is a 74 y.o. male seen for follow-up of obstructive sleep apnea. No data on line seen-not connected to mode. Mr Carbone reports a sense for more air pressure. He's doing reasonably well with CPAP. His PCP started him on a stimulant modafinil the same time he started CPAP. He reports less drowsiness, less foggy brain, no longer napping. He cut back on his alcohol intake. He uses nasal pillows and likes the fit. No aware of any leak. Not wearing a chin strap. I have contacted his DME to help him get his modem connected for us to view the data on line. Patient will call me once his DME has him connected. 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 4) Patient to replace supplies routinely and understands mask cushions can be replaced monthly. 5) Patient will call me once his DME has connected his modem for use to view. The patient indicates understanding of these issues and agrees with the plan. he case was discussed with Dr. Padilla who spoke the with the patient and participated in the formulation and decision making. * Julissa Padilla MD - 10/12/2020 10:30 AM EST Sleep Clinic Note - Telephone Visit due to COVID-19 CC:GIRISH HPI: - Seen in conjunction with Sandy Jacobson - Returns for first follow up on PAP therapy. - No download, will work with RR to get connected. - Subjectively: Using [employer] and likes them. Has taken a long while to get used to it. No snoring, but none before. No dry mouth, no mouth breathing. Some improvement in sleep quality, less groggy in AM, less daytime sleepiness, more clear head. However, PCP started on modafinil by PCP at the same time. Doesn't have drowsy driving. Book to write - On ambien night (many years). ROS: Nocturia x 1, doesn't think that is any different. Weight unchanged. He senses a need for a higher pressure - starting at 5 cm seem too low. Will hold off on changes until review. Drinks 1 cup of coffee in AM. Reduced alcohol, martini at 5 pm, 1-2 glasses of wine with dinner. Download: None to review Exam: There were no vitals taken for this visit. None Assessment: Chidi Carbone returns for his first follow up on PAP therapy. He struggled at first,but now reports better success and benefit. He feels that the initial pressure needs to be higher. We will obtain the download report and suggest changes based on that. Follow up in 2-3 months. Recommendations: 1) Sandy will reach out to and will call patient once she has the download data to review. 2) Follow up 2-3 months as there will likely be a change after review of the download Total visit time 25 min including chart review and discussion Julissa Padilla MD documented in this encounter Plan of Treatment Upcoming Encounters Date Type Department Care Team (Latest Contact Info) Description 09/29/2024 4:30 PM EST Hospital Encounter Gastroenterology at [place] [phone] Lizet Wilkes MD [facility] [place]STR[place] [address] 09/29/2024 4:30 PM EST - 09/29/2024 5:00 PM EST [place] [phone] Lizet Wilkes MD [facility] [place] [address] EGD, UPPER GI ENDOSCOPY (WRVU 2.09) 11/09/2024 10:00 AM EST Laboratory Appointment [place] [facility] [place] [address] [place] [phone] 11/09/2024 11:00 AM EST Office Visit Hematology and Oncology at [place] [phone] Faith Caba MD [facility] [place] [address] 11/09/2024 12:00 PM EST Appointment Hematology [place] [phone] Scheduled Procedures Name Priority Associated Diagnoses Date/Ti me EGD, UPPER GI ENDOSCOPY (WRVU 2.09) Gastroesophageal reflux disease with esophagitis, unspecified whether hemorrhage 09/29/2024 4:30 PM EST documented as of this encounter Goals Goal Patient Goal Type Associated Problems Recent Progress Patient-Stated? Author [facility] Medication Compliance and Understanding Patient [...] hemorrhage documented in this encounter Care Teams Fur Dry Cleaner Relationship Specialty Start Date End Date Kennedi Shaver MD [facility] [address] [place] [address] PCP - General Family Medicine 08/02/20 06/24/24 documented as of this encounter
--- OUTSIDE RECORDS SUMMARY | 2024-09-11 15:25 | XMS_ITS | Encounter Summary ---
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 Procedures TC LEUPROLIDE ACETATE, PER 1MG, INJECTION (LUPRON) Faith Caba MD [facility] DR HEMATOLOGY [place] [address] [facility] Hem Onc [address] [place] [address] Referral ID Status Reason Start Date Expiration Date V isits Requested Visits Authorized [id number] Authorized 09/27/2020 09/29/2024 99 99 Encounter Details Date Type Department Care Team (Latest Contact Info) Description 07/11/2021 7:51 AM EDT - 07/11/2021 11:59 PM EDT Hospital Encounter [place]ematology [place] [address] Neoplasm of prostate, distant metastasis staging category [...] as of this encounter Progress Notes * Neisha Parekh RN - 07/11/2021 9:51 AM EDT Patient Name: Chidi Carbone Patient Age: 75 y.o. Birthdate: 1945 Admit date: 07/11/2021 Attending Physician: No att. providers found Access visit. See MAR and/or flowsheet. Lupron given, pt tolerated well. documented in this encounter Plan of Treatment Upcoming Encounters Date Type Department Care Team (Latest Contact Info) Description 09/29/2024 4:30 PM EST Hospital Encounter [place] [address] Lizet Wilkes MD [facility] [place] [address] 09/29/2024 4:30 PM EST - 09/29/2024 5:00 PM EST Surgery Gastroenterology at [place] [phone] Lizet Wilkes MD [facility] [address] EGD, UPPER GI ENDOSCOPY (WRVU 2.09) 11/09/2024 10:00 AM EST Laboratory Appointment Lab at [facility] Hematology Oncology [address] [place] [phone] 11/09/2024 11:00 AM EST Office Visit Hematology [place] [phone] Faith Caba MD [facility] HEMATOLOGY [place] [address] 11/09/2024 12:00 PM EST Appointment Hematology [place] [address] Scheduled Procedures Name Priority Associated Diagnoses Date/Ti me EGD, UPPER GI ENDOSCOPY (WRVU 2.09) Gastroesophageal reflux disease with esophagitis, unspecified whether hemorrhage 09/29/2024 4:30 PM EST documented as of this encounter Goals Goal Patient Goal Type Associated Problems Recent Progress Patient-Stated? Author [facility] Medication Compliance and Understanding Patient Facing [...] 22.5 mg, Intramuscular, ONCE, 1 dose, On Sat07/11/21 at 0945, Routine, This agent is restricted to outpatient use. Is this drug being given as an outpatient? Yes Given 07/11/2021 9:50 AM EDT 22.5 mg Le ft Gluteal documented in this encounter Care Teams Poultry And Fish Butcher Relationship Specialty Start Date End Date Kennedi Shaver MD [address] [place] [address] PCP - General Family Medicine 08/02/20 06/24/24 documented as of this encounter
--- OUTSIDE RECORDS SUMMARY | 2024-09-11 15:25 | XMS_ITS | Encounter Summary ---
Author Organization [facility] [place] [address] Care Team Providers Care Cash Office Worker Name Role Phone Kennedi Shaver MD Primary Care Provider [phone] Encounter Details Date Type Department Care Team (Late st Contact Info) Description 12/13/2020 Telephone [place] [address] Nino Fan Social History Tobacco Use Types Packs/Day Years [...] encounter Miscellaneous Notes * Telephone Encounter - Nino Fan - 12/13/2020 12:52 PM EDT The GI Telehealth Educate Team attempted to contact patient to check their readiness for their upcoming telehealth visit in GI. We were unable to reach the patient. Jorge A Fan Patient Experience Navigator Section of Gastroenterology and Hepatology documented in this encounter Plan of Treatment Upcoming Encounters Date Type Department Care Team (Latest Contact Info) Description 09/29/2024 4:30 PM EST Hospital Encounter Gastroenterology at [place] [phone] Lizet Wilkes MD [facility] [place] [address] 09/29/2024 4:30 PM EST - 09/29/2024 5:00 PM EST Surgery [place] [address] Lizet Wilkes MD [facility] [place] [address] EGD, UPPER GI ENDOSCOPY (WRVU 2.09) 11/09/2024 10:00 AM EST Laboratory Appointment Lab at [facility] Hematology Oncology [address] [place] [phone] 11/09/2024 11:00 AM EST Office Visit Hematology [place] [address] Faith Caba MD [facility] DR [place] [address] 11/09/2024 12:00 PM EST Appointment Hematology [place] [phone] Scheduled Procedures Name Priority Associated Diagnoses Date/Ti [...] on filedocumented in this encounter Care Teams Cash Office Worker Relationship Specialty Start Date End Date Kennedi Shaver MD [address] [place] [address] PCP - General Family Medicine 08/02/20 06/24/24 documented as of this encounter
--- OUTSIDE RECORDS SUMMARY | 2024-09-11 15:25 | XMS_ITS | Encounter Summary ---
Author Organization [facility] [place] [address] Care Team Providers Care Produce Department Manager Name Role Phone Kennedi Shaver MD Primary Care Provider [phone] Reason for Visit * Reason Comments Specialty Pharmacy Review Encounter Details Date Type Department Care Team (Late st Contact Info) Description 10/04/2020 Specialty [place] [phone] Curly Andres, [facility] Social History Tobacco Use Types [...] (Latest Contact Info) Description 09/29/2024 4:30 PM [facility] Hospital En[place] [phone] Lizet Wilkes MD [facility] [place] [address] 09/29/2024 4:30 PM EST - 09/29/2024 5:00 PM EST Surgery Gastroenterology at [place] [phone] Lizet Wilkes MD [facility] [place] [address] EGD, UPPER GI ENDOSCOPY (WRVU 2.09) 11/09/2024 10:00 AM EST Laboratory Appointment Lab at [facility] Hematology Oncology [address] [place], [place] [phone] 11/09/2024 11:00 AM EST Office Visit Hematology and Oncology at [place] [phone] Faith Caba MD [facility] DR [place] [address] 11/09/2024 12:00 PM EST Appointment Hematology and Oncology at [place] [phone] Scheduled Procedures Name Priority Associated Diagnoses Date/Ti me EGD, UPPER GI ENDOSCOPY (WRVU 2.09) Gastroesophageal reflux disease with esophagitis, unspecified whether hemorrhage 09/29/2024 4:30 PM EST documented as of this encounter Goals Goal Patient Goal Type Associated Problems Recent Progress Patient-Stated? Author [facility] [place] Medication Compliance and Understanding Patient Facing Action Plan Curly Nicolas, [facility] Note: The patient? s goal is to continue positive results of oral chemotherapy by maintaining improved labs PSA or stable scans in clinic for the upcoming year. documented as of this encounter Visit Diagnoses Not on filedocumented in this encounter Care Teams Produce Department Manager Relationship Specialty Start Date End Date Kennedi Shaver MD [address] [place] [address] PCP - General Family Medicine 08/02/20 06/24/24 documented as of this encounter
--- OUTSIDE RECORDS SUMMARY | 2024-09-11 15:25 | XMS_ITS | Encounter Summary ---
Author Organization [facility] [place] [address] Care Team Providers Care Cook Boat Name Role Phone Kennedi Shaver MD Primary Care Provider [phone] Encounter Details Date Type Department Care Team (Latest Contact Info) Description 07/11/2021 7:51 AM EDT - 07/11/2021 11:59 PM EDT Hospital Encounter [place] [address] Neoplasm of prostate, distant metastasis staging category [...] 4:30 PM EST Hospital [place] [address] Lizet Wilkes MD [facility] [place] [address] 09/29/2024 4:30 PM EST - 09/29/2024 5:00 PM EST [place] [phone] Lizet Wilkes MD [facility] [place] [address] EGD, UPPER GI ENDOSCOPY (WRVU 2.09) 11/09/2024 10:00 AM EST Laboratory Appointment Lab at [facility] Hematology Oncology [address] [place] [phone] 11/09/2024 11:00 AM EST Office Visit [place] [phone] Faith Caba MD [facility] DR H[place]ATOLOGY [place] [address] 11/09/2024 12:00 PM EST Appointment [place] [phone] Scheduled Procedures Name Priority Associated Diagnoses Date/Ti me EGD, UPPER GI ENDOSCOPY (WRVU 2.09) Gastroesophageal reflux disease with esophagitis, unspecified whether hemorrhage 09/29/2024 4:30 PM EST documented as of this encounter Goals Goal Patient Goal Type Associated Problems Recent Progress Patient-Stated? Author [facility] [place] Medication Compliance and Understanding Patient Facing Action Plan Curly Nicolas, [facility] Note: The patient? s goal is to continue positive results of oral chemotherapy by maintaining improved labs PSA or stable scans in clinic for the upcoming year. documented as of this encounter Procedures Procedure Name Priority Date/Time Associated Diagnosis Comments HEMOGRAM Routine 07/11/2021 8:00 AM EDT Neoplasm of prostate, 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 DIFFERENTIAL, AUTOMATED Routine 07/11/2021 8:00 AM EDT Neoplasm of prostate, 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 HC CBC,PLT & AUTO DIFF Routine 8:00 AM EDT Neoplasm of prostate, 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 HC PROSTATE SPECIFIC ANTIGEN Routine 07/11/2021 8:00 AM EDT Neoplasm of prostate, 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 COMPREHENSIVE METABOLIC PANEL Routine 07/11/2021 8:00 AM EDT Neoplasm of prostate, 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 documented in this encounter Results * Differential, Automated (07/11/2021 8:00 AM EDT) Neutrophil % 59.6 % [facility] Neutrophil Absolute 3.88 1.70 - 6.10 x10(3)/[facility] Lymph % 24.6 % [facility] Lymphocytes Abs 1.6 0.9 - 3.2 x10(3)/[facility] Monocyte % 10.9 % [facility] Monocyte Abs 0.7 0.3 - 0.9 x10(3)/[facility] Eos % 3.7 % [facility] Eosinophils Abs 0.2 0.0 - 0.4 x10(3)/[facility] Basophil % 0.6 % [facility] Baso Absolute 0.0 0.0 - 0.1 x10(3)/[facility] Immature Gran % 0.60 % [facility] Comment: Immature granulocytes(IG's)percentage and absolute count will include metamyelocytes, myelocytes, and promyelocytes. Blood smears from CBCs yielding IG's will be scanned manually for concordance. If this scan disagrees with the automated IG or if promyelocytes are noted, a manual differential will be performed. Immature Gran Absolute 0.04 0.00 - 0.04 x10(3)/[facility] Blood 07/11/2021 8:00 AM EDT 07/11/2021 8:09 AM EDT Narrative Resulting Agency Comment Spec In Lab Faith Caba MD HEMATOLOGY ORDERABLE S [facility] [place] [address] * (ABNORMAL) Hemogram (07/11/2021 8:00 AM EDT) [facility] White Blood Cell 6.5 4.0 - 9.5 x10(3)/ L [facility] Red Blood Cell 4.27(L) 4.58 - 5.54 x10(6)/[facility] Hemoglobin 13.0(L) 13.7 - 16.5 g/dL [facility] Hematocrit 39.1(L) 40.5 - 48.5 % [facility] Mean Cell Volume 91.6 82.9 - 93.1 fL [facility] Mean Cell Hemoglobin 30.4 27.5 - 32.1 pg [facility] Mean Cell Hemoglobin Concentration 33.2 32.0 - 35.7 g/dL [facility] Platelet 237 145 - 357 x10(3)/[facility] RDW Standard Deviation 43.4 36.0 - 45.0 [facility] RDW coefficient of variation 13.0 11.4 - 13.8 % [facility] Mean Platelet Volume 9.6 7.6 - 12.9 [facility] NRBC% auto 0.0 % [facility] NRBC Absolute 0.000 0.000 - 0.000 x10(3)/[facility] Blood 07/11/2021 8:00 AM EDT 07/11/2021 8:09 AM EDT Narrative Resulting Agency Comment Spec In Lab Faith Caba MD HEMATOLOGY ORDERABLE S [facility] [place] [address] * Comprehensive metabolic panel (non-fasting) (07/11/2021 8:00 AM EDT) Glucose 106 65 - 199 mg/dL [facility] Comment:Diabetes: >=200 mg/d L plus symptoms Blood Urea Nitrogen 17 10 - 20 mg/dL [facility] Creatinine 0.84 0.80 - 1.50 mg/dL [facility] Sodium 142 135 - 145 mmol/L [facility] Potassium 3.9 3.5 - 5.0 mmol/L [facility] Comment: Please note: ??Patients with WBC >100,000 may have falsely elevated Potassium levels. ??For accurate Potassium quantification in these patients send serum separator tube (gold top) for subsequent determinations. ??Contact the Clinical Chemistry Laboratory if there are any questions. Chloride 106 98 - 107 mmol/L [facility] Carbon Dioxide 27 22 - 31 mmol/L [facility] Anion Gap 9 5 - 15 mmol/L [facility] Calcium 9.0 8.5 - 10.5 mg/dL [facility] Protein, Total 6.4 6.1 - 8.0 g/dL [facility] Albumin 4.2 3.2 - 5.2 g/dL [facility] Aspartate Aminotransferase 14 0 - 39 unit/L [facility] Alanine Aminotransferase 12 0 - 55 unit/L [facility] Alkaline Phosphatase 98 40 - 130 unit/L [facility] Bilirubin, Total 0.8 0.2 - 1.3 mg/dL [facility] Est Glomerular Filtration Rate 85 >=60 mL/min/1. 73 m?? [facility] [...] Caba MD CHEMISTRY ORDERABLES Performing Organization Address [facility] Co de Phone Number [facility] [place] [address] * PSA (Ultrasensitive) (07/11/2021 8:00 AM EDT) [...] Caba MD CHEMISTRY ORDERABLES Performing Organization Address [facility] Co de Phone Number [facility] [place] [address] documented in this encounter Visit Diagnoses Diagnosis Neoplasm of prostate, 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 Gastroesophageal reflux disease with esophagitis, unspecified whether hemorrhage documented in this encounter Care Teams Cook Boat Relationship Specialty Start Date End Date Kennedi Shaver MD [facility] [address] [place] [address] PCP - General Family Medicine 08/02/20 06/24/24 documented as of this encounter
--- OUTSIDE RECORDS SUMMARY | 2024-09-11 15:25 | XMS_ITS | Encounter Summary ---
Author Organization [facility] [place] [address] Care Team Providers Care Heavy Equipment Service Technician Name Role Phone Kennedi Shaver MD Primary Care Provider [phone] Reason for Visit * Reason Comments Specialty Pharmacy Review Abiraterone Encounter Details Date Type Department Care Team (Late Contact Info) Description 07/11/2021 Specialty [place] [phone] PoissonJoaquina Social History Tobacco Use Types Packs/Day Years [...] (Latest Contact Info) Description 09/29/2024 4:30 PM [facility] Hospital En[place] [phone] Lizet Wilkes MD [facility] [place] [address] 09/29/2024 4:30 PM EST - 09/29/2024 5:00 PM EST Surgery [place] [address] Lizet Wilkes MD [facility] [place] [address] EGD, UPPER GI ENDOSCOPY (WRVU 2.09) 11/09/2024 10:00 AM EST Laboratory Appointment Lab at [facility] Hematology Oncology [address] [place], [place] [phone] 11/09/2024 11:00 AM EST Office Visit Hematology and Oncology at [place] [phone] Fatih Caba MD [facility] [address] [place] [address] 11/09/2024 12:00 PM EST Appointment Hematology and Oncology at [place] [phone] Scheduled Procedures Name Priority Associated Diagnoses Date/Ti me EGD, UPPER GI ENDOSCOPY (WRVU 2.09) Gastroesophageal reflux disease with esophagitis, unspecified whether hemorrhage 09/29/2024 4:30 PM EST documented as of this encounter Goals Goal Patient Goal Type Associated Problems Recent Progress Patient-Stated? Author [facility] [place] Medication Compliance and Understanding Patient Facing Action Plan Curly Nicolas, [facility] Note: The patient? s goal is to continue positive results of oral chemotherapy by maintaining improved labs PSA or stable scans in clinic for the upcoming year. documented as of this encounter Visit Diagnoses Not on filedocumented in this encounter Care Teams Heavy Equipment Service Technician Relationship Specialty Start Date End Date Kennedi Shaver MD [address] [place] [address] PCP - General Family Medicine 08/02/20 06/24/24 documented as of this encounter
--- OUTSIDE RECORDS SUMMARY | 2024-09-11 15:25 | XMS_ITS | Encounter Summary ---
Author Organization [facility] [place] [address] Care Team Providers Care Shoe Lacer Name Role Phone Kennedi Shaver MD Primary Care Provider [phone] Encounter Details Date Type Department Care Team (Late st Contact Info) Description 11/09/2020 1:45 PM EST TH Visit (TeleHealth) Sleep Center at [address] [phone] Erika Jacobson, LICENSED PSYCHOLOGIST MANAGER SLEEP CENTER GIRISH on CPAP Social History Tobacco Use Types Packs/Day Years [...] - Inhaled Oxygen Concentration - - Weight 87.1 kg (192 lb) 11/08/2020 10:20 AM EST Height 181.6 cm (5' 11.5) 11/08/2020 10:[address] Body Mass Index 26.41 11/08/2020 10:20 AM EST documented in this encounter Progress Notes * Julissa Padilla MD - 11/09/2020 1:45 PM EST Sleep Clinic Note - Telehealth Visit due to COVID-19 CC: GIRISH HPI: - Seen in conjunction with Sandy Jacobson - Feels like he needs more pressure. - No significant drowsiness, denies napping. 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 Goal to get off when book done, doesn't want to change right now. - Ambien 10 mg, nightly, has been detention (10-15 yrs). Download: residual AHI 10, P90 9, but goes higher, VSI 0.9. Leaks has come down over time, but not ideal. + mouth breathing. Exam: Ht 181.6 cm (5' 11.5) Wt 87.1 kg (192 lb) BMI 26.41 kg/m?? Assessment: Chidi Carbone returns for follow up to assess the download, pressure settings and leaks. Overall, he reports a good response but feels the need for higher settings. Also, mouth openingis present. Plan to change to auto 8-15 cm, trial of chinstrap. Follow up 2 months. Recommendations: 1) Trial of chinstrap. Increase setting 8 - 15 cm (he feels the need for higher setting). 2) Chinstrap. 3) Follow up 2 months. Julissa Padilla MD Total visit time 25 min including chart review, documentation, and discussion * Erika Jacobson, LICENSED PSYCHOLOGIST MANAGER - 11/09/2020 1:45 PM EST Sleep Medicine Clinical Health Specialist Brief Follow-Up Note HPI:Mr Chidi Carbone is a 74 y.o. male seen for follow-up of obstructive sleep apnea.Patient presents today for follow-up in PAP clinic: Date: Patient gives verbal consent to the tele-health clinic visit. He understands this visit may be billed to a similar clinic visit. Patient is at home in [facility]. Excerpt provided by Dr. Padilla Sleep [...] below 88%. Snoring was observed. Weight: 192# Prior visit 10/12/20: No data on line seen-not connected to modem. Mr Carbone reports a sense for more [...] me once his DME has him connected. RTC to assess download data: Treatment: CPAP Pressure: 5-15 cm Interface: Resmed dream wear nasal pillows Fit: good Chin Strap: no HCC: RR Insurance: medicare Snoring: no Dry Mouth/Throat: no Mouth Breathing: no Symptom Benefit: [place]: Sleep quality: Sleep position: starts on back rolls to side Sleep meds: 10 mg Ambien nightly for 10-15 years BT: 1030-11 pm, affixes mask Latency: not long Nocturia: wakes once/night between 3-4 pm easy to return to sleep RT: between 6-8 am, feeling pretty good in the mornings-no more grogginess . Daytime Symptoms: less sleepiness, clear headed, no longer drowsy. 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 Chidi Carbone is a 74 y.o. male seen for follow-up of obstructive sleep apnea. Mr Carbone decided to stop using CPAP for couple nights to spend more time with his . He would like to restart but wants a higher pressure. He continues to note go symptom benefit with his rest andenergy. He does notice he wakes to find his CPAP mask off during the night. Has dry mouth of recent. Thinks mouth is opening. He uses the air fit P 30I fit is good. He needs a chin strap to address mouth breathing. Recommend he go on line for the Topaze style strap. The download demonstrates he's using his CPAP and meets adherence. The AHI is elevated mostly hypopneas. Leak has decreased over time but still room for improvement. The min pressure was raised from 5 to 8 cm (8-15 cm) P90 is 9 cm. He will obtain a chin strap on line. RTC in 6-8 weeks to assess outcome. Recomendations: 1) CPAP 8-15 cm with ramp and HH 2) Follow-up: RTC in 6-8 weeksmonths with Sandy ([employer]) 3) Driving safety discussed, recommend patient not drive if drowsy, if drowsy while driving to ladle puller and take a nap. 4) Patient to replace supplies routinely and understands mask cushions can be replaced monthly. 5) He will use a chin strap 6) Script to RR to note the min pressure was rasied to 8 cm The patient indicates understanding of these issues and agrees with the plan. he case was discussed with Dr. Padilla who saw (tele-Opathica) the with the patient and participated in the formulation and decision making. documented in this encounter Plan of Treatment Upcoming Encounters Date Type Department Care Team (Latest Contact Info) Description 09/29/2024 4:30 PM EST Hospital Encounter [place] [phone] Lizet Wilkes MD [facility] [place] [address] 09/29/2024 4:30 PM EST - 09/29/2024 5:00 PM EST Surgery Gastroenterology at [place] [phone] Lizet Wilkes MD [facility] [place] [address] EGD, UPPER GI ENDOSCOPY (WRVU 2.09) 11/09/2024 10:00 AM EST Laboratory Appointment Lab at [facility] Hematology Oncology [address] [place], [place] [phone] 11/09/2024 11:00 AM EST Office Visit Hematology [place] [phone] Faith Caba MD [facility] DR [place] [address] 11/09/2024 12:00 PM EST Appointment Hematology and Oncology at [place] [phone] Scheduled Procedures Name Priority Associated Diagnoses Date/Ti [...] of this encounter Visit Diagnoses Diagnosis GIRISH on CPAP Obstructive sleep apnea (adult) (pediatric) Gastroesophageal reflux disease with esophagitis, unspecified whether hemorrhage documented in this encounter Care Teams Shoe Lacer Relationship Specialty Start Date End Date Kennedi Shaver MD [facility] [address] [place] [address] PCP - General Family Medicine 08/02/20 06/24/24 documented as of this encounter
--- OUTSIDE RECORDS SUMMARY | 2024-09-11 15:25 | XMS_ITS | Encounter Summary ---
Author Organization [facility] [place] [address] Care Team Providers Care Is Project Manager Name Role Phone Kennedi Shaver MD Primary Care Provider [phone] Encounter Details Date Type Department Care Team (Late st Contact Info) Description 11/18/2020 Telephone Sleep Center at [address] [phone] Fatimah Patterson Social History Tobacco Use Types Packs/Day Years [...] encounter Miscellaneous Notes * Telephone Encounter - Fatimah Patterson - 11/18/2020 4:11 PM EST Mail box is full/ unable to lvm to schedule 2 month (01/07/21) follow up with KE/ letter sent documented in this encounter Plan of Treatment Upcoming Encounters Date Type Department Care Team (Latest Contact Info) Description 09/29/2024 4:30 PM EST Hospital Encounter Gastroenterology at [place] [phone] Lizet Wilkes MD [facility] [place] [address] 09/29/2024 4:30 PM EST - 09/29/2024 5:00 PM EST [place] [phone] Lizet Wilkes MD [facility] [place] [address] EGD, UPPER GI ENDOSCOPY (WRVU 2.09) 11/09/2024 10:00 AM EST Laboratory Appointment Lab at [facility] Hematology Oncology [address] [place] [phone] 11/09/2024 11:00 AM EST Office Visit Hematology [place] [phone] Faith Caba MD [facility] DR HEMATOLOGY [place] [address] 11/09/2024 12:00 PM EST Appointment Hematology and Oncology at [place] [phone] Scheduled Procedures Name Priority Associated Diagnoses Date/Ti [...] on filedocumented in this encounter Care Teams Is Project Manager Relationship Specialty Start Date End Date Kennedi Shaver MD [facility] [address] [facility] [address] [place] [address] PCP - General Family Medicine 08/02/20 06/24/24 documented as of this encounter
--- OUTSIDE RECORDS SUMMARY | 2024-09-11 15:25 | XMS_ITS | Encounter Summary ---
[place] [address] Care Team Providers Care Commercial Roofing Estimator Name Role Phone Kennedi Shaver MD Primary Care Provider [phone] Reason for Visit * Treatment/Therapy Plan Authorization (Routine) - Authorized Specialty Diagnoses / Procedures Referred By Blaine peralta Referred To Contact Diagnoses Neoplasm of prostate, 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 Procedures TC LEUPROLIDE ACETATE, PER 1MG, INJECTION (LUPRON) Faith Caba MD [facility] DR [place] [address] [facility] [address] [place] [address] Referral ID Status Reason Start Date Expiration Date V isits Requested Visits Authorized [id number] Authorized 09/27/2020 09/29/2024 99 99 Encounter Details Date Type Department Care Team (Latest Contact Info) Description 04/11/2021 8:47 AM EDT - 04/11/2021 11:59 PM EDT Hospital Encounter Hematology [place] [address] Neoplasm of prostate, distant metastasis staging category [...] of this encounter Progress Notes * Stephanie Woodson, RN - 04/11/2021 11:43 AM EDT Patient Name: Chidi Carbone Patient Age: 75 y.o. Birthdate: 1945 Admit date: 04/11/2021 Attending Physician: No att. providers found Access visit. See MAR and/or flowsheet. documented in this encounter Miscellaneous Notes * Addendum Note - Dilcia Soares RPH - 04/11/2021 11:59 PM EDTEncounter addended by: Dilcia Soares RPH on: 05/08/2021 11:35 AM Actions taken: Order list changed documented in this encounter Plan of Treatment Upcoming Encounters Date Type Department Care Team (Latest Contact Info) Description 09/29/2024 4:30 PM EST Hospital Encounter [place] [phone] Lizet Wilkes MD [facility] [place] [address] 09/29/2024 4:30 PM EST - 09/29/2024 5:00 PM EST Surgery [place] [address] Lizet Wilkes MD [facility] [place] [address] EGD, UPPER GI ENDOSCOPY (WRVU 2.09) 11/09/2024 10:00 AM EST Laboratory Appointment Lab at [facility] Hematology Oncology [address] [place] [phone] 11/09/2024 11:00 AM EST Office Visit Hematology [place] [address] Faith Caba MD [facility] DR [place] [address] 11/09/2024 12:00 PM EST Appointment Hematology [place] [phone] Scheduled Procedures Name Priority Associated Diagnoses Date/Ti al EGD, UPPER GI ENDOSCOPY (WRVU 2.09) Gastroesophageal reflux disease with esophagitis, unspecified whether hemorrhage 09/29/2024 4:30 PM EST documented as of this encounter Goals Goal Patient Goal Type Associated Problems Recent Progress Patient-Stated? Author [facility] Medication Compliance and Understanding Patient Facing [...] 22.5 mg, Subcutaneous, ONCE, 1 dose, On Sat04/11/21 at 1130, Routine, This agent is restricted to outpatient use. Is this drug being given as an outpatient? Yes Given 04/11/2021 11:40 AM EDT 22.5 mg documented in this encounter Care Teams Commercial Roofing Estimator Relationship Specialty Start Date End Date Kennedi Shaver MD [facility] [address] [place] [address] PCP - General Family Medicine 08/02/20 06/24/24 documented as of this encounter
--- OUTSIDE RECORDS SUMMARY | 2024-09-11 15:25 | XMS_ITS | Encounter Summary ---
Author Organization [facility] [place] [address] Care Team Providers Care Supervisor Molding Name Role Phone Kennedi Shaver MD Primary Care Provider [phone] Reason for Visit * Reason Comments Specialty Pharmacy Review Abiraterone Encounter Details Date Type Department Care Team (Late st Contact Info) Description 01/10/2021 Specialty [place] [address] Joaquina Farrell Social History Tobacco Use Types [...] encounter Progress Notes * Joaquina Farrell - 01/10/2021 11:59 PM EDT The - Specialty Pharmacy has completed a benefits investigation for Chidi Carbone to review their eligibility to fill at [facility]. Per patient's medication list they are prescribedABIRATERONE and the medication is able to be filled [facility]ills [facility]. documented in this encounter Plan of Treatment Upcoming Encounters Date Type Department Care Team (Latest Contact Info) Description 09/29/2024 4:30 PM EST Hospital Encounter [place] [phone] Lizet Wilkes MD [facility] [place] [address] 09/29/2024 4:30 PM EST - 09/29/2024 5:00 PM EST Surgery [place] [phone] Lizet Wilkes MD [facility] [place] [address] EGD, UPPER GI ENDOSCOPY (WRVU 2.09) 11/09/2024 10:00 AM EST Laboratory Appointment Lab at [facility] Hematology Oncology [address] [place] [phone] 11/09/2024 11:00 AM EST Office Visit Hematology [place] [phone] Faith Caba MD [facility] DR HEMATOLOGY [place] [address] 11/09/2024 12:00 PM EST Appointment Hematology [place] [phone] Scheduled Procedures Name Priority Associated Diagnoses Date/Ti me EGD, UPPER GI ENDOSCOPY (WRVU 2.09) Gastroesophageal reflux disease with esophagitis, unspecified whether hemorrhage 09/29/2024 4:30 PM EST documented as of this encounter Goals Goal Patient Goal Type Associated Problems Recent Progress Patient-Stated? Author [facility] Medication Compliance and Understanding Patient Facing Action Plan Curly Nicolas, [facility] Note: The patient? s goal is to continue positive results of oral chemotherapy by maintaining improved labs PSA or stable scans in clinic for the upcoming year. documented as of this encounter Visit Diagnoses Not on filedocumented in this encounter Care Teams Supervisor Molding Relationship Specialty Start Date End Date Kennedi Shaver MD [address] [place] [address] PCP - General Family Medicine 08/02/20 06/24/24 documented as of this encounter
--- OUTSIDE RECORDS SUMMARY | 2024-09-11 15:25 | XMS_ITS | Encounter Summary ---
[place] [address] Care Team Providers Care Contracts Officer Name Role Phone Kennedi Shaver MD Primary Care Provider [phone] Encounter Details Date Type Department Care Team (Late st Contact Info) Description 03/30/2021 Orders Only Hematology [place] [address] [address] HEMATOLOGY AND ONCOLOGY [place], [place] [address] Neoplasm of prostate, distant metastasis staging category [...] [facility] Hospital Encounter [place] [address] Lizet Wilkes MD [facility] [place] [address] 09/29/2024 4:30 PM EST - 09/29/2024 5:00 PM EST Surgery Gastroenterology at [place] [phone] Lizet Wilkes MD [facility] [place] [address] EGD, UPPER GI ENDOSCOPY (WRVU 2.09) 11/09/2024 10:00 AM EST Laboratory Appointment Lab at [facility] Hematology Oncology [address] [place], [place] [phone] 11/09/2024 11:00 AM EST Office Visit Hematology and Oncology at [place] [phone] Faith Caba MD [facility] DR [place] [address] 11/09/2024 12:00 PM EST Appointment Hematology and Oncology at [place] [phone] Scheduled Procedures Name Priority Associated Diagnoses Date/Ti [...] hemorrhage documented in this encounter Care Teams Contracts Officer Relationship Specialty Start Date End Date Kennedi Shaver MD [address] [facility] [address] [place] [address] PCP - General Family Medicine 08/02/20 06/24/24 documented as of this encounter
--- OUTSIDE RECORDS SUMMARY | 2024-09-11 15:26 | XMS_ITS | Encounter Summary ---
Author Organization [facility] [place] [address] Care Team Providers Care Spray Worker Name Role Phone Kennedi Shaver MD Primary Care Provider Reason for Visit * Reason Comments Medication Refill Encounter Details Date Type Department Care Team (Late st Contact Info) Description 05/23/2020 Refill Hematology [place] [phone] HEMATOLOGY AND ONCOLOGY [place], [place] [phone] Social History Tobacco Use Types Packs/Day Years [...] Description 09/29/2024 4:[address] [facility] Hospital Encounter [place] [phone] Lizet Wikles MD [facility] [place] [address] 09/29/2024 4:30 PM EST - 09/29/2024 5:00 PM EST Surgery Gastroenterology at [place] [phone] Lizet Wilkes MD [facility] [place] [address] EGD, UPPER GI ENDOSCOPY (WRVU 2.09) 11/09/2024 10:00 AM EST Laboratory Appointment Lab at [facility] Hematology Oncology [address] [place], [place] [phone] 11/09/2024 11:00 AM EST Office Visit Hematology and Oncology at [place] [phone] Faith Caba MD [facility] DR HEMATOLOG[place] [address] 11/09/2024 12:00 PM EST Appointment Hematology [place] [phone] Scheduled Procedures Name Priority Associated Diagnoses Date/Ti [...] on filedocumented in this encounter Care Teams Spray Worker Relationship Specialty Start Date End Date Kennedi Shaver MD [facility] [address] [place] [address] PCP - General 08/22/10 08/01/20 documented as of this encounter
--- OUTSIDE RECORDS SUMMARY | 2024-09-11 15:26 | XMS_ITS | Encounter Summary ---
Author Organization [facility] [place] [address] Care Team Providers Care Marine Engineering Consultant Name Role Phone Kennedi Shaver MD Primary Care Provider [phone] Reason for Visit * Reason Comments Follow-up Encounter Details Date Type Department Care Team (Late st Contact Info) Description 01/05/2020 3:30 PM EDT Office Visit Hematology [place] [address] Faith Caba MD [facility] [place] [address] [address] [place]OLOGY [place] [address] Neoplasm of prostate, distant metastasis staging category [...] Sign Reading Time Taken Comments Blood Pressure 161/101 01/05/2020 3:28 PM EDT Pulse 66 01/05/2020 3:21 PM EDT Temperature 37.9 ??C (100.2 ??F) 01/05/2020 3:21 PM E DT Respiratory Rate 16 01/05/2020 3:21 PM EDT Oxygen Saturation 96% 01/05/2020 3:21 PM EDT Inhaled Oxygen Concentration - - Weight 85.3 kg (188 lb) 01/05/2020 3:21 PM EDT Height 179 cm (5' 10.47) 01/05/2020 3:21 PM EDT Body Mass Index 26.62 01/05/2020 3:21 PM EDT documented in this encounter Progress Notes * Faith Caba MD - 01/05/2020 3:30 PM EDT Images from the original note were not included. N [facility] [place] [facility] [place] [phone] ?? ONCOLOGY FOLLOW UP VISIT DIAGNOSIS: Metastatic [...] HPI: Chidi Carbone presents today for f/u. Cont to do well. Main issue is fatigue which has bee worsening over last few months. 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 No new urinary symptoms, no hot flushes or pain. REVIEW OF SYSTEMS: As noted in HPI/Interval History; all other systems were reviewed and found to be negative. PAST MEDICAL HISTORY: 1. As above 2. GERD and Sol's esophagus S/p Alli Fundoplication 3. ELevated fasting glusoce 4. S/p distant appendectomy 5. S/p tonsilectomy MEDS: Medications 01/05/20 1520 Medication Sig Taking? ZYTIGA 500 mg Tablet TAKE 2 TABLETS BY MOUTH EVERY DAY Yes tamsulosin (FLOMAX) 0.4 mg Capsule Yes finasteride (PROSCAR) 5 mg Tablet Yes predniSONE (DELTASONE) 5 mg Tablet Take 1 tablet by mouth daily. Yes ZOLPIDEM TARTRATE (AMBIEN ORAL) Yes pantoprazole (PROTONIX) 20 mg Tablet, Delayed Release (E.C.) Take 20 mg by mouth 2 times daily. ALLERGY: No Known Allergies FAMILY HX: Reviewed no change SOCIAL HX: Reviewed - no change PHYSICAL EXAM: BP (!) 161/101 (Patient Position: Sitting) Pulse 66 Temp 37.9 ??C (100.2 ??F) (Oral) Resp 16 Ht 179 cm (5' 10.47) Wt 85.3 kg (188 lb) SpO2 96% BMI 26.62 kg/m?? PS=0 Constitutional: NAD Eyes: Non-injected, anicteric. Resp: Effort normal, no resp distress LABS: CBC unremarkable, CMP wnl, PSA undetectable IMAGING STUDIES: No new ASSESSMENT AND PLAN: 74 y.o. M has metastatic prostate cancer with extensive disease involving nodes and bones. He is oncombination lupron+zytiga as first line therapy with very good clinical response. PSA remains undetectable. He has fatigue that I believe is multifactorial given its timing. We reviewed that ADT may be playing a role decreasing stamina. Also discussed ways to conteract muscle mass loss etc from ADT. I suspect that his elevated BP is also a combination of untreated underlying HTN, possibly abiraterone/pred, and addition of modafinil. I recommended he hold using modafinil and d/w with his PCP management of his BP as well as excessive fatigue. F/u in 3 months with labs clinic, lupron All Qns addressed. Knows to call with interim concerns. Faith Caba MD documented in this encounter Plan of Treatment Upcoming Encounters Date Type Department Care Team (Latest Contact Info) Description 09/29/2024 4:30 PM EST Hospital Encounter [place] [address] Lizet Wilkes MD [facility] [place] [address] 09/29/2024 4:30 PM EST - 09/29/2024 5:00 PM EST Surgery [place] [phone] Lizet Wilkes MD [facility] [place] [address] EGD, UPPER GI ENDOSCOPY (WRVU 2.09) 11/09/2024 10:00 AM EST Laboratory Appointment Lab [place] [facility] [place] [address] [place] [phone] 11/09/2024 11:00 AM EST Office Visit Hematology [place] [phone] Faith Caba MD [facility] [place] [address] 11/09/2024 12:00 PM EST Appointment Hematology [place] [address] Scheduled Procedures Name Priority Associated Diagnoses Date/Ti me EGD, UPPER GI ENDOSCOPY (WRVU 2.09) Gastroesophageal reflux disease with esophagitis, unspecified whether hemorrhage 09/29/2024 4:30 PM EST documented as of this encounter Results * PSA (Ultrasensitive) (01/05/2020 1:56 PM EDT) Prostate Specific Antigen (Ultrasensitiv e) <0.01 0.00 - 4.00 ng/mL [facility] Blood specimen (specimen) 01/05/2020 1:56 PM EDT 01/05/2020 2:08 PM EDT Narrative Resulting Agency Comment Spec In Lab Deborah Hector APRN CHEMISTRY ORDERABL ES [facility] [place] [address] * Comprehensive metabolic panel (non-fasting) (01/05/2020 1:56 PM EDT) Glucose 124 65 - 199 mg/dL [facility] Comment:Diabetes: >=200 mg/d L plus symptoms Blood Urea Nitrogen 18 10 - 20 mg/dL [facility] Creatinine 1.01 0.80 - 1.50 mg/dL [facility] Sodium 140 135 - 145 mmol/L [facility] Potassium 4.2 3.5 - 5.0 mmol/L [facility] Comment: Please note: ??Patients with WBC >100,000 may have falsely elevated Potassium levels. ??For accurate Potassium quantification in these patients send serum separator tube (gold top) for subsequent determinations. ??Contact the Clinical Chemistry Laboratory if there are any questions. Chloride 104 98 - 107 mmol/L [facility] Carbon Dioxide 23 22 - 31 mmol/L [facility] Anion Gap 13 5 - 15 mmol/L [facility] Calcium 9.4 8.5 - 10.5 mg/dL [facility] Protein, Total 6.7 6.1 - 8.0 gm/dL [facility] Albumin 4.3 3.2 - 5.2 gm/dL [facility] Aspartate Aminotransferase 14 0 - 39 unit/L [facility] Alanine Aminotransferase 10 0 - 55 unit/L [facility] Alkaline Phosphatase 117 40 - 130 unit/L [facility] Bilirubin, Total 0.5 0.2 - 1.3 mg/dL [facility] Est Glomerular Filtration Rate 72 >=60 mL/min/1. 73 m?? [facility] Comment: The eGFR was calculated using the CKD-EPI equation. As with all creatinine based estimates of kidney function, eGFR values calculated with the CKD-EPI equation are not accurate in patients with acute kidney failure, extremes of body mass or the acutely ill. [email or web address]/[facility] eGFR 84 >=60 mL/min/1. 73 m?? [facility] Comment: The eGFR was calculated using the CKD-EPI equation. As with all creatinine based estimates of kidney function, eGFR values calculated with the CKD-EPI equation are not accurate in patients with acute kidney failure, extremes of body mass or the acutely ill. http://[employer]First/[facility] Blood specimen (specimen) 01/05/2020 1:56 PM EDT 01/05/2020 2:08 PM EDT Narrative Resulting Agency Comment Spec In Lab Deborah Hector AZURE ARCHITECT CHEMISTRY ORDERABL ES [facility] [place] [address] documented in this encounter Visit Diagnoses Diagnosis Neoplasm of prostate, 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 Gastroesophageal reflux disease with esophagitis, unspecified whether hemorrhage documented in this encounter Care Teams Marine Engineering Consultant Relationship Specialty Start Date End Date Kennedi Shaver MD [address] [place] [address] PCP - General 08/22/10 08/01/20 documented as of this encounter
--- OUTSIDE RECORDS SUMMARY | 2024-09-11 15:26 | XMS_ITS | Encounter Summary ---
Author Organization [facility] [place] [address] Care Team Providers Care Gas Mask Inspector Name Role Phone Kennedi Shaver MD Primary Care Provider [phone] Encounter Details Date Type Department Care Team (Late st Contact Info) Description 01/04/2020 Telephone Hematology [place] [phone] Susanna Adams RN Social History Tobacco Use Types Packs/Day [...] encounter Miscellaneous Notes * Telephone Encounter - Susanna Adams RN - 01/04/2020 1:41 PM EDT Second attempt, no answer, unable to leave VM. * Telephone Encounter - Susanna Adams RN - 01/04/2020 9:55 AM EDT Attempt to call patient to update them regarding visitor policy and COVID-19 interventions as they enter the building in preporation for his appointments tomorrow. No answer, VM box is full and unable to leave a message. I will try again later. documented in this encounter Plan of Treatment Upcoming Encounters Date Type Department Care Team (Latest Contact Info) Description 09/29/2024 4:30 PM EST Hospital Encounter [place] [phone] Lizet Wilkes MD [facility] [place] [address] 09/29/2024 4:30 PM EST - 09/29/2024 5:00 PM EST [place] [phone] Lizet Wilkes MD [facility] [place] [address] EGD, UPPER GI ENDOSCOPY (WRVU 2.09) 11/09/2024 10:00 AM EST Laboratory Appointment Lab at [facility] Hematology Oncology [address] [place] [phone] 11/09/2024 11:00 AM EST Office Visit Hematology [place] [address] Faith Caba MD [facility] DR [place] [address] 11/09/2024 12:00 PM EST Appointment Hematology [place] [phone] Scheduled Procedures Name Priority Associated Diagnoses Date/Ti me EGD, UPPER GI ENDOSCOPY (WRVU 2.09) Gastroesophageal reflux disease with esophagitis, unspecified whether hemorrhage 09/29/2024 4:30 PM EST documented as of this encounter Visit Diagnoses Not on filedocumented in this encounter Care Teams Gas Mask Inspector Relationship Specialty Start Date End Date Kennedi Shaver MD [address] [place] [address] PCP - General 08/22/10 08/01/20 documented as of this encounter
--- OUTSIDE RECORDS SUMMARY | 2024-09-11 15:26 | XMS_ITS | Encounter Summary ---
Author Organization [facility] [place] [address] Care Team Providers Care Traffic Coordinator Name Role Phone Kennedi Shaver MD Primary Care Provider Reason for Visit * Reason Comments Follow-up Encounter Details Date Type Department Care Team (Late st Contact Info) Description 07/05/2020 10:00 AM EDT Office Visit [place]ematology [place] [phone] Faith Caba MD [facility] DR HEMATOLOGY [place] [address] [address] HEMATOLOGY [place] [address] Hypertension, unspecified type; Fatigue, unspecified type; Prostate cancer metastatic to multiple sites; Androgen deprivation therapy; Encounter for monitoring androgen deprivation therapy Social History Tobacco Use Types [...] Sign Reading Time Taken Comments Blood Pressure 166/89 07/05/2020 9:03 AM EDT Pulse 63 07/05/2020 9:03 AM EDT Temperature 36.4 ??C (97.5 ??F) 07/05/2020 9:03 AM ED T Respiratory Rate 20 07/05/2020 9:03 AM EDT Oxygen Saturation 99% 07/05/2020 9:03 AM EDT Inhaled Oxygen Concentration - - Weight 85.8 kg (189 lb 3.2 oz) 07/05/2020 9:03 A M EDT Height 182.8 cm (5' 11.97) 07/05/2020 9:03 AM E DT Body Mass Index 25.68 07/05/2020 9:03 AM EDT documented in this encounter Progress Notes * Deborah Hector, BARTOLO - 07/05/2020 10:00 AM EDT Images from the original note were not included. N [facility] ON[facility] [place] [phone] ?? ONCOLOGY FOLLOW UP VISIT DIAGNOSIS: Metastatic [...] Carbone presents today for f/u and scheduled Eligard injection. He continues taking abiraterone/prednisone as directed. Continues to do well overall, though struggles with fatigue. Reports had a sleep study per his PCP which indicated sleep apnea. Waiting for f/u appt to review plan. Wouldlike to continue modafinil as he's found this very helpful in terms of managing fatigue and allowing him to be productive, especially with his writing. Otherwise, eating and drinking well. No urinaryor bowel symptoms. Denies pain or other focal complaints. Has been working on projects around house/property this summer, looking forward to getting back to writing this fall/winter. REVIEW OF SYSTEMS: As noted in HPI/Interval History; all other systems were reviewed and found to be negative. PAST MEDICAL HISTORY: 1. As above 2. GERD and Sol's esophagus S/p Alli Fundoplication 3. ELevated fasting glusoce 4. S/p distant appendectomy 5. S/p tonsilectomy MEDS: Medications 07/05/20 0907 Medication Sig Taking? Zytiga 500 mg Tablet TAKE 2 TABLETS BY MOUTH EVERY DAY Yes leuprolide acetate (LUPRON DEPOT IM) Inject [...] Reviewed - no change PHYSICAL EXAM: BP 166/89 (Patient Position: Sitting) Pulse 63 Temp 36.4 ??C (97.5 ??F) (Temporal) Resp 20 Ht 182.8 cm (5' 11.97) Wt 85.8 kg (189 lb 3.2 oz) SpO2 99% BMI 25.68 kg/m?? PS=0 Constitutional: Well appearing, NAD Eyes: Non-injected, anicteric. Resp: Normal respiratory effort, no distress. Skin: Warm and dry, no rash or lesions noted on limited exam. No pallor Musculoskeltal: Ambulatory with normal gait, no assistive device needed. LABS: CBC unremarkable (Hgb sl improved), CMP wnl, PSA pending IMAGING STUDIES: No new ASSESSMENT AND PLAN: 74 y.o. M has metastatic prostate cancer with extensive disease involving nodes and bones. He is oncombination lupron+zytiga as first line therapy and has maintained excellent clinical response. PSAtoday is pending. Assuming he continues trend, we will continue with current regimen. Due for Ivy today. We'll plan to see him back in 3 months for labs, visit and next injection. We agreed I would call him if PSA has become detectable. Fatigue: Based on pt's report, sounds as though may at least be partially related to sleep apnea. Advised him to cont f/u with his PCP on management. Otherwise, cont maintain physical activity balanced with rest both for fatigue management as well as bone protection. Hypertension: Pt reports has monitored with PCP, was consistently 10 points lower. Cont monitoring as abiraterone can contribute to hypertension. Mr. Carbone asked appropriate questions and verbalized good understanding of and agreement with theplan. I encouraged him to call anytime with questions or concerns and he agreed. BARTOLO Bennett APRN documented in this encounter Plan of Treatment Upcoming Encounters Date Type Department Care Team (Latest Contact Info) Description 09/29/2024 4:30 PM EST Hospital En[place] [phone] Lizet Wilkes MD [facility] [place] [address] 09/29/2024 4:30 PM EST - 09/29/2024 5:00 PM EST [place] [phone] Lizet Wilkes MD [facility] [place] [address] EGD, UPPER GI ENDOSCOPY (WRVU 2.09) 11/09/2024 10:00 AM EST Laboratory Appointment [place] [facility] [place] [address] [place] [phone] 11/09/2024 11:00 AM EST Office Visit [place]ematology [place] [phone] Faith Caba MD [facility] DR [place] [address] 11/09/2024 12:00 PM EST Appointment Hematology [place] [phone] Scheduled Procedures Name Priority Associated Diagnoses Date/Ti me EGD, UPPER GI ENDOSCOPY (WRVU 2.09) Gastroesophageal reflux disease with esophagitis, unspecified whether hemorrhage 09/29/2024 4:30 PM EST documented as of this encounter Goals Goal Patient Goal Type Associated Problems Recent Progress Patient-Stated? Author DH Ravenden Medication Compliance and Understanding Patient Facing Action Plan Curly Nicolas, [facility] Note: The patient? s goal is to continue positive results of oral chemotherapy by maintaining improved labs PSA or stable scans in clinic for the upcoming year. documented as of this encounter Results * Comprehensive metabolic panel (non-fasting) (10/04/2020 9:33 AM EST) Glucose 105 65 - 199 mg/dL [facility] Comment:Diabetes: >=200 mg/d L plus symptoms Blood Urea Nitrogen 16 10 - 20 mg/dL [facility] Creatinine 0.87 0.80 - 1.50 mg/dL [facility] Sodium 141 135 - 145 mmol/L [facility] Potassium 3.9 3.5 - 5.0 mmol/L [facility] Comment: Please note: ??Patients with WBC >100,000 may have falsely elevated Potassium levels. ??For accurate Potassium quantification in these patients send serum separator tube (gold top) for subsequent determinations. ??Contact the Clinical Chemistry Laboratory if there are any questions. Chloride 103 98 - 107 mmol/L [facility] Carbon Dioxide 24 22 - 31 mmol/L [facility] Anion Gap 14 5 - 15 mmol/L [facility] Calcium 9.2 8.5 - 10.5 mg/dL [facility] Protein, Total 6.6 6.1 - 8.0 gm/dL [facility] Albumin 4.4 3.2 - 5.2 gm/dL [facility] Aspartate Aminotransferase 17 0 - 39 unit/L [facility] Alanine Aminotransferase 12 0 - 55 unit/L [facility] Alkaline Phosphatase 106 40 - 130 unit/L [facility] Bilirubin, Total 1.0 0.2 - 1.3 mg/dL [facility] Est Glomerular Filtration Rate 84 >=60 mL/min/1. 73 m?? [facility] Comment: This patient? s estimated glomerular filtration rate (eGFR) is between 84 mL/min/1.73 m2 (patients with less muscle mass per kg body weight) and 98 mL/min/1.73 m2 (patients with more muscle mass per kg body weight) as determined by the CKD-EPI equation. Assessment of eGFR is not appropriate when creatinine concentrations are rapidly changing. For clinical decisions where creatinine clearance will affect therapy, a 24-hour urine creatinine clearance may be advised. Assignment of CKD stage 1 ? 5 for patients with an eGFR near the transition point between stages may be based on clinical assessment of muscle mass and symptoms in addition to eGFR. Blood specimen (specimen) 10/04/2020 9:33 AM EST 10/04/2020 10:00 AM EST Narrative Resulting Agency Comment Spec In Lab Deborah Hector VITICULTURE TEACHER CHEMISTRY ORDERABL ES [facility] [place] [address] * PSA (Ultrasensitive) (10/04/2020 9:33 AM EST) Prostate Specific Antigen (Ultrasensitive ) <0.01 0.00 - 4.00 ng/mL [facility] Comment: PLEASE NOTE: The above reference interval is intended for healthy males with an intact prostate. Values within this reference interval may indicate recurrence in men who have undergone radical prostatectomy. Blood specimen (specimen) 10/04/2020 9:33 AM EST 10/04/2020 10:00 AM EST Narrative Resulting Agency Comment Spec In Lab Deborah Hector APRN CHEMISTRY ORDERABL ES Performing Organization Address [facility]/State/ZIP Co de Phone Number [facility] [place] [address] documented in this encounter Visit Diagnoses Diagnosis Hypertension, unspecified type Fatigue, unspecified type Prostate cancer metastatic to multiple sites Malignant neoplasm of prostate Androgen deprivation therapy Encounter for therapeutic drug monitoring Encounter for monitoring androgen deprivation therapy Encounter for therapeutic drug monitoring Gastroesophageal reflux disease with esophagitis, unspecified whether hemorrhage documented in this encounter Care Teams Traffic Coordinator Relationship Specialty Start Date End Date Kennedi Shaver MD [address] [place] [address] PCP - General 08/22/10 08/01/20 documented as of this encounter
--- OUTSIDE RECORDS SUMMARY | 2024-09-11 15:26 | XMS_ITS | Encounter Summary ---
Author Organization [facility] [place] [address] Care Team Providers Care Glass Beveler Name Role Phone Kennedi Shaver MD Primary Care Provider [phone] Encounter Details Date Type Department Care Team (Latest Contact Info) Description 07/05/2020 8:51 AM EDT Hospital Encounter [place]ology [place] [address] Neoplasm of prostate, distant metastasis staging category [...] 50 mg by mouth as needed. 06/14/2014 leuprolide acetate (LUPRON DEPOT IM) Inject into [...] mouth daily. 30 tablet 11 05/06/2018 08/17/2022 pantoprazole (PROTONIX) 20 mg Tablet, Delayed Release (E.C.) Take 20 mg by mouth 2 times daily. 10/04/2020 ZOLPIDEM TARTRATE (AMBIEN ORAL) 12/05/2010 10/04/2020 documented as of this encounter Plan of Treatment Upcoming Encounters Date Type Department Care Team (Latest Contact Info) Description 09/29/2024 4:30 PM EST Hospital [place] [address] Lizet Wilkes MD [facility] [place] [address] 09/29/2024 4:30 PM EST - 09/29/2024 5:00 PM EST [place] [phone] Lizet Wilkes MD [facility] [place] [address] EGD, UPPER GI ENDOSCOPY (WRVU 2.09) 11/09/2024 10:00 AM EST Laboratory Appointment Lab at [facility] Hematology Oncology [address] [place] [phone] 11/09/2024 11:00 AM EST Office Visit [place]ematology [place] [phone] Faith Caba MD [facility] [place] [address] 11/09/2024 12:00 PM EST Appointment Hematology [place] [address] Scheduled Procedures Name Priority Associated Diagnoses Date/Ti me EGD, UPPER GI ENDOSCOPY (WRVU 2.09) Gastroesophageal reflux disease with esophagitis, unspecified whether hemorrhage 09/29/2024 4:30 PM EST documented as of this encounter Goals Goal Patient Goal Type Associated Problems Recent Progress Patient-Stated? Author [facility] Medication Compliance and Understanding Patient Facing Action Plan Curly Nicolas, [facility] Note: The patient? s goal is to continue positive results of oral chemotherapy by maintaining improved labs PSA or stable scans in clinic for the upcoming year. documented as of this encounter Procedures Procedure Name Priority Date/Time Associated Diagnosis Comments HEMOGRAM Routine 07/05/2020 8:58 AM EDT Neoplasm of prostate, 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 DIFFERENTIAL, AUTOMATED Routine 07/05/2020 8:58 AM EDT Neoplasm of prostate, 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 HC CBC,PLT & AUTO DIFF Routine 0 8:58 AM EDT Neoplasm of prostate, 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 HC VENIPUNCTURE Routine 07/05/2020 8:58 AM EDT Neoplasm of prostate, 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 COMPREHENSIVE METABOLIC PANEL Routine 07/05/2020 8:58 AM EDT Neoplasm of prostate, 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 documented in this encounter Results * Differential, Automated (07/05/2020 8:58 AM EDT) Neutrophil % 55.0 % [facility] Neutrophil Absolute 3.39 1.70 - 6.10 x10(3)/[facility] Lymph % 27.8 % [facility] Lymphocytes Abs 1.7 0.9 - 3.2 x10(3)/[facility] Monocyte % 12.2 % [facility] Monocyte Abs 0.8 0.3 - 0.9 x10(3)/[facility] Eos % 3.9 % [facility] Eosinophils Abs 0.2 0.0 - 0.4 x10(3)/[facility] Basophil % 0.6 % [facility] Baso Absolute 0.0 0.0 - 0.1 x10(3)/[facility] Immature Gran % 0.50 % [facility] Comment: Immature granulocytes(IG's)percentage and absolute count will include metamyelocytes, myelocytes, and promyelocytes. Blood smears from CBCs yielding IG's will be scanned manually for concordance. If this scan disagrees with the automated IG or if promyelocytes are noted, a manual differential will be performed. Immature Gran Absolute 0.03 0.00 - 0.04 x10(3)/[facility] Blood specimen (specimen) 07/05/2020 8:58 AM EDT 07/05/2020 9:08 AM EDT Narrative Resulting Agency Comment Spec In Lab Faith Caba MD HEMATOLOGY ORDERABLE S [facility] [place] [address] * (ABNORMAL) Hemogram (07/05/2020 8:58 AM EDT) White Blood Cell 6.2 4.0 - 9.5 x10(3)/mc L [facility] Red Blood Cell 4.42(L) 4.58 - 5.54 x10(6)/ L [facility] Hemoglobin 13.2(L) 13.7 - 16.5 gm/dL [facility] Hematocrit 40.9 40.5 - 48.5 % [facility] Mean Cell Volume 92.5 82.9 - 93.1 fL [facility] Mean Cell Hemoglobin 29.9 27.5 - 32.1 pg [facility] Mean Cell Hemoglobin Concentration 32.3 32.0 - 35.7 gm/dL [facility] Platelet 225 145 - 357 x10(3)/mc L [facility] RDW Standard Deviation 43.8 36.0 - 45.0 fL [facility] RDW coefficient of variation 12.9 11.4 - 13.8 % [facility] Mean Platelet Volume 9.7 7.6 - 12.9 fL [facility] NRBC% auto 0.0 % [facility] NRBC Absolute 0.000 0.000 - 0.000 x10(3)/mc L [facility] Blood specimen (specimen) 07/05/2020 8:58 AM EDT 07/05/2020 9:08 AM EDT Narrative Resulting Agency Comment Spec In Lab Faith Caba MD HEMATOLOGY ORDERABLE S [facility] [place] [address] * Comprehensive metabolic panel (non-fasting) (07/05/2020 8:58 AM EDT) Glucose 107 65 - 199 mg/dL [facility] Comment:Diabetes: >=200 mg/d L plus symptoms Blood Urea Nitrogen 18 10 - 20 mg/dL [facility] Creatinine 0.90 0.80 - 1.50 mg/dL [facility] Sodium 143 135 - 145 mmol/L [facility] Potassium 4.2 3.5 - 5.0 mmol/L [facility] Comment: Please note: ??Patients with WBC >100,000 may have falsely elevated Potassium levels. ??For accurate Potassium quantification in these patients send serum separator tube (gold top) for subsequent determinations. ??Contact the Clinical Chemistry Laboratory if there are any questions. Chloride 106 98 - 107 mmol/L [facility] Carbon Dioxide 27 22 - 31 mmol/L [facility] Anion Gap 10 5 - 15 mmol/L [facility] Calcium 9.3 8.5 - 10.5 mg/dL [facility] Protein, Total 6.7 6.1 - 8.0 gm/dL [facility] Albumin 4.4 3.2 - 5.2 gm/dL [facility] Aspartate Aminotransferase 17 0 - 39 unit/L [facility] Alanine Aminotransferase 11 0 - 55 unit/L [facility] Alkaline Phosphatase 96 40 - 130 unit/L [facility] Bilirubin, Total 0.5 0.2 - 1.3 mg/dL [facility] Est Glomerular Filtration Rate 83 >=60 mL/min/1. 73 m?? [facility] Comment: The eGFR was calculated using the CKD-EPI equation. As with all creatinine based estimates of kidney function, eGFR values calculated with the CKD-EPI equation are not accurate in patients with acute kidney failure, extremes of body mass or the acutely ill. http://[employer]/[facility] eGFR 96 >=60 mL/min/1. 73 m?? [facility] Comment: The eGFR was calculated using the CKD-EPI equation. As with all creatinine based estimates of kidney function, eGFR values calculated with the CKD-EPI equation are not accurate in patients with acute kidney failure, extremes of body mass or the acutely ill. http://[employer]/[facility] Blood specimen (specimen) 07/05/2020 8:58 AM EDT 07/05/2020 9:08 AM EDT Narrative Resulting Agency Comment Spec In Lab Faith Caba MD CHEMISTRY ORDERABLES [facility] [place] [address] * PSA (Ultrasensitive) (07/05/2020 8:58 AM EDT) Prostate Specific Antigen (Ultrasensitive ) <0.01 0.00 - 4.00 ng/mL [facility] Comment: PLEASE NOTE: The above reference interval is intended for healthy males with an intact prostate. Values within this reference interval may indicate recurrence in men who have undergone radical prostatectomy. Blood specimen (specimen) 07/05/2020 8:58 AM EDT 07/05/2020 9:08 AM EDT Narrative Resulting Agency Comment Spec In Lab Faith Caba MD CHEMISTRY ORDERABLES Performing Organization Address City/State/[facility] Co de Phone Number [facility] [place] [address] documented in this encounter Visit Diagnoses Diagnosis Neoplasm of prostate, 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 Gastroesophageal reflux disease with esophagitis, unspecified whether hemorrhage documented in this encounter Care Teams Glass Beveler Relationship Specialty Start Date End Date Kennedi Shaver MD [address] [place] [address] PCP - General 08/22/10 08/01/20 documented as of this encounter
--- OUTSIDE RECORDS SUMMARY | 2024-09-11 15:26 | XMS_ITS | Encounter Summary ---
Author Organization [facility] [place] [address] Care Team Providers Care Rn Staffing Name Role Phone Kennedi Shaver MD Primary Care Provider [phone] Encounter Details Date Type Department Care Team (Late st Contact Info) Description 10/15/2019 Specialty [place] [address] Curly Andres [facility] [...] as of this encounter Progress Notes * Curly Andres [facility] - 10/15/2019 12:50 PM EST Clinical Management Plan: Medication management Specialty Pharmacy Consultation; Curly Andres [facility] Comprehensive Medication Management (CMM) Chidi Lopez Karriemyranda Mr. Chidi Carbone is a 73 y.o. (1945) male diagnosed with metastatic prostate cancer that has been on treatment with Zytiga and prednisone since April 2017. The patient has been filling his prescription with [facility] since that time. I talked with the patient over the phone today to discuss his treatment with Zytiga and provide information about the Specialty Pharmacy. Chidi is currently receiving Zytiga, prednisone, and Lupron for his metastatic prostate cancer with his PSA remaining undetectable for ~1 year. He reports tolerating treatment well and has noticed improvement in fatigue. The patient states that he is walking regularly with his dog and denies day-time napping. The patient does state that he has joint pain with morning stiffness and that continuesthroughout the day. For pain he uses ibuprofen that provides some relief. I told the patient the joint pain may be from the Zytiga and/or osteoarthritis. I reviewed the patients medication profile and no interactions were seen. The patient reports continuing to take Zytiga 1000 mg once daily on an empty stomach with concurrent prednisone. He denies missing doses of treatment and states he has a monthly copay of $25. He reports good service from [facility] and states that he has been receiving his medications on time. I provided the patient with my contact information and asked him to reach out with any questions or concerns. Was a change made to the Care Plan: no If yes, should the medication be held: No Curly Andres RPH 10/15/19 2:08 PM documented in this encounter Plan of Treatment Upcoming Encounters Date Type Department Care Team (Latest Contact Info) Description 09/29/2024 4:30 PM EST Hospital Encounter [place] [address] Lizet Wilkes MD [facility] [place] [address] 09/29/2024 4:30 PM EST - 09/29/2024 5:00 PM EST Surgery [place] [address] Lizet Wilkes MD [facility] [place] [address] EGD, UPPER GI ENDOSCOPY (WRVU 2.09) 11/09/2024 10:00 AM EST Laboratory Appointment Lab at [facility] Hematology Oncology [address] [place] [phone] 11/09/2024 11:00 AM EST Office Visit Hematology [place] [phone] Faith Caba MD [facility] DR [place]EMATOLOGY [place] [address] 11/09/2024 12:00 PM EST Appointment Hematology [place] [phone] Scheduled Procedures Name Priority Associated Diagnoses Date/Ti me EGD, UPPER GI ENDOSCOPY (WRVU 2.09) Gastroesophageal reflux disease with esophagitis, unspecified whether hemorrhage 09/29/2024 4:30 PM EST documented as of this encounter Visit Diagnoses Not on filedocumented in this encounter Care Teams Rn Staffing Relationship Specialty Start Date End Date Kennedi Shaver MD [facility] [address] [facility] [address] [place] [address] PCP - General 08/22/10 08/01/20 documented as of this encounter
--- OUTSIDE RECORDS SUMMARY | 2024-09-11 15:26 | XMS_ITS | Encounter Summary ---
Author Organization [facility] [place] [address] Care Team Providers Care Clarification Operator Name Role Phone Kennedi Shaver MD Primary Care Provider [phone] Encounter Details Date Type Department Care Team (Late st Contact Info) Description 03/28/2020 [place]phone [place] [phone] Curly Andres, [facility] Social History Tobacco Use [...] encounter Miscellaneous Notes * Telephone Encounter - Curly Andres [facility] - 03/28/2020 10:48 AM EDT Telephone note: Chidi called in today regarding ongoing concerns with day-time tiredness. The patient is currentlyreceiving treatment with Lupron and Zytiga for prostate cancer with an excellent response to therapy but reports excessive afternoon drowsiness that was reported to have started approximately 6 months ago. 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 He states that he had been using his 's Provigil which allowed him to complete his book and reduce the fatigue. The patient states that he is interested in trying a stimulatant medication to help with the fatigue from his cancer treatment and asked for my recommendation. I stated that s timulatants like Provigil can be helpful for some patients with cancer induced fatigue but they have side-effects (cardiovascular and appetite suppression) that make them not the best choice for all patients. The patient has been referred to Dr. Porter for a sleep study to assess for sleep apnea. Irecommended the patient follow-up with the sleep study and suggested the patient try some mild cardiovascular activity (walking, recumbent bike) in the morning to help with the afternoon fatigue. Thepatient would like to discuss stimulatant with Dr. Caba again at his next appointment on 04/05/20 if these nonpharmacologic interventions do not provide benefit. I will plan to meet with the patientat his next appointment on 04/05/20 for follow-up. Curly Andres RPH 03/28/20 @ 11:14 am. documented in this encounter Plan of Treatment Upcoming Encounters Date Type Department Care Team (Latest Contact Info) Description 09/29/2024 4:30 PM EST Hospital Encounter [place] [address] Lizet Wilkes MD [facility] [place] [address] 09/29/2024 4:30 PM EST - 09/29/2024 5:00 PM EST Surgery [place] [address] Lizet Wilkes MD [facility] [place] [address] EGD, UPPER GI ENDOSCOPY (WRVU 2.09) 11/09/2024 10:00 AM EST Laboratory Appointment Lab at [facility] Hematology Oncology [address] [place] [phone] 11/09/2024 11:00 AM EST Office Visit Hematology [place] [phone] Faith Caba MD [facility] [address] [place] [address] 11/09/2024 12:00 PM EST Appointment Hematology [place] [phone] Scheduled Procedures Name Priority Associated Diagnoses Date/Ti me EGD, UPPER GI ENDOSCOPY (WRVU 2.09) Gastroesophageal reflux disease with esophagitis, unspecified whether hemorrhage 09/29/2024 4:30 PM EST documented as of this encounter Visit Diagnoses Not on filedocumented in this encounter Care Teams Clarification Operator Relationship Specialty Start Date End Date Kennedi Shaver MD [facility] [address] [place] [address] PCP - General 08/22/10 08/01/20 documented as of this encounter
--- OUTSIDE RECORDS SUMMARY | 2024-09-11 15:26 | XMS_ITS | Encounter Summary ---
Author Organization [facility] [place] [address] Care Team Providers Care Comparator Operator Name Role Phone Kennedi Shaver MD Primary Care Provider [phone] Reason for Visit * Reason Comments Follow-up Encounter Details Date Type Department Care Team (Late st Contact Info) Description 04/05/2020 10:00 AM EDT Office Visit Hematology [place] [address] Faith Caba MD [facility] DR HEMATOLOGY [place] [address] Neoplasm of prostate, distant metastasis staging category [...] Sign Reading Time Taken Comments Blood Pressure 153/87 04/05/2020 9:10 AM EDT Pulse 63 04/05/2020 9:10 AM EDT Temperature 36.9 ??C (98.4 ??F) 04/05/2020 9:10 AM ED T Respiratory Rate 18 04/05/2020 9:10 AM EDT Oxygen Saturation 99% 04/05/2020 9:10 AM EDT Inhaled Oxygen Concentration - - Weight 84.7 kg (186 lb 11.2 oz) 04/05/2020 9:10 AM EDT Height 179.6 cm (5' 10.71) 04/05/2020 9:10 AM E DT Body Mass Index 26.25 04/05/2020 9:10 AM EDT documented in this encounter Progress Notes * Faith Caba MD - 04/05/2020 10:00 AM EDT Images from the original note were not included. N [facility] HEM ONC [facility] [phone] ?? ONCOLOGY FOLLOW UP VISIT DIAGNOSIS: Metastatic [...] Carbone presents today for f/u. Overall doing well. 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 COnt to have fatigue and low energy. Noticing some m. Mass decrease. Usingmodafinil once in a while but admits this may be a self perpetuating situation. Denies ky somnolence. Denies pain. REVIEW OF SYSTEMS: As noted in HPI/Interval History; all other systems were reviewed and found to be negative. PAST MEDICAL HISTORY: 1. As above 2. GERD and Sol's esophagus S/p Alli Fundoplication 3. ELevated fasting glusoce 4. S/p distant appendectomy 5. S/p tonsilectomy MEDS: Medications 04/05/20 1030 Medication Sig Taking? leuprolide acetate (LUPRON DEPOT IM) Inject into the muscle. Once every 3 months, dosage unknown Yes ZYTIGA 500 mg Tablet TAKE 2 TABLETS [...] Reviewed - no change PHYSICAL EXAM: BP 153/87 (Patient Position: Sitting) Pulse 63 Temp 36.9 ??C (98.4 ??F) (Temporal) Resp 18 Ht 179.6 cm (5' 10.71) Wt 84.7 kg (186 lb 11.2 oz) SpO2 99% BMI 26.25 kg/m?? PS=0 Constitutional: Well appearing Eyes: Non-injected, anicteric. Resp: Effort normal, no resp distress RRR no murmur No spine tenderness LABS: CBC unremarkable (slight anemia), CMP wnl, PSA undetectable IMAGING STUDIES: No new ASSESSMENT AND PLAN: 74 y.o. M has metastatic prostate cancer with extensive disease involving nodes and bones. He is oncombination lupron+zytiga as first line therapy with very good clinical response. PSA remains undetectable. Main complaint remains fatigue. As discussed before, ADT may be playing a role decreasing stamina but I agree with his PCP in making sure he does not have a sleep disorder. Again discussed ways to conteract muscle mass loss etc from ADT (aerobic and strength activity). Will defer to [place] PCP for mgmt of what he is calling clarity of mind problem F/u in 3 months with labs clinic, des All Qns addressed. Knows to call with interim concerns. Faith Caba MD documented in this encounter Plan of Treatment Upcoming Encounters Date Type Department Care Team (Latest Contact Info) Description 09/29/2024 4:30 PM EST Hospital Encounter Gastroenterology at [place] [phone] Lizet Wilkes MD [facility] [place] [address] 09/29/2024 4:30 PM EST - 09/29/2024 5:00 PM EST Surgery Gastroenterology at [place] [phone] Lizet Wilkes MD [facility] [place] [address] EGD, UPPER GI ENDOSCOPY (WRVU 2.09) 11/09/2024 10:00 AM EST Laboratory Appointment Lab at [facility] Hematology Oncology [address] [place] [phone] 11/09/2024 11:00 AM EST Office Visit Hematology and Oncology at [place] [phone] Faith Caba MD [facility] [place] [address] 11/09/2024 12:00 PM EST Appointment Hematology and Oncology at [place] [phone] Scheduled Procedures Name Priority Associated Diagnoses Date/Ti [...] of this encounter Results * PSA (Ultrasensitive) (07/05/2020 8:58 AM EDT) [facility] Prostate Specific Antigen (Ultrasensitive ) [...] Caba MD CHEMISTRY ORDERABLES [facility] [place] [address] * Comprehensive metabolic panel (non-fasting) (07/05/2020 8:58 [...] of body mass or the acutely ill. [email or web address] eGFR 96 >=60 mL/min/1. 73 m?? [facility] Comment: The eGFR was calculated using the CKD-EPI equation. As with all creatinine based estimates of kidney function, eGFR values calculated with the CKD-EPI equation are not accurate in patients with acute kidney failure, extremes of body mass or the acutely ill. [email or web address] Blood specimen (specimen) 07/05/2020 8:58 AM EDT 07/05/2020 9:08 AM EDT Narrative Resulting Agency Comment Spec In Lab Faith Caba MD CHEMISTRY ORDERABLES [facility] [place] [address] * PSA (Ultrasensitive) (04/05/2020 8:55 AM EDT) Prostate Specific Antigen (Ultrasensitiv e) <0.01 0.00 - 4.00 ng/mL [facility] Blood specimen (specimen) 04/05/2020 8:55 AM EDT 04/05/2020 8:58 AM EDT Narrative Resulting Agency Comment Spec In Lab Deborah Hector TECHNOLOGY RECRUITER CHEMISTRY ORDERABL ES [facility] [place] [address] * Comprehensive metabolic panel (non-fasting) (04/05/2020 8:55 AM EDT) Glucose 105 65 - 199 mg/dL [facility] Comment:Diabetes: >=200 mg/d L plus symptoms Blood Urea Nitrogen 15 10 - 20 mg/dL [facility] Creatinine 0.89 0.80 - 1.50 mg/dL [facility] Sodium 142 135 - 145 mmol/L [facility] Potassium 4.0 3.5 - 5.0 mmol/L [facility] Comment: Please note: ??Patients with WBC >100,000 may have falsely elevated Potassium levels. ??For accurate Potassium quantification in these patients send serum separator tube (gold top) for subsequent determinations. ??Contact the Clinical Chemistry Laboratory if there are any questions. Chloride 105 98 - 107 mmol/L [facility] Carbon Dioxide 27 22 - 31 mmol/L [facility] Anion Gap 10 5 - 15 mmol/L [facility] Calcium 9.2 8.5 - 10.5 mg/dL [facility] Protein, Total 6.5 6.1 - 8.0 gm/dL [facility] Albumin 4.2 3.2 - 5.2 gm/dL [facility] Aspartate Aminotransferase 12 0 - 39 unit/L [facility] Alanine Aminotransferase 12 0 - 55 unit/L [facility] Alkaline Phosphatase 100 40 - 130 unit/L [facility] Bilirubin, Total 0.6 0.2 - 1.3 mg/dL [facility] Est Glomerular Filtration Rate 84 >=60 mL/min/1. 73 m?? [facility] Comment: The eGFR was calculated using the CKD-EPI equation. As with all creatinine based estimates of kidney function, eGFR values calculated with the CKD-EPI equation are not accurate in patients with acute kidney failure, extremes of body mass or the acutely ill. [email or web address]AM[facility] eGFR 97 >=60 mL/min/1. 73 m?? [facility] Comment: The eGFR was calculated using the CKD-EPI equation. As with all creatinine based estimates of kidney function, eGFR values calculated with the CKD-EPI equation are not accurate in patients with acute kidney failure, extremes of body mass or the acutely ill. [email or web address]AM[facility] Blood specimen (specimen) 04/05/2020 8:55 AM EDT 04/05/2020 8:58 AM EDT Narrative Resulting Agency Comment Spec In Lab Deborah Hector APRN CHEMISTRY ORDERABL ES [facility] [place] [address] documented in this encounter Visit Diagnoses Diagnosis Neoplasm of prostate, 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 Gastroesophageal reflux disease with esophagitis, unspecified whether hemorrhage documented in this encounter Care Teams Comparator Operator Relationship Specialty Start Date End Date Kennedi Shaver MD [address] [place] [address] PCP - General 08/22/10 08/01/20 documented as of this encounter
--- OUTSIDE RECORDS SUMMARY | 2024-09-11 15:26 | XMS_ITS | Encounter Summary ---
Author Organization [facility] [place] [address] Care Team Providers Care Hair Dresser Name Role Phone Kennedi Shaver MD Primary Care Provider [phone] Reason for Visit * Treatment/Therapy Plan Authorization (Routine) - Specialty Diagnoses / Procedures Referred By Blaine peralta Referred To Contact Diagnoses Neoplasm of prostate, 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 Procedures TC LEUPROLIDE ACETATE 7.5MG, FOR DEPOST SUSPENSION (LUPRON DEPOT) Faith Caba MD [facility] DR HEMATOLOGY [place] [address] [facility] Hem Onc [address] [place] [address] Referral ID Status Reason Start Date Expiration Date V isits Requested Visits Authorized [id number] 07/07/2018 08/09/2020 30 30 Encounter Details Date Type Department Care Team (Latest Contact Info) Description 07/05/2020 8:52 AM EDT - 07/05/2020 11:59 PM EDT Hospital Encounter [place]ology [place] [phone] Neoplasm of prostate, distant metastasis staging category [...] 12/05/2010 10/04/2020 documented as of this encounter Progress Notes * Stephanie Woodson RN - 07/05/2020 11:10 AM EDT Patient Name: Chidi Carbone Patient Age: 74 y.o. Birthdate: 1945 Admit date: 07/05/2020 Attending Physician: No att. providers found Access visit. See MAR and/or flowsheet.lupron given. Tolerated well. documented in this encounter Plan of Treatment Upcoming Encounters Date Type Department Care Team (Latest Contact Info) Description 09/29/2024 4:30 PM EST Hospital [place] [phone] Lizet Wilkes MD [facility] [place] [address] 09/29/2024 4:30 PM EST - 09/29/2024 5:00 PM EST Surgery Gastroenterology at [place] [phone] Lizet Wilkes MD [facility] [place] [address] EGD, UPPER GI ENDOSCOPY (WRVU 2.09) 11/09/2024 10:00 AM EST Laboratory Appointment Lab at [facility] [place] Oncology [address] [place], [place] [phone] 11/09/2024 11:00 AM EST Office Visit [place]ology [place] [phone] Faith Caba MD [facility] DR [place]EMATOLOGY [place] [address] 11/09/2024 12:00 PM EST Appointment Hematology and Oncology at [place] [phone] Scheduled Procedures Name Priority Associated Diagnoses Date/Ti [...] Dose Rate Site leuprolide (3 month) (Eligard) subcutaneous injection 22.5 mg 22.5 mg, Subcutaneous, ONCE, 1 dose, On Sat07/05/20 at 1100, Routine Given 07/05/2020 11:04 AM EDT 22.5 mg documented in this encounter Care Teams Hair Dresser Relationship Specialty Start Date End Date Kennedi Shaver MD [facility] [address] [place] [address] PCP - General 08/22/10 08/01/20 documented as of this encounter
--- OUTSIDE RECORDS SUMMARY | 2024-09-11 15:26 | XMS_ITS | Encounter Summary ---
[place] [address] Care Team Providers Care Veterans Contact Representative Name Role Phone Kennedi Shaver MD Primary Care Provider [phone] Encounter Details Date Type Department Care Team (Latest Contact Info) Description 10/06/2019 9:20 AM [facility] Hospital Encounter Hematology [place] [address] Neoplasm of prostate, distant metastasis staging category [...] 50 mg by mouth as needed. 06/14/2014 ZYTIGA 500 mg Tablet TAKE 2 TABLETS BY MOUTH EVERY DAY 60 tablet 11 05/25/2019 04/08/2020 tamsulosin (FLOMAX) 0.4 mg Capsule Take 0.4 [...] 4:30 PM EST Hospital Encounter [place] [address] Lizet Wilkes MD [facility] [place] [address] 09/29/2024 4:30 PM EST - 09/29/2024 5:00 PM EST Surgery [place] [phone] Lizet Wilkes MD [facility] [place] [address] EGD, UPPER GI ENDOSCOPY (WRVU 2.09) 11/09/2024 10:00 AM EST Laboratory Appointment Lab at [facility] Hematology Oncology [address] [place] [phone] 11/09/2024 11:00 AM EST Office Visit Hematology [place] [phone] Faith Caba MD [facility] [place] [address] 11/09/2024 12:00 PM EST Appointment Hematology [place] [phone] Scheduled Procedures Name Priority Associated Diagnoses Date/Ti ms EGD, UPPER GI ENDOSCOPY (WRVU 2.09) Gastroesophageal reflux disease with esophagitis, unspecified whether hemorrhage 09/29/2024 4:30 PM EST documented as of this encounter Procedures Procedure Name Priority Date/Time Associated Diagnosis Comments HEMOGRAM Routine 10/06/2019 9:35 AM EST Neoplasm of prostate, 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 DIFFERENTIAL, AUTOMATED Routine 10/06/2019 9:35 AM EST Neoplasm of prostate, 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 HC CBC,PLT & AUTO DIFF Routine 0 9:35 AM EST Neoplasm of prostate, 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 HC VENIPUNCTURE Routine 10/06/2019 9:35 AM EST Neoplasm of prostate, 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 COMPREHENSIVE METABOLIC PANEL Routine 10/06/2019 9:35 AM EST Neoplasm of prostate, 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 documented in this encounter Results * Differential, Automated (10/06/2019 9:35 AM EST) Neutrophil % 56.9 % [facility] Neutrophil Absolute 3.57 1.70 - 6.10 x10(3)/[facility] Lymph % 26.1 % [facility] Lymphocytes Abs 1.6 0.9 - 3.2 x10(3)/[facility] LAB[facility] Monocyte % 11.6 % [facility] Monocyte Abs 0.7 0.3 - 0.9 x10(3)/[facility] LABOR[facility]ORY Eos % 4.6 % [facility] Eosinophils Abs 0.3 0.0 - 0.4 x10(3)/[facility] Basophil % 0.5 % [facility] Baso Absolute 0.0 0.0 - 0.1 x10(3)/[facility] LABORATORY Immature Gran % 0.30 % [facility] Comment: Immature granulocytes(IG's)percentage and absolute count will include metamyelocytes, myelocytes, and promyelocytes. Blood smears from CBCs yielding IG's will be scanned manually for concordance. If this scan disagrees with the automated IG or if promyelocytes are noted, a manual differential will be performed. Immature Gran Absolute 0.02 0.00 - 0.04 x10(3)/[facility] LAB[facility] Blood specimen (specimen) 10/06/2019 9:35 AM EST 10/06/2019 9:57 AM EST Narrative Resulting Agency Comment Spec In Lab Faith Caba MD HEMATOLOGY ORDERABLE S [facility] [place] [address] * (ABNORMAL) Hemogram (10/06/2019 9:35 AM EST) White Blood Cell 6.3 4.0 - 9.5 x10(3)/[facility] LABORATORY Red Blood Cell 4.36(L) 4.58 - 5.54 x10(6)/mc L [facility] Hemoglobin 13.2(L) 13.7 - 16.5 gm/dL [facility] Hematocrit 40.4(L) 40.5 - 48.5 % [facility] Mean Cell Volume 92.7 82.9 - 93.1 fL [facility] Mean Cell Hemoglobin 30.3 27.5 - 32.1 pg [facility] Mean Cell Hemoglobin Concentration 32.7 32.0 - 35.7 gm/dL [facility] Platelet 235 145 - 357 x10(3)/mc L [facility] RDW Standard Deviation 44.0 36.0 - 45.0 fL [facility] RDW coefficient of variation 12.9 11.4 - 13.8 % [facility] Mean Platelet Volume 9.7 7.6 - 12.9 fL [facility] NRBC% auto 0.0 % [facility] NRBC Absolute 0.000 0.000 - 0.000 x10(3)/mc L [facility] Blood specimen (specimen) 10/06/2019 9:35 AM EST 10/06/2019 9:57 AM EST Narrative Resulting Agency Comment Spec In Lab Faith Caba MD HEMATOLOGY ORDERABLE S [facility] [place] [address] * Comprehensive metabolic panel (non-fasting) (10/06/2019 9:35 AM EST) Glucose 106 65 - 199 mg/dL [facility] Comment:Diabetes: >=200 mg/d L plus symptoms Blood Urea Nitrogen 19 10 - 20 mg/dL [facility] Creatinine 0.97 0.80 - 1.50 mg/dL [facility] Sodium 145 135 - 145 mmol/L [facility] Potassium 4.1 3.5 - 5.0 mmol/L [facility] [...] mmol/L [facility] Anion Gap 15 5 - 15 mmol/L [facility] Calcium 9.2 8.5 - 10.5 mg/dL [facility] Protein, Total 6.8 6.1 - 8.0 gm/dL [facility] Albumin 4.4 3.2 - 5.2 gm/dL [facility] Aspartate Aminotransferase 14 0 - 39 unit/L [facility] Alanine Aminotransferase 12 0 - 55 unit/L [facility] Alkaline Phosphatase 107 40 - 130 unit/L [facility] Bilirubin, Total 0.5 0.2 - 1.3 mg/dL [facility] Est Glomerular Filtration Rate 77 >=60 mL/min/1. 73 m?? [facility] Comment: The eGFR was calculated using the CKD-EPI equation. As with all creatinine based estimates of kidney function, eGFR values calculated with the CKD-EPI equation are not accurate in patients with acute kidney failure, extremes of body mass or the acutely ill. [email or web address]://[email or web address]/[facility] eGFR 89 >=60 mL/min/1. 73 m?? [facility] Comment: The eGFR was calculated using the CKD-EPI equation. As with all creatinine based estimates of kidney function, eGFR values calculated with the CKD-EPI equation are not accurate in patients with acute kidney failure, extremes of body mass or the acutely ill. [email or web address]://[email or web address]/[facility] Blood specimen (specimen) 10/06/2019 9:35 AM EST 10/06/2019 9:57 AM EST Narrative Resulting Agency Comment Spec In Lab Faith Caba MD CHEMISTRY ORDERABLES Performing Organization Address City/[facility] Co de Phone Number [facility] [place] [address] * PSA (Ultrasensitive) (10/06/2019 9:35 AM EST) Prostate Specific Antigen (Ultrasensitiv e) <0.01 0.00 - 4.00 ng/mL [facility] Blood specimen (specimen) 10/06/2019 9:35 AM EST 10/06/2019 9:57 AM EST Narrative Resulting Agency Comment Spec In Lab Faith Caba MD CHEMISTRY ORDERABLES Performing Organization Address City/[facility] Co de Phone Number [facility] [place] [address] documented in this encounter Visit Diagnoses Diagnosis Neoplasm of prostate, 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 Gastroesophageal reflux disease with esophagitis, unspecified whether hemorrhage documented in this encounter Care Teams Veterans Contact Representative Relationship Specialty Start Date End Date Kennedi Shaver MD [address] [facility] [address] [place] [address] PCP - General 08/22/10 08/01/20 documented as of this encounter
--- OUTSIDE RECORDS SUMMARY | 2024-09-11 15:26 | XMS_ITS | Encounter Summary ---
Author Organization [facility] Address [facility] [place] [address] Care Team Providers Care Clinical Rn Manager Name Role Phone Kennedi Shaver MD Primary Care Provider Encounter Details Date Type Department Care Team (Late st Contact Info) Description 08/04/2020 Notes Only Sleep Center at [address] [phone] Charlotte Euceda MD [facility] [place] [address] Social History Tobacco Use Types Packs/Day Years Used Date Smoking Tobacco: Former Cigarettes Smokeless Tobacco: Never Alcohol Use Standard Drinks/Week Comments Yes 14 (1 standard drink = 0.6 oz pu re alcohol) Sex and Gender Information Value Date Recorded Sex Assigned at Not on file Gender Identity Not on file Sexual Orientation Not on file documented as of this encounter Progress Notes * Charlotte Euceda MD - 08/04/2020 11:25 AM EST Spoke with Mr. Carbone by phone. He is hesitant to return for an attended CPAP sleep study - he is hesitant to come in for an in-lab study due to covid. He also felt uncomfortable generally, as he has a harder time having medical procedures done since being treated for cancer (although did not report that anything specific occurred). We discussed the reasoning for the in-lab titration recommendation, discussed central sleep apnea vs obstructive sleep apnea and discussed options. Given his concerns about an in-lab study, it would be acceptable to proceed with a trial of autoCPAP at this time. If there is evidence of persistent sleep apnea on autoPAP however, would then recommend an attended PAP study. He is agreeable with this plan. documented in this encounter Plan of Treatment Upcoming Encounters Date Type Department Care Team (Latest Contact Info) Description 09/29/2024 4:30 PM EST Hospital En[place] [address] Lizet Wilkes MD [facility] [place] [address] 09/29/2024 4:30 PM EST - 09/29/2024 5:00 PM EST [place] [phone] Lizet Wilkes MD [facility] [place] [address] EGD, UPPER GI ENDOSCOPY (WRVU 2.09) 11/09/2024 10:00 AM EST Laboratory Appointment Lab [place] [facility] [place] [address] [place] [phone] 11/09/2024 11:00 AM EST Office Visit Hematology [place] [phone] Faith Caba MD [facility] DR [place] [address] 11/09/2024 12:00 PM EST Appointment Hematology [place] [phone] Scheduled Procedures Name Priority Associated Diagnoses Date/Ti me EGD, UPPER GI ENDOSCOPY (WRVU 2.09) Gastroesophageal reflux disease with esophagitis, unspecified whether hemorrhage 09/29/2024 4:30 PM EST documented as of this encounter Goals Goal Patient Goal Type Associated Problems Recent Progress Patient-Stated? Author [facility] Medication Compliance and Understanding Patient Facing Action Plan Curly Nicolas, [facility] Note: The patient? s goal is to continue positive results of oral chemotherapy by maintaining improved labs PSA or stable scans in clinic for the upcoming year. documented as of this encounter Visit Diagnoses Not on filedocumented in this encounter Care Teams Clinical Rn Manager Relationship Specialty Start Date End Date Kennedi Shaver MD [address] [place] [address] PCP - General Family Medicine 08/02/20 06/24/24 documented as of this encounter
--- OUTSIDE RECORDS SUMMARY | 2024-09-11 15:26 | XMS_ITS | Encounter Summary ---
[place] [address] Care Team Providers Care Linemarker Name Role Phone Kennedi Shaver MD Primary Care Provider [phone] Encounter Details Date Type Department Care Team (Latest Contact Info) Description 01/05/2020 1:47 PM EDT Hospital Encounter Hematology [place] [address] Neoplasm of prostate, distant metastasis staging category [...] 4:30 PM EST Hospital Encounter [place] [phone] Lizet Wilkes MD [facility] [place] [address] 09/29/2024 4:30 PM EST - 09/29/2024 5:00 PM EST Surgery [place] [phone] Lizet Wilkes MD [facility] [place] [address] EGD, UPPER GI ENDOSCOPY (WRVU 2.09) 11/09/2024 10:00 AM EST Laboratory Appointment Lab at [facility] Hematology Oncology [address] [place] [phone] 11/09/2024 11:00 AM EST Office Visit Hematology [place] [phone] Faith Caba MD [facility] HEMATOLOGY [place] [address] 11/09/2024 12:00 PM EST Appointment Hematology [place] [phone] Scheduled Procedures Name Priority Associated Diagnoses Date/Ti mi EGD, UPPER GI ENDOSCOPY (WRVU 2.09) Gastroesophageal reflux disease with esophagitis, unspecified whether hemorrhage 09/29/2024 4:30 PM EST documented as of this encounter Procedures Procedure Name Priority Date/Time Associated Diagnosis Comments HEMOGRAM Routine 01/05/2020 1:56 PM EDT Neoplasm of prostate, 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 DIFFERENTIAL, AUTOMATED Routine 01/05/2020 1:56 PM EDT Neoplasm of prostate, 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 HC CBC,PLT & AUTO DIFF Routine 0 1:56 PM EDT Neoplasm of prostate, 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 HC PROSTATE SPECIFIC ANTIGEN Routine 01/05/2020 1:56 PM EDT Neoplasm of prostate, 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 COMPREHENSIVE METABOLIC PANEL Routine 01/05/2020 1:56 PM EDT Neoplasm of prostate, 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 documented in this encounter Results * Differential, Automated (01/05/2020 1:56 PM EDT) Neutrophil % 79.0 % [facility] Neutrophil Absolute 6.09 1.70 - 6.10 x10(3)/[facility] Lymph % 11.9 % [facility] Lymphocytes Abs 0.9 0.9 - 3.2 x10(3)/[facility] Monocyte % 7.3 % [facility] Monocyte Abs 0.6 0.3 - 0.9 x10(3)/[facility] Eos % 0.6 % [facility] Eosinophils Abs 0.0 0.0 - 0.4 x10(3)/[facility] Basophil % 0.8 % [facility] Baso Absolute 0.1 0.0 - 0.1 x10(3)/[facility] Immature Gran % 0.40 % [facility] Comment: Immature granulocytes(IG's)percentage and absolute count will include metamyelocytes, myelocytes, and promyelocytes. Blood smears from CBCs yielding IG's will be scanned manually for concordance. If this scan disagrees with the automated IG or if promyelocytes are noted, a manual differential will be performed. Immature Gran Absolute 0.03 0.00 - 0.04 x10(3)/[facility] Blood specimen (specimen) 01/05/2020 1:56 PM EDT 01/05/2020 2:08 PM EDT Narrative Resulting Agency Comment Spec In Lab Deborah Hector MUSIC ENGRAVER HEMATOLOGY ORDERAB LES Performing Organization Address City/State/[facility] Co de Phone Number [facility] [place] [address] * (ABNORMAL) Hemogram (01/05/2020 1:56 PM EDT) White Blood Cell 7.7 4.0 - 9.5 x10(3)/ L [facility] Red Blood Cell 4.56(L) 4.58 - 5.54 x10(6)/mc L [facility] Hemoglobin 13.6(L) 13.7 - 16.5 gm/dL [facility] Hematocrit 41.7 40.5 - 48.5 % [facility] Mean Cell Volume 91.4 82.9 - 93.1 fL [facility] Mean Cell Hemoglobin 29.8 27.5 - 32.1 pg [facility] Mean Cell Hemoglobin Concentration 32.6 32.0 - 35.7 gm/dL [facility] Platelet 244 145 - 357 x10(3)/mc L [facility] RDW Standard Deviation 42.6 36.0 - 45.0 fL [facility] RDW coefficient of variation 12.7 11.4 - 13.8 % [facility] Mean Platelet Volume 10.0 7.6 - 12.9 fL [facility] NRBC% auto 0.0 % [facility] NRBC Absolute 0.000 0.000 - 0.000 x10(3)/mc L [facility] Blood specimen (specimen) 01/05/2020 1:56 PM EDT 01/05/2020 2:08 PM EDT Narrative Resulting Agency Comment Spec In Lab Deborah Hector MUSIC ENGRAVER HEMATOLOGY ORDERAB LES [facility] [place] [address] * Comprehensive metabolic panel (non-fasting) (01/05/2020 1:56 PM EDT) Glucose 124 65 - 199 mg/dL [facility] Comment:Diabetes: >=200 mg/d L plus symptoms Blood Urea Nitrogen 18 10 - 20 mg/dL [facility] Creatinine 1.01 0.80 - 1.50 mg/dL [facility] Sodium 140 135 - 145 mmol/L [facility] Potassium 4.2 3.5 - 5.0 mmol/L [facility] Comment: Please note: ??Patients with WBC >100,000 may have falsely elevated Potassium levels. ??For accurate Potassium quantification in these patients send serum separator tube (gold top) for subsequent determinations. ??Contact the Clinical Chemistry Laboratory if there are any questions. Chloride 104 98 - 107 mmol/L [facility] Carbon Dioxide 23 22 - 31 mmol/L [facility] Anion Gap 13 5 - 15 mmol/L [facility] Calcium 9.4 8.5 - 10.5 mg/dL [facility] Protein, Total 6.7 6.1 - 8.0 gm/dL [facility] Albumin 4.3 3.2 - 5.2 gm/dL [facility] Aspartate Aminotransferase 14 0 - 39 unit/L [facility] Alanine Aminotransferase 10 0 - 55 unit/L [facility] Alkaline Phosphatase 117 40 - 130 unit/L [facility] Bilirubin, Total 0.5 0.2 - 1.3 mg/dL [facility] Est Glomerular Filtration Rate 72 >=60 mL/min/1. 73 m?? [facility] Comment: The eGFR was calculated using the CKD-EPI equation. As with all creatinine based estimates of kidney function, eGFR values calculated with the CKD-EPI equation are not accurate in patients with acute kidney failure, extremes of body mass or the acutely ill. [email or web address] eGFR 84 >=60 mL/min/1. 73 m?? [facility] Comment: The eGFR was calculated using the CKD-EPI equation. As with all creatinine based estimates of kidney function, eGFR values calculated with the CKD-EPI equation are not accurate in patients with acute kidney failure, extremes of body mass or the acutely ill. [email or web address]kf Blood specimen (specimen) 01/05/2020 1:56 PM EDT 01/05/2020 2:08 PM EDT Narrative Resulting Agency Comment Spec In Lab Deborah Hector APRN CHEMISTRY ORDERABL ES Performing Organization Address City/[facility]/ZIP Co de Phone Number [facility] [place] [address] * PSA (Ultrasensitive) (01/05/2020 1:56 PM EDT) Prostate Specific Antigen (Ultrasensitiv e) <0.01 0.00 - 4.00 ng/mL [facility] Blood specimen (specimen) 01/05/2020 1:56 PM EDT 01/05/2020 2:08 PM EDT Narrative Resulting Agency Comment Spec In Lab Deborah Hector APRN CHEMISTRY ORDERABL ES Performing Organization Address City/[facility]/ZIP Co de Phone Number [facility] [place] [address] documented in this encounter Visit Diagnoses Diagnosis Neoplasm of prostate, 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 Gastroesophageal reflux disease with esophagitis, unspecified whether hemorrhage documented in this encounter Care Teams Linemarker Relationship Specialty Start Date End Date Kennedi Shaver MD [address] [place] [address] PCP - General 08/22/10 08/01/20 documented as of this encounter
--- OUTSIDE RECORDS SUMMARY | 2024-09-11 15:26 | XMS_ITS | Encounter Summary ---
Author Organization [facility] [place] [address] Care Team Providers Care Financial Secretary Name Role Phone Kennedi Shaver MD Primary Care Provider [phone] Reason for Visit * Reason Comments Specialty Pharmacy Review Zytiga Encounter Details Date Type Department Care Team (Late st Contact Info) Description 07/05/2020 Specialty [place] [address] Curly Andres, [facility] Social History Tobacco Use Types Packs/Day Years Used Date Smoking Tobacco: Former Cigarettes Smokeless Tobacco: Never Alcohol Use Standard Drinks/Week Comments Yes 14 (1 standard drink = 0.6 oz pu re alcohol) Sex and Gender Information Value Date Recorded Sex Assigned at Not on file Gender Identity Not on file Sexual Orientation Not on file documented as of this encounter Progress Notes * Jane Booker - 07/05/2020 7:03 AM EDT The - Specialty Pharmacy has completed a benefits investigation for Chidi Patelsoraida to review their eligibility to fill at [facility]. Per patient's medication list they are prescribedZYTIGA and is able to be filled at the [facility]. Paid claim of $24.30 at pharmacy. Specialty can reach out to him about interest in filling here instead of [facility]. Next appt is 10/04/2020 documented in this encounter Plan of Treatment Upcoming Encounters Date Type Department Care Team (Latest Contact Info) Description 09/29/2024 4:30 PM EST Hospital En[place] [phone] Lizet Wilkes MD [facility] [place] [address] 09/29/2024 4:30 PM EST - 09/29/2024 5:00 PM EST [place] [phone] Lizet Wikles MD [facility] [place] [address] EGD, UPPER GI ENDOSCOPY (WRVU 2.09) 11/09/2024 10:00 AM EST Laboratory Appointment Lab at [facility] Hematology Oncology [address] [place] [phone] 11/09/2024 11:00 AM EST Office Visit [place] [phone] Faith Caba MD [facility] DR HEMATOLOGY [place] [address] 11/09/2024 12:00 PM EST Appointment Hematology [place] [phone] Scheduled Procedures Name Priority Associated Diagnoses Date/Ti me EGD, UPPER GI ENDOSCOPY (WRVU 2.09) Gastroesophageal reflux disease with esophagitis, unspecified whether hemorrhage 09/29/2024 4:30 PM EST documented as of this encounter Goals Goal Patient Goal Type Associated Problems Recent Progress Patient-Stated? Author DH Home Medication Compliance and Understanding Patient Facing Action Plan No Curly Andres, [facility] Note: The patient? s goal is to continue positive results of oral chemotherapy by maintaining improved labs PSA or stable scans in clinic for the upcoming year. documented as of this encounter Visit Diagnoses Not on filedocumented in this encounter Care Teams Financial Secretary Relationship Specialty Start Date End Date Kennedi Shaver MD [facility] [address] [facility] [address] [place] [address] PCP - General Family Medicine 08/02/20 06/24/24 documented as of this encounter
--- OUTSIDE RECORDS SUMMARY | 2024-09-11 15:26 | XMS_ITS | Encounter Summary ---
Author Organization [facility] [place] [address] Care Team Providers Care Design Studio Consultant Name Role Phone Kennedi Shaver MD Primary Care Provider [phone] Encounter Details Date Type Department Care Team (Late st Contact Info) Description 05/03/2020 Specialty [place] [address] Curly Andres [facility] Social History Tobacco Use Types Packs/Day [...] this encounter Progress Notes * Curly Andres RPH - 05/03/2020 10:43 AM EDT Clinical Management Plan: Medication management Specialty Pharmacy Consultation; Curly Andres RPH Comprehensive Medication Management (CMM) Chidi Lopez Karriemyranda Mr. Chidi Carbone is a 74 y.o. (1945) male diagnosed with prostate cancer that has been on treatment with Zytiga since April 2017. The patient and has been filling his prescription with [facility] since that time. I called and spoke with the patient today to discuss his treatment with Zytiga and provide information about the Specialty Pharmacy. Chidi states that he has been feeling fatigued over the last month, frequently taking a nap in themorning and afternoon. He has been taking a brisk walk in the morning and walks up 3 flights of stairs to try to combat the fatigue. He will be having a sleep study at [facility] today to determine if he has sleep apnea. He reports continued joint/muscle pain that he stated he has been treating with ibuprofen as needed. I had previously spoken with Chidi about filling is Zytiga with the Specialty pharmacy at and he had requested the transfer of care of our pharmacy. In speaking with Chidi today, he would like to remain with [facility] as he reports no issues with them at this time. I provided the patient with my contact information and asked him to reach out with any questions or concerns. Was a change made to the Care Plan: no If yes, should the medication be held: No Curly Andres RPH 05/03/20 10:44 AM documented in this encounter Plan of Treatment Upcoming Encounters Date Type Department Care Team (Latest Contact Info) Description 09/29/2024 4:30 PM EST Hospital Encounter [place] [address] Lizet Wilkes MD [facility] [place] [address] 09/29/2024 4:30 PM EST - 09/29/2024 5:00 PM EST [place] [address] Lizet Wilkes MD [facility] [place] [address] EGD, UPPER GI ENDOSCOPY (WRVU 2.09) 11/09/2024 10:00 AM EST Laboratory Appointment Lab at [facility] Hematology Oncology [address] [place] [phone] 11/09/2024 11:00 AM EST Office Visit Hematology [place] [phone] Faith Caba MD [facility] DR HEMATOLOGY [place] [address] 11/09/2024 12:00 PM EST Appointment Hematology [place] [address] Scheduled Procedures Name Priority Associated Diagnoses Date/Ti me EGD, UPPER GI ENDOSCOPY (WRVU 2.09) Gastroesophageal reflux disease with esophagitis, unspecified whether hemorrhage 09/29/2024 4:30 PM EST documented as of this encounter Goals Goal Patient Goal Type Associated Problems Recent Progress Patient-Stated? Author [facility] Medication Compliance and Understanding Patient Facing Action Plan Curly Nicolas, [facility] Note: The patient? s goal is to continue positive results of oral chemotherapy by maintaining improved labs PSA or stable scans in clinic for the upcoming year. documented as of this encounter Visit Diagnoses Not on filedocumented in this encounter Care Teams Design Studio Consultant Relationship Specialty Start Date End Date Kennedi Shaver MD [address] [place] [address] PCP - General 08/22/10 08/01/20 documented as of this encounter
--- OUTSIDE RECORDS SUMMARY | 2024-09-11 15:26 | XMS_ITS | Encounter Summary ---
Author Organization [facility] Address [facility] [place] [address] Care Team Providers Care Glassware Verifier Name Role Phone Kennedi Shaver MD Primary Care Provider [phone] Encounter Details Date Type Department Care Team (Late st Contact Info) Description 04/08/2020 Orders [place] [phone] Curly Andres, [facility] Social History Tobacco Use Types Packs/Day Years [...] (Latest Contact Info) Description 09/29/2024 4:30 PM [facility] Hospital Encounter [place] [phone] Lizet Wilkes MD [facility] [place] [address] 09/29/2024 4:30 PM EST - 09/29/2024 5:00 PM EST Surgery Gastroenterology at [place] [phone] Lizet Wilkes MD [facility] [place] [address] EGD, UPPER GI ENDOSCOPY (WRVU 2.09) 11/09/2024 10:00 AM EST Laboratory Appointment Lab at [facility] [place]ematology Oncology [address] [place] [phone] 11/09/2024 11:00 AM EST Office Visit Hematology and Oncology at [place] [phone] Faith Caba MD [facility] DR HEMATOLOGY [place] [address] 11/09/2024 12:00 PM EST Appointment Hematology [place] [phone] Scheduled Procedures Name Priority Associated Diagnoses Date/Ti me EGD, UPPER GI ENDOSCOPY (WRVU 2.09) Gastroesophageal reflux disease with esophagitis, unspecified whether hemorrhage 09/29/2024 4:30 PM EST documented as of this encounter Goals Goal Patient Goal Type Associated Problems Recent Progress Patient-Stated? Author DH [place] Medication Compliance and Understanding Patient Facing Action Plan Curly Nicolas, [facility] Note: The patient? s goal is to continue positive results of oral chemotherapy by maintaining improved labs PSA or stable scans in clinic for the upcoming year. documented as of this encounter Visit Diagnoses Not on filedocumented in this encounter Care Teams Glassware Verifier Relationship Specialty Start Date End Date Kennedi Shaver MD [address] [place] [address] PCP - General 08/22/10 08/01/20 documented as of this encounter
--- OUTSIDE RECORDS SUMMARY | 2024-09-11 15:26 | XMS_ITS | Encounter Summary ---
Author Organization [facility] Address [facility] [place] [address] Care Team Providers Care Online Producer Name Role Phone Kennedi Shaver MD Primary Care Provider Reason for Visit * Consultation (Routine) - Closed Specialty Diagnoses / Procedures Referred By Blaine peralta Referred To Contact Sleep Center Diagnoses Snoring Procedures PRG POLYSOM 6+ YRS SLEEP W 4+ ADDL LAURA ATTCharlotte Quiroz MD [facility] [place] [address] [facility] Sleep Medicine [address] [place] [address] Referral ID Status Reason Start Date Expiration Date V isits Requested Visits Authorized [id number] Closed Test Only 03/14/2020 03/14/2021 1 1 Encounter Details Date Type Department Care Team (Late st Contact Info) Description 05/03/2020 7:30 PM EDT Procedure visit Sleep Center at [facility] [address] [place] [address] Julissa Padilla MD [facility] [place] [address] GIRISH (obstructive sleep apnea) Social History Tobacco [...] Sign Reading Time Taken Comments Blood Pressure 174/80 05/03/2020 7:17 PM EDT Pulse 58 05/03/2020 7:17 PM EDT Temperature 36.9 ??C (98.4 ??F) 05/03/2020 7:17 PM ED T Respiratory Rate - - Oxygen Saturation 97% 05/03/2020 7:17 PM EDT Inhaled Oxygen Concentration - - Weight 87.2 kg (192 lb 3.2 oz) 05/03/2020 7:17 P M EDT Height 180.3 cm (5' 11) 05/03/2020 7:17 PM EDT Body Mass Index 26.81 05/03/2020 7:17 PM EDT documented in this encounter Progress Notes * Julissa Padilla MD - 05/03/2020 7:30 PM EDT Images from the original note were not included. Overnight Polysomnogram Report History Of Present Illness: Chidi Carbone is a 74 yo who presents for an diagnostic PSG in the setting of reported fatigue, poor concentration, need for naps, insomnia symptoms controlled with useof ambien. Polysomnography: The patient's sleep was evaluated for one night at the Sleep [facility] Center. Sleep was monitored in accordance with recommended AASM guidelines. The recording also included oral/nasal airflow, chest and abdominal respiratory effort, nasal pressure, single channel EKG, intercostalEMG, bilateral tibialis EMG, and oxygen saturation (by pulse oximeter). Report - Sleep/EEG: Baseline respiratory monitoring was performed from 21:57 to 4:32 yielding a total sleep time of 214 min with N1, N2, and N3 sleep seen. No REM sleep was noted. He spent 29% of the time sleeping supine. Sleep was fragmented with a markedly reduced sleep efficiency of 54%. - Respiratory: Obstructive sleep apnea of a severe degree [...] at or below 88%. Snoring was observed. - EKG: Normal sinus rhythm with rare PVC's, mean rate 52 bpm.. - EMG: Unremarkable. - COMMENTS: Head of bed: flat with 1 pillow Post study questionnaire: The patient reported sleeping slightly worse and feeling average on the morning after testing.The wires made him feel trapped (but he just got over it) He took zolpidem 10mg prior to the test. Technical quality of the study: good Assessment: Chidi Carbone is a 74 yo male who presents with a history of snoring and poor concentration and fatigue in the day. On this night of testing, prominent central apneas were noted at thesleep wake transition, but then with sleep, evidence of obstructive sleep apnea was noted. The overall AHI was 53/hr with a CMS AHI of 20/hr. Events were more frequent and more likely to be associated with cyclic oxygen desaturations while supine. No REM sleep was seen which may underestimate the overall severe of GIRISH. The minimum SpO2 was 85%, mean 93% and minimal time spent at or below 88%. Snoring was noted. EKG showed normal sinus rhythm. No motor disorder was identified. Recommendations: Given the findings of this night and his reported symptoms, treatment for sleep disordered breathing is recommended. CPAP is the recommended primary modality of treatment. Alternative options are less favored and include an oral appliance or surgery. Conservative strategies may be of additional benefit and include weight loss, avoiding the supine position, treatment of nasal congestion, and avoiding sedatives prior to bed. Given the tendency for sleep onset central apneas, it may be best to do a formal in lab PAP titration study to best assess his response. He previously expressed concerns about tolerance to PAP therapy. A CPAP demonstration session/mask fitting could be con sidered to help determine his tolerance prior to proceeding. * I will send Mr. Ghosh a letter with results. I will hold off placing a referral of an in lab titration study until better understanding if he would like to proceed with a visit first. Julissa Padilla MD [facility] Sleep Disorders Center REPORT of Diagnostic Polysomnography Patient Name: Chidi Carbone Study Date: 05/03/2020 Age & Sex: 74 y.o. Male Height: 5'11 Date of : 1945 Weight: 192.2 lbs BMI: 26.8 Referring Provider: Recording Technologist: MULU RODRIGUEZ Scoring Technologist: ALOK CYR Sleep Fellow: Sleep Specialist: Scoring Technologist Comments: ECG: Sinus Ectopy: PVCs Description of Study: Diagnostic polysomnography was performed utilizing frontal, central & occipital EEG, EOG, submentalis EMG, oronasal thermocouple, nasal pressure, ECG, thoracic and abdominalinductance plethysmography, right and left anterior tibialis EMG, snore sensor, and pulse oximetry according to AASM established guidelines. Study Details & Sleep Architecture Diagnostic Start Time (Lights Off): 21:57:28 Total Recording Time: 395.5 min Diagnostic End Time (Lights On): 04:32:58 Total Sleep Time (minutes): 214.5 Total Num. of Stage Shifts: 186 Total Sleep Time (hrs:min): 3:34.5 Total Num. of Awakenings: 32 Sleep Onset Latency: 27.5 min Total Num. of Trans. to N1: 84 Sleep Efficiency: 54.2% Total Num. of REM Periods: 0 Stage Results: Time (minutes) %TST Latency (minutes) WASO: 153.5 - - N1: 116.5 54.3 0.0 N2: 84.5 39.4 7.0 N3: 13.5 6.3 188.5 REM: 0.0 0.0 - - (minus wake) Arousal Counts: NREM REM Total Spontaneous: 32 (9.0/hr) 0 (-/hr) 32 (9.0/hr) Sum of All Arousals: 212 (59.3/hr) 0 (-/hr) 212 (59.3/hr) Spontaneous arousals include only EEG arousals not associated with a respiratory event or PLM. Body Position: Supine Non-Supine Non-REM: 62.0 min 152.5 min REM: 0.0 min 0.0 min Total Sleep: 62.0 min (28.9%) 152.5 min (71.1%) Respiratory Events Apneas Obstructive Mixed Central Total Apneas Total Count: 2 16 12 30 Mean Duration (sec): 14 25 18 21 Longest Duration (sec): 14.6 31.8 23.7 32 Index (REM/NREM): 0.0 / 0.6 0.0 / 4.5 0.0 / 3.4 0.0/ 8.4 Index (Sup./Non-Sup.): 1.0 / 0.4 15.5 / 0.0 11.6 / 0.0 28.1/ 0.4 Index (Total): 0.6 4.5 3.4 8.4 Hypopneas & RERAs Hypopnea Definitions: Hypopnea* CMS Hypopnea AAS Central Hypopneas Hypopneas All RERA Total Count: 41 159 0 159 0 Mean Duration (sec): 22.2 19.9 0.0 20 0 Longest Duration (sec): 37.0 37.0 0.0 37 0 Index (REM/NREM): -/11.5 -/42.8 0.0 / 0.0 0.0/ 44.5 - 0.0 Index (Sup./Non-Sup.): 17.4 / 9.0 31.9/ 47.2 0.0 / 0.0 33.9/ 48.8 0.0 / 0.0 Index (Total): 11.5 42.8 0.0 44.5 0.0 *CMS-defined hypopneas include only hypopneas with a >=4% oxygen desaturation. Includes hypopneas with an arousal or with a 3%-4% desaturation. Periodic Breathing Total Sleep Time Time (minutes) 0.0 Time (%Sleep Time) 0.0 AHI: Includes all apneas & all hypopneas associated with an arousal or a >= 3% desaturation. Supine Non-Sup. REM NREM Total Count: 64 125 0 189 189 Index (events/hr): 61.9 49.2 0.0 52.9 AHI = 52.9 [facility] AHI: Includes all apneas & only hypopneas associated with a >= 4% desaturation. Supine Non-Sup. REM NREM Total Count: 47 24 0 71 71 Index (events/hr): 45.5 9.4 0 19.9 CMS = 19.9 Obstructive AHI: Includes obstructive & mixed apneas as well as all hypopneas. Excludes centralapneas and RERAs. Supine Non-Sup. REM NREM Total Count: 52 125 0 177 177 Index (events/hr): 50.3 49.2 0.0 49.5 OAHI = 49.5 RDI: Includes all apneas, all hypopneas, all RERAs, and all ???Unsure??? events. Supine Non-Sup. REM NREM Total Count: 64 125 0.0 189.1 189 Index (events/hr): 61.9 49.2 0.0 52.9 RDI = 52.9 Oxygen Saturation Details SpO2 Awake NREM REM All Sleep ANDIE Report Sleep Mean: 94% 93% -% 93% 3% ANDIE 20.3 36.1 Minimum: - 85% -% 85% 4% ANDIE 13.8 24.1 SpO2 Awake (minutes) NREM (minutes) REM (minutes) All Sleep (minutes) <=90% 6.8 22.1 0.0 22.1 <=89% 3.6 9.0 0.0 9.0 <=88% 1.7 4.0 0.0 4.0 90-99% 141.0 191.2 0.0 191.2 80-89.9% 3.6 9.0 0.0 9.0 79-79.9% 0.0 0.0 0.0 0.0 60-69.9% 0.0 0.0 0.0 0.0 50-59.9% 0.0 0.0 0.0 0.0 <=50% 0.0 0.0 0.0 0.0 Cardiac Details Heart Rate (bpm) Total Study NREM REM All Sleep Minimum - 43 - 43 Maximum 98 75 - 75 Mean - 52 0 52 Limb Movement Details Periodic Limb Movements Total PLMs (and Index) PLMs w/ Arousals (and Index) Wake (after ???Lights Off???): 0 (0.0/hr) 0 (0.0/hr) NREM: 4 (1.1/hr) 2 (0.6/hr) REM: 0 (0.0/hr) 0 (-/hr) Total Sleep: 4 (1.1/hr) 2 (0.6/hr) Graphs PLMs Body Position Supplemental Oxygen documented in this encounter Plan of Treatment Upcoming Encounters Date Type Department Care Team (Latest Contact Info) Description 09/29/2024 4:30 PM EST Hospital Encounter [place] [phone] Lizet Wilkes MD [facility] [place] [address] 09/29/2024 4:30 PM EST - 09/29/2024 5:00 PM EST Surgery [place] [phone] Lizet Wilkes MD [facility] [place] [address] EGD, UPPER GI ENDOSCOPY (WRVU 2.09) 11/09/2024 10:00 AM EST Laboratory Appointment Lab at [facility] Hematology Oncology [address] [place] [phone] 11/09/2024 11:00 AM EST Office Visit Hematology [place] [phone] Faith Caba MD [facility] DR [place] [address] 11/09/2024 12:00 PM EST Appointment Hematology [place] [phone] Scheduled Procedures Name Priority Associated Diagnoses Date/Ti me EGD, UPPER GI ENDOSCOPY (WRVU 2.09) Gastroesophageal reflux disease with esophagitis, unspecified whether hemorrhage 09/29/2024 4:30 PM EST Scheduled Referrals Name Type Priority Associated Diagnoses Orde r Schedule Referral to Sleep Disorders Center Outpatient Referral Routine Snoring Ordered: 03/14/2020 documented as of this encounter Goals Goal [...] hemorrhage documented in this encounter Care Teams Online Producer Relationship Specialty Start Date End Date Kennedi Shaver MD [address] [place] [address] PCP - General 08/22/10 08/01/20 documented as of this encounter
--- OUTSIDE RECORDS SUMMARY | 2024-09-11 15:26 | XMS_ITS | Encounter Summary ---
[place] [address] Care Team Providers Care Photoengraving Machine Operator/Tender Name Role Phone Kennedi Shaver MD Primary Care Provider [phone] Encounter Details Date Type Department Care Team (Late st Contact Info) Description 11/14/2019 Telephone Hematology [place] [address] Reny Jj MD [facility] DR HEMATOLOGY/[place] [address] Social History Tobacco Use Types Packs/Day Years [...] encounter Miscellaneous Notes * Telephone Encounter - Reny Jj MD - 11/14/2019 11:14 AM EST Received a call from Mr. Carbone concerned that he may have taken an extra dose of his Xytiga today- though not sure. He is wondering what to do. Given uncertainty - it is reasonable to monitor for now. Advised him to avoid tomorrow's dose and restart normal Xytiga 1000mg once daily on Saturday. He knows to call with any concerning symptoms (chest pain, SOB, abd pain, N/V, diarrhea) or otherwise. Follow up with Dr. Caba as previously scheduled. CC: Dr. Gertrudis Jj MD Hematology/Oncology Fellow Pager #[phone] 11/14/19 documented in this encounter Plan of Treatment Upcoming Encounters Date Type Department Care Team (Latest Contact Info) Description 09/29/2024 4:30 PM EST Hospital Encounter Gastroenterology at [place] [phone] Lizet Wilkes MD [facility] [place] [address] 09/29/2024 4:30 PM EST - 09/29/2024 5:00 PM EST Surgery [place] [phone] Lizet Wilkes MD [facility] [place] [address] EGD, UPPER GI ENDOSCOPY (WRVU 2.09) 11/09/2024 10:00 AM EST Laboratory Appointment Lab at [facility] Hematology Oncology [address] [place] [phone] 11/09/2024 11:00 AM EST Office Visit Hematology and Oncology at [place] [phone] Faith Caba MD [facility] DR HEMATOLOGY [place] [address] 11/09/2024 12:00 PM EST Appointment Hematology [place] [address] Scheduled Procedures Name Priority Associated Diagnoses Date/Ti me EGD, UPPER GI ENDOSCOPY (WRVU 2.09) Gastroesophageal reflux disease with esophagitis, unspecified whether hemorrhage 09/29/2024 4:30 PM EST documented as of this encounter Visit Diagnoses Not on filedocumented in this encounter Care Teams Photoengraving Machine Operator/Tender Relationship Specialty Start Date End Date Kennedi Shaver MD [facility] [address] [place] [address] PCP - General 08/22/10 08/01/20 documented as of this encounter
--- OUTSIDE RECORDS SUMMARY | 2024-09-11 15:26 | XMS_ITS | Encounter Summary ---
Author Organization [facility] Address [facility] [place] [address] Care Team Providers Care Senior Test Analyst Name Role Phone Kennedi Shaver MD Primary Care Provider [phone] Encounter Details Date Type Department Care Team (Late st Contact Info) Description 08/04/2020 Orders Only Sleep Center at [address] [phone] Charlotte Euceda MD [facility] [place] [address] GIRISH (obstructive sleep apnea) Social History Tobacco [...] (Latest Contact Info) Description 09/29/2024 4:30 PM [facility] Hospital En[place] [address] Lizet Wilkes MD [facility] [address] 09/29/2024 4:30 PM EST - 09/29/2024 5:00 PM EST Surgery Gastroenterology at [place] [phone] Lizet Wilkes MD [facility] [address] EGD, UPPER GI ENDOSCOPY (WRVU 2.09) 11/09/2024 10:00 AM EST Laboratory Appointment Lab at [facility] Hematology Oncology [address] [place] [address] 11/09/2024 11:00 AM EST Office Visit Hematology [place] [phone] Faith Caba MD [facility] [place] [address] 11/09/2024 12:00 PM EST Appointment Hematology [place] [phone] Scheduled Procedures Name Priority Associated Diagnoses Date/Ti [...] documented in this encounter Care Teams Senior Test Analyst Relationship Specialty Start Date End Date Kennedi Shaver MD [address] [place] [address] PCP - General Family Medicine 08/02/20 06/24/24 documented as of this encounter
--- OUTSIDE RECORDS SUMMARY | 2024-09-11 15:26 | XMS_ITS | Encounter Summary ---
Author Organization [facility] [place] [address] Care Team Providers Care Molder Automobile Carpets Name Role Phone Kennedi Shaver MD Primary Care Provider [phone] Encounter Details Date Type Department Care Team (Latest Contact Info) Description 10/04/2020 9:10 AM EST - 10/04/2020 9:11 AM [facility] Hospital Encounter Hematology [place] [address] Prostate cancer metastatic to multiple sites Discharge [...] 4:30 PM EST Hospital Encounter [place] [phone] Lizet Wilkes MD [facility] [place] [address] 09/29/2024 4:30 PM EST - 09/29/2024 5:00 PM EST Surgery [place] [phone] Lizet Wilkes MD [facility] [place] [address] EGD, UPPER GI ENDOSCOPY (WRVU 2.09) 11/09/2024 10:00 AM EST Laboratory Appointment Lab at [facility] Hematology Oncology [address] [place] [phone] 11/09/2024 11:00 AM EST Office Visit Hematology [place] [phone] Faith Caba MD [facility] [address] [place] [address] 11/09/2024 12:00 PM EST Appointment Hematology [place] [phone] Scheduled Procedures Name Priority Associated Diagnoses Date/Ti me EGD, UPPER GI ENDOSCOPY (WRVU 2.09) Gastroesophageal reflux disease with esophagitis, unspecified whether hemorrhage 09/29/2024 4:30 PM EST documented as of this encounter Goals Goal Patient Goal Type Associated Problems Recent Progress Patient-Stated? Author [facility] Medication Compliance and Understanding Patient Facing Action Plan Curly Nicolas, [facility] Note: The patient? s goal is to continue positive results of oral chemotherapy by maintaining improved labs PSA or stable scans in clinic for the upcoming year. documented as of this encounter Procedures Procedure Name Priority Date/Time Associated Diagnosis Comments HEMOGRAM Routine 10/04/2020 9:33 AM EST Prostate cancer metastatic to multiple sites DIFFERENTIAL, AUTOMATED Routine 10/04/2020 9:33 AM EST Prostate cancer metastatic to multiple sites HC CBC,PLT & AUTO DIFF Routine 10/04/2020 9:33 AM EST Prostate cancer metastatic to multiple sites HC PROSTATE SPECIFIC ANTIGEN Routine 10/04/2020 9:33 AM EST Prostate cancer metastatic to multiple sites HC VENIPUNCTURE Routine 10/04/2020 9:33 AM EST Prostate cancer metastatic to multiple sites documented in this encounter Results * (ABNORMAL) Differential, Automated (10/04/2020 9:33 AM EST) Neutrophil % 75.9 % [facility] Neutrophil Absolute 7.30(H) 1.70 - 6.10 x10(3)/mc L [facility] Lymph % 12.9 % [facility] Lymphocytes Abs 1.2 0.9 - 3.2 x10(3)/mc L [facility] Monocyte % 9.3 % [facility] Monocyte Abs 0.9 0.3 - 0.9 x10(3)/mc L [facility] Eos % 1.1 % [facility] Eosinophils Abs 0.1 0.0 - 0.4 x10(3)/[facility] Basophil % 0.4 % [facility] Baso Absolute 0.0 0.0 - 0.1 x10(3)/[facility] Immature Gran % 0.40 % [facility] Comment: Immature granulocytes(IG's)percentage and absolute count will include metamyelocytes, myelocytes, and promyelocytes. Blood smears from CBCs yielding IG's will be scanned manually for concordance. If this scan disagrees with the automated IG or if promyelocytes are noted, a manual differential will be performed. Immature Gran Absolute 0.04 0.00 - 0.04 x10(3)/[facility] Blood specimen (specimen) 10/04/2020 9:33 AM EST 10/04/2020 10:00 AM EST Narrative Resulting Agency Comment Spec In Lab Deborah Hector CASE MANAGER HEMATOLOGY ORDERAB LES [facility] [place] [address] * (ABNORMAL) Hemogram (10/04/2020 9:33 AM EST) White Blood Cell 9.6(H) 4.0 - 9.5 x10(3)/[facility] Red Blood Cell 4.18(L) 4.58 - 5.54 x10(6)/[facility] Hemoglobin 12.9(L) 13.7 - 16.5 gm/dL [facility] Hematocrit 38.1(L) 40.5 - 48.5 % [facility] Mean Cell Volume 91.1 82.9 - 93.1 fL [facility] Mean Cell Hemoglobin 30.9 27.5 - 32.1 pg [facility] Mean Cell Hemoglobin Concentration 33.9 32.0 - 35.7 gm/dL [facility] Platelet 237 145 - 357 x10(3)/mc L [facility] RDW Standard Deviation 42.2 36.0 - 45.0 fL [facility] RDW coefficient of variation 12.7 11.4 - 13.8 % [facility] Mean Platelet Volume 9.8 7.6 - 12.9 fL [facility] NRBC% auto 0.0 % [facility] NRBC Absolute 0.000 0.000 - 0.000 x10(3)/mc L [facility] Blood specimen (specimen) 10/04/2020 9:33 AM EST 10/04/2020 10:00 AM EST Narrative Resulting Agency Comment Spec In Lab Deborah Hector APRN HEMATOLOGY ORDERAB LES Performing Organization Address [facility] Co de Phone Number [facility] [place] [address] * PSA (Ultrasensitive) (10/04/2020 9:33 AM EST) Prostate Specific Antigen (Ultrasensitive ) <0.01 0.00 - 4.00 ng/mL [facility] Comment: PLEASE NOTE: The above reference interval is intended for healthy males with an intact prostate. Values within this reference interval may indicate recurrence in men who have undergone radical prostatectomy. Blood specimen (specimen) 10/04/2020 9:33 AM EST 10/04/2020 10:00 AM EST Narrative Resulting Agency Comment Spec In Lab Deborah Hector CASE MANAGER CHEMISTRY ORDERABL ES Performing Organization Address [facility] Co de Phone Number [facility] [place] [address] * Comprehensive metabolic panel (non-fasting) (10/04/2020 9:33 AM EST) Glucose 105 65 - 199 mg/dL [facility] Comment:Diabetes: >=200 mg/d L plus symptoms Blood Urea Nitrogen 16 10 - 20 mg/dL [facility] Creatinine 0.87 0.80 - 1.50 mg/dL [facility] Sodium 141 135 - 145 mmol/L [facility] Potassium 3.9 3.5 - 5.0 mmol/L [facility] Comment: Please note: ??Patients with WBC >100,000 may have falsely elevated Potassium levels. ??For accurate Potassium quantification in these patients send serum separator tube (gold top) for subsequent determinations. ??Contact the Clinical Chemistry Laboratory if there are any questions. Chloride 103 98 - 107 mmol/L [facility] Carbon Dioxide 24 22 - 31 mmol/L [facility] Anion Gap 14 5 - 15 mmol/L [facility] Calcium 9.2 8.5 - 10.5 mg/dL [facility] Protein, Total 6.6 6.1 - 8.0 gm/dL [facility] Albumin 4.4 3.2 - 5.2 gm/dL [facility] Aspartate Aminotransferase 17 0 - 39 unit/L [facility] Alanine Aminotransferase 12 0 - 55 unit/L [facility] Alkaline Phosphatase 106 40 - 130 unit/L [facility] Bilirubin, Total 1.0 0.2 - 1.3 mg/dL [facility] Est Glomerular Filtration Rate 84 >=60 mL/min/1. 73 m?? [facility] Comment: This patient? s estimated [...] Agency Comment Spec In Lab Deborah Hector CASE MANAGER CHEMISTRY ORDERABL ES Performing Organization Address City/State/[facility] Co de Phone Number [facility] [place] [address] documented in this encounter Visit Diagnoses Diagnosis Prostate cancer metastatic to multiple sites Malignant neoplasm of prostate Gastroesophageal reflux disease with esophagitis, unspecified whether hemorrhage documented in this encounter Care Teams Molder Automobile Carpets Relationship Specialty Start Date End Date Kennedi Shaver MD [address] [place] [address] PCP - General Family Medicine 08/02/20 06/24/24 documented as of this encounter
--- OUTSIDE RECORDS SUMMARY | 2024-09-11 15:26 | XMS_ITS | Encounter Summary ---
Author Organization [facility] Address [facility] [place] [address] Care Team Providers Care Rn Discharge Name Role Phone Kennedi Shaver MD Primary Care Provider [phone] Reason for Visit * Reason Comments Obstructive Sleep Apnea Encounter Details Date Type Department Care Team (Late st Contact Info) Description 08/02/2020 1:00 PM EST Office Visit Sleep Center at [facility] [address] [place] [address] Cassy Ceron, RT [facility] (obstructive sleep apnea) Social [...] as of this encounter Progress Notes * Cassy Ceron, - 08/02/2020 1:00 PM EST Sleep Medicine Clinical Health Specialist Desensitization/Mask Fit Clinic note: HPI: Mr. Chidi Carbone is a 74 y.o. male seen for follow-up of obstructive sleep apnea. Mr. Carbone does not currently have CPAP. The visit today was for PAP desensitization and mask fit. Patient is interested in a nasal interface. Interface (s) used: Air Fit P10 size large- difficulty exhaling Air fit P30i size medium with standard frame- liked this, good fit. PAP pressures used: CPAP 4-6 cm H20, Cflex 2-3 PAP equipment/interfaces reviewed: Assembly of the Air fit P30i. Cleaning of PAP equipment. [facility], follow up Patient Response: Mr. Carbone prefers the Air Fit P30i size medium pillow, standard frame. He is interested in Auto PAP. He prefers not to come in the lab for a titration study. He prefers to try the PAP at home. He would like to use a [facility] near [place], [place] or near [place] if there is not one closer to him. Physical Exam: DERM: Skin: no mask trauma Time spent face to face: 45Min. Reccomendations: 1) Sample P30i standard frame , medium cushion was provided. (For when pt has PAP) 2) Follow-up: To be determined by Dr. Charlotte Euceda following discussion with Mr. Carbone The patient indicates understanding of these issues and agrees with the plan. Case was discussed with Dr. Euceda who will discuss in lab titration versus Auto PAP with the patient. documented in this encounter Plan of Treatment Upcoming Encounters Date Type Department Care Team (Latest Contact Info) Description 09/29/2024 4:30 PM EST Hospital En[place] [address] Lizet Wilkes MD [facility] [place] [place] [address] 09/29/2024 4:30 PM EST - 09/29/2024 5:00 PM EST [place] [phone] Lizet Wilkes MD [facility] [place] [address] EGD, UPPER GI ENDOSCOPY (WRVU 2.09) 11/09/2024 10:00 AM EST Laboratory Appointment Lab at [facility] Hematology Oncology [address] [place] [phone] 11/09/2024 11:00 AM EST Office Visit Hematology [place] [address] Faith Caba MD [facility] DR HEMATOLOGY [place] [address] 11/09/2024 12:00 PM EST Appointment Hematology and [...] hemorrhage documented in this encounter Care Teams Rn Discharge Relationship Specialty Start Date End Date Kennedi Shaver MD [address] [place] [address] PCP - General Family Medicine 08/02/20 06/24/24 documented as of this encounter
--- OUTSIDE RECORDS SUMMARY | 2024-09-11 15:26 | XMS_ITS | Encounter Summary ---
Author Organization [facility] [place] [address] Care Team Providers Care Press Shop Supervisor Name Role Phone Kennedi Shaver MD Primary Care Provider [phone] Reason for Referral * Consultation (Routine) - Closed Specialty Diagnoses / Procedures Referred By Contalice t Referred To Contact Sleep Center Diagnoses Snoring Procedures PRG POLYSOM 6+ YRS SLEEP W 4+ ADDL LAURA Charlotte Yun MD [facility] [place] [address] [facility] Sleep Medicine [address] [place] [address] Referral ID Status Reason Start Date Expiration Date V isits Requested Visits Authorized [id number] Closed Test Only 03/14/2020 03/14/2021 1 1 Reason for Visit * Consultation (Routine) - Specialty Diagnoses / Procedures Referred By Blaine peralta Referred To Contact Sleep Center Diagnoses Other fatigue Kennedi Shaver MD [facility] [address] [address] [facility] Sleep Medicine [address] [place] [address] Referral ID Status Reason Start Date Expiration Date V isits Requested Visits Authorized [id number] Consult, Test & Treat Connection Center PCP Updated and/or Approved 01/15/2020 07/16/2020 6 6 Encounter Details Date Type Department Care Team (Late st Contact Info) Description 03/14/2020 10:00 AM EDT Office Visit Sleep Center at [facility] [address] [place] [address] Charlotte Euceda MD [facility] [place] [address] Snoring; Fatigue, unspecified type Social History Tobacco Use Types [...] Sign Reading Time Taken Comments Blood Pressure 150/78 03/14/2020 9:39 AM EDT Pulse 61 03/14/2020 9:39 AM EDT Temperature - - Respiratory Rate - - Oxygen Saturation 98% 03/14/2020 9:39 AM EDT Inhaled Oxygen Concentration - - Weight 85.7 kg (189 lb) 03/14/2020 9:39 AM EDT Height 180.3 cm (5' 11) 03/14/2020 9:39 AM EDT Body Mass Index 26.36 03/14/2020 9:39 AM EDT documented in this encounter Progress Notes * Charlotte Euceda MD - 03/14/2020 10:00 AM EDT Sleep Medicine Consultation Note HPI: Chidi Carbone is a 74 y.o. male seen at the request of Dr. Kennedi Shaver for advice regarding fatigue. No problems with staying awake. Undergoing treatment for prostate cancer for past few years(on his 3rd yr). Fatigue correlates with prostate cancer treatment, although it seems worse more rec ently. 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 Denies unintentional sleep. Has been napping regularly for past 6-8 months - will nap for an hour in afternoon, sometimesin morning too. Denies unintentional sleep. Denies sleepiness with driving. Denies accidents/close calls. Uses ambien regularly for sleep - uses nightly for more than 10 yrs. Doesn't remember exactlythe sleep problems he was having when it was started. No problems initiating or maintaining sleep with ambien. Has only gone without the ambien for 1 night at times and has been tortuous. Takes ambien 20 minutes before going to bed. Denies adverse effects from ambien and denies amnestic/dangerous be haviors with ambien. has a prescription for modafinil that he used and felt like it helped himconcentrate better. has reported snoring at times, although not regularly. Before ambien he states that his would occasionally report apneas, although this has not been an issue now. He was reporting waking gasping/choking before ambien but is not aware of it since using ambien. Sleep Pattern: Bed/Recliner/Wedge: bed, flat Bedtime: 10-11 Lights out: may read a little Latency: rapid Awakenings: once Wake time: 5-6 Rise time: immediate Respiratory: Snoring: some Observed Apneas: not currently Mouth Breathing: no Dry Mouth: no Nocturnal Gasping: no Nasal Obstruction: no Daytime Symptoms: Patient-reported scores: [facility] 03/14/2020 [facility] 3 Insomnia Severity Index 2 (No clinically significant insomnia) Upon Awakening: variable - usually feels ok Naps: regularly Involuntary Dozing: denies Driving: denies Close calls related to sleepiness denies Accidents related to sleepiness denies Other Associates Sleep Symptoms: Parasomnias: Sleep Walking: no Dream Enactment: no Motor: RLS: no PLMS: no Narcolepsy: Hallucinations: no Paralysis: no Cataplexy: no Family History: Family history of sleep disorders: doesn't think so ROS: CON: weight change: -20 in the past 2 yrs ENT: nasal obstruction: no PUL: RAMIREZ: no CV: chest pain: no Palpitations: no LE edema: no GI: GERD: no : Nocturia: 0-1x MSK: Pain: no NEURO: sleep related headaches: no ALL: no PSY: Depression, anxiety: denies Past Medical History: Patient Active Problem List Diagnosis Code ??? GERD (gastroesophageal reflux disease) K21.9 ??? 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 Hypertension I10 Medications: Outpatient Medications Marked as Taking for the 03/14/20 encounter (Office Visit) with Charlotte Euceda MD Medication Sig Dispense Refill ??? leuprolide acetate (LUPRON DEPOT IM) Inject into the muscle. Once every 3 months, dosage unknown ??? ZYTIGA 500 mg Tablet TAKE 2 TABLETS BY MOUTH EVERY DAY 60 tablet 11 ??? tamsulosin (FLOMAX) 0.4 mg Capsule ??? finasteride (PROSCAR) 5 mg Tablet ??? predniSONE (DELTASONE) 5 mg Tablet Take 1 tablet by mouth daily. 30 tablet 11 ??? 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 General: alert, no distress Eyes: PERRL, conjunctiva clear ENT: oropharynx MP: 2 Crowded: clear Dentition: intact Mandibular structure and position: normal NECK: Submental fat present: minimal Supple, no LAD, no thyroid enlargement LUNGS: respirations even and unlabored, CTAB CV: RRR, no m/g/r, no c/c/e ABD: BS+, soft, NT, no HSM SKIN: warm and dry NEURO: gait and station normal, no tremor PSYCH: Alert and appropriate: yes Oriented to person, place and time: yes Affect: full range Mood:good Judgement and insight: intact Assessment: Chidi Carbone is a 74 y.o. male with a history of some snoring as well as fatigue/concentration issues. He did report apneas/nocturnal gasping a number of years ago, but feels that these symptoms abated once he started ambien. His fatigue/concentration issues have been present since starting treatment for prostate cancer. The history and symptoms raise suspicion for a possible component of obstructive sleep apnea which may play a role in daytime symptoms. The diagnosis of obstructive sleep apnea was reviewed in detail with the patient at this time. Potential consequences of untreated obstructive sleep apnea reviewed, including increased cardiovascular risk. Treatment options reviewed in detail. He does not think he would be able to tolerate CPAP but is open to having a sleep study to assess. The history is not suggestive of another underlying sleep disorder or primary hypersomnia disorder. We did spend some time discussing potential adverse effects of zolpidem, although he denies da ngerous/amnestic behaviors. Discussed that alcohol can potentiate adverse effects of zolpidem. Patient confirms that study results can be relayed via results letter. Questions regarding diagnosis andmanagement answered at this time. Recommendations: 1. Overnight PSG 2. Recommended limiting ETOH in the evening and not using ambien with ETOH documented in this encounter Plan of Treatment Upcoming Encounters Date Type Department Care Team (Latest Contact Info) Description 09/29/2024 4:30 PM EST Hospital Encounter [place] [address] Lizet Wilkes MD [facility] [place] [address] 09/29/2024 4:30 PM EST - 09/29/2024 5:00 PM EST Surgery [place] [address] Lizet Wilkes MD [facility] [place] [address] EGD, UPPER GI ENDOSCOPY (WRVU 2.09) 11/09/2024 10:00 AM EST Laboratory Appointment Lab at [facility] [place] On[place] [address] [place] [phone] 11/09/2024 11:00 AM EST Office Visit Hematology [place] [address] Faith Caba MD [facility] DR [place] [address] 11/09/2024 12:00 PM EST Appointment Hematology [place] [address] Scheduled Procedures Name Priority Associated Diagnoses Date/Ti me EGD, UPPER GI ENDOSCOPY (WRVU 2.09) Gastroesophageal reflux disease with esophagitis, unspecified whether hemorrhage 09/29/2024 4:30 PM EST Scheduled Referrals Name Type Priority Associated Diagnoses Orde r Schedule Referral to Sleep Disorders Center Outpatient Referral Routine Snoring Ordered: 03/14/2020 documented as of this encounter Visit Diagnoses Diagnosis Snoring Other dyspnea and respiratory abnormality Fatigue, unspecified type Gastroesophageal reflux disease with esophagitis, unspecified whether hemorrhage documented in this encounter Care Teams Press Shop Supervisor Relationship Specialty Start Date End Date Kennedi Shaver MD [address] [facility] [address] [place] [address] PCP - General 08/22/10 08/01/20 documented as of this encounter
--- OUTSIDE RECORDS SUMMARY | 2024-09-11 15:26 | XMS_ITS | Encounter Summary ---
Author Organization [facility] [place] [address] Care Team Providers Care Landscape Gardener Name Role Phone Kennedi Shaver MD Primary Care Provider [phone] Encounter Details Date Type Department Care Team (Late st Contact Info) Description 06/07/2020 Orders Only Hematology [place] [phone] HEMATOLOGY AND ONCOLOGY [place], [place] [id number] Social History Tobacco Use Types Packs/Day Years [...] (Latest Contact Info) Description 09/29/2024 4:30 PM [facility] Hospital Encounter [place] [address] Lizet Wilkes MD [facility] [place] [address] 09/29/2024 4:30 PM EST - 09/29/2024 5:00 PM EST Surgery Gastroenterology at [place] [phone] Lizet Wilkes MD [facility] [place] [address] EGD, UPPER GI ENDOSCOPY (WRVU 2.09) 11/09/2024 10:00 AM EST Laboratory Appointment Lab at [facility] [place] [address] [place], [place] [phone] 11/09/2024 11:00 AM EST Office Visit Hematology and Oncology at [place] [phone] Faith Caba MD [facility] DR HEMATOLOGY [place] [address] 11/09/2024 12:00 PM EST Appointment Hematology [place] [address] Scheduled Procedures Name Priority Associated Diagnoses Date/Ti me EGD, UPPER GI ENDOSCOPY (WRVU 2.09) Gastroesophageal reflux disease with esophagitis, unspecified whether hemorrhage 09/29/2024 4:30 PM EST documented as of this encounter Goals Goal Patient Goal Type Associated Problems Recent Progress Patient-Stated? Author [facility] Medication Compliance and Understanding Patient Facing Action Plan Curly Nicolas, [facility] Note: The patient? s goal is to continue positive results of oral chemotherapy by maintaining improved labs PSA or stable scans in clinic for the upcoming year. documented as of this encounter Visit Diagnoses Not on filedocumented in this encounter Care Teams Landscape Gardener Relationship Specialty Start Date End Date Kennedi Shaver MD [facility] [address] [place] [address] PCP - General 08/22/10 08/01/20 documented as of this encounter
--- OUTSIDE RECORDS SUMMARY | 2024-09-11 15:26 | XMS_ITS | Encounter Summary ---
[place] [address] Care Team Providers Care Studio Model Name Role Phone Kennedi Shaver MD Primary Care Provider [phone] Encounter Details Date Type Department Care Team (Latest Contact Info) Description 04/05/2020 8:46 AM EDT Hospital Encounter Hematology [place] [address] Neoplasm of prostate, distant metastasis staging category [...] muscle. Once every 3 months, dosage unknown ZYTIGA 500 mg Tablet TAKE 2 TABLETS [...] EST Hospital En[place] [address] Lizet Wilkes MD [facility] [place] [address] 09/29/2024 4:30 PM EST - 09/29/2024 5:00 PM EST [place] [phone] Lizet Wilkes MD [facility] [place] [address] EGD, UPPER GI ENDOSCOPY (WRVU 2.09) 11/09/2024 10:00 AM EST Laboratory Appointment Lab at [facility] Hematology Oncology [address] [place] [phone] 11/09/2024 11:00 AM EST Office Visit Hematology [place] [phone] Faith Caba MD [facility] HEMATOLOGY [place] [address] 11/09/2024 12:00 PM EST Appointment Hematology [place] [address] Scheduled Procedures Name Priority Associated Diagnoses Date/Ti [...] Priority Date/Time Associated Diagnosis Comments HEMOGRAM Routine 04/05/2020 8:55 AM EDT Neoplasm of prostate, distant metastasis staging category M1c: distant metastasis with or without metastasis to bone DIFFERENTIAL, AUTOMATED Routine 04/05/2020 8:55 AM EDT Neoplasm of prostate, distant metastasis staging category M1c: distant metastasis with or without metastasis to bone HC CBC,PLT & AUTO DIFF Routine 0 8:55 AM EDT Neoplasm of prostate, distant metastasis staging category M1c: distant metastasis with or without metastasis to bone HC PROSTATE SPECIFIC ANTIGEN Routine 04/05/2020 8:55 AM EDT Neoplasm of prostate, distant metastasis staging category M1c: distant metastasis with or without metastasis to bone COMPREHENSIVE METABOLIC PANEL Routine 04/05/2020 8:55 AM EDT Neoplasm of prostate, distant metastasis staging category M1c: distant metastasis with or without metastasis to bone documented in this encounter Results * Differential, Automated (04/05/2020 8:55 AM EDT) Neutrophil % 54.3 % [facility] Neutrophil Absolute 2.87 1.70 - 6.10 x10(3)/[facility] Lymph % 26.5 % [facility] Lymphocytes Abs 1.4 0.9 - 3.2 x10(3)/[facility] Monocyte % 13.3 % [facility] Monocyte Abs 0.7 0.3 - 0.9 x10(3)/[facility] Eos % 4.9 % [facility] Eosinophils Abs 0.3 0.0 - 0.4 x10(3)/[facility] Basophil % 0.8 % [facility] Baso Absolute 0.0 0.0 - 0.1 x10(3)/[facility] Immature Gran % 0.20 % [facility] Comment: Immature granulocytes(IG's)percentage and absolute count will include metamyelocytes, myelocytes, and promyelocytes. Blood smears from CBCs yielding IG's will be scanned manually for concordance. If this scan disagrees with the automated IG or if promyelocytes are noted, a manual differential will be performed. Immature Gran Absolute 0.01 0.00 - 0.04 x10(3)/[facility]OR[facility] Blood specimen (specimen) 04/05/2020 8:55 AM EDT 04/05/2020 8:58 AM EDT Narrative Resulting Agency Comment Spec In Lab Deborah Hector [facility] HEMATOLOGY ORDERAB LES [facility] [place] [address] * (ABNORMAL) Hemogram (04/05/2020 8:55 AM EDT) White Blood Cell 5.3 4.0 - 9.5 x10(3)/mc L [facility] Red Blood Cell 4.22(L) 4.58 - 5.54 x10(6)/mc L [facility] Hemoglobin 12.8(L) 13.7 - 16.5 gm/dL [facility] Hematocrit 39.2(L) 40.5 - 48.5 % [facility] Mean Cell Volume 92.9 82.9 - 93.1 fL [facility] Mean Cell Hemoglobin 30.3 27.5 - 32.1 pg [facility] Mean Cell Hemoglobin Concentration 32.7 32.0 - 35.7 gm/dL [facility] Platelet 236 145 - 357 x10(3)/mc L [facility] RDW Standard Deviation 44.1 36.0 - 45.0 fL [facility] RDW coefficient of variation 13.1 11.4 - 13.8 % [facility] Mean Platelet Volume 9.9 7.6 - 12.9 fL [facility] NRBC% auto 0.0 % [facility] NRBC Absolute 0.000 0.000 - 0.000 x10(3)/mc L [facility] Blood specimen (specimen) 04/05/2020 8:55 AM EDT 04/05/2020 8:58 AM EDT Narrative Resulting Agency Comment Spec In Lab Deborah Hector [facility] HEMATOLOGY ORDERAB LES [facility] [place] [address] * Comprehensive metabolic panel (non-fasting) (04/05/2020 8:55 AM EDT) Glucose 105 65 - 199 mg/dL [facility] Comment:Diabetes: >=200 mg/d L plus symptoms Blood Urea Nitrogen 15 10 - 20 mg/dL [facility] Creatinine 0.89 0.80 - 1.50 mg/dL [facility] Sodium 142 135 - 145 mmol/L [facility] Potassium 4.0 3.5 - 5.0 mmol/L [facility] Comment: Please note: ??Patients with WBC >100,000 may have falsely elevated Potassium levels. ??For accurate Potassium quantification in these patients send serum separator tube (gold top) for subsequent determinations. ??Contact the Clinical Chemistry Laboratory if there are any questions. Chloride 105 98 - 107 mmol/L [facility] Carbon Dioxide 27 22 - 31 mmol/L [facility] Anion Gap 10 5 - 15 mmol/L [facility] Calcium 9.2 8.5 - 10.5 mg/dL [facility] Protein, Total 6.5 6.1 - 8.0 gm/dL [facility] Albumin 4.2 3.2 - 5.2 gm/dL [facility] Aspartate Aminotransferase 12 0 - 39 unit/L [facility] Alanine Aminotransferase 12 0 - 55 unit/L [facility] Alkaline Phosphatase 100 40 - 130 unit/L [facility] Bilirubin, Total 0.6 0.2 - 1.3 mg/dL [facility] Est Glomerular Filtration Rate 84 >=60 mL/min/1. 73 m?? [facility] Comment: The eGFR was calculated using the CKD-EPI equation. As with all creatinine based estimates of kidney function, eGFR values calculated with the CKD-EPI equation are not accurate in patients with acute kidney failure, extremes of body mass or the acutely ill. [email or web address]/DHMCnkf eGFR 97 >=60 mL/min/1. 73 m?? [facility] Comment: The eGFR was calculated using the CKD-EPI equation. As with all creatinine based estimates of kidney function, eGFR values calculated with the CKD-EPI equation are not accurate in patients with acute kidney failure, extremes of body mass or the acutely ill. [email or web address] Blood specimen (specimen) 04/05/2020 8:55 AM EDT 04/05/2020 8:58 AM EDT Narrative Resulting Agency Comment Spec In Lab Deborah Hector [facility] CHEMISTRY ORDERABL ES [facility] [place] [address] * PSA (Ultrasensitive) (04/05/2020 8:55 AM EDT) Prostate Specific Antigen (Ultrasensitiv e) <0.01 0.00 - 4.00 ng/mL [facility] Blood specimen (specimen) 04/05/2020 8:55 AM EDT 04/05/2020 8:58 AM EDT Narrative Resulting Agency Comment Spec In Lab Deborah Hector [facility] CHEMISTRY ORDERABL ES [facility] [place] [address] documented in this encounter Visit Diagnoses Diagnosis Neoplasm of prostate, distant metastasis staging category M1c: distant metastasis with or without metastasis to bone Gastroesophageal reflux disease with esophagitis, unspecified whether hemorrhage documented in this encounter Care Teams Studio Model Relationship Specialty Start Date End Date Kennedi Shaver MD [address] [place] [address] PCP - General 08/22/10 08/01/20 documented as of this encounter
--- OUTSIDE RECORDS SUMMARY | 2024-09-11 15:26 | XMS_ITS | Encounter Summary ---
Author Organization [facility] [place] [address] Care Team Providers Care Candy Cooker Helper Name Role Phone Kennedi Shaver MD Primary Care Provider [phone] Reason for Visit * Treatment/Therapy Plan Authorization (Routine) - Specialty Diagnoses / Procedures Referred By Blaine peralta Referred To Contact Diagnoses Neoplasm of prostate, distant metastasis staging category M1c: distant metastasis with or without metastasis to bone Procedures TC LEUPROLIDE ACETATE 7.5MG, FOR DEPOST SUSPENSION (LUPRON DEPOT) Faith Caba MD [facility] DR HEMATOLOGY [place] [address] [facility] Hem Onc [address] [place] [address] Referral ID Status Reason Start Date Expiration Date V isits Requested Visits Authorized [id number] 07/07/2018 08/09/2020 30 30 Encounter Details Date Type Department Care Team (Latest Contact Info) Description 04/05/2020 8:47 AM EDT - 04/05/2020 11:59 PM EDT Hospital Encounter [place] [address] Neoplasm of prostate, distant metastasis staging category [...] as of this encounter Progress Notes * Erica Perez RN - 04/05/2020 11:06 AM EDT Patient Name: Chidi Carbone Patient Age: 74 y.o. Birthdate: 1945 Admit date: 04/05/2020 Attending Physician: No att. providers found Access visit. See MAR and/or flowsheet. Lupron given. Tolerated well. documented in this encounter Plan of Treatment Upcoming Encounters Date Type Department Care Team (Latest Contact Info) Description 09/29/2024 4:30 PM EST Hospital [place] [phone] Lizet Wilkes MD [facility] [place] [address] 09/29/2024 4:30 PM EST - 09/29/2024 5:00 PM EST [place] [phone] Lizet Wilkes MD [facility] [place] [address] EGD, UPPER GI ENDOSCOPY (WRVU 2.09) 11/09/2024 10:00 AM EST Laboratory Appointment Lab at [facility] Hematology Oncology [address] [place] [phone] 11/09/2024 11:00 AM EST Office Visit [place]ology [place] [phone] Faith Caba MD [facility] DR [place] [address] 11/09/2024 12:00 PM EST Appointment Hematology and Oncology at [place] [phone] Scheduled Procedures Name Priority Associated Diagnoses Date/Ti wv EGD, UPPER GI ENDOSCOPY (WRVU 2.09) Gastroesophageal [...] Action Action Date Dose Rate Site leuprolide (LUPRON DEPOT) injection 22.5 mg 22.5 mg, Intramuscular, ONCE, 1 dose, On Sat04/05/20 at 1100, Routine, This agent is restricted to outpatient use. Is this drug being given as an outpatient? Yes Given 04/05/2020 11:00 AM EDT 22.5 mg Left Gluteal documented in this encounter Care Teams Candy Cooker Helper Relationship Specialty Start Date End Date Kennedi Shaver MD [address] [place] [address] PCP - General 08/22/10 08/01/20 documented as of this encounter
--- OUTSIDE RECORDS SUMMARY | 2024-09-11 15:26 | XMS_ITS | Encounter Summary ---
Author [facility] [place] [address] Care Team Providers Care Portal Administrator Name Role Phone Kennedi Shaver MD Primary Care Provider [phone] Reason for Visit * Treatment/Therapy Plan Authorization (Routine) - Specialty Diagnoses / Procedures Referred By Blaine peralta Referred To Contact Diagnoses Neoplasm of prostate, distant metastasis staging category M1c: distant metastasis with or without metastasis to bone Procedures TC LEUPROLIDE ACETATE 7.5MG, FOR DEPOST SUSPENSION (LUPRON DEPOT) Faith Caba MD [facility] DR HEMATOLOGY [place] [address] [facility] Hem Onc [address] [place] [address] Referral ID Status Reason Start Date Expiration Date V isits Requested Visits Authorized [id number] 07/07/2018 08/09/2020 30 30 Encounter Details Date Type Department Care Team (Latest Contact Info) Description 01/05/2020 1:48 PM EDT - 01/05/2020 11:59 PM EDT Hospital Encounter Hematology [place] [address] Neoplasm of prostate, distant metastasis staging category [...] as of this encounter Progress Notes * Alberta Ruiz RN - 01/05/2020 4:41 PM EDT Patient Name: Chidi Carbone Patient Age: 74 y.o. Birthdate: 1945 Admit date: 01/05/2020 Attending Physician: No att. providers found Access visit. See MAR and/or flowsheet. Lupron given in R glute. Tolerated well. documented in this encounter Plan of Treatment Upcoming Encounters Date Type Department Care Team (Latest Contact Info) Description 09/29/2024 4:30 PM [facility] Hospital Encounter [place] [address] Lizet Wilkes MD [facility] [place] [address] 09/29/2024 4:30 PM EST - 09/29/2024 5:00 PM EST Surgery Gastroenterology at [place] [phone] Lizet Wilkes MD [facility] [place] [address] EGD, UPPER GI ENDOSCOPY (WRVU 2.09) 11/09/2024 10:00 AM EST Laboratory Appointment Lab at [facility] Hematology Oncology [address] [place], [place] [phone] 11/09/2024 11:00 AM EST Office Visit Hematology and Oncology at [place] [phone] Faith Caba MD [facility] DR [place] [address] 11/09/2024 12:00 PM EST Appointment Hematology and Oncology at [place] [phone] Scheduled Procedures Name Priority Associated Diagnoses Date/Ti [...] 22.5 mg, Intramuscular, ONCE, 1 dose, On Sat01/05/20 at 1645, Routine, This agent is restricted to outpatient use. Is this drug being given as an outpatient? Yes Given 01/05/2020 4:37 PM EDT 22.5 mg Right Gluteal documented in this encounter Care Teams Portal Administrator Relationship Specialty Start Date End Date Kennedi Shaver MD [address] [place] [address] PCP - General 08/22/10 08/01/20 documented as of this encounter
--- OUTSIDE RECORDS SUMMARY | 2024-09-11 15:26 | XMS_ITS | Encounter Summary ---
Author Organization [facility] Address [facility] [place] [address] Care Team Providers Care Rehab/Pre Vocational Counselor Name Role Phone Kennedi Shaver MD Primary Care Provider [phone] Encounter Details Date Type Department Care Team (Late st Contact Info) Description 01/05/2020 Specialty [place] [phone] Curly Andres, [facility] Social History Tobacco Use Types [...] Contact Info) Description 09/29/2024 4:30 PM [facility] Hospital Encounter [place] [phone] Lizet Wilkes MD [facility] [place] [address] 09/29/2024 4:30 PM EST - 09/29/2024 5:00 PM EST Surgery Gastroenterology at [place] [address] Lizet Wilkes MD [facility] [place] [address] EGD, UPPER GI ENDOSCOPY (WRVU 2.09) 11/09/2024 10:00 AM EST Laboratory Appointment Lab at [facility] Hematology Oncology [address] [place] [phone] 11/09/2024 11:00 AM EST Office Visit [place]ology [place] [phone] Faith Caba MD [facility] [place] [address] 11/09/2024 12:00 PM EST Appointment Hematology and Oncology at [place] [phone] Scheduled Procedures Name Priority Associated Diagnoses Date/Ti me EGD, UPPER GI ENDOSCOPY (WRVU 2.09) Gastroesophageal reflux disease with esophagitis, unspecified whether hemorrhage 09/29/2024 4:30 PM EST documented as of this encounter Visit Diagnoses Not on filedocumented in this encounter Care Teams Rehab/Pre Vocational Counselor Relationship Specialty Start Date End Date Kennedi Shaver MD [facility] [address] [place] [address] PCP - General 08/22/10 08/01/20 documented as of this encounter
--- OUTSIDE RECORDS SUMMARY | 2024-09-11 15:26 | XMS_ITS | Encounter Summary ---
Author Organization [facility] Address [facility] [place] [address] Care Team Providers Care Vegetable Buncher Name Role Phone Kennedi Shaver MD Primary Care Provider [phone] Encounter Details Date Type Department Care Team (Late st Contact Info) Description 04/05/2020 Specialty [place] [phone] Curly Andres, [facility] Social History [...] [facility] [place] Hospital En[place] [phone] Lizet Wilkes MD [facility] [place] [address] 09/29/2024 4:30 PM EST - 09/29/2024 5:00 PM EST Surgery Gastroenterology at [place] [phone] Lizet Wilkes MD [facility] [place] [address] EGD, UPPER GI ENDOSCOPY (WRVU 2.09) 11/09/2024 10:00 AM EST Laboratory Appointment Lab at [facility] Hematology Oncology [address] [place] [phone] 11/09/2024 11:00 AM EST Office Visit Hematology and Oncology at [place] [phone] Faith Caba MD [facility] DR HEMATOLOGY [place] [address] 11/09/2024 12:00 PM EST Appointment Hematology [place] [phone] Scheduled Procedures Name Priority Associated Diagnoses Date/Ti me EGD, UPPER GI ENDOSCOPY (WRVU 2.09) Gastroesophageal reflux disease with esophagitis, unspecified whether hemorrhage 09/29/2024 4:30 PM EST documented as of this encounter Goals Goal Patient Goal Type Associated Problems Recent Progress Patient-Stated? Author [facility] [place] Medication Compliance and Understanding Patient Facing Action Plan Curly Nicolas, [facility] Note: The patient? s goal is to continue positive results of oral chemotherapy by maintaining improved labs PSA or stable scans in clinic for the upcoming year. documented as of this encounter Visit Diagnoses Not on filedocumented in this encounter Care Teams Vegetable Buncher Relationship Specialty Start Date End Date Kennedi Shaver MD [address] [place] [address] PCP - General 08/22/10 08/01/20 documented as of this encounter
--- OUTSIDE RECORDS SUMMARY | 2024-09-11 15:26 | XMS_ITS | Encounter Summary ---
Author Organization [facility] [place] [address] Care Team Providers Care Social Work Lecturer Name Role Phone Kennedi Shaver MD Primary Care Provider [phone] Reason for Visit * Reason Comments Follow-up Encounter Details Date Type Department Care Team (Late st Contact Info) Description 10/06/2019 10:30 AM EST Office Visit [place] [address] Faith Caba MD [facility] DR [place] [address] HEMATOLOGY [place] [address] Malignant neoplasm of prostate Social History Tobacco [...] Sign Reading Time Taken Comments Blood Pressure 156/84 10/06/2019 10:08 AM EST Pulse 69 10/06/2019 10:08 AM EST Temperature 37 ??C (98.6 ??F) 10/06/2019 10:08 AM EST Respiratory Rate 16 10/06/2019 10:08 AM EST Oxygen Saturation 95% 10/06/2019 10:08 AM EST Inhaled Oxygen Concentration - - Weight 86.5 kg (190 lb 9.6 oz) 10/06/2019 10:08 AM EST Height 179.1 cm (5' 10.51) 10/06/2019 10:08 AM EST Body Mass Index 26.95 10/06/2019 10:08 AM EST documented in this encounter Progress Notes * Deborah Hector, PHOTO BOOTH OPERATOR - 10/06/2019 10:30 AM EST Images from the original note were not included. N [facility] HEM ONC [facility] [phone] ?? ONCOLOGY FOLLOW UP VISIT DIAGNOSIS: Metastatic [...] 7.5 mg on 03/20/2017 Added abiraterone/pred 04/2017 HPI: Chidi Carbone presents today for f/u. He's been doing quite well. Getting settled into new home,completed sale and set up of his [employer], is enjoying writing, staying physically active. Recently got his brother with CHF settled into care. Den recent illnesses, unexpected wt changes or fatigue. No new urinary symptoms, den hot flushes or pain. Skin graft areas R leg healed up well. REVIEW OF SYSTEMS: As noted in HPI/Interval History; all other systems were reviewed and found to be negative. PAST MEDICAL HISTORY: 1. As above 2. GERD and Sol's esophagus S/p Alli Fundoplication 3. ELevated fasting glusoce 4. S/p distant appendectomy 5. S/p tonsilectomy MEDS: Medications 10/06/19 1008 Medication Sig Taking? ZYTIGA 500 mg Tablet TAKE 2 TABLETS BY MOUTH EVERY DAY Yes tamsulosin (FLOMAX) 0.4 mg Capsule Yes finasteride (PROSCAR) 5 mg Tablet Yes predniSONE (DELTASONE) 5 mg Tablet Take 1 tablet by mouth daily. Yes pantoprazole (PROTONIX) 20 mg Tablet, Delayed Release (E.C.) Take 20 mg by mouth 2 times daily. Yes ZOLPIDEM TARTRATE (AMBIEN ORAL) Yes ALLERGY: No Known Allergies FAMILY HX: Reviewed no change SOCIAL HX: Reviewed - no change PHYSICAL EXAM: BP 156/84 (Patient Position: Sitting) Pulse 69 Temp 37 ??C (98.6 ??F) (Oral) Resp 16 Ht 179.1 cm (5' 10.51) Wt 86.5 kg (190 lb 9.6 oz) SpO2 95% BMI 26.95 kg/m?? PS=0 Constitutional: NAD Eyes: Non-injected, anicteric. Resp: Effort normal, no resp distress Musculoskeletal: Normal range of motion, ambulatory. Extremities: No distal edema noted. Skin: R LE wound healed over well. Neurological: Alert & oriented, no focal deficits. Psych: Conversant, normal mood and affect. Vitals reviewed. LABS: CBC unremarkable, CMP wnl, PSA <0.01 (stable) IMAGING STUDIES: No new ASSESSMENT AND PLAN: Chidi Carbone has metastatic prostate cancer with extensive disease involving nodes and bones. He is on combination lupron+zytiga as first line therapy with very good clinical response. PSA remains undetectable and he is asymptomatic. Generally tolerates treatment well, labs stable. We will contw/current regimen of abiraterone/prednisone and Lupron (due today). We will see him back in 3 months for labs and Lupron. Mr. Carbone asked appropriate questions and verbalized good understanding of and agreement with theplan. I encouraged him to call anytime with questions or concerns and he agreed. Deborah Hector APRN documented in this encounter Plan of Treatment Upcoming Encounters Date Type Department Care Team (Latest Contact Info) Description 09/29/2024 4:30 PM EST Hospital [place] [address] Lizet Wilkes MD [facility] [place] [address] 09/29/2024 4:30 PM EST - 09/29/2024 5:00 PM EST Surgery Gastroenterology at [place] [phone] Lizet Wilkes MD [facility] [place] [address] EGD, UPPER GI ENDOSCOPY (WRVU 2.09) 11/09/2024 10:00 AM EST Laboratory Appointment Lab at [facility] Hematology Oncology [address] [place] [phone] 11/09/2024 11:00 AM EST Office Visit [place] [phone] Faith Caba MD [facility] [place]EMATOLOGY [place] [address] 11/09/2024 12:00 PM EST Appointment [place] [phone] Scheduled Procedures Name Priority Associated Diagnoses Date/Ti me EGD, UPPER GI ENDOSCOPY (WRVU 2.09) Gastroesophageal reflux disease with esophagitis, unspecified whether hemorrhage 09/29/2024 4:30 PM EST documented as of this encounter Visit Diagnoses Diagnosis Malignant neoplasm of prostate Gastroesophageal reflux disease with esophagitis, unspecified whether hemorrhage documented in this encounter Care Teams Social Work Lecturer Relationship Specialty Start Date End Date Kennedi Shaver MD [facility] [address] [place] [address] PCP - General 08/22/10 08/01/20 documented as of this encounter
--- OUTSIDE RECORDS SUMMARY | 2024-09-11 15:26 | XMS_ITS | Encounter Summary ---
[place] [address] Care Team Providers Care Rn Document Improvement Specialist Name Role Phone Kennedi Shaver MD Primary Care Provider [phone] Reason for Visit * Reason Comments Medication Management Patient Education Encounter Details Date Type Department Care Team (Late st Contact Info) Description 04/05/2020 Specialty [place] [address] Curly Andres Yan Social History Tobacco Use Types Packs/Day Years [...] Progress Notes * Curly Andres RPH - 04/05/2020 10:59 AM EDT Specialty Pharmacy Consultation; Curly Andres RPH Comprehensive Medication Management (CMM) Chidi Yoonmyranda Diagnosis: Prostate cancer Therapy Start Date: April 2017 Contact in person or via telephone: In person Mr. Chidi Carbone is a 74 y.o. (1945) male who was seen in clinic today today. I spoke withthe patient regarding their specialty medication Zytiga and a review of the drug therapy was performed. The patient currently fills his Zytiga but would like to fill with the Specialty Pharmacy moving forward. The patient reports having ~ 14 days of Zytiga left on-hand. I will reach out to Dr. Caba to request a new prescription and call the patient to set up his first shipment. Is the patient willing to proceed with the Clinical Assessment? Yes Summary and Recommendations: Chidi Carbone has been taking Zytiga and prednisone since April 2017. He reports continuing to take Zytiga 1000 mg by mouth once daily in the morning at least 2 hours after food or 1 hour before.He states that he continues to take prednisone 5 mg once daily. The patient states that his most bothersome side- effect from treatment is fatigue. As reported previously, he has been intermittently using his 's Provigil to help treat the fatigue with good effect. 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 He has startedtaking 20 minutes walks in the morning which the patient states has helped with his fatigue. He will follow-up with sleep medicine for a sleep study to discuss potential sources of fatigue. Potentialside-effects and management strategies were reviewed with the patient including hypertension, edema, and hot flashes. The patient states that he has been checking his blood pressure at home and the SBP has when running in the 130-150. He reports at this time that his PCP does not want to start antihypertensives on him. The safe handling of the medication including the the use of disposable glovesand hand washing was emphasized. The services provided by the Specialty Pharmacy, including hours of operation, 24 hr on-call pharmacist services, refill reminders, and follow-up calls were reviewed with the patient. A new prescription for Zytiga was requested from the provider and will be filled for $24.30 copay. The importance of clinical follow-up and routine laboratory assessments while on treatment was discussed with the patient. The patient was encouraged to contact the Specialty Pharmacywith any questions or concerns. Clinic follow-up needed: yes - Patient will follow-up with his provider as clinically indicated Allergies and Drug intolerance: No Known Allergies Special Dietary or Hydration Requirements: yes - Patient to take medication on an empty stomach There is no height or weight on file to calculate BMI. Medication reconciliation discrepancies (compared to [facility] med list): No performed by NILDA in clinic Medication Adherence Patient reported X missed doses in the last month: 0 Any gaps in refill history greater than 2 weeks in the last 3 months: no Demonstrates understanding of importance of adherence: yes Informant: patient Reliability of informant: reliable Provider-estimated medication adherence level: good Reasons for non-adherence: no problems identified Adherence tools used: directed education Support network for adherence: healthcare provider Confirmed plan for next specialty medication refill: delivery by pharmacy Refills needed for supportive medications: yes, ordered or provider notified Medication List: Current Outpatient Medications Medication Sig Dispense Refill ??? leuprolide acetate (LUPRON DEPOT IM) Inject into the muscle. Once every 3 months, dosage unknown ??? ZYTIGA 500 mg Tablet TAKE 2 TABLETS BY MOUTH EVERY DAY 60 tablet 11 ??? tamsulosin (FLOMAX) 0.4 mg Capsule ??? finasteride (PROSCAR) 5 mg Tablet ??? predniSONE (DELTASONE) 5 mg Tablet Take 1 tablet by mouth daily. 30 tablet 11 ??? pantoprazole (PROTONIX) 20 mg Tablet, Delayed Release (E.C.) Take 20 mg by mouth 2 times daily. ??? ZOLPIDEM TARTRATE (AMBIEN ORAL) (Patient taking differently: Take by mouth nightly.) No current facility-administered medications for this visit. Most Recent Vitals: Ht Readings from Last 1 Encounters: 04/05/20 179.6 cm (5' 10.71) Wt Readings from Last 3 Encounters: 04/05/20 84.7 kg (186 lb 11.2 oz) 03/14/20 85.7 kg (189 lb) 01/05/20 85.3 kg (188 lb) Temp Readings from Last 3 Encounters: 04/05/20 36.9 ??C (98.4 ??F) (Temporal) 01/05/20 37.9 ??C (100.2 ??F) (Oral) 10/06/19 37 ??C (98.6 ??F) (Oral) BP Readings from Last 3 Encounters: 04/05/20 153/87 03/14/20 150/78 01/05/20 (!) 161/101 Pulse Readings from Last 3 Encounters: 04/05/20 63 03/14/20 61 01/05/20 66 Pertinent Lab values: Lab Results Component Value Date NA 142 04/05/2020 K 4.0 04/05/2020 CL 105 04/05/2020 CO2 27 04/05/2020 BUN 15 04/05/2020 CREATININE 0.89 04/05/2020 GLUCOSE 105 04/05/2020 CALCIUM 9.2 04/05/2020 Lab Results Component Value Date ALT 12 04/05/2020 AST 12 04/05/2020 ALKPHOS 100 04/05/2020 BILITOT 0.6 04/05/2020 BILIDIR 0.1 03/20/2017 ALBUMIN 4.2 04/05/2020 PROT 6.5 04/05/2020 Lab Results Component Value Date WBC 5.3 04/05/2020 HGB 12.8 (L) 04/05/2020 HCT 39.2 (L) 04/05/2020 MCV 92.9 04/05/2020 PLATELET 236 04/05/2020 No results found for: HA1C Immunization History Administered Date(s) Administered ??? Pneumococcal Polyvalent 03/09/2014 Assessment and Recommendations: Title Type of Medication Management: chronic disease management Referred By: provider Recipient: beneficiary Provider: plan sponsor pharmacist Method of Contact: by telephone Cognitive Ability: good Cognitive Impairment Status Verified this Year: no Drug Interactions Provided the patient with educational material regarding drug interactions: yes Patient Counseling Counseled the patient on the following: reviewed medication changes since last visit, medication safety precautions education provided, drug interaction education provided to patient, doses and administration discussed, possible adverse effects and management discussed, possible drug and OTC drug and food interactions discussed, lab monitoring and follow-up discussed, therapeutic rationale discussed, cost of medications and cost implications discussed, adherence and missed doses discussed, pharmacy contact information discussed, monitoring medication discussed, over the counter products discussed, timing of medications discussed Drug Medication Management Summary Topics discussed: reviewed medication changes since last visit, medication safety precautions education provided, drug interaction education provided to patient, doses and administration discussed, possible adverse effects and management discussed, possible drug and OTC drug and food interactions discussed, lab monitoring and follow-up discussed, therapeutic rationale discussed, cost of medications and cost implications discussed, adherence and missed doses discussed, pharmacy contact information discussed, monitoring medication discussed, over the counter products discussed, timing of medications discussed Number of adverse drug events identified: 1 Time spent: 31-45 min Treatment Outcomes 04/05/2020 1141 Disease progression: Stable Patient Overall Status: Stable Reviewed in detail with patient: Dose appropriateness based on recommended standard dosing Current medication list including OTC medications Medication and disease problems Allergies Comorbid conditions/ Problem List Past adverse events if any Special needs of the patient including physical and cognitive limitations Goals of therapy and management strategies Warnings, precautions, and contraindications Side effects Drug-drug and drug-food interactions Administration instructions including dose, frequency and method Handling, storage, and disposal Verifying expiration dates on products before use Rotating medication inventory to use oldest product first Relevant lab data Patient verbalizes understanding and is able to read-back instructions on self-administration/injection, proper storage, drug stability, importance of adherence and management strategies, side effectavoidance and mitigation strategies, and interruptions in therapy: Yes Physical and Cognitive Assessment: Functional limitations identified: no Cognitive limitations identified: no Concern regarding orientation/memory: no Concern with reasoning/judgement: no Is patient a fall risk: no Other needed information: no Social Assessment: Does the patient have a primary healthcare recruiter? no Does the patient have an emergency contact on file: Yes Does patient need referral to director of social services: No Does patient need referral to advocacy group: No Home Health Assessment: Is the patient in a safe home environment? Yes Is the patient able to store their medication as directed? Yes Does the patient have a support network at home? Yes Reviewed potential home safety hazards with patient: No Economic Assessment: Patient is agreeable to medication copay: Yes Copay Amount: $24.30 Day Supply: 30 days Date Needed: ~04/18/20 Copay assistance required: no Therapy Assessment: Current Medication Dosing/Route/Frequency: Zytiga 1000 mg by mouth once daily Appropriate therapy: Yes Patient's Problems/Needs: Refill reminders, follow-up with adherence and side- effect management Expected outcome: Slow progression of disease Patient Goals: Hematology/Oncology related goals may include remission, palliative or hospice care, a bridge to future surgery, transplant, and radiation or infusion therapy. Patient's specific desired goal: Slow progression of disease while minimizing side-effects as assessed at each refill call and clinical follow-up appointment. Measured by: PSA, side-effects, scans Time-frame to meet goal: As assessed at each clinical follow-up appointment and refill call. Care Plan Reviewed and Approved by both Pharmacist and Patient: Yes Interventions (if applicable): No Additional care/services needed: no Educational information or adherence tools provided: Yes Additional equipment/supplies required: no Monitoring requirements for prescribed medication: CBC, CMP, BP, side-effects, adherence Patient Status and Counseling: Is the patient experiencing pain? Not assessed Relevant monitoring results reviewed for bone marrow suppression, opportunistic infection, tumor lysis syndrome, metabolic disturbance and end organ dysfunction yes - labs from 04/05/20 reviewed Pharmacist follow-up needed: Yes Patient Satisfaction with care/services provided: Yes Informed patient of specialty pharmacy services: Yes -Patient will be provided with welcome packet: Yes Date to be provided: Pending first fill Delivery Method: Mail -Patient will be provided with Rights & Responsibilities: Yes Date to be provided: Pending first fill Delivery Method: Mail -Patient is aware a licensed pharmacist is available 24 hours a day, 7 days a week to discuss medication-related questions or concerns: Yes -Patient verbalizes understanding of the common side effect profile of their medication. The patient is able to call 911 or seek urgent care if signs/symptoms of allergy or harmful adverse reactions occur: Yes Patient understands any changes to current drug regimen were made at the appointment and that [facility] is providing recommendations (summary located at top of note) for provider review and follow up. Curly Andres RPH 04/05/20 11:41 AM documented in this encounter Plan of Treatment Upcoming Encounters Date Type Department Care Team (Latest Contact Info) Description 09/29/2024 4:30 PM [facility] Hospital [place] [address] Lizet Wilkes MD [facility] [place] [address] 09/29/2024 4:30 PM EST - 09/29/2024 5:00 PM EST Surgery Gastroenterology at [place] [address] Lizet Wilkes MD [facility] [address] EGD, UPPER GI ENDOSCOPY (WRVU 2.09) 11/09/2024 10:00 AM EST Laboratory Appointment Lab at [facility] Hematology Oncology [address] [place] [address] 11/09/2024 11:00 AM EST Office Visit Hematology and Oncology at [place] [phone] Faith Caba MD [facility] [address] [place] [address] 11/09/2024 12:00 PM EST Appointment Hematology and Oncology at [place] [phone] Scheduled Procedures Name Priority Associated Diagnoses Date/Ti [...] filedocumented in this encounter Care Teams Rn Document Improvement Specialist Relationship Specialty Start Date End Date Kennedi Shaver MD [facility] [address] [place] [address] PCP - General 08/22/10 08/01/20 documented as of this encounter
--- OUTSIDE RECORDS SUMMARY | 2024-09-11 15:26 | XMS_ITS | Encounter Summary ---
Author Organization [facility] Address [facility] [place] [address] Care Team Providers Care Metal Cnc Operator Name Role Phone Kennedi Shaver MD Primary Care Provider [phone] Encounter Details Date Type Department Care Team (Late st Contact Info) Description 03/14/2020 Orders Only Sleep Center at [place] [address] [place] [address] Charlotte Euceda MD [facility] [place] [address] Social History Tobacco Use Types Packs/Day Years [...] Notes * Charlotte Euceda MD - 03/14/2020 11:08 AM EDT Polysomnogram Order Form Room # Technologist Assignment: To be read by on PSG Patient Information Date of study: : 1945 Name: Chidi Carbone Height: 71in Weight: 189# 74 y.o. male Normal sleep hours: 11-6 Arrival Time: Physical/Mobility Limitations: No Cognitive Limitations: No Requires Male Tech: No Requires Female Tech: No Requires 1:1 Care: No Requires Parent/Caregiver: [place] of Parent/Caregiver staying: Using Home Oxygen: No At home sleeps in: Bed PSG Indications: some snoring, fatigue -- PSG to assess for GIRISH Other Medical Conditions: HTN, prostate CA PSG Orders Type of study: diagnostic PSG Additional data required: no Special instructions: yes -- can take ambien at bedtime *Initiate oxygen per previously determined protocols unless otherwise specified. documented in this encounter Plan of Treatment Upcoming Encounters Date Type Department Care Team (Latest Contact Info) Description 09/29/2024 4:30 PM EST Hospital [place] [address] Lizet Wilkes MD [facility] [place] [address] 09/29/2024 4:30 PM EST - 09/29/2024 5:00 PM EST [place] [address] Lizet Wilkes MD [facility] [place] [address] EGD, UPPER GI ENDOSCOPY (WRVU 2.09) 11/09/2024 10:00 AM EST Laboratory Appointment Lab at [facility] Hematology Oncology [address] [place] [phone] 11/09/2024 11:00 AM EST Office Visit [place]ology [place] [address] Faith Caba MD [facility] [address] [place] [address] 11/09/2024 12:00 PM EST Appointment [place]ology [place] [address] Scheduled Procedures Name Priority Associated Diagnoses Date/Ti me EGD, UPPER GI ENDOSCOPY (WRVU 2.09) Gastroesophageal reflux disease with esophagitis, unspecified whether hemorrhage 09/29/2024 4:30 PM EST documented as of this encounter Visit Diagnoses Not on filedocumented in this encounter Care Teams Metal Cnc Operator Relationship Specialty Start Date End Date Kennedi Shaver MD [facility] [facility] [address] [place] [address] PCP - General 08/22/10 08/01/20 documented as of this encounter
--- OUTSIDE RECORDS SUMMARY | 2024-09-11 15:26 | XMS_ITS | Encounter Summary ---
Author Organization [facility] [place] [address] Care Team Providers Care Information Systems Manager Name Role Phone Kennedi Shaver MD Primary Care Provider [phone] Reason for Visit * Reason Onset Date Comments Medication Refill 04/08/2020 Encounter Details Date Type Department Care Team (Late st Contact Info) Description 04/08/2020 Refill Hematology [place] [phone] Faith Caba MD [facility] DR HEMATOLOGY [place] [address] Social History Tobacco Use Types Packs/Day Years [...] [facility] Hospital Encounter [place] [address] Lizet Wilkes MD [facility] [place] [address] 09/29/2024 4:30 PM EST - 09/29/2024 5:00 PM EST Surgery [place] [address] Lizet Wilkes MD [facility] [place] [address] EGD, UPPER GI ENDOSCOPY (WRVU 2.09) 11/09/2024 10:00 AM EST Laboratory Appointment Lab at [facility] Hematology Oncology [address] [place] [phone] 11/09/2024 11:00 AM EST Office Visit Hematology [place] [phone] Faith Caba MD [facility] DR HEMATOLOGY [place] [address] 11/09/2024 12:00 PM EST Appointment Hematology [place] [phone] Scheduled Procedures Name Priority Associated Diagnoses Date/Ti me EGD, UPPER GI ENDOSCOPY (WRVU 2.09) Gastroesophageal reflux disease with esophagitis, unspecified whether hemorrhage 09/29/2024 4:30 PM EST documented as of this encounter Goals Goal Patient Goal Type Associated Problems Recent Progress Patient-Stated? Author [facility] Medication Compliance and Understanding Patient Facing Action Plan Curly Nicolas, [facility] Note: The patient? s goal is to continue positive results of oral chemotherapy by maintaining improved labs PSA or stable scans in clinic for the upcoming year. documented as of this encounter Visit Diagnoses Not on filedocumented in this encounter Care Teams Information Systems Manager Relationship Specialty Start Date End Date Kennedi Shaver MD [facility] [address] [place] [address] PCP - General 08/22/10 08/01/20 documented as of this encounter
--- OUTSIDE RECORDS SUMMARY | 2024-09-11 15:27 | XMS_ITS | Encounter Summary ---
Author Organization [facility] [place] [address] Care Team Providers Care Publications Sales Representative Name Role Phone Kennedi Shaver MD Primary Care Provider [phone] Reason for Visit * Reason Comments Follow-up Encounter Details Date Type Department Care Team (Late st Contact Info) Description 12/30/2018 10:00 AM EDT Office Visit H[place]ology [place] [address] Faith Caba MD [facility] DR HEMATOLOGY [place] [address] Deborah Hector, [address] [place] [address] Alvaro Valdez MD [facility] DR HEMATOLOGY/[place] [address] Malignant neoplasm of prostate; Irregular heart rate Social History Tobacco Use Types Packs/Day Years [...] Sign Reading Time Taken Comments Blood Pressure 158/85 12/30/2018 9:57 AM EDT Pulse 65 12/30/2018 9:57 AM EDT Temperature 37 ??C (98.6 ??F) 12/30/2018 9:57 AM EDT Respiratory Rate 14 12/30/2018 11:23 AM EDT Oxygen Saturation 100% 12/30/2018 9:57 AM EDT Inhaled Oxygen Concentration - - Weight 91.4 kg (201 lb 9.6 oz) 12/30/2018 9:57 A M EDT Height 181.6 cm (5' 11.5) 12/30/2018 9:57 AM ED T Body Mass Index 27.73 12/30/2018 9:57 AM EDT documented in this encounter Progress Notes * Deborah Hector, BARTOLO - 12/30/2018 10:00 AM EDT Images from the original note were not included. N [facility] HEM ONC [facility] [phone] ?? ONCOLOGY FOLLOW UP VISIT DIAGNOSIS: [...] 04/2017 HPI: Chidi Carbone presents today for f/u and consideration of Lupron injection. Cont taking Zytiga and pred as directed. 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 Energy level - hanging in there, catches up on sleep on Sundays. Hot flushes same, approx 1-2x/day, occ wakes him early in the morning, not disruptive. Urinary sx stable, den dysuria or hematuria. Chronic knee pain, nothing new. No other focal complaints. REVIEW OF SYSTEMS: As noted in HPI; otherwise negative. PAST MEDICAL HISTORY: 1. As above 2. GERD and Sol's esophagus S/p Alli Fundoplication 3. ELevated fasting glusoce 4. S/p distant appendectomy 5. S/p tonsilectomy MEDS: Medications 12/30/18 1000 Medication Sig Taking? finasteride (PROSCAR) 5 mg Tablet Yes ZYTIGA 500 mg Tablet TAKE 2 TABLETS BY MOUTH EVERY DAY Yes predniSONE (DELTASONE) 5 mg Tablet Take 1 tablet by mouth daily. Yes ibuprofen (ADVIL;MOTRIN) 200 mg Tablet Take 200 mg by mouth every 6 hours as needed for Pain. Yes pantoprazole (PROTONIX) 20 mg Tablet, Delayed Release (E.C.) Take 20 mg by mouth 2 times daily. Yes DUTASTERIDE/TAMSULOSIN HCL (ARNOL ORAL) Take by mouth daily. Yes ZOLPIDEM TARTRATE (AMBIEN ORAL) Yes acetaminophen (TYLENOL) 650 mg/20.3 mL oral liquid Take 20.3 mLs by mouth every 4 hours as needed. Patient not taking: Reported on 07/08/2018 ALLERGY: No Known Allergies FAMILY HX: Reviewed no change SOCIAL HX: Reviewed - no change PHYSICAL EXAM: BP 158/85 (Patient Position: Sitting) Pulse 65 Temp 37 ??C (98.6 ??F) (Temporal) Resp (!) 100 Ht 181.6 cm (5' 11.5) Wt 91.4 kg (201 lb 9.6 oz) SpO2 100% BMI 27.73 kg/m?? Wt Readings from Last 3 Encounters: 12/30/18 91.4 kg (201 lb 9.6 oz) 10/07/18 90 kg (198 lb 6.4 oz) 07/08/18 89.4 kg (197 lb 3.2 oz) PS=0 Constitutional: NAD HENT: Head: NCAT Eyes: Non-injected, anicteric. Neck: Normal ROM, supple. Cardiovascular: Irreg irreg rhythm, normal rate, no murmur. Resp: Effort normal. No respiratory distress. LSCTA bilat. Lymph: No palpable lymph nodes in cervical, supraclavicular, axillary or inguinal areas. Skin: Skin is warm and dry. No rash or lesions noted. No pallor. Musculoskeletal: Normal range of motion, ambulatory. Extremities: No distal edema noted. Neurological: Alert & oriented, no focal deficits. Psych: Conversant, normal mood and affect. Vitals reviewed. LABS: Normal CBC, CMP. PSA <0.01 (stable) IMAGING STUDIES: No new ASSESSMENT AND PLAN: Chidi Carbone has metastatic prostate cancer with extensive disease involving nodes and bones. He is on combination lupron+zytiga as first line therapy with very good clinical response. PSA now undetectable and he is asymptomatic. Tolerates Lupron reasonably well with mild hot flushes. Labs reviewed, okay to proceed with Lupron injection today. Cont current regimen. # Irreg HR: Pt reports he has noticed irreg hr occ, starting in past 3 months or so. Den chest/shoulder/jaw pain, SOB, dizziness/lightheadedness, or other concerning cardiac sx. Has not discussed w/PCP or other providers. Advised him to f/u with PCP for eval. I will route my note to her. He agrees to call her office for further eval. Plan: Return in 3 months for labs, f/u, and Lupron injection. Encouraged patient to call anytime inthe meantime with questions or concerns. Deborah Hector APRN Hematology/Oncology documented in this encounter Plan of Treatment Upcoming Encounters Date Type Department Care Team (Latest Contact Info) Description 09/29/2024 4:30 PM EST Hospital Encounter Gastroenterology at [place] [phone] Lizet Wilkes MD [facility] [place] [address] 09/29/2024 4:30 PM EST - 09/29/2024 5:00 PM EST [place] [phone] Lizet Wilkes MD [facility] [place] [address] EGD, UPPER GI ENDOSCOPY (WRVU 2.09) 11/09/2024 10:00 AM EST Laboratory Appointment Lab at [facility] Hematology Oncology [address] [place] [phone] 11/09/2024 11:00 AM EST Office Visit Hematology and Oncology at [place] [address] Faith Caba MD [facility] DR HEMATOLOGY [place] [address] 11/09/2024 12:00 PM EST Appointment Hematology and Oncology at [place] [phone] Scheduled Procedures Name Priority Associated Diagnoses Date/Ti me EGD, UPPER GI ENDOSCOPY (WRVU 2.09) Gastroesophageal reflux disease with esophagitis, unspecified whether hemorrhage 09/29/2024 4:30 PM EST documented as of this encounter Visit Diagnoses Diagnosis Malignant neoplasm of prostate Irregular heart rate Cardiac dysrhythmia, unspecified Gastroesophageal reflux disease with esophagitis, unspecified whether hemorrhage documented in this encounter Care Teams Publications Sales Representative Relationship Specialty Start Date End Date Kennedi Shaver MD [facility] [address] [place] [address] PCP - General 08/22/10 08/01/20 documented as of this encounter
--- OUTSIDE RECORDS SUMMARY | 2024-09-11 15:27 | XMS_ITS | Encounter Summary ---
Author Organization [facility] [place] [address] Care Team Providers Care Tie Up Worker Name Role Phone Kennedi Shaver MD Primary Care Provider [phone] Encounter Details Date Type Department Care Team (Late Contact Info) Description 08/31/2019 Telephone Hematology [place] [phone] Patricia James DRIVABILITY TECHNICIAN ROOM Social History Tobacco Use Types Packs/Day Years [...] Telephone Encounter - Patricia James RN - 08/31/2019 1:00 PM EST Message received from fiber worker: Willem Lake RN From PCP Dr Shaver office in [facility] [phone] Wants to know if Chidi is still taking prednisone Per last office note- continuing on zytiga/pred Willem notified pt remains on prednisone. Willem stated that PCP will renew script. documented in this encounter Plan of Treatment Upcoming Encounters Date Type Department Care Team (Latest Contact Info) Description 09/29/2024 4:30 PM EST Hospital Encounter [place] [phone] Lizet Wilkes MD [facility] [place] [address] 09/29/2024 4:30 PM EST - 09/29/2024 5:00 PM EST Surgery Gastroenterology at [place] [phone] Lizet Wilkes MD [facility] [place] [address] EGD, UPPER GI ENDOSCOPY (WRVU 2.09) 11/09/2024 10:00 AM EST Laboratory Appointment Lab at [facility] Hematology Oncology [address] [place] [phone] 11/09/2024 11:00 AM EST Office Visit Hematology [place] [phone] Faith Caba MD [facility] DR HEMATOLOGY [place] [address] 11/09/2024 12:00 PM EST Appointment Hematology [place] [phone] Scheduled Procedures Name Priority Associated Diagnoses Date/Ti me EGD, UPPER GI ENDOSCOPY (WRVU 2.09) Gastroesophageal reflux disease with esophagitis, unspecified whether hemorrhage 09/29/2024 4:30 PM EST documented as of this encounter Visit Diagnoses Not on filedocumented in this encounter Care Teams Tie Up Worker Relationship Specialty Start Date End Date Kennedi Shaver MD [facility] [address] [place] [address] PCP - General 08/22/10 08/01/20 documented as of this encounter
--- OUTSIDE RECORDS SUMMARY | 2024-09-11 15:27 | XMS_ITS | Encounter Summary ---
Author Organization [facility] [place] [address] Care Team Providers Care Senior Datastage Developer Name Role Phone Kennedi Shaver MD Primary Care Provider [phone] Reason for Visit * Treatment/Therapy Plan Authorization (Routine) - Specialty Diagnoses / Procedures Referred By Blaine peralta Referred To Contact Diagnoses Neoplasm of prostate, distant metastasis staging category M1c: distant metastasis with or without metastasis to bone Procedures TC LEUPROLIDE ACETATE 7.5MG, FOR DEPOST SUSPENSION (LUPRON DEPOT) Faith Caba MD [facility] [address] [place] [address] [facility] [place] [address] [place] [address] Referral ID Status Reason Start Date Expiration Date V isits Requested Visits Authorized [id number] 07/07/2018 08/09/2020 30 30 Encounter Details Date Type Department Care Team (Latest Contact Info) Description 07/07/2019 9:15 AM EDT - 07/07/2019 11:59 PM EDT Hospital Encounter Hematology [place] [address] Neoplasm of prostate, distant metastasis staging category [...] Progress Notes * Stephanie Woodson RN - 07/07/2019 11:34 AM EDT Patient Name: Chidi Carbone Patient Age: 73 y.o. Birthdate: 1945 Admit date: 07/07/2019 Attending Physician: No att. providers found Access visit. See MAR and/or flowsheet. documented in this encounter Plan of Treatment Upcoming Encounters Date Type Department Care Team (Latest Contact Info) Description 09/29/2024 4:30 PM EST Hospital En[place] [address] Lizet Wilkes MD [facility] [place] [address] 09/29/2024 4:30 PM EST - 09/29/2024 5:00 PM EST [place] [address] Lizet Wilkes MD [facility] [place] [address] EGD, UPPER GI ENDOSCOPY (WRVU 2.09) 11/09/2024 10:00 AM EST Laboratory Appointment Lab at [facility] Hematology Oncology [address] [place] [phone] 11/09/2024 11:00 AM EST Office Visit H[place]ology [place] [phone] Faith Caba MD [facility] DR HEMATOLOGY [place] [address] 11/09/2024 12:00 PM EST Appointment Hematology [place] [address] Scheduled Procedures Name Priority Associated Diagnoses Date/Ti [...] 22.5 mg, Intramuscular, ONCE, 1 dose, On Sat07/07/19 at 1115, Routine, This agent is restricted to outpatient use. Is this drug being given as an outpatient? Yes Given 07/07/2019 11:32 AM EDT 22.5 mg Left Gluteal documented in this encounter Care Teams Senior Datastage Developer Relationship Specialty Start Date End Date Kennedi Shaver MD [address] [place] [address] PCP - General 08/22/10 08/01/20 documented as of this encounter
--- OUTSIDE RECORDS SUMMARY | 2024-09-11 15:27 | XMS_ITS | Encounter Summary ---
Author Organization [facility] Address [facility] [place] [address] Care Team Providers Care Instructor Nurse Name Role Phone Kennedi Shaver MD Primary Care Provider [phone] Reason for Referral * Consultation (Routine) - Closed Specialty Diagnoses / Procedures Referred By Blaine peralta Referred To Contact Internal Medicine Diagnoses Occasionally has difficulty accessing primary care provider Deborah Hector APRN [address] [place] [address] DR HEMATOLOGY [place] [address] [phone] Referral ID Status Reason Start Date Expiration Date V isits Requested Visits Authorized [id number] Closed Consult, Test & Treat 03/31/2019 03/30/2020 1 1 Encounter Details Date Type Department Care Team (Late st Contact Info) Description 03/31/2019 10:00 AM EDT Office Visit [place]ematology [place] [phone] Faith Caba MD [facility] [address] [place] [address] Deborah Hector APRN [address] [place] [address] DR HEMATOLOGY [place] [address] Neoplasm of prostate, distant metastasis staging category M1c: distant metastasis with or without metastasis to bone; Fatigue, unspecified type; Occasionally has difficulty accessing primary care provider Social History Tobacco Use Types Packs/Day Years [...] Sign Reading Time Taken Comments Blood Pressure 154/85 03/31/2019 9:50 AM EDT Pulse 71 03/31/2019 9:50 AM EDT Temperature 36.9 ??C (98.4 ??F) 03/31/2019 9:50 AM ED T Respiratory Rate 20 03/31/2019 9:50 AM EDT Oxygen Saturation 98% 03/31/2019 9:50 AM EDT Inhaled Oxygen Concentration - - Weight 86.2 kg (190 lb) 03/31/2019 9:50 AM EDT Height 179.8 cm (5' 10.79) 03/31/2019 9:50 AM E DT Body Mass Index 26.66 03/31/2019 9:50 AM EDT documented in this encounter Progress Notes * Deborah Hector APRN - 03/31/2019 10:00 AM EDT Images from the original note were not included. N [facility]EM [place]C [facility] [phone] ?? ONCOLOGY FOLLOW UP VISIT DIAGNOSIS: Metastatic [...] Cont taking Zytiga and pred as directed. Chief complaint is fatigue. Close to exhaustion. 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 Has been moving house from [place] to [place]. Eating and sleeping well. Den fevers/chills. Has lost 10# since last visit, but is okay with it, thinks likely due to increased physical exertion with moving. Hot flushes subsiding. Saw his PCP after our last visit when I detected an irreg HR, says she examined himand did EKG, all wnl. Den cp/palp, edema. Urinary sx stable, bowels wnl, den pain or other focal complaints. REVIEW OF SYSTEMS: As noted in HPI; otherwise negative. PAST MEDICAL HISTORY: 1. As above 2. GERD and Sol's esophagus S/p Alli Fundoplication 3. ELevated fasting glusoce 4. S/p distant appendectomy 5. S/p tonsilectomy MEDS: Medications 12/30/18 1102 Medication Sig Taking? tamsulosin (FLOMAX) 0.4 mg Capsule finasteride (PROSCAR) 5 mg Tablet ZYTIGA 500 mg Tablet TAKE 2 TABLETS BY MOUTH EVERY DAY predniSONE (DELTASONE) 5 mg Tablet Take 1 tablet by mouth daily. ibuprofen (ADVIL;MOTRIN) 200 mg Tablet Take 200 mg by mouth every 6 hours as needed for Pain. pantoprazole (PROTONIX) 20 mg Tablet, Delayed Release (E.C.) Take 20 mg by mouth 2 times daily. acetaminophen (TYLENOL) 650 mg/20.3 mL oral liquid Take 20.3 mLs by mouth every 4 hours as needed. Patient not taking: Reported on 07/08/2018 DUTASTERIDE/TAMSULOSIN HCL (ARNOL ORAL) Take by mouth daily. ZOLPIDEM TARTRATE (AMBIEN ORAL) ALLERGY: No Known Allergies FAMILY HX: Reviewed no change SOCIAL HX: Reviewed - no change PHYSICAL EXAM: BP 154/85 (Patient Position: Sitting) Pulse 71 Temp 36.9 ??C (98.4 ??F) (Temporal) Resp 20 Ht 179.8 cm (5' 10.79) Wt 86.2 kg (190 lb) SpO2 98% BMI 26.66 kg/m?? Wt Readings from Last 3 Encounters: 12/30/18 91.4 kg (201 lb 9.6 oz) 10/07/18 90 kg (198 lb 6.4 oz) 07/08/18 89.4 kg (197 lb 3.2 oz) PS=0 Constitutional: NAD HENT: Head: NCAT Eyes: Non-injected, anicteric. Neck: Normal ROM, supple. Cardiovascular: RRR, no [...] PSA remains undetectable and he is asymptomatic. Tolerates Lupron reasonably well with mild hot flushes. Labs reviewed, okay to proceed with Lupron injection today. Cont current regimen. # Fatigue: Discussed potential different etiologies. Fatigue is certainly known SE of Lupron and abiraterone. Pt has been very busy with moving. Advised discussing w/PCP (seeing her tomorrow) as fatigue can be compounded by thyroid/other issues. He agrees. Advised importance of pacing self, stayingwell- hydrated, millie in hot weather and given physical activity, eating and sleeping well, conservingenergy. Will re-eval once settled down after move, if no other suspected etiology (thyroid/other) and fatigue persists, could consider abiraterone dose reduction. Pt prefers to stay on full dose for now given excellent response. I agreed. Plan: Return in 3 months for labs, f/u, and Lupron injection. Pt requests referral to Primary Care here (since moving). I will put that in. Encouraged patient to call anytime in the meantime with questions or concerns. Deborah Hector APRN Hematology/Oncology documented in this encounter Plan of Treatment Upcoming Encounters Date Type Department Care Team (Latest Contact Info) Description 09/29/2024 4:30 PM EST Hospital En[place] [address] Lizet Wilkes MD [facility] [place] [address] 09/29/2024 4:30 PM EST - 09/29/2024 5:00 PM EST [place] [address] Lizet Wilkes MD [facility] [place] [address] EGD, UPPER GI ENDOSCOPY (WRVU 2.09) 11/09/2024 10:00 AM EST Laboratory Appointment Lab at [facility] Hematology Oncology [address] [place] [phone] 11/09/2024 11:00 AM EST Office Visit [place]ematology [place] [address] Faith Caba MD [facility] [place] [address] 11/09/2024 12:00 PM EST Appointment [place]ematology [place] [address] Scheduled Procedures Name Priority Associated Diagnoses Date/Ti me EGD, UPPER GI ENDOSCOPY (WRVU 2.09) Gastroesophageal reflux disease with esophagitis, unspecified whether hemorrhage 09/29/2024 4:30 PM EST Scheduled Referrals Name Type Priority Associated Diagnoses Orde r Schedule Referral to General Internal Medicine Outpatient Referral Routine Occasionally has difficulty accessing primary care provider Ordered: 03/31/2019 documented as of this encounter Visit Diagnoses Diagnosis Neoplasm of prostate, distant metastasis staging category M1c: distant metastasis with or without metastasis to bone Fatigue, unspecified type Occasionally has difficulty accessing primary care provider Gastroesophageal reflux disease with esophagitis, unspecified whether hemorrhage documented in this encounter Care Teams Instructor Nurse Relationship Specialty Start Date End Date Kennedi Shaver MD [facility] [address] [facility] [address] [place] [address] PCP - General 08/22/10 08/01/20 documented as of this encounter
--- OUTSIDE RECORDS SUMMARY | 2024-09-11 15:27 | XMS_ITS | Encounter Summary ---
[place] [address] Care Team Providers Care Marine Electrician Name Role Phone Kennedi Shaver MD Primary Care Provider [phone] Reason for Visit * Treatment/Therapy Plan Authorization (Routine) - Specialty Diagnoses / Procedures Referred By Blaine peralta Referred To Contact Diagnoses Neoplasm of prostate, distant metastasis staging category M1c: distant metastasis with or without metastasis to bone Procedures TC LEUPROLIDE ACETATE 7.5MG, FOR DEPOST SUSPENSION (LUPRON DEPOT) Faith Caba MD [facility] DR HEMATOLOGY [place] [address] [facility] Hem Onc [address] [place] [address] Referral ID Status Reason Start Date Expiration Date V isits Requested Visits Authorized [id number] 07/07/2018 08/09/2020 30 30 Encounter Details Date Type Department Care Team (Latest Contact Info) Description 10/07/2018 12:15 PM EST - 10/07/2018 11:59 PM EST Hospital Encounter [place] [address] Neoplasm of prostate, distant metastasis staging category [...] 50 mg by mouth as needed. 06/14/2014 finasteride (PROSCAR) 5 mg Tablet Take 5 mg by mouth daily. 06/06/2018 08/17/2022 ZYTIGA 500 mg Tablet TAKE 2 TABLETS BY MOUTH EVERY DAY 60 tablet 11 05/21/2018 05/25/2019 predniSONE (DELTASONE) 5 mg Tablet Take 1 tablet by mouth daily. 30 tablet 11 05/06/2018 08/17/2022 ibuprofen (ADVIL;MOTRIN) 200 mg Tablet Take 200 mg by mouth every 6 hours as needed for Pain. 06/29/2019 pantoprazole (PROTONIX) 20 mg Tablet, Delayed Release (E.C.) Take 20 mg by mouth 2 times daily. 10/04/2020 acetaminophen (TYLENOL) 650 mg/20.3 mL oral liquid Take 20.3 mLs by mouth every 4 hours as needed. 03/09/2014 06/29/2019 DUTASTERIDE/TAMSULOSIN HCL (ARNOL ORAL) Take by mouth daily. ZOLPIDEM TARTRATE (AMBIEN ORAL) 12/05/2010 10/04/2020 documented as of this encounter Progress Notes * Stephanie Woodson RN - 10/07/2018 11:42 AM EST Patient Name: Chidi Carbone Patient Age: 72 y.o. Birthdate: 1945 Admit date: 10/07/2018 Attending Physician: Chritsina att. providers found Access visit. See MAR and/or flowsheet. documented in this encounter Plan of Treatment Upcoming Encounters Date Type Department Care Team (Latest Contact Info) Description 09/29/2024 4:30 PM EST Hospital Encounter Gastroenterology at [place] [phone] Lizet Wilkes MD [facility] [place] [address] 09/29/2024 4:30 PM EST - 09/29/2024 5:00 PM EST [place] [phone] Lizet Wilkes MD [facility] [place] [address] EGD, UPPER GI ENDOSCOPY (WRVU 2.09) 11/09/2024 10:00 AM EST Laboratory Appointment Lab at [facility] Hematology Oncology [address] [place] [phone] 11/09/2024 11:00 AM EST Office Visit Hematology and Oncology at [place] [phone] Faith Caba MD [facility] DR [place] [address] 11/09/2024 12:00 PM EST Appointment Hematology [place] [address] Scheduled Procedures Name Priority Associated Diagnoses Date/Ti va EGD, UPPER GI ENDOSCOPY (WRVU 2.09) Gastroesophageal [...] 22.5 mg, Intramuscular, ONCE, 1 dose, On Sat10/07/18 at 1145, Routine, This agent is restricted to outpatient use. Is this drug being given as an outpatient? Yes Given 10/07/2018 11:42 AM EST 22.5 mg Right Gluteal documented in this encounter Care Teams Marine Electrician Relationship Specialty Start Date End Date Kennedi Shaver MD [facility] [address] [place] [address] PCP - General 08/22/10 08/01/20 documented as of this encounter
--- OUTSIDE RECORDS SUMMARY | 2024-09-11 15:27 | XMS_ITS | Encounter Summary ---
Author Organization [facility] [place] [address] Care Team Providers Care Risk Control Specialist Name Role Phone Kennedi Shaver MD Primary Care Provider [phone] Encounter Details Date Type Department Care Team (Latest Contact Info) Description 07/07/2019 9:00 AM EDT - 07/07/2019 9:14 AM EDT Hospital Encounter [place]ology [place] [address] Neoplasm of prostate, distant metastasis staging category [...] 4:30 PM EST Hospital En[place] [phone] Lizet Wilkes MD [facility] [place] [address] 09/29/2024 4:30 PM EST - 09/29/2024 5:00 PM EST [place] [phone] Lizet Wilkes MD [facility] [place] [address] EGD, UPPER GI ENDOSCOPY (WRVU 2.09) 11/09/2024 10:00 AM EST Laboratory Appointment Lab at [facility] [place]ematology Oncology [address] [place] [phone] 11/09/2024 11:00 AM EST Office Visit H[place]ology [place] [phone] Faith Caba MD [facility] [place] [address] 11/09/2024 12:00 PM EST Appointment Hematology [place] [phone] Scheduled Procedures Name Priority Associated Diagnoses Date/Ti me EGD, UPPER GI ENDOSCOPY (WRVU 2.09) Gastroesophageal reflux disease with esophagitis, unspecified whether hemorrhage 09/29/2024 4:30 PM EST documented as of this encounter Procedures Procedure Name Priority Date/Time Associated Diagnosis Comments HEMOGRAM Routine 07/07/2019 9:33 AM EDT Neoplasm of prostate, distant metastasis staging category M1c: distant metastasis with or without metastasis to bone DIFFERENTIAL, AUTOMATED Routine 07/07/2019 9:33 AM EDT Neoplasm of prostate, distant metastasis staging category M1c: distant metastasis with or without metastasis to bone HC CBC,PLT & AUTO DIFF Routine 9 9:33 AM EDT Neoplasm of prostate, distant metastasis staging category M1c: distant metastasis with or without metastasis to bone HC PROSTATE SPECIFIC ANTIGEN Routine 07/07/2019 9:33 AM EDT Neoplasm of prostate, distant metastasis staging category M1c: distant metastasis with or without metastasis to bone COMPREHENSIVE METABOLIC PANEL Routine 07/07/2019 9:33 AM EDT Neoplasm of prostate, distant metastasis staging category M1c: distant metastasis with or without metastasis to bone documented in this encounter Results * Differential, Automated (07/07/2019 9:33 AM EDT) Neutrophil % 69.1 % [facility] Neutrophil Absolute 4.62 1.70 - 6.10 x10(3)/[facility] LAB[facility] Lymph % 19.0 % [facility] Lymphocytes Abs 1.3 0.9 - 3.2 x10(3)/[facility] LAB[facility] Monocyte % 9.0 % [facility] Monocyte Abs 0.6 0.3 - 0.9 x10(3)/[facility] Eos % 2.1 % [facility] Eosinophils Abs 0.1 0.0 - 0.4 x10(3)/[facility] Basophil % 0.4 % [facility] Baso Absolute 0.0 0.0 - 0.1 x10(3)/[facility] LAB[facility] Immature Gran % 0.40 % [...] Immature Gran Absolute 0.03 0.00 - 0.04 x10(3)/[facility] Blood specimen (specimen) 07/07/2019 9:33 AM EDT 07/07/2019 9:40 AM EDT Narrative Resulting Agency Comment Spec In Lab Deborah Hector PHARMACY TECHNICIAN PROGRAM DIRECTOR HEMATOLOGY ORDERAB LES Performing Organization Address City/State/[facility] Co de Phone Number [facility] [place] [address] * (ABNORMAL) Hemogram (07/07/2019 9:33 AM EDT) White Blood Cell 6.7 4.0 - 9.5 x10(3)/ L [facility] Red Blood Cell 4.38(L) 4.58 - 5.54 x10(6)/ L [facility] Hemoglobin 13.0(L) 13.7 - 16.5 gm/dL [facility] Hematocrit 38.6(L) 40.5 - 48.5 % [facility] Mean Cell Volume 88.1 82.9 - 93.1 fL [facility] Mean Cell Hemoglobin 29.7 27.5 - 32.1 pg [facility] Mean Cell Hemoglobin Concentration 33.7 32.0 - 35.7 gm/dL [facility] Platelet 253 145 - 357 x10(3)/ L [facility] RDW Standard Deviation 42.2 36.0 - 45.0 fL [facility] RDW coefficient of variation 12.9 11.4 - 13.8 % [facility] Mean Platelet Volume 9.5 7.6 - 12.9 fL [facility] NRBC% auto 0.0 % [facility] NRBC Absolute 0.000 0.000 - 0.000 x10(3)/mc L [facility] Blood specimen (specimen) 07/07/2019 9:33 AM EDT 07/07/2019 9:40 AM EDT Narrative Resulting Agency Comment Spec In Lab Deborah Hector PHARMACY TECHNICIAN PROGRAM DIRECTOR HEMATOLOGY ORDERAB LES [facility] [place] [address] * Comprehensive metabolic panel (non-fasting) (07/07/2019 9:33 AM EDT) Glucose 123 65 - 199 mg/dL [facility] Comment:Diabetes: >=200 mg/d L plus symptoms Blood Urea Nitrogen 16 10 - 20 mg/dL [facility] Creatinine 0.82 0.80 - 1.50 mg/dL [facility] Sodium 139 135 - 145 mmol/L [facility] questions. Chloride 103 98 - 107 mmol/L [facility] Carbon Dioxide 24 22 - 31 mmol/L [facility] Anion Gap 12 5 - 15 mmol/L [facility] Calcium 9.3 8.5 - 10.5 mg/dL [facility] Protein, Total 7.1 6.1 - 8.0 gm/dL [facility] Albumin 4.4 3.2 - 5.2 gm/dL [facility] Aspartate Aminotransferase 15 0 - 39 unit/L [facility] Alanine Aminotransferase 7 0 - 55 unit/L [facility] Alkaline Phosphatase 115 40 - 130 unit/L [facility] Bilirubin, Total 0.6 0.2 - 1.3 mg/dL [facility] Est Glomerular Filtration Rate 87 >=60 mL/min/1. 73 m?? [facility] Comment: The eGFR was calculated using the CKD-EPI equation. As with all creatinine based estimates of kidney function, eGFR values calculated with the CKD-EPI equation are not accurate in patients with acute kidney failure, extremes of body mass or the acutely ill. [email or web address] eGFR 101 >=60 mL/min/1. 73 m?? [facility] Comment: The eGFR was calculated using the CKD-EPI equation. As with all creatinine based estimates of kidney function, eGFR values calculated with the CKD-EPI equation are not accurate in patients with acute kidney failure, extremes of body mass or the acutely ill. [email or web address] Blood specimen (specimen) 07/07/2019 9:33 AM EDT 07/07/2019 9:40 AM EDT Narrative Resulting Agency Comment Spec In Lab Deborah Hector PHARMACY TECHNICIAN PROGRAM DIRECTOR CHEMISTRY ORDERABL ES Performing Organization Address [facility] [place] [address] * PSA (07/07/2019 9:33 AM EDT) Prostate Specific Antigen (Ultrasensitiv e) <0.01 0.00 - 4.00 ng/mL [facility] Blood specimen (specimen) 07/07/2019 9:33 AM EDT 07/07/2019 9:40 AM EDT Narrative Resulting Agency Comment Spec In Lab Deborah Hector PHARMACY TECHNICIAN PROGRAM DIRECTOR CHEMISTRY ORDERABL ES Performing Organization Address City/[facility]/ZIP Co de Phone [place] [address] documented in this encounter Visit Diagnoses Diagnosis Neoplasm of prostate, distant metastasis staging category M1c: distant metastasis with or without metastasis to bone Gastroesophageal reflux disease with esophagitis, unspecified whether hemorrhage documented in this encounter Care Teams Risk Control Specialist Relationship Specialty Start Date End Date Kennedi Shaver MD [address] [place] [address] PCP - General 08/22/10 08/01/20 documented as of this encounter
--- OUTSIDE RECORDS SUMMARY | 2024-09-11 15:27 | XMS_ITS | Encounter Summary ---
Author Organization [facility] [place] [address] Care Team Providers Care Explosive Operator Grenade Name Role Phone Kennedi Shaver MD Primary Care Provider [phone] Encounter Details Date Type Department Care Team (Latest Contact Info) Description 10/07/2018 9:35 AM EST - 10/07/2018 12:14 PM EST Hospital Encounter Hematology [place] [address] Neoplasm of prostate, distant metastasis staging category [...] TABLETS BY MOUTH EVERY DAY 60 tablet 05/21/2018 05/25/2019 predniSONE (DELTASONE) 5 mg Tablet [...] 4:30 PM EST Hospital Encounter [place] [phone] Lizet Wilkes MD [facility] [place] [address] 09/29/2024 4:30 PM EST - 09/29/2024 5:00 PM EST Surgery [place] [address] Lizet Wilkes MD [facility] [place] [address] EGD, UPPER GI ENDOSCOPY (WRVU 2.09) 11/09/2024 10:00 AM EST Laboratory Appointment Lab at [facility] Hematology Oncology [address] [place] [phone] 11/09/2024 11:00 AM EST Office Visit Hematology [place] [address] Faith Caba MD [facility] DR HEMATOLOGY [place] [address] 11/09/2024 12:00 PM EST Appointment Hematology and Oncology at [facility] [place] [phone] Scheduled Procedures Name Priority Associated Diagnoses Date/Ti me EGD, UPPER GI ENDOSCOPY (WRVU 2.09) Gastroesophageal reflux disease with esophagitis, unspecified whether hemorrhage 09/29/2024 4:30 PM EST documented as of this encounter Procedures Procedure Name Priority Date/Time Associated Diagnosis Comments HEMOGRAM Routine 10/07/2018 9:43 AM EST Neoplasm of prostate, distant metastasis staging category M1c: distant metastasis with or without metastasis to bone DIFFERENTIAL, AUTOMATED Routine 10/07/2018 9:43 AM EST Neoplasm of prostate, distant metastasis staging category M1c: distant metastasis with or without metastasis to bone CBC (WITH DIFF) Routine 10/07/2018 9:43 AM EST Neoplasm of prostate, distant metastasis staging category M1c: distant metastasis with or without metastasis to bone PSA (ULTRASENSITIVE) Routine 10/07/2018 9:43 AM EST Neoplasm of prostate, distant metastasis staging category M1c: distant metastasis with or without metastasis to bone COMPREHENSIVE METABOLIC PANEL Routine 10/07/2018 9:43 AM EST Neoplasm of prostate, distant metastasis staging category M1c: distant metastasis with or without metastasis to bone documented in this encounter Results * Differential, Automated (10/07/2018 9:43 AM EST) Neutrophil % 52.6 % [facility] Neutrophil Absolute 3.57 1.70 - 6.10 x10(3)/[facility] LABORATORY Lymph % 29.4 % [facility] Lymphocytes Abs 2.0 0.9 - 3.2 x10(3)/[facility] LABORATORY Monocyte % 13.0 % [facility] Monocyte Abs 0.9 0.3 - 0.9 x10(3)/[facility] Eos % 3.8 % [facility] Eosinophils Abs 0.3 0.0 - 0.4 x10(3)/[facility] LABORATORY Basophil % 0.6 % [facility] Baso Absolute 0.0 0.0 - 0.1 x10(3)/[facility] LABOR[facility] Immature Gran % 0.60 % [facility] Comment: Immature granulocytes(IG's)percentage and absolute count will include metamyelocytes, myelocytes, and promyelocytes. Blood smears from CBCs yielding IG's will be scanned manually for concordance. If this scan disagrees with the automated IG or if promyelocytes are noted, a manual differential will be performed. Immature Gran Absolute 0.04 0.00 - 0.04 x10(3)/[facility] LABORATORY Blood specimen (specimen) 10/07/2018 9:43 AM EST 10/07/2018 10:12 AM EST Narrative Resulting Agency Comment Spec In Lab Faith Caba MD HEMATOLOGY ORDERABLE S Performing Organization Address City/State/[facility] Co de Phone Number [facility] [place] [address] * (ABNORMAL) Hemogram (10/07/2018 9:43 AM EST) White Blood Cell 6.8 4.0 - 9.5 x10(3)/mc L [facility] Red Blood Cell 4.54(L) 4.58 - 5.54 x10(6)/mc L [facility] Hemoglobin 13.7 13.7 - 16.5 gm/dL [facility] Hematocrit 41.6 40.5 - 48.5 % [facility] Mean Cell Volume 91.6 82.9 - 93.[address] [facility] Mean Cell Hemoglobin 30.2 27.5 - 32.[address] [facility] Mean Cell Hemoglobin Concentration 32.9 32.0 - 35.7 gm/dL [facility] Platelet 271 145 - 357 x10(3)/mc L [facility] RDW Standard Deviation 43.1 36.0 - 45.0 [facility] LABORATORY RDW coefficient of variation 12.8 11.4 - 13.8 % [facility] Mean Platelet Volume 10.1 7.6 - 12.9 [facility] NRBC% auto 0.0 % [facility] NRBC Absolute 0.000 0.000 - 0.000 x10(3)/mc L [facility] Blood specimen (specimen) 10/07/2018 9:43 AM EST 10/07/2018 10:12 AM EST Narrative Resulting Agency Comment Spec In Lab Faith Caba MD HEMATOLOGY ORDERABLE S [facility] [place] [address] * (ABNORMAL) Comprehensive metabolic panel (non-fasting) (10/07/2018 9:43 AM EST) Glucose 97 65 - 199 mg/dL [facility] Comment:Diabetes: >=200 mg/d L plus symptoms Blood Urea Nitrogen 15 10 - 20 mg/dL [facility] Creatinine 0.93 0.80 - 1.50 mg/dL [facility] Sodium 145 135 - 145 mmol/L [facility] Potassium 4.0 3.5 - 5.0 mmol/L [facility] Comment: Please note: ??Patients with WBC >100,000 may have falsely elevated Potassium levels. ??For accurate Potassium quantification in these patients send serum separator tube (gold top) for subsequent determinations. ??Contact the Clinical Chemistry Laboratory if there are any questions. Chloride 105 98 - 107 mmol/L [facility] Carbon Dioxide 24 22 - 31 mmol/L [facility] Anion Gap 16(H) 5 - 15 mmol/L [facility] Calcium 9.5 8.5 - 10.5 mg/dL [facility] Protein, Total 7.3 6.1 - 8.0 gm/dL [facility] Albumin 4.3 3.2 - 5.2 gm/dL [facility] Aspartate Aminotransferase 17 0 - 39 unit/L [facility] Alanine Aminotransferase 14 0 - 55 unit/L [facility] Alkaline Phosphatase 108 40 - 120 unit/L [facility] Bilirubin, Total 0.5 0.2 - 1.3 mg/dL [facility] Est Glomerular Filtration Rate 81 >=60 mL/min/1. 73 m?? [facility] Comment: The eGFR was calculated using the CKD-EPI equation. As with all creatinine based estimates of kidney function, eGFR values calculated with the CKD-EPI equation are not accurate in patients with acute kidney failure, extremes of body mass or the acutely ill. [email or web address] eGFR 94 >=60 mL/min/1. 73 m?? [facility] Comment: The eGFR was calculated using the CKD-EPI equation. As with all creatinine based estimates of kidney function, eGFR values calculated with the CKD-EPI equation are not accurate in patients with acute kidney failure, extremes of body mass or the acutely ill. [email or web address] Blood specimen (specimen) 10/07/2018 9:43 AM EST 10/07/2018 10:12 AM EST Narrative Resulting Agency Comment Spec In Lab Faith Caba MD CHEMISTRY ORDERABLES [facility] [place] [address] * PSA (10/07/2018 9:43 AM EST) Prostate Specific Antigen (Ultrasensitiv e) <0.01 0.00 - 4.00 ng/mL [facility] Blood specimen (specimen) 10/07/2018 9:43 AM EST 10/07/2018 10:12 AM EST Narrative Resulting Agency Comment Spec In Lab Faith Caba MD CHEMISTRY ORDERABLES [facility] [place] [address] documented in this encounter Visit Diagnoses Diagnosis Neoplasm of prostate, distant metastasis staging category M1c: distant metastasis with or without metastasis to bone Gastroesophageal reflux disease with esophagitis, unspecified whether hemorrhage documented in this encounter Care Teams Explosive Operator Grenade Relationship Specialty Start Date End Date Kennedi Shaver MD [facility] [address] [facility] [address] [place] [address] PCP - General 08/22/10 08/01/20 documented as of this encounter
--- OUTSIDE RECORDS SUMMARY | 2024-09-11 15:27 | XMS_ITS | Encounter Summary ---
Author Organization [facility] [place] [address] Care Team Providers Care Apparel Manager Name Role Phone Kennedi Shaver MD Primary Care Provider [phone] Reason for Visit * Treatment/Therapy Plan Authorization (Routine) - Specialty Diagnoses / Procedures Referred By Blaine peralta Referred To Contact Diagnoses Neoplasm of prostate, distant metastasis staging category M1c: distant metastasis with or without metastasis to bone Procedures TC LEUPROLIDE ACETATE 7.5MG, FOR DEPOST SUSPENSION (LUPRON DEPOT) Faith Caba MD [facility] DR HEMATOLOGY [place] [address] [facility] Hem Onc [address] [place] [address] Referral ID Status Reason Start Date Expiration Date V isits Requested Visits Authorized [id number] 07/07/2018 08/09/2020 30 30 Encounter Details Date Type Department Care Team (Latest Contact Info) Description 12/30/2018 8:44 AM EDT - 12/30/2018 11:59 PM EDT Hospital Encounter Hematology [place] [address] Neoplasm of prostate, distant metastasis staging category M1c: distant metastasis with or without metastasis to bone (Primary Dx) Discharge Disposition: Home Social History Tobacco Use [...] 50 mg by mouth as needed. 06/14/2014 tamsulosin (FLOMAX) 0.4 mg Capsule Take 0.4 [...] Progress Notes * Stephanie Woodson RN - 12/30/2018 11:25 AM EDT Patient Name: Chidi Carbone Patient Age: 73 y.o. Birthdate: 1945 Admit date: 12/30/2018 Attending Physician: No att. providers found Access visit. See MAR and/or flowsheet.lupron given left buttock documented in this encounter Plan of Treatment Upcoming Encounters Date Type Department Care Team (Latest Contact Info) Description 09/29/2024 4:30 PM EST Hospital Encounter [place] [phone] Lizet Wilkes MD [facility] [place] [address] 09/29/2024 4:30 PM EST - 09/29/2024 5:00 PM EST Surgery [place] [phone] Lizet Wilkes MD [facility] [place] [address] EGD, UPPER GI ENDOSCOPY (WRVU 2.09) 11/09/2024 10:00 AM EST Laboratory Appointment Lab at [facility] Hematology Oncology [address] [place] [phone] 11/09/2024 11:00 AM EST Office Visit Hematology [place] [phone] Faith Caba MD [facility] DR HEMATOLOGY [place] [address] 11/09/2024 12:00 PM EST Appointment Hematology [place] [phone] Scheduled Procedures Name Priority Associated Diagnoses Date/Ti me EGD, UPPER GI ENDOSCOPY (WRVU 2.09) Gastroesophageal reflux disease with esophagitis, unspecified whether hemorrhage 09/29/2024 4:30 PM EST documented as of this encounter Visit Diagnoses Diagnosis Neoplasm of prostate, distant metastasis staging category M1c: distant metastasis with or without metastasis to bone- Primary Gastroesophageal reflux disease with esophagitis, unspecified whether hemorrhage documented in this encounter Administered Medications Inactive Administered Medications - up to 3 most recent administrations Medication Order MAR Action Action Date Dose Rate Site leuprolide (LUPRON DEPOT) injection 22.5 mg 22.5 mg, Intramuscular, ONCE, 1 dose, On Sat12/30/18 at 1100, Routine, This agent is restricted to outpatient use. Is this drug being given as an outpatient? Yes Given 12/30/2018 11:21 AM EDT 22.5 mg Left Gluteal documented in this encounter Care Teams Apparel Manager Relationship Specialty Start Date End Date Kennedi Shaver MD [address] [place] [address] PCP - General 08/22/10 08/01/20 documented as of this encounter
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
--- OUTSIDE RECORDS SUMMARY | 2024-09-11 15:27 | XMS_ITS | Encounter Summary ---
Author Organization [facility] [place] [address] Care Team Providers Care Hypercil Core Transformer Assembler Name Role Phone Kennedi Shaver MD Primary Care Provider Reason for Visit * Reason Comments Medication Refill Encounter Details Date Type Department Care Team (Late st Contact Info) Description 05/25/2019 Refill Hematology [place] [address] HEMATOLOGY AND ONCOLOGY [place], [place] [id number] Social History Tobacco Use Types Packs/Day Years [...] Telephone Encounter - Patricia James RN - 05/25/2019 12:39 PM EDT Received request via [employer] for refill of zytiga. Script sent to provider for review, signature and escribe. documented in this encounter Plan of Treatment Upcoming Encounters Date Type Department Care Team (Latest Contact Info) Description 09/29/2024 4:30 PM EST Hospital Encounter Gastroenterology at [place] [phone] Lizet Wilkes MD [facility] [place] [address] 09/29/2024 4:30 PM EST - 09/29/2024 5:00 PM EST Surgery [place] [phone] Lizet Wilkes MD [facility] [place] [address] EGD, UPPER GI ENDOSCOPY (WRVU 2.09) 11/09/2024 10:00 AM EST Laboratory Appointment [place] [facility] [place] [address] [place], [place] [phone] 11/09/2024 11:00 AM EST Office Visit Hematology [place] [phone] Faith Caba MD [facility] DR [place] [address] 11/09/2024 12:00 PM EST Appointment Hematology [place] [phone] Scheduled Procedures Name Priority Associated Diagnoses Date/Ti pr EGD, UPPER GI ENDOSCOPY (WRVU 2.09) Gastroesophageal reflux disease with esophagitis, unspecified whether hemorrhage 09/29/2024 4:30 PM EST documented as of this encounter Visit Diagnoses Not on filedocumented in this encounter Care Teams Hypercil Core Transformer Assembler Relationship Specialty Start Date End Date Kennedi Shaver MD [address] [place] [address] PCP - General 08/22/10 08/01/20 documented as of this encounter
--- OUTSIDE RECORDS SUMMARY | 2024-09-11 15:27 | XMS_ITS | Encounter Summary ---
Author Organization [facility] [place] [address] Care Team Providers Care Sample Dye Mixer Name Role Phone Kennedi Shaver MD Primary Care Provider [phone] Encounter Details Date Type Department Care Team (Late st Contact Info) Description 04/03/2019 Telephone [place] [phone] Cammy Barraza Social History Tobacco Use Types Packs/Day Years [...] [facility] Hospital En[place] [phone] Lizet Wilkes MD [facility] [place] [address] 09/29/2024 4:30 PM EST - 09/29/2024 5:00 PM EST Surgery Gastroenterology at [place] [phone] Lizet Wilkes MD [facility] [place] [place] [address] EGD, UPPER GI ENDOSCOPY (WRVU 2.09) 11/09/2024 10:00 AM EST Laboratory Appointment [place] [facility] [place] [address] [place] [address] 11/09/2024 11:00 AM EST Office Visit Hematology [place] [address] Faith Caba MD [facility] [place] [address] 11/09/2024 12:00 PM EST Appointment Hematology and Oncology at [place] [phone] Scheduled Procedures Name Priority Associated Diagnoses Date/Ti me EGD, UPPER GI ENDOSCOPY (WRVU 2.09) Gastroesophageal reflux disease with esophagitis, unspecified whether hemorrhage 09/29/2024 4:30 PM EST documented as of this encounter Visit Diagnoses Not on filedocumented in this encounter Care Teams Sample Dye Mixer Relationship Specialty Start Date End Date Kennedi Shaver MD [facility] [address] [place] [address] PCP - General 08/22/10 08/01/20 documented as of this encounter
--- OUTSIDE RECORDS SUMMARY | 2024-09-11 15:27 | XMS_ITS | Encounter Summary ---
Author Organization Formerly [facility] [address] Care Team Providers Care Protection Specialist Name Role Phone Kennedi Shaver MD Primary Care Provider [phone] Reason for Visit * Auth/Cert Specialty Diagnoses / Procedures Referred By Blaine peralta Referred To Contact Diagnoses burn Procedures burn Rodri Villa MD [facility] [place] [address] Referral ID Status Reason Start Date Expiration Date Visits Re quested Visits Authorized [id number] 05/29/2019 1 1 Encounter Details Date Type Department Care Team (Late st Contact Info) Description 06/04/2019 11:14 AM EDT Anesthesia Event [place] [id number] Tiffanie Peters MD [facility] [place] [address] Isabelle Lombardi Anesthesia Record Procedure Summary Procedure Name Responsible Anesthesiologist Anesthesia Start Time Anesthesia Stop Time SPLIT THICK SKIN GRAFT,100 SQ CM OR LESS, LEGS (WRVU 9.9) (Right: Leg) Tiffanie Peters MD 06/04/19 1114 06/04/19 1244 Events Date Time Event Comment 06/04/2019 0928 1114 AN Verify 1114 Start 1114 An Start Data 1124 An Induction 1125 An Intubation 1127 Anesthesia Ready 1232 Extubation/LMA Out 1235 an stop data 1243 Recovery or ICU Handoff Jessica ent care was transferred to the destination unit staff after review of the patient's medical history, current anesthetic/surgical status and plan, according to the Provider Handoff Checklist. 1244 Stop Meds Name Total Propofol INF 462.78 mg fentaNYL 100 mcg Midazolam 2 mg Dexamethasone 8 mg ceFAZolin (ANCEF) 2g in dextrose 5% 100 mL 2 g Propofol 200 mg Dexmedetomidine 20 mcg Lactated Ringers 1,000 mL * Agents Name O2 Air N2O Sevoflurane (et) * Blood No blood administrations on file. Lines, Drains, and Airways Type Details Placement Removal Incision 03/08/14; abdomen; laparoscopic punctures (specify) (Trocar sites.); 05/28/22 (LDA cleanup utility RA#[id number]); 1715 (LDA cleanup utility RA#[id number]) 03/08/14 0000 by Celeste Peter RN 05/28/22 1715 by Dali Menchaca (RETIRED) Peripheral IV Line - Single Lumen 06/04/19; 918; cephalic vein (lateral side of arm), left; [id number]-sdvjis catheter system; 20 gauge, 1 in length; Parris Nguyễn RN; distraction, intradermal injection, tolerated well, appears comfortable, age-appropriate response; no longer indicated; 06/04/19; 1420 06/04/19 0919 by Peg Medina RN 06/04/19 1420 by Rocío Lemus RN Supraglottic Mask Ventilation: Ea sy (1); LMA Type: iGel; LMA Size: 5; Inserted by: Wendy Saenz CRNA; Removal Date: 06/04/19; Removal Time: 1232 06/04/19 1125 by Wendy Saenz CRNA 06/04/19 1232 by Wendy Saenz CRNA Incision 06/04/19; 1145; leg; 05/28/22 (LDA cleanup utility RA#[id number]); 1715 (LDA cleanup utility RA#[id number]) 06/04/19 1145 by Shanique Roberts RN 05/28/22 1715 by Dali Menchaca NPGRETCHEN 06/04/19; 1222; calf ; LDA not present upon assessment; 08/16/22; 1320 06/04/19 1222 by July Dow RN 08/16/22 1320 by Debra Esposito LNA documented in this encounter Social History [...] OR Notes * Anesthesia Postprocedure Evaluation - Tiffanie Peters MD - 06/04/2019 1:57 PM EDT Department of Anesthesiology Post-procedure Note Patient: Chidi Carbone Procedure Summary Date: 06/04/19 Room / [facility] Anesthesia Start: 1114 Anesthesia Stop: 1244 Procedures: SPLIT THICK SKIN GRAFT,100 SQ CM OR LESS, LEGS (WRVU 9.9) (Right Leg) DRESSING CHANGE (FOR OTHER THAN RAUSCH) UNDER ANES. (WRVU 0.86) (N/A ) MODIFIER WOUND VAC (N/A ) Diagnosis: (burn) Surgeon: Rodri Villa MD Responsible Provider: Tiffanie Peters MD Anesthesia Type: general ASA Status: 2 All Anesthesia Providers: Anesthesiologist: Tiffanie Peters MD CONSULTING NURSE: Wendy Saenz CRNA Student Nurse Surgeon'S Assistant: Isabelle Lombardi Vitals Value Taken Time BP 131/76 06/04/2019 12:40 PM Temp 36.5 ??C (97.7 ??F) 06/04/2019 12:40 PM Pulse 55 06/04/2019 1:25 PM Resp 16 06/04/2019 12:40 PM SpO2 100 % 06/04/2019 12:40 PM Pain Level 5 06/04/2019 1:09 PM Patient Location: PACU/SDP Level of Consciousness: Awake and Alert Pain Management: Satisfactory Analgesia PONV: None Cardiovascular Status: At Baseline and Hemodynamically Stable Respiratory Status: At Baseline and Room Air Postoperative Fluid Status: Intravascular EUvolemia Possible Anesthetic Complications: NONE apparent at time of evaluation Final Primary Anesthesia Type: General (The anesthetic type performed was the same as planned.) Comments: TIFFANIE PETERS MD * Anesthesia Preprocedure Evaluation - Tiffanie Peters MD - 06/03/2019 8:33 PM EDT Pre-Anesthesia Evaluation for: Chidi Carbone a 73 y.o. male. Procedure(s): SPLIT THICK SKIN GRAFT,100 SQ CM OR LESS, LEGS (WRVU 9.9) DRESSING CHANGE (FOR OTHER THAN RAUSCH) UNDER ANES. (WRVU 0.86) MODIFIER WOUND VAC Patient Active Problem List Diagnosis ??? 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 GERD (gastroesophageal reflux disease) No past medical history on file. Past Surgical History: Procedure Laterality Date ??? PRO COLONOSCOPY, DIAGNOSTIC N/A 04/19/2015 COLONOSCOPY, DIAGNOSTIC performed by Nino Rocha MD at [facility] ENDOSCOPY ? ? PRO EDG FLEXIBLE TRANSORAL ABLATE TUMOR POLYP/LESION W/DILATION & WIRE N/A 04/19/2015 EGD, TRANSORAL; WITH ABLATION OF TUMOR(S), POLYP(S), OR OTHER LESION(S) performed by Nino Rocha MD at [facility] ENDOSCOPY ??? PRO LAP, ESOPHAGOGAST FUNDOPLASTY 03/08/2014 LAPAROSCOPIC MODESTO FUNDOPLASTY performed by Surendra Garcia MD at [facility] MAIN OR ??? PRO UPPER GI ENDOSCOPY, BIOPSY 11/27/2011 UPPER GASTROINTESTINAL ENDOSCOPY,WITH BIOPSY SINGLE OR MULTIPLE performed by NINO ROCHA I at [facility] ENDOSCOPY ??? PRO UPPER GI ENDOSCOPY, BIOPSY 04/22/2012 UPPER GASTROINTESTINAL ENDOSCOPY,WITH BIOPSY SINGLE OR MULTIPLE performed by NINO ROCHA I at [facility] ENDOSCOPY ??? PRO UPPER GI ENDOSCOPY, BIOPSY 05/12/2013 UPPER GASTROINTESTINAL ENDOSCOPY,WITH BIOPSY SINGLE OR MULTIPLE performed by Nino Rocha MD at [facility] ENDOSCOPY ??? PRO UPPER GI ENDOSCOPY, BIOPSY 10/20/2013 UPPER GASTROINTESTINAL ENDOSCOPY,WITH BIOPSY SINGLE OR MULTIPLE performed by Nino Rocha MD at [facility] ENDOSCOPY ??? PRO UPPER GI ENDOSCOPY, BIOPSY N/A 06/29/2015 EGD WITH BIOPSY performed by Nino Rocha MD at [facility] ENDOSCOPY ??? UPPER GI ENDOSCOPY, EXAM 02/13/2011 UPPER GI ENDOSCOPY performed by NINO ROCHA I at [facility] ENDOSCOPY ??? UPPER GI ENDOSCOPY, EXAM 05/12/2013 UPPER GI ENDOSCOPY performed by Nino Rocha MD at [facility] ENDOSCOPY ??? UPPER GI ENDOSCOPY, EXAM N/A 04/19/2015 UPPER GI ENDOSCOPY performed by Nino Rocha MD at [facility] ENDOSCOPY ??? UPPER GI ENDOSCOPY, TUMOR ABLATN 04/22/2012 ENDOSCOPY, UPPER GI, W\ABLATION TUMOR\POLYP\LESION performed by NINO ROCHA I at [facility] Social History Tobacco Use ??? Smoking status: Former Smoker Years: 15.00 ??? Smokeless tobacco: Never Used Substance Use Topics ??? Alcohol use: Yes Alcohol/week: 14.0 standard drinks Types: 14 Glasses of wine per week Social History Substance and Sexual Activity Drug Use No No Known Allergies Medications: MAR and/or home medications have been reviewed. Physical Exam: There were no vitals filed for this visit. There is no height or weight on file to calculate BMI. 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 PAT Clinic Note documented in this encounter Plan of Treatment Upcoming Encounters Date Type Department Care Team (Latest Contact Info) Description 09/29/2024 4:30 PM EST Hospital Encounter [place] [phone] Lizet Wilkes MD [facility] [place] [address] 09/29/2024 4:30 PM EST - 09/29/2024 5:00 PM EST [place] [phone] Lizet Wilkes MD [facility] [place] [address] EGD, UPPER GI ENDOSCOPY (WRVU 2.09) 11/09/2024 10:00 AM EST Laboratory Appointment Lab at [facility] Hematology Oncology [address] [place] [phone] 11/09/2024 11:00 AM EST Office Visit [place]ematology [place] [phone] Faith Caba MD [facility] [place] [address] 11/09/2024 12:00 PM EST Appointment Hematology [place] [phone] Scheduled Procedures Name Priority Associated Diagnoses Date/Ti me EGD, UPPER GI ENDOSCOPY (WRVU 2.09) Gastroesophageal reflux disease with esophagitis, unspecified whether hemorrhage 09/29/2024 4:30 PM EST documented as of this encounter Visit Diagnoses Not on filedocumented in this encounter Administered Medications Inactive Administered Medications - up to 3 most recent administrations Medication Order MAR Action Action Date Dose Rate Site ceFAZolin (ANCEF) 2g in dextrose 5% 100 mL 2 g, Intravenous, ONCE, 1 dose, On Yudi 06/04/19 at 0915, Administer over 30 Minutes, Day of Surgery (Day of Procedure), Indication for (Active or Suspected): Prophylaxis Given 06/04/2019 11:28 AM EDT 2 g dexamethasone (DECADRON) injection Intravenous, PRN, Starting on Yudi 06/04/19 at 1155, Until Yudi 06/04/19 at 1244, Anesthesia Intra-op, Routine Given 06/04/2019 11:55 AM EDT 8 mg dexmedetomidine (PRECEDEX) injection PRN, Starting on Yudi 06/04/19 at 1151, Until Yudi 06/04/19 at 1244, Anesthesia Intra-op, Routine Given 06/04/2019 12:03 PM EDT 4 mcg Given 06/04/2019 11:57 AM EDT 8 mcg Given 06/04/2019 11:51 AM EDT 8 mcg fentaNYL 50 mcg/mL multi-dose injection Intravenous, PRN, Starting on Yudi 06/04/19 at 1131, Until Yudi 06/04/19 at 1244, Anesthesia Intra-op, Routine Given 06/04/2019 12:17 PM EDT 25 mcg Given 06/04/2019 11:39 AM EDT 25 mcg Given 06/04/2019 11:31 AM EDT 50 mcg lactated ringers infusion CONTINUOUS PRN, Starting on Yudi 06/04/19 at 1114, Until Yudi 06/04/19 at 1244, Anesthesia Intra-op New Bag 06/04/2019 12:26 PM E DT New Bag 06/04/2019 11:14 AM EDT midazolam (PF) (VERSED) multi-dose injection Intravenous, PRN, Starting on Yudi 06/04/19 at 1119, Until Yudi 06/04/19 at 1244, Anesthesia Intra-op, Routine Given 06/04/2019 11:19 AM EDT 2 mg propofol (DIPRIVAN) 10 mg/mL bolus injection (Anesthesia) PRN, Starting on Yudi 06/04/19 at 1124, Until Yudi 06/04/19 at 1244, Anesthesia Intra-op Given 06/04/2019 11:24 AM EDT 200 mg propofol (DIPRIVAN) infusion Intravenous, CONTINUOUS PRN, Starting on Yudi 06/04/19 at 1129, Until Yudi 06/04/19 at 1244, Anesthesia Intra-op, Routine New Bag 06/04/2019 11:29 AM EDT 100 mcg/kg/min 51.4 mL/hr documented in this encounter Care Teams Protection Specialist Relationship Specialty Start Date End Date Kennedi Shaver MD [facility] [address] [place] [address] PCP - General 08/22/10 08/01/20 documented as of this encounter
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
--- OUTSIDE RECORDS SUMMARY | 2024-09-11 15:27 | XMS_ITS | Encounter Summary ---
[place] [address] Care Team Providers Care Vacuum Cooker Operator Name Role Phone Kennedi Shaver MD Primary Care Provider [phone] Reason for Visit * Reason Comments Follow-up Encounter Details Date Type Department Care Team (Late st Contact Info) Description 10/07/2018 11:00 AM EST Office Visit Hematology [place] [address] HEMATOLOGY AND ONCOLOGY [place], [place] [phone] Neoplasm of prostate, distant metastasis staging category [...] Sign Reading Time Taken Comments Blood Pressure 151/72 10/07/2018 10:50 AM EST Pulse 82 10/07/2018 10:50 AM EST Temperature 36.6 ??C (97.9 ??F) 10/07/2018 10:[address] Respiratory Rate 16 10/07/2018 10:50 AM EST Oxygen Saturation 99% 10/07/2018 10:50 AM EST Inhaled Oxygen Concentration - - Weight 90 kg (198 lb 6.4 oz) 10/07/2018 10:50 AM EST Height 179.5 cm (5' 10.67) 10/07/2018 10:50 AM EST Body Mass Index 27.93 10/07/2018 10:50 AM EST documented in this encounter Progress Notes * Deborah Hector, TESTER REGULATOR - 10/07/2018 11:00 AM EST Images from the original note were not included. N [facility] HEM ONC [facility] [phone] ?? ONCOLOGY FOLLOW UP VISIT DIAGNOSIS: Metastatic [...] for f/u and consideration of Lupron injection. Been doing well. 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 Hot flushes 1-2x/day, much improved over 8-9x/day before, mostly occur during day. sx stable. Feels skin is dry/brittle. Has noticed legs somewhat weaker, but remains active. No chronic pain, occ bilat knee pain related to activity, takes occ Advil with good relief. REVIEW OF SYSTEMS: As noted in HPI; otherwise negative. PAST MEDICAL HISTORY: 1. As above 2. GERD and Sol's esophagus S/p Alli Fundoplication 3. ELevated fasting glusoce 4. S/p distant appendectomy 5. S/p tonsilectomy MEDS: Medications 10/07/18 1116 Medication Sig Taking? finasteride (PROSCAR) 5 mg Tablet Yes ZYTIGA 500 mg Tablet TAKE 2 TABLETS BY MOUTH EVERY DAY Yes predniSONE (DELTASONE) 5 mg Tablet Take 1 tablet by mouth daily. Yes ibuprofen (ADVIL;MOTRIN) 200 mg Tablet Take 200 mg by mouth every 6 hours as needed for Pain. Yes DUTASTERIDE/TAMSULOSIN HCL (ARNOL ORAL) Take by [...] Reviewed - no change PHYSICAL EXAM: BP 151/72 (Patient Position: Sitting) Pulse 82 Temp 36.6 ??C (97.9 ??F) (Temporal) Resp 16 Ht 179.5 cm (5' 10.67) Wt 90 kg (198 lb 6.4 oz) SpO2 99% BMI 27.93 kg/m?? Wt Readings from Last 3 Encounters: 10/07/18 90 kg (198 lb 6.4 oz) 07/08/18 89.4 kg (197 lb 3.2 oz) 04/08/18 89 kg (196 lb 3.2 oz) PS=0 Constitutional: NAD Eyes: Non-injected, anicteric. Resp: Effort normal. No respiratory distress. Skin: Skin is warm and dry. No rash or lesions noted. No pallor. Musculoskeletal: Normal range of motion, ambulatory. Neurological: Alert & oriented, no focal deficits. Psych: Conversant, normal mood and affect. Vitals reviewed. LABS: Normal CBC, CMP. PSA <0.01 IMAGING STUDIES: No new ASSESSMENT AND PLAN: Chidi Carbone has metastatic prostate cancer with extensive disease involving nodes and bones. He is on combination lupron+zytiga as first line therapy with very good clinical response. PSA now undetectable and he is asymptomatic. Tolerates Lupron reasonably well with mild hot flushes and some leg weakness. Labs reviewed, okay to proceed with Lupron injection today. Cont current regimen. Plan: Return in 3 months for labs, f/u, and Lupron injection. Encouraged patient to call anytime inthe meantime with questions or concerns. Deborah Hector APRN Hematology/Oncology documented in this encounter Plan of Treatment Upcoming Encounters Date Type Department Care Team (Latest Contact Info) Description 09/29/2024 4:30 PM EST Hospital En[place] [phone] Lizet Wilkes MD [facility] [place] [address] 09/29/2024 4:30 PM EST - 09/29/2024 5:00 PM EST [place] [address] Lizet Wilkes MD [facility] [place] [address] EGD, UPPER GI ENDOSCOPY (WRVU 2.09) 11/09/2024 10:00 AM EST Laboratory Appointment Lab at [facility] Hematology Oncology [address] [place] [phone] 11/09/2024 11:00 AM EST Office Visit Hematology [place] [address] Faith Caba MD [facility] DR HEMATOLOGY [place] [address] 11/09/2024 12:00 PM EST Appointment Hematology [place] [address] Scheduled Procedures Name Priority Associated Diagnoses Date/Ti [...] hemorrhage documented in this encounter Care Teams Vacuum Cooker Operator Relationship Specialty Start Date End Date Kennedi Shaver MD [facility] [address] [facility] [address] [place] [address] PCP - General 08/22/10 08/01/20 documented as of this encounter
--- OUTSIDE RECORDS SUMMARY | 2024-09-11 15:27 | XMS_ITS | Encounter Summary ---
Author Organization [facility] [place] [address] Care Team Providers Care Manager Event Name Role Phone Kennedi Shaver MD Primary Care Provider [phone] Encounter Details Date Type Department Care Team (Latest Contact Info) Description 03/31/2019 8:56 AM EDT - 03/31/2019 11:59 PM EDT Hospital Encounter Hematology [place] [address] Neoplasm of prostate, distant metastasis staging category [...] EST Hospital Encounter [place] [address] Lizet Wilkes MD [facility] [place] [address] 09/29/2024 4:30 PM EST - 09/29/2024 5:00 PM EST Surgery [place] [address] Lizet Wilkes MD [facility] [place] [address] EGD, UPPER GI ENDOSCOPY (WRVU 2.09) 11/09/2024 10:00 AM EST Laboratory Appointment Lab at [facility] [place] [address] [place] [phone] 11/09/2024 11:00 AM EST Office Visit Hematology [place] [address] Faith Caba MD [facility] [place] [address] 11/09/2024 12:00 PM EST Appointment Hematology [place] [phone] Scheduled Procedures Name Priority Associated Diagnoses Date/Ti me EGD, UPPER GI ENDOSCOPY (WRVU 2.09) Gastroesophageal reflux disease with esophagitis, unspecified whether hemorrhage 09/29/2024 4:30 PM EST documented as of this encounter Procedures Procedure Name Priority Date/Time Associated Diagnosis Comments HEMOGRAM Routine 03/31/2019 9:04 AM EDT Neoplasm of prostate, distant metastasis staging category M1c: distant metastasis with or without metastasis to bone DIFFERENTIAL, AUTOMATED Routine 03/31/2019 9:04 AM EDT Neoplasm of prostate, distant metastasis staging category M1c: distant metastasis with or without metastasis to bone CBC (WITH DIFF) Routine 03/31/2019 9:04 AM EDT Neoplasm of prostate, distant metastasis staging category M1c: distant metastasis with or without metastasis to bone PSA (ULTRASENSITIVE) Routine 03/31/2019 9:04 AM EDT Neoplasm of prostate, distant metastasis staging category M1c: distant metastasis with or without metastasis to bone COMPREHENSIVE METABOLIC PANEL Routine 03/31/2019 9:04 AM EDT Neoplasm of prostate, distant metastasis staging category M1c: distant metastasis with or without metastasis to bone documented in this encounter Results * Differential, Automated (03/31/2019 9:04 AM EDT) Neutrophil % 54.0 % [facility] Neutrophil Absolute 2.79 1.70 - 6.10 x10(3)/[facility] Lymph % 26.0 % [facility] Lymphocytes Abs 1.3 0.9 - 3.2 x10(3)/[facility] Monocyte % 13.4 % [facility] Monocyte Abs 0.7 0.3 - 0.9 x10(3)/[facility] Eos % 5.8 % [facility] Eosinophils Abs 0.3 0.0 - 0.4 x10(3)/[facility] Basophil % 0.6 % [facility] Baso Absolute 0.0 0.0 - 0.1 x10(3)/[facility] Immature Gran % 0.20 % [facility] Comment: Immature granulocytes(IG's)percentage and absolute count will include metamyelocytes, myelocytes, and promyelocytes. Blood smears from CBCs yielding IG's will be scanned manually for concordance. If this scan disagrees with the automated IG or if promyelocytes are noted, a manual differential will be performed. Immature Gran Absolute 0.01 0.00 - 0.04 x10(3)/[facility] Blood specimen (specimen) 03/31/2019 9:04 AM EDT 03/31/2019 9:14 AM EDT Narrative Resulting Agency Comment Spec In Lab Deborah Hector CUSTOM WOOD STAIR BUILDER HEMATOLOGY ORDERAB LES [facility] [place] [address] * (ABNORMAL) Hemogram (03/31/2019 9:04 AM EDT) White Blood Cell 5.2 4.0 - 9.5 x10(3)/mc L [facility] Red Blood Cell 4.34(L) 4.58 - 5.54 x10(6)/mc L [facility] Hemoglobin 13.1(L) 13.7 - 16.5 gm/dL [facility] Hematocrit 39.0(L) 40.5 - 48.5 % [facility] Mean Cell Volume 89.9 82.9 - 93.1 fL [facility] Mean Cell Hemoglobin 30.2 27.5 - 32.1 pg [facility] Mean Cell Hemoglobin Concentration 33.6 32.0 - 35.7 gm/dL [facility] Platelet 227 145 - 357 x10(3)/mc L [facility] RDW Standard Deviation 42.3 36.0 - 45.0 fL [facility] RDW coefficient of variation 12.9 11.4 - 13.8 % [facility] Mean Platelet Volume 9.9 7.6 - 12.9 fL [facility] NRBC% auto 0.0 % [facility] NRBC Absolute 0.000 0.000 - 0.000 x10(3)/mc L [facility] Blood specimen (specimen) 03/31/2019 9:04 AM EDT 03/31/2019 9:14 AM EDT Narrative Resulting Agency Comment Spec In Lab Deborah Hector CUSTOM WOOD STAIR BUILDER HEMATOLOGY ORDERAB LES [facility] [place] [address] * Comprehensive metabolic panel (non-fasting) (03/31/2019 9:04 AM EDT) Glucose 112 65 - 199 mg/dL [facility] Comment:Diabetes: >=200 mg/d L plus symptoms Blood Urea Nitrogen 14 10 - 20 mg/dL [facility] Creatinine 0.92 0.80 - 1.50 mg/dL [facility] Sodium 142 135 - 145 mmol/L [facility] Potassium 4.1 3.5 - 5.0 mmol/L [facility] Comment: Please note: ??Patients with WBC >100,000 may have falsely elevated Potassium levels. ??For accurate Potassium quantification in these patients send serum separator tube (gold top) for subsequent determinations. ??Contact the Clinical Chemistry Laboratory if there are any questions. Chloride 105 98 - 107 mmol/L [facility] Carbon Dioxide 26 22 - 31 mmol/L [facility] Anion Gap 11 5 - 15 mmol/L [facility] Calcium 9.3 8.5 - 10.5 mg/dL [facility] Protein, Total 6.8 6.1 - 8.0 gm/dL [facility] Albumin 4.3 3.2 - 5.2 gm/dL [facility] Aspartate Aminotransferase 20 0 - 39 unit/L [facility] Alanine Aminotransferase 13 0 - 55 unit/L [facility] Alkaline Phosphatase 99 40 - 120 unit/L [facility] Bilirubin, Total 0.8 0.2 - 1.3 mg/dL [facility] Est Glomerular Filtration Rate 82 >=60 mL/min/1. 73 m?? [facility] Comment: The eGFR was calculated using the CKD-EPI equation. As with all creatinine based estimates of kidney function, eGFR values calculated with the CKD-EPI equation are not accurate in patients with acute kidney failure, extremes of body mass or the acutely ill. http://[employer]/[facility] eGFR 95 >=60 mL/min/1. 73 m?? [facility] Comment: The eGFR was calculated using the CKD-EPI equation. As with all creatinine based estimates of kidney function, eGFR values calculated with the CKD-EPI equation are not accurate in patients with acute kidney failure, extremes of body mass or the acutely ill. http://[employer]/[facility]nkf Blood specimen (specimen) 03/31/2019 9:04 AM EDT 03/31/2019 9:14 AM EDT Narrative Resulting Agency Comment Spec In Lab Deborah Hector CUSTOM WOOD STAIR BUILDER CHEMISTRY ORDERABL ES [facility] [place] [address] * PSA (03/31/2019 9:04 AM EDT) Prostate Specific Antigen (Ultrasensitiv e) <0.01 0.00 - 4.00 ng/mL [facility] Blood specimen (specimen) 03/31/2019 9:04 AM EDT 03/31/2019 9:14 AM EDT Narrative Resulting Agency Comment Spec In Lab Deborah Mika Hector CUSTOM WOOD STAIR BUILDER CHEMISTRY ORDERABL ES [facility] [place] [address] documented in this encounter Visit Diagnoses Diagnosis Neoplasm of prostate, distant metastasis staging category M1c: distant metastasis with or without metastasis to bone Gastroesophageal reflux disease with esophagitis, unspecified whether hemorrhage documented in this encounter Care Teams Manager Event Relationship Specialty Start Date End Date Kennedi Shaver MD [address] [facility] [address] [place] [address] PCP - General 08/22/10 08/01/20 documented as of this encounter
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
--- OUTSIDE RECORDS SUMMARY | 2024-09-11 15:27 | XMS_ITS | Encounter Summary ---
[place] [address] Care Team Providers Care Diesel Tractor Operator Name Role Phone Kennedi Shaver MD Primary Care Provider [phone] Encounter Details Date Type Department Care Team (Latest Contact Info) Description 12/30/2018 8:43 AM EDT Hospital Encounter Hematology [place] [address] Neoplasm of prostate, distant metastasis staging category [...] 4:30 PM EST Hospital Encounter [place] [address] Lizet Wilkes MD [facility] [place] [address] 09/29/2024 4:30 PM EST - 09/29/2024 5:00 PM EST Surgery [place] [address] Lizet Wilkes MD [facility] [place] [address] EGD, UPPER GI ENDOSCOPY (WRVU 2.09) 11/09/2024 10:00 AM EST Laboratory Appointment Lab at [facility] Hematology Oncology [address] [place] [phone] 11/09/2024 11:00 AM EST Office Visit Hematology [place] [address] Faith Caba MD [facility] [address] [place] [address] 11/09/2024 12:00 PM EST Appointment Hematology and Oncology [place] [address] Scheduled Procedures Name Priority Associated Diagnoses Date/Ti me EGD, UPPER GI ENDOSCOPY (WRVU 2.09) Gastroesophageal reflux disease with esophagitis, unspecified whether hemorrhage 09/29/2024 4:30 PM EST documented as of this encounter Procedures Procedure Name Priority Date/Time Associated Diagnosis Comments HEMOGRAM Routine 12/30/2018 8:57 AM EDT Neoplasm of prostate, distant metastasis staging category M1c: distant metastasis with or without metastasis to bone DIFFERENTIAL, AUTOMATED Routine 12/30/2018 8:57 AM EDT Neoplasm of prostate, distant metastasis staging category M1c: distant metastasis with or without metastasis to bone CBC (WITH DIFF) Routine 12/30/2018 8:57 AM EDT Neoplasm of prostate, distant metastasis staging category M1c: distant metastasis with or without metastasis to bone PSA (ULTRASENSITIVE) Routine 12/30/2018 8:57 AM EDT Neoplasm of prostate, distant metastasis staging category M1c: distant metastasis with or without metastasis to bone COMPREHENSIVE METABOLIC PANEL Routine 12/30/2018 8:57 AM EDT Neoplasm of prostate, distant metastasis staging category M1c: distant metastasis with or without metastasis to bone documented in this encounter Results * Differential, Automated (12/30/2018 8:57 AM EDT) Neutrophil % 56.3 % [facility] Neutrophil Absolute 3.49 1.70 - 6.10 x10(3)/[facility] Lymph % 26.1 % [facility] Lymphocytes Abs 1.6 0.9 - 3.2 x10(3)/[facility] Monocyte % 13.8 % [facility] Monocyte Abs 0.9 0.3 - 0.9 x10(3)/[facility] Eos % 2.9 % [facility] Eosinophils Abs 0.2 0.0 - 0.4 x10(3)/[facility] Basophil % 0.6 % [facility] Baso Absolute 0.0 0.0 - 0.1 x10(3)/[facility] Immature Gran % 0.30 % [facility] Comment: Immature granulocytes(IG's)percentage and absolute count will include metamyelocytes, myelocytes, and promyelocytes. Blood smears from CBCs yielding IG's will be scanned manually for concordance. If this scan disagrees with the automated IG or if promyelocytes are noted, a manual differential will be performed. Immature Gran Absolute 0.02 0.00 - 0.04 x10(3)/[facility] Blood specimen (specimen) 12/30/2018 8:57 AM EDT 12/30/2018 9:14 AM EDT Narrative Resulting Agency Comment Spec In Lab Deborah Hector CRIMINAL JUSTICE PROFESSOR HEMATOLOGY ORDERAB LES [facility] [place] [address] * (ABNORMAL) Hemogram (12/30/2018 8:57 AM EDT) White Blood Cell 6.2 4.0 - 9.5 x10(3)/mc L [facility] Red Blood Cell 4.34(L) 4.58 - 5.54 x10(6)/mc L [facility] Hemoglobin 13.1(L) 13.7 - 16.5 gm/dL [facility] Hematocrit 39.7(L) 40.5 - 48.5 % [facility] Mean Cell Volume 91.5 82.9 - 93.1 fL [facility] Mean Cell Hemoglobin 30.2 27.5 - 32.1 pg [facility] Mean Cell Hemoglobin Concentration 33.0 32.0 - 35.7 gm/dL [facility] Platelet 234 145 - 357 x10(3)/mc L [facility] RDW Standard Deviation 44.0 36.0 - 45.0 [facility] RDW coefficient of variation 13.1 11.4 - 13.8 % [facility] Mean Platelet Volume 9.9 7.6 - 12.9 fL [facility] NRBC% auto 0.0 % [facility] NRBC Absolute 0.000 0.000 - 0.000 x10(3)/mc L [facility] Blood specimen (specimen) 12/30/2018 8:57 AM EDT 12/30/2018 9:14 AM EDT Narrative Resulting Agency Comment Spec In Lab Deborah Hector CRIMINAL JUSTICE PROFESSOR HEMATOLOGY ORDERAB LES [facility] [place] [address] * Comprehensive metabolic panel (non-fasting) (12/30/2018 8:57 AM EDT) Glucose 111 65 - 199 mg/dL [facility] Comment:Diabetes: >=200 mg/d L plus symptoms Blood Urea Nitrogen 14 10 - 20 mg/dL [facility] Creatinine 0.88 0.80 - 1.50 mg/dL [facility] Sodium 141 135 - 145 mmol/L [facility] Potassium 3.8 3.5 - 5.0 mmol/L [facility] Comment: Please note: ??Patients with WBC >100,000 may have falsely elevated Potassium levels. ??For accurate Potassium quantification in these patients send serum separator tube (gold top) for subsequent determinations. ??Contact the Clinical Chemistry Laboratory if there are any questions. Chloride 103 98 - 107 mmol/L [facility] Carbon Dioxide 27 22 - 31 mmol/L [facility] Anion Gap 11 5 - 15 mmol/L [facility] Calcium 9.3 8.5 - 10.5 mg/dL [facility] Protein, Total 6.8 6.1 - 8.0 gm/dL [facility] Albumin 4.3 3.2 - 5.2 gm/dL [facility] Aspartate Aminotransferase 17 0 - 39 unit/L [facility] Alanine Aminotransferase 15 0 - 55 unit/L [facility] Alkaline Phosphatase 100 40 - 120 unit/L [facility] Bilirubin, Total 0.7 0.2 - 1.3 mg/dL [facility] Est Glomerular Filtration Rate 85 >=60 mL/min/1. 73 m?? [facility] Comment: The eGFR was calculated using the CKD-EPI equation. As with all creatinine based estimates of kidney function, eGFR values calculated with the CKD-EPI equation are not accurate in patients with acute kidney failure, extremes of body mass or the acutely ill. [email or web address] eGFR 98 >=60 mL/min/1. 73 m?? [facility] Comment: The eGFR was calculated using the CKD-EPI equation. As with all creatinine based estimates of kidney function, eGFR values calculated with the CKD-EPI equation are not accurate in patients with acute kidney failure, extremes of body mass or the acutely ill. [email or web address] Blood specimen (specimen) 12/30/2018 8:57 AM EDT 12/30/2018 9:14 AM EDT Narrative Resulting Agency Comment Spec In Lab Deborah Hector CRIMINAL JUSTICE PROFESSOR CHEMISTRY ORDERABL ES [facility] [place] [address] * PSA (12/30/2018 8:57 AM EDT) Prostate Specific Antigen (Ultrasensitiv e) <0.01 0.00 - 4.00 ng/mL [facility] Blood specimen (specimen) 12/30/2018 8:57 AM EDT 12/30/2018 9:14 AM EDT Narrative Resulting Agency Comment Spec In Lab Deborah Hector CRIMINAL JUSTICE PROFESSOR CHEMISTRY ORDERABL ES [facility] [place] [address] documented in this encounter Visit Diagnoses Diagnosis Neoplasm of prostate, distant metastasis staging category M1c: distant metastasis with or without metastasis to bone Gastroesophageal reflux disease with esophagitis, unspecified whether hemorrhage documented in this encounter Care Teams Diesel Tractor Operator Relationship Specialty Start Date End Date Kennedi Shaver MD [address] [place] [address] PCP - General 08/22/10 08/01/20 documented as of this encounter
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
--- OUTSIDE RECORDS SUMMARY | 2024-09-11 15:27 | XMS_ITS | Encounter Summary ---
Author Organization [facility] [place] [address] Care Team Providers Care Property And Supply Officer Name Role Phone Kennedi Shaver MD Primary Care Provider [phone] Reason for Visit * Treatment/Therapy Plan Authorization (Routine) - Specialty Diagnoses / Procedures Referred By Blaine peralta Referred To Contact Diagnoses Neoplasm of prostate, distant metastasis staging category M1c: distant metastasis with or without metastasis to bone Procedures TC LEUPROLIDE ACETATE 7.5MG, FOR DEPOST SUSPENSION (LUPRON DEPOT) Faith Caba MD [facility] [address] [place] [address] [facility] Hem Onc [address] [place] [address] Referral ID Status Reason Start Date Expiration Date V isits Requested Visits Authorized [id number] 07/07/2018 08/09/2020 30 30 Encounter Details Date Type Department Care Team (Latest Contact Info) Description 03/31/2019 8:56 AM EDT - 03/31/2019 11:59 PM EDT Hospital Encounter [place]ology [place] [address] Neoplasm of prostate, distant metastasis staging category [...] as of this encounter Progress Notes * Nury Phelps RN - 03/31/2019 10:39 AM EDT Patient Name: Chidi Carbone Patient Age: 73 y.o. Birthdate: 1945 Admit date: 03/31/2019 Attending Physician: No att. providers found Access visit. See MAR and/or Flowsheet documented in this encounter Miscellaneous Notes * Addendum Note - Mone Fregoso RN - 03/31/2019 10:57 AM EDTEncounter addended by: Mone Fregoso RN on: 03/31/2019 10:57 AM Actions taken: Charge Capture section accepted documented in this encounter Plan of Treatment Upcoming Encounters Date Type Department Care Team (Latest Contact Info) Description 09/29/2024 4:30 PM EST Hospital Encounter Gastroenterology at [address] Lizet Wilkes MD [facility] [address] 09/29/2024 4:30 PM EST - 09/29/2024 5:00 PM EST Surgery Gastroenterology at [place] [phone] Lizet Wilkes MD [facility] [address] EGD, UPPER GI ENDOSCOPY (WRVU 2.09) 11/09/2024 10:00 AM EST Laboratory Appointment Lab at [facility] Hematology Oncology [address] [place], [place] [phone] 11/09/2024 11:00 AM EST Office Visit Hematology and Oncology at [place] [phone] Faith Caba MD [facility] [place] [address] 11/09/2024 12:00 PM EST Appointment Hematology and Oncology at [place] [phone] Scheduled Procedures Name Priority Associated Diagnoses Date/Ti [...] 22.5 mg, Intramuscular, ONCE, 1 dose, On Sat03/31/19 at 1045, Routine, This agent is restricted to outpatient use. Is this drug being given as an outpatient? Yes Given 03/31/2019 10:34 AM EDT 22.5 mg Right Gluteal documented in this encounter Care Teams Property And Supply Officer Relationship Specialty Start Date End Date Kennedi Shaver MD [facility] [address] [place] [address] PCP - General 08/22/10 08/01/20 documented as of this encounter
--- OUTSIDE RECORDS SUMMARY | 2024-09-11 15:27 | XMS_ITS | Encounter Summary ---
Author Organization [facility] [place] [address] Care Team Providers Care General Doc Name Role Phone Kennedi Shaver MD Primary Care Provider [phone] Reason for Visit * Reason Onset Date Comments Fatigue 04/08/2019 Encounter Details Date Type Department Care Team (Late st Contact Info) Description 04/08/2019 Telephone Hematology [place] [address] Patricia James RN INFUSION ROOM Fatigue Social History Tobacco Use Types Packs/Day Years [...] Telephone Encounter - Patricia James RN - 04/08/2019 12:06 PM EDT Message received from laboratory secretary: [phone] Chidi had a thyroid test and lyme disease test with his PCP that both came out negative (he will be forwarding the results to us). These to no explain the fatigue he has been having, wants to know what to do now Per last office note: Fatigue is certainly known SE of Lupron and abiraterone. Pt has been very busy with moving. Advised discussing w/PCP (seeing her tomorrow) as fatigue can be compounded by thyroid/other issues. He agrees. Advised importance of pacing self, staying well-hydrated, millie in hot weather and given physical activity, eating and sleeping well, conserving energy. Will re- eval once settled down after move, if noother suspected etiology (thyroid/other) and fatigue persists, could consider abiraterone dose reduction. Pt prefers to stay on full dose for now given excellent response. I agreed. Spoke w/pt who stated that they are in the middle of the move, thinks that they will be done w/ themove by the end of the month. It is their first move in 30 yrs so it is emotionally as well as physically fatiguing. His fatigue is no worse than it's been. Plan: reviewed the above plan from Blanche Hector APRN's last office note- discussed option of drug holiday or dose reduction, discussed that he was still in the midst of a fatiguing situation (move) andit was likely he would not regain all of his energy till after move completed so it would be reasonable to delay making any changes until after move Pt declined holiday or dose reduction and agreed that waiting till after his move was complete, around start of Apr, to see how his energy level and fatigue rebounded was reasonable. He agreed to contact the clinic should his fatigue worsen or he developed any add'tl s/s prior to then. documented in this encounter Plan of Treatment Upcoming Encounters Date Type Department Care Team (Latest Contact Info) Description 09/29/2024 4:30 PM EST Hospital Encounter [place] [address] Lizet Wilkes MD [facility] [place]STRO[place] [address] 09/29/2024 4:30 PM EST - 09/29/2024 5:00 PM EST Surgery Gastroenterology at [place] [address] Lizet Wilkes MD [facility] [place] [address] EGD, UPPER GI ENDOSCOPY (WRVU 2.09) 11/09/2024 10:00 AM EST Laboratory Appointment Lab at [facility] Hematology Oncology [address] [place] [address] 11/09/2024 11:00 AM EST Office Visit Hematology and Oncology at [place] [address] Faith Caba MD [facility] [address] [place] [address] 11/09/2024 12:00 PM EST Appointment Hematology and Oncology at [place] [address] Scheduled Procedures Name Priority Associated Diagnoses Date/Ti me EGD, UPPER GI ENDOSCOPY (WRVU 2.09) Gastroesophageal reflux disease with esophagitis, unspecified whether hemorrhage 09/29/2024 4:30 PM EST documented as of this encounter Visit Diagnoses Not on filedocumented in this encounter Care Teams General Doc Relationship Specialty Start Date End Date Kennedi Shaver MD [address] [place] [address] PCP - General 08/22/10 08/01/20 documented as of this encounter
--- OUTSIDE RECORDS SUMMARY | 2024-09-11 15:27 | XMS_ITS | Encounter Summary ---
Author Organization [facility] [place] [address] Care Team Providers Care Table Tender Name Role Phone Kennedi Shaver MD Primary Care Provider [phone] Reason for Visit * Treatment/Therapy Plan Authorization (Routine) - Specialty Diagnoses / Procedures Referred By Blaine perlata Referred To Contact Diagnoses Neoplasm of prostate, distant metastasis staging category M1c: distant metastasis with or without metastasis to bone Procedures TC LEUPROLIDE ACETATE 7.5MG, FOR DEPOST SUSPENSION (LUPRON DEPOT) Faith Caba MD [facility] [address] [place] [address] [facility] [address] [place] [address] Referral ID Status Reason Start Date Expiration Date V isits Requested Visits Authorized [id number] 07/07/2018 08/09/2020 30 30 Encounter Details Date Type Department Care Team (Latest Contact Info) Description 10/06/2019 9:20 AM EST Hospital Encounter Hematology [place] [phone] Neoplasm of prostate, distant metastasis [...] Progress Notes * Stephanie Woodson RN - 10/06/2019 11:31 AM EST Access visit. See MAR and/or flowsheet.lupron given tolerated well. documented in this encounter Plan of Treatment Upcoming Encounters Date Type Department Care Team (Latest Contact Info) Description 09/29/2024 4:30 PM EST Hospital Encounter [place] [address] Lizet Wilkes MD [facility] [address] 09/29/2024 4:30 PM EST - 09/29/2024 5:00 PM EST Surgery [place] [address] Lizet Wilkes MD [facility] [place] [address] EGD, UPPER GI ENDOSCOPY (WRVU 2.09) 11/09/2024 10:00 AM EST Laboratory Appointment Lab at [facility] Hematology Oncology [address] [place] [phone] 11/09/2024 11:00 AM EST Office Visit Hematology [place] [phone] Faith Caba MD [facility] DR [place] [address] 11/09/2024 12:00 PM EST Appointment Hematology [place] [address] Scheduled Procedures Name Priority Associated Diagnoses Date/Ti [...] 22.5 mg, Intramuscular, ONCE, 1 dose, On Sat10/06/19 at 1130, Routine, This agent is restricted to outpatient use. Is this drug being given as an outpatient? Yes Given 10/06/2019 11:25 AM EST 22.5 mg Right Gluteal documented in this encounter Care Teams Table Tender Relationship Specialty Start Date End Date Kennedi Shaver MD [employer] [address] [place] [address] PCP - General 08/22/10 08/01/20 documented as of this encounter
--- OUTSIDE RECORDS SUMMARY | 2024-09-11 15:27 | XMS_ITS | Encounter Summary ---
Author Organization Formerly [facility] [place] [address] Care Team Providers Care Packer Sausage And Wiener Name Role Phone Kennedi Shaver MD Primary Care Provider [phone] Reason for Visit * Auth/Cert Specialty Diagnoses / Procedures Referred By Blaine peralta Referred To Contact Diagnoses burn Procedures burn Rodri Villa MD [facility] [place] [address] Referral ID Status Reason Start Date Expiration Date Visits Re quested Visits Authorized [id number] 05/29/2019 1 1 Encounter Details Date Type Department Care Team (Late st Contact Info) Description 06/04/2019 9:55 AM EDT - 06/04/2019 11:23 AM EDT Surgery [place] [address] [facility] [place] [address] SPLIT THICK SKIN GRAFT,100 SQ CM OR LESS, LEGS (WRVU 9.9) Social History Tobacco Use Types Packs/Day Years [...] Sign Reading Time Taken Comments Blood Pressure 154/88 06/04/2019 9:20 AM EDT Pulse 68 06/04/2019 9:20 AM EDT Temperature 36.9 ??C (98.4 ??F) 06/04/2019 9:20 AM ED T Respiratory Rate 16 06/04/2019 9:20 AM EDT Oxygen Saturation 99% 06/04/2019 9:20 AM EDT Inhaled Oxygen Concentration - - [...] your normal skin, may be darker or cutter aluminum sheet in color and may never havenormal feeling [...] scheduling, please contact our administrative offices at [phone]. For clinical questions, please call our nurses at [phone]. Both offices are open Saturday thru Saturday 8a - 5p. With emergencies after hours, call the hospital stand up forklift operator at [phone] and ask for the Plastic Surgery Resident care transition coordinator. documented in this encounter Medications at Time [...] DIAGNOSTIC performed by Nino Rocha MD at [facility] ENDOSCOPY ? ? PRO EDG FLEXIBLE TRANSORAL ABLATE TUMOR POLYP/LESION W/DILATION & WIRE N/A 04/19/2015 EGD, TRANSORAL; WITH ABLATION OF TUMOR(S), POLYP(S), OR OTHER LESION(S) performed by Nino Rocha MD at [facility] ENDOSCOPY ??? PRO LAP, ESOPHAGOGAST FUNDOPLASTY 03/08/2014 LAPAROSCOPIC MODESTO FUNDOPLASTY performed by Surendra Garcia MD at [facility] MAIN OR ??? PRO UPPER GI ENDOSCOPY, BIOPSY 11/27/2011 UPPER GASTROINTESTINAL ENDOSCOPY,WITH BIOPSY SINGLE OR MULTIPLE performed by NINO ROCHA I at [facility] ENDOSCOPY ??? PRO UPPER GI ENDOSCOPY, BIOPSY 04/22/2012 UPPER GASTROINTESTINAL ENDOSCOPY,WITH BIOPSY SINGLE OR MULTIPLE performed by NINO ROCHA I at [facility] ENDOSCOPY ??? PRO UPPER GI ENDOSCOPY, BIOPSY 05/12/2013 UPPER GASTROINTESTINAL ENDOSCOPY,WITH BIOPSY SINGLE OR MULTIPLE performed by Nino Rocha MD at [facility] ENDOSCOPY ??? PRO UPPER GI ENDOSCOPY, BIOPSY 10/20/2013 UPPER GASTROINTESTINAL ENDOSCOPY,WITH BIOPSY SINGLE OR MULTIPLE performed by Nino Rocha MD at [facility] ENDOSCOPY ??? PRO UPPER GI ENDOSCOPY, BIOPSY N/A 06/29/2015 EGD WITH BIOPSY performed by Nino Rocha MD at [facility] ENDOSCOPY ??? UPPER GI ENDOSCOPY, EXAM 02/13/2011 UPPER GI ENDOSCOPY performed by NINO ROCHA I at [facility] ENDOSCOPY ??? UPPER GI ENDOSCOPY, EXAM 05/12/2013 UPPER GI ENDOSCOPY performed by Nino Rocha MD at [facility] ENDOSCOPY ??? UPPER GI ENDOSCOPY, EXAM N/A 04/19/2015 UPPER GI ENDOSCOPY performed by Nino Rocha MD at [facility] ENDOSCOPY ??? UPPER GI ENDOSCOPY, TUMOR ABLATN 04/22/2012 ENDOSCOPY, UPPER GI, W\ABLATION TUMOR\POLYP\LESION performed by NINO ROCHA I at [facility] ENDOSCOPY No family history on file. Social [...] file Gets together: Not on file Attends hindu service: Not on file Active member of [...] Jones MD - 06/04/2019 2:30 PM EDT [facility] Operative Note Patient Name: Chidi Carbone : [id number] MR#: [id number] Case Date: 06/04/2019 Surgeon: Surgeon(s) and Role: [...] Operative Note Patient Name: Chidi Carbone : [id number] MR#: [id number] Case Date: 06/04/2019 Surgeon: Surgeon(s) and Role: [...] Center 06/09/2019 2:00 PM NURSE, PLASTIC SURGERY [facility] PLAS 4M [facility] 07/07/2019 9:00 AM LABORATORY, TECH [facility] INF 3K [facility] 07/07/2019 10:00 AM Faith Caba MD [facility] HEM ONC [facility] 07/07/2019 11:15 AM ACCESS ROOM [address] The wound bed is described as healthy bleeding deep dermis Wound size: length 13 cm x width 7 cm x depth 0 cm. documented in this encounter Plan of Treatment Upcoming Encounters Date Type Department Care Team (Latest Contact Info) Description 09/29/2024 4:30 PM EST Hospital Encounter [place] [address] [facility] [place] [address] 09/29/2024 4:30 PM EST - 09/29/2024 5:00 PM EST [place] [phone] [facility] [place] [address] EGD, UPPER GI ENDOSCOPY (WRVU 2.09) 11/09/2024 10:00 AM EST Laboratory Appointment Lab at [facility] Hematology Oncology [address] [place] [phone] 11/09/2024 11:00 AM EST Office Visit Hematology [place] [phone] [facility] HEMATOLOGY [place] [address] 11/09/2024 12:00 PM EST Appointment Hematology [place] [address] Scheduled Procedures Name Priority Associated Diagnoses Date/Ti [...] Prep Site Trunk/Arm/Leg 1St 100 Sq Cm/1Pct (64919) Yes 06/04/2019 11:14 AM EDT burn MODIFIER WOUND VAC Yes 06/04/2019 11 :14 AM EDT burn Dressing Change, Not For Burn (47932) Yes 06/04/2019 11:14 AM EDT burn Split Grft Trunk, Arm, Leg <100Sqcm ([id number]) Yes 06/04/2019 11:14 AM EDT burn DRESSING CHANGE (FOR OTHER THAN ZEE) UNDER ANES. Routine 06/04/2019 8:40 AM EDT documented in this encounter Results * Specimen to Pathology (06/04/2019 12:11 PM EDT) AP Specimen 06/04/2019 12:1 1 PM EDT 06/04/2019 12:11 PM EDT Narrative [facility] - 06/04/2019 12:11 PM EDT Specimen requisition ordered. ??Separate Pathology report to follow Rodri Villa MD PATHOLOGY/CYTOLOGY O RDERABLES [facility] [place] [address] * Surgical Pathology Report (06/04/2019 12:00 PM EDT) Final Diagnosis [id number] ? Location: SDP; SD40; A The signing pathologist has (i) examined the relevant preparation(s) for the specimen(s) and (ii) rendered or confirmed the diagnosis(es). . ?Surgical Pathology DIAGNOSIS Skin, right leg, excision: - Necrotic material with associated inflammation (see discussion) Electronically signed by: ??Neetu Gutierrez MD Verified: ??06/08/2019 ?Dermatopatholo gist Performed at: ??-[facility] Dept. of Pathology, [place], [place] DISCUSSION Overall, the findings are not [...] translucent sheets of soft tissue. Sections/Process ing: Silk Conditioner sections in 3 cassettes as follows: ?A1: ??Smaller specimen ?A2-A3: ??Larger specimen ??shb 06/08/2019 3:10 PM EDT [facility] SPECIMEN FROM SKIN / Unknown 06/04/2019 12:00 PM EDT 06/04/2019 12:00 PM EDT Rodri Villa MD PATHOLOGY/CYTOLOGY O JESUSERABRYSON [facility] [place] [address] documented in this encounter Visit Diagnoses Not [...] Given 06/04/2019 1:06 PM EDT 1,000 mg BUpivacaine-EPINEPHrine 0.25 %-1:200,000 injection ONCE PRN, Starting on Yudi 06/04/19 at 1148, Until Yudi 06/04/19 at 1717, Intra-Operative (Intra-Procedure), Routine Given 06/04/2019 11:48 AM EDT 22 mLs 19- Surgical Site fentaNYL (PF) 50mcg/mL injection 25-50 mcg, Intravenous, [...] Routine documented in this encounter Care Teams Packer Sausage And Wiener Relationship Specialty Start Date End Date Kennedi Shaver MD [address] [place] [address] PCP - General 08/22/10 08/01/20 documented as of this encounter
--- OUTSIDE RECORDS SUMMARY | 2024-09-11 15:28 | XMS_ITS | Encounter Summary ---
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 06/14/2014 abiraterone 500 mg Tablet Take 1,000 mg by mouth daily. 60 tablet 11 05/28/2017 05/20/2018 predniSONE (DELTASONE) 5 mg Tablet Take 1 tablet by mouth daily. 30 tablet 11 04/29/2017 05/06/2018 ibuprofen (ADVIL;MOTRIN) 200 mg Tablet Take 200 mg by mouth every 6 hours as needed for Pain. 06/29/2019 pantoprazole (PROTONIX) 20 mg Tablet, Delayed Release (E.C.) Take 20 mg by mouth 2 times daily. 10/04/2020 acetaminophen (TYLENOL) 650 mg/20.3 mL oral liquid Take 20.3 mLs by mouth every 4 hours as needed. 03/09/2014 06/29/2019 DUTASTERIDE/TAMSULOSIN HCL (ARNOL ORAL) Take by mouth daily. 05/29/2019 ZOLPIDEM TARTRATE (AMBIEN ORAL) 12/05/2010 10/04/2020 documented as of this encounter Progress Notes * Nona Vaca RN - 10/22/2017 12:43 PM EST Patient Name: Chidi Carbone Patient Age: 71 y.o. Birthdate: 1945 Admit date: 10/22/2017 Attending Physician: No att. providers found Access visit. See MAR and/or flowsheet. Pt received Lupron, tolerated injection well. documented in this encounter Plan of Treatment Upcoming Encounters Date Type Department Care Team (Latest Contact Info) Description 09/29/2024 4:30 PM EST Hospital Encounter [place] [address] Lizet Wilkes MD [facility] [place] [address] 09/29/2024 4:30 PM EST - 09/29/2024 5:00 PM EST Surgery [place] [phone] Lizet Wilkes MD [facility] [place] [address] EGD, UPPER GI ENDOSCOPY (WRVU 2.09) 11/09/2024 10:00 AM EST Laboratory Appointment Lab at [facility] [place] [place] Hematology Oncology [address] [place] [phone] 11/09/2024 11:00 AM EST Office Visit Hematology [place] [phone] Faith Caba MD [facility] DR [place] [address] 11/09/2024 12:00 PM EST Appointment Hematology [place] [phone] Scheduled Procedures Name Priority Associated [...] Action Action Date Dose Rate Site leuprolide (LUPRON) injection 22.5 mg 22.5 mg, Intramuscular, ONCE, 1 dose, On Sat10/22/17 at 1245, Routine Given 10/22/2017 12:32 PM EST 22.5 mg Right Gluteal documented in this encounter Care Teams Bar Assistant Relationship Specialty Start Date End Date Kennedi Shaver MD [address] [place] [address] PCP - General 08/22/10 08/01/20 documented as of this encounter
--- OUTSIDE RECORDS SUMMARY | 2024-09-11 15:28 | XMS_ITS | Encounter Summary ---
Author Organization Formerly [facility] [place] [address] Care Team Providers Care Insurance Verification Specialist Name Role Phone Kennedi Shaver MD Primary Care Provider [phone] Encounter Details Date Type Department Care Team (Latest Contact Info) Description 05/21/2017 9:39 AM EDT - 05/21/2017 11:59 PM EDT Hospital Encounter Hematology [place] [address] Neoplasm of prostate, distant metastasis staging category [...] 50 mg by mouth as needed. 06/14/2014 predniSONE (DELTASONE) 5 mg Tablet Take 1 tablet by mouth daily. 30 tablet 11 04/29/2017 05/06/2018 abiraterone 500 mg Tablet Take 1,000 mg by mouth daily. 60 tablet 04/26/2017 05/28/2017 ibuprofen (ADVIL;MOTRIN) 200 mg Tablet Take 200 [...] 4:30 PM EST Hospital En[place] [phone] Lizet Wilkes MD [facility] [place] [address] 09/29/2024 4:30 PM EST - 09/29/2024 5:00 PM EST [place] [phone] Lizet Wilkes MD [facility] [place] [address] EGD, UPPER GI ENDOSCOPY (WRVU 2.09) 11/09/2024 10:00 AM EST Laboratory Appointment Lab at [facility] Hematology Oncology [address] [place] [phone] 11/09/2024 11:00 AM EST Office Visit [place]ematology [place] [phone] Faith Caba MD [facility] DR HEMATOLOGY [place] [address] (work) 11/09/2024 12:00 PM EST Appointment Hematology and Oncology at [place] [phone] Scheduled Procedures Name Priority Associated Diagnoses Date/Ti me EGD, UPPER GI ENDOSCOPY (WRVU 2.09) Gastroesophageal reflux disease with esophagitis, unspecified whether hemorrhage 09/29/2024 4:30 PM EST documented as of this encounter Procedures Procedure Name Priority Date/Time Associated Diagnosis Comments COMPREHENSIVE METABOLIC PANEL Routine 05/21/2017 9:49 AM EDT Neoplasm of prostate, 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 Comment:Diabetes: >=200 mg/d L plus symptoms Blood Urea Nitrogen 18 10 - 20 mg/dL [facility] Creatinine 0.96 0.80 - 1.50 mg/dL [facility] Comment: Please note that the pediatric reference intervals supplied above were not validated at [facility]. Results from pediatric patients should be interpreted in conjunction to the patient's age, height and muscle mass. Sodium 141 135 - 145 mmol/L [facility] Potassium 4.2 3.5 - 5.0 mmol/L [facility] Comment: Please note: ??Patients with WBC >100,000 may have falsely elevated Potassium levels. ??For accurate Potassium quantification in these patients send serum separator tube (gold top) for subsequent determinations. ??Contact the Clinical Chemistry Laboratory if there are any questions. Chloride 104 98 - 107 mmol/L [facility] Carbon Dioxide 24 22 - 31 mmol/L [facility] Anion Gap 13 5 - 15 mmol/L [facility] Calcium 9.4 8.5 - 10.5 mg/dL [facility] Protein, Total 7.1 6.1 - 8.0 gm/dL [facility] Albumin 4.4 3.2 - 5.2 gm/dL [facility] Aspartate Aminotransferase 33 0 - 39 unit/L [facility] Alanine Aminotransferase 43 0 - 55 unit/L [facility] Alkaline Phosphatase 77 40 - 120 unit/L [facility] Bilirubin, Total 0.7 0.2 - 1.3 mg/dL [facility] Est Glomerular Filtration Rate >60 >=60 [facility] Comment: This estimated GFR (eGFR) value was calculated using the MDRD equation which has been validated on patients between the ages of 18 and 70. The MDRD should not be used to assess kidney function in patients < 18 years of age or in patients with extremes of body mass, or in patients with acute kidney failure. This value should be multiplied by 1.2 for patients. For further information please copy and paste the following links into your internet browser. http://[email or web address]/DHnkdep http://[email or web address]/DHMCnkf Blood specimen (specimen) 05/21/2017 9:49 AM EDT 05/21/2017 10:08 AM EDT Narrative Resulting Agency Comment Spec In Lab Faith Caba MD CHEMISTRY ORDERABLES [facility] [place] [address] documented in this encounter Visit Diagnoses Diagnosis Neoplasm of prostate, distant metastasis staging category M1c: distant metastasis with or without metastasis to bone Gastroesophageal reflux disease with esophagitis, unspecified whether hemorrhage documented in this encounter Care Teams Insurance Verification Specialist Relationship Specialty Start Date End Date Kenendi Shaver MD [facility] [address] [place] [address] PCP - General 08/22/10 08/01/20 documented as of this encounter
--- OUTSIDE RECORDS SUMMARY | 2024-09-11 15:28 | XMS_ITS | Encounter Summary ---
Author Organization [facility]ly [facility] [place] [address] Care Team Providers Care Vacuum Cleaner Repair Person Name Role Phone Kennedi Shaver MD Primary Care Provider [phone] Reason for Visit * Reason Onset Date Comments Questions 05/22/2017 Encounter Details Date Type Department Care Team (Late st Contact Info) Description 05/22/2017 Telephone Hematology [place] [phone] Patricia James BOARDER STEAM ROOM Questions Social History Tobacco Use Types Packs/Day [...] Telephone Encounter - Patricia James RN - 05/28/2017 10:10 AM EDT [phone][facility] * Telephone Encounter - Patricia James RN - 05/22/2017 10:24 AM EDT Message received from legal secretary: Chidi called with questions about his prednisone and xytiga. He said he forgot to take the prednisone earlier and was wondering if he could take it with his xytiga. He can be reached at [phone] Reviewed how to take zytiga and prednisone, stressed need for prednisone to be taken w/ food and zytiga on an empty stomach. Suggested that he take his prednisone w/ his lunch today. All pt's questions answered to his apparent satisfaction. He is aware to call clinic w/any concerns/questions. documented in this encounter Plan of Treatment Upcoming Encounters Date Type Department Care Team (Latest Contact Info) Description 09/29/2024 4:30 PM EST Hospital Encounter [place] [phone] Lizet Wilkes MD [facility] [place] [address] 09/29/2024 4:30 PM EST - 09/29/2024 5:00 PM EST Surgery [place] [address] Lizet Wilkes MD [facility] [place] [address] EGD, UPPER GI ENDOSCOPY (WRVU 2.09) 11/09/2024 10:00 AM EST Laboratory Appointment Lab at [facility] Hematology Oncology [address] [place] [phone] 11/09/2024 11:00 AM EST Office Visit Hematology [place] [phone] Faith Caba MD [facility] DR HEMATOLOGY [place] [address] 11/09/2024 12:00 PM EST Appointment Hematology [place] [phone] Scheduled Procedures Name Priority Associated Diagnoses Date/Ti me EGD, UPPER GI ENDOSCOPY (WRVU 2.09) Gastroesophageal reflux disease with esophagitis, unspecified whether hemorrhage 09/29/2024 4:30 PM EST documented as of this encounter Visit Diagnoses Not on filedocumented in this encounter Care Teams Vacuum Cleaner Repair Person Relationship Specialty Start Date End Date Kennedi Shaver MD [address] [place] [address] PCP - General 08/22/10 08/01/20 documented as of this encounter
--- OUTSIDE RECORDS SUMMARY | 2024-09-11 15:28 | XMS_ITS | Encounter Summary ---
[place] [address] Care Team Providers Care Microfilmer Name Role Phone Kennedi Shaver MD Primary Care Provider [phone] Encounter Details Date Type Department Care Team (Late st Contact Info) Description 10/22/2017 11:30 AM EST Office Visit [place]ology [place] [address] Faith Caba MD [facility] [address] [place] [address] Neoplasm of prostate, distant metastasis staging category [...] Sign Reading Time Taken Comments Blood Pressure 162/71 10/22/2017 11:00 AM EST Pulse 67 10/22/2017 11:00 AM EST Temperature 36.4 ??C (97.5 ??F) 10/22/2017 11:[address] Respiratory Rate 17 10/22/2017 11:00 AM EST Oxygen Saturation 96% 10/22/2017 11:00 AM EST Inhaled Oxygen Concentration - - Weight 89.2 kg (196 lb 9.6 oz) 10/22/2017 11:00 AM EST Height 181 cm (5' 11.26) 10/22/2017 11:00 AM ES T Body Mass Index 27.22 10/22/2017 11:00 AM EST documented in this encounter Progress Notes * Faith Caba MD - 10/22/2017 11:30 AM EST Images from the original note were not included. N [facility] HEM ONC [facility] [address] ?? DATE: 10/22/2017 FOLLOW UP VISIT DIAGNOSIS: Metastatic prostate cancer [...] and lupron injection 7.5 mg on 03/20/2017 HPI: Murillo A Holaday returns for f/u. 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 He has noticed slightly more reliance on diary reminders over last few months (this is not new but more noticeable). He cont to have intermittent R knee pain which is stable. He aso has intermittent hot flushes but this seems to be slightly better. He denies any other pain, fever/chills, energy is good. 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 REVIEW OF SYSTEMS: Aside from above, the remainder of the the ROS was Specifically neg for lack of interest and depressed mood PAST MEDICAL HISTORY: 1. As above 2. GERD and Sol's esophagus S/p Alli Fundoplication 3. ELevated fasting glusoce 4. S/p distant appendectomy 5. S/p tonsilectomy MEDS: Medications 10/22/17 1115 Medication Sig Taking? abiraterone 500 mg Tablet Take 1,000 mg by mouth daily. Yes predniSONE (DELTASONE) 5 mg Tablet Take [...] as needed. Patient not taking: Reported on 03/12/2017 ALLERGY: No Known Allergies FAMILY HX: Reviewed no change SOCIAL HX: Social History Social History ??? Marital status: Spouse name: N/A ??? Number of children: N/A ??? Years of education: N/A Occupational History ??? Not on file. Social History Main Topics ??? Smoking status: Former Smoker Years: 15.00 ??? Smokeless tobacco: Former User Quit date: 02/13/1978 ??? Alcohol use 8.4 oz/week 14 Glasses of wine per week ??? Drug use: No ??? Sexual activity: Not on file Other Topics Concern ??? Not on file Social History Narrative PHYSICAL EXAM: BP 162/71 (Patient Position: Sitting) Pulse 67 Temp 36.4 ??C (97.5 ??F) (Temporal) Resp 17 Ht 181 cm (5' 11.26) Wt 89.2 kg (196 lb 9.6 oz) SpO2 96% BMI 27.22 kg/m2 PS=0 General: NAD Head: NCAT Neuro: No focal weakness Psych: Normal mood and affect. LABS: Recent Results (from the past 24 hour(s)) Comprehensive metabolic panel (non-fasting) Result Value Ref Range Glucose Lvl 90 65 - 199 mg/dL BUN 18 10 - 20 mg/dL Creatinine 0.92 0.80 - 1.50 mg/dL Sodium 145 135 - 145 mmol/L Potassium 3.9 3.5 - 5.0 mmol/L Chloride 105 98 - 107 mmol/L CO2 28 22 - 31 mmol/L Anion Gap 12 5 - 15 mmol/L Calcium 9.2 8.5 - 10.5 mg/dL Total Protein 6.8 6.1 - 8.0 gm/dL Albumin 4.1 3.2 - 5.2 gm/dL AST 25 0 - 39 unit/L ALT 29 0 - 55 unit/L Alk Phos 85 40 - 120 unit/L Total Bilirubin 0.6 0.2 - 1.3 mg/dL Estimated GFR >60 >=60 PSA Result Value Ref Range PSA Total 0.12 0.00 - 4.00 ng/mL Hemogram Result Value Ref Range WBC 6.0 4.0 - 9.5 x10(3)/mcL RBC 4.41 (L) 4.58 - 5.54 x10(6)/mcL Hemoglobin 13.3 (L) 13.7 - 16.5 gm/dL Hematocrit 40.3 (L) 40.5 - 48.5 % MCV 91.4 82.9 - 93.1 fL MCH 30.2 27.5 - 32.1 pg MCHC 33.0 32.0 - 35.7 gm/dL Platelets 196 145 - 357 x10(3)/mcL RDWSD 42.2 36.0 - 45.0 fL RDWCV 12.8 11.4 - 13.8 % MPV 10.5 7.6 - 12.9 fL nRBC % Auto 0.0 % nRBC Abs Auto 0.000 0.000 - 0.000 x10(3)/mcL Differential, Automated Result Value Ref Range Neutrophils % 56.5 % Neutr Abs (ANC) 3.38 1.70 - 6.10 x10(3)/mcL Lymphocytes % 23.7 % Lymphocytes Abs 1.4 0.9 - 3.2 x10(3)/mcL Monocytes % 14.9 % Monocyte Abs 0.9 0.3 - 0.9 x10(3)/mcL Eosinophils % 3.8 % Eosinophils Abs 0.2 0.0 - 0.4 x10(3)/mcL Basophils % 0.8 % Basophils Abs 0.0 0.0 - 0.1 x10(3)/mcL Immature Gran % 0.30 % Julisa Gran Abs 0.02 0.00 - 0.04 x10(3)/mcL IMAGING STUDIES: No new ASSESSMENT AND PLAN: Chidi A Holaday metastatic prostate cancer with extensive disease involving nodes and bones. He renita combination lupron+zytiga as first line therapy with very good clinical response based on returnof his baseline performance status. PSA continues to trend and is now 0.12! We spent our time discussing concerns over cognitive decline vs depression. ROS rules out major depression but he admits he certainly had to adjust to the dx and the associated sx. He has mild changefrom baseline so will cont to monitor and if changes cont would consider more formal testing with mental status test. He agrees with this. He has good QOL. SE were reviewed and are manageable. R knee pin unlikely to be disease of therapy related. Cont to monitor He will return in about 3 months with repeat labs and next schedule leuprolide Pt was instructed to call our clinic with any new symptom or any questions. Faith Caba MD, PhD Hematology/Oncology documented in this encounter Plan of Treatment Upcoming Encounters Date Type Department Care Team (Latest Contact Info) Description 09/29/2024 4:30 PM EST Hospital En[place] [address] Lizet Wilkes MD [facility] [place] [address] 09/29/2024 4:30 PM EST - 09/29/2024 5:00 PM EST Surgery Gastroenterology at [place] [phone] Lizet Wilkes MD [facility] [place] [address] EGD, UPPER GI ENDOSCOPY (WRVU 2.09) 11/09/2024 10:00 AM EST Laboratory Appointment Lab at [facility] [place] Hematology Oncology [address] [place], [place] [phone] 11/09/2024 11:00 AM EST Office Visit [place]ology [place] [address] Faith Caba MD [facility] [address] HEMATOLOGY [place] [address] 11/09/2024 12:00 PM EST Appointment Hematology and Oncology at [place] [phone] Scheduled Procedures Name Priority Associated Diagnoses Date/Ti me EGD, UPPER GI ENDOSCOPY (WRVU 2.09) Gastroesophageal reflux disease with esophagitis, unspecified whether hemorrhage 09/29/2024 4:30 PM EST documented as of this encounter Results * PSA (01/14/2018 9:26 AM EDT) [facility] Prostate Specific Antigen (Ultrasensitiv e) 0.04 0.00 - 4.00 ng/mL [facility] Blood specimen (specimen) 01/14/2018 9:26 AM EDT 01/14/2018 9:30 AM EDT Narrative Resulting Agency Comment Spec In Lab Faith Caba MD CHEMISTRY ORDERABLES [facility] [place] [address] * Comprehensive metabolic panel (non-fasting) (01/14/2018 9:26 AM EDT) [facility] Glucose 108 65 - 199 mg/dL [facility] Comment:Diabetes: >=200 mg/d L plus symptoms Blood Urea Nitrogen 16 10 - 20 mg/dL [facility] Creatinine 0.96 0.80 - 1.50 mg/dL [facility] Sodium 142 135 - 145 mmol/L [facility] Potassium 4.1 3.5 - 5.0 mmol/L [facility] Comment: Please note: ??Patients with WBC >100,000 may have falsely elevated Potassium levels. ??For accurate Potassium quantification in these patients send serum separator tube (gold top) for subsequent determinations. ??Contact the Clinical Chemistry Laboratory if there are any questions. Chloride 103 98 - 107 mmol/L [facility] Carbon Dioxide 24 22 - 31 mmol/L [facility] Anion Gap 15 5 - 15 mmol/L [facility] Calcium 9.7 8.5 - 10.5 mg/dL [facility] Protein, Total 7.1 6.1 - 8.0 gm/dL [facility] Albumin 4.3 3.2 - 5.2 gm/dL [facility] Aspartate Aminotransferase 28 0 - 39 unit/L [facility] Alanine Aminotransferase 30 0 - 55 unit/L [facility] Alkaline Phosphatase 103 40 - 120 unit/L [facility] Bilirubin, Total 0.6 0.2 - 1.3 mg/dL [facility] Est Glomerular Filtration Rate >60 >=60 [facility] Comment: The reported eGFR should be multiplied by 1.2 for patients. The MDRD is not an appropriate measure of renal function for patients with body mass extremes or in patients with acute kidney failure. http://[employer].com/DHnkdep http://[employer].com/DHMCnkf Blood specimen (specimen) 01/14/2018 9:26 AM EDT 01/14/2018 9:30 AM EDT Narrative Resulting Agency Comment Spec In Lab Faith Caba MD CHEMISTRY ORDERABLES [facility] [place] [address] documented in this encounter Visit Diagnoses Diagnosis Neoplasm of prostate, distant metastasis staging category M1c: distant metastasis with or without metastasis to bone Gastroesophageal reflux disease with esophagitis, unspecified whether hemorrhage documented in this encounter Care Teams Microfilmer Relationship Specialty Start Date End Date Kennedi Shaver MD [address] [facility] [address] [place] [address] PCP - General 08/22/10 08/01/20 documented as of this encounter
--- OUTSIDE RECORDS SUMMARY | 2024-09-11 15:28 | XMS_ITS | Encounter Summary ---
[place] [address] Care Team Providers Care Vp Of Marketing Name Role Phone Kennedi Shaver MD Primary Care Provider [phone] Reason for Visit * Reason Onset Date Comments Results 04/09/2018 Encounter Details Date Type Department Care Team (Late st Contact Info) Description 04/09/2018 Telephone Hematology [place] [phone] Patricia James PRE[employer] MANAGER ROOM Results Social History Tobacco Use Types Packs/Day Years [...] Telephone Encounter - Patricia James RN - 04/09/2018 2:20 PM EDT Message received from clerical secretary: [phone] Chidi requests a call to hear his PSA results from yesterday. Spoke w/ pt Results reviewed w/ pt, pt informed of PSA 0.02 result Pt knows to call clinic with any concerns and/or questions. documented in this encounter Plan of Treatment Upcoming Encounters Date Type Department Care Team (Latest Contact Info) Description 09/29/2024 4:30 PM EST Hospital Encounter Gastroenterology at [place] [phone] Lizet Wilkes MD [facility] [place] [address] 09/29/2024 4:30 PM EST - 09/29/2024 5:00 PM EST Surgery [place] [phone] Lizet Wilkes MD [facility] [place] [address] EGD, UPPER GI ENDOSCOPY (WRVU 2.09) 11/09/2024 10:00 AM EST Laboratory Appointment [place] [facility] [place] [address] [place], [place] [phone] 11/09/2024 11:00 AM EST Office Visit Hematology and Oncology at [place] [phone] Faith Caba MD [facility] [address] [place] [address] 11/09/2024 12:00 PM EST Appointment Hematology [place] [address] Scheduled Procedures Name Priority Associated Diagnoses Date/Ti nc EGD, UPPER GI ENDOSCOPY (WRVU 2.09) Gastroesophageal reflux disease with esophagitis, unspecified whether hemorrhage 09/29/2024 4:30 PM EST documented as of this encounter Visit Diagnoses Not on filedocumented in this encounter Care Teams Vp Of Marketing Relationship Specialty Start Date End Date Kennedi Shaver MD [address] [place] [address] PCP - General 08/22/10 08/01/20 documented as of this encounter
--- OUTSIDE RECORDS SUMMARY | 2024-09-11 15:28 | XMS_ITS | Encounter Summary ---
Author Organization [facility] [place] [address] Care Team Providers Care Inspector Aligning Name Role Phone Kennedi Shaver MD Primary Care Provider [phone] Encounter Details Date Type Department Care Team (Latest Contact Info) Description 10/22/2017 10:30 AM [facility] Hospital Encounter Hematology [place] [address] Neoplasm of prostate, distant metastasis staging category [...] 4:30 PM EST Hospital Encounter [place] [address] Lizet Wilkes MD [facility] [place] [address] 09/29/2024 4:30 PM EST - 09/29/2024 5:00 PM EST Surgery [place] [phone] Lizet Wilkes MD [facility] [place] [address] EGD, UPPER GI ENDOSCOPY (WRVU 2.09) 11/09/2024 10:00 AM EST Laboratory [place]ment [place] [facility] [address] [place] [phone] 11/09/2024 11:00 AM EST Office Visit Hematology [place] [phone] Faith Caba MD [facility] DR H[place] [address] 11/09/2024 12:00 PM EST Appointment Hematology and Oncology at [place] [phone] Scheduled Procedures Name Priority Associated Diagnoses Date/Ti me EGD, UPPER GI ENDOSCOPY (WRVU 2.09) Gastroesophageal reflux disease with esophagitis, unspecified whether hemorrhage 09/29/2024 4:30 PM EST documented as of this encounter Procedures Procedure Name Priority Date/Time Associated Diagnosis Comments HEMOGRAM Routine 10/22/2017 10:36 AM EST Neoplasm of prostate, distant metastasis staging category M1c: distant metastasis with or without metastasis to bone DIFFERENTIAL, AUTOMATED Routine 10/22/2017 10:36 AM EST Neoplasm of prostate, distant metastasis staging category M1c: distant metastasis with or without metastasis to bone CBC (WITH DIFF) Routine 10/22/2017 10:36 AM EST Neoplasm of prostate, distant metastasis staging category M1c: distant metastasis with or without metastasis to bone PSA (ULTRASENSITIVE) Routine 10/22/2017 10:36 AM EST Neoplasm of prostate, distant metastasis staging category M1c: distant metastasis with or without metastasis to bone COMPREHENSIVE METABOLIC PANEL Routine 10/22/2017 10:36 AM EST Neoplasm of prostate, distant metastasis staging category M1c: distant metastasis with or without metastasis to bone documented in this encounter Results * Differential, Automated (10/22/2017 10:36 AM EST) Neutrophil % 56.5 % [facility] Neutrophil Absolute 3.38 1.70 - 6.10 x10(3)/[facility] Lymph % 23.7 % [facility] Lymphocytes Abs 1.4 0.9 - 3.2 x10(3)/[facility] Monocyte % 14.9 % [facility] Monocyte Abs 0.9 0.3 - 0.9 x10(3)/[facility] Eos % 3.8 % [facility] Eosinophils Abs 0.2 0.0 - 0.4 x10(3)/[facility] Basophil % 0.8 % [facility] Baso Absolute 0.0 0.0 - 0.1 x10(3)/[facility] Immature Gran % 0.30 % [facility] Comment: Immature granulocytes(IG's)percentage and absolute count will include metamyelocytes, myelocytes, and promyelocytes. Blood smears from CBCs yielding IG's will be scanned manually for concordance. If this scan disagrees with the automated IG or if promyelocytes are noted, a manual differential will be performed. Immature Gran Absolute 0.02 0.00 - 0.04 x10(3)/[facility] Blood specimen (specimen) 10/22/2017 10:36 AM EST 10/22/2017 11:14 AM EST Narrative Resulting Agency Comment Spec In Lab Faith Caba MD HEMATOLOGY ORDERABLE S Performing Organization Address City/State/[facility] Co de Phone Number [facility] [place] [address] * (ABNORMAL) Hemogram (10/22/2017 10:36 AM EST) White Blood Cell 6.0 4.0 - 9.5 x10(3)/[facility] Red Blood Cell 4.41(L) 4.58 - 5.54 x10(6)/[facility] Hemoglobin 13.3(L) 13.7 - 16.5 gm/dL [facility] Hematocrit 40.3(L) 40.5 - 48.5 % [facility] Mean Cell Volume 91.4 82.9 - 93.1 fL [facility] Mean Cell Hemoglobin 30.2 27.5 - 32.1 pg [facility] Mean Cell Hemoglobin Concentration 33.0 32.0 - 35.7 gm/dL [facility] Platelet 196 145 - 357 x10(3)/[facility] RDW Standard Deviation 42.2 36.0 - 45.0 fL [facility] RDW coefficient of variation 12.8 11.4 - 13.8 % [facility] Mean Platelet Volume 10.5 7.6 - 12.9 fL [facility] NRBC% auto 0.0 % [facility] NRBC Absolute 0.000 0.000 - 0.000 x10(3)/mc L [facility] Blood specimen (specimen) 10/22/2017 10:36 AM EST 10/22/2017 11:14 AM EST Narrative Resulting Agency Comment Spec In Lab Faith Caba MD HEMATOLOGY ORDERABLE S Performing Organization Address [facility] Co de Phone Number [facility] [place] [address] * PSA (10/22/2017 10:36 AM EST) Prostate Specific Antigen (Ultrasensitiv e) 0.12 0.00 - 4.00 ng/mL [facility] Blood specimen (specimen) 10/22/2017 10:36 AM EST 10/22/2017 11:14 AM EST Narrative Resulting Agency Comment Spec In Lab Faith Caba MD CHEMISTRY ORDERABLES Performing Organization Address [facility] Co de Phone Number [facility] [place] [address] * Comprehensive metabolic panel (non-fasting) (10/22/2017 10:36 AM EST) Glucose 90 65 - 199 mg/dL [facility] Comment:Diabetes: >=200 mg/d L plus symptoms Blood Urea Nitrogen 18 10 - 20 mg/dL [facility] Creatinine 0.92 0.80 - 1.50 mg/dL [facility] Sodium 145 135 - 145 mmol/L [facility] Potassium 3.9 3.5 - 5.0 mmol/L [facility] Comment: Please note: ??Patients with WBC >100,000 may have falsely elevated Potassium levels. ??For accurate Potassium quantification in these patients send serum separator tube (gold top) for subsequent determinations. ??Contact the Clinical Chemistry Laboratory if there are any questions. Chloride 105 98 - 107 mmol/L [facility] Carbon Dioxide 28 22 - 31 mmol/L [facility] Anion Gap 12 5 - 15 mmol/L [facility] Calcium 9.2 8.5 - 10.5 mg/dL [facility] Protein, Total 6.8 6.1 - 8.0 gm/dL [facility] Albumin 4.1 3.2 - 5.2 gm/dL [facility] Aspartate Aminotransferase 25 0 - 39 unit/L [facility] Alanine Aminotransferase 29 0 - 55 unit/L [facility] Alkaline Phosphatase 85 40 - 120 unit/L [facility] Bilirubin, Total 0.6 0.2 - 1.3 mg/dL [facility] Est Glomerular Filtration Rate >60 >=60 [facility] Comment: The reported eGFR should be multiplied by 1.2 for patients. The MDRD is not an appropriate measure of renal function for patients with body mass extremes or in patients with acute kidney failure. http://[employer]/DHnkdep http://[employer]/DHMCnkf Blood specimen (specimen) 10/22/2017 10:36 AM EST 10/22/2017 11:14 AM EST Narrative Resulting Agency Comment Spec In Lab Faith Caba MD CHEMISTRY ORDERABLES [facility] [place] [address] documented in this encounter Visit Diagnoses Diagnosis Neoplasm of prostate, distant metastasis staging category M1c: distant metastasis with or without metastasis to bone Gastroesophageal reflux disease with esophagitis, unspecified whether hemorrhage documented in this encounter Care Teams Inspector Aligning Relationship Specialty Start Date End Date Kennedi Shaver MD [address] [place] [address] PCP - General 08/22/10 08/01/20 documented as of this encounter
--- OUTSIDE RECORDS SUMMARY | 2024-09-11 15:28 | XMS_ITS | Encounter Summary ---
[place] [address] Care Team Providers Care Buddhist Monk Name Role Phone Kennedi Shaver MD Primary Care Provider [phone] Encounter Details Date Type Department Care Team (Latest Contact Info) Description 07/23/2017 8:58 AM EDT Hospital Encounter Hematology [place] [address] Neoplasm of prostate, distant metastasis staging category [...] 4:30 PM EST Hospital Encounter [place] [address] Lizet Wilkes MD [facility] [place] [address] 09/29/2024 4:30 PM EST - 09/29/2024 5:00 PM EST Surgery [place] [phone] Lizet Wilkes MD [facility] [place] [address] EGD, UPPER GI ENDOSCOPY (WRVU 2.09) 11/09/2024 10:00 AM EST Laboratory Appointment Lab at [facility] [place] Hematology Oncology [address] [place] [phone] 11/09/2024 11:00 AM EST Office Visit Hematology [place] [phone] Faith Caba MD [facility] [address] [place] [address] 11/09/2024 12:00 PM EST Appointment Hematology [place] [phone] Scheduled Procedures Name Priority Associated Diagnoses Date/Ti me EGD, UPPER GI ENDOSCOPY (WRVU 2.09) Gastroesophageal reflux disease with esophagitis, unspecified whether hemorrhage 09/29/2024 4:30 PM EST documented as of this encounter Procedures Procedure Name Priority Date/Time Associated Diagnosis Comments HEMOGRAM Routine 07/23/2017 9:05 AM EDT Neoplasm of prostate, distant metastasis staging category M1c: distant metastasis with or without metastasis to bone DIFFERENTIAL, AUTOMATED Routine 07/23/2017 9:05 AM EDT Neoplasm of prostate, distant metastasis staging category M1c: distant metastasis with or without metastasis to bone CBC (WITH DIFF) Routine 07/23/2017 9:05 AM EDT Neoplasm of prostate, distant metastasis staging category M1c: distant metastasis with or without metastasis to bone PSA (ULTRASENSITIVE) Routine 07/23/2017 9:05 AM EDT Neoplasm of prostate, distant metastasis staging category M1c: distant metastasis with or without metastasis to bone COMPREHENSIVE METABOLIC PANEL Routine 07/23/2017 9:05 AM EDT Neoplasm of prostate, distant metastasis staging category M1c: distant metastasis with or without metastasis to bone documented in this encounter Results * Differential, Automated (07/23/2017 9:05 AM EDT) Neutrophil % 76.2 % [facility] Neutrophil Absolute 5.25 1.70 - 6.10 x10(3)/[facility] Lymph % 13.8 % [facility] Lymphocytes Abs 1.0 0.9 - 3.2 x10(3)/[facility] Monocyte % 7.5 % [facility] Monocyte Abs 0.5 0.3 - 0.9 x10(3)/[facility] Eos % 1.5 % [facility] Eosinophils Abs 0.1 0.0 - 0.4 x10(3)/[facility] Basophil % 0.6 % [facility] Baso Absolute 0.0 0.0 - 0.1 x10(3)/[facility] Immature Gran % 0.40 % [facility] Comment: Immature granulocytes(IG's)percentage and absolute count will include metamyelocytes, myelocytes, and promyelocytes. Blood smears from CBCs yielding IG's will be scanned manually for concordance. If this scan disagrees with the automated IG or if promyelocytes are noted, a manual differential will be performed. Immature Gran Absolute 0.03 0.00 - 0.04 x10(3)/[facility] Blood specimen (specimen) 07/23/2017 9:05 AM EDT 07/23/2017 9:10 AM EDT Narrative Resulting Agency Comment Spec In Lab Faith Caba MD HEMATOLOGY ORDERABLE S Performing Organization Address City/State/[facility] Co de Phone Number [facility] [address] * (ABNORMAL) Hemogram (07/23/2017 9:05 AM EDT) White Blood Cell 6.9 4.0 - 9.5 x10(3)/ L [facility] Red Blood Cell 4.28(L) 4.58 - 5.54 x10(6)/ L [facility] Hemoglobin 13.1(L) 13.7 - 16.5 gm/dL [facility] Hematocrit 38.5(L) 40.5 - 48.5 % [facility] Mean Cell Volume 90.0 82.9 - 93.1 fL [facility] Mean Cell Hemoglobin 30.6 27.5 - 32.1 pg [facility] Mean Cell Hemoglobin Concentration 34.0 32.0 - 35.7 gm/dL [facility] Platelet 224 145 - 357 x10(3)/ L [facility] RDW Standard Deviation 42.3 36.0 - 45.0 fL [facility] RDW coefficient of variation 12.8 11.4 - 13.8 % [facility] Mean Platelet Volume 10.1 7.6 - 12.9 fL [facility] NRBC% auto 0.0 % [facility] NRBC Absolute 0.000 0.000 - 0.000 x10(3)/mc L [facility] Blood specimen (specimen) 07/23/2017 9:05 AM EDT 07/23/2017 9:10 AM EDT Narrative Resulting Agency Comment Spec In Lab Faith Caba MD HEMATOLOGY ORDERABLE S Performing Organization Address [facility] Co de Phone Number [facility] [place] [address] * PSA (07/23/2017 9:05 AM EDT) Prostate Specific Antigen (Ultrasensitiv e) 1.02 0.00 - 4.00 ng/mL [facility] Blood specimen (specimen) 07/23/2017 9:05 AM EDT 07/23/2017 9:10 AM EDT Narrative Resulting Agency Comment Spec In Lab Faith Caba MD CHEMISTRY ORDERABLES Performing Organization Address City/[facility] Co de Phone Number [facility] [place] [address] * Comprehensive metabolic panel (non-fasting) (07/23/2017 9:05 AM EDT) Glucose 113 65 - 199 mg/dL [facility] Comment:Diabetes: >=200 mg/d L plus symptoms Blood Urea Nitrogen 17 10 - 20 mg/dL [facility] Creatinine 0.91 0.80 - 1.50 mg/dL [facility] Sodium 142 135 - 145 mmol/L [facility] Potassium 4.0 3.5 - 5.0 mmol/L [facility] Comment: Please note: ??Patients with WBC >100,000 may have falsely elevated Potassium levels. ??For accurate Potassium quantification in these patients send serum separator tube (gold top) for subsequent determinations. ??Contact the Clinical Chemistry Laboratory if there are any questions. Chloride 103 98 - 107 mmol/L [facility] Carbon Dioxide 26 22 - 31 mmol/L [facility] Anion Gap 13 5 - 15 mmol/L [facility] Calcium 9.5 8.5 - 10.5 mg/dL [facility] Protein, Total 7.0 6.1 - 8.0 gm/dL [facility] Albumin 4.3 3.2 - 5.2 gm/dL [facility] Aspartate Aminotransferase 21 0 - 39 unit/L [facility] Alanine Aminotransferase 21 0 - 55 unit/L [facility] Alkaline Phosphatase 74 40 - 120 unit/L [facility] Bilirubin, Total 0.7 0.2 - 1.3 mg/dL [facility] Est Glomerular Filtration Rate >60 >=60 [facility] Comment: The reported eGFR should be multiplied by 1.2 for patients. The MDRD is not an appropriate measure of renal function for patients with body mass extremes or in patients with acute kidney failure. http://Devunity/DHnkdep http://Devunity/DHMCnkf Blood specimen (specimen) 07/23/2017 9:05 AM EDT 07/23/2017 9:10 AM EDT Narrative Resulting Agency Comment Spec In Lab Faith Caba MD CHEMISTRY ORDERABLES [facility] [place] [address] documented in this encounter Visit Diagnoses Diagnosis Neoplasm of prostate, distant metastasis staging category M1c: distant metastasis with or without metastasis to bone Gastroesophageal reflux disease with esophagitis, unspecified whether hemorrhage documented in this encounter Care Teams Buddhist Monk Relationship Specialty Start Date End Date Kennedi Shaver MD [address] [place] [address] PCP - General 08/22/10 08/01/20 documented as of this encounter
--- OUTSIDE RECORDS SUMMARY | 2024-09-11 15:28 | XMS_ITS | Encounter Summary ---
Author Organization [facility] [place] [address] Care Team Providers Care Artist Suspect Name Role Phone Kennedi Shaver MD Primary Care Provider [phone] Reason for Visit * Reason Onset Date Comments Questions 05/21/2017 Encounter Details Date Type Department Care Team (Late st Contact Info) Description 05/21/2017 Telephone Hematology [place] [phone] Patricia James [employer] SUPERVISOR ROOM Questions Social History Tobacco Use Types [...] Telephone Encounter - Patricia James RN - 05/21/2017 1:02 PM EDT Message received from attendance secretary: Patient called he has a medication question about the [facility]. He can be reached at [phone]. Spoke w/ pt who stated that he is doing fine on the zytiga, hasn't had any issues w/ it. 'If anything I've been forgetting my illness, working hard and enjoying life'. Has about 10days left on current script. Pt states that he was able to reschedule his appt for next Tu but did get his labs done today and is fine w/ waiting till Tu to discuss w/ the provider. Reviewed that in general pt will simply call pharmacy for refill however current script requires renewal so will pend script to provider to be sent to [facility] Special[facility]. documented in this encounter Plan of Treatment Upcoming Encounters Date Type Department Care Team (Latest Contact Info) Description 09/29/2024 4:30 PM EST Hospital Encounter [place] [address] Lizet Wilkes MD [facility] [place] [address] 09/29/2024 4:30 PM EST - 09/29/2024 5:00 PM EST [place] [phone] Lizet Wilkes MD [facility] [place] [address] EGD, UPPER GI ENDOSCOPY (WRVU 2.09) 11/09/2024 10:00 AM EST Laboratory Appointment Lab at [facility] [place] [facility] Hematology Oncology [address] [place] [phone] 11/09/2024 11:00 AM EST Office Visit Hematology [place] [phone] Faith Caba MD [facility] HEMATOLOGY [place] [address] 11/09/2024 12:00 PM EST Appointment Hematology [place] [address] Scheduled Procedures Name Priority Associated Diagnoses Date/Ti me EGD, UPPER GI ENDOSCOPY (WRVU 2.09) Gastroesophageal reflux disease with esophagitis, unspecified whether hemorrhage 09/29/2024 4:30 PM EST documented as of this encounter Visit Diagnoses Diagnosis Malignant neoplasm of prostate Gastroesophageal reflux disease with esophagitis, unspecified whether hemorrhage documented in this encounter Care Teams Artist Suspect Relationship Specialty Start Date End Date Kennedi Shaver MD [facility] [address] [place] [address] PCP - General 08/22/10 08/01/20 documented as of this encounter
--- OUTSIDE RECORDS SUMMARY | 2024-09-11 15:28 | XMS_ITS | Encounter Summary ---
Author Organization [facility] [place] [address] Care Team Providers Care Manager Outreach Name Role Phone Kennedi Shaver MD Primary Care Provider [phone] Encounter Details Date Type Department Care Team (Latest Contact Info) Description 04/08/2018 9:14 AM EDT - 04/08/2018 11:59 PM EDT Hospital Encounter [place]ology [place] [address] Neoplasm of prostate, distant metastasis staging category [...] 4:30 PM EST Hospital En[place] [phone] Lizet Wilkes MD [facility] [place] [address] 09/29/2024 4:30 PM EST - 09/29/2024 5:00 PM EST [place] [phone] Lizet Wilkes MD [facility] [place] [address] EGD, UPPER GI ENDOSCOPY (WRVU 2.09) 11/09/2024 10:00 AM EST Laboratory Appointment Lab [place] [facility] [place] [address] [place] [phone] 11/09/2024 11:00 AM EST Office Visit [place]ology [place] [phone] Faith Caba MD [facility] DR [place] [address] 11/09/2024 12:00 PM EST Appointment Hematology and Oncology at [place] [phone] Scheduled Procedures Name Priority Associated Diagnoses Date/Ti me EGD, UPPER GI ENDOSCOPY (WRVU 2.09) Gastroesophageal reflux disease with esophagitis, unspecified whether hemorrhage 09/29/2024 4:30 PM EST documented as of this encounter Procedures Procedure Name Priority Date/Time Associated Diagnosis Comments HEMOGRAM Routine 04/08/2018 9:37 AM EDT Neoplasm of prostate, distant metastasis staging category M1c: distant metastasis with or without metastasis to bone DIFFERENTIAL, AUTOMATED Routine 04/08/2018 9:37 AM EDT Neoplasm of prostate, distant metastasis staging category M1c: distant metastasis with or without metastasis to bone CBC (WITH DIFF) Routine 04/08/2018 9:37 AM EDT Neoplasm of prostate, distant metastasis staging category M1c: distant metastasis with or without metastasis to bone PSA (ULTRASENSITIVE) Routine 04/08/2018 9:37 AM EDT Neoplasm of prostate, distant metastasis staging category M1c: distant metastasis with or without metastasis to bone COMPREHENSIVE METABOLIC PANEL Routine 04/08/2018 9:37 AM EDT Neoplasm of prostate, distant metastasis staging category M1c: distant metastasis with or without metastasis to bone documented in this encounter Results * Differential, Automated (04/08/2018 9:37 AM EDT) Neutrophil % 64.3 % [facility] Neutrophil Absolute 4.36 1.70 - 6.10 x10(3)/[facility] Lymph % 20.4 % [facility] Lymphocytes Abs 1.4 0.9 - 3.2 x10(3)/[facility] Monocyte % 10.0 % [facility] Monocyte Abs 0.7 0.3 - 0.9 x10(3)/[facility] Eos % 4.3 % [facility] Eosinophils Abs 0.3 0.0 - 0.4 x10(3)/[facility] Basophil % 0.6 % [facility] Baso Absolute 0.0 0.0 - 0.1 x10(3)/[facility] Immature Gran % 0.40 % [facility] Comment: Immature granulocytes(IG's)percentage and absolute count will include metamyelocytes, myelocytes, and promyelocytes. Blood smears from CBCs yielding IG's will be scanned manually for concordance. If this scan disagrees with the automated IG or if promyelocytes are noted, a manual differential will be performed. Immature Gran Absolute 0.03 0.00 - 0.04 x10(3)/[facility] Blood specimen (specimen) 04/08/2018 9:37 AM EDT 04/08/2018 10:00 AM EDT Narrative Resulting Agency Comment Spec In Lab Deborah Hector VESSEL CAPTAIN HEMATOLOGY ORDERAB LES [facility] [place] [address] * (ABNORMAL) Hemogram (04/08/2018 9:37 AM EDT) White Blood Cell 6.8 4.0 - 9.5 x10(3)/mc L [facility] Red Blood Cell 4.38(L) 4.58 - 5.54 x10(6)/mc L [facility] Hemoglobin 12.9(L) 13.7 - 16.5 gm/dL [facility] Hematocrit 39.0(L) 40.5 - 48.5 % [facility] Mean Cell Volume 89.0 82.9 - 93.1 fL [facility] Mean Cell Hemoglobin 29.5 27.5 - 32.1 pg [facility] Mean Cell Hemoglobin Concentration 33.1 32.0 - 35.7 gm/dL [facility] Platelet 244 145 - 357 x10(3)/mc L [facility] RDW Standard Deviation 42.8 36.0 - 45.0 [facility] RDW coefficient of variation 13.2 11.4 - 13.8 % [facility] Mean Platelet Volume 10.2 7.6 - 12.9 [facility] NRBC% auto 0.0 % [facility] NRBC Absolute 0.000 0.000 - 0.000 x10(3)/mc L [facility] Blood specimen (specimen) 04/08/2018 9:37 AM EDT 04/08/2018 10:00 AM EDT Narrative Resulting Agency Comment Spec In Lab Deborah Hector APRN HEMATOLOGY ORDERAB LES Performing Organization Address [facility]/ZIP Co de Phone Number [facility] [place] [address] * PSA (04/08/2018 9:37 AM EDT) Prostate Specific Antigen (Ultrasensitiv e) 0.02 0.00 - 4.00 ng/mL [facility] Blood specimen (specimen) 04/08/2018 9:37 AM EDT 04/08/2018 10:00 AM EDT Narrative Resulting Agency Comment Spec In Lab Deborah Hector VESSEL CAPTAIN CHEMISTRY ORDERABL ES Performing Organization Address [facility]/ZIP Co de Phone Number [facility] [place] [address] * (ABNORMAL) Comprehensive metabolic panel (non-fasting) (04/08/2018 9:37 AM EDT) Glucose 104 65 - 199 mg/dL [facility] Comment:Diabetes: >=200 mg/d L plus symptoms Blood Urea Nitrogen 17 10 - 20 mg/dL [facility] Creatinine 0.90 0.80 - 1.50 mg/dL [facility] [...] questions. Chloride 103 98 - 107 mmol/L [facility] Carbon Dioxide 23 22 - 31 mmol/L [facility] Anion Gap 16(H) 5 - 15 mmol/L [facility] Calcium 9.3 8.5 - 10.5 mg/dL [facility] Protein, Total 6.6 6.1 - 8.0 gm/dL [facility] Albumin 4.2 3.2 - 5.2 gm/dL [facility] Aspartate Aminotransferase 20 0 - 39 unit/L [facility] Alanine Aminotransferase 17 0 - 55 unit/L [facility] Alkaline Phosphatase 101 40 - 120 unit/L [facility] Bilirubin, Total 0.7 0.2 - 1.3 mg/dL [facility] Est Glomerular Filtration Rate 84 >=60 mL/min/1. 73 m?? [facility] Comment: The eGFR was calculated using the CKD-EPI equation. As with all creatinine based estimates of kidney function, eGFR values calculated with the CKD-EPI equation are not accurate in patients with acute kidney failure, extremes of body mass or the acutely ill. http://Instant Opinion/LiveQoSnkdep http://Instant Opinion/[facility] – TULS[facility]kf eGFR 98 >=60 mL/min/1. 73 m?? [facility] Comment: The eGFR was calculated using the CKD-EPI equation. As with all creatinine based estimates of kidney function, eGFR values calculated with the CKD-EPI equation are not accurate in patients with acute kidney failure, extremes of body mass or the acutely ill. http://Instant Opinion/LiveQoSnkdep http://Instant Opinion/[facility]ULS[facility]kf Blood specimen (specimen) 04/08/2018 9:37 AM EDT 04/08/2018 10:00 AM EDT Narrative Resulting Agency Comment Spec In Lab Deborah Hector VESSEL CAPTAIN CHEMISTRY ORDERABL ES [facility] [place] [address] documented in this encounter Visit Diagnoses Diagnosis Neoplasm of prostate, distant metastasis staging category M1c: distant metastasis with or without metastasis to bone Gastroesophageal reflux disease with esophagitis, unspecified whether hemorrhage documented in this encounter Care Teams Manager Outreach Relationship Specialty Start Date End Date Kennedi Shaver MD [address] [place] [address] PCP - General 08/22/10 08/01/20 documented as of this encounter
--- OUTSIDE RECORDS SUMMARY | 2024-09-11 15:28 | XMS_ITS | Encounter Summary ---
Author Organization [facility] [place] [address] Care Team Providers Care Pipe Line Walker Name Role Phone Kennedi Shaver MD Primary Care Provider [phone] Encounter Details Date Type Department Care Team (Latest Contact Info) Description 01/14/2018 9:23 AM EDT - 01/14/2018 11:59 PM EDT Hospital Encounter [place] [address] Neoplasm of prostate, distant metastasis staging category [...] Progress Notes * Stephanie Woodson RN - 01/14/2018 11:23 AM EDT Patient Name: Chidi Carbone Patient Age: 72 y.o. Birthdate: 1945 Admit date: 01/14/2018 Attending Physician: No att. providers found Access visit. See MAR and/or flowsheet. documented in this encounter Plan of Treatment Upcoming Encounters Date Type Department Care Team (Latest Contact Info) Description 09/29/2024 4:30 PM EST Hospital En[place] [address] Lizet Wilkes MD [facility] [place] [address] 09/29/2024 4:30 PM EST - 09/29/2024 5:00 PM EST [place] [address] Lizet Wilkes MD [facility] [place] [address] EGD, UPPER GI ENDOSCOPY (WRVU 2.09) 11/09/2024 10:00 AM EST Laboratory Appointment Lab at [facility] [place] Hematology Oncology [address] [place] [phone] 11/09/2024 11:00 AM EST Office Visit [place] [phone] Faith Caba MD [facility] DR HEMATOLOGY [place] [address] 11/09/2024 12:00 PM EST Appointment Hematology [place] [phone] Scheduled Procedures Name Priority Associated Diagnoses Date/Ti [...] 22.5 mg, Intramuscular, ONCE, 1 dose, On Sat01/14/18 at 1130, Routine Given 01/14/2018 11:17 AM EDT 22.5 mg documented in this encounter Care Teams Pipe Line Walker Relationship Specialty Start Date End Date Kennedi Shaver MD [address] [place] [address] PCP - General 08/22/10 08/01/20 documented as of this encounter
--- OUTSIDE RECORDS SUMMARY | 2024-09-11 15:28 | XMS_ITS | Encounter Summary ---
Author Organization [facility] [place] [address] Care Team Providers Care Tool And Fixture Repairer Name Role Phone Kennedi Shaver MD Primary Care Provider [phone] Reason for Visit * Reason Comments Medication Refill Encounter Details Date Type Department Care Team (Late st Contact Info) Description 05/20/2018 Refill Hematology [place] [phone] Faith Caba MD [facility] [place] [address] Social History Tobacco Use Types Packs/Day Years [...] (Latest Contact Info) Description 09/29/2024 4:30 PM [facility] Hospital Encounter [place] [phone] Lizet Wilkes MD [facility] [place] [address] 09/29/2024 4:30 PM EST - 09/29/2024 5:00 PM EST Surgery [place] [address] Lizet Wilkes MD [facility] [place] [address] EGD, UPPER GI ENDOSCOPY (WRVU 2.09) 11/09/2024 10:00 AM EST Laboratory Appointment Lab at [facility] Hematology Oncology [address] [place] [phone] 11/09/2024 11:00 AM EST Office Visit Hematology and Oncology at [place] [phone] Faith Caba MD [facility] [place] [address] 11/09/2024 12:00 PM EST Appointment Hematology [place] [address] Scheduled Procedures Name Priority Associated Diagnoses Date/Ti me EGD, UPPER GI ENDOSCOPY (WRVU 2.09) Gastroesophageal reflux disease with esophagitis, unspecified whether hemorrhage 09/29/2024 4:30 PM EST documented as of this encounter Visit Diagnoses Not on filedocumented in this encounter Care Teams Tool And Fixture Repairer Relationship Specialty Start Date End Date Kennedi Shaver MD [facility] [address] [place] [address] PCP - General 08/22/10 08/01/20 documented as of this encounter
--- OUTSIDE RECORDS SUMMARY | 2024-09-11 15:28 | XMS_ITS | Encounter Summary ---
[place] [address] Care Team Providers Care Cartographic Aide Name Role Phone Kennedi Shaver MD Primary Care Provider Encounter Details Date Type Department Care Team (Latest Contact Info) Description 04/08/2018 9:13 AM EDT Hospital Encounter Hematology [place] [address] Neoplasm of prostate, distant metastasis staging category [...] as of this encounter Progress Notes * Maria Esther Marshall RN - 04/08/2018 11:50 AM EDT Patient Name: Chidi Carbone Patient Age: 72 y.o. Birthdate: 1945 Admit date: 04/08/2018 Attending Physician: No att. providers found Access visit. See MAR and/or flowsheet. Lupron 22.5mg given in (R) gluteal muscle without incident. Pt tolerated well. documented in this encounter Plan of Treatment Upcoming Encounters Date Type Department Care Team (Latest Contact Info) Description 09/29/2024 4:30 PM EST Hospital En[place] [address] Lizet Wilkes MD [facility] [place] [address] 09/29/2024 4:30 PM EST - 09/29/2024 5:00 PM EST [place] [phone] Lizet Wilkes MD [facility] [place] [address] EGD, UPPER GI ENDOSCOPY (WRVU 2.09) 11/09/2024 10:00 AM EST Laboratory Appointment Lab at [facility] [place] Hematology Oncology [address] [place] [phone] 11/09/2024 11:00 AM EST Office Visit Hematology [place] [address] Faith Caba MD [facility] [place] [address] 11/09/2024 12:00 PM EST Appointment Hematology and Oncology at [place] [phone] Scheduled Procedures Name Priority Associated Diagnoses Date/Ti [...] 22.5 mg, Intramuscular, ONCE, 1 dose, On Sat04/08/18 at 1145, Routine, This agent is restricted to outpatient use. Is this drug being given as an outpatient? Yes Given 04/08/2018 11:49 AM EDT 22.5 mg documented in this encounter Care Teams Cartographic Aide Relationship Specialty Start Date End Date Kennedi Shaver MD [facility] [address] [place] [address] PCP - General 08/22/10 08/01/20 documented as of this encounter
--- OUTSIDE RECORDS SUMMARY | 2024-09-11 15:28 | XMS_ITS | Encounter Summary ---
Author Organization [facility] [place] [address] Care Team Providers Care House Parent Name Role Phone Kennedi Shaver MD Primary Care Provider [phone] Reason for Visit * Reason Onset Date Comments Medication Refill 05/06/2018 Encounter Details Date Type Department Care Team (Late st Contact Info) Description 05/06/2018 Refill Hematology [place] [address] Patricia James DATA LIBRARIAN ROOM Social History Tobacco Use Types Packs/Day [...] Telephone Encounter - Patricia James RN - 05/06/2018 11:05 AM EDT Message received from driveway attendant: pt needs a refill of predniSONE (DELTASONE) 5 mg Tablet [facility] - [place], [place] - [address] Script pended to provider for review, signature and escribe. documented in this encounter Plan of Treatment Upcoming Encounters Date Type Department Care Team (Latest Contact Info) Description 09/29/2024 4:30 PM EST Hospital Encounter [place] [address] Lizet Wilkes MD [facility] [place] [address] 09/29/2024 4:30 PM EST - 09/29/2024 5:00 PM EST Surgery [place] [phone] Lizet Wilkes MD [facility] [address] EGD, UPPER GI ENDOSCOPY (WRVU 2.09) 11/09/2024 10:00 AM EST Laboratory Appointment Lab at [facility] [place] Hematology Oncology [address] [place] [phone] 11/09/2024 11:00 AM EST Office Visit Hematology [place] [phone] Faith Caba MD [facility] [place] [address] 11/09/2024 12:00 PM EST Appointment Hematology [place] [phone] Scheduled Procedures Name Priority Associated Diagnoses Date/Ti me EGD, UPPER GI ENDOSCOPY (WRVU 2.09) Gastroesophageal reflux disease with esophagitis, unspecified whether hemorrhage 09/29/2024 4:30 PM EST documented as of this encounter Visit Diagnoses Not on filedocumented in this encounter Care Teams House Parent Relationship Specialty Start Date End Date Kennedi Shaver MD [address] [place] [address] PCP - General 08/22/10 08/01/20 documented as of this encounter
--- OUTSIDE RECORDS SUMMARY | 2024-09-11 15:28 | XMS_ITS | Encounter Summary ---
Author Organization [facility] [place] [address] Care Team Providers Care Anodic Operator Name Role Phone Kennedi Shaver MD Primary Care Provider [phone] Encounter Details Date Type Department Care Team (Late st Contact Info) Description 01/14/2018 10:30 AM EDT Office Visit [place]ematology [place] [address] Faith Caba MD [facility] [place] [address] Deborah Hector, EMBOSSING PRESS OPERATOR [employer] [address] [place] [address] DR HEMATOLOGY AND ONCOLOGY [place], [place] [address] Neoplasm of prostate, distant metastasis staging category [...] Sign Reading Time Taken Comments Blood Pressure 155/82 01/14/2018 10:36 AM EDT Pulse 63 01/14/2018 10:36 AM EDT Temperature 36.7 ??C (98.1 ??F) 01/14/2018 10:36 AM E DT Respiratory Rate 18 01/14/2018 10:36 AM EDT Oxygen Saturation 94% 01/14/2018 10:36 AM EDT Inhaled Oxygen Concentration - - Weight 89.1 kg (196 lb 6.4 oz) 01/14/2018 10:36 AM EDT Height 181.6 cm (5' 11.5) 01/14/2018 10:36 AM E DT Body Mass Index 27.01 01/14/2018 10:36 AM EDT documented in this encounter Progress Notes * Deborah Hector, BARTOLO - 01/14/2018 10:30 AM EDT Images from the original note were not included. [facility] [place] [phone] ?? DATE: 01/14/2018 FOLLOW UP VISIT DIAGNOSIS: Metastatic prostate cancer [...] lupron injection 7.5 mg on 03/20/2017 HPI: Chidi Carbone returns for follow-up. He has been feeling well and tolerating ADT (takes Zytiga 500mg/day+pred and recieves Lupron every 3 months) with minimal SEs. Continues to write, recently traveled to [place] to deliver speech to [employer] and keeping physically active with sugaring and other pursuits. Reports noticed a welt R gluteal area about 2 weeks ago, measured ~0.5 cm or less, lasted about a week, itchy but not painful or draining. Wondered about possible reaction toLupron injection (received 10/22/17). Otherwise, in terms of ADT, reports occ mild hot flushes (~1/day) and some mood swings since starting treatment. Describes mood swings not as depression, but notices affected by things more than used to. Also reports chronic R knee pain for which he occ uses ibuprofen, millie if he knows will be active, with good effect. Otherwise, denies any recent illnesses, fevers, chills, unexpected weight changes. Reports good appetite, den n/v, changes in bowel habits. Reports improvement in urinary symptoms since starting therapy. Denies hematuria, pain/burning. REVIEW OF SYSTEMS: As noted in HPI; all other systems were reviewed and found to be negative. PAST MEDICAL HISTORY: 1. As above 2. GERD and Sol's esophagus S/p Alli Fundoplication 3. ELevated fasting glusoce 4. S/p distant appendectomy 5. S/p tonsilectomy MEDS: Medications 01/14/18 1110 Medication Sig Taking? abiraterone 500 mg Tablet Take 1,000 mg by mouth daily. Yes predniSONE (DELTASONE) 5 mg Tablet Take 1 tablet by mouth daily. Yes ibuprofen (ADVIL;MOTRIN) 200 mg Tablet Take 200 mg by mouth every 6 hours as needed for Pain. Yes pantoprazole (PROTONIX) 20 mg Tablet, Delayed Release (E.C.) Take 20 mg by mouth 2 times daily. Yes acetaminophen (TYLENOL) 650 mg/20.3 mL oral liquid Take 20.3 mLs by mouth every 4 hours as needed. Yes DUTASTERIDE/TAMSULOSIN HCL (ARNOL ORAL) Take by [...] file Social History Narrative PHYSICAL EXAM: BP 155/82 (Patient Position: Sitting) Pulse 63 Temp 36.7 ??C (98.1 ??F) (Temporal) Resp 18 Ht 181.6 cm (5' 11.5) Wt 89.1 kg (196 lb 6.4 oz) SpO2 94% BMI 27.01 kg/m2 Wt Readings from Last 3 Encounters: 01/14/18 89.1 kg (196 lb 6.4 oz) 10/22/17 89.2 kg (196 lb 9.6 oz) 07/23/17 88.9 kg (196 lb) PS=0 General: NAD Head: Atraumatic Neck: supple, full ROM, no cervical, occipital, supraclavicular lymphadenopathy CV: RRR, no MRG Resp: LSCTA bilat, no resp distress GI: abd soft, non-distended, no guarding or masses, BS+ Skin: warm and dry, no visible rashes Extremities: no distal edema noted Musculoskeletal: ambulatory without assist, no gross deformity noted Neuro: No focal weakness, A&Ox3 Psych: Normal mood and affect, conversant LABS: Recent Results (from the past 24 hour(s)) Comprehensive metabolic panel (non-fasting) Result Value Ref Range Glucose Lvl 108 65 - 199 mg/dL BUN 16 10 - 20 mg/dL Creatinine 0.96 0.80 - 1.50 mg/dL Sodium 142 135 - 145 mmol/L Potassium 4.1 3.5 - 5.0 mmol/L Chloride 103 98 - 107 mmol/L CO2 24 22 - 31 mmol/L Anion Gap 15 5 - 15 mmol/L Calcium 9.7 8.5 - 10.5 mg/dL Total Protein 7.1 6.1 - 8.0 gm/dL Albumin 4.3 3.2 - 5.2 gm/dL AST 28 0 - 39 unit/L ALT 30 0 - 55 unit/L Alk Phos 103 40 - 120 unit/L Total Bilirubin 0.6 0.2 - 1.3 mg/dL Estimated GFR >60 >=60 PSA Result Value Ref Range PSA Total 0.04 0.00 - 4.00 ng/mL Hemogram Result Value Ref Range WBC 7.0 4.0 - 9.5 x10(3)/mcL RBC 4.63 4.58 - 5.54 x10(6)/mcL Hemoglobin 13.7 13.7 - 16.5 gm/dL Hematocrit 41.2 40.5 - 48.5 % MCV 89.0 82.9 - 93.1 fL MCH 29.6 27.5 - 32.1 pg MCHC 33.3 32.0 - 35.7 gm/dL Platelets 216 145 - 357 x10(3)/mcL RDWSD 42.1 36.0 - 45.0 fL RDWCV 12.9 11.4 - 13.8 % MPV 10.1 7.6 - 12.9 fL nRBC % Auto 0.0 % nRBC Abs Auto 0.000 0.000 - 0.000 x10(3)/mcL Differential, Automated Result Value Ref Range Neutrophils % 68.9 % Neutr Abs (ANC) 4.84 1.70 - 6.10 x10(3)/mcL Lymphocytes % 16.8 % Lymphocytes Abs 1.2 0.9 - 3.2 x10(3)/mcL Monocytes % 10.1 % Monocyte Abs 0.7 0.3 - 0.9 x10(3)/mcL Eosinophils % 3.4 % Eosinophils Abs 0.2 0.0 - 0.4 x10(3)/mcL Basophils % 0.4 % Basophils Abs 0.0 0.0 - 0.1 x10(3)/mcL Immature Gran % 0.40 % Julisa Gran Abs 0.03 0.00 - 0.04 x10(3)/mcL IMAGING STUDIES: No new ASSESSMENT AND PLAN: Murillo A Holaday metastatic prostate cancer with extensive disease involving nodes and bones. He renita combination lupron+zytiga as first line therapy with very good clinical response based on returnof his baseline performance status. PSA continues to trend and is now 0.04. Reviewed labs and plan to give Lupron today and continue Abiraterone/Prednisone as prescribed. #R gluteal welt: given timing of appearance of welt in relation to last Lupron shot (welt appeared approx 2 months after injection), do not suspect they are connected. Instructed to monitor skin following today's injection and let us know if he notes any new rash/skin/other reaction. He agrees. #ADT SEs (hot flushes, mood swings): both tolerable and manageable at this point. Denies depression, per se. Offered referral to counseling. Patient declines at this time, states will let us know if changes mind. #R knee pain: Given chronic but intermittent nature, related to activity, suspect degenerative changes. Reviewed use of OTC ibuprofen, SEs and encouraged him to f/u w/PCP especially if pain requires more regular use of med and/or limits activity. He agrees. Plan: Return in 3 months for labs, f/u, and Lupron injection. Encouraged patient to call anytime inthe meantime with questions or concerns. Deborah Hector APRN Hematology/Oncology documented in this encounter Plan of Treatment Upcoming Encounters Date Type Department Care Team (Latest Contact Info) Description 09/29/2024 4:30 PM EST Hospital En[place] [address] Lizet Wilkes MD [facility] [place] [address] 09/29/2024 4:30 PM EST - 09/29/2024 5:00 PM EST [place] [address] Lizet Wilkes MD [facility] [place] [address] EGD, UPPER GI ENDOSCOPY (WRVU 2.09) 11/09/2024 10:00 AM EST Laboratory Appointment Lab at [facility] [place] Hematology Oncology [address] [place] [phone] 11/09/2024 11:00 AM EST Office Visit [place]ology [place] [address] Faith Caba MD [facility] DR HEMATOLOGY AND ONCOLOGY [place], [place] [phone] 11/09/2024 12:00 PM EST Appointment [place]ology [place] [phone] Scheduled Procedures Name Priority Associated Diagnoses Date/Ti me EGD, UPPER GI ENDOSCOPY (WRVU 2.09) Gastroesophageal reflux disease with esophagitis, unspecified whether hemorrhage 09/29/2024 4:30 PM EST documented as of this encounter Results * PSA (04/08/2018 9:37 AM EDT) Pathologist [facility] Prostate Specific Antigen (Ultrasensitiv e) 0.02 0.00 - 4.00 ng/mL [facility] Blood specimen (specimen) 04/08/2018 9:37 AM EDT 04/08/2018 10:00 AM EDT Narrative Resulting Agency Comment Spec In Lab Deborah Hector EMBOSSING PRESS OPERATOR [employer] CHEMISTRY ORDERABL ES [facility] [place] [address] * (ABNORMAL) Comprehensive metabolic panel (non-fasting) (04/08/2018 9:37 AM EDT) Glucose 104 65 - 199 mg/dL [facility] Comment:Diabetes: >=200 mg/d L plus symptoms Blood Urea Nitrogen 17 10 - 20 mg/dL [facility] Creatinine 0.90 0.80 - 1.50 mg/dL [facility] Sodium 142 135 - 145 mmol/L [facility] Potassium 3.9 3.5 - 5.0 mmol/L [facility] Comment: Please note: ??Patients with WBC >100,000 may have falsely elevated Potassium levels. ??For accurate Potassium quantification in these patients send serum separator tube (gold top) for subsequent determinations. ??Contact the Clinical Chemistry Laboratory if there are any questions. Chloride 103 98 - 107 mmol/L [facility] Carbon Dioxide 23 22 - 31 mmol/L [facility] Anion Gap 16(H) 5 - 15 mmol/L [facility] Calcium 9.3 8.5 - 10.5 mg/dL [facility] Protein, Total 6.6 6.1 - 8.0 gm/dL [facility] Albumin 4.2 3.2 - 5.2 gm/dL [facility] Aspartate Aminotransferase 20 0 - 39 unit/L [facility] Alanine Aminotransferase 17 0 - 55 unit/L [facility] Alkaline Phosphatase 101 40 - 120 unit/L [facility] Bilirubin, Total 0.7 0.2 - 1.3 mg/dL [facility] Est Glomerular Filtration Rate 84 >=60 mL/min/1. 73 m?? [facility] Comment: The eGFR was calculated using the CKD-EPI equation. As with all creatinine based estimates of kidney function, eGFR values calculated with the CKD-EPI equation are not accurate in patients with acute kidney failure, extremes of body mass or the acutely ill. http://[employer] Planetnkdep http://[employer]/[facility] eGFR 98 >=60 mL/min/1. 73 m?? [facility] Comment: The eGFR was calculated using the CKD-EPI equation. As with all creatinine based estimates of kidney function, eGFR values calculated with the CKD-EPI equation are not accurate in patients with acute kidney failure, extremes of body mass or the acutely ill. http://[employer] Planetnkdep http://[employer]/[facility] Blood specimen (specimen) 04/08/2018 9:37 AM EDT 04/08/2018 10:00 AM EDT Narrative Resulting Agency Comment Spec In Lab Deborah Hector EMBOSSING PRESS OPERATOR [employer] CHEMISTRY ORDERABL ES [facility] [place] [address] documented in this encounter Visit Diagnoses Diagnosis Neoplasm of prostate, distant metastasis staging category M1c: distant metastasis with or without metastasis to bone Gastroesophageal reflux disease with esophagitis, unspecified whether hemorrhage documented in this encounter Care Teams Anodic Operator Relationship Specialty Start Date End Date Kennedi Shaver MD [facility] [address] [place] [address] PCP - General 08/22/10 08/01/20 documented as of this encounter
--- OUTSIDE RECORDS SUMMARY | 2024-09-11 15:28 | XMS_ITS | Encounter Summary ---
Author Organization [facility] [place] [address] Care Team Providers Care Computer Programming Manager Name Role Phone Kennedi Shaver MD Primary Care Provider [phone] Reason for Visit * Reason Onset Date Comments Questions 05/03/2017 Encounter Details Date Type Department Care Team (Late st Contact Info) Description 05/03/2017 Telephone [place]ematology [place] [phone] Irma Villegas RN Questions Social History Tobacco Use Types Packs/Day [...] encounter Miscellaneous Notes * Telephone Encounter - Irma Han RN - 05/03/2017 1:03 PM EDT Message received from assistant corporate secretary: Please call patient at [phone], he has a question regarding prednisone dosing, per is conversation with Dr Caba he should be taking 2 pills but on the bottle it states 1. Called placed to patient to advise patient that prednisone should only be taken once daily per new recommended therapy with zytiga and orders per Dr. Caba. Patient confirms will take one prednisone daily, as ordered on the prescription. Pt in agreement with plan and knows to call clinic with any concerns and/or questions. documented in this encounter Plan of Treatment Upcoming Encounters Date Type Department Care Team (Latest Contact Info) Description 09/29/2024 4:30 PM EST Hospital En[place] [phone] Lizet Wilkes MD [facility] [place] [address] 09/29/2024 4:30 PM EST - 09/29/2024 5:00 PM EST [place] [phone] Lizet Wilkes MD [facility] [place] [address] EGD, UPPER GI ENDOSCOPY (WRVU 2.09) 11/09/2024 10:00 AM EST Laboratory Appointment Lab [place] [facility] [place] [address] [place] [phone] 11/09/2024 11:00 AM EST Office Visit Hematology [place] [phone] Faith Caba MD [facility] DR HEMATOLOGY [place] [address] 11/09/2024 12:00 PM EST Appointment Hematology [place] [phone] Scheduled Procedures Name Priority Associated Diagnoses Date/Ti me EGD, UPPER GI ENDOSCOPY (WRVU 2.09) Gastroesophageal reflux disease with esophagitis, unspecified whether hemorrhage 09/29/2024 4:30 PM EST documented as of this encounter Visit Diagnoses Not on filedocumented in this encounter Care Teams Computer Programming Manager Relationship Specialty Start Date End Date Kennedi Shaver MD [address] [place] [address] PCP - General 08/22/10 08/01/20 documented as of this encounter
--- OUTSIDE RECORDS SUMMARY | 2024-09-11 15:28 | XMS_ITS | Encounter Summary ---
Author Organization [facility] [place] [address] Care Team Providers Care Wool Buyer Name Role Phone Kennedi Shaver MD Primary Care Provider [phone] Reason for Visit * Treatment/Therapy Plan Authorization (Routine) - Specialty Diagnoses / Procedures Referred By Blaine peralta Referred To Contact Diagnoses Neoplasm of prostate, distant metastasis staging category M1c: distant metastasis with or without metastasis to bone Procedures TC LEUPROLIDE ACETATE 7.5MG, FOR DEPOST SUSPENSION (LUPRON DEPOT) Faith Caba MD [facility] [place] [address] [facility] [place] [address] [place] [address] Referral ID Status Reason Start Date Expiration Date V isits Requested Visits Authorized [id number] 07/07/2018 08/09/2020 30 30 Encounter Details Date Type Department Care Team (Latest Contact Info) Description 07/08/2018 9:32 AM EDT - 07/08/2018 11:59 PM EDT Hospital Encounter Hematology [place] [address] Neoplasm of prostate, distant metastasis staging category [...] as of this encounter Progress Notes * Wendy Vaughan RN - 07/08/2018 12:18 PM EDT Patient Name: Chidi Carbone Patient Age: 72 y.o. Birthdate: 1945 Admit date: 07/08/2018 Attending Physician: No att. providers found Access visit, see MAR/Flowsheet documented in this encounter Plan of Treatment Upcoming Encounters Date Type Department Care Team (Latest Contact Info) Description 09/29/2024 4:30 PM EST Hospital Encounter Gastroenterology at [place] [phone] Lizet Wilkes MD [facility] [address] 09/29/2024 4:30 PM EST - 09/29/2024 5:00 PM EST [place] [phone] Lizet Wilkes MD [facility] [place] [address] EGD, UPPER GI ENDOSCOPY (WRVU 2.09) 11/09/2024 10:00 AM EST Laboratory Appointment Lab [place] [facility] [place] On[place] [address] [place] [phone] 11/09/2024 11:00 AM EST Office Visit Hematology [place] [phone] Faith Caba MD [facility] [place] [address] 11/09/2024 12:00 PM EST Appointment Hematology [place] [phone] Scheduled Procedures Name Priority Associated Diagnoses Date/Ti [...] 22.5 mg, Intramuscular, ONCE, 1 dose, On Sat07/08/18 at 1200, Routine, This agent is restricted to outpatient use. Is this drug being given as an outpatient? Yes Given 07/08/2018 12:14 PM EDT 22.5 mg Left Gluteal documented in this encounter Care Teams Wool Buyer Relationship Specialty Start Date End Date Kennedi Shaver MD [address] [place] [address] PCP - General 08/22/10 08/01/20 documented as of this encounter
--- OUTSIDE RECORDS SUMMARY | 2024-09-11 15:28 | XMS_ITS | Encounter Summary ---
Author Organization [facility] [place] [address] Care Team Providers Care Improvement Specialist Name Role Phone Kennedi Shaver MD Primary Care Provider [phone] Encounter Details Date Type Department Care Team (Late st Contact Info) Description 07/07/2018 Orders Only Hematology [place] [phone] HEMATOLOGY AND ONCOLOGY [place], [place] [phone] Social History Tobacco Use Types Packs/Day Years [...] [facility] Hospital Encounter [place] [phone] Lizet Wilkes MD [facility] [place] [address] 09/29/2024 4:30 PM EST - 09/29/2024 5:00 PM EST Surgery Gastroenterology at [place] [address] Lizet Wilkes MD [facility] [place] [address] EGD, UPPER GI ENDOSCOPY (WRVU 2.09) 11/09/2024 10:00 AM EST Laboratory Appointment Lab at [facility] [place] Hematology Oncology [address] [place] [phone] 11/09/2024 11:00 AM EST Office Visit Hematology [place] [phone] Faith Caba MD [facility] [address] [place] [address] 11/09/2024 12:00 PM EST Appointment Hematology and Oncology at [place] [address] Scheduled Procedures Name Priority Associated Diagnoses Date/Ti me EGD, UPPER GI ENDOSCOPY (WRVU 2.09) Gastroesophageal reflux disease with esophagitis, unspecified whether hemorrhage 09/29/2024 4:30 PM EST documented as of this encounter Visit Diagnoses Not on filedocumented in this encounter Care Teams Improvement Specialist Relationship Specialty Start Date End Date Kennedi Shaver MD [facility] [address] [place] [address] PCP - General 08/22/10 08/01/20 documented as of this encounter
--- OUTSIDE RECORDS SUMMARY | 2024-09-11 15:28 | XMS_ITS | Encounter Summary ---
Author Organization [facility] [place] [address] Care Team Providers Care Marine Resource Economist Name Role Phone Kennedi Shaver MD Primary Care Provider [phone] Reason for Visit * Reason Comments Follow-up Encounter Details Date Type Department Care Team (Late st Contact Info) Description 07/23/2017 10:30 AM EDT Office Visit Hematology [place] [address] Faith Caba MD [facility] [address] HEMATOLOGY [place] [address] Simran Capone MD [facility] HEMATOLOGY/[place] [address] Neoplasm of prostate, distant metastasis staging category [...] Taken Comments Blood Pressure - - Pulse 76 07/23/2017 9:55 AM EDT Temperature 36.9 ??C (98.4 ??F) 07/23/2017 9:55 AM ED T Respiratory Rate 18 07/23/2017 9:55 AM EDT Oxygen Saturation 96% 07/23/2017 9:55 AM EDT Inhaled Oxygen Concentration - - Weight 88.9 kg (196 lb) 07/23/2017 9:55 AM EDT Height 181 cm (5' 11.26) 07/23/2017 9:55 AM EDT Body Mass Index 27.14 07/23/2017 9:55 AM EDT documented in this encounter Progress Notes * Patricia James RN - 07/23/2017 10:30 AM EDT Met w/ pt regarding obtaining an early refill on his evelio as he is leaving [facility] for [facility] and will miss a week of medication if he doesn't obtain an early refill. Call placed to [facility] [employer] ([phone]). Chris who stated that normally the pt needed to call to request refill however she will reach out towvm to arrange delivery for Saturday. Pt notified and provided w/ phone # to call [employer] if he hasn't heard from them by the end of theday. * Faith Caba MD - 07/23/2017 10:30 AM EDT Images from the original note were not included. N [facility] [place] [place] [phone] ?? DATE: 07/23/2017 FOLLOW UP VISIT DIAGNOSIS: Metastatic prostate cancer [...] on 03/20/2017 HPI: Chidi Carbone returns for f/u. He has been well with exception of intermittent R knee pain whichis likely related to arthritis and has been present for years but more prominent since he has been working more since starting therapy. He denies any other pain. Hot flushes are manageable. He otherwise denies new sx including pain, fever/chills, energy is good. REVIEW OF SYSTEMS: Aside from above, the remainder of the the ROS was negative PAST MEDICAL HISTORY: 1. As above 2. GERD and Sol's esophagus S/p Alli Fundoplication 3. ELevated fasting glusoce 4. S/p distant appendectomy 5. S/p tonsilectomy MEDS: Medications 07/23/17 1018 Medication Sig Taking? abiraterone 500 mg Tablet [...] on file Social History Narrative PHYSICAL EXAM: Pulse 76 Temp 36.9 ??C (98.4 ??F) (Temporal) Resp 18 Ht 181 cm (5' 11.26) Wt 88.9 kg (196 lb) SpO2 96% BMI 27.14 kg/m2 PS=0 General: NAD Head: NCAT ENT: No OP lesions Heart: RRR, no murmur Lungs: CTAB Abd: NABS, NT, ND Heme: decrease size od L Sc node now ~2.5 cm in greatest dimensions Neuro: No focal weakness Psych: Normal mood and affect. LABS: Recent Results (from the past 24 hour(s)) Comprehensive metabolic panel (non-fasting) Result Value Ref Range Glucose Lvl 113 65 - 199 mg/dL BUN 17 10 - 20 mg/dL Creatinine 0.91 0.80 - 1.50 mg/dL Sodium 142 135 - 145 mmol/L Potassium 4.0 3.5 - 5.0 mmol/L Chloride 103 98 - 107 mmol/L CO2 26 22 - 31 mmol/L Anion Gap 13 5 - 15 mmol/L Calcium 9.5 8.5 - 10.5 mg/dL Total Protein 7.0 6.1 - 8.0 gm/dL Albumin 4.3 3.2 - 5.2 gm/dL AST 21 0 - 39 unit/L ALT 21 0 - 55 unit/L Alk Phos 74 40 - 120 unit/L Total Bilirubin 0.7 0.2 - 1.3 mg/dL Estimated GFR >60 >=60 PSA Result Value Ref Range PSA Total 1.02 0.00 - 4.00 ng/mL Hemogram Result Value Ref Range WBC 6.9 4.0 - 9.5 x10(3)/mcL RBC 4.28 (L) 4.58 - 5.54 x10(6)/mcL Hemoglobin 13.1 (L) 13.7 - 16.5 gm/dL Hematocrit 38.5 (L) 40.5 - 48.5 % MCV 90.0 82.9 - 93.1 fL MCH 30.6 27.5 - 32.1 pg MCHC 34.0 32.0 - 35.7 gm/dL Platelets 224 145 - 357 x10(3)/mcL RDWSD 42.3 36.0 - 45.0 fL RDWCV 12.8 11.4 - 13.8 % MPV 10.1 7.6 - 12.9 fL nRBC % Auto 0.0 % nRBC Abs Auto 0.000 0.000 - 0.000 x10(3)/mcL Differential, Automated Result Value Ref Range Neutrophils % 76.2 % Neutr Abs (ANC) 5.25 1.70 - 6.10 x10(3)/mcL Lymphocytes % 13.8 % Lymphocytes Abs 1.0 0.9 - 3.2 x10(3)/mcL Monocytes % 7.5 % Monocyte Abs 0.5 0.3 - 0.9 x10(3)/mcL Eosinophils % 1.5 % Eosinophils Abs 0.1 0.0 - 0.4 x10(3)/mcL Basophils % 0.6 [...] baseline performance status. PSA continues to trend down significantly. He has good QOL. SE were reviewed and are manageable. R knee pin unlikely to be disease of therapy related. He will have it evaluated through PCP/ortho if it cont to be bothersome He will return in about 3 months with repeat labs and next schedule leuprolide Pt was instructed to call our clinic with any new symptom or any questions. Faith Caba MD, PhD Hematology/Oncology documented in this encounter Plan of Treatment Upcoming Encounters Date Type Department Care Team (Latest Contact Info) Description 09/29/2024 4:30 PM EST Hospital Encounter [place] [phone] Lizet Wilkes MD [facility] [place] [address] 09/29/2024 4:30 PM EST - 09/29/2024 5:00 PM EST [place] [phone] Lizet Wilkes MD [facility] [place] [address] EGD, UPPER GI ENDOSCOPY (WRVU 2.09) 11/09/2024 10:00 AM EST Laboratory Appointment Lab at [facility] [place]ematology Oncology [address] [place] [phone] 11/09/2024 11:00 AM EST Office Visit [place]ematology [place] [phone] Faith Caba MD [facility] DR [place] [address] 11/09/2024 12:00 PM EST Appointment Hematology [place] [address] Scheduled Procedures Name Priority Associated Diagnoses Date/Ti me EGD, UPPER GI ENDOSCOPY (WRVU 2.09) Gastroesophageal reflux disease with esophagitis, unspecified whether hemorrhage 09/29/2024 4:30 PM EST documented as of this encounter Results * PSA (10/22/2017 10:36 AM EST) Prostate Specific Antigen (Ultrasensitiv e) 0.12 0.00 - 4.00 ng/mL [facility] Blood specimen (specimen) 10/22/2017 10:36 AM EST 10/22/2017 11:14 AM EST Narrative Resulting Agency Comment Spec In Lab Faith Caba MD CHEMISTRY ORDERABLES [facility] [place] [address] * Comprehensive metabolic panel (non-fasting) (10/22/2017 10:36 AM EST) Glucose 90 65 - 199 mg/dL [facility] Comment:Diabetes: >=200 mg/d L plus symptoms Blood Urea Nitrogen 18 10 - 20 mg/dL [facility] Creatinine 0.92 0.80 - 1.50 mg/dL [facility] Sodium 145 135 - 145 mmol/L [facility] Potassium 3.9 3.5 - 5.0 mmol/L [facility] Comment: Please note: ??Patients with WBC >100,000 may have falsely elevated Potassium levels. ??For accurate Potassium quantification in these patients send serum separator tube (gold top) for subsequent determinations. ??Contact the Clinical Chemistry Laboratory if there are any questions. Chloride 105 98 - 107 mmol/L [facility] Carbon Dioxide 28 22 - 31 mmol/L [facility] Anion Gap 12 5 - 15 mmol/L [facility] Calcium 9.2 8.5 - 10.5 mg/dL [facility] Protein, Total 6.8 6.1 - 8.0 gm/dL [facility] Albumin 4.1 3.2 - 5.2 gm/dL [facility] Aspartate Aminotransferase 25 0 - 39 unit/L [facility] Alanine Aminotransferase 29 0 - 55 unit/L [facility] Alkaline Phosphatase 85 40 - 120 unit/L [facility] Bilirubin, Total 0.6 0.2 - 1.3 mg/dL [facility] Est Glomerular Filtration Rate >60 >=60 [facility] Comment: The reported eGFR should be multiplied by 1.2 for patients. The MDRD is not an appropriate measure of renal function for patients with body mass extremes or in patients with acute kidney failure. [email or web address]://[email or web address] [email or web address] Blood specimen (specimen) 10/22/2017 10:36 AM EST 10/22/2017 11:14 AM EST Narrative Resulting Agency Comment Spec In Lab Faith Caba MD CHEMISTRY ORDERABLES [facility] [place] [address] documented in this encounter Visit Diagnoses Diagnosis Neoplasm of prostate, distant metastasis staging category M1c: distant metastasis with or without metastasis to bone Gastroesophageal reflux disease with esophagitis, unspecified whether hemorrhage documented in this encounter Care Teams Marine Resource Economist Relationship Specialty Start Date End Date Kennedi Shaver MD [address] [place] [address] PCP - General 08/22/10 08/01/20 documented as of this encounter
--- OUTSIDE RECORDS SUMMARY | 2024-09-11 15:28 | XMS_ITS | Encounter Summary ---
Author Organization [facility] [place] [address] Care Team Providers Care Stenographer Print Shop Name Role Phone Kennedi Shaver MD Primary Care Provider [phone] Reason for Visit * Reason Onset Date Comments Results 07/10/2018 Encounter Details Date Type Department Care Team (Late st Contact Info) Description 07/10/2018 Telephone Hematology [place] [address] Patricia James MEDICAL STAFF ASSISTANT ROOM Results Social History Tobacco Use Types [...] Telephone Encounter - Patricia James RN - 07/10/2018 2:00 PM EDT Message received from corporation secretary: [phone] Chidi's lab results were not ready when her saw Dr Caba. He requests a call back to see how his PSA was. Lab results reviewed w/ pt. He is aware to call clinic w/ any concerns/questions. documented in this encounter Plan of Treatment Upcoming Encounters Date Type Department Care Team (Latest Contact Info) Description 09/29/2024 4:30 PM EST Hospital Encounter Gastroenterology at [place] [phone] Lizet Wilkes MD [facility] [place] [address] 09/29/2024 4:30 PM EST - 09/29/2024 5:00 PM EST [place] [phone] Lizet Wilkes MD [facility] [place] [address] EGD, UPPER GI ENDOSCOPY (WRVU 2.09) 11/09/2024 10:00 AM EST Laboratory Appointment [place] [facility] [place] [address] [place], [place] [phone] 11/09/2024 11:00 AM EST Office Visit [place]ology [place] [phone] Faith Caba MD [facility] DR H[place]AT[place]Y [place] [address] 11/09/2024 12:00 PM EST Appointment Hematology [place] [phone] Scheduled Procedures Name Priority Associated Diagnoses Date/Ti nd EGD, UPPER GI ENDOSCOPY (WRVU 2.09) Gastroesophageal reflux disease with esophagitis, unspecified whether hemorrhage 09/29/2024 4:30 PM EST documented as of this encounter Visit Diagnoses Not on filedocumented in this encounter Care Teams Stenographer Print Shop Relationship Specialty Start Date End Date Kennedi Shaver MD [address] [place] [address] PCP - General 08/22/10 08/01/20 documented as of this encounter
--- OUTSIDE RECORDS SUMMARY | 2024-09-11 15:28 | XMS_ITS | Encounter Summary ---
Author Organization [facility] [place] [address] Care Team Providers Care Phosphoric Acid Operator Name Role Phone Kennedi Shaver MD Primary Care Provider [phone] Reason for Visit * Reason Onset Date Comments Questions 08/27/2017 Encounter Details Date Type Department Care Team (Late st Contact Info) Description 08/27/2017 Telephone Hematology [place] [address] Patricia James WIRE COATER ROOM Questions Social History Tobacco Use Types [...] Telephone Encounter - Patricia James RN - 08/27/2017 2:05 PM EST Message received from social secretary: Chidi forgot to take his zytiga this morning. He wants to know ifhe should take it now, or wait until tomorrow Spoke w/ pt who stated that he couldn't recall if he'd taken it or not this morning, didn't want totake a double dose today. Plan: reviewed that since he was uncertain about whether or not he took a dose, recommend he not take any add'tl zytiga today and resume his usual daily dosing tomorrow Pt in agreement with plan and knows to call clinic with any concerns and/or questions. documented in this encounter Plan of Treatment Upcoming Encounters Date Type Department Care Team (Latest Contact Info) Description 09/29/2024 4:30 PM EST Hospital Encounter Gastroenterology at [place] [phone] Lizet Wilkes MD [facility] [place] [address] 09/29/2024 4:30 PM EST - 09/29/2024 5:00 PM EST Surgery [place] [phone] Lizet Wilkes MD [facility] [place] [address] EGD, UPPER GI ENDOSCOPY (WRVU 2.09) 11/09/2024 10:00 AM EST Laboratory Appointment Lab at [facility] [place] Hematology Oncology [address] [place] [phone] 11/09/2024 11:00 AM EST Office Visit Hematology [place] [phone] Faith Caba MD [facility] [place] [address] 11/09/2024 12:00 PM EST Appointment Hematology [place] [phone] Scheduled Procedures Name Priority Associated Diagnoses Date/Ti me EGD, UPPER GI ENDOSCOPY (WRVU 2.09) Gastroesophageal reflux disease with esophagitis, unspecified whether hemorrhage 09/29/2024 4:30 PM EST documented as of this encounter Visit Diagnoses Not on filedocumented in this encounter Care Teams Phosphoric Acid Operator Relationship Specialty Start Date End Date Kennedi Shaver MD [address] [place] [address] PCP - General 08/22/10 08/01/20 documented as of this encounter
--- OUTSIDE RECORDS SUMMARY | 2024-09-11 15:28 | XMS_ITS | Encounter Summary ---
Author Organization [facility] [place] [address] Care Team Providers Care Franchise Business Consultant Name Role Phone Kennedi Shaver MD Primary Care Provider [phone] Reason for Visit * Reason Comments Follow-up Encounter Details Date Type Department Care Team (Late st Contact Info) Description 07/08/2018 10:30 AM EDT Office Visit Hematology [place] [address] Faith Caba MD [facility] DR HEMATOLOGY [place] [address] [address] [place]Y [place] [address] Neoplasm of prostate, distant metastasis staging category [...] Sign Reading Time Taken Comments Blood Pressure 156/69 07/08/2018 10:48 AM EDT Pulse 78 07/08/2018 10:48 AM EDT Temperature 36.8 ??C (98.2 ??F) 07/08/2018 10:48 AM E DT Respiratory Rate 17 07/08/2018 10:48 AM EDT Oxygen Saturation 97% 07/08/2018 10:48 AM EDT Inhaled Oxygen Concentration - - Weight 89.4 kg (197 lb 3.2 oz) 07/08/2018 10:48 AM EDT Height 179.7 cm (5' 10.75) 07/08/2018 10:48 AM EDT Body Mass Index 27.7 07/08/2018 10:48 AM EDT documented in this encounter Progress Notes * Faith Caba MD - 07/08/2018 10:30 AM EDT Images from the original note were not included. N [facility] [place] [place] [phone] ?? ONCOLOGY FOLLOW UP VISIT DIAGNOSIS: Metastatic [...] 03/20/2017 Added abiraterone/pred 04/2017 HPI: Chidi Carbone has been doing well since our last visit. 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 He denies new pain. Urinary sx. overally remains active, although notes he notices his reserve isslightly lower. REVIEW OF SYSTEMS: As noted in HPI; otherwise negative. PAST MEDICAL HISTORY: 1. As above 2. GERD and Sol's esophagus S/p Alli Fundoplication 3. ELevated fasting glusoce 4. S/p distant appendectomy 5. S/p tonsilectomy MEDS: Medications 07/09/18 9383 Medication Sig Taking? ZYTIGA 500 mg Tablet [...] Reviewed - no change PHYSICAL EXAM: BP 156/69 (Patient Position: Sitting) Pulse 78 Temp 36.8 ??C (98.2 ??F) (Temporal) Resp 17 Ht 179.7 cm (5' 10.75) Wt 89.4 kg (197 lb 3.2 oz) SpO2 97% BMI 27.7 kg/m2 Wt Readings from Last 3 Encounters: 07/08/18 89.4 kg (197 lb 3.2 oz) 04/08/18 89 kg (196 lb 3.2 oz) 01/14/18 89.1 kg (196 lb 6.4 oz) PS=0 General: NAD ENT: No OP lesions Neck: no lymphadenopathy CV: RRR Resp: CTAB GI: abd soft, non tender Neuro: No focal weakness, A&Ox3 Psych: Normal mood and affect, conversant LABS: Mild anemia otherwise normal CBC, CMP PSA 0.01 IMAGING STUDIES: No new ASSESSMENT AND PLAN: Chidi Carbone has metastatic prostate cancer with extensive disease involving nodes and bones. He is on combination lupron+zytiga as first line therapy with very good clinical response based on return of his baseline performance status and no new sx attributable to disease. PSA remains very low.He has tolerable hot flushes. Labs reviewed - proceed with current therapy Plan: Return in 3 months for labs, f/u, and Lupron injection. Encouraged patient to call anytime inthe meantime with questions or concerns. Faith Caba MD Hematology/Oncology documented in this encounter Plan of Treatment Upcoming Encounters Date Type Department Care Team (Latest Contact Info) Description 09/29/2024 4:30 PM EST Hospital Encounter [place] [phone] Lizet Wilkes MD [facility] [place] [address] 09/29/2024 4:30 PM EST - 09/29/2024 5:00 PM EST [place] [address] Lizet Wilkes MD [facility] [place] [address] EGD, UPPER GI ENDOSCOPY (WRVU 2.09) 11/09/2024 10:00 AM EST Laboratory Appointment Lab at [facility] [place] Hematology Oncology [address] [place] [phone] 11/09/2024 11:00 AM EST Office Visit Hematology [place] [phone] Faith Caba MD [facility] [address] [place] [address] 11/09/2024 12:00 PM EST Appointment Hematology [place] [phone] Scheduled Procedures Name Priority Associated Diagnoses Date/Ti me EGD, UPPER GI ENDOSCOPY (WRVU 2.09) Gastroesophageal reflux disease with esophagitis, unspecified whether hemorrhage 09/29/2024 4:30 PM EST documented as of this encounter Results * PSA (10/07/2018 9:43 AM EST) Prostate Specific Antigen (Ultrasensitiv e) <0.01 0.00 - 4.00 ng/mL [facility] Blood specimen (specimen) 10/07/2018 9:43 AM EST 10/07/2018 10:12 AM EST Narrative Resulting Agency Comment Spec In Lab Faith Caba MD CHEMISTRY ORDERABLES [facility] [place] [address] * (ABNORMAL) Comprehensive metabolic panel (non-fasting) (10/07/2018 9:43 AM EST) Glucose 97 65 - 199 mg/dL [facility] Comment:Diabetes: >=200 mg/d L plus symptoms Blood Urea Nitrogen 15 10 - 20 mg/dL [facility] Creatinine 0.93 0.80 - 1.50 mg/dL [facility] Sodium 145 135 - 145 mmol/L [facility] [...] 107 mmol/L [facility] Carbon Dioxide 24 22 - 31 mmol/L [facility] Anion Gap 16(H) 5 - 15 mmol/L [facility] Calcium 9.5 8.5 - 10.5 mg/dL [facility] Protein, Total 7.3 6.1 - 8.0 gm/dL [facility] Albumin 4.3 3.2 - 5.2 gm/dL [facility] Aspartate Aminotransferase 17 0 - 39 unit/L [facility] Alanine Aminotransferase 14 0 - 55 unit/L [facility] Alkaline Phosphatase 108 40 - 120 unit/L [facility] Bilirubin, Total 0.5 0.2 - 1.3 mg/dL [facility] Est Glomerular Filtration Rate 81 >=60 mL/min/1. 73 m?? [facility] Comment: The eGFR was calculated using the CKD-EPI equation. As with all creatinine based estimates of kidney function, eGFR values calculated with the CKD-EPI equation are not accurate in patients with acute kidney failure, extremes of body mass or the acutely ill. [email or web address] [email or web address] eGFR 94 >=60 mL/min/1. 73 m?? [facility] Comment: The eGFR was calculated using the CKD-EPI equation. As with all creatinine based estimates of kidney function, eGFR values calculated with the CKD-EPI equation are not accurate in patients with acute kidney failure, extremes of body mass or the acutely ill. [email or web address] Blood specimen (specimen) 10/07/2018 9:43 AM EST 10/07/2018 10:12 AM EST Narrative Resulting Agency Comment Spec In Lab Faith Caba MD CHEMISTRY ORDERABLES [facility] [place] [address] documented in this encounter Visit Diagnoses Diagnosis Neoplasm of prostate, distant metastasis staging category M1c: distant metastasis with or without metastasis to bone Gastroesophageal reflux disease with esophagitis, unspecified whether hemorrhage documented in this encounter Care Teams Franchise Business Consultant Relationship Specialty Start Date End Date Kennedi Shaver MD [facility] [address] [facility] [address] [place] [address] PCP - General 08/22/10 08/01/20 documented as of this encounter
--- OUTSIDE RECORDS SUMMARY | 2024-09-11 15:28 | XMS_ITS | Encounter Summary ---
[place] [address] Care Team Providers Care Account Services Specialist Name Role Phone Kennedi Shaver MD Primary Care Provider [phone] Encounter Details Date Type Department Care Team (Latest Contact Info) Description 01/14/2018 9:22 AM EDT Hospital Encounter Hematology [place] [address] Neoplasm of prostate, distant metastasis staging category [...] 4:30 PM EST Hospital Encounter [place] [address] Lizet Wilkes MD [facility] [place] [address] 09/29/2024 4:30 PM EST - 09/29/2024 5:00 PM EST Surgery [place] [phone] Lizet Wilkes MD [facility] [place] [address] EGD, UPPER GI ENDOSCOPY (WRVU 2.09) 11/09/2024 10:00 AM EST Laboratory Appointment Lab at [facility] [place] Hematology Oncology [address] [place] [phone] 11/09/2024 11:00 AM EST Office Visit Hematology [place] [phone] Faith Caba MD [facility] DR [place] [address] 11/09/2024 12:00 PM EST Appointment Hematology and Oncology at [place] [phone] Scheduled Procedures Name Priority Associated Diagnoses Date/Ti me EGD, UPPER GI ENDOSCOPY (WRVU 2.09) Gastroesophageal reflux disease with esophagitis, unspecified whether hemorrhage 09/29/2024 4:30 PM EST documented as of this encounter Procedures Procedure Name Priority Date/Time Associated Diagnosis Comments HEMOGRAM Routine 01/14/2018 9:26 AM EDT Neoplasm of prostate, distant metastasis staging category M1c: distant metastasis with or without metastasis to bone DIFFERENTIAL, AUTOMATED Routine 01/14/2018 9:26 AM EDT Neoplasm of prostate, distant metastasis staging category M1c: distant metastasis with or without metastasis to bone CBC (WITH DIFF) Routine 01/14/2018 9:26 AM EDT Neoplasm of prostate, distant metastasis staging category M1c: distant metastasis with or without metastasis to bone PSA (ULTRASENSITIVE) Routine 01/14/2018 9:26 AM EDT Neoplasm of prostate, distant metastasis staging category M1c: distant metastasis with or without metastasis to bone COMPREHENSIVE METABOLIC PANEL Routine 01/14/2018 9:26 AM EDT Neoplasm of prostate, distant metastasis staging category M1c: distant metastasis with or without metastasis to bone documented in this encounter Results * Differential, Automated (01/14/2018 9:26 AM EDT) Neutrophil % 68.9 % [facility] Neutrophil Absolute 4.84 1.70 - 6.10 x10(3)/[facility] Lymph % 16.8 % [facility] Lymphocytes Abs 1.2 0.9 - 3.2 x10(3)/[facility] Monocyte % 10.1 % [facility] Monocyte Abs 0.7 0.3 - 0.9 x10(3)/[facility] Eos % 3.4 % [facility] Eosinophils Abs 0.2 0.0 - 0.4 x10(3)/[facility] Basophil % 0.4 % [facility] Baso Absolute 0.0 0.0 - 0.1 x10(3)/[facility] Immature Gran % 0.40 % [facility] Comment: Immature granulocytes(IG's)percentage and absolute count will include metamyelocytes, myelocytes, and promyelocytes. Blood smears from CBCs yielding IG's will be scanned manually for concordance. If this scan disagrees with the automated IG or if promyelocytes are noted, a manual differential will be performed. Immature Gran Absolute 0.03 0.00 - 0.04 x10(3)/[facility] Blood specimen (specimen) 01/14/2018 9:26 AM EDT 01/14/2018 9:30 AM EDT Narrative Resulting Agency Comment Spec In Lab Faith Caba MD HEMATOLOGY ORDERABLE S Performing Organization Address City/State/[facility] Co de Phone Number [facility] [place] [address] * Hemogram (01/14/2018 9:26 AM EDT) White Blood Cell 7.0 4.0 - 9.5 x10(3)/[facility] Red Blood Cell 4.63 4.58 - 5.54 x10(6)/[facility] Hemoglobin 13.7 13.7 - 16.5 gm/dL [facility] Hematocrit 41.2 40.5 - 48.5 % [facility] Mean Cell Volume 89.0 82.9 - 93.[address] [facility] Mean Cell Hemoglobin 29.6 27.5 - 32.[address] [facility] Mean Cell Hemoglobin Concentration 33.3 32.0 - 35.7 gm/dL [facility] Platelet 216 145 - 357 x10(3)/[facility] RDW Standard Deviation 42.1 36.0 - 45.[address] [facility] RDW coefficient of variation 12.9 11.4 - 13.8 % [facility] Mean Platelet Volume 10.1 7.6 - 12.[address] [facility] NRBC% auto 0.0 % [facility] NRBC Absolute 0.000 0.000 - 0.000 x10(3)/mcL [facility] Blood specimen (specimen) 01/14/2018 9:26 AM EDT 01/14/2018 9:30 AM EDT Narrative Resulting Agency Comment Spec In Lab Faith Caba MD HEMATOLOGY ORDERABLE S Performing Organization Address City/[facility]/ZIP Co de Phone Number [facility] [place] [address] * PSA (01/14/2018 9:26 AM EDT) Prostate Specific Antigen (Ultrasensitiv e) 0.04 0.00 - 4.00 ng/mL [facility] Blood specimen (specimen) 01/14/2018 9:26 AM EDT 01/14/2018 9:30 AM EDT Narrative Resulting Agency Comment Spec In Lab Faith Caba MD CHEMISTRY ORDERABLES Performing Organization Address City/[facility]/ZIP Co de Phone Number [facility] [place] [address] * Comprehensive metabolic panel (non-fasting) (01/14/2018 9:26 AM EDT) Glucose 108 65 - 199 mg/dL [facility] Comment:Diabetes: >=200 mg/d L plus symptoms Blood Urea Nitrogen 16 10 - 20 mg/dL [facility] Creatinine 0.96 0.80 - 1.50 mg/dL [facility] Sodium 142 135 - 145 mmol/L [facility] Potassium 4.1 3.5 - 5.0 mmol/L [facility] Comment: Please note: ??Patients with WBC >100,000 may have falsely elevated Potassium levels. ??For accurate Potassium quantification in these patients send serum separator tube (gold top) for subsequent determinations. ??Contact the Clinical Chemistry Laboratory if there are any questions. Chloride 103 98 - 107 mmol/L [facility] Carbon Dioxide 24 22 - 31 mmol/L [facility] Anion Gap 15 5 - 15 mmol/L [facility] Calcium 9.7 8.5 - 10.5 mg/dL [facility] Protein, Total 7.1 6.1 - 8.0 gm/dL [facility] Albumin 4.3 3.2 - 5.2 gm/dL [facility] Aspartate Aminotransferase 28 0 - 39 unit/L [facility] Alanine Aminotransferase 30 0 - 55 unit/L [facility] Alkaline Phosphatase 103 40 - 120 unit/L [facility] Bilirubin, Total 0.6 0.2 - 1.3 mg/dL [facility] Est Glomerular Filtration Rate >60 >=60 [facility] Comment: The reported eGFR should be multiplied by 1.2 for patients. The MDRD is not an appropriate measure of renal function for patients with body mass extremes or in patients with acute kidney failure. http://YuuConnect.Vyopta/DHnkdep http://Lovethelook/DHMCnkf Blood specimen (specimen) 01/14/2018 9:26 AM EDT 01/14/2018 9:30 AM EDT Narrative Resulting Agency Comment Spec In Lab Faith Caba MD CHEMISTRY ORDERABLES [facility] [place] [address] documented in this encounter Visit Diagnoses Diagnosis Neoplasm of prostate, distant metastasis staging category M1c: distant metastasis with or without metastasis to bone Gastroesophageal reflux disease with esophagitis, unspecified whether hemorrhage documented in this encounter Care Teams Account Services Specialist Relationship Specialty Start Date End Date Kennedi Shaver MD [address] [place] [address] PCP - General 08/22/10 08/01/20 documented as of this encounter
--- OUTSIDE RECORDS SUMMARY | 2024-09-11 15:28 | XMS_ITS | Encounter Summary ---
Author Organization [facility] [place] [address] Care Team Providers Care Chopper Feeder Name Role Phone Kennedi Shaver MD Primary Care Provider [phone] Encounter Details Date Type Department Care Team (Latest Contact Info) Description 07/23/2017 8:59 AM EDT - 07/23/2017 11:59 PM EDT Hospital Encounter [place]ematology [place] [address] Neoplasm of prostate, distant metastasis staging category [...] Progress Notes * Stephanie Woodson RN - 07/23/2017 11:22 AM EDT Patient Name: Chidi Carbone Patient Age: 71 y.o. Birthdate: 1945 Admit date: 07/23/2017 Attending Physician: No att. providers found Access visit. See MAR and/or flowsheet. documented in this encounter Plan of Treatment Upcoming Encounters Date Type Department Care Team (Latest Contact Info) Description 09/29/2024 4:30 PM EST Hospital En[place] [address] Lizte Wilkes MD [facility] [address] 09/29/2024 4:30 PM EST - 09/29/2024 5:00 PM EST [place] [address] Lizet Wilkes MD [facility] [place] [address] EGD, UPPER GI ENDOSCOPY (WRVU 2.09) 11/09/2024 10:00 AM EST Laboratory Appointment Lab at [facility] [place] On[place] [address] [place] [phone] 11/09/2024 11:00 AM EST Office Visit Hematology [place] [phone] Faith Caba MD [facility] [place] [address] 11/09/2024 12:00 PM EST Appointment Hematology [place] [phone] Scheduled Procedures Name Priority Associated Diagnoses Date/Ti [...] 22.5 mg, Intramuscular, ONCE, 1 dose, On Sat07/23/17 at 1115, Routine Given 07/23/2017 11:14 AM EDT 22.5 mg Left Gluteal documented in this encounter Care Teams Chopper Feeder Relationship Specialty Start Date End Date Kennedi Shaver MD [facility] [address] [place] [address] PCP - General 08/22/10 08/01/20 documented as of this encounter
--- OUTSIDE RECORDS SUMMARY | 2024-09-11 15:28 | XMS_ITS | Encounter Summary ---
[place] [address] Care Team Providers Care Soil Sort Worker Name Role Phone Kennedi Shaver MD Primary Care Provider [phone] Encounter Details Date Type Department Care Team (Late st Contact Info) Description 05/28/2017 8:00 AM EDT Office Visit Hematology [place] [address] Faith Caba MD [facility] DR HEMATOLOGY [place] [address] Neoplasm of prostate, distant metastasis staging category [...] Sign Reading Time Taken Comments Blood Pressure 143/76 05/28/2017 8:07 AM EDT Pulse 65 05/28/2017 8:07 AM EDT Temperature 36.6 ??C (97.9 ??F) 05/28/2017 8:07 AM ED T Respiratory Rate 18 05/28/2017 8:07 AM EDT Oxygen Saturation 99% 05/28/2017 8:07 AM EDT Inhaled Oxygen Concentration - - Weight 89.8 kg (198 lb) 05/28/2017 8:07 AM EDT Height 181.1 cm (5' 11.3) 05/28/2017 8:07 AM ED T Body Mass Index 27.38 05/28/2017 8:07 AM EDT documented in this encounter Progress Notes * Faith Caba MD - 05/28/2017 8:00 AM EDT Images from the original note were not included. N [facility] [place] [facility] [place] [phone] ?? DATE: 05/28/2017 FOLLOW UP VISIT DIAGNOSIS: Metastatic prostate cancer [...] on 03/20/2017 HPI: Chidi Carbone returns for interim f/u after starting zytiga+ lupron. Overall he has been well without any complaints. 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 This resolves with ibuprofen. Denies any new pain, or sx in general. No recurrent urinary sx. He has stable intermittent hot flushes that are manageable. He otherwise denies new sx including pain, fever/chills, energy is good. REVIEW OF SYSTEMS: Aside from above, the remainder of the the ROS was negative PAST MEDICAL HISTORY: 1. As above 2. GERD and Sol's esophagus S/p Alli Fundoplication 3. ELevated fasting glusoce 4. S/p distant appendectomy 5. S/p tonsilectomy MEDS: Medications 05/28/17 0812 Medication Sig Taking? predniSONE (DELTASONE) 5 mg Tablet Take 1 tablet by mouth daily. Yes abiraterone 500 mg Tablet Take 1,000 mg by mouth daily. Yes ibuprofen (ADVIL;MOTRIN) 200 [...] file Social History Narrative PHYSICAL EXAM: BP 143/76 (Patient Position: Sitting) Pulse 65 Temp 36.6 ??C (97.9 ??F) (Temporal) Resp 18 Ht 181.1 cm (5' 11.3) Wt 89.8 kg (198 lb) SpO2 99% BMI 27.38 kg/m2 PS=0 General: Well appearing. Head: NCAT ENT: No OP lesions Heart: RRR, no murmur Lungs: CTAB Abd: NABS, NT, ND Heme: decrease size od L Sc node now ~2.5 cm in greatest dimensions Neuro: No focal weakness Psych: Normal mood and affect. LABS: CMP from 05/21 reviewed IMAGING STUDIES: No new ASSESSMENT AND PLAN: Chidi A Holaday metastatic prostate cancer with extensive disease involving nodes and bones. He renita combination lupron+zytiga as first line therapy with very good clinical response based on returnof his baseline performance status. PSA was down significantly following 1 month of lupron. He is pleased with return of his QOL. SE were reviewed and are manageable. He will return in about 2 moonths with repeat labs and next schedule leuprolide Refill zytiga Pt was instructed to call our clinic with any new symptom or any questions. Faith Caba MD, PhD Hematology/Oncology documented in this encounter Plan of Treatment Upcoming Encounters Date Type Department Care Team (Latest Contact Info) Description 09/29/2024 4:30 PM EST Hospital En[place] [address] Lizet Wilkes MD [facility] [place] [address] 09/29/2024 4:30 PM EST - 09/29/2024 5:00 PM EST [place] [phone] Lizet Wilkes MD [facility] [place] [address] EGD, UPPER GI ENDOSCOPY (WRVU 2.09) 11/09/2024 10:00 AM EST Laboratory Appointment Lab at [facility] [place] Hematology Oncology [address] [place] [phone] 11/09/2024 11:00 AM EST Office Visit H[place]ology [place] [phone] Faiht Caba MD [facility] DR HEMATOLOGY [place] [address] 11/09/2024 12:00 PM EST Appointment Hematology [place] [phone] Scheduled Procedures Name Priority Associated Diagnoses Date/Ti me EGD, UPPER GI ENDOSCOPY (WRVU 2.09) Gastroesophageal reflux disease with esophagitis, unspecified whether hemorrhage 09/29/2024 4:30 PM EST documented as of this encounter Results * PSA (07/23/2017 9:05 AM EDT) Pathologist [facility] Prostate Specific Antigen (Ultrasensitiv e) 1.02 0.00 - 4.00 ng/mL [facility] Blood specimen (specimen) 07/23/2017 9:05 AM EDT 07/23/2017 9:10 AM EDT Narrative Resulting Agency Comment Spec In Lab Faith Caba MD CHEMISTRY ORDERABLES [facility] [place] [address] * Comprehensive metabolic panel (non-fasting) (07/23/2017 9:05 AM EDT) Glucose 113 65 - 199 mg/dL [facility] Comment:Diabetes: >=200 mg/d L plus symptoms Blood Urea Nitrogen 17 10 - 20 mg/dL [facility] Creatinine 0.91 0.80 - 1.50 mg/dL [facility] Sodium 142 135 - 145 mmol/L [facility] Potassium 4.0 3.5 - 5.0 mmol/L [facility] Carbon Dioxide 26 22 - 31 mmol/L [facility] Anion Gap 13 5 - 15 mmol/L [facility] Calcium 9.5 8.5 - 10.5 mg/dL [facility] Protein, Total 7.0 6.1 - 8.0 gm/dL [facility] Albumin 4.3 3.2 - 5.2 gm/dL [facility] Aspartate Aminotransferase 21 0 - 39 unit/L [facility] Alanine Aminotransferase 21 0 - 55 unit/L [facility] Alkaline Phosphatase 74 40 - 120 unit/L [facility] Bilirubin, Total 0.7 0.2 - 1.3 mg/dL [facility] Est Glomerular Filtration Rate >60 >=60 [facility] Comment: The reported eGFR should be multiplied by 1.2 for patients. The MDRD is not an appropriate measure of renal function for patients with body mass extremes or in patients with acute kidney failure. http://[employer]Lacoon Mobile Security/DHnkdep http://Mailgun/DHMCnkf Blood specimen (specimen) 07/23/2017 9:05 AM EDT 07/23/2017 9:10 AM EDT Narrative Resulting Agency Comment Spec In Lab Faith Caba MD CHEMISTRY ORDERABLES [facility] [place] [address] documented in this encounter Visit Diagnoses Diagnosis Neoplasm of prostate, distant metastasis staging category M1c: distant metastasis with or without metastasis to bone Gastroesophageal reflux disease with esophagitis, unspecified whether hemorrhage documented in this encounter Care Teams Soil Sort Worker Relationship Specialty Start Date End Date Kennedi Shaver MD [address] [place] [address] PCP - General 08/22/10 08/01/20 documented as of this encounter
--- OUTSIDE RECORDS SUMMARY | 2024-09-11 15:28 | XMS_ITS | Encounter Summary ---
Author Organization [facility] [place] [address] Care Team Providers Care Tappet Adjuster Name Role Phone Kennedi Shaver MD Primary Care Provider [phone] Encounter Details Date Type Department Care Team (Latest Contact Info) Description 07/08/2018 9:30 AM EDT - 07/08/2018 9:31 AM EDT Hospital Encounter Hematology [place] [address] Neoplasm of prostate, distant metastasis staging category [...] 1 tablet by mouth daily. 30 tablet 05/06/2018 08/17/2022 ibuprofen (ADVIL;MOTRIN) 200 mg Tablet [...] 4:30 PM EST Hospital En[place] [address] Lizet Wilkes MD [facility] [place] [address] 09/29/2024 4:30 PM EST - 09/29/2024 5:00 PM EST [place] [address] Lizet Wilkes MD [facility] [place] [address] EGD, UPPER GI ENDOSCOPY (WRVU 2.09) 11/09/2024 10:00 AM EST Laboratory Appointment Lab at [facility] Hematology Oncology [address] [place] [phone] 11/09/2024 11:00 AM EST Office Visit Hematology [place] [address] Faith Caba MD [facility] DR [place] [address] 11/09/2024 12:00 PM EST Appointment Hematology and Oncology at [facility] [place] [address] Scheduled Procedures Name Priority Associated Diagnoses Date/Ti me EGD, UPPER GI ENDOSCOPY (WRVU 2.09) Gastroesophageal reflux disease with esophagitis, unspecified whether hemorrhage 09/29/2024 4:30 PM EST documented as of this encounter Procedures Procedure Name Priority Date/Time Associated Diagnosis Comments HEMOGRAM Routine 07/08/2018 9:39 AM EDT Neoplasm of prostate, distant metastasis staging category M1c: distant metastasis with or without metastasis to bone DIFFERENTIAL, AUTOMATED Routine 07/08/2018 9:39 AM EDT Neoplasm of prostate, distant metastasis staging category M1c: distant metastasis with or without metastasis to bone CBC (WITH DIFF) Routine 07/08/2018 9:39 AM EDT Neoplasm of prostate, distant metastasis staging category M1c: distant metastasis with or without metastasis to bone PSA (ULTRASENSITIVE) Routine 07/08/2018 9:39 AM EDT Neoplasm of prostate, distant metastasis staging category M1c: distant metastasis with or without metastasis to bone COMPREHENSIVE METABOLIC PANEL Routine 07/08/2018 9:39 AM EDT Neoplasm of prostate, distant metastasis staging category M1c: distant metastasis with or without metastasis to bone documented in this encounter Results * Differential, Automated (07/08/2018 9:39 AM EDT) Neutrophil % 72.6 % [facility] Neutrophil Absolute 5.41 1.70 - 6.10 x10(3)/[facility] Lymph % 15.4 % [facility] Lymphocytes Abs 1.2 0.9 - 3.2 x10(3)/[facility] Monocyte % 9.3 % [facility] Monocyte Abs 0.7 0.3 - 0.9 x10(3)/[facility] Eos % 1.9 % [facility] Eosinophils Abs 0.1 0.0 - 0.4 x10(3)/[facility] Basophil % 0.4 % [facility] Baso Absolute 0.0 0.0 - 0.1 x10(3)/[facility] Immature Gran % 0.40 % [facility] Comment: Immature granulocytes(IG's)percentage and absolute count will include metamyelocytes, myelocytes, and promyelocytes. Blood smears from CBCs yielding IG's will be scanned manually for concordance. If this scan disagrees with the automated IG or if promyelocytes are noted, a manual differential will be performed. Immature Gran Absolute 0.03 0.00 - 0.04 x10(3)/[facility] Blood specimen (specimen) 07/08/2018 9:39 AM EDT 07/08/2018 9:54 AM EDT Narrative Resulting Agency Comment Spec In Lab Faith Caba MD HEMATOLOGY ORDERABLE S [facility] [place] [address] * (ABNORMAL) Hemogram (07/08/2018 9:39 AM EDT) White Blood Cell 7.4 4.0 - 9.5 x10(3)/mc L [facility] Red Blood Cell 4.21(L) 4.58 - 5.54 x10(6)/mc L [facility] Hemoglobin 12.9(L) 13.7 - 16.5 gm/dL [facility] Hematocrit 38.1(L) 40.5 - 48.5 % [facility] Mean Cell Volume 90.5 82.9 - 93.1 fL [facility] Mean Cell Hemoglobin 30.6 27.5 - 32.1 pg [facility] Mean Cell Hemoglobin Concentration 33.9 32.0 - 35.7 gm/dL [facility] Platelet 213 145 - 357 x10(3)/mc L [facility] RDW Standard Deviation 42.3 36.0 - 45.0 fL [facility] RDW coefficient of variation 12.8 11.4 - 13.8 % [facility] Mean Platelet Volume 10.0 7.6 - 12.9 fL [facility] NRBC% auto 0.0 % [facility] NRBC Absolute 0.000 0.000 - 0.000 x10(3)/mc L [facility] Blood specimen (specimen) 07/08/2018 9:39 AM EDT 07/08/2018 9:54 AM EDT Narrative Resulting Agency Comment Spec In Lab Faith Caba MD HEMATOLOGY ORDERABLE S Performing Organization Address [facility]/ZIP Co de Phone Number [facility] [place] [address] * PSA (07/08/2018 9:39 AM EDT) Prostate Specific Antigen (Ultrasensitiv e) 0.01 0.00 - 4.00 ng/mL [facility] Blood specimen (specimen) 07/08/2018 9:39 AM EDT 07/08/2018 9:54 AM EDT Narrative Resulting Agency Comment Spec In Lab Faith Caba MD CHEMISTRY ORDERABLES [facility] [place] [address] * (ABNORMAL) Comprehensive metabolic panel (non-fasting) (07/08/2018 9:39 AM EDT) Glucose 109 65 - 199 mg/dL [facility] Comment:Diabetes: >=200 mg/d L plus symptoms Blood Urea Nitrogen 17 10 - 20 mg/dL [facility] Creatinine 0.94 0.80 - 1.50 mg/dL [facility] Sodium 145 135 - 145 mmol/L [facility] Potassium 4.4 3.5 - 5.0 mmol/L [facility] Comment: Please note: ??Patients with WBC >100,000 may have falsely elevated Potassium levels. ??For accurate Potassium quantification in these patients send serum separator tube (gold top) for subsequent determinations. ??Contact the Clinical Chemistry Laboratory if there are any questions. Chloride 104 98 - 107 mmol/L [facility] Carbon Dioxide 23 22 - 31 mmol/L [facility] Anion Gap 18(H) 5 - 15 mmol/L [facility] Calcium 9.6 8.5 - 10.5 mg/dL [facility] Protein, Total 6.8 6.1 - 8.0 gm/dL [facility] Albumin 4.3 3.2 - 5.2 gm/dL [facility] Aspartate Aminotransferase 22 0 - 39 unit/L [facility] Alanine Aminotransferase 18 0 - 55 unit/L [facility] Alkaline Phosphatase 109 40 - 120 unit/L [facility] Bilirubin, Total 0.7 0.2 - 1.3 mg/dL [facility] Est Glomerular Filtration Rate 80 >=60 mL/min/1. 73 m?? [facility] Comment: The eGFR was calculated using the CKD-EPI equation. As with all creatinine based estimates of kidney function, eGFR values calculated with the CKD-EPI equation are not accurate in patients with acute kidney failure, extremes of body mass or the acutely ill. [email or web address] eGFR 93 >=60 mL/min/1. 73 m?? [facility] Comment: The eGFR was calculated using the CKD-EPI equation. As with all creatinine based estimates of kidney function, eGFR values calculated with the CKD-EPI equation are not accurate in patients with acute kidney failure, extremes of body mass or the acutely ill. [email or web address] Blood specimen (specimen) 07/08/2018 9:39 AM EDT 07/08/2018 9:54 AM EDT Narrative Resulting Agency Comment Spec In Lab Faith Caba MD CHEMISTRY ORDERABLES [facility] [place] [address] documented in this encounter Visit Diagnoses Diagnosis Neoplasm of prostate, distant metastasis staging category M1c: distant metastasis with or without metastasis to bone Gastroesophageal reflux disease with esophagitis, unspecified whether hemorrhage documented in this encounter Care Teams Tappet Adjuster Relationship Specialty Start Date End Date Kennedi Shaver MD [address] [place] [address] PCP - General 08/22/10 08/01/20 documented as of this encounter
--- OUTSIDE RECORDS SUMMARY | 2024-09-11 15:28 | XMS_ITS | Encounter Summary ---
[place] [address] Care Team Providers Care Prompt Care Rn Name Role Phone Kennedi Shaver MD Primary Care Provider [phone] Encounter Details Date Type Department Care Team (Late st Contact Info) Description 04/08/2018 10:30 AM EDT Office Visit Hematology [place] [address] Faith Caba MD [facility] [address] H[place]ATOLOGY [place] [address] Neoplasm of prostate, distant metastasis staging category [...] Sign Reading Time Taken Comments Blood Pressure 137/69 04/08/2018 10:29 AM EDT Pulse 69 04/08/2018 10:29 AM EDT Temperature 36.7 ??C (98.1 ??F) 04/08/2018 10:29 AM E DT Respiratory Rate 18 04/08/2018 10:29 AM EDT Oxygen Saturation 95% 04/08/2018 10:29 AM EDT Inhaled Oxygen Concentration - - Weight 89 kg (196 lb 3.2 oz) 04/08/2018 10:28 AM EDT Height 182 cm (5' 11.65) 04/08/2018 10:28 AM ED T Body Mass Index 26.87 04/08/2018 10:28 AM EDT documented in this encounter Progress Notes * Faith Caba MD - 04/08/2018 10:30 AM EDT Images from the original note were not included. [facility] HEM ONC [facility] [place] [address] ?? ONCOLOGY FOLLOW UP VISIT DIAGNOSIS: Metastatic [...] doing well since our last visit. 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 Gave a talk [place] of dist[place] that was well received. He denies new pain. Urinary sx. overally remains active, although notes he notices his reserve is slightly lower. REVIEW OF SYSTEMS: As noted in HPI; otherwise negative. PAST MEDICAL HISTORY: 1. As above 2. GERD and Sol's esophagus S/p Alli Fundoplication 3. ELevated fasting glusoce 4. S/p distant appendectomy 5. S/p tonsilectomy MEDS: Medications 04/09/18 0448 Medication Sig Taking? abiraterone 500 mg Tablet [...] Reviewed - no change PHYSICAL EXAM: BP 137/69 (Patient Position: Sitting) Pulse 69 Temp 36.7 ??C (98.1 ??F) (Oral) Resp 18 Ht 182 cm (5' 11.65) Wt 89 kg (196 lb 3.2 oz) SpO2 95% BMI 26.87 kg/m2 Wt Readings from Last 3 Encounters: 04/08/18 89 kg (196 lb 3.2 oz) 01/14/18 89.1 kg (196 lb 6.4 oz) 10/22/17 89.2 kg (196 lb 9.6 oz) PS=0 General: NAD ENT: No OP lesions Neck: no lymphadenopathy CV: RRR Resp: CTAB GI: abd soft, non tender Neuro: No focal weakness, A&Ox3 Psych: Normal mood and affect, conversant LABS: Mild anemia otherwise normal CBC, CMP PSA 0.02! IMAGING STUDIES: No new ASSESSMENT AND PLAN: Murillo A Holaday metastatic prostate cancer with extensive disease involving nodes and bones. He renita combination lupron+zytiga as first line therapy with very good clinical response based on returnof his baseline performance status. PSA remains very low. Side effects are tolerable. Continue current therapy. Discussed that no guideline with ?interrupted ADT in this setting. I would be concerned consideringthis given his high risk disease that prompted combination therapy to begin with Plan: Return in 3 months for labs, f/u, and Lupron injection. Encouraged patient to call anytime inthe meantime with questions or concerns. Faith Caba MD Hematology/Oncology documented in this encounter Plan of Treatment Upcoming Encounters Date Type Department Care Team (Latest Contact Info) Description 09/29/2024 4:30 PM EST Hospital Encounter [place] [address] Lizet Wilkes MD [facility] [place] [address] 09/29/2024 4:30 PM EST - 09/29/2024 5:00 PM EST Surgery [place] [address] Lizet Wilkes MD [facility] [place] [address] EGD, UPPER GI ENDOSCOPY (WRVU 2.09) 11/09/2024 10:00 AM EST Laboratory Appointment Lab at [facility] Hematology Oncology [address] [place] [phone] 11/09/2024 11:00 AM EST Office Visit Hematology [place] [phone] Faith Caba MD [facility] [address] HEMATOLOGY [place] [address] 11/09/2024 12:00 PM EST Appointment Hematology [place] [address] Scheduled Procedures Name Priority Associated Diagnoses Date/Ti me EGD, UPPER GI ENDOSCOPY (WRVU 2.09) Gastroesophageal reflux disease with esophagitis, unspecified whether hemorrhage 09/29/2024 4:30 PM EST documented as of this encounter Results * PSA (07/08/2018 9:39 AM EDT) Prostate Specific Antigen (Ultrasensitiv e) 0.01 0.00 - 4.00 ng/mL [facility] Blood specimen (specimen) 07/08/2018 9:39 AM EDT 07/08/2018 9:54 AM EDT Narrative Resulting Agency Comment Spec In Lab Faith Caba MD CHEMISTRY ORDERABLES [facility] [place] [address] * (ABNORMAL) Comprehensive metabolic panel (non-fasting) (07/08/2018 9:39 AM EDT) Glucose 109 65 - 199 mg/dL [facility] Comment:Diabetes: >=200 mg/d L plus symptoms Blood Urea Nitrogen 17 10 - 20 mg/dL [facility] Creatinine 0.94 0.80 - 1.50 mg/dL [facility] Sodium 145 135 - 145 mmol/L [facility] Potassium 4.4 3.5 - 5.0 mmol/L [facility] Comment: Please note: ??Patients with WBC >100,000 may have falsely elevated Potassium levels. ??For accurate Potassium quantification in these patients send serum separator tube (gold top) for subsequent determinations. ??Contact the Clinical Chemistry Laboratory if there are any questions. Chloride 104 98 - 107 mmol/L [facility] Carbon Dioxide 23 22 - 31 mmol/L [facility] Anion Gap 18(H) 5 - 15 mmol/L [facility] Calcium 9.6 8.5 - 10.5 mg/dL [facility] Protein, Total 6.8 6.1 - 8.0 gm/dL [facility] Albumin 4.3 3.2 - 5.2 gm/dL [facility] Aspartate Aminotransferase 22 0 - 39 unit/L [facility] Alanine Aminotransferase 18 0 - 55 unit/L [facility] Alkaline Phosphatase 109 40 - 120 unit/L [facility] Bilirubin, Total 0.7 0.2 - 1.3 mg/dL [facility] Est Glomerular Filtration Rate 80 >=60 mL/min/1. 73 m?? [facility] Comment: The eGFR was calculated using the CKD-EPI equation. As with all creatinine based estimates of kidney function, eGFR values calculated with the CKD-EPI equation are not accurate in patients with acute kidney failure, extremes of body mass or the acutely ill. [email or web address]nkf eGFR 93 >=60 mL/min/1. 73 m?? [facility] Comment: The eGFR was calculated using the CKD-EPI equation. As with all creatinine based estimates of kidney function, eGFR values calculated with the CKD-EPI equation are not accurate in patients with acute kidney failure, extremes of body mass or the acutely ill. [email or web address] Blood specimen (specimen) 07/08/2018 9:39 AM EDT 07/08/2018 9:54 AM EDT Narrative Resulting Agency Comment Spec In Lab Faith Caba MD CHEMISTRY ORDERABLES [facility] [place] [address] documented in this encounter Visit Diagnoses Diagnosis Neoplasm of prostate, distant metastasis staging category M1c: distant metastasis with or without metastasis to bone Gastroesophageal reflux disease with esophagitis, unspecified whether hemorrhage documented in this encounter Care Teams Prompt Care Rn Relationship Specialty Start Date End Date Kennedi Shaver MD [address] [place] [address] PCP - General 08/22/10 08/01/20 documented as of this encounter
--- OUTSIDE RECORDS SUMMARY | 2024-09-11 15:28 | XMS_ITS | Encounter Summary ---
[place] [address] Care Team Providers Care Drafter Heating And Ventilating Name Role Phone Kennedi Shaver MD Primary Care Provider [phone] Encounter Details Date Type Department Care Team (Late st Contact Info) Description 07/08/2018 Telephone Hematology [place] [address] Reny Jj MD [facility] [address] HEMATOLOGY/[place] [address] Social History Tobacco Use Types Packs/Day Years [...] Telephone Encounter - Reny Jj MD - 07/08/2018 6:17 PM EDT Received a call from Mr. Carbone who received his Lupron Injection today. He was concerned about a possible drug reaction - described as a white powdery appearance of the finger tips on his L. Hand. Denies any pain, tingling, numbness, or cold sensation in the fingertips - merely a white appearance. Denied any other fevers, SOB, rashes, or any other concerning symptoms. I encouraged him to wash his hands, and the white appearance disappeared. It is unclear if the white appearance was due to a physical substance or from a raynaud phenomenon improved with the heat of water; however, I felt this was very unlikely a Leuprolide injection reaction. Leuprolide can rarelycause leukoderma but much more significant and wouldn't resolve so quickly. Encouraged him to continue monitoring for symptoms and call back if he developed anything concerning. CC: Dr. Caba, Deborah Hector, and karate teacher Reny Jj MD Hematology/Oncology Fellow Pager #[phone] 07/08/18 documented in this encounter Plan of Treatment Upcoming Encounters Date Type Department Care Team (Latest Contact Info) Description 09/29/2024 4:30 PM EST Hospital Encounter [place] [address] Lizet Wilkes MD [facility] [place] [address] 09/29/2024 4:30 PM EST - 09/29/2024 5:00 PM EST Surgery [place] [address] Lizet Wilkes MD [facility] [place] [address] EGD, UPPER GI ENDOSCOPY (WRVU 2.09) 11/09/2024 10:00 AM EST Laboratory Appointment Lab at [facility] Hematology Oncology [address] [place] [phone] 11/09/2024 11:00 AM EST Office Visit Hematology [place] [address] Faith Caba MD [facility] [address] [place]EM[place]OLOGY [place] [address] 11/09/2024 12:00 PM EST Appointment Hematology [place] [address] Scheduled Procedures Name Priority Associated Diagnoses Date/Ti me EGD, UPPER GI ENDOSCOPY (WRVU 2.09) Gastroesophageal reflux disease with esophagitis, unspecified whether hemorrhage 09/29/2024 4:30 PM EST documented as of this encounter Visit Diagnoses Not on filedocumented in this encounter Care Teams Drafter Heating And Ventilating Relationship Specialty Start Date End Date Kennedi Shaver MD [address] [place] [address] [address] [place] [address] PCP - General 08/22/10 08/01/20 documented as of this encounter
--- OUTSIDE RECORDS SUMMARY | 2024-09-11 15:29 | XMS_ITS | Encounter Summary ---
Author Organization [facility] [place] [address] Care Team Providers Care Auto [employer] Safety Program Coordinator Name Role Phone Kennedi Shaver MD Primary Care Provider [phone] Encounter Details Date Type Department Care Team (Late st Contact Info) Description 02/14/2017 Telephone [place] [address] Leda Ayala MD [facility] [place] [address] Social History Tobacco Use Types Packs/Day Years [...] encounter Miscellaneous Notes * Telephone Encounter - Leda Ayala MD - 02/14/2017 8:57 PM EDT Called patient to discuss MRI neck results. I have not met the patient but he was referred to me for lipoma evaluation. He had an US done priorto seeing me and because it showed concern for malignant lymph nodes, I ordered a follow up MRI neck which does show multiple concerning left cervical lyph nodes that have a malignant appearance. I discussed these results with him over the phone and discussed that this may be lymphoma or metastatic lymph nodes from a primary malignancy in his head/neck area or lungs. He reports his only past history of anything related to malignancy would be his barretts esophagus. We decided that I would discuss these findings with Dr Shaver so that she may continue work up with CT chest, abd pelvis, and pending findings he will have a more directed workup that may require laryngoscopy or EGD and FNA oflymph node by IR. At this point the differential is broad. Dr Carbone also requested that I send this info to Dr. Rocha. CVA documented in this encounter Plan of Treatment Upcoming Encounters Date Type Department Care Team (Latest Contact Info) Description 09/29/2024 4:30 PM EST Hospital Encounter [place] [address] Lizet Wilkes MD [facility] [place] [address] 09/29/2024 4:30 PM EST - 09/29/2024 5:00 PM EST Surgery [place] [address] Lizet Wilkes MD [facility] [place] [address] EGD, UPPER GI ENDOSCOPY (WRVU 2.09) 11/09/2024 10:00 AM EST Laboratory Appointment Lab at [facility] Hematology Oncology [address] [place] [phone] 11/09/2024 11:00 AM EST Office Visit Hematology [place] [address] Faith Caba MD [facility] [place] [address] 11/09/2024 12:00 PM EST Appointment Hematology [place] [address] Scheduled Procedures Name Priority Associated Diagnoses Date/Ti me EGD, UPPER GI ENDOSCOPY (WRVU 2.09) Gastroesophageal reflux disease with esophagitis, unspecified whether hemorrhage 09/29/2024 4:30 PM EST documented as of this encounter Visit Diagnoses Not on filedocumented in this encounter Care Teams [employer] Safety Program Coordinator Relationship Specialty Start Date End Date Kennedi Shaver MD [facility] [address] [place] [address] PCP - General 08/22/10 08/01/20 documented as of this encounter
--- OUTSIDE RECORDS SUMMARY | 2024-09-11 15:29 | XMS_ITS | Encounter Summary ---
[place] [address] Care Team Providers Care Dry Sand Molder Name Role Phone Kennedi Shaver MD Primary Care Provider [phone] Encounter Details Date Type Department Care Team (Late st Contact Info) Description 04/23/2017 10:30 AM EDT Office Visit Hematology [place] [address] Faith Houston MD [facility] DR HEMATOLOGY [place] [address] Neoplasm of prostate, distant metastasis staging category [...] Reading Time Taken Comments Blood Pressure 147/65 04/23/2017 10:35 AM EDT Pulse 77 04/23/2017 10:35 AM EDT Temperature 36.6 ??C (97.9 ??F) 04/23/2017 1 0:35 AM EDT Respiratory Rate 17 04/23/2017 10:3 5 AM EDT Oxygen Saturation 98% 04/23/2017 10: 35 AM EDT Inhaled Oxygen Concentration - - Weight 89.3 kg (196 lb 12.8 oz) 017 10:35 AM EDT Height 182 cm (5' 11.65) 04/23/2017 10 :35 AM EDT Body Mass Index 26.95 04/23/2017 10:35 AM EDT documented in this encounter Progress Notes * Faith Houston MD - 04/23/2017 10:30 AM EDT Images from the original note were not included. N [facility] HEM ONC [facility] [address] ?? DATE: 04/23/2017 FOLLOW UP VISIT DIAGNOSIS: Metastatic prostate cancer [...] injection 7.5 mg on 03/20/2017 HPI: Chidi Lopez Holaday returns for f/u 1 month after starting lupron. He was admitted to urinary retention and required cathing briefly. Nt clear precipitation event but feels it was tempraly Related to stopping casodex. Since restarting, He noticed significant improvement in urinary sx with resolution of frequency, nocturia and urgency. He has noticed intermittent hot flushes that are manageable. He otherwise denies new sx including pain, fever/chills, energy is good. REVIEW OF SYSTEMS: Aside from above, the remainder of the the ROS was negative PAST MEDICAL HISTORY: 1. As above 2. GERD and Sol's esophagus S/p Alli Fundoplication 3. ELevated fasting glusoce 4. S/p distant appendectomy 5. S/p tonsilectomy MEDS: Medications 04/23/17 1040 Medication Sig Taking? ibuprofen (ADVIL;MOTRIN) 200 mg Tablet Take 200 mg by mouth every 6 hours as needed for Pain. Yes bicalutamide (CASODEX) 50 mg Tablet Take 1 tablet by mouth daily. Start taking prior to your injection Yes pantoprazole (PROTONIX) 20 mg Tablet, Delayed [...] file Social History Narrative PHYSICAL EXAM: BP 147/65 (Patient Position: Sitting) Pulse 77 Temp 36.6 ??C (97.9 ??F) (Temporal) Resp 17 Ht 182 cm (5' 11.65) Wt 89.3 kg (196 lb 12.8 oz) SpO2 98% BMI 26.95 kg/m2 PS=0 General: Well appearing. Head: NCAT ENT: No OP lesions Heart: RRR, no murmur Lungs: CTAB Abd: NABS, NT, ND Heme: decrease size od L Sc node now ~2.5 cm in greatest dimensions Neuro: No focal weakness Psych: Normal mood and affect. LABS: Recent Results (from the past 24 hour(s)) Comprehensive metabolic panel (non-fasting) Result Value Ref Range Glucose Lvl 107 65 - 199 mg/dL BUN 18 10 - 20 mg/dL Creatinine 0.95 0.80 - 1.50 mg/dL Sodium 142 135 - 145 mmol/L Potassium 4.5 3.5 - 5.0 mmol/L Chloride 103 98 - 107 mmol/L CO2 25 22 - 31 mmol/L Anion Gap 14 5 - 15 mmol/L Calcium 9.6 8.5 - 10.5 mg/dL Total Protein 7.4 6.1 - 8.0 gm/dL Albumin 4.4 3.2 - 5.2 gm/dL AST 17 0 - 39 unit/L ALT 18 0 - 55 unit/L Alk Phos 82 40 - 120 unit/L Total Bilirubin 0.5 0.2 - 1.3 mg/dL Estimated GFR >60 >=60 PSA Result Value Ref Range PSA Total 28.00 (H) 0.00 - 4.00 ng/mL Testosterone, total Result Value Ref Range Testo Total 0.15 (L) 2.80 - 8.00 ng/mL Hemogram Result Value Ref Range WBC 5.7 4.0 - 9.5 x10(3)/mcL RBC 4.94 4.58 - 5.54 x10(6)/mcL Hemoglobin 14.9 13.7 - 16.5 gm/dL Hematocrit 42.8 40.5 - 48.5 % MCV 86.6 82.9 - 93.1 fL MCH 30.2 27.5 - 32.1 pg MCHC 34.8 32.0 - 35.7 gm/dL Platelets 225 145 - 357 x10(3)/mcL RDWSD 41.2 36.0 - 45.0 fL RDWCV 13.2 11.4 - 13.8 % MPV 10.0 7.6 - 12.9 fL nRBC % Auto 0.0 % nRBC Abs Auto 0.000 0.000 - 0.000 x10(3)/mcL Differential, Automated Result Value Ref Range Neutrophils % 56.8 % Neutr Abs (ANC) 3.22 1.70 - 6.10 x10(3)/mcL Lymphocytes % 24.3 % Lymphocytes Abs 1.4 0.9 - 3.2 x10(3)/mcL Monocytes % 12.9 % Monocyte Abs 0.7 0.3 - 0.9 x10(3)/mcL Eosinophils % 5.1 % Eosinophils Abs 0.3 0.0 - 0.4 x10(3)/mcL Basophils % 0.7 % Basophils Abs 0.0 0.0 - 0.1 x10(3)/mcL Immature Gran % 0.20 % Julisa Gran Abs 0.01 0.00 - 0.04 x10(3)/mcL IMAGING STUDIES: No new ASSESSMENT AND PLAN: Chidi A Holaday metastatic prostate cancer with extensive disease involving nodes and bones. I reviewed his work up including imaging, labs and path again with his family. As detailed in my prior note, he has bone disease in the rib and femur. He is on palliative ADT ad so far has a great response based on PSA and clinical sx. We spent the majority of the visit today reviewing his reponse to date and the role of adjunct therapy with chemotherapy as well as recently released data and approval for upfront abiraterone. After review, he would like to consider edmar. I discussed with him that this may not yet be covered by insurance but we will try to get the PA if covered. If not, we would move to consider chemo in the next month or two. He agrees with this. We reviewed the importance of QOL, secifically with balancing SEs of therapy with expected benefit. Pt was instructed to call our clinic with any new symptom or any questions. Faith Houston MD, PhD Hematology/Oncology documented in this encounter Miscellaneous Notes * Addendum Note - Faith Houston MD - 04/26/2017 1:48 PM EDTAddended by: FAITH HOUSTON on: 04/26/2017 01:48 PM Modules accepted: Orders documented in this encounter Plan of Treatment Upcoming Encounters Date Type Department Care Team (Latest Contact Info) Description 09/29/2024 4:30 PM EST Hospital Encounter [place] [address] Lizet Wilkes MD [facility] [place] [address] 09/29/2024 4:30 PM EST - 09/29/2024 5:00 PM EST [place] [phone] Lizet Wilkes MD [facility] [place] [address] EGD, UPPER GI ENDOSCOPY (WRVU 2.09) 11/09/2024 10:00 AM EST Laboratory Appointment Lab at [facility] [place] Hematology Oncology [address] [place] [phone] 11/09/2024 11:00 AM EST Office Visit Hematology [place] [phone] Faith Houston MD [facility] DR [place] [address] 11/09/2024 12:00 PM EST Appointment Hematology [place] [phone] Scheduled Procedures Name Priority Associated Diagnoses Date/Ti [...] hemorrhage documented in this encounter Care Teams Dry Sand Molder Relationship Specialty Start Date End Date Sivakumar, Kennedi C, MD [address] [place] [address] PCP - General 08/22/10 08/01/20 documented as of this encounter
--- OUTSIDE RECORDS SUMMARY | 2024-09-11 15:29 | XMS_ITS | Encounter Summary ---
Author Organization [facility] [place] [address] Care Team Providers Care Emergency Planning And Response Manager Name Role Phone Kennedi Shaver MD Primary Care Provider [phone] Reason for Visit * Consultation (ARNULFO) - Closed Specialty Diagnoses / Procedures Referred By Blaine peralta Referred To Contact Hematology and Oncology Diagnoses metastatic prostate Kennedi Shaver MD [facility] [address] [place] [address] [facility] Hem Onc [address] [place] [address] Referral ID Status Reason Start Date Expiration Date V isits Requested Visits Authorized [id number] Closed Consult, Test & Treat Connection [facility] 02/28/2017 02/28/2018 1 1 Encounter Details Date Type Department Care Team (Late st Contact Info) Description 03/05/2017 3:30 PM EDT Office Visit Hematology [place] [address] Faith Caba MD [facility] [place] [address] Neoplasm of prostate, distant metastasis [...] Reading Time Taken Comments Blood Pressure 137/69 03/05/2017 3:30 PM EDT Pulse 67 03/05/2017 3:30 PM EDT Temperature 36.3 ??C (97.3 ??F) 03/05/2017 3:30 PM ED T Respiratory Rate 17 03/05/2017 3:30 PM EDT Oxygen Saturation 99% 03/05/2017 3:30 PM EDT Inhaled Oxygen Concentration - - Weight 91.5 kg (201 lb 12.8 oz) 03/05/2017 3:30 PM EDT Height 181 cm (5' 11.26) 03/05/2017 3:30 PM EDT Body Mass Index 27.94 03/05/2017 3:30 PM EDT documented in this encounter Progress Notes * Faith Caba MD - 03/05/2017 3:30 PM EDT Images from the original note were not included. N [facility] [phone] ?? DATE: 03/05/2017 INITIAL VISIT REFERING PHYSICIAN: Dr Ayala DIAGNOSIS: Metastatic prostate cancer to bone and [...] compatibe with metastatic prostate. TTF1 was negative HPI: Chidi Carbone is a 71 y.o. man with above oncology hx here t discuss his dx and treatment options. I have reviewed his workup to date and confirmed this with the patient and his family and summarized bello findings above. On ROS, he denies pain, has stable LUTS, no hematuria REVIEW OF SYSTEMS: Aside from above, the remainder of the the ROS was negative PAST MEDICAL HISTORY: 1. As above 2. GERD and Sol's esophagus S/p Alli Fundoplication 3. ELevated fasting glusoce 4. S/p distant appendectomy 5. S/p tonsilectomy MEDS: Medications 03/11/17 2100 Medication Sig Taking? pantoprazole (PROTONIX) 20 mg Tablet, Delayed Release (E.C.) Take 20 mg by mouth 2 times daily. Yes acetaminophen (TYLENOL) 650 mg/20.3 mL oral liquid Take 20.3 mLs by mouth every 4 hours as needed. Yes DUTASTERIDE/TAMSULOSIN HCL (ARNOL ORAL) Take by mouth daily. Yes ZOLPIDEM TARTRATE (AMBIEN ORAL) Yes ALLERGY: No Known Allergies FAMILY HX: No family history on file. SOCIAL HX: Social History Social History ??? [...] file Social History Narrative PHYSICAL EXAM: BP 137/69 (Patient Position: Sitting) Pulse 67 Temp 36.3 ??C (97.3 ??F) (Temporal) Resp 17 Ht 181 cm (5' 11.26) Wt 91.5 kg (201 lb 12.8 oz) SpO2 99% BMI 27.94 kg/m2 PS=0 General: Well appearing, not in acute distress. Head: NCAT Eyes: Not icteric, not injected Oral: clear. No Op lesions Neck: Supple. Nodes: + multiple supraclav > cervical nodes that are hard but mobile up to 2 cm No axillary inguinal nodes Lungs: CTAB, No wheezing, No crackles Heart: Regular rate and rhythm. No murmur Abdomen: Soft, no tenderness, no mass, normal active bowel sounds. Extremities: No edema. Skin: No rash noted Neuro: No focal weakness Psych: Normal mood and affect. LABS: Reviewed as above IMAGING STUDIES: I have personally reviewed the images and radiology reports and summarized the findings as above ASSESSMENT AND PLAN: Chidi Carbone has new dx of metastatic prostate cancer with extensive disease involving nodes and bones. I r eviewed his labs and imaging as well as path dx with him. I suspect his rib lesion is disease related given no recent trauma. The significance and natural course of metastatic prostate cancer was extensive reviewed. We discussed the role and concept of palliative ADT +/- chemotherapy As well as recently released data and approval for upfront abiraterone. Specifically we discussed orchiectomy (was clear he is not interested), vs GnRH agonists and antagonists with equivalent benefit and Se profile. i reviewed the potential SEs that are all related to testosterone withdrawal. I additionally discussed the necessity and SEs of antiandrogen agents with starting GnRH agonists. We briefly discussed the role of chemotherapy upfront as well we addition of abiraterone. He would be a candidate for chemotherapy based on extent of disease. We will discuss these option further once he starts treatment. We reviewed the importance of QOL, secifically with balancing SEs of therapy with expected benefit. He would like to review these medication and then seen me in 2 weeks with plan to sarte therapy at that time. Pt was instructed to call our clinic with any new symptom or any questions. Thank you very much for referring this patient to medical oncology. Faith Caba MD, PhD Hematology/Oncology documented in this encounter Plan of Treatment Upcoming Encounters Date Type Department Care Team (Latest Contact Info) Description 09/29/2024 4:30 PM EST Hospital Encounter Gastroenterology at [place] [phone] Lizet Wilkes MD [facility] [place] [address] 09/29/2024 4:30 PM EST - 09/29/2024 5:00 PM EST [place] [phone] Lizet Wilkes MD [facility] [place] [address] EGD, UPPER GI ENDOSCOPY (WRVU 2.09) 11/09/2024 10:00 AM EST Laboratory Appointment [place] [facility] [place] [address] [place] [phone] 11/09/2024 11:00 AM EST Office Visit [place]ematology [place] [phone] Faith Caba MD [facility] DR HEMATOLOGY [place] [address] 11/09/2024 12:00 PM EST Appointment Hematology [place] [phone] Scheduled Procedures Name Priority Associated Diagnoses Date/Ti [...] hemorrhage documented in this encounter Care Teams Emergency Planning And Response Manager Relationship Specialty Start Date End Date Kennedi Shaver MD [address] [place] [address] PCP - General 08/22/10 08/01/20 documented as of this encounter
--- OUTSIDE RECORDS SUMMARY | 2024-09-11 15:29 | XMS_ITS | Encounter Summary ---
[place] [address] Care Team Providers Care Director Of Primary Care Name Role Phone Kennedi Shaver MD Primary Care Provider [phone] Reason for Visit * Reason Onset Date Comments Diarrhea 03/06/2017 Encounter Details Date Type Department Care Team (Late st Contact Info) Description 03/06/2017 Telephone Hematology [place] [address] Patricia James CRIME LAB TECHNICIAN ROOM Diarrhea Social History Tobacco Use Types Packs/Day Years [...] Telephone Encounter - Patricia James RN - 03/06/2017 10:00 AM EDT Message received from correction worker: Patient called and said this morning he had a spell of uncontrollable diarrhea. He said that this is new and is not sure if it has to do with his cancer or something else. He would like to speak to you regarding this and can be reached at [phone]. Spoke w/pt who stated this morning about 0900 had episode of 'totally uncontrollable, immediate andcomplete' diarrhea, it was 'like opening a door and letting everything out', happened while he was driving and wasn't able to control it, since then has been fine, mainly liquid but some solid, only other episode of incontinence of stool was about 50 yrs ago, denies n/t/weakness in legs, hasn't noticed any changes in legs but acknowledges that he's sitting down now feeling weak, urination has been getting noticeably worse over the last few weeks, had a stool early this morning which was normal (formed), no nausea/queasiness but 'may have an inkling of it', no fever, yesterday ate stinging angel which was unusual for him- obtained at a [employer] market and cooked for 20min Assessment/plan: will discuss w/ provider in case he wishes to get a scan (belive unlikely since asof 02/26 bone scan no evidence of metastatic disease in spine), discussed that it may be that the stinging angel didn't agree with him, push fluids, reviewed s/s of potential cord compression and when to call clinic, monitor and call clinic if recurs or other new s/s develop Pt in agreement with plan and knows to call clinic with any concerns and/or questions. Discussed w/ Faith Caba MD who agreed w/ above plan- monitor and call for recurrence of s/s or any new s/s Pt in agreement with plan and knows to call clinic with any concerns and/or questions. documented in this encounter Plan of Treatment Upcoming Encounters Date Type Department Care Team (Latest Contact Info) Description 09/29/2024 4:30 PM [facility] Hospital En[place] [address] Lizet Wilkes MD [facility] [place] [address] 09/29/2024 4:30 PM EST - 09/29/2024 5:00 PM EST Surgery Gastroenterology at [place] [address] Lizet Wilkes MD [facility] [place] [address] EGD, UPPER GI ENDOSCOPY (WRVU 2.09) 11/09/2024 10:00 AM EST Laboratory Appointment Lab at [facility] [place]ematology Oncology [address] [place] [address] 11/09/2024 11:00 AM EST Office Visit [place]ology [place] [phone] Faith Caba MD [facility] DR HEMATOLOGY [place] [address] 11/09/2024 12:00 PM EST Appointment Hematology and Oncology at [place] [address] Scheduled Procedures Name Priority Associated Diagnoses Date/Ti me EGD, UPPER GI ENDOSCOPY (WRVU 2.09) Gastroesophageal reflux disease with esophagitis, unspecified whether hemorrhage 09/29/2024 4:30 PM EST documented as of this encounter Visit Diagnoses Not on filedocumented in this encounter Care Teams Director Of Primary Care Relationship Specialty Start Date End Date Kennedi Shaver MD [facility] [address] [place] [address] PCP - General 08/22/10 08/01/20 documented as of this encounter
--- OUTSIDE RECORDS SUMMARY | 2024-09-11 15:29 | XMS_ITS | Encounter Summary ---
[place] [address] Care Team Providers Care Fine Grader Name Role Phone Kennedi Shaver MD Primary Care Provider [phone] Reason for Visit * Reason Onset Date Comments Follow-up 02/06/2017 Encounter Details Date Type Department Care Team (Late st Contact Info) Description 02/06/2017 Telephone [place] [address] Sujey Ramos APRN [facility] [place] [address] Follow-up Social History Tobacco Use Types Packs/Day Years [...] Miscellaneous Notes * Telephone Encounter - Sujey Ramos APRN - 02/06/2017 2:38 PM EDT I called Mr Raf at Dr Ayala request to review his neck US results. The US showed several enlarged lymph nodes and felt to be inconclusive by Dr Ayala in defining the neck mass.She is recommending a neck MRI which he agrees with. This will be scheduled.He has an appt with Dr Ayala on 02/08. He will keep that appt and we will attempt to schedule the MRI for that day. He agrees. documented in this encounter Plan of Treatment Upcoming Encounters Date Type Department Care Team (Latest Contact Info) Description 09/29/2024 4:30 PM EST Hospital Encounter Gastroenterology at [place] [phone] Lizet Wilkes MD [facility] [place] [address] 09/29/2024 4:30 PM EST - 09/29/2024 5:00 PM EST Surgery [place] [phone] Lizet Wilkes MD [facility] [place] [address] EGD, UPPER GI ENDOSCOPY (WRVU 2.09) 11/09/2024 10:00 AM EST Laboratory Appointment Lab at [facility] On[place] [address] [place] [phone] 11/09/2024 11:00 AM EST Office Visit Hematology [place] [phone] Faith Caba MD [facility] HEMATOLOGY [place] [address] 11/09/2024 12:00 PM EST Appointment Hematology [place] [phone] Scheduled Procedures Name Priority Associated Diagnoses Date/Ti me EGD, UPPER GI ENDOSCOPY (WRVU 2.09) Gastroesophageal reflux disease with esophagitis, unspecified whether hemorrhage 09/29/2024 4:30 PM EST documented as of this encounter Visit Diagnoses Not on filedocumented in this encounter Care Teams Fine Grader Relationship Specialty Start Date End Date Kennedi Shaver MD [address] [place] [address] PCP - General 08/22/10 08/01/20 documented as of this encounter
--- OUTSIDE RECORDS SUMMARY | 2024-09-11 15:29 | XMS_ITS | Encounter Summary ---
Author Organization [facility] [place] [address] Care Team Providers Care In Room Dining Server Name Role Phone Kennedi Shaver MD Primary Care Provider [phone] Reason for Visit * Reason Comments Follow-up Encounter Details Date Type Department Care Team (Late st Contact Info) Description 03/20/2017 11:00 AM EDT Office Visit Hematology [place] [address] Nona Galvan, [facility] HEMATOLOGY/[place] [address] Neoplasm of prostate, distant metastasis staging category [...] Sign Reading Time Taken Comments Blood Pressure 133/81 03/20/2017 10:55 AM EDT Pulse 66 03/20/2017 10:55 AM EDT Temperature 36.7 ??C (98.1 ??F) 03/20/2017 10:55 AM E DT Respiratory Rate 15 03/20/2017 10:55 AM EDT Oxygen Saturation 96% 03/20/2017 10:55 AM EDT Inhaled Oxygen Concentration - - Weight 90.1 kg (198 lb 9.6 oz) 03/20/2017 10:55 AM EDT Height 181.5 cm (5' 11.46) 03/20/2017 10:55 AM EDT Body Mass Index 27.35 03/20/2017 10:55 AM EDT documented in this encounter Progress Notes * Nona Galvan, STACKER STRAIGHTENER - 03/20/2017 11:00 AM EDT Images from the original note were not included. [facility] [phone] ?? DATE: 03/18/2017 FOLLOW UP VISIT DIAGNOSIS: Metastatic prostate cancer to bone and LNs ONCOLOGIC HX: P/w years of worsening LUTS initially responsive to finasteride but then progressed In December 2016, p/w L facial tingling and new painless subcut nodule Chest X-ray was normal CBC and on 01/18/2017 was normal US of neck on 02/05/17 showed multiple abnormal LNs largest 4.9 x 2.8 x 1.6 cm. MRI on 02/08/17 corroborated above with node compressing and slightly narrowed L jugular v. CT Chest/Abd/Pelvis on 02/19/17 showed enlarged aortocaval and para-aortic nodes (up to 3.9 x 2.8 cm), enlarged irregular prostate gland, and indeterminate small sclerotic focus in theposterior right iliac wing. PSA on 02/19/2016 was 207 (on finasteride). CBC and CMP was normal with Alk Phos 100 and Cr 0.98 Bone Scan on [...] y.o. man with above oncology hx here for routine follow up and initiation of ADT with Lupron. On ROS, he denies pain, has stable LUTS, no hematuria. No other focal complaints. REVIEW OF SYSTEMS: Aside from above, the remainder of the the ROS was negative PAST MEDICAL HISTORY: 1. As above 2. GERD and Sol's esophagus S/p Alli Fundoplication 3. Elevated fasting glucose 4. S/p distant appendectomy 5. S/p tonsilectomy MEDS: Medications 03/18/17 1319 Medication Sig Taking? ibuprofen (ADVIL;MOTRIN) 200 mg Tablet Take 200 mg by mouth every 6 hours as needed for Pain. bicalutamide (CASODEX) 50 mg Tablet Take 1 tablet by mouth daily. Start taking prior to your injection pantoprazole (PROTONIX) 20 mg Tablet, Delayed Release (E.C.) Take 20 mg by mouth 2 times daily. acetaminophen (TYLENOL) 650 mg/20.3 mL oral liquid Take 20.3 mLs by mouth every 4 hours as needed. Patient not taking: Reported on 03/12/2017 DUTASTERIDE/TAMSULOSIN HCL (ARNOL ORAL) Take by mouth [...] ??? Not on file Social History Narrative Physical Exam Vitals: BP 133/81 (Patient Position: Sitting) Pulse 66 Temp 36.7 ??C (98.1 ??F) (Temporal) Resp 15 Ht 181.5 cm (5' 11.46) Wt 90.1 kg (198 lb 9.6 oz) SpO2 96% BMI 27.35 kg/m2 Constitutional: He is oriented to person, place, and time. Conversant, interactive He appears well-developed and well-nourished. No distress. HENT: Head: Normocephalic and atraumatic. Eyes: Conjunctivae and EOM are normal. Pupils are equal, round, and reactive to light. No scleral icterus. Neck: Normal range of motion. Neck supple. No thyromegaly present. no oropharyngeal lesions, erythema or exudates Cardiovascular: Normal rate, regular rhythm, normal heart sounds and intact distal pulses. No murmur heard. Pulmonary/Chest: Effort normal and breath sounds normal. No respiratory distress. He has no wheezes. He has no rales. Abdominal: Soft. Bowel sounds are normal. He exhibits no distension and no mass. There is no tenderness. Lymphadenopathy: Left neck adenopathy supraclavicular 1.5 x 2 cm. No other palpable lymph nodes in cervical, axillary or inguinal area Neurological: He is alert and oriented to person, place, and time. No cranial nerve deficit. ambulatory, moves all 4 extremities Skin: no visible rashes or lesions Psychiatric: He has a normal mood and affect. His behavior is normal. LABS: BP 133/81 (Patient Position: Sitting) Pulse 66 Temp 36.7 ??C (98.1 ??F) (Temporal) Resp 15 Ht 181.5 cm (5' 11.46) Wt 90.1 kg (198 lb 9.6 oz) SpO2 96% BMI 27.35 kg/m2 IMAGING STUDIES: No new imaging ASSESSMENT AND PLAN: Chidi Carbone has new dx of metastatic prostate cancer with extensive disease involving nodes and bones. As detailed in prior note, he has bone disease in the rib and femur. Here today to initiate ADT with Lupron. Side effects again reviewed in detail including but not limited to hot flashes, mood swings, night sweats, increase in blood sugar and cholesterol, decrease inmuscle and bone mass, increase in cardiovascular events. He agrees to proceed today with treatment.He initiated Casodex daily x 3 days ago. We will continue on CAB for at least one month. He would prefer one month formulation at this time. Plan: Lupron 7.5 mg today Continue Casodex daily, stop after 30 days. RTC in 1 month with labs, provider visit and anticipation of next injection. All questions were answered to the patient's satisfaction. Instructed to call in the interim with any questions or concerns. Nona Galvan, RN, MSN, STACKER STRAIGHTENER [facility]/[address] [place] [address] documented in this encounter Plan of Treatment Upcoming Encounters Date Type Department Care Team (Latest Contact Info) Description 09/29/2024 4:30 PM EST Hospital Encounter Gastroenterology at [place] [phone] Lizet Wilkes MD [facility] [place] [address] 09/29/2024 4:30 PM EST - 09/29/2024 5:00 PM EST Surgery [place] [phone] Lizet Wilkes MD [facility] [place] [address] EGD, UPPER GI ENDOSCOPY (WRVU 2.09) 11/09/2024 10:00 AM EST Laboratory [place]ointment [place] [facility] [place] [address] [place] [phone] 11/09/2024 11:00 AM EST Office Visit Hematology [place] [phone] Faith Caba MD [facility] DR HEMATOLOGY [place] [address] 11/09/2024 12:00 PM EST Appointment Hematology [place] [phone] Scheduled Procedures Name Priority Associated Diagnoses Date/Ti me EGD, UPPER GI ENDOSCOPY (WRVU 2.09) Gastroesophageal reflux disease with esophagitis, unspecified whether hemorrhage 09/29/2024 4:30 PM EST documented as of this encounter Results * (ABNORMAL) Testosterone, total (04/23/2017 9:37 AM EDT) Testosterone 0.15(L) 2.80 - 8.00 ng/mL [facility] Comment: Reference Ranges: ? Males (7to18 years) ?Females (8-18 years) Balwinder Stage ?ng/ml ? ng/ml ? 1 ? <0.03 ? <0.03 to 0.06 ? 2 ? <0.03 to 4.32 ? <0.03 to 0.10 ? 3 ? 0.65 to 7.78 ?<0.03 to 0.24 ? 4 ? 1.80 to 7.63 ?<0.03 to 0.27 ? 5 ? 1.88 to 8.82 ?<0.05 to 0.38 ?Males 18 years to adult ? Females 18 years to adult ? 2.80 to 8.00 ng/ml ?0.06 to 0.82 ng/ml Stated adult reference ranges derived from review of Kenneth E170 Testosterone reagent package insert V8 Stated pediatric reference ranges derived from review of Kenneth E170 Testosterone II reagent package insert V2. Blood specimen (specimen) 04/23/2017 9:37 AM EDT 04/23/2017 9:42 AM EDT Narrative Resulting Agency Comment Spec In Lab Nona Galvan APRN CHEMISTRY ORDE RABEPI Performing Organization Address [facility] Co de Phone Number [facility] [place] [address] * (ABNORMAL) PSA (04/23/2017 9:37 AM EDT) [facility] Prostate Specific Antigen (Ultrasensitiv e) 28.00(H) 0.00 - 4.00 ng/mL [facility] Blood specimen (specimen) 04/23/2017 9:37 AM EDT 04/23/2017 9:42 AM EDT Narrative Resulting Agency Comment Spec In Lab Nona Galvan APRN CHEMISTRY ORDE RABNest Labs Performing Organization Address [facility] Co de Phone Number [facility] [place] [address] * Comprehensive metabolic panel (non-fasting) (04/23/2017 9:37 AM EDT) [facility] Glucose 107 65 - 199 mg/dL [facility] Comment:Diabetes: >=200 mg/d L plus symptoms Blood Urea Nitrogen 18 10 - 20 mg/dL [facility] Creatinine 0.95 0.80 - 1.50 mg/dL [facility] Comment: Please note that the pediatric reference intervals supplied above were not validated at [facility]. Results from pediatric patients should be interpreted in conjunction to the patient's age, height and muscle mass. Sodium 142 135 - 145 mmol/L [facility] Potassium 4.5 3.5 - 5.0 mmol/L [facility] Comment: Please note: ??Patients with WBC >100,000 may have falsely elevated Potassium levels. ??For accurate Potassium quantification in these patients send serum separator tube (gold top) for subsequent determinations. ??Contact the Clinical Chemistry Laboratory if there are any questions. Chloride 103 98 - 107 mmol/L [facility] Carbon Dioxide 25 22 - 31 mmol/L [facility] Anion Gap 14 5 - 15 mmol/L [facility] Calcium 9.6 8.5 - 10.5 mg/dL [facility] Protein, Total 7.4 6.1 - 8.0 gm/dL [facility] Albumin 4.4 3.2 - 5.2 gm/dL [facility] Aspartate Aminotransferase 17 0 - 39 unit/L [facility] Alanine Aminotransferase 18 0 - 55 unit/L [facility] Alkaline Phosphatase 82 40 - 120 unit/L [facility] Bilirubin, Total 0.5 0.2 - 1.3 mg/dL [facility] Est Glomerular Filtration Rate >60 >=60 [facility] Comment: This estimated GFR (eGFR) value [...] the following links into your internet browser. [email or web address] Blood specimen (specimen) 04/23/2017 9:37 AM EDT 04/23/2017 9:42 AM EDT Narrative Resulting Agency Comment Spec In Lab Nona Galvan APRN CHEMISTRY DAJUAN QURESHI [facility] [place] [address] documented in this encounter Visit Diagnoses Diagnosis Neoplasm of prostate, distant metastasis staging category M1c: distant metastasis with or without metastasis to bone Gastroesophageal reflux disease with esophagitis, unspecified whether hemorrhage documented in this encounter Care Teams In Room Dining Server Relationship Specialty Start Date End Date Kennedi Shaver MD [facility] [address] [place] [address] PCP - General 08/22/10 08/01/20 documented as of this encounter
--- OUTSIDE RECORDS SUMMARY | 2024-09-11 15:29 | XMS_ITS | Encounter Summary ---
Author Organization [facility] [place] [address] Care Team Providers Care Crew Director Name Role Phone Kennedi Shaver MD Primary Care Provider [phone] Reason for Visit * Reason Onset Date Comments Follow-up 04/08/2017 Encounter Details Date Type Department Care Team (Late st Contact Info) Description 04/08/2017 Telephone Hematology [place] [phone] Patricia James [employer] INTEGRATION SPECIALIST ROOM Follow-up Social History Tobacco Use Types Packs/Day [...] Telephone Encounter - Patricia James RN - 04/08/2017 8:16 AM EDT Message received from secretary specialist: [phone] - wants to give an update Spoke w/ pt who stated he restarted the casodex, hasn't had any dizziness however on Saturday his urine stream basically stopped. He ended up in distress so he called his urologist in [place] abnd was seen in [place] for a catheterization and was taught to self cath. Stated has had to cath twice and feels that as the days have progressed has been urinating more. Pt knows to call clinic w/ any concerns/questions. documented in this encounter Plan of Treatment Upcoming Encounters Date Type Department Care Team (Latest Contact Info) Description 09/29/2024 4:30 PM EST Hospital Encounter Gastroenterology at [place] [phone] Lizet Wilkes MD [facility] [place] [address] 09/29/2024 4:30 PM EST - 09/29/2024 5:00 PM EST Surgery Gastroenterology at [place] [phone] Lizet Wilkes MD [facility] [place] [address] EGD, UPPER GI ENDOSCOPY (WRVU 2.09) 11/09/2024 10:00 AM EST Laboratory App[place]ment [place] [facility] [place] [address] [place] [phone] 11/09/2024 11:00 AM EST Office Visit Hematology [place] [phone] Faith Caba MD [facility] [address] [place] [address] 11/09/2024 12:00 PM EST Appointment Hematology [place] [phone] Scheduled Procedures Name Priority Associated Diagnoses Date/Ti me EGD, UPPER GI ENDOSCOPY (WRVU 2.09) Gastroesophageal reflux disease with esophagitis, unspecified whether hemorrhage 09/29/2024 4:30 PM EST documented as of this encounter Visit Diagnoses Not on filedocumented in this encounter Care Teams Crew Director Relationship Specialty Start Date End Date Kennedi Shaver MD [address] [place] [address] PCP - General 08/22/10 08/01/20 documented as of this encounter
--- OUTSIDE RECORDS SUMMARY | 2024-09-11 15:29 | XMS_ITS | Encounter Summary ---
Author Organization [facility] [place] [address] Care Team Providers Care Optical Engineering Technician Name Role Phone Kennedi Shaver MD Primary Care Provider [phone] Reason for Visit * Reason Onset Date Comments Questions 03/18/2017 Encounter Details Date Type Department Care Team (Late st Contact Info) Description 03/18/2017 Telephone [place]ology [place] [phone] Patricia James METAL CEILING BUILDER ROOM Questions Social History Tobacco Use Types [...] Telephone Encounter - Patricia James RN - 03/18/2017 8:39 AM EDT Message received from marketing secretary: Patient is asking if he is supposed to take Casadex and if so whenshould he? Spoke w/ pt Plan: per MD's last office note pt to start casodex a few days prior to lupron, since lupron inj isscheduled for 03/20 recommend starting tonight Pt in agreement with plan and knows to call clinic with any concerns and/or questions. documented in this encounter Plan of Treatment Upcoming Encounters Date Type Department Care Team (Latest Contact Info) Description 09/29/2024 4:30 PM EST Hospital En[place] [phone] Lizet Wilkes MD [facility] [place] [address] 09/29/2024 4:30 PM EST - 09/29/2024 5:00 PM EST [place] [phone] Lizet Wilkes MD [facility] [place] [address] EGD, UPPER GI ENDOSCOPY (WRVU 2.09) 11/09/2024 10:00 AM EST Laboratory Appointment Lab at [facility] [place]ology Oncology [address] [place] [phone] 11/09/2024 11:00 AM EST Office Visit [place] [phone] Faith Caba MD [facility] [place] [address] 11/09/2024 12:00 PM EST Appointment H[place] [phone] Scheduled Procedures Name Priority Associated Diagnoses Date/Ti me EGD, UPPER GI ENDOSCOPY (WRVU 2.09) Gastroesophageal reflux disease with esophagitis, unspecified whether hemorrhage 09/29/2024 4:30 PM EST documented as of this encounter Visit Diagnoses Not on filedocumented in this encounter Care Teams Optical Engineering Technician Relationship Specialty Start Date End Date Kennedi Shaver MD [facility] [address] [facility] [address] [place] [address] PCP - General 08/22/10 08/01/20 documented as of this encounter
--- OUTSIDE RECORDS SUMMARY | 2024-09-11 15:29 | XMS_ITS | Encounter Summary ---
Author Organization Formerly [place] [address] Care Team Providers Care Waffle Machine Operator Name Role Phone Kennedi Shaver MD Primary Care Provider [phone] Encounter Details Date Type Department Care Team (Latest Contact Info) Description 03/20/2017 9:55 AM EDT - 03/20/2017 11:59 PM EDT Hospital Encounter Hematology [place] [address] Neoplasm of prostate, distant metastasis staging category [...] 50 mg by mouth as needed. 06/14/2014 ibuprofen (ADVIL;MOTRIN) 200 mg Tablet Take 200 mg by mouth every 6 hours as needed for Pain. 06/29/2019 bicalutamide (CASODEX) 50 mg Tablet Take 1 tablet by mouth daily. Start taking prior to your injection 30 tablet 03/12/2017 05/02/2017 pantoprazole (PROTONIX) 20 mg Tablet, Delayed Release [...] 4:30 PM EST Hospital En[place] [address] Lizet Wilkes MD [facility] [place] [address] 09/29/2024 4:30 PM EST - 09/29/2024 5:00 PM EST Surgery [place] [phone] Lizet Wilkes MD [facility] [place] [address] EGD, UPPER GI ENDOSCOPY (WRVU 2.09) 11/09/2024 10:00 AM EST Laboratory Appointment Lab at [facility] Hematology Oncology [address] [place] [phone] 11/09/2024 11:00 AM EST Office Visit Hematology [place] [phone] Faith Caba MD [facility] [place] [address] 11/09/2024 12:00 PM EST Appointment Hematology [place] [address] Scheduled Procedures Name Priority Associated Diagnoses Date/Ti me EGD, UPPER GI ENDOSCOPY (WRVU 2.09) Gastroesophageal reflux disease with esophagitis, unspecified whether hemorrhage 09/29/2024 4:30 PM EST documented as of this encounter Procedures Procedure Name Priority Date/Time Associated Diagnosis Comments HEMOGRAM Routine 03/20/2017 10:07 AM EDT Neoplasm of prostate, distant metastasis staging category M1c: distant metastasis with or without metastasis to bone DIFFERENTIAL, AUTOMATED Routine 03/20/2017 10:07 AM EDT Neoplasm of prostate, distant metastasis staging category M1c: distant metastasis with or without metastasis to bone CBC (WITH DIFF) Routine 03/20/2017 10:07 AM EDT Neoplasm of prostate, distant metastasis staging category M1c: distant metastasis with or without metastasis to bone PSA (ULTRASENSITIVE) Routine 03/20/2017 10:07 AM EDT Neoplasm of prostate, distant metastasis staging category M1c: distant metastasis with or without metastasis to bone COMPREHENSIVE METABOLIC PANEL Routine 03/20/2017 10:07 AM EDT Neoplasm of prostate, distant metastasis staging category M1c: distant metastasis with or without metastasis to bone documented in this encounter Results * Differential, Automated (03/20/2017 10:07 AM EDT) Neutrophil % 64.8 % [facility] Neutrophil Absolute 4.12 1.70 - 6.10 x10(3)/[facility] Lymph % 19.7 % [facility] Lymphocytes Abs 1.2 0.9 - 3.2 x10(3)/[facility] Monocyte % 11.7 % [facility] Monocyte Abs 0.7 0.3 - 0.9 x10(3)/[facility] Eos % 3.0 % [facility] Eosinophils Abs 0.2 0.0 - 0.4 x10(3)/[facility] Basophil % 0.6 % [facility] Baso Absolute 0.0 0.0 - 0.1 x10(3)/[facility] Immature Gran % 0.20 % [facility] Comment: Immature granulocytes(IG's)percentage and absolute count will include metamyelocytes, myelocytes, and promyelocytes. Blood smears from CBCs yielding IG's will be scanned manually for concordance. If this scan disagrees with the automated IG or if promyelocytes are noted, a manual differential will be performed. Immature Gran Absolute 0.01 0.00 - 0.04 x10(3)/[facility] Blood specimen (specimen) 03/20/2017 10:07 AM EDT 03/20/2017 10:17 AM EDT Narrative Resulting Agency Comment Spec In Lab Faith Caba MD HEMATOLOGY ORDERABLE S Performing Organization Address City/State/[facility] Co de Phone Number [facility] [place] [address] * Hemogram (03/20/2017 10:07 AM EDT) White Blood Cell 6.4 4.0 - 9.5 x10(3)/[facility] Red Blood Cell 4.95 4.58 - 5.54 x10(6)/[facility] Hemoglobin 14.7 13.7 - 16.5 gm/dL [facility] Hematocrit 43.7 40.5 - 48.5 % [facility] Mean Cell Volume 88.3 82.9 - 93.1 fL [facility] Mean Cell Hemoglobin 29.7 27.5 - 32.1 pg [facility] Mean Cell Hemoglobin Concentration 33.6 32.0 - 35.7 gm/dL [facility] Platelet 220 145 - 357 x10(3)/[facility] RDW Standard Deviation 43.0 36.0 - 45.0 fL [facility] RDW coefficient of variation 13.4 11.4 - 13.8 % [facility] Mean Platelet Volume 9.9 7.6 - 12.9 fL [facility] NRBC% auto 0.0 % [facility] NRBC Absolute 0.000 0.000 - 0.000 x10(3)/mcL [facility] Blood specimen (specimen) 03/20/2017 10:07 AM EDT 03/20/2017 10:17 AM EDT Narrative Resulting Agency Comment Spec In Lab Faith Caba MD HEMATOLOGY ORDERABLE S [facility] [place] [address] * (ABNORMAL) Comprehensive metabolic panel (non-fasting) (03/20/2017 10:07 AM EDT) Glucose 108 65 - 199 mg/dL [facility] Comment:Diabetes: >=200 mg/d L plus symptoms Blood Urea Nitrogen 19 10 - 20 mg/dL [facility] Creatinine 0.97 0.80 - 1.50 mg/dL [facility] Comment: Please note that the pediatric reference intervals supplied above were not validated at [facility]. Results from pediatric patients should be interpreted in conjunction to the patient's age, height and muscle mass. Sodium 139 135 - 145 mmol/L [facility] Potassium 4.2 3.5 - 5.0 mmol/L [facility] Comment: Please note: ??Patients with WBC >100,000 may have falsely elevated Potassium levels. ??For accurate Potassium quantification in these patients send serum separator tube (gold top) for subsequent determinations. ??Contact the Clinical Chemistry Laboratory if there are any questions. Chloride 101 98 - 107 mmol/L [facility] Carbon Dioxide 22 22 - 31 mmol/L [facility] Anion Gap 16(H) 5 - 15 mmol/L [facility] Calcium 9.3 8.5 - 10.5 mg/dL [facility] Protein, Total 7.2 6.1 - 8.0 gm/dL [facility] Albumin 4.3 3.2 - 5.2 gm/dL [facility] Aspartate Aminotransferase 16 0 - 39 unit/L [facility] Alanine Aminotransferase 16 0 - 55 unit/L [facility] Alkaline Phosphatase 73 40 - 120 unit/L [facility] Bilirubin, Total 0.6 0.2 - 1.3 mg/dL [facility] Bilirubin, Direct 0.1 0.0 - 0.3 mg/dL [facility] Est Glomerular Filtration Rate >60 >=60 [facility] Comment: This estimated GFR (eGFR) [...] the following links into your internet browser. [email or web address] Blood specimen (specimen) 03/20/2017 10:07 AM EDT 03/20/2017 10:17 AM EDT Narrative Resulting Agency Comment Spec In Lab Faith Caba MD CHEMISTRY ORDERABLES [facility] [place] [address] * (ABNORMAL) PSA (03/20/2017 10:07 AM EDT) Prostate Specific Antigen (Ultrasensitiv e) 237.80(H) 0.00 - 4.00 ng/mL [facility] Blood specimen (specimen) 03/20/2017 10:07 AM EDT 03/20/2017 10:17 AM EDT Narrative Resulting Agency Comment Spec In Lab Faith Caba MD CHEMISTRY ORDERABLES [facility] [place] [address] documented in this encounter Visit Diagnoses Diagnosis Neoplasm of prostate, distant metastasis staging category M1c: distant metastasis with or without metastasis to bone Gastroesophageal reflux disease with esophagitis, unspecified whether hemorrhage documented in this encounter Care Teams Waffle Machine Operator Relationship Specialty Start Date End Date Kennedi Shaver MD [facility] [address] [address] [place] [address] PCP - General 08/22/10 08/01/20 documented as of this encounter
--- OUTSIDE RECORDS SUMMARY | 2024-09-11 15:29 | XMS_ITS | Encounter Summary ---
Author Organization [facility] [place] [address] Care Team Providers Care Coring Machine Operator Name Role Phone Kennedi Shaver MD Primary Care Provider [phone] Reason for Visit * Reason Onset Date Comments Medical Care Coordination 04/29/2017 Encounter Details Date Type Department Care Team (Late st Contact Info) Description 04/29/2017 Telephone Hematology [place] [address] Patricia James DRAPERY WORKER ROOM Medical Care Coordination Social History Tobacco Use Types Packs/Day Years [...] Telephone Encounter - Patricia James RN - 04/29/2017 9:00 AM EDT Per Randi Hankins, auto inspection specialist- $25 copay, [facility] Above reviewed w/ pt. Pt verbalized agreement w/ faxing script to [facility] He is aware to call clinic when he receives medication or if cost prohibitive. Script faxed to [facility] ([phone]). documented in this encounter Plan of Treatment Upcoming Encounters Date Type Department Care Team (Latest Contact Info) Description 09/29/2024 4:30 PM EST Hospital Encounter Gastroenterology at [place] [phone] Lizet Wilkes MD [facility] [place] [address] 09/29/2024 4:30 PM EST - 09/29/2024 5:00 PM EST Surgery Gastroenterology at [place] [phone] Lizet Wilkes MD [facility] [address] EGD, UPPER GI ENDOSCOPY (WRVU 2.09) 11/09/2024 10:00 AM EST Laboratory Appointment Lab at [facility] Hematology Oncology [address] [place], [place] [phone] 11/09/2024 11:00 AM EST Office Visit Hematology and Oncology at [place] [phone] Faith Caba MD [facility] [place] [address] 11/09/2024 12:00 PM EST Appointment Hematology and Oncology at [place] [phone] Scheduled Procedures Name Priority Associated Diagnoses Date/Ti me EGD, UPPER GI ENDOSCOPY (WRVU 2.09) Gastroesophageal reflux disease with esophagitis, unspecified whether hemorrhage 09/29/2024 4:30 PM EST documented as of this encounter Visit Diagnoses Not on filedocumented in this encounter Care Teams Coring Machine Operator Relationship Specialty Start Date End Date Kennedi Shaver MD [address] [facility] [address] [place] [address] PCP - General 08/22/10 08/01/20 documented as of this encounter
--- OUTSIDE RECORDS SUMMARY | 2024-09-11 15:29 | XMS_ITS | Encounter Summary ---
Author Organization [facility] Address [facility] [place] [address] Care Team Providers Care Ship Rigger Name Role Phone Kennedi Shaver MD Primary Care Provider [phone] Encounter Details Date Type Department Care Team (Late st Contact Info) Description 03/04/2017 External [place] [phone] Provider, Scanning Social History Tobacco Use Types Packs/Day Years [...] 4:30 PM EST Hospital Encounter [place] [phone] Lizet Wilkes MD [facility] [place] [address] 09/29/2024 4:30 PM EST - 09/29/2024 5:00 PM EST Surgery Gastroenterology at [place] [phone] Lizet Wilkes MD [facility] [place] [address] EGD, UPPER GI ENDOSCOPY (WRVU 2.09) 11/09/2024 10:00 AM EST Laboratory Appointment Lab at [facility] Hematology Oncology [address] [place] [phone] 11/09/2024 11:00 AM EST Office Visit Hematology [place] [address] Faith Caba MD [facility] [place] [address] 11/09/2024 12:00 PM EST Appointment Hematology [place] [phone] Scheduled Procedures Name Priority Associated Diagnoses Date/Ti me EGD, UPPER GI ENDOSCOPY (WRVU 2.09) Gastroesophageal reflux disease with esophagitis, unspecified whether hemorrhage 09/29/2024 4:30 PM EST documented as of this encounter Procedures Procedure Name Priority Date/Time Associated Diagnosis Comments CYTOLOGY SCAN Routine 03/04/2017 documented in this encounter Results * Scan Doc: Cytology (03/04/2017) Faith Caba MD MEDIA MGR SCAN EXT O RDR/RSLT documented in this encounter Visit Diagnoses Not on filedocumented in this encounter Care Teams Ship Rigger Relationship Specialty Start Date End Date Kennedi Shaver MD [facility] [address] [facility] [address] [place] [address] PCP - General 08/22/10 08/01/20 documented as of this encounter
--- OUTSIDE RECORDS SUMMARY | 2024-09-11 15:29 | XMS_ITS | Encounter Summary ---
[place] [address] Care Team Providers Care Medical Records Clerk Name Role Phone Kennedi Shaver MD Primary Care Provider [phone] Reason for Visit * Reason Onset Date Comments Chemotherapy 05/02/2017 Encounter Details Date Type Department Care Team (Late st Contact Info) Description 05/02/2017 Telephone Hematology [place] [phone] Irma Villegas RN Chemotherapy Social History Tobacco Use Types Packs/Day Years [...] Telephone Encounter - Irma Han RN - 05/02/2017 12:58 PM EDT Message received from secretary specialist: Patient just received a medication and needs advice on when and how to start. ??John, wondering if he should overlap with previous medication or stop the other all together (Casodex). ??[phone] Oral Chemotherapy Follow-up Note 05/02/2017 Murillo Jessica Raf, 1945 Assessment of self-administration of oral chemotherapy is performed via phone call with patient. The patient: ?? filled the prescription at [facility] and will start to take this medication on 05/03/17 (date). ?? read back the name and strength of the oral chemotherapy from the label, including the instructions for use as follows: Zytega 500 mg take 2 tabs PO every day. Patient educated on taking prednisone twice daily with Zytega. ?? was able to repeat directions for use in his/her own words and demonstrated understanding of theregimen, including safe handling of oral chemotherapy and its side effects. Patient was instructed to stop taking the Casodex and begin the Zytega tomorrow 05/03/17. Patient asked if he should continue taking the dutasteride/tamsulosin hcl or if he should stop taking it? Will discuss with provider and return call. ?? does not require further assistance in order to comply with oral chemotherapy. ?? was reminded to call the oncology clinic with any concerns or questions 24 hours a day / 7 days a week and contact information was reviewed. Assessment/Plan: Per Dr. Caba : patient should continue taking the dutasteride/tamsulosin hcl. Called placed back to patient and all information above discussed. Pt in agreement with plan and knows to call clinic with any concerns and/or questions. documented in this encounter Plan of Treatment Upcoming Encounters Date Type Department Care Team (Latest Contact Info) Description 09/29/2024 4:30 PM EST Hospital Encounter [place] [address] Lizet Wilkes MD [facility] [place] [address] 09/29/2024 4:30 PM EST - 09/29/2024 5:00 PM EST Surgery [place] [address] Lizet Wilkes MD [facility] [place] [address] EGD, UPPER GI ENDOSCOPY (WRVU 2.09) 11/09/2024 10:00 AM EST Laboratory Appointment Lab at [facility] [place]ology Oncology [address] [place] [phone] 11/09/2024 11:00 AM EST Office Visit Hematology and Oncology at [place] [phone] Faith Caba MD [facility] DR HEMATOLOGY [place] [address] 11/09/2024 12:00 PM EST Appointment Hematology and Oncology at [place] [phone] Scheduled Procedures Name Priority Associated Diagnoses Date/Ti me EGD, UPPER GI ENDOSCOPY (WRVU 2.09) Gastroesophageal reflux disease with esophagitis, unspecified whether hemorrhage 09/29/2024 4:30 PM EST documented as of this encounter Visit Diagnoses Not on filedocumented in this encounter Care Teams Medical Records Clerk Relationship Specialty Start Date End Date Kennedi Shaver MD [facility] [address] [place] [address] PCP - General 08/22/10 08/01/20 documented as of this encounter
--- OUTSIDE RECORDS SUMMARY | 2024-09-11 15:29 | XMS_ITS | Encounter Summary ---
Author Organization [facility] [place] [address] Care Team Providers Care Entry Level Assistant Manager Name Role Phone Kennedi Shaver MD Primary Care Provider [phone] Reason for Visit * Reason Onset Date Comments Prior Authorization 04/26/2017 zytiga 250mg 4 tabs QD (w/ prednisone) Encounter Details Date Type Department Care Team (Late st Contact Info) Description 04/26/2017 Telephone Hematology [place] [phone] Deborah Hankins Prior Authorization (zytiga 250mg 4 tabs QD (w/ prednisone) ) Social History Tobacco Use Types Packs/Day Years [...] Miscellaneous Notes * Telephone Encounter - Deborah Hankins - 04/26/2017 8:40 AM EDT Prior Auth for Zytiga ID# [id number] [employer] Rationale: zytiga 250mg 4 tabs QD (w/ prednisone) Dx prostate cancer C61 Still is hormone sensitive and on casodex Per MD Note- He is on palliative ADT ad so far has a great response based on PSA and clinical sx. We spent the majority of the visit today reviewing his reponse to date and the role of adjunct therapy with chemotherapy as well as recently released data and approval for upfront abiraterone Spoke w/ [place] LEE valid through: : Scanned into eDH Copay: $ 25.00 Pharmacy requirements: [facility] documented in this encounter Plan of Treatment Upcoming Encounters Date Type Department Care Team (Latest Contact Info) Description 09/29/2024 4:30 PM EST Hospital Encounter [place] [address] Lizet Wilkes MD [facility] [place] [address] 09/29/2024 4:30 PM EST - 09/29/2024 5:00 PM EST Surgery [place] [phone] Lizet Wilkes MD [facility] [place] [address] EGD, UPPER GI ENDOSCOPY (WRVU 2.09) 11/09/2024 10:00 AM EST Laboratory Appointment Lab [place] [facility] [place] On[place] [address] [place] [phone] 11/09/2024 11:00 AM EST Office Visit Hematology [place] [phone] Faith Caba MD [facility] [place] [address] 11/09/2024 12:00 PM EST Appointment Hematology [place] [address] Scheduled Procedures Name Priority Associated Diagnoses Date/Ti me EGD, UPPER GI ENDOSCOPY (WRVU 2.09) Gastroesophageal reflux disease with esophagitis, unspecified whether hemorrhage 09/29/2024 4:30 PM EST documented as of this encounter Visit Diagnoses Not on filedocumented in this encounter Care Teams Entry Level Assistant Manager Relationship Specialty Start Date End Date Kennedi Shaver MD [facility] [address] [place] [address] PCP - General 08/22/10 08/01/20 documented as of this encounter
--- OUTSIDE RECORDS SUMMARY | 2024-09-11 15:29 | XMS_ITS | Encounter Summary ---
Author Organization [facility] Address [facility] [place] [address] Care Team Providers Care Parts Specialist Name Role Phone Kennedi Shaver MD Primary Care Provider [phone] Encounter Details Date Type Department Care Team (Late st Contact Info) Description 04/26/2017 Orders Only Hematology [place] [phone] Cassy Velazquez, RN Social History Tobacco Use Types Packs/Day [...] Info) Description 09/29/2024 4:30 PM [facility] Hospital En[place] [phone] Lizet Wilkes MD [facility] [place] [address] 09/29/2024 4:30 PM EST - 09/29/2024 5:00 PM EST Surgery Gastroenterology at [place] [phone] Lizet Wilkes MD [facility] [place] [address] EGD, UPPER GI ENDOSCOPY (WRVU 2.09) 11/09/2024 10:00 AM EST Laboratory Appointment Lab at [facility] Hematology Oncology [address] [place] [phone] 11/09/2024 11:00 AM EST Office Visit Hematology and Oncology at [place] [phone] Faith Caba MD [facility] DR HEMATOLOG[place] [address] 11/09/2024 12:00 PM EST Appointment Hematology [place] [address] Scheduled Procedures Name Priority Associated Diagnoses Date/Ti me EGD, UPPER GI ENDOSCOPY (WRVU 2.09) Gastroesophageal reflux disease with esophagitis, unspecified whether hemorrhage 09/29/2024 4:30 PM EST documented as of this encounter Visit Diagnoses Not on filedocumented in this encounter Care Teams Parts Specialist Relationship Specialty Start Date End Date Kennedi Shaver MD [facility] [address] [place] [address] PCP - General 08/22/10 08/01/20 documented as of this encounter
--- OUTSIDE RECORDS SUMMARY | 2024-09-11 15:29 | XMS_ITS | Encounter Summary ---
Author Organization [facility] [place] [address] Care Team Providers Care Yard Coupler Name Role Phone Kennedi Shaver MD Primary Care Provider [phone] Reason for Referral * Diagnostic Test (Routine) - Closed Specialty Diagnoses / Procedures Referred By Blaine peralta Referred To Contact Radiology Diagnoses Mass in neck Procedures MRI Neck wwo Contrast MRI Soft Tissue Neck w Contrast (Generic) Sujey Ramos APRN [facility] [address] [place] [address] Referral ID Status Reason Start Date Expiration Date V isits Requested Visits Authorized [id number] Closed Specialty Service Requested 02/06/2017 02/06/2018 1 1 Encounter Details Date Type Department Care Team (Late st Contact Info) Description 02/06/2017 Orders Only [place] [phone] Sujey Ramos APRN [facility] [place] [address] Mass in neck Social History Tobacco Use Types Packs/Day Years [...] 4:30 PM EST Hospital Encounter Gastroenterology at [address] Lizet Wilkes MD [facility] [place] [address] 09/29/2024 4:30 PM EST - 09/29/2024 5:00 PM EST Surgery Gastroenterology at [place] [phone] Lizet Wilkes MD [facility] [place] [address] EGD, UPPER GI ENDOSCOPY (WRVU 2.09) 11/09/2024 10:00 AM EST Laboratory Appointment Lab at [facility] Hematology Oncology [address] [place], [place] [phone] 11/09/2024 11:00 AM EST Office Visit Hematology and Oncology at [place] [phone] Faith Caba MD [facility] [place] [address] 11/09/2024 12:00 PM EST Appointment Hematology and Oncology at [place] [phone] Scheduled Procedures Name Priority Associated Diagnoses Date/Ti me EGD, UPPER GI ENDOSCOPY (WRVU 2.09) Gastroesophageal reflux disease with esophagitis, unspecified whether hemorrhage 09/29/2024 4:30 PM EST documented as of this encounter Results * MRI Neck wwo Contrast (02/08/2017 8:14 PM EDT) Anatomical Region Laterality Modality Neck Magnetic Resonan ce Impressions 02/09/2017 1:44 PM EDT Left neck adenopathy. Differential considerations include occult lung or head and neck primary malignancy with metastatic disease or lymphoma. Tissue sampling and further workup recommended. Narrative 02/09/2017 1:44 PM EDT EXAMINATION: MRI NECK WWO CONTRAST CLINICAL HISTORY: mass on neck with US showing abnormal nodes,further characterize mass and nodes TECHNIQUE: MRI acquired of the neck before and after administration of 9 mL of Gadavist. COMPARISON: Ultrasound 02/05/2017 FINDINGS: Left neck level III, level IV, and level V lymphadenopathy with the largest left level 4 lymph node measuring 3.6 x 2.8 cm in the axial plane, and displaces the jugular vein anteriorly and narrows it.. The fat plane with the sternocleidomastoid anteriorly is relatively preserved. No contralateral adenopathy. Visualized portions of the aerodigestive tract are normal. The parotid glands, submandibular glands, and thyroid gland are normal. Partially imaged changes of cervical spondylosis with advanced left-sided facet arthropathy at C2-3 and C3-4 with associated facet enhancement. Procedure Note Simran Yao MD - 02/09/2017 EXAMINATION: MRI NECK WWO CONTRAST CLINICAL HISTORY: mass on neck with US showing abnormal nodes,further characterize mass and nodes TECHNIQUE: MRI acquired of the neck before and after administration of 9mL of Gadavist. COMPARISON: Ultrasound 02/05/2017 FINDINGS: Left neck level III, level IV, and level V lymphadenopathy with thelargest left level 4 lymph node measuring 3.6 x 2.8 cm in the axial plane, anddisplaces the jugular vein anteriorly and narrows it.. The fat plane with the sternocleidomastoid anteriorly is relatively preserved. No contralateral adenopathy. Visualized portions of the aerodigestive tract are normal. The parotid glands, submandibular glands, and thyroid gland are normal. Partially imaged changes of cervical spondylosis with advanced left-sidedfacet arthropathy at C2-3 and C3-4 with associated facet enhancement. IMPRESSION Left neck adenopathy. Differential considerations include occult lung orhead and neck primary malignancy with metastatic disease or lymphoma. Tissuesampling and further workup recommended. Sujey Ramos APRN IMG MRI ORDERABL ES * Creatinine (02/08/2017 3:27 PM EDT) Creatinine 1.06 0.80 - 1.50 mg/dL [facility] Comment: Please note that the pediatric reference intervals supplied above were not validated at [facility]. Results from pediatric patients should be interpreted in conjunction to the patient's age, height and muscle mass. Est Glomerular Filtration Rate >60 >=60 [facility] Comment: This estimated GFR [...] the following links into your internet browser. [email or web address]/[email or web address] Blood specimen (specimen) 02/08/2017 3:27 PM EDT 02/08/2017 3:39 PM EDT Narrative Resulting Agency Comment Spec In Lab Sujey Ramos APRN CHEMISTRY ORDERA BLES [facility] [place] [address] documented in this encounter Visit Diagnoses Diagnosis Mass in neck Swelling, mass, or lump in head and neck Mass in neck Swelling, mass, or lump in head and neck Gastroesophageal reflux disease with esophagitis, unspecified whether hemorrhage documented in this encounter Care Teams Yard Coupler Relationship Specialty Start Date End Date Kennedi Shaver MD [address] [place] [address] PCP - General 08/22/10 08/01/20 documented as of this encounter
--- OUTSIDE RECORDS SUMMARY | 2024-09-11 15:29 | XMS_ITS | Encounter Summary ---
Author Organization [place] [address] Care Team Providers Care Contact Center Associate Name Role Phone Kennedi Shaver MD Primary Care Provider [phone] Reason for Visit * Reason Onset Date Comments Questions 04/30/2017 Encounter Details Date Type Department Care Team (Late st Contact Info) Description 04/30/2017 Telephone Hematology [place] [phone] Patricia James CORE BAKER ROOM Questions Social History Tobacco Use Types [...] Telephone Encounter - Patricia James RN - 04/30/2017 9:01 AM EDT Message received from medical secretary: Patient called he has some questions about clarifying a pharmacy recommendation you had made him. He can be reached at [phone]. Spoke w/ pt who stated that he wanted to clarify payment through the mail order pharmacy, pharmacy has reached out to him to schedule delivery but he has not yet confirmed the cost. Reviewed that pharmacy likely would require a credit card for payment however pt should only pay ifhe can afford the cost; if medication is cost prohibitive he should call clinic. Pt knows to call w/any concerns/questions and when he receives the medication. documented in this encounter Plan of Treatment Upcoming Encounters Date Type Department Care Team (Latest Contact Info) Description 09/29/2024 4:30 PM EST Hospital Encounter Gastroenterology at [place] [phone] Lizet Wilkes MD [facility] [place] [address] 09/29/2024 4:30 PM EST - 09/29/2024 5:00 PM EST Surgery [place] [phone] Lizet Wilkes MD [facility] [place] [address] EGD, UPPER GI ENDOSCOPY (WRVU 2.09) 11/09/2024 10:00 AM EST Laboratory Appointment Lab at [facility] Hematology Oncology [address] [place] [phone] 11/09/2024 11:00 AM EST Office Visit Hematology [place] [phone] Faith Caba MD [facility] DR HEMATOLOGY [place] [address] 11/09/2024 12:00 PM EST Appointment Hematology [place] [phone] Scheduled Procedures Name Priority Associated Diagnoses Date/Ti me EGD, UPPER GI ENDOSCOPY (WRVU 2.09) Gastroesophageal reflux disease with esophagitis, unspecified whether hemorrhage 09/29/2024 4:30 PM EST documented as of this encounter Visit Diagnoses Not on filedocumented in this encounter Care Teams Contact Center Associate Relationship Specialty Start Date End Date Kennedi Shaver MD [address] [place] [address] PCP - General 08/22/10 08/01/20 documented as of this encounter
--- OUTSIDE RECORDS SUMMARY | 2024-09-11 15:29 | XMS_ITS | Encounter Summary ---
Author Organization [facility] [place] [address] Care Team Providers Care Bench Jeweler Name Role Phone Kennedi Shaver MD Primary Care Provider [phone] Encounter Details Date Type Department Care Team (Late st Contact Info) Description 02/06/2017 Telephone [place] [phone] Anila Dupree Social History Tobacco Use Types Packs/Day Years [...] encounter Miscellaneous Notes * Telephone Encounter - Anila Dupree - 02/06/2017 2:56 PM EDT RADIOLOGY SAFETY QUESTIONS MRI Scheduling Questions: Patient's Weight: 200 Is the patient claustrophobic? (Yes/No) NO Has patient ever required sedation for an MRI? (Yes/No) NO Oral IV Anesthesia Does the patient have difficulty breathing while lying flat? (Yes/No) NO Does the patient have mobility concerns? (Yes/No) NO Does the patient have a Mediport? (Yes/No) NO Is patient coming from a Nursing Home Facility? (Yes/No) NO documented in this encounter Plan of Treatment Upcoming Encounters Date Type Department Care Team (Latest Contact Info) Description 09/29/2024 4:30 PM EST Hospital Encounter Gastroenterology at [place] [phone] Lizet Wilkes MD [facility] [place] [address] 09/29/2024 4:30 PM EST - 09/29/2024 5:00 PM EST [place] [phone] Lizet Wilkes MD [facility] [address] EGD, UPPER GI ENDOSCOPY (WRVU 2.09) 11/09/2024 10:00 AM EST Laboratory Appointment Lab at [facility] [place] Oncology [address] [place], [place] [phone] 11/09/2024 11:00 AM EST Office Visit Hematology and Oncology at [place] [phone] Faith Caba MD [facility] DR [place] [address] 11/09/2024 12:00 PM EST Appointment Hematology and Oncology at [place] [phone] Scheduled Procedures Name Priority Associated Diagnoses Date/Ti nc EGD, UPPER GI ENDOSCOPY (WRVU 2.09) Gastroesophageal reflux disease with esophagitis, unspecified whether hemorrhage 09/29/2024 4:30 PM EST documented as of this encounter Visit Diagnoses Not on filedocumented in this encounter Care Teams Bench Jeweler Relationship Specialty Start Date End Date Kennedi Shaver MD [address] [facility] [address] [place] [address] PCP - General 08/22/10 08/01/20 documented as of this encounter
--- OUTSIDE RECORDS SUMMARY | 2024-09-11 15:29 | XMS_ITS | Encounter Summary ---
Author Organization [facility] [place] [address] Care Team Providers Care Shift Lab Technician Name Role Phone Kennedi Shaver MD Primary Care Provider [phone] Encounter Details Date Type Department Care Team (Latest Contact Info) Description 03/04/2017 3:07 PM EDT - 03/04/2017 11:59 PM EDT Hospital [place] [address] Discharge Disposition: Home Social History Tobacco Use [...] 50 mg by mouth as needed. 06/14/2014 pantoprazole (PROTONIX) 20 mg Tablet, Delayed Release [...] 4:30 PM EST Hospital Encounter Gastroenterology at [place] [phone] Lizet Wilkes MD [facility] [place] [address] 09/29/2024 4:30 PM EST - 09/29/2024 5:00 PM EST [place] [phone] Lizet Wilkes MD [facility] [place] [address] EGD, UPPER GI ENDOSCOPY (WRVU 2.09) 11/09/2024 10:00 AM EST Laboratory Appointment Lab at [facility] [place]ematology Oncology [address] [place] [phone] 11/09/2024 11:00 AM EST Office Visit Hematology and Oncology at [place] [phone] Faith Caba MD [facility] [place] [address] 11/09/2024 12:00 PM EST Appointment Hematology and Oncology at [place] [phone] Scheduled Procedures Name Priority Associated Diagnoses Date/Ti me EGD, UPPER GI ENDOSCOPY (WRVU 2.09) Gastroesophageal reflux disease with esophagitis, unspecified whether hemorrhage 09/29/2024 4:30 PM EST documented as of this encounter Procedures Procedure Name Priority Date/Time Associated Diagnosis Comments NON-OFFICE COMMUNICATION PROFESSOR FINAL REPORT Routine 03/04/2017 4:15 PM EDT documented in this encounter Results * Non-Residential Manager Final Report (03/04/2017 4:15 PM EDT) Non-Residential Manager Final Report [id number] ?Location: OPW The signing pathologist has (i) examined the relevant preparation(s) for the specimen(s) and (ii) rendered or confirmed the diagnosis(es). . ? Non-Residential Manager Final DIAGNOSIS See Discussion Electronically signed by: ??Smione MOON, Da Verified: ??03/06/2017 ?Pathologist DISCUSSION Neck, left, zone V lymph node (FNA): Clusters of epithelioid cells with NKX 3.1 immunoreactivity (see note). Note: In the appropriate clinical setting (i.e. elevated PSA by report), the findings raise the possibility of metastatic ?? prostatic ??adenocarcinoma, however; careful clinical and radiologic correlation is required. Per report the immunostain for TTF1 is negative. Dr. Quinonez has kindly reviewed the case and concurs with the above diagnosis. CLINICAL INFORMATION CONSULTATION CASE Source: Neck, left, zone V lymph node (FNA) Clinical History: ??Left neck Zone V LAD; posterior triangle LAD; subclavicular LAD; elevated PSA but no pathologic diagnosis of prostate cancer. Received 5 slide(s) labeled [id number] Received 0 block(s). Specimen collection date: ??02/20/2017. For the full text of the [facility] ([facility]) report(s), please refer to [facility]. [facility] Tracking #: ??[id number] Report to: [facility] Surgical Pathology Department [facility], [facility], 2nd Floor [address] [place] [address] ??[id number] [facility] 03/04/2017 4:15 PM EDT Faith Caba MD PATHOLOGY/CYTOLOGY O RDERABLES [facility] [place] [address] documented in this encounter Visit Diagnoses Not on filedocumented in this encounter Care Teams Shift Lab Technician Relationship Specialty Start Date End Date Kennedi Shaver MD [address] [place] [address] PCP - General 08/22/10 08/01/20 documented as of this encounter
--- OUTSIDE RECORDS SUMMARY | 2024-09-11 15:29 | XMS_ITS | Encounter Summary ---
Author Organization [facility] [place] [address] Care Team Providers Care Business Operations Specialist Name Role Phone Kennedi Shaver MD Primary Care Provider [phone] Encounter Details Date Type Department Care Team (Latest Contact Info) Description 04/23/2017 9:31 AM EDT - 04/23/2017 11:59 PM EDT Hospital Encounter Hematology [place] [phone] Neoplasm of prostate, distant metastasis staging category [...] mg by mouth daily. 60 tablet 04/26/2017 04/26/2017 abiraterone 500 mg Tablet Take 1,000 mg by mouth daily. 60 tablet 04/24/2017 04/26/2017 ibuprofen (ADVIL;MOTRIN) 200 mg Tablet Take 200 [...] as of this encounter Progress Notes * Deysi Brennan RN - 04/23/2017 11:43 AM EDT Patient Name: Chidi Carbone Patient Age: 71 y.o. Birthdate: 1945 Admit date: 04/23/2017 Attending Physician: No att. providers found Access visit. See MAR and/or flowsheet. Lupron injection administered as ordered, tolerated well. documented in this encounter Plan of Treatment Upcoming Encounters Date Type Department Care Team (Latest Contact Info) Description 09/29/2024 4:30 PM EST Hospital Encounter [place] [phone] Lizet Wilkes MD [facility] [place] [address] 09/29/2024 4:30 PM EST - 09/29/2024 5:00 PM EST Surgery [place] [phone] Lizet Wilkes MD [facility] [place] [address] EGD, UPPER GI ENDOSCOPY (WRVU 2.09) 11/09/2024 10:00 AM EST Laboratory Appointment Lab at [facility] Hematology Oncology [address] [place] [phone] 11/09/2024 11:00 AM EST Office Visit Hematology and Oncology at [place] [phone] Faith Caba MD [facility] DR [place] [address] 11/09/2024 12:00 PM EST Appointment Hematology and Oncology at [place] [phone] Scheduled Procedures Name Priority Associated Diagnoses Date/Ti [...] 22.5 mg, Intramuscular, ONCE, 1 dose, On Sat04/23/17 at 1145, Routine Given 04/23/2017 11:38 AM EDT 22.5 mg Right Gluteal documented in this encounter Care Teams Business Operations Specialist Relationship Specialty Start Date End Date Kennedi Shaver MD [facility] [address] [place] [address] PCP - General 08/22/10 08/01/20 documented as of this encounter
--- OUTSIDE RECORDS SUMMARY | 2024-09-11 15:29 | XMS_ITS | Encounter Summary ---
Author Organization [facility] [place] [address] Care Team Providers Care Newspaper Subscription Solicitor Name Role Phone Kennedi Shaver MD Primary Care Provider [phone] Reason for Visit * Reason Onset Date Comments Follow-up 04/04/2017 Encounter Details Date Type Department Care Team (Late st Contact Info) Description 04/04/2017 Telephone Hematology [place] [phone] Patricia James RN INFUSION ROOM Follow-up Social History Tobacco Use Types [...] Telephone Encounter - Patricia James RN - 04/04/2017 8:07 AM EDT Message received from Cassy Delarosa RN: Can you f/u with this patient at the end of next week to find out if he saw PCP? Casodex on hold d/t dizziness. ??Asked him to f/u with PCP to assess for cardiac reasons for dizziness. ??See note for details. Spoke w/ pt who stated that he was saw PCP on Saturday, hasn't had any add'tl dizziness since stopping the casodex. Has made his urine stream a little bit more difficult however has noticed that the tumor in his neck has shrunk. The PCP felt that there was no underlying heart condition since he had been tested last summer and no issues were found. Plan per Faith Caba MD: Retrial casodex, hold if dizziness recurs and notify clinic Pt in agreement with plan and knows to call clinic with any concerns and/or questions. documented in this encounter Plan of Treatment Upcoming Encounters Date Type Department Care Team (Latest Contact Info) Description 09/29/2024 4:30 PM EST Hospital Encounter Gastroenterology at [place] [phone] Lizet Wilkes MD [facility] [place] [address] 09/29/2024 4:30 PM EST - 09/29/2024 5:00 PM EST [place] [phone] Lizet Wilkes MD [facility] [place] [address] EGD, UPPER GI ENDOSCOPY (WRVU 2.09) 11/09/2024 10:00 AM EST Laboratory Appointment Lab at [facility] Hematology Oncology [address] [place] [phone] 11/09/2024 11:00 AM EST Office Visit Hematology and Oncology at [place] [phone] Faith Caba MD [facility] DR [place] [address] 11/09/2024 12:00 PM EST Appointment Hematology [place] [phone] Scheduled Procedures Name Priority Associated Diagnoses Date/Ti me EGD, UPPER GI ENDOSCOPY (WRVU 2.09) Gastroesophageal reflux disease with esophagitis, unspecified whether hemorrhage 09/29/2024 4:30 PM EST documented as of this encounter Visit Diagnoses Not on filedocumented in this encounter Care Teams Newspaper Subscription Solicitor Relationship Specialty Start Date End Date Kennedi Shaver MD [facility] [address] [place] [address] PCP - General 08/22/10 08/01/20 documented as of this encounter
--- OUTSIDE RECORDS SUMMARY | 2024-09-11 15:29 | XMS_ITS | Encounter Summary ---
[place] [address] Care Team Providers Care Admissions Manager Rn Name Role Phone Kennedi Shaver MD Primary Care Provider [phone] Reason for Visit * Diagnostic Test (Routine) - Closed Specialty Diagnoses / Procedures Referred By Blaine peralta Referred To Contact Radiology Diagnoses Prostate cancer Procedures NM Whole Body Bone Scan Kennedi Shaver MD [address] [place] [address] [place] [address] Referral ID Status Reason Start Date Expiration Date V isits Requested Visits Authorized [id number] Closed Specialty Service Requested 02/21/2017 02/21/2018 1 1 Encounter Details Date Type Department Care Team (Latest Contact Info) Description 02/26/2017 1:00 PM EDT - 02/26/2017 11:59 PM EDT Hospital Encounter [place] [address] Kennedi Shaver MD [address] [place] [address] Discharge Disposition: Home Social History Tobacco Use [...] EST Hospital Encounter [place] [address] Lizet Wilkes MD [facility] [place] [place] [address] 09/29/2024 4:30 PM EST - 09/29/2024 5:00 PM EST Surgery [place] [address] Lizet Wilkes MD [facility] [place] [address] EGD, UPPER GI ENDOSCOPY (WRVU 2.09) 11/09/2024 10:00 AM EST Laboratory Appointment Lab at [facility] Hematology Oncology [address] [place] [phone] 11/09/2024 11:00 AM EST Office Visit Hematology [place] [address] Faith Caba MD [facility] [place] [address] 11/09/2024 12:00 PM EST Appointment Hematology [place] [address] Scheduled Procedures Name Priority Associated Diagnoses Date/Ti me EGD, UPPER GI ENDOSCOPY (WRVU 2.09) Gastroesophageal reflux disease with esophagitis, unspecified whether hemorrhage 09/29/2024 4:30 PM EST documented as of this encounter Procedures Procedure Name Priority Date/Time Associated Diagnosis Comments NM BONE SCAN WHOLE BODY Routine 02/26/2017 2:38 PM EDT Prostate cancer documented in this encounter Results * UT Whole Body Bone Scan (02/26/2017 2:38 PM EDT) Anatomical Region Laterality Modality Nuclear Medicine Impressions 02/26/2017 3:52 PM EDT There are two foci of abnormal activity raising concern for metastases. These are located in the right frontal bone and in the distal shaft of the right femur. Narrative 02/26/2017 3:52 PM EDT EXAMINATION: UT WHOLE BODY BONE SCAN CLINICAL HISTORY: Prostate cancer, metastatic. Diffuse JENNIFER, abnormal prostate on CT scan, elevated PSA, and concerns for sclerotic lesions on recent CT scan, tissure confirmation pending via neck mass biopsy TECHNIQUE: Three hours following the intravenous administration of 25 mCi of technetium-99m MDP, images of the entire skeleton were obtained. Tomographic imaging of the skull was then performed with images reconstructed in the axial, sagittal and coronal planes. A low-dose CT scan was acquired for anatomic localization and attenuation correction. Comparison: CT scan February 19, 2017 FINDINGS: There is a focus of intensely increased activity in the superolateral aspect of the right orbit. The CT scan demonstrates mild cortical irregularity in this region in the right frontal bone. There is a focus of increased activity in the distal aspect of the shaft of the right femur. There is a focus of increased activity in the anterior aspect of the right seventh rib most likely traumatic in origin. Increased activity in both wrists, both knees and the cervical spine are all typical of degenerative change. Procedure Note German Hoffman MD - 02/26/2017 EXAMINATION: NM WHOLE BODY BONE SCAN CLINICAL HISTORY: Prostate cancer, metastatic. Diffuse JENNIFER, abnormalprostate on CT scan, elevated PSA, and concerns for sclerotic lesions on recent CTscan, tissure confirmation pending via neck mass biopsy TECHNIQUE: Three hours following the intravenous administration of 25 mCiof technetium-99m MDP, images of the entire skeleton were obtained. Tomographic imaging of the skull was then performed with imagesreconstructed in the axial, sagittal and coronal planes. A low-dose CT scan was acquiredfor anatomic localization and attenuation correction. Comparison: CT scan February 19, 2017 FINDINGS: There is a focus of intensely increased activity in the superolateralaspect of the right orbit. The CT scan demonstrates mild cortical irregularity inthis region in the right frontal bone. There is a focus of increased activity in the distal aspect of the shaftof the right femur. There is a focus of increased activity in the anterior aspect of theright seventh rib most likely traumatic in origin. Increased activity in both wrists, both knees and the cervical spine areall typical of degenerative change. IMPRESSION There are two foci of abnormal activity raising concern for metastases.These are located in the right frontal bone and in the distal shaft of theright femur. Kennedi Shaver MD [facility] ORDERABLES documented in this encounter Visit Diagnoses Not on filedocumented in this encounter Care Teams Admissions Manager Rn Relationship Specialty Start Date End Date Kennedi Shaver MD [address] [place] [address] PCP - General 08/22/10 08/01/20 documented as of this encounter
--- OUTSIDE RECORDS SUMMARY | 2024-09-11 15:29 | XMS_ITS | Encounter Summary ---
Author Organization [facility] [place] [address] Care Team Providers Care Projection Printer Name Role Phone Kennedi Shaver MD Primary Care Provider [phone] Encounter Details Date Type Department Care Team (Late st Contact Info) Description 02/08/2017 3:00 PM EDT Laboratory Appointment Lab [address] [place] [address] Mass in neck Social History Tobacco Use [...] 4:30 PM EST Hospital Encounter [place] [address] Lizet Wilkes MD [facility] [place] [address] 09/29/2024 4:30 PM EST - 09/29/2024 5:00 PM EST Surgery Gastroenterology at [place] [phone] Lizet Wilkes MD [facility] [place] [address] EGD, UPPER GI ENDOSCOPY (WRVU 2.09) 11/09/2024 10:00 AM EST Laboratory Appointment Lab at [facility] Hematology Oncology [address] [place] [phone] 11/09/2024 11:00 AM EST Office Visit Hematology [place] [address] Faith Caba MD [facility] DR [place] [address] 11/09/2024 12:00 PM EST Appointment Hematology [place] [phone] Scheduled Procedures Name Priority Associated Diagnoses Date/Ti me EGD, UPPER GI ENDOSCOPY (WRVU 2.09) Gastroesophageal reflux disease with esophagitis, unspecified whether hemorrhage 09/29/2024 4:30 PM EST documented as of this encounter Procedures Procedure Name Priority Date/Time Associated Diagnosis Comments CREATININE Routine 02/08/2017 3:27 PM EDT Mass in neck documented in this encounter Results * Creatinine (02/08/2017 3:27 PM EDT) Creatinine 1.06 0.80 - 1.50 mg/dL [facility] Comment: Please note that the pediatric reference intervals supplied above were not validated at [facility]. Results from pediatric patients should be interpreted in conjunction to the patient's age, height and muscle mass. Est Glomerular Filtration Rate >60 >=60 [facility] Comment: This estimated GFR (eGFR) [...] the following links into your internet browser. [email or web address] Blood specimen (specimen) 02/08/2017 3:27 PM EDT 02/08/2017 3:39 PM EDT Narrative Resulting Agency Comment Spec In Lab Sujey Ramos APRN [place] [address] documented in this encounter Visit Diagnoses Diagnosis Mass in neck Swelling, mass, or lump in head and neck Gastroesophageal reflux disease with esophagitis, unspecified whether hemorrhage documented in this encounter Care Teams Projection Printer Relationship Specialty Start Date End Date Kennedi Shaver MD [address] [place] [address] PCP - General 08/22/10 08/01/20 documented as of this encounter
--- OUTSIDE RECORDS SUMMARY | 2024-09-11 15:29 | XMS_ITS | Encounter Summary ---
[place] [address] Care Team Providers Care Electric System Operator Name Role Phone Kennedi Shaver MD Primary Care Provider [phone] Reason for Referral * Diagnostic Test (Routine) - Closed Specialty Diagnoses / Procedures Referred By Contac t Referred To Contact Radiology Diagnoses Prostate cancer Procedures NM Whole Body Bone Scan Kennedi Shaver MD [address] [place] [address] [place] [address] Referral ID Status Reason Start Date Expiration Date V isits Requested Visits Authorized [id number] Closed Specialty Service Requested 02/21/2017 02/21/2018 1 1 Reason for Visit * Diagnostic Test (Routine) - Closed Specialty Diagnoses / Procedures Referred By Contac t Referred To Contact Radiology Diagnoses Prostate cancer Procedures NM Whole Body Bone Scan Kennedi Shaver MD [address] [place] [address] [place] [address] Referral ID Status Reason Start Date Expiration Date V isits Requested Visits Authorized [id number] Closed Specialty Service Requested 02/21/2017 02/21/2018 1 1 Encounter Details Date Type Department Care Team (Latest Contact Info) Description 02/26/2017 9:44 AM EDT - 02/26/2017 12:59 PM EDT Hospital Encounter [place] [address] Kennedi Shaver MD [facility] [address] [place] [address] Prostate cancer Discharge Disposition: Home Social History Tobacco Use [...] 4:30 PM EST Hospital Encounter [place] [address] Lizet Wilkes MD [facility] [place] [address] 09/29/2024 4:30 PM EST - 09/29/2024 5:00 PM EST Surgery Gastroenterology at [place] [phone] Lizet Wilkes MD [facility] [place] [address] EGD, UPPER GI ENDOSCOPY (WRVU 2.09) 11/09/2024 10:00 AM EST Laboratory Appointment Lab at [facility] [place] On[place] [address] [place] [phone] 11/09/2024 11:00 AM EST Office Visit Hematology and Oncology at [place] [phone] Faith Caba MD [facility] [place] [address] 11/09/2024 12:00 PM EST Appointment Hematology and Oncology at [place] [phone] Scheduled Procedures Name Priority Associated Diagnoses Date/Ti me EGD, UPPER GI ENDOSCOPY (WRVU 2.09) Gastroesophageal reflux disease with esophagitis, unspecified whether hemorrhage 09/29/2024 4:30 PM EST documented as of this encounter Procedures Procedure Name Priority Date/Time Associated Diagnosis Comments NM BONE SCAN WHOLE BODY Routine 02/26/2017 2:38 PM EDT Prostate cancer documented in this encounter Results * NM Whole Body Bone Scan (02/26/2017 2:38 PM EDT) Anatomical Region Laterality Modality Nuclear Medicine Impressions 02/26/2017 3:52 PM EDT There are two foci of abnormal activity raising concern for metastases. These are located in the right frontal bone and in the distal shaft of the right femur. Narrative 02/26/2017 3:52 PM EDT EXAMINATION: NM WHOLE BODY BONE SCAN CLINICAL [...] Note German Hoffman MD - 02/26/2017 EXAMINATION: [place] WHOLE BODY BONE SCAN CLINICAL HISTORY: Prostate [...] shaft of theright femur. Kennedi Shaver MD [facility] ORDERABLES documented in this encounter Visit Diagnoses Diagnosis Prostate cancer Malignant neoplasm of prostate Gastroesophageal reflux disease with esophagitis, unspecified whether hemorrhage documented in this encounter Administered Medications Inactive Administered Medications - up to 3 most recent administrations Medication Order MAR Action Action Date Dose Rate Site technetium (Tc-99m) methylene diphosphonate (MDP) injection 25 mCi 25 mCi, Intravenous, ONCE PRN, 1 dose, Starting on Sat02/26/17 at 0956, Until Sat02/26/17 at 0956, Per Protocol, Routine Given 02/26/2017 9:56 AM EDT 25 mCi Right Arm documented in this encounter Care Teams Electric System Operator Relationship Specialty Start Date End Date Kennedi Shaver MD [address] [place] [address] [address] [place] [address] PCP - General 08/22/10 08/01/20 documented as of this encounter
--- OUTSIDE RECORDS SUMMARY | 2024-09-11 15:29 | XMS_ITS | Encounter Summary ---
Author Organization [facility] [place] [address] Care Team Providers Care Cookie Mixer Helper Name Role Phone Kennedi Shaver MD Primary Care Provider [phone] Reason for Visit * Reason Onset Date Comments Dizziness 03/29/2017 Encounter Details Date Type Department Care Team (Late st Contact Info) Description 03/29/2017 Telephone Hematology [place] [address] Cassy Velazquez RN Dizziness Social History Tobacco Use Types Packs/Day Years [...] Miscellaneous Notes * Telephone Encounter - Cassy Velazquez RN - 03/29/2017 12:14 PM EDT S/O: Call received from patient. Pt calling to report 2 episodes of almost blacking out. Today hesates he went to the bank & got out of his truck & walked a few steps & thought he was going to black out. Did not lose consciousness but felt unsteady & had to immediately sit down. Denies feeling dizzy. Heart was racing during episode. Similar event happened yesterday. Got out of chair in kitchen & had the sensation that the room was spinning. Described this as a visual experience as opposed to him being dizzy. Did not lose consciousness but felt weak & had to sit down. Did not notice heart racing yesterday. States this happened once about a year ago & was put shawn holter monitor by PCP but nothing was found. Does not take any cardiac medications. Denies chest pain or feeling like heart has been irregular. Estimates he gets about a quart & a half of fluid/day. (1.5 L/day). Has not been out in the heat or over exerting & does not feel like he is dehydrated. Assessment: Vertigo in patient with prostate cancer being treated with casodex & lupron Plan: Advised pt to push po fluids. Will discuss symptoms with DENTAL BILLER to determine whether this may be r/t to treatment or whether he should f/u with PCP. Per DENTAL BILLER: Casodex can cause dizziness. Advised that pt hold casodex for now & f/u with PCP to assess for cardiac issues. Call placed back to pt. Advised to hold casodex & f/u with PCP as above. Reiterated the importance of pushing po fluids & encouraged pt to change position slowly. Asked pt to call back to clinic after f/u with PCP so plan can be made to restart casodex. Advised to call back directly if there are further questions, or if these symptoms fail to improve as anticipated or worsen. Pt in agreement with plan and knows to call clinic with any concerns and/or questions. Message sent to prostate triage pool to f/u with patient. documented in this encounter Plan of Treatment Upcoming Encounters Date Type Department Care Team (Latest Contact Info) Description 09/29/2024 4:30 PM [facility] Hospital [place] [address] Lizet Wilkes MD [facility] [place] [address] 09/29/2024 4:30 PM EST - 09/29/2024 5:00 PM EST Surgery Gastroenterology at [place] [phone] Lizet Wilkes MD [facility] [place] [address] EGD, UPPER GI ENDOSCOPY (WRVU 2.09) 11/09/2024 10:00 AM EST Laboratory Appointment Lab at [facility] Hematology Oncology [address] [place] [address] 11/09/2024 11:00 AM EST Office Visit Hematology and Oncology at [place] [phone] Faith Caba MD [facility] DR [place] [address] 11/09/2024 12:00 PM EST Appointment Hematology and Oncology at [place] [address] Scheduled Procedures Name Priority Associated Diagnoses Date/Ti me EGD, UPPER GI ENDOSCOPY (WRVU 2.09) Gastroesophageal reflux disease with esophagitis, unspecified whether hemorrhage 09/29/2024 4:30 PM EST documented as of this encounter Visit Diagnoses Not on filedocumented in this encounter Care Teams Cookie Mixer Helper Relationship Specialty Start Date End Date Kennedi Shaver MD [facility] [address] [place] [address] PCP - General 08/22/10 08/01/20 documented as of this encounter
--- OUTSIDE RECORDS SUMMARY | 2024-09-11 15:29 | XMS_ITS | Encounter Summary ---
Author Organization Formerly [facility] [place] [address] Care Team Providers Care Stoker Mechanic Name Role Phone Kennedi Shaver MD Primary Care Provider Reason for Visit * Reason Comments Follow-up Encounter Details Date Type Department Care Team (Late st Contact Info) Description 03/12/2017 10:00 AM EDT Office Visit Hematology [place] [address] Faith Caba MD [facility] [place] [address] Neoplasm of prostate, distant metastasis staging category [...] Sign Reading Time Taken Comments Blood Pressure 148/74 03/12/2017 10:02 AM EDT Pulse 67 03/12/2017 10:02 AM EDT Temperature 36.7 ??C (98.1 ??F) 03/12/2017 10:02 AM E DT Respiratory Rate 18 03/12/2017 10:02 AM EDT Oxygen Saturation 97% 03/12/2017 10:02 AM EDT Inhaled Oxygen Concentration - - Weight 88.9 kg (196 lb) 03/12/2017 10:02 AM EDT Height 179.8 cm (5' 10.79) 03/12/2017 10:02 AM EDT Body Mass Index 27.5 03/12/2017 10:02 AM EDT documented in this encounter Progress Notes * Faith Caba MD - 03/12/2017 10:00 AM EDT Images from the original note were not included. [facility] [place] [place] [facility] [address] ?? DATE: 03/12/2017 FOLLOW UP VISIT DIAGNOSIS: Metastatic prostate cancer [...] y.o. man with above oncology hx here to discuss treatment in more detail. He is accompanied by his Tori and daughter Sixto (who is in [facility]). On ROS, he denies pain,has stable LUTS, no hematuria REVIEW OF SYSTEMS: Aside from above, the remainder of the the ROS was negative PAST MEDICAL HISTORY: 1. As above 2. GERD and Sol's esophagus S/p Alli Fundoplication 3. ELevated fasting glusoce 4. S/p distant appendectomy 5. S/p tonsilectomy MEDS: Medications 03/12/17 1008 Medication Sig Taking? ibuprofen (ADVIL;MOTRIN) 200 mg [...] file Social History Narrative PHYSICAL EXAM: BP 148/74 (Patient Position: Sitting) Pulse 67 Temp 36.7 ??C (98.1 ??F) (Oral) Resp 18 Ht 179.8 cm (5' 10.79) Wt 88.9 kg (196 lb) SpO2 97% BMI 27.5 kg/m2 PS=0 General: Well appearing. Head: NCAT Neuro: No focal weakness Psych: Normal mood and affect. LABS: Reviewed as above IMAGING STUDIES: I have personally reviewed the images and radiology reports and summarized the findings as above ASSESSMENT AND PLAN: Chidi aCrbone has new dx of metastatic prostate cancer with extensive disease involving nodes and bones. I reviewed his work up including imaging, labs and path again with his family. As detailed in my prior note, he has bone disease in the rib and femur. We again discussed that data behind palliative ADT +/- chemotherapy as well as recently released data and approval for upfront abiraterone ([place] trial, [id number].). He would like to start leuprolide. We discussed in detail the potential SEs of this inclyuding but not limited to fatigue, vasomotor sx, gynecomastia, bone density loss, sexual dysfunction, and cardiac risk. There is a suspectedrisk of cognitive decline. I also warn of risk of depression and mood lability. After review, he would like to start in a week. I will send an Rx for casodex to his pharmacy to start a few days priorto lupron. We will review the role of chemotherapy when he returns for his injection. We reviewed the importance of QOL, secifically with balancing SEs of therapy with expected benefit. Pt was instructed to call our clinic with any new symptom or any questions. Faith Caba MD, PhD Hematology/Oncology documented in this encounter Plan of Treatment Upcoming Encounters Date Type Department Care Team (Latest Contact Info) Description 09/29/2024 4:30 PM EST Hospital Encounter [place] [address] Lizet Wilkes MD [facility] [address] 09/29/2024 4:30 PM EST - 09/29/2024 5:00 PM EST Surgery [place] [phone] Lizet Wilkes MD [facility] [place] [address] EGD, UPPER GI ENDOSCOPY (WRVU 2.09) 11/09/2024 10:00 AM EST Laboratory Appointment Lab at [facility] Hematology Oncology [address] [place] [phone] 11/09/2024 11:00 AM EST Office Visit Hematology [place] [phone] Faith Caba MD [facility] DR HEMATOLOGY AND ONCOLOGY [place], [place] [phone] 11/09/2024 12:00 PM EST Appointment Hematology [place] [phone] Scheduled Procedures Name Priority Associated Diagnoses Date/Ti me EGD, UPPER GI ENDOSCOPY (WRVU 2.09) Gastroesophageal reflux disease with esophagitis, unspecified whether hemorrhage 09/29/2024 4:30 PM EST documented as of this encounter Results * Comprehensive metabolic panel (non-fasting) (05/21/2017 9:49 AM EDT) Glucose 123 65 - 199 mg/dL [facility] Comment:Diabetes: >=200 mg/d L plus symptoms Blood Urea Nitrogen 18 10 - 20 mg/dL [facility] Creatinine 0.96 0.80 - 1.50 mg/dL [facility] Comment: Please note that the pediatric reference intervals supplied above were not validated at [facility]. Results from pediatric patients should be interpreted in conjunction to the patient's age, height and muscle mass. Sodium 141 135 - 145 mmol/L [facility] Potassium 4.2 3.5 - 5.0 mmol/L [facility] Comment: Please note: ??Patients with WBC >100,000 may have falsely elevated Potassium levels. ??For accurate Potassium quantification in these patients send serum separator tube (gold top) for subsequent determinations. ??Contact the Clinical Chemistry Laboratory if there are any questions. Chloride 104 98 - 107 mmol/L [facility] Carbon Dioxide 24 22 - 31 mmol/L [facility] Anion Gap 13 5 - 15 mmol/L [facility] Calcium 9.4 8.5 - 10.5 mg/dL [facility] Protein, Total 7.1 6.1 - 8.0 gm/dL [facility] Albumin 4.4 3.2 - 5.2 gm/dL [facility] Aspartate Aminotransferase 33 0 - 39 unit/L [facility] Alanine Aminotransferase 43 0 - 55 unit/L [facility] Alkaline Phosphatase 77 40 - 120 unit/L [facility] Bilirubin, Total 0.7 0.2 - 1.3 mg/dL [facility] Est Glomerular Filtration Rate >60 >=60 [facility] Comment: This estimated GFR (eGFR) [...] the following links into your internet browser. [email or web address] [email or web address] Blood specimen (specimen) 05/21/2017 9:49 AM EDT 05/21/2017 10:08 AM EDT Narrative Resulting Agency Comment Spec In Lab Faith Caba MD CHEMISTRY ORDERABLES [facility] [place] [address] * (ABNORMAL) Comprehensive metabolic panel (non-fasting) (03/20/2017 10:07 AM EDT) Glucose 108 65 - 199 mg/dL [facility] Comment:Diabetes: >=200 mg/d L plus symptoms Blood Urea Nitrogen 19 10 - 20 mg/dL [facility] Creatinine 0.97 0.80 - 1.50 mg/dL [facility] Comment: Please note that the pediatric reference intervals supplied above were not validated at [facility]. Results from pediatric patients should be interpreted in conjunction to the patient's age, height and muscle mass. Sodium 139 135 - 145 mmol/L [facility] Potassium 4.2 3.5 - 5.0 mmol/L [facility] Comment: Please note: ??Patients with WBC >100,000 may have falsely elevated Potassium levels. ??For accurate Potassium quantification in these patients send serum separator tube (gold top) for subsequent determinations. ??Contact the Clinical Chemistry Laboratory if there are any questions. Chloride 101 98 - 107 mmol/L [facility] Carbon Dioxide 22 22 - 31 mmol/L [facility] Anion Gap 16(H) 5 - 15 mmol/L [facility] Calcium 9.3 8.5 - 10.5 mg/dL [facility] Protein, Total 7.2 6.1 - 8.0 gm/dL [facility] Albumin 4.3 3.2 - 5.2 gm/dL [facility] Aspartate Aminotransferase 16 0 - 39 unit/L [facility] Alanine Aminotransferase 16 0 - 55 unit/L [facility] Alkaline Phosphatase 73 40 - 120 unit/L [facility] Bilirubin, Total 0.6 0.2 - 1.3 mg/dL [facility] Bilirubin, Direct 0.1 0.0 - 0.3 mg/dL [facility] Est Glomerular Filtration Rate >60 >=60 [facility] Comment: This estimated GFR (eGFR) [...] the following links into your internet browser. [email or web address] [email or web address] Blood specimen (specimen) 03/20/2017 10:07 AM EDT 03/20/2017 10:17 AM EDT Narrative Resulting Agency Comment Spec In Lab Faith Caba MD CHEMISTRY ORDERABLES Performing Organization Address City/[facility]/ZIP Co de Phone Number [facility] [place] [address] * (ABNORMAL) PSA (03/20/2017 10:07 AM EDT) Prostate Specific Antigen (Ultrasensitiv e) 237.80(H) 0.00 - 4.00 ng/mL [facility] Blood specimen (specimen) 03/20/2017 10:07 AM EDT 03/20/2017 10:17 AM EDT Narrative Resulting Agency Comment Spec In Lab Faith Caba MD CHEMISTRY ORDERABLES Performing Organization Address [facility] Co de Phone Number [facility] [place] [address] documented in this encounter Visit Diagnoses Diagnosis Neoplasm of prostate, distant metastasis staging category M1c: distant metastasis with or without metastasis to bone Gastroesophageal reflux disease with esophagitis, unspecified whether hemorrhage documented in this encounter Care Teams Stoker Mechanic Relationship Specialty Start Date End Date Kennedi Shaver MD [address] [place] [address] PCP - General 08/22/10 08/01/20 documented as of this encounter
--- OUTSIDE RECORDS SUMMARY | 2024-09-11 15:29 | XMS_ITS | Encounter Summary ---
Author Organization [facility] [place] [address] Care Team Providers Care Painter Set Name Role Phone Kennedi Shaver MD Primary Care Provider Reason for Visit * Reason Onset Date Comments Medication Management 04/19/2017 Encounter Details Date Type Department Care Team (Late st Contact Info) Description 04/19/2017 Telephone Hematology [place] [phone] Melida Hare, employment specialist Management Social History Tobacco Use Types Packs/Day Years [...] encounter Miscellaneous Notes * Telephone Encounter - Melida Hare RN - 04/19/2017 10:50 AM EDT Message received from medical assistant secretary: Please call patient at [phone], the patient takes his bicalutamide med at 8:00am everyday but today he forgot and he was wondering if it was ok to take now RN instructed pt that taking his dose of bicalutamide now is ok. Pt states he is standing right next to it and will take it right away. Pt also reports that things have been going fine. documented in this encounter Plan of Treatment Upcoming Encounters Date Type Department Care Team (Latest Contact Info) Description 09/29/2024 4:30 PM EST Hospital Encounter [place] [address] Lizet Wilkes MD [facility] [place] [address] 09/29/2024 4:30 PM EST - 09/29/2024 5:00 PM EST Surgery [place] [phone] Lizet Wilkes MD [facility] [place] [address] EGD, UPPER GI ENDOSCOPY (WRVU 2.09) 11/09/2024 10:00 AM EST Laboratory Appointment Lab at [facility] Hematology Oncology [address] [place] [phone] 11/09/2024 11:00 AM EST Office Visit Hematology [place] [phone] Faith Caba MD [facility] [place] [address] 11/09/2024 12:00 PM EST Appointment Hematology [place] [phone] Scheduled Procedures Name Priority Associated Diagnoses Date/Ti me EGD, UPPER GI ENDOSCOPY (WRVU 2.09) Gastroesophageal reflux disease with esophagitis, unspecified whether hemorrhage 09/29/2024 4:30 PM EST documented as of this encounter Visit Diagnoses Not on filedocumented in this encounter Care Teams Painter Set Relationship Specialty Start Date End Date Kennedi Shaver MD [facility] [address] [place] [address] PCP - General 08/22/10 08/01/20 documented as of this encounter
--- OUTSIDE RECORDS SUMMARY | 2024-09-11 15:29 | XMS_ITS | Encounter Summary ---
Author Organization Formerly [facility] Address [facility] [place] [address] Care Team Providers Care Drilling Engineering Manager Name Role Phone Kennedi Shaver MD Primary Care Provider [phone] Encounter Details Date Type Department Care Team (Late st Contact Info) Description 02/05/2017 3:23 PM EDT - 02/05/2017 11:59 PM EDT Hospital Encounter [place] [address] Leda Larsen MD [facility] [place] [address] Soft tissue mass Discharge Disposition: Home Social [...] 4:30 PM EST Hospital Encounter Gastroenterology at [place] [phone] Lizet Wilkes MD [facility] [place] [address] 09/29/2024 4:30 PM EST - 09/29/2024 5:00 PM EST Surgery [place] [phone] Lizet Wilkes MD [facility] [place] [address] EGD, UPPER GI ENDOSCOPY (WRVU 2.09) 11/09/2024 10:00 AM EST Laboratory Appointment Lab at [facility] Hematology Oncology [address] [place] [phone] 11/09/2024 11:00 AM EST Office Visit Hematology [place] [phone] Faith Caba MD [facility] DR [place] [address] 11/09/2024 12:00 PM EST Appointment Hematology [place] [phone] Scheduled Procedures Name Priority Associated Diagnoses Date/Ti me EGD, UPPER GI ENDOSCOPY (WRVU 2.09) Gastroesophageal reflux disease with esophagitis, unspecified whether hemorrhage 09/29/2024 4:30 PM EST documented as of this encounter Procedures Procedure Name Priority Date/Time Associated Diagnosis Comments US SOFT TISSUE HEAD OR NECK Routine 02/05/2017 4:03 PM EDT Soft tissue mass documented in this encounter Results * (ABNORMAL) US Soft Tissue Head Or Neck (02/05/2017 4:03 PM EDT) Anatomical Region Laterality Modality Ultrasound 02/05/2017 4:01 PM EDT Impressions 02/05/2017 4:29 PM EDT ??Ultrasound Dictation: No prior studies available for comparison. 1. ??There are multiple morphologically abnormal enlarged cervical lymph nodes, largest measuring 4.9 x 2.8 x 1.6 cm. There is loss of the normal fatty hilum and associated parallel cortical flow suggestive of metastatic disease. Recommend CT scan of the neck for better characterization and to evaluate for primary lesion. 2. ??UNEXPECTED FINDINGS ? Diana Arreguin MD Electronically Signed Final Report ?? 02/05/2017 04:28 pm Narrative 02/05/2017 4:29 PM EDT Ultrasound Report ?(Signed Final 02/05/2017 04:28 pm) PATIENT INFO: ID #: ? [id number] ?: [birth year] (71 yrs) Name: ? CHIDI CARBONE ? Visit Date: 02/05/2017 04:01 pm PERFORMED BY: Performed By: ? Elise Ambriz RDMS Attending: ?Dorothy MOON, Diana Benjamin Referred By: ?LEDA LARSEN MD Location: ? [facility] SERVICE(S) PROVIDED: ??USTN - Soft Tissue Neck or Head - [id number] ? [id number] INDICATIONS: ??7cm left neck mass. please evaluate for ??character, and also location in regards to ??SCM. COMPARISON: No prior studies for comparison. -------- HISTORY: -------- Palpable area left neck for approx. one month per patient --------- FINDINGS: --------- Title: ? Ultrasound Report Findings: ?Multiple lymph nodes seen, largest at palp area ?measurin.91 x 1.62 x 2.76 cm. Resulting Agency Comment Unexpected Finding Leda Williamson MD IM US GEN ORDER MONALISA documented in this encounter Visit Diagnoses Diagnosis Soft tissue mass Disorders of soft tissue, unspecified Gastroesophageal reflux disease with esophagitis, unspecified whether hemorrhage documented in this encounter Care Teams Drilling Engineering Manager Relationship Specialty Start Date End Date Kennedi Shaver MD [address] [place] [address] PCP - General 08/22/10 08/01/20 documented as of this encounter
--- OUTSIDE RECORDS SUMMARY | 2024-09-11 15:29 | XMS_ITS | Encounter Summary ---
[place] [address] Care Team Providers Care Dough Mixer Operator Name Role Phone Kennedi Shaver MD Primary Care Provider [phone] Reason for Referral * Diagnostic Test (Routine) - Closed Specialty Diagnoses / Procedures Referred By Contac t Referred To Contact Radiology Diagnoses Mass in neck Procedures MRI Neck wwo Contrast MRI Soft Tissue Neck w Contrast (Generic) Sujey Ramos APRN [facility] [place] [address] [place] [address] Referral ID Status Reason Start Date Expiration Date V isits Requested Visits Authorized [id number] Closed Specialty Service Requested 02/06/2017 02/06/2018 1 1 Reason for Visit * Diagnostic Test (Routine) - Closed Specialty Diagnoses / Procedures Referred By Blaine peralta Referred To Contact Radiology Diagnoses Mass in neck Procedures MRI Neck wwo Contrast MRI Soft Tissue Neck w Contrast (Generic) Sujey Ramos APRN [facility] [place] [address] [facility] [place] [address] Referral ID Status Reason Start Date Expiration Date V isits Requested Visits Authorized [id number] Closed Specialty Service Requested 02/06/2017 02/06/2018 1 1 Encounter Details Date Type Department Care Team (Late st Contact Info) Description 02/08/2017 7:09 PM EDT - 02/08/2017 11:59 PM EDT Hospital Encounter MRI at [facility] [place] [phone] Sujey Ramos APRN [facility] [place] [address] Mass in neck Discharge Disposition: Home Social History Tobacco Use [...] 4:30 PM EST Hospital Encounter [place] [phone] Lizet Wilkes MD [facility] [place] [address] 09/29/2024 4:30 PM EST - 09/29/2024 5:00 PM EST Surgery Gastroenterology at [place] [phone] Lizet Wilkes MD [facility] [place] [address] EGD, UPPER GI ENDOSCOPY (WRVU 2.09) 11/09/2024 10:00 AM EST Laboratory Appointment Lab at [facility] Hematology Oncology [address] [place] [phone] 11/09/2024 11:00 AM EST Office Visit Hematology and Oncology at [place] [phone] Faith Caba MD [facility] DR HEMATOLOGY [place] [address] 11/09/2024 12:00 PM EST Appointment Hematology and Oncology at [place] [phone] Scheduled Procedures Name Priority Associated Diagnoses Date/Ti me EGD, UPPER GI ENDOSCOPY (WRVU 2.09) Gastroesophageal reflux disease with esophagitis, unspecified whether hemorrhage 09/29/2024 4:30 PM EST documented as of this encounter Procedures Procedure Name Priority Date/Time Associated Diagnosis Comments MRI NECK WITH/WO CONTRAST Routine 02/08/2017 8:14 PM EDT Mass in neck documented in this encounter Results * MRI Neck wwo [...] Sujey Ramos APRN IMG MRI ORDERABL ES documented in this encounter Visit Diagnoses Diagnosis Mass in neck Swelling, mass, or lump in head and neck Gastroesophageal reflux disease with esophagitis, unspecified whether hemorrhage documented in this encounter Administered Medications Inactive Administered Medications - up to 3 most recent administrations Medication Order MAR Action Action Date Dose Rate Site gadobutrol (GADAVIST) 1 mMol/mL injection 9.07 mL 9.07 mL (0.1 mL/kg/dose ? 90.7 kg Order-specific weight), Intravenous, ONCE PRN, 1 dose, Starting on Sat02/08/17 at 1948, Until Sat02/08/17 at 2014, Per Protocol, Routine Given 02/08/2017 8:14 PM EDT 9 mLs documented in this encounter Care Teams Dough Mixer Operator Relationship Specialty Start Date End Date Kennedi Shaver MD [facility] [address] [place] [address] PCP - General 08/22/10 08/01/20 documented as of this encounter
--- OUTSIDE RECORDS SUMMARY | 2024-09-11 15:29 | XMS_ITS | Encounter Summary ---
[place] [address] Care Team Providers Care Cloth Sponger Name Role Phone Kennedi Shaver MD Primary Care Provider [phone] Encounter Details Date Type Department Care Team (Latest Contact Info) Description 04/23/2017 9:30 AM EDT Hospital Encounter Hematology [place] [address] Neoplasm of prostate, distant metastasis staging category [...] 4:30 PM EST Hospital Encounter [place] [address] Lizet Wilkes MD [facility] [place] [address] 09/29/2024 4:30 PM EST - 09/29/2024 5:00 PM EST Surgery [place] [address] Lizet Wilkes MD [facility] [place] [address] EGD, UPPER GI ENDOSCOPY (WRVU 2.09) 11/09/2024 10:00 AM EST Laboratory Appointment Lab at [facility]ematology Oncology [address] [place] [phone] 11/09/2024 11:00 AM EST Office Visit Hematology [place] [address] Faith Caba MD [facility] DR HEMATOLOGY [place] [address] 11/09/2024 12:00 PM EST Appointment Hematology and Oncology at [facility] [place] [phone] Scheduled Procedures Name Priority Associated Diagnoses Date/Ti me EGD, UPPER GI ENDOSCOPY (WRVU 2.09) Gastroesophageal reflux disease with esophagitis, unspecified whether hemorrhage 09/29/2024 4:30 PM EST documented as of this encounter Procedures Procedure Name Priority Date/Time Associated Diagnosis Comments HEMOGRAM STAT 04/23/2017 9:37 AM EDT Neoplasm of prostate, 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 with or without metastasis to bone DIFFERENTIAL, AUTOMATED STAT 04/23/2017 9:37 AM EDT Neoplasm of prostate, distant metastasis staging category M1c: distant metastasis with or without metastasis to bone CBC (WITH DIFF) STAT 04/23/2017 9:37 AM EDT Neoplasm of prostate, distant metastasis staging category M1c: distant metastasis with or without metastasis to bone TESTOSTERONE, TOTAL STAT 04/23/2017 9 :37 AM EDT Neoplasm of prostate, distant metastasis staging category M1c: distant metastasis with or without metastasis to bone PSA (ULTRASENSITIVE) STAT 04/23/2017 9:37 AM EDT Neoplasm of prostate, distant metastasis staging category M1c: distant metastasis with or without metastasis to bone COMPREHENSIVE METABOLIC PANEL STAT 04/23/2017 9:37 AM EDT Neoplasm of prostate, distant metastasis staging category M1c: distant metastasis with or without metastasis to bone documented in this encounter Results * Differential, Automated (04/23/2017 9:37 AM EDT) Neutrophil % 56.8 % [facility] Neutrophil Absolute 3.22 1.70 - 6.10 x10(3)/[facility] Lymph % 24.3 % [facility] Lymphocytes Abs 1.4 0.9 - 3.2 x10(3)/[facility] Monocyte % 12.9 % [facility] Monocyte Abs 0.7 0.3 - 0.9 x10(3)/[facility] Eos % 5.1 % [facility] Eosinophils Abs 0.3 0.0 - 0.4 x10(3)/[facility] Basophil % 0.7 % [facility] Baso Absolute 0.0 0.0 - 0.1 x10(3)/[facility] Immature Gran % 0.20 % [facility] Comment: Immature granulocytes(IG's)percentage and absolute count will include metamyelocytes, myelocytes, and promyelocytes. Blood smears from CBCs yielding IG's will be scanned manually for concordance. If this scan disagrees with the automated IG or if promyelocytes are noted, a manual differential will be performed. Immature Gran Absolute 0.01 0.00 - 0.04 x10(3)/[facility] Blood specimen (specimen) 04/23/2017 9:37 AM EDT 04/23/2017 9:42 AM EDT Narrative Resulting Agency Comment Spec In Lab Nona Galvan HOT AIR FURNACE INSTALLER REPAIRER HEMATOLOGY ORD ERABLES [facility] [place] [address] * Hemogram (04/23/2017 9:37 AM EDT) White Blood Cell 5.7 4.0 - 9.5 x10(3)/[facility] Red Blood Cell 4.94 4.58 - 5.54 x10(6)/[facility] Hemoglobin 14.9 13.7 - 16.5 gm/dL [facility] Hematocrit 42.8 40.5 - 48.5 % [facility] Mean Cell Volume 86.6 82.9 - 93.1 fL [facility] Mean Cell Hemoglobin 30.2 27.5 - 32.1 pg [facility] Mean Cell Hemoglobin Concentration 34.8 32.0 - 35.7 gm/dL [facility] Platelet 225 145 - 357 x10(3)/[facility] RDW Standard Deviation 41.2 36.0 - 45.0 [facility] RDW coefficient of variation 13.2 11.4 - 13.8 % [facility] Mean Platelet Volume 10.0 7.6 - 12.9 [facility] NRBC% auto 0.0 % [facility] NRBC Absolute 0.000 0.000 - 0.000 x10(3)/[facility] Blood specimen (specimen) 04/23/2017 9:37 AM EDT 04/23/2017 9:42 AM EDT Narrative Resulting Agency Comment Spec In Lab Nona Galvan H[employer]NACE INSTALLER REPAIRER HEMATOLOGY ORD ERABLES [facility] [place] [address] * (ABNORMAL) Testosterone, total (04/23/2017 9:37 AM EDT) Testosterone 0.15(L) 2.80 - 8.00 ng/mL [facility] Comment: Reference Ranges: ? Males (7to18 [...] of Kenneth E170 Testosterone reagent package insert 08/04, V8 Stated pediatric reference ranges derived from review of Kenneth E170 Testosterone II reagent package insert 04/08, V2. Blood specimen (specimen) 04/23/2017 9:37 AM EDT 04/23/2017 9:42 AM EDT Narrative Resulting Agency Comment Spec In Lab Nona Galvan APRN CHEMISTRY DAJUAN QURESHI [facility] [place] [address] * (ABNORMAL) PSA (04/23/2017 9:37 AM EDT) Prostate Specific Antigen (Ultrasensitiv e) 28.00(H) 0.00 - 4.00 ng/mL [facility] Blood specimen (specimen) 04/23/2017 9:37 AM EDT 04/23/2017 9:42 AM EDT Narrative Resulting Agency Comment Spec In Lab Nona Galvan HOT [employer] FURNACE INSTALLER REPAIRER CHEMISTRY ORDE TITUS [facility] [place] [address] * Comprehensive metabolic panel (non-fasting) (04/23/2017 9:37 AM EDT) Glucose 107 65 - 199 mg/dL [facility] Comment:Diabetes: >=200 mg/d L plus symptoms Blood Urea Nitrogen 18 10 - 20 mg/dL [facility] Creatinine 0.95 0.80 - 1.50 mg/dL [facility] Comment: Please note that the pediatric reference intervals supplied above were not validated at [facility]. Results from pediatric patients should be interpreted in conjunction to the patient's age, height and muscle mass. Sodium 142 135 - 145 mmol/L [facility] Potassium 4.5 3.5 - 5.0 mmol/L [facility] Comment: Please note: ??Patients with WBC >100,000 may have falsely elevated Potassium levels. ??For accurate Potassium quantification in these patients send serum separator tube (gold top) for subsequent determinations. ??Contact the Clinical Chemistry Laboratory if there are any questions. Chloride 103 98 - 107 mmol/L [facility] Carbon Dioxide 25 22 - 31 mmol/L [facility] Anion Gap 14 5 - 15 mmol/L [facility] Calcium 9.6 8.5 - 10.5 mg/dL [facility] Protein, Total 7.4 6.1 - 8.0 gm/dL [facility] Albumin 4.4 3.2 - 5.2 gm/dL [facility] Aspartate Aminotransferase 17 0 - 39 unit/L [facility] Alanine Aminotransferase 18 0 - 55 unit/L [facility] Alkaline Phosphatase 82 40 - 120 unit/L [facility] Bilirubin, Total 0.5 0.2 - 1.3 mg/dL [facility] Est Glomerular Filtration Rate >60 >=60 [facility] Comment: This estimated GFR (eGFR) [...] the following links into your internet browser. [email or web address] Blood specimen (specimen) 04/23/2017 9:37 AM EDT 04/23/2017 9:42 AM EDT Narrative Resulting Agency Comment Spec In Lab Nona Galvan APRN CHEMISTRY DAJUAN QURESHI [facility] [place] [id number] documented in this encounter Visit Diagnoses Diagnosis Neoplasm of prostate, distant metastasis staging category M1c: distant metastasis with or without metastasis to bone Gastroesophageal reflux disease with esophagitis, unspecified whether hemorrhage documented in this encounter Care Teams Cloth Sponger Relationship Specialty Start Date End Date Kennedi Shaver MD [address] [place] [address] PCP - General 08/22/10 08/01/20 documented as of this encounter
--- OUTSIDE RECORDS SUMMARY | 2024-09-11 15:29 | XMS_ITS | Encounter Summary ---
Author Organization [facility] [place] [address] Care Team Providers Care Snow Plow Tractor Operator Name Role Phone Kennedi Shaver MD Primary Care Provider [phone] Encounter Details Date Type Department Care Team (Late st Contact Info) Description 04/26/2017 Telephone Hematology [place] [address] Cassy Velazquez, RN Social History Tobacco Use [...] Miscellaneous Notes * Telephone Encounter - Cassy Velazquez, RN - 04/26/2017 4:23 PM EDT Entered in error documented in this encounter Plan of Treatment Upcoming Encounters Date Type Department Care Team (Latest Contact Info) Description 09/29/2024 4:30 PM EST Hospital En[place] [address] Lizet Wilkes MD [facility] [place] [address] 09/29/2024 4:30 PM EST - 09/29/2024 5:00 PM EST Surgery Gastroenterology at [place] [phone] Lizet Wilkes MD [facility] [place] [address] EGD, UPPER GI ENDOSCOPY (WRVU 2.09) 11/09/2024 10:00 AM EST Laboratory Appointment Lab at [facility] Hematology Oncology [address] [place], [place] [phone] 11/09/2024 11:00 AM EST Office Visit Hematology and Oncology at [place] [phone] Faith Caba MD [facility] [address] [place] [address] 11/09/2024 12:00 PM EST Appointment Hematology and Oncology at [place] [address] Scheduled Procedures Name Priority Associated Diagnoses Date/Ti me EGD, UPPER GI ENDOSCOPY (WRVU 2.09) Gastroesophageal reflux disease with esophagitis, unspecified whether hemorrhage 09/29/2024 4:30 PM EST documented as of this encounter Visit Diagnoses Not on filedocumented in this encounter Care Teams Snow Plow Tractor Operator Relationship Specialty Start Date End Date Kennedi Shaver MD [address] [place] [address] PCP - General 08/22/10 08/01/20 documented as of this encounter
--- OUTSIDE RECORDS SUMMARY | 2024-09-11 15:29 | XMS_ITS | Encounter Summary ---
[place] [address] Care Team Providers Care Appellate Court Judge Name Role Phone Kennedi Shaver MD Primary Care Provider [phone] Encounter Details Date Type Department Care Team (Latest Contact Info) Description 03/20/2017 9:54 AM EDT Hospital Encounter Hematology [place] [address] Neoplasm of prostate, distant metastasis staging category [...] Progress Notes * Stephanie Woodson RN - 03/20/2017 11:58 AM EDT Patient Name: Chidi Carbone Patient Age: 71 y.o. Birthdate: 1945 Admit date: 03/20/2017 Attending Physician: No att. providers found Access visit. See MAR and/or flowsheet. documented in this encounter Plan of Treatment Upcoming Encounters Date Type Department Care Team (Latest Contact Info) Description 09/29/2024 4:30 PM EST Hospital Encounter [place] [address] Lizet Wilkes MD [facility] [place] [address] 09/29/2024 4:30 PM EST - 09/29/2024 5:00 PM EST Surgery [place] [address] Lizet Wilkes MD [facility] [place] [address] EGD, UPPER GI ENDOSCOPY (WRVU 2.09) 11/09/2024 10:00 AM EST Laboratory Appointment [place] [facility] [place] [address] [place] [phone] 11/09/2024 11:00 AM EST Office Visit Hematology [place] [address] Faith Caba MD [facility] DR HEMATOLOGY [place] [address] 11/09/2024 12:00 PM EST Appointment Hematology [place] [address] Scheduled Procedures Name Priority Associated Diagnoses Date/Ti [...] Date Dose Rate Site leuprolide (LUPRON) injection 7.5 mg 7.5 mg, Intramuscular, ONCE, 1 dose, On Sat03/20/17 at 1200, Routine Given 03/20/2017 11:50 AM EDT 7.5 mg Left Gluteal documented in this encounter Care Teams Appellate Court Judge Relationship Specialty Start Date End Date Kennedi Shaver MD [address] [place] [address] PCP - General 08/22/10 08/01/20 documented as of this encounter
--- OUTSIDE RECORDS SUMMARY | 2024-09-11 15:29 | XMS_ITS | Encounter Summary ---
[place] [address] Care Team Providers Care Diesel Mechanic Farm Name Role Phone Kennedi Shaver MD Primary Care Provider [phone] Reason for Referral * Diagnostic Test (Routine) - Closed Specialty Diagnoses / Procedures Referred By Blaine peralta Referred To Contact Radiology Diagnoses Cervical lymphadenopathy Procedures CT Chest Abdomen Pelvis w Contrast (Generic) Kennedi Shaver MD [address] [place] [address] [facility] [place] [address] Referral ID Status Reason Start Date Expiration Date V isits Requested Visits Authorized Closed Specialty Service Requested 02/18/2017 02/18/2018 1 1 Reason for Visit * Diagnostic Test (Routine) - Closed Specialty Diagnoses / Procedures Referred By Blaine peralta Referred To Contact Radiology Diagnoses Cervical lymphadenopathy Procedures CT Chest Abdomen Pelvis w Contrast (Generic) Kennedi Shaver MD [address] [place] [address] [facility] [place] [address] Referral ID Status Reason Start Date Expiration Date V isits Requested Visits Authorized Closed Specialty Service Requested 02/18/2017 02/18/2018 1 1 Encounter Details Date Type Department Care Team (Latest Contact Info) Description 02/19/2017 1:59 PM EDT - 02/19/2017 11:59 PM EDT Hospital [place] [address] Kennedi Shaver MD [facility] [address] [place], [place] [address] Cervical lymphadenopathy Discharge Disposition: Home Social History Tobacco Use [...] 4:30 PM EST Hospital Encounter [place] [address] Lizet Wilkes MD [facility] [place] [address] 09/29/2024 4:30 PM EST - 09/29/2024 5:00 PM EST Surgery Gastroenterology at [place] [phone] Lizet Wilkes MD [facility] [place] [address] EGD, UPPER GI ENDOSCOPY (WRVU 2.09) 11/09/2024 10:00 AM EST Laboratory Appointment Lab [place] [facility] [place] [address] [place] [phone] 11/09/2024 11:00 AM EST Office Visit H[place]ology [place] [phone] Faith Caba MD [facility] DR [place] [address] 11/09/2024 12:00 PM EST Appointment Hematology and Oncology at [place] [phone] Scheduled Procedures Name Priority Associated Diagnoses Date/Ti me EGD, UPPER GI ENDOSCOPY (WRVU 2.09) Gastroesophageal reflux disease with esophagitis, unspecified whether hemorrhage 09/29/2024 4:30 PM EST documented as of this encounter Procedures Procedure Name Priority Date/Time Associated Diagnosis Comments CT CHEST ABDOMEN PELVIS W CONTRAST (GENERIC) Routine 02/19/2017 4:47 PM EDT Cervical lymphadenopathy documented in this encounter Results * (ABNORMAL) CT Chest Abdomen Pelvis w Contrast (Generic) (02/19/2017 4:47 PM EDT) Anatomical Region Laterality Modality Abdomen, Pelvis Computed Tomogra phy Impressions 02/20/2017 8:30 AM EDT Left neck, retroperitoneal and pelvic lymphadenopathy. Diverticulosis without acuity. Direct visualization suggested to exclude the possibility of intraluminal mass. Prostatic enlargement and mural irregularity. Urologic opinion suggested to evaluate for the possibility of underlying malignancy there in. Indeterminate osseous sclerotic foci. While these may be degenerative in nature, in the setting of ongoing lymphadenopathy and prostatic enlargement metastatic disease cannot be excluded. Bone scan is suggested for further correlation. Unexpected findings. Narrative 02/20/2017 8:30 AM EDT EXAMINATION: CT CHEST ABDOMEN PELVIS W CONTRAST (GENERIC) CLINICAL HISTORY: Cervical lymphadenopathy TECHNIQUE: Helical CT of the chest, abdomen, and pelvis was performed following intravenous administration of 98 ml of Omnipaque 350 Oral contrast was administered. COMPARISON: None FINDINGS: Chest: Lungs and large airways: Normal. Pleura: No effusion. Heart/vasculature: Heart not enlarged. Maximum caliber ascending thoracic aorta 3.8 cm. Lymph nodes/Mediastinum/Latesha: 1.6 x 2.5 cm left supraclavicular lymph node. No enlarged hilar nor mediastinal lymph nodes. Abdomen/pelvis: Liver: Normal size and attenuation without lesions. Bile ducts: Nondilated. Gallbladder: No calcified gallstones. Normal caliber wall. Pancreas: Normal attenuation without ductal dilatation. Spleen: Normal. Adrenals: Normal. Kidneys: Normal. Left parapelvic cysts. No collecting system dilation. No suspicious renal masses. Vasculature: Normal Lymph Nodes: ??Enlarged aortocaval and left para-aortic lymph nodes measuring up to 3.9 x 2.8 cm. Borderline left common femoral lymph nodes accompany enlarged bilateral common and external iliac lymph nodes. Borderline bilateral internal iliac lymph nodes. Bowel: Diverticulosis without acuity. Normal caliber loops of large and small bowel. Fundoplication type anatomy at the gastric cardia. Peritoneum and mesentery: No ascites, free air, or loculated fluid collection. No mesenteric inflammation. Abdominal wall: Normal. Urinary Bladder: Mural thickening and diverticulation. Reproductive organs: Enlarged prostate gland. Prostatic mural irregularity. Osseous structures: Tiny sclerotic focus in the posterior right iliac wing is indeterminate. Additional small sclerotic foci in lumbar and thoracic vertebral bodies are nonspecific. Resulting Agency Comment Unexpected Finding Kennedi Shaver MD IMG CT ORDERABLES documented in this encounter Visit Diagnoses Diagnosis Cervical lymphadenopathy Enlargement of lymph nodes Gastroesophageal reflux disease with esophagitis, unspecified whether hemorrhage documented in this encounter Administered Medications Inactive Administered Medications - up to 3 most recent administrations Medication Order MAR Action Action Date Dose Rate Site iohexol (OMNIPAQUE) 350 mg/mL solution 17,500 mg 17,500 mg (50 mL), Oral, ONCE PRN, 1 dose, Starting on Sat02/19/17 at 1632, Until Sat02/19/17 at 1420, Per Protocol, Warning Vesicant/Irritant Medication , Routine Given 02/19/2017 2:20 PM EDT 17,500 mg iohexol (OMNIPAQUE) 350 mg/mL solution 38,500 mg 38,500 mg (110 mL), Intravenous, ONCE PRN, 1 dose, Starting on Sat02/19/17 at 1632, Until Sat02/19/17 at 1633, Per Protocol, Warning Vesicant/Irritant Medication , Routine Given 02/19/2017 4:33 PM EDT 98 mLs documented in this encounter Care Teams Diesel Mechanic Farm Relationship Specialty Start Date End Date Kennedi Shaver MD [address] [place] [address] PCP - General 08/22/10 08/01/20 documented as of this encounter
--- OUTSIDE RECORDS SUMMARY | 2024-09-11 15:30 | XMS_ITS | Encounter Summary ---
Author Organization [facility] [place] [address] Care Team Providers Care Patient Transport Orderly Name Role Phone Kennedi Shaver MD Primary Care Provider [phone] Encounter Details Date Type Department Care Team (Late st Contact Info) Description 01/22/2017 Orders [place] [phone] Vero Larsen MD [facility] [place] [address] Soft tissue mass Social History Tobacco Use [...] (Latest Contact Info) Description 09/29/2024 4:30 PM [facility] [[email or web address] Hospital Encounter [place] [address] Lizet Wilkes MD [facility] [place] [address] 09/29/2024 4:30 PM EST - 09/29/2024 5:00 PM EST Surgery Gastroenterology at [place] [phone] Lizet Wilkes MD [facility] [place] [address] EGD, UPPER GI ENDOSCOPY (WRVU 2.09) 11/09/2024 10:00 AM EST Laboratory Appointment Lab at [facility] Hematology Oncology [address] [place] [phone] 11/09/2024 11:00 AM EST Office Visit Hematology and Oncology at [place] [phone] Faith Caba MD [facility] DR HEMATOLOGY [place] [address] 11/09/2024 12:00 PM EST Appointment Hematology and Oncology at [place] [phone] Scheduled Procedures Name Priority Associated Diagnoses Date/Ti me EGD, UPPER GI ENDOSCOPY (WRVU 2.09) Gastroesophageal reflux disease with esophagitis, unspecified whether hemorrhage 09/29/2024 4:30 PM EST documented as of this encounter Results * (ABNORMAL) US Soft [...] 04:28 pm) PATIENT INFO: ID #: ? [id number] ?: ??[birth year] (71 yrs) Name: ? CHIDI CARBONE ? Visit Date: 02/05/2017 04:01 pm PERFORMED BY: Performed By: ? Elise Ambriz RDMS Attending: ?Dorothy MOON, Diana Benjamin Referred By: ?VERO LARSEN MD Location: ? [place] SERVICE(S) PROVIDED: ??USTN - Soft Tissue Neck or Head - [id number] ? [id number] INDICATIONS: ??7cm left neck mass. please evaluate for ??character, and also location in regards to ??SCM. COMPARISON: No prior studies for comparison. -------- HISTORY: -------- Palpable area left neck for approx. one month per patient --------- FINDINGS: --------- Title: ? Ultrasound Report Findings: ?Multiple lymph nodes seen, largest at palp area ?measurin.91 x 1.62 x 2.76 cm. Resulting Agency Comment Unexpected Finding Vero Williamson MD IMG GEN ORDER MONALISA documented in this encounter Visit Diagnoses Diagnosis Soft tissue mass Disorders of soft tissue, unspecified Soft tissue mass Disorders of soft tissue, unspecified Gastroesophageal reflux disease with esophagitis, unspecified whether hemorrhage documented in this encounter Care Teams Patient Transport Orderly Relationship Specialty Start Date End Date Kennedi Shaver MD [address] [place] [address] PCP - General 08/22/10 08/01/20 documented as of this encounter
--- OUTSIDE RECORDS SUMMARY | 2024-09-11 15:30 | XMS_ITS | Encounter Summary ---
Author Organization [facility] [place] [address] Care Team Providers Care Cryolite Recovery Operator Name Role Phone Kennedi Shaver MD Primary Care Provider [phone] Encounter Details Date Type Department Care Team (Latest Contact Info) Description 11/16/2015 4:12 PM EST - 11/16/2015 11:59 PM EST Hospital Encounter Non-[place] [address] Syncope, unspecified syncope type Discharge Disposition: Home Social History Tobacco [...] 4:30 PM EST Hospital Encounter [place] [address] Lizet Wilkes MD [facility] [place] [address] 09/29/2024 4:30 PM EST - 09/29/2024 5:00 PM EST Surgery [place] [phone] Lizet Wilkes MD [facility] [place] [address] EGD, UPPER GI ENDOSCOPY (WRVU 2.09) 11/09/2024 10:00 AM EST Laboratory Appointment Lab at [facility] Hematology Oncology [address] [place] [phone] 11/09/2024 11:00 AM EST Office Visit Hematology [place] [phone] Faith Caba MD [facility] HEMATOLOGY [place] [address] 11/09/2024 12:00 PM EST Appointment Hematology [place] [phone] Scheduled Procedures Name Priority Associated Diagnoses Date/Ti me EGD, UPPER GI ENDOSCOPY (WRVU 2.09) Gastroesophageal reflux disease with esophagitis, unspecified whether hemorrhage 09/29/2024 4:30 PM EST documented as of this encounter Procedures Procedure Name Priority Date/Time Associated Diagnosis Comments ZIOPATCH Routine 11/16/2015 4:32 PM EST Syncope, unspecified syncope type documented in this encounter Results * Ziopatch (11/16/2015 4:32 PM EST) Anatomical Region Laterality Modality Other Narrative 12/06/2015 1:07 PM EST ZIOPATCH MONITOR Hookup Date: 11/16/2015 Monitor duration: 13 days, 15 hours (13 days, 14 hours after artifact removed) Predominant rhythm: Sinus Average heart rate: 74 beats per minute Minimum sinus rate: 41 bpm at 11:51 pm Maximum sinus rate: 145 bpm at 4:58 pm. Atrial ectopy: Rare (<1%) Rare single APCs, rare APC couplets, rare APC triplets 8 run(s) of SVT: the fastest consisting of 4 beats at 179 bpm, the longest consisting of 12 beats at 167 bpm. Ventricular ectopy: Rare (<1%) Rare single VPCs, rare VPC couplets, 0 VPC triplets No run(s) of ventricular tachycardia Bradycardia: There were no significant pauses. Symptoms: There were 5 triggered events and 5 diary entries (no symptoms, pounding, SOB - dizziness and lightheadedness were not time stamped). ??The triggered events and diary entries tended not to be coincident. ??Events were noted during sinus, sinus with single APCs, and sinus with single VPC.. Kennedi Shaver MD [facility]D [facility] documented in this encounter Visit Diagnoses Diagnosis Syncope, unspecified syncope type Gastroesophageal reflux disease with esophagitis, unspecified whether hemorrhage documented in this encounter Care Teams Cryolite Recovery Operator Relationship Specialty Start Date End Date Kennedi Shaver MD [facility] [address] [place] [address] PCP - General 08/22/10 08/01/20 documented as of this encounter
--- OUTSIDE RECORDS SUMMARY | 2024-09-11 15:30 | XMS_ITS | Encounter Summary ---
Author Organization [facility] Address [facility] [place] [address] Care Team Providers Care Welding Setter Name Role Phone Kennedi Shaver MD Primary Care Provider [phone] Encounter Details Date Type Department Care Team (Late st Contact Info) Description 10/20/2013 3:15 PM EST - 10/20/2013 4:00 PM EST [place] [phone] Nino Rocha MD [facility] [place] [address] UPPER GASTROINTESTINAL ENDOSCOPY,WITH BIOPSY SINGLE OR MULTIPLE (WRVU 2.39) Social History Tobacco Use Types Packs/Day Years [...] Sign Reading Time Taken Comments Blood Pressure 123/77 10/20/2013 4:04 PM EST Pulse 61 10/20/2013 4:04 PM EST Temperature 36.7 ??C (98.1 ??F) 10/20/2013 2:44 PM ES T Respiratory Rate 18 10/20/2013 4:04 PM EST Oxygen Saturation 96% 10/20/2013 4:04 PM EST Inhaled Oxygen Concentration - - Weight - - Height - - Body Mass Index - - documented in this encounter Discharge Instructions * Discharge Instructions* Bri Kim RN - 10/20/2013 4:08 PM EST You may have received medication before and /or during your procedure which effects judgement and reaction time. Do not drive, operate machinery , drink alcoholic beverages, or make important decisions for 24 hours. Be careful on stairs, as you may be unsteady on your feet. You may eat a regular diet as tolerated. Do not smoke if you are alone. IV site---slight redness or tenderness is normal. You may use a warm compress. If tenderness and redness increases of foul drainage occurs please contact your MD. * Patient Instructions* Nino Rocha MD - 10/20/2013 3:55 PM EST Please see Recommendations in the Provation procedure report which is documented in the procedural note in [facility]. * Attachments The following attachments cannot be sent through Care Everywhere. * UPPER GI ENDOSCOPY: WHAT TO EXPECT AT HOME (FRISIAN) documented in this encounter Medications at Time of Discharge Medication Sig Dispensed Refills Start Date End Date DUTASTERIDE/TAMSULOSIN HCL (ARNOL ORAL) Take by mouth daily. ZOLPIDEM TARTRATE (AMBIEN ORAL) 12/05/2010 10/04/2020 pantoprazole (PROTONIX) 40 mg tablet 12/05/2010 04/19/2015 documented as of this encounter H&P Notes * Nino oRcha MD - 10/20/2013 3:22 PM EST Gastroenterology and Hepatology Pre-Procedure History and Physical Exam Procedure: Upper endoscopy and RFA Robles's. Hx HGD Indication: Hx HGD Robles's, s/p ablation with residula Patient Active Problem List Diagnosis Code ??? GERD (gastroesophageal reflux disease) 530.81 EXAM: HEENT: Airway examined, oropharynx clear LUNGS: Clear to auscultation HEART: Regular rate and rhythm, normal S1, S2 ABDOMEN: Normal bowel sounds, soft, non tender, non distended, A/P Proceed with the planned endoscopic procedure. Risks and benefits of the procedure explained to the patient. Consent signed. documented in this encounter Miscellaneous Notes * Miscellaneous - Provider, Scanning - 10/20/2013 5:01 PM EST * Op Note - Nino Rocha MD - 10/20/2013 3:53 PM EST [facility] Operative Note Patient Name: Magdalena Horn : [id number] MR#: [id number] Case Date: 10/20/2013 Surgeon: Surgeon(s) and Role: * Nino Rocha MD - Primary Preoperative diagnosis: Robles's esophagus, hx HGD s/p ablation, with recurrence Postoperative diagnosis: Same, with active esophagitis Procedure(s): UPPER GASTROINTESTINAL ENDOSCOPY,WITH BIOPSY SINGLE OR MULTIPLE Full procedure note is documented under the Procedure section of [facility]. documented in this encounter Plan of Treatment Upcoming Encounters Date Type Department Care Team (Latest Contact Info) Description 09/29/2024 4:30 PM EST Hospital Encounter [place] [phone] Lizet Wilkes MD [facility] [place] [address] 09/29/2024 4:30 PM EST - 09/29/2024 5:00 PM EST [place] [phone] Lizet Wilkes MD [facility] [place] [address] EGD, UPPER GI ENDOSCOPY (WRVU 2.09) 11/09/2024 10:00 AM EST Laboratory Appointment Lab at [facility] Hematology Oncology [address] [place] [phone] 11/09/2024 11:00 AM EST Office Visit H[place]ology [place] [phone] Faith Caba MD [facility] [place] [address] 11/09/2024 12:00 PM EST Appointment Hematology [place] [phone] Scheduled Procedures Name Priority Associated Diagnoses Date/Ti me EGD, UPPER GI ENDOSCOPY (WRVU 2.09) Gastroesophageal reflux disease with esophagitis, unspecified whether hemorrhage 09/29/2024 4:30 PM EST documented as of this encounter Procedures Procedure Name Priority Date/Time Associated Diagnosis Comments SURGICAL PATHOLOGY REPORT Routine 10/20/2013 4:00 PM EST SPECIMEN TO PATHOLOGY Routine 10/20/2013 4:00 PM EST SPECIMEN TO PATHOLOGY Routine 10/20/2013 4:00 PM EST UPPER GASTROINTESTINAL ENDOSCOPY,WITH BIOPSY SINGLE OR MULTIPLE (WRVU 2.39) 10/20/2013 3:21 PM EST 3 MO FU retreatment [consult] UPPER GI ENDOSCOPY Routine 10/20/2013 3: 09 PM EST documented in this encounter Results * Surgical Pathology Report (10/20/2013 4:00 PM EST) Final Diagnosis ? [facility] ? Provider: ?? NINO ROCHA ??Pt. Name: ?? MAGDALENA HORN ?I ? Acc #: ?[id number] ?Pt. ? Col Date: ?? 10/20/2013 ? /Sex: ?1945,(67 years),Male ? Rec Date: ?? 10/20/2013 ? LOC: ?4T ? SURGICAL PATHOLOGY ? ---Pathologic Diagnosis--- ? A - Esophageal healed ulcer bed, biopsy: ? Squamous mucosa with patchy active esophagitis. ? B - Esophagus at 35 to 33 cm, biopsy: ? Robles's esophagus, negative for dysplasia. ? CR-0 ? 10/22/13 ? BJM ? 10/22/13 Verified by: ? Jostin Joiner MD ? Pathologist ? (Electronic Signature) ? The attending pathologist whose signature appears on this report has ? reviewed all diagnostic slides and has edited the gross and/or ? microscopic portion of the report in rendering the final pathologic ? diagnosis. ? ---Gross Description--- ? A - Labeled/Fixativ e: Esophageal healed ulcer bed at 35-36 cm, formalin. ? Quantity/Size: Five, 0.2-0.5 cm ? Tissue Description: Chamorro tissues. ? Sections/Proces sing: (T1) ? B - Labeled/Fixativ e: Multiple Robles's islands between 35 and 33 cm, ? formalin. ? Quantity/Size: Five, 0.2-0.6 cm. ? Tissue Description: Chamorro tissues. ? Sections/Proces sing: (T1) ??cjl ? ---Clinical Information--- ? Specimen Submitted: ? A - Esophageal healed ulcer bed at 35 to 36cm ? B - Multiple robles's islands between 35 and 33cm ? Clinical History: ? HX HGD Robles's, S/P lesion with recurrence ? Clinical Diagnosis: ? Not provided 10/22/2013 5:[address] [facility] GI Biopsy 10/20/2013 4:00 PM EST 10/20/2013 4:00 PM EST GI Biopsy 10/20/2013 4:00 PM EST 10/20/2013 4:00 PM EST Nino Zarate MD PATHOLOGY/CYTOLO GY ORDERABLES Performing Organization Address [facility] de Phone Number [facility] [place] [address] * Specimen to Pathology (surgical or derm) (10/20/2013 4:00 PM EST) AP Specimen 10/20/2013 4:00 PM EST 10/20/2013 4:01 PM EST Narrative ROSALINDANER TIMMAKIUM - 10/20/2013 4:01 PM EST Specimen requisition ordered. ??Separate Pathology report to follow Nino Zarate MD PATHOLOGY/CYTOLO GY ORDERABLES Performing Organization Address [facility] de Phone Number TJ TIMGEO * Specimen to Pathology (surgical or derm) (10/20/2013 4:00 PM EST) AP Specimen 10/20/2013 4:00 PM EST 10/20/2013 4:01 PM EST Narrative CERNER MILLENNIUM - 10/20/2013 4:00 PM EST Specimen requisition ordered. ??Separate Pathology report to follow Nino Zarate MD PATHOLOGY/CYTOLO GY ORDERABLES Performing Organization Address [facility]/State/ZIP Co de Phone Number TJ DUMONTENNIUM * UPPER GI ENDOSCOPY (10/20/2013 3:09 PM EST) Pathologist [facility] UPPER GI ENDOSCOPY [facility] Endoscopy Patient Name: Magdalena Horn ? Procedure Date: 10/20/2013 3:09 PM ? Date of : 1945 ? Age: 67 ? Order #: [id number] ? Procedure: ? Upper GI endoscopy Indications: ? Follow-up of Robles's esophagus Providers: ? Nino Rocha MD, Dinora ? Mary, RN, Bri Lozada, Beauty Advisor Referring MD: ?Kennedi Shaver MD Medicines: ? Midazolam 4 mg IV, Fentanyl 200 ? micrograms IV, Diphenhydramine 25 mg ? IV, Benzocaine spray Complications: ? No immediate complications. Procedure: ? Pre-Anesthesia Assessment: ? - Prior to the procedure, a History ? and Physical was performed, and ? patient medications, allergies and ? sensitivities were reviewed. The ? patient's tolerance of previous ? anesthesia was reviewed. ? - The risks and benefits of the ? procedure and the sedation options ? and risks were discussed with the ? patient. All questions were answered ? and informed consent was obtained. ? - Mental Status Examination: alert ? and oriented. ? - Airway Examination: normal ? oropharyngeal airway and neck ? mobility. ? - Respiratory Examination: clear to ? auscultation. ? - CV Examination: normal. ? - ASA Grade Assessment: II - A ? patient with mild systemic disease. ? - After reviewing the risks and ? benefits, the patient was deemed in ? satisfactory condition to undergo the ? procedure. ? - The anesthesia plan was to use ? moderate sedation/analgesia ? (conscious sedation). ? - Immediately prior to administration ? of medications, the patient was ? re-assessed for adequacy to receive ? sedatives. ? - Sedation was administered by an ? endoscopy nurse. The sedation level ? attained was moderate. ? - The heart rate, respiratory rate, ? oxygen saturations, blood pressure, ? adequacy of pulmonary ventilation, ? and response to care were monitored ? throughout the procedure. ? - The physical status of the patient ? was re-assessed after the procedure. ? The procedure, indications, benefits, ? risks and alternatives were explained ? to the patient. Specifically ? discussed were potential ? complications including, but not ? limited to, bleeding, perforation, ? infection, missing a cancer, and ? adverse medication reactions. The ? Endoscope was introduced through the ? mouth, and advanced to the second ? part of duodenum. The patient ? tolerated the procedure well. The ? upper GI endoscopy was accomplished ? without difficulty. ? Findings: ? There were esophageal mucosal changes secondary to ? established Robles's disease, extending from the ? upper extent of the gastric folds which were at 36 cm ? from the incisors to the Z-line which was at 33 cm ? from the incisors. Scattered islands of ? salmon-colored mucosa were present from 33 to 36 cm. ? The maximum longitudinal extent of these esophageal ? mucosal changes was 3 cm in length. Biopsies were ? taken with a cold forceps for histology. This amount ? of islands of Robles's is increased, in that they ? were not present at last exam. There are some new ? erosions noted, and friability of the healed distal ? esophageal ulcer indicating ongoing uncontrolled ? reflux. ? A large hiatus hernia was found. The proximal extent ? of the gastric folds (end of tubular esophagus) was ? 35 cm from the incisors. The hiatal narrowing was 42 ? cm from the incisors. ? Multiple 3 to 12 mm sessile polyps were found in the ? gastric fundus and in the gastric body. ? The examined duodenum was normal. ? Impression: ?- Esophageal mucosal changes ? secondary to established Robles's ? disease. Biopsied. There is active ? esophagitis, and this is a ? contra-indication to ablation today. ? I believe he needs an anti-reflux ? surgical procedure, and then with ? control of the reflux we may be able ? to ablate the remaining Robles's ? mucosa. ? - Hiatus hernia. ? - Multiple gastric polyps. ? - Normal examined duodenum. Recommendation: ?- Continue present medications. ? - Refer to a general surgeon (Trus or ? [place]) at appointment to be ? scheduled to discuss fidel Carson ? fundoplication. ? - Repeat the upper endoscopy for ? treatment and then surveillance based ? on pathology results, and after ? anti-reflux procedure. ? Nino Rocha MD 10/20/2013 4:08 PM This report has been signed electronically. Number of Addenda: 0 Note Initiated On: 10/20/2013 3:09 PM PROVATION 10/20/2013 3:09 PM EST Kennedi Shaver MD GENERAL SURGICAL ORD ERABLES PROVATION documented in this encounter Visit Diagnoses Not on filedocumented in this encounter Administered Medications Inactive Administered Medications - up to 3 most recent administrations Medication Order MAR Action Action Date Dose Rate Site diphenhydrAMINE (BENADRYL) injection ONCE PRN, Starting on Sat10/20/13 at 1527, Until Sat10/20/13 at 1712, Itching, Intra-Operative (Intra-Procedure), Routine Given 10/20/2013 3:27 PM EST 25 mg fentaNYL 50mcg/mL injection ONCE PRN, Starting on Sat10/20/13 at 1527, Until Sat10/20/13 at 1712, Pain, Intra-Operative (Intra-Procedure), Routine Given 10/20/2013 3:39 PM EST 50 mcg Given 10/20/2013 3:30 PM EST 50 mcg Given 10/20/2013 3:27 PM EST 100 mcg midazolam (PF) (VERSED) 1 mg/mL injection ONCE PRN, Starting on Sat10/20/13 at 1527, Until Sat10/20/13 at 1712, Sleep, Intra-Operative (Intra-Procedure), Routine Given 10/20/2013 3:39 PM EST 1 mg Given 10/20/2013 3:30 PM EST 1 mg Given 10/20/2013 3:27 PM EST 2 mg documented in this encounter Active and Recently Administered Medications Times are shown in EST. PRN Medication Order 10/18/2013 10/19/2013 10/20/2013 diphenhydrAMINE (BENADRYL) injection (CANCELED) ONCE PRN, Starting on Sat10/20/13 at 1527, Until Sat10/20/13 at 1712, Itching, Intra-Operative (Intra-Procedure), Routine 1527 (Given - Provid er: Dinora Hernandez RN - Comment: med for sedation) fentaNYL 50mcg/mL injection (CANCELED) ONCE PRN, Starting on Sat10/20/13 at 1527, Until Sat10/20/13 at 1712, Pain, Intra-Operative (Intra-Procedure), Routine 1527 (Given - Provid er: Dinora Hernandez RN - Comment: med for sedation)1530 (Given - Provider: Dinora Hernandez RN)1539 (Given - Provider: Dinora Hernandez RN) midazolam (PF) (VERSED) 1 mg/mL injection (CANCELED) ONCE PRN, Starting on Sat10/20/13 at 1527, Until Sat10/20/13 at 1712, Sleep, Intra-Operative (Intra-Procedure), Routine 1527 (Given - Provid er: Dinora Hernandez RN - Comment: med for sedation)1530 (Given - Provider: Dinora Hernandez RN)1539 (Given - Provider: Dinora Hernandez RN) documented in this encounter Care Teams Welding Setter Relationship Specialty Start Date End Date Kennedi Shaver MD [facility] [address] [place] [id number] PCP - General 08/22/10 08/01/20 documented as of this encounter
--- OUTSIDE RECORDS SUMMARY | 2024-09-11 15:30 | XMS_ITS | Encounter Summary ---
Author Organization Formerly [facility] [place] [address] Care Team Providers Care Counter Caser Name Role Phone Kennedi Shaver MD Primary Care Provider [phone] Encounter Details Date Type Department Care Team (Latest Contact Info) Description 05/12/2013 12:53 PM EDT - 05/12/2013 4:53 PM EDT Hospital En[place] [address] Nino Rocha MD [facility] [place] [address] Discharge Disposition: Home Social History Tobacco Use [...] Sign Reading Time Taken Comments Blood Pressure 119/72 05/12/2013 3:26 PM EDT Pulse 58 05/12/2013 3:26 PM EDT Temperature - - Respiratory Rate 16 05/12/2013 3:26 PM EDT Oxygen Saturation 96% 05/12/2013 3:26 PM EDT Inhaled Oxygen Concentration - - Weight - - Height - - Body Mass Index - - documented in this encounter Discharge Instructions * Discharge Instructions* Ragini Faria, RN - 05/12/2013 3:30 PM EDT UPPER GI ENDOSCOPY WHAT TO EXPECT AFTER THE PROCEDURE After the test you may feel a little more gassy or bloated than usual, this is normal. ACTIVITY Because of the sedation that you received Your judgement and reaction time are affected ?? Go home and rest quietly for the remainder of the day. You may resume your normal activities tomorrow. ?? Change from one position to the next slowly. You may lose your balance unexpectedly ?? Be careful on stairs, as you may be unsteady on your feet. FOR THE NEXT 24 HRS ?? DO NOT DRIVE OR OPERATE ANY MACHINERY ?? DO NOT DRINK ALCOHOLIC BEVERAGES ?? DO NOT SIGN LEGAL DOCUMENTS ?? If you are a smoker: DO NOT SMOKE WHILE YOU ARE ALONE Diet ?? Start by eating small portions of foods that ordinarily will not upset your stomach. Be gentle with what you choose to start with. ?? Drink plenty of fluids ( unless otherwise told not to) Medications You may have a mild sore throat. Ice chips, popsicles, over the counter throat lozenges or spray may help numb your throat. This procedure should not cause a fever. IV SITE-- slight redness or tenderness is normal, you can use warm compresses if you get concerned.If the tenderness +/or redness increases or foul drainage and a red streak occurs, please contact your PCP immediately. WHEN SHOULD YOU CALL FOR HELP? Call 911 anytime you think that you need emergency care. For example, call if: You passed out (lost consciousness). You cough up blood. You vomit blood or what looks like coffee grounds. You pass maroon or very bloody stools. Call your healthcare provider or seek immediate medical attention if: You have trouble swallowing. You have belly pain. Your stools are black or tarlike or have streaks of blood. You are sick to your stomach or cannot keep fluids down. Watch closely for changes in your health, and be sure to contact your doctor IF Your throat still hurts after a day or two You do not get better as expected. Saturday-Saturday Clinic [phone] 8a-5p Same Day Endo [phone] 7a-8p Otherwise contact [phone] and ask to speak to the rice drier tactical air control party manager Follow-up care is a bello part of your treatment and safety. Be sure to make and go to all appointments, and call your doctor if you are having problems. Instructions have been reviewed and patient expresses understanding * Patient Instructions* Nino Rocha MD - 05/12/2013 3:22 PM EDT Please see Recommendations in the Provation procedure report which is documented in the procedural note in E-DH. documented in this encounter Medications at Time of Discharge Medication Sig Dispensed Refills Start Date End Date DUTASTERIDE/TAMSULOSIN HCL (ARNOL ORAL) Take by mouth daily. ZOLPIDEM TARTRATE (AMBIEN ORAL) 12/05/2010 10/04/2020 pantoprazole (PROTONIX) 40 mg tablet 12/05/2010 04/19/2015 documented as of this encounter H&P Notes * Nino Rocha MD - 05/12/2013 2:41 PM EDT Gastroenterology and Hepatology Pre-Procedure History and Physical Exam Procedure: Upper endoscopy and biopsies Indication: Robles's s/p ablation Patient Active Problem List Diagnosis Code ??? [...] encounter Miscellaneous Notes * Op Note - Nino Rocha MD - 05/12/2013 3:21 PM EDT [facility] [place]ative Note Patient Name: Magdalena Horn : [id number] MR#: [id number] Case Date: 05/12/2013 Surgeon: Surgeon(s) and Role: * Nino Rocha MD - Primary Preoperative diagnosis: Robles's esophagus Postoperative diagnosis: Robles's esophagus, biopsies taken Procedure(s): UPPER GI ENDOSCOPY UPPER GASTROINTESTINAL ENDOSCOPY,WITH BIOPSY SINGLE OR MULTIPLE Full procedure note is documented under the Procedure section of eDH. * Miscellaneous - Provider, Scanning - 05/12/2013 2:25 PM EDT documented in this encounter Plan of Treatment Upcoming Encounters Date Type Department Care Team (Latest Contact Info) Description 09/29/2024 4:30 PM EST Hospital Encounter Gastroenterology at [place] [phone] Lizet Wilkes MD [facility] [place] [place] [address] 09/29/2024 4:30 PM EST - 09/29/2024 5:00 PM EST [place] [address] Lizet Wilkes MD [facility] [place] [address] EGD, UPPER GI ENDOSCOPY (WRVU 2.09) 11/09/2024 10:00 AM EST Laboratory Appointment Lab at [facility] [place] On[place] [address] [place] [phone] 11/09/2024 11:00 AM EST Office Visit Hematology [place] [phone] Faith Caba MD [facility] [place] [address] 11/09/2024 12:00 PM EST Appointment Hematology and Oncology at [facility] [place] [address] Scheduled Procedures Name Priority Associated Diagnoses Date/Ti me EGD, UPPER GI ENDOSCOPY (WRVU 2.09) Gastroesophageal reflux disease with esophagitis, unspecified whether hemorrhage 09/29/2024 4:30 PM EST documented as of this encounter Procedures Procedure Name Priority Date/Time Associated Diagnosis Comments SURGICAL PATHOLOGY REPORT Routine 05/12/2013 3:25 PM EDT SPECIMEN TO PATHOLOGY Routine 05/12/2013 3:25 PM EDT SPECIMEN TO PATHOLOGY Routine 05/12/2013 3:25 PM EDT SPECIMEN TO PATHOLOGY Routine 05/12/2013 3:25 PM EDT SPECIMEN TO PATHOLOGY Routine 05/12/2013 3:25 PM EDT SPECIMEN TO PATHOLOGY Routine 05/12/2013 3:25 PM EDT SPECIMEN TO PATHOLOGY Routine 05/12/2013 3:25 PM EDT UPPER GASTROINTESTINAL ENDOSCOPY,WITH BIOPSY SINGLE OR MULTIPLE (WRVU 2.39) 05/12/2013 2:41 PM EDT 3 MO FU retreatment [consult] UPPER GI ENDOSCOPY 05/12/2013 2: 41 PM EDT 3 MO FU retreatment [consult] UPPER GI ENDOSCOPY Routine 05/12/2013 2: 27 PM EDT documented in this encounter Results * Surgical Pathology Report (05/12/2013 3:25 PM EDT) Surgical Pathology Report ? [facility] ? Provider: ?? NINO ROCHA ??Pt. Name: ?? MAGDALENA HORN ?I ? Acc #: ?[id number] ?Pt. ? Col Date: ?? 05/12/2013 ? /Sex: ?1945,(67 years),Male ? Rec Date: ?? 05/12/2013 ? LOC: ?4T ? SURGICAL PATHOLOGY ? ---Pathologic Diagnosis--- ? Endoscopic biopsies - ? A. Esophageal squamous mucosa with scattered intraepithelial eosinophils, ? suggestive of reflux. No intestinal metaplasia is seen. ? B. Esophageal squamous mucosa with scattered intraepithelial eosinophils, ? suggestive of reflux. No intestinal metaplasia is seen. ? C. Squamous esophageal and specialized metaplastic columnar mucosa ? consistent with Robles's esophagus. No dysplasia is seen. ? D. Squamous esophageal and focal specialized metaplastic columnar mucosa ? consistent with Robles's esophagus. No dysplasia is seen. ? E. Esophageal squamous mucosa with scattered intraepithelial eosinophils, ? suggestive of reflux. No intestinal metaplasia is seen. ? F. Esophageal squamous mucosa with scattered intraepithelial eosinophils, ? suggestive of reflux. No intestinal metaplasia is seen. ? CR-0 ? 05/13/13 ? AAS ? 05/13/13 Verified by: ? Mely Ayala MD ? Pathologist ? (Electronic Signature) ? The attending pathologist whose signature appears on this report has ? reviewed all diagnostic slides and has edited the gross and/or ? microscopic portion of the report in rendering the final pathologic ? diagnosis. ? ---Gross Description--- ? A - Labeled/Fixative: Esophagus 30-29 cm, formalin. ? Quantity/Size: Multiple, ranging from 0.1-0.4 cm. ? Tissue Description: Soft, pink tissues. ? Sections/Processin g: (T2) ? B - Labeled/Fixative: Esophagus 28-27 cm, formalin. ? Quantity/Size: Multiple, ranging from 0.2-0.5 cm. ? Tissue Description: Soft, pink tissues. ? [facility] ? Provider: ?? NINO ROCHA ??Pt. Name: ?? MAGDALENA HORN ?I ? Acc #: ?[id number] ?Pt. ? Col Date: ?? 05/12/2013 ? /Sex: ?1945,(67 years),Male ? Rec Date: ?? 05/12/2013 ? LOC: ?4T ? Sections/Processin g: (T2) ??sns ? SURGICAL PATHOLOGY ? C - Labeled/Fixative: Targeted biopsies from 35-36 cm, formalin. ? Quantity/Size: Multiple, averaging 0.2 cm. ? Tissue Description: Soft, bashir-white tissue. ? Sections/Processin g: (T2) ? D - Labeled/Fixative: Esophagus random 36-35 cm, formalin. ? Quantity/Size: Multiple, ranging 0.1-0.4 cm. ? Tissue Description: Soft, vital-pink tissue. ? Sections/Processin g: (T2) ? E - Labeled/Fixative: Esophagus 34-33 cm, formalin. ? Quantity/Size: Four, 0.1-0.3 cm. ? Tissue Description: Soft, bashir-white tissue. ? Sections/Processin g: (T1) ? F - Labeled/Fixative: Esophagus 30-31 cm, formalin. ? Quantity/Size: Multiple, averaging 0.4 cm. ? Tissue Description: Soft, bashir-white tissue. ? Sections/Processin g: (T2) ? ---Clinical Information--- ? Specimen Submitted: ? A - Esophagus 30 to 29 cm ? B - Esophagus 28 to 27 cm ? C - Targeted biopsies from 35 to 36 cm ? D - Esophagus random 36 to 35 cm ? E - Esophagus 34 to 33 cm ? F - Esophagus 32 to 31 ? Clinical History: ? 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 Clinical Diagnosis: ? Same TJ JUNIORIUM 05/12/2013 3:25 PM EDT Nino Zarate MD PATHOLOGY/CYTOLO GY ORDERABLES [facility] * Specimen to Pathology (surgical or derm) (05/12/2013 3:25 PM EDT) AP Specimen 05/12/2013 3:25 PM EDT 05/12/2013 3:25 PM EDT [facility]ative [facility] - 05/12/2013 3:25 PM EDT Specimen requisition ordered. ??Separate Pathology report to follow Nino Zarate MD PATHOLOGY/CYTOLO GY ORDERABLES [facility] * Specimen to Pathology (surgical or derm) (05/12/2013 3:25 PM EDT) AP Specimen 05/12/2013 3:25 PM EDT 05/12/2013 3:25 PM EDT Narrative [facility] - 05/12/2013 3:25 PM EDT Specimen requisition ordered. ??Separate Pathology report to follow Nino Zarate MD PATHOLOGY/CYTOLO GY ORDERABLES Performing Organization Address [facility] Co de Phone Number TJ MCBRIDE * Specimen to Pathology (surgical or derm) (05/12/2013 3:25 PM EDT) AP Specimen 05/12/2013 3:25 PM EDT 05/12/2013 3:25 PM EDT Narrative TJ JUNIORIUM - 05/12/2013 3:25 PM EDT Specimen requisition ordered. ??Separate Pathology report to follow Nino Zarate MD PATHOLOGY/CYTOLO GY ORDERABLES Performing Organization Address [facility] de Phone Number TJ MCBRIDE * Specimen to Pathology (surgical or derm) (05/12/2013 3:25 PM EDT) AP Specimen 05/12/2013 3:25 PM EDT 05/12/2013 3:25 PM EDT Narrative TJ JUNIORIUM - 05/12/2013 3:25 PM EDT Specimen requisition ordered. ??Separate Pathology report to follow Nino Zarate MD PATHOLOGY/CYTOLO GY ORDERABLES Performing Organization Address [facility] de Phone Number TJ MCBRIDE * Specimen to Pathology (surgical or derm) (05/12/2013 3:25 PM EDT) AP Specimen 05/12/2013 3:25 PM EDT 05/12/2013 3:25 PM EDT Narrative TJ DUMONTENNIUM - 05/12/2013 3:25 PM EDT Specimen requisition ordered. ??Separate Pathology report to follow Nino Zarate MD PATHOLOGY/CYTOLO GY ORDERABLES Performing Organization Address [facility] de Phone Number TJ JUNIORIUM * Specimen to Pathology (surgical or derm) (05/12/2013 3:25 PM EDT) AP Specimen 05/12/2013 3:25 PM EDT 05/12/2013 3:25 PM EDT Narrative TJ DUMONTENNIUM - 05/12/2013 3:25 PM EDT Specimen requisition ordered. ??Separate Pathology report to follow Nino Zarate MD PATHOLOGY/CYTOLO GY ORDERABLES Performing Organization Address [facility]/State/ZIP Co de Phone Number TJ MCBRIDE * UPPER GI ENDOSCOPY (05/12/2013 2:27 PM EDT) UPPER GI ENDOSCOPY [facility] Endoscopy ___ Patient Name: Magdalena Horn ? Procedure Date: 05/12/2013 2:27 PM ? Date of : 1945 ? Age: 67 ? Order #: [id number] ? ___ Procedure: ? Upper GI endoscopy Indications: ? Follow-up of Robles's esophagus Providers: ? Nino Rocha MD, Jose Jules ? NUZHAT Alanis, Deborah Kevin, ? Plaster Machine Tender Referring MD: ?Kennedi Shaver MD Medicines: ? Sedation Required Anesthesia Staff ? Assistance Complications: ? No immediate complications. ___ Procedure: ? Pre-Anesthesia Assessment: ? - Prior [...] patient with mild systemic disease. ? - Anesthesia under the supervision of ? an anesthesiologist using IV propofol ? was determined to be medically ? necessary for this procedure based on ? review of the patient's medical ? history, medications, and prior ? anesthesia history. ? The procedure, indications, benefits, ? risks [...] accomplished ? without difficulty. ? Findings: ? The Z-line was regular and was found 35 to 36 cm from ? the incisors. Biopsies were taken with a cold forceps ? for histology from targeted erosive chnges and one ? small island of robles's at 5 to 36 cm. Biopsied ? from 36 to 27 cm. ? A medium-sized hiatus hernia was found. The proximal ? extent of the gastric folds (end of tubular ? esophagus) was 35 cm from the incisors. The hiatal ? narrowing was 42 cm from the incisors. ? The duodenal bulb, first part of the duodenum and 2nd ? part of the duodenum were normal. ? Impression: ?- Z-line regular, 35 to 36 cm from ? the incisors. This area was was ? biopsied as above. ? - Hiatus hernia. ? - Normal duodenal bulb, first part of ? the duodenum and 2nd part of the ? duodenum. Recommendation: ?- Await pathology results. ? - Continue present medications. ? - Strong consideration for ? anti-reflux surgery before final ? ablation should occur. ? Nino Rocha MD 05/12/2013 3:46 PM This report has been signed electronically. Number of Addenda: 0 Note Initiated On: 05/12/2013 2:27 PM PROVATION 05/12/2013 2:27 PM EDT Kennedi Shaver MD GENERAL SURGICAL ORD ERABLES PROVATION documented in this encounter Visit Diagnoses Not on filedocumented in this encounter Administered Medications Inactive Administered Medications - up to 3 most recent administrations Medication Order MAR Action Action Date Dose Rate Site lactated ringers infusion 100 mL/hr, Intravenous, CONTINUOUS, Starting on Sat05/12/13 at 1415, Until Sat05/12/13 at 1853, Endoscopy (Day of Procedure) New Bag 05/12/2013 2:40 PM EDT mL New Bag 05/12/2013 2:05 PM EDT 100 mL/hr 100 mL/hr documented in this encounter Active and Recently Administered Medications Times are shown in EDT. Continuous Medication Order 05/10/2013 05/11/2013 05/12/2013 lactated ringers infusion (CANCELED) 100 mL/hr, Intravenous, CONTINUOUS, Starting on Sat05/12/13 at 1415, Until Sat05/12/13 at 1853, Endoscopy (Day of Procedure) 1405 (New Bag - Prov ider: Ragini Faria RN)1440 (New Bag - Provider: Debra Soares CRNA) documented in this encounter Care Teams Counter Caser Relationship Specialty Start Date End Date Kennedi Shaver MD [address] [place] [address] [address] [place] [address] PCP - General 08/22/10 08/01/20 documented as of this encounter
--- OUTSIDE RECORDS SUMMARY | 2024-09-11 15:30 | XMS_ITS | Encounter Summary ---
Author Organization [facility] [place] [address] Care Team Providers Care Washer Assembler Name Role Phone Kennedi Shaver MD Primary Care Provider [phone] Encounter Details Date Type Department Care Team (Latest Contact Info) Description 04/19/2015 1:49 PM EDT - 04/19/2015 6:07 PM EDT Hospital Encounter [place] [address] Nino Rocha MD [facility] [place] [address] Discharge Disposition: Home Social History Tobacco Use [...] Sign Reading Time Taken Comments Blood Pressure 117/71 04/19/2015 4:53 PM EDT Pulse 61 04/19/2015 4:53 PM EDT Temperature - - Respiratory Rate 20 04/19/2015 4:53 PM EDT Oxygen Saturation 98% 04/19/2015 4:53 PM EDT Inhaled Oxygen Concentration - - Weight - - Height - - Body Mass Index - - documented in this encounter Discharge Instructions * Discharge Instructions* Jodi Acharya RN - 04/19/2015 4:43 PM EDT UPPER GI ENDOSCOPY with THERMAL ABLATION WHAT TO EXPECT AFTER THE PROCEDURE After [...] NOT SMOKE WHILE YOU ARE ALONE Diet Start with clear liquids and progress to full liquids over the next 24 to 36 hours. Then go On To soft for next 3-4 days. If all is well then you can go to as tolerated ?? Drink plenty of fluids ( unless otherwise told not to) Medications You may have a mild sore throat and some chest discomfort. Ice chips, popsicles, over the counter throat lozenges, tylenol (acetaminophen) or spray may help numb your throat or control the discomfort. If pain medication has been prescribed, use it as indicated. The sore throat should resolve on it's own. This procedure should not cause a fever. [...] not get better as expected. Saturday-Saturday Clinic [phone] 8a-5p Same Day Endo [phone] 7a-8p Otherwise contact [phone] and ask to speak to the technical research scientist business continuity management director Follow-up care is a bello part of your treatment and safety. Be sure to make and go to all appointments, and call your doctor if you are having problems. Instructions have been reviewed and patient expresses understanding * Patient Instructions* Nino Rocha MD - 04/19/2015 4:33 PM EDT Please see Recommendations in the Provation procedure report which is documented in the procedural note in E-DH. documented in this encounter Medications at Time of Discharge Medication Sig Dispensed Refills Start Date End Date sildenafiL (Viagra) 50 mg tablet Take 50 mg by mouth as needed. 06/14/2014 acetaminophen (TYLENOL) 650 mg/20.3 mL oral liquid Take 20.3 mLs by mouth every 4 hours as needed. 03/09/2014 06/29/2019 DUTASTERIDE/TAMSULOSIN HCL (ARNOL ORAL) Take by mouth daily. ZOLPIDEM TARTRATE (AMBIEN ORAL) 12/05/2010 10/04/2020 documented as of this encounter Progress Notes * Jake Todd RN - 10/22/2014 9:38 AM EST ENDOSCOPY PATIENT HISTORY Name: MAGDALENA HORN : 1945 Age: 68 y.o. Address: [address] [address] (home) Mobile: No relevant phone numbers on file. Referring Provider: Kennedi Shaver Referral Procedure: EGD Sedation type: per anesthesia Allergies: No Known Allergies Problem list: Patient Active Problem List Diagnosis Code ??? GERD (gastroesophageal reflux disease) 530.81 Past Medical History: No past medical history on file. Past Surgical History: Past Surgical History Procedure Laterality Date ??? Upper gi endoscopy, exam 02/13/2011 UPPER GI ENDOSCOPY performed by NINO ROCHA I at [facility] ENDOSCOPY ??? Upper gi endoscopy, biopsy 11/27/2011 UPPER GASTROINTESTINAL ENDOSCOPY,WITH BIOPSY SINGLE OR MULTIPLE performed by NINO ROCHA I at [facility] ENDOSCOPY ??? Upper gi endoscopy, tumor ablatn 04/22/2012 ENDOSCOPY, UPPER GI, W\ABLATION TUMOR\POLYP\LESION performed by NINO ROCHA I at [facility] ENDOSCOPY ??? Upper gi endoscopy, biopsy 04/22/2012 UPPER GASTROINTESTINAL ENDOSCOPY,WITH BIOPSY SINGLE OR MULTIPLE performed by NINO ROCAH I at [facility] ENDOSCOPY ??? Upper gi endoscopy, exam 05/12/2013 UPPER GI ENDOSCOPY performed by Nino Rocha MD at [facility] ENDOSCOPY ??? Upper gi endoscopy, biopsy 05/12/2013 UPPER GASTROINTESTINAL ENDOSCOPY,WITH BIOPSY SINGLE OR MULTIPLE performed by Nino Rocha MD at [facility] ENDOSCOPY ??? Upper gi endoscopy, biopsy 10/20/2013 UPPER GASTROINTESTINAL ENDOSCOPY,WITH BIOPSY SINGLE OR MULTIPLE performed by Nino Rocha MD at [facility] ENDOSCOPY ??? Lap, esophagogast fundoplasty 03/08/2014 LAPAROSCOPIC MODESTO FUNDOPLASTY performed by Surendra Garcia MD at [facility] MAIN OR Medications: Prior to Admission medications Medication Sig Start Date End Date Taking? Authorizing Provider acetaminophen (TYLENOL) 650 mg/20.3 mL oral liquid Take 20.3 mLs by mouth every 4 hours as needed. 03/09/14 Maria Isabel Pandey MD DUTASTERIDE/TAMSULOSIN HCL (ARNOL ORAL) Take by mouth daily. Provider, Historical ZOLPIDEM TARTRATE (AMBIEN ORAL) 12/05/10 pantoprazole (PROTONIX) 40 mg tablet 12/05/10 documented in this encounter H&P Notes * Nino Rocha MD - 04/19/2015 3:17 PM EDT Gastroenterology and Hepatology Pre-Procedure History and Physical Exam Procedure: Upper endoscopy and colonoscopy Indication: Sol's esophagus, hx colon polyp Patient Active Problem List Diagnosis Code ??? GERD (gastroesophageal reflux disease) 530.81 EXAM: HEENT: Airway examined, oropharynx clear Mallampati Score: I (soft palate, uvula, fauces, tonsillar pillars visible) LUNGS: Clear to auscultation HEART: Regular rate and rhythm, normal S1, S2 ABDOMEN: Normal bowel sounds, soft, non tender, non distended, A/P Proceed with the planned endoscopic procedure. ASA 1 - Normal health patient Sedation Plan: anesthesia, hx of difficulty with CS anesthesia Risks and benefits of the procedure explained to the patient. Consent signed. documented in this encounter Miscellaneous Notes * Op Note - Nino Rocha MD - 04/19/2015 4:32 PM EDT [facility] Operative Note Patient Name: Magdalena Horn : [id number] MR#: [id number] Case Date: 04/19/2015 Surgeon: Surgeon(s) and Role: * Nino Rocha MD - Primary Preoperative diagnosis: \ Sol's with dysplasia Postoperative diagnosis: Sol's esophagus, biopsied and ablated, esophagitis post-[place] Procedure(s): UPPER GI ENDOSCOPY COLONOSCOPY, DIAGNOSTIC EGD, TRANSORAL; WITH ABLATION OF TUMOR(S), POLYP(S), OR OTHER LESION(S) Attestation: Case Date: 04/19/2015 Nino Zarate MD 04/19/2015 Full procedure note is documented under the Procedure section of eDH. documented in this encounter Plan of Treatment Upcoming Encounters Date Type Department Care Team (Latest Contact Info) Description 09/29/2024 4:30 PM EST Hospital Encounter [place] [address] Lizet Wilkes MD [facility] [place] [address] 09/29/2024 4:30 PM EST - 09/29/2024 5:00 PM EST Surgery Gastroenterology at [place] [phone] Lizet Wilkes MD [facility] [place] [address] EGD, UPPER GI ENDOSCOPY (WRVU 2.09) 11/09/2024 10:00 AM EST Laboratory Appointment Lab at [facility] [place] Hematology Oncology [address] [place], [place] [phone] 11/09/2024 11:00 AM EST Office Visit Hematology and Oncology at [place] [phone] Faith Caba MD [facility] DR [place] [address] 11/09/2024 12:00 PM EST Appointment Hematology and Oncology at [place] [phone] Scheduled Procedures Name Priority Associated Diagnoses Date/Ti me EGD, UPPER GI ENDOSCOPY (WRVU 2.09) Gastroesophageal reflux disease with esophagitis, unspecified whether hemorrhage 09/29/2024 4:30 PM EST documented as of this encounter Procedures Procedure Name Priority Date/Time Associated Diagnosis Comments SURGICAL PATHOLOGY REPORT Routine 04/19/2015 4:39 PM EDT SPECIMEN TO PATHOLOGY Routine 04/19/2015 4:39 PM EDT EGD, TRANSORAL; WITH ABLATION OF TUMOR(S), POLYP(S), OR OTHER LESION(S) (WRVU 4.01) 04/19/2015 3:28 PM EDT f/u after surgery is complete for David for a touch up of barretts (check with Tracia to confirm timeframe) [consult] COLONOSCOPY, DIAGNOSTIC (WRVU 3.26) 04/19/2015 3:28 PM EDT f/u after surgery is complete for David for a touch up of barretts (check with Tracia to confirm timeframe) [consult] UPPER GI ENDOSCOPY 04/19/2015 3: 28 PM EDT f/u after surgery is complete for David for a touch up of barretts (check with Tracia to confirm timeframe) [consult] COLONOSCOPY Routine 04/19/2015 3:15 PM EDT UPPER GI ENDOSCOPY Routine 04/19/2015 3: 14 PM EDT documented in this encounter Results * Surgical Pathology Report (04/19/2015 4:39 PM EDT) Final Diagnosis ? [facility] ? Provider: ?? NINO ROCHA ??Pt. Name: ?? MAGDALENA HORN ?I ? Acc #: ?[id number] ?Pt. ? Col Date: ?? 04/19/2015 ? /Sex: ?1945,(69 years),Male ? Rec Date: ?? 04/19/2015 ? LOC: ?4T ? SURGICAL PATHOLOGY ? ---Pathologic Diagnosis--- ? Esophagus at 38 cm, biopsy: ?- Squamocolumnar (cardia-type) junctional mucosa with active esophagitis ?and no evidence of intestinal metaplasia. ? CR-0 ? 04/20/15 ? BJM ? 04/20/15 Verified by: ? Jostin Joiner MD ? Pathologist ? (Electronic Signature) ? The attending pathologist whose signature appears on this report has ? reviewed all diagnostic slides and has edited the gross and/or ? microscopic portion of the report in rendering the final pathologic ? diagnosis. ? ---Gross Description--- ? A - Labeled/Fixative: Esophagus at 38 cm, formalin. ? Quantity/Size: Fragments, averaging 0.2 cm. ? Tissue Description: Soft, vital-pink tissue. ? Sections/Processi ng: (T2) ??pps ? ---Clinical Information--- ? Specimen Submitted: ? A - Esophagus at 38 cm ? Clinical History: ? Dysplastic Barretts, erosive esophagitis ? Clinical Diagnosis: ? Dysplastic Barretts, erosive esophagitis 04/20/2015 1:03 PM EDT [facility] GI Biopsy 04/19/2015 4:39 PM EDT 04/19/2015 4:39 PM EDT Nino Zarate MD PATHOLOGY/CYTOLO GY ORDERABLES Performing Organization Address [facility] Co de Phone Number [facility] [place] [address] * Specimen to Pathology (surgical or derm) (04/19/2015 4:39 PM EDT) AP Specimen 04/19/2015 4:39 PM EDT 04/19/2015 4:39 PM EDT Narrative [facility] - 04/19/2015 4:39 PM EDT Specimen requisition ordered. ??Separate Pathology report to follow Nino Zarate MD PATHOLOGY/CYTOLO GY ORDERABLES Performing Organization Address [facility] Co de Phone Number [facility] * COLONOSCOPY (04/19/2015 3:15 PM EDT) COLONOSCOPY [facility] Endoscopy ___ Patient Name: Magdalena Horn ? Procedure Date: 04/19/2015 3:15 PM ? Date of : 1945 ? Age: 69 ? Order #: [id number] ? ___ Procedure: ? Colonoscopy Indications: ? High risk colon cancer surveillance: ? Personal history of colonic polyps Providers: ? Nino Rocha MD, Dinora ? NUZHAT Hernandez, [place], ? Yard General Car Supervisor Referring MD: ?Kennedi Shaver MD Medicines: ? [...] Examination: alert ? and oriented. ? - Respiratory Examination: clear to ? auscultation. ? - ASA Grade Assessment: I - A normal, ? healthy patient. ? - Using IV propofol under the ? supervision of an anesthesiologist ? was determined to be medically ? necessary for this procedure based on ? patient's history of problems with ? anesthesia. ? - The heart rate, respiratory rate, [...] and ? adverse medication reactions. The ? patient was placed in the left ? lateral decubitus position, and a ? digital rectal exam was performed. ? The was inserted in the anus and ? under direct visualization, advanced ? to the terminal ileum. Careful ? inspection was made as the ? colonoscope was withdrawn. The ? colonoscopy was performed without ? difficulty. The patient tolerated the ? procedure well. The quality of the ? bowel preparation was excellent. ? Findings: ? The terminal ileum appeared normal. ? Multiple small-mouthed diverticula were found in the ? entire colon. ? The exam was otherwise without abnormality. ? Impression: ?- The examined portion of the ileum ? was normal. ? - Moderate diverticulosis in the ? entire examined colon. ? - The examination was otherwise ? normal. ? - No specimens collected. Recommendation: ?- Repeat colonoscopy in 5 years for ? surveillance. ? Nino Rocha MD 04/19/2015 4:16 PM This report has been signed electronically. Number of Addenda: 0 Note Initiated On: 04/19/2015 3:15 PM PROVATION 04/19/2015 3:15 PM EDT Kennedi Shaver MD GENERAL SURGICAL ORD ERABLES PROVATION * UPPER GI ENDOSCOPY (04/19/2015 3:14 PM EDT) UPPER GI ENDOSCOPY [facility] Endoscopy ___ Patient Name: Magdalena Horn ? Procedure Date: 04/19/2015 3:14 PM ? Date of : 1945 ? Age: 69 ? Order #: [id number] ? ___ Procedure: ? Upper GI endoscopy Indications: ? For therapy of Sol's esophagus Providers: ? Nino Rocha MD, Dinora ? Mary, NUZHAT, [place]acio, ? Yard General Car Supervisor Referring MD: ?Kennedi Shaver MD Medicines: ? [...] Examination: alert ? and oriented. ? - Respiratory Examination: clear to ? auscultation. ? - ASA Grade Assessment: I - A normal, ? healthy patient. ? - After reviewing the risks and ? benefits, the patient was deemed in ? satisfactory condition to undergo the ? procedure. ? - Using IV propofol under the ? supervision of an anesthesiologist ? was determined to be medically ? necessary for this procedure based on ? patient's history of problems with ? anesthesia. ? - The heart rate, respiratory rate, [...] GI endoscopy was accomplished ? without difficulty. The patient ? tolerated the procedure well. ? Findings: ? The Z-line was variable and was found 38 cm from the ? incisors. ? Two superficial esophageal ulcers with no bleeding ? were found 37 to 38 cm from the incisors. Biopsies ? were taken with a cold forceps for histology. ? The esophagus and gastroesophageal junction were ? examined with white light and narrow band imaging ? (NBI) from a forward view and retroflexed position. ? There were esophageal mucosal changes secondary to ? established Sol's disease, extending from the ? upper extent of the gastric folds which were at 38 cm ? from the incisors to the Z-line which was at 35 cm ? from the incisors. Scattered islands of ? salmon-colored mucosa were present at 35 cm. Focal ? radiofrequency ablation of Sol's esophagus was ? performed to that area, above the area of ? inflammation. With the endoscope in place, the ? position and extent of the Sol's mucosa and the ? anatomic landmarks were noted. The radiofrequency ? channel ablation catheter was introduced through the ? endoscope working channel. Sol's tissue was ? targeted. The endoscope with the ablation catheter ? was advanced to the areas of Sol's mucosa. The ? areas included islands of Sol's mucosa. The ? endoscope with the channel ablation catheter was ? positioned under direct visualization so that the ? catheter was placed in contact with the surface of ? the Sol's mucosa. Energy was applied twice at 12 ? J/cm2. Ablation was repeated in a likewise fashion to ? all visible Sol's mucosa. A second round of ? ablation was then performed. Energy was applied twice ? at 12 J/cm2 to retreat the areas of Sol's ? epithelium that had been treated with the first ? series of ablation. The ablation catheter was removed ? through the endoscope working channel. The areas of ? the esophagus where Sol's mucosa had been ablated ? were carefully examined. Areas of Sol's esophagus ? were completely treated. The endoscope was then ? removed. ? Multiple small sessile polyps were found in the ? gastric body. ? The examined duodenum was normal. ? Evidence of an anti-reflux surgical site was found in ? the gastric fundus. ? Impression: ?- Z-line variable, 38 cm from the ? incisors. ? - Non-bleeding esophageal ulcers. ? Biopsied. WILL NEED TO USE ACID ? SUPPRESSION. ? - Esophageal mucosal changes ? secondary to established Sol's ? disease. Treated with radiofrequency ? ablation. ? - Multiple gastric polyps. ? - Normal examined duodenum. Recommendation: ?- Await pathology results. ? - Use Protonix (pantoprazole) 40 mg ? PO BID. ? - Repeat the upper endoscopy in 2 ? months for retreatment. ? - Liquid diet for a day ? Then soft diet for 3 days, then diet ? as tolerated. ? Call for questions or concerns to ? [phone] ? Nino Rocha MD 04/19/2015 4:43 PM This report has been signed electronically. Number of Addenda: 0 Note Initiated On: 04/19/2015 3:14 PM PROVATION 04/19/2015 3:14 PM EDT Kennedi Shaver MD GENERAL SURGICAL ORD [facility] PROVATION documented in this encounter Visit Diagnoses Not on filedocumented in this encounter Active and Recently Administered Medications Care Teams Washer Assembler Relationship Specialty Start Date End Date Kennedi Shaver MD [address] [place] [address] [address] [place] [address] PCP - General 08/22/10 08/01/20 documented as of this encounter
--- OUTSIDE RECORDS SUMMARY | 2024-09-11 15:30 | XMS_ITS | Encounter Summary ---
Author Organization [facility] [place] [id number] Care Team Providers Care Operations Intelligence Superintendent Name Role Phone Kennedi Shaver MD Primary Care Provider [phone] Reason for Referral * Surgical (Routine) - Closed Specialty Diagnoses / Procedures Referred By Blaine peralta Referred To Contact General Surgery Diagnoses Esophageal reflux Dianelys Hollis APRN [facility] [place] [address] Bridger Bates MD [facility] [place] [address] Referral ID Status Reason Start Date Expiration Date V isits Requested Visits Authorized [id number] Closed Consult, Test & Treat 11/09/2013 05/08/2014 1 1 Encounter Details Date Type Department Care Team (Late st Contact Info) Description 11/09/2013 Orders [place] [address] Dianelys Hollis APRN [facility] DR [place] [address] Esophageal reflux (Primary Dx) Social History Tobacco Use Types [...] PM EST Hospital Encounter Gastroenterology at [address] Lizet Wilkes MD [facility] [place] [address] 09/29/2024 4:30 PM EST - 09/29/2024 5:00 PM EST Surgery Gastroenterology at [place] [phone] Lizet Wilkes MD [facility] [place] [address] EGD, UPPER GI ENDOSCOPY (WRVU 2.09) 11/09/2024 10:00 AM EST Laboratory Appointment Lab at [facility] [place] Hematology Oncology [address] [place], [place] [phone] 11/09/2024 11:00 AM EST Office Visit Hematology and Oncology at [place] [address] Faith Caba MD [facility] HEMATOLOGY [place] [address] 11/09/2024 12:00 PM EST Appointment Hematology and Oncology at [place] [phone] Scheduled Procedures Name Priority Associated Diagnoses Date/Ti me EGD, UPPER GI ENDOSCOPY (WRVU 2.09) Gastroesophageal reflux disease with esophagitis, unspecified whether hemorrhage 09/29/2024 4:30 PM EST Scheduled Referrals Name Type Priority Associated Diagnoses Orde r Schedule Referral to General Surgery Outpatient Referral Routine Esophageal reflux Ordered: 11/09/2013 documented as of this encounter Visit Diagnoses Diagnosis Esophageal reflux- Primary Gastroesophageal reflux disease with esophagitis, unspecified whether hemorrhage documented in this encounter Care Teams Operations Intelligence Superintendent Relationship Specialty Start Date End Date Kennedi Shaver MD [address] [place] [address] PCP - General 08/22/10 08/01/20 documented as of this encounter
--- OUTSIDE RECORDS SUMMARY | 2024-09-11 15:30 | XMS_ITS | Encounter Summary ---
Author Organization [facility] [address] Care Team Providers Care It Programmer Name Role Phone Kennedi Shaver MD Primary Care Provider [phone] Encounter Details Date Type Department Care Team (Late st Contact Info) Description 06/05/2013 Telephone [place] [address] Deborah Woo, RN DEPT OF GASTROENTEROLOGY Social History Tobacco Use Types Packs/Day Years [...] encounter Miscellaneous Notes * Telephone Encounter - Nena Gonzalez RN - 06/11/2013 1:15 PM EDT Letter prepared for Dianelys Justin to sign, with addendum including information patient requested. * Telephone Encounter - Deborah Vigil RN - 06/05/2013 9:00 AM EDT Pt left VM requesting a more detailed results letter, specifically regarding whether or not there is dysplasia. Pt states his insurance company is requesting it. documented in this encounter Plan of Treatment Upcoming Encounters Date Type Department Care Team (Latest Contact Info) Description 09/29/2024 4:30 PM EST Hospital Encounter [place] [address] Lizet Wilkes MD [facility] [place] [address] 09/29/2024 4:30 PM EST - 09/29/2024 5:00 PM EST Surgery Gastroenterology at [place] [phone] Lizet Wilkes MD [facility] [place] [address] EGD, UPPER GI ENDOSCOPY (WRVU 2.09) 11/09/2024 10:00 AM EST Laboratory Appointment Lab at [facility] [place] Hematology Oncology [address] [place] [phone] 11/09/2024 11:00 AM EST Office Visit Hematology and Oncology at [place] [phone] Faith Caba MD [facility] DR HEMATOLOGY [place] [address] 11/09/2024 12:00 PM EST Appointment Hematology [place] [phone] Scheduled Procedures Name Priority Associated Diagnoses Date/Ti me EGD, UPPER GI ENDOSCOPY (WRVU 2.09) Gastroesophageal reflux disease with esophagitis, unspecified whether hemorrhage 09/29/2024 4:30 PM EST documented as of this encounter Visit Diagnoses Not on filedocumented in this encounter Care Teams It Programmer Relationship Specialty Start Date End Date Kennedi Shaver MD [facility] [address] [facility] [address] [place] [address] PCP - General 08/22/10 08/01/20 documented as of this encounter
--- OUTSIDE RECORDS SUMMARY | 2024-09-11 15:30 | XMS_ITS | Encounter Summary ---
Author Organization [facility] [address] Care Team Providers Care Pest Technician Name Role Phone Kennedi Shaver MD Primary Care Provider [phone] Encounter Details Date Type Department Care Team (Late st Contact Info) Description 04/22/2012 Orders [place] [phone] Mendez Moctezuma MD [facility] [place] [address] Social History Tobacco Use Types Packs/Day Years [facility] Encounter [place] [phone] Lizet Wilkes MD [facility] [place] [address] 09/29/2024 4:30 PM EST - 09/29/2024 5:00 PM EST Surgery Gastroenterology at [place] [address] Lizet Wilkes MD [facility] [place] [address] EGD, UPPER GI ENDOSCOPY (WRVU 2.09) 11/09/2024 10:00 AM EST Laboratory Appointment Lab at [facility] Hematology Oncology [address] [place] [address] 11/09/2024 11:00 AM EST Office Visit Hematology and Oncology at [place] [address] Faith Caba MD [facility] [address] [place] [address] 11/09/2024 12:00 PM EST Appointment Hematology and Oncology at [place] [address] Scheduled Procedures Name Priority Associated Diagnoses Date/Ti me EGD, UPPER GI ENDOSCOPY (WRVU 2.09) Gastroesophageal reflux disease with esophagitis, unspecified whether hemorrhage 09/29/2024 4:30 PM EST documented as of this encounter Visit Diagnoses Not on filedocumented in this encounter Care Teams Pest Technician Relationship Specialty Start Date End Date Kennedi Shaver MD [facility] [address] [place] [address] PCP - General 08/22/10 08/01/20 documented as of this encounter
--- OUTSIDE RECORDS SUMMARY | 2024-09-11 15:30 | XMS_ITS | Encounter Summary ---
[place] [address] Care Team Providers Care Grant Coordinator Name Role Phone Kennedi Shaver MD Primary Care Provider [phone] Encounter Details Date Type Department Care Team (Late st Contact Info) Description 04/22/2012 2:30 PM EDT Anesthesia [place] [address] Roman Falcon MD [facility] DR ANESTHESI[place] [address] Anesthesia Record Procedure Summary Procedure Name Responsible Anesthesiologist Anesthesia Start Time Anesthesia Stop Time ENDOSCOPY, UPPER GI, W\ABLATION TUMOR\POLYP\LESION Roman Falcon MD 04/22/12 1430 04/22/12 1550 Events Date Time Event Comment 04/22/2012 1356 1430 Start 1550 Stop Meds * Agents No agents on file. * Blood No blood administrations on file. Lines, Drains, and Airways No LDAs on file. documented in this encounter Social History Tobacco [...] OR Notes * Anesthesia Postprocedure Evaluation - Roman Falcon MD - 04/22/2012 3:55 PM EDT Patient: Chidi Carbone Procedure(s) Performed: Procedure(s): ENDOSCOPY, UPPER GI, W\ABLATION TUMOR\POLYP\LESION UPPER GASTROINTESTINAL ENDOSCOPY,WITH BIOPSY SINGLE OR MULTIPLE Patient location: PACU Post-op pain: Adequate analgesia Post-op nausea: no nausea or vomiting Last Vitals: Filed Vitals: 04/22/12 1529 BP: 120/70 Pulse: 54 Temp: Resp: 17 Post-op cardiovascular and respiratory status: is stable Level of consciousness: awake, alert and oriented Complications: no apparent complications, tolerated the procedure well and no evidence of recall Fluid Status: normal * Anesthesia Preprocedure Evaluation - Roman Falcon MD - 04/22/2012 1:55 PM EDT Anesthesia Evaluation Patient summary reviewed No hx of anesthetic complications Airway Mallampati: III TM distance: >3 FB Neck ROM: full Dental - normal exam Pulmonary - normal exam Cardiovascular - normal exam Exercise tolerance: good Rhythm: regular Rate: normal Neuro/Psych - negative ROS GI/Hepatic/Renal (+) GERD well controlled, Endo/Other - negative ROS Abdominal - normal exam Anesthesia Plan ASA 2 MAC with intravenous induction Tolerated procedure well before. MAC with propofol. Anesthetic plan and risks discussed with patient. Plan discussed with WELDING MACHINE OPERATOR. documented in this encounter Miscellaneous Notes * Addendum Note - Yenifer Farley - 04/23/2012 12:13 PM EDT Addendum created 04/23/12 1213 by Yenifer Farley Modules edited:Anesthesia Events, Anesthesia Responsible Staff documented in this encounter Plan of Treatment Upcoming Encounters Date Type Department Care Team (Latest Contact Info) Description 09/29/2024 4:30 PM EST Hospital Encounter Gastroenterology at [place] [phone] Lizet Wilkes MD [facility] [address] 09/29/2024 4:30 PM EST - 09/29/2024 5:00 PM EST Surgery Gastroenterology at [place] [phone] Lizet Wilkes MD [facility] [place] [address] EGD, UPPER GI ENDOSCOPY (WRVU 2.09) 11/09/2024 10:00 AM EST Laboratory Appointment Lab at [facility] Hematology Oncology [address] [place] [address] 11/09/2024 11:00 AM EST Office Visit Hematology and Oncology at [place] [address] Faith Caba MD [facility] [address] [place] [address] 11/09/2024 12:00 PM EST Appointment Hematology and Oncology at [place] [address] Scheduled Procedures Name Priority Associated Diagnoses Date/Ti me EGD, UPPER GI ENDOSCOPY (WRVU 2.09) Gastroesophageal reflux disease with esophagitis, unspecified whether hemorrhage 09/29/2024 4:30 PM EST documented as of this encounter Visit Diagnoses Not on filedocumented in this encounter Care Teams Grant Coordinator Relationship Specialty Start Date End Date Kennedi Shaver MD [facility] [address] [place] [address] PCP - General 08/22/10 08/01/20 documented as of this encounter
--- OUTSIDE RECORDS SUMMARY | 2024-09-11 15:30 | XMS_ITS | Encounter Summary ---
Author Organization [facility] [place] [place] [address] Care Team Providers Care Retirement Village Manager Name Role Phone Kennedi Shaver MD Primary Care Provider [phone] Encounter Details Date Type Department Care Team (Late st Contact Info) Description 05/12/2013 2:40 PM EDT Anesthesia Event [place] [address] Reynaldo Moura MD [facility] [place] [address] Anesthesia Record Procedure Summary Procedure Name Responsible Anesthesiologist Anesthesia Start Time Anesthesia Stop Time UPPER GI ENDOSCOPY (Trunk) Reynaldo Moura MD 05/12/13 1440 05/12/13 1525 Events Date Time Event Comment 05/12/2013 1418 1440 Start 1441 An Start Data 1444 AN Verify 1445 An Induction 1446 Anesthesia Ready 1517 Procedure Stop 1521 an stop data 1525 Stop Meds Name Total propofol 220 mg lactated ringers infusion 0 mL * Agents Name O2 * Blood No blood administrations on file. Lines, Drains, and Airways Type Details Placement Removal (RETIRED) Peripheral IV Line - Single Lumen 05/12/13; 1405; 05/12/13; 1607 05/12/13 1405 by Ragini Faria RN 05/12/13 1607 by Ragini Faria RN documented in this encounter Social History [...] OR Notes * Anesthesia Postprocedure Evaluation - Reynaldo Moura MD - 05/12/2013 4:09 PM EDT Patient: Chidi Carbone Procedure(s) Performed: Procedure(s): UPPER GI ENDOSCOPY UPPER GASTROINTESTINAL ENDOSCOPY,WITH BIOPSY SINGLE OR MULTIPLE Actual Anesthetic: general Patient location: PACU Post-op pain: Adequate analgesia Post-op nausea: no nausea or vomiting Last Vitals: Filed Vitals: 05/12/13 1526 BP: 119/72 Pulse: 58 Resp: 16 Post-op cardiovascular and respiratory status: is stable Level of consciousness: awake, alert and oriented Complications: no apparent complications and tolerated the procedure well Fluid Status: normal * Anesthesia Preprocedure Evaluation - Reynaldo Moura MD - 05/12/2013 2:16 PM EDT Pre-Anesthesia Evaluation for: Chidi Carbone a 67 y.o. male. Procedure(s): UPPER GI ENDOSCOPY Patient Active Problem List Diagnosis ??? GERD (gastroesophageal reflux disease) No past medical history on file. Past Surgical History Procedure Date ??? Upper gi endoscopy, exam 02/13/2011 UPPER GI ENDOSCOPY performed by PAULA UPTON I at [facility] ENDOSCOPY ??? Upper gi endoscopy, biopsy 11/27/2011 UPPER GASTROINTESTINAL ENDOSCOPY,WITH BIOPSY SINGLE OR MULTIPLE performed by PAULA UPTON I at [facility] ENDOSCOPY ??? Upper gi endoscopy, tumor ablatn 04/22/2012 ENDOSCOPY, UPPER GI, W\ABLATION TUMOR\POLYP\LESION performed by PAULA UPTON I at [facility] ENDOSCOPY ??? Upper gi endoscopy, biopsy 04/22/2012 UPPER GASTROINTESTINAL ENDOSCOPY,WITH BIOPSY SINGLE OR MULTIPLE performed by PAULA UPTON I at [facility] ENDOSCOPY History Substance Use Topics ??? Smoking status: Former Smoker -- 15 years ??? Smokeless tobacco: Former User Quit date: 02/13/1978 ??? Alcohol Use: 8.4 oz/week 14 Glasses of wine per week History Drug Use No No Known Allergies Medications: MAR and/or home medications have been reviewed. Physical Exam: There were no vitals filed for this visit. There is no height or weight on file to calculate BMI. Airway Assessment: Mallampati: I TM distance: >3 FB Neck ROM: full hypognathia, Cardiovascular Assessment: Rhythm: regular Rate: normal (-) murmur and carotid bruit Pulmonary Assessment: breath sounds clear to auscultation Dental Assessment: Comment: Implant in front with protective bridge Misc Assessment: Anesthesia Plan: ASA 2 general, with a(n) intravenous induction Plan propofol, concerned about bridge Region - Other Informed Consent: Anesthetic plan and risks discussed with patient. Use of blood products discussed with patient whom. Plan discussed with PUBLICATIONS EDITOR. Misc. Assessment: documented in this encounter Plan of Treatment Upcoming Encounters Date Type Department Care Team (Latest Contact Info) Description 09/29/2024 4:30 PM EST Hospital Encounter [place] [address] Lizet Wilkes MD [facility] [place] [address] 09/29/2024 4:30 PM EST - 09/29/2024 5:00 PM EST Surgery [place] [address] Lizet Wilkes MD [facility] [place] [address] EGD, UPPER GI ENDOSCOPY (WRVU 2.09) 11/09/2024 10:00 AM EST Laboratory Appointment Lab at [facility] Hematology Oncology [address] [place] [phone] 11/09/2024 11:00 AM EST Office Visit Hematology [place] [address] Faith Caba MD [facility] DR [place] [address] 11/09/2024 12:00 PM EST Appointment Hematology [place] [address] Scheduled Procedures Name Priority Associated Diagnoses Date/Ti [...] 2:05 PM EDT 100 mL/hr 100 mL/hr propofol (DIPRIVAN) 10 mg/mL bolus injection (Anesthesia) PRN, Starting on Sat05/12/13 at 1445, Until Sat05/12/13 at 1535, Anesthesia Intra-op Given 05/12/2013 2:55 PM EDT 30 mg Given 05/12/2013 2:53 PM EDT 30 mg Given 05/12/2013 2:50 PM EDT 30 mg documented in this encounter Care Teams Retirement Village Manager Relationship Specialty Start Date End Date Kennedi Shaver MD [address] [place] [address] [address] [place] [address] PCP - General 08/22/10 08/01/20 documented as of this encounter
--- OUTSIDE RECORDS SUMMARY | 2024-09-11 15:30 | XMS_ITS | Encounter Summary ---
Author Organization [facility] [place] [address] Care Team Providers Care Barrow Worker Name Role Phone Kennedi Shaver MD Primary Care Provider [phone] Encounter Details Date Type Department Care Team (Late st Contact Info) Description 06/29/2015 1:26 PM EDT Anesthesia Event [place] [address] Portillo Saavedra MD [facility] DR ANESTHESI[place]Y [place] [address] Sussy Ac CRNA [facility] DR [place] [address] Anesthesia Record Procedure Summary Procedure Name Responsible Anesthesiologist Anesthesia Start Time Anesthesia Stop Time EGD WITH BIOPSY (WRVU 2.39) (Trunk) Portillo Saavedra MD 06/29/15 1326 06/29/15 1401 Events Date Time Event Comment 06/29/2015 1300 1326 AN Verify 1326 Start 1326 An Start Data 1330 An Induction 1332 Anesthesia Ready 1357 an stop data 1401 Stop Meds Name Total IV Lidocaine 60 mg Propofol 200 mg Propofol INF 204 mg lactated ringers infusion 800 mL * Agents Name O2 * Blood No blood administrations on file. Lines, Drains, and Airways Type Details Placement Removal Incision 03/08/14; abdomen; laparoscopic punctures (specify) (Trocar sites.); 05/28/22 (LDA cleanup utility RA#[id number]); 1715 (LDA cleanup utility RA#[id number]) 03/08/14 0000 by Celeste ePter RN 05/28/22 1715 by Dali Menchaca (RETIRED) Peripheral IV Line - Single Lumen 03/08/14; 1354; metacarpal vein right (top of hand); [id number] catheter system; 18 gauge, 1 in length; intradermal injection, tolerated well, appears comfortable; 01/13/18 (Auto removal via utility); 0921 (Auto removal via utility) 03/08/14 1354 by Verenice Nguyễn RN 01/13/18 0921 by Narvalous, User (RETIRED) Peripheral IV Line - Single Lumen 06/29/15; 1253; metacarpal vein right (top of hand); [id number] catheter system; 20 gauge, 1 in length; intradermal injection, distraction; 0; 01/13/18 (Auto removal via utility); 0921 (Auto removal via utility) 06/29/15 1253 by Angel Angel RN 01/13/18 0921 by Narvalous, User documented in this encounter Social History Tobacco [...] OR Notes * Anesthesia Postprocedure Evaluation - Portillo Saavedra MD - 06/29/2015 2:28 PM EDT Patient: Chidi Carbone Procedure(s) Performed: Procedure(s): EGD WITH BIOPSY Actual Anesthetic: general Patient location: PACU Post-op pain: Adequate analgesia Post-op nausea: no nausea or vomiting Last Vitals: Filed Vitals: 06/29/15 1409 BP: 115/71 Pulse: 66 Resp: 18 Post-op cardiovascular and respiratory status: is stable Level of consciousness: awake, alert and oriented Complications: no apparent complications and tolerated the procedure well Fluid Status: normal * Anesthesia Preprocedure Evaluation - Portillo Saavedra MD - 06/29/2015 12:59 PM EDT Pre-Anesthesia Evaluation for: Chidi ott 69 y.o. male. Procedure(s): UPPER GI ENDOSCOPY Patient Active Problem List Diagnosis ??? GERD (gastroesophageal reflux disease) No past medical history on file. Past Surgical History Procedure Laterality Date ??? Upper gi endoscopy, exam 02/13/2011 UPPER GI ENDOSCOPY performed by NINO ROCHA I at [facility] ENDOSCOPY ??? Pro upper gi endoscopy, biopsy 11/27/2011 UPPER GASTROINTESTINAL ENDOSCOPY,WITH BIOPSY SINGLE OR MULTIPLE performed by NINO ROCHA I at [facility] ENDOSCOPY ??? Upper gi endoscopy, tumor ablatn 04/22/2012 ENDOSCOPY, UPPER GI, W\ABLATION TUMOR\POLYP\LESION performed by NINO ROCHA I at [facility] ENDOSCOPY ??? Pro upper gi endoscopy, biopsy 04/22/2012 UPPER GASTROINTESTINAL ENDOSCOPY,WITH BIOPSY SINGLE OR MULTIPLE performed by NINO ROCHA I at [facility] ENDOSCOPY ??? Upper gi endoscopy, exam 05/12/2013 UPPER GI ENDOSCOPY performed by Nino Rocha MD at [facility] ENDOSCOPY ??? Pro upper gi endoscopy, biopsy 05/12/2013 UPPER GASTROINTESTINAL ENDOSCOPY,WITH BIOPSY SINGLE OR MULTIPLE performed by Nino Rocha MD at [facility] ENDOSCOPY ??? Pro upper gi endoscopy, biopsy 10/20/2013 UPPER GASTROINTESTINAL ENDOSCOPY,WITH BIOPSY SINGLE OR MULTIPLE performed by Nino Rocha MD at [facility] ENDOSCOPY ??? Pro lap, esophagogast fundoplasty 03/08/2014 LAPAROSCOPIC MODESTO FUNDOPLASTY performed by Surendra Garcia MD at [facility] MAIN OR ??? Upper gi endoscopy, exam N/A 04/19/2015 UPPER GI ENDOSCOPY performed by Nino Rocha MD at [facility] ENDOSCOPY ??? Pro colonoscopy, diagnostic N/A 04/19/2015 COLONOSCOPY, DIAGNOSTIC performed by Nino Rocha MD at [facility] ENDOSCOPY ? ? Pro edg flexible transoral ablate tumor polyp/lesion w/dilation & wire N/A 04/19/2015 EGD, TRANSORAL; WITH ABLATION OF TUMOR(S), POLYP(S), OR OTHER LESION(S) performed by Nino Rocha MD at [facility] ENDOSCOPY History Substance Use Topics ??? Smoking status: Former Smoker -- 15 years ??? Smokeless tobacco: Former User Quit date: 02/13/1978 ??? Alcohol Use: 8.4 oz/week 14 Glasses of wine per week History Drug Use No No Known Allergies Medications: MAR and/or home medications have been reviewed. Physical Exam: Filed Vitals: 06/29/15 1234 BP: 129/73 Pulse: 56 Resp: 16 There is no weight on file to calculate BMI. Airway Assessment: Mallampati: I TM distance: >3 FB Neck ROM: full hypognathia, Cardiovascular Assessment: Rhythm: regular Rate: normal (-) murmur and carotid bruit cardiovascular exam normal Pulmonary Assessment: breath sounds clear to auscultation pulmonary exam normal Dental Assessment: Comment: Implant in front with protective bridge Misc Assessment: Anesthesia Plan: ASA 2 general, with a(n) intravenous induction Plan propofol Region - Other Informed Consent: Anesthetic plan and risks discussed with patient. Use of blood products discussed with patient whom. Plan discussed with WILDLAND FIRE OPERATIONS SPECIALIST. Misc. Assessment: documented in this encounter Plan of Treatment Upcoming Encounters Date Type Department Care Team (Latest Contact Info) Description 09/29/2024 4:30 PM EST Hospital Encounter [place] [address] Lizet Wilkes MD [facility] [place] [address] 09/29/2024 4:30 PM EST - 09/29/2024 5:00 PM EST Surgery [place] [address] Lizet Wilkes MD [facility] [place] [address] EGD, UPPER GI ENDOSCOPY (WRVU 2.09) 11/09/2024 10:00 AM EST Laboratory Appointment Lab at [facility] Hematology Oncology [address] [place] [phone] 11/09/2024 11:00 AM EST Office Visit Hematology [place] [address] Faith Caba MD [facility] [address] HEMATOLOGY [place] [address] 11/09/2024 12:00 PM EST Appointment Hematology [place] [phone] Scheduled Procedures Name Priority Associated Diagnoses Date/Ti me EGD, UPPER GI ENDOSCOPY (WRVU 2.09) Gastroesophageal reflux disease with esophagitis, unspecified whether hemorrhage 09/29/2024 4:30 PM EST documented as of this encounter Visit Diagnoses Not on filedocumented in this encounter Administered Medications Inactive Administered Medications - up to 3 most recent administrations Medication Order MAR Action Action Date Dose Rate Site lidocaine (PF) (XYLOCAINE) 100 mg/5 mL (2 %) injection PRN, Starting on Sat06/29/15 at 1330, Until Sat06/29/15 at 1411, Anesthesia Intra-op, Routine Given 06/29/2015 1:30 PM EDT 60 mg propofol (DIPRIVAN) 10 mg/mL bolus injection (Anesthesia) PRN, Starting on Sat06/29/15 at 1330, Until Sat06/29/15 at 1411, Anesthesia Intra-op Given 06/29/2015 1:47 PM EDT 10 mg Given 06/29/2015 1:45 PM EDT 20 mg Given 06/29/2015 1:42 PM EDT 20 mg propofol (DIPRIVAN) infusion CONTINUOUS PRN, Starting on Sat06/29/15 at 1330, Until Sat06/29/15 at 1411, Anesthesia Intra-op, Routine New Bag 06/29/2015 1:30 PM EDT 150 mcg/kg/min 76.5 mL/hr documented in this encounter Care Teams Barrow Worker Relationship Specialty Start Date End Date Kennedi Shaver MD [facility] [address] [facility] [address] [place] [address] PCP - General 08/22/10 08/01/20 documented as of this encounter
--- OUTSIDE RECORDS SUMMARY | 2024-09-11 15:30 | XMS_ITS | Encounter Summary ---
Author Organization [facility] [place] [address] Care Team Providers Care Historic Sites Registrar Name Role Phone Kennedi Shaver MD Primary Care Provider [phone] Encounter Details Date Type Department Care Team (Latest Contact Info) Description 10/20/2013 2:12 PM EST - 10/20/2013 5:14 PM EST Hospital Encounter [place] [address] Nino Rocha MD [facility] [place] [address] Discharge Disposition: Home Social History Tobacco Use [...] GI ENDOSCOPY: WHAT TO EXPECT AT HOME (IRAQI) documented in this encounter Medications at Time of Discharge Medication Sig Dispensed Refills Start Date End Date DUTASTERIDE/TAMSULOSIN HCL (ARNOL ORAL) Take by mouth daily. ZOLPIDEM TARTRATE (AMBIEN ORAL) 12/05/2010 10/04/2020 pantoprazole (PROTONIX) 40 mg tablet 12/05/2010 04/19/2015 documented as of this encounter H&P Notes * Nino Rocha MD - 10/20/2013 3:22 PM EST Gastroenterology [...] Rocha MD - 10/20/2013 3:53 PM EST [facility] Operative Note Patient Name: Magdalena Horn : [id number] MR#: [id number] Case Date: 10/20/2013 Surgeon: Surgeon(s) and Role: * Nino Rocha MD - Primary Preoperative diagnosis: Robles's esophagus, hx HGD s/p ablation, with recurrence Postoperative diagnosis: Same, with active esophagitis Procedure(s): UPPER GASTROINTESTINAL ENDOSCOPY,WITH BIOPSY SINGLE OR MULTIPLE Full procedure note is documented under the Procedure section of [facility]. documented in this encounter Plan of Treatment Upcoming Encounters Date Type Department Care Team (Latest Contact Info) Description 09/29/2024 4:30 PM EST Hospital Encounter [place] [address] Lizet Wilkes MD [facility] [place] [address] 09/29/2024 4:30 PM EST - 09/29/2024 5:00 PM EST Surgery [place] [address] Lizet Wilkes MD [facility] [place] [address] EGD, UPPER GI ENDOSCOPY (WRVU 2.09) 11/09/2024 10:00 AM EST Laboratory Appointment Lab at [facility] Hematology Oncology [address] [place] [phone] 11/09/2024 11:00 AM EST Office Visit Hematology [place] [address] Faith Caba MD [facility] DR HEMATOLOGY [place] [address] 11/09/2024 12:00 PM EST Appointment Hematology [place] [address] Scheduled Procedures Name Priority Associated [...] (10/20/2013 4:00 PM EST) Final Diagnosis ? [facility] ? Provider: ?? NINO ROCHA ??Pt. Name: ?? MAGDALENA HORN ?I ? Acc #: ?[id number] ?Pt. ? Col Date: ?? 10/20/2013 ? [...] ? Not provided 10/22/2013 5:07 PM EST [facility] GI Biopsy 10/20/2013 4:00 PM EST 10/20/2013 4:00 PM EST GI Biopsy 10/20/2013 4:00 PM EST 10/20/2013 4:00 PM EST Nino Zarate MD PATHOLOGY/CYTOLO GY ORDERABLES Performing Organization Address [facility] de Phone Number TJ [facility] [place] [address] * Specimen to Pathology (surgical or derm) (10/20/2013 4:00 PM EST) AP Specimen 10/20/2013 4:00 PM EST 10/20/2013 4:01 PM EST Narrative CERNER MILLENNIUM - 10/20/2013 4:01 PM EST Specimen requisition ordered. ??Separate Pathology report to follow Nino Zarate MD PATHOLOGY/CYTOLO GY ORDERABLES Performing Organization Address [facility] de Phone Number Mor.[email or web address] * Specimen to Pathology (surgical or derm) (10/20/2013 4:00 PM EST) AP Specimen 10/20/2013 4:00 PM EST 10/20/2013 4:01 PM EST Narrative CERNER MILLENNIUM - 10/20/2013 4:00 PM EST Specimen requisition ordered. ??Separate Pathology report to follow Nino Zarate MD PATHOLOGY/CYTOLO GY ORDERABLES Performing Organization Address [facility] de Phone Number CERLANA GiritechENNIUM * UPPER GI ENDOSCOPY (10/20/2013 3:09 PM EST) Pathologist [facility] UPPER GI ENDOSCOPY [facility] Endoscopy Patient Name: Magdalena Horn ? Procedure Date: 10/20/2013 3:09 PM ? Date of : 1945 ? Age: 67 ? Order #: [id number] ? Procedure: ? Upper GI endoscopy Indications: ? Follow-up of Robles's esophagus Providers: ? Nino Rocha MD, Dinora ? Mary, RN, Bri Lozada, Program Production Specialist Referring MD: ?Kennedi Shaver MD Medicines: ? [...] ? - Refer to a general surgeon (Jana or ? Jose) at appointment to be ? scheduled to [...] Routine 1527 (Given - Provid er: Dinora Heranndez RN - Comment: med for sedation)1530 (Given [...] RN) documented in this encounter Care Teams Historic Sites Registrar Relationship Specialty Start Date End Date Kennedi Shaver MD [address] [place], [place] [address] [address] [place] [address] PCP - General 08/22/10 08/01/20 documented as of this encounter
--- OUTSIDE RECORDS SUMMARY | 2024-09-11 15:30 | XMS_ITS | Encounter Summary ---
Author Organization [facility] [place] [address] Care Team Providers Care Residential Assistant Name Role Phone Kennedi Shaver MD Primary Care Provider Encounter Details Date Type Department Care Team (Late st Contact Info) Description 05/12/2013 2:00 PM EDT - 05/12/2013 2:30 PM EDT [place] [address] Nino Rocha MD [facility] [place] [address] UPPER GI ENDOSCOPY Social History Tobacco Use Types Packs/Day Years [...] not get better as expected. 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 Follow-up care is a bello part of [...] Rocha MD - 05/12/2013 3:21 PM EDT [facility] Operative Note Patient Name: Magdalena Horn : [id number] MR#: [id number] Case Date: 05/12/2013 Surgeon: Surgeon(s) and Role: [...] 4:30 PM EST Hospital En[place] [address] Lizet Wilkes MD [facility] [place] [address] 09/29/2024 4:30 PM EST - 09/29/2024 5:00 PM EST [place] [address] Lizet Wilkes MD [facility] [place] [address] EGD, UPPER GI ENDOSCOPY (WRVU 2.09) 11/09/2024 10:00 AM EST Laboratory Appointment Lab at [facility] Hematology Oncology [address] [place] [phone] 11/09/2024 11:00 AM EST Office Visit H[place]ology [place] [address] Faith Caba MD [facility] HEMATOLOGY [place] [address] 11/09/2024 12:00 PM EST Appointment Hematology and Oncology at [facility] [place] [address] Scheduled Procedures Name Priority Associated Diagnoses Date/Ti [...] 3:25 PM EDT) Surgical Pathology Report ? [facility] ? Provider: ?? NINO ROCHA ??Pt. Name: ?? MAGDALENA HORN ?I ? Acc #: ?[id number] ?Pt. ? Col Date: ?? 05/12/2013 ? [...] ? Tissue Description: Soft, pink tissues. ? [facility] ? Provider: ?? NINO ROCHA ??Pt. Name: ?? MAGDALENA HORN ?I ? Acc #: ?[id number] ?Pt. ? Col Date: ?? 05/12/2013 ? [...] ablation ? Clinical Diagnosis: ? Same [facility] 05/12/2013 3:25 PM EDT Nino Zarate MD PATHOLOGY/CYTOLO GY ORDERABLES [facility] * Specimen to Pathology (surgical or derm) (05/12/2013 3:25 PM EDT) AP Specimen 05/12/2013 3:25 PM EDT 05/12/2013 3:25 PM EDT [facility]ative [facility] - 05/12/2013 3:25 PM EDT Specimen requisition ordered. ??Separate Pathology report to follow Nino Zarate MD PATHOLOGY/CYTOLO GY ORDERABLES [facility] * Specimen to Pathology (surgical or derm) (05/12/2013 3:25 PM EDT) AP Specimen 05/12/2013 3:25 PM EDT 05/12/2013 3:25 PM EDT Narrative [facility] - 05/12/2013 3:25 PM EDT Specimen requisition ordered. ??Separate Pathology report to follow Nino Zarate MD PATHOLOGY/CYTOLO GY ORDERABLES Performing Organization Address [facility] Co de Phone Number TJ MCBRIDE * Specimen to Pathology (surgical or derm) (05/12/2013 3:25 PM EDT) AP Specimen 05/12/2013 3:25 PM EDT 05/12/2013 3:25 PM EDT Narrative [facility]J [facility] - 05/12/2013 3:25 PM EDT Specimen requisition ordered. ??Separate Pathology report to follow Nino Zarate MD PATHOLOGY/CYTOLO GY ORDERABLES Performing Organization Address [facility] Co de Phone Number TJ MCBR[facility] * Specimen to Pathology (surgical or derm) (05/12/2013 3:25 PM EDT) AP Specimen 05/12/2013 3:25 PM EDT 05/12/2013 3:25 PM EDT Narrative TJ JUNIORIUM - 05/12/2013 3:25 PM EDT Specimen requisition ordered. ??Separate Pathology report to follow Nino Zarate MD PATHOLOGY/CYTOLO GY ORDERABLES Performing Organization Address [facility] de Phone Number TJ MCBRIDE * Specimen to Pathology (surgical or derm) (05/12/2013 3:25 PM EDT) AP Specimen 05/12/2013 3:25 PM EDT 05/12/2013 3:25 PM EDT Narrative TJ [facility]UN[facility] - 05/12/2013 3:25 PM EDT Specimen requisition ordered. ??Separate Pathology report to follow Nino Zarate MD PATHOLOGY/CYTOLO GY ORDERABLES Performing Organization Address [facility] de Phone Number TJ MCBRIDE * Specimen to Pathology (surgical or derm) (05/12/2013 3:25 PM EDT) AP Specimen 05/12/2013 3:25 PM EDT 05/12/2013 3:25 PM EDT Narrative [facility]J [facility] - 05/12/2013 3:25 PM EDT Specimen requisition ordered. ??Separate Pathology report to follow Nino Zarate MD PATHOLOGY/CYTOLO GY ORDERABLES Performing Organization Address [facility]/State/ZIP Co de Phone Number TJ MCBRIDE * UPPER GI ENDOSCOPY (05/12/2013 2:27 PM EDT) UPPER GI ENDOSCOPY [facility] Endoscopy ___ Patient Name: Magdalena Horn ? Procedure Date: 05/12/2013 2:27 PM ? Date of : 1945 ? Age: 67 ? Order #: [id number] ? ___ Procedure: ? Upper GI endoscopy Indications: ? Follow-up of Robles's esophagus Providers: ? Nino Rocha MD, Jose Jules ? NUZHAT Alanis, Deborah Kevin, ? Racecar Driver Referring MD: ?Kennedi Shaver MD Medicines: ? [...] CRNA) documented in this encounter Care Teams Residential Assistant Relationship Specialty Start Date End Date Kennedi Shaver MD [address] [place] [address] [address] [place] [address] PCP - General 08/22/10 08/01/20 documented as of this encounter
--- OUTSIDE RECORDS SUMMARY | 2024-09-11 15:30 | XMS_ITS | Encounter Summary ---
[facility] Organization [facility] [place] [address] Care Team Providers Care Video Journalist Name Role Phone Kennedi Shaver MD Primary Care Provider [phone] Encounter Details Date Type Department Care Team (Latest Contact Info) Description 03/08/2014 12:10 PM EDT - 03/09/2014 4:32 PM EDT Hospital Encounter [address] [place] [address] Billie Rush MD [facility] [place] [address] Discharge Disposition: Home Social History Tobacco Use [...] Sign Reading Time Taken Comments Blood Pressure 121/61 03/09/2014 3:46 PM EDT Pulse 57 03/09/2014 3:46 PM EDT Temperature 36.9 ??C (98.4 ??F) 03/09/2014 3:46 PM ED T Respiratory Rate 18 03/09/2014 3:46 PM EDT Oxygen Saturation 95% 03/09/2014 3:46 PM EDT Inhaled Oxygen Concentration - - Weight 90.7 kg (200 lb) 03/08/2014 9:03 PM EDT Height 182.9 cm (6' 0.01) 03/08/2014 9:03 PM ED T Body Mass Index 27.12 03/08/2014 9:03 PM EDT documented in this encounter Discharge Instructions * Patient Instructions* Keanu Norris Ni - 03/08/2014 7:11 PM EDT Call your doctor if you develop: Fever greater than 101.3 degrees Farenheit (38.5 degrees Celcius), chills, nausea or vomiting. Alsocall if you develop severe pain not relieved by your prescribed oral pain medicine. CALL THE GENERAL SURGERY CLINIC DURING WORKING HOURS AT , OR CALL AFTERCLINIC HOURS, WEEKENDS AND HOLIDAYS: ASK FOR THE GENERAL SURGERY RESIDENT MEDICAL SCHEDULER IF ANY OF THE ABOVE OCCUR. Activity level: Increase your activity slowly. You may tire easily, so frequent rest periods may be necessary. Do not lift more than 10 pounds for 4 weeks. Walk three times a day. Use common sense. Don't exhaust yourself. Diet: You should follow a post Anai diet, as instructed by the director outpatient services in the hospital for a period of approximately 3 weeks. The main purpose of this diet is to have you consume foods that will slide easily down into your stomach. Most foods when well chewed should pass through the esophagus and into your stomach. However, patients do not always chew foods well enough. Slow, thorough chewing isrecommended. Moistening foods with sauce, gravy, syrup or other liquids can be helpful. You should consume only very soft, small particle foods. You should not eat bread or drink carbonated beverages. You should start with more bland foods and if these are tolerated you may increase the amount of spice in your food. If you find there are foods that don't agree with you, try these sparingly until y ou can tolerate them. You need to remain in an upright position for 30-60 minutes after you eat. You may find that you need to eat smaller meals with frequent between meal snacks to get enough calories. Pills: Please crush all pills for 4 weeks. Pain: Roxicodone elixir for pain, as directed. Driving: Do not drive while taking narcotic pain medications such as Roxicodone. Shower/Bath: You may shower and let water run over wound 48 hours after your surgery. No soaking baths or swimming for 2 weeks from surgery. Urinating: You had difficulty urinating after surgery, which can be normal. You were taught how to self-catheterize and were sent home with supplies to do so. If you go six hours and are unable to urinate, you should self-catheterize so your bladder does not get a stretch injury. Usually you should regain thesensation to void within 24-48 hours from surgery. If you continue to have issues, please discuss with your PCP and Urologist. Wound Care: Once showering, wash your incision(s) daily with soap and rinse well, pat dry. Assess for any signsof infection such as increased redness, pain, warmth or drainage. The Steri-Strips will fall off in7-10 days. The brown bandaids can be removed at any time. Follow-up: You have a follow-up appointment scheduled to see Dr. Rush at the [facility]. You will receive a letter in the mail confirming the appointment date and time. Your follow-up is very important to us. Please call [phone] if you do not hear from us within 7 days of discharge or if you need to change the appointment date/time. documented in this encounter Medications at Time of Discharge Medication Sig Dispensed Refills Start Date End Date acetaminophen (TYLENOL) 650 mg/20.3 mL oral liquid Take 20.3 mLs by mouth every 4 hours as needed. 03/09/2014 06/29/2019 oxyCODONE (ROXICODONE) 5 mg/5 mL solution Take 5-10 mLs by mouth every 4 hours as needed for Pain. 100 mL 0 03/09/2014 04/06/2014 DUTASTERIDE/TAMSULOSIN HCL (ARNOL ORAL) Take by mouth daily. ZOLPIDEM TARTRATE (AMBIEN ORAL) 12/05/2010 10/04/2020 pantoprazole (PROTONIX) 40 mg tablet 12/05/2010 04/19/2015 documented as of this encounter Progress Notes * Sussy Ko RN - 03/09/2014 4:25 PM EDT Discharge instructions reviewed with pt, who verbalized understanding of all information. Pt instructed on self-catheterization & able to perform successfully x1 here in hospital. Sent with cath supplies. Prescriptions sent to [facility] & IV removed. Pt declined wheelchair escort to private car. * Margaux Alcantar RN - 03/09/2014 3:05 PM EDT Record reviewed and patient discussed with multidisciplinary team. No discharge needs identified atthis time. CRC remains available as needed for coordination of care and discharge planning. Margaux Alcantar RN Pager# [phone] Clinical Family Preservation Worker Office of Care Management * Nona Aguila DT - 03/09/2014 1:27 PM EDT Nutrition Services - Education Note Chidi Carbone : 1945 AGE: 68 y.o. MedDx/PMHx: Anai Reason for Nutrition Intervention: Consult Diet Order: Anai Appetite: poor Food allergies: none Ht Readings from Last 3 Encounters: 03/08/14 182.9 cm (6' 0.01) 03/08/14 182.9 cm (6' 0.01) 11/18/13 182.9 cm (6') Wt Readings from Last 3 Encounters: 03/08/14 90.719 kg (200 lb) 03/08/14 90.719 kg (200 lb) 11/18/13 90.266 kg (199 lb) Body mass index is 27.12 kg/(m^2). Education: Anai dietary guidelines. Verbalized good understanding. Education material, with means of contact provided. Assessment: Patient verbalized good understanding of Anai guidelines. I have provided contact information in case any further questions should arise. Nutrition Plan: Diet: Anai Encourage good po intake. Monitor weight. Support and encouragement provided. Nutrition services to follow weekly thru hospital course unless consulted in the interim. LAINA Parsons * Maria Isabel Pandey MD - 03/09/2014 6:48 AM EDT General Surgery Resident Inpatient Progress Note ID: Chidi Carbone is a 68 y.o. male s/p anai fundoplication 24hr events: ?? Some neck pain last night. Otherwise no events. Subjective: Doing well this morning. Sebastian came out. Denies nausea. O: Last value Range last 24hrs Temperature Temp: 36.7 ??C (98.1 ??F) Temp: [36.4 ??C (97.5 ??F)-36.8 ??C (98.2 ??F)] Heart Rate Heart Rate: 88 Heart Rate: [53-88] Blood Pressure BP: 131/79 mmHg BP: (108-137)/(59-83) Respiratory Rate Resp: 18 Resp: [12-18] SpO2 SpO2: 96 % SpO2: [93 %-98 %] 03/08 0701 - 03/09 0700 In: 3142.1 [P.O.:660; I.V.:2482.1] Out: 717 [Urine:710] Physical Exam: General: NAD, resting comfortably in bedside recliner CVS: RRR Pulm: CTAB Abd: soft, nontender, non-distended, incisions with some dry drainage, no swelling Skin: warm, dry No results found for this basename: WBC:5,HGB:5,HCT:5,PLATELET:5,PT:5,INR:5,PTT:5 in the last 72 hours No results found for this basename: NA:5,K:5,CL:5,CO2:5,BUN:5,CREATININE:5,GLUCOSE:5,CALCIUM:5,MAGNESIUM:5,PHOS:5 in the last 72 hours NEW IMAGING: ?? ASSESSMENT: Chidi Carbone is a 68 y.o. male s/p anai fundoplication. PLAN: Doing well. Advance to Anai full liquids. Keep IVF at low rate. Must void since sebastian has come out. DC SHIP KEEPER and switch to PO Pain meds. Likely DC today DC SHIP KEEPER. Oxycodone PRN. Anai full liquids IVF @ 50/hr DC Sebastian- must void Encourage IS and ambulation. * Deborah Davidson RN - 03/08/2014 11:30 PM EDT 2030: Patient admitted to room 410A from PACU in standard hospital bed. present but not staying overnight. Pt A & O x 4, VSS on 2-3L NC, denies CP/SOB/N/V. Patient denies pain at abdominal lap sites, but c/o 5/10 posterior neck pain despite Dilaudid SHIP KEEPER. MD Gimenez advised and came to bedsideto evaluate patient. Order received for Lidoderm patch and heating pad applied. Pt oriented to room, staff and floor routine. Call lundy in reach, will continue to monitor. * Uli Gimenez - 03/08/2014 9:34 PM EDT SURGERY POST-OP NOTE Chidi Carbone is a 68 y.o. male s/p laparoscopic anai fundoplasty Subjective Pain well-controlled in abdomen. Slight nausea and occasional belching, which improves this. Deniesvomiting, CP, SOB. Complaining of moderate diffuse neck pain, which he states is an exacerbation ofsimilar neck pain he has had previously at home. Objective Temp: [36.4 ??C (97.5 ??F)-36.8 ??C (98.2 ??F)] Heart Rate: [53-69] Resp: [12-18] BP: (128-137)/(59-83) SpO2: [93 %-98 %] I/O this shift: In: 45 [I.V.:45] Out: 35 [Urine:35] Physical Exam GEN: NAD. Resting comfortably. HEENT: Diffuse tenderness C7-T1 midline and paraspinals. ROM intact. CV: RRR CHEST: CTAB. ABD: Soft, nontender to light palpation. Laparoscopic incisional dressing sites x6 clean and dry without drainage or erythema. EXTR: Moving spontaneously. 2+ pulses bilaterally. SCDs in place. Assessment/Plan Chidi Carbone is a 68 y.o. male s/p laparoscopic anai fundoplasty. Stable post-op. - heating pack to neck - tylenol liquid PRN neck or abdominal pain - Pain well-controlled on current regimen. - Hemodynamically stable. - UOP adequate, continue to monitor. - SCDs in place. - Continue post-op plan per primary team. * Edwardo Alvarez RN - 03/08/2014 8:20 PM EDT 1905- Pt arrived in PACU 6L simple mask, Lungs CTA, documented in this encounter H&P Notes * Maria Isabel Pandey MD - 03/08/2014 2:14 PM EDT Patient Name: Chidi Carbone Patient Age: 68 y.o. Birthdate: 1945 Admit date: 03/08/2014 Attending Physician: Billie Rush MD CC: Sol's Esophagus HPI: (from clinic note) Chidi Carbone is a 67-year-old gentleman referred by Dr. Nino Rochafor evaluation of a possible Anai fundoplication. 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 Most recently he had endoscopy in September with the thought towards ablation. However, he had active esophagitis at the time despite PPI therapy. Therefore, Dr. Rocha has referred him for a consideration of Anai fundoplication prior to further ablation. He did have biopsies done of his esophagus at that point consistent with metaplasia, but no dysplasia. He has never had any surgery except for an appendectomy as a young child. He has not had esophageal motility. He is here today with his significant other. They had extensive questions appropriately towards different treatment options. I emphasized that there is no clear cut evidence that Anai fundoplication will rest or slow the progression of Sol's to esophageal cancer, but there is some data to suggest that is true, but not a compelling amount. There have been no changes since he was last seen in clinic. PM/SH: No past medical history on file. Past Surgical History Procedure Date ??? Upper gi endoscopy, exam 02/13/2011 UPPER GI ENDOSCOPY performed by NINO ROCHA I at [facility] ??? Upper gi endoscopy, biopsy 11/27/2011 UPPER GASTROINTESTINAL ENDOSCOPY,WITH BIOPSY SINGLE OR MULTIPLE performed by NINO ROCHA I at [facility] ??? Upper gi endoscopy, tumor ablatn 04/22/2012 ENDOSCOPY, UPPER GI, W\ABLATION TUMOR\POLYP\LESION performed by NINO ROCHA I at [facility] ??? Upper gi endoscopy, biopsy 04/22/2012 UPPER GASTROINTESTINAL ENDOSCOPY,WITH BIOPSY SINGLE OR MULTIPLE performed by NINO ROCHA I at [facility] ??? Upper gi endoscopy, exam 05/12/2013 UPPER GI ENDOSCOPY performed by Nino Rocha MD at [facility] ??? Upper gi endoscopy, biopsy 05/12/2013 UPPER GASTROINTESTINAL ENDOSCOPY,WITH BIOPSY SINGLE OR MULTIPLE performed by Nino Rocha MD at [facility] ??? Upper gi endoscopy, biopsy 10/20/2013 UPPER GASTROINTESTINAL ENDOSCOPY,WITH BIOPSY SINGLE OR MULTIPLE performed by Nino Rocha MD at [facility] ALL: No Known Allergies MED: No current facility-administered medications on file prior to encounter. Current Outpatient Prescriptions on File Prior to Encounter Medication Sig Dispense Refill ??? DUTASTERIDE/TAMSULOSIN HCL (ARNOL ORAL) Take by mouth daily. ??? ZOLPIDEM TARTRATE (AMBIEN ORAL) ??? pantoprazole (PROTONIX) 40 mg tablet Social history: History Social History ??? Marital Status: Spouse Name: N/A Number of Children: N/A ??? Years of Education: N/A Occupational History ??? Not on file. Social History Main Topics ??? Smoking status: Former Smoker -- 15 years ??? Smokeless tobacco: Former User Quit date: 02/13/1978 ??? Alcohol Use: 8.4 oz/week 14 Glasses of wine per week ??? Drug Use: No ??? Sexually Active: Other Topics Concern ??? Not on file Social History Narrative ??? No narrative on file Family history: Noncontributory ROS: As stated above, otherwise remainder of 10-point system review is negative Physical Exam: Temp: [36.8 ??C (98.2 ??F)] Heart Rate: [62] Resp: [15] BP: (137)/(76) SpO2: [97 %] Gen: NAD, pleasant man Neuro: grossly intact CV:RRR Pulm: CTAB GI:abdomen is soft, nontender No results found for this or any previous visit (from the past 24 hour(s)). Proceed with planned procedure documented in this encounter Nursing Notes * Celeste Peter RN - 03/08/2014 4:50 PM EDT Patient identified upon entering OR, and moved himself to the OR table. Compression stockings applied and unit was turned on. Padded safety strap applied,a dn all lines secured. Once asleep, patient was placed in correct position,, draped, and prepped for surgery. Time Out was done and OR team agrees to proceed. documented in this encounter Miscellaneous Notes * Discharge Summary - Keanu Norris - 03/09/2014 2:30 PM EDT MINIMALLY INVASIVE SURGERY Inpatient - Discharge Summary Patient Name: Chidi Carbone Patient Age: 68 y.o. : 1945 Attending Physician: Billie Rush MD Date of Admission: 03/08/2014 Date of Discharge: 03/09/2014 Diagnosis: Sol's Esophagus Incidental Findings: HPI and Hospital Course: Chidi Carbone is a 68 y.o. male admitted on 03/08/2014. HPI: Chidi Carbone is a 67-year-old gentleman referred by Dr. Nino Rocha for evaluation of a possible Anai fundoplication. He is a gentleman that is being followed longitudinally by Dr. Rocha for Slo's esophagus and has been considered for Sol's ablation. Most recently he had endoscopy in September with the thought towards ablation. However, he had active esophagitis at the time despite PPI therapy. Therefore, Dr. Rocha has referred him for a consideration of Anai fundoplication prior to further ablation. He did have biopsies done of his esophagus at that point consistent with metaplasia, but no dysplasia. He has never had any surgery except for an appendectomy as a young child. He has not had esophageal motility. He is here today with his significant other. Theyhad extensive questions appropriately towards different treatment options. I emphasized that there is no clear cut evidence that Anai fundoplication will rest or slow the progression of Sol's to esophageal cancer, but there is some data to suggest that is true, but not a compelling amount. I spent 40 minutes of our 45 minutes today with him in [id number] conversation regarding issues of the path of physiology of acid reflux, as well as treatment options, as well as risks and benefits ofsurgery. If he were interested in surgery he would require a preoperative esophageal motility. I men tioned the risks of surgery to include the possibility of infection, the possibility of bleeding requiring transfusion, the possibility of injury to the esophagus or stomach, and possibility of needing to convert to the open surgery. Postop he is likely to experience a component of early satiety, dysphagia, and bloating. The majority of these symptoms decrease the further he gets out from surgery. Overall they both seemed very well informed and would like to proceed. We will go ahead and give him a date for esophageal motility, as well as a tentative date for surgery. He seems comfortable with that plan. Surgery went well and the patient progressed well post-operatively. Chidi Carbone's pain was adequately controlled, he was maintaining adequate oxygen saturation onroom air, and was hemodynamically stable. He was tolerating a diet without abdominal complaints andvoiding adequately. WBC and Hgb were stable. He was ambulating. Chidi Carbone was evaluated by the Surgery Team and deemed medically stable for discharge on March 09, 2014. Updated Allergies/ADRs: No Known Allergies Operations/Major Procedures: Operations: 03/08/2014 Surgeon(s) and Role: * Billie Rush MD - Primary * Maria Isabel Pandey MD - Resident-Surgeon Adnrew: Procedure(s): LAPAROSCOPIC AANI FUNDOPLASTY Pending Lab Data at Discharge: None. Condition at Discharge: Stable Discharge to: Home Discharge Conditions/Prognosis: Stable Discharge Medications: The following medications have been prescribed for you. If you notice any adverse reactions to your medications, please contact your primary care physician immediately or go tothe nearest Emergency Department. Your Medications As of 03/09/2014 2:52 PM Notice Some of the medications listed here do not show instructions, such as how often to take the medication. Ask your doctor or nurse how to use these medications. New Medications Dose Details acetaminophen 650 mg/20.3 mL oral liquid Commonly known as: TYLENOL Take 20.3 mLs by mouth every 4 hours as needed. 650 mg Refills: 0 oxyCODONE 5 mg/5 mL solution Commonly known as: ROXICODONE Take 5-10 mLs by mouth every 4 hours as needed for Pain. 5-10 mg Quantity: 100 mL Refills: 0 Continued medications, unchanged Dose Details AMBIEN ORAL (Ask your doctor or nurse how to take this medication.) Refills: 0 ARNOL ORAL Take by mouth daily. Refills: 0 PROTONIX 40 mg tablet (Ask your doctor or nurse how to take this medication.) Generic drug: pantoprazole Refills: 0 Follow-up Care & Plans: For questions, orders or appointments related to your continuing care after your discharge, you or your provider should contact the physician that managed that part of your care. General Surgery - [phone]: PCP: KENNEDI SHAVER MD, . Please follow-up with your PCP in 1-2 weeks or sooner as needed. Scheduled Appointments: The following appointments have been scheduled on your behalf: Future Appointments and Orders Future Appointments: Provider: Department: Dept Phone: Center: 04/06/2014 3:20 PM Billie Rush MD General Surgery [phone] [facility] Outpatient Services/Studies: No discharge procedures on file. Instructions Given to Patient at Discharge: Patient Instructions Call your doctor if you develop: Fever greater than 101.3 degrees Farenheit (38.5 degrees Celcius), chills, nausea or vomiting. Alsocall if you develop severe pain not relieved by your prescribed oral pain medicine. CALL THE GENERAL SURGERY CLINIC DURING WORKING HOURS AT , OR CALL AFTERCLINIC HOURS, WEEKENDS AND HOLIDAYS: ASK FOR THE GENERAL SURGERY RESIDENT MEDICAL SCHEDULER IF ANY OF THE ABOVE OCCUR. Activity level: Increase your activity slowly. You may tire easily, so frequent rest periods may be necessary. Do not lift more than 10 pounds for 4 weeks. Walk three times a day. Use common sense. Don't exhaust yourself. Diet: You should follow a post Anai diet, as instructed by the director outpatient services in the hospital for a period of approximately 3 weeks. The main purpose of this diet is to have you consume foods that will slide easily down into your stomach. Most foods when well chewed should pass through the esophagus and into your stomach. However, patients do not always chew foods well enough. Slow, thorough chewing isrecommended. Moistening foods with sauce, gravy, syrup or other liquids can be helpful. You should consume only very soft, small particle foods. You should not eat bread or drink carbonated beverages. You should start with more bland foods and if these are tolerated you may increase the amount of spice in your food. If you find there are foods that don't agree with you, try these sparingly until y ou can tolerate them. You need to remain in an upright position for 30-60 minutes after you eat. You may find that you need to eat smaller meals with frequent between meal snacks to get enough calories. Pills: Please crush all pills for 4 weeks. Pain: Roxicodone elixir for pain, as directed. Driving: Do not drive while taking narcotic pain medications such as Roxicodone. Shower/Bath: You may shower and let water run over wound 48 hours after your surgery. No soaking baths or swimming for 2 weeks from surgery. Urinating: You had difficulty urinating after surgery, which can be normal. You were taught how to self-catheterize and were sent home with supplies to do so. If you go six hours and are unable to urinate, you should self-catheterize so your bladder does not get a stretch injury. Usually you should regain thesensation to void within 24-48 hours from surgery. If you continue to have issues, please discuss with your PCP and Urologist. Wound Care: Once showering, wash your incision(s) daily with soap and rinse well, pat dry. Assess for any signsof infection such as increased redness, pain, warmth or drainage. The Steri-Strips will fall off in7-10 days. The brown bandaids can be removed at any time. Follow-up: You have a follow-up appointment scheduled to see Dr. Rush at the [facility]. You will receive a letter in the mail confirming the appointment date and time. Your follow-up is very important to us. Please call [phone] if you do not hear from us within 7 days of discharge or if you need to change the appointment date/time. General Instructions None Future Appointments and Orders Future Appointments: Provider: Department: Dept Phone: Center: 04/06/2014 3:20 PM Billie Rush MD General Surgery [phone] [facility] Call your doctor if: Please call your doctor immediately or go to an Emergency Department if you notice worsening pain not controlled by pain medications, uncontrolled headache, vision changes, chest pain, difficulty breathing, persistent nausea and vomiting, new redness or swelling in any extremities, new onset weakness or changes in sensation, or for any fevers greater than 101.3 F. Your care was managed by the General Surgery Team at [facility]. If you have any questions or concerns, please feel free to contact us. Provider Contact Information: General Surgery Clinic: [facility] (after business hours): CC: KENNEDI SHAVER MD Signed: 03/09/2014 * Op Note - Billie Rush MD - 03/08/2014 6:42 PM EDT [facility] Operative Note Patient Name: Chidi Carbone : [id number] MR#: [id number] Case Date: 03/08/2014 Surgeon: Surgeon(s) and Role: * Billie Rush MD - Primary * Maria Isabel Pandey MD - Resident-Surgeon Andrew Preoperative diagnosis: GERD Postoperative diagnosis: GERD Procedure(s): LAPAROSCOPIC ANAI FUNDOPLASTY Preoperative Diagnosis: Gastroesophageal reflux disease and hiatal hernia. Postoperative Diagnosis: Gastroesophageal reflux disease and hiatal hernia. Procedure Performed: Laparoscopic Anai fundoplication and hiatal hernia repair. Anesthesia: General endotracheal anesthesia. Complications: None. Indications for Procedure: The patient is a 59-year-old male with long-standing history of gastroesophageal reflux disease. Following appropriate preoperative evaluation and review of his therapeuticoptions, he has elected to undergo a laparoscopic Anai fundoplication. Operative Findings: The patient was noted to have a large hiatal hernia and a significant amount ofparaesophageal scarring. He underwent a 3-stitch, 2.5-cm fundoplication performed over a 60-Moroccan bougie. There were no intraoperative complications. Details of Operation: The patient was brought to the Operating Room and placed in the supine position. Following uneventful induction of general endotracheal anesthesia, a Sebastian catheter was placed, as well as Venodyne stockings, and an orogastric tube. His legs were then spread using the straight-leg extensions. The abdomen was prepped and draped in the usual sterile fashion. A small incision was made at the base of the umbilicus followed by insertion of a Veress needle into the peritoneal cavity. A pneumoperitoneum to 15- mmHg pressure was obtained without difficulty. The first trocar was a10-mm trocar placed 15 cm inferior to the xiphoid just left of midline. Through this, a 45-degree la paroscope was inserted. All remaining trocars were inserted under direct visualization. The next trocar was a 10-mm trocar placed 10 cm along the left costal margin. The next trocar was a 5-mm trocarplaced 20 cm along the left costal margin. The next trocar was a 5-mm trocar placed midway between the left lateral trocar and the umbilicus. The next trocar was a 10-mm trocar placed 10 cm along theright costal margin. Through this, an expandable fan retractor was positioned below the left lobe of the liver which was then retracted cephalad and held in place using mechanical arm. The next trocar was a 5-mm trocar placed in the right epigastrium. With the surgeon standing between the patient'slegs, the epiphrenic fat pad was grasped and retracted inferiorly to the patient's left, placing the hepatogastric omentum on stretch which was then divided using the harmonic scalpel. A blunt plane was developed between the right shayla of the diaphragm and the esophagus. Multiple cardiophrenic attachments were then taken down in the region of the angle of His. We then mobilized the fundus of the s tomach by beginning approximately one-half the way down the greater curvature of the stomach. All short gastric vessels and posterior gastric attachments were divided up to the angle of His. We then developed a posterior esophageal window under direct visualization and the anterior and posterior vagus nerves were left adherent to the wall of the esophagus. The esophagus was then encircled using a Josie which was held in place using Endoloop. Further paraesophageal dissection was performed until we had obtained approximately 3 cm of tension- free intraabdominal esophagus. At this point, the diaphragmatic hiatus was approximated using interrupted sutures of 0 Nurolon tied over Ulises pledgets. We then wrapped the stomach posterior to the esophagus and a 60-Moroccan bougie was passed by Anesthesiology down the esophagus into the stomach without complication. With the bougie in place, a 3- stitch, 2.5-cm fundoplication was performed. Each bite of the fundoplication included fundus, esophagus, and fundus. Care was taken to avoid injury to the anterior vagus nerve with the esophageal suture bites. Following completion of the fundoplication, the bougie was removed. The abdomen was irrigated. Excellent hemostasis was assured. The Pasco drain was cut and removed. The liver retractor wasreleased and removed. All trocars were removed under direct visualization and hemostasis was assured at the insertion site. The pneumoperitoneum was evacuated. All trocar sites were closed at the skin level using a running subcuticular closure of 4-0 Vicryl followed by Steri-Strips, followed by Band-Aids. Overall, the patient tolerated the procedure well and was taken to the recovery room postoperatively in stable condition. * Brief Op Note - Billie Rush MD - 03/08/2014 6:41 PM EDT Brief Operative Note Patient Name: Chidi Carbone : [id number] MR#: [id number] Case Date: 03/08/2014 Surgeon: Surgeon(s) and Role: * Billie Rush MD - Primary * Maria Isabel Pandey MD - Resident-Surgeon Andrew Preoperative diagnosis: GERD Postoperative diagnosis: GERD Procedure(s): LAPAROSCOPIC ANAI FUNDOPLASTY Anesthesia: General Findings: large hiatal hernia Complications: none Fluids: 1500cc Estimated Blood Loss: 7cc Drains: none Disposition: pacu Condition: stable (Please see the Surgical Encounter Summary for any Implant and Specimen details pertinent to this patient.) * OR Attestation - Billie Rush MD - 03/08/2014 6:40 PM EDT Attestation: Case Date: 03/08/2014 I was the attending for the procedure and was present throughout the operation and supervised the resident BILLIE RUSH MD 03/08/2014 * Miscellaneous - ProviderDawson - 03/08/2014 2:26 PM EDT documented in this encounter Plan of Treatment Upcoming Encounters Date Type Department Care Team (Latest Contact Info) Description 09/29/2024 4:30 PM EST Hospital En[place] [phone] Lizet Wilkes MD [facility] [place] [address] 09/29/2024 4:30 PM EST - 09/29/2024 5:00 PM EST Surgery Gastroenterology at [place] [phone] Lizet Wilkes MD [facility] [place] [address] EGD, UPPER GI ENDOSCOPY (WRVU 2.09) 11/09/2024 10:00 AM EST Laboratory Appointment [place] [facility] [place] [address] [place] [phone] 11/09/2024 11:00 AM EST Office Visit Hematology and Oncology at [place] [phone] Faith Caba MD [facility] [address] [place] [address] 11/09/2024 12:00 PM EST Appointment Hematology and Oncology at [place] [phone] Scheduled Procedures Name Priority Associated Diagnoses Date/Ti me EGD, UPPER GI ENDOSCOPY (WRVU 2.09) Gastroesophageal reflux disease with esophagitis, unspecified whether hemorrhage 09/29/2024 4:30 PM EST documented as of this encounter Procedures Procedure Name Priority Date/Time Associated Diagnosis Comments LAPAROSCOPIC ANAI FUNDOPLASTY (WRVU 18.1) 03/08/2014 3:00 PM EDT GERD documented in this encounter Visit Diagnoses Not on filedocumented in this encounter Administered Medications Inactive Administered Medications - up to 3 most recent administrations Medication Order MAR Action Action Date Dose Rate Site acetaminophen (TYLENOL) 650 mg/20.3 mL oral liquid 1,000 mg 1,000 mg, Oral, EVERY 6 HOURS PRN, Starting on 03/08/14 at 2138, Until Tu03/09/14 at 1836, Fever, Maximum dose of acetaminophen is 4,000 mg from all sources in 24 hours., Routine Given 03/09/2014 2:11 PM EDT 1,000 mg Given 03/09/2014 6:52 AM EDT 1,000 mg finasteride (PROSCAR) tablet 5 mg 5 mg, Oral, DAILY, First dose on Sat03/09/14 at 1300, Until Discontinued, Routine Given 03/09/2014 2:13 PM EDT 5 mg heparin (porcine) subcutaneous injection 5,000 Units 5,000 Units, Subcutaneous, EVERY 12 HOURS SCHEDULED (2 times per day), First dose on Sat03/08/14 at 2100, Until Discontinued, Routine Given 03/09/2014 9:14 AM EDT 5,000 Units Given 03/08/2014 9:47 PM EDT 5,000 Units HYDROmorphone (DILAUDID) 0.2 mg/mL 10mL Syringe 0.2-0.4 mg, Intravenous, EVERY 5 MIN PRN, Pain, Starting on Sat03/08/14 at 1908, Until Sat03/08/14 at 2031, For moderate pain give: 0.2 mg every 5 minute prn For severe pain give: 0.4 mg every 5 minutes prn Maximum dose: 4 mg per hour Hold for respiratory rate less than 10 per minute., PACU Recovery Given 03/08/2014 7:44 PM EDT 0.4 mg Given 03/08/2014 7:29 PM EDT 0.4 mg HYDROmorphone (DILAUDID) 1 mg/mL SHIP KEEPER 30 mL Intravenous, SHIP KEEPER ONLY, Starting on Sat03/08/14 at 1945, Until Sat03/09/14 at 0638, Recovery (Recovery-Hospital Unit) Rate/Dose Verify 03/08/2014 8:56 PM E DT New Syringe/Cartridge 03/08/2014 7:37 PM EDT 30 mg lactated ringers infusion 1,000 mL 1,000 mL, at 100 mL/hr, Intravenous, CONTINUOUS, Starting on Sat03/08/14 at 1400, Until Sat03/08/14 at 2031, Day of Surgery (Day of Procedure) New Bag 03/08/2014 7:36 PM EDT 1,000 mLs 100 mL/hr New Bag 03/08/2014 1:55 PM EDT 1,000 mLs 100 mL/hr lactated ringers infusion 1,000 mL 1,000 mL, at 100 mL/hr, Intravenous, CONTINUOUS, Starting on Sat03/08/14 at 1945, Until Sat03/09/14 at 0638, Recovery (Recovery-Hospital Unit) New Bag 03/09/2014 6:34 AM EDT 1,000 mLs 100 mL/hr Rate/Dose Verify 03/08/2014 8:56 PM EDT 1,000 mLs 100 mL/ hr lactated ringers infusion 50 mL/hr, Intravenous, CONTINUOUS, Starting on Sat03/09/14 at 0700, Until Sat03/09/14 at 1429, Recovery (Recovery-Hospital Unit) Rate/Dose Change 03/09/2014 6:40 AM EDT 50 mL/hr 50 mL/hr lidocaine (LIDODERM) 5 %(700 mg/patch) patch 1 patch 1 patch, Transdermal, DAILY, First dose on Sat03/08/14 at 2300, Until Discontinued, Apply patch(es) for 12 hours, and then remove for 12 hours, Routine Given 03/08/2014 11:20 PM EDT 1 patch 20-Other (document in comment section) ondansetron (ZOFRAN) 8 mg in sodium chloride 0.9% 50 mL 8 mg, Intravenous, EVERY 8 HOURS SCHEDULED, 2 doses, First dose on Sat03/08/14 at 2200, Last dose on Sat03/09/14 at 0600, Administer over 15 Minutes, May repeat dose once in 30 minutes if no relief from previous dose., Recovery (Recovery-Hospital Unit) Given 03/09/2014 2:40 AM EDT 8 mg 216 mL/hr oxyCODONE (ROXICODONE) 5 mg/5 mL solution 5-10 mg 5-10 mg, Oral, EVERY 4 HOURS PRN, Starting on Sat03/09/14 at 0638, Until Sat03/09/14 at 1836, Pain, Routine Given 03/09/2014 4:15 PM EDT 5 mg Given 03/09/2014 2:12 PM EDT 5 mg Given 03/09/2014 11:23 AM EDT 5 mg sodium chloride 0.9 % flush 5 mL 5 mL, Intravenous, 2 TIMES DAILY, First dose on Sat03/08/14 at 2100, Until Discontinued, Recovery (Recovery-Hospital Unit), Routine Given 03/08/2014 9:50 PM EDT 5 mLs tamsulosin (FLOMAX) capsule 0.4 mg 0.4 mg, Oral, DAILY, First dose on Sat03/09/14 at 1300, Until Discontinued, Routine Given 03/09/2014 2:14 PM EDT 0.4 mg zolpidem (AMBIEN) tablet 5 mg 5 mg, Oral, NIGHTLY PRN, Starting on Sat03/08/14 at 2033, Until Sat03/09/14 at 1836, Sleep, Routine Given 03/08/2014 9:47 PM EDT 5 mg documented in this encounter Active and Recently Administered Medications Times are shown in EDT. Scheduled Medication Order 03/07/2014 03/08/2014 03/09/2014 ceFAZolin (ANCEF) 2g in dextrose 5% 50 mL (COMPLETED) 2 g, Intravenous, MEDICAL SCHEDULER TO O.R., 1 dose, On Sat03/08/14 at 0745, Indication for (Active or Suspected): Prophylaxis 1545 (Given - Provider: Maddison Mcclendon MD) finasteride (PROSCAR) tablet 5 mg (CANCELED) 5 mg, Oral, DAILY, First dose on Sat03/09/14 at 1300, Until Discontinued, Routine 1413 (Given - Provid er: Sussy Ko RN) heparin (porcine) subcutaneous injection 5,000 Units (CANCELED) 5,000 Units, Subcutaneous, EVERY 12 HOURS SCHEDULED (2 times per day), First dose on Sat03/08/14 at 2100, Until Discontinued, Routine 2147 (Given - Provider: Jane Cleveland RN) 0914 (Given - Provider: Sussy Ko RN) lidocaine (LIDODERM) 5 %(700 mg/patch) patch 1 patch (CANCELED)(Linked Group 1) 1 patch, Transdermal, DAILY, First dose on Sat03/08/14 at 2300, Until Discontinued, Apply patch(es) for 12 hours, and then remove for 12 hours, Routine 2320 (Given - Provider: Deborah Davidson RN - Comment: posterior neck) ondansetron (ZOFRAN) 8 mg in sodium chloride 0.9% 50 mL (CANCELED) 8 mg, Intravenous, EVERY 8 HOURS SCHEDULED, 2 doses, First dose on Sat03/08/14 at 2200, Last dose on Sat03/09/14 at 0600, Administer over 15 Minutes, May repeat dose once in 30 minutes if no relief from previous dose., Recovery (Recovery-Hospital Unit) 0240 (Given - Provid er: Deborah Davidson RN) sodium chloride 0.9 % flush 5 mL (CANCELED) 5 mL, Intravenous, 2 TIMES DAILY, First dose on Sat03/08/14 at 2100, Until Discontinued, Recovery (Recovery-Hospital Unit), Routine 2150 (Given - Provider: Deborah Davidson RN) 0900 (Not Given - Provider: Sussy Ko, NUZHAT - Reason: Order parameters not met) tamsulosin (FLOMAX) capsule 0.4 mg (CANCELED) 0.4 mg, Oral, DAILY, First dose on Sat03/09/14 at 1300, Until Discontinued, Routine 1414 (Given - Provid er: Sussy Ko RN) Continuous Medication Order 03/07/2014 03/08/2014 03/09/2014 HYDROmorphone (DILAUDID) 1 mg/mL SHIP KEEPER 30 mL (CANCELED) Intravenous, SHIP KEEPER ONLY, Starting on Sat03/08/14 at 1945, Until Sat03/09/14 at 0638, Recovery (Recovery-Hospital Unit) 193 (New Syringe/Cartridge - Provider: Edwardo Alvarez, NUZHAT)2055 (Rate/Dose Verify - Provider: Deborah Davidson RN) lactated ringers infusion 1,000 mL (CANCELED) 1,000 mL, at 100 mL/hr, Intravenous, CONTINUOUS, Starting on Sat03/08/14 at 1400, Until Sat03/08/14 at 2032, Day of Surgery (Day of Procedure) 1355 (New Bag - Provider: Verenice Nguyễn, NUZHAT)1552 (Anesthesia Volume Adjustment - Provider: Maddison Mcclendon MD)1729 (Anesthesia Volume Adjustment - Provider: Jose Call MD)1847 (Anesthesia Volume Adjustment - Provider: Jose Call MD)193 (New Bag - Provider: Edwardo Alvarez, NUZHAT) lactated ringers infusion 1,000 mL (CANCELED) 1,000 mL, at 100 mL/hr, Intravenous, CONTINUOUS, Starting on Sat03/08/14 at 1945, Until Sat03/09/14 at 0638, Recovery (Recovery-Hospital Unit) 2055 (Rate/Dose Verify - Provider: Deborah Davidson RN - Comment: already running from PACU) 0634 (New Bag - Provider: Deborah Davidson RN)0640 (Stopped - Provider: Deborah Davidson RN) lactated ringers infusion (CANCELED) 50 mL/hr, Intravenous, CONTINUOUS, Starting on Sat03/09/14 at 0700, Until Sat03/09/14 at 1429, Recovery (Recovery-Hospital Unit) 0640 (Rate/Dose Thorpe ge - Provider: Deborah Davidson RN) PRN Medication Order 03/07/2014 03/08/2014 03/09/2014 acetaminophen (TYLENOL) 650 mg/20.3 mL oral liquid 1,000 mg 1,000 mg, Oral, EVERY 6 HOURS PRN, Starting on Sat03/08/14 at 2138, Until Sat03/09/14 at 1836, Fever, Maximum dose of acetaminophen is 4,000 mg from all sources in 24 hours., Routine 0652 (Given - Provid er: Deborah Davidson RN)1411 (Given - Provider: Sussy Ko RN) BUpivacaine (PF) (MARCAINE) 0.25 % (2.5 mg/mL) injection (CANCELED) ONCE PRN, Starting on Sat03/08/14 at 1615, Until Sat03/08/14 at 2031, Intra-Operative (Intra-Procedure), Routine 1555 (Given - Provider: Billie Rush MD) HYDROmorphone (DILAUDID) 0.2 mg/mL 10mL Syringe (CANCELED) 0.2-0.4 mg, Intravenous, EVERY 5 MIN PRN, Pain, Starting on Sat03/08/14 at 1908, Until Sat03/08/14 at 2031, For moderate pain give: 0.2 mg every 5 minute prn For severe pain give: 0.4 mg every 5 minutes prn Maximum dose: 4 mg per hour Hold for respiratory rate less than 10 per minute., PACU Recovery 1928 (Given - Provider: Edwardo Alvarez RN)1943 (Given - Provider: Edwardo Alvarez RN) oxyCODONE (ROXICODONE) 5 mg/5 mL solution 5-10 mg 5-10 mg, Oral, EVERY 4 HOURS PRN, Starting on Sat03/09/14 at 0638, Until Sat03/09/14 at 1836, Pain, Routine 0654 (Given - Provid er: Deborah Davidson RN)1123 (Given - Provider: Sussy Ko, NUZHAT)1412 (Given - Provider: Sussy Ko RN)1615 (Given - Provider: Sussy Ko RN) zolpidem (AMBIEN) tablet 5 mg (CANCELED) 5 mg, Oral, NIGHTLY PRN, Starting on Sat03/08/14 at 2033, Until Sat03/09/14 at 1836, Sleep, Routine 2147 (Given - Provider: Jane Cleveland RN) Linked Groups Order Group 1: lidocaine (LIDODERM) 5 %(700 mg/patch) patch 1 patch (CANCELED)Jump to med 1 patch, Transdermal, DAILY, First dose on Sat03/08/14 at 2300, Until Discontinued, Apply patch(es) for 12 hours, and then remove for 12 hours, Routine And lidocaine (LIDODERM) patch REMOVAL (CANCELED) Transdermal, NIGHTLY, First dose on Sat03/09/14 at 2100, Until Discontinued, Remove Lidocaine Patch documented in this encounter Care Teams Video Journalist Relationship Specialty Start Date End Date Kennedi Shaver MD [address] [place] [address] PCP - General 08/22/10 08/01/20 documented as of this encounter
--- OUTSIDE RECORDS SUMMARY | 2024-09-11 15:30 | XMS_ITS | Encounter Summary ---
Author Organization [facility] [place] [address] Care Team Providers Care Lawn Mower Name Role Phone Kennedi Shaver MD Primary Care Provider [phone] Encounter Details Date Type Department Care Team (Late st Contact Info) Description 04/19/2015 3:41 PM EDT Anesthesia [place] [phone] Kendrick Guthrie MD [facility] [place] [address] Anesthesia Record Procedure Summary Procedure Name Responsible Anesthesiologist Anesthesia Start Time Anesthesia Stop Time UPPER GI ENDOSCOPY (Trunk) Kendrick Guthrie MD 04/19/15 1541 04/19/15 1644 Events Date Time Event Comment 04/19/2015 1459 1541 AN Verify 1541 Start 1541 An Start Data 1550 An Induction 1638 an stop data 1644 Stop Meds Name Total Propofol 70 mg Propofol INF 663 mg Lactated Ringers 400 mL * Agents Name O2 * Blood [...] 1354; metacarpal vein right (top of hand); [id number]-[id number] catheter system; 18 gauge, 1 in length; intradermal injection, tolerated well, appears comfortable; 01/13/18 (Auto removal via utility); 0921 (Auto removal via utility) 03/08/14 1354 by Verenice Nguyễn RN 01/13/18 0921 by [employer], User documented in this encounter Social History [...] OR Notes * Anesthesia Preprocedure Evaluation - Kendrick Guthrie MD - 04/19/2015 2:57 PM EDT Pre-Anesthesia Evaluation for: Chidi Carbone a 69 y.o. male. Procedure(s): LAPAROSCOPIC ALLI FUNDOPLASTY Patient Active Problem List Diagnosis ??? GERD (gastroesophageal reflux disease) No past medical history on file. Past Surgical History Procedure Laterality Date ??? Upper gi endoscopy, exam 02/13/2011 UPPER GI ENDOSCOPY performed by PAULA ROCHA I at [facility] ENDOSCOPY ??? Upper gi endoscopy, biopsy 11/27/2011 UPPER GASTROINTESTINAL ENDOSCOPY,WITH BIOPSY SINGLE OR MULTIPLE performed by PAULA ROCHA I at [facility] ENDOSCOPY ??? Upper gi endoscopy, tumor ablatn 04/22/2012 ENDOSCOPY, UPPER GI, W\ABLATION TUMOR\POLYP\LESION performed by PAULA ROCHA I at [facility] ENDOSCOPY ??? Upper gi endoscopy, biopsy 04/22/2012 UPPER GASTROINTESTINAL ENDOSCOPY,WITH BIOPSY SINGLE OR MULTIPLE performed by PAULA ROCHA I at [facility] ENDOSCOPY ??? Upper gi endoscopy, exam 05/12/2013 UPPER GI ENDOSCOPY performed by Paula Rocha MD at [facility] ENDOSCOPY ??? Upper gi endoscopy, biopsy 05/12/2013 UPPER GASTROINTESTINAL ENDOSCOPY,WITH BIOPSY SINGLE OR MULTIPLE performed by Paula Rocha MD at [facility] ENDOSCOPY ??? Upper gi endoscopy, biopsy 10/20/2013 UPPER GASTROINTESTINAL ENDOSCOPY,WITH BIOPSY SINGLE OR MULTIPLE performed by Paula Rocha MD at [facility] ENDOSCOPY ??? Lap, esophagogast fundoplasty 03/08/2014 LAPAROSCOPIC ALLI FUNDOPLASTY performed by Surendra Garcia MD at [facility] MAIN OR History Substance Use Topics ??? Smoking status: Former Smoker -- 15 years ??? Smokeless tobacco: Former User Quit date: 02/13/1978 ??? Alcohol Use: 8.4 oz/week 14 Glasses of wine per week History Drug Use No No Known Allergies Medications: MAR and/or home medications have been reviewed. Physical Exam: There were no vitals filed for this visit. There is no weight on file to calculate BMI. Airway Assessment: Mallampati: I TM distance: >3 FB Neck ROM: full Cardiovascular Assessment: cardiovascular exam normal Pulmonary Assessment: pulmonary exam normal Dental Assessment: - normal exam Misc Assessment: IV access: Peripheral line Anesthesia Plan: ASA 2 general, with a(n) intravenous induction S/p Alli. Plan propofol infusion. Region - Other Informed Consent: Anesthetic plan and risks discussed with patient. Plan discussed with attending and resident. Misc. Assessment: documented in this encounter Plan of Treatment Upcoming Encounters Date Type Department Care Team (Latest Contact Info) Description 09/29/2024 4:30 PM EST Hospital En[place] [phone] Lizet Wilkes MD [facility] [place] [address] 09/29/2024 4:30 PM EST - 09/29/2024 5:00 PM EST Surgery [place] [phone] Lizet Wilkes MD [facility] [place] [address] EGD, UPPER GI ENDOSCOPY (WRVU 2.09) 11/09/2024 10:00 AM EST Laboratory [place] [facility] [place] [address] [place] [phone] 11/09/2024 11:00 AM EST Office Visit Hematology [place] [phone] Faith Caba MD [facility] [place] [address] 11/09/2024 12:00 PM EST Appointment Hematology [place] [phone] Scheduled Procedures Name Priority Associated Diagnoses Date/Ti me EGD, UPPER GI ENDOSCOPY (WRVU 2.09) Gastroesophageal reflux disease with esophagitis, unspecified whether hemorrhage 09/29/2024 4:30 PM EST documented as of this encounter Visit Diagnoses Not on filedocumented in this encounter Administered Medications Inactive Administered Medications - up to 3 most recent administrations Medication Order MAR Action Action Date Dose Rate Site lactated ringers infusion CONTINUOUS PRN, Starting on Sat04/19/15 at 1541, Until Sat04/20/15 at 1920, Anesthesia Intra-op New Bag 04/19/2015 3:41 PM EDT propofol (DIPRIVAN) 10 mg/mL bolus injection (Anesthesia) PRN, Starting on Sat04/19/15 at 1550, Until Sat04/20/15 at 1920, Anesthesia Intra-op Given 04/19/2015 3:50 PM EDT 70 mg propofol (DIPRIVAN) infusion CONTINUOUS PRN, Starting on Sat04/19/15 at 1550, Until Sat04/20/15 at 1920, Anesthesia Intra-op, Routine New Bag 04/19/2015 3:50 PM EDT 200 mcg/kg/min 102 mL/hr documented in this encounter Care Teams Lawn Mower Relationship Specialty Start Date End Date Kennedi Shaver MD [facility] [address] [place] [address] PCP - General 08/22/10 08/01/20 documented as of this encounter
--- OUTSIDE RECORDS SUMMARY | 2024-09-11 15:30 | XMS_ITS | Encounter Summary ---
Author Organization Formerly [facility] [place] [address] Care Team Providers Care Blueprint Clerk Name Role Phone Kennedi Shaver MD Primary Care Provider [phone] Reason for Visit * Reason Comments Establish Care GERD? ALLI Encounter Details Date Type Department Care Team (Late st Contact Info) Description 11/18/2013 9:20 AM EST Office [place] [address] Surendra Garcia MD [facility] [place] [address] GERD (gastroesophageal reflux disease) (Primary Dx) Discharge Disposition: Home Social History [...] Sign Reading Time Taken Comments Blood Pressure 139/77 11/18/2013 9:11 AM EST Pulse 59 11/18/2013 9:11 AM EST Temperature - - Respiratory Rate 16 11/18/2013 9:11 AM EST Oxygen Saturation 100% 11/18/2013 9:11 AM EST Inhaled Oxygen Concentration - - Weight 90.3 kg (199 lb) 11/18/2013 9:11 AM EST Height 182.9 cm (6') 11/18/2013 9:11 AM EST Body Mass Index 26.99 11/18/2013 9:11 AM EST documented in this encounter Progress Notes * Surendra Garcia MD - 11/18/2013 9:59 AM EST Chidi Carbone is a 67-year-old gentleman referred by Dr. Nino Rocha for evaluation of a possible Alli fundoplication. 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 Most recently he had endoscopy in September with the thought towards ablation. However, he had active esophagitis at the time despite PPI therapy. Therefore, Dr. Rocha has referred him for a consideration of Alli fundoplication prior to further ablation. He did [...] there is no clear cut evidence that Alli fundoplication will rest or slow the progression of Sol's to esophageal cancer, but there is some data to suggest that is true, but not a compelling amount. I spent 40 minutes of our 45 minutes today with him in [id number] conversation regarding issues of the path of physiology of acid reflux, as well as treatment options, as well as risks and benefits of surgery. If he were interested in surgery he would require a preoperative esophageal motility. I mentioned the risks of surgery to include the [...] surgery. He seems comfortable with that plan. documented in this encounter Miscellaneous Notes * Miscellaneous - Provider, Scanning - 03/10/2014 9:52 AM EDT documented in this encounter Plan of Treatment Upcoming Encounters Date Type Department Care Team (Latest Contact Info) Description 09/29/2024 4:30 PM EST Hospital Encounter Gastroenterology at [place] [phone] Lizet Wilkes MD [facility] [place] [address] 09/29/2024 4:30 PM EST - 09/29/2024 5:00 PM EST [place] [address] Lizet Wilkes MD [facility] [place] [address] EGD, UPPER GI ENDOSCOPY (WRVU 2.09) 11/09/2024 10:00 AM EST Laboratory Appointment Lab at [facility] [place]ematology Oncology [address] [place] [phone] 11/09/2024 11:00 AM EST Office Visit H[place]ology [place] [phone] Faith Caba MD [facility] DR HEMATOLOGY [place] [address] 11/09/2024 12:00 PM EST Appointment Hematology [place] [phone] Scheduled Procedures Name Priority Associated Diagnoses Date/Ti me EGD, UPPER GI ENDOSCOPY (WRVU 2.09) Gastroesophageal reflux disease with esophagitis, unspecified whether hemorrhage 09/29/2024 4:30 PM EST documented as of this encounter Visit Diagnoses Diagnosis GERD (gastroesophageal reflux disease)- Primary Esophageal reflux Gastroesophageal reflux disease with esophagitis, unspecified whether hemorrhage documented in this encounter Care Teams Blueprint Clerk Relationship Specialty Start Date End Date Kennedi Shaver MD [address] [facility] [address] [place] [address] PCP - General 08/22/10 08/01/20 documented as of this encounter
--- OUTSIDE RECORDS SUMMARY | 2024-09-11 15:30 | XMS_ITS | Encounter Summary ---
Author Organization [facility] [place] [address] Care Team Providers Care Burner Tender Name Role Phone Kennedi Shaver MD Primary Care Provider [phone] Encounter Details Date Type Department Care Team (Late st Contact Info) Description 04/19/2015 2:45 PM EDT - 04/19/2015 3:45 PM EDT [place] [address] Nino Rocha MD [facility] [place] [address] UPPER GI ENDOSCOPY Social History Tobacco Use [...] not get better as expected. Saturday-Saturday Clinic [phone] 8a-5p Same Day Endo [phone] 7a-8p Otherwise contact [phone] and ask to speak to the retail loss prevention specialist workers compensation claims supervisor Follow-up care is a bello part [...] hours as needed. 03/09/2014 06/29/2019 DUTASTERIDE/TAMSULOSIN HCL (RANOL ORAL) Take by mouth daily. ZOLPIDEM TARTRATE (AMBIEN ORAL) 12/05/2010 10/04/2020 documented as of this encounter Progress Notes * Jake Todd RN - 10/22/2014 9:38 AM EST ENDOSCOPY PATIENT HISTORY Name: MAGDALENA HORN : 1945 Age: 68 y.o. Address: [address] [address] (home) Mobile: No relevant phone numbers on [...] ENDOSCOPY performed by NINO ROCHA I at [facility] ENDOSCOPY ??? Upper gi endoscopy, biopsy 11/27/2011 UPPER GASTROINTESTINAL ENDOSCOPY,WITH BIOPSY SINGLE OR MULTIPLE performed by NINO ROCHA I at [facility] ENDOSCOPY ??? Upper gi endoscopy, tumor ablatn 04/22/2012 ENDOSCOPY, UPPER GI, W\ABLATION TUMOR\POLYP\LESION performed by NINO ROCHA I at [facility] ENDOSCOPY ??? Upper gi endoscopy, biopsy 04/22/2012 UPPER GASTROINTESTINAL ENDOSCOPY,WITH BIOPSY SINGLE OR MULTIPLE performed by NINO ROCHA I at [facility] ENDOSCOPY ??? Upper gi endoscopy, exam 05/12/2013 UPPER GI ENDOSCOPY performed by Nino Rocha MD at [facility] ENDOSCOPY ??? Upper gi endoscopy, biopsy 05/12/2013 UPPER GASTROINTESTINAL ENDOSCOPY,WITH BIOPSY SINGLE OR MULTIPLE performed by Nino Rocha MD at [facility] ENDOSCOPY ??? Upper gi endoscopy, biopsy 10/20/2013 UPPER GASTROINTESTINAL ENDOSCOPY,WITH BIOPSY SINGLE OR MULTIPLE performed by Nino Rocha MD at [facility] ENDOSCOPY ??? Lap, esophagogast fundoplasty 03/08/2014 LAPAROSCOPIC MODESTO FUNDOPLASTY performed by Surendra Garcia MD at [facility] MAIN OR Medications: Prior to Admission medications [...] Rocha MD - 04/19/2015 4:32 PM EDT [facility] Operative Note Patient Name: Magdalena Horn : [id number] MR#: [id number] Case Date: 04/19/2015 Surgeon: Surgeon(s) and Role: [...] 4:30 PM EST Hospital Encounter [place] [address] Lizet Wilkes MD [facility] [place] [address] 09/29/2024 4:30 PM EST - 09/29/2024 5:00 PM EST Surgery Gastroenterology at [place] [phone] Lizet Wilkes MD [facility] [place] [address] EGD, UPPER GI ENDOSCOPY (WRVU 2.09) 11/09/2024 10:00 AM EST Laboratory Appointment Lab at [facility] Hematology Oncology [address] [place], [place] [phone] 11/09/2024 11:00 AM EST Office Visit Hematology and Oncology at [place] [phone] Faith Caba MD [facility] [place] [address] 11/09/2024 12:00 PM EST Appointment Hematology and Oncology at [place] [phone] Scheduled Procedures Name Priority Associated Diagnoses Date/Ti [...] (04/19/2015 4:39 PM EDT) Final Diagnosis ? [facility] ? Provider: ?? NINO ROCHA ??Pt. Name: ?? MAGDALENA HORN ?I ? Acc #: ?[id number] ?Pt. ? Col Date: ?? 04/19/2015 ? [...] MD PATHOLOGY/CYTOLO GY ORDERABLES Performing Organization Address [facility] Co de Phone Number [facility] [place] [address] * Specimen to Pathology (surgical or derm) (04/19/2015 4:39 PM EDT) AP Specimen 04/19/2015 4:39 PM EDT 04/19/2015 4:39 PM EDT Narrative [facility] - 04/19/2015 4:39 PM EDT Specimen requisition ordered. ??Separate Pathology report to follow Nino Zarate MD PATHOLOGY/CYTOLO GY ORDERABLES Performing Organization Address [facility] Co de Phone Number [facility] * COLONOSCOPY (04/19/2015 3:15 PM EDT) COLONOSCOPY [facility] Endoscopy ___ Patient Name: Magdalena Horn ? Procedure Date: 04/19/2015 3:15 PM ? Date of : 1945 ? Age: 69 ? Order #: [id number] ? ___ Procedure: ? Colonoscopy Indications: ? High risk colon cancer surveillance: ? Personal history of colonic polyps Providers: ? Nino Rocha MD, Dinora ? NUZHAT Hernandez, [place], ? Preservative Filler Machine Operator Referring MD: ?Kennedi Shaver MD Medicines: ? [...] (04/19/2015 3:14 PM EDT) UPPER GI ENDOSCOPY [facility] Endoscopy ___ Patient Name: Magdalena Horn ? Procedure Date: 04/19/2015 3:14 PM ? Date of : 1945 ? Age: 69 ? Order #: [id number] ? ___ Procedure: ? Upper GI endoscopy Indications: ? For therapy of Sol's esophagus Providers: ? Nino Rocha MD, Dinora ? NUZHAT Hernandez, [place], ? Preservative Filler Machine Operator Referring MD: ?Kennedi Shaver MD Medicines: ? [...] Call for questions or concerns to ? [phone] ? Nino Rocha MD 04/19/2015 4:43 PM This report has been signed electronically. Number of Addenda: 0 Note Initiated On: 04/19/2015 3:14 PM PROVATION 04/19/2015 3:14 PM EDT Kennedi Shaver MD GENERAL SURGICAL ORD [facility] PROVATION documented in this encounter Visit Diagnoses Not on filedocumented in this encounter Active and Recently Administered Medications Care Teams Burner Tender Relationship Specialty Start Date End Date Kennedi Shaver MD [address] [place] [address] [address] [place] [address] PCP - General 08/22/10 08/01/20 documented as of this encounter
--- OUTSIDE RECORDS SUMMARY | 2024-09-11 15:30 | XMS_ITS | Encounter Summary ---
Author Organization [facility] [place] [address] Care Team Providers Care Mixer Operator Vacuum Pan Salt Name Role Phone Kennedi Shaver MD Primary Care Provider [phone] Encounter Details Date Type Department Care Team (Late st Contact Info) Description 06/29/2015 1:00 PM EDT - 06/29/2015 1:30 PM EDT [place] [address] Nino Rocha MD [facility] DR [place] [address] EGD WITH BIOPSY (WRVU 2.39) Social History Tobacco Use Types [...] Sign Reading Time Taken Comments Blood Pressure 115/71 06/29/2015 2:09 PM EDT Pulse 66 06/29/2015 2:09 PM EDT Temperature - - Respiratory Rate 18 06/29/2015 2:09 PM EDT Oxygen Saturation 96% 06/29/2015 2:09 PM EDT Inhaled Oxygen Concentration - - Weight - - Height - - Body Mass Index - - documented in this encounter Discharge Instructions * Discharge Instructions* Sarahi Florez, NUZHAT - 06/29/2015 2:04 PM EDT UPPER GI ENDOSCOPY with THERMAL [...] do not get better as expected. Saturday-Saturday Same Day Endo [phone] 7a-8p Otherwise contact [phone] and ask to speak to the banana expert manager functional Follow-up care is a bello part of your treatment and safety. Be sure to make and go to all appointments, and call your doctor if you are having problems. Instructions have been reviewed and patient expresses understanding * Patient Instructions* Nino Rocha MD - 06/29/2015 1:56 PM EDT Please see Recommendations in the [...] H&P Notes * Nino Rocha MD - 06/29/2015 1:23 PM EDT Gastroenterology and Hepatology Pre-Procedure History and Physical Exam Procedure: Upper endoscopy and possible RFA Indication: Sol's esophagus Patient Active Problem List Diagnosis Code ??? GERD (gastroesophageal reflux disease) 530.81 EXAM: HEENT: Airway examined, oropharynx clear Mallampati Score: II (soft palate, uvula, fauces visible) LUNGS: Clear to auscultation HEART: Regular rate and rhythm, normal S1, S2 ABDOMEN: Normal bowel sounds, soft, non tender, non distended, A/P Proceed with the planned endoscopic procedure. ASA 1 - Normal health patient Sedation Plan: anesthesia, sedation issues Risks and benefits of the procedure explained to the patient. Consent signed. documented in this encounter Miscellaneous Notes * Op Note - Nino Rocha MD - 06/29/2015 1:55 PM EDT [facility] Operative Note Patient Name: Chidi Carbone : [id number] MR#: [id number] Case Date: 06/29/2015 Surgeon: Surgeon(s) and Role: * Nino Rocha MD - Primary Preoperative diagnosis: Dysplastic Sol's esophagus Postoperative diagnosis: Sol's esophagus with dysplasia, RFA and biopsies performed Procedure(s): EGD WITH BIOPSY Attestation: Case Date: 06/29/2015 NINO ROCHA MD 06/29/2015 Full procedure note is documented under the Procedure section of eDH. documented in this encounter Plan of Treatment Upcoming Encounters Date Type Department Care Team (Latest Contact Info) Description 09/29/2024 4:30 PM EST Hospital Encounter [place] [address] Lizet Wilkes MD [facility] [place] [address] 09/29/2024 4:30 PM EST - 09/29/2024 5:00 PM EST [place] [address] Lizet Wilkes MD [facility] [place] [address] EGD, UPPER GI ENDOSCOPY (WRVU 2.09) 11/09/2024 10:00 AM EST Laboratory Appointment Lab at [facility] Hematology Oncology [address] [place] [phone] 11/09/2024 11:00 AM EST Office Visit Hematology [place] [phone] Faith Caba MD [facility] DR HEMATOLOGY [place] [address] 11/09/2024 12:00 PM EST Appointment Hematology [place] [phone] Scheduled Procedures Name Priority Associated Diagnoses Date/Ti me EGD, UPPER GI ENDOSCOPY (WRVU 2.09) Gastroesophageal reflux disease with esophagitis, unspecified whether hemorrhage 09/29/2024 4:30 PM EST documented as of this encounter Procedures Procedure Name Priority Date/Time Associated Diagnosis Comments SURGICAL PATHOLOGY REPORT Routine 06/29/2015 2:06 PM EDT SPECIMEN TO PATHOLOGY Routine 06/29/2015 2:06 PM EDT SPECIMEN TO PATHOLOGY Routine 06/29/2015 2:06 PM EDT SPECIMEN TO PATHOLOGY Routine 06/29/2015 2:06 PM EDT EGD WITH BIOPSY (WRVU 2.39) 06/29/2015 1:26 PM EDT 2 m f/u from 04/19/15 to 06/20/2015make sure esophagitis is healing, no barretts on biopsies [consult] UPPER GI ENDOSCOPY Routine 06/29/2015 12 :44 PM EDT documented in this encounter Results * Surgical Pathology Report (06/29/2015 2:06 PM EDT) Final Diagnosis The signing pathologist has (i) examined the relevant preparation(s) for the specimen(s) and (ii) rendered or confirmed the diagnosis(es). Accession Number: [id number] ?Location: 4T . ?Surgical Pathology DIAGNOSIS A - Esophagus 33 to 32 cm, biopsy: - ??Esophageal squamous mucosa, negative for diagnostic abnormality. B - Esophagus 31 to 30 cm, biopsy: - ??Esophageal squamous mucosa, negative for diagnostic abnormality. C - Esophagus 29 to 27 cm, biopsy: - ??Esophageal squamous mucosa, negative for diagnostic abnormality. CR-0 06/29/15 DNT 06/30/15 Verified by: ? Jostin Joiner MD ?Pathologist ?(Electronic Signature) The attending pathologist whose signature appears on this report has reviewed all diagnostic slides and has edited the gross and/or microscopic portion of the report in rendering the final pathologic diagnosis. CLINICAL INFORMATION Specimen Submitted: A - Esophagus 33 to 32 cm B - Esophagus 31 to 30 cm C - Esophagus 29 to 27 cm Clinical History: Sol 's with dysplasia, status post ablation Clinical Diagnosis: Same SPECIMEN PROCESSING A - Labeled/Fixativ e: Esophagus 33-32 cm, formalin. Quantity/Size: Multiple, 0.1-0.5 cm. Tissue Description: Friable white-vital fragments. Sections/Proces sing: (T3) B - Labeled/Fixativ e: Esophagus 31-30 cm, formalin. Quantity/Size: Multiple, 0.2-0.4 cm. Tissue Description: Friable marroquin-white fragments. Sections/Proces sing: (T2) C - Labeled/Fixativ e: Esophagus 29-27 cm, formalin. Quantity/Size: Multiple, 0.1-0.5 cm. Tissue Description: Friable white-vital fragments. Sections/Proces sing: (T4) ??bda 06/30/2015 4:34 PM EDT [facility] GI Biopsy 06/29/2015 2:06 PM EDT 06/29/2015 2:06 PM EDT GI Biopsy 06/29/2015 2:06 PM EDT 06/29/2015 2:06 PM EDT GI Biopsy 06/29/2015 2:06 PM EDT 06/29/2015 2:06 PM EDT Nino Zarate MD PATHOLOGY/CYTOLO GY ORDERABLES Performing Organization Address [facility] Co de Phone Number TJ TIMGEO [facility] [place] [address] * Specimen to Pathology (surgical or derm) (06/29/2015 2:06 PM EDT) AP Specimen 06/29/2015 2:06 PM EDT 06/29/2015 2:06 PM EDT Narrative [facility]MAKI[facility] - 06/29/2015 2:06 PM EDT Specimen requisition ordered. ??Separate Pathology report to follow Nino Zarate MD PATHOLOGY/CYTOLO GY ORDERABLES Performing Organization Address [facility] Co de Phone Number TJ MCBRIDE * Specimen to Pathology (surgical or derm) (06/29/2015 2:06 PM EDT) AP Specimen 06/29/2015 2:06 PM EDT 06/29/2015 2:06 PM EDT Narrative [facility] VERNONIUM - 06/29/2015 2:06 PM EDT Specimen requisition ordered. ??Separate Pathology report to follow Nino Zarate MD PATHOLOGY/CYTOLO GY ORDERABLES Performing Organization Address [facility] Co de Phone Number TJ MCBRIDE * Specimen to Pathology (surgical or derm) (06/29/2015 2:06 PM EDT) AP Specimen 06/29/2015 2:06 PM EDT 06/29/2015 2:06 PM EDT Narrative [facility]J JUNIORIUM - 06/29/2015 2:06 PM EDT Specimen requisition ordered. ??Separate Pathology report to follow Nino Zarate MD PATHOLOGY/CYTOLO GY ORDERABLES TJ MCBRIDE * UPPER GI ENDOSCOPY (06/29/2015 12:44 PM EDT) UPPER GI ENDOSCOPY [facility] Endoscopy ___ Patient Name: Chidi Carbone ? Procedure Date: 06/29/2015 12:44 PM ? Date of : 1945 ? Age: 69 ? Order #: [id number] ? ___ Procedure: ? Upper GI endoscopy Indications: ? Follow-up of previous ablation ? treatment of Sol's esophagus Providers: ? Nino Rocha MD, Bertha Fabian ? Adrienne Bowen, ? Carpenter Mold Referring MD: ?Kennedi Shaver MD Medicines: ? [...] ? auscultation. ? - ASA Grade Assessment: II - [...] medications, and prior ? anesthesia history. ? - The heart rate, respiratory rate, [...] Z-line was regular and was found 35 cm from the ? incisors. There were 2 scattered islands at 33 cm. ? Focal radiofrequency ablation of Sol's esophagus ? was performed. With the endoscope in place, the ? position and extent of the Sol's mucosa and the ? anatomic landmarks were noted. Gastric and esophageal ? contents were suctioned. The radiofrequency channel ? ablation catheter was introduced through the ? [...] repeated in a likewise fashion to ? the entire area of suspected Sol's mucosa. The ? channel ablation catheter was then removed through ? the endoscope working channel, and the ablation ? catheter was cleaned. The endoscope was left in ? place. The ablation zone was cleaned of coagulative ? debris. The ablation catheter was reinserted into the ? endoscope working channel. A second round of ablation ? was then performed. Energy was applied twice at 12 ? J/cm2 to retreat the areas of Sol's epithelium ? that had been treated with the first series of ? ablation. The ablation catheter was removed through ? the endoscope working channel. The areas of the ? esophagus where Sol's mucosa had been ablated ? were carefully examined. Areas of Sol's esophagus ? were completely treated. Biopsies were taken with a ? cold forceps for histology from 35 to 27 cm around ? the area of treated Sol's. ? Evidence of an anti-reflux surgical site was found in ? the gastric fundus. ? The examined duodenum was normal. ? Impression: ?- Z-line regular, 35 cm from the ? incisors. Treated with radiofrequency ? ablation. Biopsied. ? - An anti-reflux surgical site was ? found. ? - Normal examined duodenum. Recommendation: ?- Continue present medications. ? - Repeat the upper endoscopy in 3 ? months for surveillance based on ? pathology results. ? - Use liquid diet today, and soft ? diet tomorrow, and then diet as ? tolerated. ? Minimal treatment was needed today. ? Nino Rocha MD 06/29/2015 2:43 PM This report has been signed electronically. Number of Addenda: 0 Note Initiated On: 06/29/2015 12:44 PM PROVATION 06/29/2015 12:4 4 PM EDT Kennedi Shaver MD GENERAL SURGICAL ORD ERABLES PROVATION documented in this encounter Visit Diagnoses Not on filedocumented in this encounter Administered Medications Inactive Administered Medications - up to 3 most recent administrations Medication Order MAR Action Action Date Dose Rate Site lactated ringers infusion 50 mL/hr, Intravenous, CONTINUOUS, Starting on Sat06/29/15 at 1245, Until Sat06/29/15 at 1739, Endoscopy (Day of Procedure) New Bag 06/29/2015 12:45 PM EDT 50 mL/hr 50 mL/hr documented in this encounter Active and Recently Administered Medications Times are shown in EDT. Continuous Medication Order 06/27/2015 06/28/2015 06/29/2015 lactated ringers infusion (CANCELED) 50 mL/hr, Intravenous, CONTINUOUS, Starting on Sat06/29/15 at 1245, Until Sat06/29/15 at 1739, Endoscopy (Day of Procedure) 1245 (New Bag - Prov ider: Angel Angel RN)1340 (Anesthesia Volume Adjustment - Provider: Sussy Ac CRNA)1348 (Anesthesia Volume Adjustment - Provider: Sussy Ac CRNA)1353 (Anesthesia Volume Adjustment - Provider: Sussy Ac CRNA) documented in this encounter Care Teams Mixer Operator Vacuum Pan Salt Relationship Specialty Start Date End Date Kennedi Shaver MD [facility] [address] [place] [address] PCP - General 08/22/10 08/01/20 documented as of this encounter
--- OUTSIDE RECORDS SUMMARY | 2024-09-11 15:30 | XMS_ITS | Encounter Summary ---
Author Organization [facility] [place] [address] Care Team Providers Care Transplant Worker Name Role Phone Kennedi Shaver MD Primary Care Provider [phone] Encounter Details Date Type Department Care Team (Latest Contact Info) Description 06/29/2015 12:14 PM EDT - 06/29/2015 2:00 PM EDT Hospital Encounter [place] [address] Nino Rocha MD [facility] [place] [address] Discharge Disposition: Home Social History Tobacco Use [...] Sign Reading Time Taken Comments Blood Pressure 129/73 06/29/2015 12:34 PM EDT Pulse 56 06/29/2015 12:34 PM EDT Temperature - - Respiratory Rate 16 06/29/2015 12:34 PM EDT Oxygen Saturation 97% 06/29/2015 12:34 PM EDT Inhaled Oxygen Concentration - - [...] better as expected. Saturday-Saturday Same Day Endo [phone]-8p Otherwise contact [phone] and ask to speak to the shift boss railroad conductor Follow-up care is a bello part of [...] Rocha MD - 06/29/2015 1:55 PM EDT [facility] Operative Note Patient Name: Chidi Carbone : [id number] MR#: [id number] Case Date: 06/29/2015 Surgeon: Surgeon(s) and Role: [...] Hospital Encounter [place] [address] Lizet Wilkes MD [facility] [place] [address] 09/29/2024 4:30 PM EST - 09/29/2024 5:00 PM EST Surgery [place] [address] Lizet Wilkes MD [facility] [place] [address] EGD, UPPER GI ENDOSCOPY (WRVU 2.09) 11/09/2024 10:00 AM EST Laboratory Appointment Lab at [facility] Hematology Oncology [address] [place] [phone] 11/09/2024 11:00 AM EST Office Visit Hematology [place] [address] Faith Caba MD [facility] [place] [address] 11/09/2024 12:00 PM EST Appointment Hematology [place] [address] Scheduled Procedures Name Priority Associated [...] rendered or confirmed the diagnosis(es). Accession Number: [id number] ?Location: 4T . ?Surgical Pathology DIAGNOSIS A [...] sing: (T4) ??bda 06/30/2015 4:34 PM EDT [facility] GI Biopsy 06/29/2015 2:06 PM EDT 06/29/2015 2:06 PM EDT GI Biopsy 06/29/2015 2:06 PM EDT 06/29/2015 2:06 PM EDT GI Biopsy 06/29/2015 2:06 PM EDT 06/29/2015 2:06 PM EDT Nino Zarate MD PATHOLOGY/CYTOLO GY ORDERABLES Performing Organization Address City/[facility] Co de [place] [address] * Specimen to Pathology (surgical or derm) (06/29/2015 2:06 PM EDT) AP Specimen 06/29/2015 2:06 PM EDT 06/29/2015 2:06 PM EDT Narrative TJ RAE - 06/29/2015 2:06 PM EDT Specimen requisition ordered. ??Separate Pathology report to follow Nino Zarate MD PATHOLOGY/CYTOLO GY ORDERABLES Performing Organization Address [facility] de Phone Number [facility] * Specimen to Pathology (surgical or derm) (06/29/2015 2:06 PM EDT) AP Specimen 06/29/2015 2:06 PM EDT 06/29/2015 2:06 PM EDT Narrative TJ RAE - 06/29/2015 2:06 PM EDT Specimen requisition ordered. ??Separate Pathology report to follow Nino Zarate MD PATHOLOGY/CYTOLO GY ORDERABLES Performing Organization Address [facility] Co de Phone Number [facility] * Specimen to Pathology (surgical or derm) (06/29/2015 2:06 PM EDT) AP Specimen 06/29/2015 2:06 PM EDT 06/29/2015 2:06 PM EDT Narrative ROSALINDALANA MCBRIDE - 06/29/2015 2:06 PM EDT Specimen requisition ordered. ??Separate Pathology report to follow Nino Zarate MD PATHOLOGY/CYTOLO GY ORDERABLES Performing Organization Address [facility]/ZIP Co de Phone Number [facility] * UPPER GI ENDOSCOPY (06/29/2015 12:44 PM EDT) UPPER GI ENDOSCOPY [facility] ___ Patient Name: Chidi Carbone ? Procedure Date: 06/29/2015 12:44 PM ? Date of : 1945 ? Age: 69 ? Order #: [id number] ? ___ Procedure: ? Upper GI endoscopy Indications: ? Follow-up of previous ablation ? treatment of Sol's esophagus Providers: ? Nino Rocha MD, Bertha Fabian ? Adrienne Bowen, ? L Tacker Referring MD: ?Kennedi Shaver MD Medicines: ? [...] CRNA) documented in this encounter Care Teams Transplant Worker Relationship Specialty Start Date End Date Kennedi Shaver MD [facility] [address] [place] [address] PCP - General 08/22/10 08/01/20 documented as of this encounter
--- OUTSIDE RECORDS SUMMARY | 2024-09-11 15:30 | XMS_ITS | Encounter Summary ---
Author Organization [facility] [place] [address] Care Team Providers Care Dental Aide Name Role Phone Kennedi Shaver MD Primary Care Provider [phone] Encounter Details Date Type Department Care Team (Late st Contact Info) Description 03/08/2014 3:06 PM EDT Anesthesia Event [place] [address] [facility] [place] [address] [facility] [place] [address] Anesthesia Record Procedure Summary Procedure Name Responsible Anesthesiologist Anesthesia Start Time Anesthesia Stop Time LAPAROSCOPIC MODESTO FUNDOPLASTY (WRVU 18.1) (Abdomen) Leonardo Grace MD 03/08/14 1506 03/08/14 1905 Events Date Time Event Comment 03/08/2014 1506 Start 1513 AN Verify 1513 An Start Data 1517 An Induction 1520 An Intubation 1522 Anesthesia Ready 1557 Procedure Start 1628 Quick Note Baseline BP 110 s/60s. 1725 Handoff The patient's c lyn was reviewed. The current anestetic course as well as the anesthetic plans were also reviewed. 1806 Quick Note 60 German bougi e passed into esophagus as requested by surgeon. 181 Quick Note Bougie removed 1853 Extubation/LMA Out 1854 an stop data 1905 Stop 03/10/2014 0822 Meds Name Total fentaNYL 375 mcg lidocaine IV 100 mg propofol 380 mg Rocuronium 105 mg PHENYLephrine 480 mcg ePHEDrine 5 mg ondansetron 4 mg dexAMETHasone 4 mg Neostigmine 3 mg Glycopyrrolate 0.6 mg ceFAZolin (ANCEF) 2g in dextrose 5% 50 m L 2 g lactated ringers infusion 1,000 mL 0 mL * Agents Name O2 Air Sevoflurane (et) * Blood No blood administrations on file. Lines, Drains, and Airways Type Details Placement Removal Incision 03/08/14; abdomen; laparoscopic punctures (specify) (Trocar sites.); 05/28/22 (LDA cleanup utility RA#[id number]); 1715 (LDA cleanup utility RA#[id number]) 03/08/14 0000 by Celeste Peter RN 05/28/22 1715 by Dali Menchaca Urethral Catheter 03/08/14; indwelling double lumen catheter (By Truman Estevez [place]); silastic; 16; inserted at this facility; 1; 5; 10; none; urethral catheter removed, tubing intact; 03/09/14; 0300 03/08/14 0000 by Celeste Peter RN 03/09/14 0300 by Deborah Patterson, RN (RETIRED) Peripheral IV Line - Single Lumen 03/08/14; 1354; metacarpal vein right (top of hand); ivua-tms-xlastz catheter system; 18 gauge, 1 in length; intradermal injection, tolerated well, appears comfortable; 01/13/18 (Auto removal via utility); 920 (Auto removal via utility) 03/08/14 1354 by Verenice Nguyễn RN 01/13/18 0921 by Carlito, User ETT Mask Ventilation: Adjunct (2); ETT Type: Cuffed, Oral; ETT Size: 8 mm; Indirect: Video; Notes: Asleep, Pre-O2, Stylette; Attempts: 1; Laryngoscopy Grade: 3; ETT Placement Verified By: Auscultation, Capnometry, Visual; Secured at Teeth: 23 cm; Inserted by: Danelle; Removal Date: 03/08/14; Removal Time: 185203/08/14 1547 by 03/08/14 185 by Jose Call MD documented in this encounter Social History Tobacco [...] OR Notes * Anesthesia Postprocedure Evaluation - Jose Call MD - 03/08/2014 8:28 PM EDT Patient: Chidi Carbone Procedure(s) Performed: Procedure(s): LAPAROSCOPIC MODESTO FUNDOPLASTY Actual Anesthetic: General Patient location: PACU Post-op pain: Adequate analgesia. Immediate post-op pain which became well controlled with Fentanylboluses. Post-op nausea: no nausea or vomiting Last Vitals: Filed Vitals: 03/08/142014 BP: 129/63 Pulse: 64 Temp: 36.8 ??C (98.2 ??F) Resp: 14 Post-op cardiovascular and respiratory status: is stable Level of consciousness: awake, alert and oriented Complications: no apparent complications and tolerated the procedure well Fluid Status: normal * Anesthesia Preprocedure Evaluation - Maddison Mcclendon MD - 03/07/2014 7:50 PM EDT Pre-Anesthesia Evaluation for: Chidi ott 68 y.o. male. Procedure(s): LAPAROSCOPIC MODESTO FUNDOPLASTY Patient Active Problem List Diagnosis ??? GERD (gastroesophageal reflux disease) No past medical history on file. Past Surgical History Procedure Date ??? Upper gi endoscopy, exam 02/13/2011 UPPER GI ENDOSCOPY performed by NINO ROCHA I at [facility] ENDOSCOPY ??? Upper gi endoscopy, biopsy 11/27/2011 UPPER GASTROINTESTINAL ENDOSCOPY,WITH BIOPSY SINGLE OR MULTIPLE performed by NINO ROCHA I at [facility] ENDOSCOPY ??? Upper gi endoscopy, tumor ablatn 04/22/2012 ENDOSCOPY, UPPER GI, W\ABLATION TUMOR\POLYP\LESION performed by NINO ROCHA I at [facility] ENDOSCOPY ??? Upper gi endoscopy, biopsy 04/22/2012 UPPER GASTROINTESTINAL ENDOSCOPY,WITH BIOPSY SINGLE OR MULTIPLE performed by NINO ROCHA I at [facility] ENDOSCOPY ??? Upper gi endoscopy, exam 05/12/2013 UPPER GI ENDOSCOPY performed by Nino Rocha MD at [facility] ENDOSCOPY ??? Upper gi endoscopy, biopsy 05/12/2013 UPPER GASTROINTESTINAL ENDOSCOPY,WITH BIOPSY SINGLE OR MULTIPLE performed by Nino Rocha MD at [facility] ENDOSCOPY ??? Upper gi endoscopy, biopsy 10/20/2013 UPPER GASTROINTESTINAL ENDOSCOPY,WITH BIOPSY SINGLE OR MULTIPLE performed by Nino Rocha MD at [facility] ENDOSCOPY History Substance Use Topics ??? [...] exam normal Dental Assessment: - normal exam [facility] Assessment: IV access: Peripheral line Anesthesia Plan: ASA 2 general, with a(n) intravenous induction Mr. Carbone is a 68 yo 90kg M with poorly controlled GERD here for laparoscopic modesto fundoplication. PMHx: BPH on tamsulosin GERD poorly controlled, has not taken protonix today NKDA. Appropriately NPO. No recent URI. No problems with anesthetics in the past. No recent labs. No cardiac studies on file. Plan: GETA, RSI, standard ASA monitors. Anesthetic plan along with risks discussed with patient. All questions answered. Region - Other Informed Consent: Anesthetic plan and risks discussed with patient. Plan discussed with attending and resident. [facility]. Assessment: documented in this encounter Plan of Treatment Upcoming Encounters Date Type Department Care Team (Latest Contact Info) Description 09/29/2024 4:30 PM EST Hospital [place] [phone] [facility] [place] [address] 09/29/2024 4:30 PM EST - 09/29/2024 5:00 PM EST [place] [phone] [facility] [place] [address] EGD, UPPER GI ENDOSCOPY (WRVU 2.09) 11/09/2024 10:00 AM EST Laboratory Appointment Lab [place] [facility] [place] [address] [place] [phone] 11/09/2024 11:00 AM EST Office Visit [place] [phone] [facility] [place] [address] 11/09/2024 12:00 PM EST Appointment [place] [phone] Scheduled Procedures Name Priority Associated Diagnoses Date/Ti [...] Site ceFAZolin (ANCEF) 2g in dextrose 5% 50 mL 2 g, Intravenous, AUTOMATIC TIRE TESTER TO O.R., 1 dose, On Sat03/08/14 at 0745, Indication for (Active or Suspected): Prophylaxis Given 03/08/2014 3:45 PM EDT 2 g dexamethasone (DECADRON) injection PRN, Starting on Sat03/08/14 at 1544, Until Sat03/08/14 at 1905, Anesthesia Intra-op, Routine Given 03/08/2014 3:44 PM EDT 4 mg ePHEDrine Sulfate in sodium chloride 0.9% (PF) 50 mg/10 mL (5 mg/mL) injection Syrg PRN, Starting on Sat03/08/14 at 1552, Until Sat03/08/14 at 1905, Anesthesia Intra-op Given 03/08/2014 3:52 PM EDT 5 mg fentaNYL 50mcg/mL injection PRN, Starting on Sat03/08/14 at 1546, Until Sat03/08/14 at 1905, Pain, Anesthesia Intra-op, Routine Given 03/08/2014 6:58 PM EDT 50 mcg Given 03/08/2014 6:57 PM EDT 50 mcg Given 03/08/2014 6:55 PM EDT 25 mcg glycopyrrolate (ROBINUL) injection PRN, Starting on Sat03/08/14 at 1831, Until Sat03/08/14 at 1905, Anesthesia Intra-op, Routine Given 03/08/2014 6:31 PM EDT 0.6 mg lidocaine (PF) (XYLOCAINE) 100 mg/5 mL (2 %) injection PRN, Starting on Sat03/08/14 at 1517, Until Sat03/08/14 at 1905, Anesthesia Intra-op, Routine Given 03/08/2014 3:17 PM EDT 100 mg neostigmine (PROSTIGMINE) injection PRN, Starting on Sat03/08/14 at 1831, Until Sat03/08/14 at 1905, Anesthesia Intra-op, Routine Given 03/08/2014 6:31 PM EDT 3 mg ondansetron (ZOFRAN) injection PRN, Starting on Sat03/08/14 at 1847, Until Sat03/10/14 at 0822, Nausea, Anesthesia Intra-op, Routine Given 03/08/2014 6:47 PM EDT 4 mg PHENYLephrine HCl in NS (PF) (JAMAL-SYNEPHRINE) 0.8 mg/10 mL (80 mcg/mL) injection Syrg PRN, Starting on Sat03/08/14 at 1537, Until Sat03/08/14 at 1905, Anesthesia Intra-op, Routine Given 03/08/2014 6:25 PM EDT 80 mcg Given 03/08/2014 6:06 PM EDT 80 mcg Given 03/08/2014 6:02 PM EDT 80 mcg propofol (DIPRIVAN) 10 mg/mL bolus injection (Anesthesia) PRN, Starting on Sat03/08/14 at 1517, Until Sat03/08/14 at 1905, Anesthesia Intra-op Given 03/08/2014 6:40 PM EDT 30 mg Given 03/08/2014 5:01 PM EDT 50 mg Given 03/08/2014 3:18 PM EDT 100 mg rocuronium (ZEMURON) injection PRN, Starting on Sat03/08/14 at 1517, Until Sat03/08/14 at 1905, Anesthesia Intra-op, Routine Given 03/08/2014 6:01 PM EDT 5 mg Given 03/08/2014 4:56 PM EDT 20 mg Given 03/08/2014 3:17 PM EDT 80 mg documented in this encounter Care Teams Dental Aide Relationship Specialty Start Date End Date Kennedi Shaver MD [address] [place] [address] PCP - General 08/22/10 08/01/20 documented as of this encounter
--- OUTSIDE RECORDS SUMMARY | 2024-09-11 15:30 | XMS_ITS | Encounter Summary ---
Author Organization [facility] [place] [address] Care Team Providers Care E M Assembler Name Role Phone Kennedi Shaver MD Primary Care Provider [phone] Reason for Visit * Reason Comments Follow-up s/p alli Encounter Details Date Type Department Care Team (Latest Contact Info) Description 04/06/2014 3:20 PM EDT Office [place] [address] Surendra Garcia MD [facility] [place] [place] [address] Postoperative state (Primary Dx) Discharge Disposition: Home Social History [...] - Inhaled Oxygen Concentration - - Weight 85.7 kg (189 lb) 04/06/2014 3:21 PM EDT Height - - Body Mass Index 25.63 03/08/2014 9:03 PM EDT documented in this encounter Progress Notes * Surendra Garcia MD - 04/06/2014 3:42 PM EDT Chidi Carbone is a 68-year-old gentleman who returns in followup status post laparoscopic Alli fundoplication and hiatal hernia repair done on 03/08/2014. He did well postoperatively and was discharged the next day. As I see him back today, he actually looks great. He has not acid reflux. He is off all antacid medication. He is able to eat a broad variety of foods. When asked about what he has been eating lately he had a type of stew recently with different types of meats, as well as seafood, and tolerated that fine. He does acknowledge early satiety; he has lost roughly 10 pounds since surgery, but acknowledges it is because of the postprandial early satiety. On exam all trocar sites are healing well without any evidence of erythema or herniation. His abdomen is soft, flat, and nontender. At this point he seems very satisfied with both his decision to undergo the operation, as well as the results thus far. He had initially been sent to be Dr. Rocha for fundoplication prior to Sol's ablation. At this point I would have no concerns about him getting Sol's ablation at any point that was convenient for him. I would be happy to see him back on a p.r.n. basis. documented in this encounter Plan of Treatment Upcoming Encounters Date Type Department Care Team (Latest Contact Info) Description 09/29/2024 4:30 PM EST Hospital Encounter [place] [address] Lizet Wilkes MD [facility] [place] [address] 09/29/2024 4:30 PM EST - 09/29/2024 5:00 PM EST Surgery Gastroenterology at [place] [address] Lizet Wilkes MD [facility] [place] [address] EGD, UPPER GI ENDOSCOPY (WRVU 2.09) 11/09/2024 10:00 AM EST Laboratory Appointment Lab at [facility] Hematology Oncology [address] [place] [address] 11/09/2024 11:00 AM EST Office Visit Hematology and Oncology at [place] [address] Faith Caba MD [facility] DR HEMATOLOGY [place] [address] 11/09/2024 12:00 PM EST Appointment Hematology and Oncology at [place] [address] Scheduled Procedures Name Priority Associated Diagnoses Date/Ti me EGD, UPPER GI ENDOSCOPY (WRVU 2.09) Gastroesophageal reflux disease with esophagitis, unspecified whether hemorrhage 09/29/2024 4:30 PM EST documented as of this encounter Visit Diagnoses Diagnosis Postoperative state- Primary Other postprocedural status Gastroesophageal reflux disease with esophagitis, unspecified whether hemorrhage documented in this encounter Care Teams E M Assembler Relationship Specialty Start Date End Date eKnnedi Shaver MD [facility] [address] [place] [address] PCP - General 08/22/10 08/01/20 documented as of this encounter
--- OUTSIDE RECORDS SUMMARY | 2024-09-11 15:30 | XMS_ITS | Encounter Summary ---
Author Organization [facility] [place] [address] Care Team Providers Care Railroad Car Loader Name Role Phone Kennedi Shaver MD Primary Care Provider [phone] Encounter Details Date Type Department Care Team (Late st Contact Info) Description 03/08/2014 1:28 PM EDT - 03/08/2014 4:56 PM EDT Surgery [place] [address] Billie Rush MD [facility] [place] [address] LAPAROSCOPIC ANAI FUNDOPLASTY (WRVU 18.1) Social History Tobacco Use Types Packs/Day Years [...] this encounter Discharge Instructions * Patient Instructions* Myrna Keanu J - 03/08/2014 7:11 PM EDT Call your doctor if you develop: Fever greater than 101.3 degrees Farenheit (38.5 degrees Celcius), chills, nausea or vomiting. Alsocall if you develop severe pain not relieved by your prescribed oral pain medicine. CALL THE GENERAL SURGERY CLINIC DURING WORKING HOURS AT , OR CALL AFTERCLINIC HOURS, WEEKENDS AND HOLIDAYS: ASK FOR THE GENERAL SURGERY RESIDENT E BUSINESS CONSULTANT IF ANY OF THE ABOVE OCCUR. Activity level: Increase your activity slowly. You may tire easily, so frequent rest periods may be necessary. Do not lift more than 10 pounds for 4 weeks. Walk three times a day. Use common sense. Don't exhaust yourself. Diet: You should follow a post Anai diet, as instructed by the hide house supervisor in the hospital for a period of [...] at the General Surgery Outpatient Clinic - Film Recordist 4L. You will receive a letter in the mail confirming the appointment date and time. Your follow-up is very important to us. Please call [phone] if you do not hear from us [...] Sent with cath supplies. Prescriptions sent to [facility] pharmacy & IV removed. Pt declined wheelchair escort to private car. * Margaux Alcantar RN - 03/09/2014 3:05 PM EDT Record reviewed and patient discussed with multidisciplinary team. No discharge needs identified atthis time. CRC remains available as needed for coordination of care and discharge planning. Margaux Alcantar RN Pager# [phone] Clinical Outside Sales Inspector Office of Care Management * Nona Aguila [...] void since sebastian has come out. DC CERAMIC WORKER and switch to PO Pain meds. Likely DC today DC CERAMIC WORKER. Oxycodone PRN. Anai full liquids IVF @ [...] c/o 5/10 posterior neck pain despite Dilaudid CERAMIC WORKER. MD Gimenez advised and came to bedsideto [...] ENDOSCOPY performed by NINO ROCHA I at [facility] ENDOSCOPY ??? Upper gi endoscopy, biopsy 11/27/2011 UPPER GASTROINTESTINAL ENDOSCOPY,WITH BIOPSY SINGLE OR MULTIPLE performed by NINO ROCHA I at [facility] ENDOSCOPY ??? Upper gi endoscopy, tumor ablatn 04/22/2012 ENDOSCOPY, UPPER GI, W\ABLATION TUMOR\POLYP\LESION performed by NINO ROCHA I at [facility] ENDOSCOPY ??? Upper gi endoscopy, biopsy 04/22/2012 UPPER GASTROINTESTINAL ENDOSCOPY,WITH BIOPSY SINGLE OR MULTIPLE performed by NINO ROCHA I at [facility] ENDOSCOPY ??? Upper gi endoscopy, exam 05/12/2013 UPPER GI ENDOSCOPY performed by Nino Rocha MD at [facility] ENDOSCOPY ??? Upper gi endoscopy, biopsy 05/12/2013 UPPER GASTROINTESTINAL ENDOSCOPY,WITH BIOPSY SINGLE OR MULTIPLE performed by Nino Rocha MD at [facility] ENDOSCOPY ??? Upper gi endoscopy, biopsy 10/20/2013 UPPER GASTROINTESTINAL ENDOSCOPY,WITH BIOPSY SINGLE OR MULTIPLE performed by Nino Rocha MD at [facility] ENDOSCOPY ALL: No Known Allergies MED: No [...] our 45 minutes today with him in [id number] conversation regarding issues of the path of [...] * Maria Isabel Pandey MD - Resident-Surgeon Andrew: Procedure(s): LAPAROSCOPIC ANAI FUNDOPLASTY Pending Lab Data at Discharge: None. [...] part of your care. General Surgery - [phone]: PCP: KENNEDI SHAVER MD, . Please follow-up with your PCP in 1-2 weeks or sooner as needed. Scheduled Appointments: The following appointments have been scheduled on your behalf: Future Appointments and Orders Future Appointments: Provider: Department: Dept Phone: Center: 04/06/2014 3:20 PM Billie Rush MD General Surgery [phone] [facility] Outpatient Services/Studies: No discharge procedures on file. [...] HOLIDAYS: ASK FOR THE GENERAL SURGERY RESIDENT E BUSINESS CONSULTANT IF ANY OF THE ABOVE OCCUR. Activity level: Increase your activity slowly. You may tire easily, so frequent rest periods may be necessary. Do not lift more than 10 pounds for 4 weeks. Walk three times a day. Use common sense. Don't exhaust yourself. Diet: You should follow a post Anai diet, as instructed by the hide house supervisor in the hospital for a period of [...] at the General Surgery Outpatient Clinic - Film Recordist 4. You will receive a letter in the mail confirming the appointment date and time. Your follow-up is very important to us. Please call [phone] if you do not hear from us within 7 days of discharge or if you need to change the appointment date/time. General Instructions None Future Appointments and Orders Future Appointments: Provider: Department: Dept Phone: Center: 04/06/2014 3:20 PM Billie Rush MD General Surgery [phone] [facility] Call your doctor if: Please call [...] managed by the General Surgery Team at [facility]. If you have any questions or concerns, please feel free to contact us. Provider Contact Information: General Surgery Clinic: [facility] (after business hours): CC: KENNEDI SHAVER MD Signed: 03/09/2014 * Op Note - Billie Rush MD - 03/08/2014 6:42 PM EDT [facility] Operative Note Patient Name: Chidi Carbone : [id number] MR#: [id number] Case Date: 03/08/2014 Surgeon: Surgeon(s) and Role: [...] a 3-stitch, 2.5-cm fundoplication performed over a 60-Romansh bougie. There were no intraoperative complications. Details [...] stomach posterior to the esophagus and a 60-Romansh bougie was passed by Anesthesiology down the [...] was irrigated. Excellent hemostasis was assured. The Josie drain was cut and removed. The liver [...] Operative Note Patient Name: Chidi Carbone : [id number] MR#: [id number] Case Date: 03/08/2014 Surgeon: Surgeon(s) and Role: [...] [facility] [place] [address] Lizet Wilkes MD [facility] [place] [address] 09/29/2024 4:30 PM EST - 09/29/2024 5:00 PM EST Surgery G[place]enterology [place] [phone] Lizet Wilkes MD [facility] [place] [address] EGD, UPPER GI ENDOSCOPY (WRVU 2.09) 11/09/2024 10:00 AM EST Laboratory Appointment Lab at [facility] Hematology Oncology [address] [place] [phone] 11/09/2024 11:00 AM EST Office Visit Hematology and [place] [phone] Faith Caba MD [facility] [place] [address] 11/09/2024 12:00 PM EST Appointment Hematology [place] [phone] Scheduled Procedures Name Priority Associated Diagnoses Date/Ti [...] PRN, Starting on 03/08/14 at 2138, Until Sat03/09/14 at 1836, Fever, Maximum dose of acetaminophen is 4,000 mg from all sources in 24 hours., Routine Given 03/09/2014 2:11 PM EDT 1,000 mg Given 03/09/2014 6:52 AM EDT 1,000 mg BUpivacaine (PF) (MARCAINE) 0.25 % (2.5 mg/mL) injection ONCE PRN, Starting on Sat03/08/14 at 1615, Until Sat03/08/14 at 2031, Intra-Operative (Intra-Procedure), Routine Given 03/08/2014 3:55 PM EDT 20 mg 19- Surgical Site finasteride (PROSCAR) tablet 5 mg 5 mg, [...] EDT 0.4 mg HYDROmorphone (DILAUDID) 1 mg/mL CERAMIC WORKER 30 mL Intravenous, CERAMIC WORKER ONLY, Starting on Sat03/08/14 at 1945, Until Sat03/09/14 at 0638, Recovery (Recovery-Hospital Unit) Rate/Dose Verify 03/08/2014 8:56 PM E DT New Syringe/Cartridge 03/08/2014 7:37 PM EDT 30 mg lactated ringers infusion 1,000 mL 1,000 mL, at 100 mL/hr, Intravenous, CONTINUOUS, Starting on Sat03/08/14 at 1400, Until Sat03/08/14 at 2032, Day of Surgery (Day of Procedure) New [...] 5% 50 mL (COMPLETED) 2 g, Intravenous, E BUSINESS CONSULTANT TO O.R., 1 dose, On Sat03/08/14 at [...] RN) 0900 (Not Given - Provider: Sussy Ko RN - Reason: Order parameters not met) tamsulosin (FLOMAX) capsule 0.4 mg (CANCELED) 0.4 mg, Oral, DAILY, First dose on Sat03/09/14 at 1300, Until Discontinued, Routine 1414 (Given - Provid er: Sussy Ko RN) Continuous Medication Order 03/07/2014 03/08/2014 03/09/2014 HYDROmorphone (DILAUDID) 1 mg/mL CERAMIC WORKER 30 mL (CANCELED) Intravenous, CERAMIC WORKER ONLY, Starting on Sat03/08/14 at 1945, Until Sat03/09/14 at 0638, Recovery (Recovery-Hospital Unit) 1937 (New Syringe/Cartridge - Provider: Edwardo Alvarez RN)2055 (Rate/Dose Verify - Provider: Deborah Davidson RN) [...] (Anesthesia Volume Adjustment - Provider: Jose Call MD)1936 (New Bag - Provider: Edwardo Alvarez RN) lactated ringers infusion 1,000 mL (CANCELED) 1,000 mL, at 100 mL/hr, Intravenous, CONTINUOUS, Starting on Sat03/08/14 at 1945, Until Sat03/09/14 at 0638, Recovery (Recovery-Hospital Unit) 2056 (Rate/Dose Verify - Provider: Deborah Davidson RN [...] PACU Recovery 1928 (Given - Provider: Edwardo Alvarez, RN)1943 (Given - Provider: Edwardo Alvarez, RN) oxyCODONE (ROXICODONE) 5 mg/5 mL solution 5-10 mg 5-10 mg, Oral, EVERY 4 HOURS PRN, Starting on Sat03/09/14 at 0638, Until Sat03/09/14 at 1836, Pain, Routine 0654 (Given - Provid er: Deborah Davidson RN)1123 (Given - Provider: Sussy Ko RN)1412 (Given - Provider: Sussy Ko RN)1615 (Given - Provider: Sussy Ko RN) zolpidem (AMBIEN) tablet 5 mg (CANCELED) 5 mg, Oral, NIGHTLY PRN, Starting on Sat03/08/14 at 2033, Until Sat03/09/14 at 1836, Sleep, Routine 2146 (Given - Provider: Jnae Cleveland RN) Linked Groups Order Group 1: [...] Patch documented in this encounter Care Teams Railroad Car Loader Relationship Specialty Start Date End Date Kennedi Shaver MD [address] [place] [address] PCP - General 08/22/10 08/01/20 documented as of this encounter
--- OUTSIDE RECORDS SUMMARY | 2024-09-11 15:30 | XMS_ITS | Encounter Summary ---
[place] [address] Care Team Providers Care Retail Pharmacy Technician Name Role Phone Kennedi Shaver MD Primary Care Provider [phone] Encounter Details Date Type Department Care Team (Latest Contact Info) Description 12/09/2013 3:00 PM EDT Procedure visit [place] [address] CLINIC, Bri Gomez, RN Esophageal reflux (Primary Dx) Discharge Disposition: Home Social History [...] as of this encounter Progress Notes * Sina Tam MD - 12/20/2013 9:25 AM EDT ESOPHAGEAL MANOMETRY Chidi Carbone Male, 68 yrs, 1945 PCP: KENNEDI SHAVER SOFTWARE DEVELOPMENT ANALYST: NONE STUDY DATE: 12/09/13 PROVIDER: Sina Tam, [place] ([id number]) INDICATION ROMERO; preoperative evaluation. METHODS Stationary esophageal manometry was performed with the [employer] esophageal motility system utilizing the [employer] software with a 4-channel solid-state motility probe. The transducers are spaced 5 cm apart, and the distal transducer is circumferential, while the proximal three transducers are placed radially above it. Station pull-through technique is utilized to define the lower esophageal sphincter, whose resting tone is determined by the circumferential transducer. Wet swallows are performed in the body of the esophagus with the distal transducer placed 3 and 8 cm above the lower esophageal sphincter zone. The upper esophageal sphincter zone is discerned by station pull-through technique and measured using the circumferential transducer. LES (lower esophageal sphincter) Lower Border: 42 cm Upper Border: 39 cm Mid-Inspiratory Resting Pressure: 2 mmHg using the distal circumferential transducer (normal=13.5-34.5 mmHg). Water Swallows On 5 of 5 swallows the LES relaxed completely to gastric baseline. BODY OF ESOPHAGUS Water Swallows: 10 Peristaltic: 10 Not Transmitted: 0 Simultaneous: 0 Rapidly Propagated: 0 Mean Amplitude of Contraction At 3 cm above the mid portion of the LES: 49 mmHg (normal = 30 mmHg and above) At 8 cm above the mid portion the LES: 31 mmHg (normal = 30 mmHg and above) UES (upper esophageal sphincter) Identified at 22 cm and extended to 19 cm. UES resting pressure 22 mmHg (normal=30-150 mmHg); relaxation complete. IMPRESSION 1. Hypotensive LES. 2. Normal LES relaxation. 3. Reduced UES resting pressure. 4. Normal UES relaxation. 5. Normal motility in the body of the esophagus. Sina Tam, PhD, MD it network administrator, [facility] [employer] Section of Gastroenterology and Hepatology [facility] [place] [address] V: [phone] F: [phone] OSEAS/haja CC/EC: PCP - staff msg copy 12/14/13 Enclosure: Tracing Surendra Garcia MD - staff msg copy 12/14/13 Enclosure: Tracing Nino Rocha M.D. - staff msg copy 12/14/13 Enclosure: Maribell Jay - staff msg copy 12/14/13 * Bri Flynn, RN - 12/09/2013 3:38 PM EDT Esophageal manometry performed without difficulty and was well tolerated. documented in this encounter Plan of Treatment Upcoming Encounters Date Type Department Care Team (Latest Contact Info) Description 09/29/2024 4:30 PM EST Hospital Encounter [place] [phone] Lizet Wilkes MD [facility] [place] [address] 09/29/2024 4:30 PM EST - 09/29/2024 5:00 PM EST Surgery [place] [phone] Lizet Wilkes MD [facility] [place] [address] EGD, UPPER GI ENDOSCOPY (WRVU 2.09) 11/09/2024 10:00 AM EST Laboratory Appointment Lab at [facility] Hematology Oncology [address] [place] [phone] 11/09/2024 11:00 AM EST Office Visit Hematology [place] [phone] Faith Caba MD [facility] [place] [address] 11/09/2024 12:00 PM EST Appointment Hematology [place] [phone] Scheduled Procedures Name Priority Associated Diagnoses Date/Ti me EGD, UPPER GI ENDOSCOPY (WRVU 2.09) Gastroesophageal reflux disease with esophagitis, unspecified whether hemorrhage 09/29/2024 4:30 PM EST documented as of this encounter Visit Diagnoses Diagnosis Esophageal reflux- Primary Gastroesophageal reflux disease with esophagitis, unspecified whether hemorrhage documented in this encounter Care Teams Retail Pharmacy Technician Relationship Specialty Start Date End Date Kennedi Shaver MD [address] [place] [address] PCP - General 08/22/10 08/01/20 documented as of this encounter
--- OUTSIDE RECORDS SUMMARY | 2024-09-11 15:30 | XMS_ITS | Encounter Summary ---
[place] [address] Care Team Providers Care Bundle Helper Name Role Phone Kennedi Shaver MD Primary Care Provider [phone] Reason for Visit * Reason Onset Date Comments Dizziness 10/31/2015 Event Monitor Encounter Details Date Type Department Care Team (Late st Contact Info) Description 10/31/2015 Telephone Cardiology at [address] [phone] Wendy Del Angel RN Dizziness (Event Monitor) Social History Tobacco Use Types Packs/Day Years [...] encounter Miscellaneous Notes * Telephone Encounter - Wendy Del Angel RN - 10/31/2015 10:00 AM EST Outgoing call placed to patient after receipt of Event monitor referral. Spoke with patient his symptoms last 1-2 minutes however he is concerned he may miss something if he wears the self activated monitor. Scheduled patient for 11/04/2015 at 3PM. Wendy Del Angel RN 10/31/2015 10:10 AM documented in this encounter Plan of Treatment Upcoming Encounters Date Type Department Care Team (Latest Contact Info) Description 09/29/2024 4:30 PM EST Hospital Encounter Gastroenterology at [place] [phone] Lizet Wilkes MD [facility] [place] [address] 09/29/2024 4:30 PM EST - 09/29/2024 5:00 PM EST [place] [phone] Lizet Wilkes MD [facility] [place] [address] EGD, UPPER GI ENDOSCOPY (WRVU 2.09) 11/09/2024 10:00 AM EST Laboratory Appointment Lab at [facility] Hematology Oncology [address] [place], [place] [phone] 11/09/2024 11:00 AM EST Office Visit Hematology and Oncology at [place] [phone] Faith Caba MD [facility] DR HEMATOLOGY [place] [address] 11/09/2024 12:00 PM EST Appointment Hematology [place] [phone] Scheduled Procedures Name Priority Associated Diagnoses Date/Ti me EGD, UPPER GI ENDOSCOPY (WRVU 2.09) Gastroesophageal reflux disease with esophagitis, unspecified whether hemorrhage 09/29/2024 4:30 PM EST documented as of this encounter Visit Diagnoses Not on filedocumented in this encounter Care Teams Bundle Helper Relationship Specialty Start Date End Date Kennedi Shaver MD [address] [place] [address] PCP - General 08/22/10 08/01/20 documented as of this encounter
--- OUTSIDE RECORDS SUMMARY | 2024-09-11 15:31 | XMS_ITS | Encounter Summary ---
Author Organization [facility] [place] [address] Care Team Providers Care Candy Forming Machine Operator Name Role Phone Kennedi Shaver MD Primary Care Provider [phone] Encounter Details Date Type Department Care Team (Late st Contact Info) Description 02/13/2011 3:30 PM EDT - 02/13/2011 4:30 PM EDT [place] [address] Paula Rocha MD [facility] [place] [address] UPPER GI ENDOSCOPY Social History Tobacco Use [...] Sign Reading Time Taken Comments Blood Pressure 131/74 02/13/2011 5:21 PM EDT Pulse 58 02/13/2011 5:21 PM EDT Temperature 36.6 ??C (97.9 ??F) 02/13/2011 4:16 PM ED T Respiratory Rate 16 02/13/2011 5:21 PM EDT Oxygen Saturation 97% 02/13/2011 5:21 PM EDT Inhaled Oxygen Concentration - - Weight - - Height - - Body Mass Index - - documented in this encounter Discharge Instructions * Discharge Instructions* Sarahi Florez RN - 02/13/2011 6:12 PM EDT Saturday-Saturday Clinic [phone] 8a-5p Same Day Endo [phone] 7a-[phone] Otherwise contact [phone] and ask to speak to the masonry contractor economics faculty member * Patient Instructions* Paula Rocha MD - 02/13/2011 5:12 PM EDT Please see Recommendations in the Provation procedure report which is documented in the procedural note in E-DH. * Attachments The following attachments cannot be sent through Care Everywhere. * UPPER GI ENDOSCOPY: WHAT TO EXPECT AT HOME (SERBIAN) documented in this encounter Medications at Time of Discharge Medication Sig Dispensed Refills Start Date End Date hydroCODone-acetaminophe n (VICODIN) 5-500 mg Tab Take 1 tablet by mouth every 6 hours as needed (use if needed for pain) for 3 days. 20 tablet 0 02/13/2011 02/16/2011 ZOLPIDEM TARTRATE (AMBIEN ORAL) 12/05/2010 10/04/2020 pantoprazole (PROTONIX) 40 mg tablet 12/05/2010 04/19/2015 documented as of this encounter Progress Notes * Sarahi Florez RN - 02/13/2011 5:59 PM EDT MD in to explain findings and plan. documented in this encounter H&P Notes * Paula Rocha MD - 02/13/2011 4:36 PM EDT H&P done prior to procedure and documented in the endoscopy report located in the Procedures tab in eDH. documented in this encounter Procedure Notes * Provider, Scanning - 02/14/2011 7:34 AM EDTAssociated Order(s): SCAN DOC: ORDS - PROVIDER CARE * Provider, Scanning - 02/14/2011 7:22 AM EDTAssociated Order(s): SCAN DOC: ENDOSCOPY documented in this encounter Miscellaneous Notes * Miscellaneous - Provider, Scanning - 02/14/2011 7:29 AM EDT * Miscellaneous - Provider, Scanning - 02/13/2011 6:13 PM EDT * Op Note - Paula Rocha MD - 02/13/2011 5:12 PM EDT [facility] Operative Note Patient Name: Chidi Carbone : [id number] MR#: [id number] Case Date: 02/13/2011 Surgeon: Surgeon(s) and Role: * PAULA ROCHA MD - Primary Preoperative diagnosis: 2 MO FU Postoperative diagnosis: * No post-op diagnosis entered * Procedure(s): UPPER GI ENDOSCOPY Please see Procedure note. * OR Attestation - Paula Rocha MD - 02/13/2011 5:11 PM EDT Paula Rocha MD documented in this encounter Plan of Treatment Upcoming Encounters Date Type Department Care Team (Latest Contact Info) Description 09/29/2024 4:30 PM [facility] Hospital En[place] [address] Lizet Wilkes MD [facility] [place] [address] 09/29/2024 4:30 PM EST - 09/29/2024 5:00 PM EST Surgery Gastroenterology at [place] [phone] Lizet Wilkes MD [facility] [place] [address] EGD, UPPER GI ENDOSCOPY (WRVU 2.09) 11/09/2024 10:00 AM EST Laboratory Appointment Lab at [facility] Hematology Oncology [address] [place], [place] [phone] 11/09/2024 11:00 AM EST Office Visit Hematology and Oncology at [place] [phone] Faith Caba MD [facility] [place] [address] 11/09/2024 12:00 PM EST Appointment Hematology and Oncology at [place] [phone] Scheduled Procedures Name Priority Associated Diagnoses Date/Ti me EGD, UPPER GI ENDOSCOPY (WRVU 2.09) Gastroesophageal reflux disease with esophagitis, unspecified whether hemorrhage 09/29/2024 4:30 PM EST documented as of this encounter Procedures Procedure Name Priority Date/Time Associated Diagnosis Comments ORDS - PROVIDER CARE SCAN 02/14/2011 7:34 AM EDT ENDOSCOPY SCAN 02/14/2011 7:22 AM EDT UPPER GI ENDOSCOPY Routine 02/13/2011 4: 39 PM EDT UPPER GI ENDOSCOPY 02/13/2011 4: 38 PM EDT 2 MO FU documented in this encounter Results * SCAN DOC: ORDS - PROVIDER CARE (02/14/2011 7:34 AM EDT) Narrative 02/14/2011 7:34 AM EDT Procedure Note Provider, Scanning - 02/14/2011 7:34 AM EDT Scanning Provider MEDIA MGR SCAN EXT O RDR/RSLT * SCAN DOC: ENDOSCOPY (02/14/2011 7:22 AM EDT) Narrative 02/14/2011 7:22 AM EDT Procedure Note Provider, Scanning - 02/14/2011 7:22 AM EDT Scanning Provider MEDIA MGR SCAN EXT O RDR/RSLT * UPPER GI ENDOSCOPY (02/13/2011 4:39 PM EDT) [facility] UPPER GI ENDOSCOPY [facility] Endoscopy Patient Name: Chidi Carbone ? Procedure Date: 02/13/2011 04:39:14 PM ? Date of : 1945 ? Age: 65 ? Procedure: ? Upper GI endoscopy Indications: ? Follow-up of Sol's esophagus Providers: ? Paula Rocha MD, Dinora ? Mary, RN, Yarelis Wise, Public Health Advisor Referring MD: ?Kennedi Shaver MD Medicines: ? Midazolam 6 mg IV, Fentanyl 250 ? micrograms IV, Diphenhydramine 50 mg ? IV Complications: ? No immediate complications Procedure: ? Pre-Anesthesia Assessment: ? - Prior to the procedure, a History ? and Physical was performed, and ? patient medications, allergies and ? sensitivities have been reviewed. The ? patient's tolerance of previous ? anesthesia has been reviewed. ? - The risks and benefits [...] adequacy to receive ? sedatives. ? - The heart rate, respiratory rate, ? oxygen saturations, blood pressure, ? adequacy of pulmonary ventilation, ? and response to care were monitored ? throughout the procedure. ? - The heart rate, respiratory rate, [...] difficulty. The patient ? tolerated the procedure fairly well. ? Findings: ? There were esophageal mucosal changes secondary to ? established long-segment Sol's disease, extending ? from the upper extent of the gastric folds which were ? at 35 cm from the incisors to the Z-line which was at ? 31 cm from the incisors. No visible abnormalities ? were present. Focal Bipolar Thermal Ablation ? Sol's Esophagus: ? - With the endoscope in place, the position and ? extent of the Sol's mucosa and the anatomic ? landmarks including proximal and distal extent of ? Sol's, top of gastric folds and crural pinch were ? noted. The Sol's mucosa was irrigated with ? N-acetylcysteine (Mucomyst) 1% mixed with water. ? Gastric and esophageal contents were suctioned. The ? endoscope was then removed from the patient. The ? bipolar thermal ablation catheter was attached to the ? tip of the endoscope. The endoscope with the attached ? bipolar thermal ablation catheter was then passed ? transorally under direct vision into the esophagus ? and advanced to the areas of Sol's mucosa. The ? areas included islands and tongues of Sol's ? mucosa. The bipolar thermal ablation catheter was ? placed in contact with the surface of the Sol's ? mucosa under direct visualization and energy was ? applied twice at 40 w/cm2 and 12 J/cm2. Ablation was ? repeated in a likewise fashion to ablate all ? remaining visible Sol's mucosa. The ablation zone ? was cleaned of coagulative debris. The ablation ? catheter and endoscope were then removed and the ? catheter was cleaned and the catheter and endoscope ? were reinserted into the esophagus. A second complete ? series of ablation was repeated in a manner similar ? to that of the first series of maneuvers, and the ? ablation catheter and endoscope were then removed ? after the areas of the esophagus where Sol's ? mucosa had been thermally ablated were carefully ? examined. Areas of Sol's esophagus were ? completely treated. A large hiatus hernia was found. ? The proximal extent of the gastric folds (end of ? tubular esophagus) was 35 cm from the incisors. The ? hiatal narrowing was 40 cm from the incisors. He had ? one tiny island at 31, from 33 to 34 there were some ? medium islands and small scattered islands, and from ? 34 to 35 there was one broad peninsula. No ? circumferentail disease observed.Multiple 3 to 6 mm ? sessile polyps were found in the gastric body. The ? examined duodenum was normal. ? 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 Definitiely ? reduced amount of Sol's surface, ? with possible need for better control ? of reflux for complete ablation. ? - Hiatus hernia. ? - Multiple gastric polyps. ? - Normal examined duodenum. ? - Focal thermal ablation for ? Sol's esophagus performed. Recommendation: ?- Continue present medications. ? - Consider surgical anti-reflux ? therapy. This may be needed if ? Sol's not yet ablated completely ? at next endoscopy. ? - Repeat the upper endoscopy in 3 ? months for surveillance. Should have ? propofol for better tolerance. ? - Liquid diet for today and tomorrow, ? then soft diet for 3 days, then diet ? as tolerated. ? Use pain meds as needed, as directed. ? Call for questions or concerns to ? [phone]. ? Paula Rocha MD Signed Date: 02/13/2011 05:31:19 PM Number of Addenda: 0 ? Note initiated on 02/13/2011 04:39:14 PM PROVATION 02/13/2011 4:39 PM EDT Unknown GENERAL SURGICAL ORD ERABLES PROVATION documented in this encounter Visit Diagnoses Not on filedocumented in this encounter Administered Medications Inactive Administered Medications - up to 3 most recent administrations Medication Order MAR Action Action Date Dose Rate Site diphenhydrAMINE (BENADRYL) injection ONCE PRN, 1 dose, Starting on Sat02/13/11 at 1642, Until Sat02/13/11 at 1642, Itching, Intra-Operative (Intra-Procedure), Routine Given 02/13/2011 4:42 PM EDT 50 mg fentaNYL 50mcg/mL injection ONCE PRN, 1 dose, Starting on Sat02/13/11 at 1642, Until Sat02/13/11 at 1642, Pain, Intra-Operative (Intra-Procedure), Routine Given 02/13/2011 4:42 PM EDT 100 mcg fentaNYL 50mcg/mL injection Intravenous, ONCE PRN, 1 dose, Starting on Sat02/13/11 at 1646, Until Sat02/13/11 at 1646, Pain, Intra-Operative (Intra-Procedure), Routine Given 02/13/2011 4:46 PM EDT 50 mcg fentaNYL 50mcg/mL injection Intravenous, ONCE PRN, 1 dose, Starting on Sat02/13/11 at 1650, Until Sat02/13/11 at 1650, Pain, Intra-Operative (Intra-Procedure), Routine Given 02/13/2011 4:50 PM EDT 50 mcg fentaNYL 50mcg/mL injection Intravenous, ONCE PRN, 1 dose, Starting on Sat02/13/11 at 1657, Until Sat02/13/11 at 1657, Pain, Intra-Operative (Intra-Procedure), Routine Given 02/13/2011 4:57 PM EDT 50 mcg midazolam (VERSED) injection ONCE PRN, 1 dose, Starting on Sat02/13/11 at 1642, Until Sat02/13/11 at 1642, Sleep, Intra-Operative (Intra-Procedure), Routine Given 02/13/2011 4:42 PM EDT 2 mg midazolam (VERSED) injection Intravenous, ONCE PRN, 1 dose, Starting on Sat02/13/11 at 1646, Until Sat02/13/11 at 1646, Sleep, Intra-Operative (Intra-Procedure), Routine Given 02/13/2011 4:46 PM EDT 1 mg midazolam (VERSED) injection Intravenous, ONCE PRN, 1 dose, Starting on Sat02/13/11 at 1650, Until Sat02/13/11 at 1650, Sleep, Intra-Operative (Intra-Procedure), Routine Given 02/13/2011 4:50 PM EDT 1 mg midazolam (VERSED) injection Intravenous, ONCE PRN, 1 dose, Starting on Sat02/13/11 at 1657, Until Sat02/13/11 at 1657, Sleep, Intra-Operative (Intra-Procedure), Routine Given 02/13/2011 4:57 PM EDT 1 mg midazolam (VERSED) injection Intravenous, ONCE PRN, 1 dose, Starting on Sat02/13/11 at 1700, Until Sat02/13/11 at 1700, Sleep, Intra-Operative (Intra-Procedure), Routine Given 02/13/2011 5:00 PM EDT 1 mg documented in this encounter Active and Recently Administered Medications Times are shown in EDT. PRN Medication Order 02/11/2011 02/12/2011 02/13/2011 diphenhydrAMINE (BENADRYL) injection (COMPLETED) ONCE PRN, 1 dose, Starting on Sat02/13/11 at 1642, Until Sat02/13/11 at 1642, Itching, Intra-Operative (Intra-Procedure), Routine 1642 (Given - Provid er: Dinora Hernandez RN) fentaNYL 50mcg/mL injection (COMPLETED) ONCE PRN, 1 dose, Starting on Sat02/13/11 at 1642, Until Sat02/13/11 at 1642, Pain, Intra-Operative (Intra-Procedure), Routine 1642 (Given - Provid er: Dinora Hernandez, NUZHAT) fentaNYL 50mcg/mL injection (COMPLETED) Intravenous, ONCE PRN, 1 dose, Starting on Sat02/13/11 at 1646, Until Sat02/13/11 at 1646, Pain, Intra-Operative (Intra-Procedure), Routine 1646 (Given - Provid er: Dinora Hernandez RN) fentaNYL 50mcg/mL injection (COMPLETED) Intravenous, ONCE PRN, 1 dose, Starting on Sat02/13/11 at 1650, Until Sat02/13/11 at 1650, Pain, Intra-Operative (Intra-Procedure), Routine 1650 (Given - Provid er: Dinora Hernandez RN) fentaNYL 50mcg/mL injection (COMPLETED) Intravenous, ONCE PRN, 1 dose, Starting on Sat02/13/11 at 1657, Until Sat02/13/11 at 1657, Pain, Intra-Operative (Intra-Procedure), Routine 1656 (Given - Provid er: Dinora Hernandez RN) midazolam (VERSED) injection (COMPLETED) ONCE PRN, 1 dose, Starting on Sat02/13/11 at 1642, Until Sat02/13/11 at 1642, Sleep, Intra-Operative (Intra-Procedure), Routine 164 (Given - Provid er: Dinora Hernandez RN) midazolam (VERSED) injection (COMPLETED) Intravenous, ONCE PRN, 1 dose, Starting on Sat02/13/11 at 1646, Until Sat02/13/11 at 1646, Sleep, Intra-Operative (Intra-Procedure), Routine 164 (Given - Provid er: Dinora Hernandez RN) midazolam (VERSED) injection (COMPLETED) Intravenous, ONCE PRN, 1 dose, Starting on Sat02/13/11 at 1650, Until Sat02/13/11 at 1650, Sleep, Intra-Operative (Intra-Procedure), Routine 1649 (Given - Provid er: Dinora Hernandez RN) midazolam (VERSED) injection (COMPLETED) Intravenous, ONCE PRN, 1 dose, Starting on Sat02/13/11 at 1657, Until Sat02/13/11 at 1657, Sleep, Intra-Operative (Intra-Procedure), Routine 1656 (Given - Provid er: Dinora Hernandez RN) midazolam (VERSED) injection (COMPLETED) Intravenous, ONCE PRN, 1 dose, Starting on Sat02/13/11 at 1700, Until Sat02/13/11 at 1700, Sleep, Intra-Operative (Intra-Procedure), Routine 170 (Given - Provid er: Dinora Hernandez RN) documented in this encounter Care Teams Candy Forming Machine Operator Relationship Specialty Start Date End Date Kennedi Shaver MD [facility] [address] [place] [address] PCP - General 08/22/10 08/01/20 documented as of this encounter
--- OUTSIDE RECORDS SUMMARY | 2024-09-11 15:31 | XMS_ITS | Encounter Summary ---
Author Organization [facility] [place] [address] Care Team Providers Care Bdc Manager Name Role Phone Kennedi Shaver MD Primary Care Provider [phone] Reason for Visit * Reason Onset Date Comments Other 12/24/2011 Report EGD resul ts, schedule EGD Encounter Details Date Type Department Care Team (Late st Contact Info) Description 12/24/2011 Telephone Gastroenterology at [facility] [place] [address] Wendy Cruz RN Other (Report EGD results, schedule EGD) Social History Tobacco Use Types Packs/Day Years [...] Miscellaneous Notes * Telephone Encounter - Wendy Cruz RN - 12/24/2011 10:29 AM EDT Called patient to inform of: 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 Cont withmeds. Repeat in 2 months. Patient indicates understanding of the information. documented in this encounter Plan of Treatment Upcoming Encounters Date Type Department Care Team (Latest Contact Info) Description 09/29/2024 4:30 PM EST Hospital Encounter Gastroenterology at [place] [phone] Lizet Wilkes MD [facility] [place] [address] 09/29/2024 4:30 PM EST - 09/29/2024 5:00 PM EST Surgery Gastroenterology at [place] [phone] Lizet Wilkes MD [facility] [address] EGD, UPPER GI ENDOSCOPY (WRVU 2.09) 11/09/2024 10:00 AM EST Laboratory Appointment Lab at [facility] Hematology Oncology [address] [place], [place] [phone] 11/09/2024 11:00 AM EST Office Visit Hematology and Oncology at [place] [phone] Faith Caba MD [facility] [place] [address] 11/09/2024 12:00 PM EST Appointment Hematology and Oncology at [place] [phone] Scheduled Procedures Name Priority Associated Diagnoses Date/Ti me EGD, UPPER GI ENDOSCOPY (WRVU 2.09) Gastroesophageal reflux disease with esophagitis, unspecified whether hemorrhage 09/29/2024 4:30 PM EST documented as of this encounter Visit Diagnoses Not on filedocumented in this encounter Care Teams Bdc Manager Relationship Specialty Start Date End Date Kennedi Shaver MD [address] [place] [address] PCP - General 08/22/10 08/01/20 documented as of this encounter
--- OUTSIDE RECORDS SUMMARY | 2024-09-11 15:31 | XMS_ITS | Encounter Summary ---
Author Organization [facility] Address [address] [place] [address] Care Team Providers Care Subway Train Operator Name Role Phone Kennedi Shaver MD Primary Care Provider [phone] Encounter Details Date Type Department Care Team (Late st Contact Info) Description 12/19/2020 Lab Requisition [facility] Pathology & Laboratory Medicine - [facility] [address] [place] [address] Outr Resulting Lab, Provider Social History Tobacco Use Types Packs/Day Years Used Date Smoking Tobacco: Never Assessed Sex and Gender Information Value Date Recorded Sex Assigned at Not on file Legal Sex Male 18:24 EST Gender Identity Not on file Sexual Orientation Not on file documented as of this encounter Plan of Treatment Not on file documented as of this encounter Procedures Procedure Name Priority Date/Time Associated Diagnosis Comments ZZCOVID-19 TEST [facility] PCR Today 12/19/2020 11:00 EDT COVID-19 TESTING Routine 12/19/2020 11:0 0 EDT documented in this encounter Results * [facility] (12/19/2020 11:00 EDT) Swab ENTIRE NASOPHARYNX / Unknown 12/19/2020 11:00 EDT 12/19/2020 23:05 EDT us Provider Outr Resulting Lab MICROBIOLOGY - GENER AL ORDERABLES Final Result [facility] [address] [place] [address] * COVID-19 TESTING (12/19/2020 11:00 EDT) COVID-19 rt-PCR Result Negative Negative 12/20/2020 12:43 EDT [facility] Comment: This test has not been FDA cleared or approved. This test has been authorized by FDA under an EUA for use by authorized laboratories. This test has been authorized only for detection of nucleic acid from 2019-nCoV, not for any other viruses or pathogens. This test is only authorized for the duration of the declaration that circumstances exist justifying the authorization of emergency use of in vitro diagnostic tests for detection and/or diagnosis of 2019-nCoV under section 564(b)(1) of Act, 21 U.S.C ?? 360bbb-3(b) (1), unless the authorization is terminated or revoked sooner. Negative results do not preclude 2019-nCoV infection and should not be used as the sole basis for treatment or other patient management decisions. Negative results must be combined with clinical observations, patient history, and epidemiological information. Performed on the Offermatic instrument Performing Lab [place] [facility] 12/20/2020 12:43 EDT [facility] Swab 12/19/2020 11:0 0 EDT 12/19/2020 23:05 EDT us Provider Outr Resulting Lab MICROBIOLOGY - GENER AL ORDERABLES Final Result [facility] [address] [place] [address] documented in this encounter Visit Diagnoses Not on filedocumented in this encounter Care Teams Subway Train Operator Relationship Specialty Start Date End Date Kennedi Shaver MD [address] [place] [phone] PCP - General 08/22/15 documented as of this encounter
--- OUTSIDE RECORDS SUMMARY | 2024-09-11 15:31 | XMS_ITS | Encounter Summary ---
Author Organization [facility] Address [address] [place] [address] Care Team Providers Care Office Correspondent Name Role Phone Kennedi Shaver MD Primary Care Provider [phone] Encounter Details Date Type Department Care Team (Late st Contact Info) Description 02/20/2017 Results Only [facility] [phone] Brice Trejo MD [address] [place] [phone] Social History Tobacco Use Types Packs/Day Years [...] Procedure Name Priority Date/Time Associated Diagnosis Comments CYTOPATHOLOGY Routine 02/20/2017 0:00 EDT documented in this encounter Results * CYTOPATHOLOGY (02/20/2017 0:00 EDT) Pathology Report: CYTOPATHOLOGY REPORT Reports generated via electronic interface contain original data; however they are lacking the format of the original report. Caution should be taken when reading/interpreting unformatted reports. Name: ? CHIDI CARBONE ? Accession #: ? [id number] : ? 1945 (Age: 71) ??M ?Collect Date: ? 02/20/2017 Location: ? [facility] ? Receive Date: ? 02/21/2017 Provider: ? BRICE TREJO MD Copy to: ?KENNEDI SHAVER MD ? CYTOLOGIC DIAGNOSIS: LEFT NECK, ZONE V LYMPH NODE, FINE NEEDLE ASPIRATION: - ?Positive for malignancy. - ? Most consistent with metastatic prostatic adenocarcinoma. - ? See comment. ? COMMENT: ? The specimen consists of scattered clusters of innocuous appearing cells with finely granular scant to moderate cytoplasm, small round nuclei and prominent nucleoli, some forming vague acinar structures. Immunohistochemical stain for NKX 3.1 on a ThinPrep shows nuclear positivity in most of the cells. Immunohistochemical stain for TTF-1 is negative. ??Results are most consistent with prostatic origin. ??There is no appreciable amount of lymphoid tissue present. It could be explained either by the complete replacement of the lymph node by the tumor or by the tissue sample coming from the area other then the lymph node. ??As per confersation with Dr. Brice Trejo, the sample was definitely taken form the lymph node, in which case there is most likely a complete replacement of the lymph node by the tumor. Clinical Services Assistant slides of this case were reviewed at the intradepartmental consultation conference. Dr. Casas 02/22/2017 4:22 PM Document reviewed and electronically signed by: ? LELAND CASAS MD Report Date: ??02/22/2017 17:15 By the signature above, the attending physician certifies that he/she has personally conducted a gross and/or microscopic examination of the described specimens and rendered or confirmed the above diagnosis. Specimen Type: ? Head/Neck, Fine Needle Aspiration, Left Neck Zone V Clinical History: ? Left neck Zone V LAD; posterior triangle LAD; subclavicular LAD; elevated PSA but no pathologic diagnosis of prostate cancer. ? Gross Description: ? One vial of Cytolyt was received and processed by selective cellular enhancement technique. ? End of Report [facility] 02/20/2017 02/21/2017 8:5 4 EDT us Bricenaga Trejo MD PATHOLOGY ORDERABLES Final Resul t Performing Organization Address City/State/[facility] Co de Phone Number [facility] [address] [place] [address] documented in this encounter Visit Diagnoses Not on filedocumented in this encounter Care Teams Office Correspondent Relationship Specialty Start Date End Date Kennedi Shaver MD [address] [place] [phone] PCP - General 08/22/15 documented as of this encounter
--- OUTSIDE RECORDS SUMMARY | 2024-09-11 15:31 | XMS_ITS | Clinical Summary ---
Author Organization [facility] Address [address] [place] [address] Care Team Providers Care Physiotherapy Aide Name Role Phone Kennedi Shaver MD Primary Care Provider [phone] Social History Tobacco Use Types Packs/Day Years Used Date Smoking Tobacco: Never Assessed Sex and Gender Information Value Date Recorded Sex Assigned at Not on file Legal Sex Male 18:24 EST Gender Identity Not on file Sexual Orientation Not on file Plan of Treatment Health Maintenance Due Date Last Done Comments Fall Risk Screening 2009 RSV Immunization ( o r 60+ Years) (1 - 1-dose 75+ series) 2019 COVID-19 Vaccine ( season) 2024 Hepatitis C Screen Completed 11/30/2020 Procedures Procedure Name Priority Date/Time Associated Diagnosis Comments HEPATITIS C AB W REFLEX TO HCV RNA BY PCR Routine 11/30/2020 11:20 EST from Last 3 Months or Most Recently Relevant to Health Maintenance Results * HEPATITIS C AB W REFLEX TO HCV RNA BY PCR (11/30/2020 11:20 EST) Hep C Antibody Negative Negative 12/01/2020 9:43 EST [facility] Blood VENOUS BLOOD / Unknown 11/30/2020 11:20 EST 11/30/2020 21:34 EST us Provider Outr Resulting Lab CHEMISTRY & BLOOD GA S ORDERABLES Final Result [facility] [address] [place] [address] from Last 3 Months or Most Recently Relevant to Health Maintenance Care Teams Physiotherapy Aide Relationship Specialty Start Date End Date Kennedi Shaver MD [address] [place] [phone] PCP - General 08/22/15
--- OUTSIDE RECORDS SUMMARY | 2024-09-11 15:31 | XMS_ITS | Encounter Summary ---
Author Organization [facility] [place] [address] Care Team Providers Care Supervisor Underwriting Clerks Name Role Phone Kennedi Shaver MD Primary Care Provider [phone] Encounter Details Date Type Department Care Team (Late st Contact Info) Description 11/08/2005 Orders [place] [address] Sina Marina MD [facility] [address] [place] [address] Social History Tobacco Use Types Packs/Day Years Used Date Smoking Tobacco: Never Assessed [facility] Inpatient Questions Answer Date Recorded Does Anyone [...] 4:30 PM EST Hospital En[place] [phone] Lizet Wilkes MD [facility] [place] [address] 09/29/2024 4:30 PM EST - 09/29/2024 5:00 PM EST [place] [phone] Lizet Wilkes MD [facility] [place] [address] EGD, UPPER GI ENDOSCOPY (WRVU 2.09) 11/09/2024 10:00 AM EST Laboratory Appointment Lab at [facility] [place] Hematology Oncology [address] [place] [phone] 11/09/2024 11:00 AM EST Office Visit Hematology [place] [phone] Faith Caba MD [facility] DR HEMAT[place] [address] 11/09/2024 12:00 PM EST Appointment Hematology and Oncology at [place] [phone] Scheduled Procedures Name Priority Associated Diagnoses Date/Ti [...] Associated Diagnosis Comments SURGICAL PATHOLOGY REPORT Routine 11/08/2005 2:33 PM EST documented in this encounter Results * Surgical Pathology Report (11/08/2005 2:33 PM EST) Surgical Pathology Report [id number] ? Location: The signing pathologist has (i) examined the relevant preparation(s) for the specimen(s) and (ii) rendered or confirmed the diagnosis(es). . ?Pathology Surgical Pathology Final Report Clinical Information Specimen Submitted: A - 1. ??36 cm, Esophagus. B - 2. ??34 cm, Esophagus. C - 3. ??32 cm, Esophagus. D - 4. ??30 cm, Esophagus. E - 5. ??28 cm, Esophagus. Clinical History: GERD with Sol's H/O low grade Dysplasia. Clinical Diagnosis: Annual Dysphagia F/U. Gross Description A - Labeled/Fixativ e: Esophagus 36 cm, formalin. Qty/Size/Weight : ?Three, ranging from 0.2 cm to 0.5 cm in greatest ?dimension. Tissue Description: ?? Soft, vital tissues. Sections/Proces sing: ??(T1) B - Labeled/Fixativ e: Esophagus 34 cm, formalin. Qty/Size/Weight : ?Two, averaging 0.3 x 0.2 x 0.2 cm. Tissue Description: ?? Soft, vital tissues. Sections/Proces sing: ??(T1) C - Labeled/Fixativ e: Esophagus 32 cm, formalin. Qty/Size/Weight : ?Four, ranging from 0.1 cm to 0.2 cm in greatest ?dimension. Tissue Description: ?? Soft, vital tissues. Sections/Proces sing: ??(T1) D - Labeled/Fixativ e: Esophagus 30 cm, formalin. Qty/Size/Weight : ?Three, averaging 0.2 x 0.2 x 0.2 cm. Tissue Description: ?? Soft, vital tissues. Sections/Proces sing: ??(T1) E - Labeled/Fixativ e: Esophagus 28 cm, formalin. Qty/Size/Weight : ?Three, averaging 0.3 x 0.2 x 0.2 cm. Tissue Description: ?? Soft, vital tissues. Sections/Proces sing: ??(T1) ??aje/SNS Microscopic Description Slides reviewed, microscopic description not recorded. Diagnosis A - Esophagus, 36 cm; endoscopic biopsies: ?Focal goblet cell metaplasia, negative for dysplasia. B - Esophagus, 34 cm; endoscopic biopsies: ?Focal goblet cell metaplasia, negative for dysplasia. C - Esophagus, 32 cm; endoscopic biopsies: . Diagnosis ?Focal low-grade dysplasia in one of four biopsies. D - Esophagus, 30 cm; endoscopic biopsies: ?Focal low-grade dysplasia in one three biopsies. E - Esophagus, 28 cm; endoscopic biopsies: ?Negative for goblet cell metaplasia or dysplasia. CR-0 11/09/05 [facility] 11/12/05 Verified by: ? Sandy Taveras MD ?Pathologist ?(Electronic Signature) The attending pathologist whose signature appears on this report has reviewed all diagnostic slides and has edited the gross and/or microscopic portion of the report in rendering the final pathologic diagnosis. Comment Dr. Mely Ayala has reviewed the pertinent slides and concurs with this interpretation, TJ MCBRIDE 11/08/2005 2:33 PM EST Sina Marina MD PATHOLOGY/CYTOLOGY O RDERABLES TJ MCBRIDE documented in this encounter Visit Diagnoses Not on filedocumented in this encounter Care Teams Supervisor Underwriting Clerks Relationship Specialty Start Date End Date Kennedi Shaver MD [address] [place] [address] PCP - General Family Medicine 08/02/20 06/24/24 documented as of this encounter
--- OUTSIDE RECORDS SUMMARY | 2024-09-11 15:31 | XMS_ITS | Encounter Summary ---
Author Organization [facility] Address [address] [place] [address] Care Team Providers Care Residence Life Director Name Role Phone Unavailable Primary Care Provider Unavailabl e Encounter Details Date Type Department Care Team (Late st Contact Info) Description 05/27/2008 Before PRISM Converted Visit ([facility]) [facility] conversion [address] [place] [address] Vicky Rutledge MD [address] [place] [address] Social History Tobacco Use Types Packs/Day Years [...] Priority Date/Time Associated Diagnosis Comments SURGICAL PATHOLOGY Routine 05/27/2008 0:00 EDT documented in this encounter Results * SURGICAL PATHOLOGY (05/27/2008 0:00 EDT) Pathology Report: SURGICAL PATHOLOGY REPORT ? Reports generated via electronic interface contain original data; ? however they are lacking the format of the original report. ? Caution should be taken when reading/interpreting unformatted reports. ? Name: ? HOLADAY, NICHOLS ? Accession #: ? [id number] ? : ? 1945 (Age: 62) ??M ? Collect Date: ? 05/27/2008 ? Location: ? [facility] ? Receive Date: ? 05/28/2008 ? Provider: VICKY RUTLEDGE MD ? Copy to: PANCHITO MARTIN MD ? Final Pathologic Diagnosis: ? Skin of buttock, left, excisional biopsy: ? 1. ?Melanocytic nevus, intradermal type. ? 2. ? Folliculitis with rupture and perifolliculitis. ? Microscopic Description: ? Sections consist of a shave biopsy of a papule. ??There is irregular ? epidermal hyperplasia centered upon a follicle. ??The follicle is distorted and ?? disrupted. ??The follicle is infiltrated by inflammatory cells and surrounded by a dense lymphomononuclear infiltrate. ??The infiltrate includes numerous ? multinucleate foreign body giant cells, some of which surround portions of hair shaft. ??At the periphery of the biopsy, there is a dermal melanocytic ? proliferation. ??The melanocytes form nests, cords, and strands. ??The melanocytes are small and show features of maturation with descent. ?? (Dr. Hart)/[facility] ? Document reviewed and electronically signed by: ? Yenifer Hart MD ? Report ??Date: 06/01/2008 16:44 ? By the signature above, the attending physician certifies that he/she has ? personally conducted a gross and/or microscopic examination of the described ? specimens and rendered or confirmed the above diagnosis. ? Specimen(s) Received: ? Excision skin lesion L buttock ? Clinical History: ? Not listed ? Gross Description: ? Received in formalin labelled Holaday and skin lesion left buttock is a 0.7 x 0.6 x 0.3 cm shave biopsy of a vital nodule. ??The specimen is trisected and entirely submitted in one cassette. ??(Dr. Clemente)/k[facility] ? End of Report ? [facility] 05/27/2008 05/28/2008 8:2 8 EDT us Vicky Rutledge MD PATHOLOGY ORDERABLES Final Resul t [facility] [address] [place] [address] documented in this encounter Visit Diagnoses Not on filedocumented in this encounter
--- OUTSIDE RECORDS SUMMARY | 2024-09-11 15:31 | XMS_ITS | Encounter Summary ---
Author Organization [facility] [place] [address] Care Team Providers Care Italian Teacher Name Role Phone Kennedi Shaver MD Primary Care Provider [phone] Encounter Details Date Type Department Care Team (Late st Contact Info) Description 11/27/2011 1:28 PM EST Anesthesia [place] [address] Santo Ramirez MD [facility] DR ANEST[place]Y [place] [address] Anesthesia Record Procedure Summary Procedure Name Responsible Anesthesiologist Anesthesia Start Time Anesthesia Stop Time UPPER GASTROINTESTINAL ENDOSCOPY,WITH BIOPSY SINGLE OR MULTIPLE (WRVU 2.39) Santo Ramirez MD 11/27/11 1328 11/27/11 1407 Events Date Time Event Comment 11/27/2011 1311 1328 Start 1407 Stop Meds * Agents No agents on file. * Blood No blood administrations on file. Lines, Drains, and Airways Type Details Placement Removal (RETIRED) Peripheral IV Line - Single Lumen 11/27/11; 1258; 11/27/11; 1538 02/28/12 1258 by Yenifer Eisenberg RN 11/27/11 1538 by Bella Crews RN documented in this encounter Social History [...] OR Notes * Anesthesia Postprocedure Evaluation - Santo Ramirez MD - 11/27/2011 2:49 PM EST Patient: Chidi Carbone Procedure(s) Performed: UPPER GASTROINTESTINAL ENDOSCOPY,WITH BIOPSY SINGLE OR MULTIPLE Patient location: SDP Post-op pain: Adequate analgesia Post-op nausea: no nausea or vomiting Last Vitals: Filed Vitals: 11/27/11 1408 BP: 107/57 Pulse: 69 Temp: Resp: 16 Post-op cardiovascular and respiratory status: is stable Level of consciousness: awake and alert Complications: no apparent complications Fluid Status: normal * Anesthesia Preprocedure Evaluation - Santo Ramirez MD - 11/27/2011 1:10 PM EST Anesthesia Evaluation Patient summary reviewed No hx of anesthetic complications Airway Mallampati: III TM distance: >3 FB Neck ROM: full Dental - normal exam Pulmonary - normal exam Cardiovascular Exercise tolerance: good Neuro/Psych GI/Hepatic/Renal (+) GERD well controlled, Endo/Other Abdominal Anesthesia Plan ASA 2 MAC with intravenous induction Anesthetic plan and risks discussed with patient. Plan discussed with ANIMAL KEEPER HEAD. documented in this encounter Miscellaneous Notes * Addendum Note - Nury Sánchez - 11/28/2011 9:09 AM EST Addendum created 11/28/11908 by Nury Sánchez Modules edited:Anesthesia Events, Anesthesia Responsible Staff documented in this encounter Plan of Treatment Upcoming Encounters Date Type Department Care Team (Latest Contact Info) Description 09/29/2024 4:30 PM EST Hospital Encounter Gastroenterology at [place] [phone] Lizet Wilkes MD [facility] [place] [address] 09/29/2024 4:30 PM EST - 09/29/2024 5:00 PM EST Surgery Gastroenterology at [place] [phone] Lizet Wilkes MD [facility] [address] EGD, UPPER GI ENDOSCOPY (WRVU 2.09) 11/09/2024 10:00 AM EST Laboratory Appointment Lab at [facility] [place] Hematology Oncology [address] [place] [phone] 11/09/2024 11:00 AM EST Office Visit Hematology and Oncology at [place] [phone] Faith Caba MD [facility] [place] [address] 11/09/2024 12:00 PM EST Appointment Hematology and Oncology at [place] [phone] Scheduled Procedures Name Priority Associated Diagnoses Date/Ti ny EGD, UPPER GI ENDOSCOPY (WRVU 2.09) Gastroesophageal reflux disease with esophagitis, unspecified whether hemorrhage 09/29/2024 4:30 PM EST documented as of this encounter Visit Diagnoses Not on filedocumented in this encounter Care Teams Italian Teacher Relationship Specialty Start Date End Date Kennedi Shaver MD [facility] [address] [place] [address] PCP - General 08/22/10 08/01/20 documented as of this encounter
--- OUTSIDE RECORDS SUMMARY | 2024-09-11 15:31 | XMS_ITS | Referral Summary ---
Author Organization [facility] Address [address] [place] [address] Care Team Providers Care Order Packer Name Role Phone Kennedi Shaver MD Primary Care Provider [phone] Social History Tobacco Use Types Packs/Day Years Used Date Smoking Tobacco: Never Assessed Sex and Gender Information Value Date Recorded Sex Assigned at Not on file Legal Sex Male 18:24 EST Gender Identity Not on file Sexual Orientation Not on file Plan of Treatment Not on file Procedures Procedure Name Priority Date/Time Associated Diagnosis Comments HEPATITIS C AB W REFLEX TO HCV RNA BY PCR Routine 11/30/2020 11:20 EST from Last 3 Months or Most Recently Relevant to Health Maintenance Results * HEPATITIS C AB W REFLEX TO HCV RNA BY PCR (11/30/2020 11:20 EST) Hep C Antibody Negative Negative 12/01/2020 9:43 EST [facility] Blood VENOUS BLOOD / Unknown 11/30/2020 11:20 EST 11/30/2020 21:34 EST us Provider Outr Resulting Lab CHEMISTRY & BLOOD GA S ORDERABLES Final Result [facility] [address] [place] [address] from Last 3 Months or Most Recently Relevant to Health Maintenance Care Teams Order Packer Relationship Specialty Start Date End Date Kennedi Shaver MD [address] [phone] PCP - General 08/22/15
--- OUTSIDE RECORDS SUMMARY | 2024-09-11 15:31 | XMS_ITS | Encounter Summary ---
Author Organization [facility] Address [address] [place] [address] Care Team Providers Care Metal Reed Tuner Name Role Phone Unavailable Primary Care Provider Unavailabl e Encounter Details Date Type Department Care Team (Late st Contact Info) Description 02/19/2000 14:51 EDT Hospital Encounter [facility] - Other [address] [place] [address] Renzo Rosa MD Unknown, Provider, Social History Tobacco Use Types Packs/Day Years [...] Date/Time Associated Diagnosis Comments SURGICAL PATHOLOGY Routine 02/19/2000 0:00 EDT documented in this encounter Results * SURGICAL PATHOLOGY (02/19/2000 0:00 EDT) Pathology Report: SURGICAL PATHOLOGY REPORT Reports generated via electronic interface contain original data; however they are lacking the format of the original report. Caution should be taken when reading/interpreti ng unformatted reports. Name: ? CHIDI CARBONE ? Accession #: ? [id number] ? : ? 1945 (Age: 54) ??M ? Collect Date: ? 02/19/2000 ? Location: ? [facility] ? Receive Date: ? 02/19/2000 ? Provider: RENZO ROSA MD Copy to: ? Final Pathologic Diagnosis: ? Skin of orthodox, right, shave biopsy: - ??Seborrheic keratosis, inflamed. ??See microscopic and comment. Comment: ? We agree entirely with your interpretation that this lesion represents an inflamed seborrheic keratosis. ??(Dr. Hart)/[facility] Microscopic Description: ? Sections consist of a shave biopsy of skin that transects the base of the epidermis. ??The stratum corneum is thickened by compact orthokeratin with small foci of parakeratosis. ??The epidermis is irregularly hyperplastic and consists of interlacing trabeculae. ??Horn pseudocysts are formed by the undulating surface. ??The keratinocytes of the epidermis show reactive nuclear changes along the basal zone in association with a moderately dense inflammatory infiltrate. There is focal vacuolar change and individual necrotic cells. ??Other areas consist of cells with abundant eosinophilic cytoplasm. ??There is no prominent nuclear atypia. ??(Dr. Hart)/[facility] Document reviewed and electronically signed by: Yenifer Hart MD Report ??Date: 02/20/2000 16:31 By the signature above, the attending physician certifies that he/she has personally conducted a gross and/or microscopic examination of the described specimens and rendered or confirmed the above diagnosis. Specimen(s) Received: ? [facility] [id number] (1) Clinical History: ? Skin lesion Gross Description: ? One slide is received for review from [facility] and is labelled [id number]. ?? End of Report [facility] 02/19/2000 02/19/2000 14: 54 EDT us Renzo Rosa MD PATHOLOGY ORDERABLES Final Resul t [facility] [address] [place] [address] documented in this encounter Visit Diagnoses Not on filedocumented in this encounter
--- OUTSIDE RECORDS SUMMARY | 2024-09-11 15:31 | XMS_ITS | Encounter Summary ---
Author Organization [facility] [place] [address] Care Team Providers Care Baling Press Operator Name Role Phone Kennedi Shaver MD Primary Care Provider [phone] Reason for Visit * Reason Comments Toe Injury Encounter Details Date Type Department Care Team (Late st Contact Info) Description 04/21/2012 3:30 PM EDT - 04/21/2012 6:27 PM EDT [place] [address] Cassy Venegas MD [facility] [place] [address] Toenail avulsion Discharge Disposition: Home Social History Tobacco Use [...] Sign Reading Time Taken Comments Blood Pressure 128/70 04/21/2012 4:03 PM EDT Pulse 77 04/21/2012 6:27 PM EDT Temperature 37 ??C (98.6 ??F) 04/21/2012 6:27 PM EDT Respiratory Rate 16 04/21/2012 6:27 PM EDT Oxygen Saturation 97% 04/21/2012 6:27 PM EDT Inhaled Oxygen Concentration - - Weight - - Height - - Body Mass Index - - documented in this encounter Discharge Instructions * Discharge Instructions* Cassy Venegas MD - 04/21/2012 6:21 PM EDT Your toe is not broken. You may lose your toenail - but the worst of the pain was last night. Just be careful that you don't catch it and further pull it. Return for worsening pain or bleeding, Follow up with your primary care doctor. FOr pain start with ibuprofen 600 - 800mg every 6 - 8 hours. IF that doesn't work, you can take thevicodin every 3 - 4 hours. documented in this encounter Medications at Time of Discharge Medication Sig Dispensed Refills Start Date End Date DUTASTERIDE/TAMSULOSIN HCL (ARNOL ORAL) Take by mouth daily. ZOLPIDEM TARTRATE (AMBIEN ORAL) 12/05/2010 10/04/2020 pantoprazole (PROTONIX) 40 mg tablet 12/05/2010 04/19/2015 documented as of this encounter ED Notes * Cassy Venegas MD - 04/21/2012 12:00 AM EDT Chief Complaint Patient presents with ??? Toe Injury The history is provided by the patient. Mr. Carbone stubbed his toe last night and in doing so pulled his nail back. Throbbed all night andpainful to walk on. Feels better when not walking. Not sure if nail needs to be fixed No Known Allergies Review of Systems Constitutional: Negative for fever. Skin: Negative for color change. Physical Exam Nursing note and vitals reviewed. Constitutional: He appears well-developed and well-nourished. Musculoskeletal: R great toe. Tender at base of prox phal. Nail obviously pulled up, but still firmly adherent. Procedures MDM Number of Diagnoses or Management Options Toenail avulsion: new, needed workup (not fully avulsed) ED Course: Xray done and no fracture. Since the nail is still adherent I don't think we should remove it. Discussed the fact that his nail may come off but may not. Will give him pain meds to help with throbbing/sleep through the night tonight and tomorrow. Cassy Venegas MD 04/28/12 1043 documented in this encounter Miscellaneous Notes * Discharge Summary - Provider, Scanning - 04/23/2012 9:31 AM EDT * Miscellaneous - Provider, Scanning - 04/21/2012 4:42 PM EDT * ED Triage - Christina Tello RN - 04/21/2012 4:01 PM EDT Stubbed his toe yesterday. Bent the nail back. documented in this encounter Plan of Treatment Upcoming Encounters Date Type Department Care Team (Latest Contact Info) Description 09/29/2024 4:30 PM EST Hospital Encounter [place] [address] Lizet Wilkes MD [facility] [place] [address] 09/29/2024 4:30 PM EST - 09/29/2024 5:00 PM EST Surgery [place] [address] Lizet Wilkes MD [facility] [place] [address] EGD, UPPER GI ENDOSCOPY (WRVU 2.09) 11/09/2024 10:00 AM EST Laboratory Appointment Lab at [facility] Hematology Oncology [address] [place] [phone] 11/09/2024 11:00 AM EST Office Visit Hematology [place] [phone] Faith Caba MD [facility] [address] [place] [address] 11/09/2024 12:00 PM EST Appointment Hematology [place] [phone] Scheduled Procedures Name Priority Associated Diagnoses Date/Ti me EGD, UPPER GI ENDOSCOPY (WRVU 2.09) Gastroesophageal reflux disease with esophagitis, unspecified whether hemorrhage 09/29/2024 4:30 PM EST documented as of this encounter Procedures Procedure Name Priority Date/Time Associated Diagnosis Comments XR TOES MINIMUM 2 VIEW STAT 04/21/2012 5:52 PM EDT documented in this encounter Results * XR TOES MINIMUM 2 VIEW (04/21/2012 5:52 PM EDT) Anatomical Region Laterality Modality N/A Radiographic Omaira ging 04/21/2012 5:52 PM EDT Narrative 04/22/2012 8:24 AM EDT Examination TOES MIN 2 VIEW/LEFT Clinical History Reason for exam and clinical history: Hit left great toe now has pain. ??r/o f; Comparison None. Technique 3 views of the right great toe were obtained. Findings Alignment at the great toe is maintained. ??No acute fracture or dislocation. ?? Mild joint space narrowing is seen at the 1st MTP joint. ??No radiopaque foreign bodies are seen. Impression No acute fracture dislocation of the right great toe. Film and interpretation reviewed by the attending Procedure Note Tracie Harrison MD - 04/22/2012 Examination TOES MIN 2 VIEW/LEFT Clinical History Reason for exam and clinical history: Hit left great toe now has pain.r/o f; Comparison None. Technique 3 views of the right great toe were obtained. Findings Alignment at the great toe is maintained. No acute fracture ordislocation. Mild joint space narrowing is seen at the 1st MTP joint. No radiopaqueforeign bodies are seen. Impression No acute fracture dislocation of the right great toe. Film and interpretation reviewed by the attending Cassy Venegas MD IMG DX ORDERABLES documented in this encounter Visit Diagnoses Diagnosis Toenail avulsion Open wound of toe(s), without mention of complication Gastroesophageal reflux disease with esophagitis, unspecified whether hemorrhage documented in this encounter Administered Medications Inactive Administered Medications - up to 3 most recent administrations Medication Order MAR Action Action Date Dose Rate Site hydroCODone-acetaminophen (VICODIN) 5-500 mg 1-2 tablet 1-2 tablet, Oral, EVERY 6 HOURS PRN, Starting on Sat04/21/12 at 182, Until Sat04/21/12 at 2026, Pain, STAT Given 04/21/2012 6:25 PM EDT 6 tablets documented in this encounter Active and Recently Administered Medications Times are shown in EDT. PRN Medication Order 04/19/2012 04/20/2012 04/21/2012 hydroCODone-acetaminophen (VICODIN) 5-500 mg 1-2 tablet (CANCELED) 1-2 tablet, Oral, EVERY 6 HOURS PRN, Starting on Sat04/21/12 at 1821, Until Sat04/21/12 at 2026, Pain, STAT 1824 (Given - Provid er: Sarah Marin RN - Comment: dispensed to take at home as directed by ) documented in this encounter Care Teams Baling Press Operator Relationship Specialty Start Date End Date Kennedi Shaver MD [facility] [address] [place] [address] PCP - General 08/22/10 08/01/20 documented as of this encounter
--- OUTSIDE RECORDS SUMMARY | 2024-09-11 15:31 | XMS_ITS | Encounter Summary ---
Author Organization [facility] [place] [address] Care Team Providers Care Chemical Plant Worker Name Role Phone Kennedi Shaver MD Primary Care Provider [phone] Encounter Details Date Type Department Care Team (Late st Contact Info) Description 12/05/2010 3:00 PM EST Procedure visit G[place] [phone] Nino Rocha MD [facility] [place] [address] Social History Tobacco Use Types Packs/Day Years Used Date Smoking Tobacco: Never Assessed Sex and Gender Information Value Date Recorded Sex Assigned at Not on file Gender Identity Not on file Sexual Orientation Not on file documented as of this encounter Plan of Treatment Upcoming Encounters Date Type Department Care Team (Latest Contact Info) Description 09/29/2024 4:30 PM EST Hospital Encounter G[place] [phone] Lizet Wilkes MD [facility] [place] [address] 09/29/2024 4:30 PM EST - 09/29/2024 5:00 PM EST Surgery Gastroenterology at [place] [address] Lizet Wilkes MD [facility] [place] [address] EGD, UPPER GI ENDOSCOPY (WRVU 2.09) 11/09/2024 10:00 AM EST Laboratory Appointment Lab at [facility] [place] Oncology [address] [place] [address] 11/09/2024 11:00 AM EST Office Visit Hematology and Oncology at [place] [phone] Faith Caba MD [facility] DR HEMATOLOGY [place] [address] 11/09/2024 12:00 PM EST Appointment Hematology and Oncology at [place] [address] Scheduled Procedures Name Priority Associated Diagnoses Date/Ti me EGD, UPPER GI ENDOSCOPY (WRVU 2.09) Gastroesophageal reflux disease with esophagitis, unspecified whether hemorrhage 09/29/2024 4:30 PM EST documented as of this encounter Visit Diagnoses Not on filedocumented in this encounter Care Teams Chemical Plant Worker Relationship Specialty Start Date End Date Kennedi Shaver MD [facility] [address] [place] [address] PCP - General 08/22/10 08/01/20 documented as of this encounter
--- OUTSIDE RECORDS SUMMARY | 2024-09-11 15:31 | XMS_ITS | Encounter Summary ---
Author Organization [facility] Address [facility] [place] [address] Care Team Providers Care Outsole Beveler Name Role Phone Kennedi Shaver MD Primary Care Provider [phone] Encounter Details Date Type Department Care Team (Late st Contact Info) Description 11/27/2011 1:00 PM EST - 11/27/2011 1:30 PM EST [place] [address] Nino Rocha MD [facility] [place] [address] UPPER GASTROINTESTINAL ENDOSCOPY,WITH BIOPSY SINGLE OR MULTIPLE [...] Sign Reading Time Taken Comments Blood Pressure 107/57 11/27/2011 2:08 PM EST Pulse 69 11/27/2011 2:08 PM EST Temperature 36.6 ??C (97.9 ??F) 11/27/2011 12:[address] Respiratory Rate 16 11/27/2011 2:08 PM EST Oxygen Saturation 95% 11/27/2011 2:08 PM EST Inhaled Oxygen Concentration - - Weight - - Height - - Body Mass Index - - documented in this encounter Discharge Instructions * Discharge Instructions* Ragini Faria RN - 11/27/2011 2:06 PM EST If questions or concerns please call [phone], after 5 PM call [phone] and ask for the GI Doc preparation operator. You may have received medication before and/or during your procedure which effects judgement and reaction time. Do not drive, operate machinery, drink alcoholic beverages, or make important decisions for 24 hours. Be careful on stairs, as you may be unsteady on your feet. You may eat a regular diet as tolerated. Do not smoke if you are alone. IV site-- slight redness or tenderness is normal. You may use a warm compress. If tenderness and redness increases or foul drainage occurs please contact your M.D. Discharge instructions reviewed with patient who expresses understanding. * Patient Instructions* Nino Rocha MD - 11/27/2011 2:01 PM EST Please see Recommendations in the Provation procedure report which is documented in the procedural note in E-DH. * Attachments The following attachments cannot be sent through Care Everywhere. * UPPER GI ENDOSCOPY: WHAT TO EXPECT AT HOME (FRENCH) documented in this encounter Medications at Time of Discharge Medication Sig Dispensed Refills Start Date End Date DUTASTERIDE/TAMSULOSIN HCL (ARNOL ORAL) Take by mouth daily. ZOLPIDEM TARTRATE (AMBIEN ORAL) 12/05/2010 10/04/2020 pantoprazole (PROTONIX) 40 mg tablet 12/05/2010 04/19/2015 documented as of this encounter H&P Notes * Nino Rocha MD - 11/27/2011 1:20 PM EST Gastroenterology and Hepatology Pre-Procedure History and Physical Exam Procedure: Upper endoscopy Indication: Sol's ablation follow-up He was due back in fall 2010, cancelled it. No dysphagia, no heartburn as long as he stays with PPI bid. Patient Active Problem List Diagnoses Code ??? GERD (gastroesophageal reflux disease) 530.81S EXAM: HEENT: Airway examined, oropharynx clear LUNGS: Clear to auscultation HEART: Regular rate and rhythm, normal S1, S2 ABDOMEN: Normal bowel sounds, soft, non tender, non distended, A/P Proceed with Upper endoscopy with propofol.. Risks and benefits of the procedure explained to the patient. Consent signed. Nino Rocha MD Section of Gastroenterology and Hepatology documented in this encounter Miscellaneous Notes * Miscellaneous - Provider, Scanning - 11/28/2011 1:08 AM EST * Miscellaneous - Provider, Scanning - 11/28/2011 1:06 AM EST * Miscellaneous - Provider, Scanning - 11/27/2011 3:07 PM EST * Op Note - Nino Rocha MD - 11/27/2011 2:00 PM EST [facility] [place] Patient Name: Magdalena Carbone : [id number] MR#: [id number] Case Date: 11/27/2011 Surgeon: Surgeon(s) and Role: * NINO ROCHA MD - Primary Preoperative diagnosis: barretts surveillance Postoperative diagnosis: Sol's with Residual for ablation Procedure(s): UPPER GASTROINTESTINAL ENDOSCOPY,WITH BIOPSY SINGLE OR MULTIPLE Full procedure note is documented under the Procedure section of eD. documented in this encounter Plan of Treatment Upcoming Encounters Date Type Department Care Team (Latest Contact Info) Description 09/29/2024 4:30 PM EST Hospital En[place] [address] Lizet Wilkes MD [facility] [place] [place] [address] 09/29/2024 4:30 PM EST - 09/29/2024 5:00 PM EST [place] [address] Lizet Wilkes MD [facility] [place] [place] [address] EGD, UPPER GI ENDOSCOPY (WRVU 2.09) 11/09/2024 10:00 AM EST Laboratory Appointment Lab at [facility] Hematology Oncology [address] [place] [phone] 11/09/2024 11:00 AM EST Office Visit [place]ematology [place] [phone] Faith Caba MD [facility] [place] [address] 11/09/2024 12:00 PM EST Appointment [place]ematology [place] [address] Scheduled Procedures Name Priority Associated Diagnoses Date/Ti me EGD, UPPER GI ENDOSCOPY (WRVU 2.09) Gastroesophageal reflux disease with esophagitis, unspecified whether hemorrhage 09/29/2024 4:30 PM EST documented as of this encounter Procedures Procedure Name Priority Date/Time Associated Diagnosis Comments SURGICAL PATHOLOGY REPORT Routine 11/27/2011 3:47 PM EST SPECIMEN TO PATHOLOGY Routine 11/27/2011 2:05 PM EST SPECIMEN TO PATHOLOGY Routine 11/27/2011 2:05 PM EST SPECIMEN TO PATHOLOGY Routine 11/27/2011 2:05 PM EST SPECIMEN TO PATHOLOGY Routine 11/27/2011 2:05 PM EST SPECIMEN TO PATHOLOGY Routine 11/27/2011 2:05 PM EST UPPER GASTROINTESTINAL ENDOSCOPY,WITH BIOPSY SINGLE OR MULTIPLE (WRVU 2.39) 11/27/2011 1:34 PM EST barretts surveillance UPPER GI ENDOSCOPY Routine 11/27/2011 1: 24 PM EST documented in this encounter Results * SURGICAL PATHOLOGY REPORT (11/27/2011 3:47 PM EST) Surgical Pathology Report ? [facility] ? Provider: ?? NINO ROCHA ??Pt. Name: ?? MAGDALENA CARBONE ?I ? Acc #: ?[id number] ?Pt. ? Col Date: ?? 11/27/2011 ? /Sex: ?1945,(66 years),Male ? Rec Date: ?? 11/27/2011 ? LOC: ?4T ? SURGICAL PATHOLOGY ? ---Pathologic Diagnosis--- ? A. ??36 to 35 cm esophagus, biopsy: ? Sol's esophagus, negative for dysplasia. ? B. ??34 to 33 cm esophagus, biopsy: ? Esophageal squamous mucosa within normal limits. ? Negative for intestinal metaplasia or dysplasia. ? C. ??32 to 31 cm esophagus, biopsy: ? Esophageal squamous mucosa within normal limits. ? Negative for intestinal metaplasia or dysplasia. ? D. ??30 to 29 cm esophagus, biopsy: ? Esophageal squamous mucosa within normal limits. ? Negative for intestinal metaplasia or dysplasia. ? E. ??28 to 27 cm esophagus, biopsy: ? Esophageal squamous mucosa within normal limits. ? Negative for intestinal metaplasia or dysplasia. ? CR-0 ? 11/29/11 ? AAS ? 11/29/11 Verified by: ? Mely Ayala MD ? Pathologist ? (Electronic Signature) ? The attending pathologist whose signature appears on this report has ? reviewed all diagnostic slides and has edited the gross and/or ? microscopic portion of the report in rendering the final pathologic ? diagnosis. ? ---Microscopic Description--- ? Slides reviewed, microscopic description not recorded. ? ---Gross Description--- ? A - Labeled/Fixativ e: 36 to 35 cm esophagus, formalin. ? Qty/Size/Weight : ?Multiple, averaging 0.5 cm. ? Tissue Description: ?? Soft, pink-red tissues. ? Sections/Proces sing: ??(T3) ? B - Labeled/Fixativ e: 34 to 33 cm esophagus, formalin. ? [facility] ? Provider: ?? NINO ROCHA ??Pt. Name: ?? MAGDALENA CARBONE ?I ? Acc #: ?[id number] ?Pt. ? Col Date: ?? 11/27/2011 ? /Sex: ?1945,(66 years),Male ? Rec Date: ?? 11/27/2011 ? LOC: ?4T ? Qty/Size/Weight : ?Multiple, ranging from 0.2 cm to 0.5 cm in ? SURGICAL PATHOLOGY ? greatest dimension. ? Tissue Description: ?? Soft, pink tissues. ? Sections/Proces sing: ??(T3) ? C - Labeled/Fixativ e: 32 to 31 cm esophagus, formalin. ? Qty/Size/Weight : ?Multiple, ranging from 0.1 cm to 0.5 cm in ? greatest dimension. ? Tissue Description: ?? Soft, vital tissues. ? Sections/Proces sing: ??(T3) ? D - Labeled/Fixativ e: 30 to 29 cm esophagus, formalin. ? Qty/Size/Weight : ?Multiple, ranging from 0.2 cm to 0.4 cm in ? greatest dimension. ? Tissue Description: ?? Soft, pink tissues. ? Sections/Proces sing: ??(T2) ? E - Labeled/Fixativ e: 28 to 27 cm esophagus, formalin. ? Qty/Size/Weight : ?Multiple, ranging from 0.1 cm to 0.5 cm in ? greatest dimension. ? Tissue Description: ?? Soft, pink tissues. ? Sections/Proces sing: ??(T3) vms/SNS ? ---Clinical Information--- ? Specimen Submitted: ? A - 36 to 35 cm esophagus ? B - 34 to 33 cm esophagus ? C - 32 to 31 cm esophagus ? D - 30 to 29 cm esophagus ? E - 28 to 27 cm esophagus ? Clinical History/Diagnos is: ? History of HGD Sol's with incomplete ablation so far CERNER MILLENNIUM 11/27/2011 3:47 PM EST Nino Zarate MD PATHOLOGY/CYTOLO GY ORDERABLES Performing Organization Address [facility] Phone Number [facility] * Specimen to Pathology (surgical or derm) (11/27/2011 2:05 PM EST) AP Specimen 11/27/2011 2:05 PM EST 11/27/2011 2:05 PM EST Narrative CERNER MILLENNIUM - 11/27/2011 2:05 PM EST Specimen requisition ordered. ??Separate Pathology report to follow Nino Zarate MD PATHOLOGY/CYTOLO GY ORDERABLES Performing Organization Address [facility] Phone Number [facility] [employer] * Specimen to Pathology (surgical or derm) (11/27/2011 2:05 PM EST) AP Specimen 11/27/2011 2:05 PM EST 11/27/2011 2:05 PM EST Narrative CERNER MILLENNIUM - 11/27/2011 2:05 PM EST Specimen requisition ordered. ??Separate Pathology report to follow Nino Zarate MD PATHOLOGY/CYTOLO GY ORDERABLES Performing Organization Address [facility] Phone Number [facility] * Specimen to Pathology (surgical or derm) (11/27/2011 2:05 PM EST) AP Specimen 11/27/2011 2:05 PM EST 11/27/2011 2:05 PM EST Narrative CERNER MILLENNIUM - 11/27/2011 2:05 PM EST Specimen requisition ordered. ??Separate Pathology report to follow Nino Zarate MD PATHOLOGY/CYTOLO GY ORDERABLES Performing Organization Address [facility] Phone Number [facility] * Specimen to Pathology (surgical or derm) (11/27/2011 2:05 PM EST) AP Specimen 11/27/2011 2:05 PM EST 11/27/2011 2:05 PM EST Narrative [facility] - 11/27/2011 2:05 PM EST Specimen requisition ordered. ??Separate Pathology report to follow Nino Zarate MD PATHOLOGY/CYTOLO GY ORDERABLES Performing Organization Address [facility] de Phone Number [facility] * Specimen to Pathology (surgical or derm) (11/27/2011 2:05 PM EST) AP Specimen 11/27/2011 2:05 PM EST 11/27/2011 2:05 PM EST Narrative [facility] - 11/27/2011 2:05 PM EST Specimen requisition ordered. ??Separate Pathology report to follow Nino Zarate MD PATHOLOGY/CYTOLO GY ORDERABLES Performing Organization Address [facility] de Phone Number [facility] * UPPER GI ENDOSCOPY (11/27/2011 1:24 PM EST) UPPER GI ENDOSCOPY [facility] Endoscopy Patient Name: Magdalena Carbone ? Procedure Date: 11/27/2011 1:24 PM ? Date of : 1945 ? Age: 66 ? Order #: [id number] ? Procedure: ? Upper GI endoscopy Indications: ? Follow-up of Sol's esophagus Providers: ? Nino Rocha MD, Dinora ? Mary, NUZHAT, Maurice Coker, ? Meat Stocker Referring : ?Kennedi Shaver MD Complications: ? No immediate complications. Procedure: ? [...] with mild systemic disease. ? - Anesthesia using IV propofol was ? determined to be medically necessary ? for this procedure based on review of ? the patient's medical history, ? medications, and prior anesthesia ? history. ? - Immediately prior to administration ? [...] the gastric folds which were ? at 36 cm from the incisors to the Z-line which was at ? 34 cm from the incisors. Scattered islands of ? salmon-colored mucosa were present from 34 to 36 cm. ? Biopsies were taken with a cold forceps for histology ? in areas from 36 to 27 cm. Multiple small sessile ? polyps were found in the gastric fundus and in the ? gastric body. A medium-sized hiatus hernia was ? present. The examined duodenum was normal. ? 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 This was biopsied. ? - Multiple gastric polyps. ? - Hiatus hernia. ? - Normal examined duodenum. Recommendation: ?- Await pathology results. ? - Continue present medications. ? - Repeat the upper endoscopy in 2 ? months for retreatment. ? Nino Rocha MD 11/27/2011 3:11 PM ? Number of Addenda: 0 Note Initiated On: 11/27/2011 1:24 PM [employer]ATION 11/27/2011 1:24 PM EST Kennedi Shaver MD GENERAL SURGICAL ORD ERABLES [employer]ATION documented in this encounter Visit Diagnoses Not on filedocumented in this encounter Active and Recently Administered Medications Care Teams Outsole Beveler Relationship Specialty Start Date End Date Kennedi Shaver MD [address] [place] [address] PCP - General 08/22/10 08/01/20 documented as of this encounter
--- OUTSIDE RECORDS SUMMARY | 2024-09-11 15:31 | XMS_ITS | Encounter Summary ---
Author Organization [facility] [place] [address] Care Team Providers Care Pattern Filer Name Role Phone Kennedi Shaver MD Primary Care Provider [phone] Encounter Details Date Type Department Care Team (Late st Contact Info) Description 04/22/2012 2:00 PM EDT - 04/22/2012 3:00 PM EDT [place] [address] Nino Rocha MD [facility] [place] [place] [address] ENDOSCOPY, UPPER GI, W\ABLATION TUMOR\POLYP\LESION Social History Tobacco Use Types Packs/Day Years [...] Sign Reading Time Taken Comments Blood Pressure 126/74 04/22/2012 1:35 PM EDT Pulse 63 04/22/2012 1:35 PM EDT Temperature 36.8 ??C (98.2 ??F) 04/22/2012 1:35 PM ED T Respiratory Rate 18 04/22/2012 1:35 PM EDT Oxygen Saturation 96% 04/22/2012 1:35 PM EDT Inhaled Oxygen Concentration - - Weight - - Height - - Body Mass Index - - documented in this encounter Discharge Instructions * Discharge Instructions* Bella Crews RN - 04/22/2012 3:41 PM EDT You may have received medication before and/or during your procedure, which affects judgement and reaction time. Do not drive, operate machinery, drink alcoholic beverages, or make important decisions for 24 hours. Be careful on stairs, as you may be unsteady on your feet. You may eat a regular diet as tolerated. Do not smoke if you are alone. IV site -- slight redness, or tenderness is normal, you can use a warm compress. If tenderness and redness increases or foul drainage occurs, please contact your M. D. * Attachments The following attachments cannot be sent through Care Everywhere. * UPPER GI ENDOSCOPY: WHAT TO EXPECT AT HOME ([place]) documented in this encounter Medications at Time of Discharge Medication Sig Dispensed Refills Start Date End Date DUTASTERIDE/TAMSULOSIN HCL (ARNOL ORAL) Take by mouth daily. ZOLPIDEM TARTRATE (AMBIEN ORAL) 12/05/2010 10/04/2020 pantoprazole (PROTONIX) 40 mg tablet 12/05/2010 04/19/2015 documented as of this encounter H&P Notes * Paula Moctezuma MD - 04/22/2012 2:24 PM EDT Gastroenterology & Hepatology Pre-Procedure History and Physical Procedure: EGD with possible RFA Indication: Sol's with history of HGD History of Present Illness: Mr. 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 He is s/p RFA x 4 (last in 01/2011), last EGDwas 10/2011. PMH: BPH GERD/BE with HGD Medications: No current facility-administered medications on file prior to encounter. Current outpatient prescriptions ordered prior to encounter Medication Sig Dispense Refill ??? DUTASTERIDE/TAMSULOSIN HCL (ARNOL ORAL) Take by mouth daily. ??? ZOLPIDEM TARTRATE (AMBIEN ORAL) ??? 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 Exam: Patient Vitals in the past 24 hrs: BP Temp Temp src Pulse Resp SpO2 04/22/12 1335 126/74 mmHg 36.8 ??C (98.2 ??F) Oral 63 18 96 % Airway examined Chest- clear Heart- RRR, nl s1, s2 Abdomen- normal bowel sounds, soft, non tender Assessment and Plan: Pleasant 66M with PMH of BE/HGD, here for EGD. Consented for EGD +/- RFA or EMR if nodularity found. Anesthesia assistance. Risks and benefits of the procedure were discussed with the patient. Consent has been signed. documented in this encounter Miscellaneous Notes * Miscellaneous - Provider, Scanning - 04/23/2012 5:42 AM EDT * Miscellaneous - Provider, Scanning - 04/23/2012 3:38 AM EDT * Miscellaneous - Provider, Scanning - 04/23/2012 3:29 AM EDT * Op Note - Nino Rocha MD - 04/22/2012 5:59 PM EDT [facility] Operative Note Patient Name: Magdalena Horn : [id number] MR#: [id number] Case Date: 04/22/2012 Surgeon: Surgeon(s) and Role: * NINO ROCHA MD - Primary * PAULA MOCTEZUMA MD Preoperative diagnosis: 2 MO FU retreatment [consult] Postoperative diagnosis: Sol's with radiofrequency ablation Procedure(s): ENDOSCOPY, UPPER GI, W\ABLATION TUMOR\POLYP\LESION UPPER GASTROINTESTINAL ENDOSCOPY,WITH BIOPSY SINGLE OR MULTIPLE Full procedure note is documented under the Procedure section of eDH. * Miscellaneous - Provider, Scanning - 04/22/2012 2:41 PM EDT documented in this encounter Plan of Treatment Upcoming Encounters Date Type Department Care Team (Latest Contact Info) Description 09/29/2024 4:30 PM EST Hospital Encounter Gastroenterology at [place] [phone] Lizet Wilkes MD [facility] [place] [address] 09/29/2024 4:30 PM EST - 09/29/2024 5:00 PM EST Surgery Gastroenterology at [place] [phone] Lizet Wilkes MD [facility] [place] [address] EGD, UPPER GI ENDOSCOPY (WRVU 2.09) 11/09/2024 10:00 AM EST Laboratory Appointment Lab at [facility] Hematology Oncology [address] [place], [place] [phone] 11/09/2024 11:00 AM EST Office Visit Hematology and Oncology at [place] [phone] Faith Caba MD [facility] [address] HEMATOLOGY [place] [address] 11/09/2024 12:00 PM EST Appointment Hematology and Oncology at [place] [phone] Scheduled Procedures Name Priority Associated Diagnoses Date/Ti me EGD, UPPER GI ENDOSCOPY (WRVU 2.09) Gastroesophageal reflux disease with esophagitis, unspecified whether hemorrhage 09/29/2024 4:30 PM EST documented as of this encounter Procedures Procedure Name Priority Date/Time Associated Diagnosis Comments SURGICAL PATHOLOGY REPORT Routine 04/22/2012 4:55 PM EDT SPECIMEN TO PATHOLOGY Routine 04/22/2012 3:28 PM EDT SPECIMEN TO PATHOLOGY Routine 04/22/2012 3:28 PM EDT SPECIMEN TO PATHOLOGY Routine 04/22/2012 3:28 PM EDT UPPER GASTROINTESTINAL ENDOSCOPY,WITH BIOPSY SINGLE OR MULTIPLE (WRVU 2.39) 04/22/2012 2:33 PM EDT 2 MO FU retreatment [consult] ENDOSCOPY, UPPER GI, W\ABLATION TUMOR\POLYP\LESION 04/22/2012 2:33 PM EDT 2 MO FU retreatment [consult] UPPER GI ENDOSCOPY Routine 04/22/2012 2: 22 PM EDT documented in this encounter Results * SURGICAL PATHOLOGY REPORT (04/22/2012 4:55 PM EDT) Surgical Pathology Report ? [facility] ? Provider: ?? NINO ROCHA ??Pt. Name: ?? MAGDALENA HORN ?I ? Acc #: ?[id number] ?Pt. ? Col Date: ?? 04/22/2012 ? /Sex: ?1945,(66 years),Male ? Rec Date: ?? 04/22/2012 ? LOC: ?4T ? SURGICAL PATHOLOGY ? ---Pathologic Diagnosis--- ? Endoscopic biopsies: ? A - Esophagus 32 to 31 cm, ? Esophageal squamous mucosa with rare eosinophils, nonspecific. ? B - Esophagus 30 to 29 cm, ? Esophageal squamous mucosa within normal limits. ? C - Esophagus 28 to 27 cm, ? Esophageal squamous mucosa within normal limits. ? NOTE: Negative for intestinal metaplasia or dysplasia in specimens A ? through C. ? CR-0 ? 04/23/12 ? XL ? 04/23/12 Verified by: ? Da Nichols MD ? Pathologist ? (Electronic Signature) ? The attending pathologist whose signature appears on this report has ? reviewed all diagnostic slides and has edited the gross and/or ? microscopic portion of the report in rendering the final pathologic ? diagnosis. ? ---Microscopic Description--- ? Slides reviewed, microscopic description not recorded. ? ---Gross Description--- ? A - Labeled/Fixativ e: Esophagus 32 to 31 cm, formalin. ? Qty/Size/Weight : ?Multiple, averaging 0.3 x 0.2 x 0.2 cm. ? Tissue Description: ?? Soft, vital tissues. ? Sections/Proces sing: ??(T2) ? B - Labeled/Fixativ e: Esophagus 30 to 29 cm, formalin. ? Qty/Size/Weight : ?Fragments, averaging 0.3 x 0.2 x 0.2 cm. ? Tissue Description: ?? Soft, vital-pink tissues. ? Sections/Proces sing: ??(T1) ? C - Labeled/Fixativ e: Esophagus 28 to 27 cm, formalin. ? Qty/Size/Weight : ?Multiple, averaging 0.3 x 0.2 x 0.2 cm. ? [facility] ? Provider: ?? NINO ROCHA ??Pt. Name: ?? MAGDALENA HORN ?I ? Acc #: ?[id number] ?Pt. ? Col Date: ?? 04/22/2012 ? /Sex: ?1945,(66 years),Male ? Rec Date: ?? 04/22/2012 ? LOC: ?4T ? Tissue Description: ?? Soft, wispy, pink-vital tissues. ? SURGICAL PATHOLOGY ? Sections/Proces sing: ??(T2) ??aje/PPS ? ---Clinical Information--- ? Specimen Submitted: ? A - Esophagus 32 to 31 cm ? B - Esophagus 30 to 29 cm ? C - Esophagus 28 to 27 cm ? Clinical History/Diagnos is: ? HX of dysplastic Sol's, S/P ablation CERNER MILLENNIUM 04/22/2012 4:55 PM EDT Nino Zarate MD PATHOLOGY/CYTOLO GY ORDERABLES Performing Organization Address [facility] Co de Phone Number [facility] * Specimen to Pathology (surgical or derm) (04/22/2012 3:28 PM EDT) AP Specimen 04/22/2012 3:28 PM EDT 04/22/2012 3:28 PM EDT Narrative CERNER MILLENNIUM - 04/22/2012 3:28 PM EDT Specimen requisition ordered. ??Separate Pathology report to follow Nino Zarate MD PATHOLOGY/CYTOLO GY ORDERABLES Performing Organization Address [facility]/State/ZIP Co de Phone Number [facility] * Specimen to Pathology (surgical or derm) (04/22/2012 3:28 PM EDT) AP Specimen 04/22/2012 3:28 PM EDT 04/22/2012 3:28 PM EDT Narrative TJ MCBRIDE - 04/22/2012 3:28 PM EDT Specimen requisition ordered. ??Separate Pathology report to follow Nino Zarate MD PATHOLOGY/CYTOLO GY ORDERABLES Performing Organization Address [facility] de Phone Number TJ [facility]BRIDE * Specimen to Pathology (surgical or derm) (04/22/2012 3:28 PM EDT) AP Specimen 04/22/2012 3:28 PM EDT 04/22/2012 3:28 PM EDT Narrative TJ MCBRIDE - 04/22/2012 3:28 PM EDT Specimen requisition ordered. ??Separate Pathology report to follow Nino Zarate MD PATHOLOGY/CYTOLO GY ORDERABLES Performing Organization Address [facility] de Phone Number TJ MCBRIDE * UPPER GI ENDOSCOPY (04/22/2012 2:22 PM EDT) UPPER GI ENDOSCOPY [facility] Endoscopy Patient Name: Magdalena Horn ? Procedure Date: 04/22/2012 2:22 PM ? Date of : 1945 ? Age: 66 ? Order #: [id number] ? Procedure: ? Upper GI endoscopy Indications: ? For therapy of Sol's esophagus Providers: ? Nino Rocha MD, Paula Finley ? MD Rhianna, Dinora Hernandez RN Referring : ?Kennedi Shaver MD Medicines: ? Sedation Required Anesthesia Staff ? Assistance Complications: ? No immediate complications. Procedure: ? [...] to undergo the ? procedure. ? - Anesthesia using IV propofol was [...] to the Z-line which was at ? 33 cm from the incisors. Biopsies taken 32 to 27 cm, ? and focal ablation performed distally as below. No ? visible abnormalities were present. Focal Bipolar ? Thermal Ablation Sol's Esophagus: ? - With the endoscope in place, the position and ? extent of the Sol's mucosa and the anatomic ? landmarks including proximal and distal extent of ? Sol's, top of gastric folds and crural pinch were ? noted. The Sol's mucosa was irrigated with water. ? Gastric and esophageal contents [...] of Sol's esophagus were ? completely treated. Estimated blood loss was minimal. ? Multiple large sessile polyps were found in the ? gastric fundus and in the gastric body. A large ? hiatus hernia was found. The proximal extent of the ? gastric folds (end of tubular esophagus) was 36 cm ? from the incisors. The hiatal narrowing was 41 cm ? from the incisors. ? 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 ? - Multiple gastric polyps. ? - Hiatus hernia. ? - Focal thermal ablation for ? Sol's esophagus performed. Recommendation: ?- Await pathology results. ? - Continue present medications. ? - Repeat the upper endoscopy in 3 ? months for surveillance. ? Nino Rocha MD 04/22/2012 3:23 PM ? Number of Addenda: 0 Note Initiated On: 04/22/2012 2:22 PM PROVATION 04/22/2012 2:22 PM EDT Kennedi Shaver MD GENERAL SURGICAL ORD ERABLES PROVATION documented in this encounter Visit Diagnoses Not on filedocumented in this encounter Active and Recently Administered Medications Care Teams Pattern Filer Relationship Specialty Start Date End Date Kennedi Shaver MD [address] [place] [address] PCP - General 08/22/10 08/01/20 documented as of this encounter
--- OUTSIDE RECORDS SUMMARY | 2024-09-11 15:31 | XMS_ITS | Encounter Summary ---
Author Organization [facility] Address [facility] [place] [address] Care Team Providers Care Bilingual Sales Assistant Name Role Phone Kennedi Shaver MD Primary Care Provider [phone] Encounter Details Date Type Department Care Team (Latest Contact Info) Description 11/27/2011 12:07 PM EST - 11/27/2011 4:25 PM EST Hospital En[place] [address] Nino Rocha MD [facility] [place] [address] Discharge Disposition: Home Social History Tobacco Use [...] EST If questions or concerns please call [phone], after 5 PM call [phone] and ask for the GI Doc regional environmental manager. You may have received medication before and/or [...] GI ENDOSCOPY: WHAT TO EXPECT AT HOME ([place]) documented in this encounter Medications at Time [...] Rocha MD - 11/27/2011 2:00 PM EST [facility] Operative Note Patient Name: Magdalena Horn : [id number] MR#: [id number] Case Date: 11/27/2011 Surgeon: Surgeon(s) and Role: [...] 4:30 PM EST Hospital En[place] [address] Lizet Wilkes MD [facility] [place] [address] 09/29/2024 4:30 PM EST - 09/29/2024 5:00 PM EST Surgery Gastroenterology at [place] [phone] Lizet Wilkes MD [facility] [place] [address] EGD, UPPER GI ENDOSCOPY (WRVU 2.09) 11/09/2024 10:00 AM EST Laboratory Appointment Lab at [facility] Hematology Oncology [address] [place] [phone] 11/09/2024 11:00 AM EST Office Visit Hematology and Oncology at [place] [phone] Faith Caba MD [facility] DR HEMATOLOGY [place] [address] 11/09/2024 12:00 PM EST Appointment Hematology and Oncology at [place] [phone] Scheduled Procedures Name Priority Associated Diagnoses Date/Ti [...] 3:47 PM EST) Surgical Pathology Report ? [facility] ? Provider: ?? NINO ROCHA ??Pt. Name: ?? MAGDALENA HORN ?I ? Acc #: ?[id number] ?Pt. ? Col Date: ?? 11/27/2011 ? [...] 34 to 33 cm esophagus, formalin. ? [facility] ? Provider: ?? NINO ROCHA ??Pt. Name: ?? MAGDALENA HORN ?I ? Acc #: ?[id number] ?Pt. ? Col Date: ?? 11/27/2011 ? [...] MD PATHOLOGY/CYTOLO GY ORDERABLES Performing Organization Address [facility] de Phone Number TJ MCBRIDE * Specimen to Pathology (surgical or derm) (11/27/2011 2:05 PM EST) AP Specimen 11/27/2011 2:05 PM EST 11/27/2011 2:05 PM EST Narrative CERNER TIMENNIUM - 11/27/2011 2:05 PM EST Specimen requisition ordered. ??Separate Pathology report to follow Nino Zarate MD PATHOLOGY/CYTOLO GY ORDERABLES Performing Organization Address [facility] Phone Number TJ MCBRIDE * Specimen to Pathology (surgical or derm) (11/27/2011 2:05 PM EST) AP Specimen 11/27/2011 2:05 PM EST 11/27/2011 2:05 PM EST Narrative CERNER TIMENNIUM - 11/27/2011 2:05 PM EST Specimen requisition ordered. ??Separate Pathology report to follow Nino Zarate MD PATHOLOGY/CYTOLO GY ORDERABLES Performing Organization Address [facility] Phone Number TJ MCBRIDE * Specimen to Pathology (surgical or derm) (11/27/2011 2:05 PM EST) AP Specimen 11/27/2011 2:05 PM EST 11/27/2011 2:05 PM EST Narrative CERNER MILLENNIUM - 11/27/2011 2:05 PM EST Specimen requisition ordered. ??Separate Pathology report to follow Nino Zarate MD PATHOLOGY/CYTOLO GY ORDERABLES Performing Organization Address [facility] de Phone Number [facility]J [facility] * Specimen to Pathology (surgical or derm) (11/27/2011 2:05 PM EST) AP Specimen 11/27/2011 2:05 PM EST 11/27/2011 2:05 PM EST Narrative TJ MCBRIDE - 11/27/2011 2:05 PM EST Specimen requisition ordered. ??Separate Pathology report to follow Nino Zarate MD PATHOLOGY/CYTOLO GY ORDERABLES Performing Organization Address [facility] de Phone Number [facility] * Specimen to Pathology (surgical or derm) (11/27/2011 2:05 PM EST) AP Specimen 11/27/2011 2:05 PM EST 11/27/2011 2:05 PM EST Narrative [facility] - 11/27/2011 2:05 PM EST Specimen requisition ordered. ??Separate Pathology report to follow Nino Zarate MD PATHOLOGY/CYTOLO GY ORDERABLES Performing Organization Address [facility] de Phone Number [facility] * UPPER GI ENDOSCOPY (11/27/2011 1:24 PM EST) UPPER GI ENDOSCOPY [facility] Endoscopy Patient Name: Magdalena Horn ? Procedure Date: 11/27/2011 1:24 PM ? Date of : 1945 ? Age: 66 ? Order #: [id number] ? Procedure: ? Upper GI endoscopy Indications: ? Follow-up of Sol's esophagus Providers: ? Nino Rocha MD, Dinora ? Mary, NUZHAT, Maurice Coker, ? [employer] Computer Data Processor Referring MD: ?Kennedi Shaver MD Complications: ? No immediate [...] Active and Recently Administered Medications Care Teams Bilingual Sales Assistant Relationship Specialty Start Date End Date Kennedi Shaver MD [facility] [address] [place] [address] PCP - General 08/22/10 08/01/20 documented as of this encounter
--- OUTSIDE RECORDS SUMMARY | 2024-09-11 15:31 | XMS_ITS | Encounter Summary ---
Author Organization [facility] [place] [address] Care Team Providers Care Commissioner Public Works Name Role Phone Kennedi Shaver MD Primary Care Provider [phone] Encounter Details Date Type Department Care Team (Late st Contact Info) Description 10/16/2004 Orders [place] [address] Reynaldo Schumacher MD [facility] [place] [address] Social History Tobacco Use Types Packs/Day Years Used Date Smoking Tobacco: Never Assessed [facility] Inpatient Questions Answer Date Recorded [...] 4:30 PM EST Hospital Encounter [place] [address] Lizet Wilkes MD [facility] [place] [address] 09/29/2024 4:30 PM EST - 09/29/2024 5:00 PM EST Surgery Gastroenterology at [place] [phone] Lizet Wilkes MD [facility] [place] [address] EGD, UPPER GI ENDOSCOPY (WRVU 2.09) 11/09/2024 10:00 AM EST Laboratory Appointment Lab at [facility] Hematology Oncology [address] [place] [phone] 11/09/2024 11:00 AM EST Office Visit Hematology [place] [phone] Faith Caba MD [facility] DR [place] [address] 11/09/2024 12:00 PM EST Appointment Hematology and Oncology at [place] [phone] Scheduled Procedures Name Priority Associated Diagnoses Date/Ti hi EGD, UPPER GI ENDOSCOPY (WRVU 2.09) Gastroesophageal reflux disease with esophagitis, unspecified whether hemorrhage 09/29/2024 4:30 PM EST documented as of this encounter Goals Goal Patient Goal Type Associated Problems Recent Progress Patient-Stated? Author DH Home Medication Compliance and Understanding Patient Facing Action Plan Curly Nicolas, [facility] Note: The patient? s goal is to continue positive results of oral chemotherapy by maintaining improved labs PSA or stable scans in clinic for the upcoming year. documented as of this encounter Procedures Procedure Name Priority Date/Time Associated Diagnosis Comments SURGICAL PATHOLOGY REPORT Routine 10/16/2004 12:50 PM EST documented in this encounter Results * Surgical Pathology Report (10/16/2004 12:50 PM EST) Surgical Pathology Report [id number] ? Location: The signing pathologist has (i) examined the relevant preparation(s) for the specimen(s) and (ii) rendered or confirmed the diagnosis(es). . ?Pathology Surgical Pathology Final Report Clinical Information Specimen Submitted: A - Left prostate x 5 B - Right prostate x 5 Clinical History: PSA of ~ 6. ??Elevated PSA Gross Description A - Labeled/Fixativ e: Labeled with the patient's name, medical record ?number and L; formalin. Qty/Size/Weight : ?Five needle core biopsies, ranging from 1.4 x 0.1 cm ?to 2.3 x 0.1 cm. ??Soft, vital. Sections/Proces sing: ??(T2) B - Labeled/Fixativ e: Labeled with the patient's name, medical record ?number and R; formalin. Qty/Size/Weight : ?Six needle core biopsies, ranging from 0.9 x 0.1 cm ?to 1.3 x 0.1 cm. ??Soft, pink. Sections/Proces sing: ??(T2) ??aje/SNS Microscopic Description Slides reviewed, microscopic description not recorded. Diagnosis A - Left prostate, needle biopsies: ?Benign prostatic tissue with focal lobular atrophy, mild inflammation, ?and focal reactive atypia. B - Right prostate, needle biopsies: ?Benign prostatic tissue with glandular atrophy. CR-0 10/18/04 ARS 10/18/04 Verified by: ? German Rubi MD ?Pathologist ?(Electronic Signature) The attending pathologist whose signature appears on this report has reviewed all diagnostic slides and has edited the gross and/or microscopic portion of the report in rendering the final pathologic diagnosis. [facility] 10/16/2004 12:5 0 PM EST Reynaldo Schumacher MD PATHOLOGY/CYTOLOGY O RDERABLES Performing Organization Address City/State/[facility] Co de Phone Number [facility] documented in this encounter Visit Diagnoses Not on filedocumented in this encounter Care Teams Commissioner Public Works Relationship Specialty Start Date End Date Kennedi Shaver MD [address] [place] [address] PCP - General Family Medicine 08/02/20 06/24/24 documented as of this encounter
--- OUTSIDE RECORDS SUMMARY | 2024-09-11 15:31 | XMS_ITS | Encounter Summary ---
Author Organization [facility] Address [address] [place] [address] Care Team Providers Care Conservation Assistant Name Role Phone Kennedi Shaver MD Primary Care Provider [phone] Encounter Details Date Type Department Care Team (Latest Contact Info) Description 02/20/2017 19:06 EDT - 02/20/2017 23:59 EDT Hospital Encounter [address] [address] Unknown, Provider, MD Discharge Disposition: Auto Discharge Social History Tobacco Use Types Packs/Day Years Used Date Smoking Tobacco: Never Assessed Sex and Gender Information Value Date Recorded Sex Assigned at Not on file Legal Sex Male 18:24 EST Gender Identity Not on file Sexual Orientation Not on file documented as of this encounter Discharge Disposition Disposition Code Departure Means Destination Auto Discharge Home documented in this encounter Plan of Treatment Not on file documented as of this encounter Visit Diagnoses Not on filedocumented in this encounter Care Teams Conservation Assistant Relationship Specialty Start Date End Date Kennedi Shaver MD [address] [place] [phone] PCP - General 08/22/15 documented as of this encounter
--- OUTSIDE RECORDS SUMMARY | 2024-09-11 15:31 | XMS_ITS | Encounter Summary ---
Author Organization [place] [address] Care Team Providers Care Hospice Spiritual Care Coordinator Name Role Phone Kennedi Shaver MD Primary Care Provider [phone] Encounter Details Date Type Department Care Team (Late st Contact Info) Description 06/10/2009 Orders [place] [address] Sina Marina MD [facility] [place] [address] Social History Tobacco Use Types Packs/Day Years Used Date Smoking Tobacco: Never Assessed [facility] Inpatient Questions Answer Date Recorded [...] 4:30 PM EST Hospital Encounter [place] [phone] Lizet Wilkes MD [facility] [address] 09/29/2024 4:30 PM EST - 09/29/2024 5:00 PM EST [place] [phone] Lizet Wilkes MD [facility] [place] [address] EGD, UPPER GI ENDOSCOPY (WRVU 2.09) 11/09/2024 10:00 AM EST Laboratory Appointment Lab at [facility] [place] Oncology [address] [place] [phone] 11/09/2024 11:00 AM EST Office Visit Hematology [place] [phone] Faith Caba MD [facility] DR HEMATOLOGY [place] [address] 11/09/2024 12:00 PM EST Appointment Hematology and Oncology at [place] [phone] Scheduled Procedures Name Priority Associated Diagnoses Date/Ti [...] Associated Diagnosis Comments SURGICAL PATHOLOGY REPORT Routine 06/10/2009 2:54 PM EDT documented in this encounter Results * Surgical Pathology Report (06/10/2009 2:54 PM EDT) Surgical Pathology Report [id number] ? Location: 4T The signing pathologist has (i) examined the relevant preparation(s) for the specimen(s) and (ii) rendered or confirmed the diagnosis(es). . ?Pathology Surgical Pathology Final Report Clinical Information Specimen Submitted: A - Polyp, mid transverse B - Polyp, sigmoid C - 34 cm, esophagus D - 32 cm, esophagus E - 30 cm, esophagus F - 28 cm, esophagus Clinical History: Sol's (H/O dysplasia) and colon polyps Clinical Diagnosis: Sol's/screen ing Gross Description A - Labeled/Fixative : Polyp mid transverse, formalin. Qty/Size/Weight: ?Single, 0.3 x 0.3 x 0.3 cm. Tissue Description: ?? Soft, vital tissue. Sections/Process ing: ??(T1) B - Labeled/Fixative : Polyp sigmoid, formalin. Qty/Size/Weight: ?Single, 0.3 x 0.3 x 0.2 cm. Tissue Description: ?? Soft, vital tissue. Sections/Process ing: ??(T1) C - Labeled/Fixative : 34 cm esophagus, formalin. Qty/Size/Weight: ?Four, averaging 0.2 x 0.2 x 0.2 cm. Tissue Description: ?? Soft, vital tissues. Sections/Process ing: ??(T1) D - Labeled/Fixative : 32 cm esophagus, formalin. Qty/Size/Weight: ?Four, averaging 0.2 x 0.2 x 0.1 cm. Tissue Description: ?? Soft, vital tissues. Sections/Process ing: ??(T1) E - Labeled/Fixative : 30 cm esophagus, formalin. Qty/Size/Weight: ?Three, averaging 0.2 x 0.2 x 0.2 cm. Tissue Description: ?? Soft, vital tissues. Sections/Process ing: ??(T1) F - Labeled/Fixative : 28 cm esophagus, formalin. Qty/Size/Weight: ?Four, averaging 0.2 x 0.2 x 0.1 cm. Tissue Description: ?? Soft, vital tissues. Sections/Process ing: ??(T1) ??aje/SHB Microscopic Description Slides reviewed, microscopic description not recorded. Diagnosis Endoscopic biopsies - A. Hyperplastic polyp. . Diagnosis B. Tubular adenoma. C. 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 No dysplasia is seen. D. 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 E. 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 F. 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 CR-PX 06/13/09 AAS 06/14/09 Verified by: ? Lucy MOON, Mely Lopez ?Pathologist ?(Electronic Signature) The attending pathologist whose signature appears on this report has reviewed all diagnostic slides and has edited the gross and/or microscopic portion of the report in rendering the final pathologic diagnosis. Comment Drs. Isbell and Marisel concur with the interpretation. TJ MCBRIDE 06/10/2009 2:54 PM EDT Sina Marina MD PATHOLOGY/CYTOLOGY O RDERABLES TJ MCBRIDE documented in this encounter Visit Diagnoses Not on filedocumented in this encounter Care Teams Hospice Spiritual Care Coordinator Relationship Specialty Start Date End Date Kennedi Shaver MD [address] [place] [address] PCP - General Family Medicine 08/02/20 06/24/24 documented as of this encounter
--- OUTSIDE RECORDS SUMMARY | 2024-09-11 15:31 | XMS_ITS | Encounter Summary ---
Author Organization [facility] [place] [address] Care Team Providers Care Automobile Appraiser Name Role Phone Kennedi Shaver MD Primary Care Provider [phone] Encounter Details Date Type Department Care Team (Late st Contact Info) Description 02/28/2006 Orders [place] [address] Sina Marina MD [facility] DR [place] [address] Social History Tobacco Use Types Packs/Day Years Used Date Smoking Tobacco: Never Assessed [facility] Inpatient Questions Answer Date Recorded Does [...] 4:30 PM EST Hospital Encounter [place] [phone] Lizet Wilkes MD [facility] [address] 09/29/2024 4:30 PM EST - 09/29/2024 5:00 PM EST [place] [phone] Lizet Wilkes MD [facility] [place] [address] EGD, UPPER GI ENDOSCOPY (WRVU 2.09) 11/09/2024 10:00 AM EST Laboratory Appointment Lab at [facility] Hematology Oncology [address] [place] [phone] 11/09/2024 11:00 AM EST Office Visit Hematology [place] [phone] Faith Caba MD [facility] DR HEMATOLOGY [place] [address] 11/09/2024 12:00 PM EST Appointment Hematology and Oncology at [place] [phone] Scheduled Procedures Name Priority Associated Diagnoses Date/Ti vt EGD, UPPER GI ENDOSCOPY (WRVU 2.09) Gastroesophageal [...] Associated Diagnosis Comments SURGICAL PATHOLOGY REPORT Routine 02/28/2006 4:19 PM EDT documented in this encounter Results * Surgical Pathology Report (02/28/2006 4:19 PM EDT) Surgical Pathology Report [id number] ? Location: The signing pathologist has (i) examined the relevant preparation(s) for the specimen(s) and (ii) rendered or confirmed the diagnosis(es). . 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 Reassess for dysplasia; 3 mo F/U Gross Description A - Labeled/Fixative : 36 cm esophagus A, formalin. Qty/Size/Weight: ?Three, averaging 0.3 x 0.2 x 0.2 cm. Tissue Description: ?? Soft, vital tissues. Sections/Process ing: ??(T1) B - Labeled/Fixative : 34 cm esophagus, formalin. Qty/Size/Weight: ?Four, ranging from 0.2 cm in diameter to ?0.3 x 0.2 x 0.1 cm. Tissue Description: ?? Soft, vital tissues. Sections/Process ing: ??(T1) C - Labeled/Fixative : 32 cm esophagus, formalin. Qty/Size/Weight: ?Four, averaging 0.2 cm in diameter. Tissue Description: ?? Focally hemorrhagic, soft, vital-pink tissues. Sections/Process ing: ??(T1) D - Labeled/Fixative : 30 cm esophagus, formalin. Qty/Size/Weight: ?Three, averaging 0.2 cm in diameter. Tissue Description: ?? Focally hemorrhagic, soft, vital-pink tissues. Sections/Process ing: ??(T1) E - Labeled/Fixative : 28 cm esophagus, formalin. Qty/Size/Weight: ?Four, averaging 0.2 cm in diameter. Tissue Description: ?? Friable soft, vital tissues with focal hemorrhage. Sections/Process ing: ??(T1) ??aje/PPS Microscopic Description Slides reviewed, microscopic description not recorded. Diagnosis Endoscopic biopsies - A. 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 Positive for low grade dysplasia. B. 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 Active inflammation with atypia. Indefinite for dysplasia. C. 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 Positive for low grade dysplasia. . Diagnosis D. 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 Active inflammation with atypia. Indefinite for dysplasia. E. 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 Positive for low grade dysplasia. CR-0 03/01/06 AAS 03/06/06 Verified by: ? Mely Ayala MD ?Pathologist ?(Electronic Signature) The attending pathologist whose signature appears on this report has reviewed all diagnostic slides and has edited the gross and/or microscopic portion of the report in rendering the final pathologic diagnosis. Comment A,B,C and D. Additional levels examined. TJ MCBRIDE 02/28/2006 4:19 PM EDT Sina Marina MD PATHOLOGY/CYTOLOGY O RDERABLES TJ MCBRIDE documented in this encounter Visit Diagnoses Not on filedocumented in this encounter Care Teams Automobile Appraiser Relationship Specialty Start Date End Date Kennedi Shaver MD [address] [place] [address] PCP - General Family Medicine 08/02/20 06/24/24 documented as of this encounter
--- OUTSIDE RECORDS SUMMARY | 2024-09-11 15:31 | XMS_ITS | Encounter Summary ---
Author Organization [facility] Address [address] [place] [address] Care Team Providers Care Electrical Engineering Director Name Role Phone Kennedi Shaver MD Primary Care Provider [phone] Encounter Details Date Type Department Care Team (Late st Contact Info) Description 11/30/2020 Lab Requisition [facility] Pathology & Laboratory Medicine - [address] [address] Outr Resulting Lab, Provider Social History Tobacco [...] RNA BY PCR Routine 11/30/2020 11:20 EST documented in this encounter Results * HEPATITIS C AB W REFLEX TO HCV RNA BY PCR (11/30/2020 11:20 EST) Hep C Antibody Negative Negative 12/01/2020 9:43 EST [facility] Blood VENOUS BLOOD / Unknown 11/30/2020 11:20 EST 11/30/2020 21:34 EST us Provider Outr Resulting Lab CHEMISTRY & BLOOD GA S ORDERABLES Final Result [facility] [address] [place] [address] documented in this encounter Visit Diagnoses Not on filedocumented in this encounter Care Teams Electrical Engineering Director Relationship Specialty Start Date End Date Kennedi Shaver MD [address] [place] [phone] PCP - General 08/22/15 documented as of this encounter
--- OUTSIDE RECORDS SUMMARY | 2024-09-11 15:31 | XMS_ITS | Encounter Summary ---
Author Organization [facility] [place] [address] Care Team Providers Care Tire Maker Name Role Phone Kennedi Shaver MD Primary Care Provider [phone] Encounter Details Date Type Department Care Team (Latest Contact Info) Description 04/22/2012 1:14 PM EDT - 04/22/2012 4:00 PM EDT Hospital Encounter [place] [phone] Nino Rocha MD [facility] [place] [address] Discharge Disposition: Home Social History Tobacco Use [...] Sign Reading Time Taken Comments Blood Pressure 120/70 04/22/2012 3:29 PM EDT Pulse 54 04/22/2012 3:29 PM EDT Temperature 36.8 ??C (98.2 ??F) 04/22/2012 1:35 PM ED T Respiratory Rate 17 04/22/2012 3:29 PM EDT Oxygen Saturation 98% 04/22/2012 3:29 PM EDT Inhaled Oxygen Concentration - - [...] GI ENDOSCOPY: WHAT TO EXPECT AT HOME (AZERI) documented in this encounter Medications at Time [...] Known Allergies 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 Exam: Patient Vitals in [...] Rocha MD - 04/22/2012 5:59 PM EDT [facility] Operative Note Patient Name: Magdalena Horn : [id number] MR#: [id number] Case Date: 04/22/2012 Surgeon: Surgeon(s) and Role: [...] 4:30 PM EST Hospital Encounter Gastroenterology at [place] [phone] Lizet Wilkes MD [facility] [place] [address] 09/29/2024 4:30 PM EST - 09/29/2024 5:00 PM EST [place] [phone] Lizet Wilkes MD [facility] [place] [address] EGD, UPPER GI ENDOSCOPY (WRVU 2.09) 11/09/2024 10:00 AM EST Laboratory Appointment Lab at [facility] Hematology Oncology [address] [place] [phone] 11/09/2024 11:00 AM EST Office Visit Hematology and Oncology at [place] [phone] Faith Caba MD [facility] [place] [address] 11/09/2024 12:00 PM EST Appointment Hematology and Oncology at [place] [phone] Scheduled Procedures Name Priority Associated Diagnoses Date/Ti wy EGD, UPPER GI ENDOSCOPY (WRVU 2.09) Gastroesophageal [...] 4:55 PM EDT) Surgical Pathology Report ? [facility] ? Provider: ?? NINO ROCHA ??Pt. Name: ?? MAGDALENA HORN ?I ? Acc #: ?[id number] ?Pt. ? Col Date: ?? 04/22/2012 ? [...] 0.3 x 0.2 x 0.2 cm. ? [facility] ? Provider: ?? NINO ROCHA ??Pt. Name: ?? JUSTINA MAGDALENA Lopez ?I ? Acc #: ?[id number] ?Pt. ? Col Date: ?? 04/22/2012 ? [...] MD PATHOLOGY/CYTOLO GY ORDERABLES Performing Organization Address City/[facility] Co de Phone Number CERLANA DUMONTENNIUM * Specimen to Pathology (surgical or derm) (04/22/2012 3:28 PM EDT) AP Specimen 04/22/2012 3:28 PM EDT 04/22/2012 3:28 PM EDT Narrative CERNER MILLENNIUM - 04/22/2012 3:28 PM EDT Specimen requisition ordered. ??Separate Pathology report to follow Nino Zarate MD PATHOLOGY/CYTOLO GY ORDERABLES Performing Organization Address [facility]/State/ZIP Co de Phone Number [facility] TIM[facility] * Specimen to Pathology (surgical or derm) (04/22/2012 3:28 PM EDT) AP Specimen 04/22/2012 3:28 PM EDT 04/22/2012 3:28 PM EDT Narrative TJ JUNIORIUM - 04/22/2012 3:28 PM EDT Specimen requisition ordered. ??Separate Pathology report to follow Nino Zarate MD PATHOLOGY/CYTOLO GY ORDERABLES Performing Organization Address [facility] Co de Phone Number TJ MCBRIDE * Specimen to Pathology (surgical or derm) (04/22/2012 3:28 PM EDT) AP Specimen 04/22/2012 3:28 PM EDT 04/22/2012 3:28 PM EDT Narrative CERLANA JUNIORIUM - 04/22/2012 3:28 PM EDT Specimen requisition ordered. ??Separate Pathology report to follow Nino Zarate MD PATHOLOGY/CYTOLO GY ORDERABLES Performing Organization Address [facility] Co de Phone Number TJ MCBRIDE * UPPER GI ENDOSCOPY (04/22/2012 2:22 PM EDT) UPPER GI ENDOSCOPY [facility] Endoscopy Patient Name: Magdalena Horn ? Procedure Date: 04/22/2012 2:22 PM ? Date of : 1945 ? Age: 66 ? Order #: [id number] ? Procedure: ? Upper GI endoscopy Indications: ? For therapy of Sol's esophagus Providers: ? Nino Rocha MD, Paula Finley ? MD Rhianna, Dinora Hernandez RN Referring MD: ?Kennedi Shaver MD Medicines: ? [...] Active and Recently Administered Medications Care Teams Tire Maker Relationship Specialty Start Date End Date Kennedi Shaver MD [address] [place] [address] PCP - General 08/22/10 08/01/20 documented as of this encounter
--- OUTSIDE RECORDS SUMMARY | 2024-09-11 15:31 | XMS_ITS | Encounter Summary ---
Author Organization [facility] [place] [address] Care Team Providers Care Electrical Engineer Name Role Phone Kennedi Shaver MD Primary Care Provider [phone] Encounter Details Date Type Department Care Team (Late st Contact Info) Description 09/19/2007 Orders Only [place] [address] Sina Marina MD [facility] [place] [address] Social History Tobacco Use Types Packs/Day Years Used Date Smoking Tobacco: Never Assessed [facility] Inpatient Questions Answer Date Recorded [...] 4:30 PM EST Hospital Encounter [place] [phone] Lizet Wilkes MD [facility] [place] [address] 09/29/2024 4:30 PM EST - 09/29/2024 5:00 PM EST Surgery [place] [phone] Lizet Wilkes MD [facility] [place] [address] EGD, UPPER GI ENDOSCOPY (WRVU 2.09) 11/09/2024 10:00 AM EST Laboratory Appointment Lab at [facility] Hematology Oncology [address] [place] [phone] 11/09/2024 11:00 AM EST Office Visit Hematology [place] [phone] Faith Caba MD [facility] DR [place] [address] 11/09/2024 12:00 PM EST Appointment Hematology and Oncology at [place] [phone] Scheduled Procedures Name Priority Associated Diagnoses Date/Ti tn EGD, UPPER GI ENDOSCOPY (WRVU 2.09) Gastroesophageal [...] Associated Diagnosis Comments SURGICAL PATHOLOGY REPORT Routine 09/19/2007 5:30 PM EST documented in this encounter Results * Surgical Pathology Report (09/19/2007 5:30 PM EST) Surgical Pathology Report [id number] ? Location: The signing pathologist has (i) examined the relevant preparation(s) for the specimen(s) and (ii) rendered or confirmed the diagnosis(es). . ?Pathology Surgical Pathology Final Report Clinical Information Specimen Submitted: A - 36 cm; 36 cm B - 34 cm; 34 cm C - 32 cm; 32 cm D - 30 cm; 30 cm E - 28 cm; 28 cm Clinical History: 10 cm segment Sol's with history of LGD reassess. Clinical Diagnosis: F/U Sol's Gross Description A - Labeled/Fixativ e: 36 cm, formalin. Qty/Size/Weight : ?Five, averaging 0.2 cm. Tissue Description: ?? Soft, vital tissues. Sections/Proces sing: ??(T1) B - Labeled/Fixativ e: 34 cm, formalin. Qty/Size/Weight : ?Four, averaging 0.2 cm. Tissue Description: ?? Soft, vital tissues. Sections/Proces sing: ??(T1) C - Labeled/Fixativ e: 32 cm, formalin. Qty/Size/Weight : ?Three, averaging 0.2 cm. Tissue Description: ?? Soft, vital tissues. Sections/Proces sing: ??(T1) D - Labeled/Fixativ e: 30 cm, formalin. Qty/Size/Weight : ?Three, averaging 0.2 cm. Tissue Description: ?? Soft, vital tissues. Sections/Proces sing: ??(T1) E - Labeled/Fixativ e: 28 cm, formalin. Qty/Size/Weight : ?Five, averaging 0.2 cm. Tissue Description: ?? Soft, vital tissues. Sections/Proces sing: ??(T1) ??aje/JDK Microscopic Description Slides reviewed, microscopic description not recorded. 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 C - Esophagus, 32 cm; endoscopic biopsies: . 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 D - Esophagus, 30 cm; endoscopic biopsies: ?Foveolar mucosa with features of deep gland atypia with surface maturation (see Comment). E - Esophagus, 28 cm; endoscopic biopsies: ?Squamocolumna r junctional mucosa with goblet cell metaplasia, ?negative for dysplasia. CR-0 09/22/07 [facility] 09/29/07 Verified by: ? Sandy Taveras MD ?Pathologist ?(Electronic Signature) The attending pathologist whose signature appears on this report has reviewed all diagnostic slides and has edited the gross and/or microscopic portion of the report in rendering the final pathologic diagnosis. Comment The features are essentially those of high grade dysplasia, but with surface maturation. Close follow-up and re-biopsy is recommended, as a high proportion of cases with this feature harbor demetra annelise high grade dysplasia elsewhere. Dr. Jett Isbell has kindly reviewed this material and concurs with this interpretation. TJ MCBRIDE 09/19/2007 5:30 PM EST Sina Marina MD PATHOLOGY/CYTOLOGY O LEE ANN TJ MCBRIDE documented in this encounter Visit Diagnoses Not on filedocumented in this encounter Care Teams Electrical Engineer Relationship Specialty Start Date End Date Kennedi Shaver MD [address] [place] [address] PCP - General Family Medicine 08/02/20 06/24/24 documented as of this encounter
--- OUTSIDE RECORDS SUMMARY | 2024-09-11 15:31 | XMS_ITS ---
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
--- OUTSIDE RECORDS SUMMARY | 2024-09-11 15:31 | XMS_ITS | Encounter Summary ---
[place] [address] Care Team Providers Care Machine Engineer Name Role Phone Kennedi Shaver MD Primary Care Provider [phone] Encounter Details Date Type Department Care Team (Late st Contact Info) Description 09/14/2004 [place] [address] Bubba Barry MD GASTROENTEROLOGY Social History Tobacco Use Types Packs/Day Years Used Date Smoking Tobacco: Never Assessed IPV Inpatient Questions Answer Date Recorded Does [...] 4:30 PM EST Hospital En[place] [address] Lizet Wilkes MD [facility] [place] [address] 09/29/2024 4:30 PM EST - 09/29/2024 5:00 PM EST [place] [phone] Lizet Wilkes MD [facility] [place] [address] EGD, UPPER GI ENDOSCOPY (WRVU 2.09) 11/09/2024 10:00 AM EST Laboratory Appointment Lab at [facility] Hematology Oncology [address] [place] [phone] 11/09/2024 11:00 AM EST Office Visit Hematology [place] [phone] Faith Caba MD [facility] DR HEMATOLOG[place] [address] 11/09/2024 12:00 PM EST Appointment Hematology and Oncology at [place] [phone] Scheduled Procedures Name Priority Associated Diagnoses Date/Ti id EGD, UPPER GI ENDOSCOPY (WRVU 2.09) Gastroesophageal [...] Associated Diagnosis Comments SURGICAL PATHOLOGY REPORT Routine 09/14/2004 4:30 PM EST documented in this encounter Results * Surgical Pathology Report (09/14/2004 4:30 PM EST) Pathologist [facility] Surgical Pathology Report [id number] ? Location: The signing pathologist has (i) examined the relevant preparation(s) for the specimen(s) and (ii) rendered or confirmed the diagnosis(es). . ?Pathology Surgical Pathology Final Report Clinical Information Specimen Submitted: A - Biopsies at 37 cm. esophagus. B - Biopsies at 35 cm. esophagus. C - Biopsies at 33 cm. esophagus. D - Biopsies at 31 cm. esophagus. E - Biopsies at 29 cm. esophagus. F - Biopsies at 27 cm. esophagus. Clinical History: 58 Y.O.M. with apparent Sol's and esophagitis. ??C.D.: dysphagia. Gross Description A - Labeled/Fixative : Biopsies at 37 cm esophagus, formalin. Qty/Size/Weight: ?Two, averaging 0.3 x 0.2 x 0.2 cm. Tissue Description: ?? Soft, vital-pink tissue. Sections/Process ing: ??(T1) B - Labeled/Fixative : Biopsies at 35 cm esophagus, formalin. Qty/Size/Weight: ?Five, ranging from 0.2 cm to 0.4 cm in greatest ?dimension. Tissue Description: ?? Soft, vital-red tissue. Sections/Process ing: ??(T1) C - Labeled/Fixative : Biopsies at 33 cm, esophagus; formalin. Qty/Size/Weight: ?Four, ranging from 0.1 cm to 0.4 cm in greatest ?dimension. Tissue Description: ?? Soft, vital-red tissue. Sections/Process ing: ??(T1) D - Labeled/Fixative : Biopsies at 31 cm, esophagus; formalin. Qty/Size/Weight: ?Four, ranging from 0.2 cm to 0.4 cm. Tissue Description: ?? Soft, vital-red tissue. Sections/Process ing: ??(T1) E - Labeled/Fixative : Biopsy at 29 cm esophagus; formalin. Qty/Size/Weight: ?Four, averaging 0.3 x 0.3 x 0.2 cm. Tissue Description: ?? Soft, vital-red tissue. Sections/Process ing: ??(T1) F - Labeled/Fixative : Biopsies at 27 cm, formalin. Qty/Size/Weight: ?Three, averaging 0.3 x 0.2 x 0.1 cm. Tissue Description: ?? Soft, vital-red tissue. Sections/Process ing: ??(T1) ??aje/SNS Microscopic Description Slides reviewed, microscopic description not recorded. Diagnosis Endoscopic biopsies - . Diagnosis A. Gastric cardia mucosa with mild chronic nonspecific gastritis and regenerative foveolar hyperplasia. B. Sol's esophagus with active chronic inflammation and regenerative atypia. No dysplasia is seen. C,D,E. Sol's esophagus with chronic inflammation. Positive for low grade dysplasia. F. Squamous esophageal and specialized metaplastic columnar mucosa (Sol's esophagus) with ulceration. No dysplasia is seen. CR-0 09/15/04 AAS 09/19/04 Verified by: ? Mely Ayala MD ?Pathologist ?(Electronic Signature) The attending pathologist whose signature appears on this report has reviewed all diagnostic slides and has edited the gross and/or microscopic portion of the report in rendering the final pathologic diagnosis. Comment Additional levels examined. TJ JUNIORIUM 09/14/2004 4:30 PM EST Bubba Barry MD PATHOLOGY/CYTOLOGY ORDERABLES TJ MCBRIDE documented in this encounter Visit Diagnoses Not on filedocumented in this encounter Care Teams Machine Engineer Relationship Specialty Start Date End Date Kennedi Shaver MD [address] [place] [address] PCP - General Family Medicine 08/02/20 06/24/24 documented as of this encounter
--- OUTSIDE RECORDS SUMMARY | 2024-09-11 15:31 | XMS_ITS | Encounter Summary ---
Author Organization [facility] [place] [address] Care Team Providers Care Shot Dropper Name Role Phone Kennedi Shaver MD Primary Care Provider [phone] Reason for Visit * Reason Onset Date Comments Other 12/07/2011 returns pt call Encounter Details Date Type Department Care Team (Late st Contact Info) Description 12/07/2011 Telephone [place] [address] Nino Rocha MD [facility] [place] [address] Other (returns pt call) Social History Tobacco Use Types Packs/Day Years [...] encounter Miscellaneous Notes * Telephone Encounter - Kelsey Clark RN - 12/07/2011 3:21 PM EST Returned call to pt, left message on id'd machine to return call to motility nurses. documented in this encounter Plan of Treatment Upcoming Encounters Date Type Department Care Team (Latest Contact Info) Description 09/29/2024 4:30 PM EST Hospital En[place] [phone] Lizet Wilkes MD [facility] [place] [address] 09/29/2024 4:30 PM EST - 09/29/2024 5:00 PM EST [place] [phone] Lizet Wilkes MD [facility] [place] [address] EGD, UPPER GI ENDOSCOPY (WRVU 2.09) 11/09/2024 10:00 AM EST Laboratory Appointment Lab at [facility] Hematology Oncology [address] [place] [phone] 11/09/2024 11:00 AM EST Office Visit [place]ematology [place] [phone] Faith Caba MD [facility] DR HEMATOLOGY [place] [address] 11/09/2024 12:00 PM EST Appointment Hematology [place] [phone] Scheduled Procedures Name Priority Associated Diagnoses Date/Ti me EGD, UPPER GI ENDOSCOPY (WRVU 2.09) Gastroesophageal reflux disease with esophagitis, unspecified whether hemorrhage 09/29/2024 4:30 PM EST documented as of this encounter Visit Diagnoses Not on filedocumented in this encounter Care Teams Shot Dropper Relationship Specialty Start Date End Date Kennedi Shaver MD [address] [place] [address] PCP - General 08/22/10 08/01/20 documented as of this encounter
--- OUTSIDE RECORDS SUMMARY | 2024-09-11 15:31 | XMS_ITS | Encounter Summary ---
Author Organization [facility] [place] [address] Care Team Providers Care Room Service Supervisor Name Role Phone Kennedi Shaver MD Primary Care Provider Encounter Details Date Type Department Care Team (Latest Contact Info) Description 12/05/2010 2:45 PM EST - 12/05/2010 6:25 PM EST Hospital En[place] [address] Nino Rocha MD [facility] [place] [address] Discharge Disposition: Home Social History Tobacco Use Types Packs/Day Years Used Date Smoking Tobacco: Never Assessed Sex and Gender Information Value Date Recorded Sex Assigned at Not on file Gender Identity Not on file Sexual Orientation Not on file documented as of this encounter Medications at Time of Discharge Medication Sig Dispensed Refills Start Date End Date TAMSULOSIN HCL (FLOMAX ORAL) 12/05/2010 02/13/2011 ZOLPIDEM TARTRATE (AMBIEN ORAL) 12/05/2010 10/04/2020 pantoprazole (PROTONIX) 40 mg tablet 12/05/2010 04/19/2015 hydroCODone-acetaminophen (VICODIN) 5-500 mg per tablet 1 Tablet(s), PO, Q4-6H prn pain 12/05/2010 02/13/2011 documented as of this encounter Plan of Treatment Upcoming Encounters Date Type Department Care Team (Latest Contact Info) Description 09/29/2024 4:30 PM EST Hospital En[place] [address] Lizet Wilkes MD [facility] [place] [address] 09/29/2024 4:30 PM EST - 09/29/2024 5:00 PM EST [place] [phone] Lizet Wilkes MD [facility] [place] [address] EGD, UPPER GI ENDOSCOPY (WRVU 2.09) 11/09/2024 10:00 AM EST Laboratory Appointment Lab at [facility] [place] Hematology Oncology [address] [place] [phone] 11/09/2024 11:00 AM EST Office Visit Hematology [place] [phone] Faith Caba MD [facility] DR [place]EMATOLOG[place] [address] 11/09/2024 12:00 PM EST Appointment Hematology [place] [phone] Scheduled Procedures Name Priority Associated Diagnoses Date/Ti me EGD, UPPER GI ENDOSCOPY (WRVU 2.09) Gastroesophageal reflux disease with esophagitis, unspecified whether hemorrhage 09/29/2024 4:30 PM EST documented as of this encounter Visit Diagnoses Not on filedocumented in this encounter Active and Recently Administered Medications Care Teams Room Service Supervisor Relationship Specialty Start Date End Date Kennedi Shaver MD [address] [place] [address] PCP - General 08/22/10 08/01/20 documented as of this encounter
--- OUTSIDE RECORDS SUMMARY | 2024-09-11 15:31 | XMS_ITS | Encounter Summary ---
Author Organization [facility] [place] [address] Care Team Providers Care Cigarette Machine Operator Name Role Phone Kennedi Shaver MD Primary Care Provider [phone] Encounter Details Date Type Department Care Team (Late st Contact Info) Description 09/14/2009 Orders [place] [address] Nino Rocha MD [facility] [place] [address] Social History Tobacco Use Types Packs/Day Years Used Date Smoking Tobacco: Never Assessed [facility] Inpatient Questions Answer Date Recorded Does [...] 4:30 PM EST Hospital En[place] [address] Lizet Wilkes MD [facility] [place] [address] 09/29/2024 4:30 PM EST - 09/29/2024 5:00 PM EST Surgery Gastroenterology at [place] [phone] Lizet Wilkes MD [facility] [place] [address] EGD, UPPER GI ENDOSCOPY (WRVU 2.09) 11/09/2024 10:00 AM EST Laboratory Appointment Lab at [facility] Hematology Oncology [address] [place] [phone] 11/09/2024 11:00 AM EST Office Visit Hematology [place] [phone] Faith Caba MD [facility] DR HEMATOLOGY [place] [address] 11/09/2024 12:00 PM EST Appointment Hematology and Oncology at [place] [phone] Scheduled Procedures Name Priority Associated Diagnoses Date/Ti [...] Associated Diagnosis Comments SURGICAL PATHOLOGY REPORT Routine 09/14/2009 12:14 PM EST documented in this encounter Results * Surgical Pathology Report (09/14/2009 12:14 PM EST) Surgical Pathology Report [id number] ? Location: 4T The signing pathologist has (i) examined the relevant preparation(s) for the specimen(s) and (ii) rendered or confirmed the diagnosis(es). . ?Pathology Surgical Pathology Final Report Clinical Information Specimen Submitted: A - Polyp: Gastric polyps Clinical History: History of Sol's esophagus with HGD here for ablation gastric polyps biopsies Clinical Diagnosis: Sol's W/HGD Gross Description Labeled/Fixativ e: ? Polyp, gastric polyps; formalin. Qty/Size/Weight : ?Two, averaging 0.2 x 0.2 x 0.2 cm. Tissue Description: ?? Soft, vital tissues. Sections/Proces sing: ??(T1) ??vms/SHB Microscopic Description Slides reviewed, microscopic description not recorded. Diagnosis Gastric polyps: ?? Fundic gland polyps. CR-0 09/15/09 VMS 09/15/09 Verified by: ? Akilah MOON, Jett ?Pathologist ?(Electronic Signature) The attending pathologist whose signature appears on this report has reviewed all diagnostic slides and has edited the gross and/or microscopic portion of the report in rendering the final pathologic diagnosis. TJ MCBRIDE 09/14/2009 12:1 4 PM EST Nino Zarate MD PATHOLOGY/CYTOLO GY ORDERABLES TJ MCBRIDE documented in this encounter Visit Diagnoses Not on filedocumented in this encounter Care Teams Cigarette Machine Operator Relationship Specialty Start Date End Date Kennedi Shaver MD [address] [facility] [address] [place] [address] PCP - General Family Medicine 08/02/20 06/24/24 documented as of this encounter
--- OUTSIDE RECORDS SUMMARY | 2024-09-11 15:31 | XMS_ITS | Encounter Summary ---
Author Organization [facility] [place] [address] Care Team Providers Care Glass Etcher Name Role Phone Kennedi Shaver MD Primary Care Provider [phone] Encounter Details Date Type Department Care Team (Latest Contact Info) Description 02/13/2011 2:07 PM EDT - 02/13/2011 6:30 PM EDT Hospital [place] [address] Paula Rocha MD [facility] [place] [address] Discharge Disposition: Home Social History Tobacco Use [...] - 02/13/2011 6:12 PM EDT Saturday-Saturday Clinic [phone] 8a-5p Same Day Endo [phone] 7a-8p Otherwise contact [phone] and ask to speak to the vibration technician operations boardman * Patient Instructions* Paula Rocha MD - 02/13/2011 5:12 PM EDT Please see Recommendations in the Provation procedure report which is documented in the procedural note in E-DH. * Attachments The following attachments cannot be sent through Care Everywhere. * UPPER GI ENDOSCOPY: WHAT TO EXPECT AT HOME (LIBERIAN) documented in this encounter Medications at Time [...] Rocha MD - 02/13/2011 5:12 PM EDT [facility] [place] Patient Name: Chidi Carbone : [id number] MR#: [id number] Case Date: 02/13/2011 Surgeon: Surgeon(s) and Role: [...] [facility] Hospital [place] [address] Lizet Wilkes MD [facility] [place] [address] 09/29/2024 4:30 PM EST - 09/29/2024 5:00 PM EST Surgery Gastroenterology at [place] [phone] Lizet Wilkes MD [facility] [place] [address] EGD, UPPER GI ENDOSCOPY (WRVU 2.09) 11/09/2024 10:00 AM EST Laboratory Appointment Lab at [facility] Hematology Oncology [address] [place] [phone] 11/09/2024 11:00 AM EST Office Visit Hematology and Oncology at [place] [phone] Fiath Caba MD [facility] DR HEMATOLOGY [place] [address] 11/09/2024 12:00 PM EST Appointment Hematology and Oncology at [place] [phone] Scheduled Procedures Name Priority Associated Diagnoses Date/Ti [...] UPPER GI ENDOSCOPY (02/13/2011 4:39 PM EDT) [facility] UPPER GI ENDOSCOPY [facility] Endoscopy Patient Name: Chidi Carbone ? Procedure Date: 02/13/2011 04:39:14 PM ? Date of : 1945 ? Age: 65 ? Procedure: ? Upper GI endoscopy Indications: ? Follow-up of Sol's esophagus Providers: ? Paula Rocha MD, Dinora ? Mary, RN, Yarelis Wise, Recycle Worker Referring MD: ?Kennedi Shaver MD Medicines: ? [...] Call for questions or concerns to ? [phone]. ? Paula Rocha MD Signed Date: 02/13/2011 [...] Sat02/13/11 at 1642, Itching, Intra-Operative (Intra-Procedure), Routine 1641 (Given - Provid er: Dinora Hernandez RN) fentaNYL 50mcg/mL injection (COMPLETED) ONCE PRN, 1 dose, Starting on Sat02/13/11 at 1642, Until Sat02/13/11 at 1642, Pain, Intra-Operative (Intra-Procedure), Routine 1641 (Given - Provid er: Dinora Hernandez RN) fentaNYL 50mcg/mL injection (COMPLETED) Intravenous, ONCE PRN, 1 dose, Starting on Sat02/13/11 at 1646, Until Sat02/13/11 at 1646, Pain, Intra-Operative (Intra-Procedure), Routine 1645 (Given - Provid er: Dinora Hernandez RN) fentaNYL 50mcg/mL injection (COMPLETED) Intravenous, ONCE PRN, 1 dose, Starting on Sat02/13/11 at 1650, Until Sat02/13/11 at 1650, Pain, Intra-Operative (Intra-Procedure), Routine 1649 (Given - Provid er: Dinora Hernandez RN) fentaNYL 50mcg/mL injection (COMPLETED) Intravenous, ONCE PRN, 1 dose, Starting on Sat02/13/11 at 1657, Until Sat02/13/11 at 1657, Pain, Intra-Operative (Intra-Procedure), Routine 1656 (Given - Provid er: Dinora Hernandez RN) midazolam (VERSED) injection (COMPLETED) ONCE PRN, 1 dose, Starting on Sat02/13/11 at 1642, Until Sat02/13/11 at 1642, Sleep, Intra-Operative (Intra-Procedure), Routine 1641 (Given - Provid er: Dinora Hernandez RN) midazolam (VERSED) injection (COMPLETED) Intravenous, ONCE PRN, 1 dose, Starting on Sat02/13/11 at 1646, Until Sat02/13/11 at 1646, Sleep, Intra-Operative (Intra-Procedure), Routine 1645 (Given - Provid er: Dinora Hernandez RN) midazolam (VERSED) injection (COMPLETED) Intravenous, ONCE PRN, 1 dose, Starting on Sat02/13/11 at 1650, Until Sat02/13/11 at 1650, Sleep, Intra-Operative (Intra-Procedure), Routine 1650 (Given - Provid er: Dinora Hernandez RN) midazolam (VERSED) injection (COMPLETED) Intravenous, ONCE PRN, 1 dose, Starting on Sat02/13/11 at 1657, Until Sat02/13/11 at 1657, Sleep, Intra-Operative (Intra-Procedure), Routine 165 (Given - Provid er: Dinora Hernandez RN) midazolam (VERSED) injection (COMPLETED) Intravenous, ONCE PRN, 1 dose, Starting on Sat02/13/11 at 1700, Until Sat02/13/11 at 1700, Sleep, Intra-Operative (Intra-Procedure), Routine 1700 (Given - Provid er: Dinora Hernandez RN) documented in this encounter Care Teams Glass Etcher Relationship Specialty Start Date End Date Kennedi Shaver MD [facility] [address] [place] [address] PCP - General 08/22/10 08/01/20 documented as of this encounter
--- OUTSIDE RECORDS SUMMARY | 2024-09-11 15:31 | XMS_ITS | Encounter Summary ---
Author Organization [facility] Address [address] [place] [address] Care Team Providers Care Machine Builder Name Role Phone Unavailable Primary Care Provider Unavailabl e Encounter Details Date Type Department Care Team (Late st Contact Info) Description 05/03/2005 Results Only [facility] [address] [place] [address] Kennedi Shaver MD [address] [facility] [address] [place] [phone] Social History Tobacco Use Types Packs/Day Years [...] Date/Time Associated Diagnosis Comments SURGICAL PATHOLOGY Routine 05/03/2005 0:00 EDT documented in this encounter Results * SURGICAL PATHOLOGY (05/03/2005 0:00 EDT) Pathology Report: SURGICAL PATHOLOGY REPORT Reports generated via electronic interface contain original data; however they are lacking the format of the original report. Caution should be taken when reading/interpreti ng unformatted reports. Name: ? CHIDI CARBONE ? Accession #: ? [id number] ? : ? 1945 (Age: 59) ??M ? Collect Date: ? 05/03/2005 ? Location: ? [facility] ? Receive Date: ? 05/04/2005 ? Provider: KENNEDI SHAVER MD Copy to: ? Final Pathologic Diagnosis: ? Skin of forearm, right, shave biopsy: - Features suggestive of benign keratosis. ??See comment. Comment: ? The majority of the specimen consists of stratum corneum thickened by parakeratosis and crust. ??There is a small portion of viable epidermis that shows features suggestive of benign keratosis (seborrheic keratosis versus verruca vulgaris). ??Definitive diagnosis is precluded by the paucity of viable tissue present. ??(Dr. Hart)/[facility] Microscopic Description: ? Sections consist of a small fragmented portion of skin that consists primarily of stratum corneum. ??The stratum corneum is thickened by orthohyperkeratosi s with foci of parakeratosis and intracorneal hemorrhage. Only a small portion of viable epidermis is represented and shows mild acanthosis and reactive changes. ??There are areas of necrotic epidermis with underlying dermal edema, degeneration, and hemorrhage. (Dr. Hart)/[facility] Document reviewed and electronically signed by: CHRISTELLE HART MD Report ??Date: 05/07/2005 16:44 By the signature above, the attending physician certifies that he/she has personally conducted a gross and/or microscopic examination of the described specimens and rendered or confirmed the above diagnosis. Specimen(s) Received: ? Skin tag R forearm Clinical History: ? Not listed Gross Description: ? Received in formalin labelled Holaday and skin tag R forearm is a 0.4 x 0.3 x 0.2 cm shave biopsy of marroquin skin. ??The specimen is bisected and submitted entirely in one cassette. ??(Dr. Christie)/[facility] End of Report ANISHA ALBRIGHT 05/03/2005 05/04/2005 8:2 6 EDT us Kennedi Shaver MD PATHOLOGY ORDERABLES Final Resul t Performing Organization Address City/State/[facility] Co de Phone Number ANISHA [address] [address] documented in this encounter Visit Diagnoses Not on filedocumented in this encounter
[2024-09-11 19:41] LABS: HCT 33.2 % (40.0-50.0); HGB 10.2 g/dL (13.5-17.5); MCHC 30.7 % (32.0-36.0); MCV 85 fL (80-95); MPV 9.7 fL (8.0-11.0); Platelet Count 405 10^3/uL (130-400); RBC 3.92 10^6/uL (4.36-5.78); RDW 14.7 % (11.8-14.1); RDW-SD 45.5 fL; WBC 10.45 10^3/uL (4.4-10.8)
[2024-09-11 20:30] LABS: Iron 19 ug/dL (65-175); Total Iron Binding Capacity 385 ug/dL (250-450); Transferrin Sat 5 % (20-55)
[2024-09-11 20:49] LABS: Ferritin 37 ng/mL (26-388); Vitamin B12 1164 pg/mL (193-986)
== END 2024-09-11 15:16 | disposition home or self-care (01) ==
LOC: NCHCN 15:15
PROVIDERS: PCP Family Medicine; Visit Provider Family Medicine
DX: D64.9 Anemia, unspecified (principal)
CPT/HCPCS: 85027; 82607; 82728; 83540; 83550

== ENCOUNTER 2024-12-28 12:21 | Outpatient (REF) | payer MEDICARE, OTHER, SELFPAY ==
[2024-12-28 16:00] LABS: HCT 37.7 % (40.0-50.0); HGB 12.1 g/dL (13.5-17.5); MCHC 32.1 % (32.0-36.0); MCV 90 fL (80-95); MPV 9.4 fL (8.0-11.0); Platelet Count 401 10^3/uL (130-400); RBC 4.17 10^6/uL (4.36-5.78); RDW 14.2 % (11.8-14.1); RDW-SD 47.5 fL; WBC 8.77 10^3/uL (4.4-10.8)
[2024-12-28 16:56] LABS: Ferritin 82 ng/mL (26-388); Vitamin B12 586 pg/mL (193-986)
== END 2024-12-28 12:22 | disposition home or self-care (01) ==
LOC: NCHCN 12:21
PROVIDERS: PCP Family Medicine; Visit Provider Family Medicine
DX: D50.9 Iron deficiency anemia, unspecified (principal)
CPT/HCPCS: 85027; 82607; 82728

== ENCOUNTER 2025-03-12 12:46 | Outpatient (REF) | payer MEDICARE, OTHER, SELFPAY ==
[2025-03-12 15:35] LABS: HCT 33.8 % (40.0-50.0); HGB 10.6 g/dL (13.5-17.5); MCH 28.2 pg (27.0-33.0); MCHC 31.4 % (32.0-36.0); MCV 90 fL (80-95); MPV 9.6 fL (8.0-11.0); Platelet Count 354 10^3/uL (130-400); RBC 3.76 10^6/uL (4.36-5.78); RDW-SD 45.6 fL; WBC 8.82 10^3/uL (4.4-10.8)
[2025-03-12 16:21] LABS: Ferritin 106 ng/mL (26-388); Vitamin B12 492 pg/mL (193-986)
== END 2025-03-12 12:47 | disposition home or self-care (01) ==
LOC: NCHCN 12:46
PROVIDERS: PCP Family Medicine; Visit Provider Family Medicine
DX: D50.9 Iron deficiency anemia, unspecified (principal)
CPT/HCPCS: 85027; 82607; 82728